=== PATIENT | female | born 1945 | race Caucasian/White ===

== ENCOUNTER 2020-10-01 12:25 | Outpatient (REF) | payer MEDICARE, OTHER, SELFPAY ==
[2020-10-01 14:40] LABS: HCT 40.9 % (36.0-46.0); HGB 13.4 g/dL (11.2-15.7); MCH 30.7 pg (27.0-33.0); MCHC 32.8 % (32.0-36.0); MCV 93.6 fL (80-95); MPV 10.4 fL (8.0-11.0); Platelet Count 300 10^3/uL (130-400); RBC 4.37 10^6/uL (3.93-5.22); RDW 13.5 % (11.7-14.6); RDW-SD 46.8 fL; WBC 7.02 10^3/uL (4.4-10.8)
[2020-10-01 15:03] LABS: Anion Gap 7.2 mmol/L (3-11); BUN 16 mg/dL (7-18); CO2 28.8 mmol/L (21.0-32.0); CREATININE 0.8 mg/dL (0.55-1.02); Calcium 9.1 mg/dL (8.5-10.1); Chloride 103 mmol/L (98-107); Glucose 76 mg/dL (74-106); Potassium 4.3 mmol/L (3.5-5.1); Sodium 139 mmol/L (136-145)
[2020-10-01 15:16] LABS: Bilirubin Negative (Negative); Blood Negative (Negative); Clarity Clear (Clear); Glucose Negative (Negative); Ketones Negative (Negative); Leukocyte Esterase Negative (Negative); Nitrite Negative (Negative); Specific Gravity 1.015 (1.005-1.025); Urobilinogen 0.2 EU/dL (Up TO 0.2); pH 6.5 (5-8)
== END 2020-10-01 12:26 | disposition home or self-care (01) ==
LOC: LBN 12:25
PROVIDERS: Visit Provider Family Medicine
DX: K92.1 Melena (principal); R31.9 Hematuria, unspecified
CPT/HCPCS: 80048; 85027; 81003

== ENCOUNTER 2021-01-02 15:20 | Outpatient (REF) | payer MEDICARE, OTHER, SELFPAY ==
[2021-01-02 15:17] LABS: HCT 37.8 % (36.0-46.0); MCH 30.1 pg (27.0-33.0); MCHC 31.7 % (32.0-36.0); MCV 94.7 fL (80-95); MPV 9.7 fL (8.0-11.0); Platelet Count 499 10^3/uL (130-400); RBC 3.99 10^6/uL (3.93-5.22); RDW 13.9 % (11.7-14.6); RDW-SD 48.3 fL; WBC 8.59 10^3/uL (4.4-10.8)
[2021-01-02 15:51] LABS: Anion Gap 5.6 mmol/L (3-11); BUN 19 mg/dL (7-18); CO2 30.4 mmol/L (21.0-32.0); CREATININE 0.8 mg/dL (0.55-1.02); Calcium 9.6 mg/dL (8.5-10.1); Chloride 105 mmol/L (98-107); Glucose 90 mg/dL (74-106); Potassium 5.4 mmol/L (3.5-5.1); Sodium 141 mmol/L (136-145); TSH (W/Ref FT4) 1.74 uIU/mL (0.36-3.74)
== END 2021-01-02 15:21 | disposition home or self-care (01) ==
LOC: NCHCN 15:20
PROVIDERS: Visit Provider Family Medicine
DX: R00.2 Palpitations (principal)
CPT/HCPCS: 80048; 85027; 84443

== ENCOUNTER 2021-01-22 11:43 | Outpatient (RCR) | payer MEDICARE, OTHER, SELFPAY ==
--- OUTSIDE RECORDS SUMMARY | 2021-01-22 11:46 | XMS_ITS ---
:1945 Author Care Team Providers Name Role Phone DR. ELBA MARIANO Primary Care Provider [phone] DR. ELBA MARIANO Referring Provider [phone] Allergies Code Code System Name Reaction Severity Status Onset Opioids - ? ? Active ? Morphine Analogues 79648 RxNorm Percocet ? ? Active ? Medications Name Status Start Date Stop Date ? ? amoxicillin 500 mg capsule Unknown ? Not a vailable amoxicillin 500 mg-potassium Unknown ? Not available clavulanate 125 mg tablet amoxicillin 875 mg tablet Unknown ? Not av ailable amoxicillin 875 mg-potassium Active ? Not available clavulanate 125 mg tablet aspirin Completed ? 01/24/2019 budesonide 0.5 mg/2 mL suspension for Active ? Not available nebulization Carac 0.5 % topical cream Unknown ? Not av ailable ciprofloxacin 250 mg tablet Active ? Not available ciprofloxacin 500 mg tablet Active ? Not available clonazepam 0.5 mg tablet Active ? Not josefina ilable diclofenac 3 % topical gel Active ? Not a vailable doxepin 10 mg capsule Active ? Not availa ble fluorouracil 5 % topical cream Completed ? 1 03/07/2016 Fluvirin 4765-3831 45 mcg (15 mcg x Unknown ? Not available 3)/0.5 mL intramuscular suspension hydromorphone 2 mg tablet Completed ? 2016 metronidazole 250 mg tablet Completed ? 04/15 metronidazole 500 mg tablet Active ? Not available mirtazapine 15 mg tablet Completed ? 017 omega 3 183.3 mg-dha 75 mg-epa 91.6 mg-fish oil 306 mg capsule A ctive ? Not available Take by oral route. Suprep Bowel Prep Kit 17.5 gram-3.13 Completed ? 01/24/2019 gram-1.6 gram oral solution tobramycin 0.3 %-dexamethasone 0.1 % Active ? Not available eye drops,suspension trazodone 50 mg tablet Completed ? 7 valacyclovir 1 gram tablet Completed ? 01/05 venlafaxine ER 37.5 mg capsule,extended Unknown ? Not available release 24 hr Voltaren 1 % topical gel Unknown ? Not josefina ilable zolpidem 5 mg tablet Unknown ? Not availab le Notes: TUMERIC, VITAMIN D , YESSY MIN B Problems Name Status Onset Date Source ? 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 Plantar Fascial Fibromatosis Active ? Enc ounter Sprain of Foot Active ? Encounter Inflammatory Disorder of Extremity Active ? Encounter Procedures Date Name Performed by ? 02/14/2006 Other Information not avai lable Notes: RIGHT SHLDER 02/15/1996 Knee Surgery Information not avai lable Notes: RIGHT 07/14/2016 XR, Foot, 3 or More View Information not available Results Lab Results None recorded. Past Encounters 12/05/2019 Bunion; Abduction Deformity of Foot; Hyp ermobility Syndrome Bartolome Livingston, DPM: [address] [place] [address], Ph. [phone] Social History Tobacco Smoking Status Never Smoker Vaccine List None recorded. Plan of Care Reminders Provider Appointments None ? ? recorded. Lab None ? ? recorded. Referral None ? ? recorded. Procedures None ? ? recorded. Surgeries None ? ? recorded. Imaging None ? ? recorded. Vitals 03/22/2019 02:00PM Established Patient 15 Height Weight BMI 67 in 126 lbs 16 oz 19.9 kg/m2 01/24/2019 01:30PM Established Patient 15 Height Weight BMI 67 in 126 lbs 16 oz 19.9 kg/m2 05/10/2018 02:30PM Established Patient 30 Height Weight BMI 67 in 126 lbs 16 oz 19.9 kg/m2 01/05/2017 02:00PM Established Patient 30 Height Weight BMI 67 in 130 lbs 20.4 kg/m2 09/15/2016 11:30AM Established Patient 30 Height Weight BMI 67 in 130 lbs 20.4 kg/m2 07/14/2016 02:30PM New Patient 30 Height Weight BMI 67 in 130 lbs 20.4 kg/m2 06/05/2012 02:00PM Established Patient 30 Height Weight BMI 68 in 125 lbs 19 kg/m2 12/17/2010 01:00PM Established Patient 30 Height Weight BMI 68 in 128 lbs 19.5 kg/m2
--- OUTSIDE RECORDS SUMMARY | 2021-01-22 11:46 | XMS_ITS ---
:1945 Author Care Team Providers Name Role Phone Sorin Oleary Primary Care Provider Unavailable Allergies Code Code System Name Reaction Severity Status Onset Opioids - ? ? Active ? Morphine Analogues Medications Name Status Start Date Stop Date ? ? amoxicillin 875 mg-potassium clavulanate Active ? Not available 125 mg tablet Aspir-81 Active ? Not available azithromycin 250 mg tablet Unknown ? Not a vailable clonazepam 0.5 mg tablet Unknown ? Not josefina ilable doxepin 10 mg capsule Active ? Not availa ble erythromycin 5 mg/gram (0.5 %) eye Unknown ? Not available ointment escitalopram 10 mg tablet Unknown ? Not av ailable Fish Oil Active ? Not available mirtazapine 15 mg tablet Unknown ? Not josefina ilable Multi Vitamin Active ? Not available valacyclovir 1 gram tablet Unknown ? Not a vailable vitamin B complex Active ? Not available Vitamin D3 Active ? Not available Voltaren 1 % topical gel Active ? Not josefina ilable Problems Name Status Onset Date Source ? Shoulder Pain Active ? 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 Encounter Disorder of Rotator Cuff Active ? ? Procedures Date Name Performed by ? 02/14/2007 Orthopaedic Surgery Information not betzaida labbrittanie Notes: Rt shldr 02/14/2007 Orthopaedic Surgery Information not angelicaai lable Notes: Rt knee 03/10/2015 MRI, Shoulder [facility] [address] [place], [place] [id number] (Work Place) 03/18/2015 Bone Density Study Information not avai lable 04/24/2015 MRI, Shoulder [facility] [address] [place] [address] (Work Place) Results Lab Results None recorded. Past Encounters None recorded. Social History Tobacco Smoking Status Never Smoker Vaccine List None recorded. Plan of Care Reminders Provider Appointments None ? ? recorded. Lab None ? ? recorded. Referral None ? ? recorded. Procedures None ? ? recorded. Surgeries None ? ? recorded. Imaging None ? ? recorded. Vitals 04/29/2015 09:30AM Established Patient Height Weight BMI 5 ft 7 in 130 lbs 20.4 kg/m2 03/18/2015 09:15AM Established Patient Height Weight BMI 5 ft 8 in 132 lbs 20.1 kg/m2 03/10/2015 10:45AM NEW PATIENT Height Weight BMI 5 ft 8 in 133 lbs 20.2 kg/m2
--- OUTSIDE RECORDS SUMMARY | 2021-01-22 11:46 | XMS_ITS ---
:1945 Author Care Team Providers Name Role Phone DR. MARILUZ VELEZ Primary Care Provider [phone] MARILUZ VELEZ Referring Provider [phone] Allergies Code Code System Name Reaction Severity Status Onset Opioids - ? ? Active ? Morphine Analogues Notes: 08/02/2013: sensitive to narcotics (Active) 08/02/2013; Comment: Recorded 08/02/2013 9:53AM by Andre Dawn, Office Visit; Promoted; Significance:*; Medications Name Status Start Date Stop Date ? ? amoxicillin 875 mg-potassium Completed ? 12/2018 clavulanate 125 mg tablet clonazepam 0.5 mg tablet Completed ? 019 diclofenac 3 % topical gel Active ? Not a vailable doxepin 10 mg capsule Active ? Not availa ble metronidazole 250 mg tablet Completed ? 12/15 Remeron Active ? Not available Suprep Bowel Prep Kit 17.5 gram-3.13 Completed ? 12/25/2018 gram-1.6 gram oral solution Problems Name Status Onset Date Source ? History of Section Active 08/08/2006 Hist ory Osteoarthritis Active 08/02/2013 History Backache Active 08/02/2013 History Procedures None recorded. Results Lab Results None recorded. Past Encounters None recorded. Social History Tobacco Smoking Status Former Smoker Vaccine List None recorded. Plan of Care Reminders Provider Appointments None ? ? recorded. Lab None ? ? recorded. Referral None ? ? recorded. Procedures None ? ? recorded. Surgeries None ? ? recorded. Imaging None ? ? recorded. Vitals 02/06/2019 10:45AM OP/ANTIQUE FINISHER Height Weight BMI 5 ft 7.5 in 130 lbs 20.1 kg/m2 12/25/2018 01:45PM ANTIQUE FINISHER 15 Height Weight BMI 5 ft 7.5 in 128 lbs 19.8 kg/m2
--- NOTE | 2021-01-22 15:30 | HOLTER_ITS ---
APPROVED REPORT Conclusion This is a 48-hour Holter monitor Predominant rhythm was sinus with an average heart rate of 77. Minimum was 59, maximum 111 There were very rare atrial premature beats There were occasional ventricular ectopic beats, rare couplets, no ventricular tachycardia There was no atrial fibrillation, no high-grade AV block, no pauses greater than 3 seconds The patient diary was not returned
== END 2021-02-13 23:59 | disposition home or self-care (01) ==
LOC: RT 11:43
PROVIDERS: Visit Provider Family Medicine
DX: R00.2 Palpitations (principal); I49.3 Ventricular premature depolarization
CPT/HCPCS: 93227; 93225; 93226

== ENCOUNTER 2021-02-12 18:18 | Outpatient (REF) | payer MEDICARE, OTHER, SELFPAY ==
[2021-02-12 19:36] LABS: Anion Gap 4.6 mmol/L (3-11); BUN 17 mg/dL (7-18); CO2 32.4 mmol/L (21.0-32.0); CREATININE 0.7 mg/dL (0.55-1.02); Chloride 103 mmol/L (98-107); Glucose 61 mg/dL (74-106); Potassium 4.1 mmol/L (3.5-5.1); Sodium 140 mmol/L (136-145)
== END 2021-02-12 18:19 | disposition home or self-care (01) ==
LOC: NCHCN 18:18
PROVIDERS: Visit Provider Family Medicine
DX: R00.2 Palpitations (principal)
CPT/HCPCS: 80048

== ENCOUNTER 2021-02-18 13:52 | Emergency (ER) | payer MEDICARE, OTHER, SELFPAY ==
[2021-02-18 13:58] VITALS: BP 104/69; PULSE 75; RESP 14; TEMP 36.7
--- NOTE | 2021-02-18 14:17 | ED.GENADUL_ITS ---
Discharge Plan Disposition Patient Disposition: HOME Condition: Stable Discharge Details Clinical Impression: Finger laceration Primary Care Provider: Alaina,Local ED Provider: Chino Mayorga Home Meds and New Rx's Prescriptions: Continued ibuprofen 600 MG tablet 600 mg PO TID PRN (Reason: Pain) Qty: 20 RF: 0 Discharge Instructions Instructions: Finger Laceration (ED) Additional Instructions: At this time your wound has stopped bleeding and you have declined sutures. Please wear antibiotic dressing and change it daily. Wear splint to avoid bending your finger and tearing open the laceration. Watch for new or worsening symptoms and return to the ER for any concerns Medical Decision Making 76-year-old female presents to the ER for a right index finger laceration. Bleeding is now controlled and she has no additional concerns or complaints. Patient states that given the bleeding is controlled now she does not want sutures. Tetanus status is up-to-date Patient understands that laceration could reopen without proper closure which could delay healing and in turn also increased chance of infection. Patient u nderstands but does not want sutures. The wound was thoroughly cleaned and irrigated. We then placed an antibiotic pressure dressing and finger splint. Patient tolerated well. No additional questions or concerns. Standard discharge and return precautions were were provided This documentation was generated using Nymirum dictation system, please disregard any oddities of phrase or misspellings. Medical Records Medical records reviewed: Yes I reviewed the patient's medical records. HPI General Mode of arrival: ambulatory . Date/Time Provider Initiated Documentation: 02/18/21 14:07 . Limitations to Documentation: no limitations . Information obtained by: patient . HPI Narrative: This is a 76-year-old female, [id number], tetanus status up-to-date, presenting to the ER for evaluation of a right index finger laceration. Patient states that she lacerated her finger on her 's razor roughly 2 hours ago. Reports minimal discomfort. States that she came to the ER because she was having difficulty controlling the bleeding but it is actually stopped bleeding at this time. Denies any other injury, numbness, tingling, weakness. Has not taken any medication prior to arrival Related Data Home Medications Medication Instructions Recorded Confirmed ibuprofen 600 mg PO TID PRN #20 tab 08/15/16 Previous Rx's Medication Instructions Recorded ibuprofen 600 mg PO TID PRN #20 tab 08/15/16 Allergies Allergy/AdvReac Type Severity Reaction Status Date / Time Opioids - Morphine Analogues Allergy Unverified 08/15/16 05:18 Opioids-Meperidine and Allergy Unverified 08/15/16 05:18 Related General Stated Complaint: Laceration DEBBI: 4 Review of Systems Constitutional Constitutional: Denies weakness Musculoskeletal Musculoskeletal: Denies arthralgias, Denies numbness, Denies stiffness and Denies tingling Integumentary/Breasts Skin/Breast: Denies erythema Neurologic Neurologic: Denies numbness, Denies tingling and Denies weakness PFSH All Active Problems Finger laceration (Acute) Social History Smoking/Tobacco Use Status: Never Smoking risk assessment performed?: Yes Alcohol Intake: former Drug use: Never Do you feel safe at home: Yes Do you feel safe in your relationship?: Yes Exam Const General: cooperative, healthy appearing, comfortable and no acute distress Orientation: alert and awake [facility] Head: normal to inspection, normocephalic and atraumatic Eyes General: appearance normal, both eyes and all related structures Conjunctivae: conjunctivae normal Neck Neck: normal visual inspection, trachea midline and supple Resp Effort & Inspection: normal respiratory effort and able to speak in complete sentences Cardio Rate: regular rate Rhythm: regular rhythm Skin General skin exam: no rashes or lesions noted Neuro General: patient alert, patient awake, moves all extremities and no focal motor deficits Speech: speech normal Gait: normal gait Sensory Exam: no sensory deficits noted Extrem General: full ROM and capillary refill normal Hand/finger images: 1. 1 cm well approximated flap laceration. No active bleeding. Only minimal discomfort. Full range of motion, neuro, vascular, tendon intact. Normal capil leonor refill Psych Appearance: grossly normal Mental Status: mental status grossly normal Course Vital Signs Vital signs: Vital Signs Temperature 36.7 C 02/18/21 13:58 Pulse 75 02/18/21 13:58 Respiratory Rate 14 02/18/21 13:58 Blood Pressure 104/69 02/18/21 13:58 Temperature 36.7 C 02/18/21 13:58 Temperature Source Oral 02/18/21 13:58 Pulse 75 02/18/21 13:58 Respiratory Rate 14 02/18/21 13:58 Respiratory Effort 02/18/21 14:08 Blood Pressure 104/69 02/18/21 13:58 Blood Pressure Position Sitting 02/18/21 13:58 Oxygen Delivery Method Room Air 02/18/21 13:58 Oxygen Flow Rate 0 02/18/21 13:58 Pain Level 0 02/18/21 14:12 PAWSS Have you Been Recently Intoxicated or Drunk Within the Last 30 days?: Yes Have you Ever Experienced Previous Episodes of Alcohol Withdrawal?: No Have you ever Experienced Withdrawal Seizures?: No Have you ever Experienced Delirium Tremens(DT)s?: No Have you ever undergone Alcohol Rehabilitation Treatment (i.e, inpt ot outpatient treatment programs)?: No Have you ever Experienced Blackouts?: No Have you ever Combined Alcohol with other Downers within the last 90 days?: No Have you ever Combined Alcohol with any other Substance of Abuse during the last 90 days?: No Positive Blood Alcohol level on Presentation? [PCS.BAL]: No Evidence of Increased Autonomic Activity (i.e. HR>120, tremor, sweating, agitation, nausea)?: No Result: 1
== END 2021-02-18 14:52 | disposition home or self-care (01) ==
PROVIDERS: Emergency Provider Physician Assistant
DX: S61.210A Laceration without foreign body of right index finger without damage to nail, initial encounter (principal); W26.8XXA Contact with other sharp object(s), not elsewhere classified, initial encounter
CPT/HCPCS: 29130; 99283; 99282

== ENCOUNTER 2021-07-22 20:12 | Outpatient (REF) | payer MEDICARE, OTHER, SELFPAY ==
--- OUTSIDE RECORDS SUMMARY | 2021-07-22 20:16 | XMS_ITS | Encounter Summary ---
:1945 Author Organization [facility] Address [address] [facility], [address] [place] [address] Care Team Providers Name Role Phone Kevin Miranda MD Primary Care Provider Encounter Details Date Type Department Care Team Description 11/19/2020 Scan Document - View Paula Funk, in Chart Practice [address] [place], [place] [id number] [place], [place] [phone] Social History Tobacco Use Types Packs/Day Years Used Date Former Smoker Smokeless Tobacco: Never Used Alcohol Use Standard Drinks/Week Comments Yes 5 (1 standard drink = 0.6 oz pure alcoho l) Sex Assigned at Date Recorded Female 04/12/2019 2:19 PM EST documented as of this encounter Plan of Treatment Not on filedocumented as of this encounter Visit Diagnoses Not on filedocumented in this encounter Care Teams Hospital Insurance Representative Relationship Specialty Start Date End Date Kevin Miranda MD PCP - General Family Medicine 11/20/[address] [place] [address] documented as of this encounter
--- OUTSIDE RECORDS SUMMARY | 2021-07-22 20:16 | XMS_ITS | Encounter Summary ---
:1945 Author Organization [facility] Address [address] [facility], [address] [place] [address] Care Team Providers Name Role Phone Kevin Miranda MD Primary Care Provider Encounter Details Date Type Department Care Team Description 08/14/2020 Telephone [facility] Pr actice Hanh Kelly [place] [address] [place] [address] Social History Tobacco Use Types Packs/Day Years Used Date Former Smoker Smokeless Tobacco: Never Used Alcohol Use Standard Drinks/Week Comments Yes 5 (1 standard drink = 0.6 oz pure alcoho l) Sex Assigned at Date Recorded Female 04/12/2019 2:19 PM EST documented as of this encounter Miscellaneous Notes Telephone Encounter - Hanh Kelly MA - 08/14/2020 9:20 AM EDT spk with patient about her recent Mammo It was negative for malignancy (normal). There were some benign calcifications and dense breasts noted, similar to the past. documented in this encounter Plan of Treatment Not on filedocumented as of this encounter Visit Diagnoses Not on filedocumented in this encounter Care Teams Manager Fiber Relationship Specialty Start Date End Date Kevin Miranda MD PCP - General Family Medicine 11/20/19 [address] [place] [address] documented as of this encounter
--- OUTSIDE RECORDS SUMMARY | 2021-07-22 20:16 | XMS_ITS | Encounter Summary ---
:1945 Author Organization [facility] Address [address] [facility], [address] [place] [address] Care Team Providers Name Role Phone Kevin Miranda MD Primary Care Provider Encounter Details Date Type Department Care Team Description 09/10/2020 Scan Document - View [facility] Kevin Miranda, in Chart Practice [address] [place], [place] [address] [place], [place] [phone] Social History Tobacco Use Types Packs/Day Years [...] on filedocumented in this encounter Care Teams Board Winder Relationship Specialty Start Date End Date Kevin Miranda MD PCP - General Family Medicine 11/20/[address] [place] [address] documented as of this encounter
--- OUTSIDE RECORDS SUMMARY | 2021-07-22 20:16 | XMS_ITS | Encounter Summary ---
:1945 Author Organization [facility] Address [address] [facility], [address] [place] [address] Care Team Providers Name Role Phone Kevin Miranda MD Primary Care Provider Encounter Details Date Type Department Care Team Description 12/07/2020 Scan Document - View [facility]aus[facility]ik [facility] Kevin Miranda, in Chart Practice [address] [place], [place] [address] [place], [place] [phone] Social History Tobacco Use Types Packs/Day Years [...] on filedocumented in this encounter Care Teams Crab Fisherman Relationship Specialty Start Date End Date Kevin Miranda MD PCP - General Family Medicine 11/20/[address] [place] [address] documented as of this encounter
--- OUTSIDE RECORDS SUMMARY | 2021-07-22 20:16 | XMS_ITS | Encounter Summary ---
:1945 Author Organization [facility] Address [address] [facility], [address] [place] [address] Care Team Providers Name Role Phone Kevin Miranda MD Primary Care Provider Encounter Details Date Type Department Care Team Description 04/02/2021 Refill [facility] Pr actice Kevin Miranda MD [address] [place] [address] [place] [address] [phone] (Wo rk) Social History Tobacco Use Types Packs/Day Years [...] on filedocumented in this encounter Care Teams Torch Cutter Relationship Specialty Start Date End Date Kevin Miranda MD PCP - General Family Medicine 11/20/[address] [place] [address] documented as of this encounter
--- OUTSIDE RECORDS SUMMARY | 2021-07-22 20:16 | XMS_ITS | Encounter Summary ---
:1945 Author Organization [facility] Address [address] [facility], [address] [place] [address] Care Team Providers Name Role Phone Kevin Miranda MD Primary Care Provider Encounter Details Date Type Department Care Team Description 01/27/2021 Orders Only [facility] actice Provider, MD Harsh [address] [place], [place] [address] [place] [address] [phone] Social History Tobacco Use Types Packs/Day Years Used Date Former Smoker Smokeless Tobacco: Never Used Alcohol Use Standard Drinks/Week Comments Yes 5 (1 standard drink = 0.6 oz pure alcoho l) Sex Assigned at Date Recorded Female 04/12/2019 2:19 PM EST documented as of this encounter Plan of Treatment Not on filedocumented as of this encounter Procedures Procedure Name Priority Date/Time Associated Diagnosis Comme nts MAMMOGRAPHY Routine 07/29/2020 documented in this encounter Results MAMMOGRAPHY (07/29/2020) Anatomical Region Laterality Modality Other Narrative This result has an attachment that is no t available. Historical Provider HEALTH MAINTENANCE documented in this encounter Visit Diagnoses Not on filedocumented in this encounter Care Teams Assistant Auto Center Manager Relationship Specialty Start Date End Date Kevin Miranda MD PCP - General Family Medicine 11/20/[address] [place] [phone] documented as of this encounter
--- OUTSIDE RECORDS SUMMARY | 2021-07-22 20:16 | XMS_ITS | Encounter Summary ---
:1945 Author Organization [facility] Address [address] [facility], [address] [place] [address] Care Team Providers Name Role Phone Kevin Miranda MD Primary Care Provider Encounter Details Date Type Department Care Team Description 04/21/2021 Scan Document - View [facility] Kevin Miranda, in Chart Practice [address] [place], [place] [id number] [place], [place] [phone] Social History Tobacco Use Types Packs/Day Years [...] on filedocumented in this encounter Care Teams Galvanometer Assembler Relationship Specialty Start Date End Date Kevin Miranda MD PCP - General Family Medicine 11/20/[address] [place] [address] documented as of this encounter
--- OUTSIDE RECORDS SUMMARY | 2021-07-22 20:16 | XMS_ITS | Encounter Summary ---
:1945 Author Organization [facility] Address [address], [address] [place] [address] Care Team Providers Name Role Phone Kevin Miranda MD Primary Care Provider Encounter Details Date Type Department Care Team Description 12/04/2020 Consult [facility] Kevin Miarnda MD Pre-operative examination (Primary Dx); Practice [address] [place] [address] PVC (premature ventricular contraction) [facility] [place] [id number] [phone] Social History Tobacco Use Types Packs/Day Years Used Date Former Smoker Smokeless Tobacco: Never Used Alcohol Use Standard Drinks/Week Comments Yes 5 (1 standard drink = 0.6 oz pure alcoho l) Sex Assigned at Date Recorded Female 04/12/2019 2:19 PM EST documented as of this encounter Last Filed Vital Signs Vital Sign Reading Time Taken Comments Blood Pressure 98/74 12/04/2020 3:05 PM EDT Pulse 75 12/04/2020 3:05 PM EDT Temperature 36.4 ??C (97.5 ??F) 12/04/2020 3:05 PM EDT Respiratory Rate - - Oxygen Saturation 98% 12/04/2020 3:05 PM EDT Inhaled Oxygen Concentration - - Weight 57.4 kg (126 lb 9.6 oz) 12/04/2020 3:05 PM EDT Height - - Body Mass Index 19.83 12/05/2019 10:03 AM EDT documented in this encounter Progress Notes Kevin Miranda MD - 12/04/2020 3:00 PM EDT Subjective Patient ID: Molly Rios is a 75 y.o. female. HPI 75 y/o F w/ history of osteoarthritis of right hip presents for preop evaluation prior to a scheduled anterior right hip replacement with Dr. Chávez on 12/16 at [facility] ([place], [place]). She had a pre-op EKG and lab work done with Dr. Chávez 1 month ago. She now has bursitis in her left hip and intermittent back pain from altering her gait to accommodate for her right hip. 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 Looks forward to swimming without hip pain. She has a history of diverticulitis and is concerned about constipation post-op. Planning on taking Miralax leading up to her surgery to help mitigate this, which has been effective previously. She notes feeling of a dropped beat when taking her pulse over the weekend, no palpitations or chestpain. Was having stress with family member at the time and may have been related. The following portions of the patient's history were reviewed and updated as appropriate: allergies,current medications, past medical history, past surgical history, past family history, past social history and problem list. Review of Systems Constitutional: Negative for chills, fatigue and fever. HENT: Negative for congestion, ear pain, rhinorrhea and sore throat. Eyes: Negative for visual disturbance. Respiratory: Negative for cough, chest tightness and shortness of breath. Cardiovascular: Negative for chest pain, palpitations and leg swelling. + feeling of missed beat when taking her pulse Gastrointestinal: Negative for abdominal pain, constipation, diarrhea, nausea and vomiting. Genitourinary: Negative for dysuria, frequency and urgency. Musculoskeletal: Positive for back pain. Negative for neck pain. + chronic right hip pain + new left hip pain due to bursitis Skin: Negative for rash. Neurological: Negative for dizziness, light-headedness and headaches. Psychiatric/Behavioral: Negative for dysphoric mood and sleep disturbance. The patient is not nervous/anxious. Objective Physical Exam Vitals reviewed. Constitutional: General: She is not in acute distress. Appearance: Normal appearance. She is not ill-appearing. HENT: Head: Normocephalic and atraumatic. Eyes: Extraocular Movements: Extraocular movements intact. Pupils: Pupils are equal, round, and reactive to light. Cardiovascular: Rate and Rhythm: Normal rate and regular rhythm. Heart sounds: No murmur heard. No friction rub. No gallop. Pulmonary: Effort: Pulmonary effort is normal. No respiratory distress. Breath sounds: Normal breath sounds. No stridor. No wheezing, rhonchi or rales. Musculoskeletal: General: Normal range of motion. Right lower leg: No edema. Left lower leg: No edema. Skin: General: Skin is warm and dry. Neurological: General: No focal deficit present. Mental Status: She is alert and oriented to person, place, and time. Mental status is at baseline. Psychiatric: Mood and Affect: Mood normal. Behavior: Behavior normal. ECG: normal sinus rhythm, normal axis, intervals, morphology, no ischemic changes, single PVC noted followed, otherwise normal ECG Assessment/Plan Problem List Items Addressed This Visit None Visit Diagnoses Pre-operative examination - Primary Patient is medically cleared for the proposed surgery, right hip arthroplasty with Dr. Chávez on 12/16/20. Her recent labs were reviewed. Relevant Orders EKG PVC (premature ventricular contraction) Reassured patient regarding EKG results. Discussed these are often correlated with stress, alcohol and caffeine intake. Encouraged moderation of these and continued regular exercise. Patient educated about signs/symptoms necessitating return to clinic or ER evaluation including lightheadedness/dizziness, shortness of breath, heart palpitations, or chest pain. Relevant Orders EKG 35 minutes were spent on the day of this visit in preparation, evaluation, management, counseling, care coordination, and/or documentation. Kevin Miranda MD This documentation serves as a record of the services and decisions personally performed by Kevin Miranda MD. It was created by Yadi Damon and was based on the provider's statements to me. documented in this encounter Plan of Treatment Not on filedocumented as of this encounter Procedures Procedure Name Priority Date/Time Associated Diagnosis Comme nts EKG Routine 12/04/2020 Pre-operative ex amination PVC (premature ventricular c ontraction) documented in this encounter Results EKG (12/04/2020) Narrative This result has an attachment that is no t available. Kevin Miranda MD ECG ORDERABLES documented in this encounter Visit Diagnoses Diagnosis Pre-operative examination - Primary Unspecified pre-operative examination PVC (premature ventricular contraction) Other premature beats documented in this encounter Care Teams Contact Center Director Relationship Specialty Start Date End Date Kevin Miranda MD PCP - General Family Medicine 11/20/19 [facility] [place] [address] documented as of this encounter
--- OUTSIDE RECORDS SUMMARY | 2021-07-22 20:16 | XMS_ITS | Encounter Summary ---
:1945 Author Organization [facility] Address [address], [address] [place] [address] Care Team Providers Name Role Phone Kevin Miranda MD Primary Care Provider Reason for Visit Reason Onset Date Comments Med Refill 09/30/2020 Encounter Details Date Type Department Care Team Description 09/30/2020 Refill [facility] Pr actice Kevin Miranda MD [facility] [address] [address] [place] [address] [phone] (Wo rk) Social History Tobacco Use Types [...] on filedocumented in this encounter Care Teams [employer]over Relationship Specialty Start Date End Date Kevin Miranda MD PCP - General Family Medicine 11/20/[address] [place] [id number] documented as of this encounter
--- OUTSIDE RECORDS SUMMARY | 2021-07-22 20:16 | XMS_ITS | Clinical Summary ---
:1945 Author Organization [facility] Address [address], [address] [place] [address] Care Team Providers Name Role Phone Kevin Miranda MD Primary Care Provider Allergies Active Allergy Reactions Severity Noted Date Comments Hydrocodone-Acetaminophen Other (see comments) Medium 008 flushing & hives Opioids - Morphine Analogues Oxycodone Other (see comments) Medium 03/31/2007 flushin g & hives Medications Medication Sig Dispensed Refills Start Date End Date Status calcium carbonate Take 1 tablet by 0 Active (CALCIUM 500) 500 mg mouth daily. calcium (1,250 mg) chewable tablet b complex vitamins Take 1 capsule 0 Active capsule by mouth daily. omega-3 fatty Take 1 g by 0 Acti ve acids-fish oil (FISH mouth daily. OIL) 300-1,000 mg capsule TURMERIC (CURCUMIN daily. 0 A ctive MISC) calcium Take 1 Dose by 0 Activ e citrate/vitamin D3 mouth. Pt takes (CITRACAL REGULAR 1 teaspoon a day ORAL) in water. POLYETHYLENE GLYCOL Take 17 g by 0 Active 3350 ORAL mouth daily. Pt takes 1 dose prn Vitamin D3 Take by mouth 0 Activ e daily. doxepin 6 mg Take 6 mg by 90 tablet 3 06/05/2020 Act sarmad tabletIndications: mouth nightly. Insomnia, unspecified type meloxicam (MOBIC) 15 Take 15 mg by 0 11/16/2020 Active mg tablet mouth daily as needed. For hip pain omeprazole (PriLOSEC) TAKE ONE CAPSULE 0 10/01/2020 Active 20 mg capsule BY MOUTH EVERY DAY FOR A MONTH THEN NEEDED WITH NSAIDS clonazePAM (KlonoPIN) Take 1 tablet 20 tablet 0 04/02/2021 Active 0.5 mg tablet (0.5 mg total) by mouth nightly as needed for anxiety. doxycycline hyclate Take 2 capsules 2 capsule 0 07/09/2021 (VIBRAMYCIN) 100 mg (200 mg total) capsuleIndications: by mouth once Tick bite of right for 1 dose. thigh, initial encounter Active Problems Problem Noted Date Diverticulitis of large intestine with abscess without bleeding 12/05/2019 Hiatal hernia 01/22/2019 Tinnitus of right ear 01/22/2019 Primary osteoarthritis of right hip 11/30/2018 Last Assessment & Plan: Formatting of th is note might be different from the original. Addressed surgical questions to the best of my ability, no preference between approaches, more important that she is comfortable with the surgeon. She may pursue another opinion with Dr. Angle at [facility] for another anterior approach option. Continue diclofenac 75 mg BID PRN pain. Agree with PT prior to surgery as well and provided referral. Acute left ankle pain 11/30/2018 Last Assessment & Plan: Formatting of th is note might be different from the original. Likely 2/2 strain Less likely fracture Encourage to wear supportive shoes, hard sole with good ankle support Continue w/ ice BID Tylenol 650mg q 6 hours Continue with stretching and exercise Disorder of rotator cuff 03/22/2018 Dense breasts 01/16/2018 Diverticulitis 12/26/2017 Last Assessment & Plan: Formatting of th is note might be different from the original. Stable after recent flare. Continue trent lax and fiber regimen. F/u with Dr. Gorman ([facility] gastroenterology) for routine f/u and colonoscopy. Lateral knee pain, left 06/24/2017 Radiculopathy, lumbar region 06/12/2017 Overview: Evaluated and followed by : [facility], Rt. Hip, and Ancelmo. Leg Pain, Rt. Leg Worse, and Rt. Foot Tingling, on occasion Anxiety and depression 03/31/2017 Overview: Perusal of old chart reveals that she wa s started on Venlafaxine 37.5 mg dailyby psychopharmacologist in 2004 for depression, related to son's mental health and substance abuse problems.. In 2008 Our no te note says she had little effect from it, nor from Sertraline, and she was given Escitalopram, which made her more anxious, so she stopped it. It appears she stayed on Venlafaxine for awhile, tap;ered it slowly to stop. By 03/2010 she is carlo ing 0.5 mg Clonazepam daily and was started on Citalopram 5 mg daily (very sensitive to meds), which made her drowsy, didn't help depression (soon was still in cr day) and med was changed to Fluoxetine 10 mg daily. 12/2011 HENRI is is taking Sertraline 12.5-25 mg daily. Remeron 15 mg was started for sleep problems, which compounded her depression and anxiety 4. Doxepin was tired 02/2015 to help her sleep through the night and not ruminate when she woke up middle of the night She has seen Sorin Gage MD and Leandra Parry, pHD for mental health issues. Rosacea 03/31/2017 Overview: Just diagnosed by Dr. Rosenberg, who prescr ibed Metrogel cream. She is upset that hse might have to treat the condition for life. Some thought that Retin-A cream she used in the past might have triggered t his. I tried to reassure her that having rosacea (nor flagrantly noticeable) is not somethng to get upset about, in the big scheme of things. Routine adult health maintenance 03/17/2017 Last Assessment & Plan: Formatting of th is note might be different from the original. Tdap today. Next time here can discuss S hingrix Other emphysema 12/06/2016 Overview: PFT's 11/30 with mild obstruction, no br onchoreversibility, and mild diffusion abnormality. NO cigs since 1984, 20 yr pack hx. Mother and brother from emphysema, both smokers. Last Assessment & Plan: Dx via PFT in 11/30, mild obstruction. S he has rare exertional dyspnea, attributes it more to deconditioning. Never required treatment. She quit smoking 1984. GERD (gastroesophageal reflux disease) 09/20/2016 Last Assessment & Plan: Formatting of th is note might be different from the original. Symptoms rare, managed with Tums PRN IBS (irritable bowel syndrome) 09/20/2016 Insomnia 09/20/2016 Last Assessment & Plan: Formatting of th is note might be different from the original. Well controlled on doxepin 10 mg and jen nazepam 0.125 mg nightly for many years. Agree with a goal of tapering medication as tolerated. Start by decreasing doxepin to 6 mg QHS for 1 month, and if well t olerated, may decrease further to 3 mg n ightly or discontinue. Follow up as needed. Plantar fasciitis 09/20/2016 Diverticulosis 09/20/2016 Overview: Severe Last Assessment & Plan: In the last year, patient had a prolonge d episode of diverticulitis that required 3 rounds of antibiotics. Her recent symptoms of GI discomfort may have been a mild flare that resolved on its own vs a s elf-limited gastroenteritis. We discusse d a high fiber diet and monitoring for symptoms like fever, pain, change in bowel movements, and encouraged her to come in early with any symptoms or concerns. Osteopenia 09/20/2016 Overview: Femoral neck 2016 Last Assessment & Plan: Mild in 2018; plan to repeat 3-5 years. Continue Ca/Vit D. 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 05/10/2016 Osteoarthritis 05/06/2014 Overview: Osteoarthritis Depressive disorder 06/09/2012 Overview: Depression Deviated nasal septum 06/09/2012 Overview: Deviated nasal septum Dry eyes 01/04/2012 Overview: Dry eyes Strabismus 01/04/2012 Overview: Strabismus Chronic sinusitis 01/04/2012 Overview: Chronic sinusitis Varicose veins 08/10/1990 Amblyopia 07/13/1988 Overview: Amblyopia Resolved Problems Problem Noted Date Resolved Date Diverticulitis of intestine with abscess 04/13/2019 11/23/2019 Pericolonic abscess 04/13/2019 11/23/2019 Tendinopathy of left gluteus medius 06/04/201810/2019 Traumatic closed nondisplaced fracture of acromial end of 11/23/2019 clavicle with delayed healing Fracture of left clavicle 09/20/2016 11/23/2019 H/O corneal abrasion 05/03/2013 11/23/2019 Overview: H/O Corneal abrasion; OD Encounters Date Type Specialty Care Team Description 07/09/2021 Telemedicine Family Medicine [place], Tick bite of right MONAE Grullon thigh, initial encounter (Prim arlette Dx) 04/21/2021 Scan Document - View in Family Medicine Christiana Miranda MD from Last 3 Months Immunizations Name Administration Dates Next Due DT 10/25/1984 FLU VACCINE QUADRIVALENT 11/23/2018, 01/14/2017 Pneumococcal Conjugate 13-Valent ([id number]) 06/05/2014 Pneumococcal Polysaccharide 04/03/2013 QUADRIVALENT FLU 0.5 ML MDV 11/23/2019 Shingrix (Zoster Recombinant) 03/15/2020, 01/02/2020 Td 03/07/2006, 08/14/2000 Tdap 03/17/2017 Zoster (Zostavax) 12/16/2011 Family History Medical History Relation Comments Emphysema Brother 1 at 57, smoker Coronary artery disease Brother 2 twin of patient. CABG at 64 Cancer Father neck Emphysema Mother at 64, smoker Drug abuse Son born 1972, lives wit h his parents Colon cancer Neg Hx Relation Status Comments Brother 1 Brother 2 Father Mother Son Alive Social History Tobacco Use Types Packs/Day Years Used Date Former Smoker Smokeless Tobacco: Never Used Alcohol Use Standard Drinks/Week Comments Yes 5 (1 standard drink = 0.6 oz pure alcoho l) Sex Assigned at Date Recorded Female 04/12/2019 2:19 PM EST Last Filed Vital Signs Vital Sign Reading Time Taken Comments Blood Pressure 98/74 12/04/2020 3:05 PM EDT Pulse 75 12/04/2020 3:05 PM EDT Temperature 36.4 ??C (97.5 ??F) 12/04/2020 3:05 PM EDT Respiratory Rate 16 04/14/2019 7:57 AM EST Oxygen Saturation 98% 12/04/2020 3:05 PM EDT Inhaled Oxygen Concentration - - Weight 57.4 kg (126 lb 9.6 oz) 12/04/2020 3:05 PM EDT Height 170.2 cm (5' 7) 12/05/2019 10:03 AM EDT Body Mass Index 19.83 12/05/2019 10:03 AM EDT Plan of Treatment Health Maintenance Due Date Last Done Comments CoVid-19 Vaccine (#1) 02/04/1950 Hepatitis C Screening 1963 Periodic Health Exam 11/22/2020 11/23/2019, 06/08/2018, 03/17/2017, Additional history exists Breast Cancer Screening 07/29/2021 07/29/2020, 07/29/2020, 02/12/2019, Additional history exists Influenza (Seasonal) 09/14/2021 11/23/2019, 11/23/2018, 01/14/2017 Osteoporosis Screening 03/25/2025 03/25/2020, 01/18/2018, 12/03/2015, Additional history exists Tetanus Diphtheria and 03/17/2027 03/17/2017, 03/07/2006, Pertussis Vaccines (TD and 08/14/2000, Additiona l TDaP) (4 - Td or Tdap) history exists Colon Cancer Screening 12/06/2028 12/06/2018, 10/28/2015 Pneumococcal PCV13 0-5 YRS Aged Out 06/05/2014 No lo nger eligible based on patient 's age to complete this topic Shingrix (Zoster Completed 03/15/2020, 01/02/2020 Recombinant) Vaccine HIB Vaccines Aged Out No longer eligib le based on patient 's age to complete this topic HPV Vaccines Aged Out No longer eligib le based on patient 's age to complete this topic IPV Vaccines Aged Out No longer eligib le based on patient 's age to complete this topic Meningococcal Vaccine Aged Out No longer eligible based on patient 's age to complete this topic Insurance Payer Benefit Plan Subscriber ID Effective Phone Address Typ e / Group Dates BLUE CROSS VINI CROSS [id number] 2013-Pres [phone] [facility] MEDEX CLAIMS ent [phone] [place] [address] MEDICARE MEDICARE A&B [id number] 2013-Pre [phone] Medicare sent [address] [place] [address] MEDICARE MEDICARE A&B [id number] 2013-Pre [phone] Medicare sent [address] [place] [address] MEDICARE MEDICARE A&B [id number] 2013-Pres [phone] Medicare ent [address] [place] [address] BLUE TABITHA MARTINI CROSS [id number] 2013-Pres [phone] [facility] BLUE ent [phone] [place] [address] [facility] [id number] 2020-Pres [phone] [address] Medi care [employer] ent [id number] [place] [address] Gee Rios Personal/Famil Self 1945 [address] [place], [place] Gee Rios Personal/Famil Self 1945 [address] [place] [address] Gee Rios Personal/Famil Self 1945 [address] [place] [address] Gabriel,Catherin Personal/Famil Self 1945 [address]) [place] [address] Gabriel,Catherin Personal/Famil Self 1945 [address] [place] [address] Gabriel,Catherin Personal/Famil Self 1945 [address] [place] [address] Gabriel,Catherin Personal/Famil Self 1945 [address]) [place] [address] Gabriel,Catherin Personal/Famil Self 1945 [address] [place] [address] Gabriel,Catherin Personal/Famil Self 1945 [address] [place] [address] Gabriel,Catherin Personal/Famil Self 1945 [address]) [place] [id number] Gabriel,Catherin Personal/Famil Self 1945 [address]) [place] [address] Gabriel,Catherin Personal/Famil Self 1945 [address] [place] [address] Gabriel,Catherin Personal/Famil Self 1945 [address] [place] [address] Gabriel,Catherin Personal/Famil Self 1945 [address] [place] [address] Gabriel,Catherin Personal/Famil Self 1945 [address]) [place] [id number] Gabriel,Catherin Personal/Famil Self 1945 [address]) [place] [address] Gabriel,Catherin Personal/Famil Self 1945 [address]) [place] [address] Gabriel,Catherin Personal/Famil Self 1945 [address]) [place] [address] Gabriel,Catherin Personal/Famil Self 1945 [address]Home) [place] [address] Gabriel,Catherin Personal/Famil Self 1945 [address]) [place] [address] Gabriel,Catherin Personal/Famil Self 1945 [address]) [place] [address] Gabriel,Catherin Personal/Famil Self 1945 [address]) [place] [address] Gabriel,Catherin Personal/Famil Self 1945 [address]) [place] [address] Gabriel,Catherin Personal/Famil Self 1945 [address]) [place] [address] Gabriel,Catherin Personal/Famil Self 1945 [address]) [place] [address] Gabriel,Catherin Personal/Famil Self 1945 [address]) [place] [address] Gabriel,Catherin Personal/Famil Self 1945 [address]) [place] [address] Gabriel,Catherin Personal/Famil Self 1945 [address]Home) [place] [address] Gabriel,Catherin Personal/Famil Self 1945 [address]) [place] [address] Gabriel,Catherin Personal/Famil Self 1945 [address]) [place] [address] Gabriel,Catherin Personal/Famil Self 1945 [address]) [place] [address] Gabriel,Catherin Personal/Famil Self 1945 [address]) [place] [address] Gabriel,Catherin Personal/Famil Self 1945 [address]) [place] [address] Gabriel,Catherin Personal/Famil Self 1945 [address]) [place] [address] Gabriel,Catherin Personal/Famil Self 1945 [address]) [place] [id number] Gabriel,Catherin Personal/Famil Self 1945 [address]) [place] [address] Gabriel,Catherin Personal/Famil Self 1945 [address]) [place] [address] Gabriel,Catherin Personal/Famil Self 1945 [address]) [place] [address] Gabriel,Catherin Personal/Famil Self 1945 [address]) [place] [address] Gabriel,Catherin Personal/Famil Self 1945 [address]) [place] [id number] Gabriel,Catherin Personal/Famil Self 1945 [address]) [place] [address] Gabriel,Catherin Personal/Famil Self 1945 [address]) [place] [address] Gabriel,Catherin Personal/Famil Self 1945 [address]) [place] [address] GabrielCatherin Personal/Famil Self 1945 [address]) [place] [address] GabrielCathberto Personal/Famil Self 1945 [address]) [place] [address] Gee Rios Personal/Famil Self 1945 [address]) [place] [address] Advance Directives Latest Code Status on File Code Status Date Activated Date Inactivated Comments Full Code 04/13/2019 5:03 PM 04/14/2019 5:14 PM Care Teams Salvage Diver Relationship Specialty Start Date End Date Kevin Miranda MD PCP - General Family Medicine 11/20/[address] [place] [id number]
--- OUTSIDE RECORDS SUMMARY | 2021-07-22 20:16 | XMS_ITS | Encounter Summary ---
:1945 Author Organization [facility] Address [address], [address] [place] [address] Care Team Providers Name Role Phone Kevin Miranda MD Primary Care Provider Encounter Details Date Type Department Care Team Description 10/16/2020 Scan Document - View [facility] Kevin Miranda, in Chart Practice [address] [place], [place] [id number] [place], [place] [phone] [id number] Social History Tobacco Use Types Packs/Day Years [...] on filedocumented in this encounter Care Teams Retirement Assistant Relationship Specialty Start Date End Date Kevin Miranda MD PCP - General Family Medicine 11/20/[address] [place] [id number] documented as of this encounter
--- OUTSIDE RECORDS SUMMARY | 2021-07-22 20:17 | XMS_ITS | Encounter Summary ---
:1945 Author Organization [facility] Address [address] [facility], [address] [place] [address] Care Team Providers Name Role Phone Kevin Miranda MD Primary Care Provider Encounter Details Date Type Department Care Team Description 11/23/2019 Travel Social History Tobacco Use Types Packs/Day Years Used Date Former Smoker Smokeless Tobacco: Never Used Alcohol Use Standard Drinks/Week Comments Yes 5 (1 standard drink = 0.6 oz pure alcoho l) Sex Assigned at Date Recorded Female 04/12/2019 2:19 PM EST COVID-19 Exposure Response Date Recorded In the last month, have you been in contact with No / Unsure 11/23/2019 1:24 PM EDT someone who was confirmed or suspected to have Coronavirus / COVID-19? documented as of this encounter Plan of Treatment Not on filedocumented as of this encounter Visit Diagnoses Not on filedocumented in this encounter Care Teams Recruitment Internship Relationship Specialty Start Date End Date Kevin Miranda MD PCP - General Family Medicine 11/20/[address] [place] [id number] documented as of this encounter
--- OUTSIDE RECORDS SUMMARY | 2021-07-22 20:17 | XMS_ITS | Encounter Summary ---
:1945 Author Organization [facility] Address [address] [facility], [address] [place] [address] Care Team Providers Name Role Phone Laurie Elias JUNIOR WEB DEVELOPER Primary Care Provider Encounter Details Date Type Department Care Team Description 02/06/2019 Scan Document - View [facility] Paula Miranda in Chart Practice [address] [place], [place] [id number] [place], [place] [phone] Social History Tobacco Use Types Packs/Day Years [...] on filedocumented in this encounter Care Teams Surgery Technician Relationship Specialty Start Date End Date Laurie Elias, ANN PCP - General Family Medicine 03/02/18 11/19/[address] [place] [address] documented as of this encounter
--- OUTSIDE RECORDS SUMMARY | 2021-07-22 20:17 | XMS_ITS | Encounter Summary ---
:1945 Author Organization [facility] Address [address] [facility], [address] [place] [address] Care Team Providers Name Role Phone Laurie Elias NP Primary Care Provider Reason for Referral Diagnostic Imaging (Routine) - Closed Specialty Diagnoses / Procedures Referred By Contact Refer red To Contact Radiology Diagnoses Diverticulitis Kevin Miranda MD Procedures CT Abdomen Pelvis with Contrast [address] [place] [address] Referral ID Status Reason Start Date Expiration Date Visits Requ ested Visits Authorized [id number] Closed 04/12/2019 04/11/2020 1 1 Reason for Visit Auth/Cert Specialty Diagnoses / Procedures Referred By Contact Refer red To Contact Diagnoses Pericolonic abscess Procedures n/a Referral ID Status Reason Start Date Expiration Date Visits Requ ested Visits Authorized [id number] 1 1 Encounter Details Date Type Department Care Team Description 04/12/2019 Hospital Encounter [facility] Charli Miranda, Diverticulitis CT Scan [address] [place] [address] [phone] Social History Tobacco Use Types Packs/Day Years Used Date Former Smoker Smokeless Tobacco: Never Used Alcohol Use Standard Drinks/Week Comments Yes 5 (1 standard drink = 0.6 oz pure alcoho l) Sex Assigned at Date Recorded Female 04/12/2019 2:19 PM EST documented as of this encounter Medications at Time of Discharge Medication Sig Dispensed Refills Start Date End Date b complex vitamins Take 1 capsule by 0 capsule mouth daily. calcium carbonate Take 1 tablet by 0 (CALCIUM 500) 500 mg mouth daily. calcium (1,250 mg) chewable tablet calcium citrate/vitamin Take 1 Dose by 0 D3 (CITRACAL REGULAR mouth. Pt takes 1 ORAL) teaspoon a day in water. omega-3 fatty acids-fish Take 1 g by mouth 0 oil (FISH OIL) 300-1,000 daily. mg capsule POLYETHYLENE GLYCOL 3350 Take 17 g by mouth 0 ORAL daily. Pt takes 1 dose prn TURMERIC (CURCUMIN MISC) daily. 0 amoxicillin-pot Take 1 tablet by 14 tablet 0 04/09/2019 clavulanate (AUGMENTIN) mouth 2 (two) times 875-125 mg per a day for 7 days. tabletIndications: Acute cystitis with hematuria, Diverticulitis ciprofloxacin (CIPRO) 250 Take 1 tablet (250 14 tablet 0 04/14/2019 mg tabletIndications: mg total) by mouth Diverticulitis 2 (two) times a day for 7 days. clonazePAM (KlonoPIN) 0.5 Take 1 tablet (0.5 20 tablet 0 07/04/2019 mg tablet mg total) by mouth nightly as needed for anxiety. doxepin (SINEquan) 10 mg Take 1 capsule (10 90 capsule 0 06/06/2019 capsule mg total) by mouth nightly. metroNIDAZOLE (FLAGYL) Take 1 tablet (500 21 tablet 0 04/1204/14/2019 500 mg tabletIndications: mg total) by mouth Diverticulitis 3 (three) times a day for 7 days. documented as of this encounter Plan of Treatment Not on filedocumented as of this encounter Procedures Procedure Name Priority Date/Time Associated Diagnosis Comme nts CT ABDOMEN PELVIS W Routine 04/12/2019 4:50 PM Diverticulitis Results for this CONTRAST EST procedure are i n the results section. documented in this encounter Results CT Abdomen Pelvis with Contrast (04/12/2019 4:50 PM EST) Anatomical Region Laterality Modality Abdomen, Pelvis N/A Computed Tomography Specimen (Source) Anatomical Collection Method Collection Time Re ceived Time Location / / Volume Laterality 04/12/2019 3:00 PM EST Impressions 04/12/2019 8:31 PM EST Sigmoid diverticulitis with a tiny adjacent fluid collection consistent with an early abscess. ??No evidence of drainable fluid collection. Findings discussed with Dr. Miranda at 17 :20 on 04/12/2019. Dictated: 04/12/2019 8:31 PM Report ID: [id number] Report signed in external system at 04/12 20:31 Reported By: Reggie Padilla Jr., M.D. ( CUSG) Signed By: Reggie Padilla Jr., M.D. (CU SG) Narrative 04/12/2019 8:31 PM EST RESPONSIBLE TRANSMISSION SYSTEM OPERATOR: Reggie Padilla Jr., M.D. EXAMINATION: CT ABDOMEN PELVIS W CONTRAST CLINICAL INDICATION: Lower abdominal pain TECHNIQUE: Continuous axial images were obtained th rough the abdomen and the pelvis on a multidetector CT scanner with oral and intravenous contrast. 2-D reconstructions were generated and reviewed. Orders: The patient received 100 mL of O mnipaque 350. Dose reduction technique: iterative yoan nstruction. COMPARISON: 03/03/2018 FINDINGS: INFERIOR CHEST There is respiratory motion artifact in the lung bases, and there are multiple subcentimeter pneumatocele is a posteriorly in both lung bases likely to reflect prior infection, which were previously present. ABDOMEN CT Liver: Normal Gallbladder / bile ducts: Normal Pancreas / pancreatic duct: Normal Spleen: Normal Adrenal glands: Bilaterally normal Kidneys / ureters: There is no evidence of suspicious mass, hydronephrosis or calculus on either side. ??There are a few small parapelvic cysts on the left. ??The ureters are bilaterally normal. Gastrointestinal Tract: There is new foc al wall thickening of the midportion of the sigmoid colon with an adjacent small loculated fluid collection immediately adjacent to the wall whose estimated total volume is approximately 2 cc, consisten t with sigmoid diverticulitis and early abscess formation (for example, image 157 of axial series 3). ??There is no evidence of free air. ??There is no evidence of drainable fluid collection. Vascular: There is sparse atheroscleroti c calcification of the aorta without evidence of aneurysm. ??The arteries and veins are otherwise normal. Retroperitoneum / mesentery / peritoneal cavity: There is no evidence of free air or free fluid. ??There is no evidence of mesenteric, retroperitoneal, portal, pelvic or inguinal adenopathy. PELVIS CT Urinary bladder: Normal Reproductive organs: Normal SOFT TISSUES AND BONES There is no evidence of suspicious lytic or blastic lesion in the visible bones. ??There is multilevel mild degenerative change in the spine. ??The soft tissues are normal. Procedure Note Reggie Padilla MD - 04/12/2019Format ting of this note might be different from the original. RESPONSIBLE TRANSMISSION SYSTEM OPERATOR: Reggie Padilla Jr., M.D. EXAMINATION: CT ABDOMEN PELVIS W CONTRAST CLINICAL INDICATION: Lower abdominal pain TECHNIQUE: Continuous axial images were obtained th rough the abdomen and the pelvis on a multidetector CT scanner with oral and intravenous contrast. 2-D reconstructions were generated and reviewed. Orders: The patient received 100 mL of O mnipaque 350. Dose reduction technique: iterative yoan nstruction. COMPARISON: 03/03/2018 FINDINGS: INFERIOR CHEST There is respiratory motion artifact in the lung bases, and there are multiple subcentimeter pneumatocele is a posteriorly in both lung bases likely to reflect prior infection, which were previously present. ABDOMEN CT Liver: Normal Gallbladder / bile ducts: Normal Pancreas / pancreatic duct: Normal Spleen: Normal Adrenal glands: Bilaterally normal Kidneys / ureters: There is no evidence of suspicious mass, hydronephrosis or calculus on either side. There are a few small parapelvic cysts on the left. The ureters are bilaterally normal. Gastrointestinal Tract: There is new foc al wall thickening of the midportion of the sigmoid colon with an adjacent small loculated fluid collection immediately adjacent to the wall whose estimated total volume is approximately 2 cc, consistent with s igmoid diverticulitis and early abscess formation (for example, image 157 of axial series 3). There is no evidence of free air. There is no evidence of drainable fluid collection. Vascular: There is sparse atheroscleroti c calcification of the aorta without evidence of aneurysm. The arteries and veins are otherwise normal. Retroperitoneum / mesentery / peritoneal cavity: There is no evidence of free air or free fluid. There is no evidence of mesenteric, retroperitoneal, portal, pelvic or inguinal adenopathy. PELVIS CT Urinary bladder: Normal Reproductive organs: Normal SOFT TISSUES AND BONES There is no evidence of suspicious lytic or blastic lesion in the visible bones. There is multilevel mild degenerative change in the spine. The soft tissues are normal. IMPRESSION: Sigmoid diverticulitis with a tiny adjac ent fluid collection consistent with an early abscess. No evidence of drainable fluid collection. Findings discussed with Dr. Miranda at 17 :20 on 04/12/2019. Dictated: 04/12/2019 8:31 PM Report ID: [id number] Report signed in external system at 04/12 20:31 Reported By: Reggie Padilla Jr., M.D. ( CUSG) Signed By: Reggie Padilla Jr., M.D. (CU SG) Kevin Miranda MD IMG CT PROCEDURES documented in this encounter Visit Diagnoses Diagnosis Diverticulitis Diverticulitis of colon (without mention of hemorrhage) documented in this encounter Administered Medications Inactive Administered Medications - up to 3 most recent administrations Medication Order MAR Action Action Date Dose Rate Site iohexol (OMNIPAQUE) 350 mg Given 04/12/2019 4:52 PM EST 35,000 m g iodine/mL injection 35,000 mg 35,000 mg (100 mL), intravenous, Once in imaging, contrast, Starting on [place] 04/12/19 at 1651, For 1 dose documented in this encounter Care Teams Manager General Relationship Specialty Start Date End Date Laurie Elias NP PCP - General Family Medicine 03/02/18 11/19/19 [address] [place] [address] documented as of this encounter
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
--- OUTSIDE RECORDS SUMMARY | 2021-07-22 20:17 | XMS_ITS | Encounter Summary ---
:1945 Author Organization [facility] Address [address] [facility], [address] [place] [address] Care Team Providers Name Role Phone Laurie Elias ANN Primary Care Provider Encounter Details Date Type Department Care Team Description 04/13/2019 Telephone [facility] zurita MD [facility] [address] [facility], [address] [facility], [facility] [address] [place], [place] [id number] [place] [address] [phone] (Wo rk) Social History Tobacco Use Types Packs/Day Years Used Date Former Smoker Smokeless Tobacco: Never Used Alcohol Use Standard Drinks/Week Comments Yes 5 (1 standard drink = 0.6 oz pure alcoho l) Sex Assigned at Date Recorded Female 04/12/2019 2:19 PM EST documented as of this encounter Miscellaneous Notes Telephone Encounter - Laura Mak MA - 04/13/2019 8:57 AM EST She called to discuss her CT results with you. I returned the patient's call regarding her CT scan. I see that she has a small fluid collection adjacent to the sigmoid colon. She has been treated with oral antibiotics, but remains symptomatic. I would favor iv antibiotics as an IP. WRB documented in this encounter Plan of Treatment Not on filedocumented as of this encounter Visit Diagnoses Not on filedocumented in this encounter Care Teams Physical Chemistry Professor Relationship Specialty Start Date End Date Laurie Elias NP PCP - General Family Medicine 03/02/18 11/19/19 [address] [place] [address] documented as of this encounter
--- OUTSIDE RECORDS SUMMARY | 2021-07-22 20:17 | XMS_ITS | Encounter Summary ---
:1945 Author Organization [facility] Address [address] [facility], [address] [place] [address] Care Team Providers Name Role Phone Kevin Miranda MD Primary Care Provider Encounter Details Date Type Department Care Team Description 12/14/2019 Scan Document - View [facility] Kevin Miranda, in Chart Practice [address] [place], [place] [address] [place], [place] [phone] Social History Tobacco Use Types Packs/Day Years Used Date Former Smoker Smokeless Tobacco: Never Used Alcohol Use Standard Drinks/Week Comments Yes 5 (1 standard drink = 0.6 oz pure alcoho l) Sex Assigned at Date Recorded Female 04/12/2019 2:19 PM EST COVID-19 Exposure Response Date Recorded In the last month, have you been in contact with No / Unsure 12/05/2019 9:53 AM EDT someone who was confirmed or suspected to have Coronavirus / COVID-19? documented as of this encounter Plan of Treatment Not on filedocumented as of this encounter Visit Diagnoses Not on filedocumented in this encounter Care Teams Manager Product Support Relationship Specialty Start Date End Date Kevin Miranda MD PCP - General Family Medicine 11/20/[address] [place] [phone] documented as of this encounter
--- OUTSIDE RECORDS SUMMARY | 2021-07-22 20:17 | XMS_ITS | Encounter Summary ---
:1945 Author Organization [facility] Address [address] [facility], [address] [place] [address] Care Team Providers Name Role Phone Laurie Elias NP Primary Care Provider Reason for Referral Diagnostic Imaging (Routine) - Closed Specialty Diagnoses / Procedures Referred By Contact Refer red To Contact Radiology Diagnoses Diverticulitis Kevin Miranda MD Procedures CT Abdomen Pelvis with Contrast [address] [place] [address] Referral ID Status Reason Start Date Expiration Date Visits Requ ested Visits Authorized [id number] Closed 04/12/2019 04/11/2020 1 1 Encounter Details Date Type Department Care Team Description 04/12/2019 Office Visit Kevin Trimble, Acute c ystitis with hematuria (Primary Dx); Practice Diverticulitis [address] [place] [address] [place], [place] [phone] Social History Tobacco Use Types Packs/Day Years Used Date Former Smoker Smokeless Tobacco: Never Used Alcohol Use Standard Drinks/Week Comments Yes 5 (1 standard drink = 0.6 oz pure alcoho l) Sex Assigned at Date Recorded Female 04/12/2019 2:19 PM EST documented as of this encounter Last Filed Vital Signs Vital Sign Reading Time Taken Comments Blood Pressure 92/60 04/12/2019 1:32 PM EST Pulse 52 04/12/2019 1:32 PM EST Temperature 36.6 ??C (97.8 ??F) 04/12/2019 1:32 PM EST Respiratory Rate - - Oxygen Saturation 96% 04/12/2019 1:32 PM EST Inhaled Oxygen Concentration - - Weight 58.4 kg (128 lb 12.8 oz) 04/12/2019 1:32 PM EST Height - - Body Mass Index 20.17 12/06/2018 8:52 AM EDT documented in this encounter Progress Notes Kevin Miranda MD - 04/12/2019 1:30 PM EST Subjective Patient ID: Molly Rios is a 74 y.o. female. HPI Patient presents for follow up of recent UTI and possible onset of diverticulitis. She was started on Augmentin 04/09. Since then, she felt better initially, but last night started feeling worse again. Fever seemed to have resolved, but came back, Tmax 101 last night. She complains of decreased appetite, nausea, loose stool, which have started this week. She is tolerating bland foods, but not eating much. She is staying well hydrated. Urine culture showed >100K E.coli, sensitive to Augmentin. Her urinary symptoms have resolved. The following portions of the patient's history were reviewed and updated as appropriate: allergies,current medications, past medical history, past surgical history, past family history, past social history and problem list. Review of Systems Constitutional: Positive for chills and fever. Gastrointestinal: Positive for abdominal pain. Negative for blood in stool, constipation and diarrhea. Genitourinary: Negative for dysuria and flank pain. Objective Physical Exam Vitals signs reviewed. Constitutional: General: She is not in acute distress. Appearance: Normal appearance. She is normal weight. She is not ill-appearing, toxic-appearing or diaphoretic. HENT: Mouth/Throat: Mouth: Mucous membranes are moist. Abdominal: General: Abdomen is flat. Bowel sounds are normal. There is no distension. Palpations: Abdomen is soft. There is no fluid wave, hepatomegaly or splenomegaly. Tenderness: There is abdominal tenderness in the left lower quadrant. There is rebound. There is noright CVA tenderness, left CVA tenderness or guarding. Hernia: No hernia is present. Skin: General: Skin is warm. Capillary Refill: Capillary refill takes less than 2 seconds. Findings: No rash. Neurological: Mental Status: She is alert. Mental status is at baseline. Assessment/Plan Problem List Items Addressed This Visit Infectious/Inflammatory Diverticulitis Relevant Orders CT Abdomen Pelvis with Contrast CBC (Completed) Comprehensive metabolic panel (Completed) Other Visit Diagnoses Acute cystitis with hematuria - Primary Relevant Orders POCT urinalysis dipstick (Completed) Urine culture Suspect diverticulitis, which is not responding adequately to Augment. CT abdomen/pelvis ordered to evaluate for abscess or other acute process. CBC, CMP stat prior to CT. CT abdomen/pelvis confirms diverticulitis with small, early, non-drainable abscess. Plan to change antibiotic to ciprofloxacin 500 mg BID and Flagyl 500 mg TID x7 days. Patient is instructed to seek emergent care for any pain, fever, nausea, vomiting, weakness, or any other worsening. If she is not significantly improved by tomorrow morning (2 doses of cipro and 3 of Flagyl) she agrees to go in to the hospital as well. She will follow up with Dr. Gorman as well. Urine dip notable for LE, blood. Symptoms have resolved on Augmentin, which should be effective per sensitivities. Urine culture ordered for follow up today. Kevin iMranda MD documented in this encounter Plan of Treatment Not on filedocumented as of this encounter Procedures Procedure Name Priority Date/Time Associated Diagnosis Comme nts CBC STAT 04/12/2019 2:31 Diverticulitis Results fo r this PM EST procedure are i n the results section. COMPREHENSIVE STAT 04/12/2019 2:31 Diverticulitis Results f or this METABOLIC PANEL PM EST procedure ar e in the results section. URINE CULTURE Routine 04/12/2019 1:53 Acute cystitis with Resu lts for this PM EST hematuria procedure are i n the results section. POCT URINALYSIS Routine 04/12/2019 1:39 Acute cystitis with Re sults for this DIPSTICK PM EST hematuria procedure are i n the results section. [...] 04/12/2019. Dictated: 04/12/2019 8:31 PM Report ID: [id number] Report signed in external system at 04/12 20:31 Reported By: Reggie Padilla Jr., M.D. ( [facility]) Signed By: Reggie Padilla Jr., M.D. ([facility]) Narrative 04/12/2019 8:31 PM EST RESPONSIBLE MEDICAL RECORDS SUPERVISOR: Reggie Padilla Jr., M.D. EXAMINATION: CT ABDOMEN [...] might be different from the original. RESPONSIBLE MEDICAL RECORDS SUPERVISOR: Reggie Padilla Jr., M.D. EXAMINATION: CT ABDOMEN [...] 04/12/2019. Dictated: 04/12/2019 8:31 PM Report ID: [id number] Report signed in external system at 04/12 20:31 Reported By: Reggie Padilla Jr., M.D. ( [facility]) Signed By: Reggie Padilla Jr., M.D. ([facility]) Kevin Miranda MD IMG CT PROCEDURES (ABNORMAL) Comprehensive metabolic panel (04/12/2019 2:31 PM EST) [facility] Method Time Signature Sodium 136 (L) 137 - 145 04/12/2019 [facility] mmol/L 2:56 PM EST [facility] Potassium 4.4 3.5 - 5.1 04/12/2019 [facility] mmol/L 2:56 PM EST [facility] CHLORIDE 99 98 - 107 04/12/2019 [facility] mmol/L 2:56 PM EST [facility] CARBON DIOXIDE, 29.0 22.0 - 04/12/2019 [facility] TOTAL 30.0 2:56 PM EST HOSPITAL mmol/L LABORATORY ANION GAP 8.0 6 - 14 04/12/2019 [facility] 2:56 PM EST [facility] GLUCOSE 109 (H) 70 - 99 04/12/2019 [facility] mg/dL 2:56 PM EST [facility] CALCIUM 9.5 8.3 - 10.3 04/12/2019 [facility] mg/dL 2:56 PM EST [facility] CREATININE 0.6 0.5 - 1.0 04/12/2019 [facility] mg/dL 2:56 PM EST [facility] ALBUMIN 3.8 3.5 - 5.0 04/12/2019 [facility] g/dL 2:56 PM EST [facility] Bilirubin Total 0.4 0.2 - 1.3 04/12/2019 [facility] mg/dL 2:56 PM EST [facility] BILIRUBIN DIRECT 0.3 0.0 - 0.4 04/12/2019 [facility] mg/dL 2:56 PM EST [facility] ALKALINE 104 38 - 126 04/12/2019 [facility] PHOSPHATASE U/L 2:56 PM EST [facility] AST (SGOT) 39 15 - 46 04/12/2019 [place] U/L 2:56 PM [facility] ALT 45 13 - 69 04/12/2019 [place] U/L 2:56 PM [facility] GFR >60 04/12/2019 [place] 2:56 PM [facility] PROTEIN TOTAL 6.7 6.3 - 8.2 04/12/2019 [place] g/dL 2:56 PM [facility] BUN 12 7 - 17 04/12/2019 [place] mg/dL 2:56 PM [facility] Specimen Anatomical Collection Method / Collection Time Recei nancy Time (Source) Location / Volume Laterality Blood Venous blood / Venipuncture / 04/12/2019 2:31 04/12/19 20 2:31 Unknown Unknown PM [facility] EST Kevin Miranda MD LAB BLOOD ORDERABLES Performing Organization Address City/State/ZIP Code Phon e Number [facility] [address] [address] LABORATORY CBC (04/12/2019 2:31 PM [facility]) P athologist Signature WBC 7.00 4.00 to 04/12/2019 [place] 11.00 x 2:42 PM [facility] 10*3u/L LABORATORY 10*3/uL nRBC 0 0 - 0 /100 04/12/2019 [place] WBCs 2:42 PM [facility] LABORATORY RBC 4.28 3.90 to 04/12/2019 [place] 5.20 x 2:42 PM [facility] 10*6/uL LABORATORY 10*6/uL HGB 13.6 12.0 to 04/12/2019 [place] 16.0 g/dL 2:42 PM [facility] g/dL LABORATORY HCT 40.0 36.0% to 04/12/2019 [place] 46.0% % 2:42 PM [facility] LABORATORY MCV 93.5 80.0 to 04/12/2019 [place] 100.0 fL fL 2:42 PM [facility] LABORATORY MCH 31.8 26.0 - 33.0 04/12/2019 [place] pg 2:42 PM [facility] LABORATORY MCHC 34.0 31.0 to 04/12/2019 [place] 37.0 g/dL 2:42 PM [facility] g/dL LABORATORY PLT 295 150 to 350 04/12/2019 [place] x 10*3u/l 2:42 PM [facility] 10*3u/L LABORATORY RDW-CV 13.0 11.5 - 14.5 04/12/2019 [place] % 2:42 PM [facility] LABORATORY Specimen Anatomical Collection Method / Collection Time Recei nancy Time (Source) Location / Volume Laterality Blood Venous blood / Venipuncture / 04/12/2019 2:31 04/12/19 20 2:31 Unknown Unknown PM EST EST Kevin Miranda MD LAB BLOOD ORDERABLES Performing Organization Address City/State/ZIP Code Phon e Number [facility] [address] [address] LABORATORY (ABNORMAL) Urine culture (04/12/2019 1:53 PM EST) Analysis Performed At [facility] Time Signature Urine Culture (A) [facility] Comment: ??CULTURE, URINE, ROUTINE ?Micro Number: ?[id number] ??Test Status: ? Final ??Specimen Source: ?? URINE ??Specimen Quality: ??Adequate ??Result: ?10,000-50,00 0 CFU/mL of Escherichia coli ?E .coli ?- ?I NT ?? JHON ?? AMOX/CLAVULANATE ? R ? >= 32 ?? AMPICILLIN ? R ? >=32 ?? AMP/SULBACTAM ?R ? >=32 ?? CEFAZOLIN ?R ? >=64 1 ?? CEFEPIME ? S ? <=1 ?? CEFTRIAXONE ?S ? <=1 ?? CIPROFLOXACIN ?S ? <=0.25 ?? ERTAPENEM ?S ? <=0.5 ?? GENTAMICIN ? S ? <=1 ?? IMIPENEM ? S ? <=0.25 ?? LEVOFLOXACIN ? S ? <=0.12 ?? NITROFURANTOIN ? S ? < =16 ?? PIP/TAZOBACTAM ? I ? 6 4 ?? TOBRAMYCIN ? S ? <=1 ?? TRIMETHOPRIM/SULFA ? S ? <=2 0 S=Susceptible ??I=Intermediate ??R=Resis tant ??* = Not Tested NR = Not Reported ??NN = See Therapy C omments THERAPY COMMENTS ?Note 1: ?For uncomplicated UTI caused by E. coli, ?K. pneumoniae or P. mirabilis: Cef azolin is ?susceptible if JHON <32 mcg/mL and predicts ?susceptible to the oral agents cef aclor, cefdinir, ?cefpodoxime, cefprozil, cefuroxime , cephalexin ?and loracarbef. Specimen Anatomical Collection Method Collection Time Receive d Time (Source) Location / / Volume Laterality Urine Urine specimen 04/12/2019 1:53 PM 020 1:54 collection, clean EST PM EST catch / Unknown Narrative [facility] - 04/14/2019 6:33 PM EST FASTING:UNKNOWN FASTING: UNKNOWN Kevin Miranda MD LAB MICROBIOLOGY - GENERAL O RDERABLES Performing Organization Address City/State/ZIP Code Phon e Number [facility] [address] [id number] [place] [address], [address] [facility] [address], [facility] [address] [id number] Diagnost POCT urinalysis dipstick (04/12/2019 1:39 PM EST) [facility] gist Method Time Signature Color, UA Yellow Clarity, UA Slightly Cloudy Glucose, UA Negative Bilirubin, UA Negative Ketones, UA Low Positive Spec Grav, UA 1.015 Blood, UA Positive pH, UA 6.0 Protein, UA Trace Urobilinogen, 0.2 UA Leukocytes, UA 1+ Nitrite, UA Negative Appearance Clear Specimen (Source) Anatomical Collection Method Collection Time Re ceived Time Location / / Volume Laterality Urine 04/12/2019 1:39 PM EST Kevin Miranda MD POINT OF CARE TEST ORDERABLE S documented in this encounter Visit Diagnoses Diagnosis Acute cystitis with hematuria - Primary Diverticulitis Diverticulitis of colon (without mention of hemorrhage) Diverticulitis Diverticulitis of colon (without mention of hemorrhage) documented in this encounter Care Teams Master Control Supervisor Relationship Specialty Start Date End Date Laurie Elias NP PCP - General Family Medicine 03/02/18 11/19/19 [address] [place] [address] documented as of this encounter
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
--- OUTSIDE RECORDS SUMMARY | 2021-07-22 20:17 | XMS_ITS | Encounter Summary ---
:1945 Author Organization [facility] Address [address] [facility], [address] [place] [address] Care Team Providers Name Role Phone Laurie Elias CROTCH BREAKER Primary Care Provider Encounter Details Date Type Department Care Team Description 04/30/2019 Travel Social History Tobacco Use Types Packs/Day Years Used Date Former Smoker Smokeless Tobacco: Never Used Alcohol Use Standard Drinks/Week Comments Yes 5 (1 standard drink = 0.6 oz pure alcoho l) Sex Assigned at Date Recorded Female 04/12/2019 2:19 PM EST COVID-19 Exposure Response Date Recorded In the last month, have you been in contact Unable to assess 04/30/2019 1:56 PM EDT with someone who was confirmed or suspected to have Coronavirus / COVID-19? documented as of this encounter Plan of Treatment Not on filedocumented as of this encounter Visit Diagnoses Not on filedocumented in this encounter Care Teams Buckle Attacher Relationship Specialty Start Date End Date Laurie Elias, ANN PCP - General Family Medicine 03/02/18 11/19/19 [address] [place] [address] documented as of this encounter
--- OUTSIDE RECORDS SUMMARY | 2021-07-22 20:17 | XMS_ITS | Encounter Summary ---
:1945 Author Organization [facility] Address [address] [facility], [address] [place] [address] Care Team Providers Name Role Phone Lauire Elias PHARMACEUTICAL OFFICER Primary Care Provider Encounter Details Date Type Department Care Team Description 03/06/2019 Orders Only [facility] Manpreet Carter DC [address] [place] [address] Social History Tobacco Use Types Packs/Day Years [...] on filedocumented in this encounter Care Teams Product Analyst Relationship Specialty Start Date End Date Laurie Elias NP PCP - General Family Medicine 03/02/18 11/19/19 [address] [place] [address] documented as of this encounter
--- OUTSIDE RECORDS SUMMARY | 2021-07-22 20:17 | XMS_ITS | Encounter Summary ---
:1945 Author Organization [facility] Address [address] [facility], [address] [place] [address] Care Team Providers Name Role Phone Laurie Elias NP Primary Care Provider Encounter Details Date Type Department Care Team Description 10/15/2019 Refill [facility] Kevin Crowe MD [facility] [address] [address] [place] [address] [phone] (Wo rk) Social History Tobacco Use Types Packs/Day Years Used Date Former Smoker Smokeless Tobacco: Never Used Alcohol Use Standard Drinks/Week Comments Yes 5 (1 standard drink = 0.6 oz pure alcoho l) Sex Assigned at Date Recorded Female 04/12/2019 2:19 PM EST documented as of this encounter Miscellaneous Notes Telephone Encounter - Manpreet Bingham MA - 10/15/2019 3:21 PM EDT CPE 06/08/18 documented in this encounter Plan of Treatment Not on filedocumented as of this encounter Visit Diagnoses Not on filedocumented in this encounter Care Teams Inner Diameter Grinder Tool Relationship Specialty Start Date End Date Laurie Elias NP PCP - General Family Medicine 03/02/18 11/19/[address] [place] [id number] documented as of this encounter
--- OUTSIDE RECORDS SUMMARY | 2021-07-22 20:17 | XMS_ITS | Encounter Summary ---
:1945 Author Organization [facility] Address [address] [facility], [address] [place] [address] Care Team Providers Name Role Phone Kevin Miranda MD Primary Care Provider Encounter Details Date Type Department Care Team Description 11/27/2019 Refill [facility] Pr actice Kevin Miranda MD [facility] [address] [address] [place] [address] [phone] (Wo rk) Social History Tobacco Use Types [...] on filedocumented in this encounter Care Teams Development Eng Relationship Specialty Start Date End Date Kevin Miranda MD PCP - General Family Medicine 11/20/[address] [place] [address] documented as of this encounter
--- OUTSIDE RECORDS SUMMARY | 2021-07-22 20:17 | XMS_ITS | Encounter Summary ---
:1945 Author Organization [facility] Address [address] [facility], [address] [place] [address] Care Team Providers Name Role Phone Kevin Miranda MD Primary Care Provider Encounter Details Date Type Department Care Team Description 03/21/2020 Orders Only [facility] actice Provider, MD Harsh [address] [place] [id number] [phone] Social History Tobacco Use Types Packs/Day Years Used Date Former Smoker Smokeless Tobacco: Never Used Alcohol Use Standard Drinks/Week Comments Yes 5 (1 standard drink = 0.6 oz pure alcoho l) Sex Assigned at Date Recorded Female 04/12/2019 2:19 PM EST COVID-19 Exposure Response Date Recorded In the last month, have you been in contact Unable to assess 02/23/2020 11:04 AM EST with someone who was confirmed or suspected to have Coronavirus / COVID-19? documented as of this encounter Plan of Treatment Not on filedocumented as of this encounter Procedures Procedure Name Priority Date/Time Associated Diagnosis Comme nts SCAN DOC - OTHER ORDER Routine 02/18/2020 documented in this encounter Results SCAN DOC - OTHER ORDER (02/18/2020) Narrative This result has an attachment that is no t available. Harsh Provider SCANNED ORDERS documented in this encounter Visit Diagnoses Not on filedocumented in this encounter Care Teams Process Trainer Relationship Specialty Start Date End Date Kevin Miranda MD PCP - General Family Medicine 11/20/19 [address] [facility] [address] documented as of this encounter
--- OUTSIDE RECORDS SUMMARY | 2021-07-22 20:17 | XMS_ITS | Encounter Summary ---
:1945 Author Organization [facility] Address [address] [facility], [address] [place] [address] Care Team Providers Name Role Phone Laurie Elias NP Primary Care Provider Reason for Visit Reason Comments Fever Encounter Details Date Type Department Care Team Description 04/09/2019 Office Visit Kevin Trimble, Viet c ystitis with hematuria (Primary Dx); Practice Diverticulitis [address] [place] [address] [place], [place] [phone] Social History Tobacco Use Types Packs/Day Years Used Date Former Smoker Smokeless Tobacco: Never Used Alcohol Use Standard Drinks/Week Comments Yes 5 (1 standard drink = 0.6 oz pure alcoho l) Sex Assigned at Date Recorded Female 04/12/2019 2:19 PM EST documented as of this encounter Last Filed Vital Signs Vital Sign Reading Time Taken Comments Blood Pressure 110/72 04/09/2019 11:58 AM EST Pulse 60 04/09/2019 11:58 AM EST Temperature 36.8 ??C (98.2 ??F) 04/09/2019 11:58 AM EST Respiratory Rate - - Oxygen Saturation 97% 04/09/2019 11:58 AM EST Inhaled Oxygen Concentration - - Weight 58.2 kg (128 lb 6.4 oz) 04/09/2019 11:58 AM EST Height - - Body Mass Index 20.11 12/06/2018 8:52 AM EDT documented in this encounter Progress Notes Kevin Miranda MD - 04/09/2019 11:45 AM EST Subjective Patient ID: Molly Rios is a 74 y.o. female. HPI Patient with a history of diverticulitis, GERD, presents for multiple symptoms including fever, abdominal tenderness and bloating, and new urinary symptoms. She reports having increased urinary frequency and urgency in the last 3 days. She also reports a burning sensation with urination starting yesterday. She denies nausea, vomiting, hematuria, or flank pain. In the last year, patient had a prolonged episode of diverticulitis that required 3 rounds of antibiotics (Augmentin x2, then metronidazole). 2 days ago, she began to experience abdominal pain in her LLQ and some mild abdominal distension and bloating. Stools were solid, formed; denies diarrhea, loose stools, retention, melena or hematochezia. She started a mostly liquid diet including water, peppermint tea, canned peaches, rice cakes. She tried eating chicken and potato but reports those foods madeher more bloated. She reports the pain and distension are both improved today but still present. She had a fever (high 101.3 F) 2 nights ago. She felt severe chills last night and reports waking upsignificantly sweaty but did not take her temperature. Today she still feels chills, but less severe. The following portions of the patient's history were reviewed and updated as appropriate: allergies,current medications, past medical history, past social history and problem list. Review of Systems Constitutional: Positive for chills, diaphoresis, fatigue and fever. HENT: Negative for congestion, sinus pain, sore throat and trouble swallowing. Respiratory: Negative for cough and shortness of breath. Cardiovascular: Negative for chest pain, palpitations and leg swelling. Gastrointestinal: Positive for abdominal distention and abdominal pain. Negative for constipation, diarrhea, nausea and vomiting. Genitourinary: Positive for decreased urine volume, dysuria, frequency and urgency. Negative for difficulty urinating and flank pain. Musculoskeletal: Negative for back pain. Neurological: Negative for headaches. Psychiatric/Behavioral: Positive for sleep disturbance. Objective Physical Exam Vitals signs and nursing note reviewed. Constitutional: General: She is not in acute distress. Appearance: Normal appearance. She is not diaphoretic. HENT: Head: Normocephalic and atraumatic. Nose: Nose normal. Mouth/Throat: Mouth: Mucous membranes are moist. Cardiovascular: Rate and Rhythm: Normal rate and regular rhythm. Heart sounds: Normal heart sounds. Pulmonary: Effort: Pulmonary effort is normal. No respiratory distress. Breath sounds: Normal breath sounds. No wheezing, rhonchi or rales. Abdominal: General: Bowel sounds are normal. There is no distension. Palpations: Abdomen is soft. There is no mass. Tenderness: There is abdominal tenderness (LLQ>RLQ) in the right lower quadrant and left lower quadrant. There is no right CVA tenderness, left CVA tenderness, guarding or rebound. Hernia: No hernia is present. Musculoskeletal: Normal range of motion. Right lower leg: No edema. Left lower leg: No edema. Skin: General: Skin is warm and dry. Capillary Refill: Capillary refill takes less than 2 seconds. Coloration: Skin is not pale. Findings: No erythema. Neurological: General: No focal deficit present. Mental Status: She is alert. Assessment/Plan Problem List Items Addressed This Visit Infectious/Inflammatory Diverticulitis Relevant Medications amoxicillin-pot clavulanate (AUGMENTIN) 875-125 mg per tablet Other Visit Diagnoses Acute cystitis with hematuria - Primary Relevant Medications amoxicillin-pot clavulanate (AUGMENTIN) 875-125 mg per tablet Other Relevant Orders Urine culture Urine dip positive for nitrites, LE, blood. Plan to send for culture. Urinary symptoms and dipstick UA consistent with UTI, with signs of systemic illness including fever and chills, but with normal vital signs here and no CVA tenderness. She also has symptoms and exam consistent with possible early di verticulitis. She very strongly would like to avoid another CT scan. She understands there are risksof complication from kidney infection or diverticulitis. Plan to cover for both with Augmentin BID x7 days. Encouraged to call tomorrow if fever persists or if she is worse in any other way. Also encour aged continued supportive measures, hydration, rest. Addendum: hours after the visit the patient had reconsidered and is now more open to CT. She has started Augmentin. Plan to check in tomorrow, and if not feeling improvement, will pursue CT at that time. This documentation serves as a record of the services and decisions personally performed by Kevin Miranda MD. It was created by Ramo Garcia and was based on the provider's statements to me. Consent to use a scribe was obtained prior to the start of the encounter by clinical staff. I attestthat I have reviewed this note and that the components of the history of the present illness, the physical exam, and the assessment and plan documented were performed by me or were performed in my presence by the medical secretary receptionist and verified by me. This note is an accurate record of the services performed and decisions made by Kevin Miranda MD. documented in this encounter Plan of Treatment Not on filedocumented as of this encounter Procedures Procedure Name Priority Date/Time Associated Comments Diagnosis URINE CULTURE Routine 04/09/2019 4:48 PM Acute cystitis with R esults for this EST hematuria procedure are i n the results section. POCT URINALYSIS Routine 04/09/2019 4:14 PM Acute cystitis with Results for this DIPSTICK EST hematuria procedure are i n the results section. documented in this encounter Results (ABNORMAL) Urine culture (04/09/2019 4:48 PM EST) Analysis Performed At [facility] Time Signature Urine Culture (A) [facility] Comment: ??CULTURE, URINE, ROUTINE ?Micro Number: ?[id number] ??Test Status: ? Final ??Specimen Source: ?? URINE, CLEAN CATC H ??Specimen Quality: ??Adequate ??Result: ?Greater than 100,000 CFU/mL of Escherichia coli ?E .coli ?- ?I NT ?? JHON ?? AMOX/CLAVULANATE ? S ? 4 ?? AMPICILLIN ? R ? >=32 ?? AMP/SULBACTAM ?I ? 16 ?? CEFAZOLIN ?NR ?<=4 2 ?? CEFEPIME ? S ? <=1 ?? CEFTRIAXONE ?S ? <=1 ?? CIPROFLOXACIN ?S ? <=0.25 ?? ERTAPENEM ?S ? <=0.5 ?? GENTAMICIN ? S ? <=1 ?? IMIPENEM ? S ? <=0.25 ?? LEVOFLOXACIN ? S ? <=0.12 ?? NITROFURANTOIN ? S ? < =16 ?? PIP/TAZOBACTAM ? S ? < =4 ?? TOBRAMYCIN ? S ? <=1 ?? TRIMETHOPRIM/SULFA ? S ? <=2 0 S=Susceptible ??I=Intermediate ??R=Resis tant ??* = Not Tested NR = Not Reported ??NN = See Therapy C omments THERAPY COMMENTS ?Note 1: ?For infections other than uncompli cated UTI ?caused by E. coli, K. pneumoniae o r P. mirabilis: ?Cefazolin is resistant if JHON > or = 8 mcg/mL. ?(Distinguishing susceptible versus intermediate ?for isolates with JHON < or = 4 mcg /mL requires ?additional testing.) ?Note 2: ?For uncomplicated UTI caused by E. coli, ?K. pneumoniae or P. mirabilis: Cef azolin is ?susceptible if JHON <32 mcg/mL and predicts ?susceptible to the oral agents cef aclor, cefdinir, ?cefpodoxime, cefprozil, cefuroxime , cephalexin ?and loracarbef. Specimen Anatomical Collection Method Collection Time Receive d Time (Source) Location / / Volume Laterality Urine Urine specimen 04/09/2019 4:48 PM 020 4:48 collection, clean EST PM EST catch / Unknown Kevin Miranda MD LAB MICROBIOLOGY - GENERAL O RDERABLES Performing Organization Address City/State/ZIP Code Phon e Number [employer] [address] [id number] [place] [address] [address] [place] [address] [employer] [address] [phone] Diagnost POCT Urinalysis dipstick (04/09/2019 4:14 PM EST) [facility] gist Method Time Signature Color, UA Yellow Clarity, UA Clear Glucose, UA Negative Bilirubin, UA Negative Ketones, UA Low Positive Spec Grav, UA 1.020 Blood, UA Positive pH, UA 6.5 Protein, UA 2+ Urobilinogen, 0.2 UA Leukocytes, UA 2+ Nitrite, UA 1+ Specimen (Source) Anatomical Collection Method Collection Time Re ceived Time Location / / Volume Laterality Urine 04/09/2019 4:14 PM EST Kevin Miranda MD POINT OF CARE TEST ORDERABLE S documented in this encounter Visit Diagnoses Diagnosis Acute cystitis with hematuria - Primary Diverticulitis Diverticulitis of colon (without mention of hemorrhage) documented in this encounter Care Teams Petroleum Plant Operator Relationship Specialty Start Date End Date Laurie Elias NP PCP - General Family Medicine 03/02/18 11/19/19 [address] [place] [address] documented as of this encounter
--- OUTSIDE RECORDS SUMMARY | 2021-07-22 20:17 | XMS_ITS | Encounter Summary ---
:1945 Author Organization [facility] Address [address] [facility], [address] [place] [address] Care Team Providers Name Role Phone Kevin Miranda MD Primary Care Provider Encounter Details Date Type Department Care Team Description 01/03/2020 Refill [facility] Pr actice Kevin Miranda MD [facility]0 [place] [address] [place] [address] [place] [address] [phone] (Wo rk) Social History Tobacco Use Types [...] / COVID-19? documented as of this encounter Miscellaneous Notes Telephone Encounter - Manpreet Bingham [place] - 01/03/2020 3:23 PM EST cpe 11/23/19 documented in this encounter Plan of Treatment Not on filedocumented as of this encounter Visit Diagnoses Not on filedocumented in this encounter Care Teams Central Supply Assistant Relationship Specialty Start Date End Date Kevin Miranda MD PCP - General Family Medicine 11/20/19 [address] [facility] [place] [address] documented as of this encounter
--- OUTSIDE RECORDS SUMMARY | 2021-07-22 20:17 | XMS_ITS | Encounter Summary ---
:1945 Author Organization [facility] Address [address] [facility], [address] [place] [address] Care Team Providers Name Role Phone Kevin Miranda MD Primary Care Provider Reason for Referral Diagnostic Imaging (Routine) - Closed Specialty Diagnoses / Procedures Referred By Contact Refer red To Contact Radiology Diagnoses Osteopenia, unspecified location Kevin Miranda MD Procedures DEXA [facility]ensity [facility] [address] [place] [address] Referral ID Status Reason Start Date Expiration Date Visits Requ ested Visits Authorized [id number] Closed 01/07/2020 01/06/2021 1 1 Reason for Visit Diagnostic Imaging (Routine) - Closed Specialty Diagnoses / Procedures Referred By Contact Refer red To Contact Radiology Diagnoses Osteopenia, unspecified location Kevin Miranda MD Procedures DEXA [facility] [address] [place] [address] Referral ID Status Reason Start Date Expiration Date Visits Requ ested Visits Authorized [id number] Closed 01/07/2020 01/06/2021 1 1 Encounter Details Date Type Department Care Team Description 03/25/2020 Hospital Encounter [facility] Vanessa Miranda, [facility] DXA MD Kevin unspecified location [address] [phone] Social History Tobacco Use Types Packs/Day Years [...] dose prn TURMERIC (CURCUMIN MISC) daily. 0 Vitamin D3 Take by mouth daily. 0 clonazePAM (KlonoPIN) Take 1 tablet (0.5 20 tablet 0 201905/14/2020 0.5 mg tablet mg total) by mouth nightly as needed for anxiety. doxepin (SINEquan) 10 mg Take 1 capsule (10 90 capsule 3 06/05/2020 capsule mg total) by mouth nightly. documented as of this encounter Plan of Treatment Not on filedocumented as of this encounter Procedures Procedure Name Priority Date/Time Associated Diagnosis Comme nts DEXA BONE DENSITY Routine 03/25/2020 10:54 AM Osteopenia, Res ults for this CENTRAL EST unspecified location procedu re are in the results section. documented in this encounter Results DEXA Bone Density [facility] (03/25/2020 10:54 AM EST) Anatomical Region Laterality Modality Hip, L-spine N/A Digital Radiography Specimen (Source) Anatomical Collection Method Collection Time Re ceived Time Location / / Volume Laterality 03/25/2020 10:45 AM EST Impressions 03/25/2020 1:12 PM EST Based on the WHO definition above, there is osteopenia. Change compared to prior studies: Lumbar spine: There has been 8.4% decrea se in bone mineral density of the lumbar spine compared to the baseline exam and 5.5% increase in bone mineral density compared to the previous study. Right hip: There has been 32.4% decrease in bone mineral density of the left hip compared to the baseline study and 4.5% decrease in bone mineral density compared to the previous exam. FRAX Score for major osteoporotic fractu re: 8.0% FRAX Score for hip fracture: 1.0% (See separately mailed data sheets). Dictated: 03/25/2020 1:12 PM Report ID: [id number] Report signed in external system at 03/25 13:12 Reported By: Joshua Arora M.D. ([facility]) Signed By: Joshua Arora M.D. ([facility]) Narrative 03/25/2020 1:12 PM EST RESPONSIBLE FIRE SYSTEMS INSPECTOR: Joshua Arora M.D. EXAMINATION: DEXA BONE DENSITY CENTRAL CLINICAL INDICATION: Osteoporosis screening. ??Post menopause . TECHNIQUE: Dual Energy X-Ray Absorptiometry (DEXA t [facility]) was performed with measurements of the lumbar spine and right hip. GENERAL INFORMATION FOR BONE DENSITOMETR Y: BMD Reporting in Postmenopausal Women an d in Males age 50 and Older: The Z-score refers to standard deviation s with reference to the age-matched mean. ??The T-score refers to standard deviations with reference to mean young adult (white females age 20-29) peak bone mass. ??The World Health Organization (WHO) h as defined low bone mass or osteopenia as between 1-2.5 standard deviations below mean young adult peak bone mass (T- score) and osteoporosis as 2.5 or more standard deviations below that mean. BMD Reporting in Females prior to menopa use and in Males Younger then age 50: The Z-score is preferred. A Z-score of - 2.0 or lower is defined as below the expected range for age and a Z-score above -2.0 is within the expected range for age. COMPARISON: 01/18/2018 FINDINGS: L-Spine: T-score 0.0 Z-score 2.3 Right femoral Neck: BMD 0.754 g/cm?? T-score -0.9 Z-score 1.1 Right hip: T-score -1.4 Z-score 0.2 Procedure Note Joshua Arora MD - 03/25/2020Forma tting of this note might be different from the original. RESPONSIBLE FIRE SYSTEMS INSPECTOR: Joshua Arora M.D. EXAMINATION: DEXA BONE DENSITY CENTRAL CLINICAL INDICATION: Osteoporosis screening. Post menopause. TECHNIQUE: Dual Energy X-Ray Absorptiometry (DEXA t echnique) was performed with measurements of the lumbar spine and right hip. GENERAL INFORMATION FOR BONE DENSITOMETR Y: BMD Reporting in Postmenopausal Women an d in Males age 50 and Older: The Z-score refers to standard deviation s with reference to the age-matched mean. The T-score refers to standard deviations with reference to mean young adult (white females age 20-29) peak bone mass. The World Health Organization (WHO) has defined low bone mass or osteopenia as between 1-2.5 standard deviations below mean young adult peak bone mass (T- score) and osteoporosis as 2.5 or more standard deviations below that mean. BMD Reporting in Females prior to menopa use and in Males Younger then age 50: The Z-score is preferred. A Z-score of - 2.0 or lower is defined as below the expected range for age and a Z-score above -2.0 is within the expected range for age. COMPARISON: 01/18/2018 FINDINGS: L-Spine: T-score 0.0 Z-score 2.3 Right femoral Neck: BMD 0.754 g/cm?? T-score -0.9 Z-score 1.1 Right hip: T-score -1.4 Z-score 0.2 IMPRESSION: Based on the WHO definition above, there is osteopenia. Change compared to prior studies: Lumbar spine: There has been 8.4% decrea se in bone mineral density of the lumbar spine compared to the baseline exam and 5.5% increase in bone mineral density compared to the previous study. Right hip: There has been 32.4% decrease in bone mineral density of the left hip compared to the baseline study and 4.5% decrease in bone mineral density compared to the previous exam. FRAX Score for major osteoporotic fractu re: 8.0% FRAX Score for hip fracture: 1.0% (See separately mailed data sheets). Dictated: 03/25/2020 1:12 PM Report ID: [id number] Report signed in external system at 03/25 13:12 Reported By: Joshua Arora M.D. ([facility]) Signed By: Joshua Arora M.D. ([facility]) Kevin Miranda MD IMG DXA PROCEDURES documented in this encounter Visit Diagnoses Diagnosis Osteopenia, unspecified location documented in this encounter Care Teams Senior Project Architect Relationship Specialty Start Date End Date Kevin Miranda MD PCP - General Family Medicine 11/20/[address] [place] [address] documented as of this encounter
--- OUTSIDE RECORDS SUMMARY | 2021-07-22 20:17 | XMS_ITS | Encounter Summary ---
:1945 Author Organization [facility] Address [address] [facility], [address] [place] [address] Care Team Providers Name Role Phone Laurie Elias ROAD SIGN INSTALLER Primary Care Provider Encounter Details Date Type Department Care Team Description 07/04/2019 Refill [facility] Yessy Gee, [address] [place] [address] [address] [phone] [place], [place] [phone] (Wo rk) Social History Tobacco Use Types [...] on filedocumented in this encounter Care Teams Machine Setup Operator Relationship Specialty Start Date End Date Laurie Elias, ANN PCP - General Family Medicine 03/02/18 11/19/19 [address] [place] [address] documented as of this encounter
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
--- OUTSIDE RECORDS SUMMARY | 2021-07-22 20:17 | XMS_ITS | Encounter Summary ---
:1945 Author Organization [facility] Address [address] [facility], [address] [place] [address] Care Team Providers Name Role Phone Kevin Miranda MD Primary Care Provider Encounter Details Date Type Department Care Team Description 07/16/2020 Scan Document - View [facility] Kevin Miranda, in Chart Practice [address] [place], [place] [id number] [place], [place] [phone] [id number] Social History Tobacco Use Types Packs/Day Years [...] on filedocumented in this encounter Care Teams Roll Icer Relationship Specialty Start Date End Date Kevin Miranda MD PCP - General Family Medicine 11/20/[address] [place] [address] documented as of this encounter
--- OUTSIDE RECORDS SUMMARY | 2021-07-22 20:17 | XMS_ITS | Encounter Summary ---
:1945 Author Organization [facility] Address [address] [facility], [id number] [place] [address] Care Team Providers Name Role Phone Kevin Miranda MD Primary Care Provider Reason for Referral Diagnostic Imaging (Routine) - Closed Specialty Diagnoses / Procedures Referred By Contact Refer red To Contact Diagnoses Hip pain, right Antolin Montana MD Procedures X-ray Hip 2-3 Views Right (Pelvis Optional) [address] [place] [address] Referral ID Status Reason Start Date Expiration Date Visits Requ ested Visits Authorized [id number] Closed 02/06/2019 02/06/2020 1 1 Encounter Details Date Type Department Care Team Description 02/06/2019 Ancillary Orders [facility] Antolin Montana, Hip pain, right Ultrasound [address] [facility] [address] [place], [place] [phone] [id number] Social History Tobacco Use Types Packs/Day Years Used Date Former Smoker Smokeless Tobacco: Never Used Alcohol Use Standard Drinks/Week Comments Yes 5 (1 standard drink = 0.6 oz pure alcoho l) Sex Assigned at Date Recorded Female 04/12/2019 2:19 PM EST documented as of this encounter Plan of Treatment Not on filedocumented as of this encounter Results X-ray Hip 2-3 Views Right (Pelvis Optional) (02/06/2019 11:02 AM EST) Anatomical Region Laterality Modality Hip, Pelvis Right Digital Radiography Specimen (Source) Anatomical Collection Method Collection Time Re ceived Time Location / / Volume Laterality 02/06/2019 11:00 AM EST Impressions 02/06/2019 3:47 PM EST Moderate osteoarthritis of the right hip, not significantly changed compared to 08/11/2017. I, the attending physician, attest that I have performed and/or supervised the resident for the dueñas and critical components of this procedure. I have personally reviewed th e images pertinent to this examination and agree with the interpret ation. Dictated: 02/06/2019 3:47 PM Report ID: [id number] Report signed in external system at 01/15 15:47 Reported By: Srinivasan Olson M.D. (resident ) ([id number]) Signed By: Jacoby Cunningham M.D. (HE ) Narrative 02/06/2019 3:47 PM EST RESPONSIBLE VOLUNTEER SERVICES SPECIALIST: Jacoby Cunningham M.D. EXAMINATION: XR HIP 2-3 VW RIGHT (PELVIS OPTIONAL) CLINICAL INDICATION: Right hip pain. TECHNIQUE: AP view of the pelvis with two ??of the right hip. COMPARISON: CT of the abdomen and pelvis from 2018. Multiple right hip radiographs, with the most recent from 07/20/2017, in the oldest from 03/31/2011. FINDINGS: There is no fracture or dislocation. There are moderate degenerative changes of the right femoroacetabular joint, not significantly changed compared to 08/11/2017. There are degenerative changes of the lo wer lumbar spine. The sacrum is obscured by overlying barby l gas. There is stool throughout the colon. The single AP view of the left femoroace tabular joint is normal. Procedure Note Jacoby Cunningham MD - 02/06/2019For matting of this note might be different from the original. RESPONSIBLE VOLUNTEER SERVICES SPECIALIST: Jacoby Cunningham M.D. EXAMINATION: XR HIP 2-3 VW RIGHT (PELVIS OPTIONAL) CLINICAL INDICATION: Right hip pain. TECHNIQUE: AP view of the pelvis with two of the ri ght hip. COMPARISON: CT of the abdomen and pelvis from 2018. Multiple right hip radiographs, with the most recent from 07/20/2017, in the oldest from 03/31/2011. FINDINGS: There is no fracture or dislocation. There are moderate degenerative changes of the right femoroacetabular joint, not significantly changed compared to 08/11/2017. There are degenerative changes of the lo wer lumbar spine. The sacrum is obscured by overlying barby l gas. There is stool throughout the colon. The single AP view of the left femoroace tabular joint is normal. IMPRESSION: Moderate osteoarthritis of the right hip , not significantly changed compared to 08/11/2017. I, the attending physician, attest that I have performed and/or supervised the resident for the dueñas and critical components of this procedure. I have personally reviewed th e images pertinent to this examination and agree with the interpret ation. Dictated: 02/06/2019 3:47 PM Report ID: [id number] Report signed in external system at 01/15 15:47 Reported By: Srinivasan Olson M.D. (resident ) ([id number]) Signed By: Jacoby Cunningham M.D. ([facility] ) Antolin Montana MD IMG XR PROCEDURES documented in this encounter Visit Diagnoses Diagnosis Hip pain, right Pain in joint, pelvic region and thigh Hip pain, right Pain in joint, pelvic region and thigh documented in this encounter Care Teams Sewer And Inspector Relationship Specialty Start Date End Date Kevin Miranda MD PCP - General Family Medicine 11/20/[address] [place] [address] documented as of this encounter
--- OUTSIDE RECORDS SUMMARY | 2021-07-22 20:17 | XMS_ITS | Encounter Summary ---
:1945 Author Organization [facility] Address [address] [facility], [address] [place] [address] Care Team Providers Name Role Phone Laurie Elias NP Primary Care Provider Encounter Details Date Type Department Care Team Description 02/06/2019 Travel Social History Tobacco Use Types Packs/Day [...] on filedocumented in this encounter Care Teams Director Of Clinical Trials Relationship Specialty Start Date End Date Laurie Elias NP PCP - General Family Medicine 03/02/18 11/19/[address] [place] [address] documented as of this encounter
--- OUTSIDE RECORDS SUMMARY | 2021-07-22 20:17 | XMS_ITS | Encounter Summary ---
:1945 Author Organization [facility] Address [address] [facility], [address] [place] [address] Care Team Providers Name Role Phone Kevin Miranda MD Primary Care Provider Reason for Referral Diagnostic Imaging (Routine) - Closed Specialty Diagnoses / Procedures Referred By Contact Refer red To Contact Diagnoses Pain of right hand Jason Rodriguez MD Procedures X-ray Hand 3+ Views Right [address] [place] [address], [address] [place] [address] Referral ID Status Reason Start Date Expiration Date Visits Requ ested Visits Authorized [id number] Closed 02/23/2020 02/22/2021 1 1 Encounter Details Date Type Department Care Team Description 02/23/2020 Telemedicine Family Practice Grou p Jason Rodriguez MD Pain of right hand [address] [facility], [address] [place] [address], ( Primary Dx) [address] [place] [address] [place], [place] [phone] Social History Tobacco Use Types Packs/Day Years [...] / COVID-19? documented as of this encounter Progress Notes Jason Rodriguez MD - 02/23/2020 11:20 AM EST Subjective Molly Rios is a 75 y.o. female who presents for telephone telehealth visit HPI: Patient feel off of exercise ball last night, onto right wrist Hurt a lot, iced immediately Able to move finger and hand Sleep okright Less painful this morning VIDEO: ++bruising and swelling of right hand Good movement of right wrist and all 5 finger Bruising on guzman and dorsal aspect Painful on palpitation below pinking laterally above wrist No skin broken Can The following portions of the patient's history were reviewed and updated as appropriate: allergies,current medications, past medical history, past surgical history, past family history, past social history and problem list. Review of Systems Assessment/Plan Diagnoses and all orders for this visit: Pain of right hand Pain and swelling, but nml ROM of fingers and wrist Recommend imaging,but don't believe indication for ED visit paiten to check Xrays on Tuesday AM Discussed chu wrap or wrist splint until then Cont ICE and NSAIDS - X-ray Hand 3+ Views Right; Future In an effort to limit exposure to COVID-19, the patient's visit was performed as a telephone visit. Patient's verbal consent obtained by provider at the time of the service. The patient understands not all conditions can be adequately evaluated and treated through a virtual visit and may require an in-person medical evaluation. The patient understands that there may be co-pay / cost for the visit. The patient will follow-up in our clinic in . They know to call us sooner if there are any problems. counseling and/or coordination of care consisted of greater than 50% of visit of duration of at least minutes Telemedicine Communication method: Phone The physical location of the patient Adrianna HERNANDEZ The physical location of the provider MARY Hess The names of all persons participating in the telemedicine service and their role in the encounter. (thanh Rodriguez MD [facility] [address], [address] [facility] [id number] documented in this encounter Plan of Treatment Scheduled Orders Name Type Priority Associated Diagnoses Order S chedule X-ray Hand 3+ Views Imaging Routine Pain of right hand Ex pected: 02/23/2020, Right Expires: 2021 documented as of this encounter Visit Diagnoses Diagnosis Pain of right hand - Primary documented in this encounter Care Teams Manager E Commerce Relationship Specialty Start Date End Date Kevin Miranda MD PCP - General Family Medicine 11/20/[address] [place] [id number] documented as of this encounter
--- OUTSIDE RECORDS SUMMARY | 2021-07-22 20:17 | XMS_ITS | Encounter Summary ---
:1945 Author Organization [facility] Address [address] [facility], [address] [place] [address] Care Team Providers Name Role Phone Kevin Miranda MD Primary Care Provider Encounter Details Date Type Department Care Team Description 03/24/2020 Travel Social History Tobacco Use Types Packs/Day [...] on filedocumented in this encounter Care Teams Credit Collector Relationship Specialty Start Date End Date Kevin Miranda MD PCP - General Family Medicine 11/20/19 [facility] [place] [address] documented as of this encounter
--- OUTSIDE RECORDS SUMMARY | 2021-07-22 20:17 | XMS_ITS | Encounter Summary ---
:1945 Author Organization [facility] Address [address] [facility], [address] [place] [address] Care Team Providers Name Role Phone Kevin Miranda MD Primary Care Provider Encounter Details Date Type Department Care Team Description 02/23/2020 Travel Social History Tobacco Use Types Packs/Day [...] on filedocumented in this encounter Care Teams Tie Maker Relationship Specialty Start Date End Date Kevin Miranda MD PCP - General Family Medicine 11/20/19 [facility] [place] [address] documented as of this encounter
--- OUTSIDE RECORDS SUMMARY | 2021-07-22 20:17 | XMS_ITS | Encounter Summary ---
:1945 Author Organization [facility] Address [address] [facility], [address] [place] [address] Care Team Providers Name Role Phone Kevin Miranda MD Primary Care Provider Encounter Details Date Type Department Care Team Description 05/14/2020 Refill [facility] Pr actice Kevin Miranda MD [facility] [address] [address] [place] [address] [phone] (Wo rk) Social History Tobacco Use Types Packs/Day Years Used Date Former Smoker Smokeless Tobacco: Never Used Alcohol Use Standard Drinks/Week Comments Yes 5 (1 standard drink = 0.6 oz pure alcoho l) Sex Assigned at Date Recorded Female 04/12/2019 2:19 PM EST documented as of this encounter Miscellaneous Notes Telephone Encounter - Manpreet Bingham [place] - 05/14/2020 12:29 PM EDT cpe 11/23/19 documented in this encounter Plan of Treatment Not on filedocumented as of this encounter Visit Diagnoses Not on filedocumented in this encounter Care Teams Stitch Welder Relationship Specialty Start Date End Date Kevin Miranda MD PCP - General Family Medicine 11/20/[address] [place] [address] documented as of this encounter
--- OUTSIDE RECORDS SUMMARY | 2021-07-22 20:17 | XMS_ITS | Encounter Summary ---
:1945 Author Organization [facility] Address [address] [facility], [address] [place] [address] Care Team Providers Name Role Phone Laurie Elias TABLEAU LEAD Primary Care Provider Encounter Details Date Type Department Care Team Description 03/25/2019 Scan Document - View [facility] Trini Elias in Chart Practice TABLEAU LEAD [address] [place], [place] [id number] [facility] [phone] [place] [phone] Social History Tobacco Use Types Packs/Day Years [...] on filedocumented in this encounter Care Teams Financial Analyst Intern Relationship Specialty Start Date End Date Laurie Elias NP PCP - General Family Medicine 03/02/18 11/19/[address] [place] [address] documented as of this encounter
--- OUTSIDE RECORDS SUMMARY | 2021-07-22 20:17 | XMS_ITS | Encounter Summary ---
:1945 Author Organization [facility] Address [address] [facility], [address] [place] [address] Care Team Providers Name Role Phone Kevin Miranda MD Primary Care Provider Encounter Details Date Type Department Care Team Description 11/27/2019 Travel Social History Tobacco Use Types Packs/Day [...] filedocumented in this encounter Care Teams Manager Welding Relationship Specialty Start Date End Date Kevin Miranda MD PCP - General Family Medicine 11/20/19 [address] [place] [address] documented as of this encounter
--- OUTSIDE RECORDS SUMMARY | 2021-07-22 20:17 | XMS_ITS | Encounter Summary ---
:1945 Author Organization [facility] Address [address] [facility], [address] [place] [address] Care Team Providers Name Role Phone Laurie Elias BEAM DEPARTMENT SUPERVISOR Primary Care Provider Encounter Details Date Type Department Care Team Description 01/24/2019 Scan Document - View [facility] Trini Elias in Chart Practice BEAM DEPARTMENT SUPERVISOR [address] [place], [place] [id number] [facility] [phone] [place] [phone] Social History Tobacco Use Types Packs/Day Years [...] on filedocumented in this encounter Care Teams Graduate Assistant Relationship Specialty Start Date End Date Laurie Elias NP PCP - General Family Medicine 03/02/18 11/19/[address] [place] [address] documented as of this encounter
--- OUTSIDE RECORDS SUMMARY | 2021-07-22 20:17 | XMS_ITS | Encounter Summary ---
:1945 Author Organization [facility] Address [address] [facility], [address] [place] [address] Care Team Providers Name Role Phone Laurie Elias NP Primary Care Provider Encounter Details Date Type Department Care Team Description 04/12/2019 Travel Social History Tobacco Use Types Packs/Day [...] on filedocumented in this encounter Care Teams Qc Manager Relationship Specialty Start Date End Date Laurie Elias NP PCP - General Family Medicine 03/02/18 11/19/[address] [place] [address] documented as of this encounter
--- OUTSIDE RECORDS SUMMARY | 2021-07-22 20:17 | XMS_ITS | Encounter Summary ---
:1945 Author Organization [facility] Address [address] [facility], [address] [place] [address] Care Team Providers Name Role Phone Kevin Miranda MD Primary Care Provider Encounter Details Date Type Department Care Team Description 03/05/2020 Scan Document - View [facility] Kevin Miranda, in Chart Practice [address] [place], [place] [id number] [place], [place] [phone] Social History Tobacco Use Types Packs/Day Years [...] on filedocumented in this encounter Care Teams Gyn Relationship Specialty Start Date End Date Kevin Miranda MD PCP - General Family Medicine 11/20/[address] [place] [address] documented as of this encounter
--- OUTSIDE RECORDS SUMMARY | 2021-07-22 20:17 | XMS_ITS | Encounter Summary ---
:1945 Author Organization [facility] Address [address] [facility], [address] [place] [address] Care Team Providers Name Role Phone Laurie Elias NP Primary Care Provider Encounter Details Date Type Department Care Team Description 03/08/2019 Orders Only [facility] Pr actice Laurie Elias NP [address] [place] [address] [place] [address] [facility] [phone] [place], [place] [phone] (Wo rk) Social History [...] on filedocumented in this encounter Care Teams Lens Molder Relationship Specialty Start Date End Date Laurie Elias NP PCP - General Family Medicine 03/02/18 11/19/19 [address] [place] [address] documented as of this encounter
--- OUTSIDE RECORDS SUMMARY | 2021-07-22 20:17 | XMS_ITS | Encounter Summary ---
:1945 Author Organization [facility] Address [address] [facility], [address] [place] [address] Care Team Providers Name Role Phone Laurie Elias NP Primary Care Provider Reason for Visit Reason Comments Med Refill Encounter Details Date Type Department Care Team Description 06/06/2019 Refill [facility] Pr Laurie Brown NP [facility]0 [place] [address] [place] [address] [facility] [phone] [place], [place] [phone] (Wo rk) Social History [...] on filedocumented in this encounter Care Teams Health And Physical Education Teacher Relationship Specialty Start Date End Date Laurie Elias NP PCP - General Family Medicine 03/02/18 11/19/[address] [place] [address] documented as of this encounter
--- OUTSIDE RECORDS SUMMARY | 2021-07-22 20:17 | XMS_ITS | Encounter Summary ---
:1945 Author Organization [facility] Address 330 [facility], [address] [place] [address] Care Team Providers Name Role Phone Laurie Elias ANN Primary Care Provider Encounter Details Date Type Department Care Team Description 04/10/2019 Telephone [facility] Kevin Crowe MD [address] [place] [address] [place] [address] [place] [address] [phone] (Wo rk) Social History Tobacco Use Types Packs/Day Years Used Date Former Smoker Smokeless Tobacco: Never Used Alcohol Use Standard Drinks/Week Comments Yes 5 (1 standard drink = 0.6 oz pure alcoho l) Sex Assigned at Date Recorded Female 04/12/2019 2:19 PM EST documented as of this encounter Miscellaneous Notes Telephone Encounter - Kevin Miranda MD - 04/10/2019 5:02 PM EST Patient calling to check in. She is feeling overall much improved, but temperature went up to 100.5 this afternoon. Urinary symptoms have largely resolved. Lower abdominal pain has likewise resolved. She is tolerating small meals, bland foods, and staying well hydrated. Given overall improvement, planto continue with Augmentin course as prescribed. If fever persists, or if symptoms worsen, would consider CT. She will call tomorrow. documented in this encounter Plan of Treatment Not on filedocumented as of this encounter Visit Diagnoses Not on filedocumented in this encounter Care Teams Mold Closer Relationship Specialty Start Date End Date Laurie Elias NP PCP - General Family Medicine 03/02/18 11/19/19 [address] [place] [address] documented as of this encounter
--- OUTSIDE RECORDS SUMMARY | 2021-07-22 20:17 | XMS_ITS | Encounter Summary ---
:1945 Author Organization [facility] Address [address] [facility], [address] [place] [address] Care Team Providers Name Role Phone Laurie Elias NP Primary Care Provider Encounter Details Date Type Department Care Team Description 05/02/2019 Scan Document - View [facility] Kevin Miranda, in Chart Practice [address] [place], [place] [id number] [place], [place] [phone] Social History Tobacco Use Types Packs/Day Years [...] on filedocumented in this encounter Care Teams Hebrew Professor Relationship Specialty Start Date End Date Laurie Elias NP PCP - General Family Medicine 03/02/18 11/19/[address] [place] [address] documented as of this encounter
--- OUTSIDE RECORDS SUMMARY | 2021-07-22 20:17 | XMS_ITS | Encounter Summary ---
:1945 Author Organization [facility] Address [address] [facility], [address] [place] [address] Care Team Providers Name Role Phone Laurie Elias NP Primary Care Provider Encounter Details Date Type Department Care Team Description 12/06/2018 Travel Social History Tobacco Use Types Packs/Day [...] on filedocumented in this encounter Care Teams Formula Mixer Relationship Specialty Start Date End Date Laurie Elias NP PCP - General Family Medicine 03/02/18 11/19/[address] [place] [address] documented as of this encounter
--- OUTSIDE RECORDS SUMMARY | 2021-07-22 20:17 | XMS_ITS | Encounter Summary ---
:1945 Author Organization [facility] Address [address] [facility], [address] [place] [address] Care Team Providers Name Role Phone Kevin Miranda MD Primary Care Provider Reason for Referral Specialty (Routine) - Closed Specialty Diagnoses / Procedures Referred By Contact Refer red To Contact Orthopedic Surgery / Diagnoses Primary osteoarthritis of right hip Kevin Miranda MD Orthopaedic Surgery [address] [place] [address] Referral ID Status Reason Start Date Expiration Date Visits V isits Requested Authorized [id number] Closed Specialty 06/05/2020 06/05/2021 1 1 Services Required ehab (Routine) - Closed Specialty Diagnoses / Procedures Referred By Contact Refer red To Contact Physical Therapy Diagnoses Primary osteoarthritis of right hip Kevin Miranda MD [address] [place] [address] Referral ID Status Reason Start Date Expiration Date Visits V isits Requested Authorized [id number] Closed Specialty 06/05/2020 06/05/2021 1 1 Services Required Encounter Details Date Type Department Care Team Description 06/05/2020 Telemedicine [facility] Kevin Miranda, Primary osteoarthritis of right hip (Primary Dx); Practice MD Insomnia, unspecified type [address] [place], [place] [address] [address] [place] [address] [place], [place] [phone] Social History Tobacco Use Types Packs/Day Years Used Date Former Smoker Smokeless Tobacco: Never Used Alcohol Use Standard Drinks/Week Comments Yes 5 (1 standard drink = 0.6 oz pure alcoho l) Sex Assigned at Date Recorded Female 04/12/2019 2:19 PM EST documented as of this encounter Progress Notes Kevin Miranda MD - 06/05/2020 1:30 PM EDT Subjective Molly Rios is a 75 y.o. female who presents for telehealth visit due to current COVID-19 pandemic. HPI: Patient presents to discuss right hip osteoarthritis and insomnia. Recent x-ray revealed significant arthritic changes compared to 2 years prior. Total hip replacementwas recommended. She first saw Dr. Horn at [facility], who does anterior approach. She had a second opinion with Dr. Varela at [facility], who does the posterior approach. She wonders about the difference in approaches. Dr. Horn prescribed diclofenac 75 mg BID. She takes it PRN when pain flares. She has done some PT for it in the past, and is interested in returning prior to surgery. She takes doxepin 10 mg nightly for sleep. She also takes clonazepam 0.5 mg 1/4 tablet most nights. She has been falling asleep well. She wonders about trying to cut back on doxepin dosage. She has been taking fiber supplement nightly. She has not had a flare of diverticulitis in the past year. The following portions of the patient's history were reviewed and updated as appropriate: allergies,current medications, past medical history, past surgical history, past family history, past social history and problem list Assessment/Plan Problem List Items Addressed This Visit Musculoskeletal Primary osteoarthritis of right hip - Primary Addressed surgical questions to the best of my ability, no preference between approaches, more important that she is comfortable with the surgeon. She may pursue another opinion with Dr. Angel at [facility] for another anterior approach option. Continue diclofenac 75 mg BID PRN pain. Agree with PT priorto surgery as well and provided referral. Relevant Orders Ambulatory referral to Physical Therapy Ambulatory referral to Orthopedic Surgery Other Insomnia Well controlled on doxepin 10 mg and clonazepam 0.125 mg nightly for many years. Agree with a goal of tapering medication as tolerated. Start by decreasing doxepin to 6 mg QHS for 1 month, and if welltolerated, may decrease further to 3 mg nightly or discontinue. Follow up as needed. Relevant Medications doxepin 6 mg tablet Telemedicine Communication method: Phone The physical location of the patient: [place] The physical location of the provider: [facility] office Patient's verbal consent was obtained by Kevin Miranda MD. Verbal consent from the patient for a telemedicine visit was obtained at the time of the service. The patient understands not all conditions can be adequately evaluated and treated through a virtual visit and may require an in-person medical evaluation. The patient understands that there may be co-pay/cost for the visit. The patient was alsoinformed of how to reach a clinician in the event of an emergency or as otherwise needed. 25 minutes were spent on the day of this visit in preparation, evaluation, management, counseling, care coordination, and/or documentation. documented in this encounter Miscellaneous Notes Assessment & Plan Note - Kevin Miranda MD - 06/05/2020 1:53 PM EDTAssociated Problem(s): Insomnia Well controlled on doxepin 10 mg and clonazepam 0.125 mg nightly for many years. Agree with a goal of tapering medication as tolerated. Start by decreasing doxepin to 6 mg QHS for 1 month, and if well tolerated, may decrease further to 3 mg nightly or discontinue. Follow up as needed. Assessment & Plan Note - Kevin Miranda MD - 06/05/2020 1:52 PM EDTAssociated Problem(s): Primary osteoarthritis of right hip Addressed surgical questions to the best of my ability, no preference between approaches, more important that she is comfortable with the surgeon. She may pursue another opinion with Dr. Angel at [facility] for another anterior approach option. Continue diclofenac 75 mg BID PRN pain. Agree with PT prior to surgery as well and provided referral. documented in this encounter Plan of Treatment Scheduled Referrals Name Type Priority Associated Diagnoses Order S [facility] Ambulatory Outpatient Routine Primary osteoarthritis 1 Occ urrences referral to Referral of right hip starting Physical Therapy 06/05/2020 until 12/05/2020 Ambulatory Outpatient Routine Primary osteoarthritis 1 Occ urrences referral to Referral of right hip starting Orthopedic Surgery until 12/05/2020 documented as of this encounter Visit Diagnoses Diagnosis Primary osteoarthritis of right hip - Pr imary Insomnia, unspecified type documented in this encounter Care Teams Coal Handling Supervisor Relationship Specialty Start Date End Date Kevin Miranda MD PCP - General Family Medicine 11/20/[address] [place] [address] documented as of this encounter
--- OUTSIDE RECORDS SUMMARY | 2021-07-22 20:17 | XMS_ITS | Encounter Summary ---
:1945 Author Organization [facility] Address [address] [facility], [address] [place] [address] Care Team Providers Name Role Phone Kevin Miranda MD Primary Care Provider Encounter Details Date Type Department Care Team Description 01/08/2020 Telemedicine [facility] Kevin Miranda, Advance care planning Practice (Primary Dx) [facility] [address] [phone] Social History Tobacco Use Types Packs/Day Years Used Date Former Smoker Smokeless Tobacco: Never Used Alcohol Use Standard Drinks/Week Comments Yes 5 (1 standard drink = 0.6 oz pure alcoho l) Sex Assigned at Date Recorded Female 04/12/2019 2:19 PM EST documented as of this encounter Progress Notes Kevin Miranda MD - 01/08/2020 8:30 AM EST Subjective Molly Rios is a 74 y.o. female who presents for telehealth visit due to current COVID-19 pandemic. HPI: Patient calls to discuss advance care planning. Patient's twin brother recently. He had a fall and intracranial hemorrhage, and the patient had to make the decision not to pursue futile treatment on behalf of her brother. She realized the importance of having advanced directives organized and wanted to discuss. She does have a living will with her desires for potential end of life circumstances documented. HCP - Jourdan Brower Alternate - son Tariq Elliott The following portions of the patient's history were reviewed and updated as appropriate: allergies,current medications, past medical history, past surgical history, past family history, past social history and problem list. Assessment/Plan Problem List Items Addressed This Visit None Visit Diagnoses Advance care planning - Primary Discussed advance care planning generally and her wishes. She is full code, but would want a focus on quality of life in potential end of life scenarios - she will provide her detailed living will and health care proxy documentation for our records. Telemedicine Communication method: Phone The physical location of the patient: M[facility] Rodas The physical location of the provider: [facility] office Patient's verbal consent was obtained by [...] of an emergency or as otherwise needed. Total of 20 minutes visit of which greater than 50% was spent on counseling and care coordination. documented in this encounter Plan of Treatment Not on filedocumented as of this encounter Visit Diagnoses Diagnosis Advance care planning - Primary Other specified counseling documented in this encounter Care Teams Gallery Host Relationship Specialty Start Date End Date Kevin Miranda MD PCP - General Family Medicine 11/20/[address] [place] [address] documented as of this encounter
--- OUTSIDE RECORDS SUMMARY | 2021-07-22 20:17 | XMS_ITS | Encounter Summary ---
:1945 Author Organization [facility] Address [address] [facility], [address] [place] [address] Care Team Providers Name Role Phone Kevin Miranda MD Primary Care Provider Reason for Referral Rehab (Routine) - Closed Specialty Diagnoses / Procedures Referred By Contact Refer red To Contact Physical Therapy Diagnoses Right hip pain Kevin Miranda MD [address] [place] [address] Referral ID Status Reason Start Date Expiration Date Visits V isits Requested Authorized [id number] Closed Specialty 02/18/2020 02/17/2021 1 1 Services Required Encounter Details Date Type Department Care Team Description 02/18/2020 Orders Only Kevin Trimble, Right h ip pain (Primary Practice MD Dx) [address] [place] [address] Social History Tobacco Use Types Packs/Day Years Used Date Former Smoker Smokeless Tobacco: Never Used Alcohol Use Standard Drinks/Week Comments Yes 5 (1 standard drink = 0.6 oz pure alcoho l) Sex Assigned at Date Recorded Female 04/12/2019 2:19 PM EST documented as of this encounter Plan of Treatment Scheduled Referrals Name Type Priority Associated Order Schedule Diagnoses Ambulatory referral Outpatient Referral Routine Right hip pain 1 Occurrences to Physical Therapy starting 02/18/2020 until documented as of this encounter Visit Diagnoses Diagnosis Right hip pain - Primary Pain in joint, pelvic region and thigh documented in this encounter Care Teams Front Office Director Relationship Specialty Start Date End Date Kevin Miranda MD PCP - General Family Medicine 11/20/19 [address] [place] [address] documented as of this encounter
--- OUTSIDE RECORDS SUMMARY | 2021-07-22 20:17 | XMS_ITS | Encounter Summary ---
:1945 Author Organization [facility] Address [address] [facility], [id number] [place] [id number] Care Team Providers Name Role Phone Laurie Elias NP Primary Care Provider Reason for Referral Diagnostic Imaging (Routine) - Closed Specialty Diagnoses / Procedures Referred By Contact Refer red To Contact Diagnoses Hip pain, right Antolin Montana MD Procedures X-ray Hip 2-3 Views Right (Pelvis Optional) [address] [place] [address] Referral ID Status Reason Start Date Expiration Date Visits Requ ested Visits Authorized [id number] Closed 02/06/2019 02/06/2020 1 1 Reason for Visit Diagnostic Imaging (Routine) - Closed Specialty Diagnoses / Procedures Referred By Contact Refer red To Contact Diagnoses Hip pain, right Antolin Montana MD Procedures X-ray Hip 2-3 Views Right (Pelvis Optional) [address] [place] [address] Referral ID Status Reason Start Date Expiration Date Visits Requ ested Visits Authorized [id number] Closed 02/06/2019 02/06/2020 1 1 Encounter Details Date Type Department Care Team Description 02/06/2019 Hospital Encounter [facility] Jian Montana, Hip pain, right X-ray at [facility], [address] [place] [address] [facility], [address] [place] [address] [phone] (Work) [phone] Social History Tobacco Use Types Packs/Day Years [...] (CURCUMIN MISC) daily. 0 clonazePAM (KlonoPIN) Take 0.125 mg by 0 03/07/2019 0.5 mg tablet mouth nightly as needed. documented as of this encounter Plan of Treatment Not on filedocumented as of this encounter Procedures Procedure Name Priority Date/Time Associated Diagnosis Comme nts XR HIP 2-3 VW RIGHT Routine 02/06/2019 11:02 AM Hip pain, righ t Results for this (PELVIS OPTIONAL) EST procedure are in the results section. documented in this encounter Results X-ray Hip 2-3 Views [...] ation. Dictated: 02/06/2019 3:47 PM Report ID: [id number] Report signed in external system at 01/15 15:47 Reported By: Srinivasan Olson M.D. (resident ) ([id number]) Signed By: Jacoby Cunningham M.D. ([facility] ) Narrative 02/06/2019 3:47 PM EST RESPONSIBLE MEDICAL RECEPTIONIST MEDICAL ASSISTANT: Jacoby Cunningham M.D. EXAMINATION: XR HIP 2-3 [...] be different from the original. RESPONSIBLE MEDICAL RECEPTIONIST MEDICAL ASSISTANT: Jacoby Cunningham M.D. EXAMINATION: XR HIP 2-3 [...] ation. Dictated: 02/06/2019 3:47 PM Report ID: [id number] Report signed in external system at 01/15 15:47 Reported By: Srinivasan Olson M.D. (resident ) ([id number]) Signed By: Jacoby Cunningham M.D. ([facility] ) Antolin Montana MD IMG XR PROCEDURES documented in this encounter Visit Diagnoses Diagnosis Hip pain, right Pain in joint, pelvic region and thigh documented in this encounter Care Teams Upward Bound Director Relationship Specialty Start Date End Date Laurie Elias, ANN PCP - General Family Medicine 03/02/18 11/19/19 [address] [place] [address] documented as of this encounter
--- OUTSIDE RECORDS SUMMARY | 2021-07-22 20:17 | XMS_ITS | Encounter Summary ---
:1945 Author Organization [facility] Address [address] [facility], [address] [place] [address] Care Team Providers Name Role Phone Kevin Miranda MD Primary Care Provider Encounter Details Date Type Department Care Team Description 02/28/2019 Orders Only [facility] actice Provider, MD Harsh [address] [place] [id number] [phone] Social History Tobacco Use Types Packs/Day Years [...] Date/Time Associated Diagnosis Comme nts MAMMOGRAPHY Routine 02/12/2019 documented in this encounter Results MAMMOGRAPHY (02/12/2019) Anatomical Region Laterality Modality Other Narrative This result has an attachment that is no t available. Harsh Provider HEALTH MAINTENANCE documented in this encounter Visit Diagnoses Not on filedocumented in this encounter Care Teams Data Storage Specialist Relationship Specialty Start Date End Date Kevin Miranda MD PCP - General Family Medicine 11/20/19 [address] [place] [address] documented as of this encounter
--- OUTSIDE RECORDS SUMMARY | 2021-07-22 20:17 | XMS_ITS | Encounter Summary ---
:1945 Author Organization [facility] Address [address] [facility], [address] [place] [address] Care Team Providers Name Role Phone Kevin Miranda MD Primary Care Provider Encounter Details Date Type Department Care Team Description 06/04/2020 Travel Social History Tobacco Use Types Packs/Day [...] on filedocumented in this encounter Care Teams Teller Manager Relationship Specialty Start Date End Date Kevin Miranda MD PCP - General Family Medicine 11/20/[address] [place] [address] documented as of this encounter
--- OUTSIDE RECORDS SUMMARY | 2021-07-22 20:17 | XMS_ITS | Encounter Summary ---
:1945 Author Organization [facility] Address [address] [facility], [address] [place] [address] Care Team Providers Name Role Phone Kevin Miranda MD Primary Care Provider Encounter Details Date Type Department Care Team Description 03/27/2020 Scan Document - View [facility] Kevin Miranda, in Chart Practice [address] [place], [place] [id number] [place], [place] [phone] Social History Tobacco Use Types Packs/Day Years [...] on filedocumented in this encounter Care Teams Campus Coordinator Relationship Specialty Start Date End Date Kevin Miranda MD PCP - General Family Medicine 11/20/[address] [place] [address] documented as of this encounter
--- OUTSIDE RECORDS SUMMARY | 2021-07-22 20:17 | XMS_ITS | Encounter Summary ---
:1945 Author Organization [facility] Address [address] [facility], [address] [place] [address] Care Team Providers Name Role Phone Kevin Miranda MD Primary Care Provider Encounter Details Date Type Department Care Team Description 12/05/2019 Travel Social History Tobacco Use Types Packs/Day [...] on filedocumented in this encounter Care Teams Stone Grader Relationship Specialty Start Date End Date Kevin Miranda MD PCP - General Family Medicine 11/20/[address] [place] [address] documented as of this encounter
--- OUTSIDE RECORDS SUMMARY | 2021-07-22 20:17 | XMS_ITS | Encounter Summary ---
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 associated with radiculopathy, Lymphadenopathy, Oral candidiasis, Otitis externa, Pain of left thumb, Right lumbar pain, Shoulder tendonitis, Sinusitis, Tinnitus, URI (upper respiratory infection), Varicose vein of leg, and Vestibular neuronitis. Problem List She has GERD (gastroesophageal reflux disease); IBS (irritable bowel syndrome); Insomnia; Plantar fasciitis; Diverticulosis; Osteopenia; Fracture of left clavicle; Other emphysema ([facility]/HCC); Routine adult health maintenance; Anxiety and depression; Rosacea; Radiculopathy, lumbar region; Lateral knee pain, left; Diverticulitis; Dense breasts; H/O corneal abrasion; Disorder of rotator cuff; Depressive disorder; Deviated nasal septum; Dry eyes; Osteoarthritis; Meibomian gland dysfunction (MGD) of upperand lower lids of both eyes; Strabismus; Traumatic closed nondisplaced fracture of acromial end of clavicle with delayed healing; Varicose veins; Chronic sinusitis; Amblyopia; Tendinopathy of left gluteus medius; Primary osteoarthritis of right hip; Acute left ankle pain; Hiatal hernia; and Tinnitus of right ear on their problem list. Past Surgical History She has a past surgical history that includes Vein ligation and stripping (Bilateral); Knee arthroscopy and arthrotomy (Bilateral); Shoulder surgery (Left, 08/2016); and Excision benign skin lesion trunk / arm / leg (Left, 10/01/2016). Family History Her family history includes Cancer in her father; Coronary artery disease in her brother; Drug abusein her son; Emphysema in her brother and mother. Social History She reports that she has quit smoking. She has never used smokeless tobacco. She reports current alcohol use of about 5.0 - 8.0 standard drinks of alcohol per week. She reports that she does not use drugs. CURRENT MEDICATIONS AND ALLERGIES Current Medications No current facility-administered medications for this encounter. Current Outpatient Medications: ??? amoxicillin-pot clavulanate (AUGMENTIN) 875-125 mg per tablet, Take 1 tablet by mouth 2 (two) times a day for 7 days., Disp: 14 tablet, Rfl: 0 ??? b complex vitamins capsule, Take 1 capsule by mouth daily., Disp: , Rfl: ??? calcium carbonate (CALCIUM 500) 500 mg calcium (1,250 mg) chewable tablet, Take 1 tablet by mouth daily., Disp: , Rfl: ??? calcium citrate/vitamin D3 (CITRACAL REGULAR ORAL), Take 1 Dose by mouth. Pt takes 1 teaspoon a day in water., Disp: , Rfl: ??? ciprofloxacin (CIPRO) 250 mg tablet, Take 1 tablet (250 mg total) by mouth 2 (two) times a day for 7 days., Disp: 14 tablet, Rfl: 0 ??? clonazePAM (KlonoPIN) 0.5 mg tablet, Take 1 tablet (0.5 mg total) by mouth nightly as needed foranxiety. (Patient taking differently: Take 0.5 mg by mouth nightly as needed for anxiety. Pt takes 1/4 tablet (.125 mg total) prn ), Disp: 20 tablet, Rfl: 0 ??? doxepin (SINEquan) 10 mg capsule, Take 1 capsule (10 mg total) by mouth nightly. (Patient takingdifferently: Take 10 mg by mouth nightly. Pt uses prn ), Disp: 90 capsule, Rfl: 0 ??? metroNIDAZOLE (FLAGYL) 500 mg tablet, Take 1 tablet (500 mg total) by mouth 3 (three) times a day for 7 days., Disp: 21 tablet, Rfl: 0 ??? omega-3 fatty acids-fish oil (FISH OIL) 300-1,000 mg capsule, Take 1 g by mouth daily., Disp: , Rfl: ??? POLYETHYLENE GLYCOL 3350 ORAL, Take 17 g by mouth daily. Pt takes 1 dose prn, Disp: , Rfl: ??? TURMERIC (CURCUMIN MISC), daily. , Disp: , Rfl: Allergies Hydrocodone-acetaminophen; Oxycodone; and Opioids - morphine analogues PHYSICAL EXAMINATION Triage vital signs: ED Triage Vitals [04/13/19 1354] Temp Heart Rate Resp BP SpO2 100 ??F 87 18 136/86 98 % Temp Source Heart Rate Source Patient Position BP Location FiO2 (%) Tympanic Monitor Sitting Right arm -- Constitutional: No acute distress. No diaphoresis. HEAD: NCAT Eyes: Normal ocular motions. Normal conjunctiva. ENT: Moist membranes. No oral lesions. Cardiovascular: Regular rhythm. No murmurs, rubs, gallops Respiratory: Clear to ascultation bilaterally. Gastrointestinal: Abdomen non-distended. + mild tenderness in LLQ without rebound or guarding. Back: No CVAT Musculoskeletal: Normal range of motion. No deformities. Integumentary: Warm. No rashes. Neurologic: Awake and alert. Sensation and strength intact throughout. DATA Radiology No orders to display Laboratory Labs Reviewed CBC WITH AUTO DIFFERENTIAL - Abnormal Result Value WBC 5.55 nRBC 0 RBC 4.37 HGB 13.9 HCT 39.5 MCV 90.4 MCH 31.8 MCHC 35.2 PLT 283 RDW-CV 12.8 Segmented % 77.6 ABS Neutrophil 4.31 Lymphocytes % 8.5 (*) ABS Lymphocyte 0.47 (*) Monocytes % 12.6 (*) Abs Monocyte 0.70 Eosinophils % 0.0 ABS Eosinophils 0.00 Basophil % 0.9 ABS Basophils 0.05 IMM GRAN 0.4 ABS IMM GRAN 0.02 BASIC METABOLIC PANEL - Abnormal Sodium 134 (*) Potassium 4.3 CHLORIDE 100 CARBON DIOXIDE, TOTAL 24.0 ANION GAP 10.0 GLUCOSE 117 (*) BUN 10 CREATININE 0.5 GFR >60 CALCIUM 9.5 HEPATIC FUNCTION PANEL - Normal PROTEIN TOTAL 6.8 ALBUMIN 3.7 Bilirubin Total 0.4 BILIRUBIN DIRECT 0.2 AST (SGOT) 32 ALT 41 ALKALINE PHOSPHATASE 97 LIPASE - Normal LIPASE 65 BLOOD CULTURE BLOOD CULTURE URINALYSIS RAINBOW DRAW Narrative: The following orders were created for panel order [place] draw. Procedure Abnormality Status --------- ------ Gold Top[[id number]] In process Gold Top[[id number]] In process Light Blue Top[[id number]] In process Lavender Top[[id number]] Red Top[[id number]] In process Please view results for these tests on the individual orders. GOLD TOP GOLD TOP LIGHT BLUE TOP RED TOP ASSESSMENT : 74 y.o. F who presents with diverticulitis. PLAN : Exam, labs. Surgery consulted given sm fluid collection and second episode of diverticulitis. ED COURSE Emergency Department Course ED Course as of Apr 16 1551TueApr 13, 2019 1626 NSR, 81, nl intervals, no STEMI [DW] 1636 residential property manager has evaluated patient. [DW] 1702 Plan to admit to surgery. [] ED Course User Index [] Nelson Lopez MD [DW] Mitra Rocha MD Diagnosis Final diagnoses: [K63.0] Pericolonic abscess - - - - - - - - - - - - - - - - - - - - - - - - - - - - - - - - - - - - - - - - - - - - - - - - - - - - - - - - - - - - - - - - Details of any procedures performed during this visit are documented separately in Procedure notes. Portions of this electronic health record were generated with voice-recognition software. Mitra Rocha MD 04/16/19 1559 documented in this encounter Miscellaneous Notes Plan of Care - Aisha Bland RN - 04/14/2019 1:46 PM EST Goals: Clinical Goals for the Shift: IV fluids, Monitor Problem: Fluid and Electrolyte Imbalance Goal: Absence of imbalanced fluid volume signs and symptoms Outcome: Adequate for Discharge Goal: Electrolytes within specified parameters Outcome: Adequate for Discharge Problem: Infection Goal: Signs and symptoms of infection are decreased or absent Description INTERVENTIONS: 1. Assess and monitor patient for signs and symptoms of infection 2. Monitor and report abnormal lab values 3. Ensure aseptic care of all intravenous lines and invasive tubes/drains and wounds 4. Utilize isolation/special precautions as indicated 5. Consult Infection Prevention nurse as appropriate Outcome: Adequate for Discharge Identify possible barriers to meeting goals/advancing plan of care: na Stability of the patient: Moderately Stable - Low risk of patient condition declining or worsening End of Shift Summary: Patient alert and oriented x3, I. VSS LSCTA Denies SOB and CP. + BS x all 4 quads. Abd soft and nontender. Patient tolerated PO abx well and diet well. No issues noted. Patient medically [facility] DC paperwork gone over with patient. IV DC'd. Belongings returned to patient. Will DC home with when he arrives. Plan of Care - Chu Tomlin RN - 04/14/2019 3:36 AM EST History & Active Problems: Molly Rios has a past medical history of Actinic keratoses, Anxiety, Arthritis, CAD (coronary artery disease), Chondromalacia, Depression, Diverticulosis (10/28/2015), Dyspnea, Ganglion cyst, GERD (gastroesophageal reflux disease) (2004 on UGI), IBS (irritable bowel syndrome), Left knee pain, Low back pain potentially associated with radiculopathy, Lymphadenopathy, Oral candidiasis, Otitis externa, Pain of left thumb, Right lumbar pain, Shoulder tendonitis, Sinusitis, Tinnitus, URI (upper respiratory infection), Varicose vein of leg, and Vestibular neuronitis. And has a past surgical history that includes Vein ligation and stripping (Bilateral); Knee arthroscopy and arthrotomy (Bilateral); Shoulder surgery (Left, 08/2016); and Excision benign skin lesion trunk / arm / leg (Left, 10/01/2016). Active Hospital Problems Diverticulitis of intestine with abscess Pericolonic abscess Molly Rios is a 74 y.o. Female admitted on 04/13/2019 (Hospital Day: 1) who presented with persistent fevers, abd pain and diarrhea. Pt on 04/08 had gone to her PCP with a fever of 101.3m abd tenderness and diarrhea. Her PCP had started on Augmentin and her s/s had resolved. 04/11 she presented with the same symptoms, as well as nausea and anorexia. Today she came to [facility] ER with a temp of 100.5F and abd tenderness. Pt was started on IV Cipro and Flagyl. Pt transferred to , stable on arrival.\Blood pressure 128/77, pulse 81, temperature 36.8 ??C (98.3 ??F), resp. rate 18, height 1.727 m (5'8), weight 127 lb (57.6 kg), SpO2 96 %. Assessment: Pain Score: Pain Score: 0 - No pain Pain Interventions: none Response to Interventions: none Neuro/Mental Status: AOX4. Independent. Neuros grossly intact. Respiratory: LSCTAB. Unlabored, regular breathing. No use of abdominal or accessory muscles. Pt >96% on RA. Cardiac/Tele: Pt refusing tele. S1 and S2 heard. +PP. Cap refill less than 2 seconds. No edema. GI: Abd soft and non distended. RLQ tenderness. Pt denies current diarrhea or constipation. : Pt continent of urine. Pt denies dysuria, urgency or burning. Skin: D/C/I. Selected Test and Lab Results: Tests: Abd CT- Sigmoid diverticulitis with a tiny adjacent fluid collection consistent with an early abscess. No evidence of drainable fluid collection Activity/Mobility: Independent At Risk for Falls?: No Allergies: Hydrocodone-acetaminophen; Oxycodone; and Opioids - morphine analogues Adult Diet Clear Liquids Nutrition: good appeitite. AOX4. Independent in the room. Refusing MD Balwinder saenz aware. Pt oriented to floor, room and call melgoza. Pt refusing heparin. IV abx given per order. Pt c/o 02/23 headache. PRN 400 mg Ibuprofen given with adequate relief. Pt sleeping comfortably in bed, eager to go home tomorrow (?) Pt denies pain, SOBor CP. Bed locked in the lowest position, call melgoza within reach. Will continue to monitor documented in this encounter Plan of Treatment Not on filedocumented as of this encounter Procedures Procedure Name Priority Date/Time Associated Comments Diagnosis CBC WITH AUTO Routine 04/14/2019 6:03 AM Results for this DIFFERENTIAL EST procedure are i n the results section. C-REACTIVE PROTEIN Routine 04/14/2019 6:03 AM Res ults for this EST procedure are i n the results section. BASIC METABOLIC PANEL Routine 04/14/2019 6:03 AM Results for this EST procedure are i n the results section. BLOOD CULTURE STAT 04/13/2019 3:53 PM Results for this EST procedure are i n the results section. GOLD TOP STAT 04/13/2019 3:44 PM EST GOLD TOP STAT 04/13/2019 3:44 PM EST RED TOP STAT 04/13/2019 3:44 PM EST LIGHT BLUE TOP STAT 04/13/2019 3:44 PM EST RAINBOW DRAW STAT 04/13/2019 3:44 PM Results f or this EST procedure are i n the results section. BLOOD CULTURE STAT 04/13/2019 3:44 PM Results for this EST procedure are i n the results section. C-REACTIVE PROTEIN Add-On 04/13/2019 3:44 PM Res ults for this EST procedure are i n the results section. PHOSPHORUS Add-On 04/13/2019 3:44 PM Results f or this EST procedure are i n the results section. MAGNESIUM Add-On 04/13/2019 3:44 PM Results f or this EST procedure are i n the results section. LIPASE STAT 04/13/2019 3:44 PM Results f or this EST procedure are i n the results section. HEPATIC FUNCTION STAT 04/13/2019 3:44 PM Resul ts for this PANEL EST procedure are i n the results section. BASIC METABOLIC PANEL STAT 04/13/2019 3:44 PM Results for this EST procedure are i n the results section. CBC WITH AUTO STAT 04/13/2019 3:43 PM Results for this DIFFERENTIAL EST procedure are i n the results section. EKG STAT 04/13/2019 3:42 PM EST documented in this encounter Results (ABNORMAL) C-reactive protein (04/14/2019 6:03 AM EST) Analysis Performed At Path logist Time Signature C REACTIVE 28.5 (H) <10.0 mg/L 04/14/2019 [place] PROTEIN 9:10 AM [facility] Comment: This test should not be used to assess cardiovascular risk, for which a repeat order using the High Sensitivity CRP is recommended. Specimen Anatomical Collection Method Collection Time Receive d Time (Source) Location / / Volume Laterality Blood Venous blood / 04/14/2019 6:03 AM 020 7:08 Unknown EST AM EST Michele Watkins MD LAB BLOOD ORDERABLES Performing Organization Address City/State/ZIP Code Phon e Number [facility] [address] [place] [address] LABORATORY (ABNORMAL) CBC with Auto Differential (04/14/2019 6:03 AM EST) Patholo gist Method Time Signature WBC 3.43 (L) 4.00 to 04/14/2019 [place] 11.00 x 8:04 AM [facility] 10*3u/L LABORATORY 10*3/uL nRBC 0 0 - 0 04/14/2019 [place] /100 WBCs 8:04 AM [facility] RBC 3.95 3.90 to 04/14/2019 [place] 5.20 x 8:04 AM [facility] 10*6/uL LABORATORY 10*6/uL HGB 12.6 12.0 to 04/14/2019 [place] 16.0 g/dL 8:04 AM [facility] g/dL LABORATORY HCT 36.1 36.0% to 04/14/2019 [place] 46.0% % 8:04 AM [facility] MCV 91.4 80.0 to 04/14/2019 [place] 100.0 fL 8:04 AM [facility] fL LABORATORY MCH 31.9 26.0 - 04/14/2019 [place] 33.0 pg 8:04 AM [facility] MCHC 34.9 31.0 to 04/14/2019 [place] 37.0 g/dL 8:04 AM [facility] g/dL LABORATORY PLT 277 150 to 04/14/2019 [place] 350 x 8:04 AM [facility] 10*3u/l LABORATORY 10*3u/L RDW-CV 12.8 11.5 - 04/14/2019 [place] 14.5 % 8:04 AM [facility] Segmented % 55.6 30.0 - 04/14/2019 [place] 85.0 % 8:04 AM [facility] ABS Neutrophil 1.91 1.20 - 04/14/2019 [place] 9.30 8:04 AM [facility] 10*3/uL LABORATORY Lymphocytes % 26.5 15.0 - 04/14/2019 [place] 50.0 % 8:04 AM [facility] ABS Lymphocyte 0.91 0.60 - 04/14/2019 [place] 5.50 8:04 AM [facility] 10*3u/L LABORATORY Monocytes % 14.0 (H) 2.0 - 04/14/2019 [place] 12.0 % 8:04 AM [facility] Abs Monocyte 0.48 0.08 to 04/14/2019 [place] 1.30 x 8:04 AM [facility] 10*3u/L LABORATORY 10*3u/L Eosinophils % 0.9 0.0 - 5.0 04/14/2019 [place] % 8:04 AM [facility] ABS Eosinophils 0.03 0.00 to 04/14/2019 [place] 0.68 x 8:04 AM [facility] 10*3u/L LABORATORY 10*3u/L Basophil % 1.5 0.0 - 2.0 04/14/2019 [place] % 8:04 AM [facility] ABS Basophils 0.05 0.00 - 04/14/2019 [place] 0.20 8:04 AM [facility] 10*3/uL LABORATORY IMM GRAN 1.5 (H) 0.0 - 1.0 04/14/2019 [place] % 8:04 AM [facility] ABS IMM GRAN 0.05 0.00 - 04/14/2019 [place] 0.10 8:04 AM [facility] 10*3/uL LABORATORY Specimen Anatomical Collection Method Collection Time Receive d Time (Source) Location / / Volume Laterality Blood Venous blood / 04/14/2019 6:03 AM 020 7:12 Unknown EST AM EST Narrative [facility]ORY - 8:04 AM [facility] Immature granulocyte (IG %) % includes p romyelocytes, metamyelocytes, and myelocytes; but does not include bands. Bands are in cluded in the neutrophil count. An IG% greater than 1% represents a left shift and may be associated with (but not limited to) trauma, sepsis, infection, inflammat ion, myeloproliferative disorders and some medications. Michele Watkins MD LAB BLOOD ORDERABLES Performing Organization Address City/State/ZIP Code Phon e Number [facility] [address] [place] [address] LABORATORY (ABNORMAL) Basic metabolic panel (04/14/2019 6:03 AM [facility]) P athologist Signature Sodium 140 137 - 145 04/14/2019 [place] mmol/L 9:06 AM [facility] Potassium 4.0 3.5 - 5.1 04/14/2019 [place] mmol/L 9:06 AM [facility] CHLORIDE 105 98 - 107 04/14/2019 [place] mmol/L 9:06 AM [facility] CARBON DIOXIDE, 26.0 22.0 - 04/14/2019 [place] TOTAL 30.0 9:06 AM [facility] mmol/L LABORATORY ANION GAP 9.0 6 - 14 04/14/2019 [place] 9:06 AM [facility] GLUCOSE 91 70 - 99 04/14/2019 [place] mg/dL 9:06 AM [facility] BUN 6 (L) 7 - 17 04/14/2019 [place] mg/dL 9:06 AM [facility] CREATININE 0.6 0.5 - 1.0 04/14/2019 [place] mg/dL 9:06 AM [facility] GFR >60 04/14/2019 [place] 9:06 AM [facility] Comment: eGFR Reference Range: ? > 60 mL/min/1.73 Sq meter In Americans the eGFR should be multiplied by 1.212. CALCIUM 8.9 8.3 - 10.3 mg/dL 04/14/2019 9:06 AM [facility] Specimen Anatomical Collection Method Collection Time Receive d Time (Source) Location / / Volume Laterality Blood Venous blood / 04/14/2019 6:03 AM 020 7:07 Unknown EST AM EST Michele Watkins MD LAB BLOOD ORDERABLES Performing Organization Address City/[facility]/ZIP Code Phon e Number [place] [address] LABORATORY Blood culture (04/13/2019 3:53 PM EST) Patholo gist Method Time Signature Blood Culture No growth 5 04/18/2019 [place] days 4:02 PM [facility] Specimen Anatomical Collection Method / Collection Time Recei nancy Time (Source) Location / Volume Laterality Blood Venous blood / Venipuncture / 04/13/2019 3:53 04/13/19 20 3:58 Unknown Unknown PM EST PM EST Mitra Rocha MD LAB MICROBIOLOGY - GENERAL O RDERABLES Performing Organization Address City/State/ZIP Code Phon e Number [place] [address] LABORATORY Magnesium (04/13/2019 3:44 PM EST) P athologist Signature Magnesium 2.0 1.6 - 2.3 04/13/2019 [place] Blood mg/dL 7:49 PM [facility] Specimen Anatomical Collection Method / Collection Time Recei nancy Time (Source) Location / Volume Laterality Blood Venous blood / Venipuncture / 04/13/2019 3:44 04/13/19 20 3:58 Unknown Unknown PM EST PM EST Michele Watkins MD LAB BLOOD ORDERABLES Performing Organization Address City/State/ZIP Code Phon e Number [address] [address] LABORATORY Phosphorus (04/13/2019 3:44 PM EST) P athologist Signature PHOSPHATE 4.0 2.5 - 4.5 04/13/2019 [place] mg/dL 7:49 PM EST HOSPITAL LABORATORY Specimen Anatomical Collection Method / Collection Time Recei nancy Time (Source) Location / Volume Laterality Blood Venous blood / Venipuncture / 04/13/2019 3:44 04/13/19 20 3:58 Unknown Unknown PM EST PM EST Michele Watkins MD LAB BLOOD ORDERABLES Performing Organization Address City/State/ZIP Code Phon e Number [address] [address] LABORATORY (ABNORMAL) C-reactive protein (04/13/2019 3:44 PM EST) Analysis Performed At Patho logist Time Signature C REACTIVE 34.1 (H) <10.0 mg/L 04/13/2019 [place] PROTEIN 5:56 PM EST HOSPITAL LABORATORY Comment: This test should not be used to assess cardiovascular risk, for which a repeat order using the High Sensitivity CRP is recommended. Specimen Anatomical Collection Method / Collection Time Recei nancy Time (Source) Location / Volume Laterality Blood Venous blood / Venipuncture / 04/13/2019 3:44 04/13/19 20 3:58 Unknown Unknown PM EST PM EST Mitra Rocha MD LAB BLOOD ORDERABLES Performing Organization Address City/State/ZIP Code Phon e Number [address] [address] LABORATORY Red Top (04/13/2019 3:44 PM EST) Specimen Anatomical Collection Method / Collection Time Recei nancy Time (Source) Location / Volume Laterality Blood Venous blood / Venipuncture / 04/13/2019 3:44 04/13/19 20 3:59 Unknown Unknown PM EST PM EST Mitra Rocha MD LAB BLOOD ORDERABLES Performing Organization Address City/State/ZIP Code Phon e Number [address] [address] LABORATORY Light Blue Top (04/13/2019 3:44 PM EST) Specimen Anatomical Collection Method / Collection Time Recei nancy Time (Source) Location / Volume Laterality Blood Venous blood / Venipuncture / 04/13/2019 3:44 04/13/19 20 3:59 Unknown Unknown PM EST PM EST Mitra Rocha MD LAB BLOOD ORDERABLES Performing Organization Address City/[facility]/ZIP [facility] Phon e Number [address] [address] LABORATORY [place] (04/13/2019 3:44 PM EST) Specimen Anatomical Collection Method / Collection Time Recei nancy Time (Source) Location / Volume Laterality Blood Venous blood / Venipuncture / 04/13/2019 3:44 04/13/19 20 3:58 Unknown Unknown PM EST PM EST Mitra Rocha MD LAB BLOOD ORDERABLES Performing Organization Address [facility] Phon e Number [address] [address] LABORATORY Gold [place] (04/13/2019 3:44 PM EST) Specimen Anatomical Collection Method / Collection Time Recei nancy Time (Source) Location / Volume Laterality Blood Venous blood / Venipuncture / 04/13/2019 3:44 04/13/19 20 3:58 Unknown Unknown PM EST PM EST Mitra Rocha MD LAB BLOOD ORDERABLES Performing Organization Address City/[facility]/ZIP Code Phon e Number [address] [address] LABORATORY Blood culture (04/13/2019 3:44 PM EST) [facility] Method Time Signature Blood Culture No growth 5 04/18/2019 4:02 PM EST HOSPITAL LABORATORY Specimen Anatomical Collection Method / Collection Time Recei nancy Time (Source) Location / Volume Laterality Blood Venous blood / Venipuncture / 04/13/2019 3:44 04/13/19 20 3:58 Unknown Unknown PM EST PM EST Mitra Rocha MD LAB MICROBIOLOGY - GENERAL O RDERABLES Performing Organization Address City/[facility]/ZIP [facility] Phon e Number [address] [address] LABORATORY Lipase (04/13/2019 3:44 PM EST) P athologist Signature LIPASE 65 23 - 300 04/13/2019 [place] U/L 4:14 PM [facility]ORY Specimen Anatomical Collection Method / Collection Time Recei nancy Time (Source) Location / Volume Laterality Blood Venous blood / Venipuncture / 04/13/2019 3:44 04/13/19 20 3:58 Unknown Unknown PM EST PM EST Mitra Rocha MD LAB BLOOD ORDERABLES Performing Organization Address City/[facility]/ZIP Code Phon e Number [place] [address] LABORATORY Hepatic function panel (04/13/2019 3:44 PM EST) athologist Signature PROTEIN TOTAL 6.8 6.3 - 8.2 04/13/2019 [place] g/dL 4:14 PM [facility] ALBUMIN 3.7 3.5 - 5.0 04/13/2019 [facility] [place] g/dL 4:14 PM [facility] Bilirubin Total 0.4 0.2 - 1.3 04/13/2019 [facility] [place] mg/dL 4:14 PM [facility] BILIRUBIN DIRECT 0.2 0.0 - 0.4 04/13/2019 [facility] [place] mg/dL 4:14 PM [facility] LAB[facility]ORY AST (SGOT) 32 15 - 46 04/13/2019 [facility] [place] U/L 4:14 PM [facility] ALT 41 13 - 69 04/13/2019 [place] U/L 4:14 PM [facility] ALKALINE 97 38 - 126 04/13/2019 [place] PHOSPHATASE U/L 4:14 PM [facility] Specimen Anatomical Collection Method / Collection Time Recei nancy Time (Source) Location / Volume Laterality Blood Venous blood / Venipuncture / 04/13/2019 3:44 04/13/19 20 3:58 Unknown Unknown PM EST PM EST Mitra Rocha MD LAB BLOOD ORDERABLES Performing Organization Address City/State/ZIP Code Phon e Number [place] [address] LABORATORY (ABNORMAL) Basic metabolic panel w/GFR (04/13/2019 3:44 PM EST) Analysis Performed At Patho logist Time Signature Sodium 134 (L) 137 - 145 04/13/2019 [place] mmol/L 4:14 PM [facility] LABORATORY Potassium 4.3 3.5 - 5.1 04/13/2019 [place] mmol/L 4:14 PM [facility] CHLORIDE 100 98 - 107 04/13/2019 [place] mmol/L 4:14 PM [facility] CARBON DIOXIDE, 24.0 22.0 - 04/13/2019 [place] TOTAL 30.0 4:14 PM [facility] mmol/L LABORATORY ANION GAP 10.0 6 - 14 04/13/2019 [place] 4:14 PM [facility] GLUCOSE 117 (H) 70 - 99 04/13/2019 [place] mg/dL 4:14 PM [facility] BUN 10 7 - 17 04/13/2019 [place] mg/dL 4:14 PM [facility] CREATININE 0.5 0.5 - 1.0 04/13/2019 [place] mg/dL 4:14 PM [facility] GFR >60 04/13/2019 [place] 4:14 PM [facility] Comment: eGFR Reference Range: ? > 60 mL/min/1.73 Sq meter In Americans the eGFR should be multiplied by 1.212. CALCIUM 9.5 8.3 - 10.3 mg/dL 04/13/2019 4:14 PM [facility] Specimen Anatomical Collection Method / Collection Time Recei nancy Time (Source) Location / Volume Laterality Blood Venous blood / Venipuncture / 04/13/2019 3:44 04/13/19 20 3:58 Unknown Unknown PM [facility] EST Mitra Rocha MD LAB BLOOD ORDERABLES Performing Organization Address City/State/ZIP Code Phon e Number [facility] [address] [place] [address] LABORATORY (ABNORMAL) CBC auto differential (04/13/2019 3:43 PM EST) [facility] gist Method Time Signature WBC 5.55 4.00 to 04/13/2019 [place] 11.00 x 4:10 PM [facility] 10*3u/L LABORATORY 10*3/uL nRBC 0 0 - 0 04/13/2019 [place] /100 WBCs 4:10 PM [facility] LAB[facility]ATORY RBC 4.37 3.90 to 04/13/2019 [place] 5.20 x 4:10 PM [facility] 10*6/uL LABORATORY 10*6/uL HGB 13.9 12.0 to 04/13/2019 [place] 16.0 g/dL 4:10 PM [facility] g/dL LABORATORY HCT 39.5 36.0% to 04/13/2019 [place] 46.0% % 4:10 PM [facility] LABORATORY MCV 90.4 80.0 to 04/13/2019 [place] 100.0 fL 4:10 PM [facility] fL LABORATORY MCH 31.8 26.0 - 04/13/2019 [place] 33.0 pg 4:10 PM [facility] LABORATORY MCHC 35.2 31.0 to 04/13/2019 [place] 37.0 g/dL 4:10 PM [facility] g/dL LABORATORY PLT 283 150 to 04/13/2019 [place] 350 x 4:10 PM [facility] 10*3u/l LABORATORY 10*3u/L RDW-CV 12.8 11.5 - 04/13/2019 [place] 14.5 % 4:10 PM [facility] LABORATORY Segmented % 77.6 30.0 - 04/13/2019 [place] 85.0 % 4:10 PM [facility] LAB[facility] ABS Neutrophil 4.31 1.20 - 04/13/2019 [place] 9.30 4:10 PM [facility] 10*3/uL LABORATORY Lymphocytes % 8.5 (L) 15.0 - 04/13/2019 [place] 50.0 % 4:10 PM [facility] LABORATORY ABS Lymphocyte 0.47 (L) 0.60 - 04/13/2019 [place] 5.50 4:10 PM [facility] 10*3u/L LABORATORY Monocytes % 12.6 (H) 2.0 - 04/13/2019 [place] 12.0 % 4:10 PM [facility] LABORATORY Abs Monocyte 0.70 0.08 to 04/13/2019 [place] 1.30 x 4:10 PM [facility] 10*3u/L LABORATORY 10*3u/L Eosinophils % 0.0 0.0 - 5.0 04/13/2019 [place] % 4:10 PM [facility] LABORATORY ABS Eosinophils 0.00 0.00 to 04/13/2019 [place] 0.68 x 4:10 PM [facility] 10*3u/L LABORATORY 10*3u/L Basophil % 0.9 0.0 - 2.0 04/13/2019 [place] % 4:10 PM [facility] LABORATORY ABS Basophils 0.05 0.00 - 04/13/2019 [place] 0.20 4:10 PM [facility] 10*3/uL LABORATORY IMM GRAN 0.4 0.0 - 1.0 04/13/2019 [place] % 4:10 PM [facility] LAB[facility] ABS IMM GRAN 0.02 0.00 - 04/13/2019 [place] 0.10 4:10 PM [facility] 10*3/uL LABORATORY Specimen Anatomical Collection Method / Collection Time Recei nancy Time (Source) Location / Volume Laterality Blood Venous blood / Venipuncture / 04/13/2019 3:43 04/13/19 20 3:58 Unknown Unknown PM EST PM EST Mitra Rocha MD LAB BLOOD ORDERABLES Performing Organization Address City/State/ZIP Code Phon e Number [facility] [address] [place] [address] LABORATORY EKG (04/13/2019 3:42 PM EST) Specimen (Source) Anatomical Collection Method Collection Time Re ceived Time Location / / Volume Laterality 04/13/2019 3:42 PM EST Mitra Rocha MD ECG ORDERABLES Performing Organization Address City/State/ZIP Code Phon e Number [facility] [address] [facility] [place] [address] documented in this encounter Visit Diagnoses Diagnosis Diverticulitis of intestine with abscess - Primary Pericolonic abscess documented in this encounter Administered Medications Inactive Administered Medications - up to 3 most recent administrations Medication Order MAR Action Action Date Dose Rate Site ciprofloxacin (CIPRO) IVPB 400 New Bag 04/13/2019 8:27 PM EST 400 mg 200 mL/hr mg 400 mg, intravenous, at 200 mL/hr, Administer over 60 Minutes, Every 12 hours, First dose on Tue04/13/19 at 1705, Premix bag, Indication: Abscess ciprofloxacin (CIPRO) tablet 500 mg Given 04/14/2019 8:29 AM EST 500 mg 500 mg, oral, 2 times daily, First dose on Tue04/14/19 at 0900, For 14 days, Administer at least 2 hrs before or 6 hrs after oral calcium, magnesium, zinc, and iron containing products. To be given at least 1 hr before enteral feeding., Indication: Diverticulitis heparin (porcine) injection 5,000 Units 5,000 Units, subcutaneous, 3 times daily , First dose on Tue04/13/19 at 2100, Laura Assessment Score: -1, Does this patient have a conditi on that may require post-discharge VTE prophylaxis ([place]. abd ominopelvic surgery for malignancy or ortho surgery)? If yes is selected, a remind er will be sent to discharging provider to consider adding to discharge meds. No ibuprofen (ADVIL,MOTRIN) tablet 400 mg Given 04/13/2019 6:19 PM EST 400 mg 400 mg, oral, Once, On Tue04/13/19 at 1820, For 1 dose, Administer with food or milk to decrease GI upset Do not crush ibuprofen (ADVIL,MOTRIN) tablet 400 mg Given 04/13/2019 10:53 PM EST 400 mg 400 mg, oral, Every 6 hours PRN, mild pain (1-3), Starting on Tue04/13/19 at 2246, For 3 days, Administer with food or milk to decrease GI upset Do not crush lactated Ringer's infusion New Bag 04/13/2019 9:57 PM EST 75 mL/hr 75 mL/hr 75 mL/hr, intravenous, Continuous, Starting on Tue04/13/19 at 1705 metroNIDAZOLE (FLAGYL) IVPB 500 mg New Bag 04/14/2019 2:09 AM EST 500 mg 200 mL/hr 500 mg, intravenous, at 200 mL/hr, Administer over 30 Minutes, Every 8 hours, First dose on Tue04/13/19 at 1705, premix bag, Indication: Abscess Restarted 04/13/2019 9:59 PM EST 200 mL/hr New Bag 04/13/2019 6:08 PM EST 500 mg 200 mL/hr metroNIDAZOLE (FLAGYL) tablet 500 mg Given 04/14/2019 1:11 PM EST 500 mg 500 mg, oral, 3 times daily, First dose on Tue04/14/19 at 0815, For 14 days, Indication: Diverticulitis Given 04/14/2019 8:29 AM EST 500 mg ondansetron (ZOFRAN) injection 4 mg 4 mg, intravenous, Administer over 2-5 Minutes, Every 6 hours PRN, nausea, vomiting, Starting on Tue04/13/19 at 1702 sodium chloride 0.9 % bolus New Bag 04/13/2019 5:00 PM EST 1,000 m L 1000 mL/hr 1,000 mL 1,000 mL, intravenous, at 1,000 mL/hr, Administer over 1 Hours, Once, On Tue04/13/19 at 1640, For 1 dose documented in this encounter Active and Recently Administered Medications Times are shown in EST. Scheduled Medication Order 04/12/2019 04/13/2019 04/14/2019 ciprofloxacin (CIPRO) IVPB 400 mg (CANCELED) 184 (APR Hold - Provider: Automatic Transfer Provider - Reason: Unreviewed Transfer Orders)2011 (APR Unhold - Provider: Micheal Britt MD)2026 (New Bag - Provider: Chu Tomlin RN) 400 mg, intravenous, at 200 mL/hr, Admin ister over 60 Minutes, Every 12 hours, First dose on Tue04/13/19 at 1705, Premix bag, Indication: Abscess ciprofloxacin (CIPRO) tablet 500 mg 08 (Given - Provider: Aisha Bland RN) 500 mg, oral, 2 times daily, First dose on Tue04/14/19 at 0900, For 14 days, Administer at least 2 hrs before or 6 hrs after oral calcium, magnesium, zinc, and iron containing products. To be given at l east 1 hr before enteral feeding., Indication: Diverticulitis heparin (porcine) injection 5,000 Units 184 (APR Hold - Provider: Automatic Transfer Provider - Reason: Unreviewed Transfer Orders)2011 ([facility] Unhold - Provider: Micheal Britt MD)2100 (Not Given - Provider: Chu Tomlin RN - Reason: Patient/family refused) 0600 (Not Given - Provider: Chu Tomlin RN - Reason: Patient/family refused)1400 (Not Given - Provider: Aisha Bland RN - Reason: Patient/family refused) 5,000 Units, subcutaneous, 3 times daily , First dose on Tue04/13/19 at 2100, Laura Assessment Score: -1, Does this patient have a condition that may require post-discharge VTE prophylaxis ([place]. abdomino pelvic surgery for malignancy or ortho s urgery)? If yes is selected, a reminder will be sent to discharging provider to consider adding to discharge meds. No ibuprofen (ADVIL,MOTRIN) tablet 400 mg (COMPLETED) 1818 (Given - Provider: Remedios Garner RN) 400 mg, oral, Once, Tue04/13/19 at 1820, For 1 dose, Administer with food or milk to decrease GI upset Do not crush metroNIDAZOLE (FLAGYL) IVPB 500 mg (CANCELED) 1808 (New Bag - Provider: Remedios Garner RN)1838 (Stopped - Provider: Chu oTmlin, JANELL)1843 (MAR Hold - Provider: Automatic Transfer Provider - Reason: Unreviewed Transfer Orders)2011 (MAR Unhold - Provider: Micheal Britt MD) 0209 (New Bag - Provider: Letty Mcneal) 500 mg, intravenous, at 200 mL/hr, Admin ister over 30 Minutes, Every 8 hours, First dose on Tue04/13/19 at 1705, premix bag, Indication: Abscess 2158 (Restarted - Provider: Chu Tomlin RN - Comment: IV abx completed) metroNIDAZOLE (FLAGYL) tablet 500 mg 0829 (Given - Provider: Aisha Bland RN)1311 (Given - Provider: Aisha Bland RN) 500 mg, oral, 3 times daily, First dose on Tue04/14/19 at 0815, For 14 days, Indication: Diverticulitis sodium chloride 0.9 % bolus 1,000 mL (COMPLETED) 1700 (New Bag - Provider: Remedios Garner RN)1800 (Stopped - Provider: Chu Tomlin RN) 1,000 mL, intravenous, at 1,000 mL/hr, A dminister over 1 Hours, Once, Tue04/13/19 at 1640, For 1 dose Continuous Medication Order 04/12/2019 04/13/2019 04/14/2019 lactated Ringer's infusion 1705 (Not Giv en - Provider: Remedios Garner RN - Reason: Other - Comment: NS bolus infusing)184 (MAR Hold - Provider: Automatic Transfer Provider - Reason: Unreviewed Transfer Orders)2011 (MAR Unhold - Provider: Micheal Britt MD) 75 mL/hr, intravenous, at 75 mL/hr, Continuous, Starting Tue04/13/19 at 1705 2157 (New Bag - Provider: Chu Tomlin RN) PRN Medication Order 04/12/2019 04/13/2019 04/14/2019 ibuprofen (ADVIL,MOTRIN) tablet 400 mg 2 253 (Given - Provider: Chu Tomlin, RN) 400 mg, oral, Every 6 hours PRN, mild pa in (1-3), Starting Tue04/13/19 at 2246, For 3 days, Administer with food or milk to decrease GI upset Do not crush ondansetron (ZOFRAN) injection 4 mg 1843 (MAR Hold - Provider: Automatic Transfer Provider - Reason: Unreviewed Transfer Orders)2011 (MAR Unhold - Provider: Micheal Britt MD) 4 mg, intravenous, Administer over 2-5 M inutes, Every 6 hours PRN, nausea, vomiting, Starting Tue04/13/19 at 1702 documented in this encounter Care Teams Dye Automation Operator Relationship Specialty Start Date End Date Laurie Elias NP PCP - General Family Medicine 03/02/18 11/19/19 [address] [place] [address] documented as of this encounter
--- OUTSIDE RECORDS SUMMARY | 2021-07-22 20:17 | XMS_ITS | Encounter Summary ---
:1945 Author Organization [facility] Address [address], [address] [place] [address] Care Team Providers Name Role Phone Kevin Miranda MD Primary Care Provider Reason for Referral Diagnostic Imaging (Routine) - Closed Specialty Diagnoses / Procedures Referred By Contact Refer red To Contact Radiology Diagnoses Osteopenia, unspecified location Kevin Miranda MD Procedures DEXA Bone Density [facility] [address] [place] [id number] Referral ID Status Reason Start Date Expiration Date Visits Requ ested Visits Authorized [id number] Closed 01/07/2020 01/06/2021 1 1 Encounter Details Date Type Department Care Team Description 01/07/2020 Orders Only Kevin Trimble Osteope nia, unspecified Practice location (Primary Dx) [facility] [place] [address] [place] [id number] Social History Tobacco Use Types Packs/Day Years Used Date Former Smoker Smokeless Tobacco: Never Used Alcohol Use Standard Drinks/Week Comments Yes 5 (1 standard drink = 0.6 oz pure alcoho l) Sex Assigned at Date Recorded Female 04/12/2019 2:19 PM EST documented as of this encounter Plan of Treatment Not on filedocumented as of this encounter Results DEXA Bone Density [facility] [...] sheets). Dictated: 03/25/2020 1:12 PM Report ID: [id number] Report signed in external system at 03/25 13:12 Reported By: Joshua Arora M.D. ([facility]) Signed By: Joshua Arora M.D. ([facility]) Narrative 03/25/2020 1:12 PM EST RESPONSIBLE MORTGAGE LOAN PROCESSING CLERK: Joshua Arora M.D. EXAMINATION: DEXA BONE DENSITY [facility] CLINICAL INDICATION: Osteoporosis screening. ??Post menopause . TECHNIQUE: Dual Energy X-Ray Absorptiometry (DEXA t [facility]) was performed with measurements of the lumbar [...] might be different from the original. RESPONSIBLE MORTGAGE LOAN PROCESSING CLERK: Joshua Arora M.D. EXAMINATION: DEXA BONE DENSITY CENTRAL CLINICAL INDICATION: Osteoporosis screening. Post menopause. TECHNIQUE: Dual Energy X-Ray Absorptiometry (DEXA t [facility]) was performed with measurements of the lumbar [...] sheets). Dictated: 03/25/2020 1:12 PM Report ID: [id number] Report signed in external system at 03/25 13:12 Reported By: Joshua Arora M.D. ([facility]) Signed By: Joshua Arora M.D. ([facility]) Kevin Miranda MD IMG DXA PROCEDURES documented in this encounter Visit Diagnoses Diagnosis Osteopenia, unspecified location - Prima ry Osteopenia, unspecified location documented in this encounter Care Teams Cotton Baler Relationship Specialty Start Date End Date Kevin Miranda MD PCP - General Family Medicine 11/20/[address] [place] [id number] documented as of this encounter
--- OUTSIDE RECORDS SUMMARY | 2021-07-22 20:17 | XMS_ITS | Encounter Summary ---
:1945 Author Organization [facility] Address [address] [facility], [address] [place] [address] Care Team Providers Name Role Phone Kevin Miranda MD Primary Care Provider Encounter Details Date Type Department Care Team Description 12/06/2018 Procedure [facility] [address] [place] [phone] Social History Tobacco Use Types Packs/Day Years [...] on filedocumented in this encounter Care Teams Merchandising Stock Associate Relationship Specialty Start Date End Date Kevin Miranda MD PCP - General Family Medicine 11/20/[address] [place] [phone] documented as of this encounter
--- OUTSIDE RECORDS SUMMARY | 2021-07-22 20:17 | XMS_ITS | Encounter Summary ---
:1945 Author Organization [facility] Address [address] [facility], [address] [place] [address] Care Team Providers Name Role Phone Laurie Elias ANN Primary Care Provider Encounter Details Date Type Department Care Team Description 04/13/2019 Telephone [facility] Kevin Crowe MD [address] [place] [address] [place] [address] [place] [address] [phone] (Wo rk) Social History Tobacco Use Types Packs/Day Years Used Date Former Smoker Smokeless Tobacco: Never Used Alcohol Use Standard Drinks/Week Comments Yes 5 (1 standard drink = 0.6 oz pure alcoho l) Sex Assigned at Date Recorded Female 04/12/2019 2:19 PM EST documented as of this encounter Miscellaneous Notes Telephone Encounter - Kevin Miranda MD - 04/13/2019 12:47 PM EST Call to patient with diverticulitis, not responding adequately to oral antibiotics. Early abscess was noted on CT last night, and Augmentin was discontinued, started instead on ciprofloxacin and Flagyl. She has had 2 doses of cipro, 3 of Flagyl, and today does not feel any improvement. She still has ab dominal pain, worse after eating or drinking, night sweats, and fever (T100.5 this AM at home). She is referred to [facility] ED for treatment and she agrees. ED called and case reported prior to her arrival. documented in this encounter Plan of Treatment Not on filedocumented as of this encounter Visit Diagnoses Not on filedocumented in this encounter Care Teams Rivet Heater Gas Relationship Specialty Start Date End Date Laurie Elias NP PCP - General Family Medicine 03/02/18 11/19/19 [address] [place] [address] documented as of this encounter
--- OUTSIDE RECORDS SUMMARY | 2021-07-22 20:17 | XMS_ITS | Encounter Summary ---
:1945 Author Organization [facility] Address [address] [facility], [address] [place] [address] Care Team Providers Name Role Phone Laurie Elias NP Primary Care Provider Reason for Referral Specialty (Routine) - Closed Specialty Diagnoses / Procedures Referred By Contact Refer red To Contact Otolaryngology Diagnoses Tinnitus of right ear Kevin Miranda MD [address] [place] [address] Referral ID Status Reason Start Date Expiration Date Visits V isits Requested Authorized [id number] Closed Specialty 01/22/2019 01/22/2020 1 1 Services Required iagnostic Imaging (Routine) - Closed Specialty Diagnoses / Procedures Referred By Contact Refer red To Contact Diagnoses Dense breasts Kevin Miranda MD Procedures Ultrasound Breast Screening Automated Breast Volume Scanner (ABVS) Bilateral *screening ultrasounds only* [address] [place] [address] Referral ID Status Reason Start Date Expiration Date Visits Requ ested Visits Authorized [id number] Closed 01/22/2019 01/22/2020 1 1 iagnostic Imaging (Routine) - Closed Specialty Diagnoses / Procedures Referred By Contact Refer red To Contact Radiology Diagnoses Dense breasts Kevin Miranda MD Procedures MAMMOGRAPHY SCREENING MAMMOGRAM [address] [place] [address] Referral ID Status Reason Start Date Expiration Date Visits Requ ested Visits Authorized [id number] Closed 01/22/2019 01/22/2020 1 1 Reason for Visit Reason Comments Cerumen Impaction Encounter Details Date Type Department Care Team Description 01/22/2019 Office Visit Kevin Trimble Diverti culdavina (Primary Dx); Practice MD Tinnitus of right ear; [address] [place] [address] [place] [address] Hiatal hernia with GERD; [place], [place] [id number] [place] [address] Dense breasts [phone] Social History Tobacco Use Types Packs/Day Years Used Date Former Smoker Smokeless Tobacco: Never Used Alcohol Use Standard Drinks/Week Comments Yes 5 (1 standard drink = 0.6 oz pure alcoho l) Sex Assigned at Date Recorded Female 04/12/2019 2:19 PM EST documented as of this encounter Last Filed Vital Signs Vital Sign [place] Time Taken Comments Blood Pressure 108/68 01/22/2019 9:38 AM EST Pulse 69 01/22/2019 9:38 AM EST Temperature 36.8 ??C (98.2 ??F) 01/22/2019 9:38 AM EST Respiratory Rate - - Oxygen Saturation 97% 01/22/2019 9:38 AM EST Inhaled Oxygen Concentration - - Weight 58.7 kg (129 lb 6.4 oz) 01/22/2019 9:38 AM EST Height - - Body Mass Index 20.27 12/06/2018 8:52 AM EDT documented in this encounter Progress Notes Kevin Miranda MD - 01/22/2019 9:30 AM EST Subjective Patient ID: Molly Rios is a 73 y.o. female. HPI Patient presents for an office visit with complaint of tinnitus, stomach pain, and breast pain. When she came for her physical last year, Laurie Elias NP told her she had excess ear wax and recommended Debrox. Patient tried a few rounds of Debrox but didn't experience too much efficacy. She isnow reporting that she has some lower pitched tinnitus in her right ear. This will last a couple of days, and is most distracting at night when there is less ambient noise around. 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 When she does this, she experiences painon the left side but not the right side. Patient has complaint of tenderness intermittently in breasts. She suspects it is muscular. Due to her family history of breast cancer and dense breast tissue, she would like to get an ultrasound in addition to mammogram next week. Before Esther, patient was experiencing GI discomfort and having what she described as constant bowel movements, instead of her usual daily one in the morning. She had significant bilateral lowerabdominal pain at that time, but since Esther describes her bowel movements as back to normal and pain has resolved. She did not have fever, which was present during past episodes of diverticulitis. She has complaint of more frequent heartburn and notes that she was diagnosed with a hiatal hernia anumber of years ago. She used to experience it once a year and noticing discomfort more frequently now. She takes Pepcid AD to alleviate pain. The following portions of the patient's history were reviewed and updated as appropriate: allergies,current medications, past medical history, past surgical history, past family history, past social history and problem list. Review of Systems HENT: Positive for tinnitus (right ear, low tone). Negative for congestion, sinus pain, sore throat and trouble swallowing. Ear pain: Right ear pain, tinnitus. Gastrointestinal: Negative for abdominal pain, blood in stool, constipation, diarrhea, nausea, rectal pain and vomiting. Objective Physical Exam Vitals signs and nursing note reviewed. HENT: Head: Normocephalic and atraumatic. Right Ear: Tympanic membrane, ear canal and external ear normal. Left Ear: Tympanic membrane, ear canal and external ear normal. Abdominal: General: Abdomen is flat. Bowel sounds are normal. Palpations: Abdomen is soft. There is no mass. Tenderness: There is no tenderness. There is no guarding or rebound. Assessment/Plan Problem List Items Addressed This Visit Nervous Tinnitus of right ear Examination was normal. Referred to ENT for consultation but she declined. Gave referral anyway in case she changes her mind. Relevant Orders Ambulatory referral to ENT Digestive Diverticulosis - Primary In the last year, patient had a prolonged episode of diverticulitis that required 3 rounds of antibiotics. Her recent symptoms of GI discomfort may have been a mild flare that resolved on its own vs aself-limited gastroenteritis. We discussed a high fiber diet and monitoring for symptoms like fever,pain, change in bowel movements, and encouraged her to come in early with any symptoms or concerns. Musculoskeletal Hiatal hernia Recent flare in hiatal hernia and GERD symptoms. Recommended taking Pepcid AC 30 minutes before eating for about a week. Follow up as needed. Other Dense breasts Relevant Orders MAMMOGRAPHY SCREENING MAMMOGRAM Ultrasound Breast Screening Automated Breast Volume Scanner (ABVS) Bilateral *screening ultrasoundsonly* This documentation serves as a record of the services and decisions personally performed by Kevin Miranda MD. It was created by Razia Reina and was based on the provider's statements to me. I attest that I have reviewed this note and that the components of the history of the present illness, the physical exam, and the assessment and plan documented were performed by me or were performed in my presence by the student and/or biomedical specialist and verified by me. This note is an accurate record of the services performed and decisions made by Kevin Miranda MD. documented in this encounter Miscellaneous Notes Assessment & Plan Note - Kevin Miranda MD - 01/22/2019 12:27 PM ESTAssociated Problem(s): Diverticulosis In the last year, patient had a prolonged episode of diverticulitis that required 3 rounds of antibiotics. Her recent symptoms of GI discomfort may have been a mild flare that resolved on its own vs a self-limited gastroenteritis. We discussed a high fiber diet and monitoring for symptoms like fever, pain, change in bowel movements, and encouraged her to come in early with any symptoms or concerns. documented in this encounter Plan of Treatment Scheduled Orders Name Type Priority Associated Diagnoses Order S chedule MAMMOGRAPHY SCREENING Imaging Routine Dense breasts Expec lesly: 01/22/2019, MAMMOGRAM Expires: 2020 Ultrasound Breast Imaging Routine Dense breasts Expected: 01/22/2019, Screening Automated Expires: 07/23/2020 Breast Volume Scanner (ABVS) Bilateral *screening ultrasounds only* Scheduled Referrals Name Type Priority Associated Order Schedule Diagnoses Ambulatory referral Outpatient Referral Routine Tinnitus of ri ght 1 Occurrences to ENT ear starting 2018 until 0 documented as of this encounter Visit Diagnoses Diagnosis Diverticulosis - Primary Diverticulosis of colon (without mention of hemorrhage) Tinnitus of right ear Hiatal hernia with GERD Dense breasts Inconclusive mammogram documented in this encounter Care Teams Dandy Tender Relationship Specialty Start Date End Date Laurie Elisa NP PCP - General Family Medicine 03/02/18 11/19/19 [address] [place] [address] documented as of this encounter
--- OUTSIDE RECORDS SUMMARY | 2021-07-22 20:18 | XMS_ITS | Encounter Summary ---
:1945 Author Organization [facility] Address [address] [facility], [address] [place] [address] Care Team Providers Name Role Phone Laurie Elias NP Primary Care Provider Encounter Details Date Type Department Care Team Description 12/06/2018 Hospital Encounter [place] Po Astudillo am, MD Gastroenterology/Endosco [address] [facility], [address] [facility] [address] [place], [place] [id number] [place] [phone] Social History Tobacco Use Types Packs/Day Years Used Date Former Smoker Smokeless Tobacco: Never Used Alcohol Use Standard Drinks/Week Comments Yes 5 (1 standard drink = 0.6 oz pure alcoho l) Sex Assigned at Date Recorded Female 04/12/2019 2:19 PM EST documented as of this encounter Last Filed Vital Signs Vital Sign [place] Time Taken Comments Blood Pressure 117/56 12/06/2018 10:20 AM EDT Pulse 61 12/06/2018 10:20 AM EDT Temperature 37.1 ??C (98.8 ??F) 12/06/2018 9:23 AM EDT Respiratory Rate 14 12/06/2018 10:20 AM EDT Oxygen Saturation 98% 12/06/2018 10:20 AM EDT Inhaled Oxygen Concentration - - [...] INSTRUCTIONS: Please call Dr. Astudillo office at [phone] if you develop the following symptoms in [...] cecum, confirmed by appendiceal orifice, cecal strap (hopi's foot), and ileocecal valve. The scope was withdrawn and the mucosa was carefully examined. The quality of the preparation was good. The views were good. The patient's toleration of the procedure was good. Scope(s)/SN:[id number] Time Started: 09:32 Cecum Time: 09:42 Time Ended: 09:47 Estimated Blood Loss: None. Findings: There was evidence of severe diverticulosis in the descending colon. Otherwise, the colon appeared to be normal. Complications: There were no immediate complications. Impression: Severe diverticulosis found in the descending colon. No sign of active diverticulitis Recommendations: Colonoscopy recommended in 10 years. Procedure Codes: 89039 - colonoscopy G0500 - moderate sedation ICD-9 [...] cecum, confirmed by appendiceal orifice, cecal strap (hopi's foot), and ileocecal valve. The scope was withdrawn and the mucosa w as carefully examined. The quality of the preparation was good. The views were good. The patient's toleration of the procedure wa s good. Scope(s)/SN:[id number] Time Star lesly: 09:32 Cecum Time: 09:42 Time Ended: 09:47 Estimated Blood Loss: None. Findings: There was evidence of severe d iverticulosis in the descending colon. Otherwise, the colon a ppeared to be normal. Complications: There were no immediate c omplications. Impression: Severe diverticulosis found in the descending colon. No sign of active diverticulitis Recommendations: Colonoscopy recommended in 10 years. Procedure Codes: 83646 - colonoscopy G05 00 - moderate sedation [...] ORDERABLES documented in this encounter Visit Diagnoses Not [...] Pre-op documented in this encounter Care Teams Occup Ther Relationship Specialty Start Date End Date Laurie Elias NP PCP - General Family Medicine 03/02/18 11/19/19 [address] [place] [address] documented as of this encounter
--- OUTSIDE RECORDS SUMMARY | 2021-07-22 20:18 | XMS_ITS | Encounter Summary ---
:1945 Author Organization [facility] Address [address] [facility], [address] [place] [address] Care Team Providers Name Role Phone Laurie Elias NP Primary Care Provider Reason for Visit Reason Comments Annual Exam Encounter Details Date Type Department Care Team Description 06/08/2018 Office Visit Kaushik Elias, Annual phy sical exam (Primary Dx); Practice [facility] Screening for depression; [address] Diverticulitis; [place] [address] [place] Insomnia, unspecified type; [phone] [facility] Acute pain of right shoulder; [place], [place] Osteopenia, u nspecified location; [address] Lumbar facet arthropathy; [phone] Routine health maintenance; (Work) Bandemia; [phone] Hyperlipidemia, unspecified hyperlipidemia type; (Fax) Screening for l ipid disorders; Screening for d iabetes mellitus Social History Tobacco Use Types Packs/Day Years Used Date Former Smoker Smokeless Tobacco: Never Used Alcohol Use Standard Drinks/Week Comments Defer 0 (1 standard drink = 0.6 oz pure alcoho l) Sex Assigned at Date Recorded Female 04/12/2019 2:19 PM EST documented as of this encounter Last Filed Vital Signs Vital Sign Reading Time Taken Comments Blood Pressure 100/68 06/08/2018 3:58 PM EDT Pulse 68 06/08/2018 3:58 PM EDT Temperature 36.4 ??C (97.5 ??F) 06/08/2018 3:58 PM EDT Respiratory Rate - - Oxygen Saturation 97% 06/08/2018 3:58 PM EDT Inhaled Oxygen Concentration - - Weight 57.2 kg (126 lb) 06/08/2018 3:58 PM EDT Height 168.9 cm (5' 6.5) 06/08/2018 3:58 PM EDT Body Mass Index 20.03 06/08/2018 3:58 PM EDT documented in this encounter Progress Notes Laurie Elias, ANN - 06/08/2018 3:30 PM EDT John Rios is a 73 y.o. female and is here for a comprehensive physical exam. 1. Diverticulosis is stable since recent flare this past winter. No residual abdominal pain or low-grade fevers. She is taking miralax and fiber regularly. She plans to schedule a colonoscopy with Dr. Gorman over the next several months. 2. She receives regular dermatology care (q 6 months) at [facility] (Dr. Rosenberg). 3. She sees Dr. Harrison at [facility] for routine eye care 4. Sleep disorder: She has taken mirtazapine (up to 15 mg) in the past which didn't help at all. Currently using doxepin 10 mg capsules nightly, though she thinks it's more of a placebo effect. She is interesting in decreasing the dose and eventually weaning off. 5. Followed by Dr. Jason for lumbar facet arthropathy and currently undergoing PT 6. 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 For the past several weeks, she has been experiencing intermittent right shoulder pain. She denies any acute injury. She has taken a few weeks off of swimming, which has seemed to help. No numbness,weakness, or tingling of the right upper extremity. Patient denies headache, neck pain, double vision or blurry vision, numbness, tingling or focal weakness, back pain, chest pain, difficulty breathing, fever, chills or cough, abdominal pain, nausea or vomiting, urinary or bowel problems, pelvic pain or vaginal discharge, lower extremity pain or swelling, anxiety or depression. Family history: Reviewed with patient, no changes. Health Maintenance: Topics reviewed and she is up-to-date. Mammogram: 01/2018, colonoscopy 03/2015, PCV-13, PPV-23, and Tdap UTD. Shingrix due. Habits: Diet: Healthy omnivore. Caffeine: Tea (2-3 cups/day)- adds sugar/milk. Exercise: Swims (has taken a few weeks off of swimming due to above R shoulder pain), bikes, PT (back). Smoking: former (quit >30 years prior). ETOH: 1-1.5 glasses of wine/night. Review of Systems See HPI The following portions of the patient's history were reviewed and updated as appropriate: allergies,current medications, past medical history, past surgical history, past family history, past social history and problem list. Objective BP 100/68 Pulse 68 Temp 36.4 ??C (97.5 ??F) (Oral) Ht 1.689 m (5' 6.5) Wt 126 lb (57.2 kg) SpO2 97% BMI 20.03 kg/m?? General Appearance: Alert, well appearing female, in no apparent distress. Skin: Warm and dry HEENT: External examination normal, PERRL, TMs normal bilaterally, oral mucous membranes pink and moist, neck supple with no cervical or supraclavicular lymphadenopathy, thyroid without palpable enlargement or nodules Back: Atraumatic with non-tender spine, no CVA tenderness Breast exam: No tenderness, masses, or nipple abnormality, no subaxillary masses or nodules CVS: Heart with RRR, no RMG. Radial and pedal pulses palpated and are normal and equal bilaterally. No LE edema. Lungs: Clear with no crackles, wheezes or rhonchi, normal work of breathing Abdomen: Soft and non-tender with normal bowel sounds. No HSM Musculoskeletal: Extremities atraumatic with normal ROM. Right shoulder with normal ROM. Strength 5/5 BUE. Reflexes 2+ bilaterally. Neurologic: Alert and oriented ??3, moving all extremities equally, normal strength upper extremities bilaterally, normal gait and station, no focal neurologic deficits noted Psychiatric: Normal interaction, good eye contact, normal thought processes, normal affect PHQ-9 Score: 1 Assessment/Plan Healthy female exam. Reviewed and discussed age appropriate screening per AHRQ including BP, BMI and cancer screenings. As per orders below Patient Counseling: -- Nutrition: Stressed importance of moderation, eating a balanced diet -- Exercise: Stressed the importance of regular exercise. -- SPF 30 for skin cancer prevention Problem List Items Addressed This Visit Musculoskeletal Osteopenia Continue weightbearing exercise in addition to swimming. Repeat DEXA next year. Infectious/Inflammatory Diverticulitis Stable after recent flare. Continue miralax and fiber regimen. F/u with Dr. Gorman ([facility] gastroenterology) for routine f/u and colonoscopy. Relevant Orders Basic metabolic panel Other Insomnia She will try to gradually wean doxepin down to 9 mg over the next several weeks with the eventual goal of weaning off of medication entirely. Medication only comes in 3 mg tablets, capsules only with 10 mg dosing. She will consider adding natural calm (with magnesium) and weighted blanket as part of her sleep hygiene regimen Relevant Orders Basic metabolic panel Other Visit Diagnoses Annual physical exam - Primary Mammogram UTD. PCV-13, PPV23, Tdap UTD. Shingrix at pharmacy. Schedule colonoscopy. Repeat DEXA next year. Screening for depression - PHQ-9 negative for depression. CTM yearly and PRN. Acute pain of right shoulder - Improving since reducing aggravating activities - Strength and ROM intact, possibly aspect of rotator cuff tendonitis - Recommend continued avoidance of aggravating activities x 1-2 weeks - If no improvement (or worsening), she will follow-up with her established orthopedist Lumbar facet arthropathy Continue PT and f/u with Dr. Jason (physiatry) Routine health maintenance Relevant Orders Basic metabolic panel Lipid Panel with Reflex to Direct LDL CBC Bandemia Relevant Orders CBC Hyperlipidemia, unspecified hyperlipidemia type Relevant Orders Lipid Panel with Reflex to Direct LDL Screening for lipid disorders Relevant Orders Lipid Panel with Reflex to Direct LDL Screening for diabetes mellitus Follow up in one year for annual physical or prn. Laurie Elias NP documented in this encounter Miscellaneous Notes Assessment & Plan Note - Laurie Elias NP - 06/13/2018 3:02 PM EDTAssociated Problem(s): Osteopenia Continue weightbearing exercise in addition to swimming. Repeat DEXA next year. Assessment & Plan Note - Laurie Elias NP - 06/13/2018 2:58 PM EDTAssociated Problem(s): Insomnia She will try to gradually wean doxepin down to 9 mg over the next several weeks with the eventual goal of weaning off of medication entirely. Medication only comes in 3 mg tablets, capsules only with 10 mg dosing. Assessment & Plan Note - Laurie Elias NP - 06/13/2018 2:58 PM EDTAssociated Problem(s): Diverticulitis Stable after recent flare. Continue miralax and fiber regimen. F/u with Dr. Gorman ([facility] gastroenterology) for routine f/u and colonoscopy. documented in this encounter Plan of Treatment Not on filedocumented as of this encounter Procedures Procedure Name Priority Date/Time Associated Diagnosis Comme nts LIPID PANEL WITH Routine 06/27/2018 10:04 Routine health Resul ts for this REFLEX TO DIRECT AM EDT maintenance procedure are in LDL Hyperlipidemia, the results unspecified section. hyperlipidemia t ype Screening for lipid disorders CBC Routine 06/27/2018 10:04 Routine health Results f or this AM EDT maintenance procedure are in Bandemia the results section. BASIC METABOLIC Routine 06/27/2018 10:04 Routine health Result s for this PANEL AM EDT maintenance procedure are in Diverticulitis the results Insomnia, unspecified sectio n. type documented in this encounter Results CBC (06/27/2018 10:04 AM EDT) [facility] Method Time Signature White Blood 7.0 3.8 - 10.8 [facility] Count Thousand/u [place] [facility] Red Blood Count 4.30 3.80 - [facility] ics 5.10 [place] Million/uL [facility] Hemoglobin 13.3 11.7 - [facility] 15.5 g/dL [place] [facility] Hematocrit 40.2 35.0 - [facility] 45.0 % [place] [facility] MCV 93.5 80.0 - [facility] 100.0 fL [place] [facility] MCH 30.9 27.0 - [facility] 33.0 pg [place] [facility]My Single Pointt MCHC 33.1 32.0 - [facility] 36.0 g/dL [place] [facility] MRDW 12.6 11.0 - [facility] 15.0 % [place] [facility] Platelet count 321 140 - 400 Qu[employer] [facility] Thousand/u [place] L [employer] MPV 10.0 7.5 - 12.5 [facility] [employer] Specimen Anatomical Collection Method Collection Time Receive d Time (Source) Location / / Volume Laterality Blood Venous blood / 06/27/2018 10:04 9 Unknown AM EDT 10:04 AM EDT Narrative [facility] - 06/28/2018 4:45 AM EDT FASTING:YES FASTING: YES Laurie Elias NP LAB BLOOD ORDERABLES Performing Organization Address City/State/ZIP Code Phon e Number A and A [employer] [address] [phone] [place] [address] B [facility] [address] [place] [address] [employer] [address] [phone] [facility] (ABNORMAL) Lipid Panel with Reflex to Direct LDL (06/27/2018 10:04 AM EDT) [facility] Method Time Signature Cholesterol, 206 (H) <200 [facility] Total mg/dL [place] [employer] HDL Cholesterol 91 >50 mg/dL [facility] [employer] ics [place] [facility] TRIGS 53 <150 [facility] mg/dL [place] [employer] LDL Cholesterol 101 (H) mg/dL [facility] [employer] ics (calc) [place] [facility] Comment: Reference range: <100 Desirable range <100 mg/dL for primary p revention; ?? <70 mg/dL for patients with CHD or diabe tic patients with > or = 2 CHD risk factors. LDL-C is now calculated using the Santhosh Porras calculation, which is a validated novel method providing better accuracy than the Friedewald equa tion in the estimation of LDL-C. Santhosh CARTER et al. GEOVANNA. 2013;310(19): 206 1-2068 (http://education.[employer].Breezie/f aq/GLR047) HDL 2.3 <5.0 (calc) [facility] [place] [facility] Non HDL Chol. (LDL+VLDL) 115 <130 mg/dL (calc) [facility] [place] [employer] [facility] Comment: For patients with diabetes plus 1 major ASCVD risk factor, treating to a non-HDL-C goal of <100 mg/dL (LDL-C of <70 mg/dL) is considered a the rapeutic option. Specimen Anatomical Collection Method Collection Time Receive d Time (Source) Location / / Volume Laterality Blood Venous blood / 06/27/2018 10:04 9 Unknown AM EDT 10:04 AM EDT Narrative [facility] - 06/28/2018 4:45 AM EDT FASTING:YES FASTING: YES Laurie Elias NP LAB BLOOD ORDERABLES Performing Organization Address City/State/ZIP Code Phon e Number A and A [employer] [address] [phone] [place] [address], [address] [facility] [address] [place] [address] [employer] [address] [phone] Diagnost Basic metabolic panel (06/27/2018 10:04 AM EDT) athologist Signature Glucose 89 65 - 99 [facility] mg/dL [place] [facility] Comment: ? Fasting reference interv al Bun 23 7 - 25 mg/dL [facility] [place] [employer] [facility] Creatinine, Ser 0.73 0.60 - 0.93 mg/dL [facility] [place] [employer] [facility] Comment: For patients >49 years of age, the refer ence limit for Creatinine is approximately 13% high er for people identified as -[place]. eGFR NON-AFR. 83 > OR = 60 mL/min/1.73m2 Qu [facility] eGFR 96 > OR = 60 mL/min/1.73m2 Que [facility] [employer] [facility] BUN/Creatinine NOT APPLICABLE 6 - 22 (calc) [facility] Ratio [place] [facility] Sodium 142 135 - 146 mmol/L [facility] [place] [facility] [facility] Potassium 4.9 3.5 - 5.3 mmol/L [facility] [place] [facility] [facility] Chloride 105 98 - 110 mmol/L [facility] [place] [facility] CO2 32 20 - 32 mmol/L [facility] cs [place] [facility] Calcium 9.4 8.6 - 10.4 mg/dL [facility] [place] [facility] Specimen Anatomical Collection Method Collection Time Receive d Time (Source) Location / / Volume Laterality Blood Venous blood / 06/27/2018 10:04 9 Unknown AM EDT 10:04 AM EDT Narrative [facility] - 06/28/2018 4:45 AM EDT FASTING:YES FASTING: YES Laurie Elias NP LAB BLOOD ORDERABLES Performing Organization Address City/State/ZIP Code Phon e Number [employer] [address] [phone] [place] [address], [address] [facility] [address] [place] [address], [facility] [address] [phone] Diagnost documented in this encounter Visit Diagnoses Diagnosis Annual physical exam - Primary Routine general medical examination at a health care facility Screening for depression Diverticulitis Diverticulitis of colon (without mention of hemorrhage) Insomnia, unspecified type Acute pain of right shoulder Osteopenia, unspecified location Lumbar facet arthropathy Spondylosis of unspecified site without mention of myelopathy Routine health maintenance Unspecified examination Bandemia Hyperlipidemia, unspecified hyperlipidem ia type Screening for lipid disorders Screening for diabetes mellitus documented in this encounter Care Teams Lamp Stack Developer Relationship Specialty Start Date End Date Laurie Elias NP PCP - General Family Medicine 03/02/18 11/19/19 [address] [place] [address] documented as of this encounter
--- OUTSIDE RECORDS SUMMARY | 2021-07-22 20:18 | XMS_ITS | Encounter Summary ---
:1945 Author Organization [facility] Address [address] [facility], [address] [place] [address] Care Team Providers Name Role Phone Laurie Elias NP Primary Care Provider Encounter Details Date Type Department Care Team Description 03/07/2018 Telephone [facility] Pr Laurie Brown NP [address] [place] [address] [facility] [phone] Practice [place], [place] [address] (Wo rk) Social History Tobacco Use Types Packs/Day Years Used Date Former Smoker Smokeless Tobacco: Never Used Alcohol Use Standard Drinks/Week Comments Defer 0 (1 standard drink = 0.6 oz pure alcoho l) Sex Assigned at Date Recorded Female 04/12/2019 2:19 PM EST documented as of this encounter Miscellaneous Notes Telephone Encounter - Laurie Elias NP - 03/07/2018 4:43 PM EST TC to patient to check-in and review CT abdomen results. She reports - After 3 days on the abx, her pain resolved (no fevers) - Reintroduced solids 03/05/18 and started to experience some discomfort again - It was recommended that she revert back to liquid diet x 24 hours, which she has done since yesterday - She reports feeling better today, afebrile - She is going to try reintroducing some simple solids to her diet today to see how she tolerates this - We reviewed the other results of her CT scan, which showed: - Emphysematous changes within the lung bases (patient reports she is already are, denies SOB. She was a smoker ~30 years prior) - Large hiatal hernia (she reports she was already aware) - +Diverticulitis and ?ileus - Degenerative changes of the lumbar spine All other imaging appears normal. Patient verbalized understanding. We again reviewed strict ED precautions including: - fevers - inability to tolerate fluids - worsening abdominal pain - any new or worsening symptoms that concern her She verbalizes understanding and will plan to follow-up here on Tuesday or with GI if she is able to obtain an appointment documented in this encounter Plan of Treatment Not on filedocumented as of this encounter Visit Diagnoses Not on filedocumented in this encounter Care Teams Siebel Architect Relationship Specialty Start Date End Date Laurie Elias NP PCP - General Family Medicine 03/02/18 11/19/19 [address] [place] [address] documented as of this encounter
--- OUTSIDE RECORDS SUMMARY | 2021-07-22 20:18 | XMS_ITS | Encounter Summary ---
:1945 Author Organization [facility] Address [address] [facility], [address] [place] [address] Care Team Providers Name Role Phone Laurie Elias NP Primary Care Provider Encounter Details Date Type Department Care Team Description 05/15/2018 Travel Social History Tobacco Use Types Packs/Day [...] on filedocumented in this encounter Care Teams Quilting Supervisor Relationship Specialty Start Date End Date Laurie Elias NP PCP - General Family Medicine 03/02/18 11/19/[address] [place] [address] documented as of this encounter
--- OUTSIDE RECORDS SUMMARY | 2021-07-22 20:18 | XMS_ITS | Encounter Summary ---
:1945 Author Organization [facility] Address [address] [facility], [address] [place] [address] Care Team Providers Name Role Phone Laurie Elias NP Primary Care Provider Reason for Visit Reason Onset Date Comments Constipation 10/06/2018 Encounter Details Date Type Department Care Team Description 10/06/2018 Telephone [facility] Pr Kendra Grullon RN Constipation [address] [place] [address] Practice [phone] [address] [place], [place] [address] Social History Tobacco Use Types Packs/Day Years Used Date Former Smoker Smokeless Tobacco: Never Used Alcohol Use Standard Drinks/Week Comments Defer 0 (1 standard drink = 0.6 oz pure alcoho l) Sex Assigned at Date Recorded Female 04/12/2019 2:19 PM EST documented as of this encounter Miscellaneous Notes Telephone Encounter - Kendra Chow RN - 10/06/2018 11:08 AM EDT Having some constipation. Patient is using Miralx but not fiber. Patient will start fiber with Miralax and increase water watch for fever and pain. Patient is in [place] now. Patient will RTC if SXS worse. documented in this encounter Plan of Treatment Not on filedocumented as of this encounter Visit Diagnoses Not on filedocumented in this encounter Care Teams Chief Investment Officer Relationship Specialty Start Date End Date Laurie Elias, ANN PCP - General Family Medicine 03/02/18 11/19/19 [address] [place] [address] documented as of this encounter
--- OUTSIDE RECORDS SUMMARY | 2021-07-22 20:18 | XMS_ITS | Encounter Summary ---
:1945 Author Organization [facility] Address [address] [facility], [address] [place] [address] Care Team Providers Name Role Phone Laurie Elias ANN Primary Care Provider Encounter Details Date Type Department Care Team Description 03/29/2018 Rehab [facility] Physical Se lázaro Jason MD [address] [place], [place] [id number] Chronic low back pain, Therapy Pricila Curry, PT unspecified back pain [address] [facility], with [address] [place] [address] unspecified (Primary Dx) [phone] Social History Tobacco Use Types Packs/Day Years Used Date Former Smoker Smokeless Tobacco: Never Used Alcohol Use Standard Drinks/Week Comments Defer 0 (1 standard drink = 0.6 oz pure alcoho l) Sex Assigned at Date Recorded Female 04/12/2019 2:19 PM EST documented as of this encounter Progress Notes Pricila Curry, PT - 03/29/2018 12:30 PM EST Rehabilitation Services Physical Therapy [address] [facility], [address] [facility] [address] PROGRESS NOTE visit 4 ALBERT Rios is a 73 y.o. female.who has been referred to physical therapy by Dr. Jason with dx of R hip pain(decreased ROM, pelvic pain, groin pain, R SI pain, chronic glut medius tendinopathy). Pt reports she is a very active person at baseline. Noticed R LBP in June after swimming (changedher technique and pain improved). Pt seen by PT at [facility] for R hip pain. Started doing side lying hip abd with 5 lb. Developed more pain (? Overdid her ex). + R sided groin pain. CC is weakness B hips. Referred to PT for consult. Will f/u with MD after completion of PT. Seen by ortho at [facility]-x-rays done, advised to strengthen/stretch R LE. ?? MRI done L-spine 2018: Demonstrated degenerative findings. Disc bulges at L2, L4 and L5. At L2 thereis moderate R sided foraminal narrowing, may contact R L2 nerve root (which could explain ant thigh pain). At L5, R neuroforaminal narrowing. At L4, disc protrusion to the L contact the left L 5 nerve root. Has done dry needling to R hip with Dr. Shaw in the past Dr. Jason suggested PRP to R hip if needed Subjective Pt reports she likes the hip abd exercises Objective Pain at rest:03/26- 03/26 R hip/groin/LB Func: swimming is ok, less spasms R piriformis Treatment: ex Stretching to R hip adductors in supine Foam roller to R piriformis, R hamstring, R Quad/Hip flexors Clam shell R (with green band), Reverse clam shell R x 10 Hip abd R in side lying x 10, circles cw/ccw (1 lb) Hamstring stretch R (IR/ER) Bridge R/L x 10, bridge with april Quadruped arm and leg lift (on green ball) SLS R/L Front plank (elbows bent, leg straight and one leg lift) SLR R (neutral and ER)- 1 lb Monster walks (forward/back/side) with green band ?? Encouraged to continue with swimming/riding bike as sx permit Assessment/Plan + weakness remains B LE, but pt doing very well with ex Plan: to see Cruzito Ventura (re: knee pain- Had MRI done). F/u here next week. ? Can d/c with HEP soon Pricila Curry, PT 03/29/2018 documented in this encounter Plan of Treatment Not on filedocumented as of this encounter Visit Diagnoses Diagnosis Chronic low back pain, unspecified back pain laterality, with sciatica presence unspecified - Primary documented in this encounter Care Teams Gas Leak Tester Relationship Specialty Start Date End Date Laurie Elias NP PCP - General Family Medicine 03/02/18 11/19/19 [address] [place] [address] documented as of this encounter
--- OUTSIDE RECORDS SUMMARY | 2021-07-22 20:18 | XMS_ITS | Encounter Summary ---
:1945 Author Organization [facility] Address [address] [facility], [address] [place] [address] Care Team Providers Name Role Phone Laurie Elias NP Primary Care Provider Encounter Details Date Type Department Care Team Description 06/22/2018 Travel Social History Tobacco Use Types Packs/Day [...] on filedocumented in this encounter Care Teams Job Putter Up And Ticket Preparer Relationship Specialty Start Date End Date Laurie Elias NP PCP - General Family Medicine 03/02/18 11/19/[address] [place] [address] documented as of this encounter
--- OUTSIDE RECORDS SUMMARY | 2021-07-22 20:18 | XMS_ITS | Encounter Summary ---
:1945 Author Organization [facility] Address [address] [facility], [address] [place] [address] Care Team Providers Name Role Phone Laurie Elias NP Primary Care Provider Encounter Details Date Type Department Care Team Description 03/03/2018 Orders Only [facility] Pr actLaurie Carr NP [address] [place], [place] [id number] [facility] [phone] [place], [place] [phone] (Wo rk) Social History [...] on filedocumented in this encounter Care Teams Spool Winder Relationship Specialty Start Date End Date Laurie Elias NP PCP - General Family Medicine 03/02/18 11/19/19 [address] [place] [address] documented as of this encounter
--- OUTSIDE RECORDS SUMMARY | 2021-07-22 20:18 | XMS_ITS | Encounter Summary ---
:1945 Author Organization [facility] Address 330 [facility], [address] [place] [address] Care Team Providers Name Role Phone Laurie Elias ANN Primary Care Provider Encounter Details Date Type Department Care Team Description 03/07/2018 Telephone [facility] Dallas zurita MD [facility] 330 [facility], 300 [facility] t, [facility] [address] [place], [place] [id number] [place] [address] [phone] (Wo rk) Social History Tobacco Use Types Packs/Day Years Used Date Former Smoker Smokeless Tobacco: Never Used Alcohol Use Standard Drinks/Week Comments Defer 0 (1 standard drink = 0.6 oz pure alcoho l) Sex Assigned at Date Recorded Female 04/12/2019 2:19 PM EST documented as of this encounter Miscellaneous Notes Telephone Encounter - Dallas Gorman MD - 03/07/2018 1:17 PM EST I called the patient and discussed her progress with acute diverticulitis. She is on antibiotics andshe has a low grade fever. We discussed the ABD CT scan results with her. Since she had an ileus, she is on liquids for 24 hours and then gradually advancing her diet. This is her second episode. WRB documented in this encounter Plan of Treatment Not on filedocumented as of this encounter Visit Diagnoses Not on filedocumented in this encounter Care Teams Automotive Heavy Mechanic Relationship Specialty Start Date End Date Laurie Elias, ANN PCP - General Family Medicine 03/02/18 11/19/19 [address] [place] [address] documented as of this encounter
--- OUTSIDE RECORDS SUMMARY | 2021-07-22 20:18 | XMS_ITS | Encounter Summary ---
:1945 Author Organization [facility] Address [address] [facility], [address] [place] [address] Care Team Providers Name Role Phone Laurie Elias ANN Primary Care Provider Encounter Details Date Type Department Care Team Description 03/21/2018 Telephone [facility] Rola phillips PA [facility] 330 [facility], 300 [facility], [facility] [address] [place], [place] [id number] [place] [address] [phone] (Wo rk) Social History Tobacco Use Types Packs/Day Years Used Date Former Smoker Smokeless Tobacco: Never Used Alcohol Use Standard Drinks/Week Comments Defer 0 (1 standard drink = 0.6 oz pure alcoho l) Sex Assigned at Date Recorded Female 04/12/2019 2:19 PM EST documented as of this encounter Miscellaneous Notes Telephone Encounter - MONAE Henson - 03/21/2018 5:16 PM EST She has been following with Dr. Gorman for recurrent diverticulitis recently. She most recently failed a course of Augmentin and was subsequently put on a course of flagyl, which she just finished Tuesday. She is largely feeling better, but does still have some mild residual symptoms including low grade temperature, 99's with some sweating O/N as well as occasional twinges of pain where the diverticulitis pain had been. She is otherwise doing well, is hungry and not having worsening pain or symptoms with eating. She is moving her bowels, stools are formed and without blood. She has been able to go back to some exercise, including swimming. Discussed watching these symptoms for the next couple of days to see in which way they go. If symptoms are persistent or worsening then she will need to come in for re-evaluation. This may be best donein urgent care or ER to r/o possible other sources of infection though plan to be in touch to help decide this if sx persist. However, If she is feeling significantly worse in the interim then should come to the ER. Rola Parkinson PA-C Telephone Encounter - Laura Mak MA - 03/21/2018 12:43 PM EST She finished her Flagyl for her diverticulitis flare and her fever has returned. She would like to know what the next step should be. documented in this encounter Plan of Treatment Not on filedocumented as of this encounter Visit Diagnoses Not on filedocumented in this encounter Care Teams Sales Order Specialist Relationship Specialty Start Date End Date Laurie Elias NP PCP - General Family Medicine 03/02/18 11/19/19 [address] [place] [address] documented as of this encounter
--- OUTSIDE RECORDS SUMMARY | 2021-07-22 20:18 | XMS_ITS | Encounter Summary ---
:1945 Author Organization [facility] Address [address] [facility], [address] [place] [address] Care Team Providers Name Role Phone Laurie Elias NP Primary Care Provider Encounter Details Date Type Department Care Team Description 07/05/2018 Travel Social History Tobacco Use Types Packs/Day [...] on filedocumented in this encounter Care Teams Molder Machine Relationship Specialty Start Date End Date Laurie Elias NP PCP - General Family Medicine 03/02/18 11/19/[address] [place] [address] documented as of this encounter
--- OUTSIDE RECORDS SUMMARY | 2021-07-22 20:18 | XMS_ITS | Encounter Summary ---
:1945 Author Organization [facility] Address [address] [facility], [address] [place] [address] Care Team Providers Name Role Phone Laurie Elias ANN Primary Care Provider Encounter Details Date Type Department Care Team Description 05/02/2018 Rehab [facility] Physical Se lázaro Jason MD [address] [place], [place] [phone] Chronic low back pain, Therapy Pricila Curry, PT unspecified back pain [address] [facility], with [address] [place] [address] unspecified (Primary Dx) [phone] Social History Tobacco Use Types Packs/Day Years Used Date Former Smoker Smokeless Tobacco: Never Used Alcohol Use Standard Drinks/Week Comments Defer 0 (1 standard drink = 0.6 oz pure alcoho l) Sex Assigned at Date Recorded Female 04/12/2019 2:19 PM EST documented as of this encounter Progress Notes Pricila Curry, PT - 05/02/2018 12:00 PM EDT [facility] [address] [facility], [address] [facility] [address] PROGRESS NOTE visit 7 ALBERT Rios is a 73 y.o. female.who has been referred to physical therapy by Dr. Jason with dx of R hip pain(decreased ROM, pelvic pain, groin pain, R SI pain, chronic glut medius tendinopathy). Pt reports she is a very active person at baseline. Noticed R LBP in June after swimming (changedher technique and pain improved). Pt seen by PT at [facility] [place]. Started doing side lying hip abd with 5 lb. Developed more pain (? Overdid her ex). + R sided groin pain. CC is weakness B hips. Referred to PT for consult. Will f/u with MD after completion of PT. Seen by ortho at [facility] done, advised to strengthen/stretch R LE. ?? [...] suggested PRP to R hip if needed 04/05/18: new order from Ellie Ventura- R knee OA: Knee ROM and strengthening, stretch and strengthen hams/quads, modalities PRN MRI done 04/13/18: R knee lateral patellar tilt, PF chondromalacia changes, more prominent laterally with full thickness chrondral loss and subchondral cystic change/marrow edema. Distal quad teninopathy/interstitial fissuring with underlying synovial inflammation in the suprapatellar/quad fat pad Small marrow edema associated with anterior medial femoral condyle osteophytes, possibly stress response. No meniscal, cruciate ligament tear is present Mild joint fluid/effusion with mild diffuse synovial inflammation Popliteal cyst Had MRI done R foot (ordered by Dr. Hicks)- dx with bangura's neuroma (advised to look into cortisone injection) Subjective + c/o R sided Low back/groin pain Objective Pain at rest:0/10-4/10 R hip/groin/LB Func: attended Yoga class, + pain remains with walking Treatment: ex Long axis distraction R hip, R pelvic rocking in side lying Stretching to R hip adductors in supine Arnulfo stretch R, clam shell/reverse clam shell R, quad stretch R Hamstring stretch R/L (neutral and with ER/IR) Wall sit (with emphasis on L LE) SLR R/L x 10 (neutral and with ER) Front plank (elbows bent, legs straight)-with leg lift (as tolerated) Reviewed: Foam roller to R piriformis, R hamstring, R Quad/Hip flexors Quadruped arm and leg lift (on green ball) SLS R/L Monster walks (forward/back/side) with green band Bridge with april, bridge on green ball ?? Encouraged to continue with swimming/riding bike as sx permit Assessment/Plan Pt with less pain R hip/groin and LB area after long axis distraction R hip and stretching R hip flexors/adductors and quads Plan: encouraged to continue with stretches. May call ortho Re: R hip (compare old x-rays) F/u next week, treat as indicated Pricila Curry, PT 05/02/2018 documented in this encounter Plan of Treatment Not on filedocumented as of this encounter Visit Diagnoses Diagnosis Chronic low back pain, unspecified back pain laterality, with sciatica presence unspecified - Primary documented in this encounter Care Teams Survey Analyst Relationship Specialty Start Date End Date Laurie Elias NP PCP - General Family Medicine 03/02/18 11/19/19 [address] [place] [address] documented as of this encounter
--- OUTSIDE RECORDS SUMMARY | 2021-07-22 20:18 | XMS_ITS | Encounter Summary ---
:1945 Author Organization [facility] Address 330 [facility], [address] [place] [address] Care Team Providers Name Role Phone Laurie Elias NP Primary Care Provider Encounter Details Date Type Department Care Team Description 03/13/2018 Travel Social History Tobacco Use Types Packs/Day [...] on filedocumented in this encounter Care Teams Bonding Machine Operator Relationship Specialty Start Date End Date Laurie Elias NP PCP - General Family Medicine 03/02/18 11/19/[address] [place] [address] documented as of this encounter
--- OUTSIDE RECORDS SUMMARY | 2021-07-22 20:18 | XMS_ITS | Encounter Summary ---
:1945 Author Organization [facility] Address [address] [facility], [address] [place] [address] Care Team Providers Name Role Phone Laurie Elias ANN Primary Care Provider Encounter Details Date Type Department Care Team Description 04/26/2018 Rehab [facility] Physical Se lázaro Jason MD [address] [place], [place] [phone] Chronic low back pain, Therapy Pircila Curry, PT unspecified back pain [address] [facility], with [address] [place] [address] unspecified (Primary Dx) [phone] Social History Tobacco Use Types Packs/Day Years Used Date Former Smoker Smokeless Tobacco: Never Used Alcohol Use Standard Drinks/Week Comments Defer 0 (1 standard drink = 0.6 oz pure alcoho l) Sex Assigned at Date Recorded Female 04/12/2019 2:19 PM EST documented as of this encounter Progress Notes Pricila Curry, PT - 04/26/2018 2:30 PM EDT [facility] Physical Therapy [address] [facility], [address] [facility] [address] PROGRESS NOTE visit 6 [facility] Molly Rios is a 73 y.o. female.who has been referred to physical therapy by Dr. Jason with dx of R hip pain(decreased ROM, pelvic pain, groin pain, R SI pain, chronic glut medius tendinopathy). Pt reports she is a very active person at baseline. Noticed R LBP in June after swimming (changedher technique and pain improved). Pt seen by PT at [facility] for R hip pain. Started doing side lying hip abd with 5 lb. Developed more pain (? Overdid her ex). + R sided groin pain. CC is weakness B hips. Referred to PT for consult. Will f/u with MD after completion of PT. Seen by ortho at [facility]-x-rays done, advised to strengthen/stretch R LE. ?? [...] (advised to look into cortisone injection) Subjective Pt reports her R hip/groin feel tight, sx improved after swimming/stretching Objective Pain at rest:0/10-4/10 R hip/groin/LB, 0/10-3/10 R knee Func: + difficulty with kneeling due to pain R knee, was able to go swimming since last PT visit. Treatment: ex Long axis distraction R hip, R pelvic rocking in side lying Stretching to R hip adductors in supine Arnulfo stretch R, clam shell/reverse clam shell R, quad stretch R Reviewed: Foam roller to R piriformis, R hamstring, R Quad/Hip flexors Quadruped arm and leg lift (on green ball) SLS R/L Front plank (elbows bent, leg straight and one leg lift) SLR R (neutral and ER)-2 lb Monster walks (forward/back/side) with green band Hip abd R in side lying x 10, circles cw/ccw (2 lb) Hamstring stretch R (IR/ER) Bridge with april, on green ball Wall sit (with emphasis on L LE) ?? Encouraged to continue with swimming/riding bike as sx permit Assessment/Plan Pt with less pain R hip/groin and LB area after long axis distraction R hip and stretching R hip flexors/adductors and quads Plan: encouraged to continue with swimming, and open and closed chain ex. F/u in 1-2 weeks, treat asindicated Pricila Curry, PT 04/26/2018 documented in this encounter Plan of Treatment Not on filedocumented as of this encounter Visit Diagnoses Diagnosis Chronic low back pain, unspecified back pain laterality, with sciatica presence unspecified - Primary documented in this encounter Care Teams Copy And Print Associate Relationship Specialty Start Date End Date Laurie Elias NP PCP - General Family Medicine 03/02/18 11/19/19 [address] [place] [address] documented as of this encounter
--- OUTSIDE RECORDS SUMMARY | 2021-07-22 20:18 | XMS_ITS | Encounter Summary ---
:1945 Author Organization [facility] Address [address] [facility], [address] [place] [address] Care Team Providers Name Role Phone Laurie Elias NP Primary Care Provider Encounter Details Date Type Department Care Team Description 03/08/2018 Travel Social History Tobacco Use Types Packs/Day [...] on filedocumented in this encounter Care Teams Zipper Slide Attacher Relationship Specialty Start Date End Date Laurie Elias NP PCP - General Family Medicine 03/02/18 11/19/[address] [place] [id number] documented as of this encounter
--- OUTSIDE RECORDS SUMMARY | 2021-07-22 20:18 | XMS_ITS | Encounter Summary ---
:1945 Author Organization [facility] Address [address] [facility], [address] [place] [address] Care Team Providers Name Role Phone Laurie Elias NP Primary Care Provider Encounter Details Date Type Department Care Team Description 03/10/2018 Telephone [facility] Pr Laurie Brown NP [address] [place] [address] [place] [address] [facility] [phone] Practice [place], [place] [address] (Wo rk) Social History Tobacco Use Types Packs/Day Years Used Date Former Smoker Smokeless Tobacco: Never Used Alcohol Use Standard Drinks/Week Comments Defer 0 (1 standard drink = 0.6 oz pure alcoho l) Sex Assigned at Date Recorded Female 04/12/2019 2:19 PM EST documented as of this encounter Miscellaneous Notes Telephone Encounter - Laurie Elias NP - 03/10/2018 12:18 PM EST TC to patient to follow-up. She reports that she was feeling improved (abdominal pain resolved) overall, but she was still experiencing low-grade fever at night. As such, she contacted [facility] to be seen. Due to the low-grade fevers, there was concern of an abscess, so she was started on an another antibiotic (flagyl) for 10 days. She was also put on a liquid diet (pureed okay) for 7 days. She is feeling well overall, although she is trying to slowly regain back some of the weight she has lost. She will f/u here or with GI right away with any concerns while on the abx. GI may pursue colonoscopy after. Emergency precautions reviewed, and she verbalized understanding. Telephone Encounter - Laurie Elias NP - 03/10/2018 12:17 PM EST ----- Message from Gina Macias MA sent at 03/10/2018 10:18 AM EST ----- Regarding: Follow up Contact: Pt called to cancel appt today at 11:45AM, said she is not able to make it but you can call her at this time or in the afternoon to follow up. Thank you. Telephone Encounter - Laurie Elias NP - 03/10/2018 12:02 PM EST ----- Message from Gina Macias MA sent at 03/10/2018 10:18 AM EST ----- Regarding: Follow up Contact: Pt called to cancel appt today at 11:45AM, said she is not able to make it but you can call her at this time or in the afternoon to follow up. Thank you. documented in this encounter Plan of Treatment Not on filedocumented as of this encounter Visit Diagnoses Not on filedocumented in this encounter Care Teams Brake Operator Heavy Duty Relationship Specialty Start Date End Date Laurie Elias NP PCP - General Family Medicine 03/02/18 11/19/19 [address] [place] [address] documented as of this encounter
--- OUTSIDE RECORDS SUMMARY | 2021-07-22 20:18 | XMS_ITS | Encounter Summary ---
:1945 Author Organization [facility] Address [address] [facility], [address] [place] [address] Care Team Providers Name Role Phone Laurie Elias ANN Primary Care Provider Encounter Details Date Type Department Care Team Description 03/24/2018 Rehab [facility] Physical Se lázaro Jason MD [address] [place], [place] [phone] Chronic low back pain, Therapy Pricila Curry, PT unspecified back pain [address] [facility], with [address] [place] [address] unspecified (Primary Dx) [phone] Social History Tobacco Use Types Packs/Day Years Used Date Former Smoker Smokeless Tobacco: Never Used Alcohol Use Standard Drinks/Week Comments Defer 0 (1 standard drink = 0.6 oz pure alcoho l) Sex Assigned at Date Recorded Female 04/12/2019 2:19 PM EST documented as of this encounter Progress Notes Pricila Curry, PT - 03/24/2018 12:00 PM EST [facility] Physical Therapy [address] [facility], [address] [facility] [address] PROGRESS NOTE visit 3 ALBERT Rios is a 73 y.o. female.who has been referred to physical therapy by Dr. Jason with dx of R hip pain(decreased ROM, pelvic pain, groin pain, R SI pain, chronic glut medius tendinopathy). Pt reports she is a very active person at baseline. Noticed R LBP in June after swimming (changedher technique and pain improved). Pt seen by PT at [facility] for R hip pain. Started doing side lying hip abd with 5 lb. Developed more pain (? Overdid her ex). + R sided groin pain. CC is weakness B hips. Referred to PT for consult. Will f/u with MD after completion of PT. Seen by ortho at [facility]-x-rays done, advised to strengthen/stretch R LE. ?? [...] Has done dry needling to R hip 2ith Dr. Shaw in the past Dr. Jason suggested PRP to R hip if needed Subjective Pt reports she was able to go for a swim this morning Wonders if the R piriformis stretch may be causing a spasm in the muscle Objective Pain at rest:03/26- 05/24 R hip/groin/LB Func: able to go for a swim this morning Treatment: ex Stretching to R hip adductors in supine Foam roller to R piriformis, R hamstring, R Quad/Hip flexors Clam shell R, Reverse clam shell R x 10 Hip abd R in side lying x 10, circles cw/ccw Hamstring stretch R Bridge R/L x 10, bridge with april Quadruped arm and leg lift (on green ball) SLS R/L Front plank (elbows bent, leg straight and one leg lift) SLR R (neutral and ER) ?? Encouraged to continue with swimming/riding bike as sx permit Assessment/Plan Pt doing well with present HEP. Able to add more ex to HEP Plan: pt to hold on piriformis stretch for a few days and then try it again. F/u here next week. Advance ex as indicated. Pricila Curry, PT 03/24/2018 documented in this encounter Plan of Treatment Not on filedocumented as of this encounter Visit Diagnoses Diagnosis Chronic low back pain, unspecified back pain laterality, with sciatica presence unspecified - Primary documented in this encounter Care Teams Biodiesel Plant Manager Relationship Specialty Start Date End Date Laurie Elias NP PCP - General Family Medicine 03/02/18 11/19/19 [address] [place] [address] documented as of this encounter
--- OUTSIDE RECORDS SUMMARY | 2021-07-22 20:18 | XMS_ITS | Encounter Summary ---
:1945 Author Organization [facility] Address [address] [facility], [address] [place] [address] Care Team Providers Name Role Phone Laurie Elias NP Primary Care Provider Encounter Details Date Type Department Care Team Description 03/23/2018 Travel Social History Tobacco Use Types Packs/Day [...] on filedocumented in this encounter Care Teams Perennial House Manager Relationship Specialty Start Date End Date Laurie Elias NP PCP - General Family Medicine 03/02/18 11/19/[address] [place] [address] documented as of this encounter
--- OUTSIDE RECORDS SUMMARY | 2021-07-22 20:18 | XMS_ITS | Encounter Summary ---
:1945 Author Organization [facility] Address [address] [facility], [address] [place] [address] Care Team Providers Name Role Phone Laurie Elias NP Primary Care Provider Encounter Details Date Type Department Care Team Description 03/09/2018 Travel Social History Tobacco Use Types Packs/Day [...] on filedocumented in this encounter Care Teams Dredging Inspector Relationship Specialty Start Date End Date Laurie Elias NP PCP - General Family Medicine 03/02/18 11/19/[address] [place] [address] documented as of this encounter
--- OUTSIDE RECORDS SUMMARY | 2021-07-22 20:18 | XMS_ITS | Encounter Summary ---
:1945 Author Organization [facility] Address [address] [facility], [address] [place] [address] Care Team Providers Name Role Phone Laurie Elias NP Primary Care Provider Encounter Details Date Type Department Care Team Description 05/08/2018 Travel Social History Tobacco Use Types Packs/Day [...] on filedocumented in this encounter Care Teams Flake Drier Relationship Specialty Start Date End Date Laurie Elias NP PCP - General Family Medicine 03/02/18 11/19/[address] [place] [address] documented as of this encounter
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
--- OUTSIDE RECORDS SUMMARY | 2021-07-22 20:18 | XMS_ITS | Encounter Summary ---
:1945 Author Organization [facility] Address [address] [facility], [address] [place] [address] Care Team Providers Name Role Phone Laurie Elias ANN Primary Care Provider Encounter Details Date Type Department Care Team Description 07/05/2018 Rehab [facility] Physical Se lázaro Jason MD [address] [place], [place] [id number] Chronic low back pain, Therapy Pricila Curry, PT unspecified back pain [address] [facility], with [address] [place] [address] unspecified (Primary Dx) [phone] Social History Tobacco Use Types Packs/Day Years Used Date Former Smoker Smokeless Tobacco: Never Used Alcohol Use Standard Drinks/Week Comments Defer 0 (1 standard drink = 0.6 oz pure alcoho l) Sex Assigned at Date Recorded Female 04/12/2019 2:19 PM EST documented as of this encounter Progress Notes Pricila Curry, PT - 07/05/2018 12:00 PM EDT Rehabilitation Services Physical Therapy [address] [facility], [address] [facility] [address] PROGRESS NOTE visit 12 [facility] Molly Rios is a 73 y.o. female.who has been referred to physical therapy by Dr. Jason with dx of R hip pain(decreased ROM, pelvic pain, groin pain, R SI pain, chronic glut medius tendinopathy). Pt reports she is a very active person at baseline. Noticed R LBP in June after swimming (changedher technique and pain improved). Pt seen by PT [place] [facility] [place] pain. Started doing side lying hip abd with 5 lb. Developed more pain (? Overdid her ex). + R sided groin pain. CC is weakness B hips. Referred to PT for consult. Seen by ortho at [facility] done, advised to strengthen/stretch R LE. ?? [...] neuroma (advised to look into cortisone injection) US done with Dr. Jason in Jan 2018: + tendonopathy gluteal medius muscle R Subjective Feeling better overall, + pain R medial knee after riding her bike and then doing some gardening Thinks she can finish up with her PT appointments today Objective Pain at rest: 0/10-1/10 R hip/groin/LB, 1/10 R knee Func: + difficulty remains with rising from toilet/low chair due to weakness L LE. Going to yoga class (with modifications) Treatment: ex L Hip abduction in side lying (and circles CW/CCW), standing x 10 Clam shell/reverse clam shell L Hamstring stretch R/L (neutral and with ER/IR) Mini squat up against bed SLR R x 5, L x 10 (neutral and with ER) Hydrant in standing Bridge, bridge with march, single leg bridge Deferring front plank due to pain R shoulder Reviewed:SLS R/L, Monster walks (forward/back/side) with green band, foam roller to piriformis Quadruped: hip extension, hydrant R/L ?? Encouraged to continue with swimming/riding bike as sx permit Assessment/Plan Pt doing well with ex, encouraged to continue with pain free ex Plan: anticipate d/c with HEP at this time. Pt given Dr. [place] and Dr. Crockett's names as potential sources of orthopedic second opinion if needed. Pricila Curry, PT 07/05/2018 documented in this encounter Plan of Treatment Not on filedocumented as of this encounter Visit Diagnoses Diagnosis Chronic low back pain, unspecified back pain laterality, with sciatica presence unspecified - Primary documented in this encounter Care Teams Mobile Home Set Up Person Relationship Specialty Start Date End Date Laurie Elias NP PCP - General Family Medicine 03/02/18 11/19/[address] [place] [address] documented as of this encounter
--- OUTSIDE RECORDS SUMMARY | 2021-07-22 20:18 | XMS_ITS | Encounter Summary ---
:1945 Author Organization [facility] Address [address] [facility], [address] [place] [address] Care Team Providers Name Role Phone JadaLaurie velasquez ANN Primary Care Provider Encounter Details Date Type Department Care Team Description 03/30/2018 Office Visit [place] Sher[facility], Diverticulitis of Gastrointestinal MD [place] large intestine [facility] 330 [facility] without perforation or 300 [facility], absce ss without [address] bleeding (Primary Dx) [place], [place] [phone] [place] [address] Social History Tobacco Use Types Packs/Day Years Used Date Former Smoker Smokeless Tobacco: Never Used Alcohol Use Standard Drinks/Week Comments Defer 0 (1 standard drink = 0.6 oz pure alcoho l) Sex Assigned at Date Recorded Female 04/12/2019 2:19 PM EST documented as of this encounter Progress Notes [place] Gorman MD - 03/30/2018 12:30 PM EST Images from the original note were not included. 04/02/18 Dallas Gorman M.D. chain carrier, [facility] Chief, Gastroenterology [facility] [address] [place] [address] FAX [phone] Email: [email or web address] 04/02/18 Re: [id number] Molly Rios Referring physician: Laurie Elias, ANN [address] [facility] [address] Molly Rios is a 73 y.o. female with a history of diverticulitis who comes to my office for a follow up office visit and evaluation of recurrent sweats and chills. This is the patient's second episode of acute diverticulitis and her course has been complicated by the need for 3 courses of antibiotics. On Mar.19 she discontinued her Flagyl and did well until Mar.24 when she has recurrent sweats; CBC revealed WBC 11.6 Flagyl was restarted and fever and sweats resolved. She has remained on strict low residue diet. Currently she is doing well, free of sweats and fever. Past Medical History: Past Medical History: Diagnosis Date ??? Actinic keratoses Dr. Rosenberg, diffuse. 5-FU, cryo ??? Anxiety ??? CAD (coronary [...] 1432 Lab Results Component Value Date WBC 11.6 (H) 03/24/2018 PLT 474 (H) 03/09/2018 No results found for: PT, INR No results found for: ESR No results found for: CRP No results found for: TIBC, UIBC No results found for: AMYLASE No results found for: LIPASE No results found for: SMOOTHMUSCAB, MITOAB No results found for: DELMA Imaging Summary: 1. 03/03/[address]: Thickened sigmoid wall 2. 3. Endoscopy Summary: 1. Last colonoscopy 10/28/15 Extensive diverticulitis 2. 3. Impression: Molly Rios is a 73 y.o. female who has returned for a follow up visit to evaluate: 1. Relapsing diverticulitis 2. Clinical improvement on Flagyl 3. Doubt abscess Recommendations: I recommended: 1. Flagyl 5 more days 2. Low fiber diet 3. No need for another CT scan 4. Colonoscopy in 3 months I spent at least 40 minutes in the evaluation of this patient. Greater than 50% was spent in counseling and coordination of care of the patient. I gave the patient my office card with phone number and contact information. Dallas Gorman M.D. documented in this encounter Plan of Treatment Not on filedocumented as of this encounter Visit Diagnoses Diagnosis Diverticulitis of large intestine withou t perforation or abscess without bleeding - Primary documented in this encounter Care Teams Product Support Rep Relationship Specialty Start Date End Date Laurie Elias, ANN PCP - General Family Medicine 03/02/18 11/19/19 [address] [place] [address] documented as of this encounter
--- OUTSIDE RECORDS SUMMARY | 2021-07-22 20:18 | XMS_ITS | Encounter Summary ---
:1945 Author Organization [facility] Address [address] [facility], [address] [place] [address] Care Team Providers Name Role Phone Laurie Elias NP Primary Care Provider Encounter Details Date Type Department Care Team Description 03/03/2018 Travel Social History Tobacco Use Types Packs/Day [...] on filedocumented in this encounter Care Teams Wastewater Technician Relationship Specialty Start Date End Date Laurie Elias NP PCP - General Family Medicine 03/02/18 11/19/[address] [place] [address] documented as of this encounter
--- OUTSIDE RECORDS SUMMARY | 2021-07-22 20:18 | XMS_ITS | Encounter Summary ---
:1945 Author Organization [facility] Address [address] [facility], [address] [place] [address] Care Team Providers Name Role Phone JadaLaurie velasquez ANN Primary Care Provider Encounter Details Date Type Department Care Team Description 03/04/2018 Telephone [facility] José Antonio ling MD Consultants [address] [facility], [address] [facility] [address], [facility] [address] [place], [place] [id number] [place] [address] [phone] (Wo rk) Social History Tobacco Use Types Packs/Day Years Used Date Former Smoker Smokeless Tobacco: Never Used Alcohol Use Standard Drinks/Week Comments Defer 0 (1 standard drink = 0.6 oz pure alcoho l) Sex Assigned at Date Recorded Female 04/12/2019 2:19 PM EST documented as of this encounter Miscellaneous Notes Telephone Encounter - José Antonio Shipley MD - 03/04/2018 11:13 AM EST Paged by patient for CT scan results. Uncomplicated sigmoid diverticulitis with some upstream dilation suggestive of ileus vs possibly enteritis. She also spoke to Dr. Rodriguez about this last night and is already on Augmentin. Today she feels somewhat better with improving abdominal discomfort, no fever. Able to tolerate liquids but not much appetite for solid foods. I recommended liquid diet only today and then advance slowly as tolerated. We discussed things to watch for including worsening pain, fever, N/V. She will callagain with further questions or concerns. Kerwin Shipley MD, MPH [facility] [phone] documented in this encounter Plan of Treatment Not on filedocumented as of this encounter Visit Diagnoses Not on filedocumented in this encounter Care Teams Productivity Engineer Relationship Specialty Start Date End Date Laurie Elias, ANN PCP - General Family Medicine 03/02/18 11/19/19 [address] [place] [address] documented as of this encounter
--- OUTSIDE RECORDS SUMMARY | 2021-07-22 20:18 | XMS_ITS | Encounter Summary ---
:1945 Author Organization [facility] Address [address] [facility], [address] [place] [address] Care Team Providers Name Role Phone Laurie Elias DIVISION HUMAN RESOURCES MANAGER Primary Care Provider Encounter Details Date Type Department Care Team Description 04/06/2018 Scan Document - View [facility] Trini Elias in Chart Practice DIVISION HUMAN RESOURCES MANAGER [address] [place], [place] [id number] [facility] [phone] [place] [id number] Social History Tobacco Use Types Packs/Day Years [...] on filedocumented in this encounter Care Teams Extrusion Die Template Maker Relationship Specialty Start Date End Date Laurie Elias NP PCP - General Family Medicine 03/02/18 11/19/[address] [place] [address] documented as of this encounter
--- OUTSIDE RECORDS SUMMARY | 2021-07-22 20:18 | XMS_ITS | Encounter Summary ---
:1945 Author Organization [facility] Address [address] [facility], [address] [place] [address] Care Team Providers Name Role Phone Laurie Elias ANN Primary Care Provider Encounter Details Date Type Department Care Team Description 06/06/2018 Rehab [facility] Physical Se lázaro Jason MD [address] [place], [place] [id number] Chronic low back pain, Therapy Pricila Curry, PT unspecified back pain [address] [facility], with [address] [place] [address] unspecified (Primary Dx) [phone] Social History Tobacco Use Types Packs/Day Years Used Date Former Smoker Smokeless Tobacco: Never Used Alcohol Use Standard Drinks/Week Comments Defer 0 (1 standard drink = 0.6 oz pure alcoho l) Sex Assigned at Date Recorded Female 04/12/2019 2:19 PM EST documented as of this encounter Progress Notes Pricila Curry, PT - 06/06/2018 1:30 PM EDT Rehabilitation Services Physical Therapy [address] [facility], [address] [facility] [address] PROGRESS NOTE visit 10 [facility] Molly Rios is a 73 y.o. female.who has been referred to physical therapy by Dr. Jason with dx of R hip pain(decreased ROM, pelvic pain, groin pain, R SI pain, chronic glut medius tendinopathy). Pt reports she is a very active person at baseline. Noticed R LBP in June after swimming (changedher technique and pain improved). Pt seen by PT at [facility] for R hip pain. Started doing side lying hip abd with 5 lb. Developed more pain (? Overdid her ex). + R sided groin pain. CC is weakness B hips. Referred to PT for consult. Will f/u with MD after completion of PT. Seen by ortho at [facility]-x-rays done, advised to strengthen/stretch R LE. ?? [...] + tendonopathy gluteal medius muscle R Subjective + difficulty with R hip extension in quadruped S/p visit to chiro- did 3 shock wave treatments R gluteals- 3 more scheduled Objective Pain at rest: 0/10-2/10 R hip/groin/LB Func: + difficulty remains with rising from toilet due to weakness R hip. Still taking a break from Yoga and swimming for now Treatment: ex Long and short axis distraction R hip Stretching to R hip adductors in supine Hip abduction in side lying (and circles CW/CCW), standing x 10 Arnulfo stretch R, clam shell/reverse clam shell R, quad stretch R Hamstring stretch R/L (neutral and with ER/IR) Wall sit SLR R x 5, L x 10 (neutral and with ER) Front plank (elbows bent, legs straight)- stopped due to pain R shoulder Foam roller to R piriformis Hydrant in quadruped, hip extension in quadruped Reviewed: Foam roller to R hamstring, R Quad/Hip flexors Quadruped arm and leg lift (on green ball) SLS R/L Monster walks (forward/back/side) with green band Bridge with april, bridge on green bal ?? Encouraged to continue with swimming/riding bike as sx permit Assessment/Plan Pt with decreased R hip/groin pain after short axis distraction R hip. Function remains decreased (rising from toilet/half kneeling position). Encouraged to continue with ex as tolerated. Plan: f/u next week, continue with distraction R hip and strengthening ex R WES Curry, PT 06/06/2018 documented in this encounter Plan of Treatment Not on filedocumented as of this encounter Visit Diagnoses Diagnosis Chronic low back pain, unspecified back pain laterality, with sciatica presence unspecified - Primary documented in this encounter Care Teams Mail Weigher Relationship Specialty Start Date End Date Laurie Elias NP PCP - General Family Medicine 03/02/18 11/19/19 [address] [place] [address] documented as of this encounter
--- OUTSIDE RECORDS SUMMARY | 2021-07-22 20:18 | XMS_ITS | Encounter Summary ---
:1945 Author Organization [facility] Address [address] [facility], [address] [place] [address] Care Team Providers Name Role Phone Laurie Elias NP Primary Care Provider Encounter Details Date Type Department Care Team Description 06/06/2018 Travel Social History Tobacco Use Types Packs/Day [...] on filedocumented in this encounter Care Teams Brush Sander Relationship Specialty Start Date End Date Laurie Elias NP PCP - General Family Medicine 03/02/18 11/19/[address] [place] [address] documented as of this encounter
--- OUTSIDE RECORDS SUMMARY | 2021-07-22 20:18 | XMS_ITS | Encounter Summary ---
:1945 Author Organization [facility] Address [address] [facility], [address] [place] [address] Care Team Providers Name Role Phone Laurie Elias NP Primary Care Provider Encounter Details Date Type Department Care Team Description 03/29/2018 Travel Social History Tobacco Use Types Packs/Day [...] on filedocumented in this encounter Care Teams Post Anesthesia Room Nurse Relationship Specialty Start Date End Date Laurie Elias NP PCP - General Family Medicine 03/02/18 11/19/[address] [place] [address] documented as of this encounter
--- OUTSIDE RECORDS SUMMARY | 2021-07-22 20:18 | XMS_ITS | Encounter Summary ---
:1945 Author Organization [facility] Address 330 [facility], [address] [place] [address] Care Team Providers Name Role Phone Laurie Elias ANN Primary Care Provider Encounter Details Date Type Department Care Team Description 03/03/2018 Telephone Family Practice Jason Veloz MD [address] [facility], [facility] te 1A [address] [facility], [place] [address] 1A [phone] [place], [place] [address] (Wo rk) Social History Tobacco Use Types Packs/Day Years Used Date Former Smoker Smokeless Tobacco: Never Used Alcohol Use Standard Drinks/Week Comments Defer 0 (1 standard drink = 0.6 oz pure alcoho l) Sex Assigned at Date Recorded Female 04/12/2019 2:19 PM EST documented as of this encounter Miscellaneous Notes Telephone Encounter - Jason Rodriguez MD - 03/03/2018 9:27 PM EST Called by Radiology Patient with CT scan abd done earlier today, +diverticulitis. Called patient, who is already taking antibiotics (augmentin), but reports ongoing nausea, difficulty taking PO, but able to take fluids Stressed that if symptoms worsen or does not improve, needs to go to ED for potential IV antibiotics. Will forward to PCP documented in this encounter Plan of Treatment Not on filedocumented as of this encounter Visit Diagnoses Not on filedocumented in this encounter Care Teams Museum Librarian Relationship Specialty Start Date End Date Laurie Elias, ANN PCP - General Family Medicine 03/02/18 11/19/19 [address] [place] [address] documented as of this encounter
--- OUTSIDE RECORDS SUMMARY | 2021-07-22 20:18 | XMS_ITS | Encounter Summary ---
:1945 Author Organization [facility] Address 330 [facility], [address] [place] [address] Care Team Providers Name Role Phone Laurie Elias ANN Primary Care Provider Encounter Details Date Type Department Care Team Description 03/17/2018 Telephone [facility] [place] zurita MD Consultants 330 [facility], [address] [facility] t, [facility] [address] [place], [place] [phone] [place] [address] [phone] (Wo rk) Social History Tobacco Use Types Packs/Day Years Used Date Former Smoker Smokeless Tobacco: Never Used Alcohol Use Standard Drinks/Week Comments Defer 0 (1 standard drink = 0.6 oz pure alcoho l) Sex Assigned at Date Recorded Female 04/12/2019 2:19 PM EST documented as of this encounter Miscellaneous Notes Telephone Encounter - Dallas Gorman MD - 03/17/2018 4:17 PM EST I called the patient and she has had two episodes of fever to 100.3 I recommended that she continue her Flagyl through Tuesday. If she continues to have fever, she will call the office. Currently, she has no pain on a solid food diet. I think she will need more Flagyl if her fever recurs. Bill Telephone Encounter - Laura Mak MA - 03/17/2018 12:53 PM EST Her fever has come back at night and she would like to speak with you. documented in this encounter Plan of Treatment Not on filedocumented as of this encounter Visit Diagnoses Not on filedocumented in this encounter Care Teams Feather Duster Winder Relationship Specialty Start Date End Date Laurie Elias NP PCP - General Family Medicine 03/02/18 11/19/19 [address] [place] [address] documented as of this encounter
--- OUTSIDE RECORDS SUMMARY | 2021-07-22 20:18 | XMS_ITS | Encounter Summary ---
:1945 Author Organization [facility] Address [address] [facility], [address] [place] [address] Care Team Providers Name Role Phone Laurie Elias WATER POLLUTION SCIENTIST Primary Care Provider Encounter Details Date Type Department Care Team Description 04/10/2018 Scan Document - View [facility] Trini Elias in Chart Practice WATER POLLUTION SCIENTIST [address] [place], [place] [id number] [facility] [phone] [place] [id number] Social History Tobacco Use Types Packs/Day Years [...] on filedocumented in this encounter Care Teams Orthopaedic General Relationship Specialty Start Date End Date Laurie Elias NP PCP - General Family Medicine 03/02/18 11/19/[address] [place] [address] documented as of this encounter
--- OUTSIDE RECORDS SUMMARY | 2021-07-22 20:18 | XMS_ITS | Encounter Summary ---
:1945 Author Organization [facility] Address 330 [facility], [address] [place] [address] Care Team Providers Name Role Phone Laurie Elias NP Primary Care Provider Encounter Details Date Type Department Care Team Description 03/27/2018 Travel Social History Tobacco Use Types Packs/Day [...] on filedocumented in this encounter Care Teams X Ray Equipment Tester Relationship Specialty Start Date End Date Laurie Elias NP PCP - General Family Medicine 03/02/18 11/19/[address] [place] [address] documented as of this encounter
--- OUTSIDE RECORDS SUMMARY | 2021-07-22 20:18 | XMS_ITS | Encounter Summary ---
:1945 Author Organization [facility] Address 330 [facility], [address] [place] [address] Care Team Providers Name Role Phone Laurie Elias BUSINESS SERVICES DIRECTOR Primary Care Provider Reason for Visit Reason Comments Fever Encounter Details Date Type Department Care Team Description 03/24/2018 Office Visit Laurie Gómez, Fever , unspecified Practice BUSINESS SERVICES DIRECTOR fever cause (Primary [address]) [place] [address] Kaushik Fleming [phone] [place] [address] Social History Tobacco Use Types Packs/Day Years Used Date Former Smoker Smokeless Tobacco: Never Used Alcohol Use Standard Drinks/Week Comments Defer 0 (1 standard drink = 0.6 oz pure alcoho l) Sex Assigned at Date Recorded Female 04/12/2019 2:19 PM EST documented as of this encounter Last Filed Vital Signs Vital Sign Reading Time Taken Comments Blood Pressure 90/60 03/24/2018 3:23 PM EST Pulse 59 03/24/2018 3:23 PM EST Temperature 36.4 ??C (97.5 ??F) 03/24/2018 3:23 PM EST Respiratory Rate - - Oxygen Saturation 98% 03/24/2018 3:23 PM EST Inhaled Oxygen Concentration - - Weight 55.3 kg (122 lb) 03/24/2018 3:23 PM EST Height - - Body Mass Index 19.11 11/01/2017 10:11 AM EDT documented in this encounter Progress Notes Laurie Tolbertieger, BUSINESS SERVICES DIRECTOR - 03/24/2018 3:00 PM EST Images from the original note were not included. Subjective Patient ID: Molly Rios is a 73 y.o. female. HPI CC: Low-grade fever/Night sweats 73 year old female with PMHx severe diverticulosis presents for ongoing low- grade fevers and night sweats. Most recent diverticulitis flare (03/02/18) treated with augmentin and metronidazole. Patient completed metronidazole on 03/19/18, and at that point, fevers had resolved. The next day, her low-grade fevers (Tmax 99.9) returned along with night sweats. Last night, she woke up soaked. She is otherwise feeling well. She has returned to exercising (swimming). She feels a little bit more tired than usual after exercise and doesn't quite feel 100%. She also has some residual dull LLQ pain. She is back to a full solid diet. She denies any dysuria, cough, URI symptoms, or other recent illness. No SOB or chest pain. She is having regular bowel movements, though BMs are more frequent than usual 2-2 starting fiber supplements. She also feels a bit more bloated than usual. No blood or mucus in her stool. No dizziness or weakness. Review of Systems See HPI Objective Physical Exam Constitutional: She is oriented to person, place, and time. She appears well- developed and well-nourished. No distress. Well-appearing, NAD Pleasantly conversant HENT: Head: Normocephalic and atraumatic. Eyes: Pupils are equal, round, and reactive to light. Neck: Normal range of motion. Neck supple. Cardiovascular: Normal rate and regular rhythm. Pulmonary/Chest: Effort normal and breath sounds normal. No stridor. No respiratory distress. She has no wheezes. She has no rales. She exhibits no tenderness. Abdominal: Soft. Normal appearance and bowel sounds are normal. There is tenderness in the left lower quadrant. There is no rigidity, no rebound, no guarding, no CVA tenderness, no tenderness at McBurney's point and negative Weiss's sign. Musculoskeletal: Normal range of motion. Neurological: She is alert and oriented to person, place, and time. Skin: Skin is warm and dry. She is not diaphoretic. Assessment/Plan Diagnoses and all orders for this visit: Fever, unspecified fever cause 73 year old well-appearing female with known severe diverticulitis presenting with unresolved low-grade fevers and night sweats s/p diverticulosis flare. She is otherwise well without any other acute concerns. There is mild TTP in the LLQ, normal BS. LSCTAB, no SOB. No dysuria or suprapubic pain. Casediscussed with Dr. Miranda. Restart flagyl (?unresolved vs complicated diverticulitis), and schedule urgent GI appointment early next week. Repeat CBC to trend WBCs. Urine culture as below to r/o other cause of fever in elderly, although patient asymptomatic for UTI. Strict ED precautions were reviewedincluding worsening fevers, worsening pain, or any new/or worsening symptoms. Patient in agreement with plan and denies further questions. - CBC; Future - Urine culture; Future - metroNIDAZOLE (FLAGYL) 250 mg tablet; Take 1 tablet (250 mg total) by mouth 3 (three) times a day for 10 days. Total visit time = 20 minutes; > 50% spent counseling/coordinating care documented in this encounter Plan of Treatment Scheduled Orders Name Type Priority Associated Diagnoses Order S chedule Urine culture Microbiology Routine Fever, unspecified fever Ex pected: 03/26/2018, cause Expires: 2019 documented as of this encounter Procedures Procedure Name Priority Date/Time Associated Diagnosis Comme nts CBC Routine 03/24/2018 4:14 PM Fever, unspecified Res ults for this EST fever cause procedure are i n the results section. URINE CULTURE Routine 03/24/2018 4:14 PM Results for this EST procedure are i n the results section. documented in this encounter Results Urine culture (03/24/2018 4:14 PM EST) Analysis Performed At [facility] Urine Culture [facility] Comment: ??CULTURE, URINE, ROUTINE ?MICRO NUMBER: ?[id number] ??TEST STATUS: ? FINAL ??SPECIMEN SOURCE: ?? URINE, CLEAN CATC H ??SPECIMEN QUALITY: ??ADEQUATE ??RESULT: ?No Growth Specimen Anatomical Collection Method Collection Time Receive d Time (Source) Location / / Volume Laterality 03/24/2018 4:14 PM 9 4:14 EST PM EST Laurie Elias NP LAB MICROBIOLOGY - GENERAL O RDERABLES Performing Organization Address [facility] Phon e Number [facility] [address] [facility] [address] [place] [address] [facility] [address] [id number] Diagnost (ABNORMAL) CBC (03/24/2018 4:14 PM EST) [facility] Method Time Signature White Blood 11.6 (H) 3.8 - [facility] Count 10.8 [place] [facility] Red Blood 4.19 3.80 - [facility] Count 5.10 [place] [facility] L [facility] Hemoglobin 12.9 11.7 - [facility] 15.5 g/dL [place] [facility] Hematocrit 37.5 35.0 - [facility] 45.0 % [place] [facility] MCV 89.5 80.0 - [facility] 100.0 fL [place] [facility] MCH 30.8 27.0 - [facility] 33.0 pg [place] [facility] MCHC 34.4 32.0 - [facility] 36.0 g/dL [place] [facility] MRDW 12.6 11.0 - [facility] 15.0 % [place] [facility] Platelet count 509 (H) 140 - 400 [facility] [place] [facility] MPV 9.5 7.5 - [facility] 12.5 fL [place] [facility] Specimen Anatomical Collection Method Collection Time Receive d Time (Source) Location / / Volume Laterality Blood Venous blood / 03/24/2018 4:14 PM 019 4:14 Unknown EST PM EST Laurie Elias NP LAB BLOOD ORDERABLES Performing Organization Address [facility] Phon e Number [facility] [address], [address] [facility] [address] [place] [address] [place] [facility] [address] [phone] [facility]ost documented in this encounter Visit Diagnoses Diagnosis Fever, unspecified fever cause - Primary documented in this encounter Care Teams Purification Operator Relationship Specialty Start Date End Date Laurie Elias NP PCP - General Family Medicine 03/02/18 11/19/19 [address] [place] [address] documented as of this encounter
--- OUTSIDE RECORDS SUMMARY | 2021-07-22 20:18 | XMS_ITS | Encounter Summary ---
:1945 Author Organization [facility] Address 330 [facility], [address] [place] [address] Care Team Providers Name Role Phone Laurie Elias MULT AU MATIC OPERATOR Primary Care Provider Encounter Details Date Type Department Care Team Description 04/06/2018 Telephone [facility] [place] zurita MD [facility] [address] [facility], [address] [facility] [address], [facility] [address] [place], [place] [address] [place] [address] [phone] (Wo rk) Social History Tobacco Use Types Packs/Day Years Used Date Former Smoker Smokeless Tobacco: Never Used Alcohol Use Standard Drinks/Week Comments Defer 0 (1 standard drink = 0.6 oz pure alcoho l) Sex Assigned at Date Recorded Female 04/12/2019 2:19 PM EST documented as of this encounter Miscellaneous Notes Telephone Encounter - Laura Mak MA - 04/06/2018 3:10 PM EST She would like to speak with you this evening about her last office visit with you. documented in this encounter Plan of Treatment Not on filedocumented as of this encounter Visit Diagnoses Not on filedocumented in this encounter Care Teams Supervisor Research Shop Relationship Specialty Start Date End Date Laurei Elias NP PCP - General Family Medicine 03/02/18 11/19/19 [address] [place] [address] documented as of this encounter
--- OUTSIDE RECORDS SUMMARY | 2021-07-22 20:18 | XMS_ITS | Encounter Summary ---
:1945 Author Organization [facility] Address [address] [facility], [address] [place] [address] Care Team Providers Name Role Phone Laurie Elias NP Primary Care Provider Encounter Details Date Type Department Care Team Description 10/06/2018 Telephone [facility] [place] zurita MD [facility] 330 [facility], [address] [facility] [address], [facility] [address] [place], [place] [id number] [place] [address] [phone] (Wo rk) Social History Tobacco Use Types Packs/Day Years Used Date Former Smoker Smokeless Tobacco: Never Used Alcohol Use Standard Drinks/Week Comments Defer 0 (1 standard drink = 0.6 oz pure alcoho l) Sex Assigned at Date Recorded Female 04/12/2019 2:19 PM EST documented as of this encounter Miscellaneous Notes Telephone Encounter - Dallas Gorman MD - 10/06/2018 5:23 PM EDT The patient is complaining of bloating and constipation. She is worried about another episode of acute diverticulitis. She has no fever. I recommended 24 hours of liquids and check her temp. WRB documented in this encounter Plan of Treatment Not on filedocumented as of this encounter Visit Diagnoses Not on filedocumented in this encounter Care Teams Pattern Gater Relationship Specialty Start Date End Date Laurie Elias NP PCP - General Family Medicine 03/02/18 11/19/19 [address] [place] [address] documented as of this encounter
--- OUTSIDE RECORDS SUMMARY | 2021-07-22 20:18 | XMS_ITS | Encounter Summary ---
:1945 Author Organization [facility] Address [address] [facility], [address] [place] [address] Care Team Providers Name Role Phone Laurie Elias NP Primary Care Provider Encounter Details Date Type Department Care Team Description 04/28/2018 Travel Social History Tobacco Use Types Packs/Day [...] on filedocumented in this encounter Care Teams Services Tech Relationship Specialty Start Date End Date Laurie Elias NP PCP - General Family Medicine 03/02/18 11/19/[address] [place] [address] documented as of this encounter
--- OUTSIDE RECORDS SUMMARY | 2021-07-22 20:18 | XMS_ITS | Encounter Summary ---
:1945 Author Organization [facility] Address [address] [facility], [address] [place] [address] Care Team Providers Name Role Phone Jada Laurie ANN Primary Care Provider Encounter Details Date Type Department Care Team Description 03/14/2018 Orders Only [facility], [facility] Nawaf Jason MD [address] [facility]. [address] [address] [phone] (Wo rk) Social History Tobacco Use Types [...] Associated Diagnosis Comme nts SCAN DOC - NOTES Routine 03/09/2018 SCAN DOC - NOTES Routine 03/09/2018 documented in this encounter Results SCAN DOC - NOTES (03/09/2018) Narrative This result has an attachment that is no t available. Nawaf Jason MD SCANNED ORDERS SCAN DOC - NOTES (03/09/2018) Narrative This result has an attachment that is no t available. Nawaf Jason MD SCANNED ORDERS documented in this encounter Visit Diagnoses Not on filedocumented in this encounter Care Teams Special Forces Specialist Relationship Specialty Start Date End Date Laurie Elias, ANN PCP - General Family Medicine 03/02/18 11/19/19 [address] [place] [address] documented as of this encounter
--- OUTSIDE RECORDS SUMMARY | 2021-07-22 20:18 | XMS_ITS | Encounter Summary ---
:1945 Author Organization [facility] Address [address] [facility], [address] [place] [address] Care Team Providers Name Role Phone Laurie Elias NP Primary Care Provider Encounter Details Date Type Department Care Team Description 09/06/2018 Telephone [facility] Pr Laurie Brown NP [address] [place] [address] [facility] [phone] Practice [place], [place] [address] (Wo rk) Social History Tobacco Use Types Packs/Day Years Used Date Former Smoker Smokeless Tobacco: Never Used Alcohol Use Standard Drinks/Week Comments Defer 0 (1 standard drink = 0.6 oz pure alcoho l) Sex Assigned at Date Recorded Female 04/12/2019 2:19 PM EST documented as of this encounter Miscellaneous Notes Telephone Encounter - Myriam Dodson MA - 09/06/2018 2:00 PM EDT confirm if she is taking the 9 mg or 10 mg of Doxepin? had discussed trying to lower dose at her physical with RK documented in this encounter Plan of Treatment Not on filedocumented as of this encounter Visit Diagnoses Not on filedocumented in this encounter Care Teams Slotter Operator Helper Relationship Specialty Start Date End Date Jada, Laurie, STUDIO DATA ANALYST PCP - General Family Medicine 03/02/18 11/19/19 [address] [place] [address] documented as of this encounter
--- OUTSIDE RECORDS SUMMARY | 2021-07-22 20:18 | XMS_ITS | Encounter Summary ---
:1945 Author Organization [facility] Address [address] [facility], [address] [place] [address] Care Team Providers Name Role Phone Laurie Elias NP Primary Care Provider Encounter Details Date Type Department Care Team Description 04/27/2018 Refill [facility] Pr actice Laurie Elias NP [address] [place], [place] [id number] [facility] [phone] [place], [place] [address] (Wo rk) Social History [...] on filedocumented in this encounter Care Teams Catering Driver Relationship Specialty Start Date End Date Laurie Elias NP PCP - General Family Medicine 03/02/18 11/19/[address] [place] [address] documented as of this encounter
--- OUTSIDE RECORDS SUMMARY | 2021-07-22 20:18 | XMS_ITS | Encounter Summary ---
:1945 Author Organization [facility] Address [address] [facility], [address] [place] [address] Care Team Providers Name Role Phone Laurie Elias ANN Primary Care Provider Encounter Details Date Type Department Care Team Description 03/09/2018 Rehab [facility] Physical Se lázaro Jason MD [address] [place], [place] [id number] Chronic low back pain, Therapy Pricila Curry, PT unspecified back pain [address] [facility], with [address] [place] [address] unspecified (Primary Dx) [phone] Social History Tobacco Use Types Packs/Day Years Used Date Former Smoker Smokeless Tobacco: Never Used Alcohol Use Standard Drinks/Week Comments Defer 0 (1 standard drink = 0.6 oz pure alcoho l) Sex Assigned at Date Recorded Female 04/12/2019 2:19 PM EST documented as of this encounter Progress Notes Pricila Curry, PT - 03/09/2018 9:30 AM EST Rehabilitation Services Physical Therapy [address] [facility], [address] [facility] [address] EVALUATION Molly Rios is a 73 y.o. female who has been referred to physical therapy by Dr. Jason with dx of R hip pain(decreased ROM, pelvic pain, groin pain, R SI pain, chronic glut medius tendinopathy). Pt reports she is a very active person at baseline. Noticed R LBP in June after swimming (changedher technique and pain improved). Pt seen by PT at [facility] for R hip pain. Started doing side lying hip abd with 5 lb. Developed more pain (? Overdid her ex). + R sided groin pain. CC is weakness B hips. Referred to PT for consult. Will f/u with MD after completion of PT. Seen by ortho at [facility]-x-rays done, advised to strengthen/stretch R LE. MRI done L-spine 2018: Demonstrated degenerative findings. Disc bulges at L2, L4 and L5. At L2 thereis moderate R sided foraminal narrowing, may contact R L2 nerve root (which could explain ant thigh pain). At L5, R neuroforaminal narrowing. At L4, disc protrusion to the L contact the left L 5 nerve root. Referral Date: 03/09/18 Referring Provider: Lisa Sotelo MD, Nawaf Jason MD Past Medical History: Diagnosis Date ??? 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 Chief Complaint: B LE weakness, R hip stiffness Pain at rest:1/10 R hip/groin/LB Pain at worst: 3/10 R hip/groin/LB Aggravating Factors: some Yoga poses cause pain R hip/groin, walking greater than 1 hr, sitting greater than 30 min Easing Factors: ex, heat to LB as needed Baseline Activity Level: very active, likes to swim/exercise, does Yoga Functional Limitations: decreased sitting tolerance, decreased walking tolerance Patient Goals: update [facility] Objective Observation/Posture/Alignment/Gait: Increased T kyphosis,, decreased Lumbar lordosis, R LE is slightly more developed than L LE AROM: R hip ROM is grossly WFL's, R hip abd in supine creates a stretch R groin Trunk ROM is grossly WFL's in standing PROM: R hip ROM is grossly WFLs, less flexibility noted with stretching R Hip add Resisted Tests: B hip flex 4/5, B quads/hams 5/5, R hip ER 3+/5 with pain, B hip IR 4/5, B hip abd 4/5 Accessory Movement Test:n/a Flexibility: decreased R>L piriformis Palpation: no pain to touch R hip/low back area Special Tests: + Hip scour R, Decreased mobility noted with ESAU R, SLS R/L x 8-10 seconds Neurological Tests: sensation intact Treatment: updated [facility] Clam shell R/L Reverse clam shell R/L Hip abd R/L in side lying x 10 Hamstring/pirformis stretch R/L Bridge 2 feet, R/L Quadruped arm and leg lift (on ball as needed) SLS R/L Encouraged to continue with swimming as sx permit Assessment/Plan Pt is a 73 y.o. female, referred to PT by Dr. Jason with dx of R hip/LBP/pelvic/groin pain and chronic glut medius tendinopathy. PT impairments include pain, flexibility/strength, decreasedROM and decreased function. Pt would benefit from PT to address the above issues. f/u. After the completion of PT. Impairment List Decreased Functional Strength Increased Pain/Swelling Impaired Balance/Coordination/Proprioception Decreased Flexibility Assessment and Rehab Potential Rehabilitation Potential: good Treatment Plan Short Term Goals: Increase functional strength by 1/4 grade B hip flex Decrease patient complaint of pain to 2/10 with activity update of [facility] Irrigation Teacher/Discharge Goals: Able to return to functional activities, i.e. baseline ex program without increased pain Independent with pain management techniques Independent with home exercise program The patient will be seen by the PT/SKIN TOGGLER with support from the Ornamental Bronze Worker 2 times/week for 12 weeks. Treatment Intervention: Therapeutic exercises Patient education Manual techniques Pricila Curry, PT 03/09/2018 9:34 AM I certify that Molly Rios requires the stated services. Physician's Signature: Print Name: Date: Time: documented in this encounter Plan of Treatment Not on filedocumented as of this encounter Visit Diagnoses Diagnosis Chronic low back pain, unspecified back pain laterality, with sciatica presence unspecified - Primary documented in this encounter Care Teams Shank Inspector Relationship Specialty Start Date End Date Laurie Elias NP PCP - General Family Medicine 03/02/18 11/19/19 [address] [place] [address] documented as of this encounter
--- OUTSIDE RECORDS SUMMARY | 2021-07-22 20:18 | XMS_ITS | Encounter Summary ---
:1945 Author Organization [facility] Address [address] [facility], [address] [place] [address] Care Team Providers Name Role Phone Laurie Elias NP Primary Care Provider Encounter Details Date Type Department Care Team Description 03/09/2018 Orders Only [place], Diverticulitis of Gastrointestinal MD [place] large intestine with Consultants [address] [facility] without 300 [facility], bleed ing (Primary Dx) [address] [place], [place] [id number] [place] [address] Social History Tobacco Use Types Packs/Day Years Used Date Former Smoker Smokeless Tobacco: Never Used Alcohol Use Standard Drinks/Week Comments Defer 0 (1 standard drink = 0.6 oz pure alcoho l) Sex Assigned at Date Recorded Female 04/12/2019 2:19 PM EST documented as of this encounter Plan of Treatment Not on filedocumented as of this encounter Results (ABNORMAL) CBC (03/09/2018 4:47 PM EST) P athologist Signature WBC 11.27 (H) 4.50 to 03/09/2018 [place] 11.00 x 5:16 PM [facility] 10*3u/L LABORATORY 10*3/uL nRBC 0 0 - 0 /100 03/09/2018 [place] WBCs 5:16 PM [facility]ORY RBC 4.35 3.90 to 03/09/2018 [place] 5.03 x 5:16 PM [facility] 10*6/uL LABORATORY 10*6/uL HGB 13.6 12.0 to 03/09/2018 [place] 16.0 g/dL 5:16 PM [facility] g/dL LABORATORY HCT 40.3 36.0% to 03/09/2018 [place] 46.0% % 5:16 PM [facility] LABORATORY MCV 92.6 80.0 to 03/09/2018 [place] 100.0 fL 5:16 PM [facility] fL LABORATORY MCH 31.3 26.0 - 03/09/2018 [place] 33.0 pg 5:16 PM [facility] LABORATORY MCHC 33.7 31.0 to 03/09/2018 [place] 37.0 g/dL 5:16 PM [facility] g/dL LABORATORY PLT 474 (H) 150 to 300 03/09/2018 [place] x 10*3u/L 5:16 PM [facility] 10*3u/L LABORATORY RDW-CV 13.2 11.5 - 03/09/2018 [place] 14.5 % 5:16 PM [facility] LABORATORY Specimen Anatomical Collection Method / Collection Time Recei nancy Time (Source) Location / Volume Laterality Blood Venous blood / Venipuncture / 03/09/2018 4:47 03/09/19 19 4:47 Unknown Unknown PM [facility] PM EST [place] Gorman MD LAB BLOOD ORDERABLES Performing Organization Address City/State/ZIP Code Phon e Number [facility] [address] [place] [address] LABORATORY documented in this encounter Visit Diagnoses Diagnosis Diverticulitis of large intestine with a bscess without bleeding - Primary documented in this encounter Care Teams Daytime Caregiver Relationship Specialty Start Date End Date Laurie Elias NP PCP - General Family Medicine 03/02/18 11/19/19 [address] [place] [address] documented as of this encounter
--- OUTSIDE RECORDS SUMMARY | 2021-07-22 20:18 | XMS_ITS | Encounter Summary ---
:1945 Author Organization [facility] Address 330 [facility], [address] [place] [address] Care Team Providers Name Role Phone Laurie Elias ANN Primary Care Provider Encounter Details Date Type Department Care Team Description 06/22/2018 Rehab [facility] Physical Se lázaro Jason MD [address] [place], [place] [id number] Chronic low back pain, Therapy Pricila Curry, PT unspecified back pain [address] [facility], with [address] [place] [address] unspecified (Primary Dx) [phone] Social History Tobacco Use Types Packs/Day Years Used Date Former Smoker Smokeless Tobacco: Never Used Alcohol Use Standard Drinks/Week Comments Defer 0 (1 standard drink = 0.6 oz pure alcoho l) Sex Assigned at Date Recorded Female 04/12/2019 2:19 PM EST documented as of this encounter Progress Notes Pricila Curry, PT - 06/22/2018 1:00 PM EDT Rehabilitation Services Physical Therapy [address] [facility], [address] [facility] [address] PROGRESS NOTE visit 11 [facility] Molly Rios is a 73 y.o. female.who has been referred to physical therapy by Dr. Jason with dx of R hip pain(decreased ROM, pelvic pain, groin pain, R SI pain, chronic glut medius tendinopathy). Pt reports she is a very active person at baseline. Noticed R LBP in June after swimming (changedher technique and pain improved). Pt seen by PT at [facility] for R hip pain. Started doing side lying hip abd with 5 lb. Developed more pain (? Overdid her ex). + R sided groin pain. CC is weakness B hips. Referred to PT for consult. Will f/u with MD after completion of PT. Seen by ortho at [facility]-x-rays done, advised to strengthen/stretch R LE. ?? [...] + tendonopathy gluteal medius muscle R Subjective Pt reports she feels like she has more strength in her legs. + questions with ex Objective Pain at rest: 0/10-1/10 R hip/groin/LB Func: + difficulty remains with rising from toilet due to weakness R hip. Back to yoga with modifications Treatment: ex Long axis distraction R hip Stretching to R hip adductors in supine Hip abduction in side lying (and circles CW/CCW), standing x 10 Arnulfo stretch R, clam shell/reverse clam shell R, quad stretch R Hamstring stretch R/L (neutral and with ER/IR) Wall sit SLR R x 5, L x 10 (neutral and with ER) Foam roller to R piriformis Hydrant in standing, quadruped, hip extension in quadruped Bridge with march, single leg bridge *unable to tolerate front plank due to pain R shoulder Reviewed: SLS R/L Monster walks (forward/back/side) with green band ?? Encouraged to continue with swimming/riding bike as sx permit Assessment/Plan Pt appears to have better control with single leg bridge. Able to add hydrant up against wall Pt with decreased R hip/groin pain after short axis distraction R hip. Function remains decreased (rising from toilet/half kneeling position). Encouraged to continue with ex as tolerated. Plan: f/u in 2 weeks, continue with distraction R hip and strengthening ex R WES Curry PT 06/22/2018 documented in this encounter Plan of Treatment Not on filedocumented as of this encounter Visit Diagnoses Diagnosis Chronic low back pain, unspecified back pain laterality, with sciatica presence unspecified - Primary documented in this encounter Care Teams Knot Borer Relationship Specialty Start Date End Date Laurie Elias NP PCP - General Family Medicine 03/02/18 11/19/19 [address] [place] [address] documented as of this encounter
--- OUTSIDE RECORDS SUMMARY | 2021-07-22 20:18 | XMS_ITS | Encounter Summary ---
:1945 Author Organization [facility] Address 330 [facility], [address] [place] [address] Care Team Providers Name Role Phone Kevin Miranda MD Primary Care Provider Encounter Details Date Type Department Care Team Description 04/10/2018 Telephone [facility] Pr Laurie Brown, ANN [address] [place] [address] [facility] [phone] Practice [place], [place] [address] (Wo rk) Social History Tobacco Use Types [...] Telephone Encounter - Laurie Elias NP - 04/10/2018 10:23 AM EST Patient returned call. She reports that her night sweats and fevers seemingly resolved over the weekend. Her energy is also up. She reports she is feeling much better and is hopeful that she is now on the path to recovery. As her symptoms have resolved and her WBCs have improved, she prefers to hold off on any additional CT scans. Encouraged she continue with the low-fiber diet for the remainder of the week, then try slowly reintroducing foods. She will also continue with the miralax PRN for constipation. She will let me know if she starts to develop any worsening of symptoms (CT has already been ordered). She is in agreement with this plan. documented in this encounter Plan of Treatment Not on filedocumented as of this encounter Visit Diagnoses Not on filedocumented in this encounter Care Teams Medical Record Transcriber Relationship Specialty Start Date End Date Kevin Miranda MD PCP - General Family Medicine 11/20/[address] [place] [id number] documented as of this encounter
--- OUTSIDE RECORDS SUMMARY | 2021-07-22 20:18 | XMS_ITS | Encounter Summary ---
:1945 Author Organization [facility] Address 330 [facility], [address] [place] [address] Care Team Providers Name Role Phone Laurie Elias NP Primary Care Provider Encounter Details Date Type Department Care Team Description 08/23/2018 Refill [facility] Pr actice Laurie Elias NP [address] [place], [place] [phone] [facility] [phone] [place], [place] [phone] (Wo rk) Social History [...] on filedocumented in this encounter Care Teams Power Ballast Machine Operator Relationship Specialty Start Date End Date Laurie Elias NP PCP - General Family Medicine 03/02/18 11/19/[address] [place] [address] documented as of this encounter
--- OUTSIDE RECORDS SUMMARY | 2021-07-22 20:18 | XMS_ITS | Encounter Summary ---
:1945 Author Organization [facility] Address [address] [facility], [address] [place] [address] Care Team Providers Name Role Phone Laurie Elias NP Primary Care Provider Reason for Visit Reason Comments Groin Pain Encounter Details Date Type Department Care Team Description 11/30/2018 Office Visit Paula Funk, Primary osteoarthritis of right hip (Primary Dx); Practice MD Acute left ankle pain [address] [place] [address] [place], [place] [phone] Social History Tobacco Use Types Packs/Day Years Used Date Former Smoker Smokeless Tobacco: Never Used Alcohol Use Standard Drinks/Week Comments Defer 0 (1 standard drink = 0.6 oz pure alcoho l) Sex Assigned at Date Recorded Female 04/12/2019 2:19 PM EST documented as of this encounter Last Filed Vital Signs Vital Sign Reading Time Taken Comments Blood Pressure 98/70 11/30/2018 11:48 AM EDT Pulse 80 11/30/2018 11:48 AM EDT Temperature 36.7 ??C (98 ??F) 11/30/2018 11:48 AM EDT Respiratory Rate - - Oxygen Saturation 98% 11/30/2018 11:48 AM EDT Inhaled Oxygen Concentration - - Weight 59.6 kg (131 lb 6.4 oz) 11/30/2018 11:48 AM EDT Height - - Body Mass Index 20.89 06/08/2018 3:58 PM EDT documented in this encounter Progress Notes Paula Miranda MD - 11/30/2018 11:30 AM EDT Subjective Patient ID: Molly Rios is a 73 y.o. female. 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 She alsothought the noticed a bulge in the R groin and was concern for a possible hernia therefore presentedfor further evaluation She has seen an orthopedic hip specialist in the past and plans to follow up soon. She denies any acute tauma, falls She also rolled her L ankle about 1 week ago. She has been able to bear weight since injury. Has been icing for the first 2 days The following portions of the patient's history were reviewed and updated as appropriate: allergies,current medications, past medical history, past surgical history, past family history, past social history and problem list. Review of Systems Constitutional: Negative for fever and unexpected weight change. Gastrointestinal: Negative for abdominal pain and constipation. Musculoskeletal: Positive for arthralgias. Objective Vitals: 11/30/18 1148 BP: 98/70 Pulse: 80 Temp: 36.7 ??C (98 ??F) TempSrc: Oral SpO2: 98% Weight: 131 lb 6.4 oz (59.6 kg) Physical Exam Abdominal: General: Abdomen is flat. Bowel sounds are normal. Palpations: Abdomen is soft. Tenderness: There is no tenderness. Hernia: No hernia is present. Musculoskeletal: Right hip: She exhibits decreased range of motion and tenderness. She exhibits no swelling, no deformity and no laceration. Left foot: Normal range of motion. No deformity. Comments: Pain with internal rotation of the R hip Mild tenderness on external rotation Feet: Left foot: Skin integrity: No ulcer or skin breakdown. Comments: +resolving ecchymosis on L lateral foot Assessment/Plan Problem List Items Addressed This Visit Nervous Acute left ankle pain Likely 2/2 strain Less likely fracture Encourage to wear supportive shoes, hard sole with good ankle support Continue w/ ice BID Tylenol 650mg q 6 hours Continue with stretching and exercise Musculoskeletal Primary osteoarthritis of right hip - Primary Groin pain likely due to known OA of the hips Continue with regular exercise Tylenol prn pain Encourage to f/u w/ ortho Paula Miranda MD documented in this encounter Miscellaneous Notes Assessment & Plan Note - Paula Miranda MD - 12/13/2018 5:09 AM EDTAssociated Problem(s): Primary osteoarthritis of right hip Groin pain likely due to known OA of the hips Continue with regular exercise Tylenol prn pain Encourage to f/u w/ ortho Assessment & Plan Note - Paula Miranda MD - 12/13/2018 5:08 AM EDTAssociated Problem(s): Acute left ankle pain Likely 2/2 strain Less likely fracture Encourage to wear supportive shoes, hard sole with good ankle support Continue w/ ice BID Tylenol 650mg q 6 hours Continue with stretching and exercise documented in this encounter Plan of Treatment Not on filedocumented as of this encounter Visit Diagnoses Diagnosis Primary osteoarthritis of right hip - Pr imary Acute left ankle pain documented in this encounter Care Teams Rn Nicu Relationship Specialty Start Date End Date Laurie Elias NP PCP - General Family Medicine 03/02/18 11/19/19 [address] [place] [address] documented as of this encounter
--- OUTSIDE RECORDS SUMMARY | 2021-07-22 20:18 | XMS_ITS | Encounter Summary ---
:1945 Author Organization [facility] Address [address] [facility], [address] [place] [address] Care Team Providers Name Role Phone Laurie Elias ANN Primary Care Provider Reason for Visit Reason Onset Date Comments PT HAS A QUESTION FOR YOU 05/15/2018 Encounter Details Date Type Department Care Team Description 05/15/2018 Telephone [facility], Nawaf Jason PT HAS A QUESTION FOR [facility] MD YOU [address] [place], [place] [phone] [place] [address] [phone] (Wo rk) Social History Tobacco Use Types Packs/Day Years Used Date Former Smoker Smokeless Tobacco: Never Used Alcohol Use Standard Drinks/Week Comments Defer 0 (1 standard drink = 0.6 oz pure alcoho l) Sex Assigned at Date Recorded Female 04/12/2019 2:19 PM EST documented as of this encounter Miscellaneous Notes Telephone Encounter - Nawaf Jason MD - 05/15/2018 6:24 PM EDT I corrected to side to reflect right side Telephone Encounter - Marissa Mckinney MA - 05/15/2018 3:[address] M. PT CAME IN THIS AFTERNOON AND SINCE SHE IS GOING TO SEE A HIP SPECIALIST ON SHE ASKED FOR COPY OF HER ULTRASOUND REPORT FROM PAST FEB! I DID LOOK UP HER CHART THERE WAS ONLY ONE REPORT FROM [facility]01/25/2018 ( WITH HIP GRIDLE ULTRASOUND OF THE LEFT HIP) BUT THE PT INSISTING THAT THE ULTRASOUND WAS SUPPOSED TO BE DONE ON HER RIGHT SIGHT. PLEASE ADVISE. documented in this encounter Plan of Treatment Not on filedocumented as of this encounter Visit Diagnoses Not on filedocumented in this encounter Care Teams Sales And Business Development Manager Relationship Specialty Start Date End Date Laurie Elias NP PCP - General Family Medicine 03/02/18 11/19/19 [address] [place] [address] documented as of this encounter
--- OUTSIDE RECORDS SUMMARY | 2021-07-22 20:18 | XMS_ITS | Encounter Summary ---
:1945 Author Organization [facility] Address [address] [facility], [address] [place] [address] Care Team Providers Name Role Phone Laurie Elias ANN Primary Care Provider Encounter Details Date Type Department Care Team Description 03/13/2018 Rehab [facility] Physical Se lázaro Jason MD [address] [place], [place] [phone] Chronic low back pain, Therapy Pricila Curry, PT unspecified back pain [address] [facility], with [address] [place] [address] unspecified (Primary Dx) [phone] Social History Tobacco Use Types Packs/Day Years Used Date Former Smoker Smokeless Tobacco: Never Used Alcohol Use Standard Drinks/Week Comments Defer 0 (1 standard drink = 0.6 oz pure alcoho l) Sex Assigned at Date Recorded Female 04/12/2019 2:19 PM EST documented as of this encounter Progress Notes Pricila Curry, PT - 03/13/2018 1:30 PM EST Rehabilitation Services Physical Therapy [address] [facility], [address] [facility] [address] PROGRESS NOTE visit 2 ALBERT Rios is a 73 y.o. female.who [...] contact the left L 5 nerve root. Subjective Pt rode her bike to PT session today Objective Pain at rest:1/10 R hip/groin/LB Pain at worst: 3/10 R hip/groin/LB Func: able to ride bike to PT session today Treatment: ex Stretching to R hip adductors in supine Foam roller to R piriformis, R hamstring, R Quad/Hip flexors Clam shell R/L Reverse clam shell R/L Hip abd R/L in side lying x 10 Hamstring/pirformis stretch R/L Bridge 2 feet, R/L, bridge with march Quadruped arm and leg lift (on green ball) SLS R/L Front plank (elbows bent, leg straight and one leg lift)) ?? Encouraged to continue with swimming as sx permit, ride bike as time permits Assessment/Plan Did well with foam roller. Encouraged to continue with stretching. Added front plank to HEP Plan: f/u next week, progress as indicated. Pricila Curry PT 03/13/2018 documented in this encounter Plan of Treatment Not on filedocumented as of this encounter Visit Diagnoses Diagnosis Chronic low back pain, unspecified back pain laterality, with sciatica presence unspecified - Primary documented in this encounter Care Teams Technical Support Consultant Relationship Specialty Start Date End Date Laurie Elias NP PCP - General Family Medicine 03/02/18 11/19/19 [address] [place] [address] documented as of this encounter
--- OUTSIDE RECORDS SUMMARY | 2021-07-22 20:18 | XMS_ITS | Encounter Summary ---
:1945 Author Organization [facility] Address [address] [facility], [address] [place] [address] Care Team Providers Name Role Phone Laurie Elias NP Primary Care Provider Reason for Referral Diagnostic Imaging (Routine) - Closed Specialty Diagnoses / Procedures Referred By Contact Refer red To Contact Radiology Diagnoses Diverticulitis Laurie Elias NP Procedures CT Abdomen Pelvis with Contrast [address] [place] [address] Referral ID Status Reason Start Date Expiration Date Visits Requ ested Visits Authorized [id number] Closed 04/09/2018 04/09/2019 1 1 Encounter Details Date Type Department Care Team Description 04/07/2018 Office Visit Heather Gómezul itis (Primary Dx); Practice ANN Sullivan Vitamin D deficiency [address] [place] [address] Corinne [phone] [place] [address] Social History Tobacco Use Types Packs/Day Years Used Date Former Smoker Smokeless Tobacco: Never Used Alcohol Use Standard Drinks/Week Comments Defer 0 (1 standard drink = 0.6 oz pure alcoho l) Sex Assigned at Date Recorded Female 04/12/2019 2:19 PM EST documented as of this encounter Last Filed Vital Signs Vital Sign Reading Time Taken Comments Blood Pressure 102/60 04/07/2018 11:41 AM EST Pulse 71 04/07/2018 11:41 AM EST Temperature 36.6 ??C (97.8 ??F) 04/07/2018 11:41 AM EST Respiratory Rate - - Oxygen Saturation 97% 04/07/2018 11:41 AM EST Inhaled Oxygen Concentration - - Weight 55 kg (121 lb 3.2 oz) 04/07/2018 11:41 AM EST Height - - Body Mass Index 18.98 11/01/2017 10:11 AM EDT documented in this encounter Progress Notes Laurie Elias, COOLER SERVICER - 04/07/2018 11:30 AM EST Subjective Patient ID: Molly Rios is a 73 y.o. female. HPI CC: Diverticulitis - Finished entire course of metronidazole as prescribed on 03/24/18 - Took last dose of antibiotics on 04/03/18 - She remained fever/night sweat free for a few days after finishing the abx - Her night sweats have actually improved since her last visit (before, she would wake up with her shirt soaked at night, now just a few wet patches) - She is still experiencing some discomfort in the LLQ - She is very constipated but sticking to a low-fiber diet - She recently started miralax x 1 for constipation (Before she was using tony seeds) - Tmax 99.5 F (last night), though an hour later improved to 98 F without intervention - She is going about her normal routine (swimming a few times per week), although she is still w/lowenergy - Requests CBC today to trend her WBCs Review of Systems See HPI Objective Physical Exam Constitutional: She is oriented to person, place, and time. She appears well- developed and well-nourished. No distress. Well-appearing, NAD Pleasantly conversant HENT: Head: Normocephalic and atraumatic. Eyes: Pupils are equal, round, and reactive to light. Neck: Normal range of motion. Neck supple. Abdominal: There is tenderness (mild) in the left lower quadrant. Musculoskeletal: Normal range of motion. Neurological: She is alert and oriented to person, place, and time. Skin: Skin is warm and dry. She is not diaphoretic. Assessment/Plan Diagnoses and all orders for this visit: Diverticulitis 73 year old well-appearing female with known severe diverticulitis presenting with low-grade fevers and night sweats that returned after finishing subsequent 10 day course of metronidazole s/p diverticulosis flare. She is otherwise well without any other acute concerns. There is mild TTP in the LLQ, normal BS. LSCTAB, no SOB. No dysuria or suprapubic pain. Discussed case with Dr. Gorman at [facility], who recommended repeating CT to determine if there is an abscess. Discussed with patient who prefers tohold off on pursuing CT until we repeat CBC. She is also nervous about excessive radiation, so I will see if radiology may be able to accommodate a lower-dose CT. For constipation, recommend miralax BID with a full glass of water. Strict ED precautions were reviewed including worsening fevers, worsening pain, or any new/or worsening symptoms. Patient in agreement with plan and denies further questions. - [facility] - CBC (with Differential and Platelets); Future - CT Abdomen Pelvis with Contrast; Future Vitamin D deficiency She also requests to check vitamin D levels today - Vitamin D 1,25 dihydroxy; Future documented in this encounter Plan of Treatment Scheduled Orders Name Type Priority Associated Diagnoses Order S chedule [facility] - CBC (with Lab Routine Diverticulitis Expected : 04/09/2018, Differential and Expires: Platelets) CT Abdomen Pelvis with Imaging Routine Diverticulitis Exp ected: 04/09/2018, Contrast Expires: 2019 documented as of this encounter Procedures Procedure Name Priority Date/Time Associated Comments Diagnosis VITAMIN D 1,25 Routine 04/07/2018 1:28 PM Vitamin D Results for this DIHYDROXY EST deficiency procedure are i n the results section. [facility] - CBC (INCLUDES Routine 04/07/2018 1:28 PM Results for this DIFFERENTIAL AND EST procedure a re in PLATELETS) the results section. documented in this encounter Results [facility] - CBC (with Differential and Platelets) (04/07/2018 1:28 PM EST) [facility] Method Time Signature White Blood 10.3 3.8 - [facility] Count 10.8 [place] [facility] Red Blood Count 4.72 3.80 - [facility] ics 5.10 [place] Million/u [facility] L [facility] Hemoglobin 14.5 11.7 - [facility] 15.5 g/dL [place] [facility] Hematocrit 42.9 35.0 - [facility] 45.0 % [place] [facility] MCV 90.9 80.0 - [facility] 100.0 fL [place] [facility] MCH 30.7 27.0 - [facility] 33.0 pg [place] [facility] MCHC 33.8 32.0 - [facility] 36.0 g/dL [place] [facility] MRDW 12.7 11.0 - [facility] 15.0 % [place] [facility] Platelet count 398 140 - 400 [facility] Thousand/ [place] uL [facility] MPV 10.0 7.5 - [facility] 12.5 fL [place] [facility] Absolute 7,189 1,500 - [facility] Neutrophil Count 7,800 [place] cells/uL [facility] Lymphosytes 1,978 850 - [facility] absolute 3,900 [place] cells/uL [facility] Absolute 834 200 - 950 [facility] Monocyte count cells/uL [place] [facility] Absolute 175 15 - 500 [facility] Eosinophil count cells/uL [place] [facility] Lymphocyte 124 0 - 200 [facility] cells/uL [place] [facility] Neutrophils 69.8 % [facility] [place] [facility] Lymphocyte 19.2 % [facility] [place] [facility] Monocytes 8.1 % [facility] [place] [facility] Eosinophil 1.7 % [facility] [place] [facility] Basophil 1.2 % [facility] [place] [facility] Specimen Anatomical Collection Method Collection Time Receive d Time (Source) Location / / Volume Laterality 04/07/2018 1:28 PM 9 1:29 EST PM EST Laurie Elias NP LAB BLOOD ORDERABLES Performing Organization Address City/State/ZIP Code Phon e Number [employer] [address] [id number] [place] [address], [address] [facility] [address] [place] [address], [facility] [address] [phone] Diagnost Vitamin D 1,25 dihydroxy (04/07/2018 1:28 PM EST) athologist Signature Vitamin 62 18 - 72 [facility] 1,25-OH,Total pg/mL Diagnostics/[facility] Vitamin D3, 62 pg/mL [facility] 1,25-OH Diagnostics/[place] [facility] Vitamin <8 pg/mL [facility] D2,1,25-OH Diagnostics/[place] [facility] Comment: Vitamin D3, 1,25(OH) indicates both endo genous production and supplementation. Vitamin D2, 1,25(OH)2 is an indicator of exogenous sources, hidalgo ch as diet or supplementation. ??Interpretation and th erapy are based on measurement of Vitamin D,1,25(OH)2, T otal. This test was developed and its analytic al performance characteristics have been de termined by [facility], [place], [place]. It has not been cleared or approved by [facility]. This assay has been validated pursuant to the CLIA regulations and is used for clinical pur poses. Specimen Anatomical Collection Method Collection Time Receive d Time (Source) Location / / Volume Laterality Blood Venous blood / 04/07/2018 1:28 PM 019 1:29 Unknown EST PM EST Laurie Elias NP LAB BLOOD ORDERABLES Performing Organization Address City/State/ZIP Code Phon e Number [employer] [address] [id number] [place] [address], [address] [address] Diagnostics/[facility] documented in this encounter Visit Diagnoses Diagnosis Diverticulitis - Primary Diverticulitis of colon (without mention of hemorrhage) Vitamin D deficiency documented in this encounter Care Teams Programmer Analyst Consultant Relationship Specialty Start Date End Date Laurie Elias NP PCP - General Family Medicine 03/02/18 11/19/19 [facility] [place] [address] documented as of this encounter
--- OUTSIDE RECORDS SUMMARY | 2021-07-22 20:18 | XMS_ITS | Encounter Summary ---
:1945 Author Organization [facility] Address [address] [facility], [address] [place] [address] Care Team Providers Name Role Phone Laurie Elisa ANN Primary Care Provider Encounter Details Date Type Department Care Team Description 03/15/2018 Telephone [facility] Dallas zurita MD Consultants [address] [facility], [address] [facility], [facility] [address] [place], [place] [id number] [place] [address] [phone] (Wo rk) Social History Tobacco Use Types Packs/Day Years Used Date Former Smoker Smokeless Tobacco: Never Used Alcohol Use Standard Drinks/Week Comments Defer 0 (1 standard drink = 0.6 oz pure alcoho l) Sex Assigned at Date Recorded Female 04/12/2019 2:19 PM EST documented as of this encounter Miscellaneous Notes Telephone Encounter - Dallas Gorman MD - 03/15/2018 4:29 PM EST I called the patient and we discussed her progress with antibiotic therapy for acute diverticulitis.She has become afebrile on Flagyl and a liquid diet. I have recommended that she move to low fiber solids and continue Flagyl. She will call to make an appointment for a colonoscopy in 1-2 months. WRB Telephone Encounter - Laura Mak MA - 03/15/2018 1:34 PM EST She's been on a full liquid diet for a week and wants to speak with you to see what she can start eating. documented in this encounter Plan of Treatment Not on filedocumented as of this encounter Visit Diagnoses Not on filedocumented in this encounter Care Teams Speeder Worker Relationship Specialty Start Date End Date Laurie Elias NP PCP - General Family Medicine 03/02/18 11/19/19 [address] [place] [address] documented as of this encounter
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
--- OUTSIDE RECORDS SUMMARY | 2021-07-22 20:18 | XMS_ITS | Encounter Summary ---
:1945 Author Organization [facility] Address [address] [facility], [address] [place] [address] Care Team Providers Name Role Phone Laurie Elias NP Primary Care Provider Encounter Details Date Type Department Care Team Description 05/29/2018 Travel Social History Tobacco Use Types Packs/Day [...] on filedocumented in this encounter Care Teams Apple Sorter Relationship Specialty Start Date End Date Laurie Elias NP PCP - General Family Medicine 03/02/18 11/19/[address] [place] [address] documented as of this encounter
--- OUTSIDE RECORDS SUMMARY | 2021-07-22 20:18 | XMS_ITS | Encounter Summary ---
:1945 Author Organization [facility] Address [address] [facility], [address] [place] [address] Care Team Providers Name Role Phone Laurie Elias CIRCULAR SHEAR OPERATOR Primary Care Provider Encounter Details Date Type Department Care Team Description 03/31/2018 Telephone [facility] Dallas zurita MD Consultants [address] [facility], [address] [facility] [address], [facility] [address] [place], [place] [phone] [place] [address] [phone] (Wo rk) Social History Tobacco Use Types Packs/Day Years Used Date Former Smoker Smokeless Tobacco: Never Used Alcohol Use Standard Drinks/Week Comments Defer 0 (1 standard drink = 0.6 oz pure alcoho l) Sex Assigned at Date Recorded Female 04/12/2019 2:19 PM EST documented as of this encounter Miscellaneous Notes Telephone Encounter - Laura Mak MA - 03/31/2018 3:17 PM EST She thinks she's having side effects from the Flagyl and she would like to speak with you about them. documented in this encounter Plan of Treatment Not on filedocumented as of this encounter Visit Diagnoses Not on filedocumented in this encounter Care Teams Aerospace Engineer Officer Armament Relationship Specialty Start Date End Date Laurie Elias NP PCP - General Family Medicine 03/02/18 11/19/19 [address] [place] [address] documented as of this encounter
--- OUTSIDE RECORDS SUMMARY | 2021-07-22 20:18 | XMS_ITS | Encounter Summary ---
:1945 Author Organization [facility] Address [address] [facility], [address] [place] [address] Care Team Providers Name Role Phone Laurie Elias NP Primary Care Provider Encounter Details Date Type Department Care Team Description 11/30/2018 Refill [facility] Pr actice Laurie Elias NP [address] [place], [place] [id number] [facility] [phone] [place], [place] [address] (Wo rk) Social History [...] on filedocumented in this encounter Care Teams Muck Operator Relationship Specialty Start Date End Date Laurie Elias NP PCP - General Family Medicine 03/02/18 11/19/[address] [place] [address] documented as of this encounter
--- OUTSIDE RECORDS SUMMARY | 2021-07-22 20:18 | XMS_ITS | Encounter Summary ---
:1945 Author Organization [employer] Address [address] [facility], [address] [place] [address] Care Team Providers Name Role Phone Laurie Elias ANN Primary Care Provider Encounter Details Date Type Department Care Team Description 04/05/2018 Rehab [facility] Physical Se lázaro Jason MD [address], [place] [id number] Chronic low back pain, Therapy Pricila Curry, PT unspecified back pain [address] [facility], [address] [place] [address] unspecified (Primary Dx) [phone] Social History Tobacco Use Types Packs/Day Years Used Date Former Smoker Smokeless Tobacco: Never Used Alcohol Use Standard Drinks/Week Comments Defer 0 (1 standard drink = 0.6 oz pure alcoho l) Sex Assigned at Date Recorded Female 04/12/2019 2:19 PM EST documented as of this encounter Progress Notes Pricila Curry, PT - 04/05/2018 1:30 PM EST Rehabilitation Services Physical Therapy [address] [facility] [facility], [address] [facility] [id number] PROGRESS NOTE visit 5 ALBERT Rios is a 73 y.o. female.who has been referred to physical therapy by Dr. Jason with dx of R hip pain(decreased ROM, pelvic pain, groin pain, R SI pain, chronic glut medius tendinopathy). Pt reports she is a very active person at baseline. Noticed R LBP in June after swimming (changedher technique and pain improved). Pt seen by PT at [facility] for [place] pain. Started doing side lying hip abd with 5 lb. Developed more pain (? Overdid her ex). + R sided groin pain. CC is weakness B hips. Referred to PT for consult. Will f/u with MD after completion of PT. Seen by ortho at [facility], advised to strengthen/stretch R LE. ?? [...] with mild diffuse synovial inflammation Popliteal cyst Subjective S/p visit to Dr. Argueta re: R knee pain- given script for R knee OA Pt with c/o R hip/low back/groin pain after completing Yoga class. Has just finished another round of antibiotics for GI issues Objective Pain at rest:0/10-4/10 R hip/groin/LB, 0/10-5/10 R knee Func: + difficulty with kneeling due to pain R knee, swimming is difficult (has cut back due to being sick) Treatment: ex Stretching to R hip adductors in supine Hip abd R in side lying x 10, circles cw/ccw (2 lb) Hamstring stretch R (IR/ER) Bridge with april, bridge on green ball Wall sit (with emphasis on L LE) Reviewed: Foam roller to R piriformis, R hamstring, R Quad/Hip flexors Clam shell R (with green band), Reverse clam shell R x 10 Quadruped arm and leg lift (on green ball) SLS R/L Front plank (elbows bent, leg straight and one leg lift) SLR R (neutral and ER)-2 lb Monster walks (forward/back/side) with green band ?? Encouraged to continue with swimming/riding bike as sx permit Assessment/Plan Pt with less pain R hip/low back. S/p visit to Dr. Argueta and given new script for R Knee OA. Addedwall sit to HEP Plan; f/u next week, advance LE ex as hip/knee sx allow. Pricila Curry, PT 04/05/2018 documented in this encounter Plan of Treatment Not on filedocumented as of this encounter Visit Diagnoses Diagnosis Chronic low back pain, unspecified back pain laterality, with sciatica presence unspecified - Primary documented in this encounter Care Teams Patient Sitter Relationship Specialty Start Date End Date Laurie Elias NP PCP - General Family Medicine 03/02/18 11/19/19 [address] [place] [address] documented as of this encounter
--- OUTSIDE RECORDS SUMMARY | 2021-07-22 20:19 | XMS_ITS | Encounter Summary ---
:1945 Author Organization [facility] Address [address] [facility], [address] [place] [address] Care Team Providers Name Role Phone Lisa Sotelo MD Primary Care Provider Reason for Referral Diagnostic Imaging (Routine) - Closed Specialty Diagnoses / Procedures Referred By Contact Refer red To Contact Diagnoses Chronic pain of left knee Nawaf Jason MD Procedures X-ray Knee 3 Views Left [address] [place] [address] Referral ID Status Reason Start Date Expiration Date Visits Requ ested Visits Authorized [id number] Closed 06/13/2017 06/13/2018 1 1 iagnostic Imaging (Routine) - Closed Specialty Diagnoses / Procedures Referred By Contact Refer red To Contact Radiology Diagnoses Radiculopathy, lumbar region Nawaf Jason MD Procedures MRI Lumbar Spine without Contrast [address] [place] [address] Referral ID Status Reason Start Date Expiration Date Visits Requ ested Visits Authorized [id number] Closed 06/13/2017 06/13/2018 1 1 Encounter Details Date Type Department Care Team Description 06/13/2017 Consult [facility], Nawaf Jason, Radiculopathy, lumbar region (Primary Dx); IRIS [place] It band syndrome, left; [address] Lateral knee pain, left; [place] [address] [place] [address] Chronic pain of left knee [phone] (Wo rk) Social History Tobacco Use Types [...] - Inhaled Oxygen Concentration - - Weight 59.9 kg (132 lb) 06/13/2017 1:19 PM EDT Height 170.2 cm (5' 7) 06/13/2017 1:19 PM EDT Body Mass Index 20.67 06/13/2017 1:19 PM EDT documented in this encounter Progress Notes Nawaf Jason MD - 06/13/2017 1:00 PM EDT Images from the original note were not included. [facility] [place] [facility]: [address] [facility]: [address] [facility]: [address] [facility] T: [phone] F:[phone] [email or web address] Reason for PM&R Consultation: 1. Radiculopathy, right lumbar 2. LB, Rt. Hip, and Ancelmo. Leg Pain, Rt. Leg Worse, and Rt. Foot Tingling, on occasion Visit diagnosis: Diagnosis Description ICD-9-CM ICD-10-CM 1. Radiculopathy, lumbar region 724.4 M54.16 2. It band syndrome, left 728.89 M76.32 3. Chronic pain of left knee 719.46 M25.562 338.29 G89.29 Assessment and Plan : Molly Rios is a 72 y.o. female presents for initial Physiatric consultation with following assessment and plan Athletic 72-year-old female who loves exercise. She has a lower back pain in the lumbar spine aroundL3-L4 segment on the right side which I think is related to the facet joints. She also has lower lumbar spine/SI joint discomfort with physical activity and exercise. Additionally, slightly proximal tothe knee, on the lateral aspect, somewhat close to the distal tendons of the vastus lateralis versusthe IT band, she has localized pain there. Recommended a compound for the knee pain. Recommended theconsideration for MRI of the lumbar spine before we consider advanced treatments including interventions. She also has some groin pain with Fabere maneuver which correspond to mild osteoarthritis of the hips. Education /counseling: In addition to in person counseling, patient was directed to our webpage for further education on the topic : [employer] cc: Lisa Sotelo MD Dear Lisa Sotelo MD Thank you for referring Molly Rios is a 72 y.o. female to [facility]. Initial physiatry HPI 06/24/2017: Molly Rios, a 72 y.o. female present on 06/24/2017 for a physiatric consultation. Patient presents with primarily axial lower back discomfort which has been going on for about 10 years and has been on and on and off issue for her. There is no sciatic pain. Axial pain right side around L3-L4 segment. Lumbar extension increases pain. She likes to exercise and she is a fit person for age. That includes playing tennis. Has been harder and harder for her to do so. Partially because of the back and partially because of her knee. She has done physical therapy and applied heat for that has not helped. In the [facility] she had an x-ray done in June 2013. Otherwise no workup has been done. No weakness no incontinence of urine or stool. She is here for consultation. Her past medical history is significant for surgery on the right knee, left shoulder, right shoulder and clavicular fracture as a result of trauma Notes Recorded by Nawaf Jason MD on 06/22/2017 at 1:44 PM ??Lumbar MRI demonstrated degenerative findings. ?? 1. At L2-L3, borderline narrowing of the spinal canal secondary to disc bulge, facet and ligamentum flavum hypertrophy. ??Bilateral disc protrusions result in mxie-li-bstlrsrb right and mild left neural foraminal narrowing, but without significant mass effect on the exiting L2 nerve roots. 2. At L5-S1, moderate encroachment of the right neural foramina and contact of the exiting right L5 nerve root. 3. At L4-L5, slight encroachment of the left subarticular zone, likely to contact the left central L5 nerve root. 4. Sigmoid diverticulosis. Notes Recorded by Nawaf Jason MD on 06/20/2017 at 8:15 PM The bones are mildly demineralized. ??The joint spaces are not narrowed. ??Minor spurring is noted involving both compartments, off the tibial spines, and at the patellofemoral joint Physicial Exam: Consitutional: Molly is A/Ox 3. In no medical distress at the time of exam VS: Ht 1.702 m (5' 7) Wt 132 lb (59.9 kg) BMI 20.67 kg/m2 Neurologic: Normal mentation and speech. Skin: No rash or infection in the visible and examined area. Respiratory: Nonlabored breathing Gastrointestinal: Nondistended. Lymphatics: No lymphadenpathy in area examined. Cardiopulmunary: No visible cyanosis or clubbing. Warm extremities Ear and Nose: Able to hear me well Eyes: Able to see me well Spine and MSK Examination: Painful facet joint on the right side of the spine around L3-L4 segment. Extension increases such pain. She has pain along the left IT band. She has some degree of discomfort in the sacroiliac joints. She also has pain around distal tendon vastus lateralis/IT band reproducing localized pain.. Mild Fabere maneuver on the right. Otherwise exam is unremarkable Today's Orders : Orders Placed This Encounter Procedures ??? MRI Lumbar Spine without Contrast Allergies: in chart, no other risk No auth needed CR: [id number] 2.2.18 Conservative tx: PT No hx of ca or back surgery Standing Status: Future Number of Occurrences: 1 Standing Expiration Date: 12/13/2018 Order Specific Question: What is the patient's sedation requirement? Answer: No Sedation ??? X-ray Knee 3 Views Left Standing Status: Future Number of Occurrences: 1 Standing Expiration Date: 06/13/2018 Order Specific Question: Reason for Exam: Answer: painful left knee Data review : Chart Update: Chart updated on 06/24/2017 based on the information provided by Ms. Barnes at the time of the fu visit . This includes changes since last visit in PMH, SH, FH, PSH, medications, allergies. To keep this note in a reasonable length and being environmentally responsible when this note isto be printed, only medications and allergies were added to the current text. For Complete data review , please see patient chart on our EMR. Referring physician records and available PT notes obtained& reviewed Current Problem List: Past Medical History: Diagnosis Date ??? 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 aspirin 81 mg EC tablet, Take 81 mg by mouth daily., Disp: , Rfl: ??? ASTRAGALUS ROOT EXTRACT, BULK, MISC, , Disp: , Rfl: ??? b complex vitamins [...] 1 capsule (10 mg total) by mouth nightly., Disp: 30 capsule, Rfl: 2 ??? omega-3 fatty acids-fish oil (FISH OIL) 300-1,000 mg capsule, Take 1 g by mouth daily., Disp: , Rfl: ??? TURMERIC (CURCUMIN MISC), , Disp: , Rfl: Current Allergies: Hydrocodone-acetaminophen; Oxycodone; and Opioids - morphine analogues Review of Systems: 13 system reviewed on 06/24/2017 with Ms. Barnes. Positive systems are outlined in history of present illness. All other systems are negative at a time of visit. Lab reviewed: Lab Results Component Value Date CREATININE 0.71 03/18/2017 Imaging: Available PACS Films as well as results reviewed with Molly. Lspine : XRAYS Results for orders placed in visit on 07/02/13 X-Ray lumbar spine 2-3 views ap lat Narrative Findings: Disc space narrowing with minor articular surface sclerosis and degenerative spur formation is noted at the L3-4, L4-5, L5-L1 level. There are minor degenerative spurs elsewhere the lumbar spine. Sclerosis is noted involving the facet joints in the lower lumbar spine. There is no evidence of a spondylolisthesis. The heights of the lumbar vertebrae are preserved. Impression: Degenerative change. documented in this encounter Plan of Treatment Not on filedocumented as of this encounter Results MRI Lumbar Spine without Contrast (06/22/2017 10:08 AM EDT) Anatomical Region Laterality Modality L-spine Magnetic Resonance Specimen (Source) Anatomical Collection Method Collection Time Re ceived Time Location / / Volume Laterality 06/22/2017 9:45 AM EDT Impressions 06/22/2017 11:06 AM EDT 1. At L2-L3, borderline narrowing of the spinal canal secondary to disc bulge, facet and ligamentum flavum hypertrophy. ??Bilateral disc protrusions result in uhdl-kj-ggvjlvjc right and mild left neural foraminal narrowing, but without signif icant mass effect on the exiting L2 nerve roots. 2. At L5-S1, moderate encroachment of th e right neural foramina and contact of the exiting right L5 nerve root. 3. At L4-L5, slight encroachment of the left subarticular zone, likely to contact the left central L5 nerve root. 4. Sigmoid diverticulosis. Dictated: 06/22/2017 11:06 AM Report ID: [id number] Report signed in external system at 06/22 11:06 Reported By: Dusty Norwood M.D. (NATALIA) Signed By: Dusty Norwood M.D. (NATALIA) Narrative 06/22/2017 11:06 AM EDT RESPONSIBLE DIRECTOR CORPORATE SECURITY: Dusty Norwood M.D. EXAMINATION: MRI LUMBAR SPINE WO CONTRAST CLINICAL INDICATION: 72-year-old female presenting with low b ack pain at the region of L3-L4. ??Also right hip pain and bilateral leg pain and right foot tingling TECHNIQUE: Sagittal and axial T1 and T2, and sagitt al fat-suppressed T2 sequences were obtained without intravenous contrast. COMPARISON: Comparison is made to plain radiographs dated 07/02/2013. FINDINGS: Vertebral body alignment: There is jacqueline l alignment of the lumbar spine. Vertebral body heights/ ??Bone marrow: V ertebral body height is preserved, demonstrating minor anterior osteophyte spurring. There are scattered Schmorl's nodes most marked at the superior endplate of L3, associated with endplate marrow changes at L2-L3. Lesser degree of endplate marrow changes are noted at L1-L2, L3-L4,, and L4-L5. ??Schmorl's nodes associated with endplate marrow changes are also seen of the imaged lower thoracic spine. Intervertebral discs: There is loss of T 2 signal intensity of the discs, consistent with disc desiccation. ??Moderate loss of disc height is noted at L4- L5 and there is mild loss of disc height at L3-L4 and L5-S1. Conus medullaris: Conus is normal in con figuration, signal characteristics, terminating at approximately the level of L1-L2. Significant by levels: L1-2: There is a mild broad-based disc b ulge accompanied by minor facet/ ligamentum flavum hypertrophy. ??There is no significant narrowing of the spinal canal, or neural foramina. L2-3: There is a broad-based disc bulge and facet/ ligamentum flavum hypertrophy, impressing the posterolateral aspect of the thecal sac, resulting in borderline narrowing of ??the spinal canal, but wit hout yasmeen spinal canal stenosis. ??Bila teral disc protrusions result in uoua-mo-difsgeet right and mild left neural foraminal narrowing, but without contact of both exiting L2 nerve roots. L3-4: There is a mild broad-based disc b ulge with slight flattening of the ventral thecal sac. ??Superimposed is a sellar/ligamentum flavum hypertrophy, but without significant narrowing of the spinal c anal. ??There is mild bilateral neural f oraminal narrowing. L4-5: There is a broad-based disc bulge mildly indenting the ventral thecal sac. ??Superimposed is facet/ ligamentum flavum hypertrophy, impressing the left greater than right posterolateral aspect of t he thecal sac, but without yasmeen narrowi ng of the spinal canal. ??There is slight encroachment of the left subarticular zone, likely to contact the left central L5 nerve root. ??There is mild bilateral neural foraminal encroachment. L5-S1: There is a broad-based disc bulge and endplate osteophyte, and superimposed facet hypertrophy, resulting in moderate encroachment of the right neural foramina and contact of the exiting right L5 nerve root. ??There is elhk-iw-adbliubh encroachment of the left neural foramina, but without contact of the exiting left L5 nerve root. ??There is no significant narrowing of the spinal canal. Other: Fatty replacement of the paraspin ous musculature is noted at L4-L5 and L5-S1. Pelvic viscera are not evaluated. ??Sigm oid diverticulosis is noted. ??There is trace free pelvic fluid. Procedure Note Dusty Norwood MD - 06/22/2017 RESPONSIBLE DIRECTOR CORPORATE SECURITY: Dusty Norwood M.D. EXAMINATION: MRI LUMBAR SPINE WO CONTRAST CLINICAL INDICATION: 72-year-old female presenting with low b ack pain at the region of L3-L4. Also right hip pain and bilateral leg pain and right foot tingling TECHNIQUE: Sagittal and axial T1 and T2, and sagitt al fat-suppressed T2 sequences were obtained without intravenous contrast. COMPARISON: Comparison is made to plain radiographs dated 07/02/2013. FINDINGS: Vertebral body alignment: There is jacqueline l alignment of the lumbar spine. Vertebral body heights/ Bone marrow: Jong tebral body height is preserved, demonstrating minor anterior osteophyte spurring. There are scattered Schmorl's nodes most marked at the superior endplate of L3, associated with endplate marrow changes at L2-L3. Lesser degree of endplate marrow changes are noted at L1-L2, L3-L4,, and L4-L5. Schmorl's nodes associated with endplate marrow changes are also seen of the imaged lower thoracic spine. Intervertebral discs: There is loss of T 2 signal intensity of the discs, consistent with disc desiccation. Moderate loss of disc height is noted at L4-L5 and there is mild loss of disc height at L3-L4 and L5-S1. Conus medullaris: Conus is normal in con figuration, signal characteristics, terminating at approximately the level of L1-L2. Significant by levels: L1-2: There is a mild broad-based disc b ulge accompanied by minor facet/ ligamentum flavum hypertrophy. There is no significant narrowing of the spinal canal, or neural foramina. L2-3: There is a broad-based disc bulge and facet/ ligamentum flavum hypertrophy, impressing the posterolateral aspect of the thecal sac, resulting in borderline narrowing of the spinal canal, but without yasmeen spinal canal stenosis. Bilateral disc pr otrusions result in cdcg-ty-azqmuehj right and mild left neural foraminal narrowing, but without contact of both exiting L2 nerve roots. L3-4: There is a mild broad-based disc b ulge with slight flattening of the ventral thecal sac. Superimposed is a sellar/ligamentum flavum hypertrophy, but without significant narrowing of the spinal canal. There is mild bilateral neural foraminal narro wing. L4-5: There is a broad-based disc bulge mildly indenting the ventral thecal sac. Superimposed is facet/ ligamentum flavum hypertrophy, impressing the left greater than right posterolateral aspect of the thecal sac, but without yasmeen narrowing of the spinal canal. There is slight encroachment of the left subarticular zone, likely to contact the left central L5 nerve root. There is mild bilateral neural foraminal encroachment. L5-S1: There is a broad-based disc bulge and endplate osteophyte, and superimposed facet hypertrophy, resulting in moderate encroachment of the right neural foramina and contact of the exiting right L5 nerve root. There is deft-bc-edoiszqw encroachment o f the left neural foramina, but without contact of the exiting left L5 nerve root. There is no significant narrowing of the spinal canal. Other: Fatty replacement of the paraspin ous musculature is noted at L4-L5 and L5-S1. Pelvic viscera are not evaluated. Sigmoi d diverticulosis is noted. There is trace free pelvic fluid. IMPRESSION: 1. At L2-L3, borderline narrowing of the spinal canal secondary to disc bulge, facet and ligamentum flavum hypertrophy. Bilateral disc protrusions result in hrid-mq-kwuwrckd right and mild left neural foraminal narrowing, but without signifi cant mass effect on the exiting L2 nerve roots. 2. At L5-S1, moderate encroachment of th e right neural foramina and contact of the exiting right L5 nerve root. 3. At L4-L5, slight encroachment of the left subarticular zone, likely to contact the left central L5 nerve root. 4. Sigmoid diverticulosis. Dictated: 06/22/2017 11:06 AM Report ID: [id number] Report signed in external system at 06/22 11:06 Reported By: Dusty Norwood M.D. (NATALIA) Signed By: Dusty Norwood M.D. (NATALIA) Nawaf Jason MD IMG MRI PROCEDURES X-ray Knee 3 Views Left (06/20/2017 4:14 PM EDT) Anatomical Region Laterality Modality Knee Left Digital Radiography Specimen (Source) Anatomical Collection Method Collection Time Re ceived Time Location / / Volume Laterality 06/20/2017 4:30 PM EDT Impressions 06/20/2017 4:16 PM EDT Degenerative change. Dictated: 06/20/2017 4:16 PM Report ID: [id number] Report signed in external system at 06/20 16:16 Reported By: Wale Faustin M.D. (TAMICA P) Signed By: Wale Faustin M.D. (JACQUELINE) Narrative 06/20/2017 4:16 PM EDT RESPONSIBLE DIRECTOR CORPORATE SECURITY: Wale Faustin M.D. EXAMINATION: XR KNEE 3 VW LEFT CLINICAL INDICATION: Chronic left knee pain. ??No injury. TECHNIQUE: Three views of the left knee. COMPARISON: None FINDINGS: The bones are mildly demineralized. ??Th e joint spaces are not narrowed. ??Minor spurring is noted involving both compartments, off the tibial spines, and at the patellofemoral joint. ??There is no evid ence of an effusion. ??No other abnormal ity is seen. Procedure Note Wale Faustin MD - 06/20/2017Formattin g of this note might be different from the original. RESPONSIBLE DIRECTOR CORPORATE SECURITY: Wale Faustin M.D. EXAMINATION: XR KNEE 3 VW LEFT CLINICAL INDICATION: Chronic left knee pain. No injury. TECHNIQUE: Three views of the left knee. COMPARISON: None FINDINGS: The bones are mildly demineralized. The joint spaces are not narrowed. Minor spurring is noted involving both compartments, off the tibial spines, and at the patellofemoral joint. There is no evidence of an effusion. No other abnormality is seen. IMPRESSION: Degenerative change. Dictated: 06/20/2017 4:16 PM Report ID: [id number] Report signed in external system at 06/20 16:16 Reported By: Wale Faustin M.D. (TAMICA P) Signed By: Wale Faustin M.D. (ROGP) Nawaf Jason MD IMG XR PROCEDURES documented in this encounter Visit Diagnoses Diagnosis Radiculopathy, lumbar region - Primary Thoracic or lumbosacral neuritis or radi culitis, unspecified It band syndrome, left Lateral knee pain, left Chronic pain of left knee Chronic pain of left knee Radiculopathy, lumbar region Thoracic or lumbosacral neuritis or radi culitis, unspecified documented in this encounter Care Teams Central Office Worker Relationship Specialty Start Date End Date Lisa Sotelo MD PCP - General Family Medicine 08/19/16 03/01/18 [address] [id number] documented as of this encounter
--- OUTSIDE RECORDS SUMMARY | 2021-07-22 20:19 | XMS_ITS | Encounter Summary ---
:1945 Author Organization [facility] Address [address] [facility], [address] [place] [address] Care Team Providers Name Role Phone Lisa Sotelo MD Primary Care Provider Encounter Details Date Type Department Care Team Description 02/21/2018 Travel Social History Tobacco Use Types Packs/Day [...] on filedocumented in this encounter Care Teams [employer] Relationship Specialty Start Date End Date Lisa Sotelo MD PCP - General Family Medicine 08/19/16 03/01/18 [address] [place] [address] documented as of this encounter
--- OUTSIDE RECORDS SUMMARY | 2021-07-22 20:19 | XMS_ITS | Encounter Summary ---
:1945 Author Organization [facility] Address [address] [facility], [address] [place] [address] Care Team Providers Name Role Phone Lisa Sotelo MD Primary Care Provider Encounter Details Date Type Department Care Team Description 07/08/2017 Scan Document - View [facility] Lisa Sotelo, in Chart Practice [address] [place], [place] [id number] [place], [place] [phone] Social History Tobacco Use Types Packs/Day Years [...] on filedocumented in this encounter Care Teams Child Care Relationship Specialty Start Date End Date Lisa Sotelo MD PCP - General Family Medicine 08/19/16 03/01/[address] [place] [id number] documented as of this encounter
--- OUTSIDE RECORDS SUMMARY | 2021-07-22 20:19 | XMS_ITS | Encounter Summary ---
:1945 Author Organization [facility] Address [address] [facility], [address] [place] [address] Care Team Providers Name Role Phone Lisa Sotelo MD Primary Care Provider Reason for Visit Reason Comments Follow-up on medication Encounter Details Date Type Department Care Team Description 03/10/2017 Office Visit [facility] actLisa Segundo MD Sleep disorder [address] [place] [address] [place] [address] [phone] (Wo rk) Social History Tobacco Use Types Packs/Day Years Used Date Former Smoker Smokeless Tobacco: Never Used Alcohol Use Standard Drinks/Week Comments Defer 0 (1 standard drink = 0.6 oz pure alcoho l) Sex Assigned at Date Recorded Female 04/12/2019 2:19 PM EST documented as of this encounter Last Filed Vital Signs Vital Sign Reading Time Taken Comments Blood Pressure 110/70 03/10/2017 3:22 PM EST Pulse 60 03/10/2017 3:22 PM EST Temperature 37.1 ??C (98.8 ??F) 03/10/2017 3:22 PM EST Respiratory Rate - - Oxygen Saturation 97% 03/10/2017 3:22 PM EST Inhaled Oxygen Concentration - - Weight 61.7 kg (136 lb) 03/10/2017 3:22 PM EST Height 170.8 cm (5' 7.25) 03/10/2017 3:22 PM EST Body Mass Index 21.14 03/10/2017 3:22 PM EST documented in this encounter Progress Notes Lisa Sotelo - 03/10/2017 3:00 PM EST She still is having trouble sleeping through the night--did take Mirtazapine for a week, can't remember how it affected her. When she ran out, took 's Doxepin 10 mg, doesn't think it kept her asleep all night. She asks about trying medical MJ. Also is out of Klonopin, which she takes in tiny doses (1/4 of 0.5 mg pill) if she wakes up and starts getting anxious. Her son is still living with them. I think medical MJ may be a good thing for her to relax enough to sleep longer and encouraged her tolook into it. For now, try Mirtazapine again to know how well it helps. She has appt in a week for her physical documented in this encounter Plan of Treatment Not on filedocumented as of this encounter Visit Diagnoses Diagnosis Sleep disorder Unspecified sleep disturbance documented in this encounter Care Teams Service Tech/Welder Relationship Specialty Start Date End Date Lisa Sotelo MD PCP - General Family Medicine 08/19/16 03/01/[address] [place] [address] documented as of this encounter
--- OUTSIDE RECORDS SUMMARY | 2021-07-22 20:19 | XMS_ITS | Encounter Summary ---
:1945 Author Organization [facility] Address [address] [facility], [address] [place] [address] Care Team Providers Name Role Phone Lisa Soetlo MD Primary Care Provider Encounter Details Date Type Department Care Team Description 01/30/2018 Travel Social History Tobacco Use Types Packs/Day [...] on filedocumented in this encounter Care Teams Protective Signal Operations Supervisor Relationship Specialty Start Date End Date Lisa Sotelo MD PCP - General Family Medicine 08/19/16 03/01/18 [address] [place] [address] documented as of this encounter
--- OUTSIDE RECORDS SUMMARY | 2021-07-22 20:19 | XMS_ITS | Encounter Summary ---
:1945 Author Organization [facility] Address [address] [facility], [address] [place] [address] Care Team Providers Name Role Phone Laurie Elias NP Primary Care Provider Reason for Referral Diagnostic Imaging (Routine) - Closed Specialty Diagnoses / Procedures Referred By Contact Refer red To Contact Radiology Diagnoses Diverticulitis Lower abdominal pain Laurie Elias NP Procedures CT Abdomen Pelvis with Contrast [address] [place] [address] Referral ID Status Reason Start Date Expiration Date Visits Requ ested Visits Authorized [id number] Closed 03/02/2018 03/02/2019 1 1 Encounter Details Date Type Department Care Team Description 03/02/2018 Office Visit Heather G[facility]mezul itis (Primary Dx); Practice ANN Sullivan Lower abdominal pain [address] [place] [address] [place] [phone] [place] [address] Social History Tobacco Use Types Packs/Day Years Used Date Former Smoker Smokeless Tobacco: Never Used Alcohol Use Standard Drinks/Week Comments Defer 0 (1 standard drink = 0.6 oz pure alcoho l) Sex Assigned at Date Recorded Female 04/12/2019 2:19 PM EST documented as of this encounter Last Filed Vital Signs Vital Sign Reading Time Taken Comments Blood Pressure 100/60 03/02/2018 2:43 PM EST Pulse 82 03/02/2018 2:43 PM EST Temperature 37.3 ??C (99.1 ??F) 03/02/2018 2:43 PM EST Respiratory Rate - - Oxygen Saturation 98% 03/02/2018 2:43 PM EST Inhaled Oxygen Concentration - - Weight 57.9 kg (127 lb 9.6 oz) 03/02/2018 2:43 PM EST Height - - Body Mass Index 19.98 11/01/2017 10:11 AM EDT documented in this encounter Progress Notes Laurie Elias, ANN - 03/02/2018 2:30 PM EST Subjective Patient ID: Molly Rios is a 73 y.o. female. HPI Molly Rios is a 73 year old female with PMHx known severe sigmoid diverticulosis ([id number]) who presents for same-day visit. She believes she may be having a flare-up of diverticulitis. She had similar symptoms in 12/2017, and she improved with a course of augmentin and bowel rest. Since that time, she has been generally well. She followed-up with Dr. Gorman at [facility] 01/26/[address] if symptoms reoccur. She started to experience a new bout of symptoms yesterday. She developed a fever (Tmax 100.8 F) after she received the flu show yesterday, so she assumed the fever was related. However, she proceeded to develop abdominal cramping and discomfort, decreased appetite, and constipation. She states this feels exactly like her previous flare-up in 12/2017. She also feels quite constipated and hasn't had abowel movement in about 2 days. She did take tony seeds yesterday and believes she may have dumped too much into the glass. She's not sure if this is related. She typically drinks miralax and tony seeds every morning, although she hasn't had any today. She has taken 2 senna pills to attempt to help with her constipation. She denies any blood in the stools, tarry stools, hematochezia, N/V, diarrhea, or dysuria. Review of Systems See HPI Objective Physical Exam Constitutional: She is oriented to person, place, and time. She appears well- developed and well-nourished. No distress. Well-appearing overall, NAD Pleasantly conversant HENT: Head: Normocephalic and atraumatic. Eyes: Pupils are equal, round, and reactive to light. Neck: Normal range of motion. Neck supple. Cardiovascular: Normal rate and regular rhythm. Pulmonary/Chest: Effort normal and breath sounds normal. Abdominal: Soft. Normal appearance and bowel sounds are normal. There is tenderness in the suprapubic area and left lower quadrant. There is no rigidity, no rebound, no guarding, no CVA tenderness, no tenderness at McBurney's point and negative Weiss's sign. Musculoskeletal: Normal range of motion. Neurological: She is alert and oriented to person, place, and time. Skin: Skin is warm and dry. She is not diaphoretic. Assessment/Plan Diagnoses and all orders for this visit: Diverticulitis For likely diverticulitis flare, RX augmentin TID x 7 days. Take with food, probiotic in between doses. Clear fluids only x 48-[address] abdomen. BMP and CBC with diff today. Reviewed strict ED precautions (no improvement, worsening, fever >102, any new symptoms that concern her). She verbalizes understanding of the plan and denies further questions. F/u CT abdomen results. - Basic metabolic panel; Future - [facility] - CBC (with Differential and Platelets); Future - amoxicillin-pot clavulanate (AUGMENTIN) 875-125 mg per tablet; Take 1 tablet by mouth 3 (three) times a day for 7 days. Take around food. - CT Abdomen Pelvis with Contrast; Future Lower abdominal pain - CT Abdomen Pelvis with Contrast; Future documented in this encounter Plan of Treatment Not on filedocumented as of this encounter Procedures Procedure Name Priority Date/Time Associated Diagnosis Comme nts [facility] - CBC (INCLUDES Routine 03/02/2018 3:10 Diverticulitis R esults for this DIFFERENTIAL AND PM EST procedure a re in PLATELETS) the results section. BASIC METABOLIC PANEL Routine 03/02/2018 3:10 Diverticulitis R esults for this PM EST procedure are i n the results section. documented in this encounter Results CT Abdomen Pelvis with Contrast (03/03/2018 6:18 PM EST) Anatomical Region Laterality Modality Abdomen, Pelvis N/A Computed Tomography Specimen (Source) Anatomical Collection Method Collection Time Re ceived Time Location / / Volume Laterality 03/03/2018 5:30 PM EST Impressions 03/03/2018 10:05 PM EST 1. ??Thickened segment of sigmoid colon consistent with acute uncomplicated diverticulitis. 2. ??Fluid-filled loops of small and lar ge bowel, concerning for possible ileus or superimposed enteritis. ??No evidence of obstruction. Results of the study were communicated to and acknowledged by Dr. Rodriguez At 9:25 pm on 03/03/2018. I, the attending physician, attest that I have performed and/or supervised the resident for the dueñas and critical components of this procedure. I have personally reviewed th e images pertinent to this examination and agree with the interpret ation. Dictated: 03/03/2018 10:05 PM Report ID: [id number] Report signed in external system at 03/03 22:05 Reported By: Andi Hartley M.D. (residehillary t) ([id number]) Signed By: Gt Ledezma M.D. (LAURA D) Narrative 03/03/2018 10:05 PM EST RESPONSIBLE LICENSED PRACTICAL NURSE: Gt Ledezma M.D. EXAMINATION: CT ABDOMEN PELVIS W CONTRAST CLINICAL INDICATION: Abdominal pain, history of diverticulosi s. TECHNIQUE: Continuous axial images were obtained th rough the abdomen and the pelvis on a multidetector CT scanner with oral and intravenous contrast. 2-D reconstructions were generated and reviewed. Orders: The patient received 100 mL of O mnipaque 350. Dose reduction technique: iterative yoan nstruction. COMPARISON: None. FINDINGS: CT INFERIOR CHEST There are centrilobular emphysematous ch anges within the lung bases. ??The lung bases are clear without focal consolidation. There are no pleural effusions. ??The heart is normal in size without pericardial effusion. There is a large hiatal hernia containin g enteric contrast. ABDOMEN CT Liver: The hepatic parenchyma is normal. Gallbladder / bile ducts: Normal. There are no radioopaque gallstones. There is no intrahepatic or extrahepatic biliary duct dilatation. Pancreas / pancreatic duct: Normal. ??Th ere is no pancreatic duct dilatation. Spleen: Normal. Adrenal glands: Normal. Kidneys / ureters: Normal. ??There is no hydronephrosis or hydroureter. Gastrointestinal Tract: The stomach is normal in contour. ??Ther e is a segment of sigmoid colon with mucosal thickening in a background of numerous diverticula. ??There also fluid- filled loops of large bowel containing air-flu id levels and prominent distal small bow el loops. ??There is secondary mixing artifact of stool and fluid within the cecum and large bowel. ??There are no discrete fluid collections to suggest abscess. ??There is no extraluminal air. Vascular: There is normal opacification of the aorta and its branches. Retroperitoneum / mesentery / peritoneal cavity: There is no mesenteric or retroperitoneal lymphadenopathy. ??There is no ascites or pneumoperitoneum. PELVIS CT Urinary bladder: Normal for technique. Reproductive organs: Normal. ??There are no adnexal masses. SOFT TISSUES AND BONES Soft tissues are normal. There are degen erative changes of the lumbar spine. ??There are no destructive lesions within the bones. Procedure Note Gt Ledezma MD - 03/03/2018For matting of this note might be different from the original. RESPONSIBLE LICENSED PRACTICAL NURSE: Gt Ledezma M.D. EXAMINATION: CT ABDOMEN PELVIS W CONTRAST CLINICAL INDICATION: Abdominal pain, history of diverticulosi s. TECHNIQUE: Continuous axial images were obtained th rough the abdomen and the pelvis on a multidetector CT scanner with oral and intravenous contrast. 2-D reconstructions were generated and reviewed. Orders: The patient received 100 mL of O mnipaque 350. Dose reduction technique: iterative yoan nstruction. COMPARISON: None. FINDINGS: CT INFERIOR CHEST There are centrilobular emphysematous ch anges within the lung bases. The lung bases are clear without focal consolidation. There are no pleural effusions. The heart is normal in size without pericardial effusion. There is a large hiatal hernia containin g enteric contrast. ABDOMEN CT Liver: The hepatic parenchyma is normal. Gallbladder / bile ducts: Normal. There are no radioopaque gallstones. There is no intrahepatic or extrahepatic biliary duct dilatation. Pancreas / pancreatic duct: Normal. Ther e is no pancreatic duct dilatation. Spleen: Normal. Adrenal glands: Normal. Kidneys / ureters: Normal. There is no h ydronephrosis or hydroureter. Gastrointestinal Tract: The stomach is normal in contour. There is a segment of sigmoid colon with mucosal thickening in a background of numerous diverticula. There also fluid- filled loops of large bowel containing air-fluid levels and prominent distal small bowel loops. Ther e is secondary mixing artifact of stool and fluid within the cecum and large bowel. There are no discrete fluid collections to suggest abscess. There is no extraluminal air. Vascular: There is normal opacification of the aorta and its branches. Retroperitoneum / mesentery / peritoneal cavity: There is no mesenteric or retroperitoneal lymphadenopathy. There is no ascites or pneumoperitoneum. PELVIS CT Urinary bladder: Normal for technique. Reproductive organs: Normal. There are n o adnexal masses. SOFT TISSUES AND BONES Soft tissues are normal. There are degen erative changes of the lumbar spine. There are no destructive lesions within the bones. IMPRESSION: 1. Thickened segment of sigmoid colon co nsistent with acute uncomplicated diverticulitis. 2. Fluid-filled loops of small and large bowel, concerning for possible ileus or superimposed enteritis. No evidence of obstruction. Results of the study were communicated to and acknowledged by Dr. Rodriguez At 9:25 pm on 03/03/2018. I, the attending physician, attest that I have performed and/or supervised the resident for the dueñas and critical components of this procedure. I have personally reviewed [facility] images pertinent to this examination and agree with the interpret ation. Dictated: 03/03/2018 10:05 PM Report ID: [id number] Report signed in external system at 03/03 22:05 Reported By: Andi Hartley M.D. ([facility] ) ([id number]) Signed By: Gt Ledezma M.D. (LAURA Betancur) Laurie Elias NP IMG CT PROCEDURES (ABNORMAL) [facility] - CBC (with Differential and Platelets) (03/02/2018 3:10 PM EST) [facility] Method Time Signature White Blood 19.4 (H) 3.8 - [facility] Count 10.8 [facility] [place] [facility] Red Blood Count 4.52 3.80 - [facility] 5.10 [facility]ostics Million[facility] [place] [facility] Hemoglobin 14.2 11.7 - [facility] 15.5 g/dL [facility] Hematocrit 41.5 35.0 - [facility] 45.0 % [facility] [place] [facility] MCV 91.8 80.0 - [facility] 100.0 fL [facility] [place] [facility] MCH 31.4 27.0 - [facility] 33.0 pg [facility] [place] [facility] MCHC 34.2 32.0 - [facility] 36.0 g/dL [facility] [place] [facility] [facility] MRDW 13.0 11.0 - [facility] 15.0 % [facility] [place] [facility] Platelet count 276 140 - 400 [facility]/ [facility] [place] [facility] [facility] MPV 10.1 7.5 - [facility] 12.5 fL [facility] [place] [facility] [facility] Absolute 17,324 1,500 - [facility] Neutrophil (H) 7,800 Diagnostics Count cells/uL [place] [employer] [facility] Lymphosytes 873 850 - [facility] absolute 3,900 Diagnostics cells/uL [place] [facility] [facility] Absolute 1,125 (H) 200 - 950 [facility] Monocyte count cells/uL [facility] [place] [facility] [facility] Absolute 19 15 - 500 [facility] Eosinophil cells/uL Diagnostics count [place] [facility] [facility] Lymphocyte 58 0 - 200 [facility] cells/uL [facility] [place] [facility] [facility] Neutrophils 89.3 % [facility] Lymphocyte 4.5 % [facility] [place] [facility] [facility] Monocytes 5.8 % [facility] [place] [employer] [facility] Eosinophil 0.1 % [facility] [place] [employer] [facility] Basophil 0.3 % [facility] [place] [employer] [facility] Specimen Anatomical Collection Method Collection Time Receive d Time (Source) Location / / Volume Laterality Blood Venous blood / 03/02/2018 3:10 PM 019 Unknown EST 10:39 PM EST Laurie Elias NP LAB BLOOD ORDERABLES Performing Organization Address City/State/ZIP Code Phon e Number [facility] [address] [phone] [place] [address] [address] [employer] [address] [place] [address] [employer] [address] [phone] Diagnost (ABNORMAL) Basic metabolic panel (03/02/2018 3:10 PM EST) P athologist Signature Glucose 106 (H) 65 - 99 [facility] mg/dL [place] [employer] Comment: ? Fasting reference interv al For someone without known diabetes, a gl ucose value between 100 and 125 mg/dL is consistent with prediabetes and should be confirmed with a follow-up test. Bun 11 7 - 25 mg/dL [employer] [facility] [place] [employer] Creatinine, Ser 0.67 0.60 - 0.93 mg/dL [facility] [place] [employer] Comment: For patients >49 years of age, the refer ence limit for Creatinine is approximately 13% high er for people identified as -Thai. eGFR NON-AFR. 88 > OR = 60 mL/min/1.73m2 Qu est Diagnostics [facility] eGFR 102 > OR = 60 mL/min/1.73m2 Que st [facility] [employer] BUN/Creatinine NOT APPLICABLE 6 - 22 (calc) [facility] [place] [facility] Sodium 138 135 - 146 mmol/L [facility] [place] [facility] Potassium 4.0 3.5 - 5.3 mmol/L [facility] [place] [facility] Chloride 102 98 - 110 mmol/L [facility] [place] [facility] CO2 28 20 - 32 mmol/L [facility] [place] [facility] Calcium 9.9 8.6 - 10.4 mg/dL [facility] [place] [employer] Specimen Anatomical Collection Method Collection Time Receive d Time (Source) Location / / Volume Laterality Blood Venous blood / 03/02/2018 3:10 PM 019 Unknown EST 10:39 PM EST Laurie Elias NP LAB BLOOD ORDERABLES Performing Organization Address City/State/ZIP Code Phon e Number [facility] [address] [phone] [place] [address] [address] [employer] [address] [place] [address], [facility] [employer] [address] [phone] Diagnost documented in this encounter Visit Diagnoses Diagnosis Diverticulitis - Primary Diverticulitis of colon (without mention of hemorrhage) Lower abdominal pain Abdominal pain, other specified site Diverticulitis Diverticulitis of colon (without mention of hemorrhage) Lower abdominal pain Abdominal pain, other specified site documented in this encounter Care Teams Windows Server Architect Relationship Specialty Start Date End Date Laurie Elias NP PCP - General Family Medicine 03/02/18 11/19/19 [address] [place] [address] documented as of this encounter
--- OUTSIDE RECORDS SUMMARY | 2021-07-22 20:19 | XMS_ITS | Encounter Summary ---
:1945 Author Organization [facility] Address [address] [facility], [address] [place] [address] Care Team Providers Name Role Phone Lisa Sotelo MD Primary Care Provider Encounter Details Date Type Department Care Team Description 10/11/2016 Scan Document - View [facility] Lisa Sotelo, in Chart Practice [address] [place] [address] [place], [place] [phone] Social History Tobacco Use Types Packs/Day Years Used Date Former Smoker Sex Assigned at Date Recorded Female 04/12/2019 2:19 PM EST documented as of this encounter Plan of Treatment Not on filedocumented as of this encounter Visit Diagnoses Not on filedocumented in this encounter Care Teams Time Broker Relationship Specialty Start Date End Date Lisa Sotelo MD PCP - General Family Medicine 08/19/16 03/01/[address] [place] [address] documented as of this encounter
--- OUTSIDE RECORDS SUMMARY | 2021-07-22 20:19 | XMS_ITS | Encounter Summary ---
:1945 Author Organization [facility] Address [address] [facility], [address] [place] [address] Care Team Providers Name Role Phone Lisa Sotelo MD Primary Care Provider Reason for Referral Diagnostic Imaging (Routine) - Closed Specialty Diagnoses / Procedures Referred By Contact Refer red To Contact Diagnoses Chronic pain of left knee Nawaf Jason MD Procedures X-ray Knee 3 Views Left [address] [place] [address] Referral ID Status Reason Start Date Expiration Date Visits Requ ested Visits Authorized [id number] Closed 06/13/2017 06/13/2018 1 1 Reason for Visit Diagnostic Imaging (Routine) - Closed Specialty Diagnoses / Procedures Referred By Contact Refer red To Contact Diagnoses Chronic pain of left knee Nawaf Jason MD Procedures X-ray Knee 3 Views Left [address] [place] [address] Referral ID Status Reason Start Date Expiration Date Visits Requ ested Visits Authorized [id number] Closed 06/13/2017 06/13/2018 1 1 Encounter Details Date Type Department Care Team Description 06/20/2017 Hospital Encounter [place] Nawaf Jason Chroni c pain of left Hospital X-ray at MD [place] knee [address] [place] [phone] Social History Tobacco Use Types Packs/Day Years [...] mg capsule TURMERIC (CURCUMIN MISC) daily. 0 aspirin 81 mg EC tablet Take 81 mg by mouth 0 01/22/2019 daily. ASTRAGALUS ROOT EXTRACT, 0 03/22/2018 BULK, MISC cholecalciferol, vitamin Take 1,000 Units by 0 01/22/2019 D3, (VITAMIN D3) 1,000 mouth daily. unit capsule doxepin (SINEquan) 10 mg Take 1 capsule (10 30 capsule 2 11/01/2017 capsule mg total) by mouth nightly. documented as of this encounter Plan of Treatment Not on filedocumented as of this encounter Procedures Procedure Name Priority Date/Time Associated Diagnosis Comme nts XR KNEE 3 VW LEFT Routine 06/20/2017 4:14 PM Chronic pain of l eft Results for this EDT knee procedure are i n the results section. documented in this encounter Results X-ray Knee 3 Views Left (06/20/2017 4:14 PM EDT) Anatomical Region Laterality Modality Knee Left Digital Radiography Specimen (Source) Anatomical Collection Method Collection Time Re ceived Time Location / / Volume Laterality 06/20/2017 4:30 PM EDT Impressions 06/20/2017 4:16 PM EDT Degenerative change. Dictated: 06/20/2017 4:16 PM Report ID: [id number] Report signed in external system at 06/20 16:16 Reported By: Wale Faustin M.D. (TAMICA P) Signed By: Wale Faustin M.D. (JACQUELINE) Narrative 06/20/2017 4:16 PM EDT RESPONSIBLE VISUAL COORDINATOR: Wale Faustin M.D. EXAMINATION: XR KNEE 3 [...] might be different from the original. RESPONSIBLE VISUAL COORDINATOR: Wale Faustin M.D. EXAMINATION: XR KNEE 3 [...] change. Dictated: 06/20/2017 4:16 PM Report ID: [id number] Report signed in external system at 06/20 16:16 Reported By: Wale Faustin M.D. (TAMICA P) Signed By: Wale Faustin M.D. (TAMICAP) Nawaf Jason MD IMG XR PROCEDURES documented in this encounter Visit Diagnoses Diagnosis Chronic pain of left knee documented in this encounter Care Teams French Pastry Cook Relationship Specialty Start Date End Date Lisa Sotelo MD PCP - General Family Medicine 08/19/16 03/01/18 [address] [place] [address] documented as of this encounter
--- OUTSIDE RECORDS SUMMARY | 2021-07-22 20:19 | XMS_ITS | Encounter Summary ---
:1945 Author Organization [facility] Address [address] [facility], [address] [place] [address] Care Team Providers Name Role Phone Lisa Sotelo MD Primary Care Provider Encounter Details Date Type Department Care Team Description 09/20/[address] [facility] Matthew William, Plantar fasciitis; [address] ANN Krishnamurthy Osteoporosis; [place] [address] [place] [address] Oral candidiasis [phone] [place] [address] (Wo rk) Social History Tobacco Use Types Packs/Day Years Used Date Former Smoker Sex Assigned at Date Recorded Female 04/12/2019 2:19 PM EST documented as of this encounter Plan of Treatment Not on filedocumented as of this encounter Visit Diagnoses Diagnosis Plantar fasciitis Plantar fascial fibromatosis Osteoporosis Unspecified osteoporosis Oral candidiasis Candidiasis of mouth documented in this encounter Care Teams Machine Stuffer Relationship Specialty Start Date End Date Lisa Sotelo MD PCP - General Family Medicine 08/19/16 03/01/18 [address] [place] [address] documented as of this encounter
--- OUTSIDE RECORDS SUMMARY | 2021-07-22 20:19 | XMS_ITS | Encounter Summary ---
:1945 Author Organization [facility] Address [address] [facility], [address] [place] [address] Care Team Providers Name Role Phone Lisa Sotelo MD Primary Care Provider Encounter Details Date Type Department Care Team Description 06/06/2017 Orders Only [facility] Pr actice Lisa Sotelo MD [id number] [place] [address] [phone] (Wo rk) Social History Tobacco Use Types [...] on filedocumented in this encounter Care Teams Visual Education Teacher Relationship Specialty Start Date End Date Lisa Sotelo MD PCP - General Family Medicine 08/19/16 03/01/[address] [place] [id number] documented as of this encounter
--- OUTSIDE RECORDS SUMMARY | 2021-07-22 20:19 | XMS_ITS | Encounter Summary ---
:1945 Author Organization [facility] Address [address] [facility], [address] [place] [address] Care Team Providers Name Role Phone Lisa Sotelo MD Primary Care Provider Reason for Referral Rehab (Routine) - Closed Specialty Diagnoses / Procedures Referred By Contact Refer red To Contact Physical Therapy Diagnoses Lumbar facet arthropathy Nawaf Jason MD [address] [place] [address] Referral ID Status Reason Start Date Expiration Date Visits V isits Requested Authorized [id number] Closed Specialty 06/27/2017 06/27/2018 1 1 Services Required Reason for Visit Specialty (Routine) - Closed Specialty Diagnoses / Referred By Contact Referred To Contact Procedures Physical Medicine and Diagnoses MRI FOLLOW-UP Lisa Sotelo MD Mostoufi, Seyed A, Rehabilitation Procedures FOLLOW UP [facility] Parul [place] [address] [address] [place] [address] Fax: Referral ID Status Reason Start Date Expiration Date Visits Requ ested Visits Authorized [id number] Closed 06/06/2017 06/06/2018 3 3 Encounter Details Date Type Department Care Team Description 06/27/2017 Office Visit [place] Mostoufi, Nawaf A, Radiculop athy, lumbar region (Primary Dx); Physiatry, [facility] Lumbar facet arthropathy ([facility]); [address] [facility] [address] [facility] It band syndrome, left; [place] [address] [place], [place] Lateral knee pain, left [phone] Social History Tobacco Use Types Packs/Day Years [...] - - Weight 59.9 kg (132 lb) 06/27/2017 10:19 AM EDT Height 170.2 cm (5' 7) 06/27/2017 10:19 AM EDT Body Mass Index 20.67 06/27/2017 10:19 AM EDT documented in this encounter Patient Instructions Patient InstructionsSeyed Roxana Jason MD - 06/27/2017 10:15 AM EDT Return visit after PT documented in this encounter Progress Notes Nawaf Jason MD - 06/27/2017 10:15 AM EDT Images from the original note were not included. [facility] [place] [facility]: [address] [facility] Center: [address] [facility]: [address] [facility] T: [phone] F:[phone] [facility] Patient: Molly Rios : 1945 Date of visit: 07/14/17 Reason for PM&R visit : PM&R visit after Imaging Assessment and Plan : Molly Rios is a 72 y.o. female Presents for physiatric follow-up after recent imaging with following assessment and plans: 1. Radiculopathy, lumbar region Start physical therapy program return visit after the PT is completed. Consideration for lumbar DEBBI 2. It band syndrome, left Topical treatment Education and counseling : ([email or web address]) Education: in person education and counseling on Radiculopathy, lumbar region [M54.16] and proposed treatments done at the time of visit. Patient was directed to our web page for further self directed education on this topic and evidence based treatments. More that 50% of today's visit was spent in counseling and coordination of care. CC: Lisa Sotelo MD Interval history: Dear Dr Lisa Sotelo MD, Ms. Molly Rios was seen in follow-up after obtaining advanced imaging ,as part of diagnostic workup for Radiculopathy, lumbar region [M54.16]. Molly returns for follow-up and review of her lumbar MRI. She came in with a complaint of radicular back discomfort. MRI demonstrates a moderate right L2-L3 neuroforaminal impingement, a left L5 nerve root impingement and the right L5 nerve root impingement. There is no yasmeen spinal stenosis but there is foraminal impingement resulting in nerve root impingement. She also has age-appropriate facetarthropathy which could be the source of her back discomfort. The proximal left knee symptom likely related to IT band tendinopathy which could be treated separately. At today's visit we discussed options for treatment and we opted to consider a course of physical therapy. We talked about interventions that can help back and leg discomfort. We will revisit these issues again after the course of physical therapy is completed. Recent Imagin, [facility] Available Films as well as results reviewed with Molly. Results for orders placed in visit on [...] heights of the lumbar vertebrae are preserved. - Ad Operations Intern: PANKAJ Crack Off Person: [email or web address] Results for orders placed during the hospital encounter of 06/22/17 MRI Lumbar Spine without Contrast Narrative There are scattered Schmorl's nodes most marked at the superior endplate of L3, associated with endplate marrow changes at L2-L3. Lesser degree of endplate marrow changes are noted at L1-L2, L3-L4,, and L4-L5. Schmorl's nodes associated with endplate marrow changes are also seen of the imaged lower thoracic spine. Intervertebral discs: There is loss of T2 signal intensity of the discs, consistent with disc desiccation. Moderate loss of disc height is noted at L4-L5 and there is mild loss of disc height at L3-L4 and L5-S1. Conus medullaris: Conus is normal in configuration, signal characteristics, terminating at approximately the level of L1-L2. Significant by levels: L1-2: There is a mild broad-based disc bulge accompanied by minor facet/ ligamentum flavum hypertrophy. There is no significant narrowing of the spinal canal, or neural foramina. L2-3: There is a broad-based disc bulge and facet/ ligamentum flavum hypertrophy, impressing the posterolateral aspect of the thecal sac, resulting in borderline narrowing of the spinal canal, but without yasmeen spinal canal stenosis. Bilateral disc protrusions result in [id number]-gqkrirzx right l2-3 and mild left neural foraminal narrowing, but without contact of both exiting L2 nerve roots. L3-4: There is a mild broad-based disc bulge with slight flattening of the ventral thecal sac. Superimposed is a sellar/ligamentum flavum hypertrophy, but without significant narrowing of the spinal canal. There is mild bilateral neural foraminal narrowing. Molly returns for follow-up and review of her MRI which was just L4-5: There is a broad-based disc bulge [...] foramina and contact of the exiting right [id number] root. There is lxjk-uy-gigfgfjg encroachment of the left neural foramina, but without contact o f the exiting left L5 nerve root. There is no significant narrowing of the spinal canal. Other: Fatty replacement of the paraspinous musculature is noted at L4-L5 and L5-S1. Pelvic viscera are not evaluated. Sigmoid diverticulosis is noted. There is trace free pelvic fluid. Impression 1. At L2-L3, borderline narrowing of the spinal canal secondary to disc bulge, facet andligamentum flavum hypertrophy. Bilateral disc protrusions result in dmml-mh-rdrsowlr right and mild left neural foraminal narrowing, but without significant mass effect on the exiting L2 nerve roots. 2. At L5-S1, moderate encroachment of the right neural foramina and contact of the exiting right L5 nerve root. 3. At L4-L5, slight encroachment of the left subarticular zone, likely to contact the left central L5 nerve root. 4. Sigmoid diverticulosis. Physicial Exam: Vitals: Ht 1.702 m (5' 7) Wt 132 lb (59.9 kg) BMI 20.67 kg/m2 Consitutional: Ms. Barnes is A/Ox 3. no medical distress Neurologic: Normal mentation and speech. Skin: No rash or infection in the examined area. Respiratory: Non labored breathing Cardiopulmunary: No visible cyanosis or clubbing. Warm extremities Ear and Nose: Able to hear me well Eyes: Can see me well Today's Orders : Orders Placed This Encounter Procedures ??? Prescription to Physical Therapy LOWER BACK PAIN .FACET ARTHROPATHY. PATELOFEMORAL SYNDROME OARASPINAL MUSCLE ATROPHY Pt 8 VISITS [facility] PT, [employer] Standing Status: Future Standing Expiration Date: 12/28/2017 Referral Priority: Routine Referral Type: Rehab Referral Reason: Specialty Services Required Requested Specialty: Physical Therapy Number of Visits Requested: 1 Data review : Chart Update: Chart updated on 07/14/2017 based on the information provided by Ms. [...] , please see patient chart on our EMR.Referring physician records and available PT notes obtained & reviewed Current Problem List: Past Medical History: [...] by mouth daily., Disp: , Rfl: ??? CHOLECALCIFEROL, VITAMIN D3, ORAL, Take by mouth., Disp: , Rfl: ??? diclofenac sodium 3 % gel, , Disp: , Rfl: ??? doxepin (SINEquan) 10 mg capsule, Take 1 capsule (10 mg total) by mouth nightly., Disp: 30 capsule, Rfl: 2 ??? omega-3 fatty acids-fish oil (FISH OIL) 300-1,000 mg capsule, Take 1 g by mouth daily., Disp: , Rfl: ??? TURMERIC (CURCUMIN MISC), , Disp: , Rfl: Current Allergies: Hydrocodone-acetaminophen; Oxycodone; and Opioids - morphine analogues Review of Systems: 10 system reviewed on 07/14/2017 with Ms. Barnes. Positive systems are outlined in history of present illness. All other systems are negative at a time of visit. Lab reviewed: Lab Results Component Value Date CREATININE 0.71 03/18/2017 END OF NOTE.This note was dictated using voice recognition software and has been proofread. Please excuse any voice recognition errors that might still exist. documented in this encounter Plan of Treatment Scheduled Referrals Name Type Priority Associated Order Schedule Diagnoses Prescription to Outpatient Routine Lumbar facet 1 Occurrence s Physical Therapy Referral arthropathy starting ([facility]) until 8 documented as of this encounter Visit Diagnoses Diagnosis Radiculopathy, lumbar region - Primary Thoracic or lumbosacral neuritis or radi culitis, unspecified Lumbar facet arthropathy Spondylosis of unspecified site without mention of myelopathy It band syndrome, left Lateral knee pain, left documented in this encounter Care Teams Customer Engagement Representative Relationship Specialty Start Date End Date Lisa Sotelo MD PCP - General Family Medicine 08/19/16 03/01/[address] [place] [address] documented as of this encounter
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
--- OUTSIDE RECORDS SUMMARY | 2021-07-22 20:19 | XMS_ITS | Encounter Summary ---
:1945 Author Organization [facility] Address [address] [facility] [facility], [address] [place] [address] Care Team Providers Name Role Phone Lisa Sotelo MD Primary Care Provider Reason for Referral (Routine) - Closed Specialty Diagnoses / Procedures Referred By Contact Refer red To Contact Diagnoses COPD (chronic obstructive pulmonary disease) ([facility]) Lisa Sotelo MD Procedures Pulmonary function test [address] [place] [address] Referral ID Status Reason Start Date Expiration Date Visits Requ ested Visits Authorized [id number] Closed 08/18/2016 02/14/2017 1 1 Reason for Visit (Routine) - Closed Specialty Diagnoses / Procedures Referred By Contact Refer red To Contact Diagnoses COPD (chronic obstructive pulmonary disease) ([facility]) Lisa Sotelo MD Procedures Pulmonary function test [address] [place] [address] Referral ID Status Reason Start Date Expiration Date Visits Requ ested Visits Authorized [id number] Closed 08/18/2016 02/14/2017 1 1 Encounter Details Date Type Department Care Team Description 11/23/2016 Hospital Encounter [place] JESSE Sotelo (chr onic Pulmonary Function MD Lisa obstructive pulmonary [address] disease) ([facility]) [place] [phone] (Work) Social History Tobacco Use Types Packs/Day Years Used Date Former Smoker Sex Assigned at Date Recorded Female 04/12/2019 2:19 PM EST documented as of this encounter Medications at Time of Discharge Medication Sig Dispensed Refills Start Date End Date b complex vitamins capsule Take 1 capsule by 0 mouth daily. calcium carbonate (CALCIUM Take 1 tablet by 0 500) 500 mg calcium (1,250 mouth daily. mg) chewable tablet omega-3 fatty acids-fish Take 1 g by mouth 0 oil (FISH OIL) 300-1,000 mg daily. capsule aspirin 81 mg EC tablet Take 81 mg by 0 01/22/2019 mouth daily. ASTRAGALUS ROOT EXTRACT, 0 03/22/2018 BULK, MISC cholecalciferol (VITAMIN Take 1,000 Units 0 01/17/2017 D3) 10,000 unit capsule by mouth daily. clonazePAM (KlonoPIN) 0.5 Take 1 tablet (0.5 7 tablet 0 12/06/2016 mg tablet mg total) by mouth daily as needed for anxiety. documented as of this encounter Plan of Treatment Not on filedocumented as of this encounter Procedures Procedure Name Priority Date/Time Associated Comments Diagnosis FULL PFT WITH Routine 11/23/2016 10:42 COPD (chronic Results f or this BRONCHODILATORS AM EDT obstructive procedure ar e in pulmonary disease) the resul ts ([facility]) section. documented in this encounter Results FULL PFT WITH BRONCHODILATORS (11/23/2016 10:42 AM EDT) Specimen (Source) Anatomical Collection Method Collection Time Re ceived Time Location / / Volume Laterality 11/23/2016 9:56 AM EDT [facility] - 12/07/2016 2:27 PM EDT SPIROMETRY: FEV1/FVC is reduced. ??The flow volume loop is coved. ??This indicates obstruction, which is mild. ?? Bronchodilator response is not significant. LUNG VOLUMES: Normal. DIFFUSION CAPACITY: DLCO is mildly reduc ed. SUMMARY: 1. ??Mild obstruction, and mild diffusio n abnormality. ??No significant bronchodilator response. No prior data f or comparison. ?? Please click on the hyperlink below for full test data. Lisa Ashleigh MD PFT ORDERABLES Performing Organization Address City/State/ZIP Code Phon e Number [facility] [address] [place] [address] documented in this encounter Visit Diagnoses Diagnosis COPD (chronic obstructive pulmonary dise ase) ([facility]) Chronic airway obstruction, not elsewher e classified documented in this encounter Care Teams Technology Consultant Relationship Specialty Start Date End Date Lisa Sotelo MD PCP - General Family Medicine 08/19/16 03/01/18 [address] [place] [phone] documented as of this encounter
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
--- OUTSIDE RECORDS SUMMARY | 2021-07-22 20:19 | XMS_ITS | Encounter Summary ---
:1945 Author Organization [facility] Address [address] [facility], [address] [place] [address] Care Team Providers Name Role Phone Lisa Sotelo MD Primary Care Provider Encounter Details Date Type Department Care Team Description 11/10/2017 Scan Document - View [facility] Lisa Sotelo in [facility] Practice [address] [place] [address] [place] [address] Social History Tobacco Use Types Packs/Day Years [...] on filedocumented in this encounter Care Teams Admitting Coordinator Relationship Specialty Start Date End Date Lisa Sotelo MD PCP - General Family Medicine 08/19/16 03/01/[address] [place] [address] documented as of this encounter
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
--- OUTSIDE RECORDS SUMMARY | 2021-07-22 20:19 | XMS_ITS | Encounter Summary ---
:1945 Author Organization [facility] Address [address] [facility], [address] [place] [address] Care Team Providers Name Role Phone Lisa Sotelo MD Primary Care Provider Encounter Details Date Type Department Care Team Description 06/27/2017 Scan Document - View [facility] Lisa Sotelo, in Chart Practice [address] [place], [place] [address] [place], [place] [phone] [address] Social History Tobacco Use Types Packs/Day Years [...] on filedocumented in this encounter Care Teams Estate Manager Relationship Specialty Start Date End Date Lisa Sotelo MD PCP - General Family Medicine 08/19/16 03/01/[address] [place] [address] documented as of this encounter
--- OUTSIDE RECORDS SUMMARY | 2021-07-22 20:19 | XMS_ITS | Encounter Summary ---
:1945 Author Organization [facility] Address [address] [facility], [address] [place] [address] Care Team Providers Name Role Phone Lisa Sotelo MD Primary Care Provider Encounter Details Date Type Department Care Team Description 01/25/2018 Travel Social History Tobacco Use Types Packs/Day [...] on filedocumented in this encounter Care Teams Ve Teacher Relationship Specialty Start Date End Date Lisa Sotelo MD PCP - General Family Medicine 08/19/16 03/01/18 [address] [place] [address] documented as of this encounter
--- OUTSIDE RECORDS SUMMARY | 2021-07-22 20:19 | XMS_ITS | Encounter Summary ---
:1945 Author Organization [facility] Address [address] [facility], [address] [place] [address] Care Team Providers Name Role Phone Lisa Sotelo MD Primary Care Provider Encounter Details Date Type Department Care Team Description [facility] [address] [place] [address], [address] [place] [address] [address] [facility] Ana M Bowen, [place] [address] Social History Tobacco Use Types Packs/Day Years Used Date Former Smoker Sex Assigned at Date Recorded Female 04/12/2019 2:19 PM EST documented as of this encounter Plan of Treatment Not on filedocumented as of this encounter Visit Diagnoses Not on filedocumented in this encounter Care Teams Statistical Typist Relationship Specialty Start Date End Date Lisa Sotelo MD PCP - General Family Medicine 08/19/16 03/01/[address] [place] [address] documented as of this encounter
--- OUTSIDE RECORDS SUMMARY | 2021-07-22 20:19 | XMS_ITS | Encounter Summary ---
:1945 Author Organization [facility] Address [address] [facility], [address] [place] [address] Care Team Providers Name Role Phone Lisa Sotelo MD Primary Care Provider Reason for Referral Diagnostic Imaging (Routine) - Closed Specialty Diagnoses / Procedures Referred By Contact Refer red To Contact Radiology Diagnoses Radiculopathy, lumbar region Nawaf Jason MD Procedures MRI Lumbar Spine without Contrast [address] [place] [address] Referral ID Status Reason Start Date Expiration Date Visits Requ ested Visits Authorized [id number] Closed 06/13/2017 06/13/2018 1 1 Reason for Visit Diagnostic Imaging (Routine) - Closed Specialty Diagnoses / Procedures Referred By Contact Refer red To Contact Radiology Diagnoses Radiculopathy, lumbar region Nawaf Jason MD Procedures MRI Lumbar Spine without Contrast [address] [place] [address] Referral ID Status Reason Start Date Expiration Date Visits Requ ested Visits Authorized [id number] Closed 06/13/2017 06/13/2018 1 1 Encounter Details Date Type Department Care Team Description 06/22/2017 Hospital Encounter [place] Nawaf Jason Radicu lopathy, [facility] ISADORA Schmidt MD lumbar region [address] [place] [address] [place] [phone] Social History Tobacco Use Types Packs/Day Years [...] Name Priority Date/Time Associated Diagnosis Comme nts MRI LUMBAR SPINE WO Routine 06/22/2017 10:08 AM Radiculopathy, Results for this CONTRAST EDT lumbar region procedure are in the results section. documented in this encounter Results MRI Lumbar Spine without [...] flavum hypertrophy. ??Bilateral disc protrusions result in plju-tv-yjykwthk right and mild left neural foraminal narrowing, [...] diverticulosis. Dictated: 06/22/2017 11:06 AM Report ID: [id number] Report signed in external system at 06/22 11:06 Reported By: Dsuty Norwood M.D. (NATALIA) Signed By: Dusty Norwood M.D. (NATALIA) Narrative 06/22/2017 11:06 AM EDT RESPONSIBLE EFFICIENCY ENGINEER: Dusty Norwood M.D. EXAMINATION: MRI LUMBAR SPINE [...] stenosis. ??Bila teral disc protrusions result in dvuc-uc-wxfhgpyz right and mild left neural foraminal narrowing, [...] exiting right L5 nerve root. ??There is curo-he-siuqngxc encroachment of the left neural foramina, but without contact of the exiting left L5 nerve root. ??There is no significant narrowing of the spinal canal. Other: Fatty replacement of the paraspin ous musculature is noted at L4-L5 and L5-S1. Pelvic viscera are not evaluated. ??Sigm oid diverticulosis is noted. ??There is trace free pelvic fluid. Procedure Note Dusty Norwood MD - 06/22/2017 RESPONSIBLE EFFICIENCY ENGINEER: Dusty Norwood M.D. EXAMINATION: MRI LUMBAR SPINE [...] stenosis. Bilateral disc pr otrusions result in becq-ya-osjqbsxw right and mild left neural foraminal narrowing, [...] exiting right L5 nerve root. There is sjru-aa-ehrepqmh encroachment o f the left neural foramina, [...] flavum hypertrophy. Bilateral disc protrusions result in lehl-rd-zldpumnd right and mild left neural foraminal narrowing, [...] diverticulosis. Dictated: 06/22/2017 11:06 AM Report ID: [id number] Report signed in external system at 06/22 11:06 Reported By: Dusty Norwood M.D. (NATALIA) Signed By: Dusty Norwood M.D. (NATALIA) Nawaf Jason MD IMG MRI PROCEDURES documented in this encounter Visit Diagnoses Diagnosis Radiculopathy, lumbar region Thoracic or lumbosacral neuritis or radi culitis, unspecified documented in this encounter Care Teams Oil Deliverer Relationship Specialty Start Date End Date Lisa Sotelo MD PCP - General Family Medicine 08/19/16 03/01/18 [address] [place] [address] documented as of this encounter
--- OUTSIDE RECORDS SUMMARY | 2021-07-22 20:19 | XMS_ITS | Encounter Summary ---
:1945 Author Organization [facility] Address [address] [facility], [address] [place] [address] Care Team Providers Name Role Phone Lisa Sotelo MD Primary Care Provider Encounter Details Date Type Department Care Team Description 02/01/2017 Orders Only [facility] actice Provider, MD Harsh [address] [place] [address] [phone] Social History Tobacco Use Types Packs/Day Years [...] Associated Diagnosis Comme nts SCAN DOC - MAMMOGRAM ORDER/RESULT Routine 02/01/2017 documented in this encounter Results SCAN DOC - MAMMOGRAM ORDER/RESULT (02/01/2017) Anatomical Region Laterality Modality Other Narrative This result has an attachment that is no t available. Harsh Provider SCANNED ORDERS documented in this encounter Visit Diagnoses Not on filedocumented in this encounter Care Teams Supervisor Mail Carriers Relationship Specialty Start Date End Date Lisa Sotelo MD PCP - General Family Medicine 08/19/16 03/01/[address] [place] [address] documented as of this encounter
--- OUTSIDE RECORDS SUMMARY | 2021-07-22 20:19 | XMS_ITS | Encounter Summary ---
:1945 Author Organization [facility] Address [address], [address] [place] [address] Care Team Providers Name Role Phone lEba Mariano MD Primary Care Provider Reason for Visit Reason Comments Test Follow-up Encounter Details Date Type Department Care Team Description 12/06/2016 Office Visit Elba Newton, Chronic obstructive pulmonary disease, unspecified COPD type (CMS/HCC) (Primary Dx); Practice MD Sleep disorder; [address]; [place] [address] [place] Other emphysema ([facility]) [phone] Social History Tobacco Use Types Packs/Day Years Used Date Former Smoker Smokeless Tobacco: Never Used Alcohol Use Standard Drinks/Week Comments Defer 0 (1 standard drink = 0.6 oz pure alcoho l) Sex Assigned at Date Recorded Female 04/12/2019 2:19 PM EST documented as of this encounter Last Filed Vital Signs Vital Sign Reading Time Taken Comments Blood Pressure 106/60 12/06/2016 10:45 AM EDT Pulse 73 12/06/2016 10:45 AM EDT Temperature 36.9 ??C (98.5 ??F) 12/06/2016 10:45 AM EDT Respiratory Rate - - Oxygen Saturation 98% 12/06/2016 10:45 AM EDT Inhaled Oxygen Concentration - - Weight 60.3 kg (133 lb) 12/06/2016 10:45 AM EDT Height - - Body Mass Index 20.52 09/21/2016 2:38 PM EDT documented in this encounter Progress Notes Elba Mariano - 12/06/2016 10:30 AM EDT COPD: Very mild on PFT's (just low FEV1/FVC, barely reversible) and barely low DLCO. She is very anxious about this, as mother and brother, both smokers, from emphysema. She, herself, stopped smoking in 1984 after 20 pack years. She is unaware of any breathing problems--tightness, wheezing, sob--if she isn't anxious. She does not require inhalers at this time, and I reassured her that it is veryunlikely that her COPD will worsen with age. Anxiety and sleep disorder: She has used Clonazepam sparingly for years to deal with anxiety that keeps her from sleeping. Her son, 44, has had substance abuse problems, lives with them, has had relapses after long periods of sobriety--this triggers her anxiety. She used to use mediation and yoga poses to help, not doing so now. Takes 1/4-1/2 of 0.5 mg Clonazepam at night if she hasn't slept in a fewnights; 30 pills lasted her 6 mos. She currently has 6 1/2 pills left. She also takes Mirtazapine 15mg, but not nightly, mainly when she wakes up during the night. She says she had disturbing vivid dreams on Paroxetine, fears activation from Sertraline, cannot remember what happened when she took Venl afaxine. Does not require control;led substance contract signed presently. I suggested she try Mirtazapine nightly for a week to see how good her sleep can be. S/p left shoulder surgery: No notes in Epic. She had a plate and 6 screwsinserted mid August, is back to swimming, with great rom. She now has to think about whether to keep the hardware in or think about having it removed (after at least 6 mos). HCM: Flu shot given. Has CPE coming up. At that time, review home safety issues--throw rugs, grab bar in bathroom Elba Mariano - 12/06/2016 10:30 AM EDT Subjective: Chief Complaint: Molly Rios is an 71 y.o. female here for an annual wellness visit. Patient Care Team: Elba Mariano MD as PCP - General (Family Medicine) [...] tablet Take 1 tablet by mouthdaily. ??? cholecalciferol (VITAMIN D3) 10,000 unit capsule Take 1,000 Units by mouth daily. ??? clonazePAM (KlonoPIN) 0.5 mg tablet Take 1 tablet (0.5 mg total) by mouth daily as needed for anxiety. 7 tablet 0 ??? omega-3 fatty acids-fish oil (FISH OIL) 300-1,000 mg capsule Take 1 g by mouth daily. ??? TURMERIC (CURCUMIN MISC) No current facility-administered medications for this visit. Objective: Vital Signs: BP 106/60 (BP Location: Right arm, Patient Position: Sitting) Pulse 73 Temp 36.9 ??C (98.5 ??F) (Oral) Wt 133 lb (60.3 kg) SpO2 98% BMI 20.52 kg/m2 No exam data present Assessment and Plan: The following health maintenance schedule was reviewed with the patient and provided in printed formin the after visit summary: Health Maintenance Topic Date Due ??? Mammogram 1987 ??? Influenza Vaccine (1) 10/15/2016 ??? DXA Scan 12/02/2020 ??? Colonoscopy 10/27/2025 ??? Zoster Vaccines Completed documented in this encounter Miscellaneous Notes Addendum Note - Elba Mariano - 12/06/2016 12:48 PM EDT Addended by: ELBA MARIANO on: 12/06/2016 12:48 PM Modules accepted: Orders documented in this encounter Plan of Treatment Not on filedocumented as of this encounter Visit Diagnoses Diagnosis Chronic obstructive pulmonary disease, u nspecified COPD type (CMS/HCC) - Primary Sleep disorder Unspecified sleep disturbance Anxiety Anxiety state, unspecified Other emphysema (CMS/HCC) Other emphysema documented in this encounter Care Teams Healthcare Risk Control Consultant Relationship Specialty Start Date End Date Elba Mariano MD PCP - General Family Medicine 08/19/16 03/01/18 [address] [place] [address] documented as of this encounter
--- OUTSIDE RECORDS SUMMARY | 2021-07-22 20:19 | XMS_ITS | Encounter Summary ---
:1945 Author Organization [facility] Address [address] [facility], [address] [place] [address] Care Team Providers Name Role Phone Lisa Sotelo MD Primary Care Provider Encounter Details Date Type Department Care Team Description 01/18/2018 Travel Social History Tobacco Use Types Packs/Day [...] on filedocumented in this encounter Care Teams Model Maker Scale Relationship Specialty Start Date End Date Lisa Sotelo MD PCP - General Family Medicine 08/19/16 03/01/18 [address] [place] [address] documented as of this encounter
--- OUTSIDE RECORDS SUMMARY | 2021-07-22 20:19 | XMS_ITS | Encounter Summary ---
:1945 Author Organization [facility] Address [address], [address] [place] [address] Care Team Providers Name Role Phone Laurie Elias NP Primary Care Provider Reason for Referral Rehab (Routine) - Closed Specialty Diagnoses / Procedures Referred By Contact Refer red To Contact Physical Therapy Diagnoses Groin pain, chronic, left Nawaf Jason MD Duddy, Cathy, PT [address] [place] [address] Referral ID Status Reason Start Date Expiration Date Visits V isits Requested Authorized [id number] Closed Specialty 01/25/2018 01/25/2019 1 1 Services Required Reason for Visit Specialty (Routine) - Closed Specialty Diagnoses / Referred By Contact Referred To Contact Procedures Physical Medicine and Diagnoses Low back pain MRI FOLLOW-UP Lisa Sotelo MD Mostoufi, Seyed A, Rehabilitation Procedures FOLLOW UP [address] [place], [place] [address] [facility] [id number] [place] [phone] Fax: Referral ID Status Reason Start Date Expiration Date Visits Requ ested Visits Authorized [id number] Closed 06/13/2017 06/13/2018 8 8 Encounter Details Date Type Department Care Team Description 01/25/2018 Office Visit [facility] Nawaf Jason, Lumbar fa cet arthropathy (Primary Dx); Physiatry, [facility] Radiculopathy, lumbar region; [address] It band syndrome, left; [place] [address] [place], [place] Groin pain, chronic, left; [phone] Tendinopathy of left gluteus medius Social History [...] - Inhaled Oxygen Concentration - - Weight 58.1 kg (128 lb) 01/25/2018 2:30 PM EST Height - - Body Mass Index 20.05 11/01/2017 10:11 AM EDT documented in this encounter Progress Notes Nawaf Jason MD - 01/25/2018 2:45 PM EST Images from the original note were not included. [facility] T: [phone] F:[phone] [employer] .[email or web address] Patient / Leanna Soloan : 1945 PCP Lisa Sotelo MD Visit Location [facility] [place] : [address] [phone] Provider Nawaf Jason MD REASON FOR PM&R F/U Lumbar facet arthropathy [M47.816] INTERVAL HISTORY Dear Dr Lisa Sotelo MD; Leanna Lake is a 72 y.o. female seen today 02/02/18 in follow-up. Continues to complain about left-sided pain in the lateral hip and gluteal region. This continues to persist. Also has some groin pain. I saw her last and I sent her to physical therapy but she has not participated in PT. Symptom has not really changed. She had lumbar MRI. With discomfort that radiates to the hip girdle laterally, we reviewed the MRI in the last visit as well. She had a right L2-L3 foraminal impingement, left L5 nerve root impingementas well as right L5 nerve root impingement. There is no spinal stenosis. When I saw her last, I thought that she has a combination of back pain related to the facet joints leg pain related to perhaps trochanter and IT band and soft tissue. RADIOLOGY ?? Impression 1. At L2-L3, borderline narrowing of the spinal canal secondary to disc bulge, facet and ligamentum flavum hypertrophy. Bilateral disc protrusions result in upmz-ng-eksfkatl right and mild left neural foraminal narrowing, but without significant mass effect on the exiting L2 nerve roots. 2. At L5-S1, moderate encroachment of the right neural foramina and contact of the exiting right L5 nerve root. 3. At L4-L5, slight encroachment of the left subarticular zone, likely to contact the left central L5 nerve root. 4. Sigmoid diverticulosis. POINT OF SERVICE ULTRASOUND EXAMINATION Separate note dictated VISIT DIAGNOSIS Diagnosis Plan 1. Lumbar facet arthropathy 2. Radiculopathy, lumbar region 3. It band syndrome, left 4. Groin pain, chronic, left Prescription to Physical Therapy 5. Tendinopathy of left gluteus medius Physician Musculoskeletal Ultrasound ASSESSMENT Multifactorial pain. Low back pain likely related to the facet joints. She has pain along the lateral aspect of the hip girdle into the groin. Perhaps some of the symptom may relate to tensor fascia joni trochanteric bursitis IT band and gluteus medius essentially soft tissue related. I think she should start working with physical therapist on this includes working on holiness of her range of motion working and soft tissues including muscles and tendons in the hip girdle. I will see her back in my follow-up in several weeks. If she continues to be symptomatic, a targeted injection is recommended. PLAN Orders Placed This Encounter Procedures ??? Physician Musculoskeletal Ultrasound Standing Status: Future Standing Expiration Date: 02/26/2018 Scheduling Instructions: Point of service US - diagnostic ??? Prescription to Physical Therapy Hip ROM reduction right side. Pelvic pain groina dnSI area. Chronic Glut medius tendinopathy 8 visits Standing Status: Future Standing Expiration Date: 07/26/2018 Referral Priority: Routine Referral Type: Rehab Referral Reason: Specialty Services Required Referred to Provider: Pricila Curry, PT Requested Specialty: Physical Therapy Number of Visits Requested: 1 CURRENT PROBLEM LIST Past Medical History: Diagnosis [...] pain, left ??? Diverticulitis ??? Dense breasts CURRENT MEDICATIONS AND ALLERGIES (Reconciled) Current Outpatient [...] by mouth daily., Disp: , Rfl: ??? omega-3 fatty acids-fish oil (FISH OIL) 300-1,000 mg capsule, Take 1 g by mouth daily., Disp: , Rfl: ??? TURMERIC (CURCUMIN MISC), , Disp: , Rfl: ??? doxepin (SINEquan) 10 mg capsule, Take 1 capsule (10 mg total) by mouth nightly., Disp: 90 capsule, Rfl: 0 Allergies: Hydrocodone-acetaminophen; Oxycodone; and Opioids - morphine analogues REVIEW OF SYSTEMS 13 system reviewed on 02/02/2018 with Ms. Barnes. Positive systems are outlined in history of present illness. All other systems are negative at a time of visit. DATA & CHART UPDATE Chart updated on 02/02/2018 based on the information provided by Ms. Barnes at the time of the fuvisit . This includes changes since last visit [...] and available PT notes obtained & reviewed. RESULT REVIEWED([id number]) Available PACS as well as results reviewed with Leanna. Lab Results Component Value Date CREATININE 0.67 12/26/2017 BUN 9 12/26/2017 No results found for: HAV, HEPAIGM, HEPBIGM, HEPBCAB, HBEAG, HEPCAB No results found for this or any previous visit. No results found for: RF No results found for: RPR No results found for: SEDRATE No results found for: HIV1X2 Results for orders placed in visit on 07/02/13 X-Ray lumbar spine 2-3 views ap lat Narrative [place]NA [place] [id number] [facility] Yessy John [facility] [id number] 1945 68 07/02/2013 Clinical History: RT BUTTOCK AND HIP PAIN EXAM# TYPE/EXAM RESULT [id number] GNE470/LUMBAR SPINE 2-3 VIEWS Attending Radiologist: MD OROZCO PHILIP A. History: Hip pain. Technique: AP and lateral images of the lumbar spine. Comparison: None. Findings: Disc space narrowing with minor articular surface sclerosis and degenerative spur formation is noted at the L3-4, L4-5, L5-L1 level. There are minor degenerative spurs elsewhere the lumbar spine. Sclerosis is noted involving the facet joints in the lower lumbar spine. There is no evidence of a spondylolisthesis. The heights of the lumbar vertebrae are preserved. Impression: Degenerative change. Report ID: [id number] Dictated: 07/02/13 1328 PAGE 1 Signed Report (CONTINUED) [place] [id number] Stewart JohnYessy NUGENT UNK [id number] 1945 68 07/02/2013 Clinical History: RT BUTTOCK AND HIP PAIN EXAM# TYPE/EXAM RESULT [id number] SCZ372/LUMBAR SPINE 2-3 VIEWS <Continued> ---- Electronic Signature on File ---- Signed By: RAMA OROZCO M.D. Reported By: RAMA OROZCO M.D. CC: Hieu Trevizo M.D.; Yessy William N.P. PAGE 2 Signed Report CC: Hieu Trevizo M.D.; Yessy William N.P. PAGE 2 Signed Report Chelsea PHILLIPS Salesperson Flying Squad: PANKAJ Counter Clerk: CRISTIAN Results for orders placed during the hospital encounter of 06/22/17 MRI Lumbar Spine without Contrast Narrative RESPONSIBLE NEWSPAPER INSERTER: Dusty Norwood M.D. EXAMINATION: MRI LUMBAR SPINE WO CONTRAST CLINICAL INDICATION: 72-year-old female presenting with low back pain at the region of L3-L4. Also right hip pain and bilateral leg pain and right foot tingling TECHNIQUE: Sagittal and axial T1 and T2, and sagittal fat-suppressed T2 sequences were obtained without intravenous contrast. COMPARISON: Comparison is made to plain radiographs dated 07/02/2013. FINDINGS: Vertebral body alignment: There is normal alignment of the lumbar spine. Vertebral body heights/ Bone marrow: Vertebral body height is preserved, demonstrating minor anterior [...] canal stenosis. Bilateral disc protrusions result in tvig-yf-sqnzalmg right and mild left neural foraminal narrowing, but without contact of both exiting L2 nerve roots. L3-4: There is a mild broad-based disc bulge with slight flattening of the ventral thecal sac. Superimposed is a sellar/ligamentum flavum hypertrophy, but without significant narrowing of the spinal canal. There is mild bilateral neural foraminal narrowing. L4-5: There is a broad-based disc [...] foramina and contact of the exiting right U2tezhu root. There is fhkx-ja-zksyctgr encroachment of the left neural foramina, but [...] flavum hypertrophy. Bilateral disc protrusions result in ltbo-mp-rduxzpfs right and mild left neural foraminal narrowing, but without significant mass effect on the exiting L2 nerve roots. 2. At L5-S1, moderate encroachment of the right neural foramina and contact of the exiting right L5 nerve root. 3. At L4-L5, slight encroachment of the left subarticular zone, likely to contact the left central L5 nerve root. 4. Sigmoid diverticulosis. No results found for this or any previous visit. No results found for this or any previous visit. No results found for this or any previous visit. No results found for this or any previous visit. No results found for this or any previous visit.. No results found for this or any previous visit. No results found for this or any previous visit. No results found for this or any previous visit. No results found for this or any previous visit.. No results found for this or any previous visit. No results found for this or any previous visit. No results found for this or any previous visit. EDUCATION AND COUNSELING In addition to in person counseling, patient was directed to our webpage for further education on the topic : [employer] to Photos DISCLAIMER Please note that this record has been created with voice recognition software. Wrong word or soundslike substitution may have occurred due to the inherent limitation of the software. If a word or phrases appears to be out of context and the meaning of the phrase or sentence is unclear, please contact our office for clarification. END OF NOTE documented in this encounter Procedure Notes Nawaf Jason MD - 01/25/2018 2:45 PM EST Images from the original note were not included. Procedures Brief office procedure note: Date: 01/26/18 Patient: Leanna Lake Hip girdle ultrasound on the right Report: Limited ultrasound of the Rt hip girdle. Localized pain is along the tensor fascia joni and along the gluteus medius. No localized mass noted. Some increased echogenicity at the gluteus medius likely tendinopathy of the gluteus medius. Trochanter appears normal. On sonopalpitation, she is locally tender on examination also in the palpitation of the left TFL butthe characteristics of the TFL is unremarkable. 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
--- OUTSIDE RECORDS SUMMARY | 2021-07-22 20:19 | XMS_ITS | Encounter Summary ---
:1945 Author Organization [facility] Address [address] [facility], [address] [place] [address] Care Team Providers Name Role Phone Lisa Sotelo MD Primary Care Provider Reason for Visit Reason Comments Sinusitis fever 101 last night Encounter Details Date Type Department Care Team Description 12/26/2017 [facility]elo Diverti culitis (Primary Practice MD Dx) [address] [place] [address] [place] [address] [place], [place] [phone] Social History Tobacco Use Types Packs/Day Years Used Date Former Smoker Smokeless Tobacco: Never Used Alcohol Use Standard Drinks/Week Comments Defer 0 (1 standard drink = 0.6 oz pure alcoho l) Sex Assigned at Date Recorded Female 04/12/2019 2:19 PM EST documented as of this encounter Last Filed Vital Signs Vital Sign Reading Time Taken Comments Blood Pressure 102/60 12/26/2017 3:18 PM EST Pulse 77 12/26/2017 3:18 PM EST Temperature 36.9 ??C (98.4 ??F) 12/26/2017 3:18 PM EST Respiratory Rate - - Oxygen Saturation 98% 12/26/2017 3:18 PM EST Inhaled Oxygen Concentration - - Weight 58.1 kg (128 lb) 12/26/2017 3:18 PM EST Height - - Body Mass Index 20.05 11/01/2017 10:11 AM EDT documented in this encounter Progress Notes Lisa Sotelo - 12/26/2017 3:00 PM EST S-- 72 yo with known severe sigmoid diverticulosis (colonoscopy 2016)has experience d 3 bouts of abdominal pain, 2 with fever, over the past 3 months. This time, sx started 12/22 with increased bloatingafter eating a huge amount of pasta with cilantro pesto made with almonds (which never bothered her alone). The next day she felt worse, stopped up and ran fever just <101. 2 days ago had pain lower abdomen midline. Took Miralax that produced mucusy rectal discharge, partial rectal prolapse that she was able to reduce. Took Dulcolax tabs that night with no results. No dysuria, hematuria, hematochezia, melena, N/V Yesterday continued with pain, less bloating T max 100.7. She took 2 senna at 4 PM and a whole bottle of Mg Citrate at 10 PM. Today had several formed stool, then watery stool. No fever yet today. Dr. Becerril wanted her to take Miralax daily, which she hasn't done. Thinks bout of similar sx in Oct was also after very large quantity of delicious pasta. She incidentally notes that medical MJ is helping her sleep, though she thinks it might be placebo effect... O-- Afebrile, no distress. Thin woman. Abdomen scaphoid, normal bowel sounds. Tender w/o mass llq and suprapubic area. No rebound. A-- Likely diverticulitis. P-- CBC/diff, BMP (in case she needs CT). Start Augmentin 875/125 tid x 7 days. Clear liqs for 48-72hours, then feed. Probiotic once daioy in between antibiotic doses. If not improved or develops n/v,to ED. As she needs new GI doc, this is a good time for her to met one. Can start Mirlax in 2 wks after she is feeling back to normal. Avoid megadoses of pasta... documented in this encounter Plan of Treatment Scheduled Orders Name Type Priority Associated Diagnoses Order S chedule CBC auto differential Lab Routine Diverticulitis Orde red: 12/26/2017 documented as of this encounter Procedures Procedure Name Priority Date/Time Associated Diagnosis Comme nts [facility] - CBC (INCLUDES Routine 12/26/2017 3:56 Res ults for this DIFFERENTIAL AND PM EST procedure a re in PLATELETS) the results section. BASIC METABOLIC PANEL Routine 12/26/2017 3:56 Diverticulitis R esults for this PM EST procedure are i n the results section. documented in this encounter Results (ABNORMAL) [facility] - CBC (with Differential and Platelets) (12/26/2017 3:56 PM EST) [facility] gist Method Time Signature White Blood 13.0 (H) 3.8 - [facility] Count 10.8 [facility] [place] [facility] Red Blood Count 4.18 3.80 - [facility] 5.10 Diagnostics Million/u [place] [facility] Hemoglobin 13.2 11.7 - [facility] 15.5 g/dL [facility] [place] [facility] Hematocrit 37.9 35.0 - [facility] 45.0 % [facility] [place] [facility] MCV 90.7 80.0 - [facility] 100.0 fL [facility] [place] [facility] MCH 31.6 27.0 - [facility] 33.0 pg [facility] [place] [facility] MCHC 34.8 32.0 - [facility] 36.0 g/dL [facility] [place] [facility] MRDW 12.7 11.0 - [facility] 15.0 % [facility] [place] [facility] Platelet count 325 140 - 400 [facility] Th[facility]/ [facility] [place] [facility] MPV 10.5 7.5 - [facility] 12.5 fL [facility] [place] [facility] Absolute 10,127 1,500 - [facility] Neutrophil (H) 7,800 Diagnostics Count cells/uL [place] [facility] Lymphosytes 1,404 850 - [facility] absolute 3,900 Diagnostics cells/uL [place] [facility] Absolute 1,404 (H) 200 - 950 [facility] Monocyte count cells/uL [facility] [place] [facility] Absolute 26 15 - 500 [facility] Eosinophil cells/uL Diagnostics count [place] [facility] Lymphocyte 39 0 - 200 [facility] cells/uL [facility] [place] [facility] Neutrophils 77.9 % [facility] [place] [facility] Lymphocyte 10.8 % [facility] [place] [facility] Monocytes 10.8 % [facility] [place] [facility] Eosinophil 0.2 % [facility] [place] [facility] Basophil 0.3 % [facility] [place] [facility] Specimen Anatomical Collection Method Collection Time Receive d Time (Source) Location / / Volume Laterality 12/26/2017 3:56 PM 8 3:56 EST PM EST Lisa Sotelo MD LAB BLOOD ORDERABLES Performing Organization Address City/State/ZIP Code Phon e Number [employer] [address] [phone] [place] [address] B [facility] [address] [place] [address], [facility] [address] [phone] Diagnost (ABNORMAL) Basic metabolic panel (12/26/2017 3:56 PM EST) athologist Signature Glucose 104 (H) 65 - 99 [employer] mg/dL [place] [facility] Comment: ? Fasting reference interv al For someone without known diabetes, a gl ucose value between 100 and 125 mg/dL is consistent with prediabetes and should be confirmed with a follow-up test. Bun 9 7 - 25 mg/dL [facility] [place] [facility] Creatinine, Ser 0.67 0.60 - 0.93 mg/dL [facility] [place] [facility] Comment: For patients >49 years of age, the refer ence limit for Creatinine is approximately 13% high er for people identified as -Citizen Of [place]. eGFR NON-AFR. 89 > OR = 60 mL/min/1.73m2 Qu est Diagnostics [facility] eGFR 103 > OR = 60 mL/min/1.73m2 Que st [facility] BUN/Creatinine NOT APPLICABLE 6 - 22 (calc) [facility] [place] [facility] Sodium 137 135 - 146 mmol/L [facility] [place] [facility] Potassium 4.0 3.5 - 5.3 mmol/L [facility] [place] [facility] Chloride 98 98 - 110 mmol/L [facility] [place] [facility] CO2 29 20 - 32 mmol/L [facility] [place] [facility] Calcium 9.2 8.6 - 10.4 mg/dL [facility] [place] [facility] Specimen Anatomical Collection Method Collection Time Receive d Time (Source) Location / / Volume Laterality Blood Venous blood / 12/26/2017 3:56 PM 018 3:56 Unknown EST PM EST Lisa Sotelo MD LAB BLOOD ORDERABLES Performing Organization Address City/State/ZIP Code Phon e Number [employer] [address] [address] [place] [address], [address] [employer] [address] [place] [address], [facility] [address] [address] Diagnost documented in this encounter Visit Diagnoses Diagnosis Diverticulitis - Primary Diverticulitis of colon (without mention of hemorrhage) documented in this encounter Care Teams Vallez Filter Operator Relationship Specialty Start Date End Date Lisa Sotelo MD PCP - General Family Medicine 08/19/16 03/01/[address] [place] [address] documented as of this encounter
--- OUTSIDE RECORDS SUMMARY | 2021-07-22 20:19 | XMS_ITS | Encounter Summary ---
:1945 Author Organization [facility] Address [address] [facility], [address] [place] [address] Care Team Providers Name Role Phone Laurie Elias NP Primary Care Provider Reason for Referral Diagnostic Imaging (Routine) - Closed Specialty Diagnoses / Procedures Referred By Contact Refer georges To Contact Radiology Diagnoses Diverticulitis Lower abdominal pain Laurie Elias NP Procedures CT Abdomen Pelvis with Contrast [address] [place] [address] Referral ID Status Reason Start Date Expiration Date Visits Requ ested Visits Authorized [id number] Closed 03/02/2018 03/02/2019 1 1 Reason for Visit Diagnostic Imaging (Routine) - Closed Specialty Diagnoses / Procedures Referred By Contact Refer georges To Contact Radiology Diagnoses Diverticulitis Lower abdominal pain Laurie Elias NP Procedures CT Abdomen Pelvis with Contrast [address] [place] [address] Referral ID Status Reason Start Date Expiration Date Visits Requ ested Visits Authorized [id number] Closed 03/02/2018 03/02/2019 1 1 Encounter Details Date Type Department Care Team Description 03/03/2018 Hospital Encounter [facility] Heather Eliasu litis; Hospital CT Scan ANN Sullivan Lower abdominal pain [address] [facility] [address] [place] [address] Family [facility] [address] [place], [place] [phone] Social History Tobacco Use Types Packs/Day Years [...] mg capsule TURMERIC (CURCUMIN MISC) daily. 0 amoxicillin-pot Take 1 tablet by 21 tablet 0 03/02/2018 clavulanate (AUGMENTIN) mouth 3 (three) 875-125 mg per times a day for 7 tabletIndications: days. Take around Diverticulitis food. doxepin (SINEquan) 10 mg Take 1 capsule (10 90 capsule 0 01/31/2019 capsule mg total) by mouth nightly. ondansetron (ZOFRAN) 8 mg Take 1 tablet (8 mg 20 tablet 0 0 03/03/2018 03/10/2018 tablet total) by mouth every 8 (eight) hours as needed for nausea or vomiting for up to 7 days. aspirin 81 mg EC tablet Take 81 mg by mouth 0 01/22/2019 daily. ASTRAGALUS ROOT EXTRACT, 0 03/22/2018 BULK, MISC cholecalciferol, vitamin Take 1,000 Units by 0 01/22/2019 D3, (VITAMIN D3) 1,000 mouth daily. unit capsule documented as of this encounter Plan of Treatment Not on filedocumented as of this encounter Procedures Procedure Name Priority Date/Time Associated Diagnosis Comme nts CT ABDOMEN PELVIS W Routine 03/03/2018 6:18 PM Diverticu litis Results for this CONTRAST EST Lower abdominal pain procedu re are in the results section. [...] ation. Dictated: 03/03/2018 10:05 PM Report ID: [id number] Report signed in external system at 03/03 22:05 Reported By: Andi Hartley M.D. (residehillary t) ([id number]) Signed By: Gt Ledezma M.D. (LAURA Betancur) Narrative 03/03/2018 10:05 PM EST RESPONSIBLE CIGAR SORTER: Gt Ledezma M.D. EXAMINATION: CT ABDOMEN PELVIS [...] might be different from the original. RESPONSIBLE CIGAR SORTER: Gt Ledezma M.D. EXAMINATION: CT ABDOMEN PELVIS [...] ation. Dictated: 03/03/2018 10:05 PM Report ID: [id number] Report signed in external system at 03/03 22:05 Reported By: Andi Hartley M.D. (pam dorman) ([id number]) Signed By: Gt Ledezma M.D. (LAURA Betancur) Laurie Elias NP IMG CT PROCEDURES documented in this encounter Visit Diagnoses Diagnosis Diverticulitis Diverticulitis of colon (without mention of hemorrhage) Lower abdominal pain Abdominal pain, other specified site documented in this encounter Administered Medications Inactive Administered Medications - up to 3 most recent administrations Medication Order MAR Action Action Date Dose Rate Site iohexol (OMNIPAQUE) 350 mg Given 03/03/2018 6:19 PM EST 35,000 m g iodine/mL injection 35,000 mg 35,000 mg (100 mL), intravenous, Once in imaging, contrast, Starting on Tue03/03/18 at 1818, For 1 dose documented in this encounter Care Teams Retail Sales Associate Relationship Specialty Start Date End Date Laurie Elias, ANN PCP - General Family Medicine 03/02/18 11/19/19 [address] [place] [address] documented as of this encounter
--- OUTSIDE RECORDS SUMMARY | 2021-07-22 20:19 | XMS_ITS | Encounter Summary ---
:1945 Author Organization [facility] Address [address] [facility], [address] [place] [address] Care Team Providers Name Role Phone Kevin Miranda MD Primary Care Provider Reason for Referral Diagnostic Imaging (Routine) - Closed Specialty Diagnoses / Procedures Referred By Contact Refer red To Contact Diagnoses Right hip pain Right groin pain Yasmine Shaw MD Procedures X-ray Hip 2-3 Views Right (Pelvis Optional) [facility] [address] [facility], [place] [address] Referral ID Status Reason Start Date Expiration Date Visits Requ ested Visits Authorized [id number] Closed 07/22/2017 07/22/2018 1 1 Encounter Details Date Type Department Care Team Description 07/22/2017 Ancillary Orders [facility] Roxana Shaw MD Right hip pain; X-ray at [address] [facility] groin pain [address] [facility] [address] [facility] [place], [place] [address] [facility], [address] [address] [phone] [place], [place] [address] (Wo rk) Social History Tobacco Use Types [...] X-ray Hip 2-3 Views Right (Pelvis Optional) (07/22/2017 10:41 AM EDT) Anatomical Region Laterality Modality Hip, Pelvis Right Digital Radiography Specimen (Source) Anatomical Collection Method Collection Time Re ceived Time Location / / Volume Laterality 07/22/2017 10:45 AM EDT Impressions 07/22/2017 10:45 AM EDT Minor degenerative change. Dictated: 07/22/2017 10:45 AM Report ID: [id number] Report signed in external system at 07/22 10:45 Reported By: Wale Faustin M.D. (TAMICA P) Signed By: Wale Faustin M.D. (JACQUELINE) Narrative 07/22/2017 10:45 AM EDT RESPONSIBLE FABRIC AWNING REPAIRER: Wale Faustin M.D. EXAMINATION: XR HIP 2-3 VW RIGHT (PELVIS OPTIONAL) CLINICAL INDICATION: Pain. ??Decreased range of motion. TECHNIQUE: Two views of the right hip. COMPARISON: 07/02/2013 FINDINGS: There is minor narrowing of the hip join t centrally with minor spurring off the acetabular rim and femoral head. ??These findings are not significantly changed compared with previously. ??No other abnormality is seen. Procedure Note Wale Faustin MD - 07/22/2017Formattin g of this note might be different from the original. RESPONSIBLE FABRIC AWNING REPAIRER: Wale Faustin M.D. EXAMINATION: XR HIP 2-3 VW RIGHT (PELVIS OPTIONAL) CLINICAL INDICATION: Pain. Decreased range of motion. TECHNIQUE: Two views of the right hip. COMPARISON: 07/02/2013 FINDINGS: There is minor narrowing of the hip join t centrally with minor spurring off the acetabular rim and femoral head. These findings are not significantly changed compared with previously. No other abnormality is seen. IMPRESSION: Minor degenerative change. Dictated: 07/22/2017 10:45 AM Report ID: [id number] Report signed in external system at 07/22 10:45 Reported By: Wale Faustin M.D. (TAMICA P) Signed By: Wale Faustin M.D. (ROGP) Yasmine Shaw MD IMG XR PROCEDURES documented in this encounter Visit Diagnoses Diagnosis Right hip pain Pain in joint, pelvic region and thigh Right groin pain Abdominal pain, right lower quadrant Right hip pain Pain in joint, pelvic region and thigh Right groin pain Abdominal pain, right lower quadrant documented in this encounter Care Teams Nursery Laborer Relationship Specialty Start Date End Date Kevin Miranda MD PCP - General Family Medicine 11/20/[address] [place], [place] [id number] documented as of this encounter
--- OUTSIDE RECORDS SUMMARY | 2021-07-22 20:19 | XMS_ITS | Encounter Summary ---
:1945 Author Organization [facility] Address [address] [facility], [address] [place] [address] Care Team Providers Name Role Phone Lisa Sotelo MD Primary Care Provider Encounter Details Date Type Department Care Team Description 08/15/2017 Scan Document - View [facility] Lisa Sotelo in [facility] Practice [address] [place] [address] [place] [address] Social History Tobacco Use Types Packs/Day Years [...] on filedocumented in this encounter Care Teams Auto Striper Relationship Specialty Start Date End Date Lisa Sotelo MD PCP - General Family Medicine 08/19/16 03/01/[address] [place] [address] documented as of this encounter
--- OUTSIDE RECORDS SUMMARY | 2021-07-22 20:19 | XMS_ITS | Encounter Summary ---
:1945 Author Organization [facility] Address [address] [facility], [address] [place] [address] Care Team Providers Name Role Phone Kevin Miranda MD Primary Care Provider Reason for Visit Reason Comments Med Refill Encounter Details Date Type Department Care Team Description 03/10/2017 Refill [facility] Lisa Gudino MD [facility] [address] [address] [place] [address] [phone] (Wo rk) Social History Tobacco Use Types [...] on filedocumented in this encounter Care Teams Web Application Tester Relationship Specialty Start Date End Date Kevin Miranda MD PCP - General Family Medicine 11/20/[address] [place] [address] documented as of this encounter
--- OUTSIDE RECORDS SUMMARY | 2021-07-22 20:19 | XMS_ITS | Encounter Summary ---
:1945 Author Organization [facility] Address [address] [facility], [address] [place] [address] Care Team Providers Name Role Phone Lisa Sotelo MD Primary Care Provider Encounter Details Date Type Department Care Team Description 04/14/2017 Office Visit [facility] Lisa Sotelo MD Canceled (Error) Practice [address] [place] [phone] (Wo rk) Social History Tobacco Use Types [...] on filedocumented in this encounter Care Teams Seafood Manager Relationship Specialty Start Date End Date Lisa Sotelo MD PCP - General Family Medicine 08/19/16 03/01/[address] [place] [address] documented as of this encounter
--- OUTSIDE RECORDS SUMMARY | 2021-07-22 20:19 | XMS_ITS | Encounter Summary ---
:1945 Author Organization [facility] Address [address] [facility], [address] [place] [address] Care Team Providers Name Role Phone Lisa Sotelo MD Primary Care Provider Encounter Details Date Type Department Care Team Description 12/26/2017 Travel Social History Tobacco Use Types Packs/Day [...] on filedocumented in this encounter Care Teams Bilingual Counter Sales Retail Relationship Specialty Start Date End Date Lisa Sotelo MD PCP - General Family Medicine 08/19/16 03/01/18 [address] [place] [address] documented as of this encounter
--- OUTSIDE RECORDS SUMMARY | 2021-07-22 20:19 | XMS_ITS | Encounter Summary ---
:1945 Author Organization [facility] Address [address] [facility], [address] [place] [address] Care Team Providers Name Role Phone Lisa Sotelo MD Primary Care Provider Encounter Details Date Type Department Care Team Description 01/26/2018 Office Visit [place] [facility], Diverticulitis of Gastrointestinal MD [facility] [address] [facility] without perforation or [address] [facility], absce ss without [address] bleeding (Primary Dx) [place] [address] [place], [place] [phone] Social History Tobacco Use Types Packs/Day Years Used Date Former Smoker Smokeless Tobacco: Never Used Alcohol Use Standard Drinks/Week Comments Defer 0 (1 standard drink = 0.6 oz pure alcoho l) Sex Assigned at Date Recorded Female 04/12/2019 2:19 PM EST documented as of this encounter Progress Notes [place] Gorman MD - 01/26/2018 11:30 AM EST Images from the original note were not included. 01/28/18 [place] Gorman M.D. center hole reamer, [facility] Chief, Gastroenterology [facility] [address] [place] [address] FAX [phone] Email: [email or web address] 01/28/18 Re: [id number] Molly Rios Referring physician: Lisa Sotelo MD [address] [facility] [address] Molly Rios is a 72 y.o. female with a history of diverticulosis who comes to my office for a follow up office visit and evaluation of constipation. The patient first learned of her diagnosis of diverticulosis at a screening colonoscopy at age 52. In 2015 she was found to have severe diverticulosis on colonoscopy. In October, her mild chronic constipation worsened and she treated it with apricots and prunes. In December 2017 her constipation worsened again and took Senna, Mg Citrate with some relief. She developed a fever and this was treated with Amoxicillin. Eventually the patient begantaking daily Miralax with good relief. Lately, she has been off of Miralax and taking fiber. Past Medical History: Past Medical History: Diagnosis [...] 03/03/2016 1432 K 4.5 03/03/2016 1432 CL 98 12/26/2017 1556 CO2 29 12/26/2017 1556 BUN 9 12/26/2017 1556 BUN 14 03/03/2016 1432 CREATININE 0.67 12/26/2017 1556 Component Value Date/Time CALCIUM 9.2 12/26/2017 1556 ALT 33 03/03/2016 1432 Lab Results Component Value Date WBC 13.0 (H) 12/26/2017 PLT 337 08/28/2016 No results found for: PT, INR No results found for: ESR No results found for: CRP No results found for: TIBC, UIBC No results found for: AMYLASE No results found for: LIPASE No results found for: SMOOTHMUSCAB, MITOAB No results found for: DELMA Imaging Summary: 1. None 2. 3. Endoscopy Summary: 1. Colonoscopy 2016 2. 3. Impression: Molly Rios is a 72 y.o. female who has returned for a follow up visit to evaluate: 1. ? Chronic diverticulosis 2. ? Recurrent diverticulitis 3. Normal labs Recommendations: I recommended: 1. Daily Miralax 2. ABD CT scan if symptoms recur 3. I spent at least 40 minutes in [...] Primary documented in this encounter Care Teams Inspector Packer Relationship Specialty Start Date End Date Lisa Sotelo MD PCP - General Family Medicine 08/19/16 03/01/18 [address] [place] [address] documented as of this encounter
--- OUTSIDE RECORDS SUMMARY | 2021-07-22 20:19 | XMS_ITS | Encounter Summary ---
:1945 Author Organization [facility] Address [address], [address] [place] [address] Care Team Providers Name Role Phone Lisa Sotelo MD Primary Care Provider Reason for Visit Reason Comments Abdominal Pain Encounter Details Date Type Department Care Team Description 08/28/2016 Emergency [place] [facility] [place], Alphonso, Elevated temperature (Primary Dx); Department Constipation, unspecified constipation t ype [address] [place] [address] [place] [id number] Social History Tobacco Use Types Packs/Day Years Used Date Former Smoker Sex Assigned at Date Recorded Female 04/12/2019 2:19 PM EST documented as of this encounter Last Filed Vital Signs Vital Sign Reading Time Taken Comments Blood Pressure 109/69 08/28/2016 1:02 PM EDT Pulse 85 08/28/2016 1:02 PM EDT Temperature 36.9 ??C (98.5 ??F) 08/28/2016 1:02 PM EDT Respiratory Rate 16 08/28/2016 1:02 PM EDT Oxygen Saturation 98% 08/28/2016 1:02 PM EDT Inhaled Oxygen Concentration - - Weight - - Height - - Body Mass Index - - documented in this encounter Discharge Instructions Discharge InstructionsMONAE Love - 08/28/2016 12:48 PM EDT Images from the original note were not included. You were evaluated and treated primarily by the Physician Logistics Project Manager (MONAE). The supervising Attending Physician did see and evaluate you as well. Your presenting symptoms, physical examination, diagnosisand treatment plan were all extensively reviewed with the supervising Attending Physician. If you have any questions for the Attending Physician please feel free to ask before you are discharged. DIAGNOSIS & TREATMENT: You were seen in the Emergency Department for you elevated temperature and resolved abdominal pain. Your physical examination is reassuring. At this time, there are no identifiable causes of your elevated temperature, and is possible that this is a simple postoperative reaction. Your abdominal pain islikely related to constipation. TESTS & IMAGING: Your lab results did show an elevated white blood cell count, but were otherwise reassuring. Your chest x-ray did not show any evidence of cardiopulmonary disease. FURTHER CARE: You should continue using the Maalox as directed as you have been. Additionally, you have been prescribed a Dulcolax suppository. You should use this as prescribed once daily for 3 days to help with your bowel movements. If this does not provider relief, you may attempt an over the counter Fleet's Enema. If the above steps do not resolve your constipation, you must be seen by your regular doctor or backin this emergency department. If you are not experiencing pain from your surgery, do not take the Dilaudid you have been prescribed as this can increase constipation. Constipation Prevention: Drink one 16 oz of water every day before breakfast and continue to drink plenty of fluids throughout the day. Make sure you are getting enough fiber in your diet. WHEN YOU SHOULD BE SEEN NEXT: Please call your doctor and be seen with in the next 3-5 days for re-evaluation if your symptoms arenot improving. You should also call your surgeon as soon as possible and schedule a follow-up appointment as soon as possible for reevaluation. WHEN YOU SHOULD RETURN TO THE ED: Please return to the emergency room if you start vomiting, develop fever above 100.4, cough, shortness of breath, pain in your urine, blood in your urine, pain/redness/drainage from your surgical site,worsening constipation, return of abdominal pain, nausea, vomiting, your symptoms worsen, you get new symptoms or you are unable to schedule follow up care. Constipation Discharge Instructions, Adult About this topic Constipation is a problem that makes it harder to have bowel movements. With this, you may move yourbowels fewer than 3 times a week. Stools may be hard, dry, and large in size. You may have pain whenpassing stools. Most of the time, constipation is just for a short time. What care is needed at home? ?? Ask your doctor what you need to do when you go home. Make sure you ask questions if you do not understand what the doctor says. This way you will know what you need to do. ?? Drink 6 to 8 glasses of water each day. ?? Limit your intake of beer, wine, and mixed drinks (alcohol) and caffeinated drinks, such as coffee, tea, or cola drinks. ?? Set a regular schedule to pass stools. ?? Eat a high fiber diet. ?? Do mild exercise such as a brisk walk. ?? Move your bowels as soon as you feel the urge. ?? Sitting in a warm bath may help you relax and feel like having a bowel movement. What follow-up care is needed? Your doctor may ask you to make visits to the office to check on your progress. Be sure to keep these visits. What drugs may be needed? The doctor may order drugs to: ?? Help you move your bowels ?? Soften stools, like mineral oils ?? Add bulk to the stool, like fiber supplements Will physical activity be limited? Your physical activities will not be limited in most cases. Try to stay physically active. This may help treat hard stools What changes to diet are needed? ?? Eat high fiber foods. These include whole grains, fruits, and vegetables. ?? Limit sugary, fatty, and starchy foods. ?? Drink 6 to 8 glasses of water each day. What problems could happen? ?? Rectal bleeding ?? Hemorrhoids ?? Tears around the skin of the anus ?? Hard stool may pack the large bowels very tightly. If this happens, the normal pushing action of the bowels is not enough to remove the stool. This is called fecal impaction. What can be done to prevent this health problem? ?? Do not ignore the urge to have bowel movements. Move your bowels as soon as you feel the urge to do so. ?? Have a regular time for your bowel movements. The best time may be after breakfast or any other meals. ?? Eat foods that are high in fiber such as whole grain breads and cereal. Eat at least 5 servings of fruits and vegetables each day. ?? Do not take drugs (laxatives) to help you move your bowels too often. Overuse of these drugs may harm your bowels and may make your health problem worse. ?? Eat less sweets, cheese, and processed foods. These foods are high in fat or sugar and may cause hard stools. When do I need to call the doctor? Seek care right away or go to the ER if you have: ?? Lots of rectal bleeding ?? Sagging of the rectum ?? No bowel movement for more than 3 days ?? Very bad belly pain with hard stools and fever of 100.4??F (38??C) or higher, chills Call your doctor if you have: ?? Change in bowel habits (hard stools alternating with??loose stools) ?? Very bad pain in the anus during a bowel movement ?? Hemorrhoids ?? White or chalk colored stools ?? Cracks or a tear in the lining of your anus ?? Hard stools for more than 2 weeks with returning belly pain ?? You are not feeling better in 2 to 3 days or you are feeling worse Teach Back: Helping You Understand The Teach Back Method helps you understand the information we are giving you. The idea is simple. After talking with the staff, tell them in your own words what you were just told. This helps to make sure the staff has covered each thing clearly. It also helps to explain things that may have been a bit confusing. Before going home, make sure you are able to do these: ?? I can tell you about my condition. ?? I can tell you what changes I need to make with my diet or drugs. ?? I can tell you what I will do if I have lots of rectal bleeding or very bad belly pain with hard stools and a fever. Where can I learn more? FamilyDoctor.org http://familydoctor.org/familydoctor/en/diseases-conditions/constipation.html National Digestive Diseases??Information Clearinghouse http://digestive.niddk.nih.gov/ddiseases/pubs/constipation/#who Last Reviewed Date 2013-05-02 Consumer Information Use and Disclaimer This information is not specific medical advice and does not replace information you receive from your health care provider. This is only a brief summary of general information. It does NOT include allinformation about conditions, illnesses, injuries, tests, procedures, treatments, therapies, discharge instructions or life-style choices that may apply to you. You must talk with your health care provider for complete information about your health and treatment options. This information should not beused to decide whether or not to accept your health care provider???s advice, instructions or recommendations. Only your health care provider has the knowledge and training to provide advice that is right for you. Copyright Copyright ?? 2016 [employer]. and its affiliates and/or licensors. All rights reserved. documented in this encounter Medications at Time of Discharge Medication Sig Dispensed Refills Start Date End Date bisacodyl (DULCOLAX) Insert 1 10 suppository 0 08/28/2016 09/07/2016 10 mg suppository suppository (10 mg total) into the rectum daily for 10 days. HYDROmorphone Take 2 mg by mouth 0 09/2016 (DILAUDID) 2 mg every 4 (four) tablet hours as needed for moderate pain (4-6). documented as of this encounter ED Notes Alphonso Morton MD - 08/28/2016 1:04 PM EDT Images from the original note were not included. ATTENDING PHYSICIAN ATTESTATION NOTE I have performed a history and physical examination of the patient and discussed her management withthe ANTON. I have reviewed the ANTON's note, documented findings and plan of care except as noted. Patient presents with concerned about low-grade fever over the past 2 days as well as some abdominalcramping yesterday and constipation. She is 4 days status post ORIF of the left clavicle fracture [facility]. She is Dilaudid for the first 2 days postoperatively the pain overall is been well-controlled she has not required further pain medication. She has not had a bowel movement since before the surgery. Yesterday she noted low-grade fever and some abdominal cramping. Today she has had no further abdominal pain. She did have some loose stool today, she has been having flatus. She has a noted history of extensive diverticulosis by colonoscopy, this is never caused diverticulitis but she was concernedthat this could be diverticulitis so comes to the ED. In the meantime, she has had no urinary symptoms, URI symptoms, has noted no skin changes over the surgical site. She has had no antipyretics today. On my exam she sitting up resting comfortably in no distress, Breath sounds are clear and equal surgical site of the left clavicle is clean dry intact with no surrounding skin changes or fluctuance no drainage;, bowel sounds present, abdomen soft nontender nondistended no guarding or rebound. Differential diagnosis: Postoperative fever, urinary tract infection, pneumonia, wound infection, diverticulitis Low-grade fever few days after surgery. She has been having constipation which is likely a result ofopioids postoperatively. She had some abdominal cramping today, no abdominal pain today. Here she isafebrile nontoxic appearing her abdominal exam is entirely benign. There is no sign of a wound infection. We worked up for typical postoperative infections with a chest x-ray, urinalysis these both were unrevealing. Rectal exam shows no fecal impaction. Her exam does not suggest diverticulitis I do not think a CT scan is indicated at this time. We will have her improve her bowel regimen and continue postoperative management. She demonstrated understanding of reasons to return to the ED. Alphonso Morton MD August 28, 2016, 1:30 PM Alphonso Morton MD 08/28/16 2217 Alphonso Morton MD - 08/28/2016 1:04 PM EDT I have reviewed the patient's clinical presentation, history, and examination. In addition, I have interviewed and examined the patient. I agree with the PA's history and exam except as noted. I supervised the decision making process, including orders and disposition. MD Alphonso Rosa MD 08/28/16 3029 Helen Duenas RN - 08/28/2016 1:03 PM EDT Instructions reviewed with patient. Follow up appointment reviewed with patient. Prescription reviewed with patient. Patient verbalized understanding. IV removed. on the way to pick patient up and drive patient home. Helen Duenas RN 08/28/16 1304 Helen Duenas RN - 08/28/2016 11:31 AM EDT Patient returned from Up to to provide urine sample Helen Duenas RN 08/28/16 1132 Alyson Andres RN - 08/28/2016 10:29 AM EDT Pt reports since Thur developing abd cramping Fever reported 100. Pt reports constipation Last BM 3 days ago ( pt had surgery 4 days for clavicle repair ) Prescribed dilaudid pain control MONAE Love - 08/28/2016 10:19 AM EDT Images from the original note were not included. Date of Emergency Department Visit: 08/28/2016 HISTORY OF PRESENT ILLNESS Triage chief complaint: Abdominal Pain Molly Rios is a 71 y.o.female with past medical history of vein ligation, L clavicular fracture s/p surgical repair 08/24/2016 who presents today with elevated temperature at home yesterday, crampy abdominal pain, and constipation. Patient states that she had a surgical repair of a fractured left clavicle on 08/24/[address] Levy at [facility]. She states that this surgery was without complication. She was discharged home with oral Dilaudid which she took on Tuesday evening as well as Tuesday (3 days ago). She has not taken any Dilaudid since then. She states that yesterday evening, she began to feel feverish and noted that her temperature was 100.0 at home. She states she also developed the gradual onset of constant, crampy, diffuse abdominal pain without alleviating or exacerbating circumstances. There was no associated nausea, vomiting. Patient states that she has been constipated for the past several days, and has not had a formed bowel movement since prior to her surgery. She states the day of the surgery and the following days she did not have any bowel movements, and yesterday and today did experience 2-3 episodes of loose stool. She denies any hematochezia or black/tarry quality to the stool. She states she remains feeling feverish now, but does not have an elevated temperature.Her abdominal pain is entirely resolved. She denies any cough, shortness of breath, pleuritic pain, chest pain, dysuria, urgency, frequency, pain/swelling in the lower extremities, muscle weakness, or numbness/tingling in extremities. REVIEW OF SYSTEMS Constitutional: ( - ) fever; ( - ) chills; ( - ) night sweats Respiratory: ( - ) cough; ( - ) shortness of breath; ( - ) pleuritic pain Cardiovascular: ( - ) chest pain; ( - ) palpitations Gastrointestinal: ( + ) abdominal pain; ( - ) nausea; ( - ) vomiting; ( - ) diarrhea; ( + ) constipation Genitourinary: ( - ) dysuria; ( - ) hematuria; ( - ) urgency; ( - ) frequency; ( - ) flank pain Neurologic: ( - ) focal numbness; ( - ) focal weakness See HPI for additional details. PAST HISTORY Past Medical History She has no past medical history on file. Problem List She does not have a problem list on file. Past Surgical History She has a past surgical history that includes Vein ligation and stripping (Bilateral) and Knee arthroscopy and arthrotomy (Bilateral). Family History Her family history is not on file. Social History She reports that she has quit smoking. She does not have any smokeless tobacco history on file. CURRENT MEDICATIONS AND ALLERGIES Current Medications No current facility-administered medications for this encounter. Current Outpatient Prescriptions: ??? HYDROmorphone (DILAUDID) 2 mg tablet, Take 2 mg by mouth every 4 (four) hours as needed for moderate pain (4-6)., Disp: , Rfl: ??? bisacodyl (DULCOLAX) 10 mg suppository, Insert 1 suppository (10 mg total) into the rectum dailyfor 10 days., Disp: 10 suppository, Rfl: 0 Allergies Hydrocodone-acetaminophen and Oxycodone PHYSICAL EXAMINATION Triage vital signs: Blood pressure 109/69, pulse 85, temperature 98.5 ??F, temperature source Oral, resp. rate 16, SpO2 98 %. Constitutional: Well appearing. No acute distress. Breathing nonlabored. HEENT: Normocephalic. Atraumatic. PERRL. EOMI. Conjunctiva clear. Sclera non- icteric.Oropharynx is non-erythematous. Neck: Supple with normal range of motion. No meningismus. Nontender. No LAD Cardiovascular: RRR without murmurs/rubs/gallops. Normal S1S2. Pulmonary: Normal respiratory rate and effort. CTAB without wheezes/rales/rhonchi/stridor. No accessory muscle use or tripoding. Abdomen: Soft. Nontender. Nondistended. Without rigidity/guarding/masses. No tenderness at McBurney's point. No Weiss's or Rovsing sign. +BS Rectal: Good rectal tone. There is no stool in the vault. Stool is brown and heme negative (control positive). Genitourinary: No CVAT. No suprapubic tenderness. Extremities: L arm in sling. Distally neurovascularly intact. There is no lower extremity swelling or tenderness to palpation. Musculoskeletal: Normal range of motion; no deformities Skin: Warm. Dry. No rashes. Surgical site around L clavicle is clean, dry, and intact. Neurologic: Awake and alert. Good muscle tone. Grossly nonfocal. DATA Radiology X-ray Chest 2 Views Final Result No consolidation, pleural effusion, or pneumothorax. I, the attending physician, attest that I have performed and/or supervised the resident for the dueñas and critical components of this procedure. I have personally reviewed the images pertinent to this examination and agree with the interpretation. Dictated: 08/28/2016 11:59 AM Report ID: [id number] Report signed in external system at 08/28/2016 11:59 Reported By: Jeremiah Trevizo M.D. (resident) - PROVIDER ID: BHANU (BHANU) Signed By: Joshua Arora M.D. - PROVIDER ID: DREA (DREA) Laboratory Labs Reviewed CBC WITH AUTO DIFFERENTIAL - Abnormal Result Value WBC 16.49 (*) RBC 3.90 (*) ABS Neutrophil 13.72 (*) Lymphocytes % 7.0 (*) nRBC 0 HGB 12.3 HCT 36.3 MCV 93.1 MCH 31.5 MCHC 33.9 PLT 337 RDW-CV 14.2 Segmented 83.1 ABS Lymphocyte 1.15 Monocytes % 8.7 Eosinophils % 0.5 Basophil % 0.4 IMM GRAN 0.3 HCG, SERUM, QUALITATIVE - Normal HCG SERUM QUAL Negative LACTIC ACID, PLASMA - Normal LACTATE PLASMA 1.3 URINALYSIS URINE SEDIMENTATION REQUIRED? No Color Light Yellow SG 1.002 pH, Urine 7.0 Albumin Negative Glucose Negative Ketones Negative Blood Negative Nitrite Negative Hyaline Casts Granular Casts WBC CASTS RBC Casts Waxy Casts, Urine Fatty Casts WBC Clumps EPITH CELLS Renal Cells Amorphous Uric Acid Calcium Oxalate Crystals Triple Phosphate Crystals Calcium Carbonate Crystals Calcium Phosphate Crystals Cystine Leucine Tyrosine Mucous Yeast Budding Yeast Hyphae Trichomonas WBC esterase Negative TURBIDITY Clear WBC RBC Unidentified Crystals Bile Negative RAINBOW DRAW Narrative: The following orders were created for panel order [address] draw. Procedure Abnormality Status --------- ------ Gold Top[[id number]] Gold Top[[id number]] Light Blue Top[[id number]] Final result Lavender Top[[id number]] Red Top[[id number]] Please view results for these tests on the individual orders. LIGHT BLUE TOP GOLD TOP GOLD TOP ED COURSE, ASSESSMENT, AND PLAN Emergency Department Course ED Course Value Comment By Time WBC: (!) 16.49 (Reviewed) Alphonso Morton MD 08/28 1145 LACTATE PLASMA: 1.3 (Reviewed) Alphonso Morton MD 08/28 1145 CXR neg Alphonso Morton MD 08/28 1227 Nitrite: Negative (Reviewed) Alphonso Morton MD 08/28 1227 Blood: Negative (Reviewed) Alphonso Morton MD 08/28 1227 Assessment and Plan Molly Rios is a 71 y.o.female with past medical history of vein ligation, L clavicular fracture s/p surgical repair 08/24/2016 who presents today with elevated temperature to 100.0 at home yesterday, constipation several days ago followed by 2-3 loose stools over the past 2 days, and constant,crampy, diffuse abdominal pain last evening which is currently resolved. Physical examination does not reveal any abdominal tenderness. Patient is currently afebrile. Plan is to obtain CBC, BMP, LFTs, lipase, lactate, EKG, and chest x-ray given post-op fever. This patient's abdominal pain has entirely resolved and she is not exhibiting any tenderness to palpation onexamination, do not feel any ultrasound or CT of the abdomen and pelvis is currently indicated in this patient. CBC is significant for white blood cell count of 16.49 with increased absolute neutrophil count. Urinalysis does not reveal any evidence of UTI. Chest x-ray does not show any atelectasis or acute cardiopulmonary etiology. Overall, I feel that patient slightly elevated temperature at home as well as her feverishness and elevated WBC is likely reactive to her recent surgery. We have checked the usual postoperative source of infection and did not find any urinary tract infection or lung consolidation suggestive of infection or atelectasis. She has no lower extremity pain or swelling and no shortness of breath, so I do not suspect that she has a thrombosis. Her surgical site does not appear infection or cellulitic. Patient's abdominal pain is entirely resolved and she remains nontender during her I entire ED course, shedo not believe that any abdominal imaging is warranted. I do suspect, however, that given her history, she is experiencing some constipation which is likely the cause of her abdominal discomfort. She has been using MiraLAX at home, will be prescribed a Dulcolax suppository for additional relief of symptoms. Patient is hemodynamically stable, so I do not believe there is any indication for hospitalization at this time, despite her elevated white blood cell count she does not show any evidence of sepsis or source of infection. I was able to reach the coverage for patient's surgeon at [facility]. I spoke with this individual who states that the patient has actually contacted the surgical service a number of times since her surgery with various concerns, and they are well aware of her postoperative course. They suggested that if patient has any further concerns, she should contact the surgical team, and otherwise may continue with the follow-up as scheduled for of next week. Plan: Discharge patient to home. Continue MiraLAX. Dulcolax suppository once daily. [id number] analgesia for pain, avoid opioid medications to avoid further constipation. Follow-up with surgeon as scheduled. Follow-up with PCP early next week. Detailed return instructions were gone over with the patient and the patient expressed good understanding of the plan. I discussed this case with the ED attending who is in agreement with the plan. Procedures Details of any procedures performed during this visit are documented separately in Procedure Notes. Diagnosis Final diagnoses: [R50.9] Elevated temperature [K59.00] Constipation, unspecified constipation type Disposition Discharge to home. Condition Stable MONAE Love August 28, 2016, 2:50 PM - - - - - - - [...] - - - - - - - All nursing notes and information was reviewed during this visit. Portions of this electronic health record were generated with voice-recognition software. MONAE Love 08/28/16 1450 documented in this encounter Plan of Treatment Not on filedocumented as of this encounter Procedures Procedure Name Priority Date/Time Associated Comments Diagnosis URINALYSIS STAT 08/28/2016 11:35 Results for this AM EDT procedure are i n the results section. XR CHEST 2 VW STAT 08/28/2016 11:34 Results fo r this AM EDT procedure are i n the results section. LIGHT BLUE TOP STAT 08/28/2016 10:48 AM EDT RAINBOW DRAW STAT 08/28/2016 10:48 Results for this AM EDT procedure are i n the results section. CBC WITH AUTO STAT 08/28/2016 10:47 Results fo r this DIFFERENTIAL AM EDT procedure are i n the results section. HCG, SERUM, STAT 08/28/2016 10:47 Results for this QUALITATIVE AM EDT procedure are i n the results section. LACTIC ACID, PLASMA STAT 08/28/2016 10:46 Resu lts for this AM EDT procedure are i n the results section. documented in this encounter Results Urinalysis (08/28/2016 11:35 AM EDT) Analysis Performed At Patho logist Time Signature URINE No 08/28/2016 [facility] SEDIMENTATION 12:27 PM HOSPITAL REQUIRED? EDT LABORATORY Color Light 08/28/2016 [facility] Yellow 12:27 PM HOSPITAL EDT LABORATORY SG 1.002 1.002 - 08/28/2016 [facility] 1.030 12:27 PM [facility] EDT LABORATORY pH, Urine 7.0 5.0 - 8.0 08/28/2016 [facility] 12:27 PM [facility] Albumin Negative 08/28/2016 [facility] 12:27 PM [facility] EDT [facility] Glucose Negative Negative 08/28/2016 [facility] 12:27 PM [facility]T [facility] Ketones Negative Negative 08/28/2016 [facility] 12:27 PM [facility] EDT [facility] Blood Negative Negative 08/28/2016 [facility] 12:27 PM [facility] EDT [facility] Nitrite Negative Negative 08/28/2016 [facility] 12:27 PM [facility] EDT LAB[facility]ORY Hyaline Casts 0 - 5 /LPF LAB 08/28/2016 [facility] URINALYSIS - 12:27 PM [facility] AUTOMATED EDT LABORATORY METHOD Granular Casts 0 - 2 /LPF LAB 08/28/2016 [facility] URINALYSIS - 12:27 PM [facility] AUTOMATED EDT LABORATORY METHOD WBC CASTS None Seen LAB 08/28/2016 [facility] /[facility] URINALYSIS - 12:27 PM [facility] AUTOMATED EDT LABORATORY METHOD RBC Casts None Seen LAB 08/28/2016 [facility] /[facility] URINALYSIS - 12:27 PM [facility] AUTOMATED EDT LABORATORY METHOD Waxy Casts, None Seen LAB 08/28/2016 [facility] Urine /LP[facility] URINALYSIS - 12:27 PM [facility] AUTOMATED EDT LABORATORY METHOD Fatty Casts None Seen LAB 08/28/2016 [facility] /LPF URINALYSIS - 12:27 PM [facility] AUTOMATED EDT LABORATORY METHOD WBC Clumps None Seen LAB 08/28/2016 [facility] /[facility] URINALYSIS - 12:27 PM [facility] AUTOMATED EDT LABORATORY METHOD EPITH CELLS 0 - 5 /HPF LAB 08/28/2016 [facility] URINALYSIS - 12:27 PM [facility] AUTOMATED EDT LABORATORY METHOD Renal Cells None Seen LAB 08/28/2016 [facility] /[facility] URINALYSIS - 12:27 PM [facility] AUTOMATED EDT LABORATORY METHOD Amorphous None Seen LAB 08/28/2016 [facility] /[facility] URINALYSIS - 12:27 PM [facility] AUTOMATED EDT LABORATORY METHOD Uric Acid None Seen LAB 08/28/2016 [facility] /[facility] URINALYSIS - 12:27 PM [facility] AUTOMATED EDT LABORATORY METHOD Calcium Oxalate None Seen LAB 08/28/2016 [facility] Crystals /[facility] URINALYSIS - 12:27 PM [facility] AUTOMATED EDT LABORATORY METHOD Triple Phosphate None Seen LAB 08/28/2016 [facility] Crystals /[facility] URINALYSIS - 12:27 PM [facility] AUTOMATED EDT LABORATORY METHOD Calcium None Seen LAB 08/28/2016 [facility] Carbonate /[facility] URINALYSIS - 12:27 PM [facility] AUTOMATED EDT LABORATORY METHOD Calcium None Seen LAB 08/28/2016 [facility] Phosphate /[facility] URINALYSIS - 12:27 PM [facility] AUTOMATED EDT LABORATORY METHOD Cystine None Seen LAB 08/28/2016 [facility] URINALYSIS - 12:27 PM [facility] AUTOMATED EDT LABORATORY METHOD Leucine None Seen LAB 08/28/2016 [facility] URINALYSIS - 12:27 PM [facility] AUTOMATED EDT LABORATORY METHOD Tyrosine None Seen LAB 08/28/2016 [facility] URINALYSIS - 12:27 PM [facility] AUTOMATED EDT LABORATORY METHOD Mucous None Seen LAB 08/28/2016 [facility] /[facility] URINALYSIS - 12:27 PM [facility] AUTOMATED EDT LABORATORY METHOD Yeast Budding None Seen LAB 08/28/2016 [facility] URINALYSIS - 12:27 PM [facility] AUTOMATED EDT LABORATORY METHOD Yeast Hyphae None Seen LAB 08/28/2016 [facility] URINALYSIS - 12:27 PM [facility] AUTOMATED EDT LABORATORY METHOD Trichomonas None Seen LAB 08/28/2016 [facility] URINALYSIS - 12:27 PM [facility] AUTOMATED EDT LABORATORY METHOD WBC esterase Negative 08/28/2016 [facility] 12:27 PM [facility] EDT LABORATORY TURBIDITY Clear CLEAR 08/28/2016 [facility] 12:27 PM [facility] EDT LABORATORY WBC 0 - 5 /HPF LAB 08/28/2016 [facility] URINALYSIS - 12:27 PM [facility] AUTOMATED EDT LABORATORY METHOD RBC 0 - 5 /HPF LAB 08/28/2016 [facility] URINALYSIS - 12:27 PM [facility] AUTOMATED EDT LABORATORY METHOD Unidentified None Seen LAB 08/28/2016 [facility] URINALYSIS - 12:27 PM [facility] AUTOMATED EDT LABORATORY METHOD Bile Negative 08/28/2016 [facility] 12:27 PM [facility] EDT LABORATORY Specimen Anatomical Collection Method Collection Time Receive d Time (Source) Location / / Volume Laterality Urine Urine specimen Non-blood 08/28/2016 11:35 7 collection, clean Collection / AM EDT 11:39 AM E DT catch / Unknown Unknown Alphonso Morton MD LAB URINE ORDERABLES Performing Organization Address City/State/ZIP Code Phon e Number [facility] [address] [place], [place] [address] LABORATORY X-ray Chest 2 Views (08/28/2016 11:34 AM EDT) Anatomical Region Laterality Modality Chest Radiographic Imaging Specimen (Source) Anatomical Collection Method Collection Time Re ceived Time Location / / Volume Laterality 08/28/2016 11:20 AM EDT Impressions 08/28/2016 11:59 AM EDT No consolidation, pleural effusion, or pneumothorax. I, the attending physician, attest that I have performed and/or supervised the resident for the dueñas and critical components of this procedure. I have personally reviewed th e images pertinent to this examination and agree with the interpret ation. Dictated: 08/28/2016 11:59 AM Report ID: [id number] Report signed in external system at 08/28 11:59 Reported By: Jeremiah Trevizo M.D. (avani poole) - PROVIDER ID: BHANU (BHANU) Signed By: Joshua Arora M.D. - PRO VIDER ID: [email or web address] ([email or web address]) Narrative 08/28/2016 11:59 AM EDT RESPONSIBLE LAB TESTER: Joshua Arora M.D. - PROVIDER ID: G LOREE EXAMINATION: XR CHEST 2 VW CLINICAL INDICATION: Postoperative fever. TECHNIQUE: Two views of the chest. COMPARISON: None. FINDINGS: The patient is status post ORIF of the l eft clavicle. There is no focal consolidation or pulm onary edema. ??There is no pleural effusion or pneumothorax. ??There is mild bilateral increased lung volumes and flattening of the diaphragms most consistent with COPD. There is a likely small axial hiatal her feliberto. ??The cardiac and mediastinal contour is otherwise normal. ??The bones are otherwise within normal limits with mild degenerative changes in the thoracolumbar spine. Procedure Note Joshua Arora MD - 08/28/2016Forma tting of this note might be different from the original. RESPONSIBLE LAB TESTER: Joshua Arora M.D. - PROVIDER ID: G OLDNATAHSA EXAMINATION: XR CHEST 2 VW CLINICAL INDICATION: Postoperative fever. TECHNIQUE: Two views of the chest. COMPARISON: None. FINDINGS: The patient is status post ORIF of the l eft clavicle. There is no focal consolidation or pulm onary edema. There is no pleural effusion or pneumothorax. There is mild bilateral increased lung volumes and flattening of the diaphragms most consistent with COPD. There is a likely small axial hiatal her feliberto. The cardiac and mediastinal contour is otherwise normal. The bones are otherwise within normal limits with mild degenerative changes in the thoracolumbar spine. IMPRESSION: No consolidation, pleural effusion, or p neumothorax. I, the attending physician, attest that I have performed and/or supervised the resident for the dueñas and critical components of this procedure. I have personally reviewed e images pertinent to this examination and agree with the interpret ation. Dictated: 08/28/2016 11:59 AM Report ID: [id number] Report signed in external system at 08/28 11:59 Reported By: Jeremiah Trevizo M.D. (resi dent) - PROVIDER ID: BHANU (BHANU) Signed By: Joshua Arora M.D. - PRO VIDER ID: [email or web address] ([email or web address]) Trent LICONA IMG XR PROCEDURES Light Blue Top (08/28/2016 10:48 AM EDT) Specimen Anatomical Collection Method / Collection Time Recei nancy Time (Source) Location / Volume Laterality Blood Venous blood / Venipuncture / 08/28/2016 10:48 017 Unknown Unknown AM EDT 10:58 AM EDT Alphonso Morton MD LAB BLOOD ORDERABLES Performing Organization Address City/State/ZIP Code Phon e Number [place] [id number] LABORATORY hCG, serum, qualitative (08/28/2016 10:47 AM EDT) Analysis Performed At Patho logist Time Signature HCG SERUM QUAL Negative Negative 08/28/2016 [facility] 11:42 AM EDT [facility] LAB[facility]ORY Specimen Anatomical Collection Method / Collection Time Recei nancy Time (Source) Location / Volume Laterality Blood Venous blood / Venipuncture / 08/28/2016 10:47 017 Unknown Unknown AM EDT 10:57 AM EDT Alphonso Morton MD LAB BLOOD ORDERABLES Performing Organization Address City/[facility]/ZIP [facility] Phon e Number [place] [id number] LABORATORY (ABNORMAL) CBC auto differential (08/28/2016 10:47 AM EDT) [facility] Method Time Signature WBC 16.49 (H) 4.0 - 08/28/2016 [facility] 10.8 11:13 AM EDT HOSPITAL 10*3/uL LABORATORY nRBC 0 0 - 0 08/28/2016 [facility] /100 WBCs 11:13 AM EDT HOSPITAL LABORATORY RBC 3.90 (L) 4.20 - 08/28/2016 [facility] 5.40 11:13 AM EDT HOSPITAL 10*6/uL LABORATORY HGB 12.3 12.0 - 08/28/2016 [facility] 16.0 g/dL 11:13 AM EDT HOSPITAL LABORATORY HCT 36.3 35.0 - 08/28/2016 [facility] 48.0 % 11:13 AM EDT HOSPITAL LABORATORY MCV 93.1 81.0 - 08/28/2016 [facility] 99.0 fL 11:13 AM EDT HOSPITAL LABORATORY MCH 31.5 26.0 - 08/28/2016 [facility] 33.0 pg 11:13 AM EDT HOSPITAL LABORATORY MCHC 33.9 32.0 - 08/28/2016 [facility] 36.0 g/dL 11:13 AM EDT HOSPITAL LABORATORY PLT 337 150 - 350 08/28/2016 [facility] 10*3u/L 11:13 AM EDT [facility] LABORATORY RDW-CV 14.2 11.5 - 08/28/2016 [facility] 14.5 % 11:13 AM EDT HOSPITAL LABORATORY Segmented % 83.1 30.0 - 08/28/2016 [facility] 85.0 % 11:13 AM EDT HOSPITAL LABORATORY ABS Neutrophil 13.72 (H) 1.5 - 6.5 08/28/2016 [facility] 10*3/uL 11:13 AM EDT HOSPITAL LABORATORY Lymphocytes % 7.0 (L) 15.0 - 08/28/2016 [facility] 50.0 % 11:13 AM EDT HOSPITAL LABORATORY ABS Lymphocyte 1.15 1.0 - 3.7 08/28/2016 [facility] 10*3u/L 11:13 AM EDT HOSPITAL LABORATORY Monocytes % 8.7 0.0 - 08/28/2016 [facility] 10.0 % 11:13 AM EDT HOSPITAL LABORATORY Eosinophils % 0.5 % 08/28/2016 [facility] 11:13 AM EDT HOSPITAL LABORATORY Basophil % 0.4 0.0 - 2.0 08/28/2016 [facility] % 11:13 AM EDT HOSPITAL LABORATORY IMM GRAN 0.3 0.0 - 1.0 08/28/2016 [facility] % 11:13 AM EDT HOSPITAL LABORATORY Specimen Anatomical Collection Method / Collection Time Recei nancy Time (Source) Location / Volume Laterality Blood Venous blood / Venipuncture / 08/28/2016 10:47 017 Unknown Unknown AM EDT 10:54 AM EDT Alphonso Morton MD LAB BLOOD ORDERABLES Performing Organization Address City/State/ZIP Code Phon e Number [address] [address] LABORATORY Lactic acid, plasma (08/28/2016 10:46 AM EDT) P athologist Signature LACTATE 1.3 0.7 - 2.1 08/28/2016 [facility] mmol/L 11:37 AM [facility] Specimen Anatomical Collection Method / Collection Time Recei nancy Time (Source) Location / Volume Laterality Blood Venous blood / Venipuncture / 08/28/2016 10:46 017 Unknown Unknown AM EDT 10:54 AM EDT Alphonso Morton MD LAB BLOOD ORDERABLES Performing Organization Address City/State/ZIP Code Phon e Number [address] [address] LABORATORY documented in this encounter Visit Diagnoses Diagnosis Elevated temperature - Primary Fever, unspecified Constipation, unspecified constipation t ype documented in this encounter Care Teams Diver Helper Relationship Specialty Start Date End Date Lisa Sotelo MD PCP - General Family Medicine 08/19/16 03/01/18 [facility] [place] [address] documented as of this encounter
--- OUTSIDE RECORDS SUMMARY | 2021-07-22 20:19 | XMS_ITS | Encounter Summary ---
:1945 Author Organization [facility] Address [address] [facility], [address] [place] [address] Care Team Providers Name Role Phone Lisa Sotelo MD Primary Care Provider Encounter Details Date Type Department Care Team Description 06/17/2017 Scan Document - View [facility] Lisa Sotelo, in Chart Practice [address] [place], [place] [id number] [place], [place] [phone] Social History Tobacco Use Types Packs/Day Years [...] on filedocumented in this encounter Care Teams Yard Crane Operator Relationship Specialty Start Date End Date Lisa Sotelo MD PCP - General Family Medicine 08/19/16 03/01/[address] [place] [address] documented as of this encounter
--- OUTSIDE RECORDS SUMMARY | 2021-07-22 20:19 | XMS_ITS | Encounter Summary ---
:1945 Author Organization [facility] Address [address] [facility], [address] [place] [address] Care Team Providers Name Role Phone Lisa Sotelo MD Primary Care Provider Encounter Details Date Type Department Care Team Description 07/07/2017 Refill [facility] actice Lisa Sotelo MD [address] [place], [place] [id number] [place] [address] [phone] (Wo rk) Social History Tobacco Use Types [...] on filedocumented in this encounter Care Teams Sign Fabricator Relationship Specialty Start Date End Date Lisa Sotelo MD PCP - General Family Medicine 08/19/16 03/01/[address] [place] [address] documented as of this encounter
--- OUTSIDE RECORDS SUMMARY | 2021-07-22 20:19 | XMS_ITS | Encounter Summary ---
:1945 Author Organization [facility] Address [address] [facility], [address] [place] [address] Care Team Providers Name Role Phone Laurie Elias NP Primary Care Provider Encounter Details Date Type Department Care Team Description 02/17/2018 Scan Document - View [facility] Practice ANN Krishnamurthy [address] [place], [place] [address] [place], [place] [phone] Social History Tobacco Use Types Packs/Day Years [...] on filedocumented in this encounter Care Teams Testing Machine Operator Relationship Specialty Start Date End Date Laurie Elias NP PCP - General Family Medicine 03/02/18 11/19/[address] [place] [phone] documented as of this encounter
--- OUTSIDE RECORDS SUMMARY | 2021-07-22 20:19 | XMS_ITS | Encounter Summary ---
:1945 Author Organization [facility] Address [address] [facility], [address] [place] [address] Care Team Providers Name Role Phone Lisa Sotelo MD Primary Care Provider Reason for Referral Diagnostic Imaging (Routine) - Closed Specialty Diagnoses / Procedures Referred By Contact Refer red To Contact Radiology Diagnoses Osteopenia of neck of left femur Lisa Sotelo MD Procedures DEXA Bone Density [facility] [address] [place] [address] Referral ID Status Reason Start Date Expiration Date Visits Requ ested Visits Authorized [id number] Closed 01/16/2018 01/16/2019 1 1 Reason for Visit Diagnostic Imaging (Routine) - Closed Specialty Diagnoses / Procedures Referred By Contact Refer red To Contact Radiology Diagnoses Osteopenia of neck of left femur Lisa Sotelo MD Procedures DEXA Bone Density [facility] [address] [place] [address] Referral ID Status Reason Start Date Expiration Date Visits Requ ested Visits Authorized [id number] Closed 01/16/2018 01/16/2019 1 1 Encounter Details Date Type Department Care Team Description 01/18/2018 Hospital Encounter [facility]essa Sotelo a of neck of Hospital DXA MD Lisa left femur [address] [phone] Social History Tobacco Use Types Packs/Day [...] mouth daily. unit capsule clonazePAM (KlonoPIN) Take 1 tablet (0.5 mg 28 tablet 0 12/201701/25/2018 0.5 mg tablet total) by mouth nightly. diclofenac sodium 3 % PRN 0 06/23/201701/2018 gel documented as of this encounter Plan of Treatment Not on filedocumented as of this encounter Procedures Procedure Name Priority Date/Time Associated Diagnosis Comme nts DEXA BONE DENSITY Routine 01/18/2018 1:37 PM Osteopenia of nec k Results for this CENTRAL EST of left femur procedure are in the results section. documented in this encounter Results DEXA Bone Density [facility] (01/18/2018 1:37 PM EST) Anatomical Region Laterality Modality Hip, L-spine N/A Digital Radiography Specimen (Source) Anatomical Collection Method Collection Time Re ceived Time Location / / Volume Laterality 01/18/2018 1:15 PM EST Impressions 01/18/2018 2:16 PM EST Based on the WHO definition above, there is normal bone mineral density seen within the lumbar spine. ??Mild osteopenia is noted within the right hip which is at increased fracture risk.. ?? (See separa tely mailed data sheets). Dictated: 01/18/2018 2:16 PM Report ID: [id number] Report signed in external system at 06/2017 14:16 Reported By: Ankit Richey M.D. (SCHJ 1) Signed By: Ankit Richey M.D. ([email or web address]) Narrative 01/18/2018 2:16 PM EST RESPONSIBLE FOREST FIRE WARDEN: Ankit Richey M.D. EXAMINATION: DEXA BONE DENSITY CENTRAL CLINICAL INDICATION: Osteopenia. ??Postmenopausal female. TECHNIQUE: Dual Energy X-Ray Absorptiometry (DEXA t echnique) was performed with measurements of the right hip and lumbar spine. GENERAL INFORMATION FOR BONE DENSITOMETR Y: BMD [...] within the expected range for age. COMPARISON: 2015 FINDINGS: L-Spine: T-score -0.5 Z-score 1.7. ??This represents a 0.1% im provement from the prior examination. Right Femoral Neck: BMD 0.725 g/cm?? T-score -1.1 Z-score 0.7 Right Hip: T-score -1.1 Z-score 0.4. ??This represents a 1.1% im provement from the prior examination. Procedure Note Ankit Richey MD - 01/18/2018Forma tting of this note might be different from the original. RESPONSIBLE FOREST FIRE WARDEN: Ankit Richey M.D. EXAMINATION: DEXA BONE DENSITY CENTRAL CLINICAL INDICATION: Osteopenia. Postmenopausal female. TECHNIQUE: Dual Energy X-Ray Absorptiometry (DEXA t echnique) was performed with measurements of the right hip and lumbar spine. GENERAL INFORMATION FOR BONE DENSITOMETR Y: BMD [...] within the expected range for age. COMPARISON: 2015 FINDINGS: L-Spine: T-score -0.5 Z-score 1.7. This represents a 0.1% impr ovement from the prior examination. Right Femoral Neck: BMD 0.725 g/cm?? T-score -1.1 Z-score 0.7 Right Hip: T-score -1.1 Z-score 0.4. This represents a 1.1% impr ovement from the prior examination. IMPRESSION: Based on the WHO definition above, there is normal bone mineral density seen within the lumbar spine. Mild osteopenia is noted within the right hip which is at increased fracture risk.. (See separately mailed data sheets). Dictated: 01/18/2018 2:16 PM Report ID: [id number] Report signed in external system at 06/2017 14:16 Reported By: Ankit Richey M.D. (SCHJ 1) Signed By: Ankit Richey M.D. ([email or web address]) Lisa Sotelo MD IMG DXA PROCEDURES documented in this encounter Visit Diagnoses Diagnosis Osteopenia of neck of left femur documented in this encounter Care Teams Manager Document Control Relationship Specialty Start Date End Date Lisa Sotelo MD PCP - General Family Medicine 08/19/16 03/01/[address] [place] [address] documented as of this encounter
--- OUTSIDE RECORDS SUMMARY | 2021-07-22 20:19 | XMS_ITS | Encounter Summary ---
:1945 Author Organization [facility] Address [address] [facility], [address] [place] [address] Care Team Providers Name Role Phone Lisa Sotelo MD Primary Care Provider Encounter Details Date Type Department Care Team Description 01/16/2018 Travel Social History Tobacco Use Types Packs/Day [...] on filedocumented in this encounter Care Teams Adult Basic Education Teacher Relationship Specialty Start Date End Date Lisa Sotelo MD PCP - General Family Medicine 08/19/16 03/01/18 [address] [place] [address] documented as of this encounter
--- OUTSIDE RECORDS SUMMARY | 2021-07-22 20:19 | XMS_ITS | Encounter Summary ---
:1945 Author Organization [facility] Address [address] [facility], [address] [place] [address] Care Team Providers Name Role Phone Kevin Miranda MD Primary Care Provider Reason for Visit Reason Comments Med Refill Encounter Details Date Type Department Care Team Description 06/06/2017 Refill [facility] Pr Lisa Gudino MD [facility] [address] [address] [place] [address] [phone] (Wo rk) Social History Tobacco Use Types [...] on filedocumented in this encounter Care Teams Oil Field Roustabout Relationship Specialty Start Date End Date Kevin Miranda MD PCP - General Family Medicine 11/20/[address] [place] [phone] documented as of this encounter
--- OUTSIDE RECORDS SUMMARY | 2021-07-22 20:19 | XMS_ITS | Encounter Summary ---
:1945 Author Organization [facility] Address [address] [facility], [address] [place] [address] Care Team Providers Name Role Phone Lisa Sotelo MD Primary Care Provider Reason for Visit Reason Comments Follow-up Encounter Details Date Type Department Care Team Description 03/31/2017 Office Visit Lisa Newtno, Insomni a, unspecified type (Primary Dx); Practice MD Anxiety and depression; [address] Osteopenia, unspecified location; [place] [address] [place] [phone] Social History Tobacco Use Types Packs/Day Years Used Date Former Smoker Smokeless Tobacco: Never Used Alcohol Use Standard Drinks/Week Comments Defer 0 (1 standard drink = 0.6 oz pure alcoho l) Sex Assigned at Date Recorded Female 04/12/2019 2:19 PM EST documented as of this encounter Last Filed Vital Signs Vital Sign Reading Time Taken Comments Blood Pressure 110/60 03/31/2017 11:20 AM EST Pulse 55 03/31/2017 11:20 AM EST Temperature 37.1 ??C (98.7 ??F) 03/31/2017 11:20 AM EST Respiratory Rate - - Oxygen Saturation 98% 03/31/2017 11:20 AM EST Inhaled Oxygen Concentration - - Weight 60.6 kg (133 lb 9.6 oz) 03/31/2017 11:20 AM EST Height 170.8 cm (5' 7.25) 03/31/2017 11:20 AM EST Body Mass Index 20.77 03/31/2017 11:20 AM EST documented in this encounter Progress Notes Lisa Sotelo - 03/31/2017 11:00 AM EST More follow up questions: Anxiety and depression: Realizes she is anxious much of the time, not only if son has relapse of drug use. She had nightmares from Paroxetine in the past. I suggested she try Sertraline (also mentionedEscitalopram) 12.5 mg daily. She will let me know how she does. Insomnia: She is going to try without Doxepin, has started medical MJ application which I will fill out to send back to [facility] in [place]. Osteopenia; Her own records say she always had right hip scanned, whereas 2015 DEXA scanned leftfemur. She wonders if she soul get rescanned. I told her we should wait until 2 yrs (fall 2017). I also gave her list of calcium-rich foods with goal of 1200 mg daily. She wonders if she should be tested for celiac disease, as a friend who had no sx but with osteoporosis was tested and is +. As pt's osteopenia is chronic, and not so severe, aside from not having sx or other lab abnormalities, this isnot necessary at this time Rosacea: Just diagnosed by Dr. Rosenberg, who prescribed Metrogel cream. She is upset that hse might have to treat the condition for life. Some thought that Retin-A cream she used in the past might have triggered this. I tried to reassure her that having rosacea (nor flagrantly noticeable) is not somethng to get upset about, in the big scheme of things. Family h/o unanticipated cardiac disease: See last note. I again suggested she see a machine stripper cutter [facility] to discuss more sophisticated testing. IN perusing old record, Dr. Trevizo had made the same suggestion 11/2015. addendum after patient had left. Perusal of old chart reveals that she was started on Sglpuucwpid95.5 mg dailyby psychopharmacologist in 2004 for depression. In 2008 Our note note says she had little effect from it, nor from Sertraline, and she was given Escitalopram, which made her more anxious, so she stopped it. It appears she stayed on Venlafaxine for awhile, tap;ered it slowly to stop. By 03/2010 she is taking 0.5 mg Clonazepam daily and was started on Citalopram 5 mg daily (very sensitive to meds), which made her drowsy, didn't help depression (soon was still in crisis) and med was changedto Fluoxetine 10 mg daily. 12/2011 HENRI is is taking Sertraline 12.5-25 mg daily. Remeron 15 mg was started for sleep problems, which compounded her depression and anxiety 02/2013. Doxepin was tired 02/2015 to help her sleep through the night and not ruminate when she woke up middle of the night She has seen Sorin Gage MD and Leandra Parry, pHD for mental health issues. documented in this encounter Plan of Treatment Not on filedocumented as of this encounter Visit Diagnoses Diagnosis Insomnia, unspecified type - Primary Anxiety and depression Osteopenia, unspecified location Rosacea documented in this encounter Care Teams Strategic Marketing Specialist Relationship Specialty Start Date End Date Lisa oStelo MD PCP - General Family Medicine 08/19/16 03/01/[address] [place] [phone] documented as of this encounter
--- OUTSIDE RECORDS SUMMARY | 2021-07-22 20:19 | XMS_ITS | Encounter Summary ---
:1945 Author Organization [facility] Address [address] [facility], [address] [place] [address] Care Team Providers Name Role Phone Laurie Elias NP Primary Care Provider Encounter Details Date Type Department Care Team Description 03/02/2018 Orders Only [facility] Pr actice Laurie Elias, VAN DRIVER HELPER [address] [place] [address] [facility] [phone] Practice [place], [place] [address] (Wo rk) Social History [...] Procedure Name Priority Date/Time Associated Comments Diagnosis [facility] - CBC (INCLUDES Routine 03/02/2018 3:15 PM Results for this DIFFERENTIAL AND EST procedure a re in PLATELETS) the results section. BASIC METABOLIC PANEL Routine 03/02/2018 3:15 PM Results for this EST procedure are i n the results section. documented in this encounter Results [facility] - CBC (with Differential and Platelets) (03/02/2018 3:15 PM EST) Analysis Performed At [facility] Time Signature White Blood TNP [place] [facility] Count L [facility] Comment: * Test not performed. ? * * Duplicate test. ? * Specimen Anatomical Collection Method Collection Time Receive d Time (Source) Location / / Volume Laterality 03/02/2018 3:15 PM 9 3:18 EST PM EST Laurie Elias NP LAB BLOOD ORDERABLES Performing Organization Address [facility] Phon e Number [employer] [address] [place] [address] [place] [address] [address] [phone] Diagnost Basic metabolic panel (03/02/2018 3:15 PM EST) P athologist Signature Glucose TNP mg/dL [facility] [place] [facility] Diagnost Comment: * Test not performed. ? * * Duplicate test. ? * Specimen Anatomical Collection Method Collection Time Receive d Time (Source) Location / / Volume Laterality 03/02/2018 3:15 PM 9 3:18 EST PM EST Laurie Elias NP LAB BLOOD ORDERABLES Performing Organization Address [facility] Phon e Number [employer] [address] [place] [address] [place] [address] [address] [phone] Diagnost documented in this encounter Visit Diagnoses Not on filedocumented in this encounter Care Teams Blind Escort Relationship Specialty Start Date End Date Laurie Elias NP PCP - General Family Medicine 03/02/18 11/19/19 [address] [place] [address] documented as of this encounter
--- OUTSIDE RECORDS SUMMARY | 2021-07-22 20:19 | XMS_ITS | Encounter Summary ---
:1945 Author Organization [facility] Address [address] [facility], [address] [place] [address] Care Team Providers Name Role Phone Lisa Sotelo MD Primary Care Provider Reason for Visit Reason Comments Rash on face Encounter Details Date Type Department Care Team Description 01/17/2017 Office Visit [facility] Dermatitis of face Practice ANN Krishnamurthy (Primary Dx) [address] [place] [address] [place], [place] [phone] Social History Tobacco Use Types Packs/Day Years Used Date Former Smoker Smokeless Tobacco: Never Used Alcohol Use Standard Drinks/Week Comments Defer 0 (1 standard drink = 0.6 oz pure alcoho l) Sex Assigned at Date Recorded Female 04/12/2019 2:19 PM EST documented as of this encounter Last Filed Vital Signs Vital Sign Reading Time Taken Comments Blood Pressure 94/60 01/17/2017 12:05 PM EST Pulse 76 01/17/2017 12:05 PM EST Temperature 37.2 ??C (99 ??F) 01/17/2017 12:05 PM EST Respiratory Rate - - Oxygen Saturation 98% 01/17/2017 12:05 PM EST Inhaled Oxygen Concentration - - Weight 59 kg (130 lb) 01/17/2017 12:05 PM EST Height - - Body Mass Index 20.06 09/21/2016 2:38 PM EDT documented in this encounter Progress Notes Yessy William NP - 01/17/2017 11:45 AM EST Subjective HPI: Molly Rios is a 71 y.o. female who presents for a facial rash. It has occurred after dinnerthe past 6 nights in a row. Her face gets red and feels flushed and hot; left cheek is worse than the right. It gradually fades over the course of the evening. No itch, hives, bumps. No rash elsewhere.She has tried eliminating wine with dinner and eating foods that are not hot, without success. Hasn't had any spicy foods. Breakfast and lunch are fine, despite having hot foods at those meals sometimes during these 6 days. No medications, although she re-started Doxepin for sleep. Her stress level ishigh because her son is struggling with mental health issues and he lives with her. Review of Systems See HPI Objective BP 94/60 (BP Location: Left arm, Patient Position: Sitting) Pulse 76 Temp 37.2 ??C (99 ??F) (Oral) Wt 130 lb (59 kg) SpO2 98% BMI 20.06 kg/m2 Physical Exam Face: faint roughness and erythema on both cheeks, more noticeable on the left, as well as the nose.No welts, papules, vesicular eruptions. A photo on her phone from last night shows a similar distribution, but brighter red rash. Assessment/Plan Problem List Items Addressed This Visit None Visit Diagnoses Dermatitis of face - Primary This is most likely rosacea, but she has an appointment with her court registry officer later today and will discuss further with her. No lab work needed at our appointment. Follow up prn. Yessy William NP documented in this encounter Plan of Treatment Not on filedocumented as of this encounter Visit Diagnoses Diagnosis Dermatitis of face - Primary documented in this encounter Care Teams Television Actor Relationship Specialty Start Date End Date Lisa Sotelo MD PCP - General Family Medicine 08/19/16 03/01/18 [address] [place] [address] documented as of this encounter
--- OUTSIDE RECORDS SUMMARY | 2021-07-22 20:19 | XMS_ITS | Encounter Summary ---
:1945 Author Organization [facility] Address [address] [facility], [address] [place] [address] Care Team Providers Name Role Phone Kevin Miranda MD Primary Care Provider Reason for Visit Reason Comments Med Refill Encounter Details Date Type Department Care Team Description 11/27/2017 Refill [facility] Pr Lisa Gudino MD [facility] [address] [address] [place] [address] [phone] (Wo rk) Social History Tobacco Use Types [...] on filedocumented in this encounter Care Teams Timber Sizer Relationship Specialty Start Date End Date Kevin Miranda MD PCP - General Family Medicine 11/20/[address] [place] [address] documented as of this encounter
--- OUTSIDE RECORDS SUMMARY | 2021-07-22 20:19 | XMS_ITS | Encounter Summary ---
:1945 Author Organization [facility] Address [address] [facility], [address] [place] [address] Care Team Providers Name Role Phone Lisa Sotelo MD Primary Care Provider Reason for Referral Diagnostic Imaging (Routine) - Closed Specialty Diagnoses / Procedures Referred By Contact Refer red To Contact Diagnoses Right hip pain Right groin pain Yasmine Shaw MD Procedures X-ray Hip 2-3 Views Right (Pelvis Optional) [facility] [address] [facility] [place] [address] Referral ID Status Reason Start Date Expiration Date Visits Requ ested Visits Authorized [id number] Closed 07/22/2017 07/22/2018 1 1 Reason for Visit Diagnostic Imaging (Routine) - Closed Specialty Diagnoses / Procedures Referred By Contact Refer red To Contact Diagnoses Right hip pain Right groin pain Yasmine Shaw MD Procedures X-ray Hip 2-3 Views Right (Pelvis Optional) [employer] [facility] [facility] [address] [employer] [address] Referral ID Status Reason Start Date Expiration Date Visits Requ ested Visits Authorized [id number] Closed 07/22/2017 07/22/2018 1 1 Encounter Details Date Type Department Care Team Description 07/22/2017 Hospital Encounter Yasmine West, Right hip pain; Hospital X-ray at Right groin pain [address] [facility] [address] [facility] [place] [place] [facility] [phone] [place] [address], [place] [address] Social History Tobacco Use Types Packs/Day Years [...] (VITAMIN D3) 1,000 mouth daily. unit capsule CHOLECALCIFEROL, VITAMIN Take by mouth. 0 11/01/2017 D3, ORAL diclofenac sodium 3 % PRN 0 06/23/201701/2018 gel doxepin (SINEquan) 10 mg Take 1 capsule (10 30 capsule 2 11/01/2017 capsule mg total) by mouth nightly. documented as of this encounter Plan of Treatment Not on filedocumented as of this encounter Procedures Procedure Name Priority Date/Time Associated Diagnosis Comme nts XR HIP 2-3 VW RIGHT Routine 07/22/2017 10:41 AM Right hi p pain Results for this (PELVIS OPTIONAL) EDT Right groin pain proced ure are in the results section. documented in this encounter Results X-ray Hip 2-3 Views Right (Pelvis Optional) (07/22/2017 10:41 AM EDT) Anatomical Region Laterality Modality Hip, Pelvis Right Digital Radiography Specimen (Source) Anatomical Collection Method Collection Time Re ceived Time Location / / Volume Laterality 07/22/2017 10:45 AM EDT Impressions 07/22/2017 10:45 AM EDT Minor degenerative change. Dictated: 07/22/2017 10:45 AM Report ID: [id number] Report signed in external system at 07/22 10:45 Reported By: Wale Faustin M.D. (TAMICA P) Signed By: Wale Faustin M.D. (ROGP) Narrative 07/22/2017 10:45 AM EDT RESPONSIBLE EFFERVESCENT SALTS COMPOUNDER: Wale Faustin M.D. EXAMINATION: XR HIP 2-3 [...] might be different from the original. RESPONSIBLE EFFERVESCENT SALTS COMPOUNDER: Wale Faustin M.D. EXAMINATION: XR HIP 2-3 [...] change. Dictated: 07/22/2017 10:45 AM Report ID: [id number] Report signed in external system at 07/22 10:45 Reported By: Wale Faustin M.D. (TAMICA P) Signed By: Wale Faustin M.D. (ROGP) Yasmine Shaw MD IMG XR PROCEDURES documented in this encounter Visit Diagnoses Diagnosis Right hip pain Pain in joint, pelvic region and thigh Right groin pain Abdominal pain, right lower quadrant documented in this encounter Care Teams Supervisor Customer Complaint Service Relationship Specialty Start Date End Date Lisa Sotelo MD PCP - General Family Medicine 08/19/16 03/01/18 [address] [place] [address] documented as of this encounter
--- OUTSIDE RECORDS SUMMARY | 2021-07-22 20:19 | XMS_ITS | Encounter Summary ---
:1945 Author Organization [facility] Address [address] [facility], [address] [place] [address] Care Team Providers Name Role Phone Kevin Miranda MD Primary Care Provider Encounter Details Date Type Department Care Team Description 02/09/2018 Orders Only [facility] actice Provider, MD Harsh [address] [place] [address] [phone] Social History Tobacco Use Types Packs/Day Years [...] Date/Time Associated Diagnosis Comme nts MAMMOGRAPHY Routine 02/04/2018 documented in this encounter Results MAMMOGRAPHY (02/04/2018) Anatomical Region Laterality Modality Other Narrative This result has an attachment that is no t available. Harsh Provider HEALTH MAINTENANCE documented in this encounter Visit Diagnoses Not on filedocumented in this encounter Care Teams Email Administrator Relationship Specialty Start Date End Date Kevin Miranda MD PCP - General Family Medicine 11/20/19 [address] [place] [address] documented as of this encounter
--- OUTSIDE RECORDS SUMMARY | 2021-07-22 20:19 | XMS_ITS | Encounter Summary ---
:1945 Author Organization [facility] Address [address] [facility], [address] [place] [address] Care Team Providers Name Role Phone Lisa Sotelo MD Primary Care Provider Reason for Visit Reason Onset Date Comments ANDREY Camb. Appt. 06/13/17 06/03/2017 Encounter Details Date Type Department Care Team Description 06/03/2017 Telephone [facility], Nawaf Jason FYI Camb. Appt. IRIS WINSTON 06/13/17 [address] [facility] [address] [place] [address] [phone] (Wo rk) Social History Tobacco Use Types Packs/Day Years Used Date Former Smoker Smokeless Tobacco: Never Used Alcohol Use Standard Drinks/Week Comments Defer 0 (1 standard drink = 0.6 oz pure alcoho l) Sex Assigned at Date Recorded Female 04/12/2019 2:19 PM EST documented as of this encounter Miscellaneous Notes Telephone Encounter - Gabbi Moffett - 06/03/2017 7:00 PM EDT CC: LB, Rt. Hip, and Ancelmo. Leg Pain, Rt. Leg Worse, and Rt. Foot Tingling, on occasion No imaging Obtain Dr. Sotelo notes thru Epic E-Mailed PPW, including MSPQ form to patient Gabbi documented in this encounter Plan of Treatment Not on filedocumented as of this encounter Visit Diagnoses Not on filedocumented in this encounter Care Teams Bisque Ware Dipper Relationship Specialty Start Date End Date Lisa Sotelo MD PCP - General Family Medicine 08/19/16 03/01/18 [address] [place] [address] documented as of this encounter
--- OUTSIDE RECORDS SUMMARY | 2021-07-22 20:19 | XMS_ITS | Encounter Summary ---
:1945 Author Organization [facility] Address [address] [facility], [address] [place] [address] Care Team Providers Name Role Phone Lisa Sotelo MD Primary Care Provider Encounter Details Date Type Department Care Team Description 12/30/2017 Travel Social History Tobacco Use Types Packs/Day [...] on filedocumented in this encounter Care Teams Liquor Commissioner Relationship Specialty Start Date End Date Lisa Sotelo MD PCP - General Family Medicine 08/19/16 03/01/18 [address] [place] [address] documented as of this encounter
--- OUTSIDE RECORDS SUMMARY | 2021-07-22 20:19 | XMS_ITS | Encounter Summary ---
:1945 Author Organization [facility] Address [address] [facility], [address] [place] [address] Care Team Providers Name Role Phone Lisa Sotelo MD Primary Care Provider Encounter Details Date Type Department Care Team Description 08/01/2017 Refill [facility] actice Lisa Sotelo MD [address] [place], [place] [address] [place] [address] [phone] (Wo rk) Social History Tobacco Use Types [...] on filedocumented in this encounter Care Teams Circulating Nurse Relationship Specialty Start Date End Date Lisa Sotelo MD PCP - General Family Medicine 08/19/16 03/01/[address] [place] [address] documented as of this encounter
--- OUTSIDE RECORDS SUMMARY | 2021-07-22 20:19 | XMS_ITS | Encounter Summary ---
:1945 Author Organization [facility] Address [address] [facility], [address] [place] [address] Care Team Providers Name Role Phone Kevin Miranda MD Primary Care Provider Encounter Details Date Type Department Care Team Description 06/13/2017 Procedure [facility] [address] [place] [phone] Social History Tobacco Use Types Packs/Day [...] on filedocumented in this encounter Care Teams Nail Technician Relationship Specialty Start Date End Date Kevin Miranda MD PCP - General Family Medicine 11/20/[address] [place] [address] documented as of this encounter
--- OUTSIDE RECORDS SUMMARY | 2021-07-22 20:19 | XMS_ITS | Encounter Summary ---
:1945 Author Organization [facility] Address [address] [facility], [address] [place] [address] Care Team Providers Name Role Phone Lisa Sotelo MD Primary Care Provider Encounter Details Date Type Department Care Team Description 11/01/2017 [facility] type (Primary Dx); Practice ANN Krishnamurthy Diverticulosis of large intestine withou t hemorrhage [address] [place] [address] [place], [place] [phone] Social History Tobacco Use Types Packs/Day Years Used Date Former Smoker Smokeless Tobacco: Never Used Alcohol Use Standard Drinks/Week Comments Defer 0 (1 standard drink = 0.6 oz pure alcoho l) Sex Assigned at Date Recorded Female 04/12/2019 2:19 PM EST documented as of this encounter Last Filed Vital Signs Vital Sign Reading Time Taken Comments Blood Pressure 100/60 11/01/2017 10:11 AM EDT Pulse 64 11/01/2017 10:11 AM EDT Temperature 36.7 ??C (98.1 ??F) 11/01/2017 10:11 AM EDT Respiratory Rate - - Oxygen Saturation 98% 11/01/2017 10:11 AM EDT Inhaled Oxygen Concentration - - Weight 56.9 kg (125 lb 6.4 oz) 11/01/2017 10:11 AM EDT Height 170.2 cm (5' 7) 11/01/2017 10:11 AM EDT Body Mass Index 19.64 11/01/2017 10:11 AM EDT documented in this encounter Progress Notes Yessy William NP - 11/01/2017 10:00 AM EDT Subjective HPI: Molly Rios is a 72 y.o. female who presents for a worsening of her chronic constipation. Has tended toward this since menopause, and has flares periodically despite a very healthy diet high infiber and plenty of fluid intake. However, this particular flare has been worse than usual. She had a fever on 10/27, but not since. Bloating is extremely uncomfortable, and she doesn't feel particularly well. + Abdominal discomfort, but no severe pain. No rectal bleeding, vomiting. Has had much to eatin the past few days, and feels a little better. Tried Miralax and Senna, with only modest results. Is passing gas. Patient is a non-smoker. Patient has known severe diverticulosis in the sigmoid colon, noted on colonoscopy two years ago. Has never had an episode of diverticulitis. Review of Systems See HPI Objective BP 100/60 Pulse 64 Temp 36.7 ??C (98.1 ??F) Ht 1.702 m (5' 7) Wt 125 lb 6.4 oz (56.9 kg) SpO2 98% BMI 19.64 kg/m2 Physical Exam General: In NAD, alert, oriented, speech fluent and clear Lungs: CTA Cardiac: RRR, no murmur Abdomen: Soft, non-tender, non-distended, normoactive BS all 4 quadrants, no masses/rebound/guarding, no HSM Assessment/Plan Problem List Items Addressed This Visit Digestive Diverticulosis Other Visit Diagnoses Constipation, unspecified constipation type - Primary Since her fever resolved, there is no indication for treating as diverticulitis. She will use Mg Citrate tonight to try to resolve this flare. Strategies discussed to try to prevent future episodes. Follow up if no improvement within a few days. Yessy William NP documented in this encounter Plan of Treatment Not on filedocumented as of this encounter Visit Diagnoses Diagnosis Constipation, unspecified constipation t ype - Primary Diverticulosis of large intestine withou t hemorrhage documented in this encounter Care Teams Incinerator Plant General Supervisor Relationship Specialty Start Date End Date Lisa Sotelo MD PCP - General Family Medicine 08/19/16 03/01/18 [address] [place] [address] documented as of this encounter
--- OUTSIDE RECORDS SUMMARY | 2021-07-22 20:20 | XMS_ITS | Encounter Summary ---
:1945 Author Organization [facility] Address [address] [facility], [address] [place] [address] Care Team Providers Name Role Phone Lisa Sotelo MD Primary Care Provider Encounter Details Date Type Department Care Team Description 12/02/2003 Orders Only [facility] Hieu Trevizo MD [address] [place] [address] Social History Tobacco Use Types Packs/Day Years Used Date Never Assessed Sex Assigned at Date Recorded Female 04/12/2019 2:19 PM EST documented as of this encounter Plan of Treatment Scheduled Orders Name Type Priority Associated Diagnoses Order S chedule DEXA Bone Density [facility] Routine Or dered: 12/02/2003 documented as of this encounter Visit Diagnoses Not on filedocumented in this encounter Care Teams Ice House Supervisor Relationship Specialty Start Date End Date Lisa Sotelo MD PCP - General Family Medicine 08/19/16 03/01/18 [address] [place] [address] documented as of this encounter
--- OUTSIDE RECORDS SUMMARY | 2021-07-22 20:20 | XMS_ITS ---
:1945 Author Care Team Providers Name Role Phone DR. MARILUZ VELEZ Primary Care Provider [phone] MARILUZ VELEZ Referring Provider [phone] Allergies Code Code System Name Reaction Severity Status Onset Opioids - Morphine Analogues ? ? A ctive ? Notes: 08/02/2013: sensitive to narcot ics (Active) 08/02/2013; Comment: Recorded 08/02/2013 9:53AM by Conner Pinon Visit; Promoted; Significance:*; Medications Name Status Start Date Stop Date ? ? amoxicillin 875 mg-potassium clavulanate 125 mg tablet Completed ? 12/25/2018 clonazepam 0.5 mg tablet Completed ? 019 diclofenac 3 % topical gel Active ? Not a vailable doxepin 10 mg capsule Active ? Not availa ble metronidazole 250 mg tablet Completed ? 12/15 Remeron Active ? Not available Suprep Bowel Prep Kit 17.5 gram-3.13 gram-1.6 gram oral Complete d ? 12/25/2018 solution Problems Name Status Onset Date Source ? History of Section Active 08/08/2006 Hist ory Osteoarthritis Active 08/02/2013 History Backache Active 08/02/2013 History Procedures None recorded. Results Lab Results None recorded. Past Encounters None recorded. Social History Tobacco Smoking Status Former Smoker Vaccine List None recorded. Plan of Care Reminders Provider Appointments None recorded. ? ? Lab None recorded. ? ? Referral None recorded. ? ? Procedures None recorded. ? ? Surgeries None recorded. ? ? Imaging None recorded. ? ? Vitals 02/06/2019 10:45AM OP/EXECUTIVE MEETING MANAGER Height Weight BMI 5 ft 7.5 in 130 lbs 20.1 kg/m2 12/25/2018 01:45PM EXECUTIVE MEETING MANAGER 15 Height Weight BMI 5 ft 7.5 in 128 lbs 19.8 kg/m2
--- OUTSIDE RECORDS SUMMARY | 2021-07-22 20:20 | XMS_ITS ---
:1945 Author Care Team Providers Name Role Phone Sorin Oleary Primary Care Provider Unavailable Allergies Code Code System Name Reaction Severity Status Onset Opioids - Morphine Analogues ? ? A ctive ? Medications Name Status Start Date Stop Date ? ? amoxicillin 875 mg-potassium clavulanate 125 mg tablet Active ? Not available Aspir-81 Active ? Not available azithromycin 250 mg tablet Unknown ? Not a vailable clonazepam 0.5 mg tablet Unknown ? Not josefina ilable doxepin 10 mg capsule Active ? Not availa ble erythromycin 5 mg/gram (0.5 %) eye ointment Unknown ? Not available escitalopram 10 mg tablet Unknown ? Not [...] by ? 02/14/2007 Orthopaedic Surgery Information not avai lable Notes: Rt shldr 02/14/2007 Orthopaedic Surgery Information not avai lable Notes: Rt knee 03/10/2015 MRI, Shoulder [facility] [address] [address] (Work Place) 03/18/2015 Bone Density Study Information not avai lable 04/24/2015 MRI, Shoulder [facility] [place] [address] [place] [address] (Work Place) Results Lab Results None recorded. Past Encounters None recorded. Social History Tobacco Smoking Status Never Smoker Vaccine List None recorded. Plan of Care Reminders Provider Appointments None recorded. ? ? Lab None recorded. ? ? Referral None recorded. ? ? Procedures None recorded. ? ? Surgeries None recorded. ? ? Imaging None recorded. ? ? Vitals 04/29/2015 09:30AM Established Patient Height Weight BMI 5 ft 7 in 130 lbs 20.4 kg/m2 03/18/2015 09:15AM Established Patient Height Weight BMI 5 ft 8 in 132 lbs 20.1 kg/m2 03/10/2015 10:45AM NEW PATIENT Height Weight BMI 5 ft 8 in 133 lbs 20.2 kg/m2
--- OUTSIDE RECORDS SUMMARY | 2021-07-22 20:20 | XMS_ITS ---
:1945 Author Care Team Providers Name Role Phone DR. ELBA MARIANO Primary Care Provider [phone] DR. ELBA MARIANO Referring Provider [phone] Allergies Code Code System Name Reaction Severity Status Onset Opioids - Morphine Analogues ? ? A ctive ? 36886 RxNorm Percocet ? ? Active ? Medications Name Status Start Date Stop Date ? ? amoxicillin 500 mg capsule Unknown ? Not a vailable amoxicillin 500 mg-potassium clavulanate 125 mg tablet Unknown ? Not available amoxicillin 875 mg tablet Unknown ? Not av ailable amoxicillin 875 mg-potassium clavulanate 125 mg tablet Active ? Not available aspirin Completed ? 01/24/2019 budesonide 0.5 mg/2 mL suspension for nebulization Active ? Not available Carac 0.5 % topical cream Unknown ? [...] topical cream Completed ? 1 03/07/2016 Fluvirin 4095-2241 45 mcg (15 mcg x 3)/0.5 mL Unknown ? Not available intramuscular suspension hydromorphone 2 mg tablet Completed ? 2016 metronidazole 250 mg tablet Completed ? 04/15 metronidazole 500 mg tablet Active ? Not available mirtazapine 15 mg tablet Completed ? 017 omega 3 183.3 mg-dha 75 mg-epa 91.6 mg-fish oil 306 mg capsule A ctive ? Not available Take by oral route. Suprep Bowel Prep Kit 17.5 gram-3.13 gram-1.6 gram oral Complete d ? 01/24/2019 solution tobramycin 0.3 %-dexamethasone 0.1 % eye Active ? Not available drops,suspension trazodone 50 mg tablet Completed ? 7 valacyclovir 1 gram tablet Completed ? 01/05 venlafaxine ER 37.5 mg capsule,extended release 24 hr Unknown ? Not available Voltaren 1 % topical gel Unknown ? Not josefina ilable zolpidem 5 mg tablet Unknown ? Not availab le Notes: TUMERIC, VITAMIN D , VITAMIN B Problems Name Status Onset Date Source [...] ? Imaging None recorded. ? ? Vitals 03/22/2019 02:00PM Established Patient 15 Height [...]
--- OUTSIDE RECORDS SUMMARY | 2021-07-22 20:20 | XMS_ITS | Encounter Summary ---
:1945 Author Organization [facility] Address [address], [address] [place] [address] Care Team Providers Name Role Phone Laurie Elias NP Primary Care Provider Encounter Details Date Type Department Care Team Description 04/13/1999 Orders Only [facility] Hieu Trevizo MD [address] [facility] [place] [address] Social History Tobacco Use Types Packs/Day Years Used Date Never Assessed Sex Assigned at Date Recorded Female 04/12/2019 2:19 PM EST documented as of this encounter Plan of Treatment Scheduled Orders Name Type Priority Associated Diagnoses Order S chedule DEXA Bone Density Central Imaging Routine Or dered: 04/13/1999 documented as of this encounter Visit Diagnoses Not on filedocumented in this encounter Care Teams Concept Artist Relationship Specialty Start Date End Date Laurie Elias NP PCP - General Family Medicine 03/02/18 11/19/19 [address] [place] [address] documented as of this encounter
[2021-07-22 20:24] LABS: Abs Immature Grans 0.04 10^3/uL (0.0-0.06); Absolute Basophil Count 0.09 10^3/uL (0.0-0.2); Absolute Eosinophil Count 0.32 10^3/uL (0.0-0.7); Absolute Lymphocyte Count 1.54 10^3/uL (1.2-3.4); Absolute Monocyte Count 1.48 10^3/uL (0.1-0.8); Basophils % 0.6; Eosinophils % 2.1; HCT 40.5 % (36.0-46.0); HGB 13.3 g/dL (11.2-15.7); Immature Grans % 0.3; Lymphocytes % 10.2; MCH 31.4 pg (27.0-33.0); MCHC 32.8 % (32.0-36.0); MCV 96 fL (80-95); MPV 10.3 fL (8.0-11.0); Monocytes % 9.8; Platelet Count 317 10^3/uL (130-400); RBC 4.24 10^6/uL (3.93-5.22); RDW 13.1 % (11.7-14.6); RDW-SD 46.5 fL; WBC 15.07 10^3/uL (4.4-10.8)
[2021-07-22 20:39] LABS: ALT 26 U/L (14-59); AST 24 U/L (15-37); Albumin 3.8 g/dL (3.4-5.0); Alkaline Phosphatase 96 U/L (46-116); Anion Gap 7.6 mmol/L (3-11); BUN 10 mg/dL (7-18); Bilirubin, Total 0.7 mg/dL (0.2-1.0); CO2 28.4 mmol/L (21.0-32.0); CREATININE 0.7 mg/dL (0.55-1.02); Calcium 9.3 mg/dL (8.5-10.1); Chloride 102 mmol/L (98-107); Glucose 89 mg/dL (74-106); Potassium 4.2 mmol/L (3.5-5.1); Sodium 138 mmol/L (136-145); Total Protein 6.8 g/dL (6.4-8.2)
== END 2021-07-22 20:13 | disposition home or self-care (01) ==
LOC: LBN 20:12
PROVIDERS: Visit Provider Physician Assistant Medical
DX: Z87.19 Personal history of other diseases of the digestive system (principal)
CPT/HCPCS: 80053; 85025

== ENCOUNTER 2021-07-27 12:31 | Outpatient (REF) | payer MEDICARE, OTHER, SELFPAY ==
[2021-07-27 19:07] LABS: Abs Immature Grans 0.02 10^3/uL (0.0-0.06); Absolute Basophil Count 0.12 10^3/uL (0.0-0.2); Absolute Eosinophil Count 0.68 10^3/uL (0.0-0.7); Absolute Lymphocyte Count 3.02 10^3/uL (1.2-3.4); Absolute Monocyte Count 0.92 10^3/uL (0.1-0.8); Absolute Neutrophil Count 4.79 10^3/uL (1.2-6.7); Basophils % 1.3; Eosinophils % 7.1; HCT 39.9 % (36.0-46.0); HGB 13.2 g/dL (11.2-15.7); Immature Grans % 0.2; Lymphocytes % 31.6; MCH 31.3 pg (27.0-33.0); MCHC 33.1 % (32.0-36.0); MCV 95 fL (80-95); MPV 9.6 fL (8.0-11.0); Monocytes % 9.6; Neutrophils % 50.2; Platelet Count 387 10^3/uL (130-400); RBC 4.22 10^6/uL (3.93-5.22); RDW 12.8 % (11.7-14.6); RDW-SD 44.4 fL; WBC 9.55 10^3/uL (4.4-10.8)
== END 2021-07-27 12:32 | disposition home or self-care (01) ==
LOC: NCHCN 12:31
PROVIDERS: Visit Provider Family Medicine
DX: D72.829 Elevated white blood cell count, unspecified (principal)
CPT/HCPCS: 85025

== ENCOUNTER → 2021-10-05 02:45 | Outpatient (CLI) | payer MEDICARE, OTHER, SELFPAY ==
--- NOTE | 2021-10-05 12:00 | DI.MAMMO_ITS ---
Exam(s) MAMMO SCREENING EXAM: MAMMO SCREENING CLINICAL HISTORY: SCREENING, Z12.39. TECHNIQUE: Bilateral full field digital CC and MLO mammographic images were obtained with 3D tomosyn thesis and utilizing computer aided detection (CAD). COMPARISON: Prior outside mammograms were reviewed, the most recent being 2018. FINDINGS: Fibroglandular tissue pattern again noted moderately dense. Asymmetric tissue posteriorly in the right breast on the CC view is unchanged from 2018. Anteriorly in the left breast there is an asymmetric density in the retroareolar region seen on the C C view. Measures approximately 7 x 6 millimeters, located approximately 1 cm in the nipple. Spot co mpression and view and ultrasound recommended. There are no malignant-appearing microcalcification groups in this region or elsewhere in either [address] There is no significant architectural distortion nor skin thickening-retraction. IMPRESSION: Moderately dense fibroglandular tissue. No obvious radiographic evidence of malignancy in the right breast Asymmetric density-possible nodule in the immediate retroareolar region of the left breast. Spot com pression view and breast ultrasound recommended BI-RADS Category 0 - Assessment Incomplete: Need additional imaging evaluation Breast Density - Category C - Heterogeneously dense Breast density Category C or D implies that the patient has dense breast tissue. Dense breast tissue can make it harder to find cancer on a mammogram. Dense breast tissue is also associated with an incr eased risk of breast cancer. This information about the result of the mammogram report was provided to the patient to raise their awareness. Use this report when you speak with the patient about their risks for breast cancer, which includes their family history. At that time, you may recommend additional screening tests (Ultrasoun d or MRI) as these tests may add significant information. A negative radiographic report should not delay biopsy if a dominant or clinically suspicious mass is present. Up to ten percent of cancers are not identified on mammography. A negative report may reinforce clinical impression. Adenosis and dense breasts may obscure an underlying neoplasm. False positive reports average 6 to 10%. Patient will receive a letter notifying them of these results.
== END ==
PROVIDERS: Visit Provider Family Medicine
DX: Z12.31 Encounter for screening mammogram for malignant neoplasm of breast (principal); R92.8 Other abnormal and inconclusive findings on diagnostic imaging of breast
CPT/HCPCS: 77063; 77067

== ENCOUNTER → 2021-10-22 01:46 | Outpatient (CLI) | payer MEDICARE, OTHER, SELFPAY ==
--- NOTE | 2021-10-22 | DI.MAMMO_ITS ---
Exam(s) MG MAMMO SCREEN CALL BACK UNI US BREAST LT LIMITED EXAM: MG MAMMO SCREEN CALL BACK UNI and U/S breast LT limited CLINICAL HISTORY: F/U MAMMO, LT ASYMMETRIC DENSITY,? NODULE. TECHNIQUE: Craniocaudal and mediolateral oblique Full Field Digital Mammography views of the left br east with Computer Aided Diagnosis followed by Tomosynthesis and left breast ultrasound. COMPARISON: Comparison is made with prior examinations. FINDINGS: Mammography/Tomosynthesis: Masses/Architectural Distortion: No persistent nodule is seen on the additional views. No suspicious masses or areas of architectural distortion are present. Microcalcifictions: No suspicious pleomorphic-type are seen. Skin Thickening/Nipple Retraction: None. Limited left breast US: Echotexture: Normal appearance of the glandular tissue. Shadowing: No suspicious foci. Cyst: None. Solid lesions: None seen. Ductal dilation: None. IMPRESSION: 1. No evidence of malignancy is noted. 2. Unless there is more urgent need, follow-up screening mammography is recommended, as per [place] [employer] guidelines. 3. The findings were discussed with the patient on the date of the examination. BI-RADS Category 1 - Negative Breast Density - Category C - Heterogeneously dense Breast density Category C or D implies that the patient has dense breast tissue. Dense breast tissue can make it harder to find cancer on a mammogram. Dense breast tissue is also associated with an incr eased risk of breast cancer. This information about the result of the mammogram report was provided to the patient to raise their awareness. Use this report when you speak with the patient about their risks for breast cancer, which includes their family history. At that time, you may recommend additional screening tests (Ultrasoun d or MRI) as these tests may add significant information. A negative radiographic report should not delay biopsy if a dominant or clinically suspicious mass is present. Up to ten percent of cancers are not identified on mammography. A negative report may reinforce clinical impression. Adenosis and dense breasts may obscure an underlying neoplasm. False positive reports average 6 to 10%. Patient will receive a letter notifying them of these results.
== END ==
PROVIDERS: PCP Family Medicine; Visit Provider Family Medicine
DX: R92.8 Other abnormal and inconclusive findings on diagnostic imaging of breast (principal); Z12.31 Encounter for screening mammogram for malignant neoplasm of breast
CPT/HCPCS: 76642; 77063; 77067

== ENCOUNTER 2021-11-06 15:44 | Outpatient (REF) | payer MEDICARE, OTHER, SELFPAY ==
--- OUTSIDE RECORDS SUMMARY | 2021-11-06 15:49 | XMS_ITS | Clinical Summary ---
:1945 Author Organization [facility] [place] [address] Care Team Providers Name Role Phone Estee Diaz MD Primary Care Provider Allergies Active Allergy Reactions Severity Noted Date Comments Hydrocodone-Acetaminoph Other (See Comments) Flushing and Hives en Tylenol is okay per pt Opioids - Morphine 07/01/2020 Analogues Opioids-Meperidine And 08/15/2016 Related Oxycodone Other (See Comments) 07/01/2020 Flushin g and Hives Medications Medication Sig Dispensed Refills Start Date End Date Status calcium carbonate Take 2 tablets by 0 Active (CALCIUM 500 ORAL) mouth every morning. cholecalciferol, Take 1 capsule by 0 Active vitamin D3, (VITAMIN D3 mouth every ORAL) morning. doxepin (Sinequan) 10 TAKE 1 CAPSULE BY 0 08/01/2020 Active mg Capsule MOUTH AT BEDTIME polyethylene glycoL Take 17 g by 0 Active (Miralax) 17 gram/dose mouth daily as Powder needed. methylcellulose, with Take 1 packet by 0 Active Sugar, (Citrucel, mouth nightly. sucrose,) Powder fish oil-omega-3 fatty Take by mouth. 0 Active acids 500 mg Capsule mxuggff-uddl-zltgg-oreg Take by mouth. 0 Active -capryl 100 mg-150 mg- 50 mg-150 mg Capsule meloxicam (MOBIC) 15 mg Take 1 tablet by 30 tablet 3 2 Active TabletIndications: mouth daily. Trochanteric bursitis of left hip Active Problems Problem Noted Date S/P right total hip arthroplasty; Dr. 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 07/01/2020 Acute left ankle pain 07/01/2020 Tinnitus of right ear 07/01/2020 Other emphysema 07/01/2020 Deviated nasal septum 07/01/2020 Chronic sinusitis 07/01/2020 Spider veins 07/01/2020 Gastroesophageal reflux 07/01/2020 IBS (irritable bowel syndrome) 07/01/2020 Diverticulosis 07/01/2020 Diverticulitis 07/01/2020 Osteopenia 07/01/2020 Rosacea 07/01/2020 Disorder of rotator cuff 07/01/2020 Hiatal hernia 07/01/2020 Amblyopia 07/01/2020 Strabismus 07/01/2020 Dense breast 07/01/2020 Depressive disorder 07/01/2020 Dry eyes 07/01/2020 Diverticulitis of large intestine with abscess without bleeding 12/05/2019 Nuclear sclerotic cataract of both eyes 05/23/2018 Routine adult health maintenance 03/17/2017 Overview: Last Assessment & Plan: Formatting of this note might be differe nt from the original. Tdap today. Next time here can discuss S hingrix Plantar fasciitis 09/20/2016 Backache 08/02/2013 Osteoarthrosis 08/02/2013 H/O corneal abrasion 05/03/2013 Overview: Formatting of this note might be differe nt from the original. H/O Corneal abrasion; OD Superficial bruising 01/04/2012 Overview: Formatting of this note might be differe nt from the original. Bruising Vertigo 01/04/2012 Overview: Formatting of this note might be differe nt from the original. Vertigo History of section 08/08/2006 Varicose veins 08/10/1990 Injury of head 05/14/1984 Family History Medical History Relation Comments Coronary Artery Disease Brother Emphysema Brother Cancer Father Emphysema Mother Other Son DRUG ABUSE Relation Status Comments Brother Father Mother Son Social History Tobacco Use Types Packs/Day Years Used Date Former Smoker Quit: 1988 Smokeless Tobacco: Never Used Alcohol Use Standard Drinks/Week Comments Yes 4 (1 standard drink = 0.6 oz pure alcoho l) Sex Assigned at Date Recorded Not on file Last Filed Vital Signs Vital Sign Reading Time Taken Comments Blood Pressure 109/64 12/17/2020 7:51 AM EDT Pulse 69 12/16/2020 12:24 PM EDT Temperature 36.9 ??C (98.4 ??F) 12/17/2020 7:51 AM EDT Respiratory Rate 18 12/17/2020 7:51 AM EDT Oxygen Saturation 96% 12/17/2020 7:51 AM EDT Inhaled Oxygen Concentration - - Weight 59 kg (130 lb) 06/10/2021 2:02 PM EDT Height 172.7 cm (5' 8) 06/10/2021 2:02 PM EDT Body Mass Index 19.77 06/10/2021 2:02 PM EDT Plan of Treatment Health Maintenance Due Date Last Done Comments Covid-19 Vaccine (#1) 02/04/1950 Pneumoccocal Vaccine: 65+ (1 - PCV) 1953 Hepatitis C Screening 1965 Tdap adult 1966 Tetanus vaccine 1966 Breast Cancer Share Decision Needed 1987 Colonoscopy 02/04/1992 Breast Cancer screening 1997 Zoster vaccine (1 of 2) 1997 Advance Directive 2002 Bone Density Scan 02/04/2012 Influenza (Flu) vaccine (1 of 1 - Influenza standard 10/15/2021 series) Medical Devices Implanted Type Area Manager Cardiac Cath Device Shelf Model / Identifier Expiration Serial / Date Lot Head Femoral Hip 32mm -3mm Offset 01/27 Tpr Zircnm Oxinium ([id number]) (Autoreq) - [id number] IMPLANTS Right: [employer] - 09/22/2030 [id number] / Implanted: Qty: 1 on 12/16/2020 by Nish Chávez MD at [facility] FERRIS NEPH / [id number] Insurance Payer Benefit Plan / Subscriber ID Effective Phone Address T ype Group Dates [facility] MEDIC[facility] [id number] 2020-Prese [phone] [address] [place] [id number] MEDICARE MEDICARE PART A [id number] 2020-Prese [phone] [place] [phone] Advance Directives Documents on File Type Date Recorded Patient Monomer Recovery Operator Explanati on Personal Monomer Recovery Operator 11/04/2020 12:58 PM jeff choi Latest Code Status on File Code Status Date Activated Date Inactivated Comments Attempt Cardiopulmonary Resuscitation - 12/16/2020 9:24 AM 021 1:14 PM Inpatient Code Status decision made by: Patient Care Teams Wheel Blocker Relationship Specialty Start Date End Date Estee Diaz MD PCP - General Family Medicine 10/28/20 [address] [place] [address]
--- OUTSIDE RECORDS SUMMARY | 2021-11-06 15:49 | XMS_ITS | Encounter Summary ---
:1945 Author Organization [facility] [place] [address] Care Team Providers Name Role Phone Estee Diaz MD Primary Care Provider Encounter Details Date Type Department Care Team Description 06/10/2021 Ancillary Procedure Radiology XRay at Nish Chávez S tatus post total the Multi-Specialty MD replacement of right [facility] [address] [facility] [address] [place] [id number] [phone] Social History Tobacco Use Types Packs/Day Years Used Date Former Smoker Quit: 1988 Smokeless Tobacco: Never Used Alcohol Use Standard Drinks/Week Comments Yes 4 (1 standard drink = 0.6 oz pure alcoho l) Sex Assigned at Date Recorded Not on file documented as of this encounter Plan of Treatment Not on filedocumented as of this encounter Procedures Procedure Name Priority Date/Time Associated Diagnosis Comme nts XR PELVIS AND LAT Routine 06/10/2021 1:55 PM Status post total Results for this HIP RIGHT EDT replacement of right procedu re are in hip the results section. documented in this encounter Results XR Pelvis & Lat Hip Right (Generic) (06/10/2021 1:55 PM EDT) Anatomical Region Laterality Modality Pelvis, Hip Right Digital Radiography Specimen (Source) Anatomical Location Collection Method / Collectio n Time Received Time / Laterality Volume Impressions 06/10/2021 2:10 PM EDT Status post right total hip arthroplasty without radiographic evidence of hardware complication. Thank you for letting us participate in the care of this patient. ??If you are a health care provider and have any questi ons regarding this report, please contact the number below. ??For patients who have questions please contact the health aged or disabled care worker that requested your imaging first. ? Electronically signed by: Ronald Tejeda MD , [facility] ([phone]), at 06/10/2021 2:10 PM Narrative 06/10/2021 2:10 PM EDT EXAMINATION: XR PELVIS AND LAT HIP RIGHT (GENERIC) CLINICAL HISTORY: assess hip healing. s/ p thr and pain TECHNIQUE: 2 views of the right hip COMPARISON: January 16, 2021 FINDINGS: Normal alignment of right total hip arth roplasty. No fracture or lucency. Similar degenerative change at the pubic symphysis and the left hip. Procedure Note Ronald Tejeda MD - 06/10/2021Formatting o f this note might be different from the original. EXAMINATION: XR PELVIS AND LAT HIP RIGHT (GENERIC) CLINICAL HISTORY: assess hip healing. s/ p thr and pain TECHNIQUE: 2 views of the right hip COMPARISON: January 16, 2021 FINDINGS: Normal alignment of right total hip arth roplasty. No fracture or lucency. Similar degenerative change at the pubic symphysis and the left hip. IMPRESSION Status post right total hip arthroplasty without radiographic evidence of hardware complication. Thank you for letting us participate in the care of this patient. If you are a health care provider and have any questi ons regarding this report, please contact the number below. For patients w ho have questions please contact the health aged or disabled care worker that requested your imaging first. Electronically signed by: Ronald Tejeda MD , [facility] ([phone]), at 06/10/2021 2:10 PM Nish Chávez MD IMG DX ORDERABLES documented in this encounter Visit Diagnoses Diagnosis Status post total replacement of right h ip documented in this encounter Care Teams Client Support Analyst Relationship Specialty Start Date End Date Estee Diaz MD PCP - General Family Medicine 10/28/[address] [facility] [address] [place] [address] documented as of this encounter
--- OUTSIDE RECORDS SUMMARY | 2021-11-06 15:49 | XMS_ITS | Encounter Summary ---
:1945 Author Organization [place] [address] Care Team Providers Name Role Phone Estee Diaz MD Primary Care Provider Reason for Visit Reason Onset Date Comments Other 06/15/2021 US guided hip inject ion Encounter Details Date Type Department Care Team Description 06/15/2021 Telephone Orthopaedics at [facility] Hawley O ther (US guided hip [place] [facility] RN injection) [address] [facility] [place] [address] Social History Tobacco Use Types Packs/Day Years Used Date Former Smoker Quit: 1988 Smokeless Tobacco: Never Used Alcohol Use Standard Drinks/Week Comments Yes 4 (1 standard drink = 0.6 oz pure alcoho l) Sex Assigned at Date Recorded Not on file documented as of this encounter Miscellaneous Notes Telephone Encounter - Lakeisha Rdz RN - 06/15/2021 3:04 PM EDT Telephone Call 06/15/2021 3:05 PM Caller: Molly Rios 1945 Telephone Information: [phone] (home) Problem/Question: The patient left a message asking about an ultrasound-guided injection of her hip for her bursitis. Dr. Chávez saw the patient on 06/10/2021 for a postop follow-up of her right CAREY on 12/16/2020. In Dr Chávez's note he mentioned possibility of an ultrasound-guided injection next to the common abductor attachment. Outcome: The patient did not call back. Lakeisha A Rdz, RN documented in this encounter Plan of Treatment Not on filedocumented as of this encounter Visit Diagnoses Not on filedocumented in this encounter Care Teams Operating Room Specialist Relationship Specialty Start Date End Date Estee Diaz MD PCP - General Family Medicine 10/28/[address] [facility] [address] [place] [address] documented as of this encounter
--- OUTSIDE RECORDS SUMMARY | 2021-11-06 15:49 | XMS_ITS | Encounter Summary ---
:1945 Author Organization [facility] [place] [address] Care Team Providers Name Role Phone Estee Diaz MD Primary Care Provider Encounter Details Date Type Department Care Team Description 07/06/2021 Telephone Surgical Specialties at Gee Younger RN [facility] [place] [address] Social History Tobacco Use Types Packs/Day Years Used Date Former Smoker Quit: 1988 Smokeless Tobacco: Never Used Alcohol Use Standard Drinks/Week Comments Yes 4 (1 standard drink = 0.6 oz pure alcoho l) Sex Assigned at Date Recorded Not on file documented as of this encounter Miscellaneous Notes Telephone Encounter - Molly Younger RN - 07/06/2021 9:50 AM EDT 07/06/21 To whom it may concern, Molly Rios is a 76 y.o. female who had a right Total hip replaceemnt on 12/16/[address] Nish Chávez. Patient called to notify that they are having a dental procedure. The AAOS online indication profilefor prophylactic antibiotics was completed and the results indicated that this patient does not needto be prescribed antibiotics for any upcoming dental procedure. [employer] Planned Dental Procedure: Dental procedures that do result in the manipulation of gingival or periapical tissues, or perforation of the oral mucosa Immunocompromised Status: No severely immunocompromised Diabetic Glycemic Control: Nocurrent or active diabetes diagnosis History of periprosthetic or deep prosthetic joint infection that required an operation: No history of periprosthetic or deep prosthetic joint infection that required an operation Timing since joint replacement: Less than 1 year Recommendations: rarely appropriate to prescribe prophylactic antibiotics If you have any questions or concerns please contact the clinic. Regards, Molly Younger RN documented in this encounter Plan of Treatment Not on filedocumented as of this encounter Visit Diagnoses Not on filedocumented in this encounter Care Teams Drawing Machine Operator Relationship Specialty Start Date End Date Estee Diaz MD PCP - General Family Medicine 10/28/20 [address] [place] [address] documented as of this encounter
--- OUTSIDE RECORDS SUMMARY | 2021-11-06 15:50 | XMS_ITS | Encounter Summary ---
:1945 Author Organization [facility] [place] [address] Care Team Providers Name Role Phone Estee Diaz MD Primary Care Provider Encounter Details Date Type Department Care Team Description 11/25/2020 TH Visit Orthopaedics at [facility] osteoarthritis ([facility]) [place] Becky Schmidt RN of right hip [address] [place] [id number] Social History Tobacco Use Types Packs/Day Years Used Date Former Smoker Quit: 1988 Smokeless Tobacco: Never Used Sex Assigned at Date Recorded Not on file documented as of this encounter Progress Notes Robert Genao RN - 11/25/2020 12:00 PM EDT None needed documented in this encounter Plan of Treatment Not on filedocumented as of this encounter Visit Diagnoses Diagnosis Primary osteoarthritis of right hip Primary localized osteoarthrosis, pelvic region and thigh documented in this encounter Care Teams Rotary Shear Operator Relationship Specialty Start Date End Date Estee Diaz MD PCP - General Family Medicine 10/28/20 [address] [place] [address] documented as of this encounter
--- OUTSIDE RECORDS SUMMARY | 2021-11-06 15:50 | XMS_ITS | Encounter Summary ---
:1945 Author Organization [place] [address] Care Team Providers Name Role Phone Estee Diaz MD Primary Care Provider Encounter Details Date Type Department Care Team Description 10/31/2020 Laboratory Laboratory at [place] Primary osteoarthritis of right hip; Appointment Newman Day Pain in right hip; [address] [place] [id number] Social History Tobacco Use Types Packs/Day Years Used Date Former Smoker Quit: 1988 Smokeless Tobacco: Never Used Sex Assigned at Date Recorded Not on file documented as of this encounter Plan of Treatment Not on filedocumented as of this encounter Procedures Procedure Name Priority Date/Time Associated Diagnosis Comme nts TYPE AND SCREEN Routine 10/31/2020 12:00 Results for this VALIDITY PM EDT procedure are i n the results section. ANTIBODY SCREEN GEL Routine 10/31/2020 12:00 Primary osteoarth ritis Results for this (APD/NLH) PM EDT of right hip procedure are in Pain in right hi p the results Pre-op testing section. ABORH TYPE GEL Routine 10/31/2020 12:00 Primary osteoarthritis Results for this (APD/NLH) PM EDT of right hip procedure are in Pain in right hi p the results Pre-op testing section. HC APD ANTIBODY Routine 10/31/2020 12:00 Primary osteoarthriti s SCREEN PM EDT of right hip Pain in right hi p Pre-op testing HEMOGRAM Routine 10/31/2020 12:00 Primary osteoarthritis R esults for this PM EDT of right hip procedure are in Pain in right hi p the results Pre-op testing section. DIFFERENTIAL, Routine 10/31/2020 12:00 Primary osteoarthritis Results for this AUTOMATED PM EDT of right hip procedure are in Pain in right hi p the results Pre-op testing section. HC CBC,PLT & AUTO Routine 10/31/2020 12:00 Primary osteoarthri tis DIFF PM EDT of right hip Pain in right hi p Pre-op testing HC SCREENING Routine 10/31/2020 12:00 Primary osteoarthritis R esults for this CULTURE, SINGLE PM EDT of right hip procedure are in ORGANISM Pain in right hi p the results (STAPH,STREP, OR GC) Pre-op testing secti on. HC VENIPUNCTURE Routine 10/31/2020 12:00 Primary osteoarthriti s Results for this PM EDT of right hip procedure are in Pain in right hi p the results Pre-op testing section. documented in this encounter Results Type and Screen Validity (10/31/2020 12:00 PM EDT) Analysis Performed At [facility] Time Signature T&S only valid APD [facility] at LABORATORY Comment: This Type and Screen result is only valid at the [facility] Specimen Anatomical Collection Method Collection Time Receive d Time (Source) Location / / Volume Laterality Blood 10/31/2020 12:00 10/31/2020 2:10 PM EDT PM EDT Resulting Agency Comment Spec In Lab Nish Chávez MD BLOOD BANK ORDERABLES Performing Organization Address [facility] Phon e Number [facility] LABORATORY [address], [place] [address] Antibody Screen Gel (APD/NLH) (10/31/2020 12:00 PM EDT) Analysis Performed At [facility] Time Signature AB Screen Negative [facility] LABORATORY Specimen Anatomical Collection Method Collection Time Receive d Time (Source) Location / / Volume Laterality Blood 10/31/2020 12:00 10/31/2020 2:10 PM EDT PM EDT Resulting Agency Comment Spec In Lab Nish Chávez MD BLOOD BANK ORDERABLES Performing Organization Address [facility] Phon e Number [facility] LABORATORY [address], [place] [address] ABORh type Gel (APD/NLH) (10/31/2020 12:00 PM EDT) [facility] Method Time Signature Expires at 11/03/2020 7622 on: LABORATORY ABORh Type O Pos LABORATORY Specimen Anatomical Collection Method Collection Time Receive d Time (Source) Location / / Volume Laterality Blood 10/31/2020 12:00 10/31/2020 2:10 PM EDT PM EDT Resulting Agency Comment Spec In Lab Nish Chávez MD BLOOD BANK ORDERABLES Performing Organization Address City/State/ZIP Code Phon e Number LABORATORY [address] [place], [place] [address] (ABNORMAL) Differential, Automated (10/31/2020 12:00 PM EDT) [facility] Method Time Signature Neutrophils % 56.5 % LABORATORY Neutr Abs (ANC) 3.88 1.70 - 6.10 LABORATORY x10(3)/mcL Lymphocytes % 25.1 % LABORATORY Lymphocytes Abs 1.7 0.9 - 3.2 DAY x10(3)/mcL LABORATORY Monocytes % 9.3 % LABORATORY Monocyte Abs 0.6 0.3 - 0.9 DAY x10(3)/mcL LABORATORY Eosinophils % 7.9 % LABORATORY Eosinophils Abs 0.5 (H) 0.0 - 0.4 DAY x10(3)/mcL LABORATORY Basophils % 1.2 % LABORATORY Basophils Abs 0.1 0.0 - 0.1 x10(3)/mcL LABORATORY Immature Gran % 0.00 % LABORATORY Comment: Immature granulocytes(IG's)percentage an d absolute count will include metamyelocytes, myelocytes, and promyelo cytes. Blood smears from CBCs yielding IG's will be scanned manually for concor dance. If this scan disagrees with the automated IG or if promyelocytes are not ed, a manual differential will be performed. Lesa Gran Abs 0.00 0.00 - 0.04 x10(3)/mcL LABORATORY Specimen Anatomical Collection Method Collection Time Receive d Time (Source) Location / / Volume Laterality Blood 10/31/2020 12:00 10/31/2020 2:10 PM EDT PM EDT Resulting Agency Comment Spec In Lab Authorizing Provider Result Rachel Chávez MD HEMATOLOGY ORDERABLES Performing Organization Address City/[facility]/ZIP Code Phon e Number LABORATORY [address] [place], [place] [address] (ABNORMAL) Hemogram (10/31/2020 12:00 PM EDT) P athologist Signature WBC 6.9 4.0 - 9.5 DAY x10(3)/mcL LABORATORY RBC 4.51 4.00 - DAY 5.21 LABORATORY x10(6)/mcL Hemoglobin 14.1 11.7 - DAY 15.5 gm/dL LABORATORY Hematocrit 42.5 35.7 - 45.8 % LABORATORY MCV 94.2 82.6 - DAY 94.4 fL LABORATORY MCH 31.3 27.1 - DAY 32.0 pg LABORATORY MCHC 33.2 31.7 - DAY 35.0 gm/dL LABORATORY Platelets 296 145 - 357 DAY x10(3)/mcL LABORATORY RDWSD 47.2 (H) 37.0 - DAY 46.0 fL LABORATORY RDWCV 13.3 11.5 - DAY 14.1 % LABORATORY MPV 9.9 7.6 - 12.9 fL LABORATORY Specimen Anatomical Collection Method Collection Time Receive d Time (Source) Location / / Volume Laterality Blood 10/31/2020 12:00 10/31/2020 2:10 PM EDT PM EDT Resulting Agency Comment Spec In Lab Authorizing Provider Result Rachel Chávez MD HEMATOLOGY ORDERABLES Performing Organization Address City/State/ZIP Code Phon e Number LABORATORY [address], [place] [address] Staph aureus/MRSA Culture Screen Nasal (10/31/2020 12:00 PM EDT) Component Value Ref Test Analysis Performed At Patholo gist Range Method Time Signature Staphylococcus No Staphylococcus BLANCA Screening Culture aureus isolated [facility] LABORATORY Specimen Anatomical Collection Method Collection Time Receive d Time (Source) Location / / Volume Laterality Nasal 10/31/2020 12:00 10/31/2020 4:41 PM EDT PM EDT Resulting Agency Comment Spec In Lab Nish Chávez MD MICROBIOLOGY - GENERAL ORDER VON Performing Organization Address City/State/[place] [address] (ABNORMAL) Comprehensive metabolic panel (non-fasting) (10/31/2020 12:00 PM EDT) P athologist Signature Glucose Lvl 95 65 - 199 [facility] [facility] DAY mg/dL LABORATORY Comment: Diabetes: >=200 mg/dL plus symp toms BUN 13 8 - 18 mg/dL LA BORATORY Creatinine 0.61 (L) 0.70 - 1.20 mg/dL [facility] Sodium 138 135 - 145 mmol/L [facility] Potassium 4.2 3.5 - 5.0 mmol/L [facility] Comment: Please note: ??Patients with WBC >100,00 0 may have falsely elevated Potassium levels. ??For accurate Potassium quantif ication in these patients send serum separator tube (gold top) for subsequent determinations. ??Contact the Clinical Chemistry Laboratory if there are any qu estions. Chloride 101 98 - 107 mmol/L [facility] CO2 27 22 - 31 mmol/L [facility] Anion Gap 10 5 - 15 mmol/L [facility] Calcium 9.8 8.5 - 10.5 mg/dL DA LABORATORY Total Protein 7.1 6.1 - 8.0 gm/dL [facility] Albumin 4.5 3.2 - 5.2 gm/dL [facility] AST 23 0 - 30 unit/L [facility] ALT 16 0 - 30 unit/L [facility] Alk Phos 88 35 - 105 unit/L [facility] Total Bilirubin 0.5 0.2 - 1.3 mg/dL [facility] LABORAT[facility] Estimated GFR 90 >=60 mL/min/1.73 m?? [facility] Comment: This patient? s estimated glomerular filtration rate (eGFR) is between 90 mL/min/1.73 m2 (patients with less muscl e mass per kg body weight) and 104 mL/min/1.73 m2 (patients with more muscl e mass per kg body weight) as determined by the CKD-EPI equation. Asse ssment of eGFR is not appropriate when creatinine concentrations are rapidly ch anging. For clinical decisions where creatinine clearance will affect therapy , a 24-hour urine creatinine clearance may be advised. Assignment of CKD stage 1 - 5 for patien ts with an eGFR near the transition point between stages may be based on cli nical assessment of muscle mass and symptoms in addition to eGFR. Specimen Anatomical Collection Method Collection Time Receive d Time (Source) Location / / Volume Laterality Blood 10/31/2020 12:00 10/31/2020 2:10 PM EDT PM EDT Resulting Agency Comment Spec In Lab Nish Chávez MD CHEMISTRY ORDERABLES Performing Organization Address City/State/ZIP Code Phon e Number [facility] [address] [place], [place] [address] documented in this encounter Visit Diagnoses Diagnosis Primary osteoarthritis of right hip Primary localized osteoarthrosis, pelvic region and thigh Pain in right hip Pain in joint, pelvic region and thigh Pre-op testing Preoperative examination, unspecified documented in this encounter Care Teams Package Line Operator Relationship Specialty Start Date End Date Estee Diaz MD PCP - General Family Medicine 10/28/20 [address] [place] [address] documented as of this encounter
--- OUTSIDE RECORDS SUMMARY | 2021-11-06 15:50 | XMS_ITS | Encounter Summary ---
:1945 Author Organization [facility] Address [address] [place] [address] Care Team Providers Name Role Phone Estee Diaz MD Primary Care Provider Encounter Details Date Type Department Care Team Description 05/27/2021 Orders Only Orthopaedics at [facility], Stat post total West Day replacement of right [address] hip (Primary Dx) [place] [phone] [phone] [place] [address] Social History Tobacco Use Types Packs/Day Years Used Date Former Smoker Quit: 1988 Smokeless Tobacco: Never Used Alcohol Use Standard Drinks/Week Comments Yes 4 (1 standard drink = 0.6 oz pure alcoho l) Sex Assigned at Date Recorded Not on file documented as of this encounter Plan of Treatment Not on filedocumented as of this encounter Results XR Pelvis & Lat [...] who have questions please contact the health companion caregiver that requested your imaging first. ? Narrative 06/10/2021 2:10 PM EDT EXAMINATION: XR [...] ho have questions please contact the health companion caregiver that requested your imaging first. Nish Chávez MD IMG DX ORDERABLES documented in this encounter Visit Diagnoses Diagnosis Status post total replacement of right h ip - Primary Status post total replacement of right h ip documented in this encounter Care Teams Racebook Writer Relationship Specialty Start Date End Date Estee Diaz MD PCP - General Family Medicine 10/28/20 [address]oni [address] [place] [address] documented as of this encounter
--- OUTSIDE RECORDS SUMMARY | 2021-11-06 15:50 | XMS_ITS | Encounter Summary ---
:1945 Author Organization [facility] [place] [address] Care Team Providers Name Role Phone Estee Diaz MD Primary Care Provider Encounter Details Date Type Department Care Team Description 12/11/2020 Orders Only Primary Care at [facility], En counter for RMA preprocedure screening [place] [phone] COVID-19 Social History Tobacco Use Types Packs/Day Years Used Date Former Smoker Quit: 1988 Smokeless Tobacco: Never Used Alcohol Use Standard Drinks/Week Comments Yes 4 (1 standard drink = 0.6 oz pure alcoho l) Sex Assigned at Date Recorded Not on file documented as of this encounter Plan of Treatment Not on filedocumented as of this encounter Results COVID-19 PCR (12/12/2020 1:00 PM EDT) [facility] Method Time Signature SARS-CoV-2 Not Detected Not Detected [facility] LAB[facility]ORY Comment: This result should be interpreted in com bination with the clinical observations, patient history and epidem iological information in making a final diagnosis. For testing of asymptomatic i ndividuals, assay performance characteristics and clinical utility hav e not been evaluated. Testing for SARS-CoV-2 (Severe acute respiratory syn drome coronavirus 2, formerly known as 2019 novel coronavirus or 2019-nCoV) to aid in the diagnosis of COVID-19 is performed using the [employer] S-CoV-2 Assay as authorized by the FDA Emergency Use Authorization (EUA). This EUA assay is intended for In-vitro Diagnostic (IVD) use with respiratory sp ecimens such as nasopharyngeal swabs collected from individuals during the [place] phase of infection. This assay is performed based on the instructions for use provided by [employer] and additional guidance provided by CDC and FDA. Testing is performed in the [facility] within the Department of Pathology and Laboratory Medicine at [facility], certified under the Clinical Laboratory Improvement Amendments of 1988 (CLIA), 42 U.S.C. 263a, to perform high complexi ty tests. Assay performance has been verified according to clinical laborator y regulatory requirements for use with specimens collected from individuals angela pected of COVID-19. Test results are provided above. A result of Not Detecte d indicates that the viral RNA target is not present above the limit of detect ion, but does not preclude SARS-CoV-2 infection. False negative results may oc cur if a specimen is improperly collected, transported or handled; if am plification inhibitors are present; or if inadequate numbers of viral particles are present in the specimen. When a diagnostic test is negative, the possibi lity of a false negative result should be considered in the context of a patien t's recent exposures and the presence of clinical signs and symptoms consisten t with COVID-19. A result of Detected indicates that RNA from SARS-CoV-2 was d etected and the patient is infected. As required or requested by public health a uthorities, positive specimens may be sent for additional testing. Positive an d negative predictive values for this test are highly dependent on disease pre valence. A result of Invalid indicates that neither the viral RNA tar gets nor the internal control target was detected. An invalid result suggests the presence of inhibitors. Recollection and re-testing is recommend ed in the case of an invalid result. CDC COVID-19 criteria for testing on hum an specimens and clinical management guidance information are available at th e CDC Coronavirus Disease 2019 (COVID-19) webpage under Information fo r Healthcare Professionals (https://www.cdc.gov/coronavirus/2019-nc ov/hcp/index.html) Additional information about this and ot her EUA tests can be found in provider and patient fact sheets at the following FDA website: https://www.fda.gov/medical-devices/lxbdtdcvxkl-radmvga-8600-kcxlq-32-ydofxftte- pgm-vbufblgcoizjhr-psavaes-devices/qwvtp-vkhsgspjeix-qsyt SARS-Cov-2 RNA Source COUNSEL Swab [facility] Specimen (Source) Anatomical Collection Method Collection Time Re ceived Time Location / / Volume Laterality Nasopharyngeal Swab 12/12/2020 1:00 12/12 PM EDT 5:42 PM EDT Comment: Symptoms->Asymptomatic Resulting Agency Comment Spec In Lab Jason Escalante MD MICROBIOLOGY - GENERAL ORDER VON Performing Organization Address City/State/[place] [address] documented in this encounter Visit Diagnoses Diagnosis Encounter for preprocedure screening lab oratory testing for COVID-19 documented in this encounter Care Teams Oncology Nurse Navigator Relationship Specialty Start Date End Date Estee Diaz MD PCP - General Family Medicine 10/28/20 [address]oni [address] [place] [address] documented as of this encounter
--- OUTSIDE RECORDS SUMMARY | 2021-11-06 15:50 | XMS_ITS | Encounter Summary ---
:1945 Author Organization [facility] [place] [address] Care Team Providers Name Role Phone Estee Diaz MD Primary Care Provider Encounter Details Date Type Department Care Team Description 01/16/2021 Office Visit Orthopaedics at [facility] Reveles tatus post total replacement of right hip; MONAE Stafford Trochanteric bursitis of left hip; [address] Acute [place] [address] [phone] [place], [place] [address] Social History Tobacco Use Types Packs/Day Years Used Date Former Smoker Quit: 1988 Smokeless Tobacco: Never Used Alcohol Use Standard Drinks/Week Comments Yes 4 (1 standard drink = 0.6 oz pure alcoho l) Sex Assigned at Date Recorded Not on file documented as of this encounter Progress Notes Mari Sandoval PA - 01/16/2021 11:30 AM EST Date of Surgery: 12/16/20 Procedure: Right total hip arthroplasty via direct anterior approach Molly Rios is a 75 y.o. female presents today for a first postoperative visit after undergoing a total hip arthroplasty with Dr. Chávez. She tells me that she is doing well, but she felt like shewas doing better in the first 2 weeks after surgery. She has developed some right sided knee pain and her therapist did kinesiotaping. She is also having continued left hip pain, this is mostly lateralin nature, worse with walking up stairs. She cannot comfortably lie on the left side. She is currently full weightbearing without an assistive device. Pain: 5/10 Current pain medications: None DVT Prophylaxis: Aspirin 81mg BID Physical Therapy: Outpatient PT [facility] Leg Length Discrepancy: Admits Review of Systems: Constitutional: Denies fever, chills, fatigue Cardiovascular: Denies chest pain Respiratory: Denies shortness of breath Gastrointestinal: Denies nausea, vomiting, diarrhea, constipation or abdominal pain Neurovascular: Denies numbness or tingling Musculoskeletal: Admits right knee and left hip pain Psychiatric: Mood and affect appropriate PHYSICAL EXAM: Well-appearing female in NAD. A&O x 3 and answers all questions appropriately. Easily gets up from a seated position. Normal gait. Right leg is approx 2mm shorter Right hip: No tenderness to palpation over the anterior hip or greater trochanter. Incision is well healed without erythema or drainage. Decreased sensation around the incision Hip ROM: 100 degrees flexion, 20 degrees IR, 40 degrees ER, 30 degrees abduction Strength: 5/5 hip flexion, 5/5 abduction, 5/5 adduction Right knee is tender medial to the patella and medial joint line No effusion. Full painless range of motion. Medial joint pain with Jeny testing. Left hip: No tenderness to palpation over the anterior hip TTP over the greater trochanter Hip ROM: 100 degrees flexion, 20 degrees IR, 40 degrees ER, 30 degrees abduction Lateral hip pain with ER and resisted hip abduction Strength: 5/5 hip flexion, 5/5 abduction, 5/5 adduction, 5/5 clam shell Calves are soft and nontender. Negative Fernie's. X-RAYS: AP pelvis and frog leg lateral views were obtained and demonstrate a stable, well seated total hip arthroplasty in good position with no evidence of loosening, subsidence or periprosthetic fracture. Minimal OA of the left hip. ASSESSMENT: 4 weeks s/p Right total hip arthroplasty via direct anterior approach with Dr. Chávez, Right knee pain, Left hip trochanteric bursitis PLAN: Ana Paula is a 75-year-old female who I am seeing today for a 1 month follow-up after a right total hip arthroplasty. She is doing well in regards to the right hip. She is having some right-sided knee painsince the time of her surgery. I told her that this is common and usually resolves around 6 to 8 weeks after surgery. She should continue to work on quad strengthening to help with her knee pain. If this persists we can order x-rays of the right knee. She is also having left lateral hip pain that has been present since before surgery. X-rays show mild osteoarthritis and she has tenderness over the greater trochanter. She would like Voltaren gel 3% which she has used in the past. [facility]. I have also provided her with hip abductor strengthening exercises as well asquadricep strengthening exercises that she can do at home on her own when she is discharged from physical therapy. We discussed the possibility of a cortisone injection for the trochanteric bursa if her symptoms persist. Continue weightbearing as tolerated No lifting greater than 20lbs for month 2 and 30lbs for month 3 No high impact activity including running, jumping or jogging Slowly and gradually increase activity to tolerance while abiding by lifting and impact restrictions Continue use of ice and compression as needed for swelling Ok to submerge incision under water, start scar massage Ok to apply lotions/ointments Stop DVT prophylaxis at 4 weeks post op, may resume vitamins and supplements Patient is permitted to drive at 4 weeks postoperatively if She is not taking any medications that can cause drowsiness including Dilaudid, Oxycodone, Tramadol, Flexeril, etc We discussed the appropriate precautions surrounding dental prophylaxis. The patient should avoid elective dental procedures for the first 6 months after surgery. After 6 months, antibiotics will not be required for routine dental cleanings. Patient advised to call our office before any more invasive dental work to determine if a prophylactic antibiotic is warranted. documented in this encounter Plan of Treatment Not on filedocumented as of this encounter Visit Diagnoses Diagnosis Status post total replacement of right h ip Trochanteric bursitis of left hip Enthesopathy of hip region Acute pain of right knee documented in this encounter Care Teams Meat Pumper Relationship Specialty Start Date End Date Estee Diaz MD PCP - General Family Medicine 10/28/20 [address]oni [address] [place] [address] documented as of this encounter
--- OUTSIDE RECORDS SUMMARY | 2021-11-06 15:50 | XMS_ITS | Encounter Summary ---
:1945 Author Organization [facility] [place] [address] Care Team Providers Name Role Phone Estee Diaz MD Primary Care Provider Encounter Details Date Type Department Care Team Description 12/15/2020 Orders Only Orthopaedics at [facility] Mari Vela PA [facility] [place] [address] [place] [address] [phone] Social History Tobacco Use Types Packs/Day Years [...] on filedocumented in this encounter Care Teams Broth Mixer Relationship Specialty Start Date End Date Estee Diaz MD PCP - General Family Medicine 10/28/20 Toni [address]Y [address] [place] [address] documented as of this encounter
--- OUTSIDE RECORDS SUMMARY | 2021-11-06 15:50 | XMS_ITS | Encounter Summary ---
:1945 Author Organization [facility] [place] [address] Care Team Providers Name Role Phone Kevin Miranda MD Primary Care Provider Encounter Details Date Type Department Care Team Description 07/01/2020 Abstract Orthopaedics at [facility] Katie, Francesca Marvin, [facility] [address] [place] [address] Social History Tobacco Use Types Packs/Day Years Used Date Former Smoker Smokeless Tobacco: Never Used Sex Assigned at Date Recorded Not on file documented as of this encounter Last Filed Vital Signs Vital Sign Reading Time Taken Comments Blood Pressure - - Pulse - - Temperature - - Respiratory Rate - - Oxygen Saturation - - Inhaled Oxygen Concentration - - Weight 59 kg (130 lb) 07/01/2020 1:48 PM EDT Height 170.2 cm (5' 7) 07/01/2020 1:48 PM EDT Body Mass Index 20.36 07/01/2020 1:48 PM EDT documented in this encounter Plan of Treatment Not on filedocumented as of this encounter Visit Diagnoses Not on filedocumented in this encounter Care Teams Shochet Relationship Specialty Start Date End Date Kevin Miranda MD PCP - General Family Medicine 06/30/20 10/27/20 [address] [place] [id number] documented as of this encounter
--- OUTSIDE RECORDS SUMMARY | 2021-11-06 15:50 | XMS_ITS | Encounter Summary ---
:1945 Author Organization [facility] [place] [address] Care Team Providers Name Role Phone Estee Diaz MD Primary Care Provider Encounter Details Date Type Department Care Team Description 01/19/2021 Notes Only Orthopaedics at Nish Tinoco MD [facility] [place] [address] [place] [address] [phone] (Wo rk) Social History Tobacco Use Types Packs/Day Years Used Date Former Smoker Quit: 1988 Smokeless Tobacco: Never Used Alcohol Use Standard Drinks/Week Comments Yes 4 (1 standard drink = 0.6 oz pure alcoho l) Sex Assigned at Date Recorded Not on file documented as of this encounter Progress Notes Verena Hinojosa RN - 01/19/2021 8:06 AM EST Prior auth received through [employer] for diclofenac sodium 3% gel as prescribed by Abdulaziz Sandoval PA-C. Completed prior auth and awaiting response from insurance company. Denial received from insurance company with recommendations to trial diclofenac 1% gel first. documented in this encounter Plan of Treatment Not on filedocumented as of this encounter Visit Diagnoses Not on filedocumented in this encounter Care Teams Deposition Operator Relationship Specialty Start Date End Date Estee Diaz MD PCP - General Family Medicine 10/28/20 Toni [address]TTY [address] [place] [address] documented as of this encounter
--- OUTSIDE RECORDS SUMMARY | 2021-11-06 15:50 | XMS_ITS | Encounter Summary ---
:1945 Author Organization [facility] Address [address] [place] [address] Care Team Providers Name Role Phone Kevin Miranda MD Primary Care Provider Reason for Visit Reason Comments Right Hip Pain Consultation (Routine) - Closed Specialty Diagnoses / Procedures Referred By Contact Refer red To Contact Orthopaedics Diagnoses Rt Hip OA Nish Chávez MD Tomek, Ivan M, MD [address] [place] [address] [place] [address] Fax: Referral ID Status Reason Start Date Expiration Date Visits V isits Requested Authorized [id number] Closed Evaluate and 06/30/2020 06/30/2021 1 1 Treat Encounter Details Date Type Department Care Team Description 07/16/2020 Office Visit Orthopaedics at Nish Herrera, Prim arlette osteoarthritis Brett Pena MD of right hip (Primary [address] Dx) [place] [address] [phone] [place] [id number] Social History Tobacco Use Types Packs/Day Years [...] - Inhaled Oxygen Concentration - - Weight 60.8 kg (134 lb) 07/16/2020 10:24 AM EDT Height 171.5 cm (5' 7.5) 07/16/2020 10:24 AM EDT Body Mass Index 20.68 07/16/2020 10:24 AM EDT documented in this encounter Progress Notes Nish Chávez MD - 07/16/2020 10:30 AM EDT Chief Complaint: Chief Complaint Patient presents with ??? Right Hip Pain PCP: Kevin Miranda MD This patient presents to clinic for orthopedic consultation at the request of Kevin Miranda MD [address] [place] [address] for evaluation of hip pain HPI: Molly Rios is a 75 y.o. year old female being seen today to discuss pain of the anterior aspect of the right hip. She states the hip issue began 5 years ago The patient reports the hip complaint occurred gradually with no history of injury. He reports climbing stairs, getting up from a chair and prolonged walking aggravate her hip complaint. She also reports decreased walking tolerance , night pain and stiffness in association to her hip complaint. The patient has tried the following treatments: Supportive: Brace/Wrap: no Ice/Heat: yes with slight improvement Rest/Elevation:no Medications: Glucosomine/Chondroitin and Diclofenac with slight improvement . Physical Therapy : yes at [facility] with slight improvement . Joint Injections: no Imaging: right hip X-ray series were performed on 07/16/20 at [facility] The imaging was available and reviewed in clinic with the patient. The findings are documented in the physical exam below. REVIEW OF SYMPTOMS: Constitutional: Denies fever, chills, fatigue Cardiovascular: Denies chest pain Respiratory: Denies shortness of breath Gastrointestinal: Denies nausea, vomiting, diarrhea, constipation or abdominal pain Neurovascular: Denies numbness or tingling Musculoskeletal: Admits slight right hip pain Psychiatric: Mood and affect appropriate STOP-BANG Questionnaire BMI: BMI Readings from Last 1 Encounters: 07/16/20 20.68 kg/m?? Age: 75 y.o. Sex: female STOP 1. Do you snore loudly (louder than talking or loud enough to hear through closed doors?) No 2. Do you often feel tired, fatigued, or sleepy during the daytime? No 3. Has anyone observed you stop breathing during your sleep? No 4. Do you have, or have you ever, been treated for high blood pressure? No BANG 1. Is BMI more than 35? No 2. Age over 50? Yes 3. Is neck circumference greater than 16 inches (40 cm)? No 4. Is gender male? No Total Score: 1 High Risk of ELYSIA: YES 5-8 Intermediate Risk of ELYSIA: YES 3-4 Low Risk of ELYSIA: YES 0-2 PHYSICAL EXAM: Ht 171.5 cm (5' 7.5) Wt 60.8 kg (134 lb) BMI 20.68 kg/m?? Constitutional: alert, in no acute distress, well-developed, well-nourished, well-groomed, body habitus normal Head/Face: Atraumatic, normocephalic General: alert and oriented. She appears in no acute discomfort and is resting comfortably in a chair in the exam room. Lumbar/Pelvis: Full ROM of lumbar spine in all planes, no point tenderness, no SI joint tenderness, Gait/Station: Normal gait, bilateral foot out toeing, Station normal . Right lower extremity : Hip: Inspection/Palpation: no tenderness to palpation, no greater trochanteric tenderness, no effusion, no warmth, no swelling Range of Motion: FF 0- 120 degrees, ER 45 degrees, IR 10 degrees, ABD 35 degrees Strength: strength 5/5 Stability: no joint instability Test/Signs log roll with no pain, active straight leg raise with proximal thigh discomfort,some crepitation with patella translation Thigh: no tenderness, no ecchymosis, no swelling Knee : Full ROM with no tenderness to palpation, no effusion Lower leg: No tenderness to palpation, no swelling, no ecchymosis Left lower extremity : Hip: Inspection/Palpation: no tenderness to palpation, no greater trochanteric tenderness, no effusion, no warmth, no swelling Range of Motion: FF 0- 120 degrees, ER 50 degrees, IR 25 degrees, ABD 45 degrees Strength: strength 5/5 Stability: no joint instability Test/Signs log roll with no pain, active straight leg raise with no weakness, some crepitation with patella translation Thigh: no tenderness, no ecchymosis, no swelling Knee : Full ROM with no tenderness to palpation, no effusion Lower leg: No tenderness to palpation, no swelling, no ecchymosis Muscle tone: tone normal Leg Length Discrepancy: Yes 4mm shorter on right side Skin: no erythema present, no ecchymosis present, no signs of skin lesions or infection Sensation: :sensation to light touch intact in lower extremities, neurovascularly intact Mental status Examination: grossly oriented to person, place and time Mood and Affect: mood normal, affect appropriate Impression/Plan: Molly Rios is seeing me for the first time for right hip pain secondary to osteoarthritis. Her history as outlined above, she gives about a 5-year history of increasing anteriorgroin and anterolateral upper thigh discomfort with activity, worse after standing up for prolonged period of sitting, stair climbing, and prolonged walking. This has not impacted her ability to be active, she worries that she will become deconditioned and comes for advice regarding management. The left hip really does not hurt her, she has no major low back pain or knee problems. Thus far she has been taking mostly [id number] anti-inflammatory medication and has been doing some exercises to strengthen her core and supporting lower extremity muscle groups. I reviewed her outside radiographs from May 2020 and these demonstrate a severely arthritic right hip with grade 3-4 changes, extensive osteophytosis and cysts in the subchondral acetabulum and femoral head. Bone density is good, type B. Left hip shows only relatively minor arthritic changes. We discussed at some length the accepted nonoperative treatment options for hip OA, including activity modification, attainment of ideal body weight, reduction of inflammation either through oral anti-inflammatory agents, topicals, or intra-articular cortisone injection. We also talked about the role of physical therapy to strengthen muscle groups that control lower extremity muscle groups. There arealso emerging technologies including protein rich plasma and stem cell therapy which to date show limited and inconsistent results with intra-articular injection, and are not covered by most insurance payers. Total hip arthroplasty via a direct anterior surgical approach was discussed. With regards to implants, the femoral stem and acetabular component are made of a titanium-aluminum alloy, the new bearing will be using a polyethylene liner, and a ceramic femoral head to avoid the potential fretting problems with cobalt- chrome. The risks of surgery include the risk of infection, blood clot, fracture, dislocation, leg length inequality, wound healing problems, reoperation, and the risk of anesthesia to the cardiovascular systems. The anesthesia is usually a spinal, the hospitalization is same-day or one night in hospital, the pain management strategy is multimodal to limit narcotic use. A spinal anesthetic is used preferentially due to increased safety compared to general anesthesia. We will use DVT prophylaxis which we will discuss again at a later time (to determine the appropriate medication) We talked about the postoperative course, the hospitalization would likely be sameday or one night, patients typically use a walker for 1-2 weeks after surgery and then switch to a cane for 2-3 weeks. We talked about the fact the bony ingrowth into the hip implants takes about 12-14 weeks to occur, and that no aggressive sports or lifting should be done until then. In terms of pain and function scores from standardized surveys, it appears that the recovery for single total hip replacement is likely just about finished by 12 months, but I also pointed out that most patients improve in terms of the range of motion, strength, endurance, and agility for up to 2 years after surgery. In terms of allowable activities after joint replacement, most sports are permissible after 3 months. Running on a hip replacement is allowed by some surgeons, but considered controversial and undesirable by others. Moderate impact activity is likely not problematic and there is no evidence that it will reduce the useful life of the implant which is likely somewhere between 25 and 30 years according to accelerated agingsimulation by the octave board assembler. I did point out to her that I think that in the relatively near future she will need a total hip replacement and she is to maintain her activity level and reduce her symptoms. I explained to her that severe hip OA does not always respond well to nevertheless at this point she would like to continue treating this nonoperatively at least through the summer and into the fall. We therefore prescribed meloxicam 15 mg a day to be taken every day with food. We talked about the GI side effects. The need forgood hydration was also emphasized. She will contact us if her symptoms worsen, or if the meloxicam poses any problems for her after she starts taking it. Trini Wilson am acting as scribe for Nish Chávez MD. All work documented was performed by Nish Chávez MD. Nish Feliz MD personally performed the services described in this documentation, as scribed by Francesca Wilson is both accurate and complete. documented in this encounter Plan of Treatment Not on filedocumented as of this encounter Visit Diagnoses Diagnosis Primary osteoarthritis of right hip - Pr imary Primary localized osteoarthrosis, pelvic region and thigh documented in this encounter Care Teams Geography Instructor Relationship Specialty Start Date End Date Kevin Miranda MD PCP - General Family Medicine 06/30/20 10/27/20 [address] [place] [address] documented as of this encounter
--- OUTSIDE RECORDS SUMMARY | 2021-11-06 15:50 | XMS_ITS | Encounter Summary ---
:1945 Author Organization [facility] [place] [address] Care Team Providers Name Role Phone Estee Diaz MD Primary Care Provider Encounter Details Date Type Department Care Team Description 01/05/2021 Orders Only Orthopaedics at Nish Herrera, Stat us post right hip West MD replacement yvonne Cuevas [address] [place] [address] [phone] [place] [address] Social History Tobacco Use Types Packs/Day Years [...] XR Pelvis & Lat Hip Right (Generic) (01/16/2021 11:14 AM EST) Anatomical Region Laterality Modality Pelvis, Hip Right Digital Radiography Specimen (Source) Anatomical Location Collection Method / Collectio n Time Received Time / Laterality Volume Impressions 01/16/2021 12:17 PM EST Uncomplicated right CAREY. Thank you for letting us participate in the care of this patient. ??If you are a health care provider and have any questi ons regarding this report, please contact the number below. ??For patients who have questions please contact the health career developer that requested your imaging first. ? Electronically signed by: Jyoti Gutiérrez MD, [facility] ([phone]), at 01/16/2021 12:17 PM Narrative 01/16/2021 12:17 PM EST EXAMINATION: XR PELVIS AND LAT HIP RIGHT (GENERIC) CLINICAL HISTORY: assess hip healing. s/ p thr TECHNIQUE: 2 views of the pelvis and right hip COMPARISON: 05/22/2020 FINDINGS: There has been interval placement of a r ight total hip arthroplasty, which is in near anatomic alignment. No periprosthet ic lucency or fracture. Stable appearance of the left hip. Procedure Note Jyoti Gutiérrez MD - 01/16/2021Formatt ing of this note might be different from the original. EXAMINATION: XR PELVIS AND LAT HIP RIGHT (GENERIC) CLINICAL HISTORY: assess hip healing. s/ p thr TECHNIQUE: 2 views of the pelvis and right hip COMPARISON: 05/22/2020 FINDINGS: There has been interval placement of a r ight total hip arthroplasty, which is in near anatomic alignment. No periprosthet ic lucency or fracture. Stable appearance of the left hip. IMPRESSION Uncomplicated right CARYE. Thank you for letting us participate in the care of this patient. If you are a health care provider and have any questi ons regarding this report, please contact the number below. For patients w ho have questions please contact the health career developer that requested your imaging first. Electronically signed by: Jyoti Gutiérrez MD, [facility] ([phone]), at 01/16/2021 12:17 PM Nish Chávez MD IMG DX ORDERABLES documented in this encounter Visit Diagnoses Diagnosis Status post right hip replacement Hip joint replacement by other means Status post right hip replacement Hip joint replacement by other means documented in this encounter Care Teams Cnc Machine Setter Relationship Specialty Start Date End Date Estee Diaz MD PCP - General Family Medicine 10/28/20 [address] [place] [address] documented as of this encounter
--- OUTSIDE RECORDS SUMMARY | 2021-11-06 15:50 | XMS_ITS | Encounter Summary ---
:1945 Author Organization [facility] [place] [address] Care Team Providers Name Role Phone Estee Diaz MD Primary Care Provider Reason for Visit Reason Onset Date Comments Follow-up 12/22/2020 low grade fever Encounter Details Date Type Department Care Team Description 12/22/2020 Telephone Orthopaedics at Verena Burt Foll ow-up (low grade West Becky RN fever) [address] [place] [address] Social History Tobacco Use Types Packs/Day Years Used Date Former Smoker Quit: 1988 Smokeless Tobacco: Never Used Alcohol Use Standard Drinks/Week Comments Yes 4 (1 standard drink = 0.6 oz pure alcoho l) Sex Assigned at Date Recorded Not on file documented as of this encounter Miscellaneous Notes Telephone Encounter - Verena Hinojosa RN - 12/22/2020 8:24 AM EST Telephone Call 12/22/2020 8:24 AM Caller: Molly Rios 1945 Telephone Information: [phone] (home) Problem/Question: Patient contacted clinic relaying that she had a fever of 99.4 last night that then broke this morning closer to her normal temperature level of 97.0 and was curious to know whether or not she should do anything different in her routine from S/P right CAREY-DAA with Dr Chávez on 12/16/20. Patient relayed that she did experience some chills, but denied muscle aches, increased swelling tothe incisional area or lower extremities, itchiness, foul odor, discharge, redness of the incision. Patient indicated that the RT hip mid-sectional crease to the incision is rather sore and tender withdiscoloration associated with bruise-like nature. Patient indicated that in terms of pain, it is about the same as before noticing the fever with a slight stitches pulling sensation for when she moves.Patient indicated that she did take tylenol 500 mg last night and then again this am. Patient did indicate that the red streaks noted on her RT groin have completely subsided. Outcome: Relayed to patient that temperature changes happen after major surgery usually still withinthis timeframe and to continue to monitor things very closely over the next couple of days with no changes necessary to her regimen. Patient will continue to take tylenol as needed, ice, elevate, walk around. Patient instructed to provide photo for the office when PT comes to change the bandage tomorrow of the incision for confirmation of the dissipation of redness of the RT groin. Patient in agreement with plan. Plan/Follow up: Pt instructed to call should symptoms change, worsen, or not resolve in the next couple of days. Verena Hinojosa RN documented in this encounter Plan of Treatment Not on filedocumented as of this encounter Visit Diagnoses Not on filedocumented in this encounter Care Teams Shearing Machine Tender Relationship Specialty Start Date End Date Estee Diaz MD PCP - General Family Medicine 10/28/20 [address] [place] [address] documented as of this encounter
--- OUTSIDE RECORDS SUMMARY | 2021-11-06 15:50 | XMS_ITS | Encounter Summary ---
:1945 Author Organization [facility] [place] [address] Care Team Providers Name Role Phone Estee Diaz MD Primary Care Provider Encounter Details Date Type Department Care Team Description 12/18/2020 Telephone Orthopaedics at [facility] Robert Genao, RN [address] [place] [address] Social History Tobacco Use Types Packs/Day Years Used Date Former Smoker Quit: 1988 Smokeless Tobacco: Never Used Alcohol Use Standard Drinks/Week Comments Yes 4 (1 standard drink = 0.6 oz pure alcoho l) Sex Assigned at Date Recorded Not on file documented as of this encounter Miscellaneous Notes Telephone Encounter - Robert Genao, RN - 12/18/2020 11:16 AM EDT Molly Rios is contacted by the office today to follow up with then and check in to see how they're doing since their recent surgery. Molly Rios is status post right CAREY-DAA which was performed on 12/16/20 by Nish Chávez MD . The patient states: I am doing ok The patient states that she does not have questions regarding her post operative instructions. The patient is advised to call the clinic with any concerns or questions that may arise. The patienthas a follow up appointment scheduled for 01/16/21. The patient denies fever or chills. The patient reports that dressing is clean dry and intact without discharge or redness. Patient reports pain at a on a scale of 0/10. Patient reports that they are icing the surgical site, resting, andelevating appropriate. Patient reports taking , Meloxicam 15 mg daily, acetaminophen 1000 mg every eight hours in conjunction withTramodol 50 mg as every 4 hours as needed for pain. Patient has 5 pillsremaining our of 5 pills dispensed. Patient is partial weight bearing and is using a walker for ambulation. Patient is currently taking aspirin 81 mg for DVT prophylaxis. Patient has had a bowel movement since surgery. Patient denies nausea, but endorses flatulence and bloating. Patient was instructed to continue miralax and colace daily for the duration of the opioids. Patient has been contacted by [facility]. documented in this encounter Plan of Treatment Not on filedocumented as of this encounter Visit Diagnoses Not on filedocumented in this encounter Care Teams Stake Driver Relationship Specialty Start Date End Date Estee Diaz MD PCP - General Family Medicine 10/28/20 [address]oni [address] [place] [address] documented as of this encounter
--- OUTSIDE RECORDS SUMMARY | 2021-11-06 15:50 | XMS_ITS | Encounter Summary ---
:1945 Author Organization [facility] [place] [address] Care Team Providers Name Role Phone Estee Diaz MD Primary Care Provider Encounter Details Date Type Department Care Team Description 10/29/2020 Notes Only Orthopaedics at [facility] Katie, Francesca Marvin, [facility] [address] [place] [address] Social History Tobacco Use Types Packs/Day Years Used Date Former Smoker Quit: 1988 Smokeless Tobacco: Never Used Sex Assigned at Date Recorded Not on file documented as of this encounter Plan of Treatment Not on filedocumented as of this encounter Visit Diagnoses Not on filedocumented in this encounter Care Teams China Decorator Relationship Specialty Start Date End Date Estee Diaz MD PCP - General Family Medicine 10/28/20 [address] [place] [address] documented as of this encounter
--- OUTSIDE RECORDS SUMMARY | 2021-11-06 15:50 | XMS_ITS | Encounter Summary ---
:1945 Author Organization [facility] [place] [place] [address] Care Team Providers Name Role Phone Kevin Miranda MD Primary Care Provider Encounter Details Date Type Department Care Team Description 07/02/2020 Orders Only Orthopaedics at Nish Herrera, Pain in right hip Brett Pena MD (Primary Dx) [address] [place] [address] [phone] [place] [address] Social History Tobacco Use Types Packs/Day Years Used Date Former Smoker Smokeless Tobacco: Never Used Sex Assigned at Date Recorded Not on file documented as of this encounter Plan of Treatment Not on filedocumented as of this encounter Visit Diagnoses Diagnosis Pain in right hip - Primary Pain in joint, pelvic region and thigh documented in this encounter Care Teams Medical Collector Relationship Specialty Start Date End Date eKvin Miranda MD PCP - General Family Medicine 06/30/20 10/27/20 [address] [place] [address] documented as of this encounter
--- OUTSIDE RECORDS SUMMARY | 2021-11-06 15:50 | XMS_ITS | Encounter Summary ---
:1945 Author Organization [facility] [place] [address] Care Team Providers Name Role Phone Estee Diaz MD Primary Care Provider Reason for Visit Auth/Cert Specialty Diagnoses / Procedures Referred By Contact Refer red To Contact Diagnoses Unilateral primary osteoarthritis, right hip right hip DJD Procedures PRO TOTAL HIP ARTHROPLASTY TOTAL HIP ARTHROPLASTY, ANTERIOR APPROACH (WRVU 20.72) MODIFIER FERRIS & NEPHEW - POLAR STEM CEMENTLESS MODIFIER FERRIS & NEPHEW - R3 ACETABULAR CUP Referral ID Status Reason Start Date Expiration Date Visits Requ ested Visits Authorized [id number] 1 1 Encounter Details Date Type Department Care Team Description 12/16/2020 Ancillary Procedure Radiology [place]ray at [facility] [place] [address] Social History Tobacco Use Types Packs/Day [...] Priority Date/Time Associated Diagnosis Comme nts XR FLUORO NO RAD Routine 12/16/2020 10:47 AM Resu lts for this <1HR - OR USE EDT procedure are in the results section. documented in this encounter Results XR Fluoro No Rad <1Hr - OR Use (12/16/2020 10:47 AM EDT) Specimen (Source) Anatomical Location Collection Method / Collectio n Time Received Time / Laterality Volume Narrative Dicom, Auditing User - 12/16/2020 10:48 AM EDT This exam is auto-finalizing. No interpr etation was done. Nish Chávez MD IMG FLUORO ORDERABLES documented in this encounter Visit Diagnoses Not on filedocumented in this encounter Care Teams Process Environmental Technician Relationship Specialty Start Date End Date Esete Diaz MD PCP - General Family Medicine 10/28/20 [address] [place] [address] documented as of this encounter
--- OUTSIDE RECORDS SUMMARY | 2021-11-06 15:50 | XMS_ITS | Encounter Summary ---
:1945 Author Organization [facility] [place] [address] Care Team Providers Name Role Phone Estee Diaz MD Primary Care Provider Reason for Visit Reason Onset Date Comments Follow-up 11/25/2020 Encounter Details Date Type Department Care Team Description 11/25/2020 Telephone Orthopaedics at [facility] [place] [address] Social History Tobacco Use Types Packs/Day Years Used Date Former Smoker Quit: 1988 Smokeless Tobacco: Never Used Sex Assigned at Date Recorded Not on file documented as of this encounter Miscellaneous Notes Telephone Encounter - Robert Genao RN - 11/25/2020 12:09 PM EDT Telephone Call 11/25/2020 12:10 PM Caller: Molly Rios 1945 Telephone Information: [phone] (home) Problem/Question: Patient is scheduled for right total hip arthroplasty on 12/16/[address] Chávez.Patient was called today to review joint school. I called her home phone and her cell phone no answer on either phone. Left message for patient to call back. Outcome: Waiting for patient to call back regarding joint school. Plan/Follow up: Will reviewed joint school information with patient when she calls back. Robert Genao RN documented in this encounter Plan of Treatment Not on filedocumented as of this encounter Visit Diagnoses Not on filedocumented in this encounter Care Teams Professor Of Biostatistics Relationship Specialty Start Date End Date Estee Diaz MD PCP - General Family Medicine 10/28/20 [address] [place] [address] documented as of this encounter
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
--- OUTSIDE RECORDS SUMMARY | 2021-11-06 15:50 | XMS_ITS | Encounter Summary ---
:1945 Author Organization [facility] [place] [address] Care Team Providers Name Role Phone Estee Diaz MD Primary Care Provider Reason for Visit Reason Comments Right Hip Pain consent signing Encounter Details Date Type Department Care Team Description 10/31/2020 Office Visit [facility] at [facility] ary osteoarthritis Brett Pena MD of right hip [address] [place] [phone] [place] [address] Social History Tobacco Use Types Packs/Day Years [...] - - Weight 59 kg (130 lb) 10/31/2020 10:52 AM EDT Height 171.5 cm (5' 7.5) 10/31/2020 10:52 AM EDT Body Mass Index 20.06 10/31/2020 10:52 AM EDT documented in this encounter Progress Notes Nish Chávez MD - 10/31/2020 11:00 AM EDT Review of Systems: Constitutional: Denies fever, chills, fatigue Cardiovascular: Denies chest pain Respiratory: Denies shortness of breath Gastrointestinal: Denies nausea, vomiting, diarrhea, constipation or abdominal pain Neurovascular: Denies numbness or tingling Musculoskeletal: Admits right hip pain Psychiatric: Mood and affect appropriate Opioid Risk Tool Female Male 1. Family history of Substance Abuse Alcohol [] 1 [] 3 Illegal Drugs [] 2 [] 3 Prescription Drugs [] 4 [] 4 2. Personal History of Substance Abuse Alcohol [] 3 [] 3 Illegal Drugs [] 4 [] 4 Prescription Drugs [] 5 [] 5 3. Age (scotty box if 16-45) [] 1 [] 1 4. History of Preadolescent Sexual Abuse [] 3 [] 0 5. Psychological Disease Attention Deficit Disorder, Obsessive Compulsive D/o, Bipolar, Schizophrenia [] 2 [] 2 Depression [] 1 [] 1 TOTAL: Comments about ORT in relation to this patient: Opioid Risk Category: low risk 0-3 PHYSICAL EXAM: Ht 171.5 cm (5' 7.5) Wt 59 kg (130 lb) BMI 20.06 kg/m?? Constitutional: alert, in no acute distress, well-developed, well-nourished, well-groomed, body habitus normal Head/Face: Atraumatic, normocephalic General: alert and oriented. She appears in no acute discomfort and is resting comfortably in a chair in the exam room. Lumbar/Pelvis: Full ROM of lumbar spine in all planes, no point tenderness, no SI joint tenderness Gait/Station: Minimally antalgic gait, Station normal . Right lower extremity : Hip: Inspection/Palpation: no tenderness to palpation, no greater trochanteric tenderness, no effusion, no warmth, no swelling Range of Motion: FF 0- 120 degrees, ER 45 degrees, IR 10 degrees, ABD 25 degrees Strength: strength 5/5 Stability: no joint instability Test/Signs slight crepitation with patella translation, active straight leg raise with no pain Thigh: no tenderness, no ecchymosis, no swelling Knee : Full ROM with no tenderness to palpation Lower leg: No tenderness to palpation, no swelling, no ecchymosis Left lower extremity : Hip: Inspection/Palpation: no tenderness to palpation, no greater trochanteric tenderness, no effusion, no warmth, no swelling Range of Motion: FF 0- 125 degrees, ER 45 degrees, IR 20 degrees, ABD 45 degrees Strength: strength 5/5 Stability: no joint instability Test/Signs slight crepitation with patella translation, active straight leg raise with no pain Thigh: no tenderness, no ecchymosis, no swelling Knee : Full ROM with no tenderness to palpation Lower leg: No tenderness to palpation, no swelling, no ecchymosis Muscle tone: tone normal Leg Length Discrepancy: No Skin: no erythema present, no ecchymosis present, no signs of skin lesions or infection Sensation: :sensation to light touch intact in lower extremities, neurovascularly intact Mental status Examination: grossly oriented to person, place and time Mood and Affect: mood normal, affect appropriate Impression/Plan: Molly Rios has failed with nonoperative management for severely symptomatic right hip osteoarthritis. Currently, the hip is causing ongoing discomfort, limitations in activities, and is now causing impairment to the quality of life. Imaging confirms severe degenerative changes.Risks and benefits of hip replacement have been thoroughly discussed, patient understands the procedure, the implant to be used has been explained, the hospitalization including anesthesia has been reviewed. Clear expectations for recovery have been laid out, as have risks and benefits. It was emphasized that not all patients - perhaps up to 10% - who undergo hip replacement do not experience complete relief of pain and attainment of desired activity level after surgery. However, having failed to achieve sufficient improvement in function and reduction of discomfort, the patient would like to go ahead with total hip arthroplasty. I Francesca Wilson am acting as scribe for Nish Chávez MD. All work documented was performed by Nish Chávez MD. I, Nish Chávez MD personally performed the services described in this documentation, as scribed by Francesca Wilson is both accurate and complete. Cristo Garcia Jr., RN - 10/31/2020 11:00 AM EDT Surgical Consent -Surgery: Right direct anterior, total hip arthroplasty with a [employer] implant. Date: 11/04/20 - Non-operative options were reviewed: activity modification, physical therapy, medication, injection, assistive devices. The patient has failed with these non- operative modalities. - The patient is significantly impacted with their worsening pain, weakness and decreased range of motion. The pain is affecting their quality of life and ability to perform ADL's. The patient would like to proceed with surgical intervention and will be prepared for surgery at [facility] on 11/04/20. - The consent was reviewed with the patient in its entirety and signed during the office visit today. - I reviewed the surgical as well as non-operative measures, and we discussed the risks of infection, blood clot, fracture, dislocation, leg length inequality, ongoing pain, nerve or blood vessel injury, reoperation and the risk of anesthesia. Pre Op Medical Clearance - The patient has been seen by their PCP and has been medically cleared to proceed with the planned procedure. Pre Op Instructions - No food or drink after midnight the night before surgery. - Hibiclens antimicrobial wash was provided to the patient today. Please wash with Hibiclens the night before surgery and the morning of surgery, paying special attention to the surgical site area. Useclean towels with each shower, put on clean clothes after each shower, and put clean sheets on the bed the night before surgery. You may use your own face wash and shampoo. Recommend avoiding use on genital region. - Confirmed that patient obtained Mupirocin from the pharmacy and reviewed instructions to apply small amount to both nostrils morning and night for 5 consecutive days the week prior to surgery. - You may continue to use NSAIDs for pain control up to the day prior to surgery. (Advil, Motrin, Aleve, ibuprofen, naproxen) - If you take multivitamins containing Vitamin K, Vitamin E, Fish Oil or herbal supplements, you should stop these medications 7 days prior to surgery. - If you take any of the following medications, please contact the office for instructions on when to stop them prior to surgery: methotrexate, Arava (leflunomide), Gold, Azulfidine (sulfasalazine), Plaquenil (hydroychloroquine), Imuran (azathioprine), cyclosporine, Cytoxan (cyclophosphamide), Cuprimine (penicillamine), Enbrel (etanercept ), Humira (adalimumab), Remicade (infliximab), Kineret (anakinra), Rituxan (rituximab). 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 Sleep Apnea: - Have you ever been diagnosed with sleep apnea? no - If you have a CPAP (continuous positive airway pressure) machine, please bring it with you on the day of surgery. Pre Admission Testing (PAT) - The PAT office will send you a letter in the mail with a phone number and a time to call in. Your 'actual' arrival time will be confirmed the day before surgery by a phone call from the Pre-op staff.If you have not received your letter within a week of your surgery, you can reach the nurses in the PAT office at . DVT Prevention - Have you ever had a clot in your leg (Deep Vein Thrombosis or DVT) or a clot in your lung (Pulmonary Embolism or PE)? no - Have any of your family members ever had a DVT or PE? no - Have you had a personal history of cancer in the last two years? no - Do you have a clotting or bleeding disorder? no - Do you take any blood thinning medications such as Coumadin (warfarin), Plavix (clopidogrel) or Xarelto (rivaraoxaban)? no - The patient has no risk factors for thromboembolic disease, in other words no previous DVT (a clotin your leg) or PE (a clot in your lung), no cancer history in the last 2 years, no family history of DVT, PE or clotting disorder and consequently we will use aspirin 81 mg by mouth twice a day for 4 weeks after surgery for clot prevention. Post Op Instructions -Pain medication will be prescribed upon discharge from the hospital -Narcotic pain medications can cause constipation. We recommend taking over the counter Colace (docusate) 100mg by mouth twice daily while taking the pain medication. - After surgery, you can also use Tylenol (acetaminophen) for pain. Extra Strength Tylenol 500mg tablets. Take 2 tablets, 3 times a day. DO NOT EXCEED 3000mg in a 24 hour period. Anesthesia and code status - Anesthesia: Spinal and Sedation Code Status: Full code. Rehabilitation and Post Op Instructions - Rehabilitation: The patient plans to go home after surgery with [facility] for Physical Therapy. - Expected Length of Stay in hospital:1-2 days - Support at home after surgery: Family - Best phone number to reach you at after surgery: [phone] - You may shower the day after surgery. No baths, pools , hot tubs or submerging the incision for 1 month post-op or until the wound is completely healed. - Disposition: A post-operative follow-up appointment has already been scheduled. - No driving for 4 weeks after surgery. - Dressing can be removed 5 days after surgery. You will be given another dressing to apply once thefirst is removed. Remove 5 days after applying. There may be a clear mesh strip over the incision. Please leave this in place for 4 weeks after surgery. - Ice is recommended for 20 minutes of every hour. - Bruising, swelling and pain are to be expected during the post-operative recovery period and should resolve over time. Please keep in mind that the initial recovery period is four weeks and total recovery is one year. - Some numbness, burning or stinging can be a normal part of healing after surgery. - Lifting restriction of 10lbs for post-operative month 1, then lifting restriction of 20 lbs for post-op months 2 and 3. Avoid high impact exercises. Avoid twisting motions. Do not pivot on your operative leg. Returning to high impact/endurance activities should be to tolerance after post-op month 3. Additional Instructions - No dental procedures for 1 month PRIOR to surgeryand 6 months AFTER surgery. Please call us for antibiotics prior to any dental work. - Bring your walker with you on the day of surgery. Physical therapy will adjust the height for you and assist with proper use. - Post-op follow-up visits are scheduled at 1 month, 3 months, 1 year, 5 year, 10 years. You will have x-rays at all of these visits with the exception of the 3 month visit. - If you have any questions, please call us at . You can ask to speak with any of our Registered Nurses. - Patient was provided with the Opioid Factsheet, material reviewed and patient verbalized understanding. documented in this encounter Plan of Treatment Not on filedocumented as of this encounter Visit Diagnoses Diagnosis Primary osteoarthritis of right hip Primary localized osteoarthrosis, pelvic region and thigh documented in this encounter Care Teams Line Service Attendant Relationship Specialty Start Date End Date Estee Diaz MD PCP - General Family Medicine 10/28/20 [address] [place] [address] documented as of this encounter
--- OUTSIDE RECORDS SUMMARY | 2021-11-06 15:50 | XMS_ITS | Encounter Summary ---
:1945 Author Organization [facility] [place] [address] Care Team Providers Name Role Phone Kevin Miranda MD Primary Care Provider Reason for Visit Reason Onset Date Comments Follow-up 09/18/2020 Encounter Details Date Type Department Care Team Description 09/18/2020 Telephone Orthopaedics at [facility] Robert Floyd, RN Follow-up [address] [place] [address] Social History Tobacco Use Types Packs/Day Years Used Date Former Smoker Quit: 1988 Smokeless Tobacco: Never Used Sex Assigned at Date Recorded Not on file documented as of this encounter Miscellaneous Notes Telephone Encounter - Robert Genao, RN - 09/18/2020 12:36 PM EDT Telephone Call 09/18/2020 12:37 PM Caller: Molly Rios 1945 Telephone Information: [phone] (home) Problem/Question: Patient was placed on Meloxicam 15 mg on 07/16/[address] Chávez. Patient called todaystating that she has had some stomach irritation and small amount of blood when she wipes after a BM. She was not sure what to do. Outcome: Patient was advised to stop the meloxicam for a few days and see how she feels and see if she is not getting blood when she wipes. If she is patient advised to follow up with PCP if she is notgetting blood on the toilet paper to call this office to see if we can find an alternative medication for her. Plan/Follow up: Patient will call with any questions or concerns Robert Genao RN documented in this encounter Plan of Treatment Not on filedocumented as of this encounter Visit Diagnoses Not on filedocumented in this encounter Care Teams Division Sales Manager Relationship Specialty Start Date End Date Kevin Miranda MD PCP - General Family Medicine 06/30/20 10/27/[address] [place] [id number] documented as of this encounter
--- OUTSIDE RECORDS SUMMARY | 2021-11-06 15:50 | XMS_ITS | Encounter Summary ---
:1945 Author Organization [facility] Address [address] [place] [address] Care Team Providers Name Role Phone Estee Diaz MD Primary Care Provider Reason for Visit Auth/Cert Specialty Diagnoses / Procedures Referred By Contact Refer red To Contact Diagnoses Unilateral primary osteoarthritis, right hip right hip [facility] Procedures PRO TOTAL HIP ARTHROPLASTY TOTAL HIP ARTHROPLASTY, ANTERIOR APPROACH (WRVU 20.72) MODIFIER CLEMENTS & NEPHEW - POLAR STEM CEMENTLESS MODIFIER CLEMENTS & NEPHEW - R3 ACETABULAR CUP Referral ID Status Reason Start Date Expiration Date Visits Requ ested Visits Authorized [id number] 1 1 Encounter Details Date Type Department Care Team Description 12/16/2020 - Hospital Encounter Med Surg Unit at [facility] t[facility] post total 12/17/2020 [facility] replacement of right [address] [place], [place] [address] [address] [place], [place] [phone] [id number] Social History Tobacco Use Types Packs/Day Years [...] - - Weight 57.2 kg (126 lb) 12/16/2020 8:24 AM EDT Height 172.7 cm (5' 8) 12/16/2020 8:24 AM EDT Body Mass Index 19.16 12/16/2020 8:24 AM EDT documented in this encounter Discharge Summaries Mari Sandoval PA - 12/17/2020 9:55 AM EDT [facility] Discharge Summary Admit date: 12/16/2020 Expected D/C date: 12/17/2020 Attending Physician: Nish Chávez MD Discharge Physician: MONAE Lindquist Discharge disposition: Home with services Discharge Diagnoses (Hospital Problems) Active Hospital Problems S/P right total hip arthroplasty; Dr. Chávez 12/16/20 Resolved Hospital Problems No resolved problems to display. Active Non-Hospital Problems Diagnosis ??? Problem ??? Traumatic closed nondisplaced [...] both eyes ??? Routine adult health maintenance ??? Plantar fasciitis ??? Backache ??? Osteoarthrosis ??? H/O corneal abrasion ??? Superficial bruising ??? Vertigo ??? History of section ??? Varicose veins ??? Injury of head Follow-up Recommendations for Providers: Follow-up with PCP as Scheduled Follow-up with Ortho at 4 weeks post-op Pending Studies and Lab Data: NA Hospital course: The patient was admitted electively from the same day surgery area, and underwent total replacement of the right Hip using a spinal and sedation anesthetic. The postoperative course followed the postoperative pathway for lower extremity total joint replacement. A multimodal analgesia protocol was used, with intraoperative injection of bupivacaine and additives into the tissues surrounding the operated joint. The patient received pre operative intravenous antibiotics. A referral to physical therapy was ordered, and the goals for safe discharge were reinforced including safe ambulation with an assistive device, stair climbing, and exercises specific to the muscle groups around the replaced joint. Anoccupational therapy referral was also entered, and goals for safe discharge included functional mobility and training in activities of daily living including toileting, dressing, and self-care. Notable medical or safety events related to the hospitalization include the following:None. Significant Procedures, Labs and Imaging Tests: Operations: Procedure(s): TOTAL HIP ARTHROPLASTY, ANTERIOR APPROACH (WRVU 20.72) MODIFIER CLEMENTS & NEPHEW - POLAR STEM CEMENTLESS MODIFIER CLEMENTS & NEPHEW - R3 ACETABULAR CUP 12/16/2020 Other Major Procedures: None Labs: Last wbc, hgb, hct plt Recent Labs 12/17/20 0659 WBC 15.4* HGB 12.5 HCT 36.6 Studies: NA Discharge Medications/Significant Medication Changes: Your Medications New Medications Dose Details acetaminophen 500 mg Tab Commonly known as: Tylenol Take 2 tablets by mouth every 8 hours as needed for Pain. 1,000 mg Quantity: 30 tablet Refills: 1 aspirin EC 81 mg Tbec Take 1 tablet by mouth 2 times daily for 30 days. 81 mg Quantity: 60 tablet Refills: 0 senna-docusate 8.6-50 mg Tab Commonly known as: Pericolace Take 2 tablets by mouth 2 times daily as needed for Constipation. 2 tablet Quantity: 60 tablet Refills: 0 traMADoL 50 mg Tab Commonly known as: Ultram Take 1 tablet by mouth every 4 hours as needed for Pain (Post Operative). 50 mg Quantity: 5 tablet Refills: 0 Continued medications, unchanged Dose Details CALCIUM 500 ORAL Take 2 tablets by mouth every morning. 2 tablet Refills: 0 Citrucel (sucrose) Powd Take 1 packet by mouth nightly. Generic drug: methylcellulose (with Sugar) 1 packet Refills: 0 clonazePAM 0.5 mg Tab Commonly known as: KlonoPIN Take 0.125 mg by mouth nightly as needed. 0.125 mg Refills: 0 doxepin 10 mg Cap Commonly known as: Sinequan TAKE 1 CAPSULE BY MOUTH AT BEDTIME Refills: 0 fluorouraciL 5 % Crea Commonly known as: EFUDEX Refills: 0 meloxicam 15 mg Tab Commonly known as: MOBIC Take 1 tablet by mouth daily. For 30 days following surgery. 15 mg Quantity: 30 tablet Refills: 0 Miralax 17 gram/dose Powd Take 17 g by mouth daily as needed. Generic drug: polyethylene glycoL 17 g Refills: 0 omeprazole 20 mg Cpdr Commonly known as: PriLOSEC TAKE ONE CAPSULE BY MOUTH EVERY DAY FOR A MONTH THEN NEEDED WITH NSAIDS Refills: 0 VITAMIN D3 ORAL Take 1 capsule by mouth every morning. 1 capsule Refills: 0 STOPPED Medications b complex vitamins Cap fish oil-omega-3 fatty acids 1,000 mg Cap ibuprofen 600 mg Tab Commonly known as: Advil mupirocin 2 % Oint Commonly known as: Bactroban TURMERIC ORAL The patient???s preoperative medications were resumed after surgery, see above. Aspirin 81 mg twice daily was ordered as chemical thromboprophylaxis to prevent deep venous thrombosis. The patient was instructed to continue on this regimen for a total of 4 weeks and to avoid for 4 weeks any vitamins (Eand K), herbal or dietary supplements that may affect blood clotting. The patient was specifically told to contact the clinic in cases of visible bleeding, swelling that was painful to manual compression, or extreme cases of swelling. In addition, the following medications were prescribed by the orthopaedic team and prescriptions (when necessary) were provided: - Dilaudid (hydromorphone) 2 mg 1 tablet every 4 hours as needed for pain, Meloxicam 15 mg once daily, Tylenol 1000 mg every 8 hours and Gabapentin (Neurontin) 600 mg nightly for 2 weeks, then taper down to 300 mg nightly for one week, then off. - Aspirin 81 mg twice daily twice daily A full summary of discharge medications was completed by the discharging provider, and reviewed by the nursing staff with the patient before leaving the hospital. Allergies: Allergies Allergen Reactions ??? Hydrocodone-Acetaminophen Other (See Comments) Flushing and Hives Tylenol is okay per pt ??? Opioids - Morphine Analogues ??? Opioids-Meperidine And Related ??? Oxycodone Other (See Comments) Flushing and Hives ASSESSMENT AND PLAN: At the time of discharge, the patient was medically stable, meeting PT and OT goals, had good pain control, no active nausea, and satisfactory bladder and bowel function. They weredischarged with visiting nursing referral, at their request. The following unique medical or postsurgical issues were identified at the time of discharge, and the following plans of care were reviewed: None. Discharge Condition: At the time of discharge patient's vitals were as noted below. Patient Vitals for the past 8 hrs: BP Temp Temp src Resp SpO2 12/17/20 0751 109/64 36.9 ??C (98.4 ??F) Oral 18 96 % Patient Instructions: ACTIVITY: The patient was counseled about gradually resuming activity after joint replacement. Specific limitations were discussed regarding physical activity (no strenuous activity until 3 months after surgery), lifting (no more than 10 lbs for first month, 20 lbs maximum for months 2 and 3, then no formal limit), and the use of assistive devices. The importance of muscle strengthening around the joint was emphasized. Range of motion exercises were taught to the patient and reviewed before discharge, with instructions to continue doing those exercises at home. The patient was told to contact orthopedic clinic at any time with questions, and was specifically counseled on signs and symptoms of infec tion, blood clot, or the types of cardiopulmonary symptoms that should prompt immediate or urgent attention. In addition, the patient was asked to not submerge their incision in water for the first 4 weeks after the operation, even though contact with water such as in a shower is normal and permissible. First follow-up clinic visit will take place 4 weeks after the date of surgery approximately. New radiographs will be obtained of the operated joint during the course of her post-operative follow-up. Patient was counseled specifically about opioid narcotics, the fact that they should be used in conjunction with nonnarcotic pain medication, the fact that their dosage and frequency should be tapered gradually as symptoms allow. Patient Instructions ACTIVITY: You are allowed full weightbearing on the operative leg. If you have had a knee replacement, please do not bend your knee beyond 90 degrees for the first 4 weeks after surgery. Specific limitations regarding physical activity include no strenuous activity until 3 months after surgery, and limited lifting (no more than 10 lbs for first month, 20 lbs for months 2 and 3, then no formal limit).Assistive devices are strongly suggested for safety: typically a walker for 1-2 weeks and then a cane for 2-3 weeks. The importance of muscle strengthening around the joint was emphasized, and you should continue doing the exercises you were taught while at [facility] by the PT and OT staff, including range o f motion and strengthening exercises. We do not suggest any outpatient physical therapy appointmentsduring the first 2 weeks after surgery. Rather, you should do exercises at home (with or without a visiting PT), and start outpatient PT on the third week after surgery. You should apply the ice packs to the operative site every day for the first month after surgery (30 minutes on, 30 minutes off). You may ice at night as well, but this is optional. Please contact orthopedic clinic at any time with questions, and be sure you can recognize signs and symptoms of infection (fevers, redness, drainage, increased pain), blood clot (tense or firm calf that hurts to squeeze), or the types of cardiopulmonary symptoms that should prompt immediate or urgent attention (chest pain or pressure, or shortness of breath). Standing and walking is allowable for up to 20 minutes every hour, but not more. Doing too much walking or standing in the first months can lead to swelling and this could slow down your recovery. INCISION: You should not submerge your incision underwater for the first 4 weeks after the operation(no tubs or swimming), but contact with water such as in a shower is allowed. The bandage (dressing)over your operated joint should be removed and a new bandage applied 4-5 days after surgery. The second bandage may be removed after 4-5 days and the incision left open to air.. There may be a clear mesh strip over your incision. Please leave this in place for 4 weeks after surgery. After the final bandage is removed, the incision may be left open to the air uncovered. Do not be surprised if you get bruising in the leg that you had surgery on, sometimes it can be quite extensive and other times quite minimal. It will go away after about one month. If you have oswald, these will need to be removed 10-14 days after surgery. PAIN & PAIN MEDICATION: The numbing medicine that was injected around your operated joint will wear off 48-72 hours after surgery, and you may notice an increase in pain and aching at that time. Tominimize an unpleasantly dramatic increase in pain, we ask that you continue the same schedule of pain medication that you were doing while at [facility]. Be sure to understand your pain medication plan before you leave the hospital and remember to berry picker machine operator all prescriptions at the pharmacy. DVT PROPHYLAXIS: Aspirin 81mg by mouth twice daily for 4 weeks FOLLOW-UP: Your first follow-up clinic visit will take place approximately 4 weeks after the date ofsurgery. The time and date of your appointment should be in your pre-operative paperwork, but if youcannot find them then please contact the clinic at . Future Appointments Date Time Provider Department Center 01/16/2021 11:30 AM Mari Sandoval PA [facility] 02/20/2021 1:00 PM Mari Sandoval PA [facility] General Instructions None Future Appointments and Orders Future Appointments and Orders Future Appointments Provider Department Dept Phone 01/16/2021 11:30 AM Mari Sandoval PA Orthopaedics at [facility] Arrive at: [facility] Level 02/20/2021 1:00 PM Mari Sandoval PA Orthopaedics at [facility] Arrive at: [facility] Future Orders Complete By Expires Referral to Home Health - at DISCHARGE [[id number] CPT(R)] As directed Process Instructions: Scheduling Instructions: Comments: DOCUMENTATION FOR VNA SERVICES (INCLUDING THOSE PATIENTS WITH MEDICARE COVERAGE REQUIRING HOME VNA SERVICES AND/OR HOSPICE SERVICES) PATIENT'S LOCATION: Molly Rios [address] [place] [id number] (home) Cell: Telephone Information: Solder Cream Maker's Name: Medhat/Self In discussion with the attending physician, it is certified that this patient is under their care and that they, or a Nurse Practitioner,Clinical Nurse specialist or Physician Pole Peeling Machine Operator Helper who is working directly with them, had a face to face encounter that meets the physician face to face encounter requirements with this patient on 12/17/2020 (MD please enter DC date here) The encounter with the patient was in whole, or in part, for the following medical condition, which is the primary reason for home health care services: CAREY In discussion with the provider, it is certified that, based on their findings, the following services are medically necessary for home health services. To provide the following care/treatments with the clinical findings supporting the need for servicesas follows: HOME CARE ORDERS: PT ORDERS: Continue rehab for endurance, gait stability and strength with mobility and transfers. Home safety evaluation. Home exercise program if appropriate. OT: assess and continue rehab for managing ADL's. HOME HEALTH CARE AGENCY: [facility] PHONE: [phone] FAX: [phone] Start of care: 24-48 hours post dc FOR MEDICARE ONLY: (please delete this section if not Medicare) In discussion with the attending physician, it is certified that the clinical findings support that this patient is homebound because absences from home require considerable and taxing effort due to: Unable to ambulate community surfaces or distances unassisted due to pain, LE weakness or decreased balance and risk for falls Restricted mobility due to LE strength and motion due to recent surgery Unsteady Gait, poor balance , requiring assistive devices and/or assistance of another Please note that any additional orders needs or changes will need to be obtained from this patient'sPCP: MD Toni Suggs [address] / [facility] [id number] All A agencies which cover the area of patient's residence have been reviewed, either verbally or in writing, and patient/family have chosen the home health care agency noted Questions: Agency name and contact information: [facility] Patient location post discharge: home What services are requested: Physical Therapy Occupational Therapy Start date: Responsible MD post discharge contact info: PCP Inpatient Provider Contact Information: For questions regarding this summary or this inpatient hospitalization, please call the [facility] Orthopedic Office at [phone]. MONAE Lindquist 12/17/2020 documented in this encounter Discharge Instructions Patient InstructionsMari Sandoval PA - 12/16/2020 9:26 AM EDT ACTIVITY: You are allowed full weightbearing on the operative leg. If you have had a knee replacement, please do not bend your knee beyond 90 degrees for the first 4 weeks after surgery. Specific limitations regarding physical activity include no strenuous activity until 3 months after surgery, and limited lifting (no more than 10 lbs for first month, 20 lbs for months 2 and 3, then no formal limit).Assistive devices are strongly suggested for safety: typically a walker for 1-2 weeks and then a cane for 2-3 weeks. The importance of muscle strengthening around the joint was emphasized, and you should continue doing the exercises you were taught while at [facility] by the PT and OT staff, including range o f motion and strengthening exercises. We do not suggest any outpatient physical therapy appointmentsduring the first 2 weeks after surgery. Rather, you should do exercises at home (with or without a visiting PT), and start outpatient PT on the third week after surgery. You should apply the ice packs to the operative site every day for the first month after surgery (30 minutes on, 30 minutes off). You may ice at night as well, but this is optional. Please contact orthopedic clinic at any time with questions, and be sure you can recognize signs and symptoms of infection (fevers, redness, drainage, increased pain), blood clot (tense or firm calf that hurts to squeeze), or the types of cardiopulmonary symptoms that should prompt immediate or urgent attention (chest pain or pressure, or shortness of breath). Standing and walking is allowable for up to 20 minutes every hour, but not more. Doing too much walking or standing in the first months can lead to swelling and this could slow down your recovery. INCISION: You should not submerge your incision underwater for the first 4 weeks after the operation(no tubs or swimming), but contact with water such as in a shower is allowed. The bandage (dressing)over your operated joint should be removed and a new bandage applied 4-5 days after surgery. The second bandage may be removed after 4-5 days and the incision left open to air.. There may be a clear mesh strip over your incision. Please leave this in place for 4 weeks after surgery. After the final bandage is removed, the incision may be left open to the air uncovered. Do not be surprised if you get bruising in the leg that you had surgery on, sometimes it can be quite extensive and other times quite minimal. It will go away after about one month. If you have oswald, these will need to be removed 10-14 days after surgery. PAIN & PAIN MEDICATION: The numbing medicine that was injected around your operated joint will wear off 48-72 hours after surgery, and you may notice an increase in pain and aching at that time. Tominimize an unpleasantly dramatic increase in pain, we ask that you continue the same schedule of pain medication that you were doing while at [facility]. Be sure to understand your pain medication plan before you leave the hospital and remember to berry picker machine operator all prescriptions at the pharmacy. DVT PROPHYLAXIS: Aspirin 81mg by mouth twice daily for 4 weeks FOLLOW-UP: Your first follow-up clinic visit will take place approximately 4 weeks after the date ofsurgery. The time and date of your appointment should be in your pre-operative paperwork, but if youcannot find them then please contact the clinic at . Future Appointments Date Time Provider Department Center 01/16/2021 11:30 AM Mari Sandoval PA [facility] 02/20/2021 1:00 PM Mari Sandoval PA [facility] documented in this encounter Medications at Time of Discharge Medication Sig Dispensed Refills Start Date End Date polyethylene glycoL Take 17 g by mouth 0 (Miralax) 17 gram/dose daily as needed. Powder methylcellulose, with Take 1 packet by 0 Sugar, (Citrucel, mouth nightly. sucrose,) Powder doxepin (Sinequan) 10 mg TAKE 1 CAPSULE BY 0 /09/2020 Capsule MOUTH AT BEDTIME calcium carbonate Take 2 tablets by 0 (CALCIUM 500 ORAL) mouth every morning. cholecalciferol, vitamin Take 1 capsule by 0 D3, (VITAMIN D3 ORAL) mouth every morning. aspirin EC 81 mg Tablet, Take 1 tablet by 60 tablet 0 12/1701/16/2021 Delayed Release (E.C.) mouth 2 times daily for 30 days. acetaminophen (Tylenol) Take 2 tablets by 30 tablet 1 12/1706/10/2021 500 mg Tablet mouth every 8 hours as needed for Pain. senna-docusate Take 2 tablets by 60 tablet 0 12/17/2020 (Pericolace) 8.6-50 mg mouth 2 times daily Tablet as needed for Constipation. traMADoL (Ultram) 50 mg Take 1 tablet by 5 tablet 0 202002/20/2021 Tablet mouth every 4 hours as needed for Pain (Post Operative). fluorouraciL (EFUDEX) 5 % 0 12/04/2020 06/10/2021 Cream clonazePAM (KlonoPIN) 0.5 Take 0.125 mg by 0 09/0 04/202002/20/2021 mg Tablet mouth nightly as needed. meloxicam (MOBIC) 15 mg Take 1 tablet by 30 tablet 0 202002/20/2021 TabletIndications: mouth daily. For 30 Primary osteoarthritis of days following right hip surgery. omeprazole (PriLOSEC) 20 TAKE ONE CAPSULE BY 0 06/10/2021 mg Capsule, Delayed MOUTH EVERY DAY FOR Release(E.C.) A MONTH THEN NEEDED WITH NSAIDS documented as of this encounter Progress Notes Jeanette Mckeon RN - 12/17/2020 11:11 AM EDT Molly Gabriel discharged per provider order to home with VNA via . All IV???s removed. Discharge instructions reviewed with patient. All questions or concerns answered at this time. Patient encouraged to call with any further questions or concerns. Copy of After Visit Summary given to patient at time of discharge. All personal belongings returned to patient, including prescription medications. Patient assisted to personal vehicle via staff member. Jeanette Mckeon RN, 12/17/2020 Mari Sandoval PA - 12/17/2020 9:51 AM EDT [facility] ORTHOPAEDIC PROGRESS NOTE Admit Date: 12/16/2020 Hospital Day 0 days ATTENDING: Nish Chávez M.D. Problem List-based Assessment & Plan: No notes have been filed under this hospital service. Service: Orthopaedics Active Non-Hospital Problems Diagnosis ??? Problem ??? Traumatic closed nondisplaced [...] both eyes ??? Routine adult health maintenance ??? Plantar fasciitis ??? Backache ??? Osteoarthrosis ??? H/O corneal abrasion ??? Superficial bruising ??? Vertigo ??? History of section ??? Varicose veins ??? Injury of head History of Present Illness: Molly Rios is a 75 y.o. female. Status post right Hip arthroplasty ROS: Negative Significant 24 hour events: Feeling well, pain is well controlled. Tolerating PO, no N/V. No CP/SOB. Voiding without difficulty.OOB with PT/OT, meeting safety goals. Infusions: ??? lactated ringers infusion 1,000 mL Intravenous Continuous ### Peripheral IV Line - Single Lumen 12/16/20 0845 cephalic vein (lateral side of arm), right 20 gauge (Active) Indication/Daily Review of Necessity medication therapy intermittent 12/17/20 0834 Site Preparation/Maintenance site cleansed: 70% alcohol 12/16/20 1950 Securement catheter stabilization device, secured with 12/17/20833 Patency/Maintenance flushed without difficulty 12/17/20833 Phlebitis 0-->no symptoms 12/17/20 08 Infiltration 0-->no symptoms 12/17/20 08 Site Signs/Symptoms no drainage; no streak formation; no palpable cord; no pain; no warmth; no swelling; no redness 12/16/20 1106 Incision 12/16/20 101 greater trochanter (Active) Incision WDL ex 12/17/20833 Dressing Appearance dry; intact 12/17/20833 Appearance no warmth; no tenderness; no swelling; no redness; no drainage 12/16/20 110 Dressing foam 12/16/201949 MEDICATIONS: Scheduled Meds: ??? doxepin 10 mg Oral Nightly ??? sodium chloride 0.9 % (flush) 3 mL Intravenous 2 times per day ??? senna-docusate 1 tablet Oral BID ??? acetaminophen 500 mg Oral Q4H PRERNA ??? ketorolac 15 mg Intravenous Q6H ??? aspirin EC 81 mg Oral BID ??? gabapentin 300 mg Oral Nightly ??? pantoprazole EC 40 mg Oral Daily ??? lactobacillus with pectin 1 capsule Oral BID Continuous Infusions: ??? lactated Ringers 1,000 mL (12/16/20 1330) Vitals: Patient Vitals for the past 8 hrs: BP Temp Temp src Resp SpO2 12/17/20 0751 109/64 36.9 ??C (98.4 ??F) Oral 18 96 % Intake/Output Summary (Last 24 hours) at 12/17/2020 0952 Last data filed at 12/17/2020 0847 Gross per 24 hour Intake 1840 ml Output 2775 ml Net -935 ml Body mass index is 19.16 kg/m??. EXAM: General: WA. A&O x 3, NAD CV: RRR Resp: No acute distress Right LE: Postop bandage clean, dry and intactCalf and thigh compartments are soft, Homans negative 5/5 DF/PF, distally N/V intact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 Post-operative diagnosis: Same Surgical Procedure Performed: Injection right hip with marcaine 0.25% with epi, 4 mg morphine, ketorolac 30 mg, and Solu-Medrol (40 mg) into skin, subcutaneous and deep tissues, and joint space. Right total hip arthroplasty, anterior Hueter approach with Darien table Right hip intraoperative radiologic examination Findings: Severe OA, mild osteopenia Components Used: Clements and Nephew Polarstem femoral system R3 acetabular system Bearing surface: ceramic on polyethylene Antibiotics: As per orders Irrigation: Plain saline (no additives) Estimated Blood Loss: 75 cc Unexpected Events: None Weight bearing status: Weight bearing as tolerated Wound closure and dressing: Monocryl 4-0 and Prineo dressing. No stitches or oswald to remove. Dressing changes: Surgical dressing to be left in place for 5 days before removal. Follow-up Plan: In 4 weeks post-operatively with televideo appointment if there are no significant concerns. Anticoagulation: As per postop orders Possible barriers to discharge: None Plan for hospital stay: Standard Anticipated Length of Stay: 1 days. Special orders: No dislocation precautions, no abduction pillow. Please use SCDs on both legs This is a patient who has failed nonoperative treatment for severely symptomatic hip osteoarthrosis,including activity modification, pain and anti-inflammatory medications, and physical therapy. Patient continues to have significant activity limiting disability that is reducing quality of life. Priorto this procedure, informed consent was obtained and the patient was fully educated about surgical as well as nonoperative options. Patient understood the benefits of total hip arthroplasty as including a potential reduction of pain and improve joint function. Also understood were potential risks of infection, deep venous thrombosis, pulmonary embolus, stroke, fracture, continued pain or stiffness, bl eeding, nerve or blood vessel injury, implant failure that may require further surgical procedures and possible cardiopulmonary morbidity or . Patient understood and elected to proceed with the following procedure. Technique: Patient was taken to the operating room and a spinal anesthetic was induced. According to AAOS recommendations, prophylactic antibiotics were administered within one hour of incision time, 1 g intravenous tranexamic acid. A timeout was performed. Patient was positioned supine on the Darien table, both feet and ankles were padded and then carefully placed in the traction boots. The perineal post was also padded with webril. The patient was then prepped and draped in the usual sterile manner using alcohol and then DuraPrep. Hip Exposure and capsulotomy: We marked out a vertical incision over the anterior aspect of the hip,proceeding distally about 9 cm. Marcaine 0.25% plain (10 cc) anesthetic was infiltrated into the skin. Incision was then made and the subcutaneous fat was held apart with small self-retaining retractors. The fascia of the TFL was identified, infiltrated with local anesthetic and then cut longitudinally. The anterior extent of this fascia was held into Allis clamps. Using blunt dissection, the tensor fascia muscle was freed from surrounding tissues and, reflected posteriorly with a Mark retractor. This exposed the anterior hip capsule, and the narrow femoral retractor was placed over the superior femoral neck, a rounded Cobra retractor was placed inferiorly beneath the femoral neck. The perforating leashes of vessels (anterior circumflex artery and veins) were identified and carefully coagulated.The capsule was then infiltrated with the anesthetic mixture, and an L-shaped capsulotomy was then ma de with cautery, one limb in line with the superior femoral neck and the other in a perpendicular direction at the base of the neck. Both neck retractors were then placed intracapsular, synovial fluid was suctioned and visible osteophytes were removed. Dislocation and femoral neck cut: The femoral neck was cut twice with a reciprocating saw, once at the anticipated resection site and once more proximally to assist with head removal. A corkscrew on power was then inserted into the femoral head. Four cranks of gross traction were placed on the operated leg, with 60 degrees external rotation, and this allowed distraction of the head from the socket. It also allowed for removal of the femoral head. Acetabular exposure and preparation: Curved retractors were placed anteriorly and posteriorly over the wall of the acetabulum. The femur was translated lateral and posterior to the acetabulum. This allowed excellent acetabular exposure, the labrum was then resected and reaming began at 47 mm. We proceeded incrementally up to 49 mm at which time we had circumferential bleeding bone. An acetabular component was placed and found to have excellent rim fit. No screws were placed. The component was then checked under fluoroscopic control, aiming for a lateral abduction of about 40??, and anteversion of about 20??. A liner was placed and impacted according to automatic folder seamer's instructions. Any impinging osteophytes were removed. Attention then turned to the femur. Femoral exposure: After removal of acetabular retractors, the traction was released and the femur was externally rotated to about 100??. The posterior quadrant of the femur was released including the capsule over the mamillary process, allowing anterior mobilization of the femur. A Sanchez retractor was then placed beneath the greater trochanter. A lateral and superior force was applied with a hand placed over the posterolateral extent of the greater trochanter. This allowed the greater trochanter to disengage from the posterior column of the acetabulum and then to elevate the femur anteriorly. While holding the femur in this position, the positioning arm of the operated leg was dropped to full extension and maximal allowable adduction. No HANA hook was used. The femur was then held elevated, a femoral elevator was placed under the calcar and this was used to displace the femur superiorly and laterally. At the same time, the perioperative assistant leaned against the thigh to optimize femoral adduction. At this point, special attention was turned to the soft tissues laterally to the resected femoral neck. Arongeur was used to remove any remnant of the femoral neck and we then proceeded to use a Bovie to reflect circumferentially the soft tissues around the resected neck. Finally, all remaining tissues inthe piriformis fossa were resected using cautery, giving us a clear view of the entire resected neckfootprint, as well as the piriformis fossa and the medialmost aspect of the greater trochanter. Femoral preparation: The rat-tail rasp and then the first broach was used to enter the femoral metaphysis in line with the posterior femoral cortex, at about 10?? of anteversion. The broach was used toenlarge the femoral opening, then broaching continued, applying a force against the greater trochanter to ascertain that the broach remained has fully lateral as possible with every pass. We proceeded with broaching incrementally until a size 3 was fully seated. A trial neck and standard femoral head were placed, the Sanchez retractor was disengaged and fully relaxed. The operated hip was then brought back into neutral position by bringing the leg out of adduction and extension. After neutral position was reestablished, about 90?? of external rotation were placed on the operated leg followed by 2 cranks of gross traction. The acetabulum was irrigated and cleared of all debris, the hip was then internally rotated to 20- ?? external rotation. This allowed easy reduction of the hip. Full rotational ra nge of motion was tested, confirming that there was no impingement of the femoral neck against the acetabular component either anteriorly or posteriorly. Fluoroscopic imaging was used to confirm properoffset and leg length as well as femoral broach position. At this point, 2 cranks of gross traction were placed on the operated leg, again the hip was externally rotated to about 90?? external rotationallowing easy dislocation. All traction was released, and the proximal femur was elevated and pulledlaterally. The position of adduction and hip extension was reestablished by moving the positioning arm on the operated leg and then externally rotating the femur to about 90??. Again, the femur was late ralized and lifted, the Sanchez retractor was then engaged to support this position. All trial implants were removed and the actual femoral implant was then inserted with gentle taps from a mallet, andthe femoral head was then impacted on the clean trunion. Again, the proximal femur was lowered, the M ueller retractor was removed and the leg was brought back to a neutral position, 2 cranks of traction along with 30?? of external rotation were followed by internal rotation to 20?? and release of traction which allowed reduction of the hip joint. Stability testing was carried out to confirm non-dislocatability, and leg length optimization was confirmed with flouroscopy. Closure: After thorough irrigation, and coagulation of any visible bleeders, the capsule was repaired with interrupted Vicryl 1, the tensor fascia joni muscle was allowed to come back to its anatomic position and irrigated, and a running Quill #1 suture was used to close the fascia. Fat was closed with inverted Vicryl zero, more superficially with Vicryl 2-0 and then Monocryl and Prineo were used to close skin, and a dry sterile 4 x 4 dressing was applied and covered with a sterile dressing. All counts were correct. Patient was transferred back to the hospital bed from the Darien table and boots wereremoved. No abduction pillow was placed. The patient returned to the recovery room in stable condition. The surgical device sales representative, MONAE Jessica, worked under my direction for the duration of the operativesession. The perioperative assistant meticulously prepped the operative site and maintained the best possible exposure of anatomy for the procedure for its duration. Implant Information: Implant Name Type Inv. Item Serial No. Pleating Supervisor Lot No. LRB No. Used Action SHELL ACET HIP 50MM POR 3 HOLE TI R3 ([id number]) (AutoReq) - [id number] IMPLANTS SHELL ACET HIP 50MM POR 3 HOLE TI R3 ([id number]) (AutoReq) CLEMENTS [employer] NEPHEW - CLEMENTS NEPH [id number] Right 1 Implanted LINER ACET HIP [id number] 0D POLY R3 ([id number]) (AutoReq) - [id number] IMPLANTS LINER ACET HIP [id number] 0D POLY R3 ([id number]) (AutoReq) CLEMENTS [employer] NEPHEW - CLEMENTS NEPH [id number] Right 1 Implanted STEM FEMORAL HIP SZ 3 PROX 135D POR CLLR STND OFST TI ([id number]) (AutoReq) - [id number] IMPLANTS STEMFEMORAL HIP SZ 3 PROX 135D POR CLLR STND OFST TI ([id number]) (AutoReq) CLE[employer]PHEW - CLEMENTS [id number] Right 1 Implanted HEAD FEMORAL HIP 32MM -3MM OFFSET 12/14 TPR ZIRCNM OXINIUM ([id number]) (AutoReq) - [id number] IMPLANTSHEAD FEMORAL HIP 32MM -3MM OFFSET 12/14 TPR ZIRCNM OXINIUM ([id number]) (AutoReq) [employer]PHEW - CLEMENTS NEPH [id number] Right 1 Implanted TG 0 RG 0 documented in this encounter Plan of Treatment Not on filedocumented as of this encounter Procedures Procedure Name Priority Date/Time Associated Diagnosis Comme nts SCAN, PERIPHERAL Routine 12/17/2020 6:59 Results for this BLOOD AM EDT procedure are i n the results section. HEMOGRAM Routine 12/17/2020 6:59 Results for this AM EDT procedure are i n the results section. DIFFERENTIAL, Routine 12/17/2020 6:59 Results for this AUTOMATED AM EDT procedure are i n the results section. HC VENIPUNCTURE Routine 12/17/2020 6:59 AM EDT BASIC METABOLIC Routine 12/17/2020 6:59 Results f or this PANEL (NON-FASTING) AM EDT procedur e are in the results section. XR FLUORO NO RAD Routine 12/16/2020 10:47 Results for this <1HR - OR USE AM EDT procedure are in the results section. MODIFIER CLEMENTS & 12/16/2020 9:38 Trochanteric bursitis NEPHEW - R3 AM EDT of left hip ACETABULAR CUP Primary osteoarthritis of right hip Pain in right hip MODIFIER CLEMENTS & 12/16/2020 9:38 Trochanteric bursitis NEPHEW - POLAR STEM AM EDT of left hip CEMENTLESS Primary osteoarthritis of right hip Pain in right hip TOTAL HIP 12/16/2020 9:38 Trochanteric bursitis ARTHROPLASTY, AM EDT of left hip ANTERIOR APPROACH Primary osteoarthritis (WRVU 20.72) of right hip Pain in right hip IMPLANTABLE DEVICES 12/16/2020 12:00 SCAN AM EDT documented in this encounter Results Scan, Peripheral Blood (12/17/2020 6:59 AM EDT) P athologist Signature Plat Estimate Normal LABORATORY RBC Morphology Normal LABORATORY Specimen Anatomical Collection Method Collection Time Receive d Time (Source) Location / / Volume Laterality Blood 12/17/2020 6:59 AM 6:59 EDT AM EDT Resulting Agency Comment Spec In Lab [facility] HEMATOLOGY ORDERABLES Performing Organization Address City/State/ZIP Code Phon e Number LABORATORY [address] [place], [place] [address] (ABNORMAL) Differential, Automated (12/17/2020 6:59 AM EDT) Patholo gist Method Time Signature Neutrophils % 83.0 % LABORATORY Neutr Abs (ANC) 12.76 (H) 1.70 - DAY 6.10 LABORATORY x10(3)/mc L Lymphocytes % 6.6 % LABORATORY Lymphocytes Abs 1.0 0.9 - 3.2 DAY x10(3)/ LABORATORY L Monocytes % 9.9 % LABORATORY Monocyte Abs 1.5 (H) 0.3 - 0.9 DAY x10(3)/ LABORATORY L Eosinophils % 0.1 % LABORATORY Eosinophils Abs 0.0 0.0 - 0.4 DAY x10(3)/ LABORATORY L Basophils % 0.2 % LABORATORY Basophils Abs 0.0 0.0 - 0.1 DAY x10(3)/ LABORATORY L Immature Gran % 0.20 % LABORATORY Comment: Immature granulocytes(IG's)percentage an d absolute count will include metamyelocytes, myelocytes, and promyelo cytes. Blood smears from CBCs yielding IG's will be scanned manually for concor dance. If this scan disagrees with the automated IG or if promyelocytes are not ed, a manual differential will be performed. Lesa Gran Abs 0.03 0.00 - 0.04 x10(3)/mcL LABORATORY Specimen Anatomical Collection Method Collection Time Receive d Time (Source) Location / / Volume Laterality Blood 12/17/2020 6:59 AM 6:59 EDT AM EDT Resulting Agency Comment Spec In Lab [facility] HEMATOLOGY ORDERABLES Performing Organization Address City/State/ZIP Code Phon e Number LABORATORY [address] [place], [place] [address] (ABNORMAL) Hemogram (12/17/2020 6:59 AM EDT) P athologist Signature WBC 15.4 (H) 4.0 - 9.5 DAY x10(3)/mcL LABORATORY RBC 3.96 (L) 4.00 - 5.21 LABORATORY x10(6)/mcL Hemoglobin 12.5 11.7 - 15.5 g/dL LABORATORY Hematocrit 36.6 35.7 - 45.8 % LABORATORY MCV 92.4 82.6 - 94.4 fL LABORATORY MCH 31.6 27.1 - 32.0 pg LABORATORY MCHC 34.2 31.7 - 35.0 g/dL LABORATORY Platelets 263 145 - 357 x10(3)/mcL LABORATORY RDWSD 45.4 37.0 - 46.0 fL LABORATORY RDWCV 13.4 11.5 - 14.1 % LABORATORY MPV 10.1 7.6 - 12.9 fL LABORATORY Specimen Anatomical Collection Method Collection Time Receive d Time (Source) Location / / Volume Laterality Blood 12/17/2020 6:59 AM 6:59 EDT AM EDT Resulting Agency Comment Spec In Lab [facility] HEMATOLOGY ORDERABLES Performing Organization Address City/State/ZIP Code Phon e Number LABORATORY [address] [place], [place] [phone] (ABNORMAL) Basic Metabolic Panel (non-fasting) (12/17/2020 6:59 AM EDT) P athologist Signature Glucose Lvl 136 65 - 199 mg/dL LABORATORY Comment: Diabetes: >=200 mg/dL plus symp toms BUN 10 8 - 18 mg/dL LA BOR[facility]ORY Creatinine 0.48 (L) 0.70 - 1.20 mg/dL LABORATORY Sodium 137 135 - 145 mmol/L LABORATORY Potassium 4.0 3.5 - 5.0 mmol/L LABORATORY Comment: Please note: ??Patients with WBC >100,00 0 may have falsely elevated Potassium levels. ??For accurate Potassium quantif ication in these patients send serum separator tube (gold top) for subsequent determinations. ??Contact the Clinical Chemistry Laboratory if there are any qu estions. Chloride 104 98 - 107 mmol/L LABORATORY CO2 22 22 - 31 mmol/L LABORATORY Anion Gap 11 5 - 15 mmol/L L ABORATORY Calcium 9.2 8.5 - 10.5 mg/dL Y LABORATORY Estimated GFR 97 >=60 mL/min/1.73 m?? LABORATORY Comment: This patient? s estimated glomerular filtration rate (eGFR) is between 97 mL/min/1.73 m2 (patients with less muscl e mass per kg body weight) and 113 mL/min/1.73 m2 (patients with more muscl e [...] (Source) Location / / Volume Laterality Blood 12/17/2020 6:59 AM 6:59 EDT AM EDT Resulting Agency Comment Spec In Lab Nish Chávez MD CHEMISTRY ORDERABLES Performing Organization Address City/State/ZIP Code Phon e Number LABORATORY [address] [place], [place] [address] XR Fluoro No Rad <1Hr - OR Use (12/16/2020 10:47 AM EDT) Specimen (Source) Anatomical Location Collection Method / Collectio n Time Received Time / Laterality Volume Narrative Dicom, Auditing User - 12/16/2020 10:48 AM EDT This exam is auto-finalizing. No interpr etation was done. Nish Chávez MD IMG FLUORO ORDERABLES SCAN DOC: IMPLANTABLE DEVICES (12/16/2020 12:00 AM EDT) Narrative This result has an attachment that is no t available. Unknown MEDIA MGR SCAN EXT ORDR/RSLT documented in this encounter Visit Diagnoses Diagnosis Status post total replacement of right h ip documented in this encounter Admitting Diagnoses Diagnosis S/P total hip arthroplasty Hip joint replacement by other means documented in this encounter Administered Medications Inactive Administered Medications - up to 3 most recent administrations Medication Order MAR Action Action Date Dose Rate Site acetaminophen (Tylenol) tablet 500 Given 12/17/2020 8:31 AM EDT 500 mg mg 500 mg, Oral, EVERY 4 HOURS SCHEDULED, First dose on Tue12/16/20 at 1330, Until Discontinued, Maximum dose of acetaminophen is 4000 mg from all sources in 24 hours. When ordered for pain, acetaminophen should be given even when other ordered pain medications are indicated. , Routine Given 12/17/2020 4:04 AM EDT 500 mg Given 12/16/2020 11:22 PM EDT 500 mg aspirin EC tablet 81 mg Given 12/17/2020 8:31 AM EDT 81 mg 81 mg, Oral, 2 TIMES DAILY, First dose on Tue12/16/20 at 1330, Until Discontinued, Routine Given 12/16/2020 8:43 PM EDT 81 mg Given 12/16/2020 1:58 PM EDT 81 mg gabapentin (Neurontin) capsule 300 mg Given 12/16/2020 8:44 PM EDT 300 mg 300 mg, Oral, NIGHTLY, First dose on Tue12/16/20 at 2100, Until Discontinued, Routine ketorolac (Toradol) (15 mg/mL) injection 15 mg Given 12/17/2020 9:41 AM EDT 15 mg 15 mg, Intravenous, EVERY 6 HOURS, 20 doses, First dose on Tue12/16/20 at 1600, Last dose on Tue12/21/20 at 1000, to begin 6 hours post last dose given in OR or PACU, Routine Given 12/17/2020 4:04 AM EDT 15 mg Given 12/16/2020 11:22 PM EDT 15 mg lactated ringers infusion New Bag 12/16/2020 11:18 AM EDT 1,000 mLs 50 mL/hr 1,000 mL, at 50 mL/hr, Intravenous, CONTINUOUS, Starting on Tue12/16/20 at 0845, Until Tue12/16/20 at 1229, Day of Surgery (Day of Procedure) New Bag 12/16/2020 11:00 AM EDT New Bag 12/16/2020 8:45 AM EDT 1,000 mLs 50 mL/hr lactated ringers infusion New Bag 12/16/2020 1:30 PM EDT 1,000 mLs 100 mL/hr 1,000 mL, at 100 mL/hr, Intravenous, CONTINUOUS, Starting on Tue12/16/20 at 1330, Until Tue12/17/20 at 1314 lactobacillus with pectin capsule 1 Given 12/17/2020 8:31 AM EDT 1 capsule capsule 1 capsule, Oral, 2 TIMES DAILY, First dose on Tue12/16/20 at 1330, Until Discontinued, Routine Given 12/16/2020 8:44 PM EDT 1 capsule Given 12/16/2020 1:57 PM EDT 1 capsule ondansetron (pf) (Zofran) (2 mg/mL) inje ction 4 mg 4 mg, Intravenous, EVERY 8 HOURS PRN, St arting on Tue12/16/20 at 1243, Until Tue12/17/20 at 1314, Nausea, Vomiting, May repeat times on e in 30 minutes if ineffective. If multiple antiemetics are ordered, u se ondansetron first, Routine ondansetron (Zofran) tablet 4 mg 4 mg, Oral, EVERY 8 HOURS PRN, Starting on Tue12/16/20 at 1243, Until Tue12/17/20 at 1314, Nausea, Vomiting, If multipl e antiemetics are ordered, use ondansetron first. PO Preferred. If patient unable to take PO, may give IV if ordered. May repeat times one in 45 minutes if ineffective., Routin e pantoprazole EC (Protonix) tablet 40 mg Given 12/17/2020 8:31 AM EDT 40 mg 40 mg, Oral, DAILY, First dose on Tue12/16/20 at 1330, Until Discontinued, DO NOT CRUSH OR OPEN, Routine Given 12/16/2020 1:58 PM EDT 40 mg senna-docusate (Pericolace) 8.6-50 mg per Given 12/17/2020 8 :31 AM EDT 1 tablet tablet 1 tablet 1 tablet, Oral, 2 TIMES DAILY, First dose on Tue12/16/20 at 1330, Until Discontinued, Routine Given 12/16/2020 8:44 PM EDT 1 tablet sodium chloride 0.9 % (flush) (BD PosiFlush Given 12/17/2020 9:0 0 AM EDT 3 mLs Normal Saline 0.9) flush 3 mL 3 mL, Intravenous, EVERY 12 HOURS SCHEDULED (2 times per day), First dose on Tue12/16/20 at 1330, Until Discontinued, Routine Given 12/16/2020 9:00 PM EDT 3 mLs sodium chloride 0.9 % (flush) (BD PosiFlush Given 12/16/2020 5:0 3 PM EDT 5 mLs Normal Saline 0.9) flush 5-20 mL 5-20 mL, Intravenous, EVERY 1 MIN PRN, Starting on Tue12/16/20 at 1243, Until Tue12/17/20 at 1314, flush, Flush pertains to all indwelling lines. Flush per protocol found in the job aid using the link provided on this medication record., Routine traMADoL (Ultram) tablet 25 mg 25 mg, Oral, EVERY 6 HOURS PRN, Starting on Tue12/16/20 at 1243, Until Tue12/17/20 at 1314, Pain, Give 25 mg for mild to moderate pain (1 -6)/10., Routine traMADoL (Ultram) tablet 50 mg 50 mg, Oral, EVERY 6 HOURS PRN, Starting on Tue12/16/20 at 1243, Until Tue12/17/20 at 1314, Pain, Give 50 mg for severe pain (7-10)/10., Routine documented in this encounter Active and Recently Administered Medications Times are shown in EDT. Scheduled Medication Order 12/15/2020 12/16/2020 12/17/2020 acetaminophen (Tylenol) tablet 500 mg 13 58 (Given - Provider: Rosalia Pritchard RN)1709 (Given - Provider: Rosalia Pritchard RN)2043 (Given - Provider: Татьяна Lundy RN)2322 (Given - Provider: Татьяна Lundy RN) 0404 (Given - Provider: Татьяна burks RN)0831 (Given - Provider: Jeaentte Mckeon RN) 500 mg, Oral, EVERY 4 HOURS SCHEDULED, F irst dose on Tue12/16/20 at 1330, Until Discontinued, Maximum dose of acetaminophen is 4000 mg from all sources in 24 hours. When ordered for pain, acetaminophen should be given even when other ordered pain medications are indicated. , Routine aspirin EC tablet 81 mg 1358 (Given - Pr ovider: Rosalia Pritchard RN)2042 (Given - Provider: Татьяна Lundy RN) 0831 (Given - Provider: Jeanette Mckeon RN) 81 mg, Oral, 2 TIMES DAILY, First dose o n Tue12/16/20 at 1330, Until Discontinued, Routine doxepin (Sinequan) capsule 10 mg 2099 (Due) 10 mg, Oral, NIGHTLY, First dose on Tue12/16/20 at 2100, Until Discontinued, Routine gabapentin (Neurontin) capsule 300 mg 20 44 (Given - Provider: Татьяна Lundy RN) 300 mg, Oral, NIGHTLY, First dose on Tue12/16/20 at 2100, Until Discontinued, Routine ketorolac (Toradol) (15 mg/mL) injection 15 mg 170 (Given - Provider: Rosalia Pritchard RN)2322 (Given - Provider: Татьяна Lundy RN) 0404 (Given - Provider: Татьяна Lundy, JANELL)0941 (Given - Provider: Jeanette Mckeon RN) 15 mg, Intravenous, EVERY 6 HOURS, 20 do ses, First dose on Tue12/16/20 at 1600, Last dose on Tue12/21/20 at 1000, to begin 6 hours post last dose given in OR or PACU, Routine lactobacillus with pectin capsule 1 capsule 1357 (Given - Provider: Rosalia Pritchard RN)2043 (Given - Provider: Татьяна Lundy RN) 0831 (Given - Provider: Jeanette Mckeon RN) 1 capsule, Oral, 2 TIMES DAILY, First do se on Tue12/16/20 at 1330, Until Discontinued, Routine pantoprazole EC (Protonix) tablet 40 mg 135 (Given - Provider: Rosalia Pritchard RN) 0831 (Given - Provider: Jeanette rdz RN) 40 mg, Oral, DAILY, First dose on Tue at 1330, Until Discontinued, DO NOT CRUSH OR OPEN, Routine senna-docusate (Pericolace) 8.6-50 mg per tablet 1 tablet 1330 (Not Given - Provider: Rosalia Pritchard RN - Reason: Patient/family refused)2044 (Given - Provider: Татьяна Lundy, JANELL) 0831 (Given - Provider: Jeanette rdz, JANELL) 1 tablet, Oral, 2 TIMES DAILY, First dos e on Tue12/16/20 at 1330, Until Discontinued, Routine sodium chloride 0.9 % (flush) (BD PosiFlush Normal Saline 0. 9) flush 3 mL 1330 (Not Given - Provider: Rosalia Pritchard RN - Reason: See comment - Comment: IVF infusing)2100 (Given - Provider: Татьяна Lundy RN) 0900 (Given - Provider: Jeanette Mckeon RN) 3 mL, Intravenous, EVERY 12 HOURS SCHEDU LED (2 times per day), First dose on Tue12/16/20 at 1330, Until Discontinued, Routine Continuous Medication Order 12/15/2020 12/16/2020 12/17/2020 lactated ringers infusion (CANCELED) 084 5 (New Bag - Provider: Ro Pablo RN)1059 (Paused - Provider: Manjit Tineo CRNA - Comment: Switch to gravity)1100 (New Bag - Provider: Manjit Tineo CRNA)1118 (New Bag - Provider: Jamie Henderson RN) 1,000 mL, at 50 mL/hr, Intravenous, CONT INUOUS, Starting on Tue12/16/20 at 0845, Until Tue12/16/20 at 1229, Day of Surgery (Day of Procedure) lactated ringers infusion 1330 (New Bag - Provid er: Rosalia Pritchard RN) 1,000 mL, at 100 mL/hr, Intravenous, CON TINUOUS, Starting on Tue12/16/20 at 1330, Until Tue12/17/20 at 1314 PRN Medication Order 12/15/2020 12/16/2020 12/17/2020 bisacodyL (Dulcolax) suppository 10 mg 10 mg, Rectal, ONCE PRN, 1 dose, Startin g on Tue12/16/20 at 1243, Until Tue12/17/20 at 1314, Constipation, Administer if no bowel movement within 72 hours and Miralax given with no results If multiple P RN bowel medications ordered, start with Miralax, then bisacodyl. Multiple medications may be given concomitantly for constipation., Routine BUpivacaine-EPINEPHrine (Marcaine-epiNEP Hrine) 0.25 %-1:200,000 injection (CANCELED) 1015 (Given - Provider: Nish Chávez MD ) ONCE PRN, Starting on Tue12/16/20 at 101 5, Until Tue12/16/20 at 1228, Intra- Operative (Intra-Procedure), Routine clonazePAM (KlonoPIN) tablet 0.25 mg 0.25 mg, Oral, NIGHTLY PRN, Starting on Tue12/16/20 at 1244, Until Tue12/17/20 at 1314, Anxiety, DO NOT SPLIT, CRUSH OR OPEN, Routine cloNIDine (pf) (Duraclon) (100 mcg/mL) Epidural injection (C ANCELED) 1016 (Given - Provider: Nish Chávez MD) ONCE PRN, Starting on Tue12/16/20 at 101 6, Until Tue12/16/20 at 1228, Intra- Operative (Intra-Procedure), Routine cyclobenzaprine (Flexeril) tablet 10 mg 10 mg, Oral, 2 TIMES DAILY PRN, Starting on Tue12/16/20 at 1243, Until Tue12/17/20 at 1314, Muscle spasms, Routine diphenhydrAMINE (Benadryl) capsule 25 mg 25 mg, Oral, EVERY 8 HOURS PRN, Starting on Tue12/16/20 at 1243, Until Tue12/17/20 at 1314, Itching, Routine ketorolac (Toradol) (30 mg/mL) injection (CANCELED) 1017 (Given - Provider: Nish Chávez MD - Comment: infiltration) ONCE PRN, Starting on Tue12/16/20 at 101 7, Until Tue12/16/20 at 1228, Intra- Operative (Intra-Procedure), Routine LORazepam (Ativan) (2 mg/mL) injection 0.5 mg 0.5 mg, Intravenous, EVERY 6 HOURS PRN, Starting on Tue12/16/20 at 1243, Until Tue12/17/20 at 1314, Anxiety, If medication ordered subcutaneously, do not administer more than 2 mL as a single injection., Routine magnesium hydroxide (Milk of Magnesia) (240 mg/mL) oral liquid 1 0 mL 10 mL, Oral, ONCE PRN, 1 dose, Starting on Tue12/16/20 at 1243, Until Tue12/17/20 at 1314, Constipation, Administer if needed per patient's routine or if no bowel movement within 72 hours If multiple [facility] N bowel medications ordered, start with Miralax, then bisacodyl then Milk of Magnesia, Routine methylPREDNISolone acetate (DEPO-Medrol) (40 mg/mL) injectio n (CANCELED) 1017 (Given - Provider: Nish Chávez MD - Comment: infiltration) ONCE PRN, Starting on Tue12/16/20 at 101 7, Until Tue12/16/20 at 1228, Intra- Operative (Intra-Procedure), Routine morphine 4 mg/mL multi-dose carpuject (CANCELED) 1017 (Given - Provider: Nish Chávez MD - Comment: infiltration) ONCE PRN, Starting on Tue12/16/20 at 101 7, Until Tue12/16/20 at 1228, Intra- Operative (Intra-Procedure), Routine ondansetron (pf) (Zofran) (2 mg/mL) injection 4 mg(Linked Group 1) 4 mg, Intravenous, EVERY 8 HOURS PRN, St arting on Tue12/16/20 at 1243, Until Tue12/17/20 at 1314, Nausea, Vomiting, May repeat times one in 30 minutes if ineffective. If multiple antiemetics are ordered, use ondansetron first, Routine ondansetron (Zofran) tablet 4 mg(Linked Group 1) 4 mg, Oral, EVERY 8 HOURS PRN, Starting on Tue12/16/20 at 1243, Until Tue12/17/20 at 1314, Nausea, Vomiting, If multiple antiemetics are ordered, use ondansetron first. PO Preferred. If patient benita ble to take PO, may give IV if ordered. May repeat times one in 45 minutes if ineffective., Routine polyethylene glycoL (Miralax) packet 17 g 17 g, Oral, DAILY PRN, Starting on Tue02/16/20 at 1243, Until Tue12/17/20 at 1314, Constipation, Start Post OP day 1 if no BM, Routine sodium chloride 0.9 % (flush) (BD PosiFlush Normal Saline 0. 9) flush 5-20 mL 1703 (Given - Provider: Rosalia Pritchard RN) 5-20 mL, Intravenous, EVERY 1 MIN PRN, S tarting on Tue12/16/20 at 1243, Until Tue12/17/20 at 1314, flush, Flush pertains to all indwelling lines. Flush per protocol found in the job aid using the link provided on this medication record., Routine traMADoL (Ultram) tablet 25 mg(Linked Group 2) 25 mg, Oral, EVERY 6 HOURS PRN, Starting on Tue12/16/20 at 1243, Until Tue12/17/20 at 1314, Pain, Give 25 mg for mild to moderate pain (1-6)/10., Routine traMADoL (Ultram) tablet 50 mg(Linked Group 2) 50 mg, Oral, EVERY 6 HOURS PRN, Starting on Tue12/16/20 at 1243, Until Tue12/17/20 at 1314, Pain, Give 50 mg for severe pain (7-10)/10., Routine Linked Groups Order Group 1: ondansetron (Zofran) tablet 4 mgJump to med 4 mg, Oral, EVERY 8 HOURS PRN, Starting on Tue12/16/20 at 1243, Until Tue12/17/20 at 1314, Nausea, Vomiting
If multiple antiemetics are ordered, use ondansetron first. PO Preferr ed. If patient unable to take PO, may gi ve IV if ordered. May repeat times one in 45 minutes if ineffective.
Routine Or ondansetron (pf) (Zofran) (2 mg/mL) injection 4 mgJump to med 4 mg, Intravenous, EVERY 8 HOURS PRN, St arting on Tue12/16/20 at 1243, Until Tue12/17/20 at 1314, Nausea, Vomiting
May repeat times one in 30 minutes if ineffective. If multiple antiemetics are ordered, use ondansetron first
Routine Group 2: traMADoL (Ultram) tablet 25 mgJump to med 25 mg, Oral, EVERY 6 HOURS PRN, Starting on Tue12/16/20 at 1243, Until Tue12/17/20 at 1314, Pain
Give 25 mg for mild to moderate pain (1-6)/10.
Routine Or traMADoL (Ultram) tablet 50 mgJump to med 50 mg, Oral, EVERY 6 HOURS PRN, Starting on Tue12/16/20 at 1243, Until Tue12/17/20 at 1314, Pain
Give 50 mg for severe pain (7-10)/10.
Routine documented in this encounter Care Teams Robot Programmer Relationship Specialty Start Date End Date Estee Diaz MD PCP - General Family Medicine 10/28/20 [address] [facility] [facility] [place] [address] documented as of this encounter
--- OUTSIDE RECORDS SUMMARY | 2021-11-06 15:50 | XMS_ITS | Encounter Summary ---
:1945 Author Organization [facility] [place] [address] Care Team Providers Name Role Phone Estee Diaz MD Primary Care Provider Encounter Details Date Type Department Care Team Description 03/17/2021 TH Visit Orthopaedics at [facility] tat post total (TeleHealth) MONAE Stafford replacement of right [address] [facility] [place], [place] [address] [id number] [place] [id number] Social History Tobacco Use Types Packs/Day Years Used Date Former Smoker Quit: 1988 Smokeless Tobacco: Never Used Alcohol Use Standard Drinks/Week Comments Yes 4 (1 standard drink = 0.6 oz pure alcoho l) Sex Assigned at Date Recorded Not on file documented as of this encounter Progress Notes Mari Sandoval PA - 03/17/2021 3:00 PM EST Telehealth Visit: Patient consented to telehealth visit in lieu of office visit, due to public health emergency. Patient was informed ahead of time that this telehealth visit will be conducted similar to an office visit and may be billed similarly to an in-clinic office visit. Call: [phone] Date of Surgery: 12/16/20 Procedure: Right total hip arthroplasty via direct anterior approach Molly Rios is a 76 y.o. female presents today via telehealth for a postoperative visit after undergoing a total hip arthroplasty with Dr. Chávez. She tells me that her right hip is doing well, she is really not having pain in the right hip aside from some groin pain with IR. She has returned to swimming without difficulty. She has continued her home exercises and continues to work on strengthening. I saw her about a month ago for left lateral hip pain, she underwent a trochanteric cortisone injection at that time with relief of her symptoms but she has started to have some return of her pain in the last week or so. Review of Systems: Constitutional: Denies fever, chills, fatigue Cardiovascular: Denies chest pain Respiratory: Denies shortness of breath Gastrointestinal: Denies nausea, vomiting, diarrhea, constipation or abdominal pain Neurovascular: Denies numbness or tingling Musculoskeletal: Admits minimal bilateral hip pain Psychiatric: Mood and affect appropriate PHYSICAL EXAM: Due to COVID-19 a physical exam was not performed today. X-RAYS: AP pelvis and frog leg lateral views were obtained at her last visit and demonstrate a stable, well seated total hip arthroplasty in good position with no evidence of loosening, subsidence or periprosthetic fracture. Minimal OA of the left hip. ASSESSMENT: 3 months s/p right total hip arthroplasty, left hip trochanteric bursitis PLAN: Pricila is a 75-year-old female who I am speaking with today via telehealth for a 3 month follow-up after a right total hip arthroplasty and one month follow up after a left trochanteric bursal injection. We reviewed that she has no further lifting restrictions as her bone has now grown into the implant. I encouraged her to slowly and gradually increase her activity to tolerance. I reminded her that recovery after arthroplasty can take up to a year and that her recovery will not be linear. We also discussed that high impact activities and cutting and pivoting type activities may be more comfortable for her closer to 6 months after surgery. As far as her left hip is concerned, I encouraged her to continue with her strengthening and stretching exercises. If she cannot tolerate side-lying positions with modification then she can do standinghip abductor strengthening. She inquires about a repeat cortisone injection, I told her that she should really wait about 3 or 4 months after the first 1 before trying this again. She will let us know how she is doing 2 months from now and if she is still having left lateral hip pain then we can repeat a trochanteric bursal injection at that time. In regards to dental work, the current recommendations are to avoid any elective dental work within 6 months after a joint replacement. Patients should take antibiotics by mouth 30 minutes before any dental procedure that is done within 6 months of a joint replacement. You may contact the office and we will send in a prescription for these antibiotics. For dental procedures done more than 6 months after hip or knee replacement, the recommendations are as follows: In patients with a normal immune system, no antibiotic pretreatment is required ahead of dental cleanings and restorations (fillings). Incase of more extensive dental work such as an extraction (tooth pulled), root canal, periodontal (gum) work or dental implants, then please contact us and we will send an antibiotic prescription which is to be taken 30 to 60 minutes before the procedure. documented in this encounter Plan of Treatment Not on filedocumented as of this encounter Visit Diagnoses Diagnosis Status post total replacement of right h ip documented in this encounter Care Teams Education Associate Relationship Specialty Start Date End Date Estee Diaz MD PCP - General Family Medicine 10/28/20 [address] [place] [address] documented as of this encounter
--- OUTSIDE RECORDS SUMMARY | 2021-11-06 15:50 | XMS_ITS | Encounter Summary ---
:1945 Author Organization [facility] [place] [address] Care Team Providers Name Role Phone Estee Diaz MD Primary Care Provider Encounter Details Date Type Department Care Team Description 12/09/2020 Telephone Pre-Admission Mary hussein at [facility] [place] [address] Social History Tobacco Use Types Packs/Day Years Used Date Former Smoker Quit: 1988 Smokeless Tobacco: Never Used Alcohol Use Standard Drinks/Week Comments Yes 4 (1 standard drink = 0.6 oz pure alcoho l) Sex Assigned at Date Recorded Not on file documented as of this encounter Progress Notes Nasra Walls RN - 12/09/2020 10:52 AM EDTSummary: covid COVID-19 SCREENING: In the past 14 days, have you had any of the following symptoms: [] Fever (subjective or documented fever) [] Chills [] Cough [] Shortness of breath or difficulty breathing [] Fatigue [] Muscle or body aches [] Headache [] New loss of taste or smell [] Sore throat [] Nausea or vomiting [] Diarrhea [x]NONE OF THE ABOVE Have you scheduled your pre-op COVID Screening Test? [x]Yes []No []N/A Vaccinated, awaiting booster after surgery documented in this encounter Plan of Treatment Not on filedocumented as of this encounter Visit Diagnoses Not on filedocumented in this encounter Care Teams Internet Application Developer Relationship Specialty Start Date End Date Estee Diaz MD PCP - General Family Medicine 10/28/20 [address] [facility] [address] [place] [address] documented as of this encounter
--- OUTSIDE RECORDS SUMMARY | 2021-11-06 15:50 | XMS_ITS | Encounter Summary ---
:1945 Author Organization [facility] [place] [address] Care Team Providers Name Role Phone Unavailable Primary Care Provider Unavailable Encounter Details Date Type Department Care Team Description 05/22/2020 Ancillary Procedure Radiology at [facility] Nish Chávez MD [address] [place] [address] [phone] [place], [place] [address] Social History Tobacco Use Types Packs/Day Years Used Date Never Assessed Sex Assigned at Date Recorded Not on file documented as of this encounter Plan of Treatment Not on filedocumented as of this encounter Procedures Procedure Name Priority Date/Time Associated Diagnosis Comme nts FILM LIBRARY Routine 05/22/2020 12:00 AM Results for this STORAGE ONLY DX EDT procedure ar e in PELVIS the results section. documented in this encounter Results Film Library- Storage Only DX Pelvis (05/22/2020 12:00 AM EDT) Specimen (Source) Anatomical Location Collection Method / Collectio n Time Received Time / Laterality Volume Narrative IVONNE - 07/16/2020 10:25 AM EDT This exam is auto-finalizing. It's purpo se is for storage only. Nish Chávez MD IMG FILM LIBRARY ORDERABLES Performing Organization Address City/State/ZIP Code Phon e Number IVONNE [place], [place] documented in this encounter Visit Diagnoses Not on filedocumented in this encounter
--- OUTSIDE RECORDS SUMMARY | 2021-11-06 15:50 | XMS_ITS | Encounter Summary ---
:1945 Author Organization [facility] [place] [address] Care Team Providers Name Role Phone Estee Diaz MD Primary Care Provider Encounter Details Date Type Department Care Team Description 10/31/2020 Notes Only Orthopaedics at [facility] Nish Chávez MD [facility] [place] [address] [place] [address] [phone] (Wo rk) Social History Tobacco Use Types Packs/Day Years Used Date Former Smoker Quit: 1988 Smokeless Tobacco: Never Used Sex Assigned at Date Recorded Not on file documented as of this encounter Progress Notes Verena Hinojosa RN - 10/31/2020 10:53 AM EDT Surgical Consent -Surgery: Right direct [...] and will be prepared for surgery at [facility] on 11/04[facility]20. - The consent was reviewed [...] Kineret (anakinra), Rituxan (rituximab). - Items to cigar packer and picker and have at home for use after [...] number to reach you at after surgery: [phone] - You may shower the day after [...] on filedocumented in this encounter Care Teams Louver Door Assembler Relationship Specialty Start Date End Date Estee Diaz MD PCP - General Family Medicine 10/28/20 [address] [place] [address] documented as of this encounter
--- OUTSIDE RECORDS SUMMARY | 2021-11-06 15:50 | XMS_ITS | Encounter Summary ---
:1945 Author Organization [facility] Address [facility] [place] [address] Care Team Providers Name Role Phone Estee Diaz MD Primary Care Provider Reason for Referral Physical Therapy (Routine) - Closed Specialty Diagnoses / Procedures Referred By Contact Refer red To Contact Physical Therapy Diagnoses Other urinary incontinence Nish Chávez MD [facility] [address] [address] [place] [address] Fax: Referral ID Status Reason Start Date Expiration Date Visits V isits Requested Authorized [id number] Closed Evaluate and 06/10/2021 12/07/2021 12 12 Treat Reason for Visit Reason Comments Follow-up RT THR 12/16/2020 Encounter Details Date Type Department Care Team Description 06/10/2021 Office Visit Orthopaedics at [facility] urinary incontinence (Primary Dx); Brett Pena MD Trochanteric bursitis of left hip; [address] Presence of right [place] [address] [phone] [place] [address] Social History Tobacco Use Types Packs/Day Years [...] Mass Index 19.77 06/10/2021 2:02 PM EDT documented in this encounter Progress Notes Nish Chávez MD - 06/10/2021 2:00 PM EDT Date of Surgery: 12/16/20 Procedure: Right total hip arthroplasty via direct anterior approach Molly Rios is a 76 y.o. female presents today for a postoperative visit after undergoing a total hip arthroplasty with Dr. Chávez. At the last visit she reported that her right hip was doing well, she was really not having pain in the right hip aside from some groin pain with IR. She returned toswimming without difficulty. She continued her home exercises and continued to work on strengthening. I saw her about a month ago for left lateral hip pain, she underwent a trochanteric cortisone injection at that time with relief of her symptoms but she started to have some return of her pain in the last week or so. Today she reports groin pain in the right hip ongoing for over a month now. Has improved slightly since making the appointment. Does have some pain when laying on her side . Review of Systems: Constitutional: Denies fever, chills, fatigue Cardiovascular: Denies chest pain Respiratory: Denies shortness of breath Gastrointestinal: Denies nausea, vomiting, diarrhea, constipation or abdominal pain Neurovascular: Denies numbness or tingling Musculoskeletal: Admits minimal bilateral hip pain Psychiatric: Mood and affect appropriate PHYSICAL EXAM: Ht 172.7 cm (5' 8) Wt 59 kg (130 lb) BMI 19.77 kg/m?? Constitutional: alert, in no acute distress, well-developed, well-nourished, well-groomed, body habitus normal Head/Face: Atraumatic, normocephalic General: alert and oriented. She appears in no acute discomfort and is resting comfortably in a chair in the exam room. Skin: no erythema present, no ecchymosis present, no signs of skin lesions or infection Sensation: :sensation to light touch intact in lower extremities, neurovascularly intact Mental status Examination: grossly oriented to person, place and time Mood and Affect: mood normal, affect appropriate Impression/Plan: Molly Rios is approximately the 6 months after a right hip replacement, by all accounts everything is going well. She originally made this appointment because she was having some deep proximal abductor pain on the right side, however she went to a agriculture instructor who showed her some stretches and this pain is gradually subsiding. She is also expressed some anxiety about thefact that her range of motion to the hip was not returning as quickly as she thought it might, however I did remind her that regaining range of motion from a stiff arthritic hip can sometimes take up to 2 years, and after examining her today it seems that her range of motion is actually coming along quite well. Finally, she is concerned about some lateral discomfort in the left hip, most of this is posterolateral in location, it bothers her for instance when she lays on the left side in bed, or whenshe tries to do side-lying abductor exercises for her right hip. Reminded her that she is quite slim, does not have an extra amount of subcutaneous tissue that would pad the trochanters, and therefore her laying on a mattress pad or some other question material might be better. Her radiographs show excellent implant position on the right side, equal leg lengths and offsets, and no evidence of any problems with her hip replacement. The left hip shows preserved joint space, andperhaps grade 2 arthritic changes. 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 We talked about a number of modalities to improve her abductor tendinosis, she already had 1 injection which gave her about 3 weeks of relief but then the symptoms returned. We decided after some discussion to proceed with meloxicam 15 mg a day to be taken for 1 month, we talked about the use of topical Voltaren, we talked about the foam roller, hot water bottle, and also talked about the possibilityof an ultrasound-guided injection next to the common abductor attachment. For the time being, we will try with the meloxicam, I reminded her of the possible side effects, she will continue to do gentlestretching and strengthening exercises, and we will see her back at the 1 year anniversary. I Frnacesca Wilson am acting as scribe for Nish Chávez MD. All work documented was performed by Nish Chávez MD. I, Nish Chávez MD personally performed the services described in this documentation, as scribed by Francesca Wilson is both accurate and complete. documented in this encounter Plan of Treatment Scheduled Referrals Name Type Priority Associated Diagnoses Order S chedule Referral to Outpatient Referral Routine Other urinary Ordered : Physical Therapy incontinence 06/10/2021 documented as of this encounter Visit Diagnoses Diagnosis Other urinary incontinence - Primary Trochanteric bursitis of left hip Enthesopathy of hip region Presence of right artificial hip joint Hip joint replacement by other means documented in this encounter Care Teams Peanut Roaster Relationship Specialty Start Date End Date Estee Diaz MD PCP - General Family Medicine 10/28/20 [address] [place] [address] documented as of this encounter
--- OUTSIDE RECORDS SUMMARY | 2021-11-06 15:50 | XMS_ITS | Encounter Summary ---
:1945 Author Organization [facility] Address [address] [place] [address] Care Team Providers Name Role Phone Estee [...] Expiration Date Visits Requ ested Visits Authorized [id number] 1 1 Encounter Details Date Type Department Care Team Description 12/16/2020 Surgery Operating Room Nish Herrera MD TOTAL HIP ARTHROPLASTY, [address] ANTERIOR APPROACH ([facility] [place] [address] [place] [address] [phone] Social History Tobacco Use Types Packs/Day Years Used Date Former Smoker Quit: 1988 Smokeless Tobacco: Never Used Alcohol Use Standard Drinks/Week Comments Yes 4 (1 standard drink = 0.6 oz pure alcoho l) Sex Assigned at Date Recorded Not on file documented as of this encounter Last Filed Vital Signs Vital Sign Reading Time Taken Comments Blood Pressure 92/51 12/16/2020 11:38 AM EDT Pulse 64 12/16/2020 11:38 AM EDT Temperature 36.2 ??C (97.2 ??F) 12/16/2020 11:06 AM EDT Respiratory Rate 12 12/16/2020 11:38 AM EDT Oxygen Saturation 100% 12/16/2020 11:38 AM EDT Inhaled Oxygen Concentration - - Weight 57.2 kg (126 lb) 12/16/2020 8:24 AM EDT Height 172.7 cm (5' 8) 12/16/2020 8:24 AM EDT Body Mass Index 19.16 12/16/2020 8:24 AM EDT documented in this encounter Discharge Summaries Mari Sandoval PA - 12/17/2020 9:55 AM EDT [facility] Discharge Summary Admit date: 12/16/2020 Expected D/C [...] medication that you were doing while at [facility]. Be sure to understand your pain medication plan before you leave the hospital and remember to picket labor union all prescriptions at the pharmacy. DVT PROPHYLAXIS: [...] 11:30 AM Mari Sandoval PA Orthopaedics at [facility] Arrive at: [facility] Level 02/20/2021 1:00 PM Mari Sandoval PA Orthopaedics at [facility] Arrive at: [facility] Level Future Orders Complete By Expires Referral to Home Health - at DISCHARGE [[id number] CPT(R)] As directed Process Instructions: Scheduling Instructions: Comments: DOCUMENTATION FOR VNA SERVICES (INCLUDING THOSE PATIENTS WITH MEDICARE COVERAGE REQUIRING HOME VNA SERVICES AND/OR HOSPICE SERVICES) PATIENT'S LOCATION: Molly Rios [address] [place] [phone] (home) Cell: Telephone Information: Airport Maintenance Chief's Name: Medhat/Self In discussion with the attending physician, it is certified that this patient is under their care and that they, or a Nurse Practitioner,Clinical Nurse specialist or Physician Skip Miner Blasting who is working directly with them, had [...] for managing ADL's. HOME HEALTH CARE AGENCY: [facility] PHONE: [phone] FAX: [phone] Start of care: 24-48 hours post dc [...] patient'sPCP: MD Toni Suggs DR [address] / [facility] [id number] All A agencies which cover the area of patient's residence have been reviewed, either verbally or in writing, and patient/family have chosen the home health care agency noted Questions: Agency name and contact information: [facility] Patient location post discharge: home What services are requested: Physical Therapy Occupational Therapy Start date: Responsible MD post discharge contact info: PCP Inpatient Provider Contact Information: For questions regarding this summary or this inpatient hospitalization, please call the [facility] Orthopedic Office at [phone]. MONAE Lindquist 12/17/2020 documented in this encounter [...] you leave the hospital and remember to picket labor union all prescriptions at the pharmacy. DVT PROPHYLAXIS: [...] RN - 12/17/2020 11:11 AM EDT Molly Rios discharged per provider order to home with [...] PA - 12/17/2020 9:51 AM EDT [facility] ORTHOPAEDIC PROGRESS NOTE Admit Date: 12/16/2020 Hospital [...] as ordered. Discharge planning. Probable discharge tomorrow. Debbie Mejia RN - 12/16/2020 2:09 PM EDT I reviewed a list of Home Health Agencies/DME vendors with patient which serve the preferred geographic area. Education was provided about the right to choose where referrals are placed. Patient requests referral to [facility] PHONE: [phone] FAX: [phone] Expected date of discharge: 12/17/20 PT/OT CAREY Referral routed to the Signal System Testing Maintainer for matching with agency/vendor and to provide [...] Evaluation Leval of Eval Complexity: Low - 30184 Diagnosis: S/P right total hip arthroplasty; Dr. [...] H25.13 ??? Plantar fasciitis M72.2 ??? Problem ARI3412 ??? Routine adult health maintenance Z00.00 ??? [...] IADLs: Dressing Dressing: Lower Body, Upper Body Restaurant General Manager Top: Modified Independent Underwear: Supervision, Verbal Cues, [...] Clinical Decision Making Complexity Score: Low - 19424 Rola Kaufman OT 12/16/2020 Occupational Therapy Rehabilitation [...] turn level surfaces using a FWW at [facility] Comments: Sit / Stand: Supervision, Assist of 1 Assistive Equipment: FWW Surfaces Used: bed Stairs: Assist of 1, Contact Guard Assistive Equipment: FWW Number of Stairs: 4 x 6 inch at [facility] using BUE handrails ( presented for education [...] exercise review Ortho Exercises Row Name 12/16/20 1657 Supine Heel Slide -- Gluteal Set x5 Quad Set x5 Hip Abduction / Adduction -- Ankle [place] x5 Seated Hip Flexion -- Knee Flexion [...] good functional mobility using a FWW at [facility] and is safe to discharge home with [...] Diversional Activities: smartphone television Pain Management Interventions: [id number]-vbkyf dosing utilized cold applied Problem: Postoperative Nausea [...] care provider on file: Estee Diaz MD [phone] Advance Directive on file and Code Status: <no information>, Attempt Cardiopulmonary Resuscitation - Inpatient If AD's have not been completed Medhat would be surrogate decision maker per [place] surrogate decision making law. (Only good for 180 days) Any patient receiving care at [facility] must abide by [place] law. The hierarchy for surrogate decision making [...] (i) The agent with financial power of family law attorney or a conservator appointed in accordance with RSA 464-A. (j) The guardian of the patient???s estate. Patient???s Functional Status:Pt states she is independent with all adls. She drives Living Situation:lives with in a 2 story home but living area all on first floor. 2 cats 3 DIOGENES Has fww [address] [facility] [address] Supports:family BH/Substance use: per pt Denies any [...] home via personal vehicle when medically ready. four h agent/Specimen Processor will continue to follow patient???s progress and remain available if situation changes for coordination of care, psychosocial support and/or discharge planning. Office of Care Management CM: Debbie Mejia RN Op Note - Nish Chávez MD - 12/16/2020 10:11 AM EDT [facility] Operative Note [facility] [address] [place] [address] Patient Name: Molly Rios : [id number] MR#: [id number] Case Date: 12/16/2020 Surgery Start Time: 1010 Surgery Stop Time: 1056 Date: 12/16/2020 Surgeon: Nish Chávez MD Skip Miner Blasting: MONAE Jessica Asp Net Developer: Manjit Tineo CRNA Anesthesia: Right Pre-operative diagnosis: Right hip osteoarthritis, severe Body mass index is 19.16 kg/m??. Post-operative diagnosis: Same Surgical Procedure Performed: Injection right hip with marcaine 0.25% with epi, 4 mg morphine, ketorolac 30 mg, and Solu-Medrol (40 mg) into skin, subcutaneous and deep tissues, and joint space. Right total hip arthroplasty, anterior Hueter approach with [employer] table Right hip intraoperative radiologic examination Findings: [...] performed. Patient was positioned supine on the [employer] table, both feet and ankles were padded [...] liner was placed and impacted according to supervisor jewelry department's instructions. Any impinging osteophytes were removed. Attention [...] and laterally. At the same time, the tourist information assistant leaned against the thigh to optimize [...] back to the hospital bed from the [employer] table and boots wereremoved. No abduction pillow was placed. The patient returned to the recovery room in stable condition. The certified surgical first assistant, MONAE Jessica, worked under my direction for the duration of the operativesession. The tourist information assistant meticulously prepped the operative site and maintained the best possible exposure of anatomy for the procedure for its duration. Implant Information: Implant Name Type Inv. Item Serial No. Brooch And Bracelet Maker Lot No. LRB No. Used Action SHELL ACET HIP 50MM POR 3 HOLE TI R3 ([id number]) (AutoReq) - [id number] IMPLANTS SHELL ACET HIP 50MM POR 3 HOLE TI R3 ([id number]) (AutoReq) [employer] - CLEMENTS NEPH [id number] Right 1 Implanted LINER ACET HIP [id number] 0D POLY R3 ([id number]) (AutoReq) - [id number] IMPLANTS LINER ACET HIP [id number] 0D POLY R3 ([id number]) (AutoReq) [employer] - [employer]MENTS NEPH [id number] Right 1 Implanted STEM FEMORAL HIP SZ 3 PROX 135D POR CLLR STND OFST TI ([id number]) (AutoReq) - [id number] IMPLANTS STEMFEMORAL HIP SZ 3 PROX 135D POR CLLR STND OFST TI ([id number]) (AutoReq) [employer] - CLEMENTS [id number] Right 1 Implanted HEAD FEMORAL HIP 32MM -3MM OFFSET 12/14 TPR ZIRCNM OXINIUM ([id number]) (AutoReq) - [id number] IMPLANTSHEAD FEMORAL HIP 32MM -3MM OFFSET 12/14 TPR ZIRCNM OXINIUM ([id number]) (AutoReq) [employer] - CLEMENTS NEPH [id number] Right 1 Implanted TG 0 RG 0 [...] City/State/ZIP Code Phon e Number LABORATORY [address] [place], [place] [address] (ABNORMAL) Differential, Automated (12/17/2020 6:59 AM EDT) Patholo gist Method Time Signature Neutrophils % 83.0 % LABORATORY Neutr Abs (ANC) 12.76 (H) 1.70 - DAY 6.10 LABORATORY x10(3)/ L Lymphocytes % 6.6 % LABORATORY Lymphocytes [...] Code Phon e Number LABORATORY [address] [place], [place] [address] (ABNORMAL) Hemogram (12/17/2020 6:59 AM EDT) P athologist Signature WBC 15.4 (H) 4.0 - 9.5 DAY x10(3)/mcL LABORATORY RBC 3.96 (L) 4.00 - DAY 5.21 LABORATORY x10(6)/mcL Hemoglobin 12.5 11.7 - [...] City/State/ZIP Code Phon e Number LABORATORY [address] [place], [place] [address] (ABNORMAL) Basic Metabolic Panel [...] City/State/ZIP Code Phon e Number LABORATORY [address] [place], [place] [address] XR Fluoro No Rad [...] of left hip Enthesopathy of hip region Primary osteoarthritis of right hip Primary localized osteoarthrosis, pelvic region and thigh Pain in right hip Pain in joint, pelvic region and thigh documented in this encounter Admitting Diagnoses Diagnosis [...] Given 12/16/2020 1:58 PM EDT 81 mg BUpivacaine-EPINEPHrine Given 12/16/2020 10:15 AM 60 mLs 19- Surgical Site (Marcaine-epiNEPHrine) 0.25 EDT %-1:200,000 injection ONCE PRN, Starting on Tue12/16/20 at 1015, Until Tue12/16/20 at 1228, Intra-Operative (Intra-Procedure), Routine cloNIDine (pf) (Duraclon) (100 Given 12/16/2020 10:16 AM 10 mcg 19- Surgical Site mcg/mL) Epidural injection EDT ONCE PRN, Starting on Tue12/16/20 at 1016, Until Tue12/16/20 at 1228, Intra-Operative (Intra-Procedure), Routine gabapentin (Neurontin) capsule 300 mg Given 12/16/2020 [...] Given 12/16/2020 11:22 PM EDT 15 mg ketorolac (Toradol) (30 mg/mL) Given 12/16/2020 10:17 AM 30 mg 19- Surgical Site injection EDT ONCE PRN, Starting on Tue12/16/20 at 1017, Until Tue12/16/20 at 1228, Intra-Operative (Intra-Procedure), Routine lactated ringers infusion New Bag 12/16/2020 [...] Given 12/16/2020 1:57 PM EDT 1 capsule methylPREDNISolone acetate Given 12/16/2020 10:17 AM 40 mg 19- Surgical Site (DEPO-Medrol) (40 mg/mL) EDT injection ONCE PRN, Starting on Tue12/16/20 at 1017, Until Tue12/16/20 at 1228, Intra-Operative (Intra-Procedure), Routine morphine 4 mg/mL multi-dose Given 12/16/2020 10:17 AM EDT 4 mg 19- Surgical Site carpuject ONCE PRN, Starting on Tue12/16/20 at 1017, Until Tue12/16/20 at 1228, Intra-Operative (Intra-Procedure), Routine ondansetron (pf) (Zofran) (2 mg/mL) inje ction [...] Pritchard RN)1709 (Given - Provider: Rosalia Pritchard RN)204 (Given - Provider: Татьяна Lundy RN)2322 (Given - Provider: Татьяна Lundy RN) 0404 (Given - Provider: Татьяна burks RN)0831 (Given - Provider: Jeanette Mckeon, JANELL) 500 mg, Oral, EVERY 4 HOURS SCHEDULED, F irst dose on Tue12/16/20 at 1330, Until Discontinued, Maximum dose of acetaminophen is 4000 mg from all sources in 24 hours. When ordered for pain, acetaminophen should be given even when other ordered pain medications are indicated. , Routine aspirin EC tablet 81 mg 1358 (Given - Pr ovider: Rosalia Pritchard RN)2043 (Given - Provider: Татьяна Lnudy RN) 0831 (Given - Provider: Jeanette Mckeon RN) 81 mg, Oral, 2 TIMES DAILY, First dose o n Tue12/16/20 at 1330, Until Discontinued, Routine doxepin (Sinequan) capsule 10 mg 2099 (Due) 10 mg, Oral, NIGHTLY, First dose on Tue12/16/20 at 2100, Until Discontinued, Routine gabapentin (Neurontin) capsule 300 mg 20 44 (Given - Provider: Татьяна Lundy, JANELL) 300 mg, Oral, NIGHTLY, First dose on Tue12/16/20 at 2100, Until Discontinued, Routine ketorolac (Toradol) (15 mg/mL) injection 15 mg 1702 (Given - Provider: Rosalia Pritchard RN)2322 (Given - Provider: Татьяна Lundy RN) 0404 (Given - Provider: Татьяна Lundy RN)0941 (Given - Provider: Jeanette Mckeon RN) 15 [...] Routine pantoprazole EC (Protonix) tablet 40 mg 1358 (Given - Provider: Rosalia Pritchard RN) 0831 (Given - Provider: Jeanette rdz, JANELL) 40 mg, Oral, DAILY, First dose on Tue at 1330, Until Discontinued, DO NOT CRUSH OR OPEN, Routine senna-docusate (Pericolace) 8.6-50 mg per tablet 1 tablet 1330 (Not Given - Provider: Rosalia Pritchard RN - Reason: Patient/family refused)2043 (Given - Provider: Татьяна Lundy RN) 0831 (Given - Provider: Jeanette rdz RN) 1 tablet, Oral, 2 TIMES DAILY, First dos e on Tue12/16/20 at 1330, Until Discontinued, Routine sodium chloride 0.9 % (flush) (BD PosiFlush Normal Saline 0. 9) flush 3 mL 1330 (Not Given - Provider: Rosalia Pritchard RN - Reason: See comment - Comment: IVF infusing)2100 (Given - Provider: Татьяна Lundy, RN) 0900 (Given - Provider: Jeanette Mckeon [...] bowel movement within 72 hours If multiple [place] N bowel medications ordered, start with Miralax, [...] 5-20 mL 1703 (Given - Provider: Rosalia Pritchard, RN) 5-20 mL, Intravenous, EVERY 1 MIN [...]
Routine documented in this encounter Care Teams Sales Vice President Relationship Specialty Start Date End Date Estee Diaz MD PCP - General Family Medicine 10/28/20 [address] [place] [address] documented as of this encounter
--- OUTSIDE RECORDS SUMMARY | 2021-11-06 15:50 | XMS_ITS | Encounter Summary ---
:1945 Author Organization [facility] [place] [address] Care Team Providers Name Role Phone Estee Diaz MD Primary Care Provider Reason for Visit Reason Onset Date Comments Questions 12/29/2020 Encounter Details Date Type Department Care Team Description 12/29/2020 Telephone Orthopaedics at [facility] Robert Floyd, RN Questions [address] [place] [address] Social History Tobacco Use Types Packs/Day Years Used Date Former Smoker Quit: 1988 Smokeless Tobacco: Never Used Alcohol Use Standard Drinks/Week Comments Yes 4 (1 standard drink = 0.6 oz pure alcoho l) Sex Assigned at Date Recorded Not on file documented as of this encounter Miscellaneous Notes Telephone Encounter - Robert Genao, RN - 12/29/2020 11:07 AM EST Telephone Call 12/29/2020 11:07 AM Caller: Molly Rios 1945 Telephone Information: [phone] (home) Problem/Question: Patient is S/P right CAREY with Dr Chávez on 12/16/20.Patient called today regarding questions about the meloxicam. Patient stated she was taking meloxicam prior to surgery. She stated over the weekend she was noticing that she was starting to have more missed heart beats. She did state that she had had them randomly in the past but now is having them more consisently. She stated she did some reading on the meloxicam and this is one of the side effects. Outcome: Patient ws instructed to stop the meloxicam and get an appointment with her PCP. I spoke with Yasir LICONA he agreed with stopping the meloxicam and getting an appointment with her PCP toreview her symptoms. Patient ws instructed to start Ibuprofen, 600 mg every 8 hours. patient verbalized understanding. Plan/Follow up: Patient will call her PCP for an appointment. Patient will call with any other questions or concerns. Robert Genao RN documented in this encounter Plan of Treatment Not on filedocumented as of this encounter Visit Diagnoses Not on filedocumented in this encounter Care Teams Library Paraprofessional Relationship Specialty Start Date End Date Estee Diaz MD PCP - General Family Medicine 10/28/20 [address] [place] [address] documented as of this encounter
--- OUTSIDE RECORDS SUMMARY | 2021-11-06 15:50 | XMS_ITS | Encounter Summary ---
:1945 Author Organization [facility] Address [address] [place] [address] Care Team Providers Name Role Phone Kevin Miranda MD Primary Care Provider Reason for Visit Reason Comments Right Hip Pain Encounter Details Date Type Department Care Team Description 09/10/2020 Office Visit Orthopaedics at [facility] hanteric bursitis Brett Pena MD of left hip ([address]) [place] [address] [phone] [place] [address] Social History Tobacco Use Types Packs/Day Years [...] - - Weight 59 kg (130 lb) 09/10/2020 11:38 AM EDT Height 171.5 cm (5' 7.5) 09/10/2020 11:38 AM EDT Body Mass Index 20.06 09/10/2020 11:38 AM EDT documented in this encounter Progress Notes Nish Chávez MD - 09/10/2020 2:30 PM EDT Chief Complaint Patient presents with ??? Right Hip Pain PCP: Kevin Miranda MD Workers Comp: No HPI: Molly Rios is a 75 y.o. female who presents to the Orthopaedic clinic for follow up for righthip pain. She was last seen in clinic for this complaint on 07/16/2020 with Nish Chávez MD. The pertinent information regarding the patient's hip complaint is documented in the patient's electronic medical record. The patient reports her hip complaint has worsened. She reports wants to discuss replacement surgery. Also would like info on bursitis of left hip Imaging obtained today Yes Review of Systems: Constitutional: Denies fever, chills, fatigue Cardiovascular: Denies chest pain Respiratory: Denies shortness of breath Gastrointestinal: Denies nausea, vomiting, diarrhea, constipation or abdominal pain Neurovascular: Denies numbness or tingling Musculoskeletal: Admits right hip pain Psychiatric: Mood and affect appropriate PHYSICAL EXAM: Ht 171.5 cm (5' 7.5) [...] point tenderness, no SI joint tenderness Gait/Station: normal gait, Station normal . Right lower extremity : Hip: Inspection/Palpation: no tenderness to palpation, no greater trochanteric tenderness, no effusion, no warmth, no swelling Range of Motion: FF 0- 110 degrees, ER 40 degrees, IR 10 degrees, ABD 30 degrees Strength: strength 5/5 Stability: no joint instability Test/Signs Thigh: no tenderness, no ecchymosis, no swelling Knee : Full ROM with no tenderness to palpation, no effusion Lower leg: No tenderness to palpation, no swelling, no ecchymosis Left lower extremity : Hip: Inspection/Palpation: no greater trochanteric tenderness, pain posterior attachment of gluteus no effusion, no warmth, no swelling Range of Motion: FF 0- 125 degrees, ER 40 degrees, IR 25 degrees, ABD 35 degrees Strength: strength 5/5 Stability: no joint instability Test/Signs no pain with hyperextension Thigh: no tenderness, no ecchymosis, no swelling Knee : Full ROM with no tenderness to palpation, no effusion Lower leg: No tenderness to palpation, no swelling, no ecchymosis Muscle tone: tone normal Leg Length Discrepancy: No significant leg length discrepancy Skin: no erythema present, no ecchymosis present, no signs of skin lesions or infection Sensation: :sensation to light touch intact in lower extremities, neurovascularly intact Mental status Examination: grossly oriented to person, place and time Mood and Affect: mood normal, affect appropriate Impression/Plan: Molly Rios is a patient known to me for severe right hip OA, she has grade 3-4 changes, excellent bone density and has some increasing discomfort activity level. We have talked about both surgical and nonoperative options. I think her pain is likely multifocal, some of it originating from the arthritic joint but some of it also from an insertional tendinopathy of the abductor musculature of the right greater trochanter. Today on examination she is tender in this location and also has discomfort with active abduction against gravity. Range of motion of the right hip today passively seems to be somewhat less tender. I reviewed her radiographs, the severity of the right hip arthritis is likely such that these for the pain originating from the joint itself likely to be limited. Therefore we have decided to focus on enteric pain, we talked about Voltaren gel which we have ultimately prescribed. We also talked about protein rich plasma and other modalities to try to lessen the inflammatory changes in the common abductor tendon. She will try to increase her activity level improve muscle strengthening. At some point,if her symptoms worsen she knows that she can contact us and we will schedule her for a throat plasty I Francesca Wilson am acting as scribe for Nish Chávez MD. All work documented was performed by Nish Chávez MD. INish MD personally performed the services described in this documentation, as scribed by Francesca Wilson is both accurate and complete. documented in this encounter Plan of Treatment Not on filedocumented as of this encounter Visit Diagnoses Diagnosis Trochanteric bursitis of left hip - Prim arlette Enthesopathy of hip region documented in this encounter Care Teams Hardware Designer Relationship Specialty Start Date End Date Kevin Mirnada MD PCP - General Family Medicine 06/30/20 10/27/[address] [place] [id number] documented as of this encounter
--- OUTSIDE RECORDS SUMMARY | 2021-11-06 15:50 | XMS_ITS | Encounter Summary ---
:1945 Author Organization [facility] [place] [address] Care Team Providers Name Role Phone Kevin Miranda MD Primary Care Provider Reason for Referral Consultation (Routine) - Closed Specialty Diagnoses / Procedures Referred By Contact Refer red To Contact Family Medicine Diagnoses Primary osteoarthritis of right hip Pain in right hip Pre-op exam Nish Chávez MD Kraus, Dana C, MD [address] [facility] [address] [place] [address] Fax: Referral ID Status Reason Start Date Expiration Date Visits V isits Requested Authorized [id number] Closed Consult, 10/16/2020 04/14/2021 1 1 Test & Treat Encounter Details Date Type Department Care Team Description 10/16/2020 Orders Only Orthopaedics at Nish Herrera, Chantale arlette osteoarthritis of right hip; Brett Pena MD Pain in right hip; [address] Pre-op exam; [place] [address] Pre-op testing [phone] [place] [address] Social History Tobacco Use Types Packs/Day Years Used Date Former Smoker Quit: 1988 Smokeless Tobacco: Never Used Sex Assigned at Date Recorded Not on file documented as of this encounter Progress Notes Robert Genao RN - 10/16/2020 3:24 PM EDT The patient is scheduled to have a Total Joint Replacement surgery. After meeting with the patient, it has been determined based on the DVT prophylaxis questionnaire that the patient is going to be prescribed Aspirin after surgery due to not having any risk factors for DVT. A Prescription for The patient does not require a prescription because they will be using 81 mg aspirin after surgery. has notbeen sent to the patients pharmacy. Robert Genao RN - 10/16/2020 3:24 PM EDT STOP-BANG Questionnaire BMI: BMI Readings from Last 1 Encounters: 09/10/20 20.06 kg/m?? Age: 75 y.o. Sex: female STOP [...] 3-4 Low Risk of ELYSIA: YES 0-2 documented in this encounter Plan of Treatment Scheduled Referrals Name Type Priority Associated Diagnoses Order S chedule Referral to Outpatient Referral Routine Primary osteoarthriti s Ordered: General Internal of right hip 10/16/2020 Medicine Pain in right hi p Pre-op exam documented as of this encounter Results EKG 12 Lead (10/31/2020 12:19 PM EDT) Component Value Ref Range Test Analysis Performed Pathologis t Method Time At Signature Ventricular rate 68 BPM MUSE SYSTEM Atrial Rate 61 BPM MUSE SYSTEM P-R Interval 182 ms MUSE SYSTEM QRS Duration 80 ms MUSE SYSTEM Q-T Interval 406 ms MUSE SYSTEM QTC Calculated 431 ms MUSE SYSTEM (Bezet) Calculated P Noble 75 degrees MUSE SYSTEM Calculated R Noble 36 degrees MUSE SYSTEM Calculated T Noble 60 degrees MUSE SYSTEM INTERPRETATION Sinus rhythm with sinus arrh ythmia Occasional Premature ventricular complexes MUSE SYSTEM Otherwise normal ECG No previous ECGs available Confirmed by MD BIBIANA, BELKYS ([id number]) on 10/31/2020 2:19:58 PM Specimen Anatomical Collection Method Collection Time Receive d Time (Source) Location / / Volume Laterality 10/31/2020 12:19 10/31/2020 2:19 PM EDT PM EDT Nish Chávez MD ECG ORDERABLES Performing Organization Address City/State/ZIP Code Phon e Number MUSE SYSTEM (ABNORMAL) Comprehensive metabolic panel (non-fasting) (10/31/2020 12:00 PM EDT) P athologist Signature Glucose Lvl 95 65 - 199 mg/dL LABORATORY Comment: Diabetes: >=200 mg/dL plus symp toms BUN 13 8 - 18 mg/dL LA [facility] Creatinine 0.61 (L) 0.70 - 1.20 mg/dL LABORATORY Sodium 138 135 - 145 mmol/L LABORATORY Potassium 4.2 3.5 - 5.0 mmol/L LABORATORY Comment: Please note: ??Patients with WBC >100,00 0 may have falsely elevated Potassium levels. ??For accurate Potassium quantif ication in these patients send serum separator tube (gold top) for subsequent determinations. ??Contact the Clinical Chemistry Laboratory if there are any qu estions. Chloride 101 98 - 107 mmol/L LABORATORY CO2 27 22 - 31 mmol/L LABORATORY Anion Gap 10 5 - 15 mmol/L L ABORATORY Calcium 9.8 8.5 - 10.5 mg/dL LABORATORY Total Protein 7.1 6.1 - 8.0 gm/dL LABORATORY Albumin 4.5 3.2 - 5.2 gm/dL LABORATORY AST 23 0 - 30 unit/L L ABORATORY ALT 16 0 - 30 unit/L HELEN L [facility]ATORY Alk Phos 88 35 - 105 unit/L LABORATORY Total Bilirubin 0.5 0.2 - 1.3 mg/dL LABORATORY Estimated GFR 90 >=60 mL/min/1.73 m?? [...] City/State/ZIP Code Phon e Number LABORATORY 10 [place], [place] [address] Staph aureus/MRSA Culture Screen Nasal (10/31/2020 12:00 PM EDT) Component Value Ref Test Analysis Performed At [facility] Range Method Time Signature Staphylococcus No Staphylococcus BLANCA Screening Culture aureus isolated [facility] Specimen Anatomical Collection Method Collection Time Receive d Time (Source) Location / / Volume Laterality Nasal 10/31/2020 12:00 10/31/2020 4:41 PM EDT PM EDT Resulting Agency Comment Spec In Lab Nish Chávez MD MICROBIOLOGY - GENERAL ORDER VON Performing Organization Address City/State/[place] [address] documented in this encounter Visit Diagnoses Diagnosis Primary osteoarthritis of right hip Primary localized osteoarthrosis, pelvic region and thigh Pain in right hip Pain in joint, pelvic region and thigh Pre-op exam Preoperative examination, unspecified Pre-op testing Preoperative examination, unspecified documented in this encounter Care Teams Business Objects Analyst Relationship Specialty Start Date End Date Kevin Miranda MD PCP - General Family Medicine 06/30/20 10/27/[address] [place] [address] documented as of this encounter
--- OUTSIDE RECORDS SUMMARY | 2021-11-06 15:50 | XMS_ITS | Encounter Summary ---
:1945 Author Organization [facility] [place] [address] Care Team Providers Name Role Phone Estee Diaz MD Primary Care Provider Reason for Referral Physical Therapy (Routine) - Closed Specialty Diagnoses / Procedures Referred By Contact Refer red To Contact Diagnoses Primary osteoarthritis of right hip Pain in right hip Status post right hip replacement Nish Chávez MD Physical Therapy, [facility] [address] [place] [address] [place] [address] ,[facility] 2 [place] [address] Phone: Fax: Referral ID Status Reason Start Date Expiration Date Visits V isits Requested Authorized [id number] Closed Evaluate and 12/23/2020 06/21/2021 12 12 Treat Encounter Details Date Type Department Care Team Description 12/23/2020 Orders Only Orthopaedics at Nish Herrera, Stat post right hip replacement (Primary Dx); Brett Pena MD Primary osteoarthritis of right hip; [address] Pain [place] [address] [phone] [place] [address] Social History Tobacco Use Types Packs/Day Years [...] Outpatient Referral Routine Primary osteoarthriti s Ordered: Physical Therapy of right hip 12/23/2020 Pain in right hi p Status post right hip replacement documented as of this encounter Visit Diagnoses Diagnosis Status post right hip replacement - Prim arlette Hip joint replacement by other means Primary osteoarthritis of right hip Primary localized osteoarthrosis, pelvic region and thigh Pain in right hip Pain in joint, pelvic region and thigh documented in this encounter Care Teams Loan Documentation Specialist Relationship Specialty Start Date End Date Estee Diaz MD PCP - General Family Medicine 10/28/20 [address] [place] [address] documented as of this encounter
--- OUTSIDE RECORDS SUMMARY | 2021-11-06 15:50 | XMS_ITS | Encounter Summary ---
:1945 Author Organization [facility] [place] [address] Care Team Providers Name Role Phone Estee Diaz MD Primary Care Provider Encounter Details Date Type Department Care Team Description 01/05/2021 Orders Only Cardiology at [facility] Serjio Moon, Premature ventricular [facility] [place] [address] CARDIOLOGY DEPT [phone] [place], [place] [address] Social History Tobacco Use Types Packs/Day Years Used Date Former Smoker Quit: 1988 Smokeless Tobacco: Never Used Alcohol Use Standard Drinks/Week Comments Yes 4 (1 standard drink = 0.6 oz pure alcoho l) Sex Assigned at Date Recorded Not on file documented as of this encounter Progress Notes Azra Morlilo RN - 01/05/2021 4:46 PM EST ekg as per protocol documented in this encounter Plan of Treatment Scheduled Orders Name Type Priority Associated Diagnoses Order S chedule EKG 12 Lead ECG Routine Premature ventricular As Nee ded for 6 Occurrences contractions starting 2020 until 01/05/2022 documented as of this encounter Visit Diagnoses Diagnosis Premature ventricular contractions Other premature beats documented in this encounter Care Teams Corporate Specialist Relationship Specialty Start Date End Date Estee Diaz MD PCP - General Family Medicine 10/28/20 [address] [place] [address] documented as of this encounter
--- OUTSIDE RECORDS SUMMARY | 2021-11-06 15:50 | XMS_ITS | Encounter Summary ---
:1945 Author Organization [facility] [place] [address] Care Team Providers Name Role Phone Estee Diaz MD Primary Care Provider Encounter Details Date Type Department Care Team Description 01/16/2021 Ancillary Procedure Radiology XRay at Nish Chávze S tatus post right the Multi-Specialty MD hip replacement Clinic at [facility] [address] [facility] [address] [facility] [place] [address] [phone] Social History Tobacco Use Types Packs/Day Years [...] Comme nts XR PELVIS AND LAT Routine 01/16/2021 11:14 AM Status post cierah t Results for this HIP RIGHT EST hip replacement procedure ar e in the results section. documented in this [...] who have questions please contact the health healthcare recruiter that requested your imaging first. ? Electronically signed by: Jyoti Gutiérrez MD, [facility] ([phone]), at 01/16/2021 12:17 PM Narrative 01/16/2021 12:17 [...] of the left hip. IMPRESSION Uncomplicated right CAREY. Thank you for letting us participate in the care of this patient. If you are a health care provider and have any questi ons regarding this report, please contact the number below. For patients w ho have questions please contact the health healthcare recruiter that requested your imaging first. Electronically signed by: Jyoti Gutiérrez MD, [facility] ([phone]), at 01/16/2021 12:17 PM Nish Chávez MD IMG DX ORDERABLES documented in this encounter Visit Diagnoses Diagnosis Status post right hip replacement Hip joint replacement by other means documented in this encounter Care Teams Lsw Relationship Specialty Start Date End Date Estee Diaz MD PCP - General Family Medicine 10/28/20 [address] [place] [address] documented as of this encounter
--- OUTSIDE RECORDS SUMMARY | 2021-11-06 15:50 | XMS_ITS | Encounter Summary ---
:1945 Author Organization [facility] [place] [address] Care Team Providers Name Role Phone Estee Diaz MD Primary Care Provider Reason for Visit Reason Comments Public Health Screening Encounter Details Date Type Department Care Team Description 12/12/2020 Clinical Support Primary Care at Helen [facility] [employer] for [place] preprocedure screening [place] [address] COVID-19 Social History Tobacco Use Types Packs/Day Years Used Date Former Smoker Quit: 1988 Smokeless Tobacco: Never Used Alcohol Use Standard Drinks/Week Comments Yes 4 (1 standard drink = 0.6 oz pure alcoho l) Sex Assigned at Date Recorded Not on file documented as of this encounter Progress Notes Laila Card RMA - 12/12/2020 1:30 PM EDT [facility] Patient here for COVID-19 testing. Confirmed patient identity. Explained procedure to patient. Procedure completed and labels placed on specimen There are no diagnoses linked to this encounter. documented in this encounter Plan of Treatment Not on filedocumented as of this encounter Procedures Procedure Name Priority Date/Time Associated Diagnosis Comme nts COVID-19 PCR Routine 12/12/2020 1:00 PM Encounter for Results for this EDT preprocedure screening proce ngoc are in laboratory testing for the r esults COVID-19 section. documented in this encounter Results COVID-19 PCR (12/12/2020 1:00 PM EDT) [facility] Method Time Signature SARS-CoV-2 Not Detected Not Detected [facility] Comment: This result should be interpreted [...] diagnosis of COVID-19 is performed using the Picturae S-CoV-2 Assay as authorized by the FDA Emergency Use Authorization (EUA). This EUA assay is intended for In-vitro Diagnostic (IVD) use with respiratory sp ecimens such as nasopharyngeal swabs collected from individuals during the ac mary phase of infection. This assay is performed based on the instructions for use provided by [employer]. and additional guidance provided by CDC and FDA. Testing is performed in the Clinical Genomics and Advanced Technolog y Laboratory within the Department of Pathology and Laboratory Medicine at [facility], certified under the Clinical Laboratory Improvement Amendments [...] clinical management guidance information are available at e [facility] Coronavirus Disease 2019 (COVID-19) webpage under Information fo r Healthcare Professionals (https://www.cdc.gov/coronavirus/2019-nc ov/hcp/index.html) Additional information about this and ot her EUA tests can be found in provider and patient fact sheets at the following FDA website: https://www.fda.gov/medical-devices/qvivwarahqg-nxplthf-4288-yzcyi-95-rjakvlzth- mcw-zuupeqinnemdff-omumerr-devices/yckgq-uuokkpuudwv-duir SARS-Cov-2 RNA Source SPOUT LINER HELPER Swab [facility] Specimen (Source) Anatomical Collection Method Collection Time Re ceived Time Location / / Volume Laterality Nasopharyngeal Swab 12/12/2020 1:00 12/12 PM EDT 5:42 PM EDT Comment: Symptoms->Asymptomatic Resulting Agency Comment Spec In Lab Jason Escalante MD MICROBIOLOGY - GENERAL ORDER VON Performing Organization Address City/State/[place] [address] documented in this encounter Visit Diagnoses Diagnosis Encounter for preprocedure screening lab oratory testing for COVID-19 documented in this encounter Care Teams Home Stereo Equipment Installer Relationship Specialty Start Date End Date Estee Diaz MD PCP - General Family Medicine 10/28/20 [address] [place] [address] documented as of this encounter
--- OUTSIDE RECORDS SUMMARY | 2021-11-06 15:50 | XMS_ITS | Encounter Summary ---
:1945 Author Organization [facility] [place] [address] Care Team Providers Name Role Phone Estee Diaz MD Primary Care Provider Reason for Visit Reason Onset Date Comments Questions 12/19/2020 Encounter Details Date Type Department Care Team Description 12/19/2020 Telephone Orthopaedics at [facility] Robert Floyd RN Questions [address] [facility] [place] [address] Social History Tobacco Use Types Packs/Day Years Used Date Former Smoker Quit: 1988 Smokeless Tobacco: Never Used Alcohol Use Standard Drinks/Week Comments Yes 4 (1 standard drink = 0.6 oz pure alcoho l) Sex Assigned at Date Recorded Not on file documented as of this encounter Miscellaneous Notes Telephone Encounter - Verena Hinojosa RN - 12/19/2020 11:34 AM EDT Telephone Call 12/19/2020 11:34 AM Caller: Molly Rios 1945 Telephone Information: [phone] (home) Problem/Question: Patient returns call to clinic with PT Ramiro present to provide an update of the visualization of the now that she has sent the photo in for office review of her RT groin area where she noted earlier some redness surrounding the mepilex bandage on the medial aspect of the inner thigh. Ramiro relayed that there is mild swelling to the groin area, no red streak present, no exudate, no foul odor, no excessive warmth to the touch, no fever/chills. Outcome: Relayed to patient that we would keep an eye out on this for over the weekend. Should symptoms worsen patient instructed to contact the land leasing information clerk physician at the clinic. Patient expressed understanding of instructions and will contact clinic with further questions or concerns. Verena Hinojosa RN Telephone Encounter - Robert Genao RN - 12/19/2020 9:39 AM EDT Telephone Call 12/19/2020 9:39 AM Caller: Mollytalha Soloan 1945 Telephone Information: [phone] (home) Problem/Question: Pricila is S/P right CAREY-DAA with Dr Chávez on 12/16/20. Patient called today stating she has a red streak from the medial thigh going lateral. Outcome: Patient denies any warmth at the site. Patient denies fever. Pricila will take a picture and send it through [facility]. Plan/Follow up: Patient will send picture. Will call when picture received. Patient will call with any other questions or concerns. Robert Genao RN documented in this encounter Plan of Treatment Not on filedocumented as of this encounter Visit Diagnoses Not on filedocumented in this encounter Care Teams Trigonometry Tutor Relationship Specialty Start Date End Date Estee Diaz MD PCP - General Family Medicine 10/28/20 [address] [place] [address] documented as of this encounter
--- OUTSIDE RECORDS SUMMARY | 2021-11-06 15:53 | XMS_ITS | Encounter Summary ---
:1945 Author Organization [facility] Address [address] [facility], [address] [place] [address] Care Team Providers Name Role Phone Kevin Miranda MD Primary Care Provider Encounter Details Date Type Department Care Team Description 04/21/2021 Scan Document - View [facility] Kevin Miranda, in Chart Practice [address] [place], [place] [id number] [place], [place] [phone] [address] Social History Tobacco Use Types Packs/Day Years Used Date Former Smoker Smokeless Tobacco: Never Used Alcohol Use Standard Drinks/Week Comments Yes 5 (1 standard drink = 0.6 oz pure alcoho l) Sex Assigned at Date Recorded Female 04/12/2019 2:19 PM EST documented as of this encounter Plan of Treatment Upcoming Encounters Date Type Specialty Care Team Description 11/30/2021 Office Visit Family Medicine Kevin Miranda MD [address] [place] [address] (Wo rk) documented as of this encounter Visit Diagnoses Not on filedocumented in this encounter Care Teams Shock Absorption Floor Layer Relationship Specialty Start Date End Date Kevin Miranda MD PCP - General Family Medicine 11/20/[address] [place] [address] documented as of this encounter
--- OUTSIDE RECORDS SUMMARY | 2021-11-06 15:53 | XMS_ITS | Clinical Summary ---
:1945 Author Organization [facility] Address [address] [facility], [address] [place] [address] Care Team Providers Name Role Phone Kevin [...] tablet b complex vitamins Take 1 capsule by 0 Active capsule mouth daily. omega-3 fatty Take 1 g by mouth 0 Active acids-fish oil (FISH daily. OIL) 300-1,000 mg capsule TURMERIC (CURCUMIN daily. 0 A ctive MISC) calcium Take 1 Dose by 0 Activ e citrate/vitamin D3 mouth. Pt takes 1 (CITRACAL REGULAR teaspoon a day in ORAL) water. POLYETHYLENE GLYCOL Take 17 g by mouth 0 Active 3350 ORAL daily. Pt takes 1 dose prn Vitamin D3 Take by mouth 0 Activ e daily. doxepin 6 mg Take 6 mg by mouth 90 tablet 3 06/05/2020 Active tabletIndications: nightly. Insomnia, unspecified type meloxicam (MOBIC) 15 Take 15 mg by 0 11/16/2020 Active mg tablet mouth daily as needed. For hip pain omeprazole (PriLOSEC) TAKE ONE CAPSULE 0 10/01/2020 Active 20 mg capsule BY MOUTH EVERY DAY FOR A MONTH THEN NEEDED WITH NSAIDS clonazePAM (KlonoPIN) Take 1 tablet (0.5 20 tablet 0 2 Active 0.5 mg tablet mg total) by mouth nightly as needed for anxiety. Active Problems Problem Noted Date Diverticulitis of [...] pursue another opinion with Dr. Angel at [facility] for another anterior approach option. Continue diclofenac 75 mg BID PRN pain. Agree with PT prior to surgery as well and provided referral. Acute left ankle pain 11/30/2018 Last Assessment & Plan: Formatting of is note might be different from the original. 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 Stable after recent flare. Continue trent lax and fiber regimen. F/u with Dr. Gorman ([facility] gastroenterology) for routine f/u and colonoscopy. Lateral knee pain, left 06/24/2017 Radiculopathy, lumbar region 06/12/2017 Overview: Evaluated and followed by : [facility], [facility], and [facility]. [...] 03/17/2017 Last Assessment & Plan: Formatting of is note might be different from the [...] 09/20/2016 Last Assessment & Plan: Formatting of is note might be different from the [...] Encounters Date Type Specialty Care Team Description 08/14/2021 Refill Family Medicine Yessy William NP from Last 3 Months Immunizations Name Administration Dates Next Due DT 10/25/1984 FLU VACCINE QUADRIVALENT 11/23/2018, 01/14/2017 Pneumococcal Conjugate 13-Valent 06/05/2014 Pneumococcal Polysaccharide 23-Valent 04/03/2013 QUADRIVALENT FLU 0.5 ML MDV 11/23/2019 Shingrix (Zoster Recombinant) 03/15/2020, 01/02/2020 Td 03/07/2006, 08/14/2000 Tdap 03/17/2017 Zoster (Zostavax) 12/16/2011 Family History Medical History Relation Comments Emphysema Brother 1 at 57, smoker Coronary artery disease Brother 2 twin of patient. CABG at 64 Cancer Father neck Emphysema Mother at 64, smoker Drug abuse Son born 1973, lives wit h his parents Colon cancer [...] 12/05/2019 10:03 AM EDT Plan of Treatment Upcoming Encounters Date Type Specialty Care Team Description 11/30/2021 Office Visit Family Medicine Kevin Miranda MD [address] [place], [place] [phone] (Wo rk) Health Maintenance Due Date Last Done Comments CoVid-19 Vaccine (#1) 1945 Hepatitis C Screening 1963 Periodic Health Exam [...] Phone Address Typ e / Group Dates VINI LU [id number] 2013-Pres [phone] [employer] CLAIM[employer] ent [phone] [place] [address] MEDICARE MEDICARE A&B [id number] 2013-Pre [phone] Medicare sent [address] [place] [address] MEDICARE MEDICARE A&B [id number] 2013-Pre [phone] Medicare sent [address] [place] [address] MEDICARE MEDICARE A&B [id number] 2013-Pres [phone] Medicare ent [address] [place] [address] VINI LU [id number] 2013-Pres [phone] BLUE SHIELD HMO BLUE ent [phone] [place] [address] [facility] [id number] 2020-Pres [phone] [address] Medi care [employer] ent [id number] [place] [address] Gabriel,Catherin Personal/Famil Self 1945 [address]Home) [place] [address] Gabriel,Catherin Personal/Famil Self 1945 [address]Home) [place] [address] Gabriel,Catherin Personal/Famil Self 1945 [address]Home) [place] [address] Gabriel,Catherin Personal/Famil Self 1945 [address]Home) [place] [address] Gabriel,Catherin Personal/Famil Self 1945 [address]Home) [place] [address] Gabriel,Catherin Personal/Famil Self 1945 [address]Home) [place] [address] Gabriel,Catherin Personal/Famil Self 1945 [address]Home) [place] [address] Garbiel,Catherin Personal/Famil Self 1945 [address]Home) [place] [address] Gabriel,Catherin Personal/Famil Self 1945 [address]Home) [place] [id number] Gabriel,Catherin Personal/Famil Self 1945 [address]) [place] [id number] Gabriel,Catherin Personal/Famil Self 1945 [address]Home) [place] [id number] Gabriel,Catherin Personal/Famil Self 1945 [address]Home) [place] [address] Gabriel,Catherin Personal/Famil Self 1945 [address]Home) [place] [address] Gabriel,Catherin Personal/Famil Self 1945 [address] (Home) [place] [address] Gabriel,Catherin Personal/Famil Self 1945 [address] (Home) [place] [address] Gabriel,Catherin Personal/Famil Self 1945 [address] (Home) [place] [address] Gabriel,Catherin Personal/Famil Self 1945 [address] (Home) [place] [address] Gabriel,Catherin Personal/Famil Self 1945 [address] (Home) [place] [address] Gabriel,Catherin Personal/Famil Self 1945 [address] (Home) [place] [address] Gabriel,Catherin Personal/Famil Self 1945 [address] (Home) [place] [address] Gabriel,Catherin Personal/Famil Self 1945 [address] (Home) [place] [address] Gabriel,Catherin Personal/Famil Self 1945 [address] (Home) [place] [address] Gabriel,Catherin Personal/Famil Self 1945 [address] (Home) [place] [address] Gabriel,Catherin Personal/Famil Self 1945 [address] (Home) [place] [address] Gabriel,Catherin Personal/Famil Self 1945 [address] (Home) [place] [address] Gabriel,Catherin Personal/Famil Self 1945 [address] (Home) [place] [address] Gabriel,Catherin Personal/Famil Self 1945 [address] (Home) [place] [address] Gabriel,Catherin Personal/Famil Self 1945 [address] (Home) [place] [address] Gabriel,Catherin Personal/Famil Self 1945 [address] (Home) [place] [address] Gabriel,Catherin Personal/Famil Self 1945 [address] (Home) [place] [address] Gabriel,Catherin Personal/Famil Self 1945 [address] (Home) [place] [address] Gabriel,Catherin Personal/Famil Self 1945 [address] (Home) [place] [address] Gabriel,Catherin Personal/Famil Self 1945 [address] (Home) [place] [address] Gabriel,Catherin Personal/Famil Self 1945 [address]) [place] [id number] Gabriel,Catherin Personal/Famil Self 1945 [address]) [place] [id number] Gabriel,Catherin Personal/Famil Self 1945 [address]Home) [place] [id number] Gabriel,Catherin Personal/Famil Self 1945 [address]Home) [place] [id number] Gee Rios Personal/Famil Self 1945 [address]Home) [place] [address] Gee Rios Personal/Famil Self 1945 [address]Home) [place] [address] Gee Rios Personal/Famil Self 1945 [address]Home) [place] [address] Gee Rios Personal/Famil Self 1945 [address] (Home) [place] [address] Gee Rios Personal/Famil Self 1945 [address]) [place] [id number] Advance Directives Latest Code Status on File Code Status Date Activated Date Inactivated Comments Full Code 04/13/2019 5:03 PM 04/14/2019 5:14 PM Care Teams Hi Lo Driver Relationship Specialty Start Date End Date Kevin Miranda MD PCP - General Family Medicine 11/20/[address] [place] [address]
--- OUTSIDE RECORDS SUMMARY | 2021-11-06 15:53 | XMS_ITS | Encounter Summary ---
:1945 Author Organization [facility] Address [address] [facility], [address] [place] [address] Care Team Providers Name Role Phone Kevin Miranda MD Primary Care Provider Encounter Details Date Type Department Care Team Description 12/02/2020 Travel Social History Tobacco Use Types Packs/Day [...] Office Visit Family Medicine Kevin Miranda MD [address] [place] [address] (Wo rk) documented as of this encounter Visit Diagnoses Not on filedocumented in this encounter Care Teams Masonry Supervisor Relationship Specialty Start Date End Date Kevin Miranda MD PCP - General Family Medicine 11/20/[address] [place] [address] documented as of this encounter
--- OUTSIDE RECORDS SUMMARY | 2021-11-06 15:53 | XMS_ITS | Encounter Summary ---
:1945 Author Organization [facility] Address [address] [facility], [address] [place] [address] Care Team Providers Name Role Phone Kevin Miranda MD Primary Care Provider Encounter Details Date Type Department Care Team Description 02/26/2020 Orders Only [facility] actice Provider, MD Harsh [address] [place] [address] [phone] Social History Tobacco Use Types Packs/Day Years [...] Office Visit Family Medicine Kevin Miranda MD [address] [place] [address] (Wo rk) documented as of this encounter Procedures Procedure Name Priority Date/Time Associated Diagnosis Comme nts SCAN DOC - OTHER ORDER Routine 02/25/2020 SCAN DOC - OTHER ORDER Routine 02/20/2020 documented in this encounter Results SCAN DOC - OTHER ORDER (02/25/2020) Narrative This result has an attachment that is no t available. Historical Provider SCANNED ORDERS SCAN DOC - OTHER ORDER (02/20/2020) Narrative This result has an attachment that is no t available. Historical Provider SCANNED ORDERS documented in this encounter Visit Diagnoses Not on filedocumented in this encounter Care Teams Automotive Repair Technician Relationship Specialty Start Date End Date Kevin Miranda MD PCP - General Family Medicine 11/20/[address] [place] [address] documented as of this encounter
--- OUTSIDE RECORDS SUMMARY | 2021-11-06 15:53 | XMS_ITS | Encounter Summary ---
:1945 Author Organization [facility] Address [address] [facility], [address] [place] [address] Care Team Providers Name Role Phone Kevin Miranda MD Primary Care Provider Reason for Referral Rehab (Routine) - Closed Specialty Diagnoses / Procedures Referred By Contact Refer red To Contact Physical Therapy Diagnoses Right hip pain Kevin Miranda MD [address] [place] [address] Referral ID Status Reason Start Date Expiration Date Visits V isits Requested Authorized [id number] Closed Specialty 02/18/2020 02/17/2021 1 1 Services Required Encounter Details Date Type Department Care Team Description 02/18/2020 Orders Only Kevin Trimble, h ip pain (Primary Practice MD Dx) [address] [place] [address] Social History Tobacco Use Types Packs/Day Years [...] Visit Family Medicine Kevin Miranda MD [address] [place], [place] [address] (Wo rk) Scheduled Referrals Name Type Priority Associated Order Schedule Diagnoses Ambulatory referral Outpatient Referral Routine Right hip pain 1 Occurrences to Physical Therapy starting 02/18/2020 until documented as of this encounter Visit Diagnoses Diagnosis Right hip pain - Primary Pain in joint, pelvic region and thigh documented in this encounter Care Teams White Kid Buffer Relationship Specialty Start Date End Date Kevin Miranda MD PCP - General Family Medicine 11/20/19 [address] [place] [address] documented as of this encounter
--- OUTSIDE RECORDS SUMMARY | 2021-11-06 15:53 | XMS_ITS | Encounter Summary ---
:1945 Author Organization [facility] Address [address] [facility], [address] [place] [address] Care Team Providers Name Role Phone Kevin Miranda MD Primary Care Provider Encounter Details Date Type Department Care Team Description 05/24/2020 Scan Document - View [facility] Kevin Miranda, in Chart Practice [address] [place], [place] [address] [place], [place] [phone] Social History Tobacco Use Types Packs/Day Years [...] Office Visit Family Medicine Kevin Miranda MD [address] [place] [address] (Wo rk) documented as of this encounter Visit Diagnoses Not on filedocumented in this encounter Care Teams Recycling Tech Relationship Specialty Start Date End Date Kevin Miranda MD PCP - General Family Medicine 11/20/[address] [place] [address] documented as of this encounter
--- OUTSIDE RECORDS SUMMARY | 2021-11-06 15:53 | XMS_ITS | Encounter Summary ---
:1945 Author Organization [facility] Address [address] [facility], [address] [place] [address] Care Team Providers Name Role Phone Kevin Miranda MD Primary Care Provider Encounter Details Date Type Department Care Team Description 04/02/2021 Refill [facility] Pr actice Kevin Miranda MD [address] [place] [address] [place] [address] [phone] (Wo rk) Social History Tobacco Use Types [...] Office Visit Family Medicine Kevin Miranda MD [address] [place] [address] (Wo rk) documented as of this encounter Visit Diagnoses Not on filedocumented in this encounter Care Teams Electronic Engineering Technician Relationship Specialty Start Date End Date Kevin Miranda MD PCP - General Family Medicine 11/20/[address] [place] [address] documented as of this encounter
--- OUTSIDE RECORDS SUMMARY | 2021-11-06 15:53 | XMS_ITS | Encounter Summary ---
:1945 Author Organization [facility] Address [address] [facility], [address] [place] [address] Care Team Providers Name Role Phone Kevin Miranda MD Primary Care Provider Encounter Details Date Type Department Care Team Description 10/16/2020 Scan Document - View [facility] Kevin Miranda, in Chart Practice [address] [place], [place] [address] [place], [place] [phone] Social History Tobacco Use Types Packs/Day Years [...] Office Visit Family Medicine Kevin Miranda MD [address] [place] [address] (Wo rk) documented as of this encounter Visit Diagnoses Not on filedocumented in this encounter Care Teams Fingernail Sculpturer Relationship Specialty Start Date End Date Kevin Miranda MD PCP - General Family Medicine 11/20/[address] [place] [address] documented as of this encounter
--- OUTSIDE RECORDS SUMMARY | 2021-11-06 15:53 | XMS_ITS | Encounter Summary ---
:1945 Author Organization [facility] Address [address] [facility], [address] [place] [address] Care Team Providers Name Role Phone Kevin Miranda MD Primary Care Provider Encounter Details Date Type Department Care Team Description 07/16/2020 Scan Document - View [facility] Kevin Miranda, in Chart Practice [address] [place], [place] [address] [place], [place] [phone] Social History Tobacco Use Types Packs/Day Years [...] Office Visit Family Medicine Kevin Miranda MD [address] [place] [address] (Wo rk) documented as of this encounter Visit Diagnoses Not on filedocumented in this encounter Care Teams Visual Merchandising Assistant Relationship Specialty Start Date End Date Kevin Miranda MD PCP - General Family Medicine 11/20/[address] [place] [address] documented as of this encounter
--- OUTSIDE RECORDS SUMMARY | 2021-11-06 15:53 | XMS_ITS | Encounter Summary ---
:1945 Author Organization [facility] Address [address] [facility], [address] [place] [address] Care Team Providers Name Role Phone Kevin Miranda MD Primary Care Provider Encounter Details Date Type Department Care Team Description 08/14/2020 Telephone [facility] Pr actice Hanh Kelly [place] [address] [place] [address] Social History Tobacco Use Types Packs/Day [...] documented in this encounter Plan of Treatment Upcoming Encounters Date Type Specialty Care Team Description 11/30/2021 Office Visit [place] [address] [place] [address] (Wo rk) documented as of this encounter Visit Diagnoses Not on filedocumented in this encounter Care Teams Black Leather Buffer Relationship Specialty Start Date End Date Kevin Miranda MD PCP - General Family Medicine 11/20/19 [address] [place] [address] documented as of this encounter
--- OUTSIDE RECORDS SUMMARY | 2021-11-06 15:53 | XMS_ITS | Encounter Summary ---
:1945 Author Organization [facility] Address [address] [facility], [address] [place] [address] Care Team Providers Name Role Phone Keivn Miranda MD Primary Care Provider Encounter Details Date Type Department Care Team Description 01/08/2020 Telemedicine [facility] Kevin Miranda, Advance care planning Practice (Primary Dx) [facility] [address] [phone] Social History Tobacco Use Types Packs/Day Years [...] Rodas The physical location of the provider: [facility] office Patient's verbal consent was [...] Office Visit Family Medicine Kevin Miranda MD [address] [place] [address] (Wo rk) documented as of this encounter Visit Diagnoses Diagnosis Advance care planning - Primary Other specified counseling documented in this encounter Care Teams Tobacco Stemmer Machine Relationship Specialty Start Date End Date Kevin Miranda MD PCP - General Family Medicine 11/20/[address] [place] [address] documented as of this encounter
--- OUTSIDE RECORDS SUMMARY | 2021-11-06 15:53 | XMS_ITS | Encounter Summary ---
:1945 Author Organization [facility] Address [address] [facility], [address] [place] [address] Care Team Providers Name Role Phone Kevin Miranda MD Primary Care Provider Encounter Details Date Type Department Care Team Description 03/21/2020 Orders Only [facility] actice Provider, MD Harsh [address] [place] [address] [phone] Social History Tobacco Use Types Packs/Day Years [...] Office Visit Family Medicine Kevin Miranda MD [address] [place] [address] (Wo rk) documented as of this encounter Procedures Procedure Name Priority Date/Time Associated Diagnosis Comme nts SCAN DOC - OTHER ORDER Routine 02/18/2020 documented in this encounter Results SCAN DOC - OTHER ORDER (02/18/2020) Narrative This result has an attachment that is no t available. Historical Provider MD SCANNED ORDERS documented in this encounter Visit Diagnoses Not on filedocumented in this encounter Care Teams Beautician Apprentice Relationship Specialty Start Date End Date Kevin Miranda MD PCP - General Family Medicine 11/20/19 [address] [place] [address] documented as of this encounter
--- OUTSIDE RECORDS SUMMARY | 2021-11-06 15:53 | XMS_ITS | Encounter Summary ---
:1945 Author Organization [facility] Address [address] [facility], [address] [place] [address] Care Team Providers Name Role Phone Kevin Miranda MD Primary Care Provider Reason for Referral Diagnostic Imaging (Routine) - Closed Specialty Diagnoses / Procedures Referred By Contact Refer red To Contact Diagnoses Pain of right hand Jason Rodriguez MD Procedures X-ray Hand 3+ Views Right [address] [place] [address], [address] [place] [address] Referral ID Status Reason Start Date Expiration Date Visits Requ ested Visits Authorized [id number] Closed 02/23/2020 02/22/2021 1 1 Encounter Details Date Type Department Care Team Description 02/23/2020 Telemedicine Family Practice Grou p Jason Rodriguez MD Pain of right hand [address] [place] [facility], [address] [place] [address], ( Primary Dx) [address] [place] [address] [place], [place] [phone] Social History Tobacco Use Types Packs/Day Years [...] Rodriguez MD [facility] [address], [address] [facility] [id number] documented in this encounter Plan of Treatment Upcoming Encounters Date Type Specialty Care Team Description 11/30/2021 Office Visit Family Medicine Kevin Miranda MD [facility] [place], [place] [address] (Wo rk) Scheduled Orders Name Type Priority Associated Diagnoses Order S chedule X-ray Hand 3+ Views Imaging Routine Pain of right hand Ex pected: 02/23/2020, Right Expires: 2021 documented as of this encounter Visit Diagnoses Diagnosis Pain of right hand - Primary documented in this encounter Care Teams Radiology Equipment Servicer Relationship Specialty Start Date End Date Kevin Miranda MD PCP - General Family Medicine 11/20/[address] [place] [address] documented as of this encounter
--- OUTSIDE RECORDS SUMMARY | 2021-11-06 15:53 | XMS_ITS | Encounter Summary ---
:1945 Author Organization [facility] Address [address] [facility], [address] [place] [address] Care Team Providers Name Role Phone Kevin [...] Office Visit Family Medicine Kevin Miranda MD [address] [place] [address] (Wo rk) documented as of this encounter Visit Diagnoses Not on filedocumented in this encounter Care Teams Consultant Luxury And Auto. Vice President [employer] (Ex ) Relationship Specialty Start Date End Date Kevin Miranda MD PCP - General Family Medicine 11/20/[address] [place] [address] documented as of this encounter
--- OUTSIDE RECORDS SUMMARY | 2021-11-06 15:53 | XMS_ITS | Encounter Summary ---
:1945 Author Organization [facility] Address [address] [facility], [address] [place] [address] Care Team Providers Name Role Phone Kevin Miranda MD Primary Care Provider Encounter Details Date Type Department Care Team Description 02/05/2020 Refill [facility] Pr actice Kevin Miranda MD [address] [place] [address] [place] [address] [phone] (Wo rk) Social History Tobacco Use Types Packs/Day Years Used Date Former Smoker Smokeless Tobacco: Never Used Alcohol Use Standard Drinks/Week Comments Yes 5 (1 standard drink = 0.6 oz pure alcoho l) Sex Assigned at Date Recorded Female 04/12/2019 2:19 PM EST documented as of this encounter Miscellaneous Notes Telephone Encounter - Manpreet Bingham [place] - 02/05/2020 9:01 AM EST cpe 11/23/19 documented in this encounter Plan of Treatment Upcoming Encounters Date Type Specialty Care Team Description 11/30/2021 Office Visit Family Medicine Kevin Miranda MD [address] [place] [phone] (Wo rk) documented as of this encounter Visit Diagnoses Not on filedocumented in this encounter Care Teams Inspector Packer Relationship Specialty Start Date End Date Kevin Miranda MD PCP - General Family Medicine 11/20/19 [address] [place] [address] documented as of this encounter
--- OUTSIDE RECORDS SUMMARY | 2021-11-06 15:53 | XMS_ITS | Encounter Summary ---
:1945 Author Organization [facility] Address [address] [facility], [address] [place] [address] Care Team Providers Name Role Phone Kevin Miranda MD Primary Care Provider Encounter Details Date Type Department Care Team Description 04/02/2021 Refill [facility] Pr actice Kevin Miranda MD [address] [place] [address] [place] [address] [phone] (Wo rk) Social History Tobacco Use Types [...] Office Visit Family Medicine Kevin Miranda MD [address] [place] [address] (Wo rk) documented as of this encounter Visit Diagnoses Not on filedocumented in this encounter Care Teams Resilient Tile Installer Relationship Specialty Start Date End Date Kevin Miranda MD PCP - General Family Medicine 11/20/[address] [place] [address] documented as of this encounter
--- OUTSIDE RECORDS SUMMARY | 2021-11-06 15:53 | XMS_ITS | Encounter Summary ---
:1945 Author Organization [facility] Address 330 [facility], [address] [place] [address] Care Team Providers Name Role Phone Kevin Miranda MD Primary Care Provider Reason for Referral Specialty (Routine) - Closed Specialty Diagnoses / Procedures Referred By Contact Refer red To Contact Orthopedic Surgery / Diagnoses Primary osteoarthritis of right hip Kevin Miranda MD Orthopaedic Surgery [address] [place] [address] Referral ID Status Reason Start Date Expiration Date Visits V isits Requested Authorized [id number] Closed Specialty 06/05/2020 06/05/2021 1 1 Services Required ehab (Routine) - Closed Specialty Diagnoses / Procedures Referred By Contact Refer red To Contact Physical Therapy Diagnoses Primary osteoarthritis of right hip Kevin Miranda MD [address] [place] [address] Referral ID Status Reason Start Date Expiration Date Visits V isits Requested Authorized [id number] Closed Specialty 06/05/2020 06/05/2021 1 1 Services Required Encounter Details Date Type Department Care Team Description 06/05/2020 Telemedicine [facility] Kevin Miranda, Primary osteoarthritis of right hip (Primary Dx); Practice MD Insomnia, unspecified type [address] [place], [place] [address]way [address] [place] [address] [place], [place] [phone] Social History Tobacco Use Types Packs/Day Years [...] recommended. She first saw Dr. Horn at [facility], who does anterior approach. She had a second opinion with Dr. Varela at [facility], who does the posterior approach. She wonders [...] pursue another opinion with Dr. Angel at [facility] for another anterior approach option. Continue [...] Rodas The physical location of the provider: [facility] office Patient's verbal consent was obtained [...] pursue another opinion with Dr. Angel at [facility] for another anterior approach option. Continue diclofenac 75 mg BID PRN pain. Agree with PT prior to surgery as well and provided referral. documented in this encounter Plan of Treatment Upcoming Encounters Date Type Specialty Care Team Description 11/30/2021 Office Visit Family Medicine Kevin Miranda MD [address] [place], [place] [address] (Wo rk) Scheduled Referrals Name Type Priority Associated Diagnoses Order S chedule Ambulatory Outpatient Routine Primary osteoarthritis 1 Occ [...] type documented in this encounter Care Teams Rope Coiling Machine Operator Relationship Specialty Start Date End Date Kevin Miranda MD PCP - General Family Medicine 11/20/19 [address] [place] [address] documented as of this encounter
--- OUTSIDE RECORDS SUMMARY | 2021-11-06 15:53 | XMS_ITS | Encounter Summary ---
:1945 Author Organization [facility] Address 330 [facility], [address] [place] [address] Care Team Providers Name Role Phone Kevin Miranda MD Primary Care Provider Encounter Details Date Type Department Care Team Description 11/19/2020 Scan Document - View Paula Funk in Chart Practice [address] [place], [place] [address] [place], [place] [phone] Social History Tobacco Use Types Packs/Day Years [...] Office Visit Family Medicine Kevin Miranda MD [address] [place] [address] (Wo rk) documented as of this encounter Visit Diagnoses Not on filedocumented in this encounter Care Teams Security Guard Supervisor Relationship Specialty Start Date End Date Kevin Miranda MD PCP - General Family Medicine 11/20/[address] [place] [address] documented as of this encounter
--- OUTSIDE RECORDS SUMMARY | 2021-11-06 15:53 | XMS_ITS | Encounter Summary ---
:1945 Author Organization [facility] Address 330 [facility], [address] [place] [address] Care Team Providers Name Role Phone Kevin [...] Office Visit Family Medicine Kevin Miranda MD [address] [place] [address] (Wo rk) documented as of this encounter Visit Diagnoses Not on filedocumented in this encounter Care Teams Parts Designer Relationship Specialty Start Date End Date Kevin Miranda MD PCP - General Family Medicine 11/20/[address] [place] [address] documented as of this encounter
--- OUTSIDE RECORDS SUMMARY | 2021-11-06 15:53 | XMS_ITS | Encounter Summary ---
:1945 Author Organization [facility] Address 330 [facility], [address] [place] [address] Care Team Providers Name Role Phone Kevin Miranda MD Primary Care Provider Reason for Referral Diagnostic Imaging (Routine) - Closed Specialty Diagnoses / Procedures Referred By Contact Refer red To Contact Radiology Diagnoses Osteopenia, unspecified location Kevin Miranda MD Procedures DEXA [facility] [address] [place] [address] Referral ID Status Reason Start Date Expiration Date Visits Requ ested Visits Authorized [id number] Closed 01/07/2020 01/06/2021 1 1 Encounter Details Date Type Department Care Team Description 01/07/2020 Orders Only Kevin Trimble Osteope nia, unspecified Practice location (Primary Dx) [facility] [place] [address] [place] [address] Social History Tobacco Use Types Packs/Day Years [...] Visit Family Medicine Kevin Miranda MD [address] [place], [place] [address] (Wo rk) documented as of this encounter Results DEXA Bone [...] sheets). Dictated: 03/25/2020 1:12 PM Report ID: [id number] Report signed in external system at 03/25 13:12 Reported By: Joshua Arora M.D. ([facility]) Signed By: Joshua Arora M.D. ([facility]) Narrative 03/25/2020 1:12 PM EST RESPONSIBLE MIDDLE SCHOOL DIRECTOR: Joshua Arora M.D. EXAMINATION: DEXA BONE DENSITY CENTRAL CLINICAL INDICATION: Osteoporosis screening. ??Post menopause . TECHNIQUE: Dual Energy X-Ray Absorptiometry (DEXA t [facility]) was performed with measurements of the [...] might be different from the original. RESPONSIBLE MIDDLE SCHOOL DIRECTOR: Joshua Arora M.D. EXAMINATION: DEXA BONE DENSITY CENTRAL CLINICAL INDICATION: Osteoporosis screening. Post menopause. TECHNIQUE: Dual Energy X-Ray Absorptiometry (DEXA t [facility]) was performed with measurements of the [...] sheets). Dictated: 03/25/2020 1:12 PM Report ID: [id number] Report signed in external system at 03/25 13:12 Reported By: Joshua Arora M.D. ([facility]) Signed By: Joshua Arora M.D. ([facility]) Kevin Miranda MD IMG DXA PROCEDURES documented in this encounter Visit Diagnoses Diagnosis Osteopenia, unspecified location - Prima ry Osteopenia, unspecified location documented in this encounter Care Teams Head Of Partner Development Relationship Specialty Start Date End Date Kevin Miranda MD PCP - General Family Medicine 11/20/19 [address] [place] [address] documented as of this encounter
--- OUTSIDE RECORDS SUMMARY | 2021-11-06 15:53 | XMS_ITS | Encounter Summary ---
:1945 Author Organization [facility] Address 330 [facility], [address] [place] [address] Care Team Providers Name Role Phone Kevin Miranda MD Primary Care Provider Encounter Details Date Type Department Care Team Description 08/06/2020 Orders Only [facility] actice Provider, MD Harsh [address] [place] [address] [phone] Social History Tobacco Use Types Packs/Day Years [...] Office Visit Family Medicine Kevin Miranda MD [address] [place] [address] (Wo rk) documented as of this encounter Procedures Procedure Name Priority Date/Time Associated Diagnosis Comme nts MAMMOGRAPHY Routine 07/29/2020 documented in this encounter Results MAMMOGRAPHY (07/29/2020) Anatomical Region Laterality Modality Other Narrative This result has an attachment that is no t available. Historical Provider HEALTH MAINTENANCE documented in this encounter Visit Diagnoses Not on filedocumented in this encounter Care Teams Rn Community Relationship Specialty Start Date End Date Kevin Miranda MD PCP - General Family Medicine 11/20/19 1020 [place] [address] documented as of this encounter
--- OUTSIDE RECORDS SUMMARY | 2021-11-06 15:53 | XMS_ITS | Encounter Summary ---
:1945 Author Organization [facility] Address 330 [facility], [address] [place] [address] Care Team Providers Name Role Phone Kevin [...] Office Visit Family Medicine Kevin Miranda MD [address] [place] [address] (Wo rk) documented as of this encounter Visit Diagnoses Not on filedocumented in this encounter Care Teams Community Leader Relationship Specialty Start Date End Date Kevin Miranda MD PCP - General Family Medicine 11/20/[address] [place] [address] documented as of this encounter
--- OUTSIDE RECORDS SUMMARY | 2021-11-06 15:53 | XMS_ITS | Encounter Summary ---
:1945 Author Organization [facility] Address 330 [facility], [address] [place] [address] Care Team Providers Name Role Phone Kevin Miranda MD Primary Care Provider Encounter Details Date Type Department Care Team Description 10/14/2020 Refill [facility] Pr Yessy Gee, [facility] [place] [address] [place] [address] [place], [place] [address] (Wo rk) Social History [...] Office Visit Family Medicine Kevin Miranda MD [address] [place] [address] (Wo rk) documented as of this encounter Visit Diagnoses Not on filedocumented in this encounter Care Teams Desktop Support Manager Relationship Specialty Start Date End Date Kevin Miranda MD PCP - General Family Medicine 11/20/19 1020 [place] [address] documented as of this encounter
--- OUTSIDE RECORDS SUMMARY | 2021-11-06 15:53 | XMS_ITS | Encounter Summary ---
:1945 Author Organization [facility] Address 330 [facility], [address] [place] [address] Care Team Providers Name Role Phone Kevin Miranda MD Primary Care Provider Reason for Referral Diagnostic Imaging (Routine) - Closed Specialty Diagnoses / Procedures Referred By Contact Refer red To Contact Radiology Diagnoses Osteopenia, unspecified location Kevin Miranda MD Procedures DEXA [facility] [address] [place] [address] Referral ID Status Reason Start Date Expiration Date Visits Requ ested Visits Authorized [id number] Closed 01/07/2020 01/06/2021 1 1 Reason for Visit Diagnostic Imaging (Routine) - Closed Specialty Diagnoses / Procedures Referred By Contact Refer red To Contact Radiology Diagnoses Osteopenia, unspecified location Kevin Miranda MD Procedures DEXA [facility] [address] [place], [place] [address] Referral ID Status Reason Start Date Expiration Date Visits Requ ested Visits Authorized [id number] Closed 01/07/2020 01/06/2021 1 1 Encounter Details Date Type Department Care Team Description 03/25/2020 Hospital [facility] Kevin Miranda MD [address] [place] [address] [place], [place] [phone] [phone] Social History Tobacco Use Types Packs/Day Years [...] Office Visit Family Medicine Kevin Miranda MD [facility] [place], [place] 0 (Wo rk) documented as of this encounter [...] sheets). Dictated: 03/25/2020 1:12 PM Report ID: [id number] Report signed in external system at 03/25 13:12 Reported By: Joshua Arora M.D. ([facility]) Signed By: Joshua Arora M.D. ([facility]) Narrative 03/25/2020 1:12 PM EST RESPONSIBLE EXECUTIVE SERVICES ADMINISTRATOR: Joshua Arora M.D. EXAMINATION: DEXA BONE DENSITY CENTRAL CLINICAL INDICATION: Osteoporosis screening. ??Post menopause . TECHNIQUE: Dual Energy X-Ray Absorptiometry (DEXA t [facility]) was performed with measurements of the lumbar [...] might be different from the original. RESPONSIBLE EXECUTIVE SERVICES ADMINISTRATOR: Joshua Arora M.D. EXAMINATION: DEXA BONE DENSITY CENTRAL CLINICAL INDICATION: Osteoporosis screening. Post menopause. TECHNIQUE: Dual Energy X-Ray Absorptiometry (DEXA t [facility]) was performed with measurements of the lumbar [...] sheets). Dictated: 03/25/2020 1:12 PM Report ID: [id number] Report signed in external system at 03/25 13:12 Reported By: Joshua Arora M.D. ([facility]) Signed By: Joshua Arora M.D. ([facility]) Kevin Miranda MD IMG DXA PROCEDURES documented in this encounter Visit Diagnoses Diagnosis Osteopenia, unspecified location documented in this encounter Care Teams Reset Merchandiser Relationship Specialty Start Date End Date Kevin Miranda MD PCP - General Family Medicine 11/20/19 [address] [place] [address] documented as of this encounter
--- OUTSIDE RECORDS SUMMARY | 2021-11-06 15:53 | XMS_ITS | Encounter Summary ---
:1945 Author Organization [facility] Address 330 [facility], [address] [place] [address] Care Team Providers Name Role Phone Kevin Miranda MD Primary Care Provider Encounter Details Date Type Department Care Team Description 07/09/2021 Telemedicine [facility] Practice MONAE thigh, initial [address] [place] [address] Parul encounter (Primary Dx) [place] [address] [place], [place] [phone] Social History Tobacco Use Types Packs/Day Years Used Date Former Smoker Smokeless Tobacco: Never Used Alcohol Use Standard Drinks/Week Comments Yes 5 (1 standard drink = 0.6 oz pure alcoho l) Sex Assigned at Date Recorded Female 04/12/2019 2:19 PM EST documented as of this encounter Progress Notes MONAE Valdez - 07/09/2021 9:45 AM EDT Subjective Molly Rios is a 76 y.o. female who presents for telehealth visit due to COVID-19 pandemic. HPI: Patient presents for possible tick bite to the right inner thigh. Last night she noticed a dark spotin the middle of the red poarch on her right thigh, this looked similar to previous tick bites that she and her have had. She never saw an actual tick but recalls feeling something (like a scratch) in the same area 3 days ago when she was walking around [facility]. She did not think anything of it at the time but now thinks this was the tick bite. Denies any fevers, chills, fatigue, myalgias, rashes, ear pain, sore throat, loss of taste or sense of smell, cough, nausea, vomiting, diarrhea, SOB. The following portions of the patient's history were reviewed and updated as appropriate: allergies,current medications, past medical history, past surgical history, past family history, past social history and problem list. Review of Systems See HPI Objective: Patient is awake, alert, oriented, with normal speech fluidity and behavior. Patient is speaking in complete sentences without evidence of shortness of breath. Assessment/Plan Problem List Items Addressed This Visit None Visit Diagnoses Tick bite of right thigh, initial encounter - Primary Relevant Medications doxycycline hyclate (VIBRAMYCIN) 100 mg capsule Reviewed indication for antibiotic prophylaxis for Lyme disease including attached tick is identified as a deer tick, tick was in place for >36 hours, prophylaxis was started within 72 hours of tickremoval, Doxycycline is not contraindicated. Given high likelihood of tick bite, prophylactic antibiotic sent to patient's pharmacy. Reviewed signs/symtoms of Lyme disease and recommended reevaluation should these occur. Return precautions discussed. All questions answered. Telemedicine Communication method: Video (Chimeros.Catglobe) The physical location of the patient: [place] ([place], [place]) The physical location of the provider: [facility] office Patient's verbal consent was obtained by myself. Verbal consent from the patient for a telemedicine visit was obtained at the time of the service. The patient understands not all conditions can be adequately evaluated and treated through a virtual visit and may require an in-person medical evaluation.The patient understands that there may be co-pay/cost for the visit. The patient was also informed of how to reach a clinician in the event of an emergency or as otherwise needed. MONAE Valdez documented in this encounter Plan of Treatment Upcoming Encounters Date Type Specialty Care Team Description 11/30/2021 Office Visit Family Medicine Kevin Miranda MD [address] [place] [address] (Wo rk) documented as of this encounter Visit Diagnoses Diagnosis Tick bite of right thigh, initial encoun ter - Primary documented in this encounter Care Teams Drill Press Operator Helper Relationship Specialty Start Date End Date Kevin Miranda MD PCP - General Family Medicine 11/20/19 [address] [place] [address] documented as of this encounter
--- OUTSIDE RECORDS SUMMARY | 2021-11-06 15:53 | XMS_ITS | Encounter Summary ---
:1945 Author Organization [facility] Address 330 [facility], [address] [place] [address] Care Team Providers Name Role Phone Kevin Miranda MD Primary Care Provider Encounter Details Date Type Department Care Team Description 12/14/2019 Scan Document - View Kevin Trimble, in Chart Practice [address] [place] [address] [place], [place] [phone] Social History Tobacco Use Types Packs/Day Years [...] Office Visit Family Medicine Kevin Miranda MD [address] [place] [address] (Wo rk) documented as of this encounter Visit Diagnoses Not on filedocumented in this encounter Care Teams Fish Processor Relationship Specialty Start Date End Date Kevin Miranda MD PCP - General Family Medicine 11/20/19 1020 [place] [address] documented as of this encounter
--- OUTSIDE RECORDS SUMMARY | 2021-11-06 15:53 | XMS_ITS | Encounter Summary ---
:1945 Author Organization [facility] Address 330 [facility], [address] [place] [address] Care Team Providers Name Role Phone Kevin Miranda MD Primary Care Provider Encounter Details Date Type Department Care Team Description 12/04/2020 [facility] Miranda MD Pre-operative examination (Primary Dx); Practice [address] [place] [address] PVC (premature ventricular contraction) [facility] [place] [address] [phone] Social History Tobacco Use Types Packs/Day Years [...] replacement with Dr. Chávez on 12/[address] [facility] ([place], [place]). She had a pre-op EKG and lab work done with Dr. Chávez 1 month ago. She now has bursitis in her left hip and intermittent back pain from altering her gait to accommodate for her right hip. 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 Looks forward to swimming without hip [...] Office Visit Family Medicine Kevin Miranda MD [address] [place] [address] (Wo rk) documented as of [...] beats documented in this encounter Care Teams Adapted Physical Education Teacher Relationship Specialty Start Date End Date Kevin Miranda MD PCP - General Family Medicine 11/20/19 1020 [place] [address] documented as of this encounter
--- OUTSIDE RECORDS SUMMARY | 2021-11-06 15:53 | XMS_ITS | Encounter Summary ---
:1945 Author Organization [facility] Address 330 [facility], [address] [place] [address] Care Team Providers Name Role Phone Kevin Miranda MD Primary Care Provider Encounter Details Date Type Department Care Team Description 03/05/2020 Scan Document - View [facility] Kevin Miranda, in Chart Practice [address] [place] [address] [place], [place] [phone] Social History Tobacco Use Types Packs/Day Years [...] Office Visit Family Medicine Kevin Miranda MD [address] [place] [address] (Wo rk) documented as of this encounter Visit Diagnoses Not on filedocumented in this encounter Care Teams Roll Cutting Operator Relationship Specialty Start Date End Date Kevin Miranda MD PCP - General Family Medicine 11/20/19 1020 [place] [address] documented as of this encounter
--- OUTSIDE RECORDS SUMMARY | 2021-11-06 15:53 | XMS_ITS | Encounter Summary ---
:1945 Author Organization [facility] Address 330 [facility], [address] [place] [address] Care Team Providers Name Role Phone Kevin Miranda MD Primary Care Provider Encounter Details Date Type Department Care Team Description 12/07/2020 Scan Document - View [facility] Kevin Miranda, in Chart Practice [address] [place], [place] [address] [place], [place] [phone] Social History Tobacco Use Types Packs/Day Years [...] Visit Family Medicine Kevin Miranda MD [address] [place] [address] (Wo rk) documented as of this encounter Visit Diagnoses Not on filedocumented in this encounter Care Teams Viscosity Worker Relationship Specialty Start Date End Date Kevin Miranda MD PCP - General Family Medicine 11/20/[address] [place] [address] documented as of this encounter
--- OUTSIDE RECORDS SUMMARY | 2021-11-06 15:53 | XMS_ITS | Encounter Summary ---
:1945 Author Organization [facility] Address 330 [facility], [address] [place] [address] Care Team Providers Name Role Phone Kevin Miranda MD Primary Care Provider Encounter Details Date Type Department Care Team Description 03/27/2020 Scan Document - View [facility] Kevin Miranda, in Chart Practice [address] [place], [place] [address] [place], [place] [phone] Social History Tobacco Use Types Packs/Day Years [...] Office Visit Family Medicine Kevin Miranda MD [address] [place] [address] (Wo rk) documented as of this encounter Visit Diagnoses Not on filedocumented in this encounter Care Teams Bench Mechanic Relationship Specialty Start Date End Date Kevin Miranda MD PCP - General Family Medicine 11/20/[address] [place] [address] documented as of this encounter
--- OUTSIDE RECORDS SUMMARY | 2021-11-06 15:53 | XMS_ITS | Encounter Summary ---
:1945 Author Organization [facility] Address [address] [facility], [address] [place] [address] Care Team Providers Name Role Phone Kevin Miranda MD Primary Care Provider Reason for Visit Reason Comments Diverticulitis Encounter Details Date Type Department Care Team Description 12/05/2019 Office Visit [facility] [place] [facility], Diverticuli tis of large [facility] Michele Wills MD intestine with abscess [address] [facility], [address] [place] [address] [phone] Social History Tobacco Use Types Packs/Day Years [...] Sign Reading Time Taken Comments Blood Pressure 114/72 12/05/2019 10:03 AM EDT Pulse 65 12/05/2019 10:03 AM EDT Temperature 35.9 ??C (96.7 ??F) 12/05/2019 10:03 AM EDT Respiratory Rate - - Oxygen Saturation - - Inhaled Oxygen Concentration - - Weight 58.1 kg (128 lb) 12/05/2019 10:03 AM EDT Height 170.2 cm (5' 7) 12/05/2019 10:03 AM EDT Body Mass Index 20.05 12/05/2019 10:03 AM EDT documented in this encounter Progress Notes Michele Watkins MD - 12/05/2019 10:00 AM EDT Subjective Patient ID: Molly Rios is a 74 y.o. female. HPI She is known to me for a brief admission for complicated diverticulitis in March 2019. She had a small 2 cm abscess. She had no free air or other free fluid. She recovered well from this bout. Her follow-up has been delayed by the pandemic. She has been well since and has not had any signs or symptoms of diverticulitis. She had one other bout which may have been 2 or just an incompletely treated bout in the winter 2018. She had a colonoscopy last year which shows diverticulosis. Her first bout was uncomplicated. She is concerned about her tendency towards constipation and wonders about testing and/or supplements or medications or dietary modifications to prevent diverticulitis. The following portions of the patient's history were reviewed and updated as appropriate: allergies,current medications, past medical history, past surgical history, past family history, past social history and problem list. Review of Systems Constitutional: Negative for chills, fatigue and fever. Respiratory: Negative for cough and shortness of breath. Cardiovascular: Negative for chest pain. Gastrointestinal: Negative for abdominal pain, anal bleeding, blood in stool, nausea and vomiting. Genitourinary: Negative for dysuria. Neurological: Negative for dizziness and light-headedness. Hematological: Negative for adenopathy. Does not bruise/bleed easily. Objective Physical Exam Vitals signs reviewed. Constitutional: General: She is not in acute distress. Appearance: She is well-developed. Eyes: General: No scleral icterus. Pulmonary: Effort: Pulmonary effort is normal. No respiratory distress. Neurological: Mental Status: She is alert and oriented to person, place, and time. Assessment/Plan Diagnoses and all orders for this visit: Diverticulitis of large intestine with abscess without bleeding She has a history of diverticulitis with one bout being complicated (small 2 cm abscess not requiring drainage, responsive to antibiotics). We discussed elective sigmoid resection versus expectant management. The merits of each approach were discussed. There is no medication or supplementation or dietary modification which is proven to be reliably preventative. A high-fiber diet may have some beneficial role and there is little downside to this. Control of constipation may help as well but again this is not definitive. We discussed potential options for control of constipation. An elective operation was described in detail along with the risks, benefits, alternatives, and postoperative course. Herquestions were all answered to her satisfaction. She will consider her options and may follow-up on an as-needed basis. More than half of visit spent counseling the patient. (25 minutes) documented in this encounter Plan of Treatment Upcoming Encounters Date Type Specialty Care Team Description 11/30/2021 Office Visit Family Medicine Kevin Miranda MD [address] [place] [phone] (Wo rk) documented as of this encounter Visit Diagnoses Diagnosis Diverticulitis of large intestine with a bscess without bleeding documented in this encounter Care Teams Pastor Relationship Specialty Start Date End Date Kevin Miranda MD PCP - General Family Medicine 11/20/[address] [place] [address] documented as of this encounter
--- OUTSIDE RECORDS SUMMARY | 2021-11-06 15:53 | XMS_ITS | Encounter Summary ---
:1945 Author Organization [facility] Address [address] [facility], [address] [place] [address] Care Team Providers Name Role Phone Kevin Miranda MD Primary Care Provider Encounter Details Date Type Department Care Team Description 09/10/2020 Scan Document - View [facility] Kevin Miranda, in Chart Practice [address] [place], [place] [id number] [place], [place] [phone] Social History Tobacco Use Types Packs/Day Years [...] Office Visit Family Medicine Kevin Miranda MD [address] [place] [phone] (Wo rk) documented as of this encounter Visit Diagnoses Not on filedocumented in this encounter Care Teams Clinical Trials Nurse Relationship Specialty Start Date End Date Kevin Miranda MD PCP - General Family Medicine 11/20/[address] [place] [address] documented as of this encounter
--- OUTSIDE RECORDS SUMMARY | 2021-11-06 15:53 | XMS_ITS | Encounter Summary ---
:1945 Author Organization [facility] Address [address] [facility], [address] [place] [address] Care Team Providers Name Role Phone Kevin Miranda MD Primary Care Provider Encounter Details Date Type Department Care Team Description 05/14/[facility] [address] [place] [address] [place] [address] [phone] (Wo rk) Social History Tobacco Use Types [...] Visit Family Medicine Kevin Miranda MD [address] [place] [phone] (Wo rk) documented as of this encounter Visit Diagnoses Not on filedocumented in this encounter Care Teams Post Hole Digger Relationship Specialty Start Date End Date Kevin Miranda MD PCP - General Family Medicine 11/20/19 [address] [place] [address] documented as of this encounter
--- OUTSIDE RECORDS SUMMARY | 2021-11-06 15:54 | XMS_ITS | Encounter Summary ---
:1945 Author Organization [facility] Address [address] [facility], [address] [place] [address] Care Team Providers Name Role Phone Laurie Elias NP Primary Care Provider Unavailable Encounter Details Date Type Department Care Team Description 04/10/2019 Telephone [facility] Kevin Crowe MD [facility] [place] [address] [place], [place] [id number] [place] [address] [phone] (Wo rk) Social History Tobacco Use Types [...] Visit Family Medicine Kevin Miranda MD [address] [place], [place] [phone] (Wo rk) documented as of this encounter Visit Diagnoses Not on filedocumented in this encounter Care Teams Otter Trawler Boatswain Relationship Specialty Start Date End Date Laurie Elias NP PCP - General Family Medicine 03/02/1811/19/19 documented as of this encounter
--- OUTSIDE RECORDS SUMMARY | 2021-11-06 15:54 | XMS_ITS | Encounter Summary ---
:1945 Author Organization [facility] Address [address] [facility], [address] [place] [address] Care Team Providers Name Role Phone Laurie Elias PAINT TRIMMER PIPE BOWLS Primary Care Provider Unavailable Encounter Details Date Type Department Care Team Description 01/24/2019 Scan Document - View Trini Gómez in Chart Practice PAINT TRIMMER [employer]OW[employer] [facility] [place] [address] Social History Tobacco Use Types Packs/Day Years [...] Office Visit Family Medicine Kevin Miranda MD [address] [place] [phone] (Wo rk) documented as of this encounter Visit Diagnoses Not on filedocumented in this encounter Care Teams Nuclear Medicine Technician Relationship Specialty Start Date End Date Laurie Elias NP PCP - General Family Medicine 03/02/1811/19/19 documented as of this encounter
--- OUTSIDE RECORDS SUMMARY | 2021-11-06 15:54 | XMS_ITS | Encounter Summary ---
:1945 Author Organization [facility] Address [address] [facility], [id number] [place] [address] Care Team Providers Name Role Phone Laurie Elias NP Primary Care Provider Unavailable Reason for Referral Diagnostic Imaging (Routine) - Closed Specialty Diagnoses / Procedures Referred By Contact Refer red To Contact Diagnoses Hip pain, right Antolin Motnana MD Procedures X-ray Hip 2-3 Views Right (Pelvis Optional) [address] [place] [address] Referral ID Status Reason Start Date Expiration Date Visits Requ ested Visits Authorized [id number] Closed 02/06/2019 02/06/2020 1 1 Reason for Visit Diagnostic Imaging (Routine) - Closed Specialty Diagnoses / Procedures Referred By Contact Refer red To Contact Diagnoses Hip pain, right Antolin Montana MD Procedures X-ray Hip 2-3 Views Right (Pelvis Optional) [address] [place] [address] Referral ID Status Reason Start Date Expiration Date Visits Requ ested Visits Authorized [id number] Closed 02/06/2019 02/06/2020 1 1 Encounter Details Date Type Department Care Team Description 02/06/2019 Hospital Encounter [facility] Jian Montana, X-ray at Medical Office [facility], [address] [place] [address] [facility], [address] [address] [phone] Social History Tobacco Use Types Packs/Day Years [...] Office Visit Family Medicine Kevin Miranda MD [facility] [place], [place] [address] (Wo rk) documented as [...] ation. Dictated: 02/06/2019 3:47 PM Report ID: [id number] Report signed in external system at 01/15 15:47 Reported By: Srinivasan Olson M.D. (resident ) ([id number]) Signed By: Jacoby Cunningham M.D. (FA ) Narrative 02/06/2019 3:47 PM EST RESPONSIBLE HOUSE BUILDER: Jacoby Cunningham M.D. EXAMINATION: XR HIP 2-3 [...] might be different from the original. RESPONSIBLE HOUSE BUILDER: Jacoby Cunningham M.D. EXAMINATION: XR HIP 2-3 [...] ation. Dictated: 02/06/2019 3:47 PM Report ID: [id number] Report signed in external system at 01/15 15:47 Reported By: Srinivasan Olson M.D. (resident ) ([id number]) Signed By: Jacoby Cunningham M.D. ([facility] ) Antolin Montana MD IMG XR PROCEDURES documented in this encounter Visit Diagnoses Diagnosis Hip pain, right Pain in joint, pelvic region and thigh documented in this encounter Care Teams Mirror Painter Relationship Specialty Start Date End Date Laurie Elias NP PCP - General Family Medicine 03/02/1811/19/19 documented as of this encounter
--- OUTSIDE RECORDS SUMMARY | 2021-11-06 15:54 | XMS_ITS | Encounter Summary ---
:1945 Author Organization [facility] Address [address], [address] [place] [address] Care Team Providers Name Role Phone Laurie Elias NP Primary Care Provider Unavailable Reason for Visit Reason Comments colon abscess Auth/Cert Specialty Diagnoses / Procedures Referred By Contact Refer red To Contact Diagnoses Pericolonic abscess Procedures n/a Referral ID Status Reason Start Date Expiration Date Visits Requ ested Visits Authorized [id number] 1 1 Encounter Details Date Type Department Care Team Description 04/13/2019 - Hospital Encounter [facility] Castro MD [address] [place] [id number] 04/14/2019 8 Nursing Unit Michele Watkins MD [address] [place] [phone] [place] [phone] Social History Tobacco Use Types Packs/Day Years [...] hillary Gilman. 5-FU, cryo ??? Anxiety ??? Arthritis ??? [...] and well perfused, no edema Discharge medications: Gabriel Molly Schmidt Home Medication Instructions TRACIE:[id number] Printed on:04/14/19 3757 Medication Information b complex vitamins capsule Take [...] Center 06/11/2019 1:45 PM MD [facility] Yoan Owen MD 04/14/19 1:01 PM Associated attestation - Michele Watkins MD - 04/15/2019 8:38 AM EST I saw and evaluated the patient, participating in the dueñas portions of the service. I reviewed the resident???s note. I agree with the resident???s findings and plan. documented in this encounter Discharge Instructions Discharge Instr - AVS First Uli Owen MD - 04/14/2019 1:01 PM EST Molly Rios You were admitted to [facility] for acute diverticulitis with an abscess [...] * FOLLOW-UP: Please call our office at [phone] with any questions. You do not need [...] best as you continue in your recovery. [facility] General Surgery team. documented in this encounter [...] - Admit to General Surgery ([place]) - Zenobia, IVF - IV Cipro/Flagyl - Trend CRP [...] Lopez MD - 04/13/2019 1:19 PM EST Watch Repairer's ED Note Date: 04/13/19 Patient Name: Molly [...] Ringer's infusion, 75 mL/hr, intravenous, Continuous, Micheal Brtit MD ??? metroNIDAZOLE (FLAGYL) IVPB 500 mg, [...] 81, nl intervals, no STEMI [DW] 1636 sales consultant residential manager has evaluated patient. [DW] 1702 Plan [...] Osteopenia; Fracture of left clavicle; Other emphysema (CMS/HCC); Routine adult health maintenance; Anxiety and depression; [...] following orders were created for panel order [place] draw. Procedure Abnormality Status --------- ------ Gold Top[[id number]] In process Gold Top[[id number]] In process Light Blue Top[[id number]] In process Lavender Top[[id number]] Red Top[[id number]] In process Please view results for these [...] 81, nl intervals, no STEMI [DW] 1636 sales consultant residential manager has evaluated patient. [DW] 1702 Plan [...] with voice-recognition software. Mitra Rocha MD 04/16/19 1553 documented in this encounter Miscellaneous Notes Plan [...] medically cleared to Dc home without services ([facility] order placed for DC). DC paperwork gone [...] nausea and anorexia. Today she came to [facility] ER with a temp of 100.5F and [...] appeitite. AOX4. Independent in the room. Refusing tele, MD Britt aware. Pt oriented to floor, room and [...] Visit Family Medicine Kevin Miranda MD [address] [place] [address] [phone] (Wo rk) documented as of [...] PM EST RAINBOW DRAW STAT 04/13/2019 3:44 Results for this PM EST procedure are i [...] (04/14/2019 6:03 AM EST) Analysis Performed At [facility] logist Time Signature C REACTIVE 28.5 (H) <10.0 mg/L 04/14/2019 [place] PROTEIN 9:10 AM [facility] LABORATORY Comment: This test should not be [...] Organization Address City/State/ZIP Code Phon e Number [facility] [address] [address] LABORATORY (ABNORMAL) CBC with Auto Differential (04/14/2019 6:03 AM EST) [facility] gist Method Time Signature WBC 3.43 (L) 4.00 to 04/14/2019 [place] 11.00 x 8:04 AM [facility] 10*3u/L LABORATORY 10*3/uL nRBC 0 0 - 0 04/14/2019 [place] /100 WBCs 8:04 AM [facility] RBC 3.95 3.90 to 04/14/2019 [place] 5.20 x 8:04 AM [facility] 10*6/uL LABORATORY 10*6/uL HGB 12.6 12.0 to 04/14/2019 [place] 16.0 g/dL 8:04 AM [facility] g/dL LABORATORY HCT 36.1 36.0% to 04/14/2019 [place] 46.0% % 8:04 AM [facility] MCV 91.4 80.0 to 04/14/2019 [place] 100.0 fL 8:04 AM [facility] fL LABORATORY MCH 31.9 26.0 - 04/14/2019 [place] 33.0 pg 8:04 AM [facility] MCHC 34.9 31.0 to 04/14/2019 [place] 37.0 g/dL 8:04 AM [facility] g/dL LABORATORY PLT 277 150 to 04/14/2019 [place] 350 x 8:04 AM [facility] 10*3u/l LABORATORY 10*3u/L RDW-CV 12.8 11.5 - 04/14/2019 [place] 14.5 % 8:04 AM [facility] Segmented % 55.6 30.0 - 04/14/2019 [place] 85.0 % 8:04 AM [facility] ABS Neutrophil 1.91 1.20 - 04/14/2019 [place] 9.30 8:04 AM [facility] 10*3/uL LABORATORY Lymphocytes % 26.5 15.0 - 04/14/2019 [place] 50.0 % 8:04 AM [facility] ABS Lymphocyte 0.91 0.60 - 04/14/2019 [place] 5.50 8:04 AM [facility] 10*3u/L LABORATORY Monocytes % 14.0 (H) 2.0 - 04/14/2019 [place] 12.0 % 8:04 AM [facility] Abs Monocyte 0.48 0.08 to 04/14/2019 [place] 1.30 x 8:04 AM [facility] 10*3u/L LABORATORY 10*3u/L Eosinophils % 0.9 0.0 - 5.0 04/14/2019 [place] % 8:04 AM [facility] ABS Eosinophils 0.03 0.00 to 04/14/2019 [place] 0.68 x 8:04 AM [facility] 10*3u/L LABORATORY 10*3u/L Basophil % 1.5 0.0 - 2.0 04/14/2019 [place] % 8:04 AM [facility] ABS Basophils 0.05 0.00 - 04/14/2019 [place] 0.20 8:04 AM [facility] 10*3/uL LABORATORY IMM GRAN 1.5 (H) 0.0 - 1.0 04/14/2019 [place] % 8:04 AM [facility] ABS IMM GRAN 0.05 0.00 - 04/14/2019 [place] 0.10 8:04 AM [facility] 10*3/uL LABORATORY Specimen Anatomical Collection Method Collection Time Receive d Time (Source) Location / / Volume Laterality Blood Venous blood / 04/14/2019 6:03 AM 020 7:12 Unknown EST AM EST Narrative [facility] LABORATORY - 8:04 AM EST Immature granulocyte (IG %) % includes p [...] Organization Address City/State/ZIP Code Phon e Number [facility] [address] [address] LABORATORY (ABNORMAL) Basic metabolic panel (04/14/2019 6:03 AM [facility]) P athologist Signature Sodium 140 137 - 145 04/14/2019 [place] mmol/L 9:06 AM [facility] Potassium 4.0 3.5 - 5.1 04/14/2019 [place] mmol/L 9:06 AM [facility] CHLORIDE 105 98 - 107 04/14/2019 [place] mmol/L 9:06 AM [facility] CARBON DIOXIDE, 26.0 22.0 - 04/14/2019 [place] TOTAL 30.0 9:06 AM [facility] mmol/L LABORATORY ANION GAP 9.0 6 - 14 04/14/2019 [place] 9:06 AM [facility] GLUCOSE 91 70 - 99 04/14/2019 [place] mg/dL 9:06 AM [facility] BUN 6 (L) 7 - 17 04/14/2019 [place] mg/dL 9:06 AM [facility] CREATININE 0.6 0.5 - 1.0 04/14/2019 [place] mg/dL 9:06 AM [facility] GFR >60 04/14/2019 [place] 9:06 AM [facility] Comment: eGFR Reference Range: ? > 60 mL/min/1.73 Sq meter In Americans the eGFR should be multiplied by 1.212. CALCIUM 8.9 8.3 - 10.3 mg/dL 04/14/2019 9:06 AM [facility] LABORATORY Specimen Anatomical Collection Method Collection Time Receive d Time (Source) Location / / Volume Laterality Blood Venous blood / 04/14/2019 6:03 AM 020 7:07 Unknown EST AM EST Michele Watkins MD LAB BLOOD ORDERABLES Performing Organization Address City/State/ZIP Code Phon e Number [place] [address] LABORATORY Blood culture (04/13/2019 3:53 PM EST) Patholo gist Method Time Signature Blood Culture No growth 5 04/18/2019 [place] 4:02 PM [facility] Specimen Anatomical Collection Method / Collection Time Recei nancy Time (Source) Location / Volume Laterality Blood Venous blood / Venipuncture / 04/13/2019 3:53 04/13/19 20 3:58 Unknown Unknown PM EST PM EST Mitra Rocha MD LAB MICROBIOLOGY - GENERAL O RDERABLES Performing Organization Address City/State/ZIP Code Phon e Number [address] [address] LABORATORY Magnesium (04/13/2019 3:44 PM EST) P athologist Signature Magnesium 2.0 1.6 - 2.3 04/13/2019 [place] Blood mg/dL 7:49 PM [facility] Specimen Anatomical Collection Method / Collection Time Recei nancy Time (Source) Location / Volume Laterality Blood Venous blood / Venipuncture / 04/13/2019 3:44 04/13/19 20 3:58 Unknown Unknown PM EST PM EST Michele Watkins MD LAB BLOOD ORDERABLES Performing Organization Address City/State/ZIP Code Phon e Number [address] [address] LABORATORY Phosphorus (04/13/2019 3:44 PM EST) P athologist Signature PHOSPHATE 4.0 2.5 - 4.5 04/13/2019 [place] mg/dL 7:49 PM EST HOSPITAL LABORATORY Specimen Anatomical Collection Method / Collection Time Recei nancy Time (Source) Location / Volume Laterality Blood Venous blood / Venipuncture / 04/13/2019 3:44 04/13/19 20 3:58 Unknown Unknown PM EST PM EST Michele Watkins MD LAB BLOOD ORDERABLES Performing Organization Address [facility]/ZIP Code Phon e Number [address] [address] LABORATORY (ABNORMAL) C-reactive protein (04/13/2019 3:44 PM EST) Analysis Performed At Patho logist Time Signature C REACTIVE 34.1 (H) <10.0 mg/L 04/13/2019 [place] PROTEIN 5:56 PM EST HOSPITAL LABORATORY Comment: [...] Organization Address City/State/ZIP Code Phon e Number [address] [address] LABORATORY Red Top (04/13/2019 3:44 PM EST) Specimen Anatomical Collection Method / Collection Time Recei nancy Time (Source) Location / Volume Laterality Blood Venous blood / Venipuncture / 04/13/2019 3:44 04/13/19 20 3:59 Unknown Unknown PM EST PM EST Mitra Rocha MD LAB BLOOD ORDERABLES Performing Organization Address City/State/ZIP Code Phon e Number [address] [address] LABORATORY Light Blue Top (04/13/2019 3:44 PM EST) Specimen Anatomical Collection Method / Collection Time Recei nancy Time (Source) Location / Volume Laterality Blood Venous blood / Venipuncture / 04/13/2019 3:44 04/13/19 20 3:59 Unknown Unknown PM EST PM EST Mitra Rocha MD LAB BLOOD ORDERABLES Performing Organization Address City/[facility]/ZIP Code Phon e Number [address] [address] LABORATORY Gold Top (04/13/2019 3:44 PM EST) Specimen Anatomical Collection Method / Collection Time Recei nancy Time (Source) Location / Volume Laterality Blood Venous blood / Venipuncture / 04/13/2019 3:44 04/13/19 20 3:58 Unknown Unknown PM EST PM EST Mitra Rocha MD LAB BLOOD ORDERABLES Performing Organization Address City/[facility]/ZIP Code Phon e Number [address] [address] LABORATORY Gold Top (04/13/2019 3:44 PM EST) Specimen Anatomical Collection Method / Collection Time Recei nancy Time (Source) Location / Volume Laterality Blood Venous blood / Venipuncture / 04/13/2019 3:44 04/13/19 20 3:58 Unknown Unknown PM EST PM EST Mitra Rocha MD LAB BLOOD ORDERABLES Performing Organization Address City/State/ZIP Code Phon e Number [address] [address] LABORATORY Blood culture (04/13/2019 3:44 PM EST) [facility] gist Method Time Signature Blood Culture No [...] Organization Address City/State/ZIP Code Phon e Number [address] [address] LABORATORY Lipase (04/13/2019 3:44 PM EST) athologist Signature LIPASE 65 23 - 300 04/13/2019 [place] U/L 4:14 PM [facility] LABORATORY Specimen Anatomical Collection Method / Collection Time Recei nancy Time (Source) Location / Volume Laterality Blood Venous blood / Venipuncture / 04/13/2019 3:44 04/13/19 20 3:58 Unknown Unknown PM EST PM EST Mitra Rocha MD LAB BLOOD ORDERABLES Performing Organization Address City/State/ZIP Code Phon e Number [place] [address] LABORATORY Hepatic function panel (04/13/2019 3:44 PM EST) athologist Signature PROTEIN TOTAL 6.8 6.3 - 8.2 04/13/2019 [facility] g/dL 4:14 PM [facility] LABOR[facility]ORY ALBUMIN 3.7 3.5 - 5.0 04/13/2019 [facility] g/dL 4:14 PM [facility] Bilirubin Total 0.4 0.2 - 1.3 04/13/2019 [facility] mg/dL 4:14 PM [facility] LAB[facility]ORY BILIRUBIN DIRECT 0.2 0.0 - 0.4 04/13/2019 [facility] mg/dL 4:14 PM [facility] LAB[facility] AST (SGOT) 32 15 - 46 04/13/2019 [facility] U/L 4:14 PM [facility] LAB[facility] ALT 41 13 - 69 04/13/2019 [facility] U/L 4:14 PM [facility] LAB[facility]ORY ALKALINE 97 38 - 126 04/13/2019 [facility] PHOSPHATASE U/L 4:14 PM [facility] Specimen Anatomical Collection Method / Collection Time Recei nancy Time (Source) Location / Volume Laterality Blood Venous blood / Venipuncture / 04/13/2019 3:44 04/13/19 20 3:58 Unknown Unknown PM EST PM EST Mitra Rocha MD LAB BLOOD ORDERABLES Performing Organization Address City/State/ZIP Code Phon e Number [address] [address] LABORATORY (ABNORMAL) Basic metabolic panel w/GFR (04/13/2019 3:44 PM EST) Analysis Performed At Patho logist Time Signature Sodium 134 (L) 137 - 145 04/13/2019 [place] mmol/L 4:14 PM [facility] LAB[facility]ATORY Potassium 4.3 3.5 - 5.1 04/13/2019 [place] mmol/L 4:14 PM [facility] LABORATORY CHLORIDE 100 98 - 107 04/13/2019 [place] mmol/L 4:14 PM [facility] LABORATORY CARBON DIOXIDE, 24.0 22.0 - 04/13/2019 [place] TOTAL 30.0 4:14 PM [facility] mmol/L LABORATORY ANION GAP 10.0 6 - 14 04/13/2019 [place] 4:14 PM [facility] GLUCOSE 117 (H) 70 - 99 04/13/2019 [place] mg/dL 4:14 PM [facility] BUN 10 7 - 17 04/13/2019 [place] mg/dL 4:14 PM [facility] CREATININE 0.5 0.5 - 1.0 04/13/2019 [place] mg/dL 4:14 PM [facility] GFR >60 04/13/2019 [place] 4:14 PM [facility] Comment: eGFR Reference Range: ? > 60 mL/min/1.73 Sq meter In Americans the eGFR should be multiplied by 1.212. CALCIUM 9.5 8.3 - 10.3 mg/dL 04/13/2019 4:14 PM [facility] Specimen Anatomical Collection Method / Collection Time Recei nancy Time (Source) Location / Volume Laterality Blood Venous blood / Venipuncture / 04/13/2019 3:44 04/13/19 20 3:58 Unknown Unknown PM EST PM EST Mitra Rocha MD LAB BLOOD ORDERABLES Performing Organization Address City/State/ZIP Code Phon e Number [facility] [address] [place], [place] [address] LABORATORY (ABNORMAL) CBC auto differential (04/13/2019 3:43 PM EST) Patholo gist Method Time Signature WBC 5.55 4.00 to 04/13/2019 [place] 11.00 x 4:10 PM [facility] 10*3u/L LABORATORY 10*3/uL nRBC 0 0 - 0 04/13/2019 [place] /100 WBCs 4:10 PM [facility] RBC 4.37 3.90 to 04/13/2019 [place] 5.20 x 4:10 PM [facility] 10*6/uL LABORATORY 10*6/uL HGB 13.9 12.0 to 04/13/2019 [place] 16.0 g/dL 4:10 PM [facility] g/dL LABORATORY HCT 39.5 36.0% to 04/13/2019 [place] 46.0% % 4:10 PM [facility] LABORATORY MCV 90.4 80.0 to 04/13/2019 [place] 100.0 fL 4:10 PM [facility] fL LABORATORY MCH 31.8 26.0 - 04/13/2019 [place] 33.0 pg 4:10 PM [facility] MCHC 35.2 31.0 to 04/13/2019 [place] 37.0 g/dL 4:10 PM [facility] g/dL LABORATORY PLT 283 150 to 04/13/2019 [place] 350 x 4:10 PM [facility] 10*3u/l LABORATORY 10*3u/L RDW-CV 12.8 11.5 - 04/13/2019 [place] 14.5 % 4:10 PM [facility] LABORATORY Segmented % 77.6 30.0 - 04/13/2019 [place] 85.0 % 4:10 PM [facility] ABS Neutrophil 4.31 1.20 - 04/13/2019 [place] 9.30 4:10 PM [facility] 10*3/uL LABORATORY Lymphocytes % 8.5 (L) 15.0 - 04/13/2019 [place] 50.0 % 4:10 PM [facility] ABS Lymphocyte 0.47 (L) 0.60 - 04/13/2019 [place] 5.50 4:10 PM [facility] 10*3u/L LABORATORY Monocytes % 12.6 (H) 2.0 - 04/13/2019 [place] 12.0 % 4:10 PM [facility] Abs Monocyte 0.70 0.08 to 04/13/2019 [place] 1.30 x 4:10 PM [facility] 10*3u/L LABORATORY 10*3u/L Eosinophils % 0.0 0.0 - 5.0 04/13/2019 [place] % 4:10 PM [facility] ABS Eosinophils 0.00 0.00 to 04/13/2019 [place] 0.68 x 4:10 PM [facility] 10*3u/L LABORATORY 10*3u/L Basophil % 0.9 0.0 - 2.0 04/13/2019 [place] % 4:10 PM [facility] ABS Basophils 0.05 0.00 - 04/13/2019 [place] 0.20 4:10 PM [facility] 10*3/uL LABORATORY IMM GRAN 0.4 0.0 - 1.0 04/13/2019 [place] % 4:10 PM [facility] ABS IMM GRAN 0.02 0.00 - 04/13/2019 [place] 0.10 4:10 PM [facility] 10*3/uL LABORATORY Specimen Anatomical Collection Method / Collection Time Recei nancy Time (Source) Location / Volume Laterality Blood Venous blood / Venipuncture / 04/13/2019 3:43 04/13/19 20 3:58 Unknown Unknown PM EST PM EST Mitra Rocha MD LAB BLOOD ORDERABLES Performing Organization Address City/State/ZIP Code Phon e Number [facility] [address] [address] LABORATORY EKG (04/13/2019 3:42 PM EST) Specimen (Source) Anatomical Collection Method Collection Time Re ceived Time Location / / Volume Laterality 04/13/2019 3:42 PM EST Mitra Rocha MD ECG ORDERABLES Performing Organization Address City/State/ZIP Code Phon e Number [facility] [address] [address] documented in this encounter Visit Diagnoses Diagnosis [...] Minutes, Every 12 hours, First dose on 04/13/19 at 1705, Premix bag, Indication: Abscess ciprofloxacin (CIPRO) tablet 500 mg Given 04/14/2019 8:29 AM EST 500 mg 500 mg, oral, 2 times daily, First dose on 04/14/19 at 0900, For 14 days, Administer at [...] 04/14/2019 ciprofloxacin (CIPRO) IVPB 400 mg (CANCELED) 1842 (APR Hold - Provider: Automatic Transfer Provider - Reason: Unreviewed Transfer Orders)2011 ([facility] Unhold - Provider: Micheal Britt MD)2026 (New Bag - Provider: Chu Tomlin RN) 400 mg, intravenous, at 200 mL/hr, Admin ister over 60 Minutes, Every 12 hours, First dose on Tue04/13/19 at 1705, Premix bag, Indication: Abscess ciprofloxacin (CIPRO) tablet 500 mg 828 (Given - Provider: Aisha Bland RN) 500 mg, oral, 2 times daily, First dose on Tue04/14/19 at 0900, For 14 days, Administer at least 2 hrs before or 6 hrs after oral calcium, magnesium, zinc, and iron containing products. To be given at l east 1 hr before enteral feeding., Indication: Diverticulitis heparin (porcine) injection 5,000 Units 184 (MAR Hold - Provider: Automatic Transfer Provider - Reason: Unreviewed Transfer Orders)2011 ([facility] Unhold - Provider: Micheal Britt [...] crush metroNIDAZOLE (FLAGYL) IVPB 500 mg (CANCELED) 180 (New Bag - Provider: Remedios Garner RN)183 (Stopped - Provider: Chu Tomlin RN)184 (MAR Hold - Provider: Automatic Transfer Provider - Reason: Unreviewed Transfer Orders)2011 ([facility] Unhold - Provider: Micheal Britt MD) 020 (New Bag - Provider: Letty Mcneal) 500 [...] 1705 2157 (New Bag - Provider: Chu Tomlin, RN) PRN Medication Order 04/12/2019 04/13/2019 04/14/2019 ibuprofen (ADVIL,MOTRIN) tablet 400 mg 2 253 (Given - Provider: Chu Tomlin, RN) 400 mg, oral, Every 6 hours PRN, mild pa in (1-3), Starting Tue04/13/19 at 2246, For 3 days, Administer with food or milk to decrease GI upset Do not crush ondansetron (ZOFRAN) injection 4 mg 1843 (APR Hold - Provider: Automatic Transfer Provider - Reason: Unreviewed Transfer Orders)2011 ([facility] Unhold - Provider: Micheal Britt MD) 4 mg, intravenous, Administer over 2-5 M inutes, Every 6 hours PRN, nausea, vomiting, Starting Tue04/13/19 at 1702 documented in this encounter Care Teams Color Sprayer Relationship Specialty Start Date End Date Laurie Elias NP PCP - General Family Medicine 03/02/1811/19/19 documented as of this encounter
--- OUTSIDE RECORDS SUMMARY | 2021-11-06 15:54 | XMS_ITS | Encounter Summary ---
:1945 Author Organization [facility] Address [address], [address] [place] [address] Care Team Providers Name Role Phone Laurie Elias NP Primary Care Provider Unavailable Reason for Visit Reason Comments Med Refill Encounter Details Date Type Department Care Team Description 06/06/2019 Refill [facility] actice Laurie Elias NP [facility] [place] [address] Social History Tobacco Use Types Packs/Day Years [...] Office Visit Family Medicine Kevin Miranda MD [facility] [place], [place] [address] (Wo rk) documented as of this encounter Visit Diagnoses Not on filedocumented in this encounter Care Teams Auction Assistant Relationship Specialty Start Date End Date Laurie Elias NP PCP - General Family Medicine 03/02/1811/19/19 documented as of this encounter
--- OUTSIDE RECORDS SUMMARY | 2021-11-06 15:54 | XMS_ITS | Encounter Summary ---
:1945 Author Organization [facility] Address 330 [facility], [address] [place] [address] Care Team Providers Name Role Phone Laurie Elias NP Primary Care Provider Unavailable Encounter Details Date Type Department Care Team Description 12/06/2018 Surgery [place] Astudillo MD COLONOSCOPY [08622 Gastroenterology/Endosc 330 [place] (CPT??)] [facility] [address] 330 [facility] eet [place], [place] [address] [place] [address] (Wo rk) [address] [phone] Surgery Details Date/Time Status Location OR Service Patient Class Case Case Trauma Class Type Case? 12/06/18 Posted [facility] GI GI [address] [place] [address] 9:30 AM Outpatient Surgery Panel 1 Procedure LRB Anes Op Region Wound Class Commen ts COLONOSCOPY N/A MAC Anus Class II Clean-Contamina lesly Surgeon Surgeon Role Service Panel Dallas Astudillo [...] INSTRUCTIONS: Please call Dr. Astudillo office at [phone] if you develop the following symptoms in [...] cecum, confirmed by appendiceal orifice, cecal strap (solomon's foot), and ileocecal valve. The scope was withdrawn and the mucosa was carefully examined. The quality of the preparation was good. The views were good. The patient's toleration of the procedure was good. Scope(s)/SN:[id number] Time Started: 09:32 Cecum Time: 09:42 Time Ended: 09:47 Estimated Blood Loss: None. Findings: There was evidence of severe diverticulosis in the descending colon. Otherwise, the colon appeared to be normal. Complications: There were no immediate complications. Impression: Severe diverticulosis found in the descending colon. No sign of active diverticulitis Recommendations: Colonoscopy recommended in 10 years. Procedure Codes: 57897 - colonoscopy G0500 - moderate sedation ICD-9 [...] Office Visit Family Medicine Kevin Miranda MD [address] [place] [address] (Wo rk) documented as of [...] cecum, confirmed by appendiceal orifice, cecal strap (solomon's foot), and ileocecal valve. The scope was withdrawn and the mucosa w as carefully examined. The quality of the preparation was good. The views were good. The patient's toleration of the procedure wa s good. Scope(s)/SN:[id number] Time Star lesly: 09:32 Cecum Time: 09:42 Time Ended: 09:47 Estimated Blood Loss: None. Findings: There was evidence of severe d iverticulosis in the descending colon. Otherwise, the colon a ppeared to be normal. Complications: There were no immediate c omplications. Impression: Severe diverticulosis found in the descending colon. No sign of active diverticulitis Recommendations: Colonoscopy recommended in 10 years. Procedure Codes: 71971 - colonoscopy G05 00 - moderate sedation ICD-9 Codes: 562.10 Diverticulosis of co katherine (without mention of hemorrhage) ICD-10 Codes: Z12.11 Encounter for scree megan for malignant neoplasm of colon Moderate Sedation [...] Pre-op documented in this encounter Care Teams Tray Drier Operator Relationship Specialty Start Date End Date Laurie Elias NP PCP - General Family Medicine 03/02/1811/19/19 documented as of this encounter
--- OUTSIDE RECORDS SUMMARY | 2021-11-06 15:54 | XMS_ITS | Encounter Summary ---
:1945 Author Organization [facility] Address 330 [facility], [address] [place] [address] Care Team Providers Name Role Phone Laurie Elias TITLE ONE KINDERGARTEN TEACHER Primary Care Provider Unavailable Encounter Details Date Type Department Care Team Description 03/08/2019 Orders Only [facility] actLaurie Carr NP [facility] [place] [address] Social History Tobacco Use Types Packs/Day Years [...] Visit Family Medicine Kevin Miranda MD [address] [place], [place] [address] (Wo rk) documented as of this encounter Visit Diagnoses Not on filedocumented in this encounter Care Teams Features Editor Relationship Specialty Start Date End Date Laurie Elias NP PCP - General Family Medicine 03/02/1811/19/19 documented as of this encounter
--- OUTSIDE RECORDS SUMMARY | 2021-11-06 15:54 | XMS_ITS | Encounter Summary ---
:1945 Author Organization [facility] Address 330 [facility], [address] [place] [address] Care Team Providers Name Role Phone Kevin Miranda MD Primary Care Provider Encounter Details Date Type Department Care Team Description 11/23/2019 Office Visit Kaushik Miranda, Encounter for Medicare annual wellness exam (Primary Dx); Practice MD Kevin Other emphysema ([facility]); [address] Gastroesophageal reflux disease without esophagitis; [place] [address] [place] Insomnia, unspecified type; [phone] [address] Osteopenia, unspecified location; [phone] Primary osteoar thritis of right hip; (Work) Spasm of muscle of lower back; [phone] Need for influe nza vaccination; (Fax) Screening [...] file Gets together: Not on file Attends lutheran service: Not on file Active member of [...] with and son. Works 1 day/wk at [employer], likes it. Meditates, swims, involved in [employer], reads. Current Outpatient Medications Medication Sig [...] recommended due to inadequate prep at sigmoid ([id number]) Skin cancer prevention and symptoms discussed, encouraged [...] 11/25/2019 12:12 PM EDTAssociated Problem(s): Other emphysema (CMS/[facility]ER[facility]) Dx via PFT in 11/30, mild obstruction. [...] Visit Family Medicine Kevin Miranda MD [address] [place], [place] [address] (Wo rk) documented as [...] (11/23/2019 2:18 PM EDT) Analysis Performed At [facility] logis Time Signature Vitamin D 25 34 30 - 100 [facility] Hydroxy,Total ng/mL [facility] Comment: Vitamin D Status ? 25-OH Vitam in D: Deficiency: ?<20 ng/mL Insufficiency: ? 20 - 29 ng/mL Optimal: ? > or = 30 ng/mL For 25-OH Vitamin D testing on patients on D2-supplementation and patients for whom quantitation of D2 and D3 fractions is required, the QuestAssure[facility](TM) 25-OH VIT D, (D2,D3), LC/MS/MS is recomm ended: order code 53881 (patients >2yrs). See Note 1 Note 1 For additional information, please refer to http://education.Venuetastic.[place]/fa q/CQG652 (This link is being provided for informa tional/ educational purposes only.) Specimen Anatomical Collection Method Collection Time Receive d Time (Source) Location / / Volume Laterality Blood Venous blood / 11/23/2019 2:18 PM 020 2:19 Unknown EDT PM EDT Kevin Miranda MD LAB BLOOD ORDERABLES Performing Organization Address City/State/ZIP Code Phon e Number [facility] [address] [phone] [place] [address], [address] [facility] [address] [place] [address], [facility] [address] [address] Diagnost Basic Metabolic Panel - [facility] (11/23/2019 2:18 PM EDT) P athologist Signature Glucose 84 65 - 99 [facility] mg/dL [facility] Comment: ? Fasting reference interv al Bun 18 7 - 25 mg/dL [facility] Creatinine, Ser 0.77 0.60 - 0.93 mg/dL [facility] Comment: For patients >49 years of age, the refer ence limit for Creatinine is approximately 13% high er for people identified as -Stateless. eGFR NON-AFR. 77 > OR = 60 mL/min/1.73m2 Qu est Diagnostics [facility] eGFR 89 > OR = 60 mL/min/1.73m2 Que st Diagn[facility] BUN/Creatinine NOT APPLICABLE 6 - 22 (calc) [facility] Ratio [facility] Sodium 138 135 - 146 mmol/L [facility] Potassium 3.9 3.5 - 5.3 mmol/L [facility] Chloride 101 98 - 110 mmol/L [facility] CO2 27 20 - 32 mmol/L [facility] Calcium 9.3 8.6 - 10.4 mg/dL [facility] Specimen Anatomical Collection Method Collection Time Receive d Time (Source) Location / / Volume Laterality Blood Venous blood / 11/23/2019 2:18 PM 020 2:19 Unknown EDT PM EDT Kevin Miranda MD LAB BLOOD ORDERABLES Performing Organization Address City/State/ZIP Code Phon e Number [facility] [address] [phone] [place] [address] B [facility] [address] [place] [address], [facility] [address] [address] Diagnost (ABNORMAL) Lipid Panel, Standard - [facility] (11/23/2019 2:18 PM EDT) Patholo gist Method Time Signature Cholesterol, 228 (H) <200 [facility] Total mg/dL [facility] HDL Cholesterol 114 > OR = 50 [facility] mg/dL [facility] TRIGS 76 <150 [facility] mg/dL [facility] LDL Cholesterol 97 mg/dL [facility] (calc) [facility] Comment: Reference range: <100 Desirable range <100 [...] SS et al. GEOVANNA. 2013;310(19): 206 1-2068 (http://education.iPharro Media/f aq/HMX940) HDL 2.0 <5.0 (calc) [facility] Non HDL Chol. (LDL+VLDL) 114 <130 mg/dL (calc) [facility] Comment: For patients with diabetes plus 1 [...] Organization Address City/State/ZIP Code Phon e Number [facility] [address] [phone] [facility] [address] [place] [address] [facility] [address] [address] Diagnost documented in this encounter Visit Diagnoses Diagnosis Encounter for Medicare annual wellness e xam - Primary Other emphysema (CMS/[facility]) Other emphysema Gastroesophageal reflux disease without esophagitis Esophageal reflux Insomnia, unspecified type Osteopenia, unspecified location Primary osteoarthritis of right hip Spasm of muscle of lower back Need for influenza vaccination Need for prophylactic vaccination and in oculation against influenza Screening for depression documented in this encounter Care Teams Cardiologist Relationship Specialty Start Date End Date Kevin Miranda MD PCP - General Family Medicine 11/20/[address] [place], [place] [phone] documented as of this encounter
--- OUTSIDE RECORDS SUMMARY | 2021-11-06 15:54 | XMS_ITS | Encounter Summary ---
:1945 Author Organization [facility] Address 330 [facility], [address] [place] [address] Care Team Providers Name Role Phone Kevin [...] Office Visit Family Medicine Kevin Miranda MD [address] [place] [address] (Wo rk) documented as of this encounter Visit Diagnoses Not on filedocumented in this encounter Care Teams Mannequin Refinisher Relationship Specialty Start Date End Date Kevin Miranda MD PCP - General Family Medicine 11/20/[address] [place] [address] documented as of this encounter
--- OUTSIDE RECORDS SUMMARY | 2021-11-06 15:54 | XMS_ITS | Encounter Summary ---
:1945 Author Organization [facility] Address 330 [facility], [address] [place] [address] Care Team Providers Name Role Phone Laurie Elias CAR DEALER Primary Care Provider Unavailable Encounter Details Date Type Department Care Team Description 11/30/2018 Refill [facility] actLaurie Carr NP [facility]0 [place] [address] Social History Tobacco Use Types Packs/Day Years [...] Office Visit Family Medicine Kevin Miranda MD [facility] [place], [place] [address] (Wo rk) documented as of this encounter Visit Diagnoses Not on filedocumented in this encounter Care Teams Social Work Manager Relationship Specialty Start Date End Date Laurie Elias NP PCP - General Family Medicine 03/02/1811/19/19 documented as of this encounter
--- OUTSIDE RECORDS SUMMARY | 2021-11-06 15:54 | XMS_ITS | Encounter Summary ---
:1945 Author Organization [facility] Address 330 [facility], [address] [place] [address] Care Team Providers Name Role Phone Kevin Miranda MD Primary Care Provider Reason for Referral Diagnostic Imaging (Routine) - Closed Specialty Diagnoses / Procedures Referred By Contact Refer red To Contact Diagnoses Hip pain, right Antolin Montana MD Procedures X-ray Hip 2-3 Views Right (Pelvis Optional) [address] [place] [address] Referral ID Status Reason Start Date Expiration Date Visits Requ ested Visits Authorized [id number] Closed 02/06/2019 02/06/2020 1 1 Encounter Details Date Type Department Care Team Description 02/06/2019 Ancillary Orders [facility] Antolin Montana, Hip pain, right Ultrasound [address] [facility] [address] [place], [place] [phone] Social History Tobacco Use Types Packs/Day Years [...] Visit Family Medicine Kevin Miranda MD [address] [place], [place] [address] (Wo rk) documented as of this encounter Results X-ray Hip [...] ation. Dictated: 02/06/2019 3:47 PM Report ID: [id number] Report signed in external system at 01/15 15:47 Reported By: Srinivasan Olson M.D. (resident ) ([id number]) Signed By: Jacoby Cunningham M.D. (HE ) Narrative 02/06/2019 3:47 PM EST RESPONSIBLE ONLINE MERCHANDISING SPECIALIST: Jacoby Cunningham M.D. EXAMINATION: XR HIP [...] might be different from the original. RESPONSIBLE ONLINE MERCHANDISING SPECIALIST: Jacoby Cunningham M.D. EXAMINATION: XR HIP [...] ation. Dictated: 02/06/2019 3:47 PM Report ID: [id number] Report signed in external system at 01/15 15:47 Reported By: Srinivasan Olson M.D. (resident ) ([id number]) Signed By: Jacoby Cunningham M.D. ([facility] ) Antolin Montana MD IMG XR PROCEDURES documented in this encounter Visit Diagnoses Diagnosis Hip pain, right Pain in joint, pelvic region and thigh Hip pain, right Pain in joint, pelvic region and thigh documented in this encounter Care Teams Supervisor Looping Relationship Specialty Start Date End Date Kevin Miranda MD PCP - General Family Medicine 11/20/[address] [place] [address] documented as of this encounter
--- OUTSIDE RECORDS SUMMARY | 2021-11-06 15:54 | XMS_ITS | Encounter Summary ---
:1945 Author Organization [facility] Address 330 [facility], [address] [place] [address] Care Team Providers Name Role Phone Laurie Elias NP Primary Care Provider Unavailable Reason for Referral Diagnostic Imaging (Routine) - Closed Specialty Diagnoses / Procedures Referred By Contact Refer red To Contact Radiology Diagnoses Diverticulitis Kevin Miranda MD Procedures CT Abdomen Pelvis with Contrast [address] [place] [address] Referral ID Status Reason Start Date Expiration Date Visits Requ ested Visits Authorized [id number] Closed 04/12/2019 04/11/2020 1 1 Encounter Details Date Type Department Care Team Description 04/12/2019 Office Visit Kevin Trimble, Acute c ystitis with hematuria (Primary Dx); Practice Diverticulitis [facility]0 [place] [address] [place] [address] [place], [place] [phone] Social History Tobacco Use Types Packs/Day Years [...] culture ordered for follow up today. Kevin Miranda MD documented in this encounter Plan of Treatment Upcoming Encounters Date Type Specialty Care Team Description 11/30/2021 Office Visit Family Medicine Kevin Miranda MD [address] [place] [address] (Wo rk) documented as of [...] 04/12/2019. Dictated: 04/12/2019 8:31 PM Report ID: [id number] Report signed in external system at 04/12 20:31 Reported By: Reggie Padilla Jr., M.D. ( [facility]) Signed By: Reggie Padilla Jr., M.D. ([facility]) Narrative 04/12/2019 8:31 PM EST RESPONSIBLE SUPPORT ARCHITECT: Reggie Padilla Jr., M.D. EXAMINATION: CT ABDOMEN [...] might be different from the original. RESPONSIBLE SUPPORT ARCHITECT: Reggie Padilla Jr., M.D. EXAMINATION: CT ABDOMEN [...] 04/12/2019. Dictated: 04/12/2019 8:31 PM Report ID: [id number] Report signed in external system at 04/12 20:31 Reported By: Reggie Padilla Jr., M.D. ( [facility]) Signed By: Reggie Padilla Jr., M.D. ([facility] Kevin Miranda MD IMG CT PROCEDURES (ABNORMAL) Comprehensive metabolic panel (04/12/2019 2:31 PM EST) [facility] Method Time Signature Sodium 136 (L) 137 - 145 04/12/2019 [place] mmol/L 2:56 PM [facility] Potassium 4.4 3.5 - 5.1 04/12/2019 [place] mmol/L 2:56 PM [facility] CHLORIDE 99 98 - 107 04/12/2019 [place] mmol/L 2:56 PM [facility] CARBON DIOXIDE, 29.0 22.0 - 04/12/2019 [place] TOTAL 30.0 2:56 PM [facility] mmol/L LABORATORY ANION GAP 8.0 6 - 14 04/12/2019 [place] 2:56 PM [facility] GLUCOSE 109 (H) 70 - 99 04/12/2019 [facility] mg/dL 2:56 PM [facility] CALCIUM 9.5 8.3 - 10.3 04/12/2019 [facility] mg/dL 2:56 PM [facility] CREATININE 0.6 0.5 - 1.0 04/12/2019 [place] mg/dL 2:56 PM [facility] ALBUMIN 3.8 3.5 - 5.0 04/12/2019 [facility] g/dL 2:56 PM [facility] Bilirubin Total 0.4 0.2 - 1.3 04/12/2019 [place] mg/dL 2:56 PM [facility] BILIRUBIN DIRECT 0.3 0.0 - 0.4 04/12/2019 [place] mg/dL 2:56 PM [facility] ALKALINE 104 38 - 126 04/12/2019 [place] PHOSPHATASE U/L 2:56 PM [facility] AST (SGOT) 39 15 - 46 04/12/2019 [place] U/L 2:56 PM [facility] ALT 45 13 - 69 04/12/2019 [place] U/L 2:56 PM [facility] GFR >60 04/12/2019 [place] 2:56 PM [facility] PROTEIN TOTAL 6.7 6.3 - 8.2 04/12/2019 [place] g/dL 2:56 PM [facility] BUN 12 7 - 17 04/12/2019 [place] mg/dL 2:56 PM [facility] Specimen Anatomical Collection Method / Collection Time Recei nancy Time (Source) Location / Volume Laterality Blood Venous blood / Venipuncture / 04/12/2019 2:31 04/12/19 20 2:31 Unknown Unknown PM [facility] EST Kevni Miranda MD LAB BLOOD ORDERABLES Performing Organization Address City/State/ZIP Code Phon e Number [facility] [address] [place] [address] LABORATORY CBC (04/12/2019 2:31 PM EST) P athologist Signature WBC 7.00 4.00 to 04/12/2019 [place] 11.00 x 2:42 PM [facility] 10*3u/L LABORATORY 10*3/uL nRBC 0 0 - 0 /100 04/12/2019 [place] WBCs 2:42 PM [facility] RBC 4.28 3.90 to 04/12/2019 [place] 5.20 x 2:42 PM [facility] 10*6/uL LABORATORY 10*6/uL HGB 13.6 12.0 to 04/12/2019 [place] 16.0 g/dL 2:42 PM [facility] g/dL LABORATORY HCT 40.0 36.0% to 04/12/2019 [place] 46.0% % 2:42 PM [facility] MCV 93.5 80.0 to 04/12/2019 [place] 100.0 fL fL 2:42 PM [facility] MCH 31.8 26.0 - 33.0 04/12/2019 [place] pg 2:42 PM [facility] MCHC 34.0 31.0 to 04/12/2019 [place] 37.0 g/dL 2:42 PM [facility] g/dL LABORATORY PLT 295 150 to 350 04/12/2019 [place] x 10*3u/l 2:42 PM [facility] 10*3u/L LABORATORY RDW-CV 13.0 11.5 - 14.5 04/12/2019 [place] % 2:42 PM [facility] Specimen Anatomical Collection Method / Collection Time Recei nancy Time (Source) Location / Volume Laterality Blood Venous blood / Venipuncture / 04/12/2019 2:31 04/12/19 20 2:31 Unknown Unknown PM EST PM EST Kevin Miranda MD LAB BLOOD ORDERABLES Performing Organization Address City/State/ZIP Code Phon e Number [facility] [address] [address] LABORATORY (ABNORMAL) Urine culture (04/12/2019 1:53 PM EST) Analysis Performed At [facility] Time Signature Urine Culture (A) [facility] Comment: ??CULTURE, URINE, ROUTINE ?Micro Number: ?[id number] ??Test Status: ? Final ??Specimen Source: ?? [...] Organization Address City/State/ZIP Code Phon e Number [place] [address] [address] [place] [address], [address] [facility] [address] [place] [address], [facility] [address] [address] Diagnost POCT urinalysis dipstick (04/12/2019 1:39 PM EST) [facility] gist Method Time Signature Color, UA [...] hemorrhage) documented in this encounter Care Teams Vessel Scrapper Relationship Specialty Start Date End Date Laurie Elias NP PCP - General Family Medicine 03/02/1811/19/19 documented as of this encounter
--- OUTSIDE RECORDS SUMMARY | 2021-11-06 15:54 | XMS_ITS | Encounter Summary ---
:1945 Author Organization [facility] Address 330 [facility], [address] [place] [address] Care Team Providers Name Role Phone Laurie Elias BSA/AML COMPLIANCE OFFICER Primary Care Provider Unavailable Encounter Details Date Type Department Care Team Description 10/15/2019 Refill [facility] actice Kevin Miranda MD [address] [place] [address] [place] [address] [phone] (Wo rk) Social History Tobacco Use Types [...] Visit Family Medicine Kevin Miranda MD [address] [place] [address] (Wo rk) documented as of this encounter Visit Diagnoses Not on filedocumented in this encounter Care Teams Forensic Specialist Relationship Specialty Start Date End Date Laurie Elias, ANN PCP - General Family Medicine 03/02/1811/19/19 documented as of this encounter
--- OUTSIDE RECORDS SUMMARY | 2021-11-06 15:54 | XMS_ITS | Encounter Summary ---
:1945 Author Organization [facility] Address [address] [facility], [address] [place] [address] Care Team Providers Name Role Phone Laurie Elias NP Primary Care Provider Unavailable Encounter Details Date Type Department Care Team Description 12/06/2018 Hospital Encounter [place] Po Astudillo am, MD Gastroenterology/Endosco [address] [facility], [address] [facility] eet [place], [place] [address] [place] [address] [phone] Social History Tobacco Use Types Packs/Day [...] INSTRUCTIONS: Please call Dr. Astudillo office at [phone] if you develop the following symptoms in [...] cecum, confirmed by appendiceal orifice, cecal strap (lone pine's foot), and ileocecal valve. The scope was withdrawn and the mucosa was carefully examined. The quality of the preparation was good. The views were good. The patient's toleration of the procedure was good. Scope(s)/SN:[id number] Time Started: 09:32 Cecum Time: 09:42 Time Ended: 09:47 Estimated Blood Loss: None. Findings: There was evidence of severe diverticulosis in the descending colon. Otherwise, the colon appeared to be normal. Complications: There were no immediate complications. Impression: Severe diverticulosis found in the descending colon. No sign of active diverticulitis Recommendations: Colonoscopy recommended in 10 years. Procedure Codes: 81933 - colonoscopy G0500 - moderate sedation ICD-9 [...] Office Visit Family Medicine Kevin Miranda MD [address] [place] [address] (Wo rk) documented as of [...] cecum, confirmed by appendiceal orifice, cecal strap (lone pine's foot), and ileocecal valve. The scope was withdrawn and the mucosa w as carefully examined. The quality of the preparation was good. The views were good. The patient's toleration of the procedure wa s good. Scope(s)/SN:[id number] Time Star lesly: 09:32 Cecum Time: 09:42 Time Ended: :47 Estimated Blood Loss: None. Findings: There was evidence of severe d iverticulosis in the descending colon. Otherwise, the colon a ppeared to be normal. Complications: There were no immediate c omplications. Impression: Severe diverticulosis found in the descending colon. No sign of active diverticulitis Recommendations: Colonoscopy recommended in 10 years. Procedure Codes: 79164 - colonoscopy G05 00 - moderate sedation [...] Pre-op documented in this encounter Care Teams Police Records Clerk Relationship Specialty Start Date End Date Laurie Elias NP PCP - General Family Medicine 03/02/1811/19/19 documented as of this encounter
--- OUTSIDE RECORDS SUMMARY | 2021-11-06 15:54 | XMS_ITS | Encounter Summary ---
:1945 Author Organization [facility] Address 330 [facility], [address] [place] [address] Care Team Providers Name Role Phone Laurie Elias NP Primary Care Provider Unavailable Encounter Details Date Type Department Care Team Description 12/06/2018 Anesthesia Event Josephine Johny Jaramillo MD Gastroenterology/Endoscop [address] [facility] [address] [place] [address] [phone] Anesthesia Record Procedure Summary Procedure Name [...] Date: 12/06/18; 12/06/18923 by Cynth ia 12/06/18 1023 by Placement Time: 923; JANELL Delaney RN Catheter Size: 20 G; Orientation: Right; Location: Antecubital; Site Prep: Chlorhexidine; Inserted by: efraín; Insertion Attempts: 1; Patient Tolerance: Tolerated well; [...] Office Visit Family Medicine Kevin Miranda MD [facility] [place], [place] [address] (Wo rk) documented as [...] Pre-op documented in this encounter Care Teams Bookmobile Driver Relationship Specialty Start Date End Date Laurie Elias NP PCP - General Family Medicine 03/02/1811/19/19 documented as of this encounter
--- OUTSIDE RECORDS SUMMARY | 2021-11-06 15:54 | XMS_ITS | Encounter Summary ---
:1945 Author Organization [facility] Address 330 [facility], [address] [place] [address] Care Team Providers Name Role Phone Laurie Elias NP Primary Care Provider Unavailable Reason for Referral Specialty (Routine) - Closed Specialty Diagnoses / Procedures Referred By Contact Refer red To Contact Otolaryngology Diagnoses Tinnitus of right ear Kevin Miranda MD [address] [place] [address] Referral ID Status Reason Start Date Expiration Date Visits V isits Requested Authorized [id number] Closed Specialty 01/22/2019 01/22/2020 1 1 Services Required iagnostic Imaging (Routine) - Closed Specialty Diagnoses / Procedures Referred By Contact Refer red To Contact Diagnoses Dense breasts Kevin Miranda MD Procedures Ultrasound Breast Screening Automated Breast Volume Scanner (ABVS) Bilateral *screening ultrasounds only* [address] [place] [address] Referral ID Status Reason Start Date Expiration Date Visits Requ ested Visits Authorized [id number] Closed 01/22/2019 01/22/2020 1 1 iagnostic Imaging (Routine) - Closed Specialty Diagnoses / Procedures Referred By Contact Refer red To Contact Radiology Diagnoses Dense breasts Kevin Miranda MD Procedures MAMMOGRAPHY SCREENING MAMMOGRAM [address] [place] [address] Referral ID Status Reason Start Date Expiration Date Visits Requ ested Visits Authorized [id number] Closed 01/22/2019 01/22/2020 1 1 Reason for Visit Reason Comments Cerumen Impaction Encounter Details Date Type Department Care Team Description 01/22/2019 Office Visit Kevin Trimble Diverti culdavina (Primary Dx); Practice MD Tinnitus of right ear; [address] [place] [address] [place] Hiatal hernia with GERD; [place] [address] [place] Dense breasts [phone] Social History Tobacco Use Types Packs/Day Years [...] documented in this encounter Progress Notes Kevin Mrianda MD - 01/22/2019 9:30 AM EST Subjective [...] in my presence by the student and/or medical chief technician and verified by me. This note is [...] Office Visit Family Medicine Kevin Miranda MD [facility] [place], [place] [address] (Wo rk) Scheduled Orders [...] mammogram documented in this encounter Care Teams Information Systems Security Manager Relationship Specialty Start Date End Date Laurie Elias NP PCP - General Family Medicine 03/02/1811/19/19 documented as of this encounter
--- OUTSIDE RECORDS SUMMARY | 2021-11-06 15:54 | XMS_ITS | Encounter Summary ---
:1945 Author Organization [facility] Address [address] [facility], [address] [place] [address] Care Team Providers Name Role Phone Kevin [...] Office Visit Family Medicine Kevin Miranda MD [address] [place] [address] (Wo rk) documented as of this encounter Visit Diagnoses Not on filedocumented in this encounter Care Teams Billet Recorder Relationship Specialty Start Date End Date Kevin Miranda MD PCP - General Family Medicine 11/20/[address] [place] [address] documented as of this encounter
--- OUTSIDE RECORDS SUMMARY | 2021-11-06 15:54 | XMS_ITS | Encounter Summary ---
:1945 Author Organization [facility] Address 330 [facility], [address] [place] [address] Care Team Providers Name Role Phone Laurie Elias NP Primary Care Provider Unavailable Encounter Details Date Type Department Care Team Description 07/04/2019 Refill [facility] Pr Yessy Gee, [address] ELECTRONIC MUSICAL [place] [address] [place] [address] [place], [place] [address] (Wo rk) Social History Tobacco [...] Visit Family Medicine Kevin Miranda MD [address] [place], [place] [address] (Wo rk) documented as of this encounter Visit Diagnoses Not on filedocumented in this encounter Care Teams Rack Worker Relationship Specialty Start Date End Date Laurie Elias NP PCP - General Family Medicine 03/02/1811/19/19 documented as of this encounter
--- OUTSIDE RECORDS SUMMARY | 2021-11-06 15:54 | XMS_ITS | Encounter Summary ---
:1945 Author Organization [facility] Address 330 [facility], [address] [place] [address] Care Team Providers Name Role Phone Kevin Miranda MD Primary Care Provider Encounter Details Date Type Department Care Team Description 02/28/2019 Orders Only [facility] actice Provider, MD Harsh [address] [place] [address] [phone] Social History Tobacco Use Types Packs/Day Years [...] Visit Family Medicine Kevin Miranda MD [address] [place] [address] (Wo rk) documented as of this encounter Procedures Procedure Name Priority Date/Time Associated Diagnosis Comme nts MAMMOGRAPHY Routine 02/12/2019 documented in this encounter Results MAMMOGRAPHY (02/12/2019) Anatomical Region Laterality Modality Other Narrative This result has an attachment that is no t available. Historical Provider MD HEALTH MAINTENANCE documented in this encounter Visit Diagnoses Not on filedocumented in this encounter Care Teams Lead Php Developer Relationship Specialty Start Date End Date Kevin Miranda MD PCP - General Family Medicine 11/20/19 [address] [place] [address] documented as of this encounter
--- OUTSIDE RECORDS SUMMARY | 2021-11-06 15:54 | XMS_ITS | Encounter Summary ---
:1945 Author Organization [facility] Address 330 [facility], [address] [place] [address] Care Team Providers Name Role Phone Kevin Miranda MD Primary Care Provider Encounter Details Date Type Department Care Team Description 11/27/2019 Refill [facility] Pr actice Kevin Miranda MD [address] [place] [address] [place] [address] [phone] (Wo rk) Social History Tobacco Use Types [...] Office Visit Family Medicine Kevin Miranda MD [address] [place] [address] (Wo rk) documented as of this encounter Visit Diagnoses Not on filedocumented in this encounter Care Teams Service Superintendent Relationship Specialty Start Date End Date Kevin Miranda MD PCP - General Family Medicine 11/20/19 10[address] [place] [address] documented as of this encounter
--- OUTSIDE RECORDS SUMMARY | 2021-11-06 15:54 | XMS_ITS | Encounter Summary ---
:1945 Author Organization [facility] Address [address] [facility], [address] [place] [address] Care Team Providers Name Role Phone Laurie Elias NP Primary Care Provider Unavailable Reason for Referral Diagnostic Imaging (Routine) - Closed Specialty Diagnoses / Procedures Referred By Contact Refer red To Contact Radiology Diagnoses Diverticulitis Kevin Miranda MD Procedures CT Abdomen Pelvis with Contrast [address] [place] [address] Referral ID Status Reason Start Date Expiration Date Visits Requ ested Visits Authorized [id number] Closed 04/12/2019 04/11/2020 1 1 Reason for Visit Auth/Cert Specialty Diagnoses / Procedures Referred By Contact Refer red To Contact Diagnoses Pericolonic abscess Procedures n/a Referral ID Status Reason Start Date Expiration Date Visits Requ ested Visits Authorized [id number] 1 1 Encounter Details Date Type Department Care Team Description 04/12/2019 Hospital Encounter [facility] CT Kevin Ken MD Scan [address] [place] [address] [place] [address] [phone] Social History Tobacco Use Types Packs/Day Years [...] Visit Family Medicine Kevin Miranda MD [address] [place], [place] [address] (Wo rk) documented as [...] 04/12/2019. Dictated: 04/12/2019 8:31 PM Report ID: [id number] Report signed in external system at 04/12 20:31 Reported By: Reggie Padilla Jr., M.D. ( CUSG) Signed By: Reggie aPdilla Jr., M.D. (CU SG) Narrative 04/12/2019 8:31 PM EST RESPONSIBLE TRACK LAYER HEAD: Reggie Padilla Jr., M.D. EXAMINATION: CT ABDOMEN [...] might be different from the original. RESPONSIBLE TRACK LAYER HEAD: Reggie Padilla Jr., M.D. EXAMINATION: CT ABDOMEN [...] 04/12/2019. Dictated: 04/12/2019 8:31 PM Report ID: [id number] Report signed in external system at 04/12 20:31 Reported By: Reggie Padilla Jr., M.D. ( CUSG) Signed By: Reggie Padilla Jr., M.D. (CU SG) Kevin Miranda MD G CT PROCEDURES documented in this encounter Visit [...] dose documented in this encounter Care Teams Director Of Brand Marketing Relationship Specialty Start Date End Date Laurie Elias NP PCP - General Family Medicine 03/02/1811/19/19 documented as of this encounter
--- OUTSIDE RECORDS SUMMARY | 2021-11-06 15:54 | XMS_ITS | Encounter Summary ---
:1945 Author Organization [facility] Address 330 [facility], [address] [place] [address] Care Team Providers Name Role Phone Kevin Miranda MD Primary Care Provider Reason for Visit Auth/Cert Specialty Diagnoses / Procedures Referred By Contact Refer red To Contact Diagnoses Pericolonic abscess Procedures n/a Referral ID Status Reason Start Date Expiration Date Visits Requ ested Visits Authorized [id number] 1 1 Encounter Details Date Type Department Care Team Description 04/12/2019 Billing Encounter [facility] Main Lab Kevin Miranda MD 330 [facility] eet [address] [place] [address] [place], [place] [phone] (Wo raine) Social History Tobacco Use Types Packs/Day Years [...] Office Visit Family Medicine Kevin Miranda MD [address] [place] [address] (Wo raine) documented as of this encounter Visit Diagnoses Not on filedocumented in this encounter Care Teams Portable Trackman Relationship Specialty Start Date End Date Kevin Miranda MD PCP - General Family Medicine 11/20/19 [address] [facility] [place] [address] documented as of this encounter
--- OUTSIDE RECORDS SUMMARY | 2021-11-06 15:54 | XMS_ITS | Encounter Summary ---
:1945 Author Organization [facility] Address 330 [facility], [address] [place] [address] Care Team Providers Name Role Phone Laurie Elias PROBE OPERATOR Primary Care Provider Unavailable Encounter Details Date Type Department Care Team Description 12/22/2018 Scan Document - View Trini Gómez in Chart Practice PROBE OPERATOR [facility] [place] [address] Social History Tobacco Use Types Packs/Day Years [...] Office Visit Family Medicine Kevin Miranda MD [address] [place] [address] (Wo rk) documented as of this encounter Visit Diagnoses Not on filedocumented in this encounter Care Teams Door To Door Salesperson Relationship Specialty Start Date End Date Laurie Elias NP PCP - General Family Medicine 03/02/1811/19/19 documented as of this encounter
--- OUTSIDE RECORDS SUMMARY | 2021-11-06 15:54 | XMS_ITS | Encounter Summary ---
:1945 Author Organization [facility] Address 330 [facility], [address] [place] [address] Care Team Providers Name Role Phone Laurie Elias NP Primary Care Provider Unavailable Encounter Details Date Type Department Care Team Description 09/27/2019 Refill [facility] Pr Yessy Gee, [address] [place] [address] [place] [address] [place], [place] [address] (Wo rk) Social History Tobacco [...] Visit Family Medicine Kevin Miranda MD [address] [place], [place] [address] (Wo rk) documented as of this encounter Visit Diagnoses Not on filedocumented in this encounter Care Teams Mobile Therapist Relationship Specialty Start Date End Date Laurie Elias NP PCP - General Family Medicine 03/02/1811/19/19 documented as of this encounter
--- OUTSIDE RECORDS SUMMARY | 2021-11-06 15:54 | XMS_ITS | Encounter Summary ---
:1945 Author Organization [facility] Address 330 [facility], [address] [place] [address] Care Team Providers Name Role Phone Laurie Elias NICK SETTER Primary Care Provider Unavailable Encounter Details Date Type Department Care Team Description 05/02/2019 Scan Document - View Kevin Trimble, in Chart Practice [address] [place] [address] [place], [place] [phone] Social History Tobacco Use Types Packs/Day Years [...] Visit Family Medicine Kevin Miranda MD [address] [place] [address] (Wo rk) documented as of this encounter Visit Diagnoses Not on filedocumented in this encounter Care Teams Credit Card Control Clerk Relationship Specialty Start Date End Date Laurie Elias, ANN PCP - General Family Medicine 03/02/1811/19/19 documented as of this encounter
--- OUTSIDE RECORDS SUMMARY | 2021-11-06 15:54 | XMS_ITS | Encounter Summary ---
:1945 Author Organization [facility] Address 330 [facility], [address] [place] [address] Care Team Providers Name Role Phone Laurie Elias GUEST RELATIONS REPRESENTATIVE Primary Care Provider Unavailable Encounter Details Date Type Department Care Team Description 03/25/2019 Scan Document - View Trini Gómez in Chart Practice GUEST RELATIONS REPRESENTATIVE [facility] [place] [address] Social History Tobacco Use Types Packs/Day Years [...] Visit Family Medicine Kevin Miranda MD [address] [place] [address] (Wo rk) documented as of this encounter Visit Diagnoses Not on filedocumented in this encounter Care Teams Newspaper Subscription Solicitor Relationship Specialty Start Date End Date Laurie Elias NP PCP - General Family Medicine 03/02/1811/19/19 documented as of this encounter
--- OUTSIDE RECORDS SUMMARY | 2021-11-06 15:54 | XMS_ITS | Encounter Summary ---
:1945 Author Organization [facility] Address [address] [facility], [address] [place] [address] Care Team Providers Name Role Phone Laurie Elias MARINE RESOURCE ECONOMIST Primary Care Provider Unavailable Encounter Details Date [...] Office Visit Family Medicine Kevin Miranda MD [address] [place] [address] (Wo rk) documented as of this encounter Visit Diagnoses Not on filedocumented in this encounter Care Teams Broadcast Engineer Relationship Specialty Start Date End Date Laurie Elias NP PCP - General Family Medicine 03/02/1811/19/19 documented as of this encounter
--- OUTSIDE RECORDS SUMMARY | 2021-11-06 15:54 | XMS_ITS | Encounter Summary ---
:1945 Author Organization [facility] Address 330 [facility], [address] [place] [address] Care Team Providers Name Role Phone Laurie Elias SALES ACCOUNT EXECUTIVE Primary Care Provider Unavailable Encounter Details Date [...] Visit Family Medicine Kevin Miranda MD [address] [place] [address] (Wo rk) documented as of this encounter Visit Diagnoses Not on filedocumented in this encounter Care Teams Skates Operator Relationship Specialty Start Date End Date Laurie Elias NP PCP - General Family Medicine 03/02/1811/19/19 documented as of this encounter
--- OUTSIDE RECORDS SUMMARY | 2021-11-06 15:54 | XMS_ITS | Encounter Summary ---
:1945 Author Organization [facility] Address 330 [facility], [address] [place] [address] Care Team Providers Name Role Phone Laurie Elias HOME RESTORATION SERVICE CLEANER Primary Care Provider Unavailable Encounter Details Date [...] Office Visit Family Medicine Kevin Miranda MD [address] [place] [address] (Wo rk) documented as of this encounter Visit Diagnoses Not on filedocumented in this encounter Care Teams Follow Up Clerk Relationship Specialty Start Date End Date Laurie Elias NP PCP - General Family Medicine 03/02/1811/19/19 documented as of this encounter
--- OUTSIDE RECORDS SUMMARY | 2021-11-06 15:54 | XMS_ITS | Encounter Summary ---
:1945 Author Organization [facility] Address 330 [facility], [address] [place] [address] Care Team Providers Name Role Phone Laurie Elias CONTRACTS INTERN Primary Care Provider Unavailable Encounter Details Date Type Department Care Team Description 03/06/2019 Orders Only [facility] actManpreet Ferrer [place] [address] [place] [address] Social History Tobacco Use Types Packs/Day Years [...] Visit Family Medicine Kevin Miranda MD [address] [place], [place] [address] (Wo rk) documented as of this encounter Visit Diagnoses Not on filedocumented in this encounter Care Teams Splitter Hand Relationship Specialty Start Date End Date Laurie Elias NP PCP - General Family Medicine 03/02/1811/19/19 documented as of this encounter
--- OUTSIDE RECORDS SUMMARY | 2021-11-06 15:54 | XMS_ITS | Encounter Summary ---
:1945 Author Organization [facility] Address 330 [facility], [address] [place] [address] Care Team Providers Name Role Phone Laurie Elias NP Primary Care Provider Unavailable Reason for Visit Reason Comments Fever Encounter Details Date Type Department Care Team Description 04/09/2019 Office Visit Kevin Trimble, Viet c ystitis with hematuria (Primary Dx); Practice Diverticulitis [facility] [address] [place] [address] [place], [place] [phone] Social History Tobacco Use Types Packs/Day Years [...] performed in my presence by the medical management trainer and verified by me. This note is an accurate record of the services performed and decisions made by Kevin Miranda MD. documented in this encounter Plan of Treatment Upcoming Encounters Date Type Specialty Care Team Description 11/30/2021 Office Visit Family Medicine Kevin Miranda MD [address] [place], [place] [address] (Wo rk) documented as [...] (04/09/2019 4:48 PM EST) Analysis Performed At [facility] Time Signature Urine Culture (A) [facility] Comment: ??CULTURE, URINE, ROUTINE ?Micro Number: ?[id number] ??Test Status: ? Final ??Specimen Source: ?? [...] Organization Address City/State/ZIP Code Phon e Number [place] [employer] [address] [phone] [place] [address] [employer] [address] [place], [place] [address] [address] [id number] Diagnost POCT Urinalysis dipstick (04/09/2019 4:14 PM EST) [facility] gist Method Time Signature Color, UA [...] hemorrhage) documented in this encounter Care Teams Assistant Basketball Coach Relationship Specialty Start Date End Date Laurie Elias NP PCP - General Family Medicine 03/02/1811/19/19 documented as of this encounter
--- OUTSIDE RECORDS SUMMARY | 2021-11-06 15:54 | XMS_ITS | Encounter Summary ---
:1945 Author Organization [facility] Address 330 [facility], [address] [place] [address] Care Team Providers Name Role Phone Laurie Elias ABSENCE MANAGEMENT CONSULTANT Primary Care Provider Unavailable Encounter Details Date Type Department Care Team Description 04/13/2019 Travel Social History Tobacco Use Types Packs/Day [...] Office Visit Family Medicine Kevin Miranda MD [address] [place] [address] (Wo rk) documented as of this encounter Visit Diagnoses Not on filedocumented in this encounter Care Teams Imaging Engineer Relationship Specialty Start Date End Date Laurie Elias NP PCP - General Family Medicine 03/02/1811/19/19 documented as of this encounter
--- OUTSIDE RECORDS SUMMARY | 2021-11-06 15:54 | XMS_ITS | Encounter Summary ---
:1945 Author Organization [facility] Address 330 [facility], [address] [place] [address] Care Team Providers Name Role Phone Jada Laurie ANN Primary Care Provider Unavailable Encounter Details Date Type Department Care Team Description 04/13/2019 Telephone [facility] Kevin Crowe MD [facility] [address] [place], [place] [address] [place] [address] [phone] (Wo rk) Social History Tobacco Use Types [...] AM at home). She is referred to [facility] ED for treatment and she agrees. ED called and case reported prior to her arrival. documented in this encounter Plan of Treatment Upcoming Encounters Date Type Specialty Care Team Description 11/30/2021 Office Visit Family Medicine Kevin Miranda MD [address] [facility] [place] [address] (Wo rk) documented as of this encounter Visit Diagnoses Not on filedocumented in this encounter Care Teams Configuration Specialist Relationship Specialty Start Date End Date Laurie Elias NP PCP - General Family Medicine 03/02/1811/19/19 documented as of this encounter
--- OUTSIDE RECORDS SUMMARY | 2021-11-06 15:54 | XMS_ITS | Encounter Summary ---
:1945 Author Organization [facility] Address 330 [facility], [address] [place] [address] Care Team Providers Name Role Phone Kevin Miranda MD Primary Care Provider Encounter Details Date Type Department Care Team Description 12/06/2018 Procedure [facility] [place]End oscopy [address] [place] [address] [phone] Social History Tobacco Use Types [...] Office Visit Family Medicine Kevin Miranda MD [address] [place] [address] (Wo rk) documented as of this encounter Visit Diagnoses Not on filedocumented in this encounter Care Teams Hydraulic Engineer Relationship Specialty Start Date End Date Kevin Miranda MD PCP - General Family Medicine 11/20/[address] [place] [address] documented as of this encounter
--- OUTSIDE RECORDS SUMMARY | 2021-11-06 15:54 | XMS_ITS | Encounter Summary ---
:1945 Author Organization [facility] Address 330 [facility], [address] [place] [address] Care Team Providers Name Role Phone Laurie Elias WALL TAPER Primary Care Provider Unavailable Encounter Details Date [...] Office Visit Family Medicine Kevin Miranda MD [address] [place] [address] (Wo rk) documented as of this encounter Visit Diagnoses Not on filedocumented in this encounter Care Teams Coordinating Producer Relationship Specialty Start Date End Date Laurie Elias NP PCP - General Family Medicine 03/02/1811/19/19 documented as of this encounter
--- OUTSIDE RECORDS SUMMARY | 2021-11-06 15:54 | XMS_ITS | Encounter Summary ---
:1945 Author Organization [facility] Address 330 [facility], [address] [place] [address] Care Team Providers Name Role Phone Laurie Elias SENIOR ELECTRICAL DESIGN ENGINEER Primary Care Provider Unavailable Encounter Details Date Type Department Care Team Description 02/06/2019 Scan Document - View [facility] Paula Miranda, in Chart Practice [address] [place] [address] [place], [place] [phone] Social History Tobacco Use Types Packs/Day Years [...] Visit Family Medicine Kevin Miranda MD [address] [place] [address] (Wo rk) documented as of this encounter Visit Diagnoses Not on filedocumented in this encounter Care Teams Tool Sharpener Relationship Specialty Start Date End Date Laurie Elias NP PCP - General Family Medicine 03/02/1811/19/19 documented as of this encounter
--- OUTSIDE RECORDS SUMMARY | 2021-11-06 15:55 | XMS_ITS | Encounter Summary ---
:1945 Author Organization [facility] Address 330 [facility], [id number] [place] [address] Care Team Providers Name Role Phone Laurie Elias NP Primary Care Provider Unavailable Encounter Details Date Type Department Care Team Description 03/24/2018 Telephone [facility] Rola phillips PA Consultants 330 [facility], [address] [facility] [address], [address] [place], [place] [address] [place] [address] [phone] (Wo rk) Social History Tobacco Use Types Packs/Day Years Used Date Former Smoker Smokeless Tobacco: Never Used Alcohol Use Standard Drinks/Week Comments Defer 0 (1 standard drink = 0.6 oz pure alcoho l) Sex Assigned at Date Recorded Female 04/12/2019 2:19 PM EST documented as of this encounter Miscellaneous Notes Telephone Encounter - MONAE Henson - 03/24/2018 3:58 PM EST Abdominal pain resolved, bowels not totally back to regular but improving. She is still having persistent low grade temps o/n with sweats. No other obvious sx. Perhaps residual from diverticulitis, butseems longer lasting than would be expected. Recommended calling PCP to discuss workup of other possible infectious processes since not obviously GI related at this point. She will call PCP today. Rola Parkinson PA-C documented in this encounter Plan of Treatment Upcoming Encounters Date Type Specialty Care Team Description 11/30/2021 Office Visit Family Medicine Kevin Miranda MD [address] [place], [place] [address] (Wo rk) documented as of this encounter Visit Diagnoses Not on filedocumented in this encounter Care Teams Director Retirement Relationship Specialty Start Date End Date Laurie Elias NP PCP - General Family Medicine 03/02/1811/19/19 documented as of this encounter
--- OUTSIDE RECORDS SUMMARY | 2021-11-06 15:55 | XMS_ITS | Encounter Summary ---
:1945 Author Organization [facility] Address 330 [facility], [address] [place] [address] Care Team Providers Name Role Phone Laurie Elias TAFE LECTURER Primary Care Provider Unavailable Encounter Details Date Type Department Care Team Description 04/05/2018 Travel Social History Tobacco Use Types Packs/Day [...] Office Visit Family Medicine Kevin Miranda MD [address] [place] [address] (Wo rk) documented as of this encounter Visit Diagnoses Not on filedocumented in this encounter Care Teams Medical Aides Teacher Relationship Specialty Start Date End Date Laurie Elias NP PCP - General Family Medicine 03/02/1811/19/19 documented as of this encounter
--- OUTSIDE RECORDS SUMMARY | 2021-11-06 15:55 | XMS_ITS | Encounter Summary ---
:1945 Author Organization [facility] Address 330 [facility], [address] [place] [address] Care Team Providers Name Role Phone JadaHeatherLaurie RETURNED GOODS SORTER Primary Care Provider Unavailable Encounter Details Date Type Department Care Team Description 04/05/2018 Rehab [facility] Physical Se lázaro Jason MD [address] [place] [address] Chronic low back pain, Therapy Pricila Curry, PT unspecified back pain [address] [facility], [facility], with [address] [place] [address] unspecified (Primary Dx) [phone] Social History Tobacco Use Types Packs/Day Years Used Date Former Smoker Smokeless Tobacco: Never Used Alcohol Use Standard Drinks/Week Comments Defer 0 (1 standard drink = 0.6 oz pure alcoho l) Sex Assigned at Date Recorded Female 04/12/2019 2:19 PM EST documented as of this encounter Progress Notes Pricila Curry, PT - 04/05/2018 1:30 PM EST Rehabilitation Services Physical Therapy [address] [facility], [address] [facility] [address] PROGRESS NOTE visit 5 [place] [...] pain improved). Pt seen by PT at [facility] for R hip pain. Started doing side lying hip abd with 5 lb. Developed more pain (? Overdid her ex). + R sided groin pain. CC is weakness B hips. Referred to PT for consult. Will f/u with MD after completion of PT. Seen by ortho at [facility]-x-rays done, advised to strengthen/stretch R [...] lb) Hamstring stretch R (IR/ER) Bridge with march, bridge on green ball Wall sit (with [...] Office Visit Family Medicine Kevin Miranda MD [facility] [place], [place] [address] (Wo rk) documented as of this encounter Visit Diagnoses Diagnosis Chronic low back pain, unspecified back pain laterality, with sciatica presence unspecified - Primary documented in this encounter Care Teams Ballet Teacher Relationship Specialty Start Date End Date Laurie Elias NP PCP - General Family Medicine 03/02/1811/19/19 documented as of this encounter
--- OUTSIDE RECORDS SUMMARY | 2021-11-06 15:55 | XMS_ITS | Encounter Summary ---
:1945 Author Organization [facility] Address 330 [facility], [address] [place] [address] Care Team Providers Name Role Phone Laurie Elias NP Primary Care Provider Unavailable Encounter Details Date Type Department Care Team Description 03/09/2018 Office Visit [place] [facility], Diverticulitis large Gastrointestinal MD [place] intestine w/o Consultants 330 [facility] perforation or abscess 300 [facility], w/o arturo zamudio (Primary [address] Dx) [place], [place] [id number] [place] [address] Social History Tobacco Use Types Packs/Day Years [...] were not included. 03/12/18 [place] Gorman M.D. churn operator margarine, [facility] Chief, Gastroenterology [facility] [address] [place] [address] FAX [phone] Email: [email or web address] 03/12/18 Re: [id number] Molly Rios Referring physician: Laurie Elias, ANN [address] [facility] [address] Molly Rios is a 73 y.o. female [...] Office Visit Family Medicine Kevin Miranda MD [facility] [place], [place] [address] (Wo rk) documented as of this encounter Visit Diagnoses Diagnosis Diverticulitis large intestine w/o perfo ration or abscess w/o bleeding - Primary documented in this encounter Care Teams Continuous Pillowcase Cutter Relationship Specialty Start Date End Date Laurie Elias NP PCP - General Family Medicine 03/02/1811/19/19 documented as of this encounter
--- OUTSIDE RECORDS SUMMARY | 2021-11-06 15:55 | XMS_ITS | Encounter Summary ---
:1945 Author Organization [facility] Address 330 [facility], [address] [place] [address] Care Team Providers Name Role Phone Laurie Elias INSTRUCTIONAL INTERVENTIONIST Primary Care Provider Unavailable Encounter Details Date [...] Visit Family Medicine Kevin Miranda MD [address] [place] [address] (Wo rk) documented as of this encounter Visit Diagnoses Not on filedocumented in this encounter Care Teams Caustic Loader Relationship Specialty Start Date End Date Laurie Elias NP PCP - General Family Medicine 03/02/1811/19/19 documented as of this encounter
--- OUTSIDE RECORDS SUMMARY | 2021-11-06 15:55 | XMS_ITS | Encounter Summary ---
:1945 Author Organization [facility] Address 330 [facility], [address] [place] [address] Care Team Providers Name Role Phone Laurie Elias EMAIL DEPLOYMENT SPECIALIST Primary Care Provider Unavailable Encounter Details Date [...] Visit Family Medicine Kevin Miranda MD [address] [place] [address] (Wo rk) documented as of this encounter Visit Diagnoses Not on filedocumented in this encounter Care Teams Fire Operations Forester Relationship Specialty Start Date End Date Laurie Elias NP PCP - General Family Medicine 03/02/1811/19/19 documented as of this encounter
--- OUTSIDE RECORDS SUMMARY | 2021-11-06 15:55 | XMS_ITS | Encounter Summary ---
:1945 Author Organization [facility] Address 330 [facility], [address] [place] [address] Care Team Providers Name Role Phone Kevin Miranda MD Primary Care Provider Encounter Details Date Type Department Care Team Description 04/10/2018 Telephone [facility] Laurie Brown, ANN [address] [place] [address] Social History Tobacco Use Types Packs/Day Years [...] Office Visit Family Medicine Kevin Miranda MD [address] [place] [address] (Wo rk) documented as of this encounter Visit Diagnoses Not on filedocumented in this encounter Care Teams Assistant Project Engineer Relationship Specialty Start Date End Date Kevin Miranda MD PCP - General Family Medicine 11/20/[address] [place] [address] documented as of this encounter
--- OUTSIDE RECORDS SUMMARY | 2021-11-06 15:55 | XMS_ITS | Encounter Summary ---
:1945 Author Organization [facility] Address 330 [facility], [address] [place] [address] Care Team Providers Name Role Phone Laurie Elias PREPRESS OPERATOR Primary Care Provider Unavailable Encounter Details Date Type Department Care Team Description 04/06/2018 Scan Document - View Trini Gómez in Chart Practice PREPRESS OPERATOR [facility] [place] [address] Social History Tobacco Use Types Packs/Day Years [...] Office Visit Family Medicine Kevin Miranda MD [address] [place] [address] (Wo rk) documented as of this encounter Visit Diagnoses Not on filedocumented in this encounter Care Teams Roll Cutting Operator Relationship Specialty Start Date End Date Laurie Elias NP PCP - General Family Medicine 03/02/1811/19/19 documented as of this encounter
--- OUTSIDE RECORDS SUMMARY | 2021-11-06 15:55 | XMS_ITS | Encounter Summary ---
:1945 Author Organization [facility] Address 330 [facility], [address] [place] [address] Care Team Providers Name Role Phone Kevin Miranda MD Primary Care Provider Reason for Visit Reason Comments Med Refill Encounter Details Date Type Department Care Team Description 09/05/2018 Refill [facility] Laurie Brown, SR TECHNICAL SALES CONSULTANT [facility] [place] [address] Social History Tobacco Use Types Packs/Day Years [...] Visit Family Medicine Kevin Miranda MD [address] [place] [address] (Wo rk) documented as of this encounter Visit Diagnoses Not on filedocumented in this encounter Care Teams Golf Club Repairer Relationship Specialty Start Date End Date Kevin Miranda MD PCP - General Family Medicine 11/20/[address] [place] [address] documented as of this encounter
--- OUTSIDE RECORDS SUMMARY | 2021-11-06 15:55 | XMS_ITS | Encounter Summary ---
:1945 Author Organization [facility] Address 330 [facility], [address] [place] [address] Care Team Providers Name Role Phone Laurie Elias NP Primary Care Provider Unavailable Reason for Referral Diagnostic Imaging (Routine) - Closed Specialty Diagnoses / Procedures Referred By Contact Refer red To Contact Radiology Diagnoses Diverticulitis Laurie Elias NP Procedures CT Abdomen Pelvis with Contrast [address] [place] [address] Referral ID Status Reason Start Date Expiration Date Visits Requ ested Visits Authorized [id number] Closed 04/09/2018 04/09/2019 1 1 Encounter Details Date Type Department Care Team Description 04/07/2018 Office Visit Kaushik Elias, Diverticul itis (Primary Dx); Practice ANN Sullivan Vitamin D deficiency [address] [place] [phone] Social History Tobacco Use Types Packs/Day Years [...] documented in this encounter Progress Notes Laurie Elias NP - 04/07/2018 11:30 AM EST Subjective Patient [...] pain. Discussed case with Dr. Gorman at [facility], who recommended repeating CT to determine [...] Visit Family Medicine Kevin Miranda MD [address] [place], [place] [address] (Wo rk) Scheduled Orders [...] Differential and Platelets) (04/07/2018 1:28 PM EST) [facility] Method Time Signature White Blood 10.3 3.8 - [facility] Count 10.8 [facility]/ [facility] Red Blood Count 4.72 3.80 - [facility] ics 5.10 [place] [facility] Hemoglobin 14.5 11.7 - [facility] 15.5 g/dL [facility] Hematocrit 42.9 35.0 - [facility] 45.0 % [facility] MCV 90.9 80.0 - [facility] 100.0 fL [facility] MCH 30.7 27.0 - [facility] 33.0 pg [facility] MCHC 33.8 32.0 - [facility] 36.0 g/dL [facility] MRDW 12.7 11.0 - [facility] 15.0 % [facility] Platelet count 398 140 - 400 [facility] cs [place]/ [place] [facility] MPV 10.0 7.5 - [facility] 12.5 fL [place] [facility] Absolute 7,189 1,500 - [facility] Neutrophil Count 7,800 [place] cells/[facility]L [facility] Lymphosytes 1,978 850 - [facility] absolute 3,900 [place] cells/[facility]L [facility] Absolute 834 200 - 950 [facility] Monocyte count cells/uL [place] [facility] Absolute 175 15 - 500 [facility] Eosinophil count cells/uL [facility] Lymphocyte 124 0 - 200 [facility] cells/uL [place] [facility] Neutrophils 69.8 % [facility] Lymphocyte 19.2 % [facility] Monocytes 8.1 % [facility] Eosinophil 1.7 % [facility] Basophil 1.2 % [facility] Specimen Anatomical Collection Method Collection Time Receive d Time (Source) Location / / Volume Laterality 04/07/2018 1:28 PM 9 1:29 EST PM EST Laurie Elias NP LAB BLOOD ORDERABLES Performing Organization Address City/State/ZIP Code Phon e Number [employer] [address] [address] [place] [address], [address] [facility] [address] [place] [address] [address] [id number] Diagnost Vitamin D 1,25 dihydroxy (04/07/2018 1:28 PM EST) P athologist Signature Vitamin 62 18 - 72 [facility] 1,25-OH,Total pg/mL Diagnostics/[facility] Vitamin D3, 62 pg/mL [facility] 1,25-OH [facility]ostics/[facility] Vitamin <8 pg/mL [facility] D2,1,25-OH [facility] Comment: Vitamin D3, 1,25(OH) indicates both endo genous production and supplementation. Vitamin D2, 1,25(OH)2 is an indicator of exogenous sources, hidalgo ch as diet or supplementation. ??Interpretation and th erapy are based on measurement of Vitamin D,1,25(OH)2, T otal. This test was developed and its analytic al performance characteristics have been de termined by [facility], [place], [place]. It has not been cleared or approved by [facility]. This assay has been validated pursuant to the CLIA regulations and is used for clinical pur poses. Specimen Anatomical Collection Method Collection Time Receive d Time (Source) Location / / Volume Laterality Blood Venous blood / 04/07/2018 1:28 PM 019 1:29 Unknown EST PM EST Laurie Elias NP LAB BLOOD ORDERABLES Performing Organization Address City/State/ZIP Code Phon e Number [employer] [facility], [address] [phone] [place] [address], [address] [employer] [address] [place] [address] Diagnostics/[facility] documented in this encounter Visit Diagnoses Diagnosis Diverticulitis - Primary Diverticulitis of colon (without mention of hemorrhage) Vitamin D deficiency documented in this encounter Care Teams Manager Enterprise Content Management Relationship Specialty Start Date End Date Laurie Elias NP PCP - General Family Medicine 03/02/1811/19/19 documented as of this encounter
--- OUTSIDE RECORDS SUMMARY | 2021-11-06 15:55 | XMS_ITS | Encounter Summary ---
:1945 Author Organization [facility] Address 330 [facility], [address] [place] [address] Care Team Providers Name Role Phone JadaLaurie velasquez SUPERVISOR NEWSPAPER DELIVERIES Primary Care Provider Unavailable Encounter Details Date Type Department Care Team Description 03/09/2018 Rehab [facility] Physical Se lázaro Jason MD [address] [place] [address] Chronic low back pain, Therapy Pricila Curry, PT unspecified back pain [address] [facility], [facility], with [address] [place] [address] unspecified (Primary Dx) [phone] Social History Tobacco Use Types Packs/Day Years Used Date Former Smoker Smokeless Tobacco: Never Used Alcohol Use Standard Drinks/Week Comments Defer 0 (1 standard drink = 0.6 oz pure alcoho l) Sex Assigned at Date Recorded Female 04/12/2019 2:19 PM EST documented as of this encounter Progress Notes Pricila Curry, PT - 03/09/2018 9:30 AM EST Rehabilitation Services Physical Therapy [address] [facility], [address] [facility] [address] EVALUATION Molly Rios is a [...] pain improved). Pt seen by PT at [facility] for R hip pain. Started doing side lying hip abd with 5 lb. Developed more pain (? Overdid her ex). + R sided groin pain. CC is weakness B hips. Referred to PT for consult. Will f/u with MD after completion of PT. Seen by ortho at [facility]-x-rays done, advised to strengthen/stretch R LE. 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 baseline ex program without increased pain Independent with pain management techniques Independent with home exercise program The patient will be seen by the PT/LINEMAN APPRENTICE with support from the Waste Collector 2 times/week for 12 weeks. Treatment Intervention: Therapeutic exercises Patient education Manual techniques Pricila Curry, PT 03/09/2018 9:34 AM I certify that Molly Schmidt Gabriel requires the stated services. Physician's Signature: Print Name: Date: Time: documented in this encounter Plan of Treatment Upcoming Encounters Date Type Specialty Care Team Description 11/30/2021 Office Visit Family Medicine Kevin Miranda MD [address] [facility] [place] [address] (Wo rk) documented as of this encounter Visit Diagnoses Diagnosis Chronic low back pain, unspecified back pain laterality, with sciatica presence unspecified - Primary documented in this encounter Care Teams Acid Bleacher Relationship Specialty Start Date End Date Laurie Elias NP PCP - General Family Medicine 03/02/1811/19/19 documented as of this encounter
--- OUTSIDE RECORDS SUMMARY | 2021-11-06 15:55 | XMS_ITS | Encounter Summary ---
:1945 Author Organization [facility] Address 330 [facility], [address] [place] [address] Care Team Providers Name Role Phone Laurie Elias NP Primary Care Provider Unavailable Encounter Details Date Type Department Care Team Description 03/04/2018 Telephone [facility] José Antonio ling MD Consultants 330 [facility], [address] [facility] [address], [facility] [address] [address] [phone] (Wo rk) Social History Tobacco Use Types [...] questions or concerns. Kerwin Shipley MD, MPH [facility] [phone] documented in this encounter Plan of Treatment Upcoming Encounters Date Type Specialty Care Team Description 11/30/2021 Office Visit Family Medicine Kevin Miranda MD [address] [place], [place] [address] (Wo rk) documented as of this encounter Visit Diagnoses Not on filedocumented in this encounter Care Teams Soaking Pit Operator Relationship Specialty Start Date End Date Laurie Elias NP PCP - General Family Medicine 03/02/1811/19/19 documented as of this encounter
--- OUTSIDE RECORDS SUMMARY | 2021-11-06 15:55 | XMS_ITS | Encounter Summary ---
:1945 Author Organization [facility] Address 330 [facility], [address] [place] [address] Care Team Providers Name Role Phone Laurie Elias NP Primary Care Provider Unavailable Encounter Details Date Type Department Care Team Description 03/09/2018 Orders Only [place] Sherif, Diverticulitis of Gastrointestinal MD [place] large intestine with Consultants 330 [facility] without 300 [facility], bleed ing (Primary Dx) [address] [place], [place] [address] [place] [address] Social History Tobacco Use Types Packs/Day Years [...] Office Visit Family Medicine Kevin Miranda MD [address] [place] [address] (Wo rk) documented as of this encounter Results (ABNORMAL) CBC (03/09/2018 4:47 PM EST) P athologist Signature WBC 11.27 (H) 4.50 to 03/09/2018 [place] 11.00 x 5:16 PM EST HOSPITAL 10*3u/L LABORATORY 10*3/uL nRBC 0 0 - 0 /100 03/09/2018 [place] WBCs 5:16 PM [facility] LABORATORY RBC 4.35 3.90 to 03/09/2018 [place] 5.03 x 5:16 PM [facility] 10*6/uL LABORATORY 10*6/uL HGB 13.6 12.0 to 03/09/2018 [place] 16.0 g/dL 5:16 PM [facility] g/dL LABORATORY HCT 40.3 36.0% to 03/09/2018 [place] 46.0% % 5:16 PM [facility]ORY MCV 92.6 80.0 to 03/09/2018 [place] 100.0 fL 5:16 PM [facility] fL LABORATORY MCH 31.3 26.0 - 03/09/2018 [place] 33.0 pg 5:16 [facility] LABORATORY MCHC 33.7 31.0 to 03/09/2018 [place] 37.0 g/dL 5:16 PM [facility] g/dL LABORATORY PLT 474 (H) 150 to 300 03/09/2018 [place] x 10*3u/L 5:16 [facility] 10*3u/L LABORATORY RDW-CV 13.2 11.5 - 03/09/2018 [place] 14.5 % 5:16 [facility] LABORATORY Specimen Anatomical Collection Method / Collection Time Recei nancy Time (Source) Location / Volume Laterality Blood Venous blood / Venipuncture / 03/09/2018 4:47 03/09/19 19 4:47 Unknown Unknown PM [facility] EST [place] Gorman MD LAB BLOOD ORDERABLES Performing Organization Address City/State/ZIP Code Phon e Number [facility] [address] [place] [address] LABORATORY documented in this encounter Visit Diagnoses Diagnosis Diverticulitis of large intestine with a bscess without bleeding - Primary documented in this encounter Care Teams Mine Laborer Relationship Specialty Start Date End Date Laurie Elias NP PCP - General Family Medicine 03/02/1811/19/19 documented as of this encounter
--- OUTSIDE RECORDS SUMMARY | 2021-11-06 15:55 | XMS_ITS | Encounter Summary ---
:1945 Author Organization [facility] Address [address] [facility], [address] [place] [address] Care Team Providers Name Role Phone JadaHeatherLaurie EXPRESSIVE MUSIC THERAPIST Primary Care Provider Unavailable Encounter Details Date Type Department Care Team Description 06/06/2018 Rehab [facility] Physical Se lázaro Jason MD [address] [place] [address] Chronic low back pain, Therapy Pricila Curry, PT unspecified back pain [address] [facility], [facility], with [address] [place] [address] unspecified (Primary Dx) [phone] Social History Tobacco Use Types Packs/Day Years Used Date Former Smoker Smokeless Tobacco: Never Used Alcohol Use Standard Drinks/Week Comments Defer 0 (1 standard drink = 0.6 oz pure alcoho l) Sex Assigned at Date Recorded Female 04/12/2019 2:19 PM EST documented as of this encounter Progress Notes Pricila Curry, PT - 06/06/2018 1:30 PM EDT Rehabilitation Services Physical Therapy [address] [facility], [address] [facility] [address] PROGRESS NOTE visit 10 [facility] Molly Rios is a 73 y.o. [...] Visit Family Medicine Kevin Miranda MD [address] [place] [address] (Wo rk) documented as of this encounter Visit Diagnoses Diagnosis Chronic low back pain, unspecified back pain laterality, with sciatica presence unspecified - Primary documented in this encounter Care Teams Classification Counselor Relationship Specialty Start Date End Date Laurie Elias NP PCP - General Family Medicine 03/02/1811/19/19 documented as of this encounter
--- OUTSIDE RECORDS SUMMARY | 2021-11-06 15:55 | XMS_ITS | Encounter Summary ---
:1945 Author Organization [facility] Address 330 [facility], [address] [place] [address] Care Team Providers Name Role Phone Laurie Elias DIRECTOR TRUST Primary Care Provider Unavailable Encounter Details Date Type Department Care Team Description 03/10/2018 Travel Social History Tobacco Use Types Packs/Day [...] Office Visit Family Medicine Kevin Miranda MD [address] [place] [address] (Wo rk) documented as of this encounter Visit Diagnoses Not on filedocumented in this encounter Care Teams Intensive Care Medicine Specialist Relationship Specialty Start Date End Date Laurie Elias NP PCP - General Family Medicine 03/02/1811/19/19 documented as of this encounter
--- OUTSIDE RECORDS SUMMARY | 2021-11-06 15:55 | XMS_ITS | Encounter Summary ---
:1945 Author Organization [facility] Address 330 [facility], [address] [place] [address] Care Team Providers Name Role Phone Laurie Elias NP Primary Care Provider Unavailable Encounter Details Date Type Department Care Team Description 03/07/2018 Telephone [facility] Laurie Brown NP [address] [place], [place] [id number] Social History Tobacco Use Types Packs/Day Years [...] Office Visit Family Medicine Kevin Miranda MD [facility]0 [place], [place] [address] (Wo rk) documented as of this encounter Visit Diagnoses Not on filedocumented in this encounter Care Teams Bead Builder Relationship Specialty Start Date End Date Laurie Elias NP PCP - General Family Medicine 03/02/1811/19/19 documented as of this encounter
--- OUTSIDE RECORDS SUMMARY | 2021-11-06 15:55 | XMS_ITS | Encounter Summary ---
:1945 Author Organization [facility] Address 330 [facility], [address] [place] [address] Care Team Providers Name Role Phone Laurie Elias EMPLOYEE BENEFITS ATTORNEY Primary Care Provider Unavailable Encounter Details Date [...] Office Visit Family Medicine Kevin Miranda MD [address] [place] [address] (Wo rk) documented as of this encounter Visit Diagnoses Not on filedocumented in this encounter Care Teams Cone Tender Relationship Specialty Start Date End Date Laurie Elias NP PCP - General Family Medicine 03/02/1811/19/19 documented as of this encounter
--- OUTSIDE RECORDS SUMMARY | 2021-11-06 15:55 | XMS_ITS | Encounter Summary ---
:1945 Author Organization [facility] Address 330 [facility], [address] [place] [address] Care Team Providers Name Role Phone Laurie Elias SOFTWARE INSTALLER Primary Care Provider Unavailable Encounter Details Date [...] Office Visit Family Medicine Kevin Miranda MD [address] [place] [address] (Wo rk) documented as of this encounter Visit Diagnoses Not on filedocumented in this encounter Care Teams Truckman Relationship Specialty Start Date End Date Laurie Elias NP PCP - General Family Medicine 03/02/1811/19/19 documented as of this encounter
--- OUTSIDE RECORDS SUMMARY | 2021-11-06 15:55 | XMS_ITS | Encounter Summary ---
:1945 Author Organization [facility] Address [address] [facility], [address] [place] [address] Care Team Providers Name Role Phone Laruie Elias NP Primary Care Provider Unavailable Encounter Details Date Type Department Care Team Description 03/30/2018 Office Visit [place] [facility], Diverticulitis of Gastrointestinal MD [place] [facility] 330 [facility] without perforation or 300 [facility], absce ss without [address] bleeding (Primary Dx) [place] [address] [place], [place] [phone] Social History Tobacco Use Types Packs/Day Years [...] were not included. 04/02/18 [place] Gorman M.D. manager payment, [facility] Chief, Gastroenterology [facility] [address] [place] [address] FAX [phone] Email: [email or web address] 04/02/18 Re: [id number] Molly Rios Referring physician: Laurie Elias NP [address] [facility] [address] Molly Rios is a 73 y.o. female [...] Visit Family Medicine Kevin Miranda MD [address] [place], [place] [address] (Wo rk) documented as of this encounter Visit Diagnoses Diagnosis Diverticulitis of large intestine withou t perforation or abscess without bleeding - Primary documented in this encounter Care Teams Acting Teacher Relationship Specialty Start Date End Date Laurie Elias NP PCP - General Family Medicine 03/02/1811/19/19 documented as of this encounter
--- OUTSIDE RECORDS SUMMARY | 2021-11-06 15:55 | XMS_ITS | Encounter Summary ---
:1945 Author Organization [facility] Address 330 [facility], [address] [place] [address] Care Team Providers Name Role Phone Laurie Elias ENDOSCOPE TECHNICIAN Primary Care Provider Unavailable Reason for Visit Reason Comments Annual Exam Encounter Details Date Type Department Care Team Description 06/08/2018 Office Visit Kaushik Elias, Annual phy sical exam (Primary Dx); Practice ANN Sullivan Screening for depression; [address] [place] Diverticulitis; [place] [address] Insomnia, unspecified type; [phone] Acute pain of r ight shoulder; Osteopenia, uns pecified location; Lumbar facet ar thropathy; Routine health maintenance; Bandemia; Hyperlipidemia, unspecified hyperlipidemia type; Screening for l ipid disorders; Screening for [...] (q 6 months) at [facility] (Dr. Rosenberg). 3. She sees Dr. Harrison at [facility] for routine eye care 4. Sleep disorder: [...] PT 6. 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 For [...] and fiber regimen. F/u with Dr. Gorman ([facility] gastroenterology) for routine f/u and colonoscopy. Relevant [...] and fiber regimen. F/u with Dr. Gorman ([facility] gastroenterology) for routine f/u and colonoscopy. documented in this encounter Plan of Treatment Upcoming Encounters Date Type Specialty Care Team Description 11/30/2021 Office Visit Family Medicine Kevin Miranda MD [address] [place] [address] (Wo rk) documented as of [...] encounter Results CBC (06/27/2018 10:04 AM EDT) [facility] Method Time Signature White Blood 7.0 3.8 - 10.8 [facility] Count Thousand/u [place] [facility] Red Blood Count 4.30 3.80 - [facility] ics 5.10 [place] Million/uL [facility] Hemoglobin 13.3 11.7 - [facility] 15.5 g/dL [place] [facility] Hematocrit 40.2 35.0 - [facility] 45.0 % [place] [facility] MCV 93.5 80.0 - [facility] 100.0 fL [place] [facility] MCH 30.9 27.0 - [facility] 33.0 pg [place] [facility] MCHC 33.1 32.0 - [facility] 36.0 g/dL [place] [facility] MRDW 12.6 11.0 - [facility] 15.0 % [place] [facility] Platelet count 321 140 - 400 [facility] Thousand/u [facility] MPV 10.0 7.5 - 12.5 [facility] fL [place] [facility] Specimen Anatomical Collection Method Collection Time Receive d Time (Source) Location / / Volume Laterality Blood Venous blood / 06/27/2018 10:04 9 Unknown AM EDT 10:04 AM EDT Narrative [facility] - 06/28/2018 4:45 AM EDT FASTING:YES FASTING: YES Laurie Elias NP LAB BLOOD ORDERABLES Performing Organization Address City/State/ZIP Code Phon e Number [facility] [address] [phone] [place] [address] [place] [address] [employer] [address] [phone] Diagnost (ABNORMAL) Lipid Panel with Reflex to Direct LDL (06/27/2018 10:04 AM EDT) [facility] Method Time Signature Cholesterol, 206 (H) <200 [facility] Total mg/dL [place] [facility] HDL Cholesterol 91 >50 mg/dL [facility] [place] [facility] TRIGS 53 <150 [facility] mg/dL [place] [facility] LDL Cholesterol 101 (H) mg/dL ROL[facility] ics (calc) [place] [facility] Comment: Reference range: <100 Desirable range <100 [...] CARTER et al. GEOVANNA. 2013;310(19): 206 1-2068 (http://education.ConnectedHealth.OpenQ/f aq/ZLC723) HDL 2.3 <5.0 (calc) [facility] [place] [employer] Non HDL Chol. (LDL+VLDL) 115 <130 mg/dL (calc) Warp 9 [place] [facility] Comment: For patients with diabetes plus [...] Organization Address City/State/ZIP Code Phon e Number [facility] [address] [phone] [place] [address] [address] [place] [address] [employer] [address] [address] Diagnost Basic metabolic panel (06/27/2018 10:04 AM EDT) athologist Signature Glucose 89 65 - 99 Warp 9 mg/dL [place] [facility] Comment: ? Fasting reference interv al Bun 23 7 - 25 mg/dL Warp 9 [place] [facility] Creatinine, Ser 0.73 0.60 - 0.93 mg/dL Warp 9 [place] [facility] Comment: For patients >49 years of age, the refer ence limit for Creatinine is approximately 13% high er for people identified as -Macanese. eGFR NON-AFR. 83 > OR = 60 mL/min/1.73m2 Qu est Diagnostics [facility] [employer] Diagnost eGFR 96 > OR = 60 mL/min/1.73m2 Que [facility] Diagn[facility] [employer] [facility] BUN/Creatinine NOT APPLICABLE 6 - 22 (calc) [facility] Ratio [place] [facility] Sodium 142 135 - 146 mmol/L [facility] [place] [employer] Potassium 4.9 3.5 - 5.3 mmol/L [facility] [place] [employer] Chloride 105 98 - 110 mmol/L [facility] ics [place] [facility] CO2 32 20 - 32 mmol/L [facility] Calcium 9.4 8.6 - 10.4 mg/dL [facility] [place] [facility] Specimen Anatomical Collection Method Collection Time Receive d Time (Source) Location / / Volume Laterality Blood Venous blood / 06/27/2018 10:04 9 Unknown AM EDT 10:04 AM EDT Narrative [facility] - 06/28/2018 4:45 AM EDT FASTING:YES FASTING: YES Laurie Elias NP LAB BLOOD ORDERABLES Performing Organization Address City/State/ZIP Code Phon e Number [employer] [address] [phone] [place] [address], [address] [place] [address], [facility] [address] [phone] Diagnost documented in this encounter Visit Diagnoses [...] mellitus documented in this encounter Care Teams Rock Climbing Instructor Relationship Specialty Start Date End Date Laurie Elias NP PCP - General Family Medicine 03/02/1811/19/19 documented as of this encounter
--- OUTSIDE RECORDS SUMMARY | 2021-11-06 15:55 | XMS_ITS | Encounter Summary ---
:1945 Author Organization [facility] Address 330 [facility], [address] [place] [address] Care Team Providers Name Role Phone Laurie Elias NP Primary Care Provider Unavailable Encounter Details Date Type Department Care Team Description 03/06/2018 Telephone [facility] José Antonio ling MD Consultants 330 [facility], [address] [facility] [address], [facility] [address] [address] [phone] (Wo rk) Social History Tobacco Use Types Packs/Day Years Used Date Former Smoker Smokeless Tobacco: Never Used Alcohol Use Standard Drinks/Week Comments Defer 0 (1 standard drink = 0.6 oz pure alcoho l) Sex Assigned at Date Recorded Female 04/12/2019 2:19 PM EST documented as of this encounter Miscellaneous Notes Telephone Encounter - José Antonio Shipley MD - 03/06/2018 3:19 PM EST Paged by patient to report slight increase in her abdominal discomfort after re- introducing some solid food to her diet last night. She has sigmoid diverticulitis with evidence of possible upstream ileus on recent CT. She is otherwise feeling better on oral antibiotics with no fevers, overall more comf ortable. I recommended that she go back to liquid-only diet for the next 24 hours, let more time pass. If feeling well after that she will then re-attempt small solids. All her questions were answered. documented in this encounter Plan of Treatment Upcoming Encounters Date Type Specialty Care Team Description 11/30/2021 Office Visit Family Medicine Kevin Miranda MD [facility]0 [place], [place] [address] (Wo rk) documented as of this encounter Visit Diagnoses Not on filedocumented in this encounter Care Teams Cleaning Associate Relationship Specialty Start Date End Date Laurie Elias NP PCP - General Family Medicine 03/02/1811/19/19 documented as of this encounter
--- OUTSIDE RECORDS SUMMARY | 2021-11-06 15:55 | XMS_ITS | Encounter Summary ---
:1945 Author Organization [facility] Address 330 [facility], [address] [place] [address] Care Team Providers Name Role Phone Laurie Elias WIND TURBINE CONTROLS ENGINEER Primary Care Provider Unavailable Encounter Details Date Type Department Care Team Description 04/26/2018 Travel Social History Tobacco Use Types Packs/Day [...] Office Visit Family Medicine Kevin Miranda MD [address] [place] [address] (Wo rk) documented as of this encounter Visit Diagnoses Not on filedocumented in this encounter Care Teams Hollow Handle Bench Worker Relationship Specialty Start Date End Date Laurie Elias NP PCP - General Family Medicine 03/02/1811/19/19 documented as of this encounter
--- OUTSIDE RECORDS SUMMARY | 2021-11-06 15:55 | XMS_ITS | Encounter Summary ---
:1945 Author Organization [facility] Address 330 [facility], [address] [place] [address] Care Team Providers Name Role Phone Laurie Elias CANDLE MOLDER MACHINE Primary Care Provider Unavailable Encounter Details Date Type Department Care Team Description 03/22/2018 Orders Only [facility] Jose Daniel Jones, [address], [facility] [address] [place] [address] [address] [facility]. [address] [place], [place] [address] Social History Tobacco Use Types Packs/Day Years [...] Office Visit Family Medicine Kevin Miranda MD [facility]0 [place], [place] [address] (Wo rk) documented as of this encounter Visit Diagnoses Not on filedocumented in this encounter Care Teams Senior Compensation Consultant Relationship Specialty Start Date End Date Laurie Elias NP PCP - General Family Medicine 03/02/1811/19/19 documented as of this encounter
--- OUTSIDE RECORDS SUMMARY | 2021-11-06 15:55 | XMS_ITS | Encounter Summary ---
:1945 Author Organization [facility] Address 330 [facility], [address] [place] [address] Care Team Providers Name Role Phone Laurie Elias NP Primary Care Provider Unavailable Encounter Details Date Type Department Care Team Description 09/06/2018 Telephone [employer] Laurie Brown NP [address] [place] [address] Social History Tobacco Use Types Packs/Day Years [...] Visit Family Medicine Kevin Miranda MD [address] [place], [place] [address] (Wo rk) documented as of this encounter Visit Diagnoses Not on filedocumented in this encounter Care Teams Graduate Student Relationship Specialty Start Date End Date Laurie Elias NP PCP - General Family Medicine 03/02/1811/19/19 documented as of this encounter
--- OUTSIDE RECORDS SUMMARY | 2021-11-06 15:55 | XMS_ITS | Encounter Summary ---
:1945 Author Organization [facility] Address 330 [facility], [address] [place] [address] Care Team Providers Name Role Phone Laurie Elias MANAGER FAST FOOD Primary Care Provider Unavailable Encounter Details Date Type Department Care Team Description 03/08/2018 Scan Document - View Trini Gómez in Chart Practice MANAGER FAST FOOD [facility]0 [place] [address] Social History Tobacco Use Types Packs/Day Years [...] Visit Family Medicine Kevin Miranda MD [address] [place] [address] (Wo rk) documented as of this encounter Visit Diagnoses Not on filedocumented in this encounter Care Teams Ledger Clerk Relationship Specialty Start Date End Date Laurie Elias NP PCP - General Family Medicine 03/02/1811/19/19 documented as of this encounter
--- OUTSIDE RECORDS SUMMARY | 2021-11-06 15:55 | XMS_ITS | Encounter Summary ---
:1945 Author Organization [facility] Address 330 [facility], [address] [place] [address] Care Team Providers Name Role Phone JadaHeatherLaurie RADIATION THERAPY TECHNICIAN Primary Care Provider Unavailable Encounter Details Date Type Department Care Team Description 05/30/2018 Rehab [facility] Physical Se lázaro Jason MD [address] [place] [address] Chronic low back pain, Therapy Pricila Curry, PT unspecified back pain [address] [facility], [facility], with [address] [place] [address] unspecified (Primary Dx) [phone] Social History Tobacco Use Types Packs/Day Years Used Date Former Smoker Smokeless Tobacco: Never Used Alcohol Use Standard Drinks/Week Comments Defer 0 (1 standard drink = 0.6 oz pure alcoho l) Sex Assigned at Date Recorded Female 04/12/2019 2:19 PM EST documented as of this encounter Progress Notes Pricila Curry, PT - 05/30/2018 2:30 PM EDT Rehabilitation Services Physical Therapy [address] [facility], [address] [facility] [address] PROGRESS NOTE visit 9 [facility] Molly Rios is a 73 y.o. female.who has been referred to physical therapy by Dr. Jason with dx of R hip pain(decreased ROM, pelvic pain, groin pain, R SI pain, chronic glut medius tendinopathy). Pt reports she is a very active person at baseline. Noticed R LBP in June after swimming (changedher technique and pain improved). Pt seen by PT at [facility] for R hip pain. Started doing side lying hip abd with 5 lb. Developed more pain (? Overdid her ex). + R sided groin pain. CC is weakness B hips. Referred to PT for consult. Will f/u with MD after completion of PT. Seen by ortho at [facility]-x-rays done, advised to strengthen/stretch R LE. ?? [...] + tendonopathy gluteal medius muscle R Subjective S/p visit to Dr. Jason (advised to stretch piriformis)MD f/u in 6 weeks S/p visit to ortho [facility] (Dr. Coleman)- R groin pain is from DJD R hip Will see chiro today for shock wave therapy on R gluteal medius Objective Pain at rest: 0/10-3/10 R hip/groin/LB Func: + difficulty with rising from toilet due to weakness R hip. Taking a break from Yoga and swimming for now Treatment: ex Long axis distraction R hip Stretching to R hip adductors in supine Hip adductor in side lying and standing x 10 Arnulfo stretch R, clam shell/reverse clam shell R, quad stretch R Hamstring stretch R/L (neutral and with ER/IR) Wall sit SLR R/L x 10 (neutral and with ER) Front plank (elbows bent, legs straight)-with leg lift (as tolerated) Foam roller to R piriformis Hydrant in quadruped, hip extension in quadruped Reviewed: Foam roller to R hamstring, R Quad/Hip flexors Quadruped arm and leg lift (on green ball) SLS R/L Monster walks (forward/back/side) with green band Bridge with april, bridge on green bal ?? Encouraged to continue with swimming/riding bike as sx permit Assessment/Plan Pt did well with ex. Function remains decreased (rising from toilet/half kneeling position). Encouraged to continue with ex as tolerated. Plan: f/u next week, await results of chiro visit today (shock therapy to R hip). Pricila Curry, PT 05/30/2018 documented in this encounter Plan of Treatment Upcoming Encounters Date Type Specialty Care Team Description 11/30/2021 Office Visit Family Medicine Kevin Miranda MD [facility] [place], [place] [address] (Wo rk) documented as of this encounter Visit Diagnoses Diagnosis Chronic low back pain, unspecified back pain laterality, with sciatica presence unspecified - Primary documented in this encounter Care Teams Vein Access Technician Relationship Specialty Start Date End Date Laurie Elias NP PCP - General Family Medicine 03/02/1811/19/19 documented as of this encounter
--- OUTSIDE RECORDS SUMMARY | 2021-11-06 15:55 | XMS_ITS | Encounter Summary ---
:1945 Author Organization [facility] Address 330 [facility], [address] [place] [address] Care Team Providers Name Role Phone JadaLaurie velasquez ANN Primary Care Provider Unavailable Encounter Details Date Type Department Care Team Description 03/07/2018 Telephone [facility] zurita MD Consultants [address] [facility], [address] [facility] [address], [facility] [address] [place], [place] [address] [place] [address] [phone] (Wo rk) Social History Tobacco Use Types [...] Visit Family Medicine Kevin Miranda MD [address] [facility] [place] [address] (Wo rk) documented as of this encounter Visit Diagnoses Not on filedocumented in this encounter Care Teams Electrical Helper Relationship Specialty Start Date End Date Laurie Elias NP PCP - General Family Medicine 03/02/1811/19/19 documented as of this encounter
--- OUTSIDE RECORDS SUMMARY | 2021-11-06 15:55 | XMS_ITS | Encounter Summary ---
:1945 Author Organization [facility] Address 330 [facility], [address] [place] [address] Care Team Providers Name Role Phone Laurie Elias NP Primary Care Provider Unavailable Reason for Visit Reason Comments Groin Pain Encounter Details Date Type Department Care Team Description 11/30/2018 Office Visit Paula Funk, Primary osteoarthritis of right hip (Primary Dx); Practice MD Acute left ankle pain [address] [place] [address] [place], [place] [phone] Social History Tobacco Use Types Packs/Day Years [...] Visit Family Medicine Kevin Miranda MD [address] [place], [place] [address] (Wo rk) documented as of this encounter Visit Diagnoses Diagnosis Primary osteoarthritis of right hip - Pr imary Acute left ankle pain documented in this encounter Care Teams Evaporator Operator Relationship Specialty Start Date End Date Laurie Elias NP PCP - General Family Medicine 03/02/1811/19/19 documented as of this encounter
--- OUTSIDE RECORDS SUMMARY | 2021-11-06 15:55 | XMS_ITS | Encounter Summary ---
:1945 Author Organization [facility] Address 330 [facility], [address] [place] [address] Care Team Providers Name Role Phone Laurie Elias PATTERNMAKER PLASTICS Primary Care Provider Unavailable Encounter Details Date [...] Office Visit Family Medicine Kevin Miranda MD [address] [place] [phone] (Wo rk) documented as of this encounter Visit Diagnoses Not on filedocumented in this encounter Care Teams Auditor Relationship Specialty Start Date End Date Laurie Elais NP PCP - General Family Medicine 03/02/1811/19/19 documented as of this encounter
--- OUTSIDE RECORDS SUMMARY | 2021-11-06 15:55 | XMS_ITS | Encounter Summary ---
:1945 Author Organization [facility] Address 330 [facility], [address] [place] [address] Care Team Providers Name Role Phone Laurie Elias LOCAL HAZMAT DRIVER Primary Care Provider Unavailable Encounter Details Date Type Department Care Team Description 04/06/2018 Telephone [facility] Dallas zurita MD Consultants 330 [facility], 300 [facility] t, [facility] [address] [place], [place] [address] [place] [address] [phone] (Wo rk) Social History Tobacco Use Types [...] Office Visit Family Medicine Kevin Miranda MD [address] [place] [address] (Wo rk) documented as of this encounter Visit Diagnoses Not on filedocumented in this encounter Care Teams Director Of Archives Relationship Specialty Start Date End Date Laurie Elias, ANN PCP - General Family Medicine 03/02/1811/19/19 documented as of this encounter
--- OUTSIDE RECORDS SUMMARY | 2021-11-06 15:55 | XMS_ITS | Encounter Summary ---
:1945 Author Organization [facility] Address 330 [facility], [address] [place] [address] Care Team Providers Name Role Phone JadaHeatherLaurie ELEVATOR STARTER Primary Care Provider Unavailable Encounter Details Date Type Department Care Team Description 03/29/2018 Rehab [facility] Physical Se lázaro Jason MD [address] [place] [address] Chronic low back pain, Therapy Pricila Curry, PT unspecified back pain [address] [facility], [facility], with [address] [place] [address] unspecified (Primary Dx) [phone] Social History Tobacco Use Types Packs/Day Years [...] Physical Therapy [address] [facility], [address] [facility] [address] PROGRESS NOTE visit 4 ALBERT Rios [...] pain improved). Pt seen by PT [place] [facility] [place] pain. Started doing side lying hip abd with 5 lb. Developed more pain (? Overdid her ex). + R sided groin pain. CC is weakness B hips. Referred to PT for consult. Will f/u with MD after completion of PT. Seen by ortho at [facility] [place], advised to strengthen/stretch R LE. ?? [...] hip abd exercises Objective Pain at rest:03/26- 2 R hip/groin/LB Func: swimming is ok, less [...] Visit Family Medicine Kevin Miranda MD [address] [place], [place] [phone] (Wo rk) documented as of this encounter Visit Diagnoses Diagnosis Chronic low back pain, unspecified back pain laterality, with sciatica presence unspecified - Primary documented in this encounter Care Teams Gravel Screener Relationship Specialty Start Date End Date Laurie Elias NP PCP - General Family Medicine 03/02/1811/19/19 documented as of this encounter
--- OUTSIDE RECORDS SUMMARY | 2021-11-06 15:55 | XMS_ITS | Encounter Summary ---
:1945 Author Organization [facility] Address 330 [facility], [address] [place] [address] Care Team Providers Name Role Phone Laurie Elias PRINT OPERATOR Primary Care Provider Unavailable Encounter Details Date Type Department Care Team Description 04/27/2018 Refill [facility] actLaurie Carr NP [facility]0 [place] [address] Social History Tobacco Use Types Packs/Day Years [...] Visit Family Medicine Kevin Miranda MD [address] [place], [place] [address] (Wo rk) documented as of this encounter Visit Diagnoses Not on filedocumented in this encounter Care Teams Lease Purchase Driver Relationship Specialty Start Date End Date Laurie Elias NP PCP - General Family Medicine 03/02/1811/19/19 documented as of this encounter
--- OUTSIDE RECORDS SUMMARY | 2021-11-06 15:55 | XMS_ITS | Encounter Summary ---
:1945 Author Organization [facility] Address 330 [facility], [address] [place] [address] Care Team Providers Name Role Phone JadaHeatherLaurie INDUSTRIAL ARTS TEACHER Primary Care Provider Unavailable Encounter Details Date Type Department Care Team Description 05/02/2018 Rehab [facility] Physical Se lázaro Jason MD [address] [place] [address] Chronic low back pain, Therapy Pricila Curry, PT unspecified back pain 7[address] [facility], [facility], with [address] [place] [address] unspecified (Primary Dx) [phone] Social History Tobacco Use Types Packs/Day Years Used Date Former Smoker Smokeless Tobacco: Never Used Alcohol Use Standard Drinks/Week Comments Defer 0 (1 standard drink = 0.6 oz pure alcoho l) Sex Assigned at Date Recorded Female 04/12/2019 2:19 PM EST documented as of this encounter Progress Notes Pricila Curry, PT - 05/02/2018 12:00 PM EDT Rehabilitation Services Physical Therapy 7[address] [facility], [address] [facility] [address] PROGRESS NOTE visit 7 [facility] Molly Rios is a 73 y.o. [...] Pt seen by PT at [facility] for R hip pain. Started doing side lying hip abd with 5 lb. Developed more pain (? Overdid her ex). + R sided groin pain. CC is weakness B hips. Referred to PT for consult. Will f/u with MD after completion of PT. Seen by ortho at [facility] done, advised to [...] needed 04/05/18: new order from Ellie Ventura- Letty knee OA: Knee ROM and strengthening, stretch [...] F/u next week, treat as indicated Pricila Curry PT 05/02/2018 documented in this encounter Plan of Treatment Upcoming Encounters Date Type Specialty Care Team Description 11/30/2021 Office Visit Family Medicine Kevin Miranda MD [address] [place], [place] [address] (Wo rk) documented as of this encounter Visit Diagnoses Diagnosis Chronic low back pain, unspecified back pain laterality, with sciatica presence unspecified - Primary documented in this encounter Care Teams Air Quality Chemist Relationship Specialty Start Date End Date Laurie Elias NP PCP - General Family Medicine 03/02/1811/19/19 documented as of this encounter
--- OUTSIDE RECORDS SUMMARY | 2021-11-06 15:55 | XMS_ITS | Encounter Summary ---
:1945 Author Organization [facility] Address 330 [facility], [address] [place] [address] Care Team Providers Name Role Phone Laurie Elias NP Primary Care Provider Unavailable Reason for Visit Reason Comments Fever Encounter Details Date Type Department Care Team Description 03/24/2018 Office Visit Mary Gómez, uns pecified Practice ANN Sullivan fever cause (Primary [address] [place]) [place] [address] Social History Tobacco Use Types Packs/Day Years [...] encounter Progress Notes Laurie Elias NP - 03/24/2018 3:00 PM EST Images from [...] Visit Family Medicine Kevin Miranda MD [address] [place], [place] [address] (Wo rk) Scheduled Orders [...] (03/24/2018 4:14 PM EST) Analysis Performed At [facility] Urine Culture [facility] Comment: ??CULTURE, URINE, ROUTINE ?MICRO NUMBER: ?[id number] ??TEST STATUS: ? FINAL ??SPECIMEN SOURCE: ?? URINE, CLEAN CATC H ??SPECIMEN QUALITY: ??ADEQUATE ??RESULT: ?No Growth Specimen Anatomical Collection Method Collection Time Receive d Time (Source) Location / / Volume Laterality 03/24/2018 4:14 PM 9 4:14 EST PM EST Laurie Elias NP LAB MICROBIOLOGY - GENERAL O RDERABLES Performing Organization Address [facility] Phon e Number [employer] [address] B i[employer]umen [address] [place] [address] [facility] solutionQuest [address] [phone] Diagnost (ABNORMAL) CBC (03/24/2018 4:14 PM EST) [facility] Method Time Signature White Blood 11.6 (H) 3.8 - [facility] Count 10.8 [place] [facility] uL [facility]ost Red Blood 4.19 3.80 - [facility] Count 5.10 [place] [facility] L [facility] Hemoglobin 12.9 11.7 - [facility] 15.5 g/dL [place] [facility] Hematocrit 37.5 35.0 - [facility] 45.0 % [place] [facility] MCV 89.5 80.0 - [facility] 100.0 fL [place] [facility] MCH 30.8 27.0 - [facility] 33.0 pg [place] [facility] MCHC 34.4 32.0 - [facility] 36.0 g/dL [place] [facility] MRDW 12.6 11.0 - [facility] 15.0 % [place] [facility] Platelet count 509 (H) 140 - 400 [facility]/ [place] uL [facility] MPV 9.5 7.5 - [facility] 12.5 fL [place] [facility] Specimen Anatomical Collection Method Collection Time Receive d Time (Source) Location / / Volume Laterality Blood Venous blood / 03/24/2018 4:14 PM 019 4:14 Unknown EST PM EST Laurie Elias NP LAB BLOOD ORDERABLES Performing Organization Address [facility] Phon e Number [employer] [address] [phone] [place] [address], [address] [facility] [address] [facility], [facility], [facility] [address] [phone] Diagnost documented in this encounter Visit Diagnoses Diagnosis Fever, unspecified fever cause - Primary documented in this encounter Care Teams Skiver Heel Tap Relationship Specialty Start Date End Date Laurie Elias NP PCP - General Family Medicine 03/02/1811/19/19 documented as of this encounter
--- OUTSIDE RECORDS SUMMARY | 2021-11-06 15:55 | XMS_ITS | Encounter Summary ---
:1945 Author Organization [facility] Address 330 [facility], [address] [place] [address] Care Team Providers Name Role Phone Laurie Elias CARDIOLOGY FELLOW Primary Care Provider Unavailable Encounter Details Date Type Department Care Team Description 10/06/2018 Telephone [facility] Dallas zurita MD Consultants 330 [facility], [address] [facility] [address], [facility] [address] [place], [place] [address] [place] [address] [phone] (Wo rk) Social History Tobacco Use Types [...] Office Visit Family Medicine Kevin Miranda MD [address] [place] [address] (Wo rk) documented as of this encounter Visit Diagnoses Not on filedocumented in this encounter Care Teams Fan Blade Aligner Relationship Specialty Start Date End Date Laurie Elias NP PCP - General Family Medicine 03/02/1811/19/19 documented as of this encounter
--- OUTSIDE RECORDS SUMMARY | 2021-11-06 15:55 | XMS_ITS | Encounter Summary ---
:1945 Author Organization [facility] Address 330 [facility], [address] [place] [address] Care Team Providers Name Role Phone Laurie Elias ANN Primary Care Provider Unavailable Encounter Details Date Type Department Care Team Description 03/17/2018 Telephone [place] [facility] Dallas zurita MD Consultants 330 [facility], 300 [facility] t, [facility] [address] [place], [place] [address] [place] [address] [phone] (Wo rk) Social History Tobacco Use Types [...] Visit Family Medicine Kevin Miranda MD 10[address] [facility] [place] [address] (Wo rk) documented as of this encounter Visit Diagnoses Not on filedocumented in this encounter Care Teams Shaving Machine Operator Relationship Specialty Start Date End Date Laurie Elias NP PCP - General Family Medicine 03/02/1811/19/19 documented as of this encounter
--- OUTSIDE RECORDS SUMMARY | 2021-11-06 15:55 | XMS_ITS | Encounter Summary ---
:1945 Author Organization [facility] Address 330 [facility], [address] [place] [address] Care Team Providers Name Role Phone Laurie Elias LARDER COOK Primary Care Provider Unavailable Encounter Details Date Type Department Care Team Description 04/10/2018 Scan Document - View Trini Gómez in Chart Practice LARDER COOK [facility] [place] [address] Social History Tobacco Use Types Packs/Day Years [...] Visit Family Medicine Kevin Miranda MD [address] [place] [address] (Wo rk) documented as of this encounter Visit Diagnoses Not on filedocumented in this encounter Care Teams Retail Banker Relationship Specialty Start Date End Date Laurie Elias NP PCP - General Family Medicine 03/02/1811/19/19 documented as of this encounter
--- OUTSIDE RECORDS SUMMARY | 2021-11-06 15:55 | XMS_ITS | Encounter Summary ---
:1945 Author Organization [facility] Address 330 [facility], [address] [place] [address] Care Team Providers Name Role Phone Laurie Elias HYDROMETEOROLOGY TEACHER Primary Care Provider Unavailable Encounter Details Date Type Department Care Team Description 05/01/2018 Travel Social History Tobacco Use Types Packs/Day [...] Office Visit Family Medicine Kevin Miranda MD [address] [place] [address] (Wo rk) documented as of this encounter Visit Diagnoses Not on filedocumented in this encounter Care Teams Engineering Test Specialist Relationship Specialty Start Date End Date Laurie Elias NP PCP - General Family Medicine 03/02/1811/19/19 documented as of this encounter
--- OUTSIDE RECORDS SUMMARY | 2021-11-06 15:55 | XMS_ITS | Encounter Summary ---
:1945 Author Organization [facility] Address 330 [facility], [address] [place] [address] Care Team Providers Name Role Phone Laurie Elias ANN Primary Care Provider Unavailable Encounter Details Date Type Department Care Team Description 03/14/2018 Orders Only [facility] , [facility] Nawaf Jason MD [address] [place] [address]. [address] [place] [address] [phone] (Wo rk) Social History Tobacco Use Types [...] Visit Family Medicine Kevin Miranda MD [address] [place] [address] (Wo rk) documented as of [...] attachment that is no t available. Nawaf Roxana Jason MD SCANNED ORDERS documented in this encounter Visit Diagnoses Not on filedocumented in this encounter Care Teams Transfusion Nurse Relationship Specialty Start Date End Date Laurie Elias NP PCP - General Family Medicine 03/02/1811/19/19 documented as of this encounter
--- OUTSIDE RECORDS SUMMARY | 2021-11-06 15:55 | XMS_ITS | Encounter Summary ---
:1945 Author Organization [facility] Address 330 [facility], [address] [place] [address] Care Team Providers Name Role Phone Laurie Elias NP Primary Care Provider Unavailable Encounter Details Date Type Department Care Team Description 11/23/2018 Office Visit [place] [facility], Diverticulosis Gastrointestinal MD [place] (Primary Dx) Consultants [address] [place], [place] [address] [place] [address] Social History Tobacco Use Types Packs/Day Years Used Date Former Smoker Smokeless Tobacco: Never Used Alcohol Use Standard Drinks/Week Comments Defer 0 (1 standard drink = 0.6 oz pure alcoho l) Sex Assigned at Date Recorded Female 04/12/2019 2:19 PM EST documented as of this encounter Progress Notes Dallas Gorman MD - 11/23/2018 10:30 AM EDT Images from the original note were not included. 11/25/18 Dallas Gorman M.D. mine car repairer, [facility], Gastroenterology [facility] [address] [place] [address] FAX [phone] Email: [email or web address] 11/25/18 Re: [id number] Molly Rios Referring physician: Laurie Elias NP [address] [facility] [address] Molly Rios is a 73 y.o. female [...] Last colonoscopy 10/28/15 demonstrated severe diverticulosis. Past Medical History: Past Medical History: Diagnosis [...] 03/03/2016 1432 K 4.5 03/03/2016 1432 CL 105 06/27/2018 1004 CO2 32 06/27/2018 1004 BUN 23 06/27/2018 1004 BUN 14 03/03/2016 1432 CREATININE 0.73 06/27/2018 1004 Component Value Date/Time CALCIUM 9.4 06/27/2018 1004 ALT 33 03/03/2016 1432 Lab Results Component Value Date WBC 7.0 06/27/2018 PLT 474 (H) 03/09/2018 No results found for: PT, INR No results found for: ESR No results found for: CRP No results found for: TIBC, UIBC No results found for: AMYLASE No results found for: LIPASE No results found for: SMOOTHMUSCAB, MITOAB No results found for: DELMA Imaging Summary: 1. ABD CT scan 03/02/18 Acute diverticulitis 2. 3. Endoscopy Summary: 1. Colonoscopy 10/28/15 : Severe diverticulosis 2. 3. Impression: Molly Rios is a 73 y.o. female who has returned for a follow up visit to evaluate: 1. Recurrent diverticulitis 2. Constipation secondary to diverticulosis 3. Recommendations: I recommended: 1. Colonoscopy 2. 3. I spent at least 40 minutes [...] Office Visit Family Medicine Kevin Miranda MD [address] [place] [address] (Wo rk) documented as of this encounter Visit Diagnoses Diagnosis Diverticulosis - Primary Diverticulosis of colon (without mention of hemorrhage) documented in this encounter Care Teams Risk Compliance Manager Relationship Specialty Start Date End Date Laurie Elias NP PCP - General Family Medicine 03/02/1811/19/19 documented as of this encounter
--- OUTSIDE RECORDS SUMMARY | 2021-11-06 15:55 | XMS_ITS | Encounter Summary ---
:1945 Author Organization [facility] Address 330 [facility], [address] [place] [address] Care Team Providers Name Role Phone Laurie Elias COMPOSITION PROFESSOR Primary Care Provider Unavailable Encounter Details Date [...] Office Visit Family Medicine Kevin Miranda MD [address] [place] [address] (Wo rk) documented as of this encounter Visit Diagnoses Not on filedocumented in this encounter Care Teams Top And Trim Worker Relationship Specialty Start Date End Date Laurie Elias NP PCP - General Family Medicine 03/02/1811/19/19 documented as of this encounter
--- OUTSIDE RECORDS SUMMARY | 2021-11-06 15:55 | XMS_ITS | Encounter Summary ---
:1945 Author Organization [facility] Address 330 [facility], [address] [place] [address] Care Team Providers Name Role Phone Laurie Elias OCCUPATIONAL HEALTH PHYSIOTHERAPIST Primary Care Provider Unavailable Encounter Details Date [...] Visit Family Medicine Kevin Miranda MD [address] [place] [address] (Wo rk) documented as of this encounter Visit Diagnoses Not on filedocumented in this encounter Care Teams Electrolytic De Scaler Relationship Specialty Start Date End Date Laurie Elias NP PCP - General Family Medicine 03/02/1811/19/19 documented as of this encounter
--- OUTSIDE RECORDS SUMMARY | 2021-11-06 15:55 | XMS_ITS | Encounter Summary ---
:1945 Author Organization [facility] Address 330 [facility], [address] [place] [address] Care Team Providers Name Role Phone JadaHeather zhaoecca SUSTAINABLE DESIGN CONSULTANT Primary Care Provider Unavailable Encounter Details Date Type Department Care Team Description 07/05/2018 Rehab [facility] Physical Se lázaro Jason MD [address] [place] [address] Chronic low back pain, Therapy Pricila Curry, PT unspecified back pain 725 [facility], with [address] [place] [address] unspecified (Primary Dx) [phone] Social History Tobacco Use Types Packs/Day Years Used Date Former Smoker Smokeless Tobacco: Never Used Alcohol Use Standard Drinks/Week Comments Defer 0 (1 standard drink = 0.6 oz pure alcoho l) Sex Assigned at Date Recorded Female 04/12/2019 2:19 PM EST documented as of this encounter Progress Notes Pricila Curry, PT - 07/05/2018 12:00 PM EDT Rehabilitation Services Physical Therapy 7[address] [facility], [address] [facility] [address] PROGRESS NOTE visit 12 [facility] Molly Rios is a 73 y.o. female.who has been referred to physical therapy by Dr. Jason with dx of R hip pain(decreased ROM, pelvic pain, groin pain, R SI pain, chronic glut medius tendinopathy). Pt reports she is a very active person at baseline. Noticed R LBP in June after swimming (changedher technique and pain improved). Pt [place] [facility] [place]. Started doing side lying hip abd with 5 lb. Developed more pain (? Overdid her ex). + R sided groin pain. CC is weakness B hips. Referred to PT for consult. Se[place] by ortho [place] [facility], advised to strengthen/stretch [...] Visit Family Medicine Kevin Miranda MD [address] [place], [place] [address] (Wo rk) documented as of this encounter Visit Diagnoses Diagnosis Chronic low back pain, unspecified back pain laterality, with sciatica presence unspecified - Primary documented in this encounter Care Teams Stand Grinder Relationship Specialty Start Date End Date Laurie Elias NP PCP - General Family Medicine 03/02/1811/19/19 documented as of this encounter
--- OUTSIDE RECORDS SUMMARY | 2021-11-06 15:55 | XMS_ITS | Encounter Summary ---
:1945 Author Organization [facility] Address [address] [facility], [address] [place] [address] Care Team Providers Name Role Phone Laurie Elias NP Primary Care Provider Unavailable Reason for Visit Specialty (Routine) - Closed Specialty Diagnoses / Referred By Contact Referred To Contact Procedures Physical Medicine and Diagnoses Low back pain MRI FOLLOW-UP Lisa Sotelo MD Mostoufi, Seyed A, Rehabilitation Procedures FOLLOW UP [address] [place], [place] [address] [address] [place] [address] Fax: Referral ID Status Reason Start Date Expiration Date Visits Requ ested Visits Authorized [id number] Closed 06/13/2017 06/13/2018 8 8 Encounter Details Date Type Department Care Team Description 05/29/2018 Office Visit [place], Lumbar fa cet arthropathy (Primary Dx); [facility] It band syndrome, left; [address] Lateral knee pain, left; [place] [address] [place], [place] Groin pain, chronic, left; [phone] [id number] Tendinopathy of left gluteus medius Social History [...] from the original note were not included. [facility] [employer] Dear Laurie Elias NP, I had a pleasure of reevaluating Ms. Molly Rios today at [facility], Spine and Regenerative Medicine. Thank you for your referral and please call me if you have any questions regarding this encounter. Cezra Jason MD REASON FOR PM&R CONSULT Follow-up INTERVAL HISTORY : Molly Rios (1945) presenting today 06/04/18 for a follow-up. Since I saw her, she was[facility] Wyatt and diagnosed by [...] presentationnot require intervention. EDUCATION AND COUNSELING : [employer] In addition to in person counseling, patient was directed to our webpage for further education on the topic. DATA & CHART UPDATE Chart updated on 06/04/2018 based on the information provided by Ms. [...] SYSTEMS 13 system reviewed on 06/04/2018 with Ms. Barnes. Positive systems are outlined in history of present illness. All other systems are negative at a time of visit. RESULT REVIEWED([id number]) Available PACS as well as results reviewed [...] Visit Family Medicine Kevin Miranda MD [address] [place] [address] (Wo rk) documented as of this encounter Visit Diagnoses Diagnosis Lumbar facet arthropathy - Primary Spondylosis of unspecified site without mention of myelopathy It band syndrome, left Lateral knee pain, left Groin pain, chronic, left Tendinopathy of left gluteus medius documented in this encounter Care Teams Special Education Preschool Teacher Relationship Specialty Start Date End Date Laurie Elias NP PCP - General Family Medicine 03/02/1811/19/19 documented as of this encounter
--- OUTSIDE RECORDS SUMMARY | 2021-11-06 15:55 | XMS_ITS | Encounter Summary ---
:1945 Author Organization [facility] Address [address] [facility], [address] [place] [address] Care Team Providers Name Role Phone Laurie Elias BOAT BUILDER Primary Care Provider Unavailable Encounter Details Date Type Department Care Team Description 07/03/2018 Travel Social History Tobacco Use Types Packs/Day [...] Office Visit Family Medicine Kevin Miranda MD [address] [place] [address] (Wo rk) documented as of this encounter Visit Diagnoses Not on filedocumented in this encounter Care Teams Curriculum Supervisor Relationship Specialty Start Date End Date Laurie Elias NP PCP - General Family Medicine 03/02/1811/19/19 documented as of this encounter
--- OUTSIDE RECORDS SUMMARY | 2021-11-06 15:55 | XMS_ITS | Encounter Summary ---
:1945 Author Organization [facility] Address [address] [facility], [address] [place] [address] Care Team Providers Name Role Phone JadaHeatherLaurie WEIGHT COUNT OPERATOR Primary Care Provider Unavailable Encounter Details Date Type Department Care Team Description 06/22/2018 Rehab [facility] Physical Se lázaro Jason MD [address] [place] [address] Chronic low back pain, Therapy Pricila Curry, PT unspecified back pain [address] [facility], with [address] [place] [address] unspecified (Primary Dx) [phone] Social History Tobacco Use Types Packs/Day Years Used Date Former Smoker Smokeless Tobacco: Never Used Alcohol Use Standard Drinks/Week Comments Defer 0 (1 standard drink = 0.6 oz pure alcoho l) Sex Assigned at Date Recorded Female 04/12/2019 2:19 PM EST documented as of this encounter Progress Notes Pricila Curry, PT - 06/22/2018 1:00 PM EDT Rehabilitation Services Physical Therapy [address] [facility], [address] [facility] [address] PROGRESS NOTE visit 11 [facility] Molly Rios is a 73 y.o. female.who has been referred to physical therapy by Dr. Jason with dx of R hip pain(decreased ROM, pelvic pain, groin pain, R SI pain, chronic glut medius tendinopathy). Pt reports she is a very active person at baseline. Noticed R LBP in June after swimming (changedher technique and pain improved). Pt seen by PT [place] [facility] [place]. Started doing side lying hip abd with 5 lb. Developed more pain (? Overdid her ex). + R sided groin pain. CC is weakness B hips. Referred to PT for consult. Will f/u with MD after completion of PT. Seen by [place]o [place] [facility], advised to strengthen/stretch R LE. ?? [...] and strengthening ex R WES Curry, PT 06/22/2018 documented in this encounter Plan of Treatment Upcoming Encounters Date Type Specialty Care Team Description 11/30/2021 Office Visit Family Medicine Kevin Miranda MD [address] [place], [place] [address] (Wo rk) documented as of this encounter Visit Diagnoses Diagnosis Chronic low back pain, unspecified back pain laterality, with sciatica presence unspecified - Primary documented in this encounter Care Teams Advanced Practice Psychiatric Nurse Relationship Specialty Start Date End Date Laurie Elias NP PCP - General Family Medicine 03/02/1811/19/19 documented as of this encounter
--- OUTSIDE RECORDS SUMMARY | 2021-11-06 15:55 | XMS_ITS | Encounter Summary ---
:1945 Author Organization [facility] Address [address] [facility], [address] [place] [address] Care Team Providers Name Role Phone Laurie Elias MIDDLE SCHOOL MUSIC TEACHER Primary Care Provider Unavailable Encounter Details [...] Visit Family Medicine Kevin Miranda MD [address] [place] [address] (Wo rk) documented as of this encounter Visit Diagnoses Not on filedocumented in this encounter Care Teams Taxicab Coordinator Relationship Specialty Start Date End Date Laurie Elias NP PCP - General Family Medicine 03/02/1811/19/19 documented as of this encounter
--- OUTSIDE RECORDS SUMMARY | 2021-11-06 15:55 | XMS_ITS | Encounter Summary ---
:1945 Author Organization [facility] Address [address] [facility], [address] [place] [address] Care Team Providers Name Role Phone Laurie Elias NP Primary Care Provider Unavailable Encounter Details Date Type Department Care Team Description 03/28/2018 Telephone [facility] Laurie Brown NP [address] [place], [place] [id number] Social History Tobacco Use Types Packs/Day Years Used Date Former Smoker Smokeless Tobacco: Never Used Alcohol Use Standard Drinks/Week Comments Defer 0 (1 standard drink = 0.6 oz pure alcoho l) Sex Assigned at Date Recorded Female 04/12/2019 2:19 PM EST documented as of this encounter Miscellaneous Notes Telephone Encounter - Laurie Elias NP - 03/28/2018 3:07 PM EST Patient returned call. She reports she is still having similar symptoms (night sweats and low-grade fevers, only at night) since re-starting the antibiotics. She is otherwise feeling well. We discussedpursuing a repeat CT scan to check for resolving diverticulitis. She would prefer that I first consult with Dr. Gorman to see if this is something he would want ordered before her visit on 03/30. [facility] and informed that Dr. Gorman will return tomorrow, so will reach out to office tomorrow. Telephone Encounter - Laurie Elias NP - 03/28/2018 12:44 PM EST Telephone call to patient to follow-up symptoms. Left VMM requesting return call. If not improving with abx, discuss repeat CT scan with patient (tomorrow). documented in this encounter Plan of Treatment Upcoming Encounters Date Type Specialty Care Team Description 11/30/2021 Office Visit Family Medicine Kevin Miranda MD [facility] [place], [place] [address] (Wo rk) documented as of this encounter Visit Diagnoses Not on filedocumented in this encounter Care Teams Sticker On Relationship Specialty Start Date End Date Laurie Elias NP PCP - General Family Medicine 03/02/1811/19/19 documented as of this encounter
--- OUTSIDE RECORDS SUMMARY | 2021-11-06 15:55 | XMS_ITS | Encounter Summary ---
:1945 Author Organization [facility] Address [address] [facility], [address] [place] [address] Care Team Providers Name Role Phone Jada Laurie ANN Primary Care Provider Unavailable Reason for Visit Reason Onset Date Comments PT HAS A QUESTION FOR YOU 05/15/2018 Encounter Details Date Type Department Care Team Description 05/15/2018 Telephone [facility], Nawaf Jason, PT HAS A QUESTION FOR LLC MD YOU [address] [address] [phone] (Wo rk) Social History Tobacco Use Types [...] - 05/15/2018 3:[address] Mccoy PT CAME IN THIS AFTERNOON AND SINCE [...] Visit Family Medicine Kevin Miranda MD [address] [place] MARY [place] [address] (Wo rk) documented as of this encounter Visit Diagnoses Not on filedocumented in this encounter Care Teams Triple Drum Operator Relationship Specialty Start Date End Date Laurie Elias NP PCP - General Family Medicine 03/02/1811/19/19 documented as of this encounter
--- OUTSIDE RECORDS SUMMARY | 2021-11-06 15:55 | XMS_ITS | Encounter Summary ---
:1945 Author Organization [facility] Address [address] [facility], [address] [place] [address] Care Team Providers Name Role Phone Laurie Elias NP Primary Care Provider Unavailable Encounter Details Date Type Department Care Team Description 03/21/2018 Telephone [facility] [address] [facility], [address] [facility] [address] [place], [place] [address] [place] [address] [phone] (Wo rk) Social History Tobacco Use Types [...] Visit Family Medicine Kevin Miranda MD [address] [place], [place] [address] (Wo rk) documented as of this encounter Visit Diagnoses Not on filedocumented in this encounter Care Teams Survey Coordinator Relationship Specialty Start Date End Date Laurie Elias NP PCP - General Family Medicine 03/02/1811/19/19 documented as of this encounter
--- OUTSIDE RECORDS SUMMARY | 2021-11-06 15:55 | XMS_ITS | Encounter Summary ---
:1945 Author Organization [facility] Address [address] [facility], [address] [place] [address] Care Team Providers Name Role Phone JadaHeatherLaurie HOT IRON WORKER Primary Care Provider Unavailable Encounter Details Date Type Department Care Team Description 03/24/2018 Rehab [facility] Physical Se lázaro Jason MD [address] [place] [address] Chronic low back pain, Therapy Pricila Curry, PT unspecified back pain [address] [facility], [address] [place] [address] unspecified (Primary Dx) [phone] Social History Tobacco Use Types Packs/Day Years Used Date Former Smoker Smokeless Tobacco: Never Used Alcohol Use Standard Drinks/Week Comments Defer 0 (1 standard drink = 0.6 oz pure alcoho l) Sex Assigned at Date Recorded Female 04/12/2019 2:19 PM EST documented as of this encounter Progress Notes Pricila Curry, PT - 03/24/2018 12:00 PM EST Rehabilitation Services Physical Therapy [address] [facility], [address] [facility] [address] PROGRESS NOTE visit 3 ALBERT Rios [...] Pt seen by PT at [facility] for R hip pain. Started doing side lying hip abd with 5 lb. Developed more pain (? Overdid her ex). + R sided groin pain. CC is weakness B hips. Referred to PT for consult. Will f/u with MD after completion of PT. Seen by ortho at [facility]-x-rays done, advised to strengthen/stretch R LE. ?? [...] R Bridge R/L x 10, bridge with march Quadruped arm and leg [...] Visit Family Medicine Kevin Miranda MD [address] [place], [place] [address] (Wo rk) documented as of this encounter Visit Diagnoses Diagnosis Chronic low back pain, unspecified back pain laterality, with sciatica presence unspecified - Primary documented in this encounter Care Teams Post Commander Relationship Specialty Start Date End Date Laurie Elias NP PCP - General Family Medicine 03/02/1811/19/19 documented as of this encounter
--- OUTSIDE RECORDS SUMMARY | 2021-11-06 15:55 | XMS_ITS | Encounter Summary ---
:1945 Author Organization [facility] Address [address] [facility], [address] [place] [address] Care Team Providers Name Role Phone Laurie Elias NP Primary Care Provider Unavailable Encounter Details Date Type Department Care Team Description 03/15/2018 Telephone [facility] Dallas zurita MD [facility] [address] [facility], [address] [facility] [address], [facility] [address] [place], [place] [address] [place] [address] [phone] (Wo rk) Social History Tobacco Use Types [...] Team Description 11/30/2021 Office Visit Family Medicine Kvein Miranda MD [address] [facility] [place] [address] (Wo rk) documented as of this encounter Visit Diagnoses Not on filedocumented in this encounter Care Teams Gas Meter Installer Relationship Specialty Start Date End Date Laurie Elias NP PCP - General Family Medicine 03/02/1811/19/19 documented as of this encounter
--- OUTSIDE RECORDS SUMMARY | 2021-11-06 15:55 | XMS_ITS | Encounter Summary ---
:1945 Author Organization [facility] Address [address] [facility], [address] [place] [address] Care Team Providers Name Role Phone JadaHeatherLaurie CONCRETE PILE DRIVER OPERATOR Primary Care Provider Unavailable Encounter Details Date Type Department Care Team Description 03/13/2018 Rehab [facility] Physical Se lázaro Jason MD [address] [place] [address] Chronic low back pain, Therapy Pricila Curry, PT unspecified back pain [address] [facility], with [address] [place] [address] unspecified (Primary Dx) [phone] Social History Tobacco Use Types Packs/Day Years Used Date Former Smoker Smokeless Tobacco: Never Used Alcohol Use Standard Drinks/Week Comments Defer 0 (1 standard drink = 0.6 oz pure alcoho l) Sex Assigned at Date Recorded Female 04/12/2019 2:19 PM EST documented as of this encounter Progress Notes Pricila Curry, PT - 03/13/2018 1:30 PM EST Rehabilitation Services Physical Therapy [address] [facility], [address] [facility] [address] PROGRESS NOTE visit 2 ALBERT Rios [...] improved). Pt seen by PT [place] [facility] [place]. Started doing side lying hip abd with 5 lb. Developed more pain (? Overdid her ex). + R sided groin pain. CC is weakness B hips. Referred to PT for consult. Will f/u with MD after completion of PT. Seen by ortho at [facility], advised to strengthen/stretch R LE. ?? [...] f/u next week, progress as indicated. Pricila Curry, PT 03/13/2018 documented in this encounter Plan of Treatment Upcoming Encounters Date Type Specialty Care Team Description 11/30/2021 Office Visit Family Medicine Kevin Miranda MD [address] [place] [address] (Wo rk) documented as of this encounter Visit Diagnoses Diagnosis Chronic low back pain, unspecified back pain laterality, with sciatica presence unspecified - Primary documented in this encounter Care Teams Delivery Person Relationship Specialty Start Date End Date Laurie Elias NP PCP - General Family Medicine 03/02/1811/19/19 documented as of this encounter
--- OUTSIDE RECORDS SUMMARY | 2021-11-06 15:55 | XMS_ITS | Encounter Summary ---
:1945 Author Organization [facility] Address [address] [facility], [address] [place] [address] Care Team Providers Name Role Phone JadaHeatherLaurie WEB SOLUTIONS ARCHITECT Primary Care Provider Unavailable Encounter Details Date Type Department Care Team Description 04/26/2018 Rehab [facility] Physical Se lázaro Jason MD [address] [place] [address] Chronic low back pain, Therapy Pricila Curry, PT unspecified back pain [address] [facility], with [address] [place] [address] unspecified (Primary Dx) [phone] Social History Tobacco Use Types Packs/Day Years Used Date Former Smoker Smokeless Tobacco: Never Used Alcohol Use Standard Drinks/Week Comments Defer 0 (1 standard drink = 0.6 oz pure alcoho l) Sex Assigned at Date Recorded Female 04/12/2019 2:19 PM EST documented as of this encounter Progress Notes Pricila Curry, PT - 04/26/2018 2:30 PM EDT Rehabilitation Services Physical Therapy [address] [facility], [address] [facility] [address] PROGRESS NOTE visit 6 [facility] Molly Rios is a 73 y.o. female.who has been referred to physical therapy by Dr. Jason with dx of R hip pain(decreased ROM, pelvic pain, groin pain, R SI pain, chronic glut medius tendinopathy). Pt reports she is a very active person at baseline. Noticed R LBP in June after swimming (changedher technique and pain improved). Pt [place] [facility] [place]. Started doing side lying hip abd with 5 lb. Developed more pain (? Overdid her ex). + R sided groin pain. CC is weakness B hips. Referred to PT for consult. Will f/u with MD after completion of PT. Se[place] by ortho [place] [facility], [...] Visit Family Medicine Kevin Miranda MD [address] [place], [place] [address] (Wo rk) documented as of this encounter Visit Diagnoses Diagnosis Chronic low back pain, unspecified back pain laterality, with sciatica presence unspecified - Primary documented in this encounter Care Teams Mailing Specialist Relationship Specialty Start Date End Date Laurie Elias NP PCP - General Family Medicine 03/02/1811/19/19 documented as of this encounter
--- OUTSIDE RECORDS SUMMARY | 2021-11-06 15:56 | XMS_ITS | Encounter Summary ---
:1945 Author Organization [facility] Address [address] [facility], [address] [place] [address] Care Team Providers Name Role Phone Laurie Elias STAFFING ASSOCIATE Primary Care Provider Unavailable Encounter Details Date Type Department Care Team Description 03/02/2018 Orders Only [facility] Laurie Brown NP [address] [place] [address] Social History Tobacco Use Types [...] Visit Family Medicine Kevin Miranda MD [address] [place], [place] [address] (Wo rk) documented as [...] (03/02/2018 3:15 PM EST) Analysis Performed At [facility] Time Signature White Blood TNP [place]/u [facility] Count L [facility] Comment: * Test not performed. ? * * Duplicate test. ? * Specimen Anatomical Collection Method Collection Time Receive d Time (Source) Location / / Volume Laterality 03/02/2018 3:15 PM 9 3:18 EST PM EST Laurie Elias NP LAB BLOOD ORDERABLES Performing Organization Address [facility] Phon e Number [email or web address] [address] [employer] [address] [place] [address] [employer] [address] [address] Diagnost Basic metabolic panel (03/02/2018 3:15 PM EST) P athologist Signature Glucose TNP mg/dL [facility] Comment: * Test not performed. ? * * Duplicate test. ? * Specimen Anatomical Collection Method Collection Time Receive d Time (Source) Location / / Volume Laterality 03/02/2018 3:15 PM 9 3:18 EST PM EST Laurie Elias NP LAB BLOOD ORDERABLES Performing Organization Address [facility] Phon e Number [email or web address] [address], [address] [employer] [address] [place] [address] [employer] [address] [id number] Diagnost documented in this encounter Visit Diagnoses Not on filedocumented in this encounter Care Teams Composite Boat Builder Relationship Specialty Start Date End Date Laurie Elias NP PCP - General Family Medicine 03/02/1811/19/19 documented as of this encounter
--- OUTSIDE RECORDS SUMMARY | 2021-11-06 15:56 | XMS_ITS | Encounter Summary ---
:1945 Author Organization [facility] Address [address] [facility], [address] [place] [address] Care Team Providers Name Role Phone Lisa Sotelo MD Primary Care Provider Encounter Details Date Type Department Care Team Description 06/06/2017 Orders Only [facility] Pr actice Lisa Sotelo MD [facility] [address] [address] [place] [address] [phone] (Wo rk) Social History Tobacco Use Types [...] Visit Family Medicine Kevin Miranda MD [address] [place] [address] (Wo rk) documented as of this encounter Visit Diagnoses Not on filedocumented in this encounter Care Teams Wildlife Control Operator Relationship Specialty Start Date End Date Lisa Sotelo MD PCP - General Family Medicine 08/19/16 03/01/[address] [place] [address] documented as of this encounter
--- OUTSIDE RECORDS SUMMARY | 2021-11-06 15:56 | XMS_ITS | Encounter Summary ---
:1945 Author Organization [facility] Address [address] [facility], [address] [place] [address] Care Team Providers Name Role Phone Lisa Sotelo MD Primary Care Provider Reason for Referral Rehab (Routine) - Closed Specialty Diagnoses / Procedures Referred By Contact Refer red To Contact Physical Therapy Diagnoses Lumbar facet arthropathy Nawaf Jason MD [address] [place] [address] Referral ID Status Reason Start Date Expiration Date Visits V isits Requested Authorized [id number] Closed Specialty 06/27/2017 06/27/2018 1 1 Services Required Reason for Visit Specialty (Routine) - Closed Specialty Diagnoses / Referred By Contact Referred To Contact Procedures Physical Medicine and Diagnoses MRI FOLLOW-UP Lisa Sotelo MD Mostoufi, Seyed A, Rehabilitation Procedures FOLLOW UP [facility]0 Parul WINSTON [place] [address] [address] [place] [address] Fax: Referral ID Status Reason Start Date Expiration Date Visits Requ ested Visits Authorized [id number] Closed 06/06/2017 06/06/2018 3 3 Encounter Details Date Type Department Care Team Description 06/27/2017 Office Visit [place] Mostoufi, Nawaf A, Radiculop athy, lumbar region (Primary Dx); Physiatry, [facility] Lumbar facet arthropathy ([facility]); [address] [facility] 799 [facility] It band syndrome, left; [place] [address] [place], [place] Lateral knee pain, left [phone] Social History Tobacco Use Types Packs/Day Years [...] PT documented in this encounter Progress Notes Naawf Jason MD - 06/27/2017 10:15 AM EDT Images from the original note were not included. [facility] [place] [facility]: 799 [facility] Spine Center: 92 [facility]ine Center: 800 [facility] T: [phone] F:[phone] [email or web address] Patient: Molly Rios : 1945 Date of [...] left Topical treatment Education and counseling : ([employer]) Education: in person education and counseling on [...] of physical therapy is completed. Recent Imagin, [facility] and [facility] Available Films as well as results [...] of the lumbar vertebrae are preserved. - Hr Payroll Coordinator: PANKAJ Insurance Follow Up Representative: [email or web address] Results for orders placed during the [...] canal stenosis. Bilateral disc protrusions result in mohk-bu-xekjtiad right l2-3 and mild left neural foraminal [...] foramina and contact of the exiting right D2yevfu root. There is gkae-pe-fmosnywj encroachment of the left neural foramina, but [...] flavum hypertrophy. Bilateral disc protrusions result in arvc-uw-kblzhshb right and mild left neural foraminal narrowing, [...] SYNDROME OARASPINAL MUSCLE ATROPHY Pt 8 [place]ITS [facility] [place] [employer] Standing Status: Future Standing [...] Visit Family Medicine Kevin Miranda MD 10[address] [place], [place] 0 (Wo rk) Scheduled Referrals Name Type Priority Associated Order Schedule Diagnoses Prescription to Outpatient Routine Lumbar facet 1 Occurrence s Physical Therapy Referral arthropathy starting ([facility]) until 8 documented as of this encounter Visit Diagnoses Diagnosis Radiculopathy, lumbar region - Primary Thoracic or lumbosacral neuritis or radi culitis, unspecified Lumbar facet arthropathy Spondylosis of unspecified site without mention of myelopathy It band syndrome, left Lateral knee pain, left documented in this encounter Care Teams Manager Hardware Relationship Specialty Start Date End Date Lisa Sotelo MD PCP - General Family Medicine 08/19/16 03/01/[address] [place] [address] documented as of this encounter
--- OUTSIDE RECORDS SUMMARY | 2021-11-06 15:56 | XMS_ITS | Encounter Summary ---
:1945 Author Organization [facility] Address [address] [facility], [address] [place] [address] Care Team Providers Name Role Phone Lisa Sotelo MD Primary Care Provider Encounter Details Date Type Department Care Team Description 08/01/2017 Refill [facility] Pr actice Lisa Sotelo MD [facility] [address] [address] [place] [address] [phone] (Wo rk) Social History Tobacco Use Types [...] Visit Family Medicine Kevin Miranda MD [address] [place] [address] (Wo rk) documented as of this encounter Visit Diagnoses Not on filedocumented in this encounter Care Teams Collar Stay Fuser Tender Relationship Specialty Start Date End Date Lisa Sotelo MD PCP - General Family Medicine 08/19/16 03/01/[address] [place] [address] documented as of this encounter
--- OUTSIDE RECORDS SUMMARY | 2021-11-06 15:56 | XMS_ITS | Encounter Summary ---
:1945 Author Organization [facility] Address 330 [facility], [address] [place] [address] Care Team Providers Name Role Phone Lisa Sotelo MD Primary Care Provider Encounter Details Date Type Department Care Team Description 06/06/2017 Documentation [facility] Lisa Gudino MD [address] [place] [address] [place] [address] [phone] (Wo rk) Social History Tobacco Use Types Packs/Day Years Used Date Former Smoker Smokeless Tobacco: Never Used Alcohol Use Standard Drinks/Week Comments Defer 0 (1 standard drink = 0.6 oz pure alcoho l) Sex Assigned at Date Recorded Female 04/12/2019 2:19 PM EST documented as of this encounter Progress Notes Lisa Sotelo - 06/06/2017 12:51 PM EDT Requesting refill of Klonopin for hs use. It appears she went through 40 doses of 0.25 mg each in past 60 days. OK. Doxepin hasn't been refilled--would need PA. documented in this encounter Plan of Treatment Upcoming Encounters Date Type Specialty Care Team Description 11/30/2021 Office Visit Family Medicine Kevin Miranda MD [address] [place] [address] (Wo rk) documented as of this encounter Visit Diagnoses Not on filedocumented in this encounter Care Teams Barrel Turner Relationship Specialty Start Date End Date Lisa Sotelo MD PCP - General Family Medicine 08/19/16 03/01/18 1020 [place] [address] documented as of this encounter
--- OUTSIDE RECORDS SUMMARY | 2021-11-06 15:56 | XMS_ITS | Encounter Summary ---
:1945 Author Organization [facility] Address 330 [facility], [address] [place] [address] Care Team Providers Name Role Phone Kevin Miranda MD Primary Care Provider Reason for Visit Reason Comments Med Refill Encounter Details Date Type Department Care Team Description 06/06/2017 Refill [facility] Pr Lisa Gudino MD [address] [place] [address] [place] [address] [phone] (Wo rk) Social History Tobacco Use Types [...] Visit Family Medicine Kevin Miranda MD [address] [place] [address] (Wo rk) documented as of this encounter Visit Diagnoses Not on filedocumented in this encounter Care Teams Halftone Operator Relationship Specialty Start Date End Date Kevin Miranda MD PCP - General Family Medicine 11/20/[address] [place] [address] documented as of this encounter
--- OUTSIDE RECORDS SUMMARY | 2021-11-06 15:56 | XMS_ITS | Encounter Summary ---
:1945 Author Organization [facility] Address 330 [facility], [address] [place] [address] Care Team Providers Name Role Phone Lisa Sotelo MD Primary Care Provider Reason for Visit Reason Comments Rash on face Encounter Details Date Type Department Care Team Description 01/17/2017 Office Visit [facility] Dermatitis of face Practice ANN Krishnamurthy (Primary Dx) [address] [place] 1020 [place] [address] [place], [place] [phone] Social History Tobacco Use Types Packs/Day Years [...] but she has an appointment with her technical support 1 software engineer later today and will discuss further with her. No lab work needed at our appointment. Follow up prn. Yessy William NP documented in this encounter Plan of Treatment Upcoming Encounters Date Type Specialty Care Team Description 11/30/2021 Office Visit Family Medicine Kevin Miranda MD [address] [place] [address] (Wo rk) documented as of this encounter Visit Diagnoses Diagnosis Dermatitis of face - Primary documented in this encounter Care Teams Cooper Apprentice Relationship Specialty Start Date End Date Lisa Sotelo MD PCP - General Family Medicine 08/19/16 03/01/18 1020 [facility] [place] [address] documented as of this encounter
--- OUTSIDE RECORDS SUMMARY | 2021-11-06 15:56 | XMS_ITS | Encounter Summary ---
:1945 Author Organization [facility] Address 330 [facility], [address] [place] [address] Care Team Providers Name Role Phone Lisa [...] Office Visit Family Medicine Kevin Miranda MD [facility]0 [place], [place] [address] (Wo rk) documented as of this encounter Visit Diagnoses Not on filedocumented in this encounter Care Teams Assistant Track Coach Relationship Specialty Start Date End Date Lisa Sotelo MD PCP - General Family Medicine 08/19/16 03/01/[address] [place] [address] documented as of this encounter
--- OUTSIDE RECORDS SUMMARY | 2021-11-06 15:56 | XMS_ITS | Encounter Summary ---
:1945 Author Organization [facility] Address 330 [facility], [address] [place] [address] Care Team Providers Name Role Phone Lisa Sotelo MD Primary Care Provider Reason for Visit Reason Comments Follow-up on medication Encounter Details Date Type Department Care Team Description 03/10/2017 Office Visit [facility] actLisa Segundo MD Sleep disorder [address] [place] [address] [place] [address] [phone] (Wo rk) Social History Tobacco Use Types [...] Visit Family Medicine Kevin Miranda MD [address] [place], [place] [address] (Wo rk) documented as of this encounter Visit Diagnoses Diagnosis Sleep disorder Unspecified sleep disturbance documented in this encounter Care Teams Well Logging Captain Mud Analysis Relationship Specialty Start Date End Date Lisa Sotelo MD PCP - General Family Medicine 08/19/16 03/01/18 1020 [place] [address] documented as of this encounter
--- OUTSIDE RECORDS SUMMARY | 2021-11-06 15:56 | XMS_ITS | Encounter Summary ---
:1945 Author Organization [facility] Address 330 [facility], [address] [place] [address] Care Team Providers Name Role Phone Lisa Sotelo MD Primary Care Provider Encounter Details Date Type Department Care Team Description 02/01/2017 Orders Only [facility] actice Provider, MD Harsh [address] [place] [address] [phone] Social History Tobacco Use Types Packs/Day Years [...] Visit Family Medicine Kevin Miranda MD [address] [place] [address] (Wo rk) documented as of [...] in this encounter Care Teams Director Of Business Services Relationship Specialty Start Date End Date Lisa Sotelo MD PCP - General Family Medicine 08/19/16 03/01/18 1020 [place] [address] documented as of this encounter
--- OUTSIDE RECORDS SUMMARY | 2021-11-06 15:56 | XMS_ITS | Encounter Summary ---
:1945 Author Organization [facility] Address 330 [facility], [address] [place] [address] Care Team Providers Name Role Phone Lisa Sotelo MD Primary Care Provider Reason for Referral Diagnostic Imaging (Routine) - Closed Specialty Diagnoses / Procedures Referred By Contact Refer red To Contact Diagnoses Chronic pain of left knee Nawaf Jason MD Procedures X-ray Knee 3 Views Left [address] [place] [address] Referral ID Status Reason Start Date Expiration Date Visits Requ ested Visits Authorized [id number] Closed 06/13/2017 06/13/2018 1 1 iagnostic Imaging (Routine) - Closed Specialty Diagnoses / Procedures Referred By Contact Refer red To Contact Radiology Diagnoses Radiculopathy, lumbar region Nawaf Jason MD Procedures MRI Lumbar Spine without Contrast [address] [place] [address] Referral ID Status Reason Start Date Expiration Date Visits Requ ested Visits Authorized [id number] Closed 06/13/2017 06/13/2018 1 1 Encounter Details Date Type Department Care Team Description 06/13/2017 Consult [facility], Nawaf Jason, Radiculopathy, lumbar region (Primary Dx); IRIS WINSTON It band syndrome, left; [address] Lateral knee pain, left; [place] [address] [place] [address] Chronic pain of left knee [phone] (Wo rk) Social History Tobacco Use Types [...] from the original note were not included. [facility] [place] [facility]: 799 [facility] Center: 92 [facility] Spine Center: 800 [facility] T: [phone] F:[phone] [employer] Reason for PM&R Consultation: 1. Radiculopathy, right [...] for further education on the topic : [employer] cc: Lisa Sotelo MD Dear Lsia Sotelo MD Thank you for referring Molly Rios is a 72 y.o. female to [facility]. [...] for that has not helped. In the [facility] she had an x-ray done in June [...] flavum hypertrophy. ??Bilateral disc protrusions result in anhc-cw-gysmagdp right and mild left neural foraminal narrowing, [...] Visit Family Medicine Kevin Miranda MD [address] [place], [place] [address] (Wo rk) documented as of this encounter Results MRI Lumbar [...] flavum hypertrophy. ??Bilateral disc protrusions result in pgrx-jn-lyschwgh right and mild left neural foraminal narrowing, [...] diverticulosis. Dictated: 06/22/2017 11:06 AM Report ID: [id number] Report signed in external system at 06/22 11:06 Reported By: Dusty Norwood M.D. (NATALIA) Signed By: Dusty Norwood M.D. (NATALIA) Narrative 06/22/2017 11:06 AM EDT RESPONSIBLE GEOPHYSICAL DATA TECHNICIAN: Dusty Norwood M.D. EXAMINATION: MRI LUMBAR SPINE [...] stenosis. ??Bila teral disc protrusions result in etot-wa-wwufayrs right and mild left neural foraminal narrowing, [...] exiting right L5 nerve root. ??There is xeji-me-eggbhqht encroachment of the left neural foramina, but without contact of the exiting left L5 nerve root. ??There is no significant narrowing of the spinal canal. Other: Fatty replacement of the paraspin ous musculature is noted at L4-L5 and L5-S1. Pelvic viscera are not evaluated. ??Sigm oid diverticulosis is noted. ??There is trace free pelvic fluid. Procedure Note Dusty Norwood MD - 06/22/2017 RESPONSIBLE GEOPHYSICAL DATA TECHNICIAN: Dusty Norwood M.D. EXAMINATION: MRI LUMBAR SPINE [...] stenosis. Bilateral disc pr otrusions result in kloa-wv-oqmpecys right and mild left neural foraminal narrowing, [...] exiting right L5 nerve root. There is rcfg-yx-olnqfzwt encroachment o f the left neural foramina, [...] flavum hypertrophy. Bilateral disc protrusions result in gdpi-kq-yxqfqrav right and mild left neural foraminal narrowing, [...] diverticulosis. Dictated: 06/22/2017 11:06 AM Report ID: [id number] Report signed in external system at 06/22 11:06 Reported By: Dusty Norwood M.D. (NATALIA) Signed By: Dusty Norwood M.D. (NATALIA) Nawaf Jason MD [facility] PROCEDURES X-ray Knee 3 Views Left (06/20/2017 4:14 PM EDT) Anatomical Region Laterality Modality Knee Left Digital Radiography Specimen (Source) Anatomical Collection Method Collection Time Re ceived Time Location / / Volume Laterality 06/20/2017 4:30 PM EDT Impressions 06/20/2017 4:16 PM EDT Degenerative change. Dictated: 06/20/2017 4:16 PM Report ID: [id number] Report signed in external system at 06/20 16:16 Reported By: Wale Faustin M.D. (TAMICA P) Signed By: Wale Faustin M.D. (ROGP) Narrative 06/20/2017 4:16 PM EDT RESPONSIBLE GEOPHYSICAL DATA TECHNICIAN: Wale Faustin M.D. EXAMINATION: XR KNEE 3 [...] might be different from the original. RESPONSIBLE GEOPHYSICAL DATA TECHNICIAN: Wale Faustin M.D. EXAMINATION: XR KNEE 3 [...] change. Dictated: 06/20/2017 4:16 PM Report ID: [id number] Report signed in external system at 06/20 [...] unspecified documented in this encounter Care Teams Still Operator Whiskey Relationship Specialty Start Date End Date Lisa Sotelo MD PCP - General Family Medicine 08/19/16 03/01/18 [address] [place] [address] documented as of this encounter
--- OUTSIDE RECORDS SUMMARY | 2021-11-06 15:56 | XMS_ITS | Encounter Summary ---
:1945 Author Organization [facility] Address 330 [facility], [address] [place] [address] Care Team Providers Name Role Phone Laurie Elias NP Primary Care Provider Unavailable Reason for Referral Diagnostic Imaging (Routine) - Closed Specialty Diagnoses / Procedures Referred By Contact Refer red To Contact Radiology Diagnoses Diverticulitis Lower abdominal pain Laurie Elias NP Procedures CT Abdomen Pelvis with Contrast [address] [place] [address] Referral ID Status Reason Start Date Expiration Date Visits Requ ested Visits Authorized [id number] Closed 03/02/2018 03/02/2019 1 1 Reason for Visit Diagnostic Imaging (Routine) - Closed Specialty Diagnoses / Procedures Referred By Contact Refer red To Contact Radiology Diagnoses Diverticulitis Lower abdominal pain Laurie Elias NP Procedures CT Abdomen Pelvis with Contrast [address] [place] [address] Referral ID Status Reason Start Date Expiration Date Visits Requ ested Visits Authorized [id number] Closed 03/02/2018 03/02/2019 1 1 Encounter Details Date Type Department Care Team Description 03/03/2018 Hospital Encounter [facility] CT Letty Elias Scan BIOLOGIST [address] [facility] [address] Social History Tobacco Use Types Packs/Day [...] Office Visit Family Medicine Kevin Miranda MD [address] [place] [address] (Wo rk) documented as of [...] ation. Dictated: 03/03/2018 10:05 PM Report ID: [id number] Report signed in external system at 03/03 22:05 Reported By: Andi Hartley M.D. (residehillary dorman) ([id number]) Signed By: Gt Ledezma M.D. (LAURA Betancur) Narrative 03/03/2018 10:05 PM EST RESPONSIBLE FOUNDER CHAIRMAN AND CHIEF CREATIVE OFFICER: Gt Ledezma M.D. EXAMINATION: CT ABDOMEN PELVIS [...] might be different from the original. RESPONSIBLE FOUNDER CHAIRMAN AND CHIEF CREATIVE OFFICER: Gt Ledezma M.D. EXAMINATION: CT ABDOMEN PELVIS [...] ation. Dictated: 03/03/2018 10:05 PM Report ID: [id number] Report signed in external system at 03/03 22:05 Reported By: Andi Hartley M.D. (pam dorman) ([id number]) Signed By: Gt Ledezma M.D. (LAURA Betancur) [...] dose documented in this encounter Care Teams Torpedo Specialist Relationship Specialty Start Date End Date Laurie Elias NP PCP - General Family Medicine 03/02/1811/19/19 documented as of this encounter
--- OUTSIDE RECORDS SUMMARY | 2021-11-06 15:56 | XMS_ITS | Encounter Summary ---
:1945 Author Organization [facility] Address 330 [facility], [address] [place] [address] Care Team Providers Name Role Phone Kevin Miranda MD Primary Care Provider Reason for Visit Reason Comments Med Refill Encounter Details Date Type Department Care Team Description 11/27/2017 Refill [facility] Pr Lisa Gudino MD [address] [place] [address] [place] [address] [phone] (Wo rk) Social History Tobacco Use Types [...] Office Visit Family Medicine Kevin Miranda MD [address] [place] [address] (Wo rk) documented as of this encounter Visit Diagnoses Not on filedocumented in this encounter Care Teams Clerical Proofreader Relationship Specialty Start Date End Date Kevin Miranda MD PCP - General Family Medicine 11/20/[address] [place] [address] documented as of this encounter
--- OUTSIDE RECORDS SUMMARY | 2021-11-06 15:56 | XMS_ITS | Encounter Summary ---
:1945 Author Organization [facility] Address 330 [facility], [address] [place] [address] Care Team Providers Name Role Phone Laurie Elias SEWING MACHINIST Primary Care Provider Unavailable Encounter Details Date Type Department Care Team Description 03/03/2018 Orders Only [facility] actLaurie Carr NP [facility] [place] [address] Social History Tobacco Use Types Packs/Day Years [...] Visit Family Medicine Kevin Miranda MD [address] [place], [place] [address] (Wo rk) documented as of this encounter Visit Diagnoses Not on filedocumented in this encounter Care Teams Firer Portable Boiler Relationship Specialty Start Date End Date Laurie Elias NP PCP - General Family Medicine 03/02/1811/19/19 documented as of this encounter
--- OUTSIDE RECORDS SUMMARY | 2021-11-06 15:56 | XMS_ITS | Encounter Summary ---
:1945 Author Organization [facility] Address 330 [facility], [address] [place] [address] Care Team Providers Name Role Phone Lisa Sotelo MD Primary Care Provider Reason for Referral (Routine) - Closed Specialty Diagnoses / Procedures Referred By Contact Refer red To Contact Diagnoses COPD (chronic obstructive pulmonary disease) ([facility]) Lisa Sotelo MD Procedures Pulmonary function test 10[address] [place] [address] Referral ID Status Reason Start Date Expiration Date Visits Requ ested Visits Authorized [id number] Closed 08/18/2016 02/14/2017 1 1 Reason for Visit (Routine) - Closed Specialty Diagnoses / Procedures Referred By Contact Refer red To Contact Diagnoses COPD (chronic obstructive pulmonary disease) ([facility]) Lisa Sotelo MD Procedures Pulmonary function test [address] [place] [address] Referral ID Status Reason Start Date Expiration Date Visits Requ ested Visits Authorized [id number] Closed 08/18/2016 02/14/2017 1 1 Encounter Details Date Type Department Care Team Description 11/23/2016 Hospital Encounter [facility] Lisa Monroe MD Function [address] [place] [phone] Social History Tobacco Use Types Packs/Day Years [...] Visit Family Medicine Kevin Miranda MD [address] [place], [place] [address] (Wo rk) documented as of this encounter Procedures Procedure Name Priority Date/Time Associated Comments Diagnosis FULL PFT WITH Routine 11/23/2016 10:42 COPD (chronic Results f or this BRONCHODILATORS AM EDT obstructive procedure ar e in pulmonary disease) the resul ts ([facility]) section. documented in this encounter Results FULL PFT WITH BRONCHODILATORS (11/23/2016 10:42 AM EDT) Specimen (Source) Anatomical Collection Method Collection Time Re ceived Time Location / / Volume Laterality 11/23/2016 9:56 AM EDT [facility] - 12/07/2016 2:27 PM EDT [...] hyperlink below for full test data. Lisa Sotelo MD PFT ORDERABLES Performing Organization Address City/State/ZIP Code Phon e Number [facility] [address] [place] [address] documented in this encounter Visit Diagnoses Diagnosis COPD (chronic obstructive pulmonary dise ase) ([facility]) Chronic airway obstruction, not elsewher e classified documented in this encounter Care Teams Asbestos Shingle Inspector Relationship Specialty Start Date End Date Lisa Sotelo MD PCP - General Family Medicine 08/19/16 03/01/18 1020 [place] [address] documented as of this encounter
--- OUTSIDE RECORDS SUMMARY | 2021-11-06 15:56 | XMS_ITS | Encounter Summary ---
:1945 Author Organization [facility] Address 330 [facility], [address] [place] [address] Care Team Providers Name Role Phone Lisa [...] Kevin Miranda MD [facility] [place], [place] [address] (Wo rk) documented as of this encounter Visit Diagnoses Not on filedocumented in this encounter Care Teams Extrusion Former Relationship Specialty Start Date End Date Lisa Sotelo MD PCP - General Family Medicine 08/19/16 03/01/[address] [place] [address] documented as of this encounter
--- OUTSIDE RECORDS SUMMARY | 2021-11-06 15:56 | XMS_ITS | Encounter Summary ---
:1945 Author Organization [facility] Address [address] [facility], [address] [place] [address] Care Team Providers Name Role Phone Lisa [...] Miranda MD [facility]0 [place], [place] [address] (Wo rk) documented as of this encounter Visit Diagnoses Not on filedocumented in this encounter Care Teams Child Care Team Lead Relationship Specialty Start Date End Date Lisa Sotelo MD PCP - General Family Medicine 08/19/16 03/01/[address] [place] [address] documented as of this encounter
--- OUTSIDE RECORDS SUMMARY | 2021-11-06 15:56 | XMS_ITS | Encounter Summary ---
:1945 Author Organization [facility] Address 330 [facility], [address] [place] [address] Care Team Providers Name Role Phone Laurie Elias NP Primary Care Provider Unavailable Encounter Details Date Type Department Care Team Description 02/17/2018 Scan Document - View [facility] Practice ANN Krishnamurthy [id number] [place], [place] [phone] Social History Tobacco Use Types Packs/Day Years [...] Office Visit Family Medicine Kevin Miranda MD [facility] [place], [place] [address] (Wo rk) documented as of this encounter Visit Diagnoses Not on filedocumented in this encounter Care Teams Barn And Property Manager Relationship Specialty Start Date End Date Laurie Elias NP PCP - General Family Medicine 03/02/1811/19/19 documented as of this encounter
--- OUTSIDE RECORDS SUMMARY | 2021-11-06 15:56 | XMS_ITS | Encounter Summary ---
:1945 Author Organization [facility] Address 330 [facility], [address] [place] [address] Care Team Providers Name Role Phone Lisa [...] Office Visit Family Medicine Kevin Miranda MD [facility] [place], [place] [address] (Wo rk) documented as of this encounter Visit Diagnoses Not on filedocumented in this encounter Care Teams Communications Station Manager Relationship Specialty Start Date End Date Lisa Sotelo MD PCP - General Family Medicine 08/19/16 03/01/[address] [place] [address] documented as of this encounter
--- OUTSIDE RECORDS SUMMARY | 2021-11-06 15:56 | XMS_ITS | Encounter Summary ---
:1945 Author Organization [facility] Address 330 [facility], [address] [place] [address] Care Team Providers Name Role Phone Lisa Sotelo MD Primary Care Provider Encounter Details Date Type Department Care Team Description 10/11/2016 Scan Document - View [facility] Lisa Sotelo, in Chart Practice [address] [place] [address] [place], [place] [phone] Social History Tobacco Use Types Packs/Day Years Used Date Former Smoker Sex Assigned at Date Recorded Female 04/12/2019 2:19 PM EST documented as of this encounter Plan of Treatment Upcoming Encounters Date Type Specialty Care Team Description 11/30/2021 Office Visit Family Medicine Kevin Miranda MD [address] [place] [address] (Wo rk) documented as of this encounter Visit Diagnoses Not on filedocumented in this encounter Care Teams Netsuite Consultant Relationship Specialty Start Date End Date Lisa Sotelo MD PCP - General Family Medicine 08/19/16 03/01/[address] [place] [address] documented as of this encounter
--- OUTSIDE RECORDS SUMMARY | 2021-11-06 15:56 | XMS_ITS | Encounter Summary ---
:1945 Author Organization [facility] Address 330 [facility], [address] [place] [address] Care Team Providers Name Role Phone Lisa Sotelo MD Primary Care Provider Reason for Visit Reason Onset Date Comments ANDREY Camb. Appt. 06/13/17 06/03/2017 Encounter Details Date Type Department Care Team Description 06/03/2017 Telephone Round O Physiatry, Nawaf Jason FYI Camb. Appt. IRIS WINSTON 06/13/17 [facility] [facility] [address] [place] [address] [phone] (Wo rk) Social History Tobacco Use Types [...] Office Visit Family Medicine Kevin Miranda MD [facility]0 [place], [place] [address] (Wo rk) documented as of this encounter Visit Diagnoses Not on filedocumented in this encounter Care Teams Donor Services Team Leader Relationship Specialty Start Date End Date Lisa Sotelo MD PCP - General Family Medicine 08/19/16 03/01/[address] [place] [address] documented as of this encounter
--- OUTSIDE RECORDS SUMMARY | 2021-11-06 15:56 | XMS_ITS | Encounter Summary ---
:1945 Author Organization [facility] Address 330 [facility], [address] [place] [address] Care Team Providers Name Role Phone Laurie Elias NP Primary Care Provider Unavailable Reason for Referral Rehab (Routine) - Closed Specialty Diagnoses / Procedures Referred By Contact Refer red To Contact Physical Therapy Diagnoses Groin pain, chronic, left Nawaf Jason MD Duddy, Cathy, PT [address] [place] [address] Referral ID Status Reason Start Date Expiration Date Visits V isits Requested Authorized [id number] Closed Specialty 01/25/2018 01/25/2019 1 1 Services Required Reason for Visit Specialty (Routine) - Closed Specialty Diagnoses / Referred By Contact Referred To Contact Procedures Physical Medicine and Diagnoses Low back pain MRI FOLLOW-UP Lisa Sotelo MD Mostoufi, Seyed A, Rehabilitation Procedures FOLLOW UP [address] [place] [address] [place] [address] [place] [address] Fax: Referral ID Status Reason Start Date Expiration Date Visits Requ ested Visits Authorized [id number] Closed 06/13/2017 06/13/2018 8 8 Encounter Details Date Type Department Care Team Description 01/25/2018 Office Visit Nawaf Faulkner, Lumbar fa cet arthropathy (Primary Dx); Physiatry, [facility] Radiculopathy, lumbar region; [address] It band syndrome, left; [place] [address] [place], [place] Groin pain, chronic, left; [phone] Tendinopathy of left gluteus medius Social History [...] from the original note were not included. 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 Bilateral disc protrusions result in sola-mv-xedrqoyn right and mild left neural foraminal narrowing, [...] physical therapist on this includes working on scientology of her range of motion working and [...] Specialty Services Required Referred to Provider: Pricila Curry PT Requested Specialty: Physical Therapy Number of [...] available PT notes obtained & reviewed. RESULT REVIEWED([id number]) Available PACS as well as results reviewed [...] 2-3 views ap lat Narrative [place] Ministerio [id number] [facility] Silvia.Yessy Leyva Kallie UNK [id number] 1945 68 07/02/2013 Clinical History: RT BUTTOCK AND HIP PAIN EXAM# TYPE/EXAM RESULT [id number] ICQ050/LUMBAR SPINE 2-3 VIEWS Attending Radiologist: MD OROZCO [...] are preserved. Impression: Degenerative change. Report ID: [id number] Dictated: 07/02/13 1328 PAGE 1 Signed Report (CONTINUED) [place] [id number] Stewart JohnYessy UNK UNK [id number] 1945 68 07/02/2013 Clinical History: RT BUTTOCK AND HIP PAIN EXAM# TYPE/EXAM RESULT [id number] LMS944/LUMBAR SPINE 2-3 VIEWS <Continued> ---- Electronic Signature on File ---- Signed By: RAMA OROZCO M.D. Reported By: RAMA OROZCO M.D. CC: Hieu Trevizo M.D.; Yessy William N.P. PAGE 2 Signed Report CC: Hieu Trevizo M.D.; Yessy William N.P. PAGE 2 Signed Report Radiologist JACQUELINE Cell Tower Climber: PANKAJ Loading And Unloading Supervisor: CRISTIAN Results for orders placed during the hospital encounter of 06/22/17 MRI Lumbar Spine without Contrast Narrative RESPONSIBLE HEAD NURSE: Dusty Norwood M.D. EXAMINATION: MRI LUMBAR SPINE [...] canal stenosis. Bilateral disc protrusions result in epuk-vs-olnxahnp right and mild left neural foraminal narrowing, [...] foramina and contact of the exiting right J0hfpuh root. There is sohx-xk-avidmztu encroachment of the left neural foramina, but [...] flavum hypertrophy. Bilateral disc protrusions result in nrvi-gd-lruhjkve right and mild left neural foraminal narrowing, [...] for further education on the topic : [employer] DISCLAIMER Please note that this record has [...] Family Medicine Kevin Miranda MD [facility] [place], [place] [address] (Wo rk) Scheduled Orders Name Type Priority Associated Diagnoses Order S fayedubritatnie Physician Musculoskeletal Procedures Routine Tendinopathy of left [...] medius documented in this encounter Care Teams Ship Fastener Relationship Specialty Start Date End Date Laurie Elias NP PCP - General Family Medicine 03/02/1811/19/19 documented as of this encounter
--- OUTSIDE RECORDS SUMMARY | 2021-11-06 15:56 | XMS_ITS | Encounter Summary ---
:1945 Author Organization [facility] Address 330 [facility], [address] [place] [address] Care Team Providers Name Role Phone Lisa Sotelo MD Primary Care Provider Encounter Details Date Type Department Care Team Description 11/10/2017 Scan Document - View [facility] Lisa Sotelo in [facility] Practice [address] [place] [address] [place] [address] Social History Tobacco Use Types Packs/Day Years [...] Visit Family Medicine Kevin Miranda MD [address] [place] [address] (Wo rk) documented as of this encounter Visit Diagnoses Not on filedocumented in this encounter Care Teams Brake Tester Relationship Specialty Start Date End Date Lisa Sotelo MD PCP - General Family Medicine 08/19/16 03/01/[address] [place] [address] documented as of this encounter
--- OUTSIDE RECORDS SUMMARY | 2021-11-06 15:56 | XMS_ITS | Encounter Summary ---
:1945 Author Organization [facility] Address 330 [facility], [address] [place] [address] Care Team Providers Name Role Phone Lisa [...] Family Medicine Kevin Miranda MD [facility] [place], [place] [address] (Wo rk) documented as of this encounter Visit Diagnoses Not on filedocumented in this encounter Care Teams Welt Stitcher Relationship Specialty Start Date End Date Lisa Sotelo MD PCP - General Family Medicine 08/19/16 03/01/[address] [place] [address] documented as of this encounter
--- OUTSIDE RECORDS SUMMARY | 2021-11-06 15:56 | XMS_ITS | Encounter Summary ---
:1945 Author Organization [facility] Address 330 [facility], [address] [place] [address] Care Team Providers Name Role Phone Lisa Sotelo MD Primary Care Provider Encounter Details Date Type Department Care Team Description 01/26/2018 Office Visit [place] Sherif, Diverticulitis of Gastrointestinal MD [facility] [address] [facility] without perforation or [address] [facility], absce ss without [address] bleeding (Primary Dx) [place] [address] [place], [place] [phone] Social History Tobacco Use Types Packs/Day Years [...] were not included. 01/28/18 [place] Gorman M.D. lithographer helper, [facility] Chief, Gastroenterology [facility] [address] [place] [address] FAX [phone] Email: [email or web address] 01/28/18 Re: [id number] Molly Rios Referring physician: Lisa Sotelo MD [address] [facility] [address] Molly Rios is a 72 y.o. female [...] Office Visit Family Medicine Kevin Miranda MD [address] [place] [address], [place] [address] (Wo rk) documented as of this encounter Visit Diagnoses Diagnosis Diverticulitis of large intestine withou t perforation or abscess without bleeding - Primary documented in this encounter Care Teams Circuit Breaker Assembler Relationship Specialty Start Date End Date Lisa Sotelo MD PCP - General Family Medicine 08/19/16 03/01/18 1020 [place] [address] documented as of this encounter
--- OUTSIDE RECORDS SUMMARY | 2021-11-06 15:56 | XMS_ITS | Encounter Summary ---
:1945 Author Organization [facility] Address 330 [facility], [address] [place] [address] Care Team Providers Name Role Phone Lisa Sotelo MD Primary Care Provider Encounter Details Date Type Department Care Team Description [facility]ie Brown, ANN [address] [place] [address] Social History Tobacco Use Types Packs/Day Years [...] Office Visit Family Medicine Kevin Miranda MD [address] [place] [address] (Wo rk) documented as of this encounter Visit Diagnoses Not on filedocumented in this encounter Care Teams Carroting Machine Operator Relationship Specialty Start Date End Date Lisa Sotelo MD PCP - General Family Medicine 08/19/16 03/01/[address] [place] [address] documented as of this encounter
--- OUTSIDE RECORDS SUMMARY | 2021-11-06 15:56 | XMS_ITS | Encounter Summary ---
:1945 Author Organization [facility] Address [address] [facility], [address] [place] [address] Care Team Providers Name Role Phone Lisa Sotelo MD Primary Care Provider Encounter Details Date Type Department Care Team Description 07/08/2017 Scan Document - View [facility] Lisa Sotelo, in Chart Practice [address] [place], [place] [address] [place], [place] [phone] Social History Tobacco Use Types Packs/Day Years [...] Visit Family Medicine Kevin Miranda MD [address] [place] [address] (Wo rk) documented as of this encounter Visit Diagnoses Not on filedocumented in this encounter Care Teams External Auditor Relationship Specialty Start Date End Date Lisa Sotelo MD PCP - General Family Medicine 08/19/16 03/01/[address] [place] [address] documented as of this encounter
--- OUTSIDE RECORDS SUMMARY | 2021-11-06 15:56 | XMS_ITS | Encounter Summary ---
:1945 Author Organization [facility] Address 330 [facility], [address] [place] [address] Care Team Providers Name Role Phone Lisa Sotelo MD Primary Care Provider Reason for Referral Diagnostic Imaging (Routine) - Closed Specialty Diagnoses / Procedures Referred By Contact Refer red To Contact Radiology Diagnoses Osteopenia of neck of left femur Lisa Sotelo MD Procedures DEXA Bone Density [facility] [place] [address] Referral ID Status Reason Start Date Expiration Date Visits Requ ested Visits Authorized [id number] Closed 01/16/2018 01/16/2019 1 1 Reason for Visit Diagnostic Imaging (Routine) - Closed Specialty Diagnoses / Procedures Referred By Contact Refer red To Contact Radiology Diagnoses Osteopenia of neck of left femur Lisa Sotelo MD Procedures DEXA Bone Density [facility] [address] [place] [address] Referral ID Status Reason Start Date Expiration Date Visits Requ ested Visits Authorized [id number] Closed 01/16/2018 01/16/2019 1 1 Encounter Details Date Type Department Care Team Description 01/18/2018 [facility] Lisa Sotelo MD [id number] [place], [place] [phone] Social History Tobacco Use Types Packs/Day Years [...] Visit Family Medicine Kevin Miranda MD [address] [place], [place] [address] (Wo rk) documented as [...] is at increased fracture risk.. ?? (See shadi fleming mailed data sheets). Dictated: 01/18/2018 2:16 PM Report ID: [id number] Report signed in external system at 06/2017 14:16 Reported By: Ankit Richey M.D. (SCHJ 1) Signed By: Ankit Richey M.D. (SCHJ1) Narrative 01/18/2018 2:16 PM EST RESPONSIBLE RESIDENTIAL DESIGNER: Ankit Richey M.D. EXAMINATION: DEXA BONE DENSITY CENTRAL CLINICAL INDICATION: Osteopenia. ??Postmenopausal female. TECHNIQUE: Dual Energy X-Ray Absorptiometry (DEXA t Nexus DxniSharewire) was performed with measurements of the right [...] might be different from the original. RESPONSIBLE RESIDENTIAL DESIGNER: Ankit Richey M.D. EXAMINATION: DEXA BONE DENSITY CENTRAL CLINICAL INDICATION: Osteopenia. Postmenopausal female. TECHNIQUE: Dual Energy X-Ray Absorptiometry ([facility] t [facility]) was performed with measurements of the right [...] within the expected range for age. COMPARISON: 2016 FINDINGS: L-Spine: T-score -0.5 Z-score 1.7. This [...] sheets). Dictated: 01/18/2018 2:16 PM Report ID: [id number] Report signed in external system at 06/2017 14:16 Reported By: Ankit Richey M.D. (SCHJ 1) Signed By: Ankit Richey M.D. (SCHJ1) Lisa Sotelo MD IMG DXA PROCEDURES documented in this encounter Visit Diagnoses Diagnosis Osteopenia of neck of left femur documented in this encounter Care Teams Car Repairer Relationship Specialty Start Date End Date Lisa Sotelo MD PCP - General Family Medicine 08/19/16 03/01/18 1020 [place] [address] documented as of this encounter
--- OUTSIDE RECORDS SUMMARY | 2021-11-06 15:56 | XMS_ITS | Encounter Summary ---
:1945 Author Organization [facility] Address [address] [facility], [address] [place] [address] Care Team Providers Name Role Phone Laurie Elias PRESCRIPTION CLERK LENSES Primary Care Provider Unavailable Encounter Details Date [...] Office Visit Family Medicine Kevin Miranda MD [address] [place] [address] (Wo rk) documented as of this encounter Visit Diagnoses Not on filedocumented in this encounter Care Teams Crane Chaser Relationship Specialty Start Date End Date Laurie Elias NP PCP - General Family Medicine 03/02/1811/19/19 documented as of this encounter
--- OUTSIDE RECORDS SUMMARY | 2021-11-06 15:56 | XMS_ITS | Encounter Summary ---
:1945 Author Organization [facility] Address [address] [facility], [address] Care Team Providers Name Role Phone Laurie Elias NP Primary Care Provider Unavailable Reason for Referral Diagnostic Imaging (Routine) - Closed Specialty Diagnoses / Procedures Referred By Contact Refer red To Contact Radiology Diagnoses Diverticulitis Lower abdominal pain Laurie Elias NP Procedures CT Abdomen Pelvis with Contrast [address] [place] [address] Referral ID Status Reason Start Date Expiration Date Visits Requ ested Visits Authorized [id number] Closed 03/02/2018 03/02/2019 1 1 Encounter Details Date Type Department Care Team Description 03/02/2018 Office Visit Kaushik Elias, Diverticul itis (Primary Dx); Practice ANN Sullivan Lower abdominal pain [address] [place] [address] Social History Tobacco Use Types Packs/Day Years [...] encounter Progress Notes Laurie Elias NP - 03/02/2018 2:30 PM EST Subjective Patient ID: Molly Rios is a 73 y.o. female. HPI Molly Rios is a 73 year old female with PMHx known severe sigmoid diverticulosis ([id number]) who presents for same-day visit. She believes she may be having a flare-up of diverticulitis. She had similar symptoms in 12/2017, and she improved with a course of augmentin and bowel rest. Since that time, she has been generally well. She followed-up with Dr. Gorman at [facility] 01/26/[address] if [...] Visit Family Medicine Kevin Miranda MD [address] [place], [place] [address] (Wo rk) documented as [...] ation. Dictated: 03/03/2018 10:05 PM Report ID: [id number] Report signed in external system at 03/03 22:05 Reported By: Andi Hartley M.D. (residen t) ([id number]) Signed By: Gt Ledezma M.D. (LAURA D) Narrative 03/03/2018 10:05 PM EST RESPONSIBLE DEMENTIA PROGRAM DIRECTOR: Gt Ledezma M.D. EXAMINATION: CT ABDOMEN PELVIS [...] might be different from the original. RESPONSIBLE DEMENTIA PROGRAM DIRECTOR: Gt Ledezma M.D. EXAMINATION: CT ABDOMEN PELVIS [...] ation. Dictated: 03/03/2018 10:05 PM Report ID: [id number] Report signed in external system at 03/03 22:05 Reported By: Andi Hartley M.D. (pam dorman) ([id number]) Signed By: Gt Ledezma M.D. (LAURA Betancur) Laurie Elias NP IMG CT PROCEDURES (ABNORMAL) [facility] - CBC (with Differential and Platelets) (03/02/2018 3:10 PM EST) [facility] Method Time Signature White Blood 19.4 (H) 3.8 - [facility] Count 10.8 Diagnostics [facility] [place] [facility] Red Blood Count 4.52 3.80 - [facility] 5.10 Diagnostics Million/u [place] [facility] Hemoglobin 14.2 11.7 - [facility] 15.5 g/dL [facility] [place] [facility] Hematocrit 41.5 35.0 - [facility] 45.0 % [facility] [place] [facility] MCV 91.8 80.0 - [facility] 100.0 fL [facility] [place] [facility] MCH 31.4 27.0 - [facility] 33.0 pg [facility] [place] [facility] MCHC 34.2 32.0 - [facility] 36.0 g/dL [facility] [place] [facility] MRDW 13.0 11.0 - [facility] 15.0 % [facility] [place] [facility] Platelet count 276 140 - 400 [facility] Thousand/ Diagnostics uL [place] [facility] MPV 10.1 7.5 - [facility] 12.5 fL [facility] [place] [facility] Absolute 17,324 1,500 - [facility] Neutrophil (H) 7,800 Diagnostics Count cells/uL [place] [facility] Diagnost Lymphosytes 873 850 - [facility] absolute 3,900 Diagnostics cells/uL [place] [facility] Absolute 1,125 (H) 200 - 950 [facility] Monocyte count cells/uL [facility] [place] [facility] Absolute 19 15 - 500 [facility] Eosinophil cells/uL Diagnostics count [place] [facility] Lymphocyte 58 0 - 200 [facility] cells/uL [facility] [place] [facility] Neutrophils 89.3 % [facility] [place] [facility] Lymphocyte 4.5 % [facility] [place] [facility] Monocytes 5.8 % [facility] [place] [facility] Eosinophil 0.1 % [facility] [place] [facility] Basophil 0.3 % [facility] [place] [facility] Specimen Anatomical Collection Method Collection Time Receive d Time (Source) Location / / Volume Laterality Blood Venous blood / 03/02/2018 3:10 PM 019 Unknown EST 10:39 PM EST Laurie Elias NP LAB BLOOD ORDERABLES Performing Organization Address City/State/ZIP Code Phon e Number [employer] [address] [phone] [place] [address] [address] [employer] [address] [place] [address] [address] [address] [phone] Diagnost (ABNORMAL) Basic metabolic panel (03/02/2018 3:10 PM EST) athologist Signature Glucose 106 (H) 65 - 99 [facility] mg/dL [place] [facility]ITE[facility] Comment: ? Fasting reference interv al For someone without known diabetes, a gl ucose value between 100 and 125 mg/dL is consistent with prediabetes and should be confirmed with a follow-up test. Bun 11 7 - 25 mg/dL [facility] [place] [facility] Creatinine, Ser 0.67 0.60 - 0.93 mg/dL [employer] [place] [facility] Comment: For patients >49 years of age, the refer ence limit for Creatinine is approximately 13% high er for people identified as -Palauan. eGFR NON-AFR. 88 > OR = 60 mL/min/1.73m2 Qu est Diagnostics [facility] Diagn[facility] eGFR 102 > OR = 60 mL/min/1.73m2 Que st Diagnostics [facility] [employer] [facility] BUN/Creatinine NOT APPLICABLE 6 - 22 (calc) [facility] Ratio [place] [facility] Sodium 138 135 - 146 mmol/L [facility] [place] [facility] Potassium 4.0 3.5 - 5.3 mmol/L [facility] [place] [facility] Chloride 102 98 - 110 mmol/L [facility] [place] [facility] CO2 28 20 - 32 mmol/L [facility] Diagnosti cs [place] [facility] Calcium 9.9 8.6 - 10.4 mg/dL [facility] [place] [facility] Specimen Anatomical Collection Method Collection Time Receive d Time (Source) Location / / Volume Laterality Blood Venous blood / 03/02/2018 3:10 PM 019 Unknown EST 10:39 PM EST Laurie Elias NP LAB BLOOD ORDERABLES Performing Organization Address City/State/ZIP Code Phon e Number [facility] [employer] [address] [phone] [place] [address] B [employer] [address] [place] [address] [address] [phone] Diagnost documented in this encounter Visit Diagnoses Diagnosis Diverticulitis - Primary Diverticulitis of colon (without mention of hemorrhage) Lower abdominal pain Abdominal pain, other specified site Diverticulitis Diverticulitis of colon (without mention of hemorrhage) Lower abdominal pain Abdominal pain, other specified site documented in this encounter Care Teams Public Health Nutritionist Relationship Specialty Start Date End Date Laurie Elias NP PCP - General Family Medicine 03/02/1811/19/19 documented as of this encounter
--- OUTSIDE RECORDS SUMMARY | 2021-11-06 15:56 | XMS_ITS | Encounter Summary ---
:1945 Author Organization [facility] Address [address] [facility], [address] [place] [address] Care Team Providers Name Role Phone Lisa [...] Office Visit Family Medicine Kevin Miranda MD [facility] [place], [place] [address] (Wo rk) documented as of this encounter Visit Diagnoses Not on filedocumented in this encounter Care Teams Managing Consultant Relationship Specialty Start Date End Date Lisa Sotelo MD PCP - General Family Medicine 08/19/16 03/01/[address] [place] [address] documented as of this encounter
--- OUTSIDE RECORDS SUMMARY | 2021-11-06 15:56 | XMS_ITS | Encounter Summary ---
:1945 Author Organization [facility] Address 330 [facility], [address] [place] [address] Care Team Providers Name Role Phone Elba Mariano MD Primary Care Provider Reason for Visit Reason Comments Test Follow-up Encounter Details Date Type Department Care Team Description 12/06/2016 Office Visit Elba Newton, Chronic obstructive pulmonary disease, unspecified COPD type (CMS/HCC) (Primary Dx); Practice MD Sleep disorder; [address] Anxiety; [place] [address] [place] Other emphysema ([facility]) [phone] Social History Tobacco Use Types Packs/Day Years [...] Visit Family Medicine Kevin Miranda MD [address] [place], [place] [address] (Wo rk) documented as of this encounter Visit Diagnoses Diagnosis Chronic obstructive pulmonary disease, u nspecified COPD type ([facility]) - Primary Sleep disorder Unspecified sleep disturbance Anxiety Anxiety state, unspecified Other emphysema ([facility]) Other emphysema documented in this encounter Care Teams Paving Supervisor Relationship Specialty Start Date End Date Elba Mariano MD PCP - General Family Medicine 08/19/16 03/01/18 [address] [place] [address] documented as of this encounter
--- OUTSIDE RECORDS SUMMARY | 2021-11-06 15:56 | XMS_ITS | Encounter Summary ---
:1945 Author Organization [facility] Address [address] [facility], [address] [place] [address] Care Team Providers Name Role Phone Lisa Sotelo MD Primary Care Provider Encounter Details Date Type Department Care Team Description 01/31/2018 Refill [facility] Yessy Gee, [address] [place] [address] [place] [address] [place], [place] [address] (Wo rk) Social History [...] Visit Family Medicine Kevin Miranda MD [address] [place] [address] (Wo rk) documented as of this encounter Visit Diagnoses Not on filedocumented in this encounter Care Teams Humanities Coordinator Relationship Specialty Start Date End Date Lisa Sotelo MD PCP - General Family Medicine 08/19/16 03/01/18 [address] [place] [address] documented as of this encounter
--- OUTSIDE RECORDS SUMMARY | 2021-11-06 15:56 | XMS_ITS | Encounter Summary ---
:1945 Author Organization [facility] Address [address] [facility], [address] [place] [address] Care Team Providers Name Role Phone Lisa Sotelo MD Primary Care Provider Reason for Referral Diagnostic Imaging (Routine) - Closed Specialty Diagnoses / Procedures Referred By Contact Refer red To Contact Diagnoses Chronic pain of left knee Nawaf Jason MD Procedures X-ray Knee 3 Views Left [address] [place] [address] Referral ID Status Reason Start Date Expiration Date Visits Requ ested Visits Authorized [id number] Closed 06/13/2017 06/13/2018 1 1 Reason for Visit Diagnostic Imaging (Routine) - Closed Specialty Diagnoses / Procedures Referred By Contact Refer red To Contact Diagnoses Chronic pain of left knee Nawaf Jason MD Procedures X-ray Knee 3 Views Left [address] [place] [address] Referral ID Status Reason Start Date Expiration Date Visits Requ ested Visits Authorized [id number] Closed 06/13/2017 06/13/2018 1 1 Encounter Details Date Type Department Care Team Description 06/20/2017 Hospital Encounter [facility] Tolu Jason ed A, X-ray at [address] [facility] [address] [phone] (Wo rk) [address] [phone] Social History Tobacco Use Types Packs/Day Years [...] Visit Family Medicine Kevin Miranda MD [address] [place], [place] [address] (Wo rk) documented as [...] change. Dictated: 06/20/2017 4:16 PM Report ID: [id number] Report signed in external system at 06/20 16:16 Reported By: Wale Faustin M.D. (TAMICA P) Signed By: Wale Faustin M.D. (JACQUELINE) Narrative 06/20/2017 4:16 PM EDT RESPONSIBLE CREDIT RISK ANALYST: Wale Faustin M.D. EXAMINATION: XR KNEE 3 [...] might be different from the original. RESPONSIBLE CREDIT RISK ANALYST: Wale Faustin M.D. EXAMINATION: XR KNEE 3 [...] change. Dictated: 06/20/2017 4:16 PM Report ID: [id number] Report signed in external system at 06/20 16:16 Reported By: Wale Faustin M.D. (TAMICA P) Signed By: Wale Faustin M.D. (JACQUELINE) Nawaf Jason MD IMG XR PROCEDURES documented in this encounter Visit Diagnoses Diagnosis Chronic pain of left knee documented in this encounter Care Teams Flap Maker Relationship Specialty Start Date End Date Lisa Sotelo MD PCP - General Family Medicine 08/19/16 03/01/18 [address] [place] [address] documented as of this encounter
--- OUTSIDE RECORDS SUMMARY | 2021-11-06 15:56 | XMS_ITS | Encounter Summary ---
:1945 Author Organization [facility] Address [address] [facility], [address] [place] [address] Care Team Providers Name Role Phone Lisa Sotelo MD Primary Care Provider Encounter Details Date Type Department Care Team Description 08/15/2017 Scan Document - View [facility] Lisa Sotelo in [facility] [address] [place] [address] [place] [address] Social History Tobacco Use Types Packs/Day Years [...] Office Visit Family Medicine Kevin Miranda MD [address] [place] [address] (Wo rk) documented as of this encounter Visit Diagnoses Not on filedocumented in this encounter Care Teams Tailings Man Relationship Specialty Start Date End Date Lisa Sotelo MD PCP - General Family Medicine 08/19/16 03/01/[address] [place] [address] documented as of this encounter
--- OUTSIDE RECORDS SUMMARY | 2021-11-06 15:56 | XMS_ITS | Encounter Summary ---
:1945 Author Organization [facility] Address 330 [facility], [address] [place] [address] Care Team Providers Name Role Phone Lisa Sotelo MD Primary Care Provider Encounter Details Date Type Department Care Team Description 06/27/2017 Scan Document - View [facility] Lisa Sotelo, in Chart Practice [address] [place], [place] [address] [place], [place] [phone] [address] Social History Tobacco Use Types Packs/Day Years [...] Visit Family Medicine Kevin Miranda MD [address] [place] [address] (Wo rk) documented as of this encounter Visit Diagnoses Not on filedocumented in this encounter Care Teams Supply Person Relationship Specialty Start Date End Date Lisa Sotelo MD PCP - General Family Medicine 08/19/16 03/01/[address] [place] [address] documented as of this encounter
--- OUTSIDE RECORDS SUMMARY | 2021-11-06 15:56 | XMS_ITS | Encounter Summary ---
:1945 Author Organization [facility] Address [address] [facility], [address] [place] [address] Care Team Providers Name Role Phone Kevin Miranda MD Primary Care Provider Reason for Visit Reason Comments Med Refill Encounter Details Date Type Department Care Team Description 03/10/2017 Refill [facility] Lisa Gudino MD [address] [place] [address] [place] [address] [phone] (Wo rk) Social History Tobacco Use Types [...] Office Visit Family Medicine Kevin Miranda MD [address] [place] [address] (Wo rk) documented as of this encounter Visit Diagnoses Not on filedocumented in this encounter Care Teams Patient Insurance Clerk Relationship Specialty Start Date End Date Kevin Miranda MD PCP - General Family Medicine 11/20/[address] [place] [address] documented as of this encounter
--- OUTSIDE RECORDS SUMMARY | 2021-11-06 15:56 | XMS_ITS | Encounter Summary ---
:1945 Author Organization [facility] Address [address] [facility], [address] [place] [address] Care Team Providers Name Role Phone Laurie Elias NP Primary Care Provider Unavailable Reason for Visit Reason Onset Date Comments Abdominal Pain 03/02/2018 Encounter Details Date Type Department Care Team Description 03/02/2018 Telephone [facility], [facility] [address] [facility] [place], [place] [address] [place] [address] , [address] [place], [place] [address] (Wo rk) Social History Tobacco Use Types Packs/Day Years Used Date Former Smoker Smokeless Tobacco: Never Used Alcohol Use Standard Drinks/Week Comments Defer 0 (1 standard drink = 0.6 oz pure alcoho l) Sex Assigned at Date Recorded Female 04/12/2019 2:19 PM EST documented as of this encounter Miscellaneous Notes Telephone Encounter - Babatunde Morrison [place] - 03/02/2018 11:31 AM EST Pt has diverticulosis, she's experiencing abd pain/discomfort, wants advice. 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 Gorman) she has fever feels much worse compared to this morning. documented in this encounter Plan of Treatment Upcoming Encounters Date Type Specialty Care Team Description 11/30/2021 Office Visit Family Medicine Kevin Miranda MD [address] [facility] [place] [address] (Wo rk) documented as of this encounter Visit Diagnoses Not on filedocumented in this encounter Care Teams Banking Attorney Relationship Specialty Start Date End Date Laurie Elias NP PCP - General Family Medicine 03/02/1811/19/19 documented as of this encounter
--- OUTSIDE RECORDS SUMMARY | 2021-11-06 15:56 | XMS_ITS | Encounter Summary ---
:1945 Author Organization [facility] Address [address] [facility], [address] [place] [address] Care Team Providers Name Role Phone Lisa Sotelo MD Primary Care Provider Reason for Visit Reason Comments Sinusitis fever 101 last night Encounter Details Date Type Department Care Team Description 12/26/2017 [facility] Sotelo Diverti culitis (Primary Practice MD Dx) [address] [place] [address] [place] [address] [place], [place] [phone] Social History Tobacco Use Types Packs/Day Years [...] Visit Family Medicine Kevin Miranda MD [address] [place], [place] [address] (Wo rk) Scheduled Orders [...] Differential and Platelets) (12/26/2017 3:56 PM EST) [facility] gist Method Time Signature White Blood 13.0 (H) 3.8 - [facility] Count 10.8 Diagnostics [facility] [place] [facility] Red Blood Count 4.18 3.80 - [facility] 5.10 Diagnostics Million/u [place] [facility] Hemoglobin 13.2 11.7 - [facility] 15.5 g/dL [facility] [place] [facility] Hematocrit 37.9 35.0 - [facility] 45.0 % [facility] [place] [facility] MCV 90.7 80.0 - [facility] 100.0 fL [facility] [place] [facility] MCH 31.6 27.0 - [facility] 33.0 pg [facility] [place] [facility] MCHC 34.8 32.0 - [facility] 36.0 g/dL [facility] [place] [facility] MRDW 12.7 11.0 - [facility] 15.0 % [facility] [place] [facility] Platelet count 325 140 - 400 [facility] Thousand/ [facility] [place] [facility] MPV 10.5 7.5 - [facility] 12.5 fL [facility] [place] [facility] Absolute 10,127 1,500 - [facility] Neutrophil (H) 7,800 Diagnostics Count cells/uL [place] [facility] Lymphosytes 1,404 850 - [facility] absolute 3,900 Diagnostics cells/uL [place] [facility] Absolute 1,404 (H) 200 - 950 [facility] Monocyte count cells/uL [facility] [place] [facility] Absolute 26 15 - 500 [facility] Eosinophil cells/uL Diagnostics count [place] [facility] Lymphocyte 39 0 - 200 [facility] cells/uL [facility] [place] [facility] Neutrophils 77.9 % [facility] [place] [facility] Lymphocyte 10.8 % [facility] [place] [facility] Monocytes 10.8 % [facility] [place] [facility] Eosinophil 0.2 % [facility] [place] [facility] Basophil 0.3 % [facility] [place] [facility] Specimen Anatomical Collection Method Collection Time Receive d Time (Source) Location / / Volume Laterality 12/26/2017 3:56 PM 8 3:56 EST PM EST Lisa Sotelo MD LAB BLOOD ORDERABLES Performing Organization Address City/State/ZIP Code Phon e Number [employer] [address] [phone] [place] [address] B [email or web address] [address] [place] [address] [place] [address] [phone] Diagnost (ABNORMAL) Basic metabolic panel (12/26/2017 3:56 PM EST) athologist Signature Glucose 104 (H) 65 - 99 [facility] mg/dL [place] [facility] Comment: ? Fasting reference interv al For someone without known diabetes, a gl ucose value between 100 and 125 mg/dL is consistent with prediabetes and should be confirmed with a follow-up test. Bun 9 7 - 25 mg/dL [email or web address] [place] [facility] Creatinine, Ser 0.67 0.60 - 0.93 mg/dL [facility] [place] [facility] Comment: For patients >49 years of age, the refer ence limit for Creatinine is approximately 13% high er for people identified as -Malagasy. eGFR NON-AFR. 89 > OR = 60 mL/min/1.73m2 Qu est Diagnostics [facility] eGFR 103 > OR = 60 mL/min/1.73m2 Que st Diagnostics [facility] BUN/Creatinine NOT APPLICABLE 6 - 22 (calc) [facility] [place] [facility] Sodium 137 135 - 146 mmol/L [facility] [place] [facility] Potassium 4.0 3.5 - 5.3 mmol/L [facility] [place] [facility] Chloride 98 98 - 110 mmol/L [facility] [place] [facility] CO2 29 20 - 32 mmol/L [facility] Calcium 9.2 8.6 - 10.4 mg/dL [facility] [place] [facility] Specimen Anatomical Collection Method Collection Time Receive d Time (Source) Location / / Volume Laterality Blood Venous blood / 12/26/2017 3:56 PM 018 3:56 Unknown EST PM EST Lisa Sotelo MD LAB BLOOD ORDERABLES Performing Organization Address City/State/ZIP Code Phon e Number [employer] [address] [address] [place] [address], [address] [email or web address] [address] [place] [address] [employer] [address] [phone] Diagnost documented in this encounter Visit Diagnoses Diagnosis Diverticulitis - Primary Diverticulitis of colon (without mention of hemorrhage) documented in this encounter Care Teams Chin Strap Cutter Relationship Specialty Start Date End Date Lisa Sotelo MD PCP - General Family Medicine 08/19/16 03/01/[address] [place] [address] documented as of this encounter
--- OUTSIDE RECORDS SUMMARY | 2021-11-06 15:56 | XMS_ITS | Encounter Summary ---
:1945 Author Organization [facility] Address [address] [facility], [address] [place] [address] Care Team Providers Name Role Phone Lisa Sotelo MD Primary Care Provider Encounter Details Date Type Department Care Team Description 04/14/2017 Office Visit [facility] Lisa Sotelo MD Canceled (Error) Practice [address] [place] [address] [phone] (Wo rk) Social History Tobacco Use Types [...] Visit Family Medicine Kevin Miranda MD [address] [place] [address] (Wo rk) documented as of this encounter Visit Diagnoses Not on filedocumented in this encounter Care Teams Private Equity Analyst Relationship Specialty Start Date End Date Lisa Sotelo MD PCP - General Family Medicine 08/19/16 03/01/[address] [place] [address] documented as of this encounter
--- OUTSIDE RECORDS SUMMARY | 2021-11-06 15:56 | XMS_ITS | Encounter Summary ---
:1945 Author Organization [facility] Address 330 [facility], [address] [place] [address] Care Team Providers Name Role Phone Lisa Sotelo MD Primary Care Provider Encounter Details Date Type Department Care Team Description 01/20/2018 Travel Social History Tobacco Use Types Packs/Day [...] Office Visit Family Medicine Kevin Miranda MD [facility] [place], [place] [address] (Wo rk) documented as of this encounter Visit Diagnoses Not on filedocumented in this encounter Care Teams Machine Set Up Technician Relationship Specialty Start Date End Date Lisa Sotelo MD PCP - General Family Medicine 08/19/16 03/01/[address] [place] [address] documented as of this encounter
--- OUTSIDE RECORDS SUMMARY | 2021-11-06 15:56 | XMS_ITS | Encounter Summary ---
:1945 Author Organization [facility] Address [address] [facility], [address] [place] [address] Care Team Providers Name Role Phone Lisa [...] Office Visit Family Medicine Kevin Miranda MD [facility] [place], [place] [address] (Wo rk) documented as of this encounter Visit Diagnoses Not on filedocumented in this encounter Care Teams Spa Host Relationship Specialty Start Date End Date Lisa Sotelo MD PCP - General Family Medicine 08/19/16 03/01/[address] [place] [address] documented as of this encounter
--- OUTSIDE RECORDS SUMMARY | 2021-11-06 15:56 | XMS_ITS | Encounter Summary ---
:1945 Author Organization [facility] Address [address] [facility], [address] [place] [address] Care Team Providers Name Role Phone Lisa Sotelo MD Primary Care Provider Encounter Details Date Type Department Care Team Description 06/17/2017 Scan Document - View [facility] Lisa Sotelo, in Chart Practice [address] [place], [place] [address] [place], [place] [phone] Social History Tobacco Use Types Packs/Day Years [...] Office Visit Family Medicine Kevin Miranda MD [address] [place] [address] (Wo rk) documented as of this encounter Visit Diagnoses Not on filedocumented in this encounter Care Teams Warrant Clerk Relationship Specialty Start Date End Date Lisa Sotelo MD PCP - General Family Medicine 08/19/16 03/01/[address] [place] [address] documented as of this encounter
--- OUTSIDE RECORDS SUMMARY | 2021-11-06 15:56 | XMS_ITS | Encounter Summary ---
:1945 Author Organization [facility] Address [address] [facility], [address] [place] [address] Care Team Providers Name Role Phone Kevin Miranda MD Primary Care Provider Encounter Details Date Type Department Care Team Description 06/13/2017 Procedure [facility] [address] [place] [address] [phone] Social History Tobacco Use Types [...] Visit Family Medicine Kevin Miranda MD [address] [place] [address] (Wo rk) documented as of this encounter Visit Diagnoses Not on filedocumented in this encounter Care Teams Icing Machine Operator Relationship Specialty Start Date End Date Kevin Miranda MD PCP - General Family Medicine 11/20/[address] [place] [address] documented as of this encounter
--- OUTSIDE RECORDS SUMMARY | 2021-11-06 15:56 | XMS_ITS | Encounter Summary ---
:1945 Author Organization [facility] Address 330 [facility], [address] [place] [address] Care Team Providers Name Role Phone Lisa Sotelo MD Primary Care Provider Reason for Referral Diagnostic Imaging (Routine) - Closed Specialty Diagnoses / Procedures Referred By Contact Refer red To Contact Diagnoses Right hip pain Right groin pain Yasmine Shaw MD Procedures X-ray Hip 2-3 Views Right (Pelvis Optional) [employer] [facility] [address] [address] Referral ID Status Reason Start Date Expiration Date Visits Requ ested Visits Authorized [id number] Closed 07/22/2017 07/22/2018 1 1 Reason for Visit Diagnostic Imaging (Routine) - Closed Specialty Diagnoses / Procedures Referred By Contact Refer red To Contact Diagnoses Right hip pain Right groin pain Yasmine Shaw MD Procedures X-ray Hip 2-3 Views Right (Pelvis Optional) [facility] [employer] [facility] [employer] [employer] [place] [address] Referral ID Status Reason Start Date Expiration Date Visits Requ ested Visits Authorized [id number] Closed 07/22/2017 07/22/2018 1 1 Encounter Details Date Type Department Care Team Description 07/22/2017 Hospital Encounter [facility] Yasmine Shaw MD X-ray at [address] [place] [address] [facility] [address] [place], [place] [address], [address] [address] [phone] [place], [place] [address] (Li ni) Social History Tobacco Use Types Packs/Day Years [...] Visit Family Medicine Kevin Miranda MD [address] [place] [address] (Li ni) documented as of this encounter Procedures Procedure [...] change. Dictated: 07/22/2017 10:45 AM Report ID: [id number] Report signed in external system at 07/22 10:45 Reported By: Wale Faustin M.D. (TAMICA P) Signed By: Wale Faustin M.D. (TAMICAP) Narrative 07/22/2017 10:45 AM EDT RESPONSIBLE MARKETING PRODUCER: Wale Faustin M.D. EXAMINATION: XR HIP 2-3 [...] might be different from the original. RESPONSIBLE MARKETING PRODUCER: Wale Faustin M.D. EXAMINATION: XR HIP 2-3 [...] change. Dictated: 07/22/2017 10:45 AM Report ID: [id number] Report signed in external system at 07/22 10:45 Reported By: Wale Faustin M.D. (TAMICA P) Signed By: Wale Faustin M.D. (JACQUELINE) Yasmine Shaw MD IMG XR PROCEDURES documented in this encounter Visit Diagnoses Diagnosis Right hip pain Pain in joint, pelvic region and thigh Right groin pain Abdominal pain, right lower quadrant documented in this encounter Care Teams Stenographic Court Reporter Relationship Specialty Start Date End Date Lisa Sotelo MD PCP - General Family Medicine 08/19/16 03/01/18 [address] [place] [address] documented as of this encounter
--- OUTSIDE RECORDS SUMMARY | 2021-11-06 15:56 | XMS_ITS | Encounter Summary ---
:1945 Author Organization [facility] Address 330 [facility], [address] [place] [address] Care Team Providers Name Role Phone Lisa Sotelo MD Primary Care Provider Reason for Visit Reason Comments Annual Exam Encounter Details Date Type Department Care Team Description 03/17/2017 Office Visit Kaushik Sotelo, Screening for iron deficiency anemia (Primary Dx); Practice MD Lisa Routine adult health maintenance; [facility] [place] [address] [facility]; [place] [address] [place], [place] Screening for diabetes [facility]; [phone] Osteopenia, unspecified location; [phone] Other emphysema ([facility]); (Work) Insomnia, unspecified type; [phone] Gastroesophagea l reflux disease without esophagitis (Fax) [...] stress echo, but no results are in [facility]. She has had excellent lipids, with total [...] she has used it (Dr. Kelli Hansen [facility]). Doesn't cough a lot other [...] going on. Continue corestrengthening. She can see schedule hanger to discuss more sophisticated testing, should she [...] Visit Family Medicine Kevin Miranda MD [address] [facility] [place] [address] (Wo rk) documented as of [...] 13% high er for people identified as -[place]. eGFR NON-AFR. SWAZI 86 > OR = 60 mL/min/1.73m2 [facility] eGFR 100 > OR = 60 mL/min/1.73m2 [facility] Specimen Anatomical Collection Method Collection Time Receive d Time (Source) Location / / Volume Laterality Blood Venous blood / 03/18/2017 10:05 8 Unknown AM EST 10:05 AM EST Narrative [facility] - 03/18/2017 10:35 PM EST FASTING:YES FASTING: YES Resulting Agency Comment Performing Organization Information: ?Site ID: [id number] ?Name: [facility] ?Address: [address] [place] [address], [place] [address] ?Director: Carlin Gutierrez Lisa Sotelo MD LAB BLOOD ORDERABLES Performing Organization Address City/State/ZIP Code Phon e Number [facility] [address] [address] [place] [address] [address] Glucose, random (03/18/2017 10:05 AM [...] Performing Organization Information: ?Site ID: [id number] ?Name: [facility] [employer] [facility] ?Address: [address] [place] [phone] ?Director: Carlin Gutierrez Lisa Sotelo MD LAB BLOOD ORDERABLES Performing Organization Address [facility] Phon e Number [facility] [address] [address] [place] [address], [address] CBC (03/18/2017 10:05 AM EST) [...] Performing Organization Information: ?Site ID: [id number] ?Name: [facility] [employer] [facility] ?Address: [address] [place] [phone] ?Director: Carlin Gutierrez Lisa Sotelo MD LAB BLOOD ORDERABLES Performing Organization Address [facility] Phon e Number [employer] [address] [address] [place] [address], [address] documented in this encounter Visit Diagnoses Diagnosis Screening for iron deficiency anemia - P rimary Routine adult health maintenance Bandemia Screening for diabetes mellitus Osteopenia, unspecified location Other emphysema (CMS/HCC) Other emphysema Insomnia, unspecified type Gastroesophageal reflux disease without esophagitis Esophageal reflux documented in this encounter Care Teams Statistical Developer Relationship Specialty Start Date End Date Lisa Sotelo MD PCP - General Family Medicine 08/19/16 03/01/[address] [place] [address] documented as of this encounter
--- OUTSIDE RECORDS SUMMARY | 2021-11-06 15:56 | XMS_ITS | Encounter Summary ---
:1945 Author Organization [facility] Address [address] [facility], [address] [place] [address] Care Team Providers Name Role Phone Lisa Sotelo MD Primary Care Provider Reason for Visit Reason Comments Follow-up Encounter Details Date Type Department Care Team Description 03/31/2017 Office Visit Lisa Newton, Insomni a, unspecified type (Primary Dx); Practice MD Anxiety and depression; [address] Osteopenia, unspecified location; [place] [address] [facility] [phone] Social History Tobacco Use Types Packs/Day Years [...] to send back to [facility] in [place]. Osteopenia; Her own records say she always [...] note. I again suggested she see a safety leader [facility] to discuss more sophisticated testing. IN perusing old record, Dr. Trevizo had made the same suggestion 11/2015. addendum after patient had left. Perusal of old chart reveals that she was started on Qrhtwfyxhec45.5 mg dailyby psychopharmacologist in 2004 for depression. [...] Visit Family Medicine Kevin Miranda MD [address] [place], [place] [address] (Wo rk) documented as of this encounter Visit Diagnoses Diagnosis Insomnia, unspecified type - Primary Anxiety and depression Osteopenia, unspecified location Rosacea documented in this encounter Care Teams Global Director Air And Climate Change Relationship Specialty Start Date End Date Lisa Sotelo MD PCP - General Family Medicine 08/19/16 03/01/[address] [place] [address] documented as of this encounter
--- OUTSIDE RECORDS SUMMARY | 2021-11-06 15:56 | XMS_ITS | Encounter Summary ---
:1945 Author Organization [facility] Address 330 [facility], [address] [place] [address] Care Team Providers Name Role Phone Lisa Sotelo MD Primary Care Provider Encounter Details Date Type Department Care Team Description 11/19/2016 Refill [facility] Princess Doran NP [address] [address] [place] [address] [phone] Social History Tobacco Use Types Packs/Day Years Used Date Former Smoker Sex Assigned at Date Recorded Female 04/12/2019 2:19 PM EST documented as of this encounter Miscellaneous Notes Telephone Encounter - Princess Wynne NP - 11/19/2016 4:41 PM EDT Refill request for Clonazepam 0.5mg qd. Last prescription filled on 07/09/2016. I sent #7 tabs. We will call patient with regards to new office controlled substances policy and I will send a message to Lisa Sotelo MD, who is patient's PCP. documented in this encounter Plan of Treatment Upcoming Encounters Date Type Specialty Care Team Description 11/30/2021 Office Visit Family Medicine Kevin Miranda MD [address] [place], [place] [address] (Wo rk) documented as of this encounter Visit Diagnoses Not on filedocumented in this encounter Care Teams Field Health Officer Relationship Specialty Start Date End Date Lisa Sotelo MD PCP - General Family Medicine 08/19/16 03/01/18 [address] [place] [address] documented as of this encounter
--- OUTSIDE RECORDS SUMMARY | 2021-11-06 15:56 | XMS_ITS | Encounter Summary ---
:1945 Author Organization [facility] Address 330 [facility], [address] [place] [address] Care Team Providers Name Role Phone Lisa Sotelo MD Primary Care Provider Reason for Referral Diagnostic Imaging (Routine) - Closed Specialty Diagnoses / Procedures Referred By Contact Refer red To Contact Radiology Diagnoses Radiculopathy, lumbar region Nawaf Jason MD Procedures MRI Lumbar Spine without Contrast [address] [place] [address] Referral ID Status Reason Start Date Expiration Date Visits Requ ested Visits Authorized [id number] Closed 06/13/2017 06/13/2018 1 1 Reason for Visit Diagnostic Imaging (Routine) - Closed Specialty Diagnoses / Procedures Referred By Contact Refer red To Contact Radiology Diagnoses Radiculopathy, lumbar region Nawaf Jason MD Procedures MRI Lumbar Spine without Contrast [address] [place] [address] Referral ID Status Reason Start Date Expiration Date Visits Requ ested Visits Authorized [id number] Closed 06/13/2017 06/13/2018 1 1 Encounter Details Date Type Department Care Team Description 06/22/2017 Hospital Encounter [facility] Tolu Jason ed, MRI MD [address] [place] [phone] Social History Tobacco Use Types Packs/Day [...] Kevin Miranda MD [facility] [place], [place] [address] (Wo rk) documented as [...] flavum hypertrophy. ??Bilateral disc protrusions result in wlnw-go-vwylvkel right and mild left neural foraminal narrowing, [...] diverticulosis. Dictated: 06/22/2017 11:06 AM Report ID: [id number] Report signed in external system at 06/22 11:06 Reported By: Dusty Norwood M.D. (NATALIA) Signed By: Dusty Norwood M.D. (NATALIA) Narrative 06/22/2017 11:06 AM EDT RESPONSIBLE ELECTRICAL LINE SPLICER: Dusty Norwood M.D. EXAMINATION: MRI LUMBAR SPINE [...] stenosis. ??Bila teral disc protrusions result in kyml-vr-kfltqrhy right and mild left neural foraminal narrowing, [...] exiting right L5 nerve root. ??There is foee-qu-hstrrmwh encroachment of the left neural foramina, but without contact of the exiting left L5 nerve root. ??There is no significant narrowing of the spinal canal. Other: Fatty replacement of the paraspin ous musculature is noted at L4-L5 and L5-S1. Pelvic viscera are not evaluated. ??Sigm oid diverticulosis is noted. ??There is trace free pelvic fluid. Procedure Note Dusty Norwood MD - 06/22/2017 RESPONSIBLE ELECTRICAL LINE SPLICER: Dusty Norwood M.D. EXAMINATION: MRI LUMBAR SPINE [...] stenosis. Bilateral disc pr otrusions result in iiye-zp-bdtirgrj right and mild left neural foraminal narrowing, [...] exiting right L5 nerve root. There is msfu-mc-klutatjn encroachment o f the left neural foramina, [...] flavum hypertrophy. Bilateral disc protrusions result in uwbl-jg-vfwxfyxx right and mild left neural foraminal narrowing, [...] diverticulosis. Dictated: 06/22/2017 11:06 AM Report ID: [id number] Report signed in external system at 06/22 11:06 Reported By: Dusty Norwood M.D. (ANANTOS) Signed By: Dusty Norwood M.D. (NATALIA) Nawaf Jason MD [facility] PROCEDURES documented in this encounter Visit Diagnoses Diagnosis Radiculopathy, lumbar region Thoracic or lumbosacral neuritis or radi culitis, unspecified documented in this encounter Care Teams Roller Coaster Operator Relationship Specialty Start Date End Date Lisa Sotelo MD PCP - General Family Medicine 08/19/16 03/01/[address] [place] [address] documented as of this encounter
--- OUTSIDE RECORDS SUMMARY | 2021-11-06 15:56 | XMS_ITS | Encounter Summary ---
:1945 Author Organization [facility] Address 330 [facility], [address] [place] [address] Care Team Providers Name Role Phone JadaHeather velasquezecca ANN Primary Care Provider Unavailable Encounter Details Date Type Department Care Team Description 03/03/2018 Telephone [facility] Dallas zurita MD [facility] [address] [facility], [address] [facility] [address], [facility] [address] [place], [place] [address] [address] [phone] (Wo rk) Social History Tobacco Use Types Packs/Day Years Used Date Former Smoker Smokeless Tobacco: Never Used Alcohol Use Standard Drinks/Week Comments Defer 0 (1 standard drink = 0.6 oz pure alcoho l) Sex Assigned at Date Recorded Female 04/12/2019 2:19 PM EST documented as of this encounter Miscellaneous Notes Telephone Encounter - Dallas Gorman MD - 03/03/2018 4:51 PM EST I called the patient and she is undergoing a CT scan tonight for a presumptive diagnosis of acute diverticulitis. She is having significant nausea and she would like to minimize the amount Augmentin she is getting. I will call tomorrow and tell her what the CT demonstrated. WRB Telephone Encounter - Laura Mak MA - 03/03/2018 2:32 PM EST She would like to speak with you at your convenience today. documented in this encounter Plan of Treatment Upcoming Encounters Date Type Specialty Care Team Description 11/30/2021 Office Visit Family Medicine Kevin Miranda MD [address] [facility] [place] [address] (Wo rk) documented as of this encounter Visit Diagnoses Not on filedocumented in this encounter Care Teams Sliver Former Relationship Specialty Start Date End Date Laurie Elias NP PCP - General Family Medicine 03/02/1811/19/19 documented as of this encounter
--- OUTSIDE RECORDS SUMMARY | 2021-11-06 15:56 | XMS_ITS | Encounter Summary ---
:1945 Author Organization [facility] Address [address] [facility], [address] [place] [address] Care Team Providers Name Role Phone Kevin Miranda MD Primary Care Provider Reason for Referral Diagnostic Imaging (Routine) - Closed Specialty Diagnoses / Procedures Referred By Contact Refer red To Contact Diagnoses Right hip pain Right groin pain Yasmine Shaw MD Procedures X-ray Hip 2-3 Views Right (Pelvis Optional) [facility] [address] [facility], [place] [address] Referral ID Status Reason Start Date Expiration Date Visits Requ ested Visits Authorized [id number] Closed 07/22/2017 07/22/2018 1 1 Encounter Details Date Type Department Care Team Description 07/22/2017 Ancillary Orders [facility] Roxana Shaw MD Right hip pain; X-ray at 5 [facility] groin pain [facility] [address] [facility] [place], [place] [address] [facility], [address] [address] [phone] [place], [place] [address] (Wo rk) Social History [...] Office Visit Family Medicine Kevin Miranda MD [facility] [place], [place] [address] (Wo rk) documented as [...] change. Dictated: 07/22/2017 10:45 AM Report ID: [id number] Report signed in external system at 07/22 10:45 Reported By: Wale Faustin M.D. (TAMICA P) Signed By: Wale Faustin M.D. (ROGP) Narrative 07/22/2017 10:45 AM EDT RESPONSIBLE SECURITY SERVICES SPECIALIST: Wale Faustin M.D. EXAMINATION: XR HIP 2-3 [...] might be different from the original. RESPONSIBLE SECURITY SERVICES SPECIALIST: Wale Faustin M.D. EXAMINATION: XR HIP 2-3 [...] change. Dictated: 07/22/2017 10:45 AM Report ID: [id number] Report signed in external system at 07/22 [...] quadrant documented in this encounter Care Teams Rental Car Deliverer Relationship Specialty Start Date End Date Kevin Miranda MD PCP - General Family Medicine 11/20/19 [facility] [place] [address] documented as of this encounter
--- OUTSIDE RECORDS SUMMARY | 2021-11-06 15:57 | XMS_ITS | Encounter Summary ---
:1945 Author Organization [facility] Address 330 [facility], [address] [place] [address] Care Team Providers Name Role Phone Kevin Miranda MD Primary Care Provider Reason for Referral (Routine) - Closed Specialty Diagnoses / Procedures Referred By Contact Refer red To Contact Diagnoses COPD (chronic obstructive pulmonary disease) ([facility]) Lisa Sotelo MD Procedures Pulmonary function test [address] [place] [address] Referral ID Status Reason Start Date Expiration Date Visits Requ ested Visits Authorized [id number] Closed 08/18/2016 02/14/2017 1 1 Encounter Details Date Type Department Care Team Description 08/18/2016 Ancillary Orders [place] Lisa Sotelo, COPD ([facility] Non-Invasive MD obstructive pulmonary Cardiology [address] [place] [address]) ([facility]) [address] [phone] [address] (Work) [phone] Social History Tobacco Use Types Packs/Day Years Used Date Former Smoker Sex Assigned at Date Recorded Female 04/12/2019 2:19 PM EST documented as of this encounter Plan of Treatment Upcoming Encounters Date Type Specialty Care Team Description 11/30/2021 Office Visit Family Medicine Kevin Miranda MD [address] [place] [address] (Wo rk) documented as of this encounter Results FULL PFT WITH BRONCHODILATORS (11/23/2016 10:42 AM EDT) Specimen (Source) Anatomical Collection Method Collection Time Re ceived Time Location / / Volume Laterality 11/23/2016 9:56 AM EDT [facility] - 12/07/2016 2:27 PM EDT [...] Organization Address City/State/ZIP Code Phon e Number [facility] [address] [place] [address] documented in this encounter Visit Diagnoses Diagnosis COPD (chronic obstructive pulmonary dise ase) (CMS/HCC) Chronic airway obstruction, not elsewher e classified COPD (chronic obstructive pulmonary dise ase) (CMS/HCC) Chronic airway obstruction, not elsewher e classified documented in this encounter Care Teams Vest Tailor Relationship Specialty Start Date End Date Kevin Miranda MD PCP - General Family Medicine 11/20/19 [address] [place] [address] documented as of this encounter
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
--- OUTSIDE RECORDS SUMMARY | 2021-11-06 15:57 | XMS_ITS | Encounter Summary ---
:1945 Author Organization [facility] Address [address] [facility], [address] [place] [address] Care Team Providers Name Role Phone Laurie Elias M[employer]ICAN FOOD MAKER HAND Primary Care Provider Unavailable Encounter Details Date Type Department Care Team Description 04/13/1999 Orders Only [facility] Hieu Trevizo MD [address] [facility] [place] [address] Social History Tobacco Use Types Packs/Day Years Used Date Never Assessed Sex Assigned at Date Recorded Female 04/12/2019 2:19 PM EST documented as of this encounter Plan of Treatment Upcoming Encounters Date Type Specialty Care Team Description 11/30/2021 Office Visit Family Medicine Kevin Miranda MD [address] [place], [place] [address] (Wo rk) Scheduled Orders Name Type Priority Associated Diagnoses Order S chedule DEXA Bone Density Central Imaging Routine Or dered: 04/13/1999 documented as of this encounter Visit Diagnoses Not on filedocumented in this encounter Care Teams Director Automotive Relationship Specialty Start Date End Date Laurie Elias NP PCP - General Family Medicine 03/02/1811/19/19 documented as of this encounter
--- OUTSIDE RECORDS SUMMARY | 2021-11-06 15:57 | XMS_ITS ---
:1945 Author Care Team Providers Name Role Phone DR. MARILUZ VELEZ Primary Care Provider [phone] MARILUZ VELEZ Referring Provider [phone] Allergies Code Code System Name Reaction Severity [...] None recorded. ? ? Vitals 02/06/2019 10:45AM OP/ASSOCIATE PROFESSOR OF SURGERY Height Weight BMI 5 ft 7.5 in 130 lbs 20.1 kg/m2 12/25/2018 01:45PM ASSOCIATE PROFESSOR OF SURGERY 15 Height Weight BMI 5 ft 7.5 in 128 lbs 19.8 kg/m2
--- OUTSIDE RECORDS SUMMARY | 2021-11-06 15:57 | XMS_ITS ---
:1945 Author Care Team Providers Name Role Phone DR. ELBA MARIANO Primary Care Provider [phone] DR. ELBA MARIANO Referring Provider [phone] Allergies Code Code System Name Reaction Severity Status Onset Opioids - Morphine Analogues ? ? A ctive ? 71986 RxNorm Percocet ? ? Active ? Medications [...] topical cream Completed ? 1 03/07/2016 Fluvirin [id number] 45 mcg (15 mcg x 3)/0.5 mL [...]
--- OUTSIDE RECORDS SUMMARY | 2021-11-06 15:57 | XMS_ITS | Encounter Summary ---
:1945 Author Organization [facility] Address [address] [facility], [address] [place] [address] Care Team Providers Name Role Phone Lisa Sotelo MD Primary Care Provider Encounter Details Date Type Department Care Team Description 12/02/2003 Orders Only [facility] Hieu Trevizo MD [address] [place] [address] Social History Tobacco Use Types Packs/Day Years Used Date Never Assessed Sex Assigned at Date Recorded Female 04/12/2019 2:19 PM EST documented as of this encounter Plan of Treatment Upcoming Encounters Date Type Specialty Care Team Description 11/30/2021 Office Visit Family Medicine Kevin Miranda MD [address] [place] [address] (Wo rk) Scheduled Orders Name Type Priority Associated Diagnoses Order S chedule DEXA Bone Density Central Imaging Routine Or dered: 12/02/2003 documented as of this encounter Visit Diagnoses Not on filedocumented in this encounter Care Teams Reptile Keeper Relationship Specialty Start Date End Date Lisa Sotelo MD PCP - General Family Medicine 08/19/16 03/01/[address] [place] [address] documented as of this encounter
--- OUTSIDE RECORDS SUMMARY | 2021-11-06 15:57 | XMS_ITS | Encounter Summary ---
:1945 Author Organization [facility] Address [address] [facility], [address] [place] [address] Care Team Providers Name Role Phone Lisa Sotelo MD Primary Care Provider Encounter Details Date Type Department Care Team Description 09/20/2016 Abstract [facility] trista William, Plantar fasciitis; [address] [place] [address] ANN Krishnamurthy Osteoporosis; [place] [address] [place] [address] Oral candidiasis [phone] [place] [address] (Wo rk) Social History Tobacco Use Types Packs/Day Years Used Date Former Smoker Sex Assigned at Date Recorded Female 04/12/2019 2:19 PM EST documented as of this encounter Plan of Treatment Upcoming Encounters Date Type Specialty Care Team Description 11/30/2021 Office Visit Family Medicine Kevin Miranda MD [address] [place], [place] [address] (Wo rk) documented as of this encounter Visit Diagnoses Diagnosis Plantar fasciitis Plantar fascial fibromatosis Osteoporosis Unspecified osteoporosis Oral candidiasis Candidiasis of mouth documented in this encounter Care Teams Patent Agent Relationship Specialty Start Date End Date Lisa Sotelo MD PCP - General Family Medicine 08/19/16 03/01/18 [address] [place] [address] documented as of this encounter
--- OUTSIDE RECORDS SUMMARY | 2021-11-06 15:57 | XMS_ITS | Encounter Summary ---
:1945 Author Organization [facility] Address [address] [facility], [address] [place] [address] Care Team Providers Name Role Phone Lisa Sotelo MD Primary Care Provider Reason for Visit Reason Comments Abdominal Pain Encounter Details Date Type Department Care Team Description 08/28/2016 Emergency [place] [facility] Alphonso Badillo MD Department [address] [place] [address] [address] [place], [place] [address] [place] [address] [phone] Social History Tobacco Use Types Packs/Day Years [...] evaluated and treated primarily by the Physician Internet Sales Consultant (PA). The supervising Attending Physician did see and [...] right for you. Copyright Copyright ?? 2016 [employer]. and its affiliates and/or licensors. All rights [...] post ORIF of the left clavicle fracture [facility]. She is Dilaudid for the first 2 [...] 2016, 1:30 PM Alphonso Morton MD 08/28/16 7865 Alphonso Morton MD - 08/28/2016 1:04 PM EDT I have reviewed the patient's clinical presentation, history, and examination. In addition, I have interviewed and examined the patient. I agree with the PA's history and exam except as noted. I supervised the decision making process, including orders and disposition. MD Alphonso Rosa MD 08/28/16 5411 Helen Duenas RN - 08/28/2016 1:03 PM EDT Instructions reviewed with patient. Follow up appointment reviewed with patient. Prescription reviewed with patient. Patient verbalized understanding. IV removed. on the way to pick patient up and drive patient home. Helen Duenas RN 08/28/16 1304 Helen Duenas RN - 08/28/2016 11:31 AM EDT Patient returned from XR Up to to provide urine sample Helen [...] clavicle on 08/24/[address] Levy at [facility]. She states that this surgery was without [...] interpretation. Dictated: 08/28/2016 11:59 AM Report ID: [id number] Report signed in external system at 08/28/2016 [...] following orders were created for panel order [place] draw. Procedure Abnormality Status --------- ------ Gold Top[[id number]] Gold Top[[id number]] Light Blue Top[[id number]] Final result Lavender Top[[id number]] Red Top[[id number]] Please view results for these tests on [...] reach the coverage for patient's surgeon at [facility]. I spoke with this individual who states [...] home. Continue MiraLAX. Dulcolax suppository once daily. [id number] analgesia for pain, avoid opioid medications to [...] Kevin Miranda MD [facility] [place], [place] [address] (Wo rk) documented as [...] (08/28/2016 11:35 AM EDT) Analysis Performed At [facility] Time Signature URINE No 08/28/2016 [facility] SEDIMENTATION 12:27 PM HOSPITAL REQUIRED? EDT LABORATORY Color Light 08/28/2016 [facility] Yellow 12:27 PM HOSPITAL EDT LABORATORY SG 1.002 1.002 - 08/28/2016 [facility] 1.030 12:27 PM HOSPITAL EDT LABORATORY pH, Urine 7.0 5.0 - 8.0 08/28/2016 [facility] 12:27 PM HOSPITAL EDT LABORATORY Albumin Negative 08/28/2016 [facility] 12:27 PM HOSPITAL EDT LABORATORY Glucose Negative Negative 08/28/2016 [facility] 12:27 PM HOSPITAL EDT LABORATORY Ketones Negative Negative 08/28/2016 [facility] 12:27 PM HOSPITAL EDT LABORATORY Blood Negative Negative 08/28/2016 [facility] 12:27 PM HOSPITAL EDT LABORATORY Nitrite Negative Negative 08/28/2016 [facility] 12:27 PM HOSPITAL EDT LABORATORY Hyaline Casts 0 - 5 /LPF LAB 08/28/2016 [facility] URINALYSIS - 12:27 PM HOSPITAL AUTOMATED EDT LABORATORY METHOD Granular Casts 0 - 2 /[facility] LAB 08/28/2016 [facility] URINALYSIS - 12:27 PM HOSPITAL AUTOMATED EDT LABORATORY METHOD WBC CASTS None Seen LAB 08/28/2016 [facility] /[facility] URINALYSIS - 12:27 PM HOSPITAL AUTOMATED EDT LABORATORY METHOD RBC Casts None Seen LAB 08/28/2016 [facility] /[facility] URINALYSIS - 12:27 PM HOSPITAL AUTOMATED EDT LABORATORY METHOD Waxy Casts, None Seen LAB 08/28/2016 [facility] Urine /[facility] URINALYSIS - 12:27 PM HOSPITAL AUTOMATED EDT LABORATORY METHOD Fatty Casts None Seen LAB 08/28/2016 [facility] /[facility] URINALYSIS - 12:27 PM HOSPITAL AUTOMATED EDT LABORATORY METHOD WBC Clumps None Seen LAB 08/28/2016 [facility] /[facility] URINALYSIS - 12:27 PM HOSPITAL AUTOMATED EDT LABORATORY METHOD EPITH CELLS 0 - 5 /HPF LAB 08/28/2016 [facility] URINALYSIS - 12:27 PM HOSPITAL AUTOMATED EDT LABORATORY METHOD Renal Cells None Seen LAB 08/28/2016 [facility] /[facility] URINALYSIS - 12:27 PM HOSPITAL AUTOMATED EDT LABORATORY METHOD Amorphous None Seen LAB 08/28/2016 [facility] /[facility] URINALYSIS - 12:27 PM HOSPITAL AUTOMATED EDT LABORATORY METHOD Uric Acid None Seen LAB 08/28/2016 [facility] /[facility] URINALYSIS - 12:27 PM HOSPITAL AUTOMATED EDT LABORATORY METHOD Calcium Oxalate None Seen LAB 08/28/2016 [facility] Crystals /[facility] URINALYSIS - 12:27 PM HOSPITAL AUTOMATED EDT LABORATORY METHOD Triple Phosphate None Seen LAB 08/28/2016 [facility] Crystals /[facility] URINALYSIS - 12:27 PM HOSPITAL AUTOMATED EDT LABORATORY METHOD Calcium None Seen LAB 08/28/2016 [facility] Carbonate /[facility] URINALYSIS - 12:27 PM HOSPITAL Crystals AUTOMATED EDT LABORATORY METHOD Calcium None Seen LAB 08/28/2016 [facility] Phosphate /[facility] URINALYSIS - 12:27 PM HOSPITAL Crystals AUTOMATED EDT LABORATORY METHOD Cystine None Seen LAB 08/28/2016 [facility] /[facility] URINALYSIS - 12:27 PM HOSPITAL AUTOMATED EDT LABORATORY METHOD Leucine None Seen LAB 08/28/2016 [place] /[facility] URINALYSIS - 12:27 PM HOSPITAL AUTOMATED EDT LABORATORY METHOD Tyrosine None Seen LAB 08/28/2016 [place] /[facility] URINALYSIS - 12:27 PM HOSPITAL AUTOMATED EDT LABORATORY METHOD Mucous None Seen LAB 08/28/2016 [place] /[facility] URINALYSIS - 12:27 PM HOSPITAL AUTOMATED EDT LABORATORY METHOD Yeast Budding None Seen LAB 08/28/2016 [place] /[facility] URINALYSIS - 12:27 PM HOSPITAL AUTOMATED EDT LABORATORY METHOD Yeast Hyphae None Seen LAB 08/28/2016 [place] /[facility] URINALYSIS - 12:27 PM HOSPITAL AUTOMATED EDT LABORATORY METHOD Trichomonas None Seen LAB 08/28/2016 [place] /[facility] URINALYSIS - 12:27 PM HOSPITAL AUTOMATED EDT LABORATORY METHOD WBC esterase Negative 08/28/2016 [facility] 12:27 PM HOSPITAL EDT LABORATORY TURBIDITY Clear CLEAR 08/28/2016 [facility] 12:27 PM HOSPITAL EDT LABORATORY WBC 0 - 5 /HPF LAB 08/28/2016 [place] URINALYSIS - 12:27 PM HOSPITAL AUTOMATED EDT LABORATORY METHOD RBC 0 - 5 /HPF LAB 08/28/2016 [place] URINALYSIS - 12:27 PM HOSPITAL AUTOMATED EDT LABORATORY METHOD Unidentified None Seen LAB 08/28/2016 [place] Crystals URINALYSIS - 12:27 PM HOSPITAL AUTOMATED EDT LABORATORY METHOD Bile Negative 08/28/2016 [facility] 12:27 PM HOSPITAL EDT LABORATORY Specimen Anatomical Collection Method Collection Time Receive d Time (Source) Location / / Volume Laterality Urine Urine specimen Non-blood 08/28/2016 11:35 7 collection, clean Collection / AM EDT 11:39 AM E DT catch / Unknown Unknown Alphonso Morton MD LAB URINE ORDERABLES Performing Organization Address City/State/ZIP Code Phon e Number [facility] [address] [place] [address] LABORATORY X-ray Chest 2 Views (08/28/2016 11:34 [...] ation. Dictated: 08/28/2016 11:59 AM Report ID: [id number] Report signed in external system at 08/28 11:59 Reported By: Jeremiah Trevizo M.D. (resi dent) - PROVIDER ID: BHANU (BHANU) Signed By: Joshua Arora M.D. - PRO VIDER ID: [email or web address] ([email or web address]) Narrative 08/28/2016 11:59 AM EDT RESPONSIBLE SUPPLY PLANNER: Joshua Arora M.D. - PROVIDER ID: G [...] might be different from the original. RESPONSIBLE SUPPLY PLANNER: Joshua Arora M.D. - PROVIDER ID: G OLDRIC EXAMINATION: XR CHEST 2 VW CLINICAL INDICATION: [...] ation. Dictated: 08/28/2016 11:59 AM Report ID: [id number] Report signed in external system at 08/28 [...] Organization Address City/State/ZIP Code Phon e Number [address] [address] LABORATORY hCG, serum, qualitative (08/28/2016 10:47 AM EDT) Analysis Performed At Patho logist Time Signature HCG SERUM QUAL Negative Negative 08/28/2016 [place] 11:42 AM EDT [facility] LABORATORY Specimen Anatomical Collection Method / Collection Time Recei nancy Time (Source) Location / Volume Laterality Blood Venous blood / Venipuncture / 08/28/2016 10:47 017 Unknown Unknown AM EDT 10:57 AM EDT Alphonso Morton MD LAB BLOOD ORDERABLES Performing Organization Address City/State/ZIP Code Phon e Number [facility] [address] [place] [address] LABORATORY (ABNORMAL) CBC auto differential (08/28/2016 10:47 AM EDT) [facility] Method Time Signature WBC 16.49 (H) 4.0 - 08/28/2016 [place] 10.8 11:13 AM [facility] 10*3/uL LABORATORY nRBC 0 0 - 0 08/28/2016 [place] /100 WBCs 11:13 AM [facility] LABORATORY RBC 3.90 (L) 4.20 - 08/28/2016 [place] 5.40 11:13 AM [facility] 10*6/uL LABORATORY HGB 12.3 12.0 - 08/28/2016 [facility] 16.0 g/dL 11:13 AM [facility] LABORATORY HCT 36.3 35.0 - 08/28/2016 [place] 48.0 % 11:13 AM [facility] LABORATORY MCV 93.1 81.0 - 08/28/2016 [facility] 99.0 fL 11:13 AM [facility] LABORATORY MCH 31.5 26.0 - 08/28/2016 [place] 33.0 pg 11:13 AM [facility] LABORATORY MCHC 33.9 32.0 - 08/28/2016 [facility] 36.0 g/dL 11:13 AM [facility] LABORATORY PLT 337 150 - 350 08/28/2016 [facility] 10*3u/L 11:13 AM [facility] LABORATORY RDW-CV 14.2 11.5 - 08/28/2016 [place] 14.5 % 11:13 AM [facility] LABORATORY Segmented % 83.1 30.0 - 08/28/2016 [facility] 85.0 % 11:13 AM [facility] LABORATORY ABS Neutrophil 13.72 (H) 1.5 - 6.5 08/28/2016 [facility] 10*3/uL 11:13 AM [facility] LABORATORY Lymphocytes % 7.0 (L) 15.0 - 08/28/2016 [facility] 50.0 % 11:13 AM [facility] LABORATORY ABS Lymphocyte 1.15 1.0 - 3.7 08/28/2016 [facility] 10*3u/L 11:13 AM EDT HOSPITAL LABORATORY Monocytes % 8.7 0.0 - 08/28/2016 [facility] 10.0 % 11:13 AM EDT HOSPITAL LABORATORY Eosinophils % 0.5 % 08/28/2016 [facility] 11:13 AM EDT HOSPITAL LABORATORY Basophil % 0.4 0.0 - 2.0 08/28/2016 [facility] % 11:13 AM EDT HOSPITAL LABORATORY IMM GRAN 0.3 0.0 - 1.0 08/28/2016 [facility] % 11:13 AM EDT HOSPITAL LABORATORY Specimen Anatomical Collection Method / Collection Time Recei nancy Time (Source) Location / Volume Laterality Blood Venous blood / Venipuncture / 08/28/2016 10:47 017 Unknown Unknown AM EDT 10:54 AM EDT Alphonso Morton MD LAB BLOOD ORDERABLES Performing Organization Address City/[facility]/ZIP [facility] Phon e Number [place] [address] LABORATORY Lactic acid, plasma (08/28/2016 10:46 AM EDT) P athologist Signature LACTATE 1.3 0.7 - 2.1 08/28/2016 [facility] mmol/L 11:37 AM EDT HOSPITAL LABORATORY Specimen Anatomical Collection Method / Collection Time Recei nancy Time (Source) Location / Volume Laterality Blood Venous blood / Venipuncture / 08/28/2016 10:46 017 Unknown Unknown AM EDT 10:54 AM EDT Alphonso Morton MD LAB BLOOD ORDERABLES Performing Organization Address City/[facility] Phon e Number [address] [address] LABORATORY documented in this encounter Visit Diagnoses Diagnosis Elevated temperature - Primary Fever, unspecified Constipation, unspecified constipation t ype documented in this encounter Care Teams Barrel Cap Setter Relationship Specialty Start Date End Date Lisa Sotelo MD PCP - General Family Medicine 08/19/16 03/01/18 [address] [place] [address] documented as of this encounter
--- OUTSIDE RECORDS SUMMARY | 2021-11-06 15:57 | XMS_ITS | Encounter Summary ---
:1945 Author Organization [facility] Address [address] [facility], [address] [place] [address] Care Team Providers Name Role Phone Lisa Sotelo MD Primary Care Provider Encounter Details Date Type Department Care Team Description [facility]2016 [facility] [address] [place] [address], [address] [place] [address] [address] [facility] Ana M Bowen, [place] [address] Social History Tobacco Use Types Packs/Day Years Used Date Former Smoker Sex Assigned at Date Recorded Female 04/12/2019 2:19 PM EST documented as of this encounter Plan of Treatment Upcoming Encounters Date Type Specialty Care Team Description 11/30/2021 Office Visit Family Medicine Kevin Miranda MD [address] [place] [address] (Wo rk) documented as of this encounter Visit Diagnoses Not on filedocumented in this encounter Care Teams Kiln Operator Helper Relationship Specialty Start Date End Date Lisa Sotelo MD PCP - General Family Medicine 08/19/16 03/01/[address] [place] [address] documented as of this encounter
--- OUTSIDE RECORDS SUMMARY | 2021-11-06 15:57 | XMS_ITS ---
[...] Rt knee 03/10/2015 MRI, Shoulder [facility] [address] [address] (Work Place) 03/18/2015 Bone Density Study Information not avai lable 04/24/2015 MRI, Shoulder [facility] [place] [address] [place] [address] (Work Place) Results Lab Results [...]
[2021-11-06 16:42] LABS: Abs Immature Grans 0.01 10^3/uL (0.0-0.06); Absolute Basophil Count 0.11 10^3/uL (0.0-0.2); Absolute Eosinophil Count 0.38 10^3/uL (0.0-0.7); Absolute Lymphocyte Count 1.77 10^3/uL (1.2-3.4); Absolute Monocyte Count 0.93 10^3/uL (0.1-0.8); Absolute Neutrophil Count 3.92 10^3/uL (1.2-6.7); Basophils % 1.5; Eosinophils % 5.3; HCT 41.7 % (36.0-46.0); Immature Grans % 0.1; Lymphocytes % 24.9; MCH 30.9 pg (27.0-33.0); MCHC 33.6 % (32.0-36.0); MCV 92 fL (80-95); MPV 10.3 fL (8.0-11.0); Monocytes % 13.1; Neutrophils % 55.1; Platelet Count 339 10^3/uL (130-400); RBC 4.53 10^6/uL (3.93-5.22); RDW 13.5 % (11.7-14.6); RDW-SD 46.2 fL; WBC 7.12 10^3/uL (4.4-10.8)
== END 2021-11-06 15:45 | disposition home or self-care (01) ==
LOC: NCHCN 15:44
PROVIDERS: PCP Family Medicine; Visit Provider Family Medicine
DX: R10.32 Left lower quadrant pain (principal); R07.89 Other chest pain
CPT/HCPCS: 85025

== ENCOUNTER 2021-11-18 12:21 | Outpatient (REF) | payer MEDICARE, OTHER, SELFPAY ==
--- OUTSIDE RECORDS SUMMARY | 2021-11-18 12:23 | XMS_ITS | Encounter Summary ---
:1945 Author Organization [facility] [place] [address] Care Team Providers Name Role Phone Estee Diaz MD Primary Care Provider Encounter Details Date Type Department Care Team Description 03/17/2021 TH Visit [facility]opaed[facility] at [facility] tat post total (TeleHealth) MONAE Stafford replacement of right [address] [facility] [place] [place] [address] [address] [place] [id number] Social History Tobacco Use Types Packs/Day Years [...] similarly to an in-clinic office visit. Call: [phone] Date of Surgery: 12/16/20 Procedure: Right total [...] Encounters Date Type Specialty Care Team Description 12/21/2021 Office Visit Sports Medicine Juno Massey MD [address] [facility] [place] [address] (Wo rk) documented as of this encounter Visit Diagnoses Diagnosis Status post total replacement of right h ip documented in this encounter Care Teams Veneer Drier Tailer Relationship Specialty Start Date End Date Estee Diaz MD PCP - General Family Medicine 10/28/20 T[address] [place] [address] documented as of this encounter
--- OUTSIDE RECORDS SUMMARY | 2021-11-18 12:23 | XMS_ITS | Encounter Summary ---
:1945 Author Organization [facility] Address [address] [place] [address] Care Team Providers Name Role Phone Estee Diaz MD Primary Care Provider Reason for Referral Physical Therapy (Routine) - Closed Specialty Diagnoses / Procedures Referred By Contact Refer red To Contact Physical Therapy Diagnoses Other urinary incontinence Nish Chávez MD [facility] [address] [address] [place] [address] Fax: Referral ID Status Reason Start Date Expiration Date Visits V isits Requested Authorized [id number] Closed Evaluate and 06/10/2021 12/07/2021 12 12 Treat Reason for Visit Reason Comments Follow-up RT THR 12/16/2020 Encounter Details Date Type Department Care Team Description 06/10/2021 Office Visit Orthopaedics at Nish Herrera Othe r urinary incontinence (Primary Dx); Brett Pena MD Trochanteric bursitis of left hip; [address] Presence [place] [address] [phone] [place] [address] Social History Tobacco Use Types Packs/Day Years [...] right side, however she went to a residential construction instructor who showed her some stretches and [...] back at the 1 year anniversary. I Francesca Wilson am acting as scribe [...] MD [address] PRIMARY CARE [place], [place] [address] (Wo rk) Scheduled Referrals Name Type Priority [...] means documented in this encounter Care Teams Boat Designer Relationship Specialty Start Date End Date Estee Diaz MD PCP - General Family Medicine 10/28/20 [address]oni [address] [place] [address] documented as of this encounter
--- OUTSIDE RECORDS SUMMARY | 2021-11-18 12:23 | XMS_ITS | Encounter Summary ---
:1945 Author Organization [facility] [place] [address] Care Team Providers Name Role Phone Estee Diaz MD Primary Care Provider Encounter Details Date Type Department Care Team Description 06/10/2021 Ancillary Procedure Radiology XRay at Nish Chávez S tatus post total the Multi-Specialty MD replacement of right Clinic at [facility] [address] hip [address] [place] [address] [phone] Social History Tobacco Use Types Packs/Day Years [...] Sports Medicine Juno Massey MD [address] PRIMARY CARE [place], [place] [address] (Wo rk) documented as of this encounter [...] have questions please contact the health healthcare administrator that requested your imaging first. ? Electronically signed by: Ronald Tejeda MD , [facility] ([phone]), at 06/10/2021 2:10 PM Narrative 06/10/2021 2:10 [...] have questions please contact the health healthcare administrator that requested your imaging first. Nish Chávez MD IMG DX ORDERABLES documented in this encounter Visit Diagnoses Diagnosis Status post total replacement of right h ip documented in this encounter Care Teams Regional Facilities Manager Relationship Specialty Start Date End Date Estee Diaz MD PCP - General Family Medicine 10/28/20 [address] [facility] [address] [place] [address] documented as of this encounter
--- OUTSIDE RECORDS SUMMARY | 2021-11-18 12:23 | XMS_ITS | Clinical Summary ---
:1945 Author Organization [facility] [place] [address] Care Team Providers Name Role Phone Estee [...] mouth. 0 Active acids 500 mg Capsule [id number]-oreg Take by mouth. 0 Active -capryl 100 [...] 06/10/2021 2:02 PM EDT Plan of Treatment Upcoming Encounters Date Type Specialty Care Team Description 12/21/2021 Office Visit Sports Medicine Juno Massey MD [address] PRIMARY CARE [place], [place] [address] (Wo rk) Health Maintenance Due Date Last [...] 10/15/2021 series) Medical Devices Implanted Type Area Spooling Supervisor Device Shelf Model / Identifier Expiration Serial / Date Lot Head Femoral Hip 32mm -3mm Offset 01/27 Tpr Zircnm Oxinium ([id number]) (Autoreq) - [id number] IMPLANTS Right: [employer]W - 09/22/2030 [id number] / Implanted: Qty: 1 on 12/16/2020 by Nish Chávez MD at [facility] FERRIS NEPH / [id number] Insurance Payer Benefit Plan / Subscriber ID Effective Phone Address T ype Group Dates [facility] MEDICARE [id number] 2020-Prese [phone] [address] P[address]GRIM SUPPLEMENT [address] [place] [id number] MEDICARE MEDICARE PART A [id number] 2020-Prese [phone] [place] [id number] Advance Directives Documents on File Type Date Recorded Patient Child Development Specialist Explanati on Personal Child Development Specialist 11/04/2020 12:58 PM jeff choi Latest Code Status on File Code Status Date Activated Date Inactivated Comments Attempt Cardiopulmonary Resuscitation - 12/16/2020 9:24 AM 021 1:14 PM Inpatient Code Status decision made by: Patient Care Teams Chauffeur Relationship Specialty Start Date End Date Estee Diaz MD PCP - General Family Medicine 10/28/20 [address]oni [address] [place] [address]
--- OUTSIDE RECORDS SUMMARY | 2021-11-18 12:23 | XMS_ITS | Encounter Summary ---
:1945 Author Organization [place] [address] Care Team Providers Name Role Phone Estee Diaz MD Primary Care Provider Encounter Details Date Type Department Care Team Description 07/06/2021 Telephone Surgical Specialties at Gee Younger RN [facility] [place] [address] Social History Tobacco Use Types Packs/Day [...] prescribed antibiotics for any upcoming dental procedure. [place] [employer] Planned Dental Procedure: [...] Sports Medicine Juno Massey MD [address] PRIMARY CARE [place], [place] [address] (Wo rk) documented as of this encounter Visit Diagnoses Not on filedocumented in this encounter Care Teams Boat Rental Clerk Relationship Specialty Start Date End Date Estee Diaz MD PCP - General Family Medicine 10/28/20 [address] [place] [address] documented as of this encounter
--- OUTSIDE RECORDS SUMMARY | 2021-11-18 12:23 | XMS_ITS | Encounter Summary ---
:1945 Author Organization [facility] Address [address] [place] [address] Care Team Providers Name Role Phone Estee Diaz MD Primary Care Provider Encounter Details Date Type Department Care Team Description 05/27/2021 Orders Only Orthopaedics at Nish Herrera, Stat post total Newman Day replacement of right [address] hip (Primary Dx) [place] [address] [phone] [place] [address] Social History Tobacco Use Types Packs/Day Years [...] Massey MD [address] PRIMARY CARE [place], [place] [address] (Wo rk) documented as of this encounter Results XR Pelvis [...] who have questions please contact the health administrator health care facility that requested your imaging first. ? Narrative [...] ho have questions please contact the health administrator health care facility that requested your imaging first. Nish Chávez MD IMG DX ORDERABLES documented in this encounter Visit Diagnoses Diagnosis Status post total replacement of right h ip - Primary Status post total replacement of right h ip documented in this encounter Care Teams Paralegals Relationship Specialty Start Date End Date Estee Diaz MD PCP - General Family Medicine 10/28/20 [address]oni [address] [place] [address] documented as of this encounter
--- OUTSIDE RECORDS SUMMARY | 2021-11-18 12:23 | XMS_ITS | Encounter Summary ---
:1945 Author Organization [facility] [place] [address] Care Team Providers Name Role Phone Estee Diaz MD Primary Care Provider Reason for Visit Reason Onset Date Comments Other 06/15/2021 US guided hip inject ion Encounter Details Date Type Department Care Team Description 06/15/2021 Telephone Orthopaedics at Lakeisha Hawley O ther (US guided hip West Day RN injection) [facility] [place] [address] Social History Tobacco Use Types Packs/Day [...] PM Caller: Molly Rios 1945 Telephone Information: [phone] (home) Problem/Question: The patient left a message [...] MD [address] PRIMARY CARE [place], [place] [address] (Wo rk) documented as of this encounter Visit Diagnoses Not on filedocumented in this encounter Care Teams Cyber Instructor Relationship Specialty Start Date End Date Estee Diaz MD PCP - General Family Medicine 10/28/20 [address] [place] [address] documented as of this encounter
--- OUTSIDE RECORDS SUMMARY | 2021-11-18 12:24 | XMS_ITS | Encounter Summary ---
:1945 Author Organization [facility] [place] [address] Care Team Providers Name Role Phone Estee [...] Expiration Date Visits Requ ested Visits Authorized [id number] 1 1 Encounter Details Date Type Department Care Team Description 12/16/2020 Ancillary Procedure Radiology Xray at [facility] [place] [address] Social History Tobacco Use Types Packs/Day [...] Visit Sports Medicine Juno Massey MD [address] [facility] [address] Y PRIMARY CARE [place], [place] [address] (Wo rk) documented as of [...] on filedocumented in this encounter Care Teams Sheet Music Salesperson Relationship Specialty Start Date End Date Estee Diaz MD PCP - General Family Medicine 10/28/20 [address] [place] [address] documented as of this encounter
--- OUTSIDE RECORDS SUMMARY | 2021-11-18 12:24 | XMS_ITS | Encounter Summary ---
:1945 Author Organization [facility] Address [address] [facility] [address] [place] [address] Care Team Providers Name Role Phone Estee [...] Expiration Date Visits Requ ested Visits Authorized [id number] 1 1 Encounter Details Date Type Department Care Team Description 12/16/2020 Surgery Operating Room Nish Herrera MD TOTAL HIP ARTHROPLASTY, West Day [address] Day ANTERIOR APPROACH ([facility] [address]) [place] [address] [place] [address] [phone] Social History Tobacco Use Types Packs/Day Years [...] - 12/17/2020 9:55 AM EDT [address] [facility] Discharge Summary Admit date: [...] medication that you were doing while at [facility]. Be sure to understand your pain medication plan before you leave the hospital and remember to grape picker all prescriptions at the pharmacy. DVT PROPHYLAXIS: [...] 11:30 AM Mari Sandoval PA Orthopaedics at [facility] Arrive at: [facility] Level 02/20/2021 1:00 PM Mari Sandoval PA Orthopaedics at [facility] Arrive at: [facility] Level Future Orders Complete By Expires Referral to Home Health - at DISCHARGE [DPX6066 CPT(R)] As directed Process Instructions: Scheduling Instructions: Comments: DOCUMENTATION FOR VNA SERVICES (INCLUDING THOSE PATIENTS WITH MEDICARE COVERAGE REQUIRING HOME VNA SERVICES AND/OR HOSPICE SERVICES) PATIENT'S LOCATION: Molly Rios [address] [place] [address] (home) Cell: Telephone Information: Roentgenologist's Name: Medhat/Self In discussion with the attending physician, it is certified that this patient is under their care and that they, or a Nurse Practitioner,Clinical Nurse specialist or Physician Copying Machine Repairer who is working directly with them, had [...] for managing ADL's. HOME HEALTH CARE AGENCY: [facility] PHONE: [phone] FAX: [phone] Start of care: 24-48 hours post dc [...] patient'sPCP: MD Toni Suggs DR [address] / [facility] [address] All A agencies which cover the area of patient's residence have been reviewed, either verbally or in writing, and patient/family have chosen the home health care agency noted Questions: Agency name and contact information: [facility] Patient location post discharge: home What services are requested: Physical Therapy Occupational Therapy Start date: Responsible MD post discharge contact info: PCP Inpatient Provider Contact Information: For questions regarding this summary or this inpatient hospitalization, please call the [facility] Orthopedic Office at [phone]. MONAE Lindquist 12/17/2020 documented in this encounter [...] you leave the hospital and remember to grape picker all prescriptions at the pharmacy. DVT PROPHYLAXIS: [...] Sig Dispensed Refills Start Date End Date methylcellulose, with Take 1 packet by 0 Sugar, (Citrucel, mouth nightly. sucrose,) Powder doxepin (Sinequan) 10 mg TAKE 1 CAPSULE BY 0 06/1 09/2020 Capsule MOUTH AT BEDTIME calcium carbonate Take 2 tablets by 0 (CALCIUM 500 ORAL) mouth every morning. cholecalciferol, vitamin Take 1 capsule by 0 D3, (VITAMIN D3 ORAL) mouth every morning. polyethylene glycoL Take 17 g by mouth 0 (Miralax) 17 gram/dose daily as needed. Powder omeprazole (PriLOSEC) 20 TAKE ONE CAPSULE BY 0 06/10/2021 mg Capsule, Delayed MOUTH EVERY DAY FOR Release(E.C.) A MONTH THEN NEEDED WITH NSAIDS aspirin EC 81 mg Tablet, Take 1 [...] osteoarthritis of days following right hip surgery. documented as of this encounter Progress Notes [...] - 12/17/2020 9:[address] [facility] ORTHOPAEDIC PROGRESS NOTE Admit Date: 12/16/2020 [...] referrals are placed. Patient requests referral to [facility] [employer] [place]. PHONE: [phone] FAX: [phone] Expected date of discharge: 12/17/20 PT/OT CAREY Referral routed to the Customer Service Driver for matching with agency/vendor and to [...] Evaluation Leval of Eval Complexity: Low - 43360 Diagnosis: S/P right total hip arthroplasty; Dr. [...] H25.13 ??? Plantar fasciitis M72.2 ??? Problem [id number] ??? Routine adult health maintenance Z00.00 ??? [...] IADLs: Dressing Dressing: Lower Body, Upper Body Nca Certified Concierge Top: Modified Independent Underwear: Supervision, Verbal Cues, [...] Clinical Decision Making Complexity Score: Low - 55416 Rola Kaufman OT 12/16/2020 Occupational Therapy Rehabilitation [...] turn level surfaces using a FWW at [facility] Comments: Sit / Stand: Supervision, Assist of 1 Assistive Equipment: FWW Surfaces Used: bed Stairs: Assist of 1, Contact Guard Assistive Equipment: FWW Number of Stairs: 4 x 6 inch at [facility] using BUE handrails ( presented for education [...] x5 Hip Abduction / Adduction -- Ankle [place] x5 Seated Hip Flexion -- Knee Flexion [...] good functional mobility using a FWW at [facility] and is safe to discharge home with [...] Diversional Activities: smartphone television Pain Management Interventions: hcgbdz-qlt-etpxv dosing utilized cold applied Problem: Postoperative Nausea [...] care provider on file: Estee Diaz MD [phone] Advance Directive on file and Code Status: <no information>, Attempt Cardiopulmonary Resuscitation - Inpatient If AD's have not been completed Medhat would be surrogate decision maker per [place] surrogate decision making law. (Only good for 180 days) Any patient receiving care at [facility] must abide by [place] law. The hierarchy for surrogate decision making [...] (i) The agent with financial power of civil litigation attorney or a conservator appointed in accordance with RSA 464-A. (j) The guardian of the patient???s estate. Patient???s Functional Status:Pt states she is independent with all adls. She drives Living Situation:lives with in a 2 story home but living area all on first floor. 2 cats 3 DIOGENES Has fww [address] [facility] [address] Supports:family BH/Substance use: per pt Denies any [...] home via personal vehicle when medically ready. partnership marketing manager/Psychology Associate will continue to follow patient???s progress and remain available if situation changes for coordination of care, psychosocial support and/or discharge planning. Office of Care Management CM: Debbie Mejia RN Op Note - Nish Chávez MD - 12/16/2020 10:11 AM EDT [facility] Operative Note [facility] [address] [place] [address] Patient Name: Molly Rios : [id number] MR#: [id number] Case Date: 12/16/2020 Surgery Start Time: 1010 Surgery Stop Time: 1056 Date: 12/16/2020 Surgeon: Nish Chávez MD Copying Machine Repairer: MONAE Jessica Fundraising Manager: Manjit Tineo CRNA Anesthesia: Right Pre-operative diagnosis: Right hip osteoarthritis, severe Body mass index is 19.16 kg/m??. Post-operative diagnosis: Same Surgical Procedure Performed: Injection right hip with marcaine 0.25% with epi, 4 mg morphine, ketorolac 30 mg, and Solu-Medrol (40 mg) into skin, subcutaneous and deep tissues, and joint space. Right total hip arthroplasty, anterior Hueter approach with [place] table Right hip intraoperative radiologic examination Findings: [...] performed. Patient was positioned supine on the [place] table, both feet and ankles were padded [...] liner was placed and impacted according to bpm analyst's instructions. Any impinging osteophytes were removed. Attention [...] and laterally. At the same time, the family and divorce legal assistant leaned against the thigh to optimize [...] back to the hospital bed from the [place] table and boots wereremoved. No abduction pillow was placed. The patient returned to the recovery room in stable condition. The medical or surgical instrument maker, MONAE Jessica, worked under my direction for the duration of the operativesession. The family and divorce legal assistant meticulously prepped the operative site and maintained the best possible exposure of anatomy for the procedure for its duration. Implant Information: Implant Name Type Inv. Item Serial No. Senior Windows Engineer Lot No. LRB No. Used Action SHELL ACET HIP 50MM POR 3 HOLE TI R3 ([id number]) (AutoReq) - [id number] IMPLANTS SHELL ACET HIP 50MM POR 3 HOLE TI R3 ([id number]) (AutoReq) [employer] - CLEMENTS NEPH [id number] Right 1 Implanted LINER ACET HIP [id number] 0D POLY R3 ([id number]) (AutoReq) - [id number] IMPLANTS LINER ACET HIP [id number] 0D POLY R3 ([id number]) (AutoReq) [employer] - CLEMENTS NEPH [id number] Right 1 Implanted STEM FEMORAL HIP SZ 3 PROX 135D POR CLLR STND OFST TI ([id number]) (AutoReq) - [id number] IMPLANTS STEMFEMORAL HIP SZ 3 PROX 135D POR CLLR STND OFST TI ([id number]) (AutoReq) [employer] - CLEMENTS [id number] Right 1 Implanted HEAD FEMORAL HIP 32MM -3MM OFFSET 12/14 TPR ZIRCNM OXINIUM ([id number]) (AutoReq) - [id number] IMPLANTSHEAD FEMORAL HIP 32MM -3MM OFFSET 12/14 TPR ZIRCNM OXINIUM ([id number]) (AutoReq) [employer] - CLEMENTS NEPH [id number] Right 1 Implanted TG 0 RG 0 documented in this encounter Plan of Treatment Upcoming Encounters Date Type Specialty Care Team Description 12/21/2021 Office Visit Sports Medicine Juno Massey MD [address] PRIMARY CARE [place], [place] [address] (Wo rk) documented as of [...] City/State/ZIP Code Phon e Number LABORATORY [address] [place], [place] [address] (ABNORMAL) Differential, Automated (12/17/2020 6:59 AM EDT) [facility] Method Time Signature Neutrophils % 83.0 % LABORATORY Neutr Abs (ANC) 12.76 (H) 1.70 - DAY 6.10 LABORATORY x10(3)/mc L Lymphocytes % 6.6 % LABORATORY Lymphocytes Abs 1.0 0.9 - 3.2 DAY x10(3)/mc LABORATORY L Monocytes % 9.9 % LABORATORY [...] yielding IG's will be scanned manually for juan danyvonne. If this scan disagrees with the automated [...] City/State/ZIP Code Phon e Number LABORATORY [address] [place], [place] [address] (ABNORMAL) Hemogram (12/17/2020 6:59 AM EDT) P athologist Signature WBC 15.4 (H) 4.0 - 9.5 x10(3)/mcL LABORATORY RBC 3.96 (L) 4.00 - [...] City/State/ZIP Code Phon e Number LABORATORY [address] [place], [place] [address] (ABNORMAL) Basic Metabolic Panel (non-fasting) (12/17/2020 6:59 AM EDT) P athologist Signature Glucose Lvl 136 65 - 199 mg/dL LABORATORY Comment: Diabetes: >=200 mg/dL plus symp toms BUN 10 8 - 18 mg/dL LA BORATORY Creatinine 0.48 (L) 0.70 - 1.20 mg/dL LABORATORY Sodium 137 135 - 145 mmol/L Y LABORATORY Potassium 4.0 3.5 - 5.0 mmol/L Y LABORATORY Comment: Please note: ??Patients with [...] ABORATORY Calcium 9.2 8.5 - 10.5 mg/dL LABORATORY Estimated GFR 97 >=60 mL/min/1.73 m?? [...] City/State/ZIP Code Phon e Number LABORATORY [address] [place], [place] [address] XR Fluoro No Rad [...] Татьяна burks RN)0831 (Given - Provider: Jeanette Mckeon RN) 500 mg, Oral, EVERY 4 [...] Provider: Rosalia Pritchard RN)2322 (Given - Provider: аТтьяна Lundy RN) 0404 (Given - Provider: Татьяна [...] Patient/family refused)2044 (Given - Provider: Татьяна Lundy, RN) 0831 (Given - Provider: Jeanette rdz [...] Lundy, RN) 0900 (Given - Provider: Jeanette Mckeon, JANELL) 3 mL, Intravenous, EVERY 12 HOURS SCHEDU [...] bowel movement within 72 hours If multiple ND N bowel medications ordered, start with Miralax, [...]
Routine documented in this encounter Care Teams Pbx Operator Relationship Specialty Start Date End Date Estee Diaz MD PCP - General Family Medicine 10/28/[address] [place] [address] documented as of this encounter
--- OUTSIDE RECORDS SUMMARY | 2021-11-18 12:24 | XMS_ITS | Encounter Summary ---
:1945 Author Organization [facility] [place] [address] Care Team Providers Name Role Phone Estee Diaz MD Primary Care Provider Encounter Details Date Type Department Care Team Description 01/05/2021 Orders Only Orthopaedics at Nish Herrera, Stat us post right hip Newman MD replacement [address] 10 [facility] [place] [address] [phone] [place] [address] Social History Tobacco Use Types Packs/Day Years [...] [address] PRIMARY CARE [place], [place] [address] (Wo rk) documented as of [...] who have questions please contact the health child day care teacher that requested your imaging first. ? Narrative 01/16/2021 12:17 PM EST EXAMINATION: XR [...] ho have questions please contact the health child day care teacher that requested your imaging first. Nish Chávez MD IMG DX ORDERABLES documented in this encounter Visit Diagnoses Diagnosis Status post right hip replacement Hip joint replacement by other means Status post right hip replacement Hip joint replacement by other means documented in this encounter Care Teams Extractor Plant Operator Relationship Specialty Start Date End Date Estee Diaz MD PCP - General Family Medicine 10/28/20 [address] [facility] 1 [place] [address] documented as of this encounter
--- OUTSIDE RECORDS SUMMARY | 2021-11-18 12:24 | XMS_ITS | Encounter Summary ---
:1945 Author Organization [facility] [place] [address] Care Team Providers Name Role Phone Estee Diaz MD Primary Care Provider Encounter Details Date Type Department Care Team Description 01/16/2021 Ancillary Procedure Radiology XRay at Nish Chávez S tat post right the Multi-Specialty MD hip replacement Clinic at [facility] [address] [place] [address] Social History Tobacco Use Types Packs/Day Years [...] [address] PRIMARY CARE [place], [place] [address] (Wo rk) documented as of this encounter Procedures Procedure Name Priority Date/Time Associated Diagnosis Comme nts XR PELVIS AND LAT Routine 01/16/2021 11:14 AM Status post righ t Results for this HIP RIGHT EST [...] who have questions please contact the health urgent care technician that requested your imaging first. ? Electronically signed by: Jyoti Gutiérrez MD, [facility] ([phone]), at 01/16/2021 12:17 PM Narrative 01/16/2021 12:17 [...] ho have questions please contact the health urgent care technician that requested your imaging first. Electronically signed by: Jyoti Guti[facility]rez MD, [facility] ([phone]), at 01/16/2021 12:17 PM Nish Chávez MD IMG DX ORDERABLES documented in this encounter Visit Diagnoses Diagnosis Status post right hip replacement Hip joint replacement by other means documented in this encounter Care Teams Freezing Machine Operator Relationship Specialty Start Date End Date Estee Diaz MD PCP - General Family Medicine 10/28/[address] [facility] 1 [place] [address] documented as of this encounter
--- OUTSIDE RECORDS SUMMARY | 2021-11-18 12:24 | XMS_ITS | Encounter Summary ---
:1945 Author Organization [facility] [place] [address] Care Team Providers Name Role Phone Unavailable Primary Care Provider Unavailable Encounter Details Date Type Department Care Team Description 05/22/2020 Ancillary Procedure Radiology at [facility] Nish Chávez MD Helen [place] [address] [phone] [place], [place] [address] Social History Tobacco Use Types Packs/Day Years Used Date Never Assessed Sex Assigned at Date Recorded Not on file documented as of this encounter Plan of Treatment Upcoming Encounters Date Type Specialty Care Team Description 12/21/2021 Office Visit Sports Medicine Juno Massey MD [address] PRIMARY CARE [place], [place] [address] (Wo rk) documented as of [...] Time Received Time / Laterality Volume Narrative RAD - 07/16/2020 10:25 AM EDT This exam is auto-finalizing. It's purpo se is for storage only. Nish Chávez MD IMG FILM LIBRARY ORDERABLES Performing Organization Address City/State/ZIP Code Phon e Number RAD DH RAD [place], [place] documented in this encounter Visit Diagnoses Not on filedocumented in this encounter
--- OUTSIDE RECORDS SUMMARY | 2021-11-18 12:24 | XMS_ITS | Encounter Summary ---
:1945 Author Organization [facility] [place] [place] [address] Care Team Providers Name Role Phone Estee Diaz MD Primary Care Provider Reason for Visit Reason Comments Public Health Screening Encounter Details Date Type Department Care Team Description 12/12/2020 Clinical Support Primary Care at Helen [facility] [employer] for preprocedure screening 10 [place] [address] COVID-19 Social History Tobacco Use Types [...] [address] PRIMARY CARE [place], [place] [address] (Wo rk) documented as of this encounter Procedures Procedure Name Priority Date/Time Associated Diagnosis Comme nts COVID-19 PCR Routine 12/12/2020 1:00 PM Encounter for Results for this EDT preprocedure screening proce ngoc are in laboratory testing for the r esults COVID-19 section. documented in this encounter Results COVID-19 PCR (12/12/2020 1:00 PM EDT) [facility] Method Time Signature SARS-CoV-2 Not Detected Not Detected [facility] Comment: This result should be interpreted [...] diagnosis of COVID-19 is performed using the [employer] D[employer] [place] S-CoV-2 Assay as authorized by the FDA Emergency Use Authorization (EUA). This EUA assay is intended for In-vitro Diagnostic (IVD) use with respiratory sp ecimens such as nasopharyngeal swabs collected from individuals during the ac [place] phase of infection. This assay is performed based on the instructions for use provided by [employer] and additional guidance provided by CDC and FDA. Testing is performed in the Clinical Genomics and Advanced Technolog y Laboratory within the Department of Pathology and Laboratory Medicine at [facility], certified under the Clinical Laboratory Improvement [...] required or requested by public health [facility], positive specimens may be sent for additional [...] clinical management guidance information are available at [facility] Coronavirus Disease 2019 (COVID-19) webpage under Information fo r Healthcare Professionals (https://www.cdc.gov/coronavirus/2019-nc ov/hcp/index.html) Additional information about this and ot her EUA tests can be found in provider and patient fact sheets at the following FDA website: https://www.fda.gov/medical-devices/sdvewvnlujq-cfiznuw-2753-wmhwz-33-mvfujqfgu- apw-oycwoivhrlnjtd-qqxofcg-devices/rbqqq-jcbhshlyosk-wpdv SARS-Cov-2 RNA Source INHALATION THERAPY TEACHER Swab [facility] Specimen (Source) Anatomical Collection Method Collection Time Re ceived Time Location / / Volume Laterality Nasopharyngeal Swab 12/12/2020 1:00 12/12 PM EDT 5:42 PM EDT Comment: Symptoms->Asymptomatic Resulting Agency Comment Spec In Lab Jason Escalante MD MICROBIOLOGY - GENERAL ORDER VON Performing Organization Address City/State/[place] [address] documented in this encounter Visit Diagnoses Diagnosis Encounter for preprocedure screening lab oratory testing for COVID-19 documented in this encounter Care Teams Flue Tile Press Operator Relationship Specialty Start Date End Date Estee Diaz MD PCP - General Family Medicine 10/28/20 [address] [place] [address] documented as of this encounter
--- OUTSIDE RECORDS SUMMARY | 2021-11-18 12:24 | XMS_ITS | Encounter Summary ---
:1945 Author Organization [facility] [place] [address] Care Team Providers Name Role Phone Estee Diaz MD Primary Care Provider Encounter Details Date Type Department Care Team Description 01/16/2021 Office Visit Orthopaedics at Mari Reveles tatus post total replacement of right hip; MONAE Stafford Trochanteric bursitis of left hip; [address] [place] [address] [phone] [place], [place] [address] Social History Tobacco Use Types [...] the past. [facility]. I have also provided [...] MD 10 [address] Y PRIMARY CARE [place], [place] [address] (Wo rk) documented as of this encounter Visit Diagnoses Diagnosis Status post total replacement of right h ip Trochanteric bursitis of left hip Enthesopathy of hip region Acute pain of right knee documented in this encounter Care Teams Radiotelegraphist Relationship Specialty Start Date End Date Estee Diaz MD PCP - General Family Medicine 10/28/[address] [place] [address] documented as of this encounter
--- OUTSIDE RECORDS SUMMARY | 2021-11-18 12:24 | XMS_ITS | Encounter Summary ---
:1945 Author Organization [facility] [place] [address] Care Team Providers Name Role Phone Kevin Miranda MD Primary Care Provider Reason for Referral Consultation (Routine) - Closed Specialty Diagnoses / Procedures Referred By Contact Refer red To Contact Family Medicine Diagnoses Primary osteoarthritis of right hip Pain in right hip Pre-op exam Nish Chávez MD Kraus, Dana C, MD [address] [facility] [place] [address] [place] [address] Fax: Referral ID Status Reason Start Date Expiration Date Visits V isits Requested Authorized [id number] Closed Consult, 10/16/2020 04/14/2021 1 1 Test & Treat Encounter Details Date Type Department Care Team Description 10/16/2020 Orders Only Orthopaedics at Nish Herrera, Chantale arlette osteoarthritis of right hip; Brett Pena MD Pain in right hip; 10 [address] 10 Helen Newman Pre-op exam; [place] [address] Pre-op testing [phone] [place] [address] Social History Tobacco Use Types Packs/Day Years [...] MD [address] PRIMARY CARE [place], [place] [address] (Wo rk) Scheduled Referrals Name [...] 431 ms MUSE SYSTEM (Bezet) Calculated P [place] 75 degrees MUSE SYSTEM Calculated R [place] 36 degrees MUSE SYSTEM Calculated T [place] 60 degrees MUSE SYSTEM INTERPRETATION Sinus rhythm [...] Signature Glucose Lvl 95 65 - 199 DAY mg/dL LABORATORY Comment: Diabetes: >=200 mg/dL plus symp toms BUN 13 8 - 18 mg/dL HELEN [facility]MAN DAY LA [facility] Creatinine 0.61 (L) 0.70 - 1.20 mg/dL HELEN NEWMAN DAY [facility] Sodium 138 135 - 145 mmol/L [...] ABORATORY Calcium 9.8 8.5 - 10.5 mg/dL Y LABORATORY Total Protein 7.1 6.1 - 8.0 gm/dL HELEN NEWMAN [facility] Albumin 4.5 3.2 - 5.2 gm/dL LABORATORY AST 23 0 - 30 unit/L L ABORATORY ALT 16 0 - 30 unit/L L ABORATORY Alk Phos 88 35 - 105 unit/L LABORATORY Total Bilirubin 0.5 0.2 - 1.3 mg/dL LABORATORY Estimated GFR 90 >=60 mL/min/1.73 m?? LABORATORY Comment: This patient? [...] Code Phon e Number LABORATORY [address] [place], [place] [address] Staph aureus/MRSA Culture Screen Nasal (10/31/2020 12:00 PM EDT) Component Value Ref Test Analysis Performed At [facility] Range Method Time Signature Staphylococcus No Staphylococcus BLANCA Screening Culture aureus isolated [facility] Specimen Anatomical Collection Method Collection Time Receive d Time (Source) Location / / Volume Laterality Nasal 10/31/2020 12:00 10/31/2020 4:41 PM EDT PM EDT Resulting Agency Comment Spec In Lab Nish Chávez MD MICROBIOLOGY - GENERAL ORDER VON Performing Organization Address City/State/[place] [address] documented in this encounter Visit Diagnoses Diagnosis Primary osteoarthritis of right hip Primary localized osteoarthrosis, pelvic region and thigh Pain in right hip Pain in joint, pelvic region and thigh Pre-op exam Preoperative examination, unspecified Pre-op testing Preoperative examination, unspecified documented in this encounter Care Teams Depilatory Painter Relationship Specialty Start Date End Date Kevin Miranda MD PCP - General Family Medicine 06/30/20 10/27/[address] [place] [address] documented as of this encounter
--- OUTSIDE RECORDS SUMMARY | 2021-11-18 12:24 | XMS_ITS | Encounter Summary ---
:1945 Author Organization [facility] Address [address] [place] [address] Care Team Providers Name Role Phone Kevin Miranda MD Primary Care Provider Reason for Visit Reason Comments Right Hip Pain Consultation (Routine) - Closed Specialty Diagnoses / Procedures Referred By Contact Refer red To Contact Orthopaedics Diagnoses Rt Hip OA Nish Chávez MD Tomek, Ivan M, MD 10 [address] [place] [address] [place] [address] Fax: Referral ID Status Reason Start Date Expiration Date Visits V isits Requested Authorized [id number] Closed Evaluate and 06/30/2020 06/30/2021 1 1 Treat Encounter Details Date Type Department Care Team Description 07/16/2020 Office Visit Orthopaedics at Nish Herrera, Prim arlette osteoarthritis Brett Pena MD of right hip (Primary [address] Helen West [place]) [place] [address] [phone] [place] [id number] Social History Tobacco Use Types Packs/Day Years [...] at the request of Kevin Miranda MD [address] [place] [address] for evaluation of hip pain HPI: Molly [...] improvement . Physical Therapy : yes at [facility] with slight improvement . Joint Injections: no Imaging: right hip X-ray series were performed on 07/16/20 at [facility] The imaging was available and reviewed in [...] Thus far she has been taking mostly iaeo-ivn-owsdinr anti-inflammatory medication and has been doing some [...] years according to accelerated agingsimulation by the aoc director combat operations officer. I did point out to her that [...] MD [address] Y PRIMARY CARE [place], [place] [address] (Wo rk) documented as of this encounter Visit Diagnoses Diagnosis Primary osteoarthritis of right hip - Pr imary Primary localized osteoarthrosis, pelvic region and thigh documented in this encounter Care Teams Home Appliance Installer Relationship Specialty Start Date End Date Kevin Miranda MD PCP - General Family Medicine 06/30/20 10/27/20 [address] [place] [address] documented as of this encounter
--- OUTSIDE RECORDS SUMMARY | 2021-11-18 12:24 | XMS_ITS | Encounter Summary ---
:1945 Author Organization [facility] [place] [address] Care Team Providers Name Role Phone Estee Diaz MD Primary Care Provider Reason for Visit Reason Onset Date Comments Questions 12/29/2020 Encounter Details Date Type Department Care Team Description 12/29/2020 Telephone Orthopaedics at [facility] Robert Floyd, RN Questions 10 [place] [address] Social History Tobacco Use Types Packs/Day [...] AM Caller: Molly Rios 1945 Telephone Information: [phone] (home) Problem/Question: Patient is S/P right CAREY [...] MD [address] PRIMARY CARE [place], [place] [address] (Wo rk) documented as of this encounter Visit Diagnoses Not on filedocumented in this encounter Care Teams Table Games Dealer Relationship Specialty Start Date End Date Estee Diaz MD PCP - General Family Medicine 10/28/20 [address] [place] [address] documented as of this encounter
--- OUTSIDE RECORDS SUMMARY | 2021-11-18 12:24 | XMS_ITS | Encounter Summary ---
:1945 Author Organization [facility] [place] [address] Care Team Providers Name Role Phone Estee Diaz MD Primary Care Provider Encounter Details Date Type Department Care Team Description 12/15/2020 Orders Only Orthopaedics at Helen West Mari Vela PA [facility] [address] [place] [address] [phone] Social History Tobacco Use Types Packs/Day Years [...] MD 10 [address] Y PRIMARY CARE [place], [place] [address] (Wo rk) documented as of this encounter Visit Diagnoses Not on filedocumented in this encounter Care Teams Sign Maintenance Relationship Specialty Start Date End Date Estee Diaz MD PCP - General Family Medicine 10/28/20 [address] [place] [address] documented as of this encounter
--- OUTSIDE RECORDS SUMMARY | 2021-11-18 12:24 | XMS_ITS | Encounter Summary ---
:1945 Author Organization [facility] [place] [address] Care Team Providers Name Role Phone Estee Diaz MD Primary Care Provider Encounter Details Date Type Department Care Team Description 11/25/2020 TH Visit Orthopaedics at Robert [place] osteoarthritis (TeleHealth) Trent Schmidt RN of right hip 10 [place] [address] Social History Tobacco Use Types Packs/Day Years [...] Sports Medicine Juno Massey MD 10 [address] Y PRIMARY CARE [place], [place] [address] (Wo rk) documented as of this encounter Visit Diagnoses Diagnosis Primary osteoarthritis of right hip Primary localized osteoarthrosis, pelvic region and thigh documented in this encounter Care Teams Locksmith Apprentice Relationship Specialty Start Date End Date Estee Diaz MD PCP - General Family Medicine 10/28/[address] [place], [place] [address] [place] [address] documented as of this encounter
--- OUTSIDE RECORDS SUMMARY | 2021-11-18 12:24 | XMS_ITS | Encounter Summary ---
:1945 Author Organization [facility] [place] [address] Care Team Providers Name Role Phone Kevin Miranda MD Primary Care Provider Encounter Details Date Type Department Care Team Description 07/02/2020 Orders Only Orthopaedics at Nish Herrera, Pain in right hip Brett Pena MD (Primary Dx) [address] [place] [address] [phone] [place] [address] Social History Tobacco Use Types Packs/Day Years Used Date Former Smoker Smokeless Tobacco: Never Used Sex Assigned at Date Recorded Not on file documented as of this encounter Plan of Treatment Upcoming Encounters Date Type Specialty Care Team Description 12/21/2021 Office Visit Sports Medicine Juno Massey MD 10 [address] Y PRIMARY CARE [place], [place] [address] (Wo rk) documented as of this encounter Visit Diagnoses Diagnosis Pain in right hip - Primary Pain in joint, pelvic region and thigh documented in this encounter Care Teams Field Engineer Relationship Specialty Start Date End Date Kevin Miranda MD PCP - General Family Medicine 06/30/20 10/27/20 [facility] [place] [address] documented as of this encounter
--- OUTSIDE RECORDS SUMMARY | 2021-11-18 12:24 | XMS_ITS | Encounter Summary ---
:1945 Author Organization [facility] [place] [address] Care Team Providers Name Role Phone Estee Diaz MD Primary Care Provider Reason for Referral Physical Therapy (Routine) - Closed Specialty Diagnoses / Procedures Referred By Contact Refer red To Contact Diagnoses Primary osteoarthritis of right hip Pain in right hip Status post right hip replacement Nish Chávez MD Physical Therapy, [facility] 10 Helen bañuel[place] [address] [place] [address] ,[facility] 2 [place] [address] Phone: Fax: Referral ID Status Reason Start Date Expiration Date Visits V isits Requested Authorized [id number] Closed Evaluate and 12/23/2020 06/21/2021 12 12 Treat Encounter Details Date Type Department Care Team Description 12/23/2020 Orders Only Orthopaedics at Nish Herrera, Stat post right hip replacement (Primary Dx); Brett Pena MD Primary osteoarthritis of right hip; 10 [address] Pain [place] [address] [phone] [place] [address] Social History Tobacco Use Types Packs/Day Years [...] MD [address] PRIMARY CARE [place], [place] [address] (Wo rk) Scheduled Referrals Name [...] thigh documented in this encounter Care Teams Sanitary Landfill Operator Relationship Specialty Start Date End Date Estee Diaz MD PCP - General Family Medicine 10/28/20 [address] [place] [address] documented as of this encounter
--- OUTSIDE RECORDS SUMMARY | 2021-11-18 12:24 | XMS_ITS | Encounter Summary ---
:1945 Author Organization [facility] [place] [address] Care Team Providers Name Role Phone Estee Diaz MD Primary Care Provider Encounter Details Date Type Department Care Team Description 12/11/2020 Orders Only Primary Care at Laila Schmidt, En counter for RMA preprocedure screening 10 [place] [address] COVID-19 Social History Tobacco Use Types [...] Visit Sports Medicine Juno Massey MD [address] [facility] [address] [facility] [place], [place] [address] (Wo rk) documented as of this encounter Results COVID-19 PCR (12/12/2020 1:00 PM EDT) [facility] Method Time Signature SARS-CoV-[address] [facility] Comment: This result should be [...] diagnosis of COVID-19 is performed using the [employer] Vincent ARNOLD S-CoV-2 Assay as authorized by the FDA Emergency Use Authorization (EUA). This EUA assay is intended for In-vitro Diagnostic (IVD) use with respiratory sp ecimens such as nasopharyngeal swabs collected from individuals during the ac mary phase of infection. This assay is performed based on the instructions for use provided by [employer] and additional guidance provided by CDC and FDA. Testing is performed in the Clinical Genomics and Advanced Technolog y Laboratory within the Department of Pathology and Laboratory Medicine at [facility], certified under the Clinical Laboratory [...] management guidance information are available at e CDC Coronavirus Disease 2019 (COVID-19) webpage under Information fo r Healthcare Professionals (https://www.cdc.gov/coronavirus/2019-nc ov/hcp/index.html) Additional information about this and ot her EUA tests can be found in provider and patient fact sheets at the following FDA website: https://www.fda.gov/medical-devices/komcibuntck-ucwprqv-5356-rvqdm-98-uofhvwqnl- syo-pehscntvmlyjll-fqvriyv-devices/gmfbj-kicdewgszxo-ijyj SARS-Cov-2 RNA Source NURSING EDUCATOR Swab [facility] Specimen (Source) Anatomical Collection Method Collection Time Re ceived Time Location / / Volume Laterality Nasopharyngeal Swab 12/12/2020 1:00 12/12 PM EDT 5:42 PM EDT Comment: Symptoms->Asymptomatic Resulting Agency Comment Spec In Lab Jason Escalante MD MICROBIOLOGY - GENERAL ORDER VON Performing Organization Address City/State/ZIP [place] [address] documented in this encounter Visit Diagnoses Diagnosis Encounter for preprocedure screening lab oratory testing for COVID-19 documented in this encounter Care Teams Blower Insulator Relationship Specialty Start Date End Date Estee Diaz MD PCP - General Family Medicine 10/28/20 [address] [place] [address] documented as of this encounter
--- OUTSIDE RECORDS SUMMARY | 2021-11-18 12:24 | XMS_ITS | Encounter Summary ---
:1945 Author Organization [facility] [place] [address] Care Team Providers Name Role Phone Estee Diaz MD Primary Care Provider Reason for Visit Reason Onset Date Comments Questions 12/19/2020 Encounter Details Date Type Department Care Team Description 12/19/2020 Telephone Orthopaedics at [facility] Robert Floyd RN Questions [address] [facility] [place] [address] Social History Tobacco Use Types Packs/Day [...] EDT Telephone Call 12/19/2020 11:34 AM Caller: oMlly Rios 1945 Telephone Information: [phone] (home) Problem/Question: Patient returns call to clinic [...] symptoms worsen patient instructed to contact the conference specialist physician at the clinic. Patient expressed understanding of instructions and will contact clinic with further questions or concerns. Verena Hinojosa RN Telephone Encounter - Robert Genao RN - 12/19/2020 9:39 AM EDT Telephone Call 12/19/2020 9:39 AM Caller: Molly Soloan 1945 Telephone Information: [phone] (home) Problem/Question: Pricila is S/P right CAREY-DAA with Dr Chávez on 12/16/20. Patient called today stating she has a red streak from the medial thigh going lateral. Outcome: Patient denies any warmth at the site. Patient denies fever. Pricila will take a picture and send it through [facility]. Plan/Follow up: Patient will send picture. Will call when picture received. Patient will call with any other questions or concerns. Robert Genao RN documented in this encounter Plan of Treatment Upcoming Encounters Date Type Specialty Care Team Description 12/21/2021 Office Visit Sports Medicine Juno Massey MD [address] PRIMARY CARE [place], [place] [address] (Wo rk) documented as of this encounter Visit Diagnoses Not on filedocumented in this encounter Care Teams Hand Alterations Seamstress Relationship Specialty Start Date End Date Estee Diaz MD PCP - General Family Medicine 10/28/20 [address] [place] [address] documented as of this encounter
--- OUTSIDE RECORDS SUMMARY | 2021-11-18 12:24 | XMS_ITS | Encounter Summary ---
:1945 Author Organization [facility] [place] [address] Care Team Providers Name Role Phone Estee Diaz MD Primary Care Provider Encounter Details Date Type Department Care Team Description 10/31/2020 Laboratory Laboratory at [place] Primary osteoarthritis of right hip; Appointment Newman Day Pain in right hip; [address] [place] [id number] Social History Tobacco Use Types Packs/Day Years Used Date Former Smoker Quit: 1988 Smokeless Tobacco: Never Used Sex Assigned at Date Recorded Not on file documented as of this encounter Plan of Treatment Upcoming Encounters Date Type Specialty Care Team Description 12/21/2021 Office Visit Sports Medicine Juno Massey MD [address] [facility]ARE [place], [place] [address] (Wo rk) documented as of [...] (10/31/2020 12:00 PM EDT) Analysis Performed At [facility] Signature T&S only valid [facility] at LABORATORY Comment: This Type and Screen result is only valid at the [facility] Specimen Anatomical Collection Method Collection Time Receive d Time (Source) Location / / Volume Laterality Blood 10/31/2020 12:00 10/31/2020 2:10 PM EDT PM EDT Resulting Agency Comment Spec In Lab Nish Chávez MD BLOOD BANK ORDERABLES Performing Organization Address City/State/ZIP Code Phon e Number [facility] LABORATORY [address] [place], [place] [address] Antibody Screen Gel (APD/NLH) (10/31/2020 12:00 PM EDT) Analysis Performed At [facility] Signature AB Screen Negative [facility] Inter LABORATORY Specimen Anatomical Collection Method Collection Time Receive d Time (Source) Location / / Volume Laterality Blood 10/31/2020 12:00 10/31/2020 2:10 PM EDT PM EDT Resulting Agency Comment Spec In Lab Nish Chávez MD BLOOD BANK ORDERABLES Performing Organization Address City/State/ZIP Code Phon e Number LABORATORY [address] [place], [place] [address] ABORh type Gel (APD/NLH) (10/31/2020 12:00 PM EDT) [facility] Method Time Signature Expires at 11/03/2020 7639 on: LABORATORY ABORh Type O Pos LABORATORY Specimen Anatomical Collection Method Collection Time Receive d Time (Source) Location / / Volume Laterality Blood 10/31/2020 12:00 10/31/2020 2:10 PM EDT PM EDT Resulting Agency Comment Spec In Lab Nish Chávez MD BLOOD BANK ORDERABLES Performing Organization Address City/[facility] Code Phon e Number LABORATORY [address] [place], [place] [address] (ABNORMAL) Differential, Automated (10/31/2020 12:00 PM EDT) [facility] Method Time Signature Neutrophils % 56.5 % LABORATORY Neutr Abs (ANC) 3.88 1.70 - DAY 6.10 LABORATORY x10(3)/mcL Lymphocytes % 25.1 % LABORATORY Lymphocytes Abs 1.7 0.9 - 3.2 DAY x10(3)/mcL LABORATORY Monocytes % 9.3 % LABORATORY Monocyte Abs 0.6 0.3 - 0.9 DAY x10(3)/mcL LABORATORY Eosinophils % 7.9 % LABORATORY Eosinophils Abs 0.5 (H) 0.0 - 0.4 [facility] x10(3)/mcL LABORATORY Basophils % 1.2 % LABORATORY Basophils Abs 0.1 0.0 - 0.1 [facility] DAY x10(3)/mcL LABORATORY Immature Gran % 0.00 % [facility] LABORATORY Comment: Immature granulocytes(IG's)percentage an d absolute [...] Comment Spec In Lab Nish Chávez MD HEMATOLOGY ORDERABLES Performing Organization Address City/[facility] Phon e Number LABORATORY [address] [place], [place] [address] (ABNORMAL) Hemogram (10/31/2020 12:00 PM EDT) P athologist Signature WBC 6.9 4.0 - 9.5 DAY x10(3)/mcL LABORATORY RBC 4.51 4.00 - DAY 5.21 LABORATORY x10(6)/mcL Hemoglobin 14.1 11.7 - DAY 15.5 gm/dL LABORATORY Hematocrit 42.5 35.7 - DAY 45.8 % LABORATORY MCV 94.2 82.6 - 94.4 fL LABORATORY MCH 31.3 27.1 - DAY 32.0 pg LABORATORY MCHC 33.2 31.7 - DAY 35.0 gm/dL LABORATORY Platelets 296 145 - 357 x10(3)/mcL LABORATORY RDWSD 47.2 (H) 37.0 - 46.0 fL LABORATORY RDWCV 13.3 11.5 - DAY 14.1 % LABORATORY MPV 9.9 7.6 - 12.9 fL LABORATORY Specimen Anatomical Collection Method Collection Time Receive d Time (Source) Location / / Volume Laterality Blood 10/31/2020 12:00 10/31/2020 2:10 PM EDT PM EDT Resulting Agency Comment Spec In Lab Nish Chávez MD HEMATOLOGY ORDERABLES Performing Organization Address City/[facility] Phon e Number LABORATORY [address] [place], [place] [address] Staph aureus/MRSA Culture Screen Nasal (10/31/2020 12:00 PM EDT) Component Value Ref Test Analysis Performed At Patholo gist Range Method Time Signature Staphylococcus No Staphylococcus BLANCA Screening Culture aureus isolated [facility] LABORATORY Specimen Anatomical Collection Method Collection Time Receive d Time (Source) Location / / Volume Laterality Nasal 10/31/2020 12:00 10/31/2020 4:41 PM EDT PM EDT Resulting Agency Comment Spec In Lab Nish Chávez MD MICROBIOLOGY - GENERAL ORDER VON Performing Organization Address City/State/ZIP [place] [address] (ABNORMAL) Comprehensive metabolic panel (non-fasting) (10/31/2020 12:00 PM EDT) P athologist Signature Glucose Lvl 95 65 - 199 [address] DAY mg/dL LABORATORY Comment: Diabetes: >=200 mg/dL plus symp toms BUN 13 8 - 18 mg/dL LA BORATORY Creatinine 0.61 (L) 0.70 - 1.20 mg/dL [facility] LABORATORY Sodium 138 135 - 145 mmol/L [facility] Y LABORATORY Potassium 4.2 3.5 - [...] 27 22 - 31 mmol/L [facility] LABORATORY Anion Gap 10 5 - 15 mmol/L [facility] L ABORATORY Calcium 9.8 8.5 - 10.5 mg/dL [facility] LABORATORY Total Protein 7.1 6.1 - 8.0 gm/dL HELEN LABORATORY Albumin 4.5 3.2 - 5.2 gm/dL [facility] LABORATORY AST 23 0 - 30 unit/L [facility] L ABORAT[facility] ALT 16 0 - 30 unit/L HELEN L ABORATORY Alk Phos 88 35 - 105 unit/L [facility]OR[facility] Total Bilirubin 0.5 0.2 - 1.3 mg/dL HELEN CK DAY LABORATORY Estimated GFR 90 >=60 mL/min/1.73 m?? [...] City/State/ZIP Code Phon e Number LABORATORY [address] [place], [place] [address] documented in this encounter Visit Diagnoses Diagnosis Primary osteoarthritis of right hip Primary localized osteoarthrosis, pelvic region and thigh Pain in right hip Pain in joint, pelvic region and thigh Pre-op testing Preoperative examination, unspecified documented in this encounter Care Teams Puncher Relationship Specialty Start Date End Date Estee Diaz MD PCP - General Family Medicine 10/28/20 [address] [place] [address] documented as of this encounter
--- OUTSIDE RECORDS SUMMARY | 2021-11-18 12:24 | XMS_ITS | Encounter Summary ---
:1945 Author Organization [facility] [place] [address] Care Team Providers Name Role Phone Estee Diaz MD Primary Care Provider Reason for Visit Reason Onset Date Comments Follow-up 12/22/2020 low grade fever Encounter Details Date Type Department Care Team Description 12/22/2020 Telephone Orthopaedics at [facility] ow-up (low grade [place] Becky RN fever) [address] [place] [address] Social History Tobacco Use Types Packs/Day [...] AM Caller: Molly Rios 1945 Telephone Information: [phone] (home) Problem/Question: Patient contacted clinic relaying that [...] MD [address] PRIMARY CARE [place], [place] [address] (Wo rk) documented as of this encounter Visit Diagnoses Not on filedocumented in this encounter Care Teams Wool Hanker Relationship Specialty Start Date End Date Estee Diaz MD PCP - General Family Medicine 10/28/20 [address] [place] [address] documented as of this encounter
--- OUTSIDE RECORDS SUMMARY | 2021-11-18 12:24 | XMS_ITS | Encounter Summary ---
:1945 Author Organization [facility] [place] [address] Care Team Providers Name Role Phone Kevin Miranda MD Primary Care Provider Encounter Details Date Type Department Care Team Description 07/01/2020 Abstract Orthopaedics at [facility] Francesca Godoy LNA [facility] [address] Social History Tobacco Use Types Packs/Day [...] Visit Sports Medicine Juno Massey MD 10 [facility] [address] PRIMARY CARE [place], [place] [address] (Wo rk) documented as of this encounter Visit Diagnoses Not on filedocumented in this encounter Care Teams Mutual Fund Analyst Relationship Specialty Start Date End Date Kevin Miranda MD PCP - General Family Medicine 06/30/20 10/27/[address] [place] [address] documented as of this encounter
--- OUTSIDE RECORDS SUMMARY | 2021-11-18 12:24 | XMS_ITS | Encounter Summary ---
:1945 Author Organization [facility] [place] [address] Care Team Providers Name Role Phone Estee Diaz MD Primary Care Provider Encounter Details Date Type Department Care Team Description 10/29/2020 Notes Only Orthopaedics at [facility] Francesca Wilson LNA 10 [facility] [place] [address] Social History Tobacco Use Types Packs/Day Years Used Date Former Smoker Quit: 1988 Smokeless Tobacco: Never Used Sex Assigned at Date Recorded Not on file documented as of this encounter Plan of Treatment Upcoming Encounters Date Type Specialty Care Team Description 12/21/2021 Office Visit Sports Medicine Juno Massey MD 10 [employer] [address] [facility]IMARY [facility]ARE [place], [place] [address] (Wo rk) documented as of this encounter Visit Diagnoses Not on filedocumented in this encounter Care Teams Cook Specialty Relationship Specialty Start Date End Date Estee Diaz MD PCP - General Family Medicine 10/28/20 [address] [place] [address] documented as of this encounter
--- OUTSIDE RECORDS SUMMARY | 2021-11-18 12:24 | XMS_ITS | Encounter Summary ---
:1945 Author Organization [facility] [place] [address] Care Team Providers Name Role Phone Estee [...] Expiration Date Visits Requ ested Visits Authorized [id number] 1 1 Encounter Details Date Type Department Care Team Description 12/16/2020 Anesthesia Event Operating Room William Leger D, Day STERNMAN [address] [place] [address] ANESTHESIOLOGY [phone] [place], [place] [address] (Wo rk) Anesthesia Record Procedure Summary Procedure Name Responsible Anesthesia Start Anesthesia Stop Time Anesthesiologist Time TOTAL HIP Manjit Tineo STERNMAN 12/16/20 0938 12/16/20 1 100 ARTHROPLASTY, ANTERIOR [...] Schmidt RN Bagl ey, HARMAN Hernandez right; bcng-car-hmueli catheter system; Anatomical Landmarks; 20 gauge; FY; [...] Pain Level 0 12/16/20 1224 Patient Location: PACU/[facility] Level of Consciousness: Awake and Alert Pain [...] MD [address] PRIMARY CARE [place] [address] (Wo rk) documented as of this encounter [...] attempt s. ~~~~~~~~~~~~~~~~~~~~~~~~~~~~~~~~~~~~~~~~ ~~~~~~~~~~~~~~~~~~~~ Manjit Tineo CRNA JD [employer] CONSULTANT [facility] documented in this encounter Visit Diagnoses [...] Routine documented in this encounter Care Teams Insurance Professional Relationship Specialty Start Date End Date Estee Diaz MD PCP - General Family Medicine 10/28/20 [address] [place] [address] documented as of this encounter
--- OUTSIDE RECORDS SUMMARY | 2021-11-18 12:24 | XMS_ITS | Encounter Summary ---
:1945 Author Organization [facility] [place] [address] Care Team Providers Name Role Phone Estee Diaz MD Primary Care Provider Reason for Visit Reason Comments Follow-up Right CAREY Encounter Details Date Type Department Care Team Description 02/20/2021 Office Visit Orthopaedics at [facility] rochanteric bursitis MONAE Stafford of left hip 10 [facility] 10 [facility] [place] [address] [address] [phone] [place], [place] [address] Social History Tobacco Use Types [...] - Inhaled Oxygen Concentration - - Weight 57.2 kg (126 lb) 02/20/2021 1:08 PM EST Height 172.7 cm (5' 8) 02/20/2021 1:08 PM EST Body Mass Index 19.16 02/20/2021 1:08 PM EST documented in this encounter Progress Notes Mari Sandoval PA - 02/20/2021 1:00 PM EST Date of Surgery: 12/16/20 Procedure: Right total hip arthroplasty via direct anterior approach Molly Rios is a 76 y.o. female presents today for a second postoperative visit after undergoing a total hip arthroplasty with Dr. Chávez.She tells me that her right hip is recovering well. She continues to have lateral left hip pain. We discussed a trochanteric injection if her symptoms were notimproving. We tried to get her some Voltaren gel but this was not approved. She has been working on hip abductor strengthening. She tells me that she does have some ITB pain and has been stretching. Leg Length Discrepancy: Admits Review of Systems: Constitutional: Denies fever, chills, fatigue Cardiovascular: Denies chest pain Respiratory: Denies shortness of breath Gastrointestinal: Denies nausea, vomiting, diarrhea, constipation or abdominal pain Neurovascular: Denies numbness or tingling Musculoskeletal: Admits left hip pain, ITB pain Psychiatric: Mood and affect appropriate PHYSICAL EXAM: Well-appearing female in NAD. A&O x 3 and answers all questions appropriately. Easily gets up from a seated position. Normal gait. Left hip: No tenderness to palpation over [...] Minimal OA of the left hip. ASSESSMENT: 2 months s/p right total hip arthroplasty, left hip trochanteric bursitis PLAN: Ana Paula is a 75-year-old female who I am seeing today for a 2 month follow-up after a right total hip arthroplasty. Her right hip is doing well, she continues to have left lateral hip pain. She would like to try a trochnateric injection today with the expected outcome of decreased pain and inflammation.We discussed continuing hip abductor strengthening and she was provided with some ITB stretches. I will plan to see her back for her right hip follow up next month as scheduled. PROCEDURE NOTE: Left Greater Trochanteric Hip Injection A time out was performed per APD protocol. The patient confirmed that the injection was to be done on the left hip. The hip injection will be placed in the area of the greater trochanteric bursa. The patient was confirmed to have no allergies to betadine, local anesthetics, or corticosteroids. If diabetic, the patient was reminded that blood glucose can be transiently elevated by the corticosteroid injection. The patient was counseled about the potential risks of the procedure, including infection, bleeding, incomplete relief of symptoms, cartilage damage, and the theoretical risk of tendon rupturewith repeated injections. Left Hip: For the hip procedure, the patient was placed in a sidelying position. The area was cleaned with alchohol and betadine then sprayed with ethyl-chloride analgesic. The injection site was identified and injected with 40mg of Kenalog with 4mL of 0.5% Marcaine using a spinal needle under steriletechnique. The injection site was cleaned wiith a sterile 2x2 and a band-aid was applied. The patient tolerated the procedure well. There were no complications. Injection Procedure Instructions It is recommended that you refrain from any high level activities using the injected joint for 48 hours. There is a possibility of increased discomfort within 48 hours of the injection known as a steroid flare. If this happens, please decrease your activity level, ice and rest. The steroid may cause fluctuation in your blood sugars causing theme to elevate. If you are a diabetic pleases monitor your blood sugar levels closely over the next few days. Please call the office if you have any signs of an infection: redness, increased warmth, drainage, or fever over 100 degrees. documented in this encounter Plan of Treatment Upcoming Encounters Date Type Specialty Care Team Description 12/21/2021 Office Visit Sports Medicine Juno Massey MD [address] [facility]ARE [place], [place] [address] (Wo rk) documented as of this encounter Visit Diagnoses Diagnosis Trochanteric bursitis of left hip Enthesopathy of hip region documented in this encounter Administered Medications Inactive Administered Medications - up to 3 most recent administrations Medication Order MAR Action Action Date Dose Rate Site BUpivacaine (pf) (Marcaine) (5 Given 02/20/2021 1:42 PM EST 20 m g mg/mL) 0.5% injection 20 mg 20 mg (4 mL), Intrapleural, ONCE, 1 dose, On Tue02/20/21 at 1400, Routine triamcinolone acetonide (Kenalog-40) (40 Given 02/20/2021 1:43 P M EST 40 mg mg/mL) injection 40 mg 40 mg, Intramuscular, ONCE, 1 dose, On Tue02/20/21 at 1400, Routine documented in this encounter Care Teams Shipping Lead Person Relationship Specialty Start Date End Date Estee Diaz MD PCP - General Family Medicine 10/28/20 [address] [place] [address] documented as of this encounter
--- OUTSIDE RECORDS SUMMARY | 2021-11-18 12:24 | XMS_ITS | Encounter Summary ---
:1945 Author Organization [facility] [place] [address] Care Team Providers Name Role Phone Estee Diaz MD Primary Care Provider Reason for Visit Reason Onset Date Comments Follow-up 11/25/2020 Encounter Details Date Type Department Care Team Description 11/25/2020 Telephone Orthopaedics at [facility] Robert Mosqueda, RN Follow-up [address] [place] [address] Social History Tobacco Use Types Packs/Day Years Used Date Former Smoker Quit: 1988 Smokeless Tobacco: Never Used Sex Assigned at Date Recorded Not on file documented as of this encounter Miscellaneous Notes Telephone Encounter - Robert Genao RN - 11/25/2020 12:38 PM EDT Patient attended joint school today prior to Right CAREY-DAA scheduled for 12/16/[address] Chávez. All questions answered during presentation. Patient advised to call clinic with further questions orconcerns. documented in this encounter Plan of Treatment Upcoming Encounters Date Type Specialty Care Team Description 12/21/2021 Office Visit Sports Medicine Juno Massey MD [address] PRIMARY CARE [place], [place] [address] (Wo rk) documented as of this encounter Visit Diagnoses Not on filedocumented in this encounter Care Teams Manager Multimedia Relationship Specialty Start Date End Date Estee Diaz MD PCP - General Family Medicine 10/28/20 [address] [place] [address] documented as of this encounter
--- OUTSIDE RECORDS SUMMARY | 2021-11-18 12:24 | XMS_ITS | Encounter Summary ---
:1945 Author Organization [place] [address] Care Team Providers Name Role Phone Estee Diaz MD Primary Care Provider Reason for Visit Reason Comments Right Hip Pain consent signing Encounter Details Date Type Department Care Team Description 10/31/2020 Office Visit Orthopaedics at [facility] Prim ary osteoarthritis Brett Pena MD of right hip [address] [place] [address] [address] [phone] [place] [address] Social History Tobacco Use Types Packs/Day Years [...] and [facility]. - The consent was reviewed [...] (anakinra), Rituxan (rituximab). - Items to picking table worker and have at home for use after [...] number to reach you at after surgery: [phone] - You may shower the day after [...] MD [address] PRIMARY CARE [place], [place] [address] (Wo rk) documented as of this encounter Visit Diagnoses Diagnosis Primary osteoarthritis of right hip Primary localized osteoarthrosis, pelvic region and thigh documented in this encounter Care Teams Planishing Press Operator Relationship Specialty Start Date End Date Estee Diaz MD PCP - General Family Medicine 10/28/20 [address] [place] [address] documented as of this encounter
--- OUTSIDE RECORDS SUMMARY | 2021-11-18 12:24 | XMS_ITS | Encounter Summary ---
:1945 Author Organization [place] [address] Care Team Providers Name Role Phone Estee Diaz MD Primary Care Provider Encounter Details Date Type Department Care Team Description 12/29/2020 Telephone Orthopaedics at [facility] Robert Barnes RN [address] [place] [address] Social History Tobacco Use Types Packs/Day [...] Sports Medicine Juno Massey MD [address] PRIMARY CARE [place], [place] [address] (Wo rk) documented as of this encounter Visit Diagnoses Not on filedocumented in this encounter Care Teams Concrete Mixing Truck Driver Relationship Specialty Start Date End Date Estee Diaz MD PCP - General Family Medicine 10/28/20 [address] [place] [address] documented as of this encounter
--- OUTSIDE RECORDS SUMMARY | 2021-11-18 12:24 | XMS_ITS | Encounter Summary ---
:1945 Author Organization [facility] [place] [address] Care Team Providers Name Role Phone Estee Diaz MD Primary Care Provider Encounter Details Date Type Department Care Team Description 12/18/2020 Telephone Orthopaedics at [facility] Robert Genao, RN 10 [place] [address] Social History Tobacco Use Types Packs/Day [...] MD [address] PRIMARY CARE [place], [place] [address] (Wo rk) documented as of this encounter Visit Diagnoses Not on filedocumented in this encounter Care Teams Butcher Supervisor Relationship Specialty Start Date End Date Estee Diaz MD PCP - General Family Medicine 10/28/20 [address] [place] [address] documented as of this encounter
--- OUTSIDE RECORDS SUMMARY | 2021-11-18 12:24 | XMS_ITS | Encounter Summary ---
:1945 Author Organization [facility] Address [facility] [place] [address] Care Team Providers Name Role Phone Kevin Miranda MD Primary Care Provider Reason for Visit Reason Comments Right Hip Pain Encounter Details Date Type Department Care Team Description 09/10/2020 Office Visit Orthopaedics at [facility] hanteric bursitis Brett Pena MD of left hip (Primary [address] [place]) [place] [address] [address] [phone] [place] [address] Social History Tobacco Use Types Packs/Day Years [...] will schedule her for a throat plasty Trini Wilson am acting as scribe for [...] MD [address] PRIMARY CARE [place], [place] [address] (Wo rk) documented as of this encounter Visit Diagnoses Diagnosis Trochanteric bursitis of left hip - Prim arlette Enthesopathy of hip region documented in this encounter Care Teams Head Of Music Relationship Specialty Start Date End Date Kevin Miranda MD PCP - General Family Medicine 06/30/20 10/27/20 [address] [place] [address] documented as of this encounter
--- OUTSIDE RECORDS SUMMARY | 2021-11-18 12:24 | XMS_ITS | Encounter Summary ---
:1945 Author Organization [facility] Address [facility] [address] [place] [address] Care Team Providers Name Role Phone Estee [...] Expiration Date Visits Requ ested Visits Authorized [id number] 1 1 Encounter Details Date Type Department Care Team Description 12/16/2020 - Hospital Encounter Med Surg Unit at [facility] tus post total 12/17/2020 APD replacement of right [address] [place] [address] [address] [place], [place] [phone] [id number] Social History Tobacco Use Types Packs/Day Years [...] - 12/17/2020 9:55 AM EDT [facility] Discharge Summary Admit date: 12/16/2020 [...] medication that you were doing while at [facility]. Be sure to understand your pain medication plan before you leave the hospital and remember to pharmacy picking tech all prescriptions at the pharmacy. DVT PROPHYLAXIS: [...] 11:30 AM Mari Sandoval PA Orthopaedics at [facility] Arrive at: [facility] Level 02/20/2021 1:00 PM Mari Sandoval PA Orthopaedics at [facility] Arrive at: [facility] Level Future Orders Complete By Expires Referral to Home Health - at DISCHARGE [[id number] CPT(R)] As directed Process Instructions: Scheduling Instructions: Comments: DOCUMENTATION FOR VNA SERVICES (INCLUDING THOSE PATIENTS WITH MEDICARE COVERAGE REQUIRING HOME VNA SERVICES AND/OR HOSPICE SERVICES) PATIENT'S LOCATION: Molly Rios [address] [place] [id number] (home) Cell: Telephone Information: [place] Pilot's Name: Medhat/Self In discussion with the attending physician, it is certified that this patient is under their care and that they, or a Nurse Practitioner,Clinical Nurse specialist or Physician Crm Dynamics Developer who is working directly with them, had [...] for managing ADL's. HOME HEALTH CARE AGENCY: [facility] PHONE: [phone] FAX: [phone] Start of care: 24-48 hours post dc [...] patient'sPCP: MD Toni Suggs [address] / [facility] [address] All A agencies which cover the area of patient's residence have been reviewed, either verbally or in writing, and patient/family have chosen the home health care agency noted Questions: Agency name and contact information: [facility] Patient location post discharge: home What services are requested: Physical Therapy Occupational Therapy Start date: Responsible MD post discharge contact info: PCP Inpatient Provider Contact Information: For questions regarding this summary or this inpatient hospitalization, please call the [facility] at [phone]. MONAE Lindquist 12/17/2020 documented in this encounter [...] you leave the hospital and remember to pharmacy picking tech all prescriptions at the pharmacy. DVT PROPHYLAXIS: [...] 10 mg TAKE 1 CAPSULE BY 0 07/15 Capsule MOUTH AT BEDTIME calcium carbonate Take [...] PA - 12/17/2020 9:51 AM EDT [facility] ORTHOPAEDIC PROGRESS NOTE Admit Date: 12/16/2020 Hospital [...] referrals are placed. Patient requests referral to [facility]. PHONE: [phone] FAX: [phone] Expected date of discharge: 12/17/20 PT/OT CAREY Referral routed to the Environmental Health And Safety Manager for matching with agency/vendor and to provide [...] Evaluation Leval of Eval Complexity: Low - 51707 Diagnosis: S/P right total hip arthroplasty; Dr. [...] H25.13 ??? Plantar fasciitis M72.2 ??? Problem [id number] ??? Routine adult health maintenance Z00.00 ??? [...] IADLs: Dressing Dressing: Lower Body, Upper Body Marketing Manager Health Communications Top: Modified Independent Underwear: Supervision, Verbal Cues, [...] Clinical Decision Making Complexity Score: Low - 83548 Rola Kaufman OT 12/16/2020 Occupational Therapy Rehabilitation [...] turn level surfaces using a FWW at [facility] Comments: Sit / Stand: Supervision, Assist of 1 Assistive Equipment: FWW Surfaces Used: bed Stairs: Assist of 1, Contact Guard Assistive Equipment: FWW Number of Stairs: 4 x 6 inch at [facility] using BUE handrails ( presented for education [...] x5 Hip Abduction / Adduction -- Ankle Lapoint x5 Seated Hip Flexion -- Knee Flexion [...] good functional mobility using a FWW at [facility] and is safe to discharge home with [...] Diversional Activities: smartphone television Pain Management Interventions: [id number]-[id number]-ghlbp dosing utilized cold applied Problem: Postoperative Nausea [...] care provider on file: Estee Diaz MD [phone] Advance Directive on file and Code Status: <no information>, Attempt Cardiopulmonary Resuscitation - Inpatient If AD's have not been completed Medhat would be surrogate decision maker per [place] surrogate decision making law. (Only good for 180 days) Any patient receiving care at [facility] must abide by [place] law. The hierarchy for surrogate decision making [...] (i) The agent with financial power of employment attorney or a conservator appointed in accordance with RSA 464-A. (j) The guardian of the patient???s estate. Patient???s Functional Status:Pt states she is independent with all adls. She drives Living Situation:lives with in a 2 story home but living area all on first floor. 2 cats 3 DIOGENES Has [address] [facility] [address] Supports:family BH/Substance use: per pt Denies any [...] home via personal vehicle when medically ready. nuclear medical tech/Title Insurance Agent will continue to follow patient???s progress and remain available if situation changes for coordination of care, psychosocial support and/or discharge planning. Office of Care Management CM: Debbie Mejia RN Op Note - Nish Chávez MD - 12/16/2020 10:11 AM EDT [facility] Operative Note [facility] [address] [place] [address] Patient Name: Molly Rios : [id number] MR#: [id number] Case Date: 12/16/2020 Surgery Start Time: 1010 Surgery Stop Time: 1056 Date: 12/16/2020 Surgeon: Nish Chávez MD Crm Dynamics Developer: MONAE Jessica Yarn Wrapper: Manjit Tineo CRNA Anesthesia: Right Pre-operative diagnosis: Right hip osteoarthritis, severe Body mass index is 19.16 kg/m??. Post-operative diagnosis: Same Surgical Procedure Performed: Injection right hip with marcaine 0.25% with epi, 4 mg morphine, ketorolac 30 mg, and Solu-Medrol (40 mg) into skin, subcutaneous and deep tissues, and joint space. Right total hip arthroplasty, anterior Hueter approach with Jarrell table Right hip intraoperative radiologic examination Findings: [...] performed. Patient was positioned supine on the Jarrell table, both feet and ankles were padded [...] liner was placed and impacted according to manager desktop's instructions. Any impinging osteophytes were removed. Attention [...] and laterally. At the same time, the field administrative assistant leaned against the thigh to optimize [...] back to the hospital bed from the Jarrell table and boots wereremoved. No abduction pillow was placed. The patient returned to the recovery room in stable condition. The surgical scrub tech, MONAE Jessica, worked under my direction for the duration of the operativesession. The field administrative assistant meticulously prepped the operative site and maintained the best possible exposure of anatomy for the procedure for its duration. Implant Information: Implant Name Type Inv. Item Serial No. Data Entry Supervisor Lot No. LRB No. Used Action SHELL ACET HIP 50MM POR 3 HOLE TI R3 ([id number]) (AutoReq) - [id number] IMPLANTS SHELL ACET HIP 50MM POR 3 HOLE TI R3 ([id number]) (AutoReq) [employer] - CLEMENTS NEPH [id number] Right 1 Implanted LINER ACET HIP [id number] 0D POLY R3 ([id number]) (AutoReq) - [id number] IMPLANTS LINER ACET HIP [id number] 0D POLY R3 ([id number]) (AutoReq) [employer] NE[employer] [id number] Right 1 Implanted STEM FEMORAL HIP SZ 3 PROX 135D POR CLLR STND OFST TI ([id number]) (AutoReq) - [id number] IMPLANTS STEMFEMORAL HIP SZ 3 PROX 135D POR CLLR STND OFST TI ([id number]) (AutoReq) [employer] - CLEMENTS [id number] Right 1 Implanted HEAD FEMORAL HIP 32MM -3MM OFFSET 12/14 TPR ZIRCNM OXINIUM ([id number]) (AutoReq) - [id number] IMPLANTSHEAD FEMORAL HIP 32MM -3MM OFFSET 12/14 TPR ZIRCNM OXINIUM ([id number]) (AutoReq) [employer] - [employer] NEPH [id number] Right 1 Implanted TG 0 RG 0 documented in this encounter Plan of Treatment Upcoming Encounters Date Type Specialty Care Team Description 12/21/2021 Office Visit Sports Medicine Juno Massey MD [address] [facility] [place], [place] [address] (Wo rk) documented as of [...] City/State/ZIP Code Phon e Number LABORATORY [address] [place], [place] [address] (ABNORMAL) Differential, Automated (12/17/2020 6:59 AM EDT) [facility] Method Time Signature Neutrophils % 83.0 % LABORATORY Neutr Abs (ANC) 12.76 (H) 1.70 - DAY 6.10 LABORATORY x10(3)/mc L Lymphocytes % 6.6 % LABORATORY Lymphocytes Abs 1.0 0.9 - 3.2 [facility] DAY x10(3)/ LABORATORY L Monocytes % 9.9 [...] yielding IG's will be scanned manually for concnannette danyvonne. If this scan disagrees with the [...] Code Phon e Number LABORATORY [address] [place], [place] [address] (ABNORMAL) Hemogram (12/17/2020 6:59 AM [...] City/State/ZIP Code Phon e Number LABORATORY [address] [place], [place] [address] (ABNORMAL) Basic Metabolic Panel (non-fasting) [...] Address City/State/ZIP Code Phon e Number [facility] [address] [place], [place] [address] XR Fluoro No Rad [...] Pritchard RN)1709 (Given - Provider: Rosalia Pritchard RN)6143 (Given - Provider: Татьяна Lundy RN)7408 (Given - Provider: Татьяна Lundy RN) 040 (Given - Provider: Татьяна burks RN)0831 (Given [...] Routine gabapentin (Neurontin) capsule 300 mg 20 (Given - Provider: Татьяна Lundy RN) 300 mg, Oral, NIGHTLY, First dose on Tue12/16/20 at 2100, Until Discontinued, Routine ketorolac (Toradol) (15 mg/mL) injection 15 mg 170 (Given - Provider: Rosalia Pritchard RN)232 (Given - Provider: Татьяна Lundy RN) 0404 [...] bowel movement within 72 hours If multiple AR N bowel medications ordered, start with Miralax, [...]
Routine documented in this encounter Care Teams Technology Recruiter Relationship Specialty Start Date End Date Estee Diaz MD PCP - General Family Medicine 10/28/20 [address] [place] [address] documented as of this encounter
--- OUTSIDE RECORDS SUMMARY | 2021-11-18 12:24 | XMS_ITS | Encounter Summary ---
:1945 Author Organization [facility] [place] [address] Care Team Providers Name Role Phone Estee Diaz MD Primary Care Provider Encounter Details Date Type Department Care Team Description 12/09/2020 Telephone Pre-Admission Mary hussein at [facility] [place] [address] Social History Tobacco Use Types Packs/Day [...] MD [address] [facility] [place], [place] [address] (Wo rk) documented as of this encounter Visit Diagnoses Not on filedocumented in this encounter Care Teams Fiber Design Engineer Relationship Specialty Start Date End Date Estee Diaz MD PCP - General Family Medicine 10/28/20 [address] [facility] [address] [place] [address] documented as of this encounter
--- OUTSIDE RECORDS SUMMARY | 2021-11-18 12:24 | XMS_ITS | Encounter Summary ---
:1945 Author Organization [facility] [place] [address] Care Team Providers Name Role Phone Kevin Miranda MD Primary Care Provider Reason for Visit Reason Onset Date Comments Follow-up 09/18/2020 Encounter Details Date Type Department Care Team Description 09/18/2020 Telephone Orthopaedics at [facility] Robert Floyd, RN Follow-up [address] [place] [address] Social History Tobacco Use Types Packs/Day Years Used Date Former Smoker Quit: 1988 Smokeless Tobacco: Never Used Sex Assigned at Date Recorded Not on file documented as of this encounter Miscellaneous Notes Telephone Encounter - Robert Genao, RN - 09/18/2020 12:36 PM EDT Telephone Call 09/18/2020 12:37 PM Caller: Molly Rios 1945 Telephone Information: [phone] (home) Problem/Question: Patient was placed on Meloxicam [...] MD [address] [facility] [place], [place] [address] (Wo rk) documented as of this encounter Visit Diagnoses Not on filedocumented in this encounter Care Teams Cooker Loader Relationship Specialty Start Date End Date Kevin Miranda MD PCP - General Family Medicine 06/30/20 10/27/20 [address] [place] [address] documented as of this encounter
--- OUTSIDE RECORDS SUMMARY | 2021-11-18 12:24 | XMS_ITS | Encounter Summary ---
:1945 Author Organization [facility] [place] [address] Care Team Providers Name Role Phone Estee Diaz MD Primary Care Provider Encounter Details Date Type Department Care Team Description 10/31/2020 Notes Only Orthopaedics at [facility] Nish Chávez MD [facility] [place] [address] [place] [address] [phone] (Wo rk) Social History Tobacco Use Types [...] and [facility]. - The consent was reviewed [...] Kineret (anakinra), Rituxan (rituximab). - Items to diamond picker and have at home for use [...] number to reach you at after surgery: [phone] - You may shower the day after [...] MD [address] [facility] [place], [place] [address] (Wo rk) documented as of this encounter Visit Diagnoses Not on filedocumented in this encounter Care Teams Bulb Assembler Relationship Specialty Start Date End Date Estee Diaz MD PCP - General Family Medicine 10/28/20 [address] [place] [address] documented as of this encounter
--- OUTSIDE RECORDS SUMMARY | 2021-11-18 12:24 | XMS_ITS | Encounter Summary ---
:1945 Author Organization [facility] Address [address] [place] [address] Care Team Providers Name Role Phone Kevin Miranda MD Primary Care Provider Reason for Visit Reason Comments Follow-up discuss hip surgery Encounter Details Date Type Department Care Team Description 10/16/2020 Office Visit Orthopaedics at Pb Viveros chanteric bursitis of left hip; MONAE Summers Primary osteoarthritis of right hip; [address] [facility] Pain in right hip; [place], [place] [address] Gluteal tendinitis of left buttock; [id number] [place] [address] It band syndrome, left [phone] Social History Tobacco Use Types Packs/Day Years Used Date Former Smoker Quit: 1988 Smokeless Tobacco: Never Used Sex Assigned at Date Recorded Not on file documented as of this encounter Patient Instructions Patient InstructionsPb Preciado PA - 10/16/2020 2:30 PM EDT ASSESSMENT/PLAN: Molly Rios is a 75 y.o. 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 Questions solicited and answered. Patient voiced understanding to info/instructions given. We reviewed the patient's x-rays together and questions were solicited and answered. The patient presents today frustrated by right hip pain. The pain is interfering with their ability to perform their normal ADL's and be as active as they desire, and is interfering with their sleep. The Pathophysiology and treatment options were discussed with the patient to include, NSAIDS, physical therapy, cortisone injections, further diagnostic imaging, and surgical intervention. I discussed that their treatment plan will be determined by how they feel and how they are able to do what they want to do. We reviewed at some length the accepted nonoperative treatment options for hip OA, including activity modification, attainment of ideal body weight, reduction of inflammation either through oral anti-inflammatory agents, topicals, or intra-articular cortisone injection. We also talked about the role of physical therapy to strengthen muscle groups that control lower extremity muscle groups. There are also emerging technologies including protein rich plasma and [...] years according to accelerated agingsimulation by the agriculture engineer. Considering the apparent impact on her lifestyle and having explored non- operative treatment options, I indicated that in my opinion total hip arthroplasty would be a reasonable option to attempt to restore a more normal, pain-free level of function. I discussed how the procedure is performed and all of their questions were answered. I discussed the risks of the procedure and the potential complications. Molly Rios expressed a desire to pursue total hip arthroplasty. Please refer to the [employer] website at [email or web address], the patient information section. Click on the hip and it will direct you to information regarding your injury. Discussed with patient indications for prompt return or to call the clinic if they have any questions, otherwise they will follow-up for pre-operative consent with Dr. Cáhvez and with their PCP as scheduled. documented in this encounter Progress Notes Pb Preciado PA - 10/16/2020 2:30 PM EDT PATIENT NAME: Molly Rios AGE: 75 y.o. MR#: [id number] DATE OF VISIT: 10/16/2020 Referring Provider: Kevin Miranda CHIEF COMPLAINT: Right hip pain HISTORY OF PRESENT ILLNESS Molly Rios is a 75 y.o. year old female who presents to the clinictoday for follow-up of right hip pain. The patient was last seen by Dr. Chávez on 09/02/2020. At the time she was treated for severe right hip OA with grade 3-4 changes. At the time of her last visit we reviewed methods to try to reduce inflammation over the right hip. Since her last visit she reports right hip has been bothering her. She stopped Meloxicam, due to GI upset. The patient feels very frustrated with her ongoing right hip pain. This is causing her low back to also hurt. This is also affecting her left hip. She has been diagnosed with a left hip bursitis and has continued aching over the left hip. The patient reports she is very active, she enjoys swimming on a daily basis. She swims about a milea day. This is helpful in keeping her strong, but she finds that her right hip pain is limiting her back. The bursitis on the left side is described as a deep ache. She finds that she has difficulty stepping up with the left leg as it is experiences weakness and tightness laterally. She denies any falls or recent injuries to the area. No associated back pain, no radiating numbness or tingling of the legs. Outside reports reviewed: none. Patient's medications, allergies, past medical, surgical, social and family histories were reviewed and updated as appropriate. ROS: negative for fever, chills, chest pain, shortness of breath, nausea or vomiting. PHYSICAL EXAM: General: alert and oriented. She appears in no acute discomfort and is resting comfortably in a chair in the exam room. Lumbar Spine: FROM without any pain or reproduction of pain, nontender over the midline. I have made the following determinations: Hip Exam: Right Prior surgery on this joint: No Leg length: Longer leg: left Limb Length discrepancy: 0.5cm Motion: Flexion contracture: 0 Total degrees of Flexion:100 Total degrees of Abduction:40 Total degrees of Ext Rotation: 40 Total degrees of Internal Rotation: 0 Gait Abnormality: Normal Radiographic evidence of joint damage: [0= normal; 1=minimal ; 2= some osteophytes , some narrowing ; 3= moderate osteophytes, significant narrowing, mild deformity; 4= large osteophytes, marked narrowing, obvious deformity]: 3= moderate osteophytes, significant narrowing, mild deformity Skin Integrity: Normal Pulses Palpable: Right PT: Yes Right DP:Yes Motor/Sensory: Right Distal Motor: Normal Distal Sensory: Normal Hip Abductors: 5 Trendelenburg test: negative I have made the following determinations: Hip Exam: Left Patient is tender to palpation over the trochanteric bursa, the insertion of the gluteal tendons andthe IT band. Prior surgery on this joint: No Leg length: Longer leg: left Limb Length discrepancy: 0.5cm Motion: Flexion contracture: 0 Total degrees of Flexion:110 Total degrees of Abduction:40 Total degrees of Ext Rotation: 40 Total degrees of Internal Rotation: 15 Gait Abnormality: Normal Radiographic evidence of joint damage: [0= normal; 1=minimal ; 2= some osteophytes , some narrowing ; 3= moderate osteophytes, significant narrowing, mild deformity; 4= large osteophytes, marked narrowing, obvious deformity]: 2= some osteophytes , some narrowing Skin Integrity: Normal Pulses Palpable: Right PT: Yes Right DP:Yes Motor/Sensory: Right Distal Motor: Normal Distal Sensory: Normal Hip Abductors: 5 Trendelenburg test: negative RADIOLOGICAL STUDIES: I reviewed images of the right hip taken on 07/02/2020, which included, AP pelvis, Frog leg lateral, which showed advanced arthritic changes, grade 3-4, extensive osteophytosis and cysts in the subchondral acetabulum and femoral head. ASSESSMENT/PLAN: Molly Rios is a 75 y.o. 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 The patient is growing increasing frustrated with continued pain over the right hip causing her to with associated low back pain as well as left hip pain. The patient feels that she has exhausted conservative management and desires to proceed with a left hip replacement. The patient's Left hip pain is consistent with trochanteric bursitis, gluteal tendinitis and IT band tightness. Questions solicited and answered. Patient voiced understanding to info/instructions given. We reviewed the patient's x-rays together and questions were solicited and answered. The patient presents today frustrated by right>left hip pain. The pain is interfering with their ability to perform their normal ADL's and be as active as they desire, and is interfering with their sleep. The Pathophysiology and treatment options were discussed with the patient to include, NSAIDS, physical therapy, cortisone injections, further diagnostic imaging, and surgical intervention. I discussed that their treatment plan will be determined by how they feel and how they are able to do what they want to do. The patient was previously prescribed meloxicam but was unable to tolerate it due to GI side effects. The patient has also had prior cortisone injections in other areas of the body and did not feel that they provided her with significant relief of her symptoms. In regards to her left hip pain and trochanteric bursitis, gluteal tendinitis at night been syndrome, we reviewed strengthening exercises as well as some stretching exercises of her IT band to help reduce pain and inflammation over the area. We discussed possible cortisone injection into the trochanteric bursal area and she declined, see above. Considering the apparent impact on her lifestyle and having explored non- operative treatment options, I indicated that in my opinion total hip arthroplasty would be a reasonable option to attempt to restore a more normal, pain-free level of function. I discussed how the procedure is performed and all of their questions were answered. I discussed the risks of the procedure and the potential complications. Molly Rios expressed a desire to pursue total hip arthroplasty. Please refer to the [employer] website at [email or web address], the patient information section. Click on the hip and it will direct you to information regarding your injury. Discussed with patient indications for prompt return or to call the clinic if they have any questions, otherwise they will follow-up for pre-operative consent with Dr. Chávez and with their PCP as scheduled. Aida Preciado PA-C SURGICAL CASE INFO: Procedure: right Total hip arthroplasty direct anterior approach CPT Codes: 58700 -Total hip arhtroplasty Equipment/Implants: Equipment Required: CLEMENTS [employer] NEPHEW - POLAR STEM CEMENTLESS and CLEMENTS [employer] NEPHEW - R3 ACETABULAR CUP Patient Position: Supine REGGIE table Anesthesia Request: spinal Rep needed: Yes, Clements and Nephew C-Arm: Large 12 C-Arm Scheduling Instructions: Please call patient to schedule surgery documented in this encounter Plan of Treatment Upcoming Encounters Date Type Specialty Care Team Description 12/21/2021 Office Visit Sports Medicine Juno Massey MD [address] [facility] [place], [place] [address] (Wo rk) Scheduled Orders Name Type Priority Associated Diagnoses Order S chedule SURGICAL CASE Procedures Routine Trochanteric bursitis of Or dered: 10/16/2020 REQUEST: TOTAL HIP left hip ARTHROPLASTY, Primary osteoarthritis of ANTERIOR APPROACH right hip (WRVU 20.72) Pain in right hip documented as of this encounter Visit Diagnoses Diagnosis Trochanteric bursitis of left hip Enthesopathy of hip region Primary osteoarthritis of right hip Primary localized osteoarthrosis, pelvic region and thigh Pain in right hip Pain in joint, pelvic region and thigh Gluteal tendinitis of left buttock Enthesopathy of hip region It band syndrome, left documented in this encounter Care Teams Collections Representative Relationship Specialty Start Date End Date Kevin Miranda MD PCP - General Family Medicine 06/30/20 10/27/20 [address] [place] [address] documented as of this encounter
--- OUTSIDE RECORDS SUMMARY | 2021-11-18 12:24 | XMS_ITS | Encounter Summary ---
:1945 [address] [facility] [place] [address] Care Team Providers Name Role Phone Estee Diaz MD Primary Care Provider Encounter Details Date Type Department Care Team Description 01/19/2021 Notes Only Orthopaedics at Nish Tinoco MD [facility] [place] [address] [place] [address] [phone] (Wo rk) Social History Tobacco Use Types Packs/Day Years Used Date Former Smoker Quit: 1988 Smokeless Tobacco: Never Used Alcohol Use Standard Drinks/Week Comments Yes 4 (1 standard drink = 0.6 oz pure alcoho l) Sex Assigned at Date Recorded Not on file documented as of this encounter Progress Notes Verena Hinojosa RN - 01/19/2021 8:06 AM EST Prior auth received through [employer] for diclofenac sodium 3% gel as prescribed by Abdulaziz Sandoval PA-C. Completed prior auth and awaiting response from insurance company. Denial received from insurance company with recommendations to trial diclofenac 1% gel first. documented in this encounter Plan of Treatment Upcoming Encounters Date Type Specialty Care Team Description 12/21/2021 Office Visit Sports Medicine Juno Massey MD [address] [facility] [place], [place] [address] (Wo rk) documented as of this encounter Visit Diagnoses Not on filedocumented in this encounter Care Teams Budget Analyst Relationship Specialty Start Date End Date Estee Diaz MD PCP - General Family Medicine 10/28/[address] [place] [address] documented as of this encounter
--- OUTSIDE RECORDS SUMMARY | 2021-11-18 12:24 | XMS_ITS | Encounter Summary ---
:1945 Author Organization [facility] [place] [address] Care Team Providers Name Role Phone Estee Diaz MD Primary Care Provider Encounter Details Date Type Department Care Team Description 01/05/2021 Orders Only Cardiology at [facility] Serjio Moon, Premature ventricular [facility] [place] [address] CARDIOLOGY DEPT [phone] [place], [place] [address] Social History Tobacco Use Types Packs/Day Years Used Date Former Smoker Quit: 1988 Smokeless Tobacco: Never Used Alcohol Use Standard Drinks/Week Comments Yes 4 (1 standard drink = 0.6 oz pure alcoho l) Sex Assigned at Date Recorded Not on file documented as of this encounter Progress Notes Azra Morillo RN - 01/05/2021 4:46 PM EST ekg as per protocol documented in this encounter Plan of Treatment Upcoming Encounters Date Type Specialty Care Team Description 12/21/2021 Office Visit Sports Medicine Juno Massey MD [address] [facility] [place], [place] [address] (Wo rk) Scheduled Orders Name Type Priority Associated Diagnoses Order S chedule EKG 12 Lead ECG Routine Premature ventricular As Nee ded for 6 Occurrences contractions starting 2020 until 01/05/2022 documented as of this encounter Visit Diagnoses Diagnosis Premature ventricular contractions Other premature beats documented in this encounter Care Teams Cab Worker Relationship Specialty Start Date End Date Estee Diaz MD PCP - General Family Medicine 10/28/20 [address] [place] [address] documented as of this encounter
--- OUTSIDE RECORDS SUMMARY | 2021-11-18 12:26 | XMS_ITS | Encounter Summary ---
:1945 Author Organization [facility] Address [address] [facility], [address] [place] [address] Care Team Providers Name Role Phone Kevin Miranda MD Primary Care Provider Encounter Details Date Type Department Care Team Description 07/09/2021 Telemedicine KaushikYadi Gary [facility] MONAE thigh, initial [address] encounter (Primary Dx) [place] [address] [place], [place] [phone] Social History Tobacco Use Types Packs/Day Years [...] dark spotin the middle of the red venetie ira on her right thigh, this looked similar to previous tick bites that she and her have had. She never saw an actual tick but recalls feeling something (like a scratch) in the same area 3 days ago when she was walking around [place] [facility]. She did not think anything of [...] All questions answered. Telemedicine Communication method: Video ([employer]) The physical location of the patient: [place] ([place], [place]) The physical location of the provider: [place] [...] Office Visit Family Medicine Kevin Miranda MD [address] [place] [address] (Wo rk) documented as of this encounter Visit Diagnoses Diagnosis Tick bite of right thigh, initial encoun ter - Primary documented in this encounter Care Teams Language And Literature Division Chair Relationship Specialty Start Date End Date Kevin Miranda MD PCP - General Family Medicine 11/20/19 [address] [place] [address] documented as of this encounter
--- OUTSIDE RECORDS SUMMARY | 2021-11-18 12:26 | XMS_ITS | Encounter Summary ---
:1945 Author Organization [facility] Address [address] [facility], [address] [place] [address] Care Team Providers Name Role Phone Kevin Miranda MD Primary Care Provider Encounter Details Date Type Department Care Team Description 04/02/2021 Refill [facility] Pr actice Kevin Miranda MD [address] [place] [address] [place] [address] [phone] (Wo rk) Social History Tobacco Use Types [...] Office Visit Family Medicine Kevin Miranda MD [address] [place] [address] (Wo rk) documented as of this encounter Visit Diagnoses Not on filedocumented in this encounter Care Teams Drug Abuse Treatment Specialist Relationship Specialty Start Date End Date Kevin Miranda MD PCP - General Family Medicine 11/20/[address] [place] [address] documented as of this encounter
--- OUTSIDE RECORDS SUMMARY | 2021-11-18 12:26 | XMS_ITS | Encounter Summary ---
:1945 Author Organization [facility] Address [address] [facility], [address] [place] [address] Care Team Providers Name Role Phone Kevin Miranda MD Primary Care Provider Encounter Details Date Type Department Care Team Description 04/21/2021 Scan Document - View Kaushik [facility] Kevin Miranda, in Chart Practice [address] [place], [place] [id number] [place], [place] [phone] Social History Tobacco Use Types Packs/Day Years [...] Visit Family Medicine Kevin Miranda MD [address] [place] [address] (Wo rk) documented as of this encounter Visit Diagnoses Not on filedocumented in this encounter Care Teams Education Reviewer Relationship Specialty Start Date End Date Kevin Miranda MD PCP - General Family Medicine 11/20/[address] [place] [address] documented as of this encounter
--- OUTSIDE RECORDS SUMMARY | 2021-11-18 12:26 | XMS_ITS | Clinical Summary ---
:1945 Author Organization [facility] Address [address] [facility], [address] [place] [address] Care Team Providers Name Role Phone Kevin [...] pursue another opinion with Dr. Angel at [facility] for another anterior approach option. Continue diclofenac [...] and fiber regimen. F/u with Dr. Gorman ([facility] gastroenterology) for routine f/u and colonoscopy. Lateral knee pain, left 06/24/2017 Radiculopathy, lumbar region 06/12/2017 Overview: Evaluated and followed by : [facility], Rt. Hip, and [facility]. [...] 05/03/2013 11/23/2019 Overview: H/O Corneal abrasion; OD Immunizations Name Administration Dates Next Due DT [...] Office Visit Family Medicine Kevin Miranda MD [facility] [place], [place] [address] (Wo rk) Health Maintenance [...] Typ e / Group Dates BLUE CROSS BLUE CROSS [id number] 2013-Pres [phone] BLUE SHIELD MEDEX CLAIMS ent [phone] [place] [address] MEDICARE MEDICARE A&B [id number] 2013-Pre [phone] Medicare sent [address] [place] [address] MEDICARE MEDICARE A&B [id number] 2013-Pre [phone] Medicare sent [address] [place] [address] MEDICARE MEDICARE A&B [id number] 2013-Pres [phone] Medicare ent [address] [place] [address] BLUE CROSS BLUE CROSS [id number] 2013-Pres [phone] BLUE SHIELD HMO BLUE ent [phone] [place] [address] [facility] [id number] 2020-Pres [phone] [address] Medi care [employer]ICARE ent [phone] [place] [address] Gabriel,Catherin Personal/Famil Self 1945 [address]Home) [place] [address] Gabriel,Catherin Personal/Famil Self 1945 [address] ([address]) [place] [address] Gabriel,Catherin Personal/Famil Self 1945 [address]) [place] [address] Gabriel,Catherin Personal/Famil Self 1945 [address]Home) [place] [address] Gabriel,Catherin Personal/Famil Self 1945 [address]Home) [place] [address] Gabriel,Catherin Personal/Famil Self 1945 [address] (Home) [place] [address] Gabriel,Catherin Personal/Famil Self 1945 [address]Home) [place] [address] Gabriel,Catherin Personal/Famil Self 1945 [address] (Home) [place] [address] Garbiel,Catherin Personal/Famil Self 1945 [address] (Home) [place] [address] Gabriel,Catherin Personal/Famil Self 1945 [address]Home) [place] [address] Gabriel,Catherin Personal/Famil Self 1945 [address] (Home) [place] [address] Gabriel,Catherin Personal/Famil Self 1945 [address] (Home) [place] [address] Gabriel,Catherin Personal/Famil Self 1945 [address] (Home) [place] [address] Gabriel,Catherin Personal/Famil Self 1945 [address] (Home) [place] [address] Gabriel,Catherin Personal/Famil Self 1945 [address] (Home) [place] [address] Gabriel,Catherin Personal/Famil Self 1945 [address] (Home) [place] [address] Gabriel,Catherin Personal/Famil Self 1945 [address] (Home) [place] [address] Gabriel,Catherin Personal/Famil Self 1945 [address] (Home) [place] [address] Gabriel,Catherin Personal/Famil Self 1945 [address] (Home) [place] [address] Gabriel,Catherin Personal/Famil Self 1945 [address]Home) [place] [id number] Gabriel,Catherin Personal/Famil Self 1945 [address] (Home) [place] [address] Gabriel,Catherin Personal/Famil Self 1945 [address] (Home) [place] [address] Gabriel,Catherin Personal/Famil Self 1945 [address] (Home) [place] [address] Gabriel,Catherin Personal/Famil Self 1945 [address] (Home) [place] [address] Gabriel,Catherin Personal/Famil Self 1945 [address]) [place] [id number] Gabriel,Catherin Personal/Famil Self 1945 [address] (Home) [place] [address] Gabriel,Catherin Personal/Famil Self 1945 [address] (Home) [place] [address] Gabriel,Catherin Personal/Famil Self 1945 [address] (Home) [place] [address] Gabriel,Catherin Personal/Famil Self 1945 [address] (Home) [place] [address] Gabriel,Catherin Personal/Famil Self 1945 [address] (Home) [place] [address] Gabriel,Catherin Personal/Famil Self 1945 [address] (Home) [place] [address] Gabriel,Catherin Personal/Famil Self 1945 [address] (Home) [place] [address] Gabriel,Catherin Personal/Famil Self 1945 [address] (Home) [place] [address] Gabriel,Catherin Personal/Famil Self 1945 [address] (Home) [place] [address] Gabriel,Catherin Personal/Famil Self 1945 [address] (Home) [place] [address] Gabriel,Catherin Personal/Famil Self 1945 [address] (Home) [place] [address] Gabriel,Catherin Personal/Famil Self 1945 [address] (Home) [place] [address] Gabriel,Catherin Personal/Famil Self 1945 [address] (Home) [place] [address] Gee Rios Personal/Famil Self 1945 [address] (Home) [place] [address] Gee Rios Personal/Famil Self 1945 [address] (Home) [place] [address] Gee Rios Personal/Famil Self 1945 [address] (Home) [place] [address] Gee Rios Personal/Famil Self 1945 [address] (Home) [place] [address] Advance Directives Latest Code Status on File Code Status Date Activated Date Inactivated Comments Full Code 04/13/2019 5:03 PM 04/14/2019 5:14 PM Care Teams Bull Rider Relationship Specialty Start Date End Date Kevin Miranda MD PCP - General Family Medicine 11/20/[address] [place] [address]
--- OUTSIDE RECORDS SUMMARY | 2021-11-18 12:26 | XMS_ITS | Encounter Summary ---
:1945 Author Organization [facility] Address 330 [facility], [address] [place] [address] Care Team Providers Name Role Phone Kevin Miranda MD Primary Care Provider Encounter Details Date Type Department Care Team Description 08/14/2021 Refill [facility] Pr Yessy Gee, [facility] [place] [address] [place] [address] [place], [place] [address] (Wo rk) Social History [...] Visit Family Medicine Kevin Miranda MD [address] [place] [address] (Wo rk) documented as of this encounter Visit Diagnoses Not on filedocumented in this encounter Care Teams Typewriter Repairer Relationship Specialty Start Date End Date Kevin Miranda MD PCP - General Family Medicine 11/20/19 1020 [place] [address] documented as of this encounter
--- OUTSIDE RECORDS SUMMARY | 2021-11-18 12:26 | XMS_ITS | Encounter Summary ---
:1945 Author Organization [facility] Address 330 [facility], [address] [place] [address] Care Team Providers Name Role Phone Kevin Miranda MD Primary Care Provider Encounter Details Date Type Department Care Team Description 04/02/2021 Refill [facility] Pr actice Kevin Miranda MD [address] [place] [address] [place] [address] [phone] (Wo rk) Social History Tobacco Use Types [...] Visit Family Medicine Kevin Miranda MD [address] [place] [phone] (Wo rk) documented as of this encounter Visit Diagnoses Not on filedocumented in this encounter Care Teams Strategy Manager Relationship Specialty Start Date End Date Kevin Miranda MD PCP - General Family Medicine 11/20/[address] [place] [address] documented as of this encounter
--- OUTSIDE RECORDS SUMMARY | 2021-11-18 12:27 | XMS_ITS | Encounter Summary ---
:1945 Author Organization [facility] Address 330 [facility], [address] [place] [address] Care Team Providers Name Role Phone Laurie Elias CUSTOMER SERVICES SUPERVISOR Primary Care Provider Unavailable Encounter Details Date Type Department Care Team Description 10/15/2019 Refill [facility] actice Kevin Miranda MD [address] [place] [address] [place] [address] [phone] (Wo rk) Social History Tobacco Use Types [...] Visit Family Medicine Kevin Miranda MD [address] [place] [address] (Wo rk) documented as of this encounter Visit Diagnoses Not on filedocumented in this encounter Care Teams Rag Willow Operator Relationship Specialty Start Date End Date Laurie Elias, ANN PCP - General Family Medicine 03/02/1811/19/19 documented as of this encounter
--- OUTSIDE RECORDS SUMMARY | 2021-11-18 12:27 | XMS_ITS | Encounter Summary ---
:1945 Author Organization [facility] Address 330 [facility], [address] [place] [address] Care Team Providers Name Role Phone Kevin Miranda MD Primary Care Provider Encounter Details Date Type Department Care Team Description 03/27/2020 Scan Document - View [facility] Kevin Miranda, in Chart Practice [address] [place], [place] [address] [place], [place] [phone] Social History Tobacco Use Types Packs/Day Years [...] Office Visit Family Medicine Kevin Miranda MD [address] [place] [address] (Wo rk) documented as of this encounter Visit Diagnoses Not on filedocumented in this encounter Care Teams Pocket Assembler Relationship Specialty Start Date End Date Kevin Miranda MD PCP - General Family Medicine 11/20/[address] [place] [address] documented as of this encounter
--- OUTSIDE RECORDS SUMMARY | 2021-11-18 12:27 | XMS_ITS | Encounter Summary ---
:1945 Author Organization [facility] Address 330 [facility], [address] [place] [address] Care Team Providers Name Role Phone Kevin Miranda MD Primary Care Provider Encounter Details Date Type Department Care Team Description 01/27/2021 Orders Only [facility] actice Provider, MD Harsh [address] [place] [address] [phone] Social History Tobacco Use Types Packs/Day Years [...] Visit Family Medicine Kevin Miranda MD [address] [place] [address] (Wo rk) documented as of this encounter Procedures Procedure Name Priority Date/Time Associated Diagnosis Comme nts MAMMOGRAPHY Routine 07/29/2020 documented in this encounter Results MAMMOGRAPHY (07/29/2020) Anatomical Region Laterality Modality Other Narrative This result has an attachment that is no t available. Historical Provider HEALTH MAINTENANCE documented in this encounter Visit Diagnoses Not on filedocumented in this encounter Care Teams Lokie Engineer Relationship Specialty Start Date End Date Kevin Miranda MD PCP - General Family Medicine 11/20/19 1020 [place] [address] documented as of this encounter
--- OUTSIDE RECORDS SUMMARY | 2021-11-18 12:27 | XMS_ITS | Encounter Summary ---
:1945 Author Organization [facility] Address 330 [facility], [address] [place] [address] Care Team Providers Name Role Phone Kevin Miranda MD Primary Care Provider Encounter Details Date Type Department Care Team Description 10/14/2020 Refill [facility] Pr Yessy Gee, [facility] [place] [address] [place] [address] [place], [place] [address] (Wo rk) Social History [...] Visit Family Medicine Kevin Miranda MD [address] [place] [phone] (Wo rk) documented as of this encounter Visit Diagnoses Not on filedocumented in this encounter Care Teams School Photographer Relationship Specialty Start Date End Date Kevin Miranda MD PCP - General Family Medicine 11/20/19 1020 [place] [address] documented as of this encounter
--- OUTSIDE RECORDS SUMMARY | 2021-11-18 12:27 | XMS_ITS | Encounter Summary ---
:1945 Author Organization [facility] Address 330 [facility], [address] [place] [address] Care Team Providers Name Role Phone Kevin [...] Office Visit Family Medicine Kevin Miranda MD [address] [place] [address] (Wo rk) documented as of this encounter Visit Diagnoses Not on filedocumented in this encounter Care Teams Manufacturing Tech Relationship Specialty Start Date End Date Kevin Miranda MD PCP - General Family Medicine 11/20/[address] [place] [address] documented as of this encounter
--- OUTSIDE RECORDS SUMMARY | 2021-11-18 12:27 | XMS_ITS | Encounter Summary ---
:1945 Author Organization [facility] Address 330 [facility], [address] [place] [address] Care Team Providers Name Role Phone Kevin Miranda MD Primary Care Provider Encounter Details Date Type Department Care Team Description 01/03/2020 Refill [facility] Pr actice Kevin Miranda MD [address] [place] [address] [place] [address] [phone] (Wo rk) Social History Tobacco Use Types [...] Office Visit Family Medicine Kevin Miranda MD [address] [place] [address], [place] [address] (Wo rk) documented as of this encounter Visit Diagnoses Not on filedocumented in this encounter Care Teams Song Lyricist Relationship Specialty Start Date End Date Kevin Miranda MD PCP - General Family Medicine 11/20/19 1020 [place] [address] documented as of this encounter
--- OUTSIDE RECORDS SUMMARY | 2021-11-18 12:27 | XMS_ITS | Encounter Summary ---
:1945 Author Organization [facility] Address 330 [facility], [address] [place] [address] Care Team Providers Name Role Phone Laurie Elias ANTIQUE AUTO MUSEUM MAINTENANCE WORKER Primary Care Provider Unavailable Encounter Details Date Type Department Care Team Description 05/02/2019 Scan Document - View Kevin Trimble, in Chart Practice [address] [place] [address] [place], [place] [phone] Social History Tobacco Use Types Packs/Day Years [...] Visit Family Medicine Kevin Miranda MD [address] [place] [address] (Wo rk) documented as of this encounter Visit Diagnoses Not on filedocumented in this encounter Care Teams Boat Tender Relationship Specialty Start Date End Date Laurie Elias, ANN PCP - General Family Medicine 03/02/1811/19/19 documented as of this encounter
--- OUTSIDE RECORDS SUMMARY | 2021-11-18 12:27 | XMS_ITS | Encounter Summary ---
:1945 Author Organization [facility] Address 330 [facility], [address] [place] [address] Care Team Providers Name Role Phone Kevin Miranda MD Primary Care Provider Encounter Details Date Type Department Care Team Description 10/16/2020 Scan Document - View [facility] Kevin Miranda, in Chart Practice [address] [place], [place] [address] [place], [place] [phone] Social History Tobacco Use Types Packs/Day Years [...] Office Visit Family Medicine Kevin Miranda MD [address] [place] [address] (Wo rk) documented as of this encounter Visit Diagnoses Not on filedocumented in this encounter Care Teams Hand Sander Relationship Specialty Start Date End Date Kevin Miranda MD PCP - General Family Medicine 11/20/[address] [place] [address] documented as of this encounter
--- OUTSIDE RECORDS SUMMARY | 2021-11-18 12:27 | XMS_ITS | Encounter Summary ---
:1945 Author Organization [facility] Address 330 [facility], [address] [place] [address] Care Team Providers Name Role Phone Laurie Elias NP Primary Care Provider Unavailable Encounter Details Date Type Department Care Team Description 07/04/2019 Refill [facility] Pr Yessy Gee, [address] [place] [employer] [address] [place] [address] [place], [place] 0 (Wo rk) Social History Tobacco [...] Visit Family Medicine Kevin Miranda MD 1020 [place], [place] 0 (Wo rk) documented as of this encounter Visit Diagnoses Not on filedocumented in this encounter Care Teams Salesman/Owner Relationship Specialty Start Date End Date Laurie Elias NP PCP - General Family Medicine 03/02/1811/19/19 documented as of this encounter
--- OUTSIDE RECORDS SUMMARY | 2021-11-18 12:27 | XMS_ITS | Encounter Summary ---
:1945 Author Organization [facility] Address 330 [facility], [address] [place] [address] Care Team Providers Name Role Phone Kevin Miranda MD Primary Care Provider Encounter Details Date Type Department Care Team Description 03/21/2020 Orders Only [facility] actice Provider, MD Harsh [address] [place] [address] Social History Tobacco Use Types Packs/Day Years [...] Office Visit Family Medicine Kevin Miranda MD [address] [place] [address] (Wo rk) documented as of [...] on filedocumented in this encounter Care Teams Content Engineer Relationship Specialty Start Date End Date Kevin Miranda MD PCP - General Family Medicine 11/20/19 1020 [place] [address] documented as of this encounter
--- OUTSIDE RECORDS SUMMARY | 2021-11-18 12:27 | XMS_ITS | Encounter Summary ---
:1945 Author Organization [facility] Address 330 [facility], [address] [place] [address] Care Team Providers Name Role Phone Kevin [...] Visit Family Medicine Kevin Miranda MD [address] [place] [address] (Wo rk) documented as of this encounter Visit Diagnoses Not on filedocumented in this encounter Care Teams Automobile Locator Relationship Specialty Start Date End Date Kevin Miranda MD PCP - General Family Medicine 11/20/[address] [place] [address] documented as of this encounter
--- OUTSIDE RECORDS SUMMARY | 2021-11-18 12:27 | XMS_ITS | Encounter Summary ---
:1945 Author Organization [facility] Address 330 [facility], [address] [place] [address] Care Team Providers Name Role Phone Kevin [...] Office Visit Family Medicine Kevin Miranda MD [address] [place] [address] (Wo rk) documented as of this encounter Visit Diagnoses Not on filedocumented in this encounter Care Teams Director Sports Relationship Specialty Start Date End Date Kevin Miranda MD PCP - General Family Medicine 11/20/[address] [place] [address] documented as of this encounter
--- OUTSIDE RECORDS SUMMARY | 2021-11-18 12:27 | XMS_ITS | Encounter Summary ---
:1945 Author Organization [facility] Address 330 [facility], [address] [place] [address] Care Team Providers Name Role Phone Kevin Miranda MD Primary Care Provider Reason for Referral Diagnostic Imaging (Routine) - Closed Specialty Diagnoses / Procedures Referred By Contact Refer red To Contact Radiology Diagnoses Osteopenia, unspecified location Kevin Miranda MD Procedures DEXA [facility] [address] [place] [address] Referral ID Status Reason Start Date Expiration Date Visits Requ ested Visits Authorized [id number] Closed 01/07/2020 01/06/2021 1 1 Encounter Details Date Type Department Care Team Description 01/07/2020 Orders Only Kevin Trimble Osteope nia, unspecified Practice location (Primary Dx) [facility] [place] [address] [place] [address] Social History Tobacco Use Types Packs/Day Years [...] Visit Family Medicine Kevin Miranda MD [address] [place], [place] [address] (Wo rk) documented as [...] sheets). Dictated: 03/25/2020 1:12 PM Report ID: [id number] Report signed in external system at 03/25 13:12 Reported By: Joshua Arora M.D. ([facility]) Signed By: Joshua Arora M.D. ([facility]) Narrative 03/25/2020 1:12 PM EST RESPONSIBLE FELLING MACHINE OPERATOR: Joshua Arora M.D. EXAMINATION: DEXA BONE DENSITY CENTRAL CLINICAL INDICATION: Osteoporosis screening. ??Post menopause . TECHNIQUE: Dual Energy X-Ray Absorptiometry (DEXA t [facility]) was performed with measurements of the [...] might be different from the original. RESPONSIBLE FELLING MACHINE OPERATOR: Joshua Arora M.D. EXAMINATION: DEXA BONE DENSITY CENTRAL CLINICAL INDICATION: Osteoporosis screening. Post menopause. TECHNIQUE: Dual Energy X-Ray Absorptiometry (DEXA t [facility]) was performed with measurements of the [...] sheets). Dictated: 03/25/2020 1:12 PM Report ID: [id number] Report signed in external system at 03/25 13:12 Reported By: Joshua Arora M.D. ([facility]) Signed By: Joshua Arora M.D. ([facility]) Kevin Miranda MD IMG DXA PROCEDURES documented in this encounter Visit Diagnoses Diagnosis Osteopenia, unspecified location - Prima ry Osteopenia, unspecified location documented in this encounter Care Teams Acting Section Chief Relationship Specialty Start Date End Date Kevin Miranda MD PCP - General Family Medicine 11/20/19 [address] [place] [address] documented as of this encounter
--- OUTSIDE RECORDS SUMMARY | 2021-11-18 12:27 | XMS_ITS | Encounter Summary ---
:1945 Author Organization [facility] Address 330 [facility], [address] [place] [address] Care Team Providers Name Role Phone Laurie Elias COMPLAINT INVESTIGATIONS OFFICER Primary Care Provider Unavailable Encounter Details [...] Visit Family Medicine Kevin Miranda MD [address] [place] [address] (Wo rk) documented as of this encounter Visit Diagnoses Not on filedocumented in this encounter Care Teams Spinner Hand Relationship Specialty Start Date End Date Laurie Elias NP PCP - General Family Medicine 03/02/1811/19/19 documented as of this encounter
--- OUTSIDE RECORDS SUMMARY | 2021-11-18 12:27 | XMS_ITS | Encounter Summary ---
:1945 Author Organization [facility] Address 330 [facility], [address] [place] [address] Care Team Providers Name Role Phone Laurie Elias NP Primary Care Provider Unavailable Reason for Visit Reason Onset Date Comments My chart message: night sweats 05/09/2019 Encounter Details Date Type Department Care Team Description 05/09/2019 Telephone [facility] Paula Miranda, Nathalia remington t message: night Practice MD sweats [address] [place], [place] [phone] Social History Tobacco Use Types Packs/Day Years [...] this encounter Miscellaneous Notes Telephone Encounter - Paula Miranda MD - 05/09/2019 12:51 PM EDT Pt called and sent message via my chart due to concern about intermittent night sweats. She was recently diagnosed with diverticulitis w/ small pericolonic abcess s/p cipro and flagyl. She completed treatment on 04/24. Since then, she has been experiencing once weekly night sweats, which she describes as facial flushing, warmth and a little bit of wetness on her face and chest, never changing clothes.Nightsweats occur at the same time at night (2-3 am). She denies recent travel. She denies weight loss, change in appetite, increase fatigue. She denies all sxs (n/v/d/constipation/abdominal pain/cough/dysuria). Reports she has been active, biking etc... She is planning on going to [place] and is worried about possible recurrence of diverticulitis or if she should be concerned about these symptoms. Pt offered reassurance regarding recurrence of diverticulitis as she is generally asymptomatic and her night sweats are quite intermittent. Recommended monitoring at this time. If night sweats increase in frequency and/or associated fever, chills, weight loss, fatigue and decrease in appetite to f/u promptly. documented in this encounter Plan of Treatment Upcoming Encounters Date Type Specialty Care Team Description 11/30/2021 Office Visit Family Medicine Kevin Miranda MD [facility] [place], [place] [address] (Wo rk) documented as of this encounter Visit Diagnoses Not on filedocumented in this encounter Care Teams Dry Heat Room Attendant Relationship Specialty Start Date End Date Laurie Elias NP PCP - General Family Medicine 03/02/1811/19/19 documented as of this encounter
--- OUTSIDE RECORDS SUMMARY | 2021-11-18 12:27 | XMS_ITS | Encounter Summary ---
:1945 Author Organization [facility] Address 330 [facility], [address] [place] [address] Care Team Providers Name Role Phone Kevin Miranda MD Primary Care Provider Encounter Details Date Type Department Care Team Description 08/06/2020 Orders Only [facility] actice Provider, MD Harsh [address] [place] [address] [phone] Social History Tobacco Use Types Packs/Day Years [...] Visit Family Medicine Kevin Miranda MD [address] [place] [phone] (Wo rk) documented as of this encounter Procedures Procedure Name Priority Date/Time Associated Diagnosis Comme nts MAMMOGRAPHY Routine 07/29/2020 documented in this encounter Results MAMMOGRAPHY (07/29/2020) Anatomical Region Laterality Modality Other Narrative This result has an attachment that is no t available. Historical Provider HEALTH MAINTENANCE documented in this encounter Visit Diagnoses Not on filedocumented in this encounter Care Teams Backhaul Driver Relationship Specialty Start Date End Date Kevin Miranda MD PCP - General Family Medicine 11/20/19 1020 [place] [address] documented as of this encounter
--- OUTSIDE RECORDS SUMMARY | 2021-11-18 12:27 | XMS_ITS | Encounter Summary ---
:1945 Author Organization [facility] Address 330 [facility], [address] [place] [address] Care Team Providers Name Role Phone Kevin Miranda MD Primary Care Provider Reason for Referral Diagnostic Imaging (Routine) - Closed Specialty Diagnoses / Procedures Referred By Contact Refer red To Contact Radiology Diagnoses Osteopenia, unspecified location Kevin Miranda MD Procedures DEXA [facility] [address] [place] [address] Referral ID Status Reason Start Date Expiration Date Visits Requ ested Visits Authorized [id number] Closed 01/07/2020 01/06/2021 1 1 Reason for Visit Diagnostic Imaging (Routine) - Closed Specialty Diagnoses / Procedures Referred By Contact Refer red To Contact Radiology Diagnoses Osteopenia, unspecified location Kevin Miranda MD Procedures DEXA [facility] [address] [place], [place] [address] Referral ID Status Reason Start Date Expiration Date Visits Requ ested Visits Authorized [id number] Closed 01/07/2020 01/06/2021 1 1 Encounter Details Date Type Department Care Team Description 03/25/2020 [facility] Kevin Miranda MD [address] [place] [id number] [place], [place] [phone] [phone] Social History Tobacco Use Types Packs/Day Years [...] Office Visit Family Medicine Kevin Miranda MD [facility] [place], [place] 0 (Wo rk) documented as of [...] sheets). Dictated: 03/25/2020 1:12 PM Report ID: [id number] Report signed in external system at 03/25 13:12 Reported By: Joshua Arora M.D. ([facility]) Signed By: Joshua Arora M.D. ([facility]) Narrative 03/25/2020 1:12 PM EST RESPONSIBLE SECURITIES COUNSELOR: Joshua Arora M.D. EXAMINATION: DEXA BONE DENSITY CENTRAL CLINICAL INDICATION: Osteoporosis screening. ??Post menopause . TECHNIQUE: Dual Energy X-Ray Absorptiometry (DEXA t [facility]) was performed with measurements of the [...] might be different from the original. RESPONSIBLE SECURITIES COUNSELOR: Joshua Arora M.D. EXAMINATION: DEXA BONE DENSITY CENTRAL CLINICAL INDICATION: Osteoporosis screening. Post menopause. TECHNIQUE: Dual Energy X-Ray Absorptiometry [facility] was performed with measurements of the lumbar [...] sheets). Dictated: 03/25/2020 1:12 PM Report ID: [id number] Report signed in external system at 03/25 13:12 Reported By: Joshua Arora M.D. ([facility]) Signed By: Joshua Arora M.D. ([facility]) Kevin Miranda MD IMG DXA PROCEDURES documented in this encounter Visit Diagnoses Diagnosis Osteopenia, unspecified location documented in this encounter Care Teams Wing Scorer Relationship Specialty Start Date End Date Kevin Miranda MD PCP - General Family Medicine 11/20/19 1020 [place] [address] documented as of this encounter
--- OUTSIDE RECORDS SUMMARY | 2021-11-18 12:27 | XMS_ITS | Encounter Summary ---
:1945 Author Organization [facility] Address 330 [facility], [address] [place] [address] Care Team Providers Name Role Phone Kevin Miranda MD Primary Care Provider Encounter Details Date Type Department Care Team Description 05/24/2020 Scan Document - View [facility]ik [facility] Kevin Miranda, in Chart Practice [address] [place], [place] [address] [place], [place] [phone] Social History Tobacco Use Types Packs/Day Years [...] Visit Family Medicine Kevin Miranda MD [address] [place] [phone] (Wo rk) documented as of this encounter Visit Diagnoses Not on filedocumented in this encounter Care Teams Electrical Logger Relationship Specialty Start Date End Date Kevin Miranda MD PCP - General Family Medicine 11/20/[address] [place] [address] documented as of this encounter
--- OUTSIDE RECORDS SUMMARY | 2021-11-18 12:27 | XMS_ITS | Encounter Summary ---
:1945 Author Organization [facility] Address [address] [facility], [address] [place] [address] Care Team Providers Name Role Phone Kevin Miranda MD Primary Care Provider Encounter Details Date Type Department Care Team Description 11/23/2019 Office Visit Kaushik Miranda, Encounter for Medicare annual wellness exam (Primary Dx); Practice MD Kevin Other emphysema ([facility]); [address] Gastroesophageal reflux disease without esophagitis; [place] [address] [place] Insomnia, unspecified type; [phone] Osteopenia, unspecified location; [phone] Primary osteoar thritis of right hip; (Work) Spasm of muscle of lower back; [phone] Need for influe nza vaccination; (Fax) Screening [...] file Gets together: Not on file Attends shinto service: Not on file Active member of [...] with and son. Works 1 day/wk at [employer], likes it. Meditates, swims, involved in [employer] group, reads. Current Outpatient Medications Medication Sig [...] recommended due to inadequate prep at sigmoid ([id number]) Skin cancer prevention and symptoms discussed, encouraged [...] 12:12 PM EDTAssociated Problem(s): Other emphysema (CMS/[facility]ER[facility]) Dx via PFT in 11/30, [...] Visit Family Medicine Kevin Miranda MD [address] [place], [place] [address] (Wo rk) documented as [...] (11/23/2019 2:18 PM EDT) Analysis Performed At [facility] logis Time Signature Vitamin D 25 34 30 - 100 [facility] Hydroxy,Total ng/mL [facility] Comment: Vitamin D Status ? 25-OH Vitam in D: Deficiency: ?<20 ng/mL Insufficiency: ? 20 - 29 ng/mL Optimal: ? > or = 30 ng/mL For 25-OH Vitamin D testing on patients on D2-supplementation and patients for whom quantitation of D2 and D3 fractions is required, the QuestAssure[facility](TM) 25-OH VIT D, (D2,D3), LC/MS/MS is recomm ended: order code 72372 (patients >2yrs). See Note 1 Note 1 For additional information, please refer to http://education.IQ Elite.Apothesource/fa q/AWR199 (This link is being provided for informa tional/ educational purposes only.) Specimen Anatomical Collection Method Collection Time Receive d Time (Source) Location / / Volume Laterality Blood Venous blood / 11/23/2019 2:18 PM 020 2:19 Unknown EDT PM EDT Kevin Miranda MD LAB BLOOD ORDERABLES Performing Organization Address City/State/ZIP Code Phon e Number J. Hilburn [address] [phone] [place] [address], [address] [facility] [address] [place] [address], [facility] [address] [phone] Diagnost Basic Metabolic Panel - [facility] (11/23/2019 2:18 PM EDT) P athologist Signature Glucose 84 65 - 99 [facility] mg/dL [facility] Comment: ? Fasting reference interv al Bun 18 7 - 25 mg/dL [facility] Creatinine, Ser 0.77 0.60 - 0.93 mg/dL [facility] Comment: For patients >49 years of age, the refer ence limit for Creatinine is approximately 13% high er for people identified as -Swiss. eGFR NON-AFR. 77 > OR = 60 mL/min/1.73m2 Qu est Diagnostics [facility] eGFR 89 > OR = 60 mL/min/1.73m2 Que st Diagnostics [facility] BUN/Creatinine NOT APPLICABLE 6 - 22 (calc) [facility] Ratio [facility] Sodium 138 135 - 146 mmol/L [facility] Potassium 3.9 3.5 - 5.3 mmol/L [facility] Chloride 101 98 - 110 mmol/L [facility] CO2 27 20 - 32 mmol/L [facility] Calcium 9.3 8.6 - 10.4 mg/dL [facility] Specimen Anatomical Collection Method Collection Time Receive d Time (Source) Location / / Volume Laterality Blood Venous blood / 11/23/2019 2:18 PM 020 2:19 Unknown EDT PM EDT Kevin Miranda MD LAB BLOOD ORDERABLES Performing Organization Address City/State/ZIP Code Phon e Number [email or web address] [address] [phone] [place] [address] B [facility] [address] [place] [address], [facility] [employer] [address] [phone] Diagnost (ABNORMAL) Lipid Panel, Standard - [facility] (11/23/2019 2:18 PM EDT) Patholo gist Method Time Signature Cholesterol, 228 (H) <200 [facility] Total mg/dL [facility] HDL Cholesterol 114 > OR = 50 [facility] ics mg/dL [facility] TRIGS 76 <150 [facility] mg/dL [facility] LDL Cholesterol 97 mg/dL [facility] ics (calc) [facility] Comment: Reference range: <100 Desirable range <100 [...] SS et al. GEOVANNA. 2013;310(19): 206 1-2068 (http://education.MedNet Solutions/f aq/TWE081) HDL 2.0 <5.0 (calc) [facility] Non HDL Chol. (LDL+VLDL) 114 <130 mg/dL (calc) [facility] Comment: For patients with diabetes plus 1 [...] Organization Address City/State/ZIP Code Phon e Number J. Hilburn [address] [phone] [facility] [address] [place] [address] [email or web address] [address] [phone] Diagnost documented in this encounter Visit Diagnoses Diagnosis Encounter for Medicare annual wellness e xam - Primary Other emphysema (CMS/[facility]) Other emphysema Gastroesophageal reflux disease without esophagitis Esophageal reflux Insomnia, unspecified type Osteopenia, unspecified location Primary osteoarthritis of right hip Spasm of muscle of lower back Need for influenza vaccination Need for prophylactic vaccination and in oculation against influenza Screening for depression documented in this encounter Care Teams Grease Man Relationship Specialty Start Date End Date Kevin iMranda MD PCP - General Family Medicine 11/20/[address] [place], [place] [id number] documented as of this encounter
--- OUTSIDE RECORDS SUMMARY | 2021-11-18 12:27 | XMS_ITS | Encounter Summary ---
:1945 Author Organization [facility] Address 330 [facility], [address] [place] [address] Care Team Providers Name Role Phone Kevin [...] Visit Family Medicine Kevin Miranda MD [address] [place] [address] (Wo rk) documented as of this encounter Visit Diagnoses Not on filedocumented in this encounter Care Teams Program Proposals Coordinator Relationship Specialty Start Date End Date Kevin Miranda MD PCP - General Family Medicine 11/20/[address] [place] [address] documented as of this encounter
--- OUTSIDE RECORDS SUMMARY | 2021-11-18 12:27 | XMS_ITS | Encounter Summary ---
:1945 Author Organization [facility] Address 330 [facility], [address] [place] [address] Care Team Providers Name Role Phone Kevin Miranda MD Primary Care Provider Encounter Details Date Type Department Care Team Description 12/14/2019 Scan Document - View Kevin Trimble, in Chart Practice [address] [place] [address] [place], [place] [phone] Social History Tobacco Use Types Packs/Day Years [...] Visit Family Medicine Kevin Miranda MD [address] [place] [address] (Wo rk) documented as of this encounter Visit Diagnoses Not on filedocumented in this encounter Care Teams Auto Parts Clerk Relationship Specialty Start Date End Date Kevin Miranda MD PCP - General Family Medicine 11/20/19 [address] [place] [address] documented as of this encounter
--- OUTSIDE RECORDS SUMMARY | 2021-11-18 12:27 | XMS_ITS | Encounter Summary ---
:1945 Author Organization [facility] Address [address] [facility], [address] [place] [address] Care Team Providers Name Role Phone Kevin [...] Office Visit Family Medicine Kevin Miranda MD [address] [place] [address] (Wo rk) documented as of this encounter Visit Diagnoses Not on filedocumented in this encounter Care Teams Special Education Math Teacher Relationship Specialty Start Date End Date Kevin Miranda MD PCP - General Family Medicine 11/20/[address] [place] [address] documented as of this encounter
--- OUTSIDE RECORDS SUMMARY | 2021-11-18 12:27 | XMS_ITS | Encounter Summary ---
:1945 Author Organization [facility] Address 330 [facility], [address] [place] [address] Care Team Providers Name Role Phone Kevin Miranda MD Primary Care Provider Encounter Details Date Type Department Care Team Description 09/10/2020 Scan Document - View Kaushik [facility] Kevin Miranda, in Chart Practice [address] [place], [place] [address] [place], [place] [phone] Social History Tobacco Use Types Packs/Day Years [...] Office Visit Family Medicine Kevin Miranda MD [address] [place] [address] (Wo rk) documented as of this encounter Visit Diagnoses Not on filedocumented in this encounter Care Teams Body Shop Estimator Relationship Specialty Start Date End Date Kevin Miranda MD PCP - General Family Medicine 11/20/[address] [place] [address] documented as of this encounter
--- OUTSIDE RECORDS SUMMARY | 2021-11-18 12:27 | XMS_ITS | Encounter Summary ---
:1945 Author Organization [facility] Address [address] [facility], [address] [place] [address] Care Team Providers Name Role Phone Kevin Miranda MD Primary Care Provider Reason for Visit Reason Comments Diverticulitis Encounter Details Date Type Department Care Team Description 12/05/2019 Office Visit [facility] [place] [facility], Diverticuli tis of large [facility] Michele Wills MD intestine with abscess [address] [facility], [address] without [address] [place] [address] [phone] Social History Tobacco Use Types Packs/Day Years [...] Office Visit Family Medicine Kevin Miranda MD [address] [place] [address] (Wo rk) documented as of this encounter Visit Diagnoses Diagnosis Diverticulitis of large intestine with a bscess without bleeding documented in this encounter Care Teams Dryer Feeder Relationship Specialty Start Date End Date Kevin Miranda MD PCP - General Family Medicine 11/20/[address] [place] [address] documented as of this encounter
--- OUTSIDE RECORDS SUMMARY | 2021-11-18 12:27 | XMS_ITS | Encounter Summary ---
:1945 Author Organization [facility] Address 330 [facility], [address] [place] [address] Care Team Providers Name Role Phone Kevin Miranda MD Primary Care Provider Encounter Details Date Type Department Care Team Description 12/04/2020 [facility] Miranda MD Pre-operative examination (Primary Dx); Practice [address] [place] [address] PVC (premature ventricular contraction) [facility] [place] [address] [phone] Social History Tobacco Use Types Packs/Day Years [...] with Dr. Chávez on 12/16 at [facility] ([place], [place]). She had a pre-op EKG and lab work done with Dr. Chávez 1 month ago. She now has bursitis in her left hip and intermittent back pain from altering her gait to accommodate for her right hip. 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 Looks forward to swimming without hip pain. [...] Visit Family Medicine Kevin Miranda MD [address] [place] [address] (Wo rk) documented as of [...] beats documented in this encounter Care Teams Miniature Set Designer Relationship Specialty Start Date End Date Kevin Miranda MD PCP - General Family Medicine 11/20/19 [address] [place] [address] documented as of this encounter
--- OUTSIDE RECORDS SUMMARY | 2021-11-18 12:27 | XMS_ITS | Encounter Summary ---
:1945 Author Organization [facility] Address 330 [facility], [address] [place] [address] Care Team Providers Name Role Phone Kevin Miranda MD Primary Care Provider Encounter Details Date Type Department Care Team Description 02/26/2020 Orders Only [facility] actice Provider, MD Harsh [address] [place] [address] [phone] Social History Tobacco Use Types Packs/Day Years [...] Visit Family Medicine Kevin Miranda MD [address] [place] [address] (Wo rk) documented as of [...] on filedocumented in this encounter Care Teams Income Tax Administrator Relationship Specialty Start Date End Date Kevin Miranda MD PCP - General Family Medicine 11/20/[address] [place] [address] documented as of this encounter
--- OUTSIDE RECORDS SUMMARY | 2021-11-18 12:27 | XMS_ITS | Encounter Summary ---
:1945 Author Organization [facility] Address [address] [facility], [address] [place] [address] Care Team Providers Name Role Phone Kevin Miranda MD Primary Care Provider Reason for Referral Diagnostic Imaging (Routine) - Closed Specialty Diagnoses / Procedures Referred By Contact Refer red To Contact Diagnoses Pain of right hand Jason Rodriguez MD Procedures X-ray Hand 3+ Views Right [address] [place] [address], [address] [place] [address] Referral ID Status Reason Start Date Expiration Date Visits Requ ested Visits Authorized [id number] Closed 02/23/2020 02/22/2021 1 1 Encounter Details Date Type Department Care Team Description 02/23/2020 Telemedicine Family [facility] Jason Rodriguez MD Pain of right hand 11 [facility], [address] [place] [address], ( Primary Dx) [address] [place] [address] [place], [place] [phone] Social History Tobacco Use Types Packs/Day Years [...] Rodriguez MD [facility] [address], [address] [facility] [phone] documented in this encounter Plan of Treatment Upcoming Encounters Date Type Specialty Care Team Description 11/30/2021 Office Visit Family Medicine Kevin Miranda MD [facility] [place], [place] [address] (Wo rk) Scheduled Orders Name Type Priority Associated Diagnoses Order S chedule X-ray Hand 3+ Views Imaging Routine Pain of right hand Ex pected: 02/23/2020, Right Expires: 2021 documented as of this encounter Visit Diagnoses Diagnosis Pain of right hand - Primary documented in this encounter Care Teams Paper Folder Relationship Specialty Start Date End Date Kevin Miranda MD PCP - General Family Medicine 11/20/[address] [place] [place] [address] documented as of this encounter
--- OUTSIDE RECORDS SUMMARY | 2021-11-18 12:27 | XMS_ITS | Encounter Summary ---
:1945 Author Organization [facility] Address 330 [facility], [address] [place] [address] Care Team Providers Name Role Phone Kevin Miranda MD Primary Care Provider Reason for Referral Specialty (Routine) - Closed Specialty Diagnoses / Procedures Referred By Contact Refer red To Contact Orthopedic Surgery / Diagnoses Primary osteoarthritis of right hip Kevin Miranda MD Orthopaedic Surgery [address] [place] [address] Referral ID Status Reason Start Date Expiration Date Visits V isits Requested Authorized [id number] Closed Specialty 06/05/2020 06/05/2021 1 1 Services Required ehab (Routine) - Closed Specialty Diagnoses / Procedures Referred By Contact Refer red To Contact Physical Therapy Diagnoses Primary osteoarthritis of right hip Kevin Miranda MD [address] [place] [address] Referral ID Status Reason Start Date Expiration Date Visits V isits Requested Authorized [id number] Closed Specialty 06/05/2020 06/05/2021 1 1 Services Required Encounter Details Date Type Department Care Team Description 06/05/2020 Telemedicine [facility] Kevin Miranda, Primary osteoarthritis of right hip (Primary Dx); Practice MD Insomnia, unspecified type [address] [place], [place] [address]way [address] [place] [address] [place], [place] [phone] Social History Tobacco Use Types Packs/Day Years [...] recommended. She first saw Dr. Horn at [facility], who does anterior approach. She had a second opinion with [facility]. Varela at [facility], who does the posterior approach. She wonders [...] pursue another opinion with Dr. Angel at [facility] for another anterior approach option. Continue diclofenac [...] Rodas The physical location of the provider: [facility] office Patient's verbal consent was obtained by [...] pursue another opinion with Dr. Angel at [facility] for another anterior approach option. Continue diclofenac 75 mg BID PRN pain. Agree with PT prior to surgery as well and provided referral. documented in this encounter Plan of Treatment Upcoming Encounters Date Type Specialty Care Team Description 11/30/2021 Office Visit Family Medicine Kevin Miranda MD [address] [place], [place] [address] (Wo rk) Scheduled Referrals [...] type documented in this encounter Care Teams Financial Writer Relationship Specialty Start Date End Date Kevin Miranda MD PCP - General Family Medicine 11/20/19 [address] [place] [address] documented as of this encounter
--- OUTSIDE RECORDS SUMMARY | 2021-11-18 12:27 | XMS_ITS | Encounter Summary ---
:1945 Author Organization [facility] Address 330 [facility], [address] [place] [address] Care Team Providers Name Role Phone Kevin Miranda MD Primary Care Provider Encounter Details Date Type Department Care Team Description 07/16/2020 Scan Document - View Kaushik [facility] Kevin Miranda, in Chart Practice [address] [place], [place] [address] [place], [place] [phone] Social History Tobacco Use Types Packs/Day Years [...] Visit Family Medicine Kevin Miranda MD [address] [place] [address] (Wo rk) documented as of this encounter Visit Diagnoses Not on filedocumented in this encounter Care Teams Public Area Supervisor Relationship Specialty Start Date End Date Kevin Miranda MD PCP - General Family Medicine 11/20/[address] [place] [address] documented as of this encounter
--- OUTSIDE RECORDS SUMMARY | 2021-11-18 12:27 | XMS_ITS | Encounter Summary ---
:1945 Author Organization [facility] Address [address] [facility], [address] [place] [address] Care Team Providers Name Role Phone Kevin Miranda MD Primary Care Provider Encounter Details Date Type Department Care Team Description 01/08/2020 Telemedicine [facility] Kevin Miranda, Advance care planning Practice (Primary Dx) [facility] [address] [phone] Social History Tobacco Use Types Packs/Day Years [...] Rodas The physical location of the provider: [facility] office Patient's verbal consent was obtained by [...] Visit Family Medicine Kevin Miranda MD [address] [place] [address] (Wo rk) documented as of this encounter Visit Diagnoses Diagnosis Advance care planning - Primary Other specified counseling documented in this encounter Care Teams Administrative Professional Relationship Specialty Start Date End Date Kevin Miranda MD PCP - General Family Medicine 11/20/[address] [place] [address] documented as of this encounter
--- OUTSIDE RECORDS SUMMARY | 2021-11-18 12:27 | XMS_ITS | Encounter Summary ---
:1945 Author Organization [facility] Address [address] [facility], [address] [place] [address] Care Team Providers Name Role Phone Kevin [...] Visit Family Medicine Kevin Miranda MD [address] [place] [address] (Wo rk) documented as of this encounter Visit Diagnoses Not on filedocumented in this encounter Care Teams Rn Team Leader Relationship Specialty Start Date End Date Kevin Miranda MD PCP - General Family Medicine 11/20/[address] [place] [address] documented as of this encounter
--- OUTSIDE RECORDS SUMMARY | 2021-11-18 12:27 | XMS_ITS | Encounter Summary ---
:1945 Author Organization [facility] Address 330 [facility], [address] [place] [address] Care Team Providers Name Role Phone Laurie Elias NP Primary Care Provider Unavailable Reason for Visit Reason Comments Med Refill Encounter Details Date Type Department Care Team Description 06/06/2019 Refill [facility] actice Laurie Elias NP [facility] [place] [address] Social History Tobacco Use Types Packs/Day Years [...] Office Visit Family Medicine Kevin Miranda MD [facility] [place], [place] [address] (Wo rk) documented as of this encounter Visit Diagnoses Not on filedocumented in this encounter Care Teams Solutions Sales Executive Relationship Specialty Start Date End Date Laurie Elias NP PCP - General Family Medicine 03/02/1811/19/19 documented as of this encounter
--- OUTSIDE RECORDS SUMMARY | 2021-11-18 12:27 | XMS_ITS | Encounter Summary ---
:1945 Author Organization [facility] Address 330 [facility], [address] [place] [address] Care Team Providers Name Role Phone Kevin Miranda MD Primary Care Provider Encounter Details Date Type Department Care Team Description 11/27/2019 Refill [facility] Pr actice Kevin Miranda MD [address] [place] [address] [place] [address] [phone] (Wo rk) Social History Tobacco Use Types [...] Visit Family Medicine Kevin Miranda MD [address] [place] [address] (Wo rk) documented as of this encounter Visit Diagnoses Not on filedocumented in this encounter Care Teams Rn Stars Relationship Specialty Start Date End Date Kevin Miranda MD PCP - General Family Medicine 11/20/19 1020 [place] [address] documented as of this encounter
--- OUTSIDE RECORDS SUMMARY | 2021-11-18 12:27 | XMS_ITS | Encounter Summary ---
:1945 Author Organization [facility] Address 330 [facility], [address] [place] [address] Care Team Providers Name Role Phone Kevin Miranda MD Primary Care Provider Reason for Referral Rehab (Routine) - Closed Specialty Diagnoses / Procedures Referred By Contact Refer red To Contact Physical Therapy Diagnoses Right hip pain Kevin Miranda MD [address] [place] [address] Referral ID Status Reason Start Date Expiration Date Visits V isits Requested Authorized [id number] Closed Specialty 02/18/2020 02/17/2021 1 1 Services Required Encounter Details Date Type Department Care Team Description 02/18/2020 Orders Only Kevin Trimble, h ip pain (Primary Practice MD Dx) [address] [place] [address] Social History Tobacco Use Types Packs/Day Years [...] Visit Family Medicine Kevin Miranda MD [address] [place], [place] [address] (Wo rk) Scheduled Referrals Name Type Priority Associated Order Schedule Diagnoses Ambulatory referral Outpatient Referral Routine Right hip pain 1 Occurrences to Physical Therapy starting 02/18/2020 until documented as of this encounter Visit Diagnoses Diagnosis Right hip pain - Primary Pain in joint, pelvic region and thigh documented in this encounter Care Teams Plant Clerk Relationship Specialty Start Date End Date Kevin Miranda MD PCP - General Family Medicine 11/20/19 [address] [place] [address] documented as of this encounter
--- OUTSIDE RECORDS SUMMARY | 2021-11-18 12:27 | XMS_ITS | Encounter Summary ---
:1945 Author Organization [facility] Address [address] [facility], [address] [place] [address] Care Team Providers Name Role Phone Kevin Miranda MD Primary Care Provider Encounter Details Date Type Department Care Team Description 12/07/2020 Scan Document - View [facility]hik [facility] Kevin Miranda, in Chart Practice [address] [place], [place] [address] [place], [place] [phone] Social History Tobacco Use Types Packs/Day Years [...] Visit Family Medicine Kevin Miranda MD [address] [place] [address] (Wo rk) documented as of this encounter Visit Diagnoses Not on filedocumented in this encounter Care Teams Commercial Baking Teacher Relationship Specialty Start Date End Date Kevin Miranda MD PCP - General Family Medicine 11/20/[address] [place] [address] documented as of this encounter
--- OUTSIDE RECORDS SUMMARY | 2021-11-18 12:27 | XMS_ITS | Encounter Summary ---
:1945 Author Organization [facility] Address [address] [facility], [address] [place] [address] Care Team Providers Name Role Phone Kevin Miranda MD Primary Care Provider Reason for Visit Reason Onset Date Comments Med Refill 09/30/2020 Encounter Details Date Type Department Care Team Description 09/30/2020 Refill [facility] Pr actice Kevin Miranda MD [facility] [address] [address] [place] [address] [phone] (Wo rk) Social History Tobacco Use Types [...] Visit Family Medicine Kevin Miranda MD [address] [place] [address] (Wo rk) documented as of this encounter Visit Diagnoses Not on filedocumented in this encounter Care Teams Industrial Electrician Journeyman Relationship Specialty Start Date End Date Kevin Miranda MD PCP - General Family Medicine 11/20/[address] [place] [address] documented as of this encounter
--- OUTSIDE RECORDS SUMMARY | 2021-11-18 12:27 | XMS_ITS | Encounter Summary ---
:1945 Author Organization [facility] Address 330 [facility], [address] [place] [address] Care Team Providers Name Role Phone Kevin Miranda MD Primary Care Provider Encounter Details Date Type Department Care Team Description 03/05/2020 Scan Document - View Kaushik [facility] Kevin Miranda, in Chart Practice [address] [place] [address] [place], [place] [phone] Social History Tobacco Use Types Packs/Day Years [...] Visit Family Medicine Kevin Miranda MD [address] [place] [address] (Wo rk) documented as of this encounter Visit Diagnoses Not on filedocumented in this encounter Care Teams Table Worker Packager Relationship Specialty Start Date End Date Kevin Miranda MD PCP - General Family Medicine 11/20/19 [address] [place] [address] documented as of this encounter
--- OUTSIDE RECORDS SUMMARY | 2021-11-18 12:27 | XMS_ITS | Encounter Summary ---
:1945 Author Organization [facility] Address 330 [facility], [address] [place] [address] Care Team Providers Name Role Phone Kevin Miranda MD Primary Care Provider Encounter Details Date Type Department Care Team Description 02/05/2020 Refill [facility] Pr actice Kevin Miranda MD [address] [place] [address] [place] [address] [phone] (Wo rk) Social History Tobacco Use Types [...] Visit Family Medicine Kevin Miranda MD [address] [place] [address] (Wo rk) documented as of this encounter Visit Diagnoses Not on filedocumented in this encounter Care Teams Management Professionals Relationship Specialty Start Date End Date Kevin Miranda MD PCP - General Family Medicine 11/20/19 1020 [place] [address] documented as of this encounter
--- OUTSIDE RECORDS SUMMARY | 2021-11-18 12:28 | XMS_ITS | Encounter Summary ---
:1945 Author Organization [facility] Address 330 [facility], [address] [place] [address] Care Team Providers Name Role Phone JadaHeatherLaurie LIBRARY PARAPROFESSIONAL Primary Care Provider Unavailable Encounter Details Date Type Department Care Team Description 05/30/2018 Rehab [facility] Physical Se lázaro Jason MD [address] [place] [address] Chronic low back pain, Therapy Pricila Curry, PT unspecified back pain [address] [facility], [facility], with [address] [place] [address] unspecified (Primary Dx) [phone] Social History Tobacco Use Types Packs/Day Years Used Date Former Smoker Smokeless Tobacco: Never Used Alcohol Use Standard Drinks/Week Comments Defer 0 (1 standard drink = 0.6 oz pure alcoho l) Sex Assigned at Date Recorded Female 04/12/2019 2:19 PM EST documented as of this encounter Progress Notes Pricila Curry, PT - 05/30/2018 2:30 PM EDT [facility] Physical Therapy [address] [facility], [address] [facility] [address] PROGRESS NOTE visit 9 [facility] Molly Rios is a 73 y.o. female.who has been referred to physical therapy by Dr. Jason with dx of R hip pain(decreased ROM, pelvic pain, groin pain, R SI pain, chronic glut medius tendinopathy). Pt reports she is a very active person at baseline. Noticed R LBP in June after swimming (changedher technique and pain improved). Pt seen by PT at [facility] for R hip pain. Started doing side lying hip abd with 5 lb. Developed more pain (? Overdid her ex). + R sided groin pain. CC is weakness B hips. Referred to PT for consult. Will f/u with MD after completion of PT. Seen by ortho at [facility]-x-rays done, advised to strengthen/stretch R LE. ?? [...] in 6 weeks S/p visit to ortho [facility] (Dr. Coleman)- R groin pain is from [...] Office Visit Family Medicine Kevin Miranda MD [facility]0 [place], [place] [address] (Wo rk) documented as of this encounter Visit Diagnoses Diagnosis Chronic low back pain, unspecified back pain laterality, with sciatica presence unspecified - Primary documented in this encounter Care Teams Bean Dumper Relationship Specialty Start Date End Date Laurie Elias NP PCP - General Family Medicine 03/02/1811/19/19 documented as of this encounter
--- OUTSIDE RECORDS SUMMARY | 2021-11-18 12:28 | XMS_ITS | Encounter Summary ---
:1945 Author Organization [facility] Address 330 [facility], [address] [place] [address] Care Team Providers Name Role Phone Laurie Elias TABLEAU LEAD Primary Care Provider Unavailable Encounter Details Date [...] Office Visit Family Medicine Kevin Miranda MD [address] [place] [address] (Wo rk) documented as of this encounter Visit Diagnoses Not on filedocumented in this encounter Care Teams Physical Therapy Aides Teacher Relationship Specialty Start Date End Date Laurie Elias NP PCP - General Family Medicine 03/02/1811/19/19 documented as of this encounter
--- OUTSIDE RECORDS SUMMARY | 2021-11-18 12:28 | XMS_ITS | Encounter Summary ---
:1945 Author Organization [facility] Address 330 [facility], [address] [place] [address] Care Team Providers Name Role Phone Laurie Elias NP Primary Care Provider Unavailable Encounter Details Date Type Department Care Team Description 03/07/2019 Refill [facility] actLaurie Carr NP [facility]0 [place] [address] Social History Tobacco Use Types Packs/Day Years [...] Visit Family Medicine Kevin Miranda MD [address] [place], [place] [address] (Wo rk) documented as of this encounter Visit Diagnoses Not on filedocumented in this encounter Care Teams Scientific Research Manager Relationship Specialty Start Date End Date Laurie Elias NP PCP - General Family Medicine 03/02/1811/19/19 documented as of this encounter
--- OUTSIDE RECORDS SUMMARY | 2021-11-18 12:28 | XMS_ITS | Encounter Summary ---
:1945 Author Organization [facility] Address 330 [facility], [address] [place] [address] Care Team Providers Name Role Phone Laurie Elias AREA CLEANER Primary Care Provider Unavailable Encounter Details Date Type Department Care Team Description 10/06/2018 Telephone [facility] zurtia [facility] 330 [facility], [address] [facility] [address], [facility] [address] [place], [place] [address] [place] [address] [phone] (Wo rk) Social History Tobacco Use Types [...] Visit Family Medicine Kevin Miranda MD [address] [place] [address] (Wo rk) documented as of this encounter Visit Diagnoses Not on filedocumented in this encounter Care Teams Production Hand Relationship Specialty Start Date End Date Laurie Elias NP PCP - General Family Medicine 03/02/1811/19/19 documented as of this encounter
--- OUTSIDE RECORDS SUMMARY | 2021-11-18 12:28 | XMS_ITS | Encounter Summary ---
:1945 Author Organization [facility] Address 330 [facility], [address] [place] [address] Care Team Providers Name Role Phone Laurie Elias NP Primary Care Provider Unavailable Encounter Details Date Type Department Care Team Description 09/06/2018 Telephone [facility] Laurie Brown NP [address] [place] [address] Social History Tobacco Use Types Packs/Day Years [...] Visit Family Medicine Kevin Miranda MD [address] [place], [place] [address] (Wo rk) documented as of this encounter Visit Diagnoses Not on filedocumented in this encounter Care Teams Program Research Specialist Relationship Specialty Start Date End Date Laurie Elias NP PCP - General Family Medicine 03/02/1811/19/19 documented as of this encounter
--- OUTSIDE RECORDS SUMMARY | 2021-11-18 12:28 | XMS_ITS | Encounter Summary ---
:1945 Author Organization [facility] Address 330 [facility], [address] [place] [address] Care Team Providers Name Role Phone Kevin Miranda MD Primary Care Provider Reason for Visit Reason Comments Med Refill Encounter Details Date Type Department Care Team Description 09/05/2018 Refill [facility] Laurie Brown, SWIMMER [facility]0 [place] [address] Social History Tobacco Use Types Packs/Day Years [...] Visit Family Medicine Kevin Miranda MD [address] [place] [address] (Wo rk) documented as of this encounter Visit Diagnoses Not on filedocumented in this encounter Care Teams Mercury Purifier Relationship Specialty Start Date End Date Kevin Miranda MD PCP - General Family Medicine 11/20/[address] [place] [address] documented as of this encounter
--- OUTSIDE RECORDS SUMMARY | 2021-11-18 12:28 | XMS_ITS | Encounter Summary ---
:1945 Author Organization [facility] Address 330 [facility], [address] [place] [address] Care Team Providers Name Role Phone Laurie Elias NP Primary Care Provider Unavailable Reason for Visit Reason Comments Fever Encounter Details Date Type Department Care Team Description 04/09/2019 Office Visit Kevin Trimble, Viet c ystitis with hematuria (Primary Dx); Practice Diverticulitis [facility]0 [place] [address] [place] [address] [place], [place] [phone] Social History Tobacco Use Types Packs/Day Years [...] performed in my presence by the medical office coordinator and verified by me. This note is an accurate record of the services performed and decisions made by Kevin Miranda MD. documented in this encounter Plan of Treatment Upcoming Encounters Date Type Specialty Care Team Description 11/30/2021 Office Visit Family Medicine Kevin Miranda MD [address] [place], [place] [address] (Wo rk) documented as [...] (04/09/2019 4:48 PM EST) Analysis Performed At [facility] Time Signature Urine Culture (A) [facility] Comment: ??CULTURE, URINE, ROUTINE ?Micro Number: ?[id number] ??Test Status: ? Final ??Specimen Source: ?? [...] Organization Address City/State/ZIP Code Phon e Number [employer] [address] [phone] [place] [address] [address] [place], [place] [address] [address] [address] Diagnost POCT Urinalysis dipstick (04/09/2019 4:14 PM EST) [facility] gist Method Time Signature Color, UA [...] hemorrhage) documented in this encounter Care Teams Refrigeration Brazer/Solderer Relationship Specialty Start Date End Date Laurie Elias NP PCP - General Family Medicine 03/02/1811/19/19 documented as of this encounter
--- OUTSIDE RECORDS SUMMARY | 2021-11-18 12:28 | XMS_ITS | Encounter Summary ---
:1945 Author Organization [facility] Address [address] [facility], [address] [place] [address] Care Team Providers Name Role Phone Laurie Elias SOFTWARE ENGINEERING PROJECT MANAGER Primary Care Provider Unavailable Encounter Details Date [...] Office Visit Family Medicine Kevin Miranda MD [address] [place] [address] (Wo rk) documented as of this encounter Visit Diagnoses Not on filedocumented in this encounter Care Teams Regional Airline Pilot Relationship Specialty Start Date End Date Laurie Elias NP PCP - General Family Medicine 03/02/1811/19/19 documented as of this encounter
--- OUTSIDE RECORDS SUMMARY | 2021-11-18 12:28 | XMS_ITS | Encounter Summary ---
:1945 Author Organization [facility] Address 330 [facility], [address] [place] [address] Care Team Providers Name Role Phone Laurie Elias ADJUNCT PHLEBOTOMY INSTRUCTOR Primary Care Provider Unavailable Reason for Visit Reason Comments Annual Exam Encounter Details Date Type Department Care Team Description 06/08/2018 Office Visit Kaushik Elias, Annual phy sical exam (Primary Dx); Practice ANN Sullivan Screening for depression; [address] [place] Diverticulitis; [place] [address] Insomnia, unspecified type; [phone] Acute pain of r ight shoulder; Osteopenia, [...] (q 6 months) at [facility] (Dr. Rosenberg). 3. She sees Dr. Harrison at [facility] for routine eye care 4. Sleep disorder: [...] PT 6. 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 For [...] fiber regimen. F/u with Dr. Gorman ([facility]) for routine f/u and colonoscopy. Relevant [...] fiber regimen. F/u with Dr. Gorman ([facility] gastroenterology) for routine f/u and colonoscopy. documented in this encounter Plan of Treatment Upcoming Encounters Date Type Specialty Care Team Description 11/30/2021 Office Visit Family Medicine Kevin Miranda MD [address] [place] [address] (Wo rk) documented as of [...] encounter Results CBC (06/27/2018 10:04 AM EDT) [facility] Method Time Signature White Blood 7.0 3.8 - 10.8 [facility] Count Thousand/u [place] [facility] Red Blood Count 4.30 3.80 - [facility] ics 5.10 [place] Million/uL [facility] Hemoglobin 13.3 11.7 - [facility] 15.5 g/dL [place] [facility] Hematocrit 40.2 35.0 - [facility] 45.0 % [place] [facility] MCV 93.5 80.0 - [facility] 100.0 fL [place] [facility] MCH 30.9 27.0 - [facility] 33.0 pg [place] [employer] [facility] MCHC 33.1 32.0 - [facility] 36.0 g/dL [place] [facility] [facility] MRDW 12.6 11.0 - [facility] 15.0 % [place] [facility] [facility] Platelet count 321 140 - 400 [employer] [facility] Thousand/u [facility] MPV 10.0 7.5 - 12.5 [facility] fL [place] [facility] Specimen Anatomical Collection Method Collection Time Receive d Time (Source) Location / / Volume Laterality Blood Venous blood / 06/27/2018 10:04 9 Unknown AM EDT 10:04 AM EDT Narrative [facility] - 06/28/2018 4:45 AM EDT FASTING:YES FASTING: YES Laurie Elias NP LAB BLOOD ORDERABLES Performing Organization Address City/State/ZIP Code Phon e Number [employer] [address] [phone] [email or web address] [address] [place] [address] [facility] [address] [address] Diagnost (ABNORMAL) Lipid Panel with Reflex to Direct LDL (06/27/2018 10:04 AM EDT) [facility] Method Time Signature Cholesterol, 206 (H) <200 [facility] Total mg/dL [place] [employer] [facility] HDL Cholesterol 91 >50 mg/dL [facility] [place] [facility] TRIGS 53 <150 [facility] mg/dL [place] [facility] LDL Cholesterol 101 (H) mg/dL [employer] ics (calc) [place] [facility] Comment: Reference range: <100 Desirable range <100 [...] CARTER et al. GEOVANNA. 2013;310(19): 206 1-2068 (http://education.Prevently.Reality Sports Online/f aq/VCF871) HDL 2.3 <5.0 (calc) [facility] [place] [facility] Non HDL Chol. (LDL+VLDL) 115 <130 mg/dL (calc) [email or web address] [place] [facility] Comment: For patients with diabetes plus [...] Organization Address City/State/ZIP Code Phon e Number [employer] [address] [phone] [place] [address] B [email or web address] [address] [place] [address] [facility] [address] [address] Diagnost Basic metabolic panel (06/27/2018 10:04 AM EDT) athologist Signature Glucose 89 65 - 99 [email or web address] mg/dL [place] [facility] Comment: ? Fasting reference interv al Bun 23 7 - 25 mg/dL [email or web address] [place] [facility] Creatinine, Ser 0.73 0.60 - 0.93 mg/dL [email or web address] [place] [facility] Comment: For patients >49 years of age, the refer ence limit for Creatinine is approximately 13% high er for people identified as -Lithuanian. eGFR NON-AFR. 83 > OR = 60 mL/min/1.73m2 Qu est [facility] eGFR 96 > OR = 60 mL/min/1.73m2 Que [facility] BUN/Creatinine NOT APPLICABLE 6 - 22 (calc) [facility] Ratio [place] [employer] Sodium 142 135 - 146 mmol/L [facility] [place] [facility] Potassium 4.9 3.5 - 5.3 mmol/L [facility] [place] [facility] Chloride 105 98 - 110 mmol/L [facility] [place] [employer] CO2 32 20 - 32 mmol/L [facility] Calcium 9.4 8.6 - 10.4 mg/dL [facility] [place] [facility] Specimen Anatomical Collection Method Collection Time Receive d Time (Source) Location / / Volume Laterality Blood Venous blood / 06/27/2018 10:04 9 Unknown AM EDT 10:04 AM EDT Narrative [facility] - 06/28/2018 4:45 AM EDT FASTING:YES FASTING: YES Laurie Elias NP LAB BLOOD ORDERABLES Performing Organization Address City/State/ZIP Code Phon e Number [employer] [address] [phone] [place] [address], [address] [email or web address] [address] [place] [address], [facility] [address] [address] Diagnost documented in this encounter Visit Diagnoses [...] mellitus documented in this encounter Care Teams Heat Treat Operator Relationship Specialty Start Date End Date Laurie Elias NP PCP - General Family Medicine 03/02/1811/19/19 documented as of this encounter
--- OUTSIDE RECORDS SUMMARY | 2021-11-18 12:28 | XMS_ITS | Encounter Summary ---
:1945 Author Organization [facility] Address 330 [facility], [address] [place] [address] Care Team Providers Name Role Phone Laurie Elias WARP TYING MACHINE KNOTTER Primary Care Provider Unavailable Encounter Details Date Type Department Care Team Description 04/27/2018 Refill [facility] actLaurie Carr NP [facility]0 [place] [address] Social History Tobacco Use Types Packs/Day Years [...] Visit Family Medicine Kevin Miranda MD [address] [place], [place] [address] (Wo rk) documented as of this encounter Visit Diagnoses Not on filedocumented in this encounter Care Teams Mixing Operator Relationship Specialty Start Date End Date Laurie Elias NP PCP - General Family Medicine 03/02/1811/19/19 documented as of this encounter
--- OUTSIDE RECORDS SUMMARY | 2021-11-18 12:28 | XMS_ITS | Encounter Summary ---
:1945 Author Organization [facility] Address 330 [facility], [address] [place] [address] Care Team Providers Name Role Phone Laurie Elias PARTY PLAN SALES DIRECTOR Primary Care Provider Unavailable Encounter Details Date Type Department Care Team Description 11/30/2018 Refill [facility] actLaurie Carr NP [facility] [place] [address] Social History Tobacco Use Types Packs/Day Years [...] Visit Family Medicine Kevin Miranda MD [facility]0 [place], [place] [address] (Wo rk) documented as of this encounter Visit Diagnoses Not on filedocumented in this encounter Care Teams Leaf Stripper Relationship Specialty Start Date End Date Laurie Elias NP PCP - General Family Medicine 03/02/1811/19/19 documented as of this encounter
--- OUTSIDE RECORDS SUMMARY | 2021-11-18 12:28 | XMS_ITS | Encounter Summary ---
:1945 Author Organization [facility] Address 330 [facility], [address] [place] [address] Care Team Providers Name Role Phone Kevin Miranda MD Primary Care Provider Reason for Visit Auth/Cert Specialty Diagnoses / Procedures Referred By Contact Refer red To Contact Diagnoses Pericolonic abscess Procedures n/a Referral ID Status Reason Start Date Expiration Date Visits Requ ested Visits Authorized [id number] 1 1 Encounter Details Date Type Department Care Team Description 04/12/2019 Billing Encounter [facility] Main Lab Kevin Miranda MD 330 [facility] eet [address] [place] [address] [place], [place] [phone] (Wo raine) Social History Tobacco Use Types [...] Visit Family Medicine Kevin Miranda MD [address] [place] [address] (Wo raine) documented as of this encounter Visit Diagnoses Not on filedocumented in this encounter Care Teams Air Traffic Controller Relationship Specialty Start Date End Date Kevin Miranda MD PCP - General Family Medicine 11/20/19 10[address] [place] [address] documented as of this encounter
--- OUTSIDE RECORDS SUMMARY | 2021-11-18 12:28 | XMS_ITS | Encounter Summary ---
:1945 Author Organization [facility] Address 330 [facility], [address] [place] [address] Care Team Providers Name Role Phone JadaHeather zhaoecca ANN Primary Care Provider Unavailable Reason for Visit Reason Onset Date Comments Constipation 10/06/2018 Encounter Details Date Type Department Care Team Description 10/06/2018 Telephone [facility] Pr Kendra Grullon RN Constipation [address] [place] [address] Practice [phone] 10[address] [place], [place] [address] Social History Tobacco Use [...] for fever and pain. Patient is in [place] now. Patient will RTC if SXS worse. documented in this encounter Plan of Treatment Upcoming Encounters Date Type Specialty Care Team Description 11/30/2021 Office Visit Family Medicine Kevin Miranda MD [address] [place], [place] [address] (Wo rk) documented as of this encounter Visit Diagnoses Not on filedocumented in this encounter Care Teams It Architect Relationship Specialty Start Date End Date Laurie Elias NP PCP - General Family Medicine 03/02/1811/19/19 documented as of this encounter
--- OUTSIDE RECORDS SUMMARY | 2021-11-18 12:28 | XMS_ITS | Encounter Summary ---
:1945 Author Organization [facility] Address 330 [facility], [address] [place] [address] Care Team Providers Name Role Phone Laurie Elias COMMISSARY WORKER Primary Care Provider Unavailable Encounter Details [...] Office Visit Family Medicine Kevin Miranda MD [address] [place] [address] (Wo rk) documented as of this encounter Visit Diagnoses Not on filedocumented in this encounter Care Teams Bi Application Developer Relationship Specialty Start Date End Date Laurie Elias NP PCP - General Family Medicine 03/02/1811/19/19 documented as of this encounter
--- OUTSIDE RECORDS SUMMARY | 2021-11-18 12:28 | XMS_ITS | Encounter Summary ---
:1945 Author Organization [facility] Address 330 [facility], [address] [place] [address] Care Team Providers Name Role Phone Laurie Elias CRM MARKETING ANALYST Primary Care Provider Unavailable Encounter Details Date [...] Visit Family Medicine Kevin Miranda MD [address] [place] [address] (Wo rk) documented as of this encounter Visit Diagnoses Not on filedocumented in this encounter Care Teams Baling Machine Tender Relationship Specialty Start Date End Date Laurie Elias NP PCP - General Family Medicine 03/02/1811/19/19 documented as of this encounter
--- OUTSIDE RECORDS SUMMARY | 2021-11-18 12:28 | XMS_ITS | Encounter Summary ---
:1945 Author Organization [facility] Address [address] [facility], [address] [place] [address] Care Team Providers Name Role Phone Laurie Elias INDUSTRIAL SERVICE TECHNICIAN Primary Care Provider Unavailable Encounter Details Date Type Department Care Team Description 03/25/2019 Scan Document - View Trini Gómez in Chart Practice INDUSTRIAL SERVICE TECHNICIAN [facility] [place] [address] Social History Tobacco Use Types Packs/Day Years [...] Visit Family Medicine Kevin Miranda MD [address] [place] [phone] (Wo rk) documented as of this encounter Visit Diagnoses Not on filedocumented in this encounter Care Teams Pest Control Worker Helper Relationship Specialty Start Date End Date Laurie Elias NP PCP - General Family Medicine 03/02/1811/19/19 documented as of this encounter
--- OUTSIDE RECORDS SUMMARY | 2021-11-18 12:28 | XMS_ITS | Encounter Summary ---
:1945 Author Organization [facility] Address [address] [facility], [address] [place] [address] Care Team Providers Name Role Phone Laurie Elias RAKE OPERATOR Primary Care Provider Unavailable Encounter Details [...] Visit Family Medicine Kevin Miranda MD [address] [place] [phone] (Wo rk) documented as of this encounter Visit Diagnoses Not on filedocumented in this encounter Care Teams Toll Ticket Clerk Relationship Specialty Start Date End Date Laurie Elias NP PCP - General Family Medicine 03/02/1811/19/19 documented as of this encounter
--- OUTSIDE RECORDS SUMMARY | 2021-11-18 12:28 | XMS_ITS | Encounter Summary ---
:1945 Author Organization [facility] Address [address] [facility], [address] [place] [address] Care Team Providers Name Role Phone Laurie Elias CLINICAL PSYCHOLOGIST PRIVATE PRACTICE Primary Care Provider Unavailable Encounter Details Date [...] Visit Family Medicine Kevin Miranda MD [address] [place] [phone] (Wo rk) documented as of this encounter Visit Diagnoses Not on filedocumented in this encounter Care Teams C Consultant Relationship Specialty Start Date End Date Laurie Elias NP PCP - General Family Medicine 03/02/1811/19/19 documented as of this encounter
--- OUTSIDE RECORDS SUMMARY | 2021-11-18 12:28 | XMS_ITS | Encounter Summary ---
:1945 Author Organization [facility] Address 330 [facility], [address] [place] [address] Care Team Providers Name Role Phone Laurie Elias NP Primary Care Provider Unavailable Encounter Details Date Type Department Care Team Description 12/06/2018 Hospital Encounter [place] Astudillo am, MD Gastroenterology/Endosco [address] [facility], [address] [facility] eet [place], [place] [address] [place] [address] [phone] Social History Tobacco Use Types Packs/Day [...] INSTRUCTIONS: Please call Dr. Astudillo office at [phone] if you develop the following symptoms in [...] cecum, confirmed by appendiceal orifice, cecal strap (new koliganek's foot), and ileocecal valve. The scope was withdrawn and the mucosa was carefully examined. The quality of the preparation was good. The views were good. The patient's toleration of the procedure was good. Scope(s)/SN:[id number] Time Started: 09:32 Cecum Time: 09:42 Time Ended: 09:47 Estimated Blood Loss: None. Findings: There was evidence of severe diverticulosis in the descending colon. Otherwise, the colon appeared to be normal. Complications: There were no immediate complications. Impression: Severe diverticulosis found in the descending colon. No sign of active diverticulitis Recommendations: Colonoscopy recommended in 10 years. Procedure Codes: 82129 - colonoscopy G0500 - moderate sedation ICD-9 [...] Office Visit Family Medicine Kevin Miranda MD [address] [place] [phone] (Wo rk) documented as of [...] cecum, confirmed by appendiceal orifice, cecal strap (new koliganek's foot), and ileocecal valve. The scope was withdrawn and the mucosa w as carefully examined. The quality of the preparation was good. The views were good. The patient's toleration of the procedure wa s good. Scope(s)/SN:[id number] Time Star lesly: 09:32 Cecum Time: 09:42 Time Ended: :47 Estimated Blood Loss: None. Findings: There was evidence of severe d iverticulosis in the descending colon. Otherwise, the colon a ppeared to be normal. Complications: There were no immediate c omplications. Impression: Severe diverticulosis found in the descending colon. No sign of active diverticulitis Recommendations: Colonoscopy recommended in 10 years. Procedure Codes: 53114 - colonoscopy G05 00 - moderate sedation [...] Pre-op documented in this encounter Care Teams Mechanic General Operational Test Relationship Specialty Start Date End Date Laurie Elias NP PCP - General Family Medicine 03/02/1811/19/19 documented as of this encounter
--- OUTSIDE RECORDS SUMMARY | 2021-11-18 12:28 | XMS_ITS | Encounter Summary ---
:1945 Author Organization [facility] Address [address] [facility], [address] [place] [address] Care Team Providers Name Role Phone Laurie Elias SUPERVISOR LINE DEPARTMENT Primary Care Provider Unavailable Encounter Details Date Type Department Care Team Description 01/24/2019 Scan Document - View Trini Gómez in Chart Practice SUPERVISOR LINE DEPARTMENT [facility] [place] [address] Social History Tobacco Use Types Packs/Day Years [...] Office Visit Family Medicine Kevin Miranda MD [address] [place] [address] (Wo rk) documented as of this encounter Visit Diagnoses Not on filedocumented in this encounter Care Teams Slide Fastener Repairer Relationship Specialty Start Date End Date Laurie Elias NP PCP - General Family Medicine 03/02/1811/19/19 documented as of this encounter
--- OUTSIDE RECORDS SUMMARY | 2021-11-18 12:28 | XMS_ITS | Encounter Summary ---
:1945 Author Organization [facility] Address [address] [facility], [address] [place] [address] Care Team Providers Name Role Phone Laurie Elias NP Primary Care Provider Unavailable Encounter Details Date Type Department Care Team Description 12/06/2018 Surgery [facility] [place] Astudillo MD COLONOSCOPY [[id number] Gastroenterology/Endosc [address] [facility] (CPT[facility] [address] [facility] eet [place], [place] [address] [place] [address] (Wo rk) [address] [phone] Surgery Details Date/Time Status Location OR Service Patient Class Case Case Trauma Class Type Case? 12/06/18 Posted [facility] GI GI [address] [place] [address] 9:30 AM Outpatient Surgery Panel 1 Procedure [...] INSTRUCTIONS: Please call Dr. Astudillo office at [phone] if you develop the following symptoms in [...] cecum, confirmed by appendiceal orifice, cecal strap (paimiut's foot), and ileocecal valve. The scope was withdrawn and the mucosa was carefully examined. The quality of the preparation was good. The views were good. The patient's toleration of the procedure was good. Scope(s)/SN:[id number] Time Started: 09:32 Cecum Time: 09:42 Time Ended: 09:47 Estimated Blood Loss: None. Findings: There was evidence of severe diverticulosis in the descending colon. Otherwise, the colon appeared to be normal. Complications: There were no immediate complications. Impression: Severe diverticulosis found in the descending colon. No sign of active diverticulitis Recommendations: Colonoscopy recommended in 10 years. Procedure Codes: 94261 - colonoscopy G0500 - moderate sedation ICD-9 [...] Visit Family Medicine Kevin Miranda MD [address] [place] [address] (Wo rk) documented as of [...] cecum, confirmed by appendiceal orifice, cecal strap (paimiut's foot), and ileocecal valve. The scope was withdrawn and the mucosa w as carefully examined. The quality of the preparation was good. The views were good. The patient's toleration of the procedure wa s good. Scope(s)/SN:[id number] Time Star lesly: 09:32 Cecum Time: 09:42 Time Ended: 09:47 Estimated Blood Loss: None. Findings: There was evidence of severe d iverticulosis in the descending colon. Otherwise, the colon a ppeared to be normal. Complications: There were no immediate c omplications. Impression: Severe diverticulosis found in the descending colon. No sign of active diverticulitis Recommendations: Colonoscopy recommended in 10 years. Procedure Codes: 52279 - colonoscopy G05 00 - moderate sedation [...] Pre-op documented in this encounter Care Teams Spring Maker Relationship Specialty Start Date End Date Laurie Elias NP PCP - General Family Medicine 03/02/1811/19/19 documented as of this encounter
--- OUTSIDE RECORDS SUMMARY | 2021-11-18 12:28 | XMS_ITS | Encounter Summary ---
:1945 Author Organization [facility] Address 330 [facility], [address] [place] [address] Care Team Providers Name Role Phone Laurie Elias TEXTILE ENGINEER Primary Care Provider Unavailable Encounter Details [...] Office Visit Family Medicine Kevin Miranda MD [address] [place] [phone] (Wo rk) documented as of this encounter Visit Diagnoses Not on filedocumented in this encounter Care Teams Software Team Leader Relationship Specialty Start Date End Date Laurie Elias NP PCP - General Family Medicine 03/02/1811/19/19 documented as of this encounter
--- OUTSIDE RECORDS SUMMARY | 2021-11-18 12:28 | XMS_ITS | Encounter Summary ---
:1945 Author Organization [facility] Address [address] [facility], [address] [place] [address] Care Team Providers Name Role Phone Laurie Elias TRANSACTION ADVISORY SERVICES MANAGER Primary Care Provider Unavailable Encounter Details [...] Visit Family Medicine Kevin Miranda MD [address] [place] [phone] (Wo rk) documented as of this encounter Visit Diagnoses Not on filedocumented in this encounter Care Teams Trackwalker Relationship Specialty Start Date End Date Laurie Elias NP PCP - General Family Medicine 03/02/1811/19/19 documented as of this encounter
--- OUTSIDE RECORDS SUMMARY | 2021-11-18 12:28 | XMS_ITS | Encounter Summary ---
:1945 Author Organization [facility] Address [address] [facility], [address] [place] [address] Care Team Providers Name Role Phone Kevin Miranda MD Primary Care Provider Encounter Details Date Type Department Care Team Description 02/28/2019 Orders Only [facility] actice Provider, MD [place]arsh [address] [place] [address] [phone] Social History Tobacco Use Types Packs/Day Years [...] Visit Family Medicine Kevin Miranda MD [address] [place] [address] (Wo rk) documented as of this encounter Procedures Procedure Name Priority Date/Time Associated Diagnosis Comme nts MAMMOGRAPHY Routine 02/12/2019 documented in this encounter Results MAMMOGRAPHY (02/12/2019) Anatomical Region Laterality Modality Other Narrative This result has an attachment that is no t available. Historical Provider MD HEALTH MAINTENANCE documented in this encounter Visit Diagnoses Not on filedocumented in this encounter Care Teams Room Designer Relationship Specialty Start Date End Date Kevin Miranda MD PCP - General Family Medicine 11/20/19 [address] [place] [address] documented as of this encounter
--- OUTSIDE RECORDS SUMMARY | 2021-11-18 12:28 | XMS_ITS | Encounter Summary ---
:1945 Author Organization [facility] Address [address] [facility], [address] [place] [address] Care Team Providers Name Role Phone JadaHeatherLaurie INTELLIGENCE OFFICER BASIC Primary Care Provider Unavailable Encounter Details Date Type Department Care Team Description 05/15/2018 Rehab [facility] Physical Se lázaro Jason MD [address] [place] [address] Chronic low back pain, Therapy Pricila Curry, PT unspecified back pain [address] [facility], [facility], with [address] [place] [address] unspecified (Primary Dx) [phone] Social History Tobacco Use Types Packs/Day Years Used Date Former Smoker Smokeless Tobacco: Never Used Alcohol Use Standard Drinks/Week Comments Defer 0 (1 standard drink = 0.6 oz pure alcoho l) Sex Assigned at Date Recorded Female 04/12/2019 2:19 PM EST documented as of this encounter Progress Notes Pricila Curry, PT - 05/15/2018 2:00 PM EDT Rehabilitation Services Physical Therapy [address] [facility], [address] [facility] [id number] PROGRESS NOTE visit 8 [facility] Molly Rios is a 73 y.o. female.who has been referred to physical therapy by Dr. Jason with dx of R hip pain(decreased ROM, pelvic pain, groin pain, R SI pain, chronic glut medius tendinopathy). Pt reports she is a very active person at baseline. Noticed R LBP in June after swimming (changedher technique and pain improved). Pt seen by PT at [facility] for R hip pain. Started doing side lying hip abd with 5 lb. Developed more pain (? Overdid her ex). + R sided groin pain. CC is weakness B hips. Referred to PT for consult. Will f/u with MD after completion of PT. Seen by ortho at [facility]-x-rays done, advised to strengthen/stretch R LE. ?? [...] (advised to look into cortisone injection) Subjective Has made appointment with Rafa ([facility]) 05/25/[address] Jason 05/30/18 S/p DPM for R foot pain- told she probably has a neuroma- not candidate for cortisone injection Objective Pain at rest:0/10-3/10 R hip/groin/LB Func: having good bad and days when she attends Yoga class Treatment: ex Long axis distraction R hip, R pelvic rocking in side lying Stretching to R hip adductors in supine Hip adductor in side lying and standing (with band) Arnulfo stretch R, clam shell/reverse clam shell [...] did well with ex. Function remains decreased (with yoga, getting on and off bike). Encouraged to continue with ex as tolerated. Plan: f/u next week, await results of MD visits. Treat as indicated. Pricila Curry, PT 05/15/2018 documented in this encounter Plan of Treatment Upcoming Encounters Date Type Specialty Care Team Description 11/30/2021 Office Visit Family Medicine Kevin Miranda MD [address] [place], [place] [address] (Wo rk) documented as of this encounter Visit Diagnoses Diagnosis Chronic low back pain, unspecified back pain laterality, with sciatica presence unspecified - Primary documented in this encounter Care Teams Fruit Canner Relationship Specialty Start Date End Date Laurie Elias NP PCP - General Family Medicine 03/02/1811/19/19 documented as of this encounter
--- OUTSIDE RECORDS SUMMARY | 2021-11-18 12:28 | XMS_ITS | Encounter Summary ---
:1945 Author Organization [facility] Address [address] [facility], [address] [place] [address] Care Team Providers Name Role Phone Laurie Elias SANITATION MANAGER Primary Care Provider Unavailable Encounter Details Date Type Department Care Team Description 04/10/2018 Scan Document - View Trini Gómez in Chart Practice SANITATION MANAGER [facility] [place] [address] Social History Tobacco Use Types Packs/Day Years [...] Office Visit Family Medicine Kevin Miranda MD [address] [place] [phone] (Wo rk) documented as of this encounter Visit Diagnoses Not on filedocumented in this encounter Care Teams Neighborhood Conservation Officer Relationship Specialty Start Date End Date Laurie Elias NP PCP - General Family Medicine 03/02/1811/19/19 documented as of this encounter
--- OUTSIDE RECORDS SUMMARY | 2021-11-18 12:28 | XMS_ITS | Encounter Summary ---
:1945 Author Organization [facility] Address [address] [facility], [address] [place] [address] Care Team Providers Name Role Phone Laurie Elias NP Primary Care Provider Unavailable Reason for Visit Reason Comments colon abscess Auth/Cert Specialty Diagnoses / Procedures Referred By Contact Refer red To Contact Diagnoses Pericolonic abscess Procedures n/a Referral ID Status Reason Start Date Expiration Date Visits Requ ested Visits Authorized [id number] 1 1 Encounter Details Date Type Department Care Team Description 04/13/2019 - Hospital Encounter [facility] Castro MD [address] [place] [phone] 04/14/2019 8 Nursing Unit Michele Watkins MD [address] [place] [address] [place] [phone] Social History Tobacco Use Types Packs/Day Years [...] medications: Gabriel Molly Schmidt Home Medication Instructions TRACIE:[id number] Printed on:04/14/19 3534 Medication Information b complex vitamins capsule Take [...] Center 06/11/2019 1:45 PM MD JANET Molina [facility] Yoan Owen MD 04/14/19 1:01 PM [...] EST Molly Rios You were admitted to [facility] for acute diverticulitis with an abscess which [...] * FOLLOW-UP: Please call our office at [phone] with any questions. You do not need [...] best as you continue in your recovery. [facility] General Surgery team. documented in this encounter [...] Lopez MD - 04/13/2019 1:19 PM EST Consumer Services Consultant's ED Note Date: 04/13/19 Patient Name: Molly Rios Age: 74 y.o. Sex: female Triage Chief Complaint: colon abscess HPI Molyl Rios is a 74 y.o. female with [...] nl intervals, no STEMI [DW] 1636 residential team leader has evaluated patient. [DW] 1702 Plan to [...] following orders were created for panel order [place] draw. Procedure Abnormality Status --------- ------ Gold Top[[id number]] In process Gold Top[[id number]] In process Light Blue Top[[id number]] In process Lavender Top[[id number]] Red Top[[id number]] In process Please view results for these [...] nl intervals, no STEMI [DW] 1636 residential team leader has evaluated patient. [DW] 1702 Plan to [...] medically cleared [place] [facility] [place] [place] DC paperwork gone [...] nausea and anorexia. Today she came to [facility] ER with a temp of 100.5F and [...] Visit Family Medicine Kevin Miranda MD [address] [place] [phone] (Wo rk) documented as of [...] (04/14/2019 6:03 AM EST) Analysis Performed At [facility] logist Time Signature C REACTIVE 28.5 (H) <10.0 mg/L 04/14/2019 [place] PROTEIN 9:10 AM [facility] Comment: This test should not [...] Organization Address City/State/ZIP Code Phon e Number [facility] [address] [place] [address] LABORATORY (ABNORMAL) CBC with Auto Differential (04/14/2019 6:03 AM EST) [facility] gist Method Time Signature WBC 3.43 (L) 4.00 to 04/14/2019 [place] 11.00 x 8:04 AM [facility] 10*3u/L LABORATORY 10*3/uL nRBC 0 0 - 0 04/14/2019 [place] /100 WBCs 8:04 AM [facility] RBC 3.95 3.90 to 04/14/2019 [place] 5.20 x 8:04 AM [facility] 10*6/uL LABORATORY 10*6/uL HGB 12.6 12.0 to 04/14/2019 [place] 16.0 g/dL 8:04 AM [facility] g/dL LABORATORY HCT 36.1 36.0% to 04/14/2019 [place] 46.0% % 8:04 AM [facility] MCV 91.4 80.0 to 04/14/2019 [place] 100.0 fL 8:04 AM [facility] fL LABORATORY MCH 31.9 26.0 - 04/14/2019 [place] 33.0 pg 8:04 AM [facility] MCHC 34.9 31.0 to 04/14/2019 [place] 37.0 g/dL 8:04 AM [facility] g/dL LABORATORY PLT 277 150 to 04/14/2019 [place] 350 x 8:04 AM [facility] 10*3u/l LABORATORY 10*3u/L RDW-CV 12.8 11.5 - 04/14/2019 [place] 14.5 % 8:04 AM [facility] Segmented % 55.6 30.0 - 04/14/2019 [place] 85.0 % 8:04 AM [facility] ABS Neutrophil 1.91 1.20 - 04/14/2019 [place] 9.30 8:04 AM [facility] 10*3/uL LABORATORY Lymphocytes % 26.5 15.0 - 04/14/2019 [place] 50.0 % 8:04 AM [facility] ABS Lymphocyte 0.91 0.60 - 04/14/2019 [place] 5.50 8:04 AM [facility] 10*3u/L LABORATORY Monocytes % 14.0 (H) 2.0 - 04/14/2019 [place] 12.0 % 8:04 AM [facility] Abs Monocyte 0.48 0.08 to 04/14/2019 [place] 1.30 x 8:04 AM [facility] 10*3u/L LABORATORY 10*3u/L Eosinophils % 0.9 0.0 - 5.0 04/14/2019 [place] % 8:04 AM [facility] ABS Eosinophils 0.03 0.00 to 04/14/2019 [place] 0.68 x 8:04 AM [facility] 10*3u/L LABORATORY 10*3u/L Basophil % 1.5 0.0 - 2.0 04/14/2019 [place] % 8:04 AM [facility] ABS Basophils 0.05 0.00 - 04/14/2019 [place] 0.20 8:04 AM [facility] 10*3/uL LABORATORY IMM GRAN 1.5 (H) 0.0 - 1.0 04/14/2019 [place] % 8:04 AM [facility] ABS IMM GRAN 0.05 0.00 - 04/14/2019 [place] 0.10 8:04 AM [facility] 10*3/uL LABORATORY Specimen Anatomical Collection Method Collection Time Receive d Time (Source) Location / / Volume Laterality Blood Venous blood / 04/14/2019 6:03 AM 020 7:12 Unknown EST AM EST Narrative [facility] LABORATORY - 8:04 AM EST Immature granulocyte [...] Organization Address City/State/ZIP Code Phon e Number [facility] [address] [address] LABORATORY (ABNORMAL) Basic metabolic panel (04/14/2019 6:03 AM [facility]) P athologist Signature Sodium 140 137 - 145 04/14/2019 [place] mmol/L 9:06 AM [facility] Potassium 4.0 3.5 - 5.1 04/14/2019 [place] mmol/L 9:06 AM [facility] CHLORIDE 105 98 - 107 04/14/2019 [place] mmol/L 9:06 AM [facility] CARBON DIOXIDE, 26.0 22.0 - 04/14/2019 [place] TOTAL 30.0 9:06 AM [facility] mmol/L LABORATORY ANION GAP 9.0 6 - 14 04/14/2019 [place] 9:06 AM [facility] GLUCOSE 91 70 - 99 04/14/2019 [place] mg/dL 9:06 AM [facility] BUN 6 (L) 7 - 17 04/14/2019 [place] mg/dL 9:06 AM [facility] CREATININE 0.6 0.5 - 1.0 04/14/2019 [place] mg/dL 9:06 AM [facility] GFR >60 04/14/2019 [place] 9:06 AM [facility] Comment: eGFR Reference Range: ? > 60 mL/min/1.73 Sq meter In Americans the eGFR should be multiplied by 1.212. CALCIUM 8.9 8.3 - 10.3 mg/dL 04/14/2019 9:06 AM [facility] Specimen Anatomical Collection Method Collection Time Receive d Time (Source) Location / / Volume Laterality Blood Venous blood / 04/14/2019 6:03 AM 020 7:07 Unknown EST AM EST Michele Watkins MD LAB BLOOD ORDERABLES Performing Organization Address City/State/ZIP Code Phon e Number [place] [address] LABORATORY Blood culture (04/13/2019 3:53 PM EST) Patholo gist Method Time Signature Blood Culture No growth 5 04/18/2019 [place] 4:02 PM [facility] Specimen Anatomical Collection Method / Collection Time Recei nancy Time (Source) Location / Volume Laterality Blood Venous blood / Venipuncture / 04/13/2019 3:53 04/13/19 20 3:58 Unknown Unknown PM EST PM EST Mitra Rocha MD LAB MICROBIOLOGY - GENERAL O RDERABLES Performing Organization Address City/State/ZIP Code Phon e Number [address] [address] LABORATORY Magnesium (04/13/2019 3:44 PM EST) P athologist Signature Magnesium 2.0 1.6 - 2.3 04/13/2019 [place] Blood mg/dL 7:49 PM [facility] Specimen Anatomical Collection Method / Collection Time Recei nancy Time (Source) Location / Volume Laterality Blood Venous blood / Venipuncture / 04/13/2019 3:44 04/13/19 20 3:58 Unknown Unknown PM EST PM EST Michele Watkins MD LAB BLOOD ORDERABLES Performing Organization Address City/State/ZIP Code Phon e Number [address] [address] LABORATORY Phosphorus (04/13/2019 3:44 PM EST) P athologist Signature PHOSPHATE 4.0 2.5 - 4.5 04/13/2019 [place] mg/dL 7:49 PM EST HOSPITAL LABORATORY Specimen Anatomical Collection Method / Collection Time Recei nancy Time (Source) Location / Volume Laterality Blood Venous blood / Venipuncture / 04/13/2019 3:44 04/13/19 20 3:58 Unknown Unknown PM EST PM EST Michele Watkins MD LAB BLOOD ORDERABLES Performing Organization Address [facility]/ZIP Code Phon e Number [address] [address] LABORATORY (ABNORMAL) C-reactive protein (04/13/2019 3:44 PM EST) Analysis Performed At Patho logist Time Signature C REACTIVE 34.1 (H) <10.0 mg/L 04/13/2019 [place] PROTEIN 5:56 PM EST HOSPITAL LABORATORY Comment: [...] Organization Address City/State/ZIP Code Phon e Number [address] [address] LABORATORY Red Top (04/13/2019 3:44 PM EST) Specimen Anatomical Collection Method / Collection Time Recei nancy Time (Source) Location / Volume Laterality Blood Venous blood / Venipuncture / 04/13/2019 3:44 04/13/19 20 3:59 Unknown Unknown PM EST PM EST Mitra Rocha MD LAB BLOOD ORDERABLES Performing Organization Address City/State/ZIP Code Phon e Number [address] [address] LABORATORY Light Blue Top (04/13/2019 3:44 PM EST) Specimen Anatomical Collection Method / Collection Time Recei nancy Time (Source) Location / Volume Laterality Blood Venous blood / Venipuncture / 04/13/2019 3:44 04/13/19 20 3:59 Unknown Unknown PM EST PM EST Mitra Rocha MD LAB BLOOD ORDERABLES Performing Organization Address City/[facility]/ZIP Code Phon e Number [address] [address] LABORATORY Gold Top (04/13/2019 3:44 PM EST) Specimen Anatomical Collection Method / Collection Time Recei nancy Time (Source) Location / Volume Laterality Blood Venous blood / Venipuncture / 04/13/2019 3:44 04/13/19 20 3:58 Unknown Unknown PM EST PM EST Mitra Rocha MD LAB BLOOD ORDERABLES Performing Organization Address City/[facility]/ZIP Code Phon e Number [address] [address] LABORATORY Gold Top (04/13/2019 3:44 PM EST) Specimen Anatomical Collection Method / Collection Time Recei nancy Time (Source) Location / Volume Laterality Blood Venous blood / Venipuncture / 04/13/2019 3:44 04/13/19 20 3:58 Unknown Unknown PM EST PM EST Mitra Rocha MD LAB BLOOD ORDERABLES Performing Organization Address City/State/ZIP Code Phon e Number [address] [address] LABORATORY Blood culture (04/13/2019 3:44 PM EST) [facility] gist Method Time Signature Blood Culture No [...] Organization Address City/State/ZIP Code Phon e Number [address] [address] LABORATORY Lipase (04/13/2019 3:44 PM EST) athologist Signature LIPASE 65 23 - 300 04/13/2019 [place] U/L 4:14 PM [facility]AT[facility] Specimen Anatomical Collection Method / Collection Time Recei nancy Time (Source) Location / Volume Laterality Blood Venous blood / Venipuncture / 04/13/2019 3:44 04/13/19 20 3:58 Unknown Unknown PM EST PM EST Mitra Rocha MD LAB BLOOD ORDERABLES Performing Organization Address City/State/ZIP Code Phon e Number [place] [address] LABORATORY Hepatic function panel (04/13/2019 3:44 PM EST) athologist Signature PROTEIN TOTAL 6.8 6.3 - 8.2 04/13/2019 [facility] g/dL 4:14 PM [facility]ORY ALBUMIN 3.7 3.5 - 5.0 04/13/2019 [facility] g/dL 4:14 PM [facility] Bilirubin Total 0.4 0.2 - 1.3 04/13/2019 [facility] mg/dL 4:14 PM [facility] BILIRUBIN DIRECT 0.2 0.0 - 0.4 04/13/2019 [facility] mg/dL 4:14 PM [facility] AST (SGOT) 32 15 - 46 04/13/2019 [facility] U/L 4:14 PM [facility] ALT 41 13 - 69 04/13/2019 [facility] U/L 4:14 PM [facility] ALKALINE 97 38 - 126 04/13/2019 [facility] PHOSPHATASE U/L 4:14 PM [facility] Specimen Anatomical Collection Method / Collection Time Recei nancy Time (Source) Location / Volume Laterality Blood Venous blood / Venipuncture / 04/13/2019 3:44 04/13/19 20 3:58 Unknown Unknown PM EST PM EST Mitra Rocha MD LAB BLOOD ORDERABLES Performing Organization Address City/State/ZIP Code Phon e Number [address] [address] LABORATORY (ABNORMAL) Basic metabolic panel w/GFR (04/13/2019 3:44 PM EST) Analysis Performed At Patho logist Time Signature Sodium 134 (L) 137 - 145 04/13/2019 [place] mmol/L 4:14 PM [facility] Potassium 4.3 3.5 - 5.1 04/13/2019 [place] mmol/L 4:14 PM [facility] LAB[facility] CHLORIDE 100 98 - 107 04/13/2019 [place] mmol/L 4:14 PM [facility] LAB[facility] CARBON DIOXIDE, 24.0 22.0 - 04/13/2019 [place] TOTAL 30.0 4:14 PM [facility] mmol/L LABORATORY ANION GAP 10.0 6 - 14 04/13/2019 [place] 4:14 PM [facility] GLUCOSE 117 (H) 70 - 99 04/13/2019 [place] mg/dL 4:14 PM [facility] BUN 10 7 - 17 04/13/2019 [place] mg/dL 4:14 PM [facility] CREATININE 0.5 0.5 - 1.0 04/13/2019 [place] mg/dL 4:14 PM [facility] GFR >60 04/13/2019 [place] 4:14 PM [facility] Comment: eGFR Reference Range: ? > 60 mL/min/1.73 Sq meter In Americans the eGFR should be multiplied by 1.212. CALCIUM 9.5 8.3 - 10.3 mg/dL 04/13/2019 4:14 PM [facility] Specimen Anatomical Collection Method / Collection Time Recei nancy Time (Source) Location / Volume Laterality Blood Venous blood / Venipuncture / 04/13/2019 3:44 04/13/19 20 3:58 Unknown Unknown PM EST PM EST Mitra Rocha MD LAB BLOOD ORDERABLES Performing Organization Address City/State/ZIP Code Phon e Number [facility] [address] [place], [place] [address] LABORATORY (ABNORMAL) CBC auto differential (04/13/2019 3:43 PM EST) Patholo gist Method Time Signature WBC 5.55 4.00 to 04/13/2019 [place] 11.00 x 4:10 PM [facility] 10*3u/L LABORATORY 10*3/uL nRBC 0 0 - 0 04/13/2019 [place] /100 WBCs 4:10 PM [facility] RBC 4.37 3.90 to 04/13/2019 [place] 5.20 x 4:10 PM [facility] 10*6/uL LABORATORY 10*6/uL HGB 13.9 12.0 to 04/13/2019 [place] 16.0 g/dL 4:10 PM [facility] g/dL LABORATORY HCT 39.5 36.0% to 04/13/2019 [place] 46.0% % 4:10 PM [facility] MCV 90.4 80.0 to 04/13/2019 [place] 100.0 fL 4:10 PM [facility] fL LABORATORY MCH 31.8 26.0 - 04/13/2019 [place] 33.0 pg 4:10 PM [facility] MCHC 35.2 31.0 to 04/13/2019 [place] 37.0 g/dL 4:10 PM [facility] g/dL LABORATORY PLT 283 150 to 04/13/2019 [place] 350 x 4:10 PM [facility] 10*3u/l LABORATORY 10*3u/L RDW-CV 12.8 11.5 - 04/13/2019 [place] 14.5 % 4:10 PM [facility] Segmented % 77.6 30.0 - 04/13/2019 [place] 85.0 % 4:10 PM [facility] ABS Neutrophil 4.31 1.20 - 04/13/2019 [place] 9.30 4:10 PM [facility] 10*3/uL LABORATORY Lymphocytes % 8.5 (L) 15.0 - 04/13/2019 [place] 50.0 % 4:10 PM [facility] ABS Lymphocyte 0.47 (L) 0.60 - 04/13/2019 [place] 5.50 4:10 PM [facility] 10*3u/L LABORATORY Monocytes % 12.6 (H) 2.0 - 04/13/2019 [place] 12.0 % 4:10 PM [facility] Abs Monocyte 0.70 0.08 to 04/13/2019 [place] 1.30 x 4:10 PM [facility] 10*3u/L LABORATORY 10*3u/L Eosinophils % 0.0 0.0 - 5.0 04/13/2019 [place] % 4:10 PM [facility] ABS Eosinophils 0.00 0.00 to 04/13/2019 [place] 0.68 x 4:10 PM [facility] 10*3u/L LABORATORY 10*3u/L Basophil % 0.9 0.0 - 2.0 04/13/2019 [place] % 4:10 PM [facility] ABS Basophils 0.05 0.00 - 04/13/2019 [place] 0.20 4:10 PM [facility] 10*3/uL LABORATORY IMM GRAN 0.4 0.0 - 1.0 04/13/2019 [place] % 4:10 PM [facility] ABS IMM GRAN 0.02 0.00 - 04/13/2019 [place] 0.10 4:10 PM [facility] 10*3/uL LABORATORY Specimen Anatomical Collection Method / Collection Time Recei nancy Time (Source) Location / Volume Laterality Blood Venous blood / Venipuncture / 04/13/2019 3:43 04/13/19 20 3:58 Unknown Unknown PM EST PM EST Mitra Rocha MD LAB BLOOD ORDERABLES Performing Organization Address City/State/ZIP Code Phon e Number [facility] [address] [place] [address] LABORATORY EKG (04/13/2019 3:42 PM EST) Specimen (Source) Anatomical Collection Method Collection Time Re ceived Time Location / / Volume Laterality 04/13/2019 3:42 PM EST Mitra Rocha MD ECG ORDERABLES Performing Organization Address City/State/ZIP Code Phon e Number [facility] [address] [facility] [place] [address] documented in this encounter Visit Diagnoses Diagnosis [...] Provider - Reason: Unreviewed Transfer Orders)2011 ([facility] Unhold - Provider: Micheal Britt [...] Provider - Reason: Unreviewed Transfer Orders)2011 ([facility] Unhold - Provider: Micheal Britt [...] 1702 documented in this encounter Care Teams Exhibit Builder Relationship Specialty Start Date End Date Laurie Elias NP PCP - General Family Medicine 03/02/1811/19/19 documented as of this encounter
--- OUTSIDE RECORDS SUMMARY | 2021-11-18 12:28 | XMS_ITS | Encounter Summary ---
:1945 Author Organization [facility] Address [address] [facility], [address] [place] [address] Care Team Providers Name Role Phone Laurie Elias SERVOMECHANISM DESIGNER Primary Care Provider Unavailable Encounter Details Date Type Department Care Team Description 02/06/2019 Scan Document - View KeelingPaula Al, in Chart Practice [address] [place] [address] [id number] Social History Tobacco Use Types Packs/Day Years [...] Visit Family Medicine Kevin Miranda MD [address] [place] [address] (Wo rk) documented as of this encounter Visit Diagnoses Not on filedocumented in this encounter Care Teams Funeral Workers Relationship Specialty Start Date End Date Laurie Elias NP PCP - General Family Medicine 03/02/1811/19/19 documented as of this encounter
--- OUTSIDE RECORDS SUMMARY | 2021-11-18 12:28 | XMS_ITS | Encounter Summary ---
:1945 Author Organization [facility] Address [address] [facility], [address] [place] [address] Care Team Providers Name Role Phone Laurie Elias LEAF SORTER Primary Care Provider Unavailable Encounter Details [...] Visit Family Medicine Kevin Miranda MD [address] [place] [address] (Wo rk) documented as of this encounter Visit Diagnoses Not on filedocumented in this encounter Care Teams Research And Development Researcher Relationship Specialty Start Date End Date Laurie Elias NP PCP - General Family Medicine 03/02/1811/19/19 documented as of this encounter
--- OUTSIDE RECORDS SUMMARY | 2021-11-18 12:28 | XMS_ITS | Encounter Summary ---
:1945 Author Organization [facility] Address [address] [facility], [address] [place] [address] Care Team Providers Name Role Phone JadaHeatherLaurie BATON TEACHER Primary Care Provider Unavailable Encounter Details Date Type Department Care Team Description 04/26/2018 Rehab [facility] Physical Se lázaro Jason MD [address] [place] [address] Chronic low back pain, Therapy Pricila Curry, PT unspecified back pain [address] [facility], [address] [place] [address] unspecified (Primary Dx) [phone] Social History Tobacco Use Types Packs/Day Years Used Date Former Smoker Smokeless Tobacco: Never Used Alcohol Use Standard Drinks/Week Comments Defer 0 (1 standard drink = 0.6 oz pure alcoho l) Sex Assigned at Date Recorded Female 04/12/2019 2:19 PM EST documented as of this encounter Progress Notes Pricila Curry, PT - 04/26/2018 2:30 PM EDT Rehabilitation Services Physical Therapy [address] [facility], [address] [facility] [id number] PROGRESS NOTE visit 6 [facility] Molly Rios is a [...] improved). Pt seen by [place] [facility] [place]. Started doing side lying hip abd with 5 lb. Developed more pain (? Overdid her ex). + R sided groin pain. CC is weakness B hips. Referred to PT for consult. Will f/u with MD after completion of PT. Seen by ortho [place] [facility], advised to strengthen/stretch R LE. ?? [...] Visit Family Medicine Kevin Miranda MD [address] [place], [place] [address] (Wo rk) documented as of this encounter Visit Diagnoses Diagnosis Chronic low back pain, unspecified back pain laterality, with sciatica presence unspecified - Primary documented in this encounter Care Teams Ceramics Technician Relationship Specialty Start Date End Date Laurie Elias NP PCP - General Family Medicine 03/02/1811/19/19 documented as of this encounter
--- OUTSIDE RECORDS SUMMARY | 2021-11-18 12:28 | XMS_ITS | Encounter Summary ---
:1945 Author Organization [facility] Address [address] [facility], [address] [place] [address] Care Team Providers Name Role Phone Laurie Elias NP Primary Care Provider Unavailable Reason for Referral Specialty (Routine) - Closed Specialty Diagnoses / Procedures Referred By Contact Refer red To Contact Otolaryngology Diagnoses Tinnitus of right ear Kevin Miranda MD [address] [place] [address] Referral ID Status Reason Start Date Expiration Date Visits V isits Requested Authorized [id number] Closed Specialty 01/22/2019 01/22/2020 1 1 Services Required iagnostic Imaging (Routine) - Closed Specialty Diagnoses / Procedures Referred By Contact Refer red To Contact Diagnoses Dense breasts Kevin Miranda MD Procedures Ultrasound Breast Screening Automated Breast Volume Scanner (ABVS) Bilateral *screening ultrasounds only* [address] [place] [address] Referral ID Status Reason Start Date Expiration Date Visits Requ ested Visits Authorized [id number] Closed 01/22/2019 01/22/2020 1 1 iagnostic Imaging (Routine) - Closed Specialty Diagnoses / Procedures Referred By Contact Refer red To Contact Radiology Diagnoses Dense breasts Kevin Miranda MD Procedures MAMMOGRAPHY SCREENING MAMMOGRAM [address] [place] [address] Referral ID Status Reason Start Date Expiration Date Visits Requ ested Visits Authorized [id number] Closed 01/22/2019 01/22/2020 1 1 Reason for Visit Reason Comments Cerumen Impaction Encounter Details Date Type Department Care Team Description 01/22/2019 Office Visit Kevin Trimble Diverti culdavina (Primary Dx); Practice MD Tinnitus of right ear; [address] Hiatal hernia with GERD; [place] [address] [place], [place] Dense breasts [phone] Social History Tobacco Use Types Packs/Day Years [...] my presence by the student and/or medical claims manager and verified by me. This note is [...] Office Visit Family Medicine Kevin Miranda MD [facility] [place], [place] [address] (Wo rk) Scheduled Orders [...] mammogram documented in this encounter Care Teams Petroleum Transport Driver Relationship Specialty Start Date End Date Laurie Elias NP PCP - General Family Medicine 03/02/1811/19/19 documented as of this encounter
--- OUTSIDE RECORDS SUMMARY | 2021-11-18 12:28 | XMS_ITS | Encounter Summary ---
:1945 Author Organization [facility] Address 330 [facility], [address] [place] [address] Care Team Providers Name Role Phone Jada Laurie ANN Primary Care Provider Unavailable Encounter Details Date Type Department Care Team Description 04/13/2019 Telephone [facility] zurita MD Consultants 330 [facility], 300 [facility] t, [facility] [address] [address] [phone] (Wo rk) Social History Tobacco Use Types [...] Visit Family Medicine Kevin Miranda MD 1020 [facility] [place] [address] (Wo rk) documented as of this encounter Visit Diagnoses Not on filedocumented in this encounter Care Teams Editing Clerk Relationship Specialty Start Date End Date Laurie Elias NP PCP - General Family Medicine 03/02/1811/19/19 documented as of this encounter
--- OUTSIDE RECORDS SUMMARY | 2021-11-18 12:28 | XMS_ITS | Encounter Summary ---
:1945 Author Organization [facility] Address 330 [facility], [address] [place] [address] Care Team Providers Name Role Phone Kevin Miranda MD Primary Care Provider Encounter Details Date Type Department Care Team Description 12/06/2018 Procedure [facility] [address] [place] [address] [phone] Social History Tobacco Use Types [...] Visit Family Medicine Kevin Miranda MD [address] [place] [address] (Wo rk) documented as of this encounter Visit Diagnoses Not on filedocumented in this encounter Care Teams Professor Of Art Relationship Specialty Start Date End Date Kevin Miranda MD PCP - General Family Medicine 11/20/[address] [place] [address] documented as of this encounter
--- OUTSIDE RECORDS SUMMARY | 2021-11-18 12:28 | XMS_ITS | Encounter Summary ---
:1945 Author Organization [facility] Address 330 [facility], [address] [place] [address] Care Team Providers Name Role Phone Laurie Elias CUSTOMER EXPERIENCE SPECIALIST Primary Care Provider Unavailable Encounter Details [...] Visit Family Medicine Kevin Miranda MD [address] [place] [address] (Wo rk) documented as of this encounter Visit Diagnoses Not on filedocumented in this encounter Care Teams Consultant Nurse Relationship Specialty Start Date End Date Laurie Elias NP PCP - General Family Medicine 03/02/1811/19/19 documented as of this encounter
--- OUTSIDE RECORDS SUMMARY | 2021-11-18 12:28 | XMS_ITS | Encounter Summary ---
:1945 Author Organization [facility] Address 330 [facility], [address] [place] [address] Care Team Providers Name Role Phone JadaHeatherLaurie AUTOMOTIVE DESIGN LAYOUT DRAFTER Primary Care Provider Unavailable Encounter Details Date Type Department Care Team Description 05/02/2018 Rehab [facility] Physical Se lázaro Jason MD 799 [place] [address] Chronic low back pain, Therapy Pricila Curry, PT unspecified back pain 725 [facility], [facility], with [address] [place] [address] unspecified (Primary Dx) [phone] Social History Tobacco Use Types Packs/Day Years Used Date Former Smoker Smokeless Tobacco: Never Used Alcohol Use Standard Drinks/Week Comments Defer 0 (1 standard drink = 0.6 oz pure alcoho l) Sex Assigned at Date Recorded Female 04/12/2019 2:19 PM EST documented as of this encounter Progress Notes Pricila Curry, PT - 05/02/2018 12:00 PM EDT Rehabilitation Services Physical Therapy 725 [facility], [address] [facility] [address] PROGRESS NOTE visit 7 [facility] Molly Rios is a 73 y.o. female.who has been referred to physical therapy by Dr. Jason with dx of R hip pain(decreased ROM, pelvic pain, groin pain, R SI pain, chronic glut medius tendinopathy). Pt reports she is a very active person at baseline. Noticed R LBP in June after swimming (changedher technique and pain improved). Pt seen by PT at [facility] for R hip pain. Started doing side lying hip abd with 5 lb. Developed more pain (? Overdid her ex). + R sided groin pain. CC is weakness B hips. Referred to PT for consult. Will f/u with MD after completion of PT. Seen by ortho at [facility]-x-rays done, advised to strengthen/stretch R LE. ?? [...] Visit Family Medicine Kevin Miranda MD 1020 [place], [place] [address] (Wo rk) documented as of this encounter Visit Diagnoses Diagnosis Chronic low back pain, unspecified back pain laterality, with sciatica presence unspecified - Primary documented in this encounter Care Teams Analyst Relationship Specialty Start Date End Date Laurie Elias NP PCP - General Family Medicine 03/02/1811/19/19 documented as of this encounter
--- OUTSIDE RECORDS SUMMARY | 2021-11-18 12:28 | XMS_ITS | Encounter Summary ---
:1945 Author Organization [facility] Address 330 [facility], [address] [place] [address] Care Team Providers Name Role Phone Laurie Elias CLINICAL ACADEMIC ALLERGIST Primary Care Provider Unavailable Encounter Details Date Type Department Care Team Description 03/08/2019 Orders Only [facility] actLaurie Carr NP [facility]0 [place] [address] Social History Tobacco Use Types Packs/Day Years [...] Family Medicine Kevin Miranda MD [address] [place], [place] [address] (Wo rk) documented as of this encounter Visit Diagnoses Not on filedocumented in this encounter Care Teams Process Supervisor Relationship Specialty Start Date End Date Laurie Elias NP PCP - General Family Medicine 03/02/1811/19/19 documented as of this encounter
--- OUTSIDE RECORDS SUMMARY | 2021-11-18 12:28 | XMS_ITS | Encounter Summary ---
:1945 Author Organization [facility] Address 330 [facility], [address] [place] [address] Care Team Providers Name Role Phone Laurie Elias NP Primary Care Provider Unavailable Reason for Visit Specialty (Routine) - Closed Specialty Diagnoses / Referred By Contact Referred To Contact Procedures Physical Medicine and Diagnoses Low back pain MRI FOLLOW-UP Lisa Sotelo MD Mostoufi, Seyed A, Rehabilitation Procedures FOLLOW UP [address] [place], [place] [address] [address] [place] [address] Fax: Referral ID Status Reason Start Date Expiration Date Visits Requ ested Visits Authorized [id number] Closed 06/13/2017 06/13/2018 8 8 Encounter Details Date Type Department Care Team Description 05/29/2018 Office Visit [facility], Lumbar fa cet arthropathy (Primary Dx); [facility] It band syndrome, left; [address] Lateral knee pain, left; [place] [address] [place], [place] Groin pain, chronic, left; [phone] [address] Tendinopathy of left gluteus medius Social History [...] from the original note were not included. [facility].geolad Dear Laurie Elias NP, I had a pleasure of reevaluating Ms. Molly Rios today at [facility], Spine and Regenerative Medicine. Thank you for your referral and please call me if you have any questions regarding this encounter. Cezar Jason MD REASON FOR PM&R CONSULT Follow-up INTERVAL HISTORY : Molly Rios (1945) presenting today 06/04/18 for a follow-up. Since I saw her[facility] and diagnosed by him [...] presentationnot require intervention. EDUCATION AND COUNSELING : to be In addition to in person counseling, patient [...] negative at a time of visit. RESULT REVIEWED([id number]) Available PACS as well as results reviewed [...] Visit Family Medicine Kevin Miranda MD [address] [place] [address] (Wo rk) documented as of this encounter Visit Diagnoses Diagnosis Lumbar facet arthropathy - Primary Spondylosis of unspecified site without mention of myelopathy It band syndrome, left Lateral knee pain, left Groin pain, chronic, left Tendinopathy of left gluteus medius documented in this encounter Care Teams Welfare Worker Relationship Specialty Start Date End Date Laurie Elias NP PCP - General Family Medicine 03/02/1811/19/19 documented as of this encounter
--- OUTSIDE RECORDS SUMMARY | 2021-11-18 12:28 | XMS_ITS | Encounter Summary ---
:1945 Author Organization [facility] Address 330 [facility], [address] [place] [address] Care Team Providers Name Role Phone Laurie Elias NP Primary Care Provider Unavailable Reason for Visit Reason Comments Groin Pain Encounter Details Date Type Department Care Team Description 11/30/2018 Office Visit Paula Funk, Primary osteoarthritis of right hip (Primary Dx); Practice MD Acute left ankle pain 1020 [place] [address] Social History Tobacco Use Types Packs/Day Years [...] Kevin Miranda MD [facility] [place], [place] [address] (Wo rk) documented as of this encounter Visit Diagnoses Diagnosis Primary osteoarthritis of right hip - Pr imary Acute left ankle pain documented in this encounter Care Teams Hr Payroll Coordinator Relationship Specialty Start Date End Date Laurie Elias NP PCP - General Family Medicine 03/02/1811/19/19 documented as of this encounter
--- OUTSIDE RECORDS SUMMARY | 2021-11-18 12:28 | XMS_ITS | Encounter Summary ---
:1945 Author Organization [facility] Address 330 [facility], [address] [place] [address] Care Team Providers Name Role Phone Laurie Elias CORRIDOR REDEVELOPMENT MANAGER Primary Care Provider Unavailable Encounter Details [...] Office Visit Family Medicine Kevin Miranda MD [address] [place] [address] (Wo rk) documented as of this encounter Visit Diagnoses Not on filedocumented in this encounter Care Teams Financial Services Intern Relationship Specialty Start Date End Date Laurie Elias NP PCP - General Family Medicine 03/02/1811/19/19 documented as of this encounter
--- OUTSIDE RECORDS SUMMARY | 2021-11-18 12:28 | XMS_ITS | Encounter Summary ---
:1945 Author Organization [facility] Address 330 [facility], [address] [place] [address] Care Team Providers Name Role Phone JadaHeather zhaoecca WHEEL SETTER Primary Care Provider Unavailable Encounter Details Date Type Department Care Team Description 07/05/2018 Rehab [facility] Physical Se lázaro Jason MD 799 [place] [address] Chronic low back pain, Therapy Pricila Curry, PT unspecified back pain 725 [facility], [facility], with [address] [place] [address] unspecified (Primary Dx) [phone] Social History Tobacco Use Types Packs/Day Years [...] Therapy 725 [facility], [address] [facility] [address] PROGRESS NOTE visit 12 [facility] Molly Rios is a 73 y.o. [...] PT for consult. Se[facility] [...] Visit Family Medicine Kevin Miranda MD 1020 [place], [place] [address] (Wo rk) documented as of this encounter Visit Diagnoses Diagnosis Chronic low back pain, unspecified back pain laterality, with sciatica presence unspecified - Primary documented in this encounter Care Teams Supervisor [employer] Relationship Specialty Start Date End Date Laurie Elias NP PCP - General Family Medicine 03/02/1811/19/19 documented as of this encounter
--- OUTSIDE RECORDS SUMMARY | 2021-11-18 12:28 | XMS_ITS | Encounter Summary ---
:1945 Author Organization [facility] Address 330 [facility], [address] [place] [address] Care Team Providers Name Role Phone Laurie Elias NP Primary Care Provider Unavailable Encounter Details Date Type Department Care Team Description 11/23/2018 Office Visit [facility]ong Sherif, Diverticulosis Gastrointestinal MD [place] (Primary Dx) Consultants [address] [place], [place] [address] [place] [address] Social History Tobacco Use Types Packs/Day Years [...] were not included. 11/25/18 Dallas Gorman M.D. commercial airplane pilot, [facility] Chief, Gastroenterology [facility] [address] [place] [address] FAX [phone] Email: [email or web address] 11/25/18 Re: [id number] Molly Rios Referring physician: Laurie Elias NP 2920 [facility] [address] Molly Rios is a 73 y.o. female [...] Visit Family Medicine Kevin Miranda MD [address] [place] [address] (Wo rk) documented as of this encounter Visit Diagnoses Diagnosis Diverticulosis - Primary Diverticulosis of colon (without mention of hemorrhage) documented in this encounter Care Teams Food Trades Assistants Relationship Specialty Start Date End Date Laurie Elias NP PCP - General Family Medicine 03/02/1811/19/19 documented as of this encounter
--- OUTSIDE RECORDS SUMMARY | 2021-11-18 12:28 | XMS_ITS | Encounter Summary ---
:1945 Author Organization [facility] Address 330 [facility], [address] [place] [address] Care Team Providers Name Role Phone Laurie Elias NP Primary Care Provider Unavailable Reason for Referral Diagnostic Imaging (Routine) - Closed Specialty Diagnoses / Procedures Referred By Contact Refer red To Contact Radiology Diagnoses Diverticulitis Kevin Miranda MD Procedures CT Abdomen Pelvis with Contrast 1020 [place] [address] Referral ID Status Reason Start Date Expiration Date Visits Requ ested Visits Authorized [id number] Closed 04/12/2019 04/11/2020 1 1 Reason for Visit Auth/Cert Specialty Diagnoses / Procedures Referred By Contact Refer red To Contact Diagnoses Pericolonic abscess Procedures n/a Referral ID Status Reason Start Date Expiration Date Visits Requ ested Visits Authorized [id number] 1 1 Encounter Details Date Type Department Care Team Description 04/12/2019 Hospital Encounter [facility] CT Kevin Ken MD Scan [address] [place] [address] [place] [address] [phone] Social History Tobacco Use Types Packs/Day Years [...] Visit Family Medicine Kevin Miranda MD 10[address] [place], [place] [address] (Wo rk) documented as [...] 04/12/2019. Dictated: 04/12/2019 8:31 PM Report ID: [id number] Report signed in external system at 04/12 20:31 Reported By: Reggie Padilla Jr., M.D. ( [facility]) Signed By: Reggie Padilla Jr., M.D. ([facility]) Narrative 04/12/2019 8:31 PM EST RESPONSIBLE SPARKER AND PATCHER: Reggie Padilla Jr., M.D. EXAMINATION: CT ABDOMEN [...] might be different from the original. RESPONSIBLE SPARKER AND PATCHER: Reggie Padilla Jr., M.D. EXAMINATION: CT ABDOMEN [...] 04/12/2019. Dictated: 04/12/2019 8:31 PM Report ID: [id number] Report signed in external system at 04/12 [...] dose documented in this encounter Care Teams Quality Assurance Engineer Relationship Specialty Start Date End Date Laurie Elias NP PCP - General Family Medicine 03/02/1811/19/19 documented as of this encounter
--- OUTSIDE RECORDS SUMMARY | 2021-11-18 12:28 | XMS_ITS | Encounter Summary ---
:1945 Author Organization [facility] Address 330 [facility], [address] [place] [address] Care Team Providers Name Role Phone Laurie Elias NP Primary Care Provider Unavailable Reason for Referral Diagnostic Imaging (Routine) - Closed Specialty Diagnoses / Procedures Referred By Contact Refer red To Contact Radiology Diagnoses Diverticulitis Kevin Miranda MD Procedures CT Abdomen Pelvis with Contrast 1020 [place] [address] Referral ID Status Reason Start Date Expiration Date Visits Requ ested Visits Authorized [id number] Closed 04/12/2019 04/11/2020 1 1 Encounter Details Date Type Department Care Team Description 04/12/2019 Office Visit Kevin Trimble, Acute c ystitis with hematuria (Primary Dx); Practice Diverticulitis [facility] [place] [address] [place] [address] [place], [place] [phone] Social History Tobacco Use Types Packs/Day Years [...] Office Visit Family Medicine Kevin Miranda MD [address] [place] [address] (Wo rk) documented as of [...] 04/12/2019. Dictated: 04/12/2019 8:31 PM Report ID: [id number] Report signed in external system at 04/12 20:31 Reported By: Reggie Padilla Jr., M.D. ( [facility]) Signed By: Reggie Padilla Jr., M.D. ([facility]) Narrative 04/12/2019 8:31 PM EST RESPONSIBLE CLINICAL RESEARCH TECHNICIAN: Reggie Padilla Jr., M.D. EXAMINATION: CT ABDOMEN [...] might be different from the original. RESPONSIBLE CLINICAL RESEARCH TECHNICIAN: Reggie Padilla Jr., M.D. EXAMINATION: CT ABDOMEN [...] 04/12/2019. Dictated: 04/12/2019 8:31 PM Report ID: [id number] Report signed in external system at 04/12 20:31 Reported By: Reggie Paidlla Jr., M.D. ( [facility]) Signed By: Reggie Padilla Jr., M.D. ([facility]) Kevin Miranda MD IMG CT PROCEDURES (ABNORMAL) Comprehensive metabolic panel (04/12/2019 2:31 PM EST) [facility] Method Time Signature Sodium 136 (L) 137 - 145 04/12/2019 [facility] mmol/L 2:56 PM [facility] Potassium 4.4 3.5 - 5.1 04/12/2019 [facility] mmol/L 2:56 PM [facility] CHLORIDE 99 98 - 107 04/12/2019 [facility] mmol/L 2:56 PM [facility] CARBON DIOXIDE, 29.0 22.0 - 04/12/2019 [facility] TOTAL 30.0 2:56 PM [facility] mmol/L LABORATORY ANION GAP 8.0 6 - 14 04/12/2019 [facility] 2:56 PM [facility] GLUCOSE 109 (H) 70 - 99 04/12/2019 [facility] mg/dL 2:56 PM [facility] CALCIUM 9.5 8.3 - 10.3 04/12/2019 [facility] mg/dL 2:56 PM [facility] CREATININE 0.6 0.5 - 1.0 04/12/2019 [facility] mg/dL 2:56 PM [facility] ALBUMIN 3.8 3.5 - 5.0 04/12/2019 [facility] g/dL 2:56 PM [facility] Bilirubin Total 0.4 0.2 - 1.3 04/12/2019 [facility] mg/dL 2:56 PM [facility] BILIRUBIN DIRECT 0.3 0.0 - 0.4 04/12/2019 [facility] mg/dL 2:56 PM [facility] ALKALINE 104 38 - 126 04/12/2019 [facility] PHOSPHATASE U/L 2:56 PM [facility] AST (SGOT) 39 15 - 46 04/12/2019 [facility] U/L 2:56 PM [facility] ALT 45 13 - 69 04/12/2019 [facility] U/L 2:56 PM [facility] GFR >60 04/12/2019 [facility] 2:56 PM [facility] PROTEIN TOTAL 6.7 6.3 - 8.2 04/12/2019 [facility] g/dL 2:56 PM [facility] BUN 12 7 - 17 04/12/2019 [facility] mg/dL 2:56 PM [facility] Specimen Anatomical Collection Method / Collection Time Recei nancy Time (Source) Location / Volume Laterality Blood Venous blood / Venipuncture / 04/12/2019 2:31 04/12/19 20 2:31 Unknown Unknown PM [facility] EST Kevin Miranda MD LAB BLOOD ORDERABLES Performing Organization Address City/State/ZIP Code Phon e Number [facility] [address] [place] [address] LABORATORY CBC (04/12/2019 2:31 PM EST) P athologist Signature WBC 7.00 4.00 to 04/12/2019 [facility] 11.00 x 2:42 PM [facility] 10*3u/L LABORATORY 10*3/uL nRBC 0 0 - 0 /100 04/12/2019 [facility] WBCs 2:42 PM [facility] LABORATORY RBC 4.28 3.90 to 04/12/2019 [facility] 5.20 x 2:42 PM [facility] 10*6/uL LABORATORY 10*6/uL HGB 13.6 12.0 to 04/12/2019 [facility] 16.0 g/dL 2:42 PM [facility] g/dL LABORATORY HCT 40.0 36.0% to 04/12/2019 [facility] 46.0% % 2:42 PM [facility] LABORATORY MCV 93.5 80.0 to 04/12/2019 [facility] 100.0 fL fL 2:42 PM [facility] LABORATORY MCH 31.8 26.0 - 33.0 04/12/2019 [facility] pg 2:42 PM [facility] LABORATORY MCHC 34.0 31.0 to 04/12/2019 [facility] 37.0 g/dL 2:42 PM [facility] g/dL LABORATORY PLT 295 150 to 350 04/12/2019 [facility] x 10*3u/l 2:42 PM [facility] 10*3u/L LABORATORY RDW-CV 13.0 11.5 - 14.5 04/12/2019 [facility] % 2:42 PM [facility] Specimen Anatomical Collection Method / Collection Time Recei nancy Time (Source) Location / Volume Laterality Blood Venous blood / Venipuncture / 04/12/2019 2:31 04/12/19 20 2:31 Unknown Unknown PM EST PM EST Kevin Miranda MD LAB BLOOD ORDERABLES Performing Organization Address City/State/ZIP Code Phon e Number [facility] [address] [address] LABORATORY (ABNORMAL) Urine culture (04/12/2019 1:53 PM EST) Analysis Performed At [facility] Time Signature Urine Culture (A) [facility] Comment: ??CULTURE, URINE, ROUTINE ?Micro Number: ?[id number] ??Test Status: ? Final ??Specimen Source: ?? [...] Organization Address City/State/ZIP Code Phon e Number [facility] [address] [address] [place] [address], [address] [facility] [address] [place] [address], [facility] [address] [phone] Diagnost POCT urinalysis dipstick (04/12/2019 1:39 PM EST) [facility] gist Method Time Signature Color, UA [...] hemorrhage) documented in this encounter Care Teams Paint Prepper Relationship Specialty Start Date End Date Laurie Elias NP PCP - General Family Medicine 03/02/1811/19/19 documented as of this encounter
--- OUTSIDE RECORDS SUMMARY | 2021-11-18 12:28 | XMS_ITS | Encounter Summary ---
:1945 Author Organization [facility] Address 330 [facility], [address] [place] [address] Care Team Providers Name Role Phone JadaHeatherLaurie DIGITAL MEDIA COORDINATOR Primary Care Provider Unavailable Encounter Details Date Type Department Care Team Description 06/22/2018 Rehab [facility] Physical Se lázaro Jason MD [address] [place] [address] Chronic low back pain, Therapy Pricila Curry, PT unspecified back pain 725 [facility], [facility], with [address] [place] [address] unspecified (Primary Dx) [phone] Social History Tobacco Use Types Packs/Day Years Used Date Former Smoker Smokeless Tobacco: Never Used Alcohol Use Standard Drinks/Week Comments Defer 0 (1 standard drink = 0.6 oz pure alcoho l) Sex Assigned at Date Recorded Female 04/12/2019 2:19 PM EST documented as of this encounter Progress Notes Pricila Curry, PT - 06/22/2018 1:00 PM EDT Rehabilitation Services Physical Therapy 7[address] [facility], [address] [facility] [address] PROGRESS NOTE visit 11 [facility] Molly Rios is a [...] pain improved). Pt seen by PT at [facility] for R hip pain. Started doing side lying hip abd with 5 lb. Developed more pain (? Overdid her ex). + R sided groin pain. CC is weakness B hips. Referred to PT for consult. Will f/u with MD after completion of PT. Seen by ortho at [facility]-x-rays done, advised to strengthen/stretch R LE. ?? [...] Visit Family Medicine Kevin Miranda MD [address] [place], [place] [address] (Wo rk) documented as of this encounter Visit Diagnoses Diagnosis Chronic low back pain, unspecified back pain laterality, with sciatica presence unspecified - Primary documented in this encounter Care Teams Senior Safety Support Manager Relationship Specialty Start Date End Date Laurie Elias NP PCP - General Family Medicine 03/02/1811/19/19 documented as of this encounter
--- OUTSIDE RECORDS SUMMARY | 2021-11-18 12:28 | XMS_ITS | Encounter Summary ---
:1945 Author Organization [facility] Address [address] [facility], [address] [place] [address] Care Team Providers Name Role Phone Laurie Elias NP Primary Care Provider Unavailable Encounter Details Date Type Department Care Team Description 04/10/2019 Telephone [facility] Kevin Crowe MD [facility]0 [place] [address] [place], [place] [address] [place] [address] [phone] (Wo rk) Social History Tobacco Use Types [...] Visit Family Medicine Kevin Miranda MD [address] [place], [place] [address] (Wo rk) documented as of this encounter Visit Diagnoses Not on filedocumented in this encounter Care Teams Ampoule Washing Machine Operator Relationship Specialty Start Date End Date Laurie Elias NP PCP - General Family Medicine 03/02/1811/19/19 documented as of this encounter
--- OUTSIDE RECORDS SUMMARY | 2021-11-18 12:28 | XMS_ITS | Encounter Summary ---
:1945 Author Organization [facility] Address [address] [facility], [address] [place] [address] Care Team Providers Name Role Phone Laurie Elias NP Primary Care Provider Unavailable Encounter Details Date Type Department Care Team Description 12/06/2018 Anesthesia Event Godwin Johny Jaramillo MD Gastroenterology/Endoscop [address] [place] [address] [place] [address] [phone] Anesthesia Record Procedure Summary Procedure Name [...] Office Visit Family Medicine Kevin Miranda MD [facility] [place], [place] [address] (Wo rk) documented as [...] Pre-op documented in this encounter Care Teams International Account Representative Relationship Specialty Start Date End Date Laurie Elias NP PCP - General Family Medicine 03/02/1811/19/19 documented as of this encounter
--- OUTSIDE RECORDS SUMMARY | 2021-11-18 12:28 | XMS_ITS | Encounter Summary ---
:1945 Author Organization [facility] Address [address] [facility], [address] [place] [address] Care Team Providers Name Role Phone JadaHeatherLaurie ASPHALT TILE FLOOR LAYER Primary Care Provider Unavailable Encounter Details Date Type Department Care Team Description 06/06/2018 Rehab [facility] Physical Se lázaro Jason MD [address] [place] [address] Chronic low back pain, Therapy Pricila Curry, PT unspecified back pain [address] [facility], with [address] [place] [address] unspecified (Primary Dx) [phone] Social History Tobacco Use Types Packs/Day Years Used Date Former Smoker Smokeless Tobacco: Never Used Alcohol Use Standard Drinks/Week Comments Defer 0 (1 standard drink = 0.6 oz pure alcoho l) Sex Assigned at Date Recorded Female 04/12/2019 2:19 PM EST documented as of this encounter Progress Notes Pricila Curry, PT - 06/06/2018 1:30 PM EDT Rehabilitation Services Physical Therapy [address] [facility], [address] [facility] [address] PROGRESS NOTE visit 10 [facility] Molly Rios is a 73 [...] Visit Family Medicine Kevin Miranda MD [address] [place] [address] (Wo rk) documented as of this encounter Visit Diagnoses Diagnosis Chronic low back pain, unspecified back pain laterality, with sciatica presence unspecified - Primary documented in this encounter Care Teams Parts Specialist Relationship Specialty Start Date End Date Laurie Elias NP PCP - General Family Medicine 03/02/1811/19/19 documented as of this encounter
--- OUTSIDE RECORDS SUMMARY | 2021-11-18 12:28 | XMS_ITS | Encounter Summary ---
:1945 Author Organization [facility] Address [address] [facility], [address] [place] [address] Care Team Providers Name Role Phone Laurie Elias CLOCK AND WATCH HANDS PAINTER Primary Care Provider Unavailable Encounter Details Date [...] Visit Family Medicine Kevin Miranda MD [address] [place] [address] (Wo rk) documented as of this encounter Visit Diagnoses Not on filedocumented in this encounter Care Teams Ground Crewman Mission Support Relationship Specialty Start Date End Date Laurie Elias NP PCP - General Family Medicine 03/02/1811/19/19 documented as of this encounter
--- OUTSIDE RECORDS SUMMARY | 2021-11-18 12:29 | XMS_ITS | Encounter Summary ---
:1945 Author Organization [facility] Address [address] [facility], [address] [place] [address] Care Team Providers Name Role Phone Lisa Sotelo MD Primary Care Provider Reason for Referral Diagnostic Imaging (Routine) - Closed Specialty Diagnoses / Procedures Referred By Contact Refer red To Contact Radiology Diagnoses Osteopenia of neck of left femur Lisa Sotelo MD Procedures DEXA Bone Density [facility] [address] [place] [address] Referral ID Status Reason Start Date Expiration Date Visits Requ ested Visits Authorized [id number] Closed 01/16/2018 01/16/2019 1 1 Reason for Visit Reason Comments Office Visit Encounter Details Date Type Department Care Team Description 01/16/2018 Office Visit [facility] Lisa Sotelo Osteope feliberto of neck of left femur (Primary Dx); Practice MD Dense breasts; [facility]0 [place] [address] [place] [address] [place], [place] [phone] Social History Tobacco Use Types Packs/Day Years Used Date Former Smoker Smokeless Tobacco: Never Used Alcohol Use Standard Drinks/Week Comments Defer 0 (1 standard drink = 0.6 oz pure alcoho l) Sex Assigned at Date Recorded Female 04/12/2019 2:19 PM EST documented as of this encounter Last Filed Vital Signs Vital Sign Reading Time Taken Comments Blood Pressure 110/80 01/16/2018 2:05 PM EST Pulse 89 01/16/2018 2:05 PM EST Temperature 36.5 ??C (97.7 ??F) 01/16/2018 2:05 PM EST Respiratory Rate - - Oxygen Saturation 96% 01/16/2018 2:05 PM EST Inhaled Oxygen Concentration - - Weight 57.3 kg (126 lb 6.4 oz) 01/16/2018 2:05 PM EST Height - - Body Mass Index 19.8 11/01/2017 10:11 AM EDT documented in this encounter Progress Notes Lisa Sotelo - 01/16/2018 2:00 PM EST Osteopenia; She lost ground in her femoral neck (left side checked in 2015, had right side checked before) with T-1.6. She is still only swimming for exercise and we talked about weight bearing exercise, including wearing a 1-2 lb ankle weight once she is great at regular walking. She does climb stairs. 1200 mg calcium + 800-1000 iu vit D daily recommended. She isn't interested in meds, anyway, so would probably wait 2 yrs and recheck in late 2019. Order for updated DEXA placed. Dense breasts: On mammogram readings. I reassured her that an annual breast exam plus mammogram with3_d tomoxynthesis was adequate for otherwise low risk woman, and she has appt for her mammogram at [facility]. Left ear pain: She dries her hair and blows warm air into her ears after swimming and left ear bothers her. 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 On exam, no tragal tug pain. No lesions, redness of external ear or canal. TM partially covered by dry wax deep in canal. Reassured and I suggested avoiding blowing air into her ear. She would like to find a new female PCP, first choice via [facility]--I couldn't help her there, did recommend female providers at [facility]. documented in this encounter Plan of Treatment Upcoming Encounters Date Type Specialty Care Team Description 11/30/2021 Office Visit Family Medicine Kevin Miranda MD [address] [place], [place] [address] (Wo rk) documented as [...] sheets). Dictated: 01/18/2018 2:16 PM Report ID: [id number] Report signed in external system at 06/2017 14:16 Reported By: Ankit Richey M.D. (SCHJ 1) Signed By: Ankit Richey M.D. ([email or web address]) Narrative 01/18/2018 2:16 PM EST RESPONSIBLE DIAGNOSTIC MEDICAL SONOGRAPHER: Ankit Richey M.D. EXAMINATION: DEXA BONE DENSITY [...] 2016 FINDINGS: L-Spine: T-score -0.5 Z-score 1.7. ??This represents a 0.1% im provement from the prior examination. Right Femoral Neck: BMD 0.725 g/cm?? T-score -1.1 Z-score 0.7 Right Hip: T-score -1.1 Z-score 0.4. ??This represents a 1.1% im provement from the prior examination. Procedure Note Ankit Richey MD - 01/18/2018Forma tting of this note might be different from the original. RESPONSIBLE DIAGNOSTIC MEDICAL SONOGRAPHER: Ankit Richey M.D. EXAMINATION: DEXA BONE DENSITY CENTRAL CLINICAL INDICATION: Osteopenia. Postmenopausal female. TECHNIQUE: Dual Energy X-Ray Absorptiometry (DEXA t [employer]) was performed with measurements of the right [...] sheets). Dictated: 01/18/2018 2:16 PM Report ID: [id number] Report signed in external system at 06/2017 14:16 Reported By: Ankit Richey M.D. (SCHJ 1) Signed By: Ankit Richey M.D. ([email or web address]) Lisa Sotelo MD IMG DXA PROCEDURES documented in this encounter Visit Diagnoses Diagnosis Osteopenia of neck of left femur - Prima ry Dense breasts Inconclusive mammogram Left ear pain Unspecified otalgia Osteopenia of neck of left femur documented in this encounter Care Teams Water Rights Specialist Relationship Specialty Start Date End Date Lisa Sotelo MD PCP - General Family Medicine 08/19/16 03/01/[address] [place] [address] documented as of this encounter
--- OUTSIDE RECORDS SUMMARY | 2021-11-18 12:29 | XMS_ITS | Encounter Summary ---
:1945 Author Organization [facility] Address 330 [facility], [address] [place] [address] Care Team Providers Name Role Phone JadaLaurie velasquez ANN Primary Care Provider Unavailable Encounter Details Date Type Department Care Team Description 03/07/2018 Telephone [facility] zurita MD Consultants 330 [facility], [address] [facility] [address], [facility] [address] [place], [place] [address] [place] [address] [phone] (Wo rk) Social History Tobacco Use Types [...] Visit Family Medicine Kevin Miranda MD [address] [facility] [place] [address] (Wo rk) documented as of this encounter Visit Diagnoses Not on filedocumented in this encounter Care Teams Powertrain Engineer Relationship Specialty Start Date End Date Laurie Elias NP PCP - General Family Medicine 03/02/1811/19/19 documented as of this encounter
--- OUTSIDE RECORDS SUMMARY | 2021-11-18 12:29 | XMS_ITS | Encounter Summary ---
:1945 Author Organization [facility] Address [address] [facility], [address] [place] [address] Care Team Providers Name Role Phone Lisa [...] Medicine Kevin Miranda MD [facility]0 [place], [place] [address] (Wo rk) documented as of this encounter Visit Diagnoses Not on filedocumented in this encounter Care Teams Director Of Resource Development Relationship Specialty Start Date End Date Lisa Sotelo MD PCP - General Family Medicine 08/19/16 03/01/[address] [place] [address] documented as of this encounter
--- OUTSIDE RECORDS SUMMARY | 2021-11-18 12:29 | XMS_ITS | Encounter Summary ---
:1945 Author Organization [facility] Address [address] [facility], [address] [place] [address] Care Team Providers Name Role Phone JadaHeatherLaurie WELDING MACHINE OPERATOR GAS METAL ARC Primary Care Provider Unavailable Encounter Details Date Type Department Care Team Description 03/24/2018 Rehab [facility] Physical Se lázaro Jason MD [address] [place] [address] Chronic low back pain, Therapy Pricila Curry, PT unspecified back pain [address] [facility], [facility], with [address] [place] [address] unspecified (Primary Dx) [phone] Social History Tobacco Use Types Packs/Day Years [...] [address] [facility], [address] [place] [address] PROGRESS NOTE visit 3 ALBERT Rios [...] pain improved). Pt seen by PT at [facility] for R hip pain. Started doing side lying hip abd with 5 lb. Developed more pain (? Overdid her ex). + R sided groin pain. CC is weakness B hips. Referred to PT for consult. Will f/u with MD after completion of PT. Seen by ortho at [facility]-x-rays done, advised to strengthen/stretch R LE. ?? [...] Visit Family Medicine Kevin Miranda MD [address] [place], [place] [address] (Wo rk) documented as of this encounter Visit Diagnoses Diagnosis Chronic low back pain, unspecified back pain laterality, with sciatica presence unspecified - Primary documented in this encounter Care Teams Astro Technician Relationship Specialty Start Date End Date Laurie Elias NP PCP - General Family Medicine 03/02/1811/19/19 documented as of this encounter
--- OUTSIDE RECORDS SUMMARY | 2021-11-18 12:29 | XMS_ITS | Encounter Summary ---
:1945 Author Organization [facility] Address [address] [facility], [address] [place] [address] Care Team Providers Name Role Phone Laurie Elias CLAIM REPRESENTATIVE Primary Care Provider Unavailable Encounter Details [...] Visit Family Medicine Kevin Miranda MD [address] [place] [address] (Wo rk) documented as of this encounter Visit Diagnoses Not on filedocumented in this encounter Care Teams Power Saw Operator Relationship Specialty Start Date End Date Laurie Elias NP PCP - General Family Medicine 03/02/1811/19/19 documented as of this encounter
--- OUTSIDE RECORDS SUMMARY | 2021-11-18 12:29 | XMS_ITS | Encounter Summary ---
:1945 Author Organization [facility] Address 330 [facility], [address] [place] [address] Care Team Providers Name Role Phone Lisa Sotelo MD Primary Care Provider Encounter Details Date Type Department Care Team Description 01/31/2018 Refill [facility] Yessy Gee, [address] [place] [address] [place] [address] [place], [place] [address] (Wo rk) Social History [...] Visit Family Medicine Kevin Miranda MD [address] [place] [address] (Wo rk) documented as of this encounter Visit Diagnoses Not on filedocumented in this encounter Care Teams It Sales Representative Relationship Specialty Start Date End Date Lisa Sotelo MD PCP - General Family Medicine 08/19/16 03/01/18 [address] [place] [address] documented as of this encounter
--- OUTSIDE RECORDS SUMMARY | 2021-11-18 12:29 | XMS_ITS | Encounter Summary ---
:1945 Author Organization [facility] Address 330 [facility], [address] [place] [address] Care Team Providers Name Role Phone Lisa [...] Office Visit Family Medicine Kevin Miranda MD [facility] [place], [place] [address] (Wo rk) documented as of this encounter Visit Diagnoses Not on filedocumented in this encounter Care Teams Sourcing Internship Relationship Specialty Start Date End Date Lisa Sotelo MD PCP - General Family Medicine 08/19/16 03/01/[address] [place] [address] documented as of this encounter
--- OUTSIDE RECORDS SUMMARY | 2021-11-18 12:29 | XMS_ITS | Encounter Summary ---
:1945 Author Organization [facility] Address [address] [facility], [address] [place] [address] Care Team Providers Name Role Phone JadaHeatherLaurie AQUATIC INSTRUCTOR Primary Care Provider Unavailable Encounter Details Date Type Department Care Team Description 03/13/2018 Rehab [facility] Physical Se lázaro Jason MD [address] [place] [address] Chronic low back pain, Therapy Pricila Curry, PT unspecified back pain [address] [facility], [facility], with [address] [place] [address] unspecified (Primary Dx) [phone] Social History Tobacco Use Types Packs/Day Years Used Date Former Smoker Smokeless Tobacco: Never Used Alcohol Use Standard Drinks/Week Comments Defer 0 (1 standard drink = 0.6 oz pure alcoho l) Sex Assigned at Date Recorded Female 04/12/2019 2:19 PM EST documented as of this encounter Progress Notes Pricila Curry, PT - 03/13/2018 1:30 PM EST Rehabilitation Services Physical Therapy [address] [facility], [address] [facility] [address] PROGRESS NOTE visit 2 ALBERT Rios [...] pain improved). Pt seen by PT at [facility] for R hip pain. Started doing side lying hip abd with 5 lb. Developed more pain (? Overdid her ex). + R sided groin pain. CC is weakness B hips. Referred to PT for consult. Will f/u with MD after completion of PT. Seen by ortho at [facility]-x-rays done, advised to strengthen/stretch R LE. ?? [...] Office Visit Family Medicine Kevin Miranda MD [address] [place] [address] (Wo rk) documented as of this encounter Visit Diagnoses Diagnosis Chronic low back pain, unspecified back pain laterality, with sciatica presence unspecified - Primary documented in this encounter Care Teams Crystallizer Operator Relationship Specialty Start Date End Date Laurie Elias NP PCP - General Family Medicine 03/02/1811/19/19 documented as of this encounter
--- OUTSIDE RECORDS SUMMARY | 2021-11-18 12:29 | XMS_ITS | Encounter Summary ---
:1945 Author Organization [facility] Address [address] [facility], [address] [place] [address] Care Team Providers Name Role Phone Kevin Miranda MD Primary Care Provider Encounter Details Date Type Department Care Team Description 04/10/2018 Telephone [facility] Laurie Brown, ANN [address] [place] [address] Social History Tobacco Use Types Packs/Day Years [...] Visit Family Medicine Kevin Miranda MD [address] [place] [address] (Wo rk) documented as of this encounter Visit Diagnoses Not on filedocumented in this encounter Care Teams Hairspring Inspector Relationship Specialty Start Date End Date Kevin Miranda MD PCP - General Family Medicine 11/20/[address] [place] [address] documented as of this encounter
--- OUTSIDE RECORDS SUMMARY | 2021-11-18 12:29 | XMS_ITS | Encounter Summary ---
:1945 Author Organization [facility] Address 330 [facility], [address] [place] [address] Care Team Providers Name Role Phone Laurie Elias NP Primary Care Provider Unavailable Encounter Details Date Type Department Care Team Description 03/28/2018 Telephone [facility] Laurie Brown NP [address] [place], [place] [phone] Social History Tobacco Use Types Packs/Day Years [...] before her visit on 03/30. Calledover to [facility] and informed that Dr. Gorman will return [...] Office Visit Family Medicine Kevin Miranda MD [facility]0 [place], [place] [address] (Wo rk) documented as of this encounter Visit Diagnoses Not on filedocumented in this encounter Care Teams Security Guard Supervisor Relationship Specialty Start Date End Date Laurie Elias NP PCP - General Family Medicine 03/02/1811/19/19 documented as of this encounter
--- OUTSIDE RECORDS SUMMARY | 2021-11-18 12:29 | XMS_ITS | Encounter Summary ---
:1945 Author Organization [facility] Address [address] [facility], [address] [place] [address] Care Team Providers Name Role Phone Laurie Elias PATIENT REGISTRATION REPRESENTATIVE Primary Care Provider Unavailable Encounter Details [...] Office Visit Family Medicine Kevin Miranda MD [address] [place] [address] (Wo rk) documented as of this encounter Visit Diagnoses Not on filedocumented in this encounter Care Teams Pierogi Maker Relationship Specialty Start Date End Date Laurie Elias NP PCP - General Family Medicine 03/02/1811/19/19 documented as of this encounter
--- OUTSIDE RECORDS SUMMARY | 2021-11-18 12:29 | XMS_ITS | Encounter Summary ---
:1945 Author Organization [facility] Address [address] [facility], [address] [place] [address] Care Team Providers Name Role Phone Laurie Elias NP Primary Care Provider Unavailable Reason for Referral Diagnostic Imaging (Routine) - Closed Specialty Diagnoses / Procedures Referred By Contact Refer red To Contact Radiology Diagnoses Diverticulitis Laurie Elias NP Procedures CT Abdomen Pelvis with Contrast [address] [place] [address] Referral ID Status Reason Start Date Expiration Date Visits Requ ested Visits Authorized [id number] Closed 04/09/2018 04/09/2019 1 1 Encounter Details Date Type Department Care Team Description 04/07/2018 Office Visit Kaushik Elias, Diverticul itis (Primary Dx); Practice ANN Sullivan Vitamin D deficiency [address] [id number] Social History Tobacco Use Types Packs/Day Years [...] pain. Discussed case with Dr. Gorman at [facility], who recommended repeating CT to determine [...] Visit Family Medicine Kevin Miranda MD [address] [place], [place] [address] (Wo rk) Scheduled Orders [...] Differential and Platelets) (04/07/2018 1:28 PM EST) [facility] Method Time Signature White Blood 10.3 3.8 - [facility] Count 10.8 [facility] [place] uL Diagnost Red Blood Count 4.72 3.80 - [facility] ics 5.10 [place] [facility] L [facility] Hemoglobin 14.5 11.7 - [facility] 15.5 g/dL [place] [facility] Hematocrit 42.9 35.0 - [facility] 45.0 % [place] [facility] MCV 90.9 80.0 - [facility] 100.0 fL [place] [facility] MCH 30.7 27.0 - [facility] 33.0 pg [place] [facility] MCHC 33.8 32.0 - [facility] 36.0 g/dL [place] [facility] MRDW 12.7 11.0 - [facility] 15.0 % [place] [facility] Platelet count 398 140 - 400 [facility] cs [facility] [place] [facility] MPV 10.0 7.5 - [facility] 12.5 fL [place] [facility] Absolute 7,189 1,500 - [facility] Neutrophil Count 7,800 [place] cells/uL [facility] Lymphosytes 1,978 850 - [facility] absolute 3,900 [place] cells/uL [facility] Absolute 834 200 - 950 [facility] Monocyte count cells/uL [place] [facility] Absolute 175 15 - 500 [facility] Eosinophil count cells/uL [place] [facility] Lymphocyte 124 0 - 200 [facility] cells/uL [place] [facility] Neutrophils 69.8 % [facility] Lymphocyte 19.2 % [facility] Monocytes 8.1 % [facility] [place] [facility] Eosinophil 1.7 % [facility] [place] [facility] Basophil 1.2 % [facility] [place] [facility] Specimen Anatomical Collection Method Collection Time Receive d Time (Source) Location / / Volume Laterality 04/07/2018 1:28 PM 9 1:29 EST PM EST Laurie Elias NP LAB BLOOD ORDERABLES Performing Organization Address City/State/ZIP Code Phon e Number [facility] [address] [address] [place] [address], [address] [facility] [address] [place] [address] [place] [address] [address] Diagnost Vitamin D 1,25 dihydroxy (04/07/2018 1:28 PM EST) P athologist Signature Vitamin 62 18 - 72 [facility] 1,25-OH,Total pg/mL Diagnostics/[facility] Vitamin D3, 62 pg/mL [facility] 1,25-OH Diagnostics/[facility] Vitamin <8 pg/mL [facility] D2,1,25-OH Diagnostics/[facility] Comment: Vitamin D3, 1,25(OH) indicates both endo genous production and supplementation. Vitamin D2, 1,25(OH)2 is an indicator of exogenous sources, hidalgo ch as diet or supplementation. ??Interpretation and th erapy are based on measurement of Vitamin D,1,25(OH)2, T otal. This test was developed and its analytic al performance characteristics have been de termined by [employer], [place], [place]. It has not been cleared or approved by [facility]. This assay has been validated pursuant to the CLIA regulations and is used for clinical pur poses. Specimen Anatomical Collection Method Collection Time Receive d Time (Source) Location / / Volume Laterality Blood Venous blood / 04/07/2018 1:28 PM 019 1:29 Unknown EST PM EST Laurie Elias NP LAB BLOOD ORDERABLES Performing Organization Address City/State/ZIP Code Phon e Number [facility], [address] [phone] [place] [address], [address] [facility] [address] [place] [address] Diagnostics/[facility] documented in this encounter Visit Diagnoses Diagnosis Diverticulitis - Primary Diverticulitis of colon (without mention of hemorrhage) Vitamin D deficiency documented in this encounter Care Teams Breakfast Cook Relationship Specialty Start Date End Date Laurie Elias NP PCP - General Family Medicine 03/02/1811/19/19 documented as of this encounter
--- OUTSIDE RECORDS SUMMARY | 2021-11-18 12:29 | XMS_ITS | Encounter Summary ---
:1945 Author Organization [facility] Address [address] [facility], [address] [place] [address] Care Team Providers Name Role Phone Laurie Elias NP Primary Care Provider Unavailable Encounter Details Date Type Department Care Team Description 03/15/2018 Telephone [facility] Dallas zurita MD [facility] [address] [facility], [address] [facility] [address], [facility] [address] [place], [place] [id number] [place] [address] [phone] (Wo rk) Social History Tobacco Use Types [...] Visit Family Medicine Kevin Miranda MD [address] [facility] [place] [address] (Wo rk) documented as of this encounter Visit Diagnoses Not on filedocumented in this encounter Care Teams Paid Search Marketing Analyst Relationship Specialty Start Date End Date Laurie Elias NP PCP - General Family Medicine 03/02/1811/19/19 documented as of this encounter
--- OUTSIDE RECORDS SUMMARY | 2021-11-18 12:29 | XMS_ITS | Encounter Summary ---
:1945 Author Organization [facility] Address [address] [facility], [address] [place] [address] Care Team Providers Name Role Phone Laurie Elias NP Primary Care Provider Unavailable Encounter Details Date Type Department Care Team Description 03/04/2018 Telephone [facility] José Antonio ling MD [facility] [address] [facility], [address] [facility] [address], [facility] [address] [address] [phone] (Wo rk) Social History Tobacco Use Types [...] questions or concerns. Kerwin Shipley MD, MPH [facility] [phone] documented in this encounter Plan of Treatment Upcoming Encounters Date Type Specialty Care Team Description 11/30/2021 Office Visit Family Medicine Kevin Miranda MD [address] [place], [place] [address] (Wo rk) documented as of this encounter Visit Diagnoses Not on filedocumented in this encounter Care Teams Blaster Helper Relationship Specialty Start Date End Date Laurie Elias NP PCP - General Family Medicine 03/02/1811/19/19 documented as of this encounter
--- OUTSIDE RECORDS SUMMARY | 2021-11-18 12:29 | XMS_ITS | Encounter Summary ---
:1945 Author Organization [facility] Address [address] [facility], [address] [place] [address] Care Team Providers Name Role Phone JadaHeather velasquezecca ANN Primary Care Provider Unavailable Encounter Details Date Type Department Care Team Description 03/03/2018 Telephone [facility] Dallas zurita MD [facility] [address] [facility], [address] [facility] [address], [facility] [address] [place], [place] [address] [place] [address] [phone] (Wo rk) Social History Tobacco Use Types [...] Family Medicine Kevin Miranda MD [address] [facility] [place] [address] (Wo rk) documented as of this encounter Visit Diagnoses Not on filedocumented in this encounter Care Teams Construction And Maintenance Inspector Relationship Specialty Start Date End Date Laurie Elias NP PCP - General Family Medicine 03/02/1811/19/19 documented as of this encounter
--- OUTSIDE RECORDS SUMMARY | 2021-11-18 12:29 | XMS_ITS | Encounter Summary ---
:1945 Author Organization [facility] Address [address] [facility], [address] [place] [address] Care Team Providers Name Role Phone Laurie Elias NP Primary Care Provider Unavailable Reason for Referral Diagnostic Imaging (Routine) - Closed Specialty Diagnoses / Procedures Referred By Contact Refer red To Contact Radiology Diagnoses Diverticulitis Lower abdominal pain Laurie Elias NP Procedures CT Abdomen Pelvis with Contrast [address] [place] [address] Referral ID Status Reason Start Date Expiration Date Visits Requ ested Visits Authorized [id number] Closed 03/02/2018 03/02/2019 1 1 Encounter Details Date Type Department Care Team Description 03/02/2018 Office Visit Kaushik Elias, Diverticul itis (Primary Dx); Practice ANN Sullivan Lower abdominal pain [address] [place] [address] Social History Tobacco Use Types Packs/Day Years [...] female with PMHx known severe sigmoid diverticulosis ([id number]) who presents for same-day visit. She believes she may be having a flare-up of diverticulitis. She had similar symptoms in 12/2017, and she improved with a course of augmentin and bowel rest. Since that time, she has been generally well. She followed-up with Dr. Gorman at [facility] 01/26/[address] if [...] Visit Family Medicine Kevin Miranda MD [address] [place], [place] [address] (Wo rk) documented as [...] ation. Dictated: 03/03/2018 10:05 PM Report ID: [id number] Report signed in external system at 03/03 22:05 Reported By: Andi Hartley M.D. (residen t) ([id number]) Signed By: Gt Ledezma M.D. (LAURA D) Narrative 03/03/2018 10:05 PM EST RESPONSIBLE PLANT TECHNICIAN/CONTROL ROOM OPERATOR: Gt Ledezma M.D. EXAMINATION: CT ABDOMEN PELVIS [...] might be different from the original. RESPONSIBLE PLANT TECHNICIAN/CONTROL ROOM OPERATOR: Gt Ledezma M.D. EXAMINATION: CT ABDOMEN PELVIS [...] ation. Dictated: 03/03/2018 10:05 PM Report ID: [id number] Report signed in external system at 03/03 22:05 Reported By: Andi Hartley M.D. (pam dorman) ([id number]) Signed By: Gt Ledezma M.D. (LAURA Betancur) Laurie Elias NP IMG CT PROCEDURES (ABNORMAL) [facility] - CBC (with Differential and Platelets) (03/02/2018 3:10 PM EST) [facility] Method Time Signature White Blood 19.4 (H) 3.8 - [facility] Count 10.8 [facility] [place] [facility] Red Blood Count 4.52 3.80 - [facility] 5.10 [facility] Million/u [place] L [facility] Hemoglobin 14.2 11.7 - [facility] 15.5 g/dL [facility] [place] [facility] Hematocrit 41.5 35.0 - [facility] 45.0 % [facility] [place] [facility] MCV 91.8 80.0 - [facility] 100.0 fL [facility] [place] [facility] MCH 31.4 27.0 - [facility] 33.0 pg [facility] [place] [facility] MCHC 34.2 32.0 - [facility] 36.0 g/dL [facility] [place] [facility] MRDW 13.0 11.0 - [facility] 15.0 % [facility] [place] [facility] Platelet count 276 140 - 400 [facility] Thousand/ Diagnostics uL [place] [facility] MPV 10.1 7.5 - [facility] 12.5 fL [facility] [place] [facility] Absolute 17,324 1,500 - [facility] Neutrophil (H) 7,800 Diagnostics Count cells/uL [place] [facility] Lymphosytes 873 850 - [facility] absolute 3,900 Diagnostics cells/uL [place] [facility] Absolute 1,125 (H) 200 - 950 [facility] Monocyte count cells/uL [facility]ostics [place] [facility] Absolute 19 15 - 500 [facility] Eosinophil cells/uL Diagnostics count [place] [facility] Lymphocyte 58 0 - 200 [facility] cells/uL Diagnostics [place] [facility] Neutrophils 89.3 % [facility] [place] [facility] Lymphocyte 4.5 % [facility] [place] [facility] Monocytes 5.8 % [facility] [place] [facility] Eosinophil 0.1 % [facility] [place] [facility] Basophil 0.3 % [facility] [place] [facility] Specimen Anatomical Collection Method Collection Time Receive d Time (Source) Location / / Volume Laterality Blood Venous blood / 03/02/2018 3:10 PM 019 Unknown EST 10:39 PM EST Laurie Elias NP LAB BLOOD ORDERABLES Performing Organization Address City/State/ZIP Code Phon e Number [facility] [address] [address] [place] [address] [address] [facility] [address] [place] [address] [employer] [address] [phone] Diagnost (ABNORMAL) Basic metabolic panel (03/02/2018 3:10 PM EST) athologist Signature Glucose 106 (H) 65 - 99 [facility] mg/dL [place] link birdt Comment: ? Fasting reference interv al For someone without known diabetes, a gl ucose value between 100 and 125 mg/dL is consistent with prediabetes and should be confirmed with a follow-up test. Bun 11 7 - 25 mg/dL [facility] [place] [facility] Creatinine, Ser 0.67 0.60 - 0.93 mg/dL [facility] [place] [facility] Comment: For patients >49 years of age, the refer ence limit for Creatinine is approximately 13% high er for people identified as -Mongolian. eGFR NON-AFR. 88 > OR = 60 mL/min/1.73m2 Qu est Diagnostics [facility] eGFR 102 > OR = 60 mL/min/1.73m2 Que st Diagnostics [facility] BUN/Creatinine NOT APPLICABLE 6 - 22 (calc) [facility] Ratio [place] [facility] Sodium 138 135 - 146 mmol/L [facility] [place] [facility] Potassium 4.0 3.5 - 5.3 mmol/L [facility] [place] [facility] Chloride 102 98 - 110 mmol/L [facility] [place] [facility] CO2 28 20 - 32 mmol/L [facility] cs [place] [facility] Calcium 9.9 8.6 - 10.4 mg/dL [facility] [place] [facility] Specimen Anatomical Collection Method Collection Time Receive d Time (Source) Location / / Volume Laterality Blood Venous blood / 03/02/2018 3:10 PM 019 Unknown EST 10:39 PM EST Laurie Elias NP LAB BLOOD ORDERABLES Performing Organization Address City/State/ZIP Code Phon e Number [facility] [address] [address] [place] [address] B [facility] [address] [place] [address] [employer] [address] [phone] Diagnost documented in this encounter Visit Diagnoses Diagnosis Diverticulitis - Primary Diverticulitis of colon (without mention of hemorrhage) Lower abdominal pain Abdominal pain, other specified site Diverticulitis Diverticulitis of colon (without mention of hemorrhage) Lower abdominal pain Abdominal pain, other specified site documented in this encounter Care Teams Steel Pourer Relationship Specialty Start Date End Date Laurie Elias NP PCP - General Family Medicine 03/02/1811/19/19 documented as of this encounter
--- OUTSIDE RECORDS SUMMARY | 2021-11-18 12:29 | XMS_ITS | Encounter Summary ---
:1945 Author Organization [facility] Address [address] [facility], [address] [place] [address] Care Team Providers Name Role Phone Laurie Elias RETORT CONDENSER ATTENDANT Primary Care Provider Unavailable Encounter Details Date [...] Visit Family Medicine Kevin Miranda MD [address] [place] [address] (Wo rk) documented as of this encounter Visit Diagnoses Not on filedocumented in this encounter Care Teams Clinical Lab Scientist Relationship Specialty Start Date End Date Laurie Elias NP PCP - General Family Medicine 03/02/1811/19/19 documented as of this encounter
--- OUTSIDE RECORDS SUMMARY | 2021-11-18 12:29 | XMS_ITS | Encounter Summary ---
:1945 Author Organization [facility] Address [address] [facility], [address] [place] [address] Care Team Providers Name Role Phone Laurie Elias NP Primary Care Provider Unavailable Encounter Details Date Type Department Care Team Description 03/07/2018 Telephone [facility] Laurie Brown NP [address] [place], [place] [id number] Social History Tobacco Use Types Packs/Day Years [...] Family Medicine Kevin Miranda MD [facility] [place], [place] [address] (Wo rk) documented as of this encounter Visit Diagnoses Not on filedocumented in this encounter Care Teams Land Management Supervisor Relationship Specialty Start Date End Date Laurie Elias NP PCP - General Family Medicine 03/02/1811/19/19 documented as of this encounter
--- OUTSIDE RECORDS SUMMARY | 2021-11-18 12:29 | XMS_ITS | Encounter Summary ---
:1945 Author Organization [facility] Address [address] [facility], [address] [place] [address] Care Team Providers Name Role Phone Laurie Elias NP Primary Care Provider Unavailable Reason for Referral Rehab (Routine) - Closed Specialty Diagnoses / Procedures Referred By Contact Refer red To Contact Physical Therapy Diagnoses Groin pain, chronic, left Nawaf Jason MD Duddy, Cathy, PT [address] [place] [address] Referral ID Status Reason Start Date Expiration Date Visits V isits Requested Authorized [id number] Closed Specialty 01/25/2018 01/25/2019 1 1 Services Required Reason for Visit Specialty (Routine) - Closed Specialty Diagnoses / Referred By Contact Referred To Contact Procedures Physical Medicine and Diagnoses Low back pain MRI FOLLOW-UP Lisa Sotelo MD Mostoufi, Seyed A, Rehabilitation Procedures FOLLOW UP [address] [place] [address] [facility] [place] [address] [place] [address] Fax: Referral ID Status Reason Start Date Expiration Date Visits Requ ested Visits Authorized [id number] Closed 06/13/2017 06/13/2018 8 8 Encounter Details Date Type Department Care Team Description 01/25/2018 Office Visit Nawaf Faulkner, Lumbar fa cet arthropathy (Primary Dx); Physiatry, [facility] Radiculopathy, lumbar region; [address] It band syndrome, left; [place] [address] [place], [place] Groin pain, chronic, left; [phone] Tendinopathy of left gluteus medius Social History [...] from the original note were not included. [facility] T: [phone] F:[phone] [employer] .[place] Patient / [place] : 1945 PCP Lisa Sotelo MD Visit Location [facility] [place] : [address] [phone] Provider Nawaf Jason MD REASON FOR PM&R [...] flavum hypertrophy. Bilateral disc protrusions result in afmw-zy-neeubvql right and mild left neural foraminal narrowing, [...] physical therapist on this includes working on anglican of her range of motion working and [...] available PT notes obtained & reviewed. RESULT REVIEWED([id number]) Available PACS as well as results reviewed [...] views ap lat Narrative [place] Ministerio [id number] [facility] Silvia.Yessy Leyva Kallie UNK [id number] 1945 68 07/02/2013 Clinical History: RT BUTTOCK AND HIP PAIN EXAM# TYPE/EXAM RESULT [id number] NOB542/LUMBAR SPINE 2-3 VIEWS Attending Radiologist: MD OROZCO [...] are preserved. Impression: Degenerative change. Report ID: [id number] Dictated: 07/02/13 1328 PAGE 1 Signed Report (CONTINUED) [place] [id number] Stewart JohnYessy UNK UNK [id number] 1945 68 07/02/2013 Clinical History: RT BUTTOCK AND HIP PAIN EXAM# TYPE/EXAM RESULT [id number] SGC237/LUMBAR SPINE 2-3 VIEWS <Continued> ---- Electronic Signature on File ---- Signed By: RAMA OROZCO M.D. Reported By: RAMA OROZCO M.D. CC: Hieu Trevizo M.D.; Yessy William N.P. PAGE 2 Signed Report CC: Hieu Trevizo M.D.; Yessy William N.P. PAGE 2 Signed Report Radiologist JACQUELINE Furniture Manager: PANKAJ Historiography Professor: CRISTIAN Results for orders placed during the hospital encounter of 06/22/17 MRI Lumbar Spine without Contrast Narrative RESPONSIBLE VP SCIENTIFIC AFFAIRS: Dusty Norwood M.D. EXAMINATION: MRI LUMBAR SPINE [...] canal stenosis. Bilateral disc protrusions result in abhx-tl-wqmamjjt right and mild left neural foraminal narrowing, [...] foramina and contact of the exiting right E3ckreq root. There is jxsn-wh-dlqknaxp encroachment of the left neural foramina, but [...] flavum hypertrophy. Bilateral disc protrusions result in aaxr-rx-mlccfveo right and mild left neural foraminal narrowing, [...] for further education on the topic : Lab21 DISCLAIMER Please note that this record has [...] Visit Family Medicine Kevin Miranda MD [facility] [place], [place] [address] (Wo rk) Scheduled Orders Name Type Priority Associated Diagnoses Order S fayedubrittanie Physician Musculoskeletal Procedures Routine Tendinopathy of left [...] medius documented in this encounter Care Teams Diver Helper Relationship Specialty Start Date End Date Laurie Elias NP PCP - General Family Medicine 03/02/1811/19/19 documented as of this encounter
--- OUTSIDE RECORDS SUMMARY | 2021-11-18 12:29 | XMS_ITS | Encounter Summary ---
:1945 Author Organization [facility] Address [address] [facility], [address] [place] [address] Care Team Providers Name Role Phone Lisa [...] Office Visit Family Medicine Kevin Miranda MD [facility] [place], [place] [address] (Wo rk) documented as of this encounter Visit Diagnoses Not on filedocumented in this encounter Care Teams Criminal Investigator Customs Relationship Specialty Start Date End Date Lisa Sotelo MD PCP - General Family Medicine 08/19/16 03/01/[address] [place] [address] documented as of this encounter
--- OUTSIDE RECORDS SUMMARY | 2021-11-18 12:29 | XMS_ITS | Encounter Summary ---
:1945 Author Organization [facility] Address [address] [facility], [address] [place] [address] Care Team Providers Name Role Phone Laurie Elias NP Primary Care Provider Unavailable Reason for Referral Diagnostic Imaging (Routine) - Closed Specialty Diagnoses / Procedures Referred By Contact Refer red To Contact Radiology Diagnoses Diverticulitis Lower abdominal pain Laurie Elias NP Procedures CT Abdomen Pelvis with Contrast [address] [place] [address] Referral ID Status Reason Start Date Expiration Date Visits Requ ested Visits Authorized [id number] Closed 03/02/2018 03/02/2019 1 1 Reason for Visit Diagnostic Imaging (Routine) - Closed Specialty Diagnoses / Procedures Referred By Contact Refer red To Contact Radiology Diagnoses Diverticulitis Lower abdominal pain Laurie Elias NP Procedures CT Abdomen Pelvis with Contrast [address] [place] [address] Referral ID Status Reason Start Date Expiration Date Visits Requ ested Visits Authorized [id number] Closed 03/02/2018 03/02/2019 1 1 Encounter Details Date Type Department Care Team Description 03/03/2018 Hospital Encounter [facility] CT Letty Elias Scan COMPUTER SYSTEMS INTEGRATOR [address] [place] [address] Social History Tobacco Use Types Packs/Day [...] Visit Family Medicine Kevin Miranda MD [address] [place] [address] (Wo rk) documented as of [...] ation. Dictated: 03/03/2018 10:05 PM Report ID: [id number] Report signed in external system at 03/03 22:05 Reported By: Andi Hartley M.D. (residehillary dorman) ([id number]) Signed By: Gt Ledezma M.D. (LAURA Betancur) Narrative 03/03/2018 10:05 PM EST RESPONSIBLE PAEDIATRICIAN: Gt Ledezma M.D. EXAMINATION: CT ABDOMEN PELVIS [...] might be different from the original. RESPONSIBLE PAEDIATRICIAN: Gt Ledezma M.D. EXAMINATION: CT ABDOMEN PELVIS [...] ation. Dictated: 03/03/2018 10:05 PM Report ID: [id number] Report signed in external system at 03/03 22:05 Reported By: Andi Hartley M.D. (pam dorman) ([id number]) Signed By: Gt Ledezma M.D. (LAURA Betancur) [...] dose documented in this encounter Care Teams Disc Inspector Relationship Specialty Start Date End Date Laurie Elias NP PCP - General Family Medicine 03/02/1811/19/19 documented as of this encounter
--- OUTSIDE RECORDS SUMMARY | 2021-11-18 12:29 | XMS_ITS | Encounter Summary ---
:1945 Author Organization [facility] Address [address] [facility], [address] [place] [address] Care Team Providers Name Role Phone JadaHeatherLaurie HOUSEKEEPING STAFF Primary Care Provider Unavailable Encounter Details Date Type Department Care Team Description 04/05/2018 Rehab [facility] Physical Se lázaro Jason MD [address] [place] [address] Chronic low back pain, Therapy Pricila Curry, PT unspecified back pain [address] [facility], [facility], with [address] [place] [address] unspecified (Primary Dx) [phone] Social History Tobacco Use Types Packs/Day Years Used Date Former Smoker Smokeless Tobacco: Never Used Alcohol Use Standard Drinks/Week Comments Defer 0 (1 standard drink = 0.6 oz pure alcoho l) Sex Assigned at Date Recorded Female 04/12/2019 2:19 PM EST documented as of this encounter Progress Notes Pricila Curry, PT - 04/05/2018 1:30 PM EST Rehabilitation Services Physical Therapy [address] [facility], [address] [facility] [address] PROGRESS NOTE visit 5 ALBERT [...] Family Medicine Kevin Miranda MD [facility] [place], [place] [address] (Wo rk) documented as of this encounter Visit Diagnoses Diagnosis Chronic low back pain, unspecified back pain laterality, with sciatica presence unspecified - Primary documented in this encounter Care Teams Shop Hand Relationship Specialty Start Date End Date Laurie Elias NP PCP - General Family Medicine 03/02/1811/19/19 documented as of this encounter
--- OUTSIDE RECORDS SUMMARY | 2021-11-18 12:29 | XMS_ITS | Encounter Summary ---
:1945 Author Organization [facility] Address [address] [facility], [address] [place] [address] Care Team Providers Name Role Phone Laurie Elias PAVING CONTRACTOR Primary Care Provider Unavailable Encounter Details Date Type Department Care Team Description 03/02/2018 Orders Only [facility] Laurie Brown NP [address] [place] [address] Social History Tobacco Use Types [...] (03/02/2018 3:15 PM EST) Analysis Performed At [facility] Time Signature White Blood TNP [place] Comment: * Test not performed. ? * * Duplicate test. ? * Specimen Anatomical Collection Method Collection Time Receive d Time (Source) Location / / Volume Laterality 03/02/2018 3:15 PM 9 3:18 EST PM EST Laurie Elias NP LAB BLOOD ORDERABLES Performing Organization Address [facility] Phon e Number [employer] [address] [facility] [address] [place] [address] [employer] [address] [id number] [facility] Basic metabolic panel (03/02/2018 3:15 PM EST) P athologist Signature Glucose TNP mg/dL [facility] [place] [employer] [facility] Comment: * Test not performed. ? * * Duplicate test. ? * Specimen Anatomical Collection Method Collection Time Receive d Time (Source) Location / / Volume Laterality 03/02/2018 3:15 PM 9 3:18 EST PM EST Laurie Elias NP LAB BLOOD ORDERABLES Performing Organization Address [facility] Phon e Number [employer] [address], [address] [facility] [address] [place] [address] [employer] [address] [address] [facility] documented in this encounter Visit Diagnoses Not on filedocumented in this encounter Care Teams Molecular Modeler Relationship Specialty Start Date End Date Laurie Elias NP PCP - General Family Medicine 03/02/1811/19/19 documented as of this encounter
--- OUTSIDE RECORDS SUMMARY | 2021-11-18 12:29 | XMS_ITS | Encounter Summary ---
:1945 Author Organization [facility] Address [address] [facility], [address] [place] [address] Care Team Providers Name Role Phone Laurie Elias DISTRICT DIRECTOR Primary Care Provider Unavailable Encounter Details [...] Visit Family Medicine Kevin Miranda MD [address] [place] [address] (Wo rk) documented as of this encounter Visit Diagnoses Not on filedocumented in this encounter Care Teams Scow Captain Relationship Specialty Start Date End Date Laurie Elias NP PCP - General Family Medicine 03/02/1811/19/19 documented as of this encounter
--- OUTSIDE RECORDS SUMMARY | 2021-11-18 12:29 | XMS_ITS | Encounter Summary ---
:1945 Author Organization [facility] Address [address] [facility], [address] [place] [address] Care Team Providers Name Role Phone Kevin Miranda MD Primary Care Provider Encounter Details Date Type Department Care Team Description 02/09/2018 Orders Only [facility] actice Provider, MD Harsh [address] [place] [address] [phone] Social History Tobacco Use Types Packs/Day Years [...] Visit Family Medicine Kevin Miranda MD [address] [place] [address] (Wo rk) documented as of this encounter Procedures Procedure Name Priority Date/Time Associated Diagnosis Comme nts MAMMOGRAPHY Routine 02/04/2018 documented in this encounter Results MAMMOGRAPHY (02/04/2018) Anatomical Region Laterality Modality Other Narrative This result has an attachment that is no t available. Historical Provider MD HEALTH MAINTENANCE documented in this encounter Visit Diagnoses Not on filedocumented in this encounter Care Teams Vegetable Scullion Relationship Specialty Start Date End Date Kevni Miranda MD PCP - General Family Medicine 11/20/19 [address] [place] [address] documented as of this encounter
--- OUTSIDE RECORDS SUMMARY | 2021-11-18 12:29 | XMS_ITS | Encounter Summary ---
:1945 Author Organization [facility] Address [address] [facility], [address] [place] [address] Care Team Providers Name Role Phone Lisa [...] Kevin Miranda MD [facility] [place], [place] [address] (Wo rk) documented as of this encounter Visit Diagnoses Not on filedocumented in this encounter Care Teams Getter Operator Relationship Specialty Start Date End Date Lisa Sotelo MD PCP - General Family Medicine 08/19/16 03/01/[address] [place] [address] documented as of this encounter
--- OUTSIDE RECORDS SUMMARY | 2021-11-18 12:29 | XMS_ITS | Encounter Summary ---
:1945 Author Organization [facility] Address [address] [facility], [address] [place] [address] Care Team Providers Name Role Phone Laurie Elias CLERK STENOGRAPHER Primary Care Provider Unavailable Encounter Details Date [...] Visit Family Medicine Kevin Miranda MD [address] [place] [address] (Wo rk) documented as of this encounter Visit Diagnoses Not on filedocumented in this encounter Care Teams Manager Hematology Relationship Specialty Start Date End Date Laurie Elias NP PCP - General Family Medicine 03/02/1811/19/19 documented as of this encounter
--- OUTSIDE RECORDS SUMMARY | 2021-11-18 12:29 | XMS_ITS | Encounter Summary ---
:1945 Author Organization [facility] Address [address] [facility], [address] [place] [address] Care Team Providers Name Role Phone Laurie Elias HOTEL ASSISTANT MANAGER Primary Care Provider Unavailable Encounter Details Date Type Department Care Team Description 03/22/2018 Orders Only [facility] Jose Daniel Jones, [address], [facility] [address] [place] [address] [address] [facility]. [address] [place], [place] [address] Social History Tobacco Use [...] Office Visit Family Medicine Kevin Miranda MD [facility] [place], [place] [address] (Wo rk) documented as of this encounter Visit Diagnoses Not on filedocumented in this encounter Care Teams Preparation Plant Supervisor Relationship Specialty Start Date End Date Laurie Elias NP PCP - General Family Medicine 03/02/1811/19/19 documented as of this encounter
--- OUTSIDE RECORDS SUMMARY | 2021-11-18 12:29 | XMS_ITS | Encounter Summary ---
:1945 Author Organization [facility] Address 330 [facility], [address] [place] [address] Care Team Providers Name Role Phone Laurie Elias NP Primary Care Provider Unavailable Reason for Visit Reason Onset Date Comments Abdominal Pain 03/02/2018 Encounter Details Date Type Department Care Team Description 03/02/2018 Telephone [facility] [place], Abdominal [facility] [address] [facility] [place] t, [facility] [address] [place] [address] , [address] [place], [place] [address] (Wo rk) Social History [...] Visit Family Medicine Kevin Miranda MD [address] [facility] [place] [address] (Wo rk) documented as of this encounter Visit Diagnoses Not on filedocumented in this encounter Care Teams Warranty Coordinator Relationship Specialty Start Date End Date Laurie Elias NP PCP - General Family Medicine 03/02/1811/19/19 documented as of this encounter
--- OUTSIDE RECORDS SUMMARY | 2021-11-18 12:29 | XMS_ITS | Encounter Summary ---
:1945 Author Organization [facility] Address [address] [facility], [address] [place] [address] Care Team Providers Name Role Phone JadaLaurie velasquez CLINICAL TRIAL DATA MANAGER Primary Care Provider Unavailable Encounter Details Date Type Department Care Team Description 03/09/2018 Rehab [facility] Physical Se lázaro Jason MD [address] [place] [address] Chronic low back pain, Therapy Pricila Curry, PT unspecified back pain [address] [facility], [facility], with [address] [place] [address] unspecified (Primary Dx) [phone] Social History Tobacco Use Types Packs/Day Years Used Date Former Smoker Smokeless Tobacco: Never Used Alcohol Use Standard Drinks/Week Comments Defer 0 (1 standard drink = 0.6 oz pure alcoho l) Sex Assigned at Date Recorded Female 04/12/2019 2:19 PM EST documented as of this encounter Progress Notes Pricila Curry, PT - 03/09/2018 9:30 AM EST Rehabilitation Services Physical Therapy [address] [facility], [address] [facility] [address] EVALUATION Molly Rios is [...] CITY-x-rays done, advised to strengthen/stretch R LE. 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 baseline ex program without increased pain Independent with pain management techniques Independent with home exercise program The patient will be seen by the PT/TENNIS PLAYER with support from the Picking Crew Supervisor 2 times/week for 12 weeks. Treatment Intervention: Therapeutic exercises Patient education Manual techniques Pricila Curry, PT 03/09/2018 9:34 AM I certify that Molly Schmidt Gabriel requires the stated services. Physician's Signature: Print Name: Date: Time: documented in this encounter Plan of Treatment Upcoming Encounters Date Type Specialty Care Team Description 11/30/2021 Office Visit Family Medicine Kevin Miranda MD [address] [facility] [place] [address] (Wo rk) documented as of this encounter Visit Diagnoses Diagnosis Chronic low back pain, unspecified back pain laterality, with sciatica presence unspecified - Primary documented in this encounter Care Teams Pump And Blower Operator Relationship Specialty Start Date End Date Laurie Elias NP PCP - General Family Medicine 03/02/1811/19/19 documented as of this encounter
--- OUTSIDE RECORDS SUMMARY | 2021-11-18 12:29 | XMS_ITS | Encounter Summary ---
:1945 Author Organization [facility] Address [address] [facility], [address] [place] [address] Care Team Providers Name Role Phone Laurie Elias NP Primary Care Provider Unavailable Encounter Details Date Type Department Care Team Description 03/06/2018 Telephone [facility] José Antonio ling MD Consultants 330 [facility], [address] [facility] [address] t, [facility] [address] [address] [phone] (Wo rk) Social History Tobacco Use Types [...] Family Medicine Kevin Miranda MD [facility] [place], [place] [address] (Wo rk) documented as of this encounter Visit Diagnoses Not on filedocumented in this encounter Care Teams Sales Facilitator Relationship Specialty Start Date End Date Laurie Elias NP PCP - General Family Medicine 03/02/1811/19/19 documented as of this encounter
--- OUTSIDE RECORDS SUMMARY | 2021-11-18 12:29 | XMS_ITS | Encounter Summary ---
:1945 Author Organization [facility] Address [address] [facility], [address] [place] [address] Care Team Providers Name Role Phone Laurie Elias ELECTROMYOGRAPHIC TECHNICIAN Primary Care Provider Unavailable Encounter Details [...] Visit Family Medicine Kevin Miranda MD [address] [place] [address] (Wo rk) documented as of this encounter Visit Diagnoses Not on filedocumented in this encounter Care Teams Community Health Program Coordinator Relationship Specialty Start Date End Date Laurie Elias NP PCP - General Family Medicine 03/02/1811/19/19 documented as of this encounter
--- OUTSIDE RECORDS SUMMARY | 2021-11-18 12:29 | XMS_ITS | Encounter Summary ---
:1945 Author Organization [facility] Address [address] [facility], [address] [place] [address] Care Team Providers Name Role Phone Laurie Elias NP Primary Care Provider Unavailable Encounter Details Date Type Department Care Team Description 03/29/2018 Telephone [facility] Laurie Brown NP [address] [place] [address] Social History Tobacco Use Types Packs/Day Years Used Date Former Smoker Smokeless Tobacco: Never Used Alcohol Use Standard Drinks/Week Comments Defer 0 (1 standard drink = 0.6 oz pure alcoho l) Sex Assigned at Date Recorded Female 04/12/2019 2:19 PM EST documented as of this encounter Miscellaneous Notes Telephone Encounter - Laurie Elias NP - 03/29/2018 12:44 PM EST TC to [facility]. Advised Dr. Gorman will return tomorrow. Regarding her symptoms, patient reports she did not experience any night sweats last night, so she is hopeful that she is improving. She preferredthat I consult with Dr. Gorman first before ordering a second CT scan, so will hold off on ordering this until her office visit tomorrow. She knows to seek emergent care with any worsening. documented in this encounter Plan of Treatment Upcoming Encounters Date Type Specialty Care Team Description 11/30/2021 Office Visit Family Medicine Kevin Miranda MD [address] [place], [place] [address] (Wo rk) documented as of this encounter Visit Diagnoses Not on filedocumented in this encounter Care Teams Title Manager Relationship Specialty Start Date End Date Laurie Elias NP PCP - General Family Medicine 03/02/1811/19/19 documented as of this encounter
--- OUTSIDE RECORDS SUMMARY | 2021-11-18 12:29 | XMS_ITS | Encounter Summary ---
:1945 Author Organization [facility] Address [address] [facility], [address] [place] [address] Care Team Providers Name Role Phone Laurie Elias SMOKE CONTROL SUPERVISOR Primary Care Provider Unavailable Encounter Details Date Type Department Care Team Description 03/15/2018 Travel Social History Tobacco Use Types Packs/Day [...] Visit Family Medicine Kevin Miranda MD [address] [place] [address] (Wo rk) documented as of this encounter Visit Diagnoses Not on filedocumented in this encounter Care Teams Lead Software Engineer Relationship Specialty Start Date End Date Laurie Elias NP PCP - General Family Medicine 03/02/1811/19/19 documented as of this encounter
--- OUTSIDE RECORDS SUMMARY | 2021-11-18 12:29 | XMS_ITS | Encounter Summary ---
:1945 Author Organization [facility] Address [address] [facility], [address] [place] [address] Care Team Providers Name Role Phone Laurie Elias VOICE NETWORK ENGINEER Primary Care Provider Unavailable Encounter Details [...] Visit Family Medicine Kevin Miranda MD [address] [place] [address] (Wo rk) documented as of this encounter Visit Diagnoses Not on filedocumented in this encounter Care Teams Mask Designer Relationship Specialty Start Date End Date Laurie Elias NP PCP - General Family Medicine 03/02/1811/19/19 documented as of this encounter
--- OUTSIDE RECORDS SUMMARY | 2021-11-18 12:29 | XMS_ITS | Encounter Summary ---
:1945 Author Organization [facility] Address 330 [facility], [address] [place] [address] Care Team Providers Name Role Phone Laurie Elias SALES TRAINEE Primary Care Provider Unavailable Encounter Details Date Type Department Care Team Description 04/06/2018 Telephone [facility] [place] zurita MD Consultants 330 [facility], [address] [facility] t, [facility] [address] [place], [place] [address] [place] [address] [phone] (Wo rk) Social History Tobacco Use Types [...] Visit Family Medicine Kevin Miranda MD [address] [place] [address] (Wo rk) documented as of this encounter Visit Diagnoses Not on filedocumented in this encounter Care Teams Felt Tipping Machine Tender Relationship Specialty Start Date End Date Laurie Elias, ANN PCP - General Family Medicine 03/02/1811/19/19 documented as of this encounter
--- OUTSIDE RECORDS SUMMARY | 2021-11-18 12:29 | XMS_ITS | Encounter Summary ---
:1945 Author Organization [facility] Address [address] [facility], [address] [place] [address] Care Team Providers Name Role Phone Laurie Elias ORACLE FUSION MIDDLEWARE ARCHITECT Primary Care Provider Unavailable Encounter Details [...] Visit Family Medicine Kevin Miranda MD [address] [place] [address] (Wo rk) documented as of this encounter Visit Diagnoses Not on filedocumented in this encounter Care Teams Printed Circuit Board Preassembler Relationship Specialty Start Date End Date Laurie Elias NP PCP - General Family Medicine 03/02/1811/19/19 documented as of this encounter
--- OUTSIDE RECORDS SUMMARY | 2021-11-18 12:29 | XMS_ITS | Encounter Summary ---
:1945 Author Organization [facility] Address [address] [facility], [address] [place] [address] Care Team Providers Name Role Phone Lisa Sotelo MD Primary Care Provider Reason for Referral Diagnostic Imaging (Routine) - Closed Specialty Diagnoses / Procedures Referred By Contact Refer red To Contact Radiology Diagnoses Osteopenia of neck of left femur Lisa Sotelo MD Procedures DEXA Bone Density [facility] [place] [address] Referral ID Status Reason Start Date Expiration Date Visits Requ ested Visits Authorized [id number] Closed 01/16/2018 01/16/2019 1 1 Reason for Visit Diagnostic Imaging (Routine) - Closed Specialty Diagnoses / Procedures Referred By Contact Refer red To Contact Radiology Diagnoses Osteopenia of neck of left femur Lisa Sotelo MD Procedures DEXA Bone Density [facility] [address] [place] [address] Referral ID Status Reason Start Date Expiration Date Visits Requ ested Visits Authorized [id number] Closed 01/16/2018 01/16/2019 1 1 Encounter Details Date Type Department Care Team Description 01/18/2018 [facility] Lisa Sotelo MD [address] [place] [id number] [place], [place] [phone] [id number] Social History Tobacco Use Types Packs/Day Years [...] Visit Family Medicine Kevin Miranda MD [address] [place], [place] [address] (Wo rk) documented as [...] sheets). Dictated: 01/18/2018 2:16 PM Report ID: [id number] Report signed in external system at 06/2017 14:16 Reported By: Ankit Richey M.D. (SCHJ 1) Signed By: Ankit Richey M.D. (SCHJ1) Narrative 01/18/2018 2:16 PM EST RESPONSIBLE REJECTED ITEMS CLERK: Ankit Richey M.D. EXAMINATION: DEXA BONE DENSITY CENTRAL CLINICAL INDICATION: Osteopenia. ??Postmenopausal female. TECHNIQUE: Dual Energy X-Ray Absorptiometry (DEXA t [employer]) was performed with measurements of the right [...] might be different from the original. RESPONSIBLE REJECTED ITEMS CLERK: Ankit Richey M.D. EXAMINATION: DEXA BONE DENSITY CENTRAL CLINICAL INDICATION: Osteopenia. Postmenopausal female. TECHNIQUE: Dual Energy X-Ray Absorptiometry ([facility] t [facility]) was performed with measurements of the right [...] sheets). Dictated: 01/18/2018 2:16 PM Report ID: [id number] Report signed in external system at 06/2017 14:16 Reported By: Ankit Richey M.D. (SCHJ 1) Signed By: Ankit Richey M.D. (SCHJ1) Lisa Sotelo MD IMG DXA PROCEDURES documented in this encounter Visit Diagnoses Diagnosis Osteopenia of neck of left femur documented in this encounter Care Teams Axle And Frame Mechanic Relationship Specialty Start Date End Date Lisa Sotelo MD PCP - General Family Medicine 08/19/16 03/01/18 [address] [place] [address] documented as of this encounter
--- OUTSIDE RECORDS SUMMARY | 2021-11-18 12:29 | XMS_ITS | Encounter Summary ---
:1945 Author Organization [facility] Address 330 [facility], [address] [place] [address] Care Team Providers Name Role Phone Laurie Elias ANN Primary Care Provider Unavailable Encounter Details Date Type Department Care Team Description 03/17/2018 Telephone [facility] [place] zurita MD Consultants 330 [facility], 300 [facility] t, [facility] [address] [place], [place] [address] [place] [address] [phone] (Wo rk) Social History Tobacco Use Types [...] Visit Family Medicine Kevin Miranda MD 1020 [facility] [place] [address] (Wo rk) documented as of this encounter Visit Diagnoses Not on filedocumented in this encounter Care Teams Truck Loader Overhead Crane Relationship Specialty Start Date End Date Laurie Elias NP PCP - General Family Medicine 03/02/1811/19/19 documented as of this encounter
--- OUTSIDE RECORDS SUMMARY | 2021-11-18 12:29 | XMS_ITS | Encounter Summary ---
:1945 Author Organization [facility] Address [address] [facility], [address] [place] [address] Care Team Providers Name Role Phone Laurie Elias NP Primary Care Provider Unavailable Encounter Details Date Type Department Care Team Description 03/30/2018 Office Visit [place] [facility], Diverticulitis of Gastrointestinal MD [place] large intestine [facility] 330 [facility] without perforation or 300 [facility], absce ss without Alber [address] bleeding (Primary Dx) [place] [address] [place], [place] [phone] Social History Tobacco Use Types Packs/Day Years [...] were not included. 04/02/18 Dallas Gorman M.D. safety scientist, [facility] Chief, Gastroenterology [facility] [address] [place] [address] FAX [phone] Email: [email or web address] 04/02/18 Re: [id number] Molly Rios Referring physician: Laurie Elias NP 10[address] [facility] [address] Molly Rios is a 73 y.o. female [...] Visit Family Medicine Kevin Miranda MD [address] [place], [place] [address] (Wo rk) documented as of this encounter Visit Diagnoses Diagnosis Diverticulitis of large intestine withou t perforation or abscess without bleeding - Primary documented in this encounter Care Teams Elementary Reading Specialist Relationship Specialty Start Date End Date Laurie Elias NP PCP - General Family Medicine 03/02/1811/19/19 documented as of this encounter
--- OUTSIDE RECORDS SUMMARY | 2021-11-18 12:29 | XMS_ITS | Encounter Summary ---
:1945 Author Organization [facility] Address 330 [facility], [address] [place] [address] Care Team Providers Name Role Phone Laurie Elias NP Primary Care Provider Unavailable Encounter Details Date Type Department Care Team Description 03/09/2018 Office Visit [place] Sherif, Diverticulitis large Gastrointestinal MD [place] intestine w/o Consultants 330 [facility] perforation or abscess 300 [facility], w/o arturo zamudio (Primary [address] Dx) [place], [place] [id number] [place] [address] Social History Tobacco Use Types Packs/Day Years [...] were not included. 03/12/18 [place] Gorman M.D. surfboard designer, [facility] Chief, Gastroenterology [facility] [address] [place] [address] FAX [phone] Email: [email or web address] 03/12/18 Re: [id number] Molly Rios Referring physician: Laurie Elias, ANN [address] [facility] [address] Molly Rios is a 73 y.o. female [...] Family Medicine Kevin Miranda MD [facility] [place], [place] [address] (Wo rk) documented as of this encounter Visit Diagnoses Diagnosis Diverticulitis large intestine w/o perfo ration or abscess w/o bleeding - Primary documented in this encounter Care Teams Drum Straightener Relationship Specialty Start Date End Date Laurie Elias NP PCP - General Family Medicine 03/02/1811/19/19 documented as of this encounter
--- OUTSIDE RECORDS SUMMARY | 2021-11-18 12:29 | XMS_ITS | Encounter Summary ---
:1945 Author Organization [facility] Address 330 [facility], [address] [place] [address] Care Team Providers Name Role Phone Laurie Elias PLASTER TENDER Primary Care Provider Unavailable Encounter Details Date Type Department Care Team Description 04/06/2018 Scan Document - View Trini Gómez in Chart Practice PLASTER TENDER [facility] [place] [address] Social History Tobacco Use Types Packs/Day Years [...] Visit Family Medicine Kevin Miranda MD [address] [place] [address] (Wo rk) documented as of this encounter Visit Diagnoses Not on filedocumented in this encounter Care Teams Wet Pour Supervisor Relationship Specialty Start Date End Date Laurie Elias NP PCP - General Family Medicine 03/02/1811/19/19 documented as of this encounter
--- OUTSIDE RECORDS SUMMARY | 2021-11-18 12:29 | XMS_ITS | Encounter Summary ---
:1945 Author Organization [facility] Address 330 [facility], [address] [place] [address] Care Team Providers Name Role Phone Laurie Elias NP Primary Care Provider Unavailable Encounter Details Date Type Department Care Team Description 03/09/2018 Orders Only Onida Sherif, Diverticulitis of Gastrointestinal MD [place] large intestine with Consultants 330 [facility] without 300 [facility], bleed ing (Primary Dx) [address] [place], [place] [phone] [place] [address] Social History Tobacco Use Types Packs/Day Years [...] Office Visit Family Medicine Kevin Miranda MD [address] [place] [address] (Wo rk) documented as of this encounter Results (ABNORMAL) CBC (03/09/2018 4:47 PM EST) P athologist Signature WBC 11.27 (H) 4.50 to 03/09/2018 [facility] 11.00 x 5:16 PM EST HOSPITAL 10*3u/L LABORATORY 10*3/uL nRBC 0 0 - 0 /100 03/09/2018 [facility] WBCs 5:16 PM [facility] LABORATORY RBC 4.35 3.90 to 03/09/2018 [facility] 5.03 x 5:16 PM [facility] 10*6/uL LABORATORY 10*6/uL HGB 13.6 12.0 to 03/09/2018 [facility] 16.0 g/dL 5:16 PM [facility] g/dL LABORATORY HCT 40.3 36.0% to 03/09/2018 [facility] 46.0% % 5:16 PM [facility] LABORATORY MCV 92.6 80.0 to 03/09/2018 [facility] 100.0 fL 5:16 PM [facility] fL LABORATORY MCH 31.3 26.0 - 03/09/2018 [facility] 33.0 pg 5:16 [facility] LABORATORY MCHC 33.7 31.0 to 03/09/2018 [facility] 37.0 g/dL 5:16 PM [facility] g/dL LABORATORY PLT 474 (H) 150 to 300 03/09/2018 [facility] x 10*3u/L 5:16 [facility] 10*3u/L LABORATORY RDW-CV 13.2 11.5 - 03/09/2018 [facility] 14.5 % 5:16 [facility] LABORATORY Specimen Anatomical Collection Method / Collection Time Recei nancy Time (Source) Location / Volume Laterality Blood Venous blood / Venipuncture / 03/09/2018 4:47 03/09/19 19 4:47 Unknown Unknown PM [facility] EST [place] Gorman MD LAB BLOOD ORDERABLES Performing Organization Address City/State/ZIP Code Phon e Number [facility] [address] [place] [address] LABORATORY documented in this encounter Visit Diagnoses Diagnosis Diverticulitis of large intestine with a bscess without bleeding - Primary documented in this encounter Care Teams Licensed Practical Nurse Instructor Relationship Specialty Start Date End Date Laurie Elias NP PCP - General Family Medicine 03/02/1811/19/19 documented as of this encounter
--- OUTSIDE RECORDS SUMMARY | 2021-11-18 12:29 | XMS_ITS | Encounter Summary ---
:1945 Author Organization [facility] Address 330 [facility], [address] [place] [address] Care Team Providers Name Role Phone JadaLaurie PIPELAYER Primary Care Provider Unavailable Encounter Details Date Type Department Care Team Description 03/03/2018 Telephone Family Practice Jason Veloz MD [address] [place] [address], [facility] te [address] [place] [address], [place] [address] 1A [phone] [place], [place] [address] (Wo rk) Social History [...] Visit Family Medicine Kevin Miranda MD [address] [facility] [place] [address] (Wo rk) documented as of this encounter Visit Diagnoses Not on filedocumented in this encounter Care Teams Fishing Captain Relationship Specialty Start Date End Date Laurie Elias NP PCP - General Family Medicine 03/02/1811/19/19 documented as of this encounter
--- OUTSIDE RECORDS SUMMARY | 2021-11-18 12:29 | XMS_ITS | Encounter Summary ---
:1945 Author Organization [facility] Address 330 [facility], [address] [place] [address] Care Team Providers Name Role Phone Lisa [...] Office Visit Family Medicine Kevin Miranda MD [facility] [place], [place] [address] (Wo rk) documented as of this encounter Visit Diagnoses Not on filedocumented in this encounter Care Teams Care Advocate Relationship Specialty Start Date End Date Lisa Sotelo MD PCP - General Family Medicine 08/19/16 03/01/[address] [place] [address] documented as of this encounter
--- OUTSIDE RECORDS SUMMARY | 2021-11-18 12:29 | XMS_ITS | Encounter Summary ---
:1945 Author Organization [facility] Address 330 [facility], [address] [place] [address] Care Team Providers Name Role Phone Laurie Elias NP Primary Care Provider Unavailable Reason for Visit Reason Comments Fever Encounter Details Date Type Department Care Team Description 03/24/2018 Office Visit Mary Gómez, uns pecified Practice ANN Sullivan fever cause (Primary [address] Dx) [place] [address] Social History Tobacco Use Types Packs/Day Years [...] Visit Family Medicine Kevin Miranda MD [address] [place], [place] [address] (Wo rk) Scheduled Orders [...] (03/24/2018 4:14 PM EST) Analysis Performed At [facility] Urine Culture [facility] Comment: ??CULTURE, URINE, ROUTINE ?MICRO NUMBER: ?[id number] ??TEST STATUS: ? FINAL ??SPECIMEN SOURCE: ?? URINE, CLEAN CATC H ??SPECIMEN QUALITY: ??ADEQUATE ??RESULT: ?No Growth Specimen Anatomical Collection Method Collection Time Receive d Time (Source) Location / / Volume Laterality 03/24/2018 4:14 PM 9 4:14 EST PM EST Laurie Elias NP LAB MICROBIOLOGY - GENERAL O RDERABLES Performing Organization Address [facility] Phon e Number [employer] [address] [facility] [address] [place] [address] [facility] [address] [phone] Diagnost (ABNORMAL) CBC (03/24/2018 4:14 PM EST) [facility] Method Time Signature White Blood 11.6 (H) 3.8 - [facility] Count 10.8 [place] [facility] uL [facility] Red Blood 4.19 3.80 - [facility] Count 5.10 [place] [facility] L [facility] Hemoglobin 12.9 11.7 - [facility] 15.5 g/dL [place] [facility] Hematocrit 37.5 35.0 - [facility] 45.0 % [place] [facility] MCV 89.5 80.0 - [facility] 100.0 fL [place] [facility] MCH 30.8 27.0 - [facility] 33.0 pg [place] [facility] MCHC 34.4 32.0 - [facility] 36.0 g/dL [place] [facility] MRDW 12.6 11.0 - [facility] 15.0 % [place] [facility] Platelet count 509 (H) 140 - 400 [facility]/ [place] [facility]L [facility] MPV 9.5 7.5 - [facility] 12.5 fL [place] [facility] Specimen Anatomical Collection Method Collection Time Receive d Time (Source) Location / / Volume Laterality Blood Venous blood / 03/24/2018 4:14 PM 019 4:14 Unknown EST PM EST Laurie Elias NP LAB BLOOD ORDERABLES Performing Organization Address [facility] Phon e Number [employer] [address] [phone] [place] [address], [address] [facility] [address] [facility], [facility], [facility] [address] [phone] Diagnost documented in this encounter Visit Diagnoses Diagnosis Fever, unspecified fever cause - Primary documented in this encounter Care Teams Pharmacy Customer Care Specialist Relationship Specialty Start Date End Date Laurie Elias NP PCP - General Family Medicine 03/02/1811/19/19 documented as of this encounter
--- OUTSIDE RECORDS SUMMARY | 2021-11-18 12:29 | XMS_ITS | Encounter Summary ---
:1945 Author Organization [facility] Address 330 [facility], [address] [place] [address] Care Team Providers Name Role Phone Laurie Elias ROUTE JUMPER Primary Care Provider Unavailable Encounter Details Date [...] Visit Family Medicine Kevin Miranda MD [address] [place] [address] (Wo rk) documented as of this encounter Visit Diagnoses Not on filedocumented in this encounter Care Teams Blast Furnace Tender Relationship Specialty Start Date End Date Laurie Elias NP PCP - General Family Medicine 03/02/1811/19/19 documented as of this encounter
--- OUTSIDE RECORDS SUMMARY | 2021-11-18 12:29 | XMS_ITS | Encounter Summary ---
:1945 Author Organization [facility] Address 330 [facility], [address] [place] [address] Care Team Providers Name Role Phone Laurie Elias NP Primary Care Provider Unavailable Encounter Details Date Type Department Care Team Description 03/10/2018 Telephone [facility] Laurie Brown NP [address] [place], [place] [phone] Social History Tobacco Use Types Packs/Day Years [...] fever at night. As such, she contacted [facility] to be seen. Due to the low-grade [...] Visit Family Medicine Kevin Miranda MD [address] [place] [address] (Wo rk) documented as of this encounter Visit Diagnoses Not on filedocumented in this encounter Care Teams Machine Maintenance Servicer Relationship Specialty Start Date End Date Laurie Elias NP PCP - General Family Medicine 03/02/1811/19/19 documented as of this encounter
--- OUTSIDE RECORDS SUMMARY | 2021-11-18 12:29 | XMS_ITS | Encounter Summary ---
:1945 Author Organization [facility] Address 330 [facility], [address] [place] [address] Care Team Providers Name Role Phone Laurie Elias NP Primary Care Provider Unavailable Encounter Details Date Type Department Care Team Description 03/21/2018 Telephone [place] [facility] Rola phillips [facility] 330 [facility], [address] [facility] [address], [address] [place], [place] [address] [place] [address] [phone] (Wo rk) Social History Tobacco Use Types [...] Visit Family Medicine Kevin Miranda MD [address] [place], [place] [address] (Wo rk) documented as of this encounter Visit Diagnoses Not on filedocumented in this encounter Care Teams Assistant Chief Nursing Officer Relationship Specialty Start Date End Date Laurie Elias NP PCP - General Family Medicine 03/02/1811/19/19 documented as of this encounter
--- OUTSIDE RECORDS SUMMARY | 2021-11-18 12:29 | XMS_ITS | Encounter Summary ---
:1945 Author Organization [facility] Address 330 [facility], [address] [place] [address] Care Team Providers Name Role Phone JadaHeatherLaurie ACCREDITATION SPECIALIST Primary Care Provider Unavailable Encounter Details Date Type Department Care Team Description 03/29/2018 Rehab [facility] Physical Se lázaro Jason MD [address] [place] [address] Chronic low back pain, Therapy Pricila Curry, PT unspecified back pain [address] [facility], [facility], with [address] [place] [address] unspecified (Primary Dx) [phone] Social History Tobacco Use Types Packs/Day Years Used Date Former Smoker Smokeless Tobacco: Never Used Alcohol Use Standard Drinks/Week Comments Defer 0 (1 standard drink = 0.6 oz pure alcoho l) Sex Assigned at Date Recorded Female 04/12/2019 2:19 PM EST documented as of this encounter Progress Notes Pricila Curry, PT - 03/29/2018 12:30 PM EST Rehabilitation [facility] Physical Therapy [address] [facility], [address] [facility] [address] PROGRESS NOTE visit 4 ALBERT Rios [...] Visit Family Medicine Kevin Miranda MD [address] [place], [place] [address] (Wo rk) documented as of this encounter Visit Diagnoses Diagnosis Chronic low back pain, unspecified back pain laterality, with sciatica presence unspecified - Primary documented in this encounter Care Teams [place] Laborer Relationship Specialty Start Date End Date Laurie Elias NP PCP - General Family Medicine 03/02/1811/19/19 documented as of this encounter
--- OUTSIDE RECORDS SUMMARY | 2021-11-18 12:29 | XMS_ITS | Encounter Summary ---
:1945 Author Organization [facility] Address 330 [facility], [address] [place] [address] Care Team Providers Name Role Phone Laurie Elias NP Primary Care Provider Unavailable Encounter Details Date Type Department Care Team Description 03/24/2018 Telephone [place] [facility] Rola phillips [facility] 330 [facility], [address] [facility] [address], [address] [place], [place] [address] [place] [address] [phone] (Wo rk) Social History Tobacco Use Types [...] Visit Family Medicine Kevin Miranda MD [address] [place], [place] [address] (Wo rk) documented as of this encounter Visit Diagnoses Not on filedocumented in this encounter Care Teams Desolderer Relationship Specialty Start Date End Date Laurie Elias NP PCP - General Family Medicine 03/02/1811/19/19 documented as of this encounter
--- OUTSIDE RECORDS SUMMARY | 2021-11-18 12:30 | XMS_ITS | Encounter Summary ---
:1945 Author Organization [facility] Address 330 [facility] [place], [address] [place] [address] Care Team Providers Name Role Phone Lisa Sotelo MD Primary Care Provider Reason for Referral Diagnostic Imaging (Routine) - Closed Specialty Diagnoses / Procedures Referred By Contact Refer red To Contact Diagnoses Chronic pain of left knee Nawaf Jason MD Procedures X-ray Knee 3 Views Left [address] [place] [address] Referral ID Status Reason Start Date Expiration Date Visits Requ ested Visits Authorized [id number] Closed 06/13/2017 06/13/2018 1 1 Reason for Visit Diagnostic Imaging (Routine) - Closed Specialty Diagnoses / Procedures Referred By Contact Refer red To Contact Diagnoses Chronic pain of left knee Nawaf Jason MD Procedures X-ray Knee 3 Views Left [address] [place] [address] Referral ID Status Reason Start Date Expiration Date Visits Requ ested Visits Authorized [id number] Closed 06/13/2017 06/13/2018 1 1 Encounter Details Date Type Department Care Team Description 06/20/2017 Hospital Encounter [facility] Tolu Jason ed A, X-ray at [address] [address] [phone] (Wo rk) [address] [phone] Social History Tobacco Use Types Packs/Day Years [...] Visit Family Medicine Kevin Miranda MD [address] [place], [place] [address] (Wo rk) documented as [...] change. Dictated: 06/20/2017 4:16 PM Report ID: [id number] Report signed in external system at 06/20 16:16 Reported By: Wale Faustin M.D. (TAMICA P) Signed By: Wale Faustin M.D. (JACQUELINE) Narrative 06/20/2017 4:16 PM EDT RESPONSIBLE DESTINATION IMAGINATION COORDINATOR: Wale Faustin M.D. EXAMINATION: XR KNEE [...] might be different from the original. RESPONSIBLE DESTINATION IMAGINATION COORDINATOR: Wale Faustin M.D. EXAMINATION: XR KNEE [...] change. Dictated: 06/20/2017 4:16 PM Report ID: [id number] Report signed in external system at 06/20 16:16 Reported By: Wale Faustin M.D. (TAMICA P) Signed By: Wale Faustin M.D. (JACQUELINE) Nawaf Jason MD IMG XR PROCEDURES documented in this encounter Visit Diagnoses Diagnosis Chronic pain of left knee documented in this encounter Care Teams Cast Iron Drain Pipe Layer Relationship Specialty Start Date End Date Lisa Sotelo MD PCP - General Family Medicine 08/19/16 03/01/18 [address] [place] [address] documented as of this encounter
--- OUTSIDE RECORDS SUMMARY | 2021-11-18 12:30 | XMS_ITS | Encounter Summary ---
:1945 Author Organization [facility] Address 330 [facility], [address] [place] [address] Care Team Providers Name Role Phone Lisa Sotelo MD Primary Care Provider Encounter Details Date Type Department Care Team Description 06/27/2017 Scan Document - View [facility] Lisa Sotelo, in Chart Practice [address] [place], [place] [address] [place], [place] [phone] Social History Tobacco Use Types Packs/Day Years [...] Visit Family Medicine Kevin Miranda MD [address] [place] [address] (Wo rk) documented as of this encounter Visit Diagnoses Not on filedocumented in this encounter Care Teams B2B Sales Executive Relationship Specialty Start Date End Date Lisa Sotelo MD PCP - General Family Medicine 08/19/16 03/01/[address] [place] [address] documented as of this encounter
--- OUTSIDE RECORDS SUMMARY | 2021-11-18 12:30 | XMS_ITS | Encounter Summary ---
:1945 Author Organization [facility] Address 330 [facility], [address] [place] [address] Care Team Providers Name Role Phone Lisa Sotelo MD Primary Care Provider Encounter Details Date Type Department Care Team Description 09/21/2016 Office Visit Kaushik [place], Left hip p ain (Primary Practice ANN Krishnamurthy Dx) [address] [place] [address] [place], [place] [phone] Social History Tobacco Use Types Packs/Day Years [...] Dr. Cristo Levy [place] [facility] [place], which went well, and she [...] Visit Family Medicine Kevin Miranda MD [address] [place] [address] (Wo rk) documented as of this encounter Visit Diagnoses Diagnosis Left hip pain - Primary Pain in joint, pelvic region and thigh documented in this encounter Care Teams Client Technical Professional Relationship Specialty Start Date End Date Lisa Sotelo MD PCP - General Family Medicine 08/19/16 03/01/18 10[address] [place] [address] documented as of this encounter
--- OUTSIDE RECORDS SUMMARY | 2021-11-18 12:30 | XMS_ITS | Encounter Summary ---
:1945 Author Organization [facility] Address 330 [facility], [address] [place] [address] Care Team Providers Name Role Phone Lisa Sotelo MD Primary Care Provider Encounter Details Date Type Department Care Team Description 11/01/2017 [facility], [facility] const[facility] type (Primary Dx); Practice ANN Krishnamurthy Diverticulosis of large intestine withou t hemorrhage [address] [place] [address] [place], [place] [phone] Social History Tobacco Use Types Packs/Day Years [...] Visit Family Medicine Kevin Miranda MD [address] [place], [place] [address] (Wo rk) documented as of this encounter Visit Diagnoses Diagnosis Constipation, unspecified constipation t ype - Primary Diverticulosis of large intestine withou t hemorrhage documented in this encounter Care Teams Bottle Packing Machine Cleaner Relationship Specialty Start Date End Date Lisa Sotelo MD PCP - General Family Medicine 08/19/16 03/01/18 [address] [place] [address] documented as of this encounter
--- OUTSIDE RECORDS SUMMARY | 2021-11-18 12:30 | XMS_ITS | Encounter Summary ---
:1945 Author Organization [employer] Address [address] [facility], [address] [place] [address] Care Team Providers Name Role Phone Lisa Sotelo MD Primary Care Provider Reason for Visit Reason Comments Sinusitis fever 101 last night Encounter Details Date Type Department Care Team Description 12/26/2017 Office Visit [facility] Lisa Sotelo Diverti culitis (Primary Practice MD Dx) [address] [place] [address] [place], [place] [phone] Social History Tobacco Use Types Packs/Day Years [...] Visit Family Medicine Kevin Miranda MD [address] [place], [place] [address] (Wo rk) Scheduled Orders [...] Differential and Platelets) (12/26/2017 3:56 PM EST) [facility] gist Method Time Signature White Blood 13.0 (H) 3.8 - [facility] Count 10.8 Diagnostics Thousand/ [place] [facility] Red Blood Count 4.18 3.80 - [facility] 5.10 Diagnostics Million/u [place] [facility] Hemoglobin 13.2 11.7 - [facility] 15.5 g/dL [facility] [place] [facility] Hematocrit 37.9 35.0 - [facility] 45.0 % [facility] [place] [facility] MCV 90.7 80.0 - [facility] 100.0 fL [facility] [place] [facility] MCH 31.6 27.0 - [facility] 33.0 pg [facility] [place] [facility] MCHC 34.8 32.0 - [facility] 36.0 g/dL [facility] [place] [facility] MRDW 12.7 11.0 - [facility] 15.0 % [facility] [place] [facility] Platelet count 325 140 - 400 [facility] Thousand/ [facility] u[facility] [place] [facility] MPV 10.5 7.5 - [facility] 12.5 fL [facility] [place] [facility] Absolute 10,127 1,500 - [facility] Neutrophil (H) 7,800 Diagnostics Count cells/uL [place] [facility] Lymphosytes 1,404 850 - [facility] absolute 3,900 Diagnostics cells/uL [place] [facility] Absolute 1,404 (H) 200 - 950 [facility] Monocyte count cells/uL [facility] [place] [facility] Absolute 26 15 - 500 [facility] Eosinophil cells/uL Diagnostics count [place] [facility] Lymphocyte 39 0 - 200 [facility] cells/uL [facility] [place] [facility] Neutrophils 77.9 % [facility] [place] [facility] Lymphocyte 10.8 % [facility] [place] [facility] Monocytes 10.8 % [facility] [place] [facility] Eosinophil 0.2 % [facility] [place] [facility] Basophil 0.3 % [facility] [place] [facility] Specimen Anatomical Collection Method Collection Time Receive d Time (Source) Location / / Volume Laterality 12/26/2017 3:56 PM 8 3:56 EST PM EST Lisa Sotelo MD LAB BLOOD ORDERABLES Performing Organization Address City/State/ZIP Code Phon e Number [facility] [address] [phone] [place] [address] B [facility] [address] [place] [address] [employer] [address] [phone] Diagnost (ABNORMAL) Basic metabolic panel (12/26/2017 3:56 PM EST) athologist Signature Glucose 104 (H) 65 - 99 [email or web address] Diagn[facility] mg/dL [place] [employer] Diagnost Comment: ? Fasting reference interv al For someone without known diabetes, a gl ucose value between 100 and 125 mg/dL is consistent with prediabetes and should be confirmed with a follow-up test. Bun 9 7 - 25 mg/dL [facility] [place] [employer] Diagnost Creatinine, Ser 0.67 0.60 - 0.93 mg/dL [facility] [place] [email or web address] Diagnost Comment: For patients >49 years of age, the refer ence limit for Creatinine is approximately 13% high er for people identified as -Montserratian. eGFR NON-AFR. 89 > OR = 60 mL/min/1.73m2 Qu est Diagnostics [facility] Diagn[facility] eGFR 103 > OR = 60 mL/min/1.73m2 Que st Diagnostics [facility] BUN/Creatinine NOT APPLICABLE 6 - 22 (calc) [facility] [place] [facility] Sodium 137 135 - 146 mmol/L [facility] [place] [facility] Potassium 4.0 3.5 - 5.3 mmol/L [facility] [place] [facility] Chloride 98 98 - 110 mmol/L [facility] [place] [facility] CO2 29 20 - 32 mmol/L [facility] Calcium 9.2 8.6 - 10.4 mg/dL [facility] [place] [facility] Specimen Anatomical Collection Method Collection Time Receive d Time (Source) Location / / Volume Laterality Blood Venous blood / 12/26/2017 3:56 PM 018 3:56 Unknown EST PM EST Lisa Sotelo MD LAB BLOOD ORDERABLES Performing Organization Address City/State/ZIP Code Phon e Number [facility] [address] [phone] [place] [address], [address] [employer] [address] [place] [address] [email or web address] [address] [id number] Diagnost documented in this encounter Visit Diagnoses Diagnosis Diverticulitis - Primary Diverticulitis of colon (without mention of hemorrhage) documented in this encounter Care Teams Signal Operator Relationship Specialty Start Date End Date Lisa Sotelo MD PCP - General Family Medicine 08/19/16 03/01/[address] [place] [address] documented as of this encounter
--- OUTSIDE RECORDS SUMMARY | 2021-11-18 12:30 | XMS_ITS | Encounter Summary ---
:1945 Author Organization [facility] Address [address] [facility], [address] [place] [address] Care Team Providers Name Role Phone Elba Mariano MD Primary Care Provider Reason for Visit Reason Comments Test Follow-up Encounter Details Date Type Department Care Team Description 12/06/2016 Office Visit Elba Newton, Chronic obstructive pulmonary disease, unspecified COPD type (CMS/HCC) (Primary Dx); Practice MD Sleep disorder; [address]xiety; [place] [address] [place] Other emphysema ([facility]) [phone] Social History Tobacco Use Types Packs/Day Years [...] Visit Family Medicine Kevin Miranda MD [address] [place], [place] [address] (Wo rk) documented as of this encounter Visit Diagnoses Diagnosis Chronic obstructive pulmonary disease, u nspecified COPD type ([facility]) - Primary Sleep disorder Unspecified sleep disturbance Anxiety Anxiety state, unspecified Other emphysema ([facility]) Other emphysema documented in this encounter Care Teams Car Salesman Relationship Specialty Start Date End Date Elba Mariano MD PCP - General Family Medicine 08/19/16 03/01/18 [address] [place] [address] documented as of this encounter
--- OUTSIDE RECORDS SUMMARY | 2021-11-18 12:30 | XMS_ITS | Encounter Summary ---
:1945 Author Organization [facility] Address [address] [facility], [address] [place] [address] Care Team Providers Name Role Phone Lisa Sotelo MD Primary Care Provider Reason for Referral Diagnostic Imaging (Routine) - Closed Specialty Diagnoses / Procedures Referred By Contact Refer red To Contact Diagnoses Right hip pain Right groin pain Yasmine Shaw MD Procedures X-ray Hip 2-3 Views Right (Pelvis Optional) [employer] [address] [address] Referral ID Status Reason Start Date Expiration Date Visits Requ ested Visits Authorized [id number] Closed 07/22/2017 07/22/2018 1 1 Reason for Visit Diagnostic Imaging (Routine) - Closed Specialty Diagnoses / Procedures Referred By Contact Refer red To Contact Diagnoses Right hip pain Right groin pain Yasmine Shaw MD Procedures X-ray Hip 2-3 Views Right (Pelvis Optional) [facility] [employer] [facility] [address] [email or web address] [address] [place] [address] Referral ID Status Reason Start Date Expiration Date Visits Requ ested Visits Authorized [id number] Closed 07/22/2017 07/22/2018 1 1 Encounter Details Date Type Department Care Team Description 07/22/2017 Hospital Encounter [facility] Yasmine Shaw MD X-ray at [address] [place] [address] and F[facility] [address] [place], [place] [address], [address] [address] [phone] [place], [place] [address] (Li ni) Social History [...] Visit Family Medicine Kevin Miranda MD [address] [place] [address] (Li ni) documented as of [...] change. Dictated: 07/22/2017 10:45 AM Report ID: [id number] Report signed in external system at 07/22 10:45 Reported By: Wale Faustin M.D. (TAMICA P) Signed By: Wale Faustin M.D. (TAMICAP) Narrative 07/22/2017 10:45 AM EDT RESPONSIBLE APPEALS COORDINATOR: Wale Faustin M.D. EXAMINATION: XR HIP 2-3 [...] might be different from the original. RESPONSIBLE APPEALS COORDINATOR: Wale Faustin M.D. EXAMINATION: XR HIP 2-3 [...] change. Dictated: 07/22/2017 10:45 AM Report ID: [id number] Report signed in external system at 07/22 10:45 Reported By: Wale Faustin M.D. (TAMICA P) Signed By: Wale Faustin M.D. (JACQUELINE) Yasmine Shaw MD IMG XR PROCEDURES documented in this encounter Visit Diagnoses Diagnosis Right hip pain Pain in joint, pelvic region and thigh Right groin pain Abdominal pain, right lower quadrant documented in this encounter Care Teams Manager Msw Relationship Specialty Start Date End Date Lisa Sotelo MD PCP - General Family Medicine 08/19/16 03/01/18 [address] [place] [address] documented as of this encounter
--- OUTSIDE RECORDS SUMMARY | 2021-11-18 12:30 | XMS_ITS | Encounter Summary ---
:1945 Author Organization [facility] Address [address] [facility], [address] [place] [address] Care Team Providers Name Role Phone Lisa [...] Office Visit Family Medicine Kevin Miranda MD [facility] [place], [place] [address] (Wo rk) documented as of this encounter Visit Diagnoses Not on filedocumented in this encounter Care Teams Hose Finisher Relationship Specialty Start Date End Date Lisa Sotelo MD PCP - General Family Medicine 08/19/16 03/01/[address] [place] [address] documented as of this encounter
--- OUTSIDE RECORDS SUMMARY | 2021-11-18 12:30 | XMS_ITS | Encounter Summary ---
:1945 Author Organization [facility] Address [address] [facility], [address] [place] [address] Care Team Providers Name Role Phone Lisa Sotelo MD Primary Care Provider Reason for Referral (Routine) - Closed Specialty Diagnoses / Procedures Referred By Contact Refer red To Contact Diagnoses COPD (chronic obstructive pulmonary disease) ([facility]) Lisa Sotelo MD Procedures Pulmonary function test [address] [place] [address] Referral ID Status Reason Start Date Expiration Date Visits Requ ested Visits Authorized [id number] Closed 08/18/2016 02/14/2017 1 1 Reason for Visit (Routine) - Closed Specialty Diagnoses / Procedures Referred By Contact Refer red To Contact Diagnoses COPD (chronic obstructive pulmonary disease) ([facility]) Lisa Sotelo MD Procedures Pulmonary function test [address] [place] [address] Referral ID Status Reason Start Date Expiration Date Visits Requ ested Visits Authorized [id number] Closed 08/18/2016 02/14/2017 1 1 Encounter Details Date Type Department Care Team Description 11/23/2016 Hospital Encounter [facility] Lisa Monroe MD Function [address] [place] [phone] Social History Tobacco Use Types Packs/Day [...] Visit Family Medicine Kevin Miranda MD [address] [place], [place] [address] (Wo rk) documented as of this encounter Procedures Procedure Name Priority Date/Time Associated Comments Diagnosis FULL PFT WITH Routine 11/23/2016 10:42 COPD (chronic Results f or this BRONCHODILATORS AM EDT obstructive procedure ar e in pulmonary disease) the resul ts ([facility]) section. documented in this encounter Results FULL PFT WITH BRONCHODILATORS (11/23/2016 10:42 AM EDT) Specimen (Source) Anatomical Collection Method Collection Time Re ceived Time Location / / Volume Laterality 11/23/2016 9:56 AM EDT [facility] - 12/07/2016 2:27 PM EDT [...] Organization Address City/State/ZIP Code Phon e Number [facility] [address] [place] [address] documented in this encounter Visit Diagnoses Diagnosis COPD (chronic obstructive pulmonary dise ase) ([facility]) Chronic airway obstruction, not elsewher e classified documented in this encounter Care Teams Pulpit Operator Relationship Specialty Start Date End Date Lisa Sotelo MD PCP - General Family Medicine 08/19/16 03/01/18 [address] [facility] [place] [address] documented as of this encounter
--- OUTSIDE RECORDS SUMMARY | 2021-11-18 12:30 | XMS_ITS | Encounter Summary ---
:1945 Author Organization [facility] Address [address] [facility], [address] [place] [address] Care Team Providers Name Role Phone Lisa Sotelo MD Primary Care Provider Reason for Visit Reason Comments Abdominal Pain Encounter Details Date Type Department Care Team Description 08/28/2016 Emergency [place] [facility] Alphonso Badillo MD Department [address] [place] [address] e[address] [place], [place] [id number] [place] [address] [phone] Social History Tobacco Use Types Packs/Day Years [...] evaluated and treated primarily by the Physician Regulatory Attorney (PA). The supervising Attending Physician did see [...] right for you. Copyright Copyright ?? 2016 Andre Phillipe. and its affiliates and/or licensors. All rights [...] post ORIF of the left clavicle fracture [facility]. She is Dilaudid for the first 2 [...] 2016, 1:30 PM Alphonso Morton MD 08/28/16 7657 Alphonso Morton MD - 08/28/2016 1:04 PM EDT I have reviewed the patient's clinical presentation, history, and examination. In addition, I have interviewed and examined the patient. I agree with the PA's history and exam except as noted. I supervised the decision making process, including orders and disposition. MD Alphonso Rosa MD 08/28/16 8343 Helen Duenas RN - 08/28/2016 1:03 PM [...] clavicle on 08/24/[address] Levy at [facility]. She states that this surgery was without [...] interpretation. Dictated: 08/28/2016 11:59 AM Report ID: [id number] Report signed in external system at 08/28/2016 [...] following orders were created for panel order [place] draw. Procedure Abnormality Status --------- ------ Gold Top[[id number]] Gold Top[[id number]] Light Blue Top[[id number]] Final result Lavender Top[[id number]] Red Top[[id number]] Please view results for these tests on [...] reach the coverage for patient's surgeon at [facility] [place]. I spoke with this individual who states [...] home. Continue MiraLAX. Dulcolax suppository once daily. [id number] analgesia for pain, avoid opioid medications to [...] Medicine Kevin Miranda MD [facility] [place], [place] [address] (Wo rk) documented as [...] (08/28/2016 11:35 AM EDT) Analysis Performed At [facility] Time Signature URINE No 08/28/2016 [facility] SEDIMENTATION 12:27 PM HOSPITAL REQUIRED? EDT LABORATORY Color Light 08/28/2016 [facility] Yellow 12:27 PM HOSPITAL EDT LABORATORY SG 1.002 1.002 - 08/28/2016 [facility] 1.030 12:27 PM HOSPITAL EDT LABORATORY pH, Urine 7.0 5.0 - 8.0 08/28/2016 [facility] 12:27 PM HOSPITAL EDT LABORATORY Albumin Negative 08/28/2016 [facility] 12:27 PM HOSPITAL EDT LABORATORY Glucose Negative Negative 08/28/2016 [facility] 12:27 PM HOSPITAL EDT LABORATORY Ketones Negative Negative 08/28/2016 [facility] 12:27 PM HOSPITAL EDT LABORATORY Blood Negative Negative 08/28/2016 [facility] 12:27 PM HOSPITAL EDT LABORATORY Nitrite Negative Negative 08/28/2016 [facility] 12:27 PM HOSPITAL EDT LABORATORY Hyaline Casts 0 - 5 /LPF LAB 08/28/2016 [facility] URINALYSIS - 12:27 PM HOSPITAL AUTOMATED EDT LABORATORY METHOD Granular Casts 0 - 2 /LPF LAB 08/28/2016 [facility] URINALYSIS - 12:27 PM HOSPITAL AUTOMATED EDT LABORATORY METHOD WBC CASTS None Seen LAB 08/28/2016 [facility] /[facility] URINALYSIS - 12:27 PM HOSPITAL AUTOMATED EDT LABORATORY METHOD RBC Casts None Seen LAB 08/28/2016 [facility] /[facility] URINALYSIS - 12:27 PM HOSPITAL AUTOMATED EDT LABORATORY METHOD Waxy Casts, None Seen LAB 08/28/2016 [facility] Urine /[facility] URINALYSIS - 12:27 PM HOSPITAL AUTOMATED EDT LABORATORY METHOD Fatty Casts None Seen LAB 08/28/2016 [facility] /[facility] URINALYSIS - 12:27 PM HOSPITAL AUTOMATED EDT LABORATORY METHOD WBC Clumps None Seen LAB 08/28/2016 [facility] /[facility] URINALYSIS - 12:27 PM HOSPITAL AUTOMATED EDT LABORATORY METHOD EPITH CELLS 0 - 5 /HPF LAB 08/28/2016 [facility] URINALYSIS - 12:27 PM HOSPITAL AUTOMATED EDT LABORATORY METHOD Renal Cells None Seen LAB 08/28/2016 [facility] /[facility] URINALYSIS - 12:27 PM HOSPITAL AUTOMATED EDT LABORATORY METHOD Amorphous None Seen LAB 08/28/2016 [facility] /[facility] URINALYSIS - 12:27 PM HOSPITAL AUTOMATED EDT LABORATORY METHOD Uric Acid None Seen LAB 08/28/2016 [facility] URINALYSIS - 12:27 PM HOSPITAL AUTOMATED EDT LABORATORY METHOD Calcium Oxalate None Seen LAB 08/28/2016 [facility] Crystals /[facility] URINALYSIS - 12:27 PM HOSPITAL AUTOMATED EDT LABORATORY METHOD Triple Phosphate None Seen LAB 08/28/2016 [facility] Crystals /HPF URINALYSIS - 12:27 PM HOSPITAL AUTOMATED EDT LABORATORY METHOD Calcium None Seen LAB 08/28/2016 [facility] Carbonate /[facility] URINALYSIS - 12:27 PM HOSPITAL Crystals AUTOMATED EDT LABORATORY METHOD Calcium None Seen LAB 08/28/2016 [facility] Phosphate /[facility] URINALYSIS - 12:27 PM HOSPITAL Crystals AUTOMATED EDT LABORATORY METHOD Cystine None Seen LAB 08/28/2016 [facility] URINALYSIS - 12:27 PM HOSPITAL AUTOMATED EDT LABORATORY METHOD Leucine None Seen LAB 08/28/2016 [facility] /[facility] URINALYSIS - 12:27 PM HOSPITAL AUTOMATED EDT LABORATORY METHOD Tyrosine None Seen LAB 08/28/2016 [facility] /[facility] URINALYSIS - 12:27 PM HOSPITAL AUTOMATED EDT LABORATORY METHOD Mucous None Seen LAB 08/28/2016 [facility] /[facility] URINALYSIS - 12:27 PM HOSPITAL AUTOMATED EDT LABORATORY METHOD Yeast Budding None Seen LAB 08/28/2016 [facility] /[facility] URINALYSIS - 12:27 PM HOSPITAL AUTOMATED EDT LABORATORY METHOD Yeast Hyphae None Seen LAB 08/28/2016 [facility] /[facility] URINALYSIS - 12:27 PM HOSPITAL AUTOMATED EDT LABORATORY METHOD Trichomonas None Seen LAB 08/28/2016 [facility] /[facility] URINALYSIS - 12:27 PM HOSPITAL AUTOMATED EDT LABORATORY METHOD WBC esterase Negative 08/28/2016 [facility] 12:27 PM HOSPITAL EDT LABORATORY TURBIDITY Clear CLEAR 08/28/2016 [facility] 12:27 PM HOSPITAL EDT LABORATORY WBC 0 - 5 /HPF LAB 08/28/2016 [facility] URINALYSIS - 12:27 PM [facility]OSPITAL AUTOMATED EDT LABORATORY METHOD RBC 0 - 5 /HPF LAB 08/28/2016 [facility] URINALYSIS - 12:27 PM HOSPITAL AUTOMATED EDT LABORATORY METHOD Unidentified None Seen LAB 08/28/2016 [facility] Crystals URINALYSIS - 12:27 PM HOSPITAL AUTOMATED EDT LABORATORY METHOD Bile Negative 08/28/2016 [facility] 12:27 PM HOSPITAL EDT LABORATORY Specimen Anatomical Collection Method Collection Time Receive d Time (Source) Location / / Volume Laterality Urine Urine specimen Non-blood 08/28/2016 11:35 7 collection, clean Collection / AM EDT 11:39 AM E DT catch / Unknown Unknown Alphonso Morton MD LAB URINE ORDERABLES Performing Organization Address City/State/ZIP Code Phon e Number [facility] [address] [place] [address] LABORATORY X-ray Chest 2 Views [...] ation. Dictated: 08/28/2016 11:59 AM Report ID: [id number] Report signed in external system at 08/28 11:59 Reported By: Jeremiah Trevizo M.D. (resi dent) - PROVIDER ID: BHANU (BHANU) Signed By: Joshua Arora M.D. - PRO VIDER ID: [email or web address] ([email or web address]) Narrative 08/28/2016 11:59 AM EDT RESPONSIBLE CARDING UTILITY TENDER: Joshua Arora M.D. - PROVIDER ID: G [...] might be different from the original. RESPONSIBLE CARDING UTILITY TENDER: Joshua Arora M.D. - PROVIDER ID: G [...] ation. Dictated: 08/28/2016 11:59 AM Report ID: [id number] Report signed in external system at 08/28 [...] Organization Address City/State/ZIP Code Phon e Number [address] [address] LABORATORY hCG, serum, qualitative (08/28/2016 10:47 AM EDT) Analysis Performed At Patho logist Time Signature HCG SERUM QUAL Negative Negative 08/28/2016 [facility] 11:42 AM EDT [facility] LABORATORY Specimen Anatomical Collection Method / Collection Time Recei nancy Time (Source) Location / Volume Laterality Blood Venous blood / Venipuncture / 08/28/2016 10:47 017 Unknown Unknown AM EDT 10:57 AM EDT Alphonso Morton MD LAB BLOOD ORDERABLES Performing Organization Address City/State/ZIP Code Phon e Number [facility] [address] [place] [address] LABORATORY (ABNORMAL) CBC auto differential (08/28/2016 10:47 AM EDT) [facility] Method Time Signature WBC 16.49 (H) 4.0 - 08/28/2016 [facility] 10.8 11:13 AM [facility] 10*3/uL LABORATORY nRBC 0 0 - 0 08/28/2016 [facility] /100 WBCs 11:13 AM [facility] LABORATORY RBC 3.90 (L) 4.20 - 08/28/2016 [facility] 5.40 11:13 AM [facility] 10*6/uL LABORATORY HGB 12.3 12.0 - 08/28/2016 [facility] 16.0 g/dL 11:13 AM [facility] LABORATORY HCT 36.3 35.0 - 08/28/2016 [facility] 48.0 % 11:13 AM [facility] LABORATORY MCV 93.1 81.0 - 08/28/2016 [facility] 99.0 fL 11:13 AM [facility] LABORATORY MCH 31.5 26.0 - 08/28/2016 [facility] 33.0 pg 11:13 AM [facility] LABORATORY MCHC 33.9 32.0 - 08/28/2016 [facility] 36.0 g/dL 11:13 AM [facility] LABORATORY PLT 337 150 - 350 08/28/2016 [facility] 10*3u/L 11:13 AM [facility] LABORATORY RDW-CV 14.2 11.5 - 08/28/2016 [facility] 14.5 % 11:13 AM [facility] LABORATORY Segmented % 83.1 30.0 - 08/28/2016 [facility] 85.0 % 11:13 AM [facility] LABORATORY ABS Neutrophil 13.72 (H) 1.5 - 6.5 08/28/2016 [facility] 10*3/uL 11:13 AM [facility] LABORATORY Lymphocytes % 7.0 (L) 15.0 - 08/28/2016 [facility] 50.0 % 11:13 AM [facility] LABORATORY ABS Lymphocyte 1.15 1.0 - 3.7 08/28/2016 [facility] 10*3u/L 11:13 AM EDT HOSPITAL LABORATORY Monocytes % 8.7 0.0 - 08/28/2016 [facility] 10.0 % 11:13 AM EDT HOSPITAL LABORATORY Eosinophils % 0.5 % 08/28/2016 [facility] 11:13 AM EDT HOSPITAL LABORATORY Basophil % 0.4 0.0 - 2.0 08/28/2016 [facility] % 11:13 AM EDT HOSPITAL LABORATORY IMM GRAN 0.3 0.0 - 1.0 08/28/2016 [facility] % 11:13 AM EDT HOSPITAL LABORATORY Specimen Anatomical Collection Method / Collection Time Recei nancy Time (Source) Location / Volume Laterality Blood Venous blood / Venipuncture / 08/28/2016 10:47 017 Unknown Unknown AM EDT 10:54 AM EDT Alphonso Morton MD LAB BLOOD ORDERABLES Performing Organization Address City/[facility]/ZIP [facility] Phon e Number [place] [address] LABORATORY Lactic acid, plasma (08/28/2016 10:46 AM EDT) P athologist Signature LACTATE 1.3 0.7 - 2.1 08/28/2016 [facility] mmol/L 11:37 AM EDT HOSPITAL LABORATORY Specimen Anatomical Collection Method / Collection Time Recei nancy Time (Source) Location / Volume Laterality Blood Venous blood / Venipuncture / 08/28/2016 10:46 017 Unknown Unknown AM EDT 10:54 AM EDT Alphonso Morton MD LAB BLOOD ORDERABLES Performing Organization Address City/[facility] Phon e Number [address] [address] LABORATORY documented in this encounter Visit Diagnoses Diagnosis Elevated temperature - Primary Fever, unspecified Constipation, unspecified constipation t ype documented in this encounter Care Teams Radio Installer Relationship Specialty Start Date End Date Lisa Sotelo MD PCP - General Family Medicine 08/19/16 03/01/18 [address] [place] [address] documented as of this encounter
--- OUTSIDE RECORDS SUMMARY | 2021-11-18 12:30 | XMS_ITS | Encounter Summary ---
:1945 Author Organization [facility] Address 330 [facility], [address] [place] [address] Care Team Providers Name Role Phone Lisa Sotelo MD Primary Care Provider Encounter Details Date Type Department Care Team Description 09/20/2016 Abstract [facility] trista William, Plantar fasciitis; [address] [place] [address] ANN Krishnamurthy Osteoporosis; [place] [address] [place] [address] Oral candidiasis [phone] [place] [address] (Wo rk) Social History Tobacco Use Types Packs/Day Years Used Date Former Smoker Sex Assigned at Date Recorded Female 04/12/2019 2:19 PM EST documented as of this encounter Plan of Treatment Upcoming Encounters Date Type Specialty Care Team Description 11/30/2021 Office Visit Family Medicine Kevin Miranda MD [address] [place], [place] [address] (Wo rk) documented as of this encounter Visit Diagnoses Diagnosis Plantar fasciitis Plantar fascial fibromatosis Osteoporosis Unspecified osteoporosis Oral candidiasis Candidiasis of mouth documented in this encounter Care Teams Catheterization Laboratory Technician Relationship Specialty Start Date End Date Lisa Sotelo MD PCP - General Family Medicine 08/19/16 03/01/18 [address] [place] [address] documented as of this encounter
--- OUTSIDE RECORDS SUMMARY | 2021-11-18 12:30 | XMS_ITS | Encounter Summary ---
:1945 Author Organization [facility] Address 330 [facility], [address] [place] [address] Care Team Providers Name Role Phone Lisa Sotelo MD Primary Care Provider Encounter Details Date Type Department Care Team Description 06/06/2017 Documentation [facility] Lisa Gudino MD [address] [place] [address] [place] [address] [phone] (Wo rk) Social History Tobacco Use Types [...] Visit Family Medicine Kevin Miranda MD [address] [place] [address] (Wo rk) documented as of this encounter Visit Diagnoses Not on filedocumented in this encounter Care Teams Securities Clerk Relationship Specialty Start Date End Date Lisa Sotelo MD PCP - General Family Medicine 08/19/16 03/01/18 10[address] [place] [address] documented as of this encounter
--- OUTSIDE RECORDS SUMMARY | 2021-11-18 12:30 | XMS_ITS | Encounter Summary ---
:1945 Author Organization [facility] Address 330 [facility], [address] [place] [address] Care Team Providers Name Role Phone Lisa Sotelo MD Primary Care Provider Encounter Details Date Type Department Care Team Description 11/10/2017 Scan Document [facility]otelo in [facility] [address] [place] [address] [place] [address] Social History Tobacco Use Types Packs/Day Years [...] Visit Family Medicine Kevin Miranda MD [address] [place] [address] (Wo rk) documented as of this encounter Visit Diagnoses Not on filedocumented in this encounter Care Teams Online Editor Relationship Specialty Start Date End Date Lisa Sotelo MD PCP - General Family Medicine 08/19/16 03/01/[address] [place] [address] documented as of this encounter
--- OUTSIDE RECORDS SUMMARY | 2021-11-18 12:30 | XMS_ITS | Encounter Summary ---
:1945 Author Organization [facility] Address 330 [facility], [address] [place] [address] Care Team Providers Name Role Phone Kevin Miranda MD Primary Care Provider Reason for Referral (Routine) - Closed Specialty Diagnoses / Procedures Referred By Contact Refer red To Contact Diagnoses COPD (chronic obstructive pulmonary disease) ([facility]) Lisa Sotelo MD Procedures Pulmonary function test [address] [place] [address] Referral ID Status Reason Start Date Expiration Date Visits Requ ested Visits Authorized [id number] Closed 08/18/2016 02/14/2017 1 1 Encounter Details Date Type Department Care Team Description 08/18/2016 Ancillary Orders [place] Lisa Sotelo, COPD ([facility] Non-Invasive MD obstructive pulmonary Cardiology [address] [place] [address]) ([facility]) [address] [phone] [address] (Work) [phone] Social History Tobacco Use Types Packs/Day Years Used Date Former Smoker Sex Assigned at Date Recorded Female 04/12/2019 2:19 PM EST documented as of this encounter Plan of Treatment Upcoming Encounters Date Type Specialty Care Team Description 11/30/2021 Office Visit Family Medicine Kevin Miranda MD [address] [place] [address] (Wo rk) documented as of this encounter Results FULL PFT WITH BRONCHODILATORS (11/23/2016 10:42 AM EDT) Specimen (Source) Anatomical Collection Method Collection Time Re ceived Time Location / / Volume Laterality 11/23/2016 9:56 AM EDT [facility] - 12/07/2016 2:27 PM EDT [...] Address City/State/ZIP Code Phon e Number [facility] [address] [place] [address] documented in this encounter Visit Diagnoses Diagnosis COPD (chronic obstructive pulmonary dise ase) (CMS/HCC) Chronic airway obstruction, not elsewher e classified COPD (chronic obstructive pulmonary dise ase) (CMS/HCC) Chronic airway obstruction, not elsewher e classified documented in this encounter Care Teams Form Builder Helper Relationship Specialty Start Date End Date Kevin Miranda MD PCP - General Family Medicine 11/20/19 [address] [place] [address] documented as of this encounter
--- OUTSIDE RECORDS SUMMARY | 2021-11-18 12:30 | XMS_ITS | Encounter Summary ---
:1945 Author Organization [facility] Address 330 [facility], [address] [place] [address] Care Team Providers Name Role Phone Lisa Sotelo MD Primary Care Provider Encounter Details Date Type Department Care Team Description 08/01/2017 Refill [facility] Pr actice Lisa Sotelo MD [facility] [address] [address] [place] [address] [phone] (Wo rk) Social History Tobacco Use Types [...] Visit Family Medicine Kevin Miranda MD [address] [place] [address] (Wo rk) documented as of this encounter Visit Diagnoses Not on filedocumented in this encounter Care Teams Flour Mixer Relationship Specialty Start Date End Date Lisa Sotelo MD PCP - General Family Medicine 08/19/16 03/01/[address] [place] [address] documented as of this encounter
--- OUTSIDE RECORDS SUMMARY | 2021-11-18 12:30 | XMS_ITS | Encounter Summary ---
:1945 Author Organization [facility] Address 330 [facility], [address] [place] [address] Care Team Providers Name Role Phone Lisa Sotelo MD Primary Care Provider Encounter Details Date Type Department Care Team Description 06/06/2017 Orders Only [facility] Pr actice Lisa Sotelo MD [facility] [address] [address] [place] [address] [phone] (Wo rk) Social History Tobacco Use Types [...] Visit Family Medicine Kevin Miranda MD [address] [place] [address] (Wo rk) documented as of this encounter Visit Diagnoses Not on filedocumented in this encounter Care Teams Perfusionist Relationship Specialty Start Date End Date Lisa Sotelo MD PCP - General Family Medicine 08/19/16 03/01/[address] [place] [address] documented as of this encounter
--- OUTSIDE RECORDS SUMMARY | 2021-11-18 12:30 | XMS_ITS | Encounter Summary ---
:1945 Author Organization [facility] Address 330 [facility], [address] [place] [address] Care Team Providers Name Role Phone Lisa Sotelo MD Primary Care Provider Reason for Visit Reason Comments Rash on face Encounter Details Date Type Department Care Team Description 01/17/2017 Office Visit [facility] ANN Krishnamurthy (Primary Dx) [address] [place] [address] [place], [place] [phone] Social History Tobacco Use Types Packs/Day Years [...] but she has an appointment with her psychometrist later today and will discuss further with her. No lab work needed at our appointment. Follow up prn. Yessy William NP documented in this encounter Plan of Treatment Upcoming Encounters Date Type Specialty Care Team Description 11/30/2021 Office Visit Family Medicine Kevin Miranda MD [address] [place] [address] (Wo rk) documented as of this encounter Visit Diagnoses Diagnosis Dermatitis of face - Primary documented in this encounter Care Teams Usability Strategist Relationship Specialty Start Date End Date Lisa Sotelo MD PCP - General Family Medicine 08/19/16 03/01/18 1020 [place] [address] documented as of this encounter
--- OUTSIDE RECORDS SUMMARY | 2021-11-18 12:30 | XMS_ITS | Encounter Summary ---
:1945 Author Organization [facility] Address 330 [facility], [address] [place] [address] Care Team Providers Name Role Phone Lisa Sotelo MD Primary Care Provider Reason for Visit Reason Comments Follow-up on medication Encounter Details Date Type Department Care Team Description 03/10/2017 Office Visit [facility] actLisa Segundo MD Sleep disorder [address] [place] [address] [place] [address] [phone] (Wo rk) Social History Tobacco Use Types [...] Visit Family Medicine Kevin Miranda MD [address] [place], [place] [address] (Wo rk) documented as of this encounter Visit Diagnoses Diagnosis Sleep disorder Unspecified sleep disturbance documented in this encounter Care Teams Lining Stamper Relationship Specialty Start Date End Date Lisa Sotelo MD PCP - General Family Medicine 08/19/16 03/01/18 [address] [place] [address] documented as of this encounter
--- OUTSIDE RECORDS SUMMARY | 2021-11-18 12:30 | XMS_ITS | Encounter Summary ---
:1945 Author Organization [facility] Address [address] [facility], [address] [place] [address] Care Team Providers Name Role Phone Lisa Sotelo MD Primary Care Provider Encounter Details Date Type Department Care Team Description 05/23/2017 Scan Document - View [facility] Lisa Sotelo, in Chart Practice [address] [place], [place] [address] [place], [place] [phone] Social History Tobacco Use Types Packs/Day Years [...] Visit Family Medicine Kevin Miranda MD [address] [place] [address] (Wo rk) documented as of this encounter Visit Diagnoses Not on filedocumented in this encounter Care Teams Surveillance Manager Relationship Specialty Start Date End Date Lisa Sotelo MD PCP - General Family Medicine 08/19/16 03/01/[address] [place] [address] documented as of this encounter
--- OUTSIDE RECORDS SUMMARY | 2021-11-18 12:30 | XMS_ITS | Encounter Summary ---
:1945 Author Organization [facility] Address 330 [facility], [address] [place] [address] Care Team Providers Name Role Phone Kevin Miranda MD Primary Care Provider Encounter Details Date Type Department Care Team Description 06/13/2017 Procedure [facility] [address] [place] [phone] Social History Tobacco Use Types [...] Visit Family Medicine Kevin Miranda MD [address] [place] [address] (Wo rk) documented as of this encounter Visit Diagnoses Not on filedocumented in this encounter Care Teams Multi Craft Maintenance Technician Relationship Specialty Start Date End Date Kevin Miranda MD PCP - General Family Medicine 11/20/[address] [place] [address] documented as of this encounter
--- OUTSIDE RECORDS SUMMARY | 2021-11-18 12:30 | XMS_ITS | Encounter Summary ---
:1945 Author Organization [facility] Address 330 [facility], [address] [place] [address] Care Team Providers Name Role Phone Lisa Sotelo MD Primary Care Provider Encounter Details Date Type Department Care Team Description 08/15/2017 Scan Document - View [facility] Lisa Sotelo in [place] [facility] [address] [place] [address] [place] [address] Social History Tobacco Use Types Packs/Day Years [...] Visit Family Medicine Kevin Miranda MD [address] [place] [address] (Wo rk) documented as of this encounter Visit Diagnoses Not on filedocumented in this encounter Care Teams Cone Tender Relationship Specialty Start Date End Date Lisa Sotelo MD PCP - General Family Medicine 08/19/16 03/01/[address] [place] [address] documented as of this encounter
--- OUTSIDE RECORDS SUMMARY | 2021-11-18 12:30 | XMS_ITS | Encounter Summary ---
:1945 Author Organization [facility] Address 330 [facility], [address] [place] [address] Care Team Providers Name Role Phone Lisa Sotelo MD Primary Care Provider Reason for Visit Reason Onset Date Comments ANDREY Camb. Appt. 06/13/17 06/03/2017 Encounter Details Date Type Department Care Team Description 06/03/2017 Telephone [facility], Nawaf Jason FYI Camb. Appt. IRIS WINSTON 06/13/17 [facility] [address] [place] [address] [phone] (Wo rk) Social History Tobacco Use Types [...] Visit Family Medicine Kevin Miranda MD [facility] [place], [place] [address] (Wo rk) documented as of this encounter Visit Diagnoses Not on filedocumented in this encounter Care Teams Electric Motor Controls Assembler Relationship Specialty Start Date End Date Lisa Sotelo MD PCP - General Family Medicine 08/19/16 03/01/[address] [place] [address] documented as of this encounter
--- OUTSIDE RECORDS SUMMARY | 2021-11-18 12:30 | XMS_ITS | Encounter Summary ---
:1945 Author Organization [facility] Address 330 [facility], [address] [place] [address] Care Team Providers Name Role Phone Kevin Miranda MD Primary Care Provider Reason for Visit Reason Comments Med Refill Encounter Details Date Type Department Care Team Description 11/27/2017 Refill [facility] Pr Lisa Gudino MD [address] [place] [address] [place] [address] [phone] (Wo rk) Social History Tobacco Use Types [...] Visit Family Medicine Kevin Miranda MD [address] [place] [address] (Wo rk) documented as of this encounter Visit Diagnoses Not on filedocumented in this encounter Care Teams Eyelet Maker Relationship Specialty Start Date End Date Kevin Miranda MD PCP - General Family Medicine 11/20/[address] [place] [address] documented as of this encounter
--- OUTSIDE RECORDS SUMMARY | 2021-11-18 12:30 | XMS_ITS | Encounter Summary ---
:1945 Author Organization [facility] Address 330 [facility], [address] [place] [address] Care Team Providers Name Role Phone Kevin Miranda MD Primary Care Provider Reason for Referral Diagnostic Imaging (Routine) - Closed Specialty Diagnoses / Procedures Referred By Contact Refer red To Contact Diagnoses Right hip pain Right groin pain Yasmine Shaw MD Procedures X-ray Hip 2-3 Views Right (Pelvis Optional) [facility] [address] [facility], [place] [address] Referral ID Status Reason Start Date Expiration Date Visits Requ ested Visits Authorized [id number] Closed 07/22/2017 07/22/2018 1 1 Encounter Details Date Type Department Care Team Description 07/22/2017 Ancillary Orders [facility] Roxana Shaw MD Right hip pain; X-ray at [address] [facility] [address] [facility] [place], [place] [address] [facility], [address] [address] [phone] [place], [place] [address] (Wo rk) Social History [...] Miranda MD [facility] [place], [place] [address] (Wo rk) documented as [...] change. Dictated: 07/22/2017 10:45 AM Report ID: [id number] Report signed in external system at 07/22 10:45 Reported By: Wale Faustin M.D. (TAMICA P) Signed By: Wale Faustin M.D. (ROGP) Narrative 07/22/2017 10:45 AM EDT RESPONSIBLE GLOVE PARTS CUTTER: Wale Faustin M.D. EXAMINATION: XR HIP 2-3 [...] might be different from the original. RESPONSIBLE GLOVE PARTS CUTTER: Wale Faustin M.D. EXAMINATION: XR HIP 2-3 [...] change. Dictated: 07/22/2017 10:45 AM Report ID: [id number] Report signed in external system at 07/22 [...] quadrant documented in this encounter Care Teams Javascript Web Developer Relationship Specialty Start Date End Date Kevin Miranda MD PCP - General Family Medicine 11/20/19 [facility] [place] [address] documented as of this encounter
--- OUTSIDE RECORDS SUMMARY | 2021-11-18 12:30 | XMS_ITS | Encounter Summary ---
:1945 Author Organization [facility] Address 330 [facility], [address] [place] [address] Care Team Providers Name Role Phone Lisa Sotelo MD Primary Care Provider Reason for Referral Diagnostic Imaging (Routine) - Closed Specialty Diagnoses / Procedures Referred By Contact Refer red To Contact Diagnoses Chronic pain of left knee Nawaf Jason MD Procedures X-ray Knee 3 Views Left [address] [place] [address] Referral ID Status Reason Start Date Expiration Date Visits Requ ested Visits Authorized [id number] Closed 06/13/2017 06/13/2018 1 1 iagnostic Imaging (Routine) - Closed Specialty Diagnoses / Procedures Referred By Contact Refer red To Contact Radiology Diagnoses Radiculopathy, lumbar region Nawaf Jason MD Procedures MRI Lumbar Spine without Contrast [address] [place] [address] Referral ID Status Reason Start Date Expiration Date Visits Requ ested Visits Authorized [id number] Closed 06/13/2017 06/13/2018 1 1 Encounter Details Date Type Department Care Team Description 06/13/2017 Consult [facility], Nawaf Jason, Radiculopathy, lumbar region (Primary Dx); IRIS WINSTON It band syndrome, left; [address] Lateral knee pain, left; [place] [address] [place] [address] Chronic pain of left knee [phone] (Wo rk) Social History Tobacco Use Types [...] from the original note were not included. [facility] [place] [facility]: [address] [facility]: 92 [facility]: [address] [facility] T: [phone] F:[phone] R-Squared.GoSquared Reason for PM&R Consultation: 1. Radiculopathy, right [...] for further education on the topic : iFLYER cc: Lisa Sotelo MD Dear Lisa Sotelo MD Thank you for referring Molly Rios is a 72 y.o. female to [facility]. [...] for that has not helped. In the [facility] she had an x-ray done in [...] flavum hypertrophy. ??Bilateral disc protrusions result in ojzz-cv-dsqhgazi right and mild left neural foraminal narrowing, [...] Visit Family Medicine Kevin Miranda MD [address] [place], [place] [address] (Wo rk) documented as [...] flavum hypertrophy. ??Bilateral disc protrusions result in hbtd-up-svgdtgpk right and mild left neural foraminal narrowing, [...] diverticulosis. Dictated: 06/22/2017 11:06 AM Report ID: [id number] Report signed in external system at 06/22 11:06 Reported By: Dusty Norwood M.D. (NATALIA) Signed By: Dusty Norwood M.D. (NATALIA) Narrative 06/22/2017 11:06 AM EDT RESPONSIBLE THEATER COMPANY PRODUCER: Dusty Norwood M.D. EXAMINATION: MRI LUMBAR SPINE [...] of ??the spinal canal, but wit hout yasemen spinal canal stenosis. ??Bila teral disc protrusions result in ekpr-te-fokjyzqx right and mild left neural foraminal narrowing, [...] exiting right L5 nerve root. ??There is fyyr-ua-puqdlfyl encroachment of the left neural foramina, but without contact of the exiting left L5 nerve root. ??There is no significant narrowing of the spinal canal. Other: Fatty replacement of the paraspin ous musculature is noted at L4-L5 and L5-S1. Pelvic viscera are not evaluated. ??Sigm oid diverticulosis is noted. ??There is trace free pelvic fluid. Procedure Note Dusty Norwood MD - 06/22/2017 RESPONSIBLE THEATER COMPANY PRODUCER: Dusty Norwood M.D. EXAMINATION: MRI LUMBAR SPINE [...] stenosis. Bilateral disc pr otrusions result in ejaf-ab-exbxovju right and mild left neural foraminal narrowing, [...] exiting right L5 nerve root. There is kqvy-me-ypwkijdu encroachment o f the left neural foramina, [...] flavum hypertrophy. Bilateral disc protrusions result in ojxv-jw-wiyflqqf right and mild left neural foraminal narrowing, [...] diverticulosis. Dictated: 06/22/2017 11:06 AM Report ID: [id number] Report signed in external system at 06/22 [...] change. Dictated: 06/20/2017 4:16 PM Report ID: [id number] Report signed in external system at 06/20 16:16 Reported By: Wale Faustin M.D. (TAMICA P) Signed By: Wale Faustin M.D. (ROGP) Narrative 06/20/2017 4:16 PM EDT RESPONSIBLE [employer]ATER COMPANY PRODUCER: Wale Faustin M.D. EXAMINATION: XR KNEE 3 [...] might be different from the original. RESPONSIBLE THEATER COMPANY PRODUCER: Wale Faustin M.D. EXAMINATION: XR KNEE 3 [...] change. Dictated: 06/20/2017 4:16 PM Report ID: [id number] Report signed in external system at 06/20 [...] unspecified documented in this encounter Care Teams Human Resource Consultant Relationship Specialty Start Date End Date Lisa Sotelo MD PCP - General Family Medicine 08/19/16 03/01/18 [address] [place] [address] documented as of this encounter
--- OUTSIDE RECORDS SUMMARY | 2021-11-18 12:30 | XMS_ITS | Encounter Summary ---
:1945 Author Organization [facility] Address 330 [facility], [address] [place] [address] Care Team Providers Name Role Phone Lisa Sotelo MD Primary Care Provider Encounter Details Date Type Department Care Team Description 07/07/2017 Refill [facility] actice Lisa Sotelo MD [facility] [address] [address] [place] [address] [phone] (Wo rk) Social History Tobacco Use Types [...] Visit Family Medicine Kevin Miranda MD [address] [place] [phone] (Wo rk) documented as of this encounter Visit Diagnoses Not on filedocumented in this encounter Care Teams Flour Blender Helper Relationship Specialty Start Date End Date Lisa Sotelo MD PCP - General Family Medicine 08/19/16 03/01/[address] [place] [address] documented as of this encounter
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
--- OUTSIDE RECORDS SUMMARY | 2021-11-18 12:30 | XMS_ITS ---
:1945 Author Care Team Providers Name Role Phone DR. MARILUZ VELEZ Primary Care Provider [phone] MARILUZ VELEZ Referring Provider [phone] Allergies Code Code System Name Reaction Severity [...] None recorded. ? ? Vitals 02/06/2019 10:45AM OP/TECHNOLOGY SPECIALIST Height Weight BMI 5 ft 7.5 in 130 lbs 20.1 kg/m2 12/25/2018 01:45PM TECHNOLOGY SPECIALIST 15 Height Weight BMI 5 ft 7.5 in 128 lbs 19.8 kg/m2
--- OUTSIDE RECORDS SUMMARY | 2021-11-18 12:30 | XMS_ITS | Encounter Summary ---
:1945 Author Organization [facility] Address [address] [facility], [address] [place] [address] Care Team Providers Name Role Phone Lisa Sotelo MD Primary Care Provider Encounter Details Date Type Department Care Team Description [facility], ANN [address] [place] [address] Social History Tobacco Use Types Packs/Day Years [...] Visit Family Medicine Kevin Miranda MD [address] [place] [address] (Wo rk) documented as of this encounter Visit Diagnoses Not on filedocumented in this encounter Care Teams Hydraulic Controls Technician Relationship Specialty Start Date End Date Lisa Sotelo MD PCP - General Family Medicine 08/19/16 03/01/[address] [place] [address] documented as of this encounter
--- OUTSIDE RECORDS SUMMARY | 2021-11-18 12:30 | XMS_ITS | Encounter Summary ---
:1945 Author Organization [facility] Address [address] [facility], [address] [place] [address] Care Team Providers Name Role Phone Lisa Sotelo MD Primary Care Provider Encounter Details Date Type Department Care Team Description 04/14/2017 Office Visit [facility] Lisa Sotelo MD Canceled (Error) Practice [address] [place] [address] [phone] (Wo rk) Social History Tobacco Use Types [...] Visit Family Medicine Kevin Miranda MD [address] [place] [address] (Wo rk) documented as of this encounter Visit Diagnoses Not on filedocumented in this encounter Care Teams Workforce Specialist Relationship Specialty Start Date End Date Lisa Sotelo MD PCP - General Family Medicine 08/19/16 03/01/[address] [place] [address] documented as of this encounter
--- OUTSIDE RECORDS SUMMARY | 2021-11-18 12:30 | XMS_ITS | Encounter Summary ---
:1945 Author Organization [facility] Address [address] [facility], [address] [place] [address] Care Team Providers Name Role Phone Lisa Sotelo MD Primary Care Provider Encounter Details Date Type Department Care Team Description 12/02/2003 Orders Only [facility] Hieu Trevizo MD [address] [place] [address] Social History Tobacco Use Types Packs/Day Years Used Date Never Assessed Sex Assigned at Date Recorded Female 04/12/2019 2:19 PM EST documented as of this encounter Plan of Treatment Upcoming Encounters Date Type Specialty Care Team Description 11/30/2021 Office Visit Family Medicine Kevin Miranda MD [address] [place] [address] (Wo rk) Scheduled Orders Name Type Priority Associated Diagnoses Order S chedule DEXA Bone Density Central Imaging Routine Or dered: 12/02/2003 documented as of this encounter Visit Diagnoses Not on filedocumented in this encounter Care Teams Tin Can Feeder Relationship Specialty Start Date End Date Lisa Sotelo MD PCP - General Family Medicine 08/19/16 03/01/[address] [place] [address] documented as of this encounter
--- OUTSIDE RECORDS SUMMARY | 2021-11-18 12:30 | XMS_ITS | Encounter Summary ---
:1945 Author Organization [facility] Address [address] [facility], [address] [place] [address] Care Team Providers Name Role Phone Lisa Sotelo MD Primary Care Provider Reason for Visit Reason Comments Annual Exam Encounter Details Date Type Department Care Team Description 03/17/2017 Office Visit Kaushik Sotelo, Screening for iron deficiency anemia (Primary Dx); Practice MD Lisa Routine adult health maintenance; [facility] [place] [address] [facility]; [place] [address] [place], [place] Screening for diabetes [facility] tu; [phone] Osteopenia, unspecified location; [phone] Other emphysema ([facility]); (Work) Insomnia, unspecified type; [phone] Gastroesophagea l reflux disease without esophagitis (Fax) [...] stress echo, but no results are in [facility]. She has had excellent lipids, with [...] has used it (Dr. Kelli Hansen [facility]). Doesn't cough a lot other than after [...] going on. Continue corestrengthening. She can see discharge door operator to discuss more sophisticated testing, should [...] Visit Family Medicine Kevin Miranda MD [address] [facility] [place] [address] (Wo rk) documented as of [...] 13% high er for people identified as -Chadian. eGFR NON-AFR. ISRAELI 86 > OR = 60 mL/min/1.73m2 [facility] eGFR 100 > OR = 60 mL/min/1.73m2 [facility] Specimen Anatomical Collection Method Collection Time Receive d Time (Source) Location / / Volume Laterality Blood Venous blood / 03/18/2017 10:05 8 Unknown AM EST 10:05 AM EST Narrative [facility] - 03/18/2017 10:35 PM EST FASTING:YES FASTING: YES Resulting Agency Comment Performing Organization Information: ?Site ID: [id number] ?Name: [employer] ?Address: [address] [place] [address], [place] [address] ?Director: Carlin Gutierrez Lisa Sotelo MD LAB BLOOD ORDERABLES Performing Organization Address City/State/ZIP Code Phon e Number [employer] [address] [address] [place] [address] [address] Glucose, random (03/18/2017 10:05 AM [...] Performing Organization Information: ?Site ID: [id number] ?Name: [employer] [employer] ?Address: [address] [place] [phone] ?Director: Carlin Gutierrez Lisa Sotelo MD LAB BLOOD ORDERABLES Performing Organization Address [facility] Phon e Number [employer] [address] [address] [place] [address], [address] CBC (03/18/2017 10:05 AM EST) [...] Performing Organization Information: ?Site ID: [id number] ?Name: [employer] ?Address: [address] [place] [phone] ?Director: Carlin Gutierrez Lisa Sotelo MD LAB BLOOD ORDERABLES Performing Organization Address [facility] Phon e Number [employer] [address] [address] [place] [address], [address] documented in this encounter Visit Diagnoses Diagnosis Screening for iron deficiency anemia - P rimary Routine adult health maintenance Bandemia Screening for diabetes mellitus Osteopenia, unspecified location Other emphysema (CMS/HCC) Other emphysema Insomnia, unspecified type Gastroesophageal reflux disease without esophagitis Esophageal reflux documented in this encounter Care Teams Air Reduction Equipment Operator Relationship Specialty Start Date End Date Lisa Sotelo MD PCP - General Family Medicine 08/19/16 03/01/[address] [place] [address] documented as of this encounter
--- OUTSIDE RECORDS SUMMARY | 2021-11-18 12:30 | XMS_ITS | Encounter Summary ---
:1945 Author Organization [facility] Address [address] [facility], [address] [place] [address] Care Team Providers Name Role Phone Lisa Sotelo MD Primary Care Provider Reason for Visit Reason Comments Follow-up Encounter Details Date Type Department Care Team Description 03/31/2017 Office Visit Lisa Newton, Insomni a, unspecified type (Primary Dx); Practice MD Anxiety and depression; [address] Osteopenia, unspecified location; [place] [address] [place] [phone] Social History Tobacco Use Types Packs/Day Years [...] to send back to [facility] in [place]. Osteopenia; Her own records say she always [...] note. I again suggested she see a mold puller Count includes the [facility] to discuss more sophisticated testing. IN perusing old record, Dr. Trevizo had made the same suggestion 11/2015. addendum after patient had left. Perusal of old chart reveals that she was started on Vxpunorahge13.5 mg dailyby psychopharmacologist in 2004 for depression. [...] Visit Family Medicine Kevin Miranda MD [address] [place], [place] [address] (Wo rk) documented as of this encounter Visit Diagnoses Diagnosis Insomnia, unspecified type - Primary Anxiety and depression Osteopenia, unspecified location Rosacea documented in this encounter Care Teams Target Trimmer Relationship Specialty Start Date End Date Lisa Sotelo MD PCP - General Family Medicine 08/19/16 03/01/[address] [place] [address] documented as of this encounter
--- OUTSIDE RECORDS SUMMARY | 2021-11-18 12:30 | XMS_ITS | Encounter Summary ---
:1945 Author Organization [facility] Address [address] [facility], [address] [place] [address] Care Team Providers Name Role Phone Lisa Sotelo MD Primary Care Provider Encounter Details Date Type Department Care Team Description 02/01/2017 Orders Only [facility] actice Provider, MD Harsh [address] [place] [address] [phone] Social History Tobacco Use Types Packs/Day Years [...] Visit Family Medicine Kevin Miranda MD [address] [place] [address] (Wo rk) documented as of [...] filedocumented in this encounter Care Teams Oil Tester Relationship Specialty Start Date End Date Lisa Sotelo MD PCP - General Family Medicine 08/19/16 03/01/18 1020 [place] [address] documented as of this encounter
--- OUTSIDE RECORDS SUMMARY | 2021-11-18 12:30 | XMS_ITS | Encounter Summary ---
:1945 Author Organization [facility] Address [address] [facility], [address] [place] [address] Care Team Providers Name Role Phone Lisa Sotelo MD Primary Care Provider Encounter Details Date Type Department Care Team Description 10/11/2016 Scan Document - View [facility] Lisa Sotelo, in Chart Practice [address] [place] [address] [place], [place] [phone] Social History Tobacco Use Types Packs/Day Years Used Date Former Smoker Sex Assigned at Date Recorded Female 04/12/2019 2:19 PM EST documented as of this encounter Plan of Treatment Upcoming Encounters Date Type Specialty Care Team Description 11/30/2021 Office Visit Family Medicine Kevin Miranda MD [address] [place] [address] (Wo rk) documented as of this encounter Visit Diagnoses Not on filedocumented in this encounter Care Teams Barrel Raiser Relationship Specialty Start Date End Date Lisa Sotelo MD PCP - General Family Medicine 08/19/16 03/01/[address] [place] [address] documented as of this encounter
--- OUTSIDE RECORDS SUMMARY | 2021-11-18 12:30 | XMS_ITS | Encounter Summary ---
:1945 Author Organization [facility] Address [address] [facility], [address] [place] [address] Care Team Providers Name Role Phone Lisa Sotelo MD Primary Care Provider Encounter Details Date Type Department Care Team Description 06/17/2017 Scan Document - View [facility] Lisa Sotelo, in Chart Practice [address] [place], [place] [address] [place], [place] [phone] Social History Tobacco Use Types Packs/Day Years [...] Visit Family Medicine Kevin Miranda MD [address] [place] [address] (Wo rk) documented as of this encounter Visit Diagnoses Not on filedocumented in this encounter Care Teams Putty Tinter Maker Relationship Specialty Start Date End Date Lisa Sotelo MD PCP - General Family Medicine 08/19/16 03/01/[address] [place] [address] documented as of this encounter
--- OUTSIDE RECORDS SUMMARY | 2021-11-18 12:30 | XMS_ITS | Encounter Summary ---
:1945 Author Organization [facility] Address [address] [facility], [address] [place] [address] Care Team Providers Name Role Phone Lisa Sotelo MD Primary Care Provider Reason for Referral Diagnostic Imaging (Routine) - Closed Specialty Diagnoses / Procedures Referred By Contact Refer red To Contact Radiology Diagnoses Radiculopathy, lumbar region Nawaf Jason MD Procedures MRI Lumbar Spine without Contrast [address] [place] [address] Referral ID Status Reason Start Date Expiration Date Visits Requ ested Visits Authorized [id number] Closed 06/13/2017 06/13/2018 1 1 Reason for Visit Diagnostic Imaging (Routine) - Closed Specialty Diagnoses / Procedures Referred By Contact Refer red To Contact Radiology Diagnoses Radiculopathy, lumbar region Nawaf Jason MD Procedures MRI Lumbar Spine without Contrast [address] [place] [address] Referral ID Status Reason Start Date Expiration Date Visits Requ ested Visits Authorized [id number] Closed 06/13/2017 06/13/2018 1 1 Encounter Details Date Type Department Care Team Description 06/22/2017 Hospital Encounter [facility] Tolu Jason ed, MRI MD [address] [place] [phone] Social History Tobacco Use Types Packs/Day [...] Office Visit Family Medicine Kevin Miranda MD [facility] [place], [place] [address] (Wo rk) documented as [...] flavum hypertrophy. ??Bilateral disc protrusions result in llzh-ar-xsajrrzl right and mild left neural foraminal narrowing, [...] diverticulosis. Dictated: 06/22/2017 11:06 AM Report ID: [id number] Report signed in external system at 06/22 11:06 Reported By: Dusty Norwood M.D. (NATALIA) Signed By: Dusty Norwood M.D. (NATALIA) Narrative 06/22/2017 11:06 AM EDT RESPONSIBLE CUSTOMER STRATEGY MANAGER: Dusty Norwood M.D. EXAMINATION: MRI LUMBAR SPINE [...] stenosis. ??Bila teral disc protrusions result in eiji-sb-jtmzfaec right and mild left neural foraminal narrowing, [...] exiting right L5 nerve root. ??There is xnjr-ud-uvulnnyy encroachment of the left neural foramina, but without contact of the exiting left L5 nerve root. ??There is no significant narrowing of the spinal canal. Other: Fatty replacement of the paraspin ous musculature is noted at L4-L5 and L5-S1. Pelvic viscera are not evaluated. ??Sigm oid diverticulosis is noted. ??There is trace free pelvic fluid. Procedure Note Dusty Norwood MD - 06/22/2017 RESPONSIBLE CUSTOMER STRATEGY MANAGER: Dusty Norwood M.D. EXAMINATION: MRI LUMBAR SPINE [...] stenosis. Bilateral disc pr otrusions result in jnsh-km-btjnsmfo right and mild left neural foraminal narrowing, [...] exiting right L5 nerve root. There is mknm-cz-uwwhcsma encroachment o f the left neural foramina, [...] flavum hypertrophy. Bilateral disc protrusions result in tnqs-yp-aryofnhm right and mild left neural foraminal narrowing, [...] diverticulosis. Dictated: 06/22/2017 11:06 AM Report ID: [id number] Report signed in external system at 06/22 11:06 Reported By: Dusty Norwood M.D. (ANANTOS) Signed By: Dutsy Norwood M.D. (NATALIA) Nawaf Jason MD [facility] MRI PROCEDURES documented in this encounter Visit Diagnoses Diagnosis Radiculopathy, lumbar region Thoracic or lumbosacral neuritis or radi culitis, unspecified documented in this encounter Care Teams Filter Bed Placer Relationship Specialty Start Date End Date Lisa Sotelo MD PCP - General Family Medicine 08/19/16 03/01/[address] [place] [address] documented as of this encounter
--- OUTSIDE RECORDS SUMMARY | 2021-11-18 12:30 | XMS_ITS | Encounter Summary ---
:1945 Author Organization [facility] Address [address] [facility], [address] [place] [address] Care Team Providers Name Role Phone Kevin Miranda MD Primary Care Provider Reason for Visit Reason Comments Med Refill Encounter Details Date Type Department Care Team Description 03/10/2017 Refill [facility] Lisa Gudino MD [address] [place] [address] [place] [address] [phone] (Wo rk) Social History Tobacco Use Types [...] Visit Family Medicine Kevin Miranda MD [address] [place] [address] (Wo rk) documented as of this encounter Visit Diagnoses Not on filedocumented in this encounter Care Teams Wave Guide Assembler Relationship Specialty Start Date End Date Kevin Miranda MD PCP - General Family Medicine 11/20/[address] [place] [address] documented as of this encounter
--- OUTSIDE RECORDS SUMMARY | 2021-11-18 12:30 | XMS_ITS | Encounter Summary ---
:1945 Author Organization [facility] Address [address] [facility], [address] [place] [address] Care Team Providers Name Role Phone Lisa Sotelo MD Primary Care Provider Reason for Referral Rehab (Routine) - Closed Specialty Diagnoses / Procedures Referred By Contact Refer red To Contact Physical Therapy Diagnoses Lumbar facet arthropathy Nwaaf Jason MD [address] [place] [address] Referral ID Status Reason Start Date Expiration Date Visits V isits Requested Authorized [id number] Closed Specialty 06/27/2017 06/27/2018 1 1 Services Required Reason for Visit Specialty (Routine) - Closed Specialty Diagnoses / Referred By Contact Referred To Contact Procedures Physical Medicine and Diagnoses MRI FOLLOW-UP Lisa Sotelo MD Mostoufi, Seyed A, Rehabilitation Procedures FOLLOW UP [facility] [place] [address] [address] [place] [address] Fax: Referral ID Status Reason Start Date Expiration Date Visits Requ ested Visits Authorized [id number] Closed 06/06/2017 06/06/2018 3 3 Encounter Details Date Type Department Care Team Description 06/27/2017 Office Visit [place] Mostoufi, Nawaf A, Radiculop athy, lumbar region (Primary Dx); Physiatry, [facility] Lumbar facet arthropathy ([facility]/HCC); [address] [facility] [address] [facility] It band syndrome, left; [place] [address] [place], [place] Lateral knee pain, left [phone] Social History Tobacco Use Types Packs/Day Years [...] from the original note were not included. 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 Recent Imagin, [facility] and [facility] Available Films as well as results [...] of the lumbar vertebrae are preserved. - Surveillance Systems Analyst: PANKAJ Assistant Professor Of Philosophy: [email or web address] Results for orders placed during the [...] canal stenosis. Bilateral disc protrusions result in eqll-co-scnmxvdt right l2-3 and mild left neural foraminal [...] foramina and contact of the exiting right K5torfa root. There is oooe-jr-bzaoqgbs encroachment of the left neural foramina, but [...] flavum hypertrophy. Bilateral disc protrusions result in oeij-kb-svignsjy right and mild left neural foraminal narrowing, [...] SYNDROME OARASPINAL MUSCLE ATROPHY Pt 8 VISITS [facility] PT, SAT[employer]ANT Standing Status: Future Standing [...] Visit Family Medicine Kevin Miranda MD [address] [place], [place] [address] (Wo rk) Scheduled Referrals Name Type Priority Associated Order Schedule Diagnoses Prescription to Outpatient Routine Lumbar facet 1 Occurrence s Physical Therapy Referral arthropathy starting ([facility]) until 8 documented as of this encounter Visit Diagnoses Diagnosis Radiculopathy, lumbar region - Primary Thoracic or lumbosacral neuritis or radi culitis, unspecified Lumbar facet arthropathy Spondylosis of unspecified site without mention of myelopathy It band syndrome, left Lateral knee pain, left documented in this encounter Care Teams Rotary Surface Grinder Relationship Specialty Start Date End Date Lisa Sotelo MD PCP - General Family Medicine 08/19/16 03/01/[address] [place] [address] documented as of this encounter
--- OUTSIDE RECORDS SUMMARY | 2021-11-18 12:30 | XMS_ITS ---
[...] Rt knee 03/10/2015 MRI, Shoulder [facility] [address] [address] (Work Place) 03/18/2015 Bone Density Study Information not avai lable 04/24/2015 MRI, Shoulder [facility] [address] [place] [address] (Work Place) Results Lab Results [...]
--- OUTSIDE RECORDS SUMMARY | 2021-11-18 12:30 | XMS_ITS | Encounter Summary ---
:1945 Author Organization [facility] Address [address] [facility], [address] [place] [address] Care Team Providers Name Role Phone Lisa Sotelo MD Primary Care Provider Encounter Details Date Type Department Care Team Description 11/19/2016 Refill [facility] Pr Princess Doran NP [address] [address] [place] [address] [phone] Social History Tobacco Use Types Packs/Day Years [...] Visit Family Medicine Kevin Miranda MD [address] [place], [place] [address] (Wo rk) documented as of this encounter Visit Diagnoses Not on filedocumented in this encounter Care Teams Facility Maintenance Supervisor Relationship Specialty Start Date End Date Lisa Sotelo MD PCP - General Family Medicine 08/19/16 03/01/18 [address] [place] [address] documented as of this encounter
--- OUTSIDE RECORDS SUMMARY | 2021-11-18 12:30 | XMS_ITS ---
:1945 Author Care Team Providers Name Role Phone DR. ELBA MARIANO Primary Care Provider [phone] DR. ELBA MARIANO Referring Provider [phone] Allergies Code Code System Name Reaction Severity Status Onset Opioids - Morphine Analogues ? ? A ctive ? 81950 RxNorm Percocet ? ? Active ? Medications [...] topical cream Completed ? 1 03/07/2016 Fluvirin 0613-5726 45 mcg (15 mcg x 3)/0.5 mL [...]
--- OUTSIDE RECORDS SUMMARY | 2021-11-18 12:30 | XMS_ITS | Encounter Summary ---
:1945 Author Organization [facility] Address [address] [facility], [address] [place] [address] Care Team Providers Name Role Phone Laurie Elias CONSUMER MARKETING MANAGER Primary Care Provider Unavailable Encounter Details Date Type Department Care Team Description 04/13/1999 Orders Only [facility] Hieu Trevizo MD [address] [facility] [place] [address] Social History Tobacco Use Types Packs/Day Years Used Date Never Assessed Sex Assigned at Date Recorded Female 04/12/2019 2:19 PM EST documented as of this encounter Plan of Treatment Upcoming Encounters Date Type Specialty Care Team Description 11/30/2021 Office Visit Family Medicine Kevin Miranda MD [address] [place], [place] [address] (Wo rk) Scheduled Orders Name Type Priority Associated Diagnoses Order S chedule DEXA Bone Density Central Imaging Routine Or dered: 04/13/1999 documented as of this encounter Visit Diagnoses Not on filedocumented in this encounter Care Teams Mechanical Car Checker Relationship Specialty Start Date End Date Laurie Elias NP PCP - General Family Medicine 03/02/1811/19/19 documented as of this encounter
--- OUTSIDE RECORDS SUMMARY | 2021-11-18 12:30 | XMS_ITS | Encounter Summary ---
:1945 Author Organization [facility] Address [address] [facility], [address] [place] [address] Care Team Providers Name Role Phone Lisa Sotelo MD Primary Care Provider Encounter Details Date Type Department Care Team Description [facility]/28[facility]2016 [facility] [address] [place] [address], [address] [place] [address] [address] [facility] Ana M Bowen, [place] [address] Social History Tobacco Use Types Packs/Day Years Used Date Former Smoker Sex Assigned at Date Recorded Female 04/12/2019 2:19 PM EST documented as of this encounter Plan of Treatment Upcoming Encounters Date Type Specialty Care Team Description 11/30/2021 Office Visit Family Medicine Kevin Miranda MD [address] [place] [address] (Wo rk) documented as of this encounter Visit Diagnoses Not on filedocumented in this encounter Care Teams Railroad Inspector Relationship Specialty Start Date End Date Lisa Sotelo MD PCP - General Family Medicine 08/19/16 03/01/[address] [place] [address] documented as of this encounter
[2021-11-18 14:55] LABS: Bilirubin Negative (Negative); Blood Small (Negative); Clarity Sl Cloudy (Clear); Glucose Negative (Negative); Ketones Negative (Negative); Leukocyte Esterase Large (Negative); Nitrite Negative (Negative); Urobilinogen 0.2 EU/dL (Up TO 0.2)
[2021-11-18 15:04] LABS: Bacteria Rare HPF (Negative); C & S Indicated? Yes; Casts Negative LPF (Negative); Crystals Negative HPF (Negative); Epithelial Cells Rare HPF (Negative); Mucus Negative (Negative); WBC >50 HPF (0-5)
== END 2021-11-18 12:22 | disposition home or self-care (01) ==
LOC: NCHCN 12:21
PROVIDERS: PCP Family Medicine; Visit Provider Family Medicine
DX: R10.32 Left lower quadrant pain (principal)
CPT/HCPCS: 87077; 81003; 81015; 87086; 87186

== ENCOUNTER 2021-12-01 19:02 | Outpatient (REF) | payer MEDICARE, OTHER, SELFPAY ==
[2021-12-01 15:10] LABS: Bilirubin Negative (Negative); Blood Moderate (Negative); Clarity Cloudy (Clear); Glucose Negative (Negative); Ketones Negative (Negative); Leukocyte Esterase Moderate (Negative); Nitrite Negative (Negative); Urobilinogen 0.2 EU/dL (Up TO 0.2); pH 6.5 (5-8)
[2021-12-01 15:18] LABS: WBC >50 HPF (0-5)
[2021-12-01 15:19] LABS: Bacteria Many HPF (Negative); C & S Indicated? Yes; Casts Negative LPF (Negative); Crystals Negative HPF (Negative); Epithelial Cells Negative HPF (Negative); Mucus Negative (Negative)
== END 2021-12-01 19:03 | disposition home or self-care (01) ==
LOC: NCHCN 19:02
PROVIDERS: PCP Family Medicine; Visit Provider Family Medicine
DX: N39.0 Urinary tract infection, site not specified (principal)
CPT/HCPCS: 81003; 81015; 87086

== ENCOUNTER → 2021-12-03 02:40 | Outpatient (CLI) | payer MEDICARE, OTHER, SELFPAY ==
[2021-12-03] MEDS: Barium Sulfate 2% W/V-Berry Smoothie 450 ML BTL 900 ML PO (12:21)
[2021-12-03 12:39] LABS: CREATININE 0.9 mg/dL (0.55-1.02); Estimated GFR 67.08 (mL/min/1.73m2)
--- NOTE | 2021-12-03 14:00 | DI.CT_ITS ---
Exam(s) CT ABDOMEN PELVIS W EXAM: CT ABDOMEN PELVIS W INDICATION: LLQ ABD PAIN, R10.23; H/O DIVERTICULITIS, Z87.19. COMPARISON: No exams were available for comparison TECHNIQUE: FINDINGS: CT examination of the abdomen and pelvis was performed with intravenous infusion of 80 cc of Omnipaqu e 350. Images obtained through the lung bases are unremarkable. There is a large hiatal hernia containing the gastric fundus period The liver is unremarkable in appearance. Gallbladder and bile ducts are CT normal. Pancreas appears normal. Spleen is unremarkable in appearance. Adrenals appear normal. The kidneys are unremarkable with no evidence of hydronephrosis, nephrolithiasis, or renal mass.. Ur inary bladder unremarkable. Abdominal aorta is of normal diameter and no major vascular abnormality is seen. No abdominal wall hernia. No abdominal or pelvic adenopathy. Uterus is atrophic or absent. Appendix is normal. No evidence of diverticulitis or bowel obstruction. IMPRESSION: No evidence of acute intra-abdominal process. RADIATION DOSE DELIVERED: 588.79mGy.cm Total DLP 588.79mGy.cm Total DLP !Error CTDIvol RADIATION OPTIMIZATION: All CT scans at this facility use at least one of these dose optimization te chniques: automated exposure control; mA and/or kV adjustment per patient size (includes targeted exa ms where dose is matched to clinical indication); or iterative reconstruction.
[2021-12-03] MEDS: Omnipaque 350 MG/ML 500 ML BTL-Imaging package IJ (14:19)
== END ==
PROVIDERS: PCP Family Medicine; Visit Provider Family Medicine
DX: R10.32 Left lower quadrant pain (principal)
CPT/HCPCS: 74177; 82565

== ENCOUNTER 2021-12-05 15:21 | Emergency (ER) | payer MEDICARE, OTHER, SELFPAY ==
--- OUTSIDE RECORDS SUMMARY | 2021-12-05 15:28 | XMS_ITS | Encounter Summary ---
:1945 Author Organization [facility] [place] [address] Care Team Providers Name Role Phone Estee Diaz MD Primary Care Provider Encounter Details Date Type Department Care Team Description 03/17/2021 TH Visit Orthopaedics at Mari [facility]es tat post total (TeleHealth) MONAE Stafford replacement of right [address] [facility] [place] [address] [address] [place] [id number] Social History Tobacco Use Types Packs/Day Years [...] similarly to an in-clinic office visit. Call: [phone] Date of Surgery: 12/16/20 Procedure: Right total [...] Encounters Date Type Specialty Care Team Description 12/16/2021 Office Visit Orthopaedics Nish Chávez M D [address] [place] [phone] (Wo raine) 12/21/2021 Office Visit Sports Medicine Juno Massey MD [address] [place], [place] [address] (Wo raine) documented as of this encounter Visit Diagnoses Diagnosis Status post total replacement of right h ip documented in this encounter Care Teams Safety Supervisor Relationship Specialty Start Date End Date Estee Diaz MD PCP - General Family Medicine 10/28/20 [address] [place] [address] documented as of this encounter
--- OUTSIDE RECORDS SUMMARY | 2021-12-05 15:28 | XMS_ITS | Encounter Summary ---
:1945 Author Organization [facility] [place] [address] Care Team Providers Name Role Phone Estee Diaz MD Primary Care Provider Reason for Visit Reason Onset Date Comments Follow-up 12/22/2020 low grade fever Encounter Details Date Type Department Care Team Description 12/22/2020 Telephone Orthopaedics at Verena Burt Foll ow-up (low grade [place] Becky RN fever) [address] [place] [address] Social History Tobacco Use Types Packs/Day [...] AM Caller: Molly Rios 1945 Telephone Information: [phone] (home) Problem/Question: Patient contacted clinic relaying that [...] Nish Chávez M D [address] [place], [place] [address] (Wo rk) 12/21/2021 Office Visit Sports Medicine Juno Massey MD [address] [place], [place] [address] (Wo rk) documented as of this encounter Visit Diagnoses Not on filedocumented in this encounter Care Teams Binder Layer Relationship Specialty Start Date End Date Estee Diaz MD PCP - General Family Medicine 10/28/20 [address] [place] [address] documented as of this encounter
--- OUTSIDE RECORDS SUMMARY | 2021-12-05 15:28 | XMS_ITS | Encounter Summary ---
:1945 Author Organization [facility] [place] [address] Care Team Providers Name Role Phone Estee Diaz MD Primary Care Provider Reason for Visit Reason Onset Date Comments Questions 12/29/2020 Encounter Details Date Type Department Care Team Description 12/29/2020 Telephone Orthopaedics at [facility] Robert Floyd, RN Questions [address] [place] [address] Social History Tobacco Use Types Packs/Day [...] AM Caller: Molly Rios 1945 Telephone Information: [phone] (home) Problem/Question: Patient is S/P right CAREY [...] with her PCP. I spoke with Yasir Marcelino PA he agreed with stopping the meloxicam and [...] Nish Chávez M D [address] [place], [place] [address] (Wo rk) 12/21/2021 Office Visit Sports Medicine Juno Massey MD [address] [place] [place], [place] [address] (Wo rk) documented as of this encounter Visit Diagnoses Not on filedocumented in this encounter Care Teams Domestic Helper Relationship Specialty Start Date End Date Estee Diaz MD PCP - General Family Medicine 10/28/20 [address] [place] [address] documented as of this encounter
--- OUTSIDE RECORDS SUMMARY | 2021-12-05 15:28 | XMS_ITS | Encounter Summary ---
:1945 Author Organization [facility] [place] [address] Care Team Providers Name Role Phone Estee Diaz MD Primary Care Provider Encounter Details Date Type Department Care Team Description 01/05/2021 Orders Only Orthopaedics at Nish Herrera, Stat us post right hip West MD replacement [address] [place] [address] [phone] [place] [address] Social History Tobacco Use Types Packs/Day Years [...] Nish Chávez M D [address] [place], [place] [address] (Wo rk) 12/21/2021 Office Visit Sports Medicine Juno Massey MD [address] [facility] [place], [place] [address] (Wo rk) documented as of [...] who have questions please contact the health day care assistant that requested your imaging first. ? Electronically signed by: Jyoti Gutiérrez MD, [facility] ([phone]), at 01/16/2021 12:17 PM Narrative 01/16/2021 12:17 [...] ho have questions please contact the health day care assistant that requested your imaging first. Nish Chávez MD IMG DX ORDERABLES documented in this encounter Visit Diagnoses Diagnosis Status post right hip replacement Hip joint replacement by other means Status post right hip replacement Hip joint replacement by other means documented in this encounter Care Teams Media Monitor Relationship Specialty Start Date End Date Estee Diaz MD PCP - General Family Medicine 10/28/20 [address] [facility] [address] [place] [address] documented as of this encounter
--- OUTSIDE RECORDS SUMMARY | 2021-12-05 15:28 | XMS_ITS | Encounter Summary ---
:1945 Author Organization [facility] [place] [address] Care Team Providers Name Role Phone Estee Diaz MD Primary Care Provider Encounter Details Date Type Department Care Team Description 01/16/2021 Ancillary Procedure Radiology XRay at Nish Chávez S tatus post right the Multi-Specialty MD hip replacement [facility] at [facility] [address] [place] [address] Social History Tobacco Use Types Packs/Day Years [...] Orthopaedics Nish Chávez M D [address] [place], [place] [address] (Wo rk) 12/21/2021 Office Visit Sports Medicine Juno Massey MD [address] [facility] [place], [place] [address] (Wo rk) documented as of [...] have questions please contact the health healthcare financial analyst that requested your imaging first. ? Electronically signed by: Jyoti Gutiérrez MD, [facility] ([phone]), at 01/16/2021 12:17 PM Narrative 01/16/2021 12:17 [...] have questions please contact the health healthcare financial analyst that requested your imaging first. Electronically signed by: Jyoti Gutiérrez MD, [facility] ([phone]), at 01/16/2021 12:17 PM Nish Chávez MD IMG DX ORDERABLES documented in this encounter Visit Diagnoses Diagnosis Status post right hip replacement Hip joint replacement by other means documented in this encounter Care Teams Drill Foreman Relationship Specialty Start Date End Date Estee Diaz MD PCP - General Family Medicine 10/28/20 [address] [place] [address] documented as of this encounter
--- OUTSIDE RECORDS SUMMARY | 2021-12-05 15:28 | XMS_ITS | Clinical Summary ---
:1945 Author Organization [facility] [place] [address] Care Team Providers Name Role Phone Estee [...] mouth. 0 Active acids 500 mg Capsule [id number]-oreg Take by mouth. 0 Active -capryl 100 [...] Varicose veins 08/10/1990 Injury of head 05/14/1984 Encounters Date Type Specialty Care Team Description 12/01/2021 Orders Only Orthopaedics Nish Chávez MD Status pos t total replacement of right hip from Last 3 Months Family History Medical History Relation Comments Coronary [...] Nish Chávez M D [address] [place] [address] (Wo rk) 12/21/2021 Office Visit Sports Medicine Jnuo Massey MD [address] [facility] [place] [address] (Wo raine) Health Maintenance Due Date Last Done Comments Covid-19 Vaccine (#1) 1945 Pneumoccocal Vaccine: 65+ (1 - PCV) 1953 Hepatitis C Screening 1965 Tdap adult 1966 Tetanus vaccine 1966 Breast Cancer Share Decision Needed 1987 Colonoscopy 02/04/1992 Breast Cancer screening 1997 Zoster vaccine (1 of 2) 1997 Advance Directive 2002 Bone Density Scan 02/04/2012 Influenza (Flu) vaccine (1 of 1 - Influenza standard 10/15/2021 series) Medical Devices Implanted Type Area Egg Trayer Device Shelf Model / Identifier Expiration Serial / Date Lot Head Femoral Hip 32mm -3mm Offset 01/27 Tpr Zircnm Oxinium ([id number]) (Autoreq) - [id number] IMPLANTS Right: [employer] - 09/22/2030 [id number] / Implanted: Qty: 1 on 12/16/2020 by Nish Chávez MD at [facility] Hosp ital Hip FERR[employer] NEPH / [id number] Insurance Payer Benefit Plan / Subscriber ID Effective Phone Address T ype Group Dates [facility] MEDIC[facility] [id number] 2020-Prese [phone] [address] [place] [id number] MEDICARE MEDICARE PART A [id number] 2020-Prese [phone] [place] [id number] Advance Directives Documents on File Type Date Recorded Patient Welt Cutter Explanati on Personal Welt Cutter 11/04/2020 12:58 PM jeff choi Latest Code Status on File Code Status Date Activated Date Inactivated Comments Attempt Cardiopulmonary Resuscitation - 12/16/2020 9:24 AM 021 1:14 PM Inpatient Code Status decision made by: Patient Care Teams Boring Inspector Relationship Specialty Start Date End Date Estee Diaz MD PCP - General Family Medicine 10/28/20 [address] [place] [address]
--- OUTSIDE RECORDS SUMMARY | 2021-12-05 15:28 | XMS_ITS | Encounter Summary ---
:1945 Author Organization [facility] Address [facility] [address] [place] [address] Care Team Providers Name Role Phone Estee [...] Expiration Date Visits Requ ested Visits Authorized [id number] 1 1 Encounter Details Date Type Department Care Team Description 12/16/2020 - Hospital Encounter Med Surg Unit at Nish Chávez Sta tus post total 12/17/2020 APD replacement of right [address] [place], [place] [address] [address] [place], [place] [phone] [address] Social History Tobacco Use Types Packs/Day Years [...] - 12/17/2020 9:55 AM EDT [facility] Discharge Summary Admit date: 12/16/2020 Expected [...] you were doing while at [facility]. Be sure to understand your pain medication plan before you leave the hospital and remember to tow picker all prescriptions at the pharmacy. DVT [...] 11:30 AM Mari Sandoval PA Orthopaedics at [facility] Arrive at: [facility] Level 02/20/2021 1:00 PM Mari Sandoval PA Orthopaedics at [facility] Arrive at: [facility] Level Future Orders Complete By Expires Referral to Home Health - at DISCHARGE [[id number] CPT(R)] As directed Process Instructions: Scheduling Instructions: Comments: DOCUMENTATION FOR VNA SERVICES (INCLUDING THOSE PATIENTS WITH MEDICARE COVERAGE REQUIRING HOME VNA SERVICES AND/OR HOSPICE SERVICES) PATIENT'S LOCATION: Molly Rios [address] [place] [id number] (home) Cell: Telephone Information: Process Mechanic's Name: Medhat/Self In discussion with the attending physician, it is certified that this patient is under their care and that they, or a Nurse Practitioner,Clinical Nurse specialist or Physician Sharepoint Consultant who is working directly with them, had [...] for managing ADL's. HOME HEALTH CARE AGENCY: [facility] PHONE: [phone] FAX: [phone] Start of care: 24-48 hours post dc [...] patient'sPCP: MD Toni Suggs DR [address] / [facility] [id number] All A agencies which cover the area of patient's residence have been reviewed, either verbally or in writing, and patient/family have chosen the home health care agency noted Questions: Agency name and contact information: [facility] Care Patient location post discharge: home What services are requested: Physical Therapy Occupational Therapy Start date: Responsible MD post discharge contact info: PCP Inpatient Provider Contact Information: For questions regarding this summary or this inpatient hospitalization, please call the [facility] Orthopedic Office at [phone]. MONAE Lindquist 12/17/2020 documented in this encounter [...] you leave the hospital and remember to tow picker all prescriptions at the pharmacy. DVT [...] PA - 12/17/2020 9:51 AM EDT [facility] ORTHOPAEDIC PROGRESS NOTE Admit Date: 12/16/2020 [...] referrals are placed. Patient requests referral to [facility] [employer]. PHONE: [phone] FAX: [phone] Expected date of discharge: 12/17/20 PT/OT CAREY Referral routed to the Lead Project Engineer for matching with agency/vendor and to provide [...] Evaluation Leval of Eval Complexity: Low - 14927 Diagnosis: S/P right total hip arthroplasty; Dr. [...] H25.13 ??? Plantar fasciitis M72.2 ??? Problem [id number] ??? Routine adult health maintenance Z00.00 ??? [...] IADLs: Dressing Dressing: Lower Body, Upper Body Place Change Roof Bolter Top: Modified Independent Underwear: Supervision, Verbal Cues, [...] Clinical Decision Making Complexity Score: Low - 24574 Rola Kaufman OT 12/16/2020 Occupational Therapy Rehabilitation [...] turn level surfaces using a FWW at [facility] Comments: Sit / Stand: Supervision, Assist of 1 Assistive Equipment: FWW Surfaces Used: bed Stairs: Assist of 1, Contact Guard Assistive Equipment: FWW Number of Stairs: 4 x 6 inch at [facility] using BUE handrails ( presented for education [...] exercise review Ortho Exercises Row Name 12/16/20 1656 Supine Heel Slide -- Gluteal Set x5 Quad Set x5 Hip Abduction / Adduction -- Ankle [place] x5 Seated Hip Flexion -- Knee Flexion [...] good functional mobility using a FWW at [facility] and is safe to discharge home with [...] Diversional Activities: smartphone television Pain Management Interventions: [id number] dosing utilized cold applied Problem: Postoperative Nausea [...] care provider on file: Estee Diaz MD [phone] Advance Directive on file and Code Status: <no information>, Attempt Cardiopulmonary Resuscitation - Inpatient If AD's have not been completed Medhat would be surrogate decision maker per [place] surrogate decision making law. (Only good for 180 days) Any patient receiving care at [facility] must abide by [place] law. The hierarchy for surrogate decision making [...] (i) The agent with financial power of calibration laboratory technician or a conservator appointed in accordance with RSA 464-A. (j) The guardian of the patient???s estate. Patient???s Functional Status:Pt states she is independent with all adls. She drives Living Situation:lives with in a 2 story home but living area all on first floor. 2 cats 3 DIOGENES Has f[address] [facility] [address] Supports:family BH/Substance use: per pt Denies any [...] home via personal vehicle when medically ready. metal tile setter/Slumber Room Attendant will continue to follow patient???s progress and remain available if situation changes for coordination of care, psychosocial support and/or discharge planning. Office of Care Management CM: Debbie Mejia RN Op Note - Nish Chávez MD - 12/16/2020 10:11 AM EDT [facility] Operative Note [facility] [address] [place] [address] Patient Name: Molly Rios : [id number] MR#: [id number] Case Date: 12/16/2020 Surgery Start Time: 1010 Surgery Stop Time: 1056 Date: 12/16/2020 Surgeon: Nish Chávez MD Sharepoint Consultant: MONAE Jessica Design Printing Machine Setter: Manjit Tineo CRNA Anesthesia: Right Pre-operative diagnosis: Right hip osteoarthritis, severe Body mass index is 19.16 kg/m??. Post-operative diagnosis: Same Surgical Procedure Performed: Injection right hip with marcaine 0.25% with epi, 4 mg morphine, ketorolac 30 mg, and Solu-Medrol (40 mg) into skin, subcutaneous and deep tissues, and joint space. Right total hip arthroplasty, anterior Hueter approach with [place] table Right hip intraoperative radiologic examination Findings: [...] performed. Patient was positioned supine on the [place] table, both feet and ankles were padded [...] liner was placed and impacted according to ultrasonic seaming machine operator's instructions. Any impinging osteophytes were removed. Attention [...] and laterally. At the same time, the oncology physician assistant leaned against the thigh to optimize [...] back to the hospital bed from the [place] table and boots wereremoved. No abduction pillow was placed. The patient returned to the recovery room in stable condition. The environmental assistant, MONAE Jessica, worked under my direction for the duration of the operativesession. The oncology physician assistant meticulously prepped the operative site and maintained the best possible exposure of anatomy for the procedure for its duration. Implant Information: Implant Name Type Inv. Item Serial No. Orthopaedic General Lot No. LRB No. Used Action SHELL ACET HIP 50MM POR 3 HOLE TI R3 ([id number]) (AutoReq) - [id number] IMPLANTS SHELL ACET HIP 50MM POR 3 HOLE TI R3 ([id number]) (AutoReq) [employer] NEPHEW - CLEMENTS NEPH [id number] Right 1 Implanted LINER ACET HIP [id number] 0D POLY R3 ([id number]) (AutoReq) - [id number] IMPLANTS LINER ACET HIP [id number] 0D POLY R3 ([id number]) (AutoReq) [employer] - CLEMENTS NEPH [id number] Right 1 Implanted STEM FEMORAL HIP SZ 3 PROX 135D POR CLLR STND OFST TI ([id number]) (AutoReq) - [id number] IMPLANTS STEMFEMORAL HIP SZ 3 PROX 135D POR CLLR STND OFST TI ([id number]) (AutoReq) [employer] - CLEMENTS [id number] Right 1 Implanted HEAD FEMORAL HIP 32MM -3MM OFFSET 12/14 TPR ZIRCNM OXINIUM ([id number]) (AutoReq) - [id number] IMPLANTSHEAD FEMORAL HIP 32MM -3MM OFFSET 12/14 TPR ZIRCNM OXINIUM ([id number]) (AutoReq) [employer] - CLEMENTS NEPH [id number] Right 1 Implanted TG 0 RG 0 documented in this encounter Plan of Treatment Upcoming Encounters Date Type Specialty Care Team Description 12/16/2021 Office Visit Orthopaedics Nish Chávez M D [address] [place], [place] [address] (Wo rk) 12/21/2021 Office Visit Sports Medicine Juno Massey MD [address] PRIMARY CARE [place], [place] [address] (Wo rk) documented as of [...] procedure are in the results section. MODIFIER BARRINGTON & 12/16/2020 9:38 Trochanteric bursitis NEPHEW - R3 AM EDT of left hip ACETABULAR CUP Primary osteoarthritis of right hip Pain in right hip MODIFIER BARRINGTON & 12/16/2020 9:38 Trochanteric bursitis NEPHEW - [...] City/State/ZIP Code Phon e Number LABORATORY [address] [place], [place] [address] (ABNORMAL) Differential, Automated (12/17/2020 6:59 AM EDT) Patholo gist Method Time Signature Neutrophils % 83.0 % LABORATORY Neutr Abs (ANC) 12.76 (H) 1.70 - 6.10 LABORATORY x10(3)/mc L Lymphocytes % 6.6 % LABORATORY Lymphocytes Abs 1.0 0.9 - 3.2 DAY x10(3)/ LABORATORY L Monocytes % 9.9 % LABORATORY Monocyte Abs 1.5 (H) 0.3 - 0.9 DAY x10(3)/mc LABORATORY L Eosinophils % 0.1 % LABORATORY Eosinophils Abs 0.0 0.0 - 0.4 DAY x10(3)/ LABORATORY L Basophils % 0.2 % LABORATORY Basophils Abs 0.0 0.0 - 0.1 x10(3)/ LABORATORY L Immature Gran % 0.20 % LABORATORY Comment: Immature granulocytes(IG's)percentage an d absolute count will include metamyelocytes, myelocytes, and promyelo cytes. Blood smears from CBCs yielding IG's will be scanned manually for juan kang. If this scan disagrees with the automated IG or if promyelocytes are not ed, a manual differential will be performed. Lesa Gran Abs 0.03 0.00 - 0.04 x10(3)/mcL LABORATORY Specimen Anatomical Collection Method Collection Time Receive d Time (Source) Location / / Volume Laterality Blood 12/17/2020 6:59 AM 1 6:59 EDT AM EDT Resulting Agency Comment Spec In Lab Mari [facility] HEMATOLOGY ORDERABLES Performing Organization Address City/State/ZIP Code Phon e Number LABORATORY [address] [place], [place] [address] (ABNORMAL) Hemogram (12/17/2020 6:59 AM EDT) P athologist Signature WBC 15.4 (H) 4.0 - 9.5 DAY x10(3)/mcL LABORATORY RBC 3.96 (L) 4.00 - DAY 5.21 LABORATORY x10(6)/mcL Hemoglobin 12.5 11.7 - DAY 15.5 g/dL LABORATORY Hematocrit 36.6 35.7 - 45.8 % LABORATORY MCV 92.4 82.6 - DAY 94.4 fL LABORATORY MCH 31.6 27.1 - DAY 32.0 pg LABORATORY MCHC 34.2 31.7 - DAY 35.0 g/dL LABORATORY Platelets 263 145 - 357 x10(3)/mcL LABORATORY RDWSD 45.4 37.0 - DAY 46.0 fL LABORATORY RDWCV 13.4 11.5 - 14.1 % LABORATORY MPV 10.1 7.6 - 12.9 fL LABORATORY Specimen Anatomical Collection Method Collection Time Receive d Time (Source) Location / / Volume Laterality Blood 12/17/2020 6:59 AM 1 6:59 EDT AM EDT Resulting Agency Comment Spec In Lab Mari [facility] HEMATOLOGY ORDERABLES Performing Organization Address City/State/ZIP Code Phon e Number LABORATORY [address] [place], [place] [address] (ABNORMAL) Basic Metabolic Panel (non-fasting) (12/17/2020 6:59 AM EDT) P athologist Signature Glucose Lvl 136 65 - 199 mg/dL LABORATORY Comment: Diabetes: >=200 mg/dL plus symp toms BUN 10 8 - 18 mg/dL LA [facility] Creatinine 0.48 (L) 0.70 - 1.20 mg/dL LABORATORY Sodium 137 135 - 145 mmol/L [facility] Potassium 4.0 3.5 - 5.0 mmol/L [facility] Comment: Please note: ??Patients with WBC [...] ABORATORY Calcium 9.2 8.5 - 10.5 mg/dL [facility] Estimated GFR 97 >=60 mL/min/1.73 m?? [facility] Comment: This patient? s estimated glomerular [...] Organization Address City/State/ZIP Code Phon e Number [facility] [address] [place], [place] [address] XR Fluoro No Rad [...] 13 58 (Given - Provider: Rosalia Pritchard RN)170 (Given - Provider: Rosalia Pritchard RN)2042 (Given - Provider: Татьяна Lundy RN)2321 (Given - Provider: Татьяна Lundy RN) 040 [...] ketorolac (Toradol) (15 mg/mL) injection 15 mg 1701 (Given - Provider: Rosalia Pritchard RN)2321 (Given - Provider: Татьяна Lundy RN) 040 (Given - Provider: Татьяна Lundy RN)0941 (Given [...] Lundy RN) 0831 (Given - Provider: Jeanette Mckeon, RN) 1 capsule, Oral, 2 TIMES DAILY, First do se on Tue12/16/20 at 1330, Until Discontinued, Routine pantoprazole EC (Protonix) tablet 40 mg 1358 (Given - Provider: Rosalia Pritchard, JANELL) 0831 (Given - Provider: Jeanette rdz, JANELL) 40 mg, Oral, DAILY, First dose on Tue at 1330, Until Discontinued, DO NOT CRUSH OR OPEN, Routine senna-docusate (Pericolace) 8.6-50 mg per tablet 1 tablet 1330 (Not Given - Provider: Rosalia Pritchard RN - Reason: Patient/family refused)2043 (Given - Provider: Татьяна Lundy RN) 0831 (Given - Provider: Jeanette rdz, [...] Lundy RN) 0900 (Given - Provider: Jeanette Mckeon, JANELL) 3 mL, Intravenous, EVERY 12 HOURS SCHEDU LED (2 times per day), First dose on Tue12/16/20 at 1330, Until Discontinued, Routine Continuous Medication Order 12/15/2020 12/16/2020 12/17/2020 lactated ringers infusion (CANCELED) 084 5 (New Bag - Provider: Ro Pablo, JANELL)1059 (Paused - Provider: Manjit Tineo CRNA - Comment: Switch to gravity)1100 (New Bag - Provider: Manjit Tineo CRNA)1118 (New Bag - Provider: Jamie Henderson, JANELL) 1,000 mL, at 50 mL/hr, Intravenous, CONT [...] bowel movement within 72 hours If multiple SD N bowel medications ordered, start with Miralax, [...]
Routine documented in this encounter Care Teams Car Manager Relationship Specialty Start Date End Date Estee Diaz MD PCP - General Family Medicine 10/28/20 [address] [place] [address] documented as of this encounter
--- OUTSIDE RECORDS SUMMARY | 2021-12-05 15:28 | XMS_ITS | Encounter Summary ---
:1945 Author Organization [facility] Address [facility] [place] [address] Care Team Providers Name Role Phone Estee Diaz MD Primary Care Provider Reason for Referral Physical Therapy (Routine) - Closed Specialty Diagnoses / Procedures Referred By Contact Refer red To Contact Physical Therapy Diagnoses Other urinary incontinence Nish Chávez MD [facility] [address] [address] [place] [address] Fax: Referral ID Status Reason Start Date Expiration Date Visits V isits Requested Authorized [id number] Closed Evaluate and 06/10/2021 12/07/2021 12 12 Treat Reason for Visit Reason Comments Follow-up RT THR 12/16/2020 Encounter Details Date Type Department Care Team Description 06/10/2021 Office Visit Orthopaedics at Nish Herrera Othe r urinary incontinence (Primary Dx); Brett Pena MD Trochanteric bursitis of left hip; [address] Presence of [place] [address] [phone] [place] [address] Social History Tobacco Use Types Packs/Day Years [...] right side, however she went to a horticulture instructor who showed her some stretches and [...] Orthopaedics Nish Chávez M D [address] [place], [place] [address] (Wo rk) 12/21/2021 Office Visit Sports Medicine Juno Massey MD [address] [facility]IMARY CARE [place], [place] [address] (Wo rk) Scheduled Referrals Name [...] means documented in this encounter Care Teams It Security Consultant Relationship Specialty Start Date End Date Estee Diaz MD PCP - General Family Medicine 10/28/20 [address] [place] [address] documented as of this encounter
--- OUTSIDE RECORDS SUMMARY | 2021-12-05 15:28 | XMS_ITS | Encounter Summary ---
:1945 Author Organization [facility] [place] [address] Care Team Providers Name Role Phone Estee Diaz MD Primary Care Provider Reason for Visit Reason Onset Date Comments Other 06/15/2021 US guided hip inject ion Encounter Details Date Type Department Care Team Description 06/15/2021 Telephone Orthopaedics at Lake[facility] Haw[facility] O [facility] (US guided hip [place] Day RN injection) [facility] [place] [address] Social History Tobacco Use Types Packs/Day [...] PM Caller: Molly Rios 1945 Telephone Information: [phone] (home) Problem/Question: The patient left a message [...] Nish Chávez M D [address] [place], [place] [address] (Wo rk) 12/21/2021 Office Visit Sports Medicine Juno Massey MD [address] [facility]ARE [place], [place] [address] (Wo rk) documented as of this encounter Visit Diagnoses Not on filedocumented in this encounter Care Teams Flume Worker Relationship Specialty Start Date End Date Estee Diaz MD PCP - General Family Medicine 10/28/20 [address] [place] [address] documented as of this encounter
--- OUTSIDE RECORDS SUMMARY | 2021-12-05 15:28 | XMS_ITS | Encounter Summary ---
:1945 Author Organization [place] [address] Care Team Providers Name Role Phone Estee Diaz MD Primary Care Provider Encounter Details Date Type Department Care Team Description 12/29/2020 [facility] [address] [facility] [place] [address] Social History Tobacco Use Types Packs/Day [...] Nish Chávez M D [address] [place], [place] [address] (Wo rk) 12/21/2021 Office Visit Sports Medicine Juno Massey MD [address] PRIMARY CARE [place], [place] [address] (Wo rk) documented as of this encounter Visit Diagnoses Not on filedocumented in this encounter Care Teams Framing Consultant Relationship Specialty Start Date End Date Estee Diaz MD PCP - General Family Medicine 10/28/20 [address] [place] [address] documented as of this encounter
--- OUTSIDE RECORDS SUMMARY | 2021-12-05 15:28 | XMS_ITS | Encounter Summary ---
:1945 Author Organization [facility] [address] Care Team Providers Name Role Phone Estee Diaz MD Primary Care Provider Encounter Details Date Type Department Care Team Description 01/19/2021 Notes Only Orthopaedics at Nish Tinoco MD [address] [place] [address] [place] [address] [phone] (Wo rk) Social History Tobacco Use Types Packs/Day Years Used Date Former Smoker Quit: 1988 Smokeless Tobacco: Never Used Alcohol Use Standard Drinks/Week Comments Yes 4 (1 standard drink = 0.6 oz pure alcoho l) Sex Assigned at Date Recorded Not on file documented as of this encounter Progress Notes Verena Hinojosa RN - 01/19/2021 8:06 AM EST Prior auth received through [employer] for diclofenac sodium 3% gel as prescribed by Abdulaziz Sandoval PA-C. Completed prior auth and awaiting response from insurance company. Denial received from insurance company with recommendations to trial diclofenac 1% gel first. documented in this encounter Plan of Treatment Upcoming Encounters Date Type Specialty Care Team Description 12/16/2021 Office Visit Orthopaedics Nish Chávez M D [address] [place], [place] [address] (Wo rk) 12/21/2021 Office Visit Sports Medicine Juno Massey MD [address] PRIMARY CARE [place], [place] [address] (Wo rk) documented as of this encounter Visit Diagnoses Not on filedocumented in this encounter Care Teams Schedule Clerk Relationship Specialty Start Date End Date Estee Diaz MD PCP - General Family Medicine 10/28/20 [address] [place] [address] documented as of this encounter
--- OUTSIDE RECORDS SUMMARY | 2021-12-05 15:28 | XMS_ITS | Encounter Summary ---
:1945 Author Organization [facility] [place] [address] Care Team Providers Name Role Phone Estee Diaz MD Primary Care Provider Reason for Referral Physical Therapy (Routine) - Closed Specialty Diagnoses / Procedures Referred By Contact Refer red To Contact Diagnoses Primary osteoarthritis of right hip Pain in right hip Status post right hip replacement Nish Chávez MD Physical Therapy, [facility] [address] [address] [place] [address] ,[facility] [address] [place] [address] Phone: Fax: Referral ID Status Reason Start Date Expiration Date Visits V isits Requested Authorized [id number] Closed Evaluate and 12/23/2020 06/21/2021 12 12 Treat Encounter Details Date Type Department Care Team Description 12/23/2020 Orders Only Orthopaedics at Nish Herrera, Stat post right hip replacement (Primary Dx); Brett Pena MD Primary osteoarthritis of right hip; [address] [place] [address] [phone] [place] [address] Social History Tobacco Use Types Packs/Day Years [...] Orthopaedics Nish Chávez M D [address] [place], [place] [address] (Wo rk) 12/21/2021 Office Visit Sports Medicine Juno Massey MD [address] PRIMARY CARE [place], [place] [address] (Wo rk) Scheduled Referrals Name [...] thigh documented in this encounter Care Teams Protective Signal Repairer Helper Relationship Specialty Start Date End Date Estee Diaz MD PCP - General Family Medicine 10/28/20 [address] [place] [address] documented as of this encounter
--- OUTSIDE RECORDS SUMMARY | 2021-12-05 15:28 | XMS_ITS | Encounter Summary ---
:1945 Author Organization [facility] [place] [address] Care Team Providers Name Role Phone Estee Diaz MD Primary Care Provider Encounter Details Date Type Department Care Team Description 01/16/2021 Office Visit Orthopaedics at Mari Reveles tatus post total replacement of right hip; MONAE Stafford Trochanteric bursitis of left hip; [address] Acute [place] [address] [address] [phone] [place], [place] [address] Social History Tobacco Use Types [...] past. [facility]. I have also provided [...] Nish Chávez M D [address] [place] [address] (Li ni) 12/21/2021 Office Visit Sports Medicine Juno Massey MD [address] [facility] [place] [address] (Wo rk) documented as of this encounter Visit Diagnoses Diagnosis Status post total replacement of right h ip Trochanteric bursitis of left hip Enthesopathy of hip region Acute pain of right knee documented in this encounter Care Teams Chief Crew Scheduler Relationship Specialty Start Date End Date Estee Diaz MD PCP - General Family Medicine 10/28/20 [address] [place] [address] documented as of this encounter
--- OUTSIDE RECORDS SUMMARY | 2021-12-05 15:28 | XMS_ITS | Encounter Summary ---
:1945 Author Organization [facility] [place] [place] [address] Care Team Providers Name Role Phone Estee Diaz MD Primary Care Provider Encounter Details Date Type Department Care Team Description 01/05/2021 Orders Only Cardiology at [facility] Serjio Moon, Premature ventricular [facility] [place] [address] CARDIOLOGY DEPT [phone] [place], [place] [address] Social History Tobacco Use Types [...] Nish Chávez M D [address] [place], [place] [address] (Wo rk) 12/21/2021 Office Visit Sports Medicine Juno Massey MD [address] PRIMARY CARE [place], [place] [address] (Wo rk) Scheduled Orders Name Type Priority Associated Diagnoses Order S chedule EKG 12 Lead ECG Routine Premature ventricular As Nee ded for 6 Occurrences contractions starting 2020 until 01/05/2022 documented as of this encounter Visit Diagnoses Diagnosis Premature ventricular contractions Other premature beats documented in this encounter Care Teams Complaint Adjuster Relationship Specialty Start Date End Date Estee Diaz MD PCP - General Family Medicine 10/28/20 [address] [place] [address] documented as of this encounter
--- OUTSIDE RECORDS SUMMARY | 2021-12-05 15:28 | XMS_ITS | Encounter Summary ---
:1945 Author Organization [place] [address] Care Team Providers Name Role Phone Estee Diaz MD Primary Care Provider Encounter Details Date Type Department Care Team Description 12/18/2020 Telephone Orthopaedics at [facility] Robert Genao, RN 10 [place] [address] Social History Tobacco Use Types Packs/Day [...] Nish Chávez M D [address] [place], [place] [address] (Wo rk) 12/21/2021 Office Visit Sports Medicine Juno Massey MD [address] [facility] [place], [place] [address] (Wo rk) documented as of this encounter Visit Diagnoses Not on filedocumented in this encounter Care Teams Mine Surveyor Relationship Specialty Start Date End Date Estee Diaz MD PCP - General Family Medicine 10/28/20 [address]oni SHETTY [address] [place] [address] documented as of this encounter
--- OUTSIDE RECORDS SUMMARY | 2021-12-05 15:28 | XMS_ITS | Encounter Summary ---
:1945 Author Organization [facility] [place] [address] Care Team Providers Name Role Phone Estee Diaz MD Primary Care Provider Reason for Visit Reason Onset Date Comments Questions 12/19/2020 Encounter Details Date Type Department Care Team Description 12/19/2020 Telephone Orthopaedics at [facility] Robert Floyd RN Questions 10 [facility] [place] [address] Social History Tobacco Use Types Packs/Day [...] AM Caller: Molly Rios 1945 Telephone Information: [phone] (home) Problem/Question: Patient returns call to clinic [...] symptoms worsen patient instructed to contact the hotel operations manager physician at the clinic. Patient expressed understanding of instructions and will contact clinic with further questions or concerns. Verena Hinojosa RN Telephone Encounter - Robert Genao RN - 12/19/2020 9:39 AM EDT Telephone Call 12/19/2020 9:39 AM Caller: Molly Soloan 1945 Telephone Information: [phone] (home) Problem/Question: Pricila is S/P right CAREY-DAA with Dr Chávez on 12/16/20. Patient called today stating she has a red streak from the medial thigh going lateral. Outcome: Patient denies any warmth at the site. Patient denies fever. Pricila will take a picture and send it through [facility]. Plan/Follow up: Patient will send picture. Will call when picture received. Patient will call with any other questions or concerns. Robert Genao RN documented in this encounter Plan of Treatment Upcoming Encounters Date Type Specialty Care Team Description 12/16/2021 Office Visit Orthopaedics Nish Chávez M D [address] [place] [id number] (Wo raine) 12/21/2021 Office Visit Sports Medicine Juno Massey MD [address] [facility]ARE [place], [place] [address] (Wo rk) documented as of this encounter Visit Diagnoses Not on filedocumented in this encounter Care Teams Staff Technologist Relationship Specialty Start Date End Date Estee Diaz MD PCP - General Family Medicine 10/28/20 Toni SHETTY 1 [place] [address] documented as of this encounter
--- OUTSIDE RECORDS SUMMARY | 2021-12-05 15:28 | XMS_ITS | Encounter Summary ---
:1945 Author Organization [facility] [place] [address] Care Team Providers Name Role Phone Estee Diaz MD Primary Care Provider Encounter Details Date Type Department Care Team Description 06/10/2021 Ancillary Procedure Radiology XRay at Nish Chávez S tatus post total the Multi-Specialty MD replacement of right Clinic at [facility] [address] hip [address] [place] [address] Social History Tobacco Use Types Packs/Day Years [...] Nish Chávez M D [address] [place], [place] [address] (Wo rk) 12/21/2021 Office Visit Sports Medicine Juno Massey MD [address] [facility] [place], [place] [address] (Wo rk) documented as of [...] have questions please contact the health career education teacher that requested your imaging first. ? Electronically signed by: Ronald Tejeda MD , [facility] ([phone]), at 06/10/2021 2:10 PM Narrative 06/10/2021 2:10 [...] have questions please contact the health career education teacher that requested your imaging first. Electronically signed by: Ronald Tejeda MD , [facility] ([phone]), at 06/10/2021 2:10 PM Nish Chávez MD IMG DX ORDERABLES documented in this encounter Visit Diagnoses Diagnosis Status post total replacement of right h ip documented in this encounter Care Teams Wrister Relationship Specialty Start Date End Date Estee Diaz MD PCP - General Family Medicine 10/28/20 [address] [place] [address] documented as of this encounter
--- OUTSIDE RECORDS SUMMARY | 2021-12-05 15:28 | XMS_ITS | Encounter Summary ---
:1945 Author Organization [facility] [place] [address] Care Team Providers Name Role Phone Estee Diaz MD Primary Care Provider Encounter Details Date Type Department Care Team Description 07/06/2021 Telephone Surgical Specialties at Gee Younger RN [facility] [place] [address] Social History Tobacco Use Types Packs/Day [...] prescribed antibiotics for any upcoming dental procedure. [employer] Planned Dental Procedure: [...] Nish Chávez M D [address] [place], [place] [address] (Wo rk) 12/21/2021 Office Visit Sports Medicine Juno Massey MD [address] [place], [place] [address] (Wo rk) documented as of this encounter Visit Diagnoses Not on filedocumented in this encounter Care Teams Envelope Folding Machine Operator Relationship Specialty Start Date End Date Estee Diaz MD PCP - General Family Medicine 10/28/20 [address]oni [address]Y [address] [place] [address] documented as of this encounter
--- OUTSIDE RECORDS SUMMARY | 2021-12-05 15:28 | XMS_ITS | Encounter Summary ---
:1945 Author Organization [facility] [place] [address] Care Team Providers Name Role Phone Estee [...] Expiration Date Visits Requ ested Visits Authorized [id number] 1 1 Encounter Details Date Type Department Care Team Description 12/16/2020 Ancillary Procedure Radiology Xray at [facility] [place] [address] Social History Tobacco Use Types Packs/Day [...] Orthopaedics Nish Chávez M D [address] [place], [place] [address] (Li ni) 12/21/2021 Office Visit Sports Medicine Juno Massey MD [address] [facility] CARE [place], [place] [address] (Li ni) documented as of this encounter [...] on filedocumented in this encounter Care Teams Referral Agent Relationship Specialty Start Date End Date Estee Diaz MD PCP - General Family Medicine 10/28/20 [address] [place] [address] documented as of this encounter
--- OUTSIDE RECORDS SUMMARY | 2021-12-05 15:29 | XMS_ITS | Encounter Summary ---
:1945 Author Organization [facility] Address [address] [address] Care Team Providers Name Role Phone Kevin Miranda MD Primary Care Provider Reason for Visit Reason Comments Right Hip Pain Consultation (Routine) - Closed Specialty Diagnoses / Procedures Referred By Contact Refer red To Contact Orthopaedics Diagnoses Rt Hip OA Nish Chávez MD Tomek, Ivan M, MD [address] [place] [address] [place] [address] Fax: Referral ID Status Reason Start Date Expiration Date Visits V isits Requested Authorized [id number] Closed Evaluate and 06/30/2020 06/30/2021 1 1 Treat Encounter Details Date Type Department Care Team Description 07/16/2020 Office Visit Orthopaedics at Nish Herrera, Prim arlette osteoarthritis Brett Pena MD of right hip (Primary [address] [place]x) [place] [address] [phone] [place] [phone] Social History Tobacco Use Types Packs/Day Years [...] at the request of Kevin Miranda MD [address] [place] [address] for evaluation of hip pain HPI: Molly [...] improvement . Physical Therapy : yes at [facility] with slight improvement . Joint Injections: no Imaging: right hip X-ray series were performed on 07/16/20 at [facility] The imaging was available and reviewed in [...] Thus far she has been taking mostly tays-txr-txnfjae anti-inflammatory medication and has been doing some [...] years according to accelerated agingsimulation by the orthotics assistant. I did point out to her that [...] Nish Chávez M D [address] [place], [place] [address] (Wo rk) 12/21/2021 Office Visit Sports Medicine Juno Massey MD [address] [facility] [place], [place] [address] (Wo rk) documented as of this encounter Visit Diagnoses Diagnosis Primary osteoarthritis of right hip - Pr imary Primary localized osteoarthrosis, pelvic region and thigh documented in this encounter Care Teams Lab Manager Relationship Specialty Start Date End Date Kevin Miranda MD PCP - General Family Medicine 06/30/20 10/27/20 1020 [place] [address] documented as of this encounter
--- OUTSIDE RECORDS SUMMARY | 2021-12-05 15:29 | XMS_ITS | Encounter Summary ---
:1945 Author Organization [facility] [place] [address] Care Team Providers Name Role Phone Kevin Miranda MD Primary Care Provider Encounter Details Date Type Department Care Team Description 07/02/2020 Orders Only Orthopaedics at Nish Herrera, Pain in right hip Brett Pena MD (Primary Dx) [address] [place] [address] [address] [phone] [place] [address] Social History Tobacco Use Types Packs/Day Years Used Date Former Smoker Smokeless Tobacco: Never Used Sex Assigned at Date Recorded Not on file documented as of this encounter Plan of Treatment Upcoming Encounters Date Type Specialty Care Team Description 12/16/2021 Office Visit Orthopaedics Nish Chávez M D [address] [place], [place] [address] (Wo rk) 12/21/2021 Office Visit Sports Medicine Juno Massey MD [address] [facility]ARE [place], [place] [address] (Wo rk) documented as of this encounter Visit Diagnoses Diagnosis Pain in right hip - Primary Pain in joint, pelvic region and thigh documented in this encounter Care Teams Hull Molder Relationship Specialty Start Date End Date Kevin Miranda MD PCP - General Family Medicine 06/30/20 10/27/[address] [place] [address] [place] [address] documented as of this encounter
--- OUTSIDE RECORDS SUMMARY | 2021-12-05 15:29 | XMS_ITS | Encounter Summary ---
:1945 Author Organization [facility] [place] [address] Care Team Providers Name Role Phone Estee Diaz MD Primary Care Provider Encounter Details Date Type Department Care Team Description 12/11/2020 Orders Only Primary Care at [facility]aila Schmidt, En counter for RMA preprocedure screening 10 [place] [address] COVID-19 Social History Tobacco Use Types [...] Nish Chávez M D [address] [place], [place] [address] (Wo rk) 12/21/2021 Office Visit Sports Medicine Juno Massey MD [address] [facility] [place], [place] [address] (Wo rk) documented as of this encounter Results COVID-19 PCR (12/12/2020 1:00 PM EDT) [facility] Method Time Signature SARS-CoV-2 Not Detected Not Detected BLANCA RNA [facility] Comment: This result should [...] diagnosis of COVID-19 is performed using the [employer] S-CoV-2 Assay as authorized by the FDA Emergency Use Authorization (EUA). This EUA assay is intended for In-vitro Diagnostic (IVD) use with respiratory sp ecimens such as nasopharyngeal swabs collected from individuals during the ac mary phase of infection. This assay is performed based on the instructions for use provided by [employer], [employer]. and additional guidance provided by CDC and FDA. Testing is performed in the Clinical Genomics and Advanced Technolog y Laboratory within the Department of Pathology and Laboratory Medicine at [facility], certified under the Clinical Laboratory Improvement Amendments [...] clinical management guidance information are available at [facility] CDC Coronavirus Disease 2019 (COVID-19) webpage under Information fo r Healthcare Professionals (https://www.cdc.gov/coronavirus/2019-nc ov/hcp/index.html) Additional information about this and ot her EUA tests can be found in provider and patient fact sheets at the following FDA website: https://www.fda.gov/medical-devices/vrbtyqkvnnp-ydfyxsa-0016-gwrhi-42-wnpczkeyd- mxh-nfmpjikfbspidg-vychwxp-devices/djahn-fnjqpexybsp-cbbd SARS-Cov-2 RNA Source PLANT PROTECTION GUARD Swab [facility] Specimen (Source) Anatomical Collection Method Collection Time Re ceived Time Location / / Volume Laterality Nasopharyngeal Swab 12/12/2020 1:00 12/12 PM EDT 5:42 PM EDT Comment: Symptoms->Asymptomatic Resulting Agency Comment Spec In Lab Jason Escalante MD MICROBIOLOGY - GENERAL ORDER VON Performing Organization Address City/State/[place] [address] documented in this encounter Visit Diagnoses Diagnosis Encounter for preprocedure screening lab oratory testing for COVID-19 documented in this encounter Care Teams Longwall Headgate Operator Relationship Specialty Start Date End Date Estee Diaz MD PCP - General Family Medicine 10/28/20 [address]oni [address]Y [address] [place] [address] documented as of this encounter
--- OUTSIDE RECORDS SUMMARY | 2021-12-05 15:29 | XMS_ITS | Encounter Summary ---
:1945 Author Organization [facility] [place] [address] Care Team Providers Name Role Phone Estee Diaz MD Primary Care Provider Encounter Details Date Type Department Care Team Description 12/15/2020 Orders Only Orthopaedics at Helen Newman Mari Vela PA Helen [facility] [place] [address] [place] [address] [phone] Social History Tobacco Use Types Packs/Day Years [...] Nish Chávez M D [address] [place], [place] [address] (Wo rk) 12/21/2021 Office Visit Sports Medicine Juno Massey MD [address] PR[facility]ARE [place], [place] [address] (Wo rk) documented as of this encounter Visit Diagnoses Not on filedocumented in this encounter Care Teams Customer Response Representative Relationship Specialty Start Date End Date Estee Diaz MD PCP - General Family Medicine 10/28/20 [address]oni [address]TTY [address] [place] [address] documented as of this encounter
--- OUTSIDE RECORDS SUMMARY | 2021-12-05 15:29 | XMS_ITS | Encounter Summary ---
:1945 Author Organization [facility] [place] [address] Care Team Providers Name Role Phone Estee Diaz MD Primary Care Provider Reason for Visit Reason Comments Right Hip Pain consent signing Encounter Details Date Type Department Care Team Description 10/31/2020 Office Visit Orthopaedics at Nish Herrera Prim ary osteoarthritis Brett Pena MD of right hip [address] [place] [address] [phone] [place] [address] Social History Tobacco Use Types Packs/Day Years [...] [facility] - The consent was reviewed [...] Kineret (anakinra), Rituxan (rituximab). - Items to sweet pickled fruit maker and have at home for use after [...] number to reach you at after surgery: [phone] - You may shower the day after [...] Orthopaedics Nish Chávez M D [address] [place], [place] [address] (Wo rk) 12/21/2021 Office Visit Sports Medicine Juno Massey MD [address] [facility] CARE [place], [place] [address] (Wo rk) documented as of this encounter Visit Diagnoses Diagnosis Primary osteoarthritis of right hip Primary localized osteoarthrosis, pelvic region and thigh documented in this encounter Care Teams Hand Bindery Assembly Worker Relationship Specialty Start Date End Date Estee Diaz MD PCP - General Family Medicine 10/28/20 [address] [facility] [place] [address] documented as of this encounter
--- OUTSIDE RECORDS SUMMARY | 2021-12-05 15:29 | XMS_ITS | Encounter Summary ---
:1945 Author Organization [facility] [address] Care Team Providers Name Role Phone Kevin Miranda MD Primary Care Provider Encounter Details Date Type Department Care Team Description 07/01/2020 Abstract Orthopaedics at [facility] Francesca Godoy LNA 10 [facility] [place] [address] Social History Tobacco Use Types Packs/Day [...] Nish Chávez M D [address] [place], [place] [address] (Li ni) 12/21/2021 Office Visit Sports Medicine Juno Massey MD [address] PRIMARY [facility]ARE [place], [place] [address] (Wo raine) documented as of this encounter Visit Diagnoses Not on filedocumented in this encounter Care Teams Check Writing Machine Operator Relationship Specialty Start Date End Date Kevin Miranda MD PCP - General Family Medicine 06/30/20 10/27/20 1020 [place] [address] documented as of this encounter
--- OUTSIDE RECORDS SUMMARY | 2021-12-05 15:29 | XMS_ITS | Encounter Summary ---
:1945 Author Organization [facility] [place] [address] Care Team Providers Name Role Phone Estee Diaz MD Primary Care Provider Encounter Details Date Type Department Care Team Description 10/31/2020 Notes Only Orthopaedics at [facility] Nish Chávez MD [place] [address] [place] [address] [phone] (Wo rk) Social History Tobacco Use Types [...] [facility]. - The consent was [...] Kineret (anakinra), Rituxan (rituximab). - Items to fruit or nut picker and have at home for use [...] number to reach you at after surgery: [phone] - You may shower the day after [...] Nish Chávez M D [address] [place], [place] [address] (Li ni) 12/21/2021 Office Visit Sports Medicine Juno Massey MD [address] [facility]IMARY [facility]ARE [place], [place] [address] (Li ni) documented as of this encounter Visit Diagnoses Not on filedocumented in this encounter Care Teams Automotive Glazier Relationship Specialty Start Date End Date Estee Diaz MD PCP - General Family Medicine 10/28/[address] [facility] 1 [place] [address] documented as of this encounter
--- OUTSIDE RECORDS SUMMARY | 2021-12-05 15:29 | XMS_ITS | Encounter Summary ---
:1945 Author Organization [facility] Address [address] [place] [address] Care Team Providers Name Role Phone Kevin Miranda MD Primary Care Provider Reason for Visit Reason Comments Follow-up discuss hip surgery Encounter Details Date Type Department Care Team Description 10/16/2020 Office Visit Orthopaedics at Pb Viveros chanteric bursitis of left hip; MONAE Summers Primary osteoarthritis of right hip; [address] 10 [facility] Pain in right hip; [place], [place] DRIVE Gluteal tendinitis of left buttock; [phone] [place] [address] It band syndrome, left [phone] Social History Tobacco Use Types Packs/Day Years [...] years according to accelerated agingsimulation by the loan operations manager. Considering the apparent impact on her lifestyle [...] total hip arthroplasty. Please refer to the [employer] website at [email or web address], the patient information section. Click on the hip and it will direct you to information regarding your injury. Discussed with patient indications for prompt return or to call the clinic if they have any questions, otherwise they will follow-up for pre-operative consent with Dr. Chávez and with their PCP as scheduled. documented in this encounter Progress Notes Pb Preciado PA - 10/16/2020 2:30 PM EDT PATIENT NAME: Molly Rios AGE: 75 y.o. MR#: [id number] DATE OF VISIT: 10/16/2020 Referring Provider: Kevin [...] total hip arthroplasty. Please refer to the [employer] website at [email or web address], [...] hip arthroplasty direct anterior approach CPT Codes: 94914 -Total hip arhtroplasty Equipment/Implants: Equipment Required: CLEMENTS [...] Nish Chávez M D [address] [place], [place] [address] (Li ni) 12/21/2021 Office Visit Sports Medicine Juno Massey MD [address] [facility] CARE [place], [place] [address] (Li ni) Scheduled Orders Name Type Priority Associated Diagnoses [...] left documented in this encounter Care Teams Rn School Relationship Specialty Start Date End Date Kevin Miranda MD PCP - General Family Medicine 06/30/20 10/27/[address] [place] [address] documented as of this encounter
--- OUTSIDE RECORDS SUMMARY | 2021-12-05 15:29 | XMS_ITS | Encounter Summary ---
:1945 Author Organization [facility] [place] [address] Care Team Providers Name Role Phone Kevin Miranda MD Primary Care Provider Reason for Visit Reason Onset Date Comments Follow-up 09/18/2020 Encounter Details Date Type Department Care Team Description 09/18/2020 Telephone Orthopaedics at [facility] Robert Floyd, RN Follow-up 10 [place] [address] Social History Tobacco Use Types Packs/Day Years Used Date Former Smoker Quit: 1988 Smokeless Tobacco: Never Used Sex Assigned at Date Recorded Not on file documented as of this encounter Miscellaneous Notes Telephone Encounter - Robert Genao, RN - 09/18/2020 12:36 PM EDT Telephone Call 09/18/2020 12:37 PM Caller: Molly Rios 1945 Telephone Information: [phone] (home) Problem/Question: Patient was placed on Meloxicam [...] Nish Chávez M D [address] [place], [place] [address] (Wo rk) 12/21/2021 Office Visit Sports Medicine Juno Massey MD [address] [facility]ARE [place], [place] [address] (Wo rk) documented as of this encounter Visit Diagnoses Not on filedocumented in this encounter Care Teams Hairspring Truer Relationship Specialty Start Date End Date Kevin Miranda MD PCP - General Family Medicine 06/30/20 10/27/20 1020 [place] [address] documented as of this encounter
--- OUTSIDE RECORDS SUMMARY | 2021-12-05 15:29 | XMS_ITS | Encounter Summary ---
:1945 Author Organization [facility] [place] [address] Care Team Providers Name Role Phone Estee Diaz MD Primary Care Provider Reason for Visit Reason Onset Date Comments Follow-up 11/25/2020 Encounter Details Date Type Department Care Team Description 11/25/2020 [facility] Follow-[facility] [address] [place] [address] Social History Tobacco Use Types Packs/Day [...] Nish Chávez M D [address] [place], [place] [address] (Wo rk) 12/21/2021 Office Visit Sports Medicine Juno Massey MD [address] PRIMARY CARE [place], [place] [address] (Wo rk) documented as of this encounter Visit Diagnoses Not on filedocumented in this encounter Care Teams State Attorney Relationship Specialty Start Date End Date Estee Diaz MD PCP - General Family Medicine 10/28/20 [address]oni [address] [place] [address] documented as of this encounter
--- OUTSIDE RECORDS SUMMARY | 2021-12-05 15:29 | XMS_ITS | Encounter Summary ---
:1945 Author Organization [facility] Address [address] [place] [address] Care Team Providers Name Role Phone Kevin Miranda MD Primary Care Provider Reason for Visit Reason Comments Right Hip Pain Encounter Details Date Type Department Care Team Description 09/10/2020 Office Visit Orthopaedics at Nish Her[facility] hanteric bursitis Brett Pena MD of left hip (Primary [address] [place]x) [place] [address] [address] [phone] [place] [address] Social History Tobacco Use Types Packs/Day Years [...] Nish Chávez M D [address] [place], [place] [address] (Wo rk) 12/21/2021 Office Visit Sports Medicine Juno Massey MD [address] PRIMARY CARE [place], [place] [address] (Wo rk) documented as of this encounter Visit Diagnoses Diagnosis Trochanteric bursitis of left hip - Prim arlette Enthesopathy of hip region documented in this encounter Care Teams Delivery Person Relationship Specialty Start Date End Date Kevin Miranda MD PCP - General Family Medicine 06/30/20 10/27/20 1020 [place] [address] documented as of this encounter
--- OUTSIDE RECORDS SUMMARY | 2021-12-05 15:29 | XMS_ITS | Encounter Summary ---
:1945 Author Organization [place] [address] Care Team Providers Name Role Phone Unavailable Primary Care Provider Unavailable Encounter Details Date Type Department Care Team Description 05/22/2020 Ancillary Procedure Radiology at [facility] Nish Chávez MD [address] [place] [address] [phone] [place], [place] [address] Social History Tobacco Use Types Packs/Day Years Used Date Never Assessed Sex Assigned at Date Recorded Not on file documented as of this encounter Plan of Treatment Upcoming Encounters Date Type Specialty Care Team Description 12/16/2021 Office Visit Orthopaedics Nish Chávez M D [address] [place], [place] [address] (Wo rk) 12/21/2021 Office Visit Sports Medicine Juno Massey MD [address] [facility] [place] [address] (Wo rk) documented as of [...] Time Received Time / Laterality Volume Narrative DH RAD - 07/16/2020 10:25 AM EDT This exam is auto-finalizing. It's purpo se is for storage only. Nish Chávez MD IMG FILM LIBRARY ORDERABLES Performing Organization Address City/State/ZIP Code Phon e Number IVONNE CORONADO [place], [place] documented in this encounter Visit Diagnoses Not on filedocumented in this encounter
--- OUTSIDE RECORDS SUMMARY | 2021-12-05 15:29 | XMS_ITS | Encounter Summary ---
:1945 Author Organization [facility] [place] [address] Care Team Providers Name Role Phone Estee Diaz MD Primary Care Provider Encounter Details Date Type Department Care Team Description 10/29/2020 Notes Only Orthopaedics at [facility] Francesca Wilson LNA [address] [place] [address] Social History Tobacco Use Types Packs/Day Years Used Date Former Smoker Quit: 1988 Smokeless Tobacco: Never Used Sex Assigned at Date Recorded Not on file documented as of this encounter Plan of Treatment Upcoming Encounters Date Type Specialty Care Team Description 12/16/2021 Office Visit Orthopaedics Nish Chávez M D [address] [place], [place] [address] (Wo rk) 12/21/2021 Office Visit Sports Medicine Juno Massey MD [address] [facility] [place], [place] [address] (Wo rk) documented as of this encounter Visit Diagnoses Not on filedocumented in this encounter Care Teams Percussion Tuner Relationship Specialty Start Date End Date Estee Diaz MD PCP - General Family Medicine 10/28/20 Toni SHETTY [address] [place] [address] documented as of this encounter
--- OUTSIDE RECORDS SUMMARY | 2021-12-05 15:29 | XMS_ITS | Encounter Summary ---
:1945 Author Organization [facility] Address [facility] [address] [place] [address] Care Team Providers Name Role Phone Estee [...] Expiration Date Visits Requ ested Visits Authorized [id number] 1 1 Encounter Details Date Type Department Care Team Description 12/16/2020 Surgery Operating Room Nish Herrera MD TOTAL HIP ARTHROPLASTY, West [address] ANTERIOR APPROACH (WRVU [address] [place] [address] [place] [address] [phone] Social History Tobacco Use Types Packs/Day Years [...] - 12/17/2020 9:55 AM EDT [address] [facility] Discharge Summary Admit date: 12/16/2020 Expected [...] medication that you were doing while at [facility]. Be sure to understand your pain medication plan before you leave the hospital and remember to metal pickling equipment operator all prescriptions at the pharmacy. DVT [...] 11:30 AM Mari Sandoval PA Orthopaedics at [facility] Arrive at: [facility] Level 02/20/2021 1:00 PM Mari Sandoval PA Orthopaedics at [facility] Arrive at: [facility] Level Future Orders Complete By Expires Referral to Home Health - at DISCHARGE [[id number] CPT(R)] As directed Process Instructions: Scheduling Instructions: Comments: DOCUMENTATION FOR VNA SERVICES (INCLUDING THOSE PATIENTS WITH MEDICARE COVERAGE REQUIRING HOME VNA SERVICES AND/OR HOSPICE SERVICES) PATIENT'S LOCATION: Molly Rios [address] [place] [address] (home) Cell: Telephone Information: Employee Benefits Coordinator's Name: Med[employer]/Self In discussion with the attending physician, it is certified that this patient is under their care and that they, or a Nurse Practitioner,Clinical Nurse specialist or Physician [employer] who is working directly with them, had [...] for managing ADL's. HOME HEALTH CARE AGENCY: [facility] PHONE: [phone] FAX: [phone] Start of care: 24-48 hours post dc [...] patient'sPCP: MD Toni Suggs DR [address] / [facility] [address] All A agencies which cover the area of patient's residence have been reviewed, either verbally or in writing, and patient/family have chosen the home health care agency noted Questions: Agency name and contact information: [facility] Patient location post discharge: home What services are requested: Physical Therapy Occupational Therapy Start date: Responsible MD post discharge contact info: PCP Inpatient Provider Contact Information: For questions regarding this summary or this inpatient hospitalization, please call the [facility] Orthopedic Office at [phone]. MONAE Lindquist 12/17/2020 documented in this encounter [...] you leave the hospital and remember to metal pickling equipment operator all prescriptions at the pharmacy. DVT [...] - 12/17/2020 9:51 AM EDT [facility] ORTHOPAEDIC PROGRESS NOTE Admit Date: 12/16/2020 [...] referrals are placed. Patient requests referral to [facility]. PHONE: [phone] FAX: [phone] Expected date of discharge: 12/17/20 PT/OT CAREY Referral routed to the Balancing Machine Set Up Worker for matching with agency/vendor and to provide [...] Evaluation Leval of Eval Complexity: Low - 80726 Diagnosis: S/P right total hip arthroplasty; Dr. [...] H25.13 ??? Plantar fasciitis M72.2 ??? Problem [id number] ??? Routine adult health maintenance Z00.00 ??? [...] IADLs: Dressing Dressing: Lower Body, Upper Body Breaker Off Top: Modified Independent Underwear: Supervision, Verbal Cues, [...] Clinical Decision Making Complexity Score: Low - 24413 Rola Kaufman OT 12/16/2020 Occupational Therapy Rehabilitation [...] turn level surfaces using a FWW at [facility] Comments: Sit / Stand: Supervision, Assist of 1 Assistive Equipment: FWW Surfaces Used: bed Stairs: Assist of 1, Contact Guard Assistive Equipment: FWW Number of Stairs: 4 x 6 inch at [facility] using BUE handrails ( presented [...] x5 Hip Abduction / Adduction -- Ankle Palm x5 Seated Hip Flexion -- Knee Flexion [...] good functional mobility using a FWW at [facility] and is safe to discharge [...] Diversional Activities: smartphone television Pain Management Interventions: [id number]-[id number]-[id number] dosing utilized cold applied Problem: Postoperative Nausea [...] care provider on file: Estee Diaz MD [phone] Advance Directive on file and Code Status: <no information>, Attempt Cardiopulmonary Resuscitation - Inpatient If AD's have not been completed [employer] would be surrogate decision maker per [place] surrogate decision making law. (Only good for 180 days) Any patient receiving care at [facility] must abide by [place] law. The hierarchy for surrogate decision making [...] (i) The agent with financial power of banking attorney or a conservator appointed in accordance with RSA 464-A. (j) The guardian of the patient???s estate. Patient???s Functional Status:Pt states she is independent with all adls. She drives Living Situation:lives with in a 2 story home but living area all on first floor. 2 cats 3 DIOGENES Has fww [address] [facility] [address] Supports:family BH/Substance use: per pt Denies any [...] home via personal vehicle when medically ready. willow analyst/Retail Performance Coach will continue to follow patient???s progress and remain available if situation changes for coordination of care, psychosocial support and/or discharge planning. Office of Care Management CM: Debbie Mejia RN Op Note - Nish Chávez MD - 12/16/2020 10:11 AM EDT [facility] Operative Note [facility] [address] [place] [address] Patient Name: Molly Rios : [id number] MR#: [id number] Case Date: 12/16/2020 Surgery Start Time: 1010 Surgery Stop Time: 1056 Date: 12/16/2020 Surgeon: Nish Chávez MD [employer]: MONAE Jessica Lease Administrator: Manjit Tineo CRNA Anesthesia: Right Pre-operative diagnosis: Right hip osteoarthritis, severe Body mass index is 19.16 kg/m??. Post-operative diagnosis: Same Surgical Procedure Performed: Injection right hip with marcaine 0.25% with epi, 4 mg morphine, ketorolac 30 mg, and Solu-Medrol (40 mg) into skin, subcutaneous and deep tissues, and joint space. Right total hip arthroplasty, anterior Hueter approach with Milmay table Right hip intraoperative radiologic examination Findings: [...] performed. Patient was positioned supine on the Milmay table, both feet and ankles were padded [...] liner was placed and impacted according to front desk person's instructions. Any impinging osteophytes were removed. Attention [...] and laterally. At the same time, the academic affairs assistant leaned against the thigh to optimize [...] back to the hospital bed from the Milmay table and boots wereremoved. No abduction pillow was placed. The patient returned to the recovery room in stable condition. The surgical clinical reviewer, MONAE Jessica, worked under my direction for the duration of the operativesession. The academic affairs assistant meticulously prepped the operative site and maintained the best possible exposure of anatomy for the procedure for its duration. Implant Information: Implant Name Type Inv. Item Serial No. Departmental Buyer Lot No. LRB No. Used Action SHELL ACET HIP 50MM POR 3 HOLE TI R3 ([id number]) (AutoReq) - [id number] IMPLANTS SHELL ACET HIP 50MM POR 3 HOLE TI R3 ([id number]) (AutoReq) [employer] - CLEMENTS NEPH [id number] Right 1 Implanted LINER ACET HIP [id number] 0D POLY R3 ([id number]) (AutoReq) - [id number] IMPLANTS LINER ACET HIP [id number] 0D POLY R3 ([id number]) (AutoReq) [employer] NEPH [id number] Right 1 Implanted STEM FEMORAL HIP SZ 3 PROX 135D POR CLLR STND OFST TI ([id number]) (AutoReq) - [id number] IMPLANTS STEMFEMORAL HIP SZ 3 PROX 135D POR CLLR STND OFST TI ([id number]) (AutoReq) [employer] - CLEMENTS [id number] Right 1 Implanted HEAD FEMORAL HIP 32MM -3MM OFFSET 12/14 TPR ZIRCNM OXINIUM ([id number]) (AutoReq) - [id number] IMPLANTSHEAD FEMORAL HIP 32MM -3MM OFFSET 12/14 TPR ZIRCNM OXINIUM ([id number]) (AutoReq) [employer] NEPH [id number] Right 1 Implanted TG 0 RG 0 documented in this encounter Plan of Treatment Upcoming Encounters Date Type Specialty Care Team Description 12/16/2021 Office Visit Orthopaedics Nish Chávez M D [address] [place], [place] [address] (Wo rk) 12/21/2021 Office Visit Sports Medicine Juno Massey MD [address] [facility] [place], [place] [address] (Wo rk) documented as of [...] Code Phon e Number LABORATORY [address] [place], [place] [address] (ABNORMAL) Differential, Automated (12/17/2020 [...] Mari LICONA HEMATOLOGY ORDERABLES Performing Organization Address City/[facility]/ZIP Code Phon e Number LABORATORY [address] [place], [place] [address] (ABNORMAL) Hemogram (12/17/2020 6:59 AM [...] Phon e Number LABORATORY [address] [place], [place] [address] (ABNORMAL) Basic Metabolic Panel (non-fasting) (12/17/2020 6:59 AM EDT) P athologist Signature Glucose Lvl 136 65 - 199 mg/dL LABORATORY Comment: Diabetes: >=200 mg/dL plus symp toms BUN 10 8 - 18 mg/dL LA BORATORY Creatinine 0.48 (L) 0.70 - 1.20 mg/dL [facility] Sodium 137 135 - 145 mmol/L [...] Anion Gap 11 5 - 15 mmol/L HEL[facility] L [facility]ORATORY Calcium 9.2 8.5 - 10.5 mg/dL [facility] Estimated GFR 97 >=60 mL/min/1.73 m?? [facility] Comment: This patient? s estimated glomerular [...] Address City/State/ZIP Code Phon e Number [facility] [address] [place], [place] [address] XR Fluoro No Rad [...] Discontinued, Routine doxepin (Sinequan) capsule 10 mg 2100 (Due) 10 mg, Oral, NIGHTLY, First dose [...] Reason: Patient/family refused)2044 (Given - Provider: Татьяна Lundy RN) 0831 (Given - Provider: Jeanette drz, JANELL) 1 tablet, Oral, 2 TIMES DAILY, [...] bowel movement within 72 hours If multiple [place] N bowel medications ordered, start with Miralax, [...]
Routine documented in this encounter Care Teams Operations Research Manager Relationship Specialty Start Date End Date Estee Diaz MD PCP - General Family Medicine 10/28/20 Toni SHETTY [address] [place] [address] documented as of this encounter
--- OUTSIDE RECORDS SUMMARY | 2021-12-05 15:29 | XMS_ITS | Encounter Summary ---
:1945 Author Organization [facility] [place] [address] Care Team Providers Name Role Phone Estee Diaz MD Primary Care Provider Encounter Details Date Type Department Care Team Description 10/31/2020 Laboratory Laboratory at [place] Primary osteoarthritis of right hip; Appointment [place] Pain in right hip; 10 [place] [phone] Social History Tobacco Use Types Packs/Day Years Used Date Former Smoker Quit: 1988 Smokeless Tobacco: Never Used Sex Assigned at Date Recorded Not on file documented as of this encounter Plan of Treatment Upcoming Encounters Date Type Specialty Care Team Description 12/16/2021 Office Visit Orthopaedics Nish Chávez M D [address] [place], [place] [address] (Wo rk) 12/21/2021 Office Visit Sports Medicine Juno Massey MD [address] [facility] [place], [place] [address] (Wo rk) documented as of [...] (10/31/2020 12:00 PM EDT) Analysis Performed At [facility] Signature T&S only valid [facility] at LABORATORY Comment: This Type and Screen result is only valid at the [facility] Specimen Anatomical Collection Method Collection Time Receive d Time (Source) Location / / Volume Laterality Blood 10/31/2020 12:00 10/31/2020 2:10 PM EDT PM EDT Resulting Agency Comment Spec In Lab Nish Chávez MD BLOOD BANK ORDERABLES Performing Organization Address City/State/ZIP Code Phon e Number [facility] LABORATORY 10 [place], [place] [address] Antibody Screen Gel (APD/NLH) (10/31/2020 12:00 PM EDT) Analysis Performed At Patho logist Time Signature AB Screen Negative Interp LABORATORY Specimen Anatomical Collection Method Collection Time Receive d Time (Source) Location / / Volume Laterality Blood 10/31/2020 12:00 10/31/2020 2:10 PM EDT PM EDT Resulting Agency Comment Spec In Lab Nish Chávez MD BLOOD BANK ORDERABLES Performing Organization Address City/[facility]/ZIP [facility] Phon e Number LABORATORY [address] [place], [place] [address] ABORh type Gel (APD/NLH) (10/31/2020 12:00 PM EDT) [facility] Method Time Signature Expires at 11/03/2020 2359 on: LABORATORY ABORh Type O Pos LABORATORY Specimen Anatomical Collection Method Collection Time Receive d Time (Source) Location / / Volume Laterality Blood 10/31/2020 12:00 10/31/2020 2:10 PM EDT PM EDT Resulting Agency Comment Spec In Lab Nish Chávez MD BLOOD BANK ORDERABLES Performing Organization Address City/[facility] [address] [facility] Code Phon e Number LABORATORY [address] [place], [place] [address] (ABNORMAL) Differential, Automated (10/31/2020 12:00 PM EDT) [facility] Method Time Signature Neutrophils % 56.5 % LABORATORY Neutr Abs (ANC) 3.88 1.70 - 6.10 LABORATORY x10(3)/mcL Lymphocytes % 25.1 % LABORATORY Lymphocytes Abs 1.7 0.9 - 3.2 DAY x10(3)/mcL LABORATORY Monocytes % 9.3 % LABORATORY Monocyte Abs 0.6 0.3 - 0.9 HELEN DAY x10(3)/mcL LABORATORY Eosinophils % 7.9 % [...] City/State/ZIP Code Phon e Number LABORATORY 10 [place], [place] [address] (ABNORMAL) Hemogram (10/31/2020 12:00 PM EDT) P athologist Signature WBC 6.9 4.0 - 9.5 x10(3)/mcL LABORATORY RBC 4.51 4.00 - 5.21 LABORATORY x10(6)/mcL Hemoglobin 14.1 11.7 - 15.5 gm/dL LABORATORY Hematocrit 42.5 35.7 - 45.8 % LABORATORY MCV 94.2 82.6 - 94.4 fL LABORATORY MCH 31.3 27.1 - 32.0 pg LABORATORY MCHC 33.2 31.7 - 35.0 gm/dL LABORATORY Platelets 296 145 - 357 x10(3)/mcL LABORATORY RDWSD 47.2 (H) 37.0 - 46.0 fL LABORATORY RDWCV 13.3 11.5 - 14.1 % LABORATORY MPV 9.9 7.6 - 12.9 fL LABORATORY Specimen Anatomical Collection Method Collection Time Receive d Time (Source) Location / / Volume Laterality Blood 10/31/2020 12:00 10/31/2020 2:10 PM EDT PM EDT Resulting Agency Comment Spec In Lab Authorizing Provider Result Rachel Chávez MD HEMATOLOGY ORDERABLES Performing Organization Address City/State/ZIP Code Phon e Number [facility] [address] [place], [place] [address] Staph aureus/MRSA Culture Screen Nasal (10/31/2020 12:00 PM EDT) Component Value Ref Test Analysis Performed At Patholo gist Range Method Time Signature Staphylococcus No Staphylococcus BLANCA Screening Culture aureus isolated [facility] LABOR[facility] Specimen Anatomical Collection Method Collection Time Receive d Time (Source) Location / / Volume Laterality Nasal 10/31/2020 12:00 10/31/2020 4:41 PM EDT PM EDT Resulting Agency Comment Spec In Lab Authorizing Provider Result Rachel Chávez MD MICROBIOLOGY - GENERAL ORDER VON Performing Organization Address City/[facility] [address]/[place] [address] (ABNORMAL) Comprehensive metabolic panel [...] City/State/ZIP Code Phon e Number LABORATORY [address] [place], [place] [address] documented in this encounter Visit Diagnoses Diagnosis Primary osteoarthritis of right hip Primary localized osteoarthrosis, pelvic region and thigh Pain in right hip Pain in joint, pelvic region and thigh Pre-op testing Preoperative examination, unspecified documented in this encounter Care Teams Floor Coverer Relationship Specialty Start Date End Date Estee Diaz MD PCP - General Family Medicine 10/28/20 Toni SHETTY [address] [place] [address] documented as of this encounter
--- OUTSIDE RECORDS SUMMARY | 2021-12-05 15:29 | XMS_ITS | Encounter Summary ---
:1945 Author Organization [facility] [place] [address] Care Team Providers Name Role Phone Kevin Miranda MD Primary Care Provider Reason for Referral Consultation (Routine) - Closed Specialty Diagnoses / Procedures Referred By Contact Refer red To Contact Family Medicine Diagnoses Primary osteoarthritis of right hip Pain in right hip Pre-op exam Nish Chávez MD Kraus, Dana C, MD [address] [facility] 1 [place] [address] Fax: Referral ID Status Reason Start Date Expiration Date Visits V isits Requested Authorized [id number] Closed Consult, 10/16/2020 04/14/2021 1 1 Test & Treat Encounter Details Date Type Department Care Team Description 10/16/2020 Orders Only Orthopaedics at Nish Herrera, Chantale arlette osteoarthritis of right hip; Brett Pena MD Pain in right hip; [address] Pre-op exam; [place] [address] Pre-op testing [phone] [place] [address] Social History Tobacco Use Types Packs/Day Years [...] Orthopaedics Nish Chávez M D [address] [place] [address] (Wo rk) 12/21/2021 Office Visit Sports Medicine Juno Massey MD [address] [facility]ARE [place], [place] [address] (Wo rk) Scheduled Referrals Name Type [...] 431 ms MUSE SYSTEM (Bezet) Calculated P Piru 75 degrees MUSE SYSTEM Calculated R Piru 36 degrees MUSE SYSTEM Calculated T Piru 60 degrees MUSE SYSTEM INTERPRETATION Sinus rhythm [...] Sodium 138 135 - 145 mmol/L [facility] Cristina LABORATORY Potassium 4.2 3.5 - 5.0 mmol/L [facility] [place] [facility] Comment: Please note: ??Patients with WBC [...] 7.1 6.1 - 8.0 gm/dL [facility] [place] [facility] Albumin 4.5 3.2 - 5.2 gm/dL [facility] [place] [facility] AST 23 0 - 30 unit/L [facility] L [facility] ALT 16 0 - 30 unit/L [facility] [place] DAY L ABORATORY Alk Phos 88 35 - 105 unit/L [facility] [place] [facility] Total Bilirubin 0.5 0.2 - 1.3 mg/dL HEL[facility] PE CK LABORATORY Estimated GFR 90 >=60 [...] Code Phon e Number LABORATORY [address] [place], [place] [address] Staph aureus/MRSA Culture Screen Nasal (10/31/2020 12:00 PM EDT) Component Value Ref Test Analysis Performed At [facility] gist Range Method Time Signature Staphylococcus No Staphylococcus BLANCA Screening Culture aureus isolated [facility] Specimen Anatomical Collection Method Collection Time Receive d Time (Source) Location / / Volume Laterality Nasal 10/31/2020 12:00 10/31/2020 4:41 PM EDT PM EDT Resulting Agency Comment Spec In Lab Nish Chávez MD MICROBIOLOGY - GENERAL ORDER VON Performing Organization Address City/State/ZIP [place] [address] documented in this encounter Visit Diagnoses Diagnosis Primary osteoarthritis of right hip Primary localized osteoarthrosis, pelvic region and thigh Pain in right hip Pain in joint, pelvic region and thigh Pre-op exam Preoperative examination, unspecified Pre-op testing Preoperative examination, unspecified documented in this encounter Care Teams Siphon Operator Relationship Specialty Start Date End Date Kevin Miranda MD PCP - General Family Medicine 06/30/20 10/27/[address] [place] [address] documented as of this encounter
--- OUTSIDE RECORDS SUMMARY | 2021-12-05 15:29 | XMS_ITS | Encounter Summary ---
:1945 Author Organization [facility] [place] [address] Care Team Providers Name Role Phone Estee [...] Expiration Date Visits Requ ested Visits Authorized [id number] 1 1 Encounter Details Date Type Department Care Team Description 12/16/2020 Anesthesia Event Operating Room William Leger D, Day PER ASSESSMENT NURSE [address] [place] [address] ANESTHESIOLOGY [phone] [place], [place] [address] (Wo rk) Anesthesia Record Procedure Summary Procedure Name Responsible Anesthesia Start Anesthesia Stop Time Anesthesiologist Time TOTAL HIP Manjit Tineo PER ASSESSMENT NURSE 12/16/20 0938 12/16/20 1 100 ARTHROPLASTY, ANTERIOR [...] Schmidt RN Bagl ey, HARMAN Hernandez right; [id number] catheter system; Anatomical Landmarks; 20 gauge; FY; [...] Pain Level 0 12/16/20 1224 Patient Location: [facility] Level of Consciousness: Awake and Alert Pain [...] Orthopaedics Nish Chávez M D [address] [place], [place] [address] (Wo rk) 12/21/2021 Office Visit Sports Medicine Juno Massye MD [address] [facility] [place], [place] [address] (Wo rk) documented as of [...] previous midline attempt s. ~~~~~~~~~~~~~~~~~~~~~~~~~~~~~~~~~~~~~~~~ ~~~~~~~~~~~~~~~~~~~~ Manjit Tnieo CRNA RESIDENTIAL COLLECTIONS [facility] documented in this encounter Visit Diagnoses [...] Routine documented in this encounter Care Teams Retail Zone Specialist Relationship Specialty Start Date End Date Estee Diaz MD PCP - General Family Medicine 10/28/20 Toni SHETTY [address] [place] [address] documented as of this encounter
--- OUTSIDE RECORDS SUMMARY | 2021-12-05 15:29 | XMS_ITS | Encounter Summary ---
:1945 Author Organization [facility] [place] [address] Care Team Providers Name Role Phone Estee Diaz MD Primary Care Provider Encounter Details Date Type Department Care Team Description 12/09/2020 Telephone Pre-Admission Mary hussein at [facility] [place] [address] Social History Tobacco Use Types Packs/Day [...] Nish Chávez M D [address] [place], [place] [address] (Wo rk) 12/21/2021 Office Visit Sports Medicine Juno Massey MD [address] [facility] [place], [place] [address] (Wo rk) documented as of this encounter Visit Diagnoses Not on filedocumented in this encounter Care Teams Automotive Dismantler Relationship Specialty Start Date End Date Estee Diaz MD PCP - General Family Medicine 10/28/20 [address] [place] [address] documented as of this encounter
--- OUTSIDE RECORDS SUMMARY | 2021-12-05 15:29 | XMS_ITS | Encounter Summary ---
:1945 Author Organization [facility] [address] Care Team Providers Name Role Phone Estee Diaz MD Primary Care Provider Encounter Details Date Type Department Care Team Description 11/25/2020 TH Visit Orthopaedics at [facility] osteoarthritis (TeleHealth) Trent Schmidt RN of right hip [address] [place] [address] Social History Tobacco Use Types Packs/Day Years [...] Nish Chávez M D [address] [place], [place] [address] (Wo rk) 12/21/2021 Office Visit Sports Medicine Juno Massey MD [address] [facility] [place], [place] [address] (Wo rk) documented as of this encounter Visit Diagnoses Diagnosis Primary osteoarthritis of right hip Primary localized osteoarthrosis, pelvic region and thigh documented in this encounter Care Teams Scrum Project Manager Relationship Specialty Start Date End Date Estee Diaz MD PCP - General Family Medicine 10/28/20 [address] [facility] 1 [place] [address] documented as of this encounter
--- OUTSIDE RECORDS SUMMARY | 2021-12-05 15:31 | XMS_ITS | Encounter Summary ---
:1945 Author Organization [facility] Address [address] [facility], [address] [place] [address] Care Team Providers Name Role Phone Kevin Miranda MD Primary Care Provider Reason for Visit Reason Onset Date Comments Med Refill 09/30/2020 Encounter Details Date Type Department Care Team Description 09/30/2020 Refill [facility] Pr actice Kevin Miranda MD [address] [place] [address] [place] [address] [phone] (Wo rk) Social History Tobacco Use Types Packs/Day Years Used Date Former Smoker Smokeless Tobacco: Never Used Alcohol Use Standard Drinks/Week Comments Yes 5 (1 standard drink = 0.6 oz pure alcoho l) Sex Assigned at Date Recorded Female 04/12/2019 2:19 PM EST documented as of this encounter Plan of Treatment Upcoming Encounters Date Type Specialty Care Team Description 04/19/2022 Office Visit Family Medicine Kevin Miranda MD [address] [place] [address] (Wo rk) documented as of this encounter Visit Diagnoses Not on filedocumented in this encounter Care Teams Geriatrician Relationship Specialty Start Date End Date Kevin Miranda MD PCP - General Family Medicine 11/20/[address] [place] [address] documented as of this encounter
--- OUTSIDE RECORDS SUMMARY | 2021-12-05 15:31 | XMS_ITS | Encounter Summary ---
:1945 Author Organization [facility] Address [address] [facility], [address] [place] [address] Care Team Providers Name Role Phone Kevin Miranda MD Primary Care Provider Encounter Details Date Type Department Care Team Description 04/02/2021 Refill [facility] Pr actice Kevin Miranda MD [address] [place] [address] [place] [address] [phone] (Wo rk) Social History Tobacco Use Types [...] Visit Family Medicine Kevin Miranda MD [address] [place] [phone] (Wo rk) documented as of this encounter Visit Diagnoses Not on filedocumented in this encounter Care Teams Workers Compensation Claims Specialist Relationship Specialty Start Date End Date Kevin Miranda MD PCP - General Family Medicine 11/20/[address] [place] [address] documented as of this encounter
--- OUTSIDE RECORDS SUMMARY | 2021-12-05 15:31 | XMS_ITS | Encounter Summary ---
:1945 Author Organization [facility] Address [address] [facility], [address] [place] [address] Care Team Providers Name Role Phone Kevin Miranda MD Primary Care Provider Encounter Details Date Type Department Care Team Description 03/21/2020 Orders Only [facility] actice Provider, MD Harsh [address] [place] [phone] Social History Tobacco Use Types Packs/Day Years [...] Visit Family Medicine Kevin Miranda MD [address] [place] [address] (Wo rk) documented as of [...] on filedocumented in this encounter Care Teams Alternative Medicine Practitioner Relationship Specialty Start Date End Date Keivn Miranda MD PCP - General Family Medicine 11/20/19 [address] [place] [address] documented as of this encounter
--- OUTSIDE RECORDS SUMMARY | 2021-12-05 15:31 | XMS_ITS | Encounter Summary ---
:1945 Author Organization [facility] Address [address] [facility], [address] [place] [address] Care Team Providers Name Role Phone Kevin [...] Visit Family Medicine Kevin Miranda MD [address] [place] [address] (Wo rk) documented as of this encounter Visit Diagnoses Not on filedocumented in this encounter Care Teams Matrix Bath Operator Relationship Specialty Start Date End Date Kevin Miranda MD PCP - General Family Medicine 11/20/[address] [place] [address] documented as of this encounter
--- OUTSIDE RECORDS SUMMARY | 2021-12-05 15:31 | XMS_ITS | Encounter Summary ---
:1945 Author Organization [facility] Address [address] [facility], [address] [place] [address] Care Team Providers Name Role Phone Kevin Miranda MD Primary Care Provider Encounter Details Date Type Department Care Team Description 01/27/2021 Orders Only [facility] actice Provider, MD Harsh [address] [place] [address] [phone] Social History Tobacco Use Types Packs/Day Years [...] Visit Family Medicine Kevin Miranda MD [address] [place] [address] (Wo rk) documented as of this encounter Procedures Procedure Name Priority Date/Time Associated Diagnosis Comme nts MAMMOGRAPHY Routine 07/29/2020 documented in this encounter Results MAMMOGRAPHY (07/29/2020) Anatomical Region Laterality Modality Other Narrative This result has an attachment that is no t available. Historical Provider HEALTH MAINTENANCE documented in this encounter Visit Diagnoses Not on filedocumented in this encounter Care Teams Stock Order Lister Relationship Specialty Start Date End Date Kevin Miranda MD PCP - General Family Medicine 11/20/19 10[address] [facility] [place] [address] documented as of this encounter
--- OUTSIDE RECORDS SUMMARY | 2021-12-05 15:31 | XMS_ITS | Encounter Summary ---
:1945 Author Organization [facility] Address [address] [facility], [address] [place] [address] Care Team Providers Name Role Phone Kevin Miranda MD Primary Care Provider Encounter Details Date Type Department Care Team Description 01/08/2020 Telemedicine [facility] Kevin Miranda, Advance care planning Practice (Primary Dx) [facility] [address] [phone] Social History Tobacco Use Types Packs/Day Years [...] The physical location of the provider: [facility] office Patient's verbal consent was obtained [...] Visit Family Medicine Kevin Miranda MD [address] [place] [phone] (Wo rk) documented as of this encounter Visit Diagnoses Diagnosis Advance care planning - Primary Other specified counseling documented in this encounter Care Teams Tie Mill Operator Relationship Specialty Start Date End Date Kevin Miranda MD PCP - General Family Medicine 11/20/[address] [place] [address] documented as of this encounter
--- OUTSIDE RECORDS SUMMARY | 2021-12-05 15:31 | XMS_ITS | Encounter Summary ---
:1945 Author Organization [facility] Address [address] [facility], [address] [place] [address] Care Team Providers Name Role Phone Kevin Miranda MD Primary Care Provider Encounter Details Date Type Department Care Team Description 07/16/2020 Scan Document - View [facility] Kevin Miranda, in Chart Practice [address] [place], [place] [address] [place], [place] [phone] Social History Tobacco Use Types Packs/Day Years [...] Office Visit Family Medicine Kevin Miranda MD [address] [place] [address] (Wo rk) documented as of this encounter Visit Diagnoses Not on filedocumented in this encounter Care Teams Traveling Electrician Relationship Specialty Start Date End Date Kevin Miranda MD PCP - General Family Medicine 11/20/[address] [place] [address] documented as of this encounter
--- OUTSIDE RECORDS SUMMARY | 2021-12-05 15:31 | XMS_ITS | Encounter Summary ---
:1945 Author Organization [facility] Address [address] [facility], [address] [place] [address] Care Team Providers Name Role Phone Kevin Miranda MD Primary Care Provider Reason for Referral Rehab (Routine) - Closed Specialty Diagnoses / Procedures Referred By Contact Refer red To Contact Physical Therapy Diagnoses Right hip pain Kevin Miranda MD [address] [place] [address] Referral ID Status Reason Start Date Expiration Date Visits V isits Requested Authorized [id number] Closed Specialty 02/18/2020 02/17/2021 1 1 Services Required Encounter Details Date Type Department Care Team Description 02/18/2020 Orders Only Kevin Trimble, h ip pain (Primary Practice MD Dx) [address] [place] [address] Social History Tobacco Use Types Packs/Day Years [...] Visit Family Medicine Kevin Miranda MD [address] [place], [place] [phone] (Wo rk) Scheduled Referrals Name Type Priority Associated Order Schedule Diagnoses Ambulatory referral Outpatient Referral Routine Right hip pain 1 Occurrences to Physical Therapy starting 02/18/2020 until documented as of this encounter Visit Diagnoses Diagnosis Right hip pain - Primary Pain in joint, pelvic region and thigh documented in this encounter Care Teams Facsimile Machine Operator Relationship Specialty Start Date End Date Kevin Miranda MD PCP - General Family Medicine 11/20/19 10[address] [place] [address] documented as of this encounter
--- OUTSIDE RECORDS SUMMARY | 2021-12-05 15:31 | XMS_ITS | Encounter Summary ---
:1945 Author Organization [facility] Address [address] [facility], [address] [place] [address] Care Team Providers Name Role Phone Kevin Miranda MD Primary Care Provider Encounter Details Date Type Department Care Team Description 12/14/2019 Scan Document - View Kevin Trimble, in Chart Practice [address] [place] [address] [place], [place] [phone] Social History Tobacco Use Types Packs/Day Years [...] Visit Family Medicine Kevin Miranda MD [address] [place] [address] (Wo rk) documented as of this encounter Visit Diagnoses Not on filedocumented in this encounter Care Teams Electromedical Equipment Technician Relationship Specialty Start Date End Date Kevin Miranda MD PCP - General Family Medicine 11/20/19 1020 [place] [address] documented as of this encounter
--- OUTSIDE RECORDS SUMMARY | 2021-12-05 15:31 | XMS_ITS | Encounter Summary ---
:1945 Author Organization [facility] Address [address] [facility], [address] [place] [address] Care Team Providers Name Role Phone Kevin [...] Visit Family Medicine Kevin Miranda MD [address] [place] [address] (Wo rk) documented as of this encounter Visit Diagnoses Not on filedocumented in this encounter Care Teams Machine Operator Assistant Relationship Specialty Start Date End Date Kevin Miranda MD PCP - General Family Medicine 11/20/[address] [place] [address] documented as of this encounter
--- OUTSIDE RECORDS SUMMARY | 2021-12-05 15:31 | XMS_ITS | Encounter Summary ---
:1945 Author Organization [facility] Address [address] [facility], [address] [place] [address] Care Team Providers Name Role Phone Kevin Miranda MD Primary Care Provider Reason for Referral Specialty (Routine) - Closed Specialty Diagnoses / Procedures Referred By Contact Refer red To Contact Orthopedic Surgery / Diagnoses Primary osteoarthritis of right hip Kevin Miranda MD Orthopaedic Surgery [address] [place] [address] Referral ID Status Reason Start Date Expiration Date Visits V isits Requested Authorized [id number] Closed Specialty 06/05/2020 06/05/2021 1 1 Services Required ehab (Routine) - Closed Specialty Diagnoses / Procedures Referred By Contact Refer red To Contact Physical Therapy Diagnoses Primary osteoarthritis of right hip Kevin Miranda MD [address] [place] [address] Referral ID Status Reason Start Date Expiration Date Visits V isits Requested Authorized [id number] Closed Specialty 06/05/2020 06/05/2021 1 1 Services Required Encounter Details Date Type Department Care Team Description 06/05/2020 Telemedicine [facility] Kevin Miranda, Primary osteoarthritis of right hip (Primary Dx); Practice MD Insomnia, unspecified type [address] [place], [place] [address] [address] [place] [address] [place], [place] [phone] Social History Tobacco Use Types Packs/Day Years [...] first saw Dr. Horn at [facility], who does anterior approach. She had a second opinion with Dr. Varela at [facility], who does the posterior approach. She wonders [...] pursue another opinion with Dr. Angel at [facility] for another anterior approach option. Continue [...] Rodas The physical location of the provider: [facility] office Patient's verbal consent was [...] pursue another opinion with Dr. Angel at [facility] for another anterior approach option. Continue diclofenac 75 mg BID PRN pain. Agree with PT prior to surgery as well and provided referral. documented in this encounter Plan of Treatment Upcoming Encounters Date Type Specialty Care Team Description 04/19/2022 Office Visit Family Medicine Kevin Miranda MD [address] [place], [place] [address] (Wo rk) Scheduled Referrals [...] type documented in this encounter Care Teams Oracle Hrms Developer Relationship Specialty Start Date End Date Kevin Miranda MD PCP - General Family Medicine 11/20/19 [address] [place] [address] documented as of this encounter
--- OUTSIDE RECORDS SUMMARY | 2021-12-05 15:31 | XMS_ITS | Encounter Summary ---
:1945 Author Organization [facility] Address [address] [facility], [address] [place] [address] Care Team Providers Name Role Phone Kevin Miranda MD Primary Care Provider Encounter Details Date Type Department Care Team Description 10/14/2020 Refill [facility] Pr Yessy Gee, [facility] [place] [address] [place] [address] [place], [place] [address] (Wo rk) Social History [...] Visit Family Medicine Kevin Miranda MD [address] [place] [address] (Wo rk) documented as of this encounter Visit Diagnoses Not on filedocumented in this encounter Care Teams Neck Band Operator Relationship Specialty Start Date End Date Kevin Miranda MD PCP - General Family Medicine 11/20/19 10[address] [place] [address] documented as of this encounter
--- OUTSIDE RECORDS SUMMARY | 2021-12-05 15:31 | XMS_ITS | Encounter Summary ---
:1945 Author Organization [facility] Address [address] [facility], [address] [place] [address] Care Team Providers Name Role Phone Kevin [...] Visit Family Medicine Kevin Miranda MD [address] [place] [address] (Wo rk) documented as of this encounter Visit Diagnoses Not on filedocumented in this encounter Care Teams Dumpcart Driver Relationship Specialty Start Date End Date Kevin Miranda MD PCP - General Family Medicine 11/20/[address] [place] [address] documented as of this encounter
--- OUTSIDE RECORDS SUMMARY | 2021-12-05 15:31 | XMS_ITS | Encounter Summary ---
:1945 Author Organization [facility] Address [address] [facility], [address] [place] [address] Care Team Providers Name Role Phone Kevin Miranda MD Primary Care Provider Encounter Details Date Type Department Care Team Description 05/24/2020 Scan Document - View [facility] Kevin Miranda, in Chart Practice [address] [place], [place] [address] [place], [place] [phone] Social History Tobacco Use Types Packs/Day Years [...] Visit Family Medicine Kevin Miranda MD [address] [place] [address] (Wo rk) documented as of this encounter Visit Diagnoses Not on filedocumented in this encounter Care Teams Frame Coverer Relationship Specialty Start Date End Date Kevin Miranda MD PCP - General Family Medicine 11/20/[address] [place] [address] documented as of this encounter
--- OUTSIDE RECORDS SUMMARY | 2021-12-05 15:31 | XMS_ITS | Encounter Summary ---
:1945 Author Organization [facility] Address [address] [facility], [address] [place] [address] Care Team Providers Name Role Phone Kevin Miranda MD Primary Care Provider Encounter Details Date Type Department Care Team Description 08/14/2021 Refill [facility] Pr Yessy Gee, [facility] [place] [address] [place] [address] [place], [place] [address] (Wo rk) Social History [...] Visit Family Medicine Kevin Miranda MD [address] [place] [address] (Wo rk) documented as of this encounter Visit Diagnoses Not on filedocumented in this encounter Care Teams Environmental Specialist Relationship Specialty Start Date End Date Kevin Miranda MD PCP - General Family Medicine 11/20/19 1020 [place] [address] documented as of this encounter
--- OUTSIDE RECORDS SUMMARY | 2021-12-05 15:31 | XMS_ITS | Encounter Summary ---
:1945 Author Organization [facility] Address [address] [facility], [address] [place] [address] Care Team Providers Name Role Phone Kevin Miranda MD Primary Care Provider Encounter Details Date Type Department Care Team Description 04/21/2021 Scan Document - View [facility] Kevin Miranda, in Chart Practice [address] [place], [place] [address] [place], [place] [phone] Social History Tobacco Use Types Packs/Day Years [...] Visit Family Medicine Kevin Miranda MD [address] [place] [address] (Wo rk) documented as of this encounter Visit Diagnoses Not on filedocumented in this encounter Care Teams Vegetable I Farmworker Relationship Specialty Start Date End Date Kevin Miranda MD PCP - General Family Medicine 11/20/[address] [place] [address] documented as of this encounter
--- OUTSIDE RECORDS SUMMARY | 2021-12-05 15:31 | XMS_ITS | Encounter Summary ---
:1945 Author Organization [facility] Address [address] [facility], [address] [place] [address] Care Team Providers Name Role Phone Kevin Miranda MD Primary Care Provider Encounter Details Date Type Department Care Team Description 08/06/2020 Orders Only [facility] actice Provider, MD Harsh [address] [place] [address] [phone] Social History Tobacco Use Types Packs/Day Years [...] Visit Family Medicine Kevin Miranda MD [address] [place] [address] (Wo rk) documented as of this encounter Procedures Procedure Name Priority Date/Time Associated Diagnosis Comme nts MAMMOGRAPHY Routine 07/29/2020 documented in this encounter Results MAMMOGRAPHY (07/29/2020) Anatomical Region Laterality Modality Other Narrative This result has an attachment that is no t available. Historical Provider HEALTH MAINTENANCE documented in this encounter Visit Diagnoses Not on filedocumented in this encounter Care Teams Wood Room Hand Relationship Specialty Start Date End Date Kevin Miranda MD PCP - General Family Medicine 11/20/19 1020 [place] [address] documented as of this encounter
--- OUTSIDE RECORDS SUMMARY | 2021-12-05 15:31 | XMS_ITS | Encounter Summary ---
:1945 Author Organization [facility] Address [address] [facility], [address] [place] [address] Care Team Providers Name Role Phone Kevin Miranda MD Primary Care Provider Encounter Details Date Type Department Care Team Description 02/26/2020 Orders Only [facility] actice Provider, MD Harsh [address] [place] [phone] Social History Tobacco Use Types Packs/Day Years [...] Visit Family Medicine Kevin Miranda MD [address] [place] [address] (Wo rk) documented as of [...] on filedocumented in this encounter Care Teams Emergency Response Officer Relationship Specialty Start Date End Date Kevin Miranda MD PCP - General Family Medicine 11/20/[address] [place] [address] documented as of this encounter
--- OUTSIDE RECORDS SUMMARY | 2021-12-05 15:31 | XMS_ITS | Clinical Summary ---
:1945 Author Organization [facility] Address [address] [facility], [address] [place] [address] Care Team Providers Name Role Phone Kevin [...] Angel at [facility] for another anterior approach option. Continue diclofenac [...] and fiber regimen. F/u with Dr. Gorman ([facility] gastroenterology) for routine f/u and colonoscopy. Lateral knee pain, left 06/24/2017 Radiculopathy, lumbar region 06/12/2017 Overview: Evaluated and followed by : [facility], Rt. Hip, and [facility]. [...] Medicine Kevin Miranda MD [facility] [place], [place] [address] (Wo rk) Health Maintenance [...] / Group Dates BLUE CROSS BLUE CROSS [id number] 2013-Pres [phone] BLUE SHIELD MEDEX CLAIMS ent [phone] [place] [address] MEDICARE MEDICARE A&B [id number] 2013-Pre [phone] Medicare sent [address] [place] [address] MEDICARE MEDICARE A&B [id number] 2013-Pre [phone] Medicare sent [address] [place] [address] MEDICARE MEDICARE A&B [id number] 2013-Pres [phone] Medicare ent [address] [place] [address] BLUE CROSS BLUE CROSS [id number] 2013-Pres [phone] BLUE SHIELD HMO BLUE ent [phone] [place] [address] [facility] [id number] 2020-Pres [phone] [address] Medi care [employer]ICARE ent [phone] [place] [address] Gabriel,Catherin Personal/Famil Self 1945 [address] (Home) [place] [address] Gabriel,Catherin Personal/Famil Self 1945 [address] (Home) [place] [address] Gabriel,Catherin Personal/Famil Self 1945 [address] (Home) [place] [address] Gabriel,Catherin Personal/Famil Self 1945 [address] (Home) [place] [address] Gabriel,Catherin Personal/Famil Self 1945 [address] (Home) [place] [address] Gabreil,Catherin Personal/Famil Self 1945 [address] (Home) [place] [address] Gabriel,Catherin Personal/Famil Self 1945 [address] (Home) [place] [address] Gabriel,Catherin Personal/Famil Self 1945 [address] (Home) [place] [address] Gabriel,Catherin Personal/Famil Self 1945 [address] (Home) [place] [address] Gabriel,Catherin Personal/Famil Self 1945 [address] (Home) [place] [address] Gabriel,Catherin Personal/Famil Self 1945 [address] (Home) [place] [address] Gabriel,Catherin Personal/Famil Self 1945 [address] (Home) [place] [address] Gabriel,Catherin Personal/Famil Self 1945 [address] (Home) [place] [address] Gabriel,Catherin Personal/Famil Self 1945 [address] (Home) [place] [address] Gabriel,Catherin Personal/Famil Self 1945 [address] (Home) [place] [address] Gabriel,Catherin Personal/Famil Self 1945 [address] (Home) [place] [address] Gabriel,Catherin Personal/Famil Self 1945 [address] (Home) [place] [address] Gabriel,Catherin Personal/Famil Self 1945 [address] (Home) [place] [address] Gabriel,Catherin Personal/Famil Self 1945 [address] (Home) [place] [address] Gabriel,Catherin Personal/Famil Self 1945 [address] (Home) [place] [id number] Gabriel,Catherin Personal/Famil Self 1945 [address] (Home) [place] [address] Gabriel,Catherin Personal/Famil Self 1945 [address] (Home) [place] [address] Gabriel,Catherin Personal/Famil Self 1945 [address] (Home) [place] [address] Gabriel,Catherin Personal/Famil Self 1945 [address] (Home) [place] [address] Gabriel,Catherin Personal/Famil Self 1945 [address] (Home) [place] [id number] Gabriel,Catherin Personal/Famil Self 1945 [address] (Home) [place] [address] Gabriel,Catherin Personal/Famil Self 1945 [address] (Home) [place] [address] Gabriel,Catherin Personal/Famil Self 1945 [address] (Home) [place] [address] Gabriel,Catherin Personal/Famil Self 1945 [address] (Home) [place] [address] Gabriel,Catherin Personal/Famil Self 1945 [address] (Home) [place] [address] Gabriel,Catherin Personal/Famil Self 1945 [address] (Home) [place] [address] Gabriel,Catherin Personal/Famil Self 1945 [address] (Home) [place] [address] Gabriel,Catherin Personal/Famil Self 1945 [address] (Home) [place] [address] Gabriel,Catherin Personal/Famil Self 1945 [address] (Home) [place] [address] Gabriel,Catherin Personal/Famil Self 1945 [address] (Home) [place] [address] Gabriel,Catherin Personal/Famil Self 1945 [address] (Home) [place] [address] Gabriel,Catherin Personal/Famil Self 1945 [address] (Home) [place] [address] Gabriel,Catherin Personal/Famil Self 1945 [address] (Home) [place] [address] Gee Rios Personal/Famil Self 1945 [address] (Home) [place] [address] Gee Rios Personal/Famil Self 1945 [address] (Home) [place] [address] Gee Rios Personal/Famil Self 1945 [address] (Home) [place] [address] Gee Rios Personal/Famil Self 1945 [address] (Home) [place] [address] Advance Directives Latest Code Status on File Code Status Date Activated Date Inactivated Comments Full Code 04/13/2019 5:03 PM 04/14/2019 5:14 PM Care Teams Laborer Relationship Specialty Start Date End Date Kevin Miranda MD PCP - General Family Medicine 11/20/[address] [place] [address]
--- OUTSIDE RECORDS SUMMARY | 2021-12-05 15:31 | XMS_ITS | Encounter Summary ---
:1945 Author Organization [facility] Address [address] [facility], [address] [place] [address] Care Team Providers Name Role Phone Kevin Miranda MD Primary Care Provider Encounter Details Date Type Department Care Team Description 10/16/2020 Scan Document - View Kaushik [facility] Kevin Miranda, in Chart Practice [address] [place], [place] [address] [place], [place] [phone] Social History Tobacco Use Types Packs/Day Years [...] Visit Family Medicine Kevin Miranda MD [address] [place] [address] (Wo rk) documented as of this encounter Visit Diagnoses Not on filedocumented in this encounter Care Teams Test Tech Relationship Specialty Start Date End Date Kevin Miranda MD PCP - General Family Medicine 11/20/[address] [place] [address] documented as of this encounter
--- OUTSIDE RECORDS SUMMARY | 2021-12-05 15:31 | XMS_ITS | Encounter Summary ---
:1945 Author Organization [facility] Address [address] [facility], [address] [place] [address] Care Team Providers Name Role Phone Kevin Miranda MD Primary Care Provider Encounter Details Date Type Department Care Team Description 01/03/2020 Refill Kaushik [facility] Pr actice Kevin Miranda MD [address] [place] [address] [place] [address] [phone] (Wo rk) Social History Tobacco Use Types [...] Visit Family Medicine Kevin Miranda MD [address] [place] [address], [place] [address] (Wo rk) documented as of this encounter Visit Diagnoses Not on filedocumented in this encounter Care Teams Photoengraver Apprentice Relationship Specialty Start Date End Date Kevin Miranda MD PCP - General Family Medicine 11/20/19 1020 [place] [address] documented as of this encounter
--- OUTSIDE RECORDS SUMMARY | 2021-12-05 15:31 | XMS_ITS | Encounter Summary ---
:1945 Author Organization [facility] Address [address] [facility], [address] [place] [address] Care Team Providers Name Role Phone Kevin Miranda MD Primary Care Provider Encounter Details Date Type Department Care Team Description 02/05/2020 [facility] Kevin Miranda MD [address] [place] [address] [place] [address] [phone] (Wo rk) Social History Tobacco Use Types [...] Visit Family Medicine Kevin Miranda MD [address] [place] [address] (Wo rk) documented as of this encounter Visit Diagnoses Not on filedocumented in this encounter Care Teams Rotary Soil Stabilizer Relationship Specialty Start Date End Date Kevin Miranda MD PCP - General Family Medicine 11/20/[address] [place] [address] documented as of this encounter
--- OUTSIDE RECORDS SUMMARY | 2021-12-05 15:31 | XMS_ITS | Encounter Summary ---
:1945 Author Organization [facility] Address [address] [facility], [address] [place] [address] Care Team Providers Name Role Phone Kevin Miranda MD Primary Care Provider Encounter Details Date Type Department Care Team Description 05/14/2020 [facility] Miranda MD [address] [place] [address] [place] [address] [phone] (Wo rk) Social History Tobacco Use Types [...] Visit Family Medicine Kevin Miranda MD [address] [place] [address] (Wo rk) documented as of this encounter Visit Diagnoses Not on filedocumented in this encounter Care Teams Glass Crusher Relationship Specialty Start Date End Date Kevin Miranda MD PCP - General Family Medicine 11/20/19 1020 [place] [address] documented as of this encounter
--- OUTSIDE RECORDS SUMMARY | 2021-12-05 15:31 | XMS_ITS | Encounter Summary ---
:1945 Author Organization [facility] Address [address] [facility], [address] [place] [address] Care Team Providers Name Role Phone Kevin Miranda MD Primary Care Provider Encounter Details Date Type Department Care Team Description 03/05/2020 Scan Document - View Kaushik [employer] [employer] Kevin Miranda, in Chart Practice [address] [place] [address] [place], [place] [phone] Social History Tobacco Use Types Packs/Day Years [...] Visit Family Medicine Kevin Miranda MD [address] [place] [address] (Wo rk) documented as of this encounter Visit Diagnoses Not on filedocumented in this encounter Care Teams Rice Milling Supervisor Relationship Specialty Start Date End Date Kevin Miranda MD PCP - General Family Medicine 11/20/19 1020 [place] [address] documented as of this encounter
--- OUTSIDE RECORDS SUMMARY | 2021-12-05 15:31 | XMS_ITS | Encounter Summary ---
:1945 Author Organization [facility] Address [address] [facility], [address] [place] [address] Care Team Providers Name Role Phone Kevin [...] Visit Family Medicine Kevin Miranda MD [address] [place] [address] (Wo rk) documented as of this encounter Visit Diagnoses Not on filedocumented in this encounter Care Teams International Logistics Manager Relationship Specialty Start Date End Date Kevin Miranda MD PCP - General Family Medicine 11/20/[address] [place] [address] documented as of this encounter
--- OUTSIDE RECORDS SUMMARY | 2021-12-05 15:31 | XMS_ITS | Encounter Summary ---
:1945 Author Organization [facility] Address [address] [facility], [address] [place] [address] Care Team Providers Name Role Phone Kevin Miranda MD Primary Care Provider Reason for Visit Reason Comments Diverticulitis Encounter Details Date Type Department Care Team Description 12/05/2019 Office Visit [facility], Diverticuli tis of large [facility] Michele Wills MD intestine with abscess [address] [facility], [address] without [address] [place] [address] [phone] Social History Tobacco Use Types Packs/Day Years [...] Visit Family Medicine Kevin Miranda MD [address] [place] [address] (Wo rk) documented as of this encounter Visit Diagnoses Diagnosis Diverticulitis of large intestine with a bscess without bleeding documented in this encounter Care Teams Senior Manufacturing Technician Relationship Specialty Start Date End Date Kevin Miranda MD PCP - General Family Medicine 11/20/[address] [place] [address] documented as of this encounter
--- OUTSIDE RECORDS SUMMARY | 2021-12-05 15:31 | XMS_ITS | Encounter Summary ---
:1945 Author Organization [facility] Address [address] [facility], [address] [place] [address] Care Team Providers Name Role Phone Kevin [...] Visit Family Medicine Kevin Miranda MD [address] [place] [address] (Wo rk) documented as of this encounter Visit Diagnoses Not on filedocumented in this encounter Care Teams Private Branch Exchange Service Adviser Relationship Specialty Start Date End Date Kevin Miranda MD PCP - General Family Medicine 11/20/[address] [place] [address] documented as of this encounter
--- OUTSIDE RECORDS SUMMARY | 2021-12-05 15:31 | XMS_ITS | Encounter Summary ---
:1945 Author Organization [facility] Address [address] [facility], [address] [place] [address] Care Team Providers Name Role Phone Kevin Miranda MD Primary Care Provider Encounter Details Date Type Department Care Team Description 09/10/2020 Scan Document - View Kaushik [facility] Kevin Miranda, in Chart Practice [address] [place], [place] [address] [place], [place] [phone] Social History Tobacco Use Types Packs/Day Years Used Date Former Smoker Smokeless Tobacco: Never Used Alcohol Use Standard Drinks/Week Comments Yes 5 (1 standard drink = 0.6 oz pure alcoho l) Sex Assigned at Date Recorded Female 04/12/2019 2:19 PM EST documented as of this encounter Plan of Treatment Upcoming Encounters Date Type Specialty Care Team Description 04/19/2022 Office Visit Family Medicine Kvein Miranda MD [address] [place] [address] (Wo rk) documented as of this encounter Visit Diagnoses Not on filedocumented in this encounter Care Teams Slubber Frame Changer Relationship Specialty Start Date End Date Kevin Miranda MD PCP - General Family Medicine 11/20/[address] [place] [address] documented as of this encounter
--- OUTSIDE RECORDS SUMMARY | 2021-12-05 15:31 | XMS_ITS | Encounter Summary ---
:1945 Author Organization [facility] Address [address] [facility], [address] [place] [address] Care Team Providers Name Role Phone Kevin [...] Visit Family Medicine Kevin Miranda MD [address] [place] [address] (Wo rk) documented as of this encounter Visit Diagnoses Not on filedocumented in this encounter Care Teams Sheetmetal Patternmaker Relationship Specialty Start Date End Date Kevin Miranda MD PCP - General Family Medicine 11/20/[address] [place] [address] documented as of this encounter
--- OUTSIDE RECORDS SUMMARY | 2021-12-05 15:31 | XMS_ITS | Encounter Summary ---
:1945 Author Organization [facility] Address [address] [facility], [address] [place] [address] Care Team Providers Name Role Phone Kevin Miranda MD Primary Care Provider Encounter Details Date Type Department Care Team Description 03/27/2020 Scan Document - View Kaushik [facility] Kevin Miranda, in Chart Practice [address] [place], [place] [address] [place], [place] [phone] Social History Tobacco Use Types Packs/Day Years [...] Office Visit Family Medicine Kevin Miranda MD [address] [place] [address] (Wo rk) documented as of this encounter Visit Diagnoses Not on filedocumented in this encounter Care Teams Psychologist Developmental Relationship Specialty Start Date End Date Kevin Miranda MD PCP - General Family Medicine 11/20/[address] [place] [address] documented as of this encounter
--- OUTSIDE RECORDS SUMMARY | 2021-12-05 15:31 | XMS_ITS | Encounter Summary ---
:1945 Author Organization [facility] Address [address] [facility], [address] [place] [address] Care Team Providers Name Role Phone Kevin Miranda MD Primary Care Provider Encounter Details Date Type Department Care Team Description 12/07/2020 Scan Document - View Kaushik [facility] Kevin Miranda, in Chart Practice [address] [place] [address] [place], [place] [address] [place], [place] [phone] Social History Tobacco Use Types Packs/Day Years [...] Visit Family Medicine Kevin Miranda MD [address] [place] [address] (Wo rk) documented as of this encounter Visit Diagnoses Not on filedocumented in this encounter Care Teams Medical Appointment Clerk Relationship Specialty Start Date End Date Kevin Miranda MD PCP - General Family Medicine 11/20/[address] [place] [address] documented as of this encounter
--- OUTSIDE RECORDS SUMMARY | 2021-12-05 15:31 | XMS_ITS | Encounter Summary ---
:1945 Author Organization [facility] Address [address] [facility], [address] [place] [address] Care Team Providers Name Role Phone Kevin Miranda MD Primary Care Provider Encounter Details Date Type Department Care Team Description 07/09/2021 Telemedicine KaushikYadi [facility] Practice MONAE thigh, initial [address] Parul encounter (Primary Dx) [place] [address] [place], [place] [phone] Social History Tobacco Use Types Packs/Day Years [...] dark spotin the middle of the red squaxin on her right thigh, this looked similar to previous tick bites that she and her have had. She never saw an actual tick but recalls feeling something (like a scratch) in the same area 3 days ago when she was walking around [place]. She did not think anything of it [...] All questions answered. Telemedicine Communication method: Video ([email or web address]) The physical location of the patient: [place] ([place], [place]) The physical location of the provider: [place] [...] Visit Family Medicine Kevin Miranda MD [address] [place] [address] (Wo rk) documented as of this encounter Visit Diagnoses Diagnosis Tick bite of right thigh, initial encoun ter - Primary documented in this encounter Care Teams Agile Scrum Coach Relationship Specialty Start Date End Date Kevin Miranda MD PCP - General Family Medicine 11/20/19 1020 [place] [address] documented as of this encounter
--- OUTSIDE RECORDS SUMMARY | 2021-12-05 15:31 | XMS_ITS | Encounter Summary ---
:1945 Author Organization [facility] Address [address] [facility], [address] [place] [address] Care Team Providers Name Role Phone Kevin Miranda MD Primary Care Provider Reason for Referral Diagnostic Imaging (Routine) - Closed Specialty Diagnoses / Procedures Referred By Contact Refer red To Contact Radiology Diagnoses Osteopenia, unspecified location Kevin Miranda MD Procedures DEXA [facility] D[facility] [address] [place] [address] Referral ID Status Reason Start Date Expiration Date Visits Requ ested Visits Authorized [id number] Closed 01/07/2020 01/06/2021 1 1 Encounter Details Date Type Department Care Team Description 01/07/2020 Orders Only Kevin Trimble Osteope nia, unspecified Practice location (Primary Dx) [facility] [place] [address] [place] [address] Social History Tobacco Use Types Packs/Day Years [...] Visit Family Medicine Kevin Miranda MD [address] [place], [place] [address] (Wo rk) documented as [...] sheets). Dictated: 03/25/2020 1:12 PM Report ID: [id number] Report signed in external system at 03/25 13:12 Reported By: Joshua Arora M.D. ([facility]) Signed By: Joshua Arora M.D. ([facility]) Narrative 03/25/2020 1:12 PM EST RESPONSIBLE SAFETY INTERN: Joshua Arora M.D. EXAMINATION: DEXA BONE DENSITY CENTRAL CLINICAL INDICATION: Osteoporosis screening. ??Post menopause . TECHNIQUE: Dual Energy X-Ray Absorptiometry (DEXA t [facility]) was performed with measurements of the [...] might be different from the original. RESPONSIBLE SAFETY INTERN: Joshua Arora M.D. EXAMINATION: DEXA BONE DENSITY CENTRAL CLINICAL INDICATION: Osteoporosis screening. Post menopause. TECHNIQUE: Dual Energy X-Ray Absorptiometry (DEXA t [facility]) was performed with measurements of the [...] sheets). Dictated: 03/25/2020 1:12 PM Report ID: [id number] Report signed in external system at 03/25 13:12 Reported By: Joshua Arora M.D. ([facility]) Signed By: Joshua Arora M.D. ([facility]) Kevin Miranda MD IMG DXA PROCEDURES documented in this encounter Visit Diagnoses Diagnosis Osteopenia, unspecified location - Prima ry Osteopenia, unspecified location documented in this encounter Care Teams Manager Relocation Relationship Specialty Start Date End Date Kevin Miranda MD PCP - General Family Medicine 11/20/19 1020 [place] [address] documented as of this encounter
--- OUTSIDE RECORDS SUMMARY | 2021-12-05 15:31 | XMS_ITS | Encounter Summary ---
:1945 Author Organization [facility] Address [address] [facility], [address] [place] [address] Care Team Providers Name Role Phone Kevin [...] Visit Family Medicine Kevin Miranda MD [address] [place] [address] (Wo rk) documented as of this encounter Visit Diagnoses Not on filedocumented in this encounter Care Teams Saw Maker Relationship Specialty Start Date End Date Kevin Miranda MD PCP - General Family Medicine 11/20/[address] [place] [address] documented as of this encounter
--- OUTSIDE RECORDS SUMMARY | 2021-12-05 15:32 | XMS_ITS | Encounter Summary ---
:1945 Author Organization [facility] Address [address] [facility], [address] [place] [address] Care Team Providers Name Role Phone Laurie Elias NP Primary Care Provider Unavailable Reason for Visit Reason Onset Date Comments My chart message: night sweats 05/09/2019 Encounter Details Date Type Department Care Team Description 05/09/2019 Telephone [facility] Paula Miranda, Nathalia remington t message: night Practice MD sweats [address] [place], [place] [id number] Social History Tobacco Use Types Packs/Day Years [...] etc... She is planning on going to [place] and is worried about possible recurrence of [...] Visit Family Medicine Kevin Miranda MD [address] [place] [address] (Wo rk) documented as of this encounter Visit Diagnoses Not on filedocumented in this encounter Care Teams Forensic Science Examiner Relationship Specialty Start Date End Date Laurie Elias NP PCP - General Family Medicine 03/02/1811/19/19 documented as of this encounter
--- OUTSIDE RECORDS SUMMARY | 2021-12-05 15:32 | XMS_ITS | Encounter Summary ---
:1945 Author Organization [facility] Address 330 [facility], [address] [place] [address] Care Team Providers Name Role Phone Jada Laurie ANN Primary Care Provider Unavailable Encounter Details Date Type Department Care Team Description 04/13/2019 Telephone [facility] zurita MD Consultants [address] [facility], [address] [facility] t, [facility] [address] [address] [phone] (Wo rk) Social History Tobacco Use Types [...] Kevin Miranda MD [address] [facility] [place] [address] (Wo rk) documented as of this encounter Visit Diagnoses Not on filedocumented in this encounter Care Teams Cell Plasterer Relationship Specialty Start Date End Date Laurie Elias NP PCP - General Family Medicine 03/02/1811/19/19 documented as of this encounter
--- OUTSIDE RECORDS SUMMARY | 2021-12-05 15:32 | XMS_ITS | Encounter Summary ---
:1945 Author Organization [facility] Address [address] [facility], [address] [place] [address] Care Team Providers Name Role Phone Kevin Miranda MD Primary Care Provider Reason for Referral Diagnostic Imaging (Routine) - Closed Specialty Diagnoses / Procedures Referred By Contact Refer red To Contact Diagnoses Hip pain, right Antolin Montana MD Procedures X-ray Hip 2-3 Views Right (Pelvis Optional) [address] [place] [address] Referral ID Status Reason Start Date Expiration Date Visits Requ ested Visits Authorized [id number] Closed 02/06/2019 02/06/2020 1 1 Encounter Details Date Type Department Care Team Description 02/06/2019 Ancillary Orders [facility] Antolin Montana, Hip pain, right Ultrasound [address] [facility] [address] [place], [place] [phone] [id number] [phone] Social History Tobacco Use Types Packs/Day Years [...] Visit Family Medicine Kevin Miranda MD [address] [place], [place] [address] (Wo rk) documented as [...] ation. Dictated: 02/06/2019 3:47 PM Report ID: [id number] Report signed in external system at 01/15 15:47 Reported By: Srinivasan Olson M.D. (resident ) ([id number]) Signed By: Jacoby Cunningham M.D. (HE ) Narrative 02/06/2019 3:47 PM EST RESPONSIBLE ACCOUNTS RECEIVABLE CLERK: Jacoby Cunningham M.D. EXAMINATION: XR HIP 2-3 [...] might be different from the original. RESPONSIBLE ACCOUNTS RECEIVABLE CLERK: Jacoby Cunningham M.D. EXAMINATION: XR HIP 2-3 [...] ation. Dictated: 02/06/2019 3:47 PM Report ID: [id number] Report signed in external system at 01/15 15:47 Reported By: Srinivasan Olson M.D. (resident ) ([id number]) Signed By: Jacoby Cunningham M.D. ([facility] ) Antolin Montana MD IMG XR PROCEDURES documented in this encounter Visit Diagnoses Diagnosis Hip pain, right Pain in joint, pelvic region and thigh Hip pain, right Pain in joint, pelvic region and thigh documented in this encounter Care Teams Emergency Department Aide Relationship Specialty Start Date End Date Kevin Miranda MD PCP - General Family Medicine 11/20/[address] [place] [address] documented as of this encounter
--- OUTSIDE RECORDS SUMMARY | 2021-12-05 15:32 | XMS_ITS | Encounter Summary ---
:1945 Author Organization [facility] Address [address] [facility], [address] [place] [address] Care Team Providers Name Role Phone Laurie Elias DINING CAR WAITER/WAITRESS Primary Care Provider Unavailable Encounter Details Date [...] Visit Family Medicine Kevin Miranda MD [address] [place] [address] (Wo rk) documented as of this encounter Visit Diagnoses Not on filedocumented in this encounter Care Teams Svp Marketing Relationship Specialty Start Date End Date Laurie Elias NP PCP - General Family Medicine 03/02/1811/19/19 documented as of this encounter
--- OUTSIDE RECORDS SUMMARY | 2021-12-05 15:32 | XMS_ITS | Encounter Summary ---
:1945 Author Organization [facility] Address 330 [facility], [address] [place] [address] Care Team Providers Name Role Phone Kevin Miranda MD Primary Care Provider Reason for Visit Auth/Cert Specialty Diagnoses / Procedures Referred By Contact Refer red To Contact Diagnoses Pericolonic abscess Procedures n/a Referral ID Status Reason Start Date Expiration Date Visits Requ ested Visits Authorized [id number] 1 1 Encounter Details Date Type Department Care Team Description 04/12/2019 Billing Encounter [facility] Main Lab Kevin Miranda MD 330 [facility] e[address] [place] [address] [place], [place] [phone] (Wo raine) Social History Tobacco Use Types [...] Visit Family Medicine Kevin Miranda MD [address] [place] [address] (Wo raine) documented as of this encounter Visit Diagnoses Not on filedocumented in this encounter Care Teams Control System Computer Scientist Relationship Specialty Start Date End Date Kevin Miranda MD PCP - General Family Medicine 11/20/19 [address] [place] [address] documented as of this encounter
--- OUTSIDE RECORDS SUMMARY | 2021-12-05 15:32 | XMS_ITS | Encounter Summary ---
:1945 Author Organization [facility] Address [address] [facility], [address] [place] [address] Care Team Providers Name Role Phone Laurie Elias NP Primary Care Provider Unavailable Encounter Details Date Type Department Care Team Description 03/07/2019 Refill [facility] actLaurie Carr NP [facility] [place] [address] Social History Tobacco Use Types Packs/Day Years [...] Visit Family Medicine Kevin Miranda MD [address] [place], [place] [address] (Wo rk) documented as of this encounter Visit Diagnoses Not on filedocumented in this encounter Care Teams Keyboard Action Assembler Relationship Specialty Start Date End Date Laurie Elias NP PCP - General Family Medicine 03/02/1811/19/19 documented as of this encounter
--- OUTSIDE RECORDS SUMMARY | 2021-12-05 15:32 | XMS_ITS | Encounter Summary ---
:1945 Author Organization [facility] Address [address] [facility], [address] [place] [address] Care Team Providers Name Role Phone Laurie Elias NP Primary Care Provider Unavailable Reason for Referral Diagnostic Imaging (Routine) - Closed Specialty Diagnoses / Procedures Referred By Contact Refer red To Contact Radiology Diagnoses Diverticulitis Kevin Miranda MD Procedures CT Abdomen Pelvis with Contrast [address] [place] [address] Referral ID Status Reason Start Date Expiration Date Visits Requ ested Visits Authorized [id number] Closed 04/12/2019 04/11/2020 1 1 Encounter Details Date Type Department Care Team Description 04/12/2019 Office Visit Kevin Trimble, Acute c ystitis with hematuria (Primary Dx); Practice Diverticulitis [facility] [place] [address] [place] [address] [place], [place] [phone] Social History Tobacco Use Types Packs/Day Years [...] Visit Family Medicine Kevin Miranda MD [address] [place] [address] (Wo rk) documented as of [...] 04/12/2019. Dictated: 04/12/2019 8:31 PM Report ID: [id number] Report signed in external system at 04/12 20:31 Reported By: Reggie Padilla Jr., M.D. ( CUSG) Signed By: Reggie Padilla Jr., M.D. (CU SG) Narrative 04/12/2019 8:31 PM EST RESPONSIBLE INSTANT PRINT OPERATOR: Reggie Padilla Jr., M.D. EXAMINATION: CT [...] might be different from the original. RESPONSIBLE INSTANT PRINT OPERATOR: Reggie Padilla Jr., M.D. EXAMINATION: CT [...] 04/12/2019. Dictated: 04/12/2019 8:31 PM Report ID: [id number] Report signed in external system at 04/12 20:31 Reported By: Reggie Padilla Jr., M.D. ( CUSG) Signed By: Reggie Padilla Jr., M.D. ([facility]) Kevin Miranda MD IMG CT PROCEDURES (ABNORMAL) Comprehensive metabolic panel (04/12/2019 2:31 PM EST) [facility] Method Time Signature Sodium 136 (L) 137 - 145 04/12/2019 [place] mmol/L 2:56 PM [facility] Potassium 4.4 3.5 - 5.1 04/12/2019 [place] mmol/L 2:56 PM [facility] CHLORIDE 99 98 - 107 04/12/2019 [place] mmol/L 2:56 PM [facility] CARBON DIOXIDE, 29.0 22.0 - 04/12/2019 [place] TOTAL 30.0 2:56 PM [facility] mmol/L LABORATORY ANION GAP 8.0 6 - 14 04/12/2019 [place] 2:56 PM [facility] GLUCOSE 109 (H) 70 - 99 04/12/2019 [facility] mg/dL 2:56 PM [facility] CALCIUM 9.5 8.3 - 10.3 04/12/2019 [facility] mg/dL 2:56 PM [facility] CREATININE 0.6 0.5 - 1.0 04/12/2019 [place] mg/dL 2:56 PM [facility] ALBUMIN 3.8 3.5 - 5.0 04/12/2019 [facility] g/dL 2:56 PM [facility] Bilirubin Total 0.4 0.2 - 1.3 04/12/2019 [place] mg/dL 2:56 PM [facility] BILIRUBIN DIRECT 0.3 0.0 - 0.4 04/12/2019 [place] mg/dL 2:56 PM [facility] ALKALINE 104 38 - 126 04/12/2019 [place] PHOSPHATASE U/L 2:56 PM [facility] AST (SGOT) 39 15 - 46 04/12/2019 [place] U/L 2:56 PM [facility] ALT 45 13 - 69 04/12/2019 [place] U/L 2:56 PM [facility] GFR >60 04/12/2019 [place] 2:56 PM [facility] PROTEIN TOTAL 6.7 6.3 - 8.2 04/12/2019 [place] g/dL 2:56 PM [facility] BUN 12 7 - 17 04/12/2019 [place] mg/dL 2:56 PM [facility] Specimen Anatomical Collection Method / Collection Time Recei nancy Time (Source) Location / Volume Laterality Blood Venous blood / Venipuncture / 04/12/2019 2:31 04/12/19 20 2:31 Unknown Unknown PM [facility] EST Kevin Miranda MD LAB BLOOD ORDERABLES Performing Organization Address City/State/ZIP Code Phon e Number [facility] [address] [address] LABORATORY CBC (04/12/2019 2:31 PM EST) P athologist Signature WBC 7.00 4.00 to 04/12/2019 [place] 11.00 x 2:42 PM [facility] 10*3u/L LABORATORY 10*3/uL nRBC 0 0 - 0 /100 04/12/2019 [place] WBCs 2:42 PM [facility]ATORY RBC 4.28 3.90 to 04/12/2019 [place] 5.20 x 2:42 PM [facility] 10*6/uL LABORATORY 10*6/uL HGB 13.6 12.0 to 04/12/2019 [place] 16.0 g/dL 2:42 PM [facility] g/dL LABORATORY HCT 40.0 36.0% to 04/12/2019 [place] 46.0% % 2:42 PM [facility]ORY MCV 93.5 80.0 to 04/12/2019 [place] 100.0 fL fL 2:42 PM [facility] MCH 31.8 26.0 - 33.0 04/12/2019 [place] pg 2:42 PM [facility] MCHC 34.0 31.0 to 04/12/2019 [place] 37.0 g/dL 2:42 PM [facility] g/dL LABORATORY PLT 295 150 to 350 04/12/2019 [place] x 10*3u/l 2:42 PM [facility] 10*3u/L LABORATORY RDW-CV 13.0 11.5 - 14.5 04/12/2019 [place] % 2:42 PM [facility] Specimen Anatomical Collection Method / Collection Time Recei nancy Time (Source) Location / Volume Laterality Blood Venous blood / Venipuncture / 04/12/2019 2:31 04/12/19 20 2:31 Unknown Unknown PM EST PM EST Kevin Miranda MD LAB BLOOD ORDERABLES Performing Organization Address City/State/ZIP Code Phon e Number [facility] [address] [address] LABORATORY (ABNORMAL) Urine culture (04/12/2019 1:53 PM EST) Analysis Performed At [employer] Time Signature Urine Culture (A) [facility] Comment: ??CULTURE, URINE, ROUTINE ?Micro Number: ?[id number] ??Test Status: ? Final ??Specimen Source: ?? [...] Organization Address City/State/ZIP Code Phon e Number [facility] [address] [phone] [place] [address], [address] [facility] [address] [place] [address], [facility] [address] [id number] Diagnost POCT urinalysis dipstick (04/12/2019 1:39 PM EST) [facility] gist Method Time Signature Color, UA Yellow [...] hemorrhage) documented in this encounter Care Teams Commercial Production Editor Relationship Specialty Start Date End Date Laurie Elias NP PCP - General Family Medicine 03/02/1811/19/19 documented as of this encounter
--- OUTSIDE RECORDS SUMMARY | 2021-12-05 15:32 | XMS_ITS | Encounter Summary ---
:1945 Author Organization [facility] Address 330 [facility], [address] [place] [address] Care Team Providers Name Role Phone Laurie Elias NP Primary Care Provider Unavailable Reason for Referral Specialty (Routine) - Closed Specialty Diagnoses / Procedures Referred By Contact Refer red To Contact Otolaryngology Diagnoses Tinnitus of right ear Kevin Miranda MD [address] [place] [address] Referral ID Status Reason Start Date Expiration Date Visits V isits Requested Authorized [id number] Closed Specialty 01/22/2019 01/22/2020 1 1 Services Required iagnostic Imaging (Routine) - Closed Specialty Diagnoses / Procedures Referred By Contact Refer red To Contact Diagnoses Dense breasts Kevin Miranda MD Procedures Ultrasound Breast Screening Automated Breast Volume Scanner (ABVS) Bilateral *screening ultrasounds only* [address] [place] [address] Referral ID Status Reason Start Date Expiration Date Visits Requ ested Visits Authorized [id number] Closed 01/22/2019 01/22/2020 1 1 iagnostic Imaging (Routine) - Closed Specialty Diagnoses / Procedures Referred By Contact Refer red To Contact Radiology Diagnoses Dense breasts Kevin Miranda MD Procedures MAMMOGRAPHY SCREENING MAMMOGRAM [address] [place] [address] Referral ID Status Reason Start Date Expiration Date Visits Requ ested Visits Authorized [id number] Closed 01/22/2019 01/22/2020 1 1 Reason for Visit Reason Comments Cerumen Impaction Encounter Details Date Type Department Care Team Description 01/22/2019 Office Visit Kevin Trimble Diverti culdavina (Primary Dx); Practice MD Tinnitus of right ear; [address] Hiatal hernia with GERD; [place] [address] [place], [place] Dense breasts [phone] Social History Tobacco Use Types Packs/Day Years [...] my presence by the student and/or medical specialist and verified by me. This note [...] Office Visit Family Medicine Kevin Miranda MD [facility]0 [place], [place] [address] (Wo rk) Scheduled Orders [...] mammogram documented in this encounter Care Teams Electric Tripper Machine Operator Relationship Specialty Start Date End Date Laurie Elias NP PCP - General Family Medicine 03/02/1811/19/19 documented as of this encounter
--- OUTSIDE RECORDS SUMMARY | 2021-12-05 15:32 | XMS_ITS | Encounter Summary ---
:1945 Author Organization [facility] Address [address] [facility], [address] [place] [address] Care Team Providers Name Role Phone Laurie Elias MOBILITY SPECIALIST Primary Care Provider Unavailable Encounter Details Date Type Department Care Team Description 03/06/2019 Orders Only [facility] actManpreet Ferrer [place] [address] [place] [address] Social History Tobacco Use Types Packs/Day Years [...] Visit Family Medicine Kevin Miranda MD [address] [place], [place] [address] (Wo rk) documented as of this encounter Visit Diagnoses Not on filedocumented in this encounter Care Teams General Internal Medicine Doctor Relationship Specialty Start Date End Date Laurie Elias NP PCP - General Family Medicine 03/02/1811/19/19 documented as of this encounter
--- OUTSIDE RECORDS SUMMARY | 2021-12-05 15:32 | XMS_ITS | Encounter Summary ---
:1945 Author Organization [facility] Address [address] [facility], [address] [place] [address] Care Team Providers Name Role Phone Laurie Elias RESTAURANT HOURLY MANAGER Primary Care Provider Unavailable Encounter Details Date Type Department Care Team Description 02/06/2019 Scan Document - View VillanuevaPaula Al, in Chart Practice [address] [place] [address] [phone] Social History Tobacco Use Types Packs/Day Years [...] Visit Family Medicine Kevin Miranda MD [address] [place] [address] (Wo rk) documented as of this encounter Visit Diagnoses Not on filedocumented in this encounter Care Teams Regional Operations Director Relationship Specialty Start Date End Date Laurie Elias NP PCP - General Family Medicine 03/02/1811/19/19 documented as of this encounter
--- OUTSIDE RECORDS SUMMARY | 2021-12-05 15:32 | XMS_ITS | Encounter Summary ---
:1945 Author Organization [facility] Address [address] [facility], [address] [place] [address] Care Team Providers Name Role Phone Laurie Elias ELECTRIC LOCOMOTIVE CRANE OPERATOR Primary Care Provider Unavailable Encounter Details Date Type Department Care Team Description 01/24/2019 Scan Document - View Trini Gómez in Chart Practice ELECTRIC LOCOMOTIVE CRANE OPERATOR [facility] [place] [address] Social History Tobacco Use Types Packs/Day Years [...] Visit Family Medicine Kevin Miranda MD [address] [place] [address] (Wo rk) documented as of this encounter Visit Diagnoses Not on filedocumented in this encounter Care Teams Welder Production Line Arc Relationship Specialty Start Date End Date Laurie Elias NP PCP - General Family Medicine 03/02/1811/19/19 documented as of this encounter
--- OUTSIDE RECORDS SUMMARY | 2021-12-05 15:32 | XMS_ITS | Encounter Summary ---
:1945 Author Organization [facility] Address [address] [facility], [address] [place] [address] Care Team Providers Name Role Phone Laurie Elias NP Primary Care Provider Unavailable Reason for Referral Diagnostic Imaging (Routine) - Closed Specialty Diagnoses / Procedures Referred By Contact Refer red To Contact Radiology Diagnoses Diverticulitis Kevin Miranda MD Procedures CT Abdomen Pelvis with Contrast [address] [place] [address] Referral ID Status Reason Start Date Expiration Date Visits Requ ested Visits Authorized [id number] Closed 04/12/2019 04/11/2020 1 1 Reason for Visit Auth/Cert Specialty Diagnoses / Procedures Referred By Contact Refer red To Contact Diagnoses Pericolonic abscess Procedures n/a Referral ID Status Reason Start Date Expiration Date Visits Requ ested Visits Authorized [id number] 1 1 Encounter Details Date Type Department Care Team Description 04/12/2019 Hospital Encounter [facility] CT Kevin Ken MD Scan [address] [place] [address] [place] [address] [phone] Social History Tobacco Use Types Packs/Day Years [...] Visit Family Medicine Kevin Miranda MD [address] [place], [place] [address] (Wo rk) documented as [...] 04/12/2019. Dictated: 04/12/2019 8:31 PM Report ID: [id number] Report signed in external system at 04/12 20:31 Reported By: Reggie Padilla Jr., M.D. ( CUSG) Signed By: Reggie Padilla Jr., M.D. ([facility] SG) Narrative 04/12/2019 8:31 PM EST RESPONSIBLE RUBBER COMPOUNDER MIXER: Reggie Padilla Jr., M.D. EXAMINATION: CT ABDOMEN [...] might be different from the original. RESPONSIBLE RUBBER COMPOUNDER MIXER: Reggie Padilla Jr., M.D. EXAMINATION: CT ABDOMEN [...] 04/12/2019. Dictated: 04/12/2019 8:31 PM Report ID: [id number] Report signed in external system at 04/12 [...] dose documented in this encounter Care Teams Washateria Attendant Relationship Specialty Start Date End Date Laurie Elias NP PCP - General Family Medicine 03/02/1811/19/19 documented as of this encounter
--- OUTSIDE RECORDS SUMMARY | 2021-12-05 15:32 | XMS_ITS | Encounter Summary ---
:1945 Author Organization [facility] Address [address] [facility], [address] [place] [address] Care Team Providers Name Role Phone Jada Laurie ANN Primary Care Provider Unavailable Encounter Details Date Type Department Care Team Description 04/13/2019 Telephone [facility] Kevin Crowe MD [facility]0 [place] [address] [place], [place] [address] [place] [address] [phone] (Wo rk) Social History Tobacco Use Types [...] AM at home). She is referred to [facility] ED for treatment and she agrees. ED called and case reported prior to her arrival. documented in this encounter Plan of Treatment Upcoming Encounters Date Type Specialty Care Team Description 04/19/2022 Office Visit Family Medicine Kevin Miranda MD 10[address] [facility] [place] [address] (Wo rk) documented as of this encounter Visit Diagnoses Not on filedocumented in this encounter Care Teams Sales Order Specialist Relationship Specialty Start Date End Date Laurie Elias NP PCP - General Family Medicine 03/02/1811/19/19 documented as of this encounter
--- OUTSIDE RECORDS SUMMARY | 2021-12-05 15:32 | XMS_ITS | Encounter Summary ---
:1945 Author Organization [facility] Address [address] [facility], [address] [place] [address] Care Team Providers Name Role Phone Laurie Elias VAULT CUSTODIAN Primary Care Provider Unavailable Encounter Details Date Type Department Care Team Description 03/08/2019 Orders Only [facility] actLaurie Carr NP [facility] [place] [address] Social History Tobacco Use Types Packs/Day Years [...] Visit Family Medicine Kevin Miranda MD [address] [place], [place] [address] (Wo rk) documented as of this encounter Visit Diagnoses Not on filedocumented in this encounter Care Teams Legal Assistant Relationship Specialty Start Date End Date Laurie Elias NP PCP - General Family Medicine 03/02/1811/19/19 documented as of this encounter
--- OUTSIDE RECORDS SUMMARY | 2021-12-05 15:32 | XMS_ITS | Encounter Summary ---
:1945 Author Organization [facility] Address [address] [facility], [address] [place] [address] Care Team Providers Name Role Phone Laurie Elias NP Primary Care Provider Unavailable Reason for Visit Reason Comments Fever Encounter Details Date Type Department Care Team Description 04/09/2019 Office Visit Kevin Trimble, Viet c ystitis with hematuria (Primary Dx); Practice Diverticulitis [facility] [place] [address] [place] [address] [place], [place] [phone] Social History Tobacco Use Types Packs/Day Years [...] were performed in my presence by the clinical medical transcriptionist and verified by me. This note is an accurate record of the services performed and decisions made by Kevin Miranda MD. documented in this encounter Plan of Treatment Upcoming Encounters Date Type Specialty Care Team Description 04/19/2022 Office Visit Family Medicine Kevin Miranda MD [address] [place], [place] [address] (Wo rk) documented as [...] (04/09/2019 4:48 PM EST) Analysis Performed At [facility] Time Signature Urine Culture (A) [facility] Comment: ??CULTURE, URINE, ROUTINE ?Micro Number: ?[id number] ??Test Status: ? Final ??Specimen Source: ?? [...] Organization Address City/State/ZIP Code Phon e Number [employer] [address] [id number] [place] [address] [employer] [address] [place], [place] [address] [address] [id number] Diagnost POCT Urinalysis dipstick (04/09/2019 4:14 PM EST) [facility] gist Method Time Signature Color, UA Yellow [...] hemorrhage) documented in this encounter Care Teams Wire Bound Box Machine Helper Relationship Specialty Start Date End Date Laurie Elias NP PCP - General Family Medicine 03/02/1811/19/19 documented as of this encounter
--- OUTSIDE RECORDS SUMMARY | 2021-12-05 15:32 | XMS_ITS | Encounter Summary ---
:1945 Author Organization [facility] Address [address] [facility], [address] [place] [address] Care Team Providers Name Role Phone Kevin Miranda MD Primary Care Provider Encounter Details Date Type Department Care Team Description 11/23/2019 Office Visit Kaushik Miranda, Encounter for Medicare annual wellness exam (Primary Dx); Practice MD Kevin Other emphysema ([facility]); [address] Gastroesophageal reflux disease without esophagitis; [place] [address] [place] Insomnia, unspecified type; [phone] Osteopenia, unspecified location; [phone] Primary osteoar thritis of right hip; (Work) Spasm of muscle of lower back; [phone] Need for influe nza vaccination; (Fax) Screening [...] file Gets together: Not on file Attends yazidi service: Not on file Active member of [...] with and son. Works 1 day/wk at [employer], likes it. Meditates, swims, involved in [employer], reads. Current Outpatient Medications Medication Sig [...] recommended due to inadequate prep at sigmoid ([id number]) Skin cancer prevention and symptoms discussed, encouraged [...] 11/25/2019 12:12 PM EDTAssociated Problem(s): Other emphysema ([facility]) Dx via PFT in 11/30, mild obstruction. [...] Visit Family Medicine Kevin Miranda MD [address] [place], [place] [address] (Wo rk) documented as [...] (11/23/2019 2:18 PM EDT) Analysis Performed At [facility] logis Time Signature Vitamin D 25 34 30 - 100 [place] [facility] Hydroxy,Total ng/mL [facility] Comment: Vitamin D Status ? 25-OH Vitam in D: Deficiency: ?<20 ng/mL Insufficiency: ? 20 - 29 ng/mL Optimal: ? > or = 30 ng/mL For 25-OH Vitamin D testing on patients on D2-supplementation and patients for whom quantitation of D2 and D3 fractions is required, the QuestAssureD(TM) 25-OH VIT D, (D2,D3), LC/MS/MS is recomm ended: order code 57003 (patients >2yrs). See Note 1 Note 1 For additional information, please refer to http://education.Social 2 Step.Extenda-Dent/fa q/KPH335 (This link is being provided for informa tional/ educational purposes only.) Specimen Anatomical Collection Method Collection Time Receive d Time (Source) Location / / Volume Laterality Blood Venous blood / 11/23/2019 2:18 PM 020 2:19 Unknown EDT PM EDT Kevin Miranda MD LAB BLOOD ORDERABLES Performing Organization Address City/State/ZIP Code Phon e Number [place] [id number] [address] [phone] [place] [address], [address] [place] [facility] [address] [place] [address], [facility] [employer] [address] [address] Diagn[facility] Basic Metabolic Panel - [facility] Only [...] 13% high er for people identified as -Italian. eGFR NON-AFR. 77 > OR = 60 mL/min/1.73m2 Qu est Diagnostics [facility] eGFR 89 > OR = 60 mL/min/1.73m2 Que st Diagnostics [facility] BUN/Creatinine NOT APPLICABLE 6 [...] Address City/State/ZIP Code Phon e Number [facility] [address] [phone] [place] [address] B [facility] [address] [place] [address], [facility] [employer] [address] [address] Diagnost (ABNORMAL) Lipid Panel, Standard - [facility] (11/23/2019 2:18 PM EDT) Patholo gist Method Time Signature Cholesterol, 228 (H) <200 [facility] Total mg/dL [facility] HDL Cholesterol 114 > OR = 50 [facility] ics mg/dL [facility] TRIGS 76 <150 [facility] mg/dL [facility] LDL Cholesterol 97 mg/dL [employer] (calc) [place] Comment: Reference range: <100 Desirable range <100 [...] SS et al. GEOVANNA. 2013;310(19): 206 1-2068 (http://education.GCW/f aq/TLO632) HDL 2.0 <5.0 (calc) [place] [facility] [place] Non HDL Chol. (LDL+VLDL) 114 <130 mg/dL (calc) [place] [facility] [place] [facility] Comment: For patients with diabetes plus 1 [...] Organization Address City/State/ZIP Code Phon e Number [place] [address] [phone] [facility] [address] [place] [address] [employer] [facility] [employer] [facility] [address] [address] Diagnost documented in this encounter Visit Diagnoses Diagnosis Encounter for Medicare annual wellness e xam - Primary Other emphysema ([facility]) Other emphysema Gastroesophageal reflux disease without esophagitis Esophageal reflux Insomnia, unspecified type Osteopenia, unspecified location Primary osteoarthritis of right hip Spasm of muscle of lower back Need for influenza vaccination Need for prophylactic vaccination and in oculation against influenza Screening for depression documented in this encounter Care Teams Image Processing Engineer Relationship Specialty Start Date End Date Kevin Miranda MD PCP - General Family Medicine 11/20/[address] [place], [place] [id number] documented as of this encounter
--- OUTSIDE RECORDS SUMMARY | 2021-12-05 15:32 | XMS_ITS | Encounter Summary ---
:1945 Author Organization [facility] Address [address] [facility], [address] [place] [address] Care Team Providers Name Role Phone Laurie Elias NP Primary Care Provider Unavailable Encounter Details Date Type Department Care Team Description 07/04/2019 Refill [facility] Pr Yessy Gee, [address] [place] [address] [place] [address] [place], [place] [address] (Wo rk) Social History Tobacco [...] Visit Family Medicine Kevin Miranda MD [address] [place], [place] [address] (Wo rk) documented as of this encounter Visit Diagnoses Not on filedocumented in this encounter Care Teams Dust Mop Maker Relationship Specialty Start Date End Date Laurie Elias NP PCP - General Family Medicine 03/02/1811/19/19 documented as of this encounter
--- OUTSIDE RECORDS SUMMARY | 2021-12-05 15:32 | XMS_ITS | Encounter Summary ---
:1945 Author Organization [facility] Address [address] [facility], [address] [place] [address] Care Team Providers Name Role Phone Laurie Elias SENIOR ENLISTED ADVISOR Primary Care Provider Unavailable Encounter Details Date [...] Visit Family Medicine Kevin Miranda MD [address] [place] [address] (Wo rk) documented as of this encounter Visit Diagnoses Not on filedocumented in this encounter Care Teams Director Religious Education Relationship Specialty Start Date End Date aLurie Elias NP PCP - General Family Medicine 03/02/1811/19/19 documented as of this encounter
--- OUTSIDE RECORDS SUMMARY | 2021-12-05 15:32 | XMS_ITS | Encounter Summary ---
:1945 Author Organization [facility] Address [address] [facility], [address] [place] [address] Care Team Providers Name Role Phone Laurie Elias AREA OPERATIONS DIRECTOR Primary Care Provider Unavailable Encounter Details [...] Visit Family Medicine Kevin Miranda MD [address] [place] [address] (Wo rk) documented as of this encounter Visit Diagnoses Not on filedocumented in this encounter Care Teams Manager Recovery Relationship Specialty Start Date End Date Laurie Elias NP PCP - General Family Medicine 03/02/1811/19/19 documented as of this encounter
--- OUTSIDE RECORDS SUMMARY | 2021-12-05 15:32 | XMS_ITS | Encounter Summary ---
:1945 Author Organization [facility] Address [address] [facility], [address] [place] [address] Care Team Providers Name Role Phone Laurie Elias DATA POWER CONSULTANT Primary Care Provider Unavailable Encounter Details [...] Visit Family Medicine Kevin Miranda MD [address] [place] [address] (Wo rk) documented as of this encounter Visit Diagnoses Not on filedocumented in this encounter Care Teams Mica Plate Layer Relationship Specialty Start Date End Date Laurie Elias NP PCP - General Family Medicine 03/02/1811/19/19 documented as of this encounter
--- OUTSIDE RECORDS SUMMARY | 2021-12-05 15:32 | XMS_ITS | Encounter Summary ---
:1945 Author Organization [facility] Address [address] [facility], [address] [place] [address] Care Team Providers Name Role Phone Laurie Elias SET UP MECHANIC HEADING MACHINES Primary Care Provider Unavailable Encounter Details Date Type Department Care Team Description 12/22/2018 Scan Document - View Trini Gómez in Chart Practice SET UP MECHANIC HEADING MACHINES [facility] [place] [address] Social History Tobacco Use Types Packs/Day Years [...] Visit Family Medicine Kevin Miranda MD [address] [place] [address] (Wo rk) documented as of this encounter Visit Diagnoses Not on filedocumented in this encounter Care Teams Beater And Pulper Feeder Relationship Specialty Start Date End Date Laurie Elias NP PCP - General Family Medicine 03/02/1811/19/19 documented as of this encounter
--- OUTSIDE RECORDS SUMMARY | 2021-12-05 15:32 | XMS_ITS | Encounter Summary ---
:1945 Author Organization [facility] Address [address] [facility], [address] [place] [address] Care Team Providers Name Role Phone Laurie Elias NP Primary Care Provider Unavailable Encounter Details Date Type Department Care Team Description 04/10/2019 Telephone [facility] Kevin Crowe MD [facility] [address] [place], [place] [address] [place] [address] [phone] (Wo rk) Social History Tobacco Use Types [...] Visit Family Medicine Kevin Miranda MD [address] [place], [place] [address] (Wo rk) documented as of this encounter Visit Diagnoses Not on filedocumented in this encounter Care Teams Sugarcane Research Technician Relationship Specialty Start Date End Date Laurie Elias NP PCP - General Family Medicine 03/02/1811/19/19 documented as of this encounter
--- OUTSIDE RECORDS SUMMARY | 2021-12-05 15:32 | XMS_ITS | Encounter Summary ---
:1945 Author Organization [facility] Address [address] [facility], [address] [place] [address] Care Team Providers Name Role Phone Laurie Elias NP Primary Care Provider Unavailable Encounter Details Date Type Department Care Team Description 09/27/2019 Refill [facility] Pr Yessy Gee, [address] [place] [employer]IPPING AND [place] [address] [place] [address] [place], [place] [address] (Wo rk) Social History Tobacco [...] Visit Family Medicine Kevin Miranda MD [address] [place], [place] [address] (Wo rk) documented as of this encounter Visit Diagnoses Not on filedocumented in this encounter Care Teams Bi Developer Relationship Specialty Start Date End Date Laurie Elias NP PCP - General Family Medicine 03/02/1811/19/19 documented as of this encounter
--- OUTSIDE RECORDS SUMMARY | 2021-12-05 15:32 | XMS_ITS | Encounter Summary ---
:1945 Author Organization [facility] Address [address] [facility], [address] [place] [address] Care Team Providers Name Role Phone Laurie Elias DEBUG TECHNICIAN Primary Care Provider Unavailable Encounter Details Date Type Department Care Team Description 05/02/2019 Scan Document - View Kevin Trimble, in Chart Practice [address] [place] [address] [place], [place] [phone] [address] Social History Tobacco Use Types Packs/Day Years [...] Visit Family Medicine Kevin Miranda MD [address] [place] [address] (Wo rk) documented as of this encounter Visit Diagnoses Not on filedocumented in this encounter Care Teams Chemical Technician Relationship Specialty Start Date End Date Laurie Elias, ANN PCP - General Family Medicine 03/02/1811/19/19 documented as of this encounter
--- OUTSIDE RECORDS SUMMARY | 2021-12-05 15:32 | XMS_ITS | Encounter Summary ---
:1945 Author Organization [facility] Address [address] [facility], [address] [place] [address] Care Team Providers Name Role Phone Laurie Elias NP Primary Care Provider Unavailable Reason for Visit Reason Comments colon abscess Auth/Cert Specialty Diagnoses / Procedures Referred By Contact Refer red To Contact Diagnoses Pericolonic abscess Procedures n/a Referral ID Status Reason Start Date Expiration Date Visits Requ ested Visits Authorized [id number] 1 1 Encounter Details Date Type Department Care Team Description 04/13/2019 - Hospital Encounter [facility] Castro MD [address] [place] [id number] 04/14/2019 8 Nursing Unit Michele Watkins MD [address] [place] [phone] [place] [phone] Social History Tobacco Use Types Packs/Day Years [...] medications: Gabriel Molly Schmidt Home Medication Instructions TRACIE:[id number] Printed on:04/14/19 6496 Medication Information b complex vitamins capsule Take [...] 06/11/2019 1:45 PM MD JANET Molina [facility] Yoan Owen MD 04/14/19 1:01 PM Associated [...] EST Molly Rios You were admitted to [facility] for acute diverticulitis with an abscess [...] * FOLLOW-UP: Please call our office at [phone] with any questions. You do not need [...] best as you continue in your recovery. [facility] General Surgery team. documented in this [...] Lopez MD - 04/13/2019 1:19 PM EST Real Estate Rep's ED Note Date: 04/13/19 Patient Name: Molly [...] 81, nl intervals, no STEMI [DW] 1636 vice president for instruction has evaluated patient. [DW] 1702 Plan to [...] following orders were created for panel order [place] draw. Procedure Abnormality Status --------- ------ Gold Top[[id number]] In process Gold Top[[id number]] In process Light Blue Top[[id number]] In process Lavender Top[[id number]] Red Top[[id number]] In process Please view results for these [...] 81, nl intervals, no STEMI [DW] 1636 vice president for instruction has evaluated patient. [DW] 1702 Plan to [...] medically cleared to Dc home without services ([facility] [place] order placed for DC). DC paperwork gone [...] nausea and anorexia. Today she came to [facility] ER with a temp of 100.5F [...] Visit Family Medicine Kevin Miranda MD [address] [place] [phone] (Wo rk) documented as of [...] (04/14/2019 6:03 AM EST) Analysis Performed At [facility] logist Time Signature C REACTIVE 28.5 (H) <10.0 mg/L 04/14/2019 [place] PROTEIN 9:10 AM [facility] Organization Address City/State/ZIP Code Phon e Number [facility] [address] [address] LABORATORY (ABNORMAL) CBC with Auto Differential (04/14/2019 6:03 AM EST) [facility] gist Method Time Signature WBC 3.43 (L) 4.00 to 04/14/2019 [place] 11.00 x 8:04 AM [facility] 10*3u/L LABORATORY 10*3/uL nRBC 0 0 - 0 04/14/2019 [place] /100 WBCs 8:04 [facility] LABORATORY RBC 3.95 3.90 to 04/14/2019 [place] 5.20 x 8:04 AM [facility] 10*6/uL LABORATORY 10*6/uL HGB 12.6 12.0 to 04/14/2019 [place] 16.0 g/dL 8:04 AM [facility] g/dL LABORATORY HCT 36.1 36.0% to 04/14/2019 [place] 46.0% % 8:04 AM [facility] LABORATORY MCV 91.4 80.0 to 04/14/2019 [place] 100.0 fL 8:04 [facility] fL LABORATORY MCH 31.9 26.0 - 04/14/2019 [place] 33.0 pg 8:04 [facility] LABORATORY MCHC 34.9 31.0 to 04/14/2019 [place] 37.0 g/dL 8:04 [facility] g/dL LABORATORY PLT 277 150 to 04/14/2019 [place] 350 x 8:04 AM [facility] 10*3u/l LABORATORY 10*3u/L RDW-CV 12.8 11.5 - 04/14/2019 [place] 14.5 % 8:04 AM [facility] LABORATORY Segmented % 55.6 30.0 - 04/14/2019 [place] 85.0 % 8:04 [facility] LABORATORY ABS Neutrophil 1.91 1.20 - 04/14/2019 [place] 9.30 8:04 [facility] 10*3/uL LABORATORY Lymphocytes % 26.5 15.0 - 04/14/2019 [place] 50.0 % 8:04 [facility] LABORATORY ABS Lymphocyte 0.91 0.60 - 04/14/2019 [place] 5.50 8:04 [facility] 10*3u/L LABORATORY Monocytes % 14.0 (H) 2.0 - 04/14/2019 [place] 12.0 % 8:04 [facility] LABORATORY Abs Monocyte 0.48 0.08 to 04/14/2019 [place] 1.30 x 8:04 [facility] 10*3u/L LABORATORY 10*3u/L Eosinophils % 0.9 0.0 - 5.0 04/14/2019 [place] % 8:04 [facility] LABORATORY ABS Eosinophils 0.03 0.00 to 04/14/2019 [place] 0.68 x 8:04 AM [facility] 10*3u/L LABORATORY 10*3u/L Basophil % 1.5 0.0 - 2.0 04/14/2019 [place] % 8:04 AM [facility] LABORATORY ABS Basophils 0.05 0.00 - 04/14/2019 [place] 0.20 8:04 AM [facility] 10*3/uL LABORATORY IMM GRAN 1.5 (H) 0.0 - 1.0 04/14/2019 [place] % 8:04 AM [facility] LABORATORY ABS IMM GRAN 0.05 0.00 - 04/14/2019 [place] 0.10 8:04 AM [facility] 10*3/uL LABORATORY Specimen Anatomical Collection Method Collection Time Receive d Time (Source) Location / / Volume Laterality Blood Venous blood / 04/14/2019 6:03 AM 020 7:12 Unknown EST AM EST Narrative [facility] LABORATORY - 8:04 AM EST Immature [...] Organization Address City/State/ZIP Code Phon e Number [facility] [address] [address] LABORATORY (ABNORMAL) Basic metabolic panel (04/14/2019 6:03 AM [facility] P athologist Signature Sodium 140 137 - 145 04/14/2019 [place] mmol/L 9:06 AM [facility] LABORATORY Potassium 4.0 3.5 - 5.1 04/14/2019 [place] mmol/L 9:06 AM [facility] LABORATORY CHLORIDE 105 98 - 107 04/14/2019 [place] mmol/L 9:06 AM [facility] LABORATORY CARBON DIOXIDE, 26.0 22.0 - 04/14/2019 [place] TOTAL 30.0 9:06 [facility] mmol/L LABORATORY ANION GAP 9.0 6 - 14 04/14/2019 [place] 9:06 AM [facility] LABORATORY GLUCOSE 91 70 - 99 04/14/2019 [place] mg/dL 9:06 AM [facility] LABORATORY BUN 6 (L) 7 - 17 04/14/2019 [place] mg/dL 9:06 AM [facility] LABORATORY CREATININE 0.6 0.5 - 1.0 04/14/2019 [place] mg/dL 9:06 AM [facility] LABORATORY GFR >60 04/14/2019 [place] 9:06 AM [facility] LABORATORY Comment: eGFR Reference Range: ? > 60 mL/min/1.73 Sq meter In Americans the eGFR should be multiplied by 1.212. CALCIUM 8.9 8.3 - 10.3 mg/dL 04/14/2019 9:06 AM [facility] LABORATORY Specimen Anatomical Collection Method Collection Time Receive d Time (Source) Location / / Volume Laterality Blood Venous blood / 04/14/2019 6:03 AM 020 7:07 Unknown EST AM EST Michele Watkins MD LAB BLOOD ORDERABLES Performing Organization Address City/State/ZIP Code Phon e Number [address] [address] LABORATORY Blood culture (04/13/2019 3:53 PM EST) Patholo gist Method Time Signature Blood Culture No growth 5 04/18/2019 [place] days 4:02 PM [facility] LABORATORY Specimen Anatomical Collection Method / Collection Time Recei nancy Time (Source) Location / Volume Laterality Blood Venous blood / Venipuncture / 04/13/2019 3:53 04/13/19 20 3:58 Unknown Unknown PM EST PM EST Mitra Rocha MD LAB MICROBIOLOGY - GENERAL O RDERABLES Performing Organization Address City/State/ZIP Code Phon e Number [address] [address] LABORATORY Magnesium (04/13/2019 3:44 PM EST) P athologist Signature Magnesium 2.0 1.6 - 2.3 04/13/2019 [place] Blood mg/dL 7:49 PM [facility] LABORATORY Specimen Anatomical Collection Method / Collection Time Recei nancy Time (Source) Location / Volume Laterality Blood Venous blood / Venipuncture / 04/13/2019 3:44 04/13/19 20 3:58 Unknown Unknown PM EST PM EST Michele Watkins MD LAB BLOOD ORDERABLES Performing Organization Address City/[facility]/ZIP Code Phon e Number [address] [address] LABORATORY Phosphorus (04/13/2019 3:44 PM EST) P athologist Signature PHOSPHATE 4.0 2.5 - 4.5 04/13/2019 [place] mg/dL 7:49 PM EST HOSPITAL LABORATORY Specimen Anatomical Collection Method / Collection Time Recei nancy Time (Source) Location / Volume Laterality Blood Venous blood / Venipuncture / 04/13/2019 3:44 04/13/19 20 3:58 Unknown Unknown PM EST PM EST Michele Watkins MD LAB BLOOD ORDERABLES Performing Organization Address [facility]/ZIP Code Phon e Number [address] [address] LABORATORY (ABNORMAL) C-reactive protein (04/13/2019 3:44 PM EST) Analysis Performed At Patho logist Time Signature C REACTIVE 34.1 (H) <10.0 mg/L 04/13/2019 [place] PROTEIN 5:56 PM EST HOSPITAL LABORATORY Comment: [...] Organization Address City/State/ZIP Code Phon e Number [address] [address] LABORATORY Red Top (04/13/2019 3:44 PM EST) Specimen Anatomical Collection Method / Collection Time Recei nancy Time (Source) Location / Volume Laterality Blood Venous blood / Venipuncture / 04/13/2019 3:44 04/13/19 20 3:59 Unknown Unknown PM EST PM EST Mitra Rocha MD LAB BLOOD ORDERABLES Performing Organization Address City/State/ZIP Code Phon e Number [address] [address] LABORATORY Light Blue Top (04/13/2019 3:44 PM EST) Specimen Anatomical Collection Method / Collection Time Recei nancy Time (Source) Location / Volume Laterality Blood Venous blood / Venipuncture / 04/13/2019 3:44 04/13/19 20 3:59 Unknown Unknown PM EST PM EST Mitra Rocha MD LAB BLOOD ORDERABLES Performing Organization Address City/[facility]/ZIP Code Phon e Number [address] [address] LABORATORY Gold Top (04/13/2019 3:44 PM EST) Specimen Anatomical Collection Method / Collection Time Recei nancy Time (Source) Location / Volume Laterality Blood Venous blood / Venipuncture / 04/13/2019 3:44 04/13/19 20 3:58 Unknown Unknown PM EST PM EST Mitra Rocha MD LAB BLOOD ORDERABLES Performing Organization Address City/[facility]/ZIP Code Phon e Number [address] [address] LABORATORY Gold Top (04/13/2019 3:44 PM EST) Specimen Anatomical Collection Method / Collection Time Recei nancy Time (Source) Location / Volume Laterality Blood Venous blood / Venipuncture / 04/13/2019 3:44 04/13/19 20 3:58 Unknown Unknown PM EST PM EST Mitra Rocha MD LAB BLOOD ORDERABLES Performing Organization Address City/[facility]/ZIP Code Phon e Number [address] [address] LABORATORY Blood culture (04/13/2019 3:44 PM EST) [facility] gist Method Time Signature Blood Culture [...] Organization Address City/State/ZIP Code Phon e Number [address] [address] LABORATORY Lipase (04/13/2019 3:44 PM EST) athologist Signature LIPASE 65 23 - 300 04/13/2019 [place] U/L 4:14 PM [facility] LABORATORY Specimen Anatomical Collection Method / Collection Time Recei nancy Time (Source) Location / Volume Laterality Blood Venous blood / Venipuncture / 04/13/2019 3:44 04/13/19 20 3:58 Unknown Unknown PM EST PM EST Mitra Rocha MD LAB BLOOD ORDERABLES Performing Organization Address City/State/ZIP Code Phon e Number [place] [address] LABORATORY Hepatic function panel (04/13/2019 3:44 PM EST) athologist [facility] PROTEIN TOTAL 6.8 6.3 - 8.2 04/13/2019 [place] g/dL 4:14 PM [facility] LABORATORY ALBUMIN 3.7 3.5 - 5.0 04/13/2019 [facility] [place] g/dL 4:14 PM [facility] LABORATORY Bilirubin Total 0.4 0.2 - 1.3 04/13/2019 [facility] mg/dL 4:14 PM [facility] LABORATORY BILIRUBIN DIRECT 0.2 0.0 - 0.4 04/13/2019 [facility] mg/dL 4:14 PM [facility] LABORATORY AST (SGOT) 32 15 - 46 04/13/2019 [facility] [place] U/L 4:14 PM [facility] LABORATORY ALT 41 13 - 69 04/13/2019 [place] U/L 4:14 PM [facility] LABORATORY ALKALINE 97 38 - 126 04/13/2019 [facility] PHOSPHATASE U/L 4:14 PM [facility] LABORATORY Specimen Anatomical Collection Method / Collection Time Recei nancy Time (Source) Location / Volume Laterality Blood Venous blood / Venipuncture / 04/13/2019 3:44 04/13/19 20 3:58 Unknown Unknown PM EST PM EST Mitra Rocha MD LAB BLOOD ORDERABLES Performing Organization Address City/State/ZIP Code Phon e Number [address] [address] LABORATORY (ABNORMAL) Basic metabolic panel w/GFR (04/13/2019 3:44 PM EST) Analysis Performed At Patho logist Time Signature Sodium 134 (L) 137 - 145 04/13/2019 [place] mmol/L 4:14 PM [facility] LABORATORY Potassium 4.3 3.5 - 5.1 04/13/2019 [place] mmol/L 4:14 PM [facility] LABORATORY CHLORIDE 100 98 - 107 04/13/2019 [place] mmol/L 4:14 PM [facility] LABORATORY CARBON DIOXIDE, 24.0 22.0 - 04/13/2019 [place] TOTAL 30.0 4:14 PM [facility] mmol/L LABORATORY ANION GAP 10.0 6 - 14 04/13/2019 [place] 4:14 PM [facility] LABORATORY GLUCOSE 117 (H) 70 - 99 04/13/2019 [place] mg/dL 4:14 PM [facility] LABORATORY BUN 10 7 - 17 04/13/2019 [place] mg/dL 4:14 PM [facility] LABORATORY CREATININE 0.5 0.5 - 1.0 04/13/2019 [place] mg/dL 4:14 PM [facility] LABORATORY GFR >60 04/13/2019 [place] 4:14 PM [facility] LABORATORY Comment: eGFR Reference Range: ? > 60 mL/min/1.73 Sq meter In Americans the eGFR should be multiplied by 1.212. CALCIUM 9.5 8.3 - 10.3 mg/dL 04/13/2019 4:14 PM [facility] LABORATORY Specimen Anatomical Collection Method / Collection Time Recei nancy Time (Source) Location / Volume Laterality Blood Venous blood / Venipuncture / 04/13/2019 3:44 04/13/19 20 3:58 Unknown Unknown PM EST PM EST Mitra Rocha MD LAB BLOOD ORDERABLES Performing Organization Address City/State/ZIP Code Phon e Number [facility] [address] [place] [address] LABORATORY (ABNORMAL) CBC auto differential (04/13/2019 3:43 PM EST) Patholo gist Method Time Signature WBC 5.55 4.00 to 04/13/2019 [place] 11.00 x 4:10 PM [facility] 10*3u/L LABORATORY 10*3/uL nRBC 0 0 - 0 04/13/2019 [place] /100 WBCs 4:10 PM [facility] LABORATORY RBC 4.37 3.90 to 04/13/2019 [place] 5.20 x 4:10 PM [facility] 10*6/uL LABORATORY 10*6/uL HGB 13.9 12.0 to 04/13/2019 [place] 16.0 g/dL 4:10 PM [facility] g/dL LABORATORY HCT 39.5 36.0% to 04/13/2019 [place] 46.0% % 4:10 PM [facility] LABORATORY MCV 90.4 80.0 to 04/13/2019 [place] 100.0 fL 4:10 PM [facility] fL LABORATORY MCH 31.8 26.0 - 04/13/2019 [place] 33.0 pg 4:10 PM [facility] LABORATORY MCHC 35.2 31.0 to 04/13/2019 [place] 37.0 g/dL 4:10 PM [facility] g/dL LABORATORY PLT 283 150 to 04/13/2019 [place] 350 x 4:10 PM [facility] 10*3u/l LABORATORY 10*3u/L RDW-CV 12.8 11.5 - 04/13/2019 [place] 14.5 % 4:10 PM [facility] LABORATORY Segmented % 77.6 30.0 - 04/13/2019 [place] 85.0 % 4:10 PM [facility] LABORATORY ABS Neutrophil 4.31 1.20 - 04/13/2019 [place] 9.30 4:10 PM [facility] 10*3/uL LABORATORY Lymphocytes % 8.5 (L) 15.0 - 04/13/2019 [place] 50.0 % 4:10 PM [facility] LABORATORY ABS Lymphocyte 0.47 (L) 0.60 - 04/13/2019 [place] 5.50 4:10 PM [facility] 10*3u/L LABORATORY Monocytes % 12.6 (H) 2.0 - 04/13/2019 [place] 12.0 % 4:10 PM [facility] LABORATORY Abs Monocyte 0.70 0.08 to 04/13/2019 [place] 1.30 x 4:10 PM [facility] 10*3u/L LABORATORY 10*3u/L Eosinophils % 0.0 0.0 - 5.0 04/13/2019 [place] % 4:10 PM [facility] LABORATORY ABS Eosinophils 0.00 0.00 to 04/13/2019 [place] 0.68 x 4:10 PM [facility] 10*3u/L LABORATORY 10*3u/L Basophil % 0.9 0.0 - 2.0 04/13/2019 [place] % 4:10 PM [facility] LABORATORY ABS Basophils 0.05 0.00 - 04/13/2019 [place] 0.20 4:10 PM [facility] 10*3/uL LABORATORY IMM GRAN 0.4 0.0 - 1.0 04/13/2019 [place] % 4:10 PM [facility] LABORATORY ABS IMM GRAN 0.02 0.00 - 04/13/2019 [place] 0.10 4:10 PM [facility] 10*3/uL LABORATORY Specimen Anatomical Collection Method / Collection Time Recei nancy Time (Source) Location / Volume Laterality Blood Venous blood / Venipuncture / 04/13/2019 3:43 04/13/19 20 3:58 Unknown Unknown PM EST PM EST Mitra Rocha MD LAB BLOOD ORDERABLES Performing Organization Address City/State/ZIP Code Phon e Number [facility] [address] [address] LABORATORY EKG (04/13/2019 3:42 PM EST) Specimen (Source) Anatomical Collection Method Collection Time Re ceived Time Location / / Volume Laterality 04/13/2019 3:42 PM EST Mitra Rocha MD ECG ORDERABLES Performing Organization Address City/State/ZIP Code Phon e Number [facility] [address] [place] [address] documented in this encounter Visit Diagnoses Diagnosis [...] oral, 3 times daily, First dose on 04/14/19 at 0815, For 14 days, Indication: Diverticulitis [...] tablet 500 mg 828 (Given - Provider: Aisah Bland RN) 500 mg, oral, 2 times [...] Transfer Provider - Reason: Unreviewed Transfer Orders)2011 ([facility] Unhold - Provider: Micheal Britt MD)2100 (Not [...] crush metroNIDAZOLE (FLAGYL) IVPB 500 mg (CANCELED) 1807 (New Bag - Provider: Remedios Garner RN)183 [...] 1702 documented in this encounter Care Teams Florist Relationship Specialty Start Date End Date Laurie Elias NP PCP - General Family Medicine 03/02/1811/19/19 documented as of this encounter
--- OUTSIDE RECORDS SUMMARY | 2021-12-05 15:33 | XMS_ITS | Encounter Summary ---
:1945 Author Organization [facility] Address [address] [facility], [address] [place] [address] Care Team Providers Name Role Phone Laurie Elias NP Primary Care Provider Unavailable Encounter Details Date Type Department Care Team Description 03/24/2018 Telephone [facility] [address] [facility], [address] [facility] [address] [place], [place] [id number] [place] [address] [phone] (Wo rk) Social History Tobacco Use Types [...] Family Medicine Kevin Miranda MD [address] [place], [place] [address] (Wo rk) documented as of this encounter Visit Diagnoses Not on filedocumented in this encounter Care Teams Dispatch Manager Relationship Specialty Start Date End Date Laurie Elias NP PCP - General Family Medicine 03/02/1811/19/19 documented as of this encounter
--- OUTSIDE RECORDS SUMMARY | 2021-12-05 15:33 | XMS_ITS | Encounter Summary ---
:1945 Author Organization [facility] Address [address] [facility], [address] [place] [address] Care Team Providers Name Role Phone Jada Laurie ANN Primary Care Provider Unavailable Reason for Visit Reason Onset Date Comments PT HAS A QUESTION FOR YOU 05/15/2018 Encounter Details Date Type Department Care Team Description 05/15/2018 Telephone [facility], N[place]af Jason, PT HAS A QUESTION FOR [facility] MD YOU [address] [address] [phone] (Wo rk) Social History Tobacco Use Types [...] Visit Family Medicine Kevin Miranda MD [address] [place] [address] (Wo rk) documented as of this encounter Visit Diagnoses Not on filedocumented in this encounter Care Teams Gas Cutting Machine Operator Relationship Specialty Start Date End Date Laurie Elias NP PCP - General Family Medicine 03/02/1811/19/19 documented as of this encounter
--- OUTSIDE RECORDS SUMMARY | 2021-12-05 15:33 | XMS_ITS | Encounter Summary ---
:1945 Author Organization [facility] Address [address] [facility], [address] [place] [address] Care Team Providers Name Role Phone Laurie Elias NP Primary Care Provider Unavailable Encounter Details Date Type Department Care Team Description 12/06/2018 Surgery [facility] [place] Astudillo MD COLONOSCOPY [[id number] Gastroenterology/Endosc [address] (CPT??)] [facility] [address] [facility] [place], [place] [address] [place] [address] (Wo rk) [id number] [phone] Surgery Details Date/Time Status Location OR Service Patient Class Case Case Trauma Class Type Case? 12/06/18 Posted [facility] GI [address] [place] [address] 9:30 AM Outpatient Surgery Panel 1 Procedure [...] INSTRUCTIONS: Please call Dr. Astudillo office at [phone] if you develop the following symptoms in [...] cecum, confirmed by appendiceal orifice, cecal strap (nikolski's foot), and ileocecal valve. The scope was withdrawn and the mucosa was carefully examined. The quality of the preparation was good. The views were good. The patient's toleration of the procedure was good. Scope(s)/SN:[id number] Time Started: 09:32 Cecum Time: 09:42 Time Ended: 09:47 Estimated Blood Loss: None. Findings: There was evidence of severe diverticulosis in the descending colon. Otherwise, the colon appeared to be normal. Complications: There were no immediate complications. Impression: Severe diverticulosis found in the descending colon. No sign of active diverticulitis Recommendations: Colonoscopy recommended in 10 years. Procedure Codes: 42018 - colonoscopy G0500 - moderate sedation ICD-9 [...] Visit Family Medicine Kevin Miranda MD [address] [place] [phone] (Wo rk) documented as of [...] cecum, confirmed by appendiceal orifice, cecal strap (nikolski's foot), and ileocecal valve. The scope was withdrawn and the mucosa w as carefully examined. The quality of the preparation was good. The views were good. The patient's toleration of the procedure wa s good. Scope(s)/SN:[id number] Time Star lesly: 09:32 Cecum Time: 09:42 Time Ended: 09:47 Estimated Blood Loss: None. Findings: There was evidence of severe d iverticulosis in the descending colon. Otherwise, the colon a ppeared to be normal. Complications: There were no immediate c omplications. Impression: Severe diverticulosis found in the descending colon. No sign of active diverticulitis Recommendations: Colonoscopy recommended in 10 years. Procedure Codes: 17905 - colonoscopy G05 00 - moderate sedation [...] Pre-op documented in this encounter Care Teams Fishing Boat Mate Relationship Specialty Start Date End Date Laurie Elias NP PCP - General Family Medicine 03/02/1811/19/19 documented as of this encounter
--- OUTSIDE RECORDS SUMMARY | 2021-12-05 15:33 | XMS_ITS | Encounter Summary ---
:1945 Author Organization [facility] Address [address] [facility], [address] [place] [address] Care Team Providers Name Role Phone JadaHeatherLaurie MEMBERSHIP SALES REPRESENTATIVE Primary Care Provider Unavailable Encounter Details Date Type Department Care Team Description 04/26/2018 Rehab [facility] Physical Se lázaro Jason MD [address] [place] [address] Chronic low back pain, Therapy Pricila Curry, PT unspecified back pain [address] [facility], [facility], with [address] [place] [address] unspecified (Primary Dx) [phone] Social History Tobacco Use Types Packs/Day Years Used Date Former Smoker Smokeless Tobacco: Never Used Alcohol Use Standard Drinks/Week Comments Defer 0 (1 standard drink = 0.6 oz pure alcoho l) Sex Assigned at Date Recorded Female 04/12/2019 2:19 PM EST documented as of this encounter Progress Notes Pricila Curry, PT - 04/26/2018 2:30 PM EDT Rehabilitation Services Physical Therapy [address] [facility], [address] [facility] [address] PROGRESS NOTE visit 6 [facility] Molly Rios is a 73 y.o. female.who has been referred to physical therapy by Dr. Jason with dx of R hip pain(decreased ROM, pelvic pain, groin pain, R SI pain, chronic glut medius tendinopathy). Pt reports she is a very active person at baseline. Noticed R LBP in June after swimming (changedher technique and pain improved). Pt seen by PT at [facility] for R hip pain. Started doing side lying hip abd with 5 lb. Developed more pain (? Overdid her ex). + R sided groin pain. CC is weakness B hips. Referred to PT for consult. Will f/u with MD after completion of PT. Seen by ortho at [facility]rays done, advised to strengthen/stretch [...] Visit Family Medicine Kevin Miranda MD [address] [place], [place] [address] (Wo rk) documented as of this encounter Visit Diagnoses Diagnosis Chronic low back pain, unspecified back pain laterality, with sciatica presence unspecified - Primary documented in this encounter Care Teams Chisel Mortiser Operator Relationship Specialty Start Date End Date Laurie Elias NP PCP - General Family Medicine 03/02/1811/19/19 documented as of this encounter
--- OUTSIDE RECORDS SUMMARY | 2021-12-05 15:33 | XMS_ITS | Encounter Summary ---
:1945 Author Organization [facility] Address [address] [facility], [address] [place] [address] Care Team Providers Name Role Phone Laurie Elias IT ARCHITECTURE CONSULTANT Primary Care Provider Unavailable Encounter Details Date Type Department Care Team Description 03/31/2018 Telephone [facility] [place] zurita MD Consultants 330 [facility], 300 [facility] t, [facility] [address] [place], [place] [address] [place] [address] [phone] (Wo rk) Social History Tobacco Use Types [...] Office Visit Family Medicine Kevin Miranda MD [address] [place] [address] (Wo rk) documented as of this encounter Visit Diagnoses Not on filedocumented in this encounter Care Teams Internal Audit Senior Manager Relationship Specialty Start Date End Date Laurie Elias NP PCP - General Family Medicine 03/02/1811/19/19 documented as of this encounter
--- OUTSIDE RECORDS SUMMARY | 2021-12-05 15:33 | XMS_ITS | Encounter Summary ---
:1945 Author Organization Address 330 [facility], [address] [place] [address] Care Team Providers Name Role Phone Laurie Elias NP Primary Care Provider Unavailable Encounter Details Date Type Department Care Team Description 03/09/2018 Orders Only Roosevelt Sherif, Diverticulitis of Gastrointestinal MD [place] large intestine with Consultants 330 [facility] without 300 [facility], bleed ing (Primary Dx) [address] [place], [place] [address] [place] [address] Social History Tobacco Use Types Packs/Day Years [...] Visit Family Medicine Kevin Miranda MD [address] [place] [address] (Wo rk) documented as of this encounter Results (ABNORMAL) CBC (03/09/2018 4:47 PM EST) P athologist Signature WBC 11.27 (H) 4.50 to 03/09/2018 [facility] 11.00 x 5:16 PM EST HOSPITAL 10*3u/L LABORATORY 10*3/uL nRBC 0 0 - 0 /100 03/09/2018 [facility] WBCs 5:16 PM [facility] LABORATORY RBC 4.35 3.90 to 03/09/2018 [facility] 5.03 x 5:16 PM [facility] 10*6/uL LABORATORY 10*6/uL HGB 13.6 12.0 to 03/09/2018 [facility] 16.0 g/dL 5:16 PM [facility] g/dL LABORATORY HCT 40.3 36.0% to 03/09/2018 [facility] 46.0% % 5:16 PM [facility] LABOR[facility]ORY MCV 92.6 80.0 to 03/09/2018 [facility] 100.0 fL 5:16 PM [facility] fL LABORATORY MCH 31.3 26.0 - 03/09/2018 [facility] 33.0 pg 5:16 [facility] LABORATORY MCHC 33.7 31.0 to 03/09/2018 [facility] 37.0 g/dL 5:16 PM [facility] g/dL LABORATORY PLT 474 (H) 150 to 300 03/09/2018 [facility] x 10*3u/L 5:16 [facility] 10*3u/L LABORATORY RDW-CV 13.2 11.5 - 03/09/2018 [facility] 14.5 % 5:16 [facility] LABOR[facility] Specimen Anatomical Collection Method / Collection Time Recei nancy Time (Source) Location / Volume Laterality Blood Venous blood / Venipuncture / 03/09/2018 4:47 03/09/19 19 4:47 Unknown Unknown PM [facility] EST [place] Gorman MD LAB BLOOD ORDERABLES Performing Organization Address City/State/ZIP Code Phon e Number [facility] [address] [place] [address] LABORATORY documented in this encounter Visit Diagnoses Diagnosis Diverticulitis of large intestine with a bscess without bleeding - Primary documented in this encounter Care Teams Ambulatory Analyst Relationship Specialty Start Date End Date Laurie Elias NP PCP - General Family Medicine 03/02/1811/19/19 documented as of this encounter
--- OUTSIDE RECORDS SUMMARY | 2021-12-05 15:33 | XMS_ITS | Encounter Summary ---
:1945 Author Organization [facility] Address [address] [facility], [address] [place] [address] Care Team Providers Name Role Phone Kevin Miranda MD Primary Care Provider Encounter Details Date Type Department Care Team Description 12/06/2018 Procedure [facility]/End oscopy [address] [place] [address] [phone] Social History Tobacco Use Types [...] Visit Family Medicine Kevin Miranda MD [address] [place] [address] (Wo rk) documented as of this encounter Visit Diagnoses Not on filedocumented in this encounter Care Teams Veneer Stock Grader Relationship Specialty Start Date End Date Kevin Miranda MD PCP - General Family Medicine 11/20/[address] [place] [address] documented as of this encounter
--- OUTSIDE RECORDS SUMMARY | 2021-12-05 15:33 | XMS_ITS | Encounter Summary ---
:1945 Author Organization [facility] Address [address] [facility], [address] [place] [address] Care Team Providers Name Role Phone Laurie Elias LADLE FILLER Primary Care Provider Unavailable Encounter Details Date [...] Visit Family Medicine Kevin Miranda MD [address] [place] [address] (Wo rk) documented as of this encounter Visit Diagnoses Not on filedocumented in this encounter Care Teams Belly Dancer Relationship Specialty Start Date End Date Laurie Elias NP PCP - General Family Medicine 03/02/1811/19/19 documented as of this encounter
--- OUTSIDE RECORDS SUMMARY | 2021-12-05 15:33 | XMS_ITS | Encounter Summary ---
:1945 Author Organization [facility] Address [address] [facility], [address] [place] [address] Care Team Providers Name Role Phone Laurie Elias NP Primary Care Provider Unavailable Encounter Details Date Type Department Care Team Description 03/28/2018 Telephone [facility] Laurie Brown NP [address] [place], [place] [phone] Social History Tobacco Use Types Packs/Day Years [...] before her visit on 03/30. Called[facility] to [facility] and informed that Dr. Gorman will [...] Kevin Miranda MD [facility]0 [place], [place] [address] (Wo rk) documented as of this encounter Visit Diagnoses Not on filedocumented in this encounter Care Teams Technical Asst Relationship Specialty Start Date End Date Laurie Elias NP PCP - General Family Medicine 03/02/1811/19/19 documented as of this encounter
--- OUTSIDE RECORDS SUMMARY | 2021-12-05 15:33 | XMS_ITS | Encounter Summary ---
:1945 Author Organization [facility] Address [address] [facility], [address] [place] [address] Care Team Providers Name Role Phone Laurie Elias CHIEF HUMAN RESOURCES OFFICER Primary Care Provider Unavailable Encounter Details [...] Visit Family Medicine Kevin Miranda MD [address] [place] [address] (Wo rk) documented as of this encounter Visit Diagnoses Not on filedocumented in this encounter Care Teams Matchbook Maker Relationship Specialty Start Date End Date Laurie Elias NP PCP - General Family Medicine 03/02/1811/19/19 documented as of this encounter
--- OUTSIDE RECORDS SUMMARY | 2021-12-05 15:33 | XMS_ITS | Encounter Summary ---
:1945 Author Organization [facility] Address 330 [facility], [address] [place] [address] Care Team Providers Name Role Phone Laurie Elias NP Primary Care Provider Unavailable Encounter Details Date Type Department Care Team Description 03/30/2018 Office Visit Quincy Sherif, Diverticulitis of Gastrointestinal MD [place] large intestine Consultants 330 [facility] without perforation or 300 [facility], absce ss without [address] bleeding (Primary Dx) [place] [address] [place], [place] [phone] Social History Tobacco Use Types Packs/Day Years [...] were not included. 04/02/18 [place] Gorman M.D. music researcher, [facility] Chief, Gastroenterology [facility] [address] [place] [address] FAX [phone] Email: [email or web address] 04/02/18 Re: [id number] Molly Rios Referring physician: Laurie Elias NP [address] [facility] [address] Molly Rios is a 73 y.o. female [...] Visit Family Medicine Kevin Miranda MD [address] [place], [place] [address] (Wo rk) documented as of this encounter Visit Diagnoses Diagnosis Diverticulitis of large intestine withou t perforation or abscess without bleeding - Primary documented in this encounter Care Teams Fingerprint Technician Relationship Specialty Start Date End Date Laurie Elias NP PCP - General Family Medicine 03/02/1811/19/19 documented as of this encounter
--- OUTSIDE RECORDS SUMMARY | 2021-12-05 15:33 | XMS_ITS | Encounter Summary ---
:1945 Author Organization [facility] Address [address] [facility], [address] [place] [address] Care Team Providers Name Role Phone Laurie Elias INTERMEDIATE ACCOUNTANT Primary Care Provider Unavailable Encounter Details Date Type Department Care Team Description 04/06/2018 Telephone [facility] [place] zurita MD Consultants 330 [facility], 300 [facility] t, [facility] [address] [place], [place] [phone] [place] [address] [phone] (Wo rk) Social History Tobacco Use Types [...] Visit Family Medicine Kevin Miranda MD [address] [place] [address] (Wo rk) documented as of this encounter Visit Diagnoses Not on filedocumented in this encounter Care Teams Back Hoe Machine Operator Relationship Specialty Start Date End Date Laurie Elias, ANN PCP - General Family Medicine 03/02/1811/19/19 documented as of this encounter
--- OUTSIDE RECORDS SUMMARY | 2021-12-05 15:33 | XMS_ITS | Encounter Summary ---
:1945 Author Organization [facility] Address [address] [facility], [address] [place] [address] Care Team Providers Name Role Phone Kevin Miranda MD Primary Care Provider Reason for Visit Reason Comments Med Refill Encounter Details Date Type Department Care Team Description 09/05/2018 Refill [facility] Pr Laurie Brown, FIRE EQUIPMENT OPERATOR [address] [place] [address] Social History Tobacco Use Types Packs/Day Years [...] Visit Family Medicine Kevin Miranda MD [address] [place] [address] (Wo rk) documented as of this encounter Visit Diagnoses Not on filedocumented in this encounter Care Teams Guest Services Associate Relationship Specialty Start Date End Date Kevin Miranda MD PCP - General Family Medicine 11/20/[address] [place] [address] documented as of this encounter
--- OUTSIDE RECORDS SUMMARY | 2021-12-05 15:33 | XMS_ITS | Encounter Summary ---
:1945 Author Organization [facility] Address 330 [facility], [address] [place] [address] Care Team Providers Name Role Phone Laurie Elias MARKETING PROGRAM MANAGER Primary Care Provider Unavailable Encounter Details Date Type Department Care Team Description 04/06/2018 Scan Document - View Trini Gómez in Chart Practice MARKETING PROGRAM MANAGER [facility] [place] [address] Social History Tobacco Use Types Packs/Day Years [...] Visit Family Medicine Kevin Miranda MD [address] [place] [address] (Wo rk) documented as of this encounter Visit Diagnoses Not on filedocumented in this encounter Care Teams Gasoline Locomotive Crane Operator Relationship Specialty Start Date End Date Laurie Elias NP PCP - General Family Medicine 03/02/1811/19/19 documented as of this encounter
--- OUTSIDE RECORDS SUMMARY | 2021-12-05 15:33 | XMS_ITS | Encounter Summary ---
:1945 Author Organization [facility] Address [address] [facility], [address] [place] [address] Care Team Providers Name Role Phone JadaHeatherLaurie RENOVATION PLANT SUPERVISOR Primary Care Provider Unavailable Encounter Details Date Type Department Care Team Description 04/05/2018 Rehab [facility] Physical Se lázaro Jason MD [address] [place] [address] Chronic low back pain, Therapy Pricila Curry, PT unspecified back pain 725 [place] [facility], [facility], with [address] [place] [address] unspecified (Primary Dx) [phone] Social History Tobacco Use Types Packs/Day Years Used Date Former Smoker Smokeless Tobacco: Never Used Alcohol Use Standard Drinks/Week Comments Defer 0 (1 standard drink = 0.6 oz pure alcoho l) Sex Assigned at Date Recorded Female 04/12/2019 2:19 PM EST documented as of this encounter Progress Notes Pricila Curry, PT - 04/05/2018 1:30 PM EST Rehabilitation Services Physical Therapy 7[address] [place] [facility], [address] [facility] [address] PROGRESS NOTE visit 5 ALBERT Rios [...] pain improved). Pt seen by PT at [facility] for R hip pain. Started doing side lying hip abd with 5 lb. Developed more pain (? Overdid her ex). + R sided groin pain. CC is weakness B hips. Referred to PT for consult. Will f/u with MD after completion of PT. Seen by ortho at [facility]-x-rays done, advised to strengthen/stretch R LE. ?? [...] Kevin Miranda MD [facility] [place], [place] [address] (Wo rk) documented as of this encounter Visit Diagnoses Diagnosis Chronic low back pain, unspecified back pain laterality, with sciatica presence unspecified - Primary documented in this encounter Care Teams Woodwind Reeds Cutter Relationship Specialty Start Date End Date Laurie Elias NP PCP - General Family Medicine 03/02/1811/19/19 documented as of this encounter
--- OUTSIDE RECORDS SUMMARY | 2021-12-05 15:33 | XMS_ITS | Encounter Summary ---
:1945 Author Organization [facility] Address 330 [facility], [address] [place] [address] Care Team Providers Name Role Phone JadaHeatherLaurie SCHOOL DIRECTOR Primary Care Provider Unavailable Encounter Details Date Type Department Care Team Description 03/24/2018 Rehab [facility] Physical Se lázaro Jason MD [address] [place] [address] Chronic low back pain, Therapy Pricila Curry, PT unspecified back pain 725 [facility], [facility], with [address] [place] [address] unspecified (Primary Dx) [phone] Social History Tobacco Use Types Packs/Day Years Used Date Former Smoker Smokeless Tobacco: Never Used Alcohol Use Standard Drinks/Week Comments Defer 0 (1 standard drink = 0.6 oz pure alcoho l) Sex Assigned at Date Recorded Female 04/12/2019 2:19 PM EST documented as of this encounter Progress Notes Pricila Curry, PT - 03/24/2018 12:00 PM EST Rehabilitation Services Physical Therapy 725 [facility], [address] [facility] [address] PROGRESS NOTE visit 3 ALBERT [...] pain improved). Pt seen by PT at [facility] for R hip pain. Started doing side lying hip abd with 5 lb. Developed more pain (? Overdid her ex). + R sided groin pain. CC is weakness B hips. Referred to PT for consult. Will f/u with MD after completion of PT. Seen by ortho at [facility]-x-rays done, advised to strengthen/stretch R LE. ?? [...] Visit Family Medicine Kevin Miranda MD [address] [place], [place] [address] (Wo rk) documented as of this encounter Visit Diagnoses Diagnosis Chronic low back pain, unspecified back pain laterality, with sciatica presence unspecified - Primary documented in this encounter Care Teams Road Mixer Operator Relationship Specialty Start Date End Date Laurie Elias NP PCP - General Family Medicine 03/02/1811/19/19 documented as of this encounter
--- OUTSIDE RECORDS SUMMARY | 2021-12-05 15:33 | XMS_ITS | Encounter Summary ---
:1945 Author Organization [facility] Address 330 [facility], [address] [place] [address] Care Team Providers Name Role Phone Laurie Elias TECHNOLOGIES DIVISION CHAIR Primary Care Provider Unavailable Encounter Details Date Type Department Care Team Description 04/07/2018 Telephone [facility] [place] zurita MD Consultants 330 [facility], 300 [facility] t, [facility] [address] [place], [place] [address] [place] [address] [phone] (Wo rk) Social History Tobacco Use Types Packs/Day Years Used Date Former Smoker Smokeless Tobacco: Never Used Alcohol Use Standard Drinks/Week Comments Defer 0 (1 standard drink = 0.6 oz pure alcoho l) Sex Assigned at Date Recorded Female 04/12/2019 2:19 PM EST documented as of this encounter Miscellaneous Notes Telephone Encounter - Laura Mak MA - 04/07/2018 9:11 AM EST She finished her medication for diverticulitis and is still having night sweats. She would like to speak with you. documented in this encounter Plan of Treatment Upcoming Encounters Date Type Specialty Care Team Description 04/19/2022 Office Visit Family Medicine Kevin Miranda MD [address] [place] [address] (Wo rk) documented as of this encounter Visit Diagnoses Not on filedocumented in this encounter Care Teams Chronograph Operator Relationship Specialty Start Date End Date Laurie Elias NP PCP - General Family Medicine 03/02/1811/19/19 documented as of this encounter
--- OUTSIDE RECORDS SUMMARY | 2021-12-05 15:33 | XMS_ITS | Encounter Summary ---
:1945 Author Organization [facility] Address 330 [facility], [address] [place] [address] Care Team Providers Name Role Phone Laurie Elias NP Primary Care Provider Unavailable Encounter Details Date Type Department Care Team Description 03/09/2018 Office Visit [place] Sherif, Diverticulitis large Gastrointestinal MD [place] intestine w/o Consultants 330 [facility] perforation or abscess 300 [facility], w/o arturo zamudio (Primary [address] Dx) [place], [place] [phone] [place] [address] Social History Tobacco Use Types Packs/Day Years [...] were not included. 03/12/18 [place] Gorman M.D. music minister, [facility] Chief, Gastroenterology [facility] [address] [place] [address] FAX [phone] Email: [email or web address] 03/12/18 Re: [id number] Molly Rios Referring physician: Laurie Elias, ANN 1020 [facility] [address] Molly Rios is a 73 y.o. female [...] Medicine Kevin Miranda MD [facility] [place], [place] [address] (Wo rk) documented as of this encounter Visit Diagnoses Diagnosis Diverticulitis large intestine w/o perfo ration or abscess w/o bleeding - Primary documented in this encounter Care Teams Licensed Occupational Therapist Relationship Specialty Start Date End Date Laurie Elias NP PCP - General Family Medicine 03/02/1811/19/19 documented as of this encounter
--- OUTSIDE RECORDS SUMMARY | 2021-12-05 15:33 | XMS_ITS | Encounter Summary ---
:1945 Author Organization [facility] Address [address] [facility], [address] [place] [address] Care Team Providers Name Role Phone Laurie Elias NP Primary Care Provider Unavailable Reason for Visit Reason Comments Groin Pain Encounter Details Date Type Department Care Team Description 11/30/2018 Office Visit Paula Funk, Primary osteoarthritis of right hip (Primary Dx); Practice MD Acute left ankle pain [address] [place] [address] Social History Tobacco Use Types Packs/Day Years [...] Office Visit Family Medicine Kevin Miranda MD [facility] [place], [place] [address] (Wo rk) documented as of this encounter Visit Diagnoses Diagnosis Primary osteoarthritis of right hip - Pr imary Acute left ankle pain documented in this encounter Care Teams Provider Network Manager Relationship Specialty Start Date End Date Laurie Elias NP PCP - General Family Medicine 03/02/1811/19/19 documented as of this encounter
--- OUTSIDE RECORDS SUMMARY | 2021-12-05 15:33 | XMS_ITS | Encounter Summary ---
:1945 Author Organization [facility] Address [address] [facility], [address] [place] [address] Care Team Providers Name Role Phone JadaHeatherLaurie MULTIMEDIA PROGRAMMER Primary Care Provider Unavailable Encounter Details Date Type Department Care Team Description 05/02/2018 Rehab [facility] Physical Se lázaro Jason MD [address] [place] [address] Chronic low back pain, Therapy Pricila Curry, PT unspecified back pain 725 [facility], [facility], with [address] [place] [address] unspecified (Primary Dx) [phone] Social History Tobacco Use Types Packs/Day Years Used Date Former Smoker Smokeless Tobacco: Never Used Alcohol Use Standard Drinks/Week Comments Defer 0 (1 standard drink = 0.6 oz pure alcoho l) Sex Assigned at Date Recorded Female 04/12/2019 2:19 PM EST documented as of this encounter Progress Notes Pricila Curry, PT - 05/02/2018 12:00 PM EDT Rehabilitation Services Physical Therapy 7[address] [facility], [address] [facility] [address] PROGRESS NOTE visit 7 [facility] Molly Rios is a 73 y.o. [...] Visit Family Medicine Kevin Miranda MD [address] [place], [place] [address] (Wo rk) documented as of this encounter Visit Diagnoses Diagnosis Chronic low back pain, unspecified back pain laterality, with sciatica presence unspecified - Primary documented in this encounter Care Teams Strip Cutting Machine Operator Relationship Specialty Start Date End Date Laurie Elias NP PCP - General Family Medicine 03/02/1811/19/19 documented as of this encounter
--- OUTSIDE RECORDS SUMMARY | 2021-12-05 15:33 | XMS_ITS | Encounter Summary ---
:1945 Author Organization [facility] Address [address] [facility], [address] [place] [address] Care Team Providers Name Role Phone Laurie Elias NP Primary Care Provider Unavailable Encounter Details Date Type Department Care Team Description 03/29/2018 Telephone [facility] Laurie Brown NP [address] [place] [address] Social History Tobacco Use Types Packs/Day Years Used Date Former Smoker Smokeless Tobacco: Never Used Alcohol Use Standard Drinks/Week Comments Defer 0 (1 standard drink = 0.6 oz pure alcoho l) Sex Assigned at Date Recorded Female 04/12/2019 2:19 PM EST documented as of this encounter Miscellaneous Notes Telephone Encounter - Laurie Elias NP - 03/29/2018 12:44 PM EST TC to [facility]. Advised Dr. Gorman will return tomorrow. [...] Description 04/19/2022 Office Visit Family Medicine Kevin Miradna MD [address] [place], [place] [address] (Wo rk) documented as of this encounter Visit Diagnoses Not on filedocumented in this encounter Care Teams Open Source Developer Relationship Specialty Start Date End Date Laurie Elias NP PCP - General Family Medicine 03/02/1811/19/19 documented as of this encounter
--- OUTSIDE RECORDS SUMMARY | 2021-12-05 15:33 | XMS_ITS | Encounter Summary ---
:1945 Author Organization [facility] Address 330 [facility], [address] [place] [address] Care Team Providers Name Role Phone Laurie Elias SEED YEAST OPERATOR Primary Care Provider Unavailable Encounter Details Date Type Department Care Team Description 04/10/2018 Scan Document - View Trini Gómez in Chart Practice SEED YEAST OPERATOR [facility] [place] [address] Social History Tobacco Use Types Packs/Day Years [...] Visit Family Medicine Kevin Miranda MD [address] [place] [address] (Wo rk) documented as of this encounter Visit Diagnoses Not on filedocumented in this encounter Care Teams Video Game Creator Relationship Specialty Start Date End Date Laurie Elias NP PCP - General Family Medicine 03/02/1811/19/19 documented as of this encounter
--- OUTSIDE RECORDS SUMMARY | 2021-12-05 15:33 | XMS_ITS | Encounter Summary ---
:1945 Author Organization [facility] Address 330 [facility], [address] [place] [address] Care Team Providers Name Role Phone Laurie Elias SUPERVISOR TRUST ACCOUNTS Primary Care Provider Unavailable Encounter Details Date [...] Visit Family Medicine Kevin Miranda MD [address] [place] [address] (Wo rk) documented as of this encounter Visit Diagnoses Not on filedocumented in this encounter Care Teams Manager Of Construction Relationship Specialty Start Date End Date Laurie Elias NP PCP - General Family Medicine 03/02/1811/19/19 documented as of this encounter
--- OUTSIDE RECORDS SUMMARY | 2021-12-05 15:33 | XMS_ITS | Encounter Summary ---
:1945 Author Organization [facility] Address 330 [facility], [address] [place] [address] Care Team Providers Name Role Phone Laurie Elias CARTON PACKAGING MACHINE OPERATOR Primary Care Provider Unavailable Encounter Details [...] Visit Family Medicine Kevin Miranda MD [address] [place] [address] (Wo rk) documented as of this encounter Visit Diagnoses Not on filedocumented in this encounter Care Teams Preliminary School Psychologist Relationship Specialty Start Date End Date Laurie Elias NP PCP - General Family Medicine 03/02/1811/19/19 documented as of this encounter
--- OUTSIDE RECORDS SUMMARY | 2021-12-05 15:33 | XMS_ITS | Encounter Summary ---
:1945 Author Organization [facility] Address 330 [facility], [address] [place] [address] Care Team Providers Name Role Phone Laurie Elias NP Primary Care Provider Unavailable Encounter Details Date Type Department Care Team Description 12/06/2018 Anesthesia Event [place] Johny Jaramillo MD Gastroenterology/Endoscop [address] [place] [address] [place] [address] [phone] Anesthesia Record Procedure Summary Procedure Name [...] Last Liquid: 12/06/2018 Time of Last Liquid: 06 Date of Last Solid: 12/04/2018 Time of [...] Kevin Miranda MD [facility] [place], [place] [address] (Wo rk) documented as [...] Pre-op documented in this encounter Care Teams Solar Development Engineer Relationship Specialty Start Date End Date Laurie Elias NP PCP - General Family Medicine 03/02/1811/19/19 documented as of this encounter
--- OUTSIDE RECORDS SUMMARY | 2021-12-05 15:33 | XMS_ITS | Encounter Summary ---
:1945 Author Organization [facility] Address 330 [facility], [address] [place] [address] Care Team Providers Name Role Phone Laurie Elias ANN Primary Care Provider Unavailable Encounter Details Date Type Department Care Team Description 03/17/2018 Telephone [facility] zurita MD Consultants 330 [facility], [address] [facility] t, [facility] [address] [place], [place] [address] [place] [address] [phone] (Wo rk) Social History Tobacco Use Types [...] Visit Family Medicine Kevin Miranda MD [address] [facility] [place] [id number] (Wo rk) documented as of this encounter Visit Diagnoses Not on filedocumented in this encounter Care Teams Bundle Cutter Relationship Specialty Start Date End Date Laurie Elias NP PCP - General Family Medicine 03/02/1811/19/19 documented as of this encounter
--- OUTSIDE RECORDS SUMMARY | 2021-12-05 15:33 | XMS_ITS | Encounter Summary ---
:1945 Author Organization [facility] Address 330 [facility], [address] [place] [address] Care Team Providers Name Role Phone Laurie Elias NP Primary Care Provider Unavailable Encounter Details Date Type Department Care Team Description 03/15/2018 Telephone [facility] Dallas zurita MD Consultants 330 [facility], [address] [facility] [address], [facility] [address] [place], [place] [address] [place] [address] [phone] (Wo rk) Social History Tobacco Use Types [...] Visit Family Medicine Kevin Miranda MD [address] [facility] [place] [address] (Wo rk) documented as of this encounter Visit Diagnoses Not on filedocumented in this encounter Care Teams Landscape Architect And Planner Relationship Specialty Start Date End Date Laurie Elias NP PCP - General Family Medicine 03/02/1811/19/19 documented as of this encounter
--- OUTSIDE RECORDS SUMMARY | 2021-12-05 15:33 | XMS_ITS | Encounter Summary ---
:1945 Author Organization [facility] Address 330 [facility], [address] [place] [address] Care Team Providers Name Role Phone Laurie Elias MANUFACTURING CONTROLS ENGINEER Primary Care Provider Unavailable Encounter Details Date Type Department Care Team Description 03/22/2018 Orders Only MAP [facility] Daniel Jones, [address], [facility] [address] [place] [address] [address] [facility]. [address] [place], [place] [address] Social History Tobacco Use [...] Office Visit Family Medicine Kevin Miranda MD [facility] [place], [place] [address] (Wo rk) documented as of this encounter Visit Diagnoses Not on filedocumented in this encounter Care Teams Leather Craftsman Relationship Specialty Start Date End Date Laurie Elias NP PCP - General Family Medicine 03/02/1811/19/19 documented as of this encounter
--- OUTSIDE RECORDS SUMMARY | 2021-12-05 15:33 | XMS_ITS | Encounter Summary ---
:1945 Author Organization [facility] Address 330 [facility], [address] [place] [address] Care Team Providers Name Role Phone Laurie Elias NP Primary Care Provider Unavailable Encounter Details Date Type Department Care Team Description 11/23/2018 Office Visit [place] [facility], Diverticulosis Gastrointestinal MD [place] (Primary Dx) Consultants [address] [place], [place] [address] [place] [address] Social History Tobacco Use Types Packs/Day Years [...] were not included. 11/25/18 [place] Gorman M.D. spray drier operator, [facility] Chief, Gastroenterology [facility] [address] [place] [address] FAX [phone] Email: [email or web address] 11/25/18 Re: [id number] Molly Rios Referring physician: Laurie Elias NP [address] [facility] [address] Molly Rios is a 73 y.o. female [...] Visit Family Medicine Kevin Miranda MD [address] [place] [address] (Wo rk) documented as of this encounter Visit Diagnoses Diagnosis Diverticulosis - Primary Diverticulosis of colon (without mention of hemorrhage) documented in this encounter Care Teams Gunstock Spray Unit Feeder Relationship Specialty Start Date End Date Laurie Elias NP PCP - General Family Medicine 03/02/1811/19/19 documented as of this encounter
--- OUTSIDE RECORDS SUMMARY | 2021-12-05 15:33 | XMS_ITS | Encounter Summary ---
:1945 Author Organization [facility] Address 330 [facility], [address] [place] [address] Care Team Providers Name Role Phone Laurie Elias PLAIN GOODS HEMMER Primary Care Provider Unavailable Encounter Details Date [...] Visit Family Medicine Kevin Miranda MD [address] [place] [address] (Wo rk) documented as of this encounter Visit Diagnoses Not on filedocumented in this encounter Care Teams Supervisor Cigar Processing Relationship Specialty Start Date End Date Laurie Elias NP PCP - General Family Medicine 03/02/1811/19/19 documented as of this encounter
--- OUTSIDE RECORDS SUMMARY | 2021-12-05 15:33 | XMS_ITS | Encounter Summary ---
:1945 Author Organization [facility] Address 330 [facility], [address] [place] [address] Care Team Providers Name Role Phone JadaHeatherLaurie MUSIC TEACHER Primary Care Provider Unavailable Encounter Details Date Type Department Care Team Description 06/06/2018 Rehab [facility] Physical Se lázaro Jason MD [address] [place] [address] Chronic low back pain, Therapy Pricila Curry, PT unspecified back pain [address] [facility], [facility], with [address] [place] [address] unspecified (Primary Dx) [phone] Social History Tobacco Use Types Packs/Day Years Used Date Former Smoker Smokeless Tobacco: Never Used Alcohol Use Standard Drinks/Week Comments Defer 0 (1 standard drink = 0.6 oz pure alcoho l) Sex Assigned at Date Recorded Female 04/12/2019 2:19 PM EST documented as of this encounter Progress Notes Pricila Curry, PT - 06/06/2018 1:30 PM EDT [facility] Physical Therapy [address] [facility], [address] [facility] [address] PROGRESS NOTE visit 10 [place] [...] pain improved). Pt seen by PT at [facility] for R hip pain. Started doing side lying hip abd with 5 lb. Developed more pain (? Overdid her ex). + R sided groin pain. CC is weakness B hips. Referred to PT for consult. Will f/u with MD after completion of PT. Seen by ortho at [facility]x[place] done, advised to strengthen/stretch R LE. ?? [...] Visit Family Medicine Kevin Miranda MD [address] [place] [address] (Wo rk) documented as of this encounter Visit Diagnoses Diagnosis Chronic low back pain, unspecified back pain laterality, with sciatica presence unspecified - Primary documented in this encounter Care Teams Lotus Notes Developer Relationship Specialty Start Date End Date Laurie Elias NP PCP - General Family Medicine 03/02/1811/19/19 documented as of this encounter
--- OUTSIDE RECORDS SUMMARY | 2021-12-05 15:33 | XMS_ITS | Encounter Summary ---
:1945 Author Organization [facility] Address 330 [facility], [address] [place] [address] Care Team Providers Name Role Phone JadaHeatherLaurie EXECUTIVE TEAM LEADER Primary Care Provider Unavailable Encounter Details Date Type Department Care Team Description 03/29/2018 Rehab [facility] Physical Se lázaro Jason MD [address] [place] [address] Chronic low back pain, Therapy Pricila Curry, PT unspecified back pain 7[address] [facility], [facility], with [address] [place] [address] unspecified (Primary Dx) [phone] Social History Tobacco Use Types Packs/Day Years Used Date Former Smoker Smokeless Tobacco: Never Used Alcohol Use Standard Drinks/Week Comments Defer 0 (1 standard drink = 0.6 oz pure alcoho l) Sex Assigned at Date Recorded Female 04/12/2019 2:19 PM EST documented as of this encounter Progress Notes Pricila Curry, PT - 03/29/2018 12:30 PM EST [facility] Services Physical Therapy 7[address] [facility], [address] [facility] [address] PROGRESS NOTE visit 4 ALBERT [...] Visit Family Medicine Kevin Miranda MD [address] [place], [place] [address] (Wo rk) documented as of this encounter Visit Diagnoses Diagnosis Chronic low back pain, unspecified back pain laterality, with sciatica presence unspecified - Primary documented in this encounter Care Teams Painting Trades Worker Relationship Specialty Start Date End Date Laurie Elias NP PCP - General Family Medicine 03/02/1811/19/19 documented as of this encounter
--- OUTSIDE RECORDS SUMMARY | 2021-12-05 15:33 | XMS_ITS | Encounter Summary ---
:1945 Author Organization [facility] Address 330 [facility], [address] [place] [address] Care Team Providers Name Role Phone Laurie Elias CLOTH FRAMER Primary Care Provider Unavailable Encounter Details Date Type Department Care Team Description [facility] NP [facility] [place] [address] Social History Tobacco Use Types Packs/Day Years [...] Visit Family Medicine Kevin Miranda MD [address] [place], [place] [address] (Wo rk) documented as of this encounter Visit Diagnoses Not on filedocumented in this encounter Care Teams Infertility Nurse Relationship Specialty Start Date End Date Laurie Elias NP PCP - General Family Medicine 03/02/1811/19/19 documented as of this encounter
--- OUTSIDE RECORDS SUMMARY | 2021-12-05 15:33 | XMS_ITS | Encounter Summary ---
:1945 Author Organization [facility] Address 330 [facility], [address] [place] [address] Care Team Providers Name Role Phone Laurie Elias NP Primary Care Provider Unavailable Encounter Details Date Type Department Care Team Description 09/06/2018 Telephone [employer] Laurie Brown NP [address] [place] [address] Social History Tobacco Use Types Packs/Day Years [...] Visit Family Medicine Kevin Miranda MD [address] [place], [place] [address] (Wo rk) documented as of this encounter Visit Diagnoses Not on filedocumented in this encounter Care Teams Battery Container Tester Relationship Specialty Start Date End Date Laurie Elias NP PCP - General Family Medicine 03/02/1811/19/19 documented as of this encounter
--- OUTSIDE RECORDS SUMMARY | 2021-12-05 15:33 | XMS_ITS | Encounter Summary ---
:1945 Author Organization [facility] Address 330 [facility], [address] [place] [address] Care Team Providers Name Role Phone Laurie Elias DIESEL LUBE TECH Primary Care Provider Unavailable Encounter Details Date [...] Office Visit Family Medicine Kevin Miranda MD [address] [place] [address] (Wo rk) documented as of this encounter Visit Diagnoses Not on filedocumented in this encounter Care Teams Aluminum Pourer Relationship Specialty Start Date End Date Laurie Elias NP PCP - General Family Medicine 03/02/1811/19/19 documented as of this encounter
--- OUTSIDE RECORDS SUMMARY | 2021-12-05 15:33 | XMS_ITS | Encounter Summary ---
:1945 Author Organization [facility] Address 330 [facility], [address] [place] [address] Care Team Providers Name Role Phone JadaHeatherLaurie BAKERY TECHNICIAN Primary Care Provider Unavailable Encounter Details Date Type Department Care Team Description 05/30/2018 Rehab [facility] Physical Se lázaro Jason MD [address] [place] [address] Chronic low back pain, Therapy Pricila Curry, PT unspecified back pain 7[address] [facility], [facility], with [address] [place] [address] unspecified (Primary Dx) [phone] Social History Tobacco Use Types Packs/Day Years Used Date Former Smoker Smokeless Tobacco: Never Used Alcohol Use Standard Drinks/Week Comments Defer 0 (1 standard drink = 0.6 oz pure alcoho l) Sex Assigned at Date Recorded Female 04/12/2019 2:19 PM EST documented as of this encounter Progress Notes Pricila Curry, PT - 05/30/2018 2:30 PM EDT Rehabilitation Services Physical Therapy [address] [facility], [address] [facility] [address] PROGRESS NOTE visit 9 [facility] Molly Rios is a 73 [...] Miranda MD [facility]0 [place], [place] [address] (Wo rk) documented as of this encounter Visit Diagnoses Diagnosis Chronic low back pain, unspecified back pain laterality, with sciatica presence unspecified - Primary documented in this encounter Care Teams Groundskeeper Relationship Specialty Start Date End Date Laurie Elias NP PCP - General Family Medicine 03/02/1811/19/19 documented as of this encounter
--- OUTSIDE RECORDS SUMMARY | 2021-12-05 15:33 | XMS_ITS | Encounter Summary ---
:1945 Author Organization [facility] Address 330 [facility], [address] [place] [address] Care Team Providers Name Role Phone Kevin Miranda MD Primary Care Provider Encounter Details Date Type Department Care Team Description 04/10/2018 Telephone [facility] Laurie Brown, ANN [address] [place] [address] Social History Tobacco Use Types Packs/Day Years [...] Visit Family Medicine Kevin Miranda MD [address] [place] [address] (Wo rk) documented as of this encounter Visit Diagnoses Not on filedocumented in this encounter Care Teams Degreasing Wheel Operator Relationship Specialty Start Date End Date Kevin Miranda MD PCP - General Family Medicine 11/20/[address] [place] [address] documented as of this encounter
--- OUTSIDE RECORDS SUMMARY | 2021-12-05 15:33 | XMS_ITS | Encounter Summary ---
:1945 Author Organization [facility] Address 330 [facility], [address] [place] [address] Care Team Providers Name Role Phone Laurie Elias BRAKE SHOE REBUILDER Primary Care Provider Unavailable Reason for Visit Reason Comments Annual Exam Encounter Details Date Type Department Care Team Description 06/08/2018 Office Visit Kaushik Elias, Annual phy sical exam (Primary Dx); Practice ANN Sullivan Screening for depression; [address] Diverticulitis; [place] [address] Insomnia, unspecified type; [phone] Acute pain of r ight shoulder; Osteopenia, [...] (q 6 months) at [facility] (Dr. Rosenberg). 3. She sees Dr. Harrison at [facility] [place] for routine eye care 4. Sleep disorder: [...] PT 6. 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 For the past [...] and fiber regimen. F/u with Dr. Gorman ([facility] gastroenterology) for routine f/u and colonoscopy. [...] and fiber regimen. F/u with Dr. Gorman ([facility] gastroenterology) for routine f/u and colonoscopy. documented in this encounter Plan of Treatment Upcoming Encounters Date Type Specialty Care Team Description 04/19/2022 Office Visit Family Medicine Kevin Miranda MD [address] [place] [address] (Wo rk) documented as of [...] encounter Results CBC (06/27/2018 10:04 AM EDT) [facility] Method Time Signature White Blood 7.0 3.8 - 10.8 [facility] Count Thousand/u [place] [facility] Red Blood Count 4.30 3.80 - [facility] ics 5.10 [place] Million/uL [facility] Hemoglobin 13.3 11.7 - [facility] 15.5 g/dL [place] [facility] Hematocrit 40.2 35.0 - [facility] 45.0 % [place] [facility] MCV 93.5 80.0 - [facility] 100.0 fL [place] [facility] MCH 30.9 27.0 - [facility] 33.0 pg [place] [employer]UPt MCHC 33.1 32.0 - [facility] 36.0 g/dL [place] [employer] MRDW 12.6 11.0 - [facility] 15.0 % [place] [employer] Platelet count 321 140 - 400 [facility] Thousand/u [facility] [employer] MPV 10.0 7.5 - 12.5 [facility] fL [place] [employer] Specimen Anatomical Collection Method Collection Time Receive d Time (Source) Location / / Volume Laterality Blood Venous blood / 06/27/2018 10:04 9 Unknown AM EDT 10:04 AM EDT Narrative [facility] - 06/28/2018 4:45 AM EDT FASTING:YES FASTING: YES Laurie Elias NP LAB BLOOD ORDERABLES Performing Organization Address City/State/ZIP Code Phon e Number [employer] [address] [phone] [employer] [address] [place] [address] [address] [phone] Diagnost (ABNORMAL) Lipid Panel with Reflex to Direct LDL (06/27/2018 10:04 AM EDT) [facility] Method Time Signature Cholesterol, 206 (H) <200 [facility] Total mg/dL [place] [employer] HDL Cholesterol 91 >50 mg/dL [employer] [employer] [place] [employer] TRIGS 53 <150 [facility] mg/dL [place] [employer] LDL Cholesterol 101 (H) mg/dL [employer] (calc) [place] [employer] Comment: Reference range: <100 Desirable range <100 [...] CARTER et al. GEOVANNA. 2013;310(19): 206 1-2068 (http://education.-[employer]tec/f [email or web address]/QHO083) HDL 2.3 <5.0 (calc) [facility] [place] [employer] [facility] Non HDL Chol. (LDL+VLDL) 115 <130 mg/dL (calc) [employer] [place] [employer] [facility] Comment: For patients with diabetes plus [...] Organization Address City/State/ZIP Code Phon e Number [employer] [address] [phone] [place] [address] B [employer] [address] [place] [address] [employer] [address] [phone] Diagnost Basic metabolic panel (06/27/2018 10:04 AM EDT) athologist Signature Glucose 89 65 - 99 [employer] mg/dL [place] [employer] Comment: ? Fasting reference interv al Bun 23 7 - 25 mg/dL [employer] [place] [employer] Creatinine, Ser 0.73 0.60 - 0.93 mg/dL [employer] [place] [facility] Comment: For patients >49 years of age, the refer ence limit for Creatinine is approximately 13% high er for people identified as -Sudanese. eGFR NON-AFR. 83 > OR = 60 mL/min/1.73m2 Qu est [facility] [employer] [facility] eGFR 96 > OR = 60 mL/min/1.73m2 Que [facility] [employer] [facility] BUN/Creatinine NOT APPLICABLE 6 - 22 (calc) [facility] Ratio [place] [employer] Sodium 142 135 - 146 mmol/L [facility] [place] [employer] [facility] Potassium 4.9 3.5 - 5.3 mmol/L [facility] [place] [employer] [facility] Chloride 105 98 - 110 mmol/L [facility] [place] [employer] CO2 32 20 - 32 mmol/L [facility] Calcium 9.4 8.6 - 10.4 [...] Organization Address City/State/ZIP Code Phon e Number [employer] [address] [phone] [place] [address], [address] [employer] [address] [place] [address], [facility] [address] [phone] Diagnost documented in this encounter Visit Diagnoses [...] mellitus documented in this encounter Care Teams Plasterer Foreman Relationship Specialty Start Date End Date Laurie Elias NP PCP - General Family Medicine 03/02/1811/19/19 documented as of this encounter
--- OUTSIDE RECORDS SUMMARY | 2021-12-05 15:33 | XMS_ITS | Encounter Summary ---
:1945 Author Organization [facility] Address [address] [facility], [address] [place] [address] Care Team Providers Name Role Phone JadaHeatherLaurie ASSOCIATE JUSTICE Primary Care Provider Unavailable Encounter Details Date Type Department Care Team Description 03/13/2018 Rehab [facility] Physical Se lázaro Jason MD [address] [place] [address] Chronic low back pain, Therapy Pricila Curry, PT unspecified back pain [address] [facility], [facility], [address] [place] [address] unspecified (Primary Dx) [phone] Social History Tobacco Use Types Packs/Day Years Used Date Former Smoker Smokeless Tobacco: Never Used Alcohol Use Standard Drinks/Week Comments Defer 0 (1 standard drink = 0.6 oz pure alcoho l) Sex Assigned at Date Recorded Female 04/12/2019 2:19 PM EST documented as of this encounter Progress Notes Pricila Curry, PT - 03/13/2018 1:30 PM EST Rehabilitation Services Physical Therapy [address] [facility], [address] [facility] [address] PROGRESS NOTE visit 2 ALBERT [...] completion of PT. Seen by ortho at [facility] [...] Visit Family Medicine Kevin Miranda MD [address] [place] [address] (Wo rk) documented as of this encounter Visit Diagnoses Diagnosis Chronic low back pain, unspecified back pain laterality, with sciatica presence unspecified - Primary documented in this encounter Care Teams Office 365 Consultant Relationship Specialty Start Date End Date Laurie Elias NP PCP - General Family Medicine 03/02/1811/19/19 documented as of this encounter
--- OUTSIDE RECORDS SUMMARY | 2021-12-05 15:33 | XMS_ITS | Encounter Summary ---
:1945 Author Organization [facility] Address [address] [facility], [address] [place] [address] Care Team Providers Name Role Phone Laurie Elias SUPERVISOR SOAKERS Primary Care Provider Unavailable Encounter Details Date [...] Visit Family Medicine Kevin Miranda MD [address] [place] [address] (Wo rk) documented as of this encounter Visit Diagnoses Not on filedocumented in this encounter Care Teams Power Lineworker Relationship Specialty Start Date End Date Laurie Elias NP PCP - General Family Medicine 03/02/1811/19/19 documented as of this encounter
--- OUTSIDE RECORDS SUMMARY | 2021-12-05 15:33 | XMS_ITS | Encounter Summary ---
:1945 Author Organization [facility] Address [address] [facility], [address] [place] [address] Care Team Providers Name Role Phone Laurie Elias AUTOMATION CONTROLS EXPERT Primary Care Provider Unavailable Encounter Details Date [...] Office Visit Family Medicine Kevin Miranda MD [address] [place] [address] (Wo rk) documented as of this encounter Visit Diagnoses Not on filedocumented in this encounter Care Teams Grinding Machine Operator Automatic Relationship Specialty Start Date End Date Laurie Elias NP PCP - General Family Medicine 03/02/1811/19/19 documented as of this encounter
--- OUTSIDE RECORDS SUMMARY | 2021-12-05 15:33 | XMS_ITS | Encounter Summary ---
:1945 Author Organization [facility] Address [address] [facility], [address] [place] [address] Care Team Providers Name Role Phone Laurie Elias MINER PLACER Primary Care Provider Unavailable Encounter Details Date Type Department Care Team Description 03/08/2018 Scan Document - View Trini Gómez in Chart Practice MINER PLACER [facility] [place] [address] Social History Tobacco Use Types Packs/Day Years [...] Visit Family Medicine Kevin Miranda MD [address] [place] [address] (Wo rk) documented as of this encounter Visit Diagnoses Not on filedocumented in this encounter Care Teams Skin Piler Relationship Specialty Start Date End Date Laurie Elias NP PCP - General Family Medicine 03/02/1811/19/19 documented as of this encounter
--- OUTSIDE RECORDS SUMMARY | 2021-12-05 15:33 | XMS_ITS | Encounter Summary ---
:1945 Author Organization [facility] Address 330 [facility], [address] [place] [address] Care Team Providers Name Role Phone Laurie Elias DIRECTOR EXTERNAL COMMUNICATIONS Primary Care Provider Unavailable Encounter Details Date [...] Visit Family Medicine Kevin Miranda MD [address] [place] [address] (Wo rk) documented as of this encounter Visit Diagnoses Not on filedocumented in this encounter Care Teams Endoscopy Technician Relationship Specialty Start Date End Date Laurie Elias NP PCP - General Family Medicine 03/02/1811/19/19 documented as of this encounter
--- OUTSIDE RECORDS SUMMARY | 2021-12-05 15:33 | XMS_ITS | Encounter Summary ---
:1945 Author Organization [facility] Address [address] [facility], [address] [place] [address] Care Team Providers Name Role Phone JadaLaurie velasquez COPY AND PRINT ASSOCIATE Primary Care Provider Unavailable Encounter Details Date Type Department Care Team Description 03/09/2018 Rehab [facility] Physical Se lázaro Jason MD [address] [place] [address] Chronic low back pain, Therapy Pricila Curry, PT unspecified back pain [address] [facility], [facility], with [address] [place] [address] unspecified (Primary Dx) [phone] Social History Tobacco Use Types Packs/Day Years Used Date Former Smoker Smokeless Tobacco: Never Used Alcohol Use Standard Drinks/Week Comments Defer 0 (1 standard drink = 0.6 oz pure alcoho l) Sex Assigned at Date Recorded Female 04/12/2019 2:19 PM EST documented as of this encounter Progress Notes Pricila Curry, PT - 03/09/2018 9:30 AM EST Rehabilitation Services Physical Therapy [address] [facility], [address] [facility] [address] EVALUATION Molly Rios is a 73 [...] pain improved). Pt seen by PT at [facility] [place] R hip pain. Started doing side lying hip abd with 5 lb. Developed more pain (? Overdid her ex). + R sided groin pain. CC is weakness B hips. Referred to PT for consult. Will f/u with MD after completion of PT. Seen by ortho at [facility], advised to strengthen/stretch R LE. 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 baseline ex program without increased pain Independent with pain management techniques Independent with home exercise program The patient will be seen by the PT/DIRECTOR OF ENTERPRISE ARCHITECTURE with support from the Cash Room Clerk 2 times/week for 12 weeks. Treatment Intervention: Therapeutic exercises Patient education Manual techniques Pricila Curry, PT 03/09/2018 9:34 AM I certify that Molly Schmidt Gabriel requires the stated services. Physician's Signature: Print Name: Date: Time: documented in this encounter Plan of Treatment Upcoming Encounters Date Type Specialty Care Team Description 04/19/2022 Office Visit Family Medicine Kevin Miranda MD [address] [facility] [place] [address] (Wo rk) documented as of this encounter Visit Diagnoses Diagnosis Chronic low back pain, unspecified back pain laterality, with sciatica presence unspecified - Primary documented in this encounter Care Teams Forest Technology Professor Relationship Specialty Start Date End Date Laurie Elias NP PCP - General Family Medicine 03/02/1811/19/19 documented as of this encounter
--- OUTSIDE RECORDS SUMMARY | 2021-12-05 15:33 | XMS_ITS | Encounter Summary ---
:1945 Author Organization [facility] Address [address] [facility], [address] [place] [address] Care Team Providers Name Role Phone Laurie Elias RADIOSONDE SPECIALIST Primary Care Provider Unavailable Encounter Details Date Type Department Care Team Description 10/06/2018 Telephone [facility] zurita MD Consultants 330 [facility], [address] [facility] [address], [facility] [address] [place], [place] [address] [place] [address] [phone] (Wo rk) Social History Tobacco Use Types [...] Office Visit Family Medicine Kevin Miranda MD [address] [place] [address] (Wo rk) documented as of this encounter Visit Diagnoses Not on filedocumented in this encounter Care Teams Director Industrial Relations Relationship Specialty Start Date End Date Laurie Elias NP PCP - General Family Medicine 03/02/1811/19/19 documented as of this encounter
--- OUTSIDE RECORDS SUMMARY | 2021-12-05 15:33 | XMS_ITS | Encounter Summary ---
:1945 Author Organization [facility] Address 330 [facility], [address] [place] [address] Care Team Providers Name Role Phone Laurie Elias NP Primary Care Provider Unavailable Encounter Details Date Type Department Care Team Description 12/06/2018 Hospital Encounter [place] Astudillo am, MD Gastroenterology/Endosco 330 [facility], [address] [facility] e[place], [place] [address] [place] [address] [phone] Social History Tobacco Use Types Packs/Day [...] INSTRUCTIONS: Please call Dr. Astudillo office at [phone] if you develop the following symptoms in [...] Exam documented in this encounter Procedure Notes Dallsa Astudillo MD - 12/06/2018 9:47 AM EDTAssociated [...] cecum, confirmed by appendiceal orifice, cecal strap (coyote valley's foot), and ileocecal valve. The scope was withdrawn and the mucosa was carefully examined. The quality of the preparation was good. The views were good. The patient's toleration of the procedure was good. Scope(s)/SN:[id number] Time Started: 09:32 Cecum Time: 09:42 Time Ended: 09:47 Estimated Blood Loss: None. Findings: There was evidence of severe diverticulosis in the descending colon. Otherwise, the colon appeared to be normal. Complications: There were no immediate complications. Impression: Severe diverticulosis found in the descending colon. No sign of active diverticulitis Recommendations: Colonoscopy recommended in 10 years. Procedure Codes: 34052 - colonoscopy G0500 - moderate sedation ICD-9 [...] Visit Family Medicine Kevin Miranda MD [address] [place] [address] (Wo rk) documented as of [...] cecum, confirmed by appendiceal orifice, cecal strap (coyote valley's foot), and ileocecal valve. The scope was withdrawn and the mucosa w as carefully examined. The quality of the preparation was good. The views were good. The patient's toleration of the procedure wa s good. Scope(s)/SN:[id number] Time Star lesly: 09:32 Cecum Time: 09:42 Time Ended: :47 Estimated Blood Loss: None. Findings: There was evidence of severe d iverticulosis in the descending colon. Otherwise, the colon a ppeared to be normal. Complications: There were no immediate c omplications. Impression: Severe diverticulosis found in the descending colon. No sign of active diverticulitis Recommendations: Colonoscopy recommended in 10 years. Procedure Codes: 51399 - colonoscopy G05 00 - moderate sedation [...] Pre-op documented in this encounter Care Teams Distribution Center Associate Relationship Specialty Start Date End Date Laurie Elias NP PCP - General Family Medicine 03/02/1811/19/19 documented as of this encounter
--- OUTSIDE RECORDS SUMMARY | 2021-12-05 15:33 | XMS_ITS | Encounter Summary ---
:1945 Author Organization [facility] Address [address] [facility], [address] [place] [address] Care Team Providers Name Role Phone Laurie Elias SENIOR ENVIRONMENTAL ENGINEER Primary Care Provider Unavailable Encounter Details [...] Visit Family Medicine Kevin Miranda MD [address] [place] [address] (Wo rk) documented as of this encounter Visit Diagnoses Not on filedocumented in this encounter Care Teams Garbage Truck Dispatcher Relationship Specialty Start Date End Date Laurie Elias NP PCP - General Family Medicine 03/02/1811/19/19 documented as of this encounter
--- OUTSIDE RECORDS SUMMARY | 2021-12-05 15:33 | XMS_ITS | Encounter Summary ---
:1945 Author Organization [facility] Address [address] [facility], [address] [place] [address] Care Team Providers Name Role Phone Laurie Elias SLEEP TECHNOLOGIST Primary Care Provider Unavailable Encounter Details Date [...] Visit Family Medicine Kevin Miranda MD [address] [place] [address] (Wo rk) documented as of this encounter Visit Diagnoses Not on filedocumented in this encounter Care Teams Legal Adviser Relationship Specialty Start Date End Date Laurie Elias NP PCP - General Family Medicine 03/02/1811/19/19 documented as of this encounter
--- OUTSIDE RECORDS SUMMARY | 2021-12-05 15:33 | XMS_ITS | Encounter Summary ---
:1945 Author Organization [facility] Address 330 [facility], [address] [place] [address] Care Team Providers Name Role Phone Laurie Elias NP Primary Care Provider Unavailable Encounter Details Date Type Department Care Team Description 03/10/2018 Telephone [facility] Laurie Brown NP [address] [place], [place] [phone] Social History Tobacco Use Types Packs/Day Years [...] fever at night. As such, she contacted [facility] to be seen. Due to the [...] Office Visit Family Medicine Kevin Miranda MD [address] [place] [address] (Wo rk) documented as of this encounter Visit Diagnoses Not on filedocumented in this encounter Care Teams High School Chemistry Teacher Relationship Specialty Start Date End Date Laurie Elias NP PCP - General Family Medicine 03/02/1811/19/19 documented as of this encounter
--- OUTSIDE RECORDS SUMMARY | 2021-12-05 15:33 | XMS_ITS | Encounter Summary ---
:1945 Author Organization [facility] Address [address] [facility], [address] [place] [address] Care Team Providers Name Role Phone JadaHeatherLaurie EDUCATIONAL ASSISTANT TEACHER Primary Care Provider Unavailable Encounter Details Date Type Department Care Team Description 06/22/2018 Rehab [facility] Physical Se lázaro Jason MD [address] [place] [address] Chronic low back pain, Therapy Pricila Curry, PT unspecified back pain [address] [facility], [facility], with [address] [place] [address] unspecified (Primary Dx) [phone] Social History Tobacco Use Types Packs/Day Years Used Date Former Smoker Smokeless Tobacco: Never Used Alcohol Use Standard Drinks/Week Comments Defer 0 (1 standard drink = 0.6 oz pure alcoho l) Sex Assigned at Date Recorded Female 04/12/2019 2:19 PM EST documented as of this encounter Progress Notes Pricila Curry, PT - 06/22/2018 1:00 PM EDT Rehabilitation Services Physical Therapy [address] [facility], [address] [facility] [address] PROGRESS NOTE visit [address] [facility] Molly Rios is a 73 y.o. female.who has been referred to physical therapy by Dr. Jason with dx of R hip pain(decreased ROM, pelvic pain, groin pain, R SI pain, chronic glut medius tendinopathy). Pt reports she is a very active person at baseline. Noticed R LBP in June after swimming (changedher technique and pain improved). Pt seen by PT at [facility] for R hip pain. Started doing side lying hip abd with 5 lb. Developed more pain (? Overdid her ex). + R sided groin pain. CC is weakness B hips. Referred to PT for consult. Will f/u with MD after completion of PT. Seen by ortho at [facility] done, advised to strengthen/stretch R LE. ?? [...] Visit Family Medicine Kevin Miranda MD [address] [place], [place] [address] (Wo rk) documented as of this encounter Visit Diagnoses Diagnosis Chronic low back pain, unspecified back pain laterality, with sciatica presence unspecified - Primary documented in this encounter Care Teams Medical Support Specialist Relationship Specialty Start Date End Date Laurie Elias NP PCP - General Family Medicine 03/02/1811/19/19 documented as of this encounter
--- OUTSIDE RECORDS SUMMARY | 2021-12-05 15:33 | XMS_ITS | Encounter Summary ---
:1945 Author Organization [facility] Address [address] [facility], [address] [place] [address] Care Team Providers Name Role Phone Laurie Elias TABLE GAMES MANAGER Primary Care Provider Unavailable Encounter Details [...] Visit Family Medicine Kevin Miranda MD [address] [place] [address] (Wo rk) documented as of this encounter Visit Diagnoses Not on filedocumented in this encounter Care Teams Yarn Wrapper Relationship Specialty Start Date End Date Laruie Elias NP PCP - General Family Medicine 03/02/1811/19/19 documented as of this encounter
--- OUTSIDE RECORDS SUMMARY | 2021-12-05 15:33 | XMS_ITS | Encounter Summary ---
:1945 Author Organization [facility] Address 330 [facility], [address] [place] [address] Care Team Providers Name Role Phone Laurie Elias NP Primary Care Provider Unavailable Reason for Visit Specialty (Routine) - Closed Specialty Diagnoses / Referred By Contact Referred To Contact Procedures Physical Medicine and Diagnoses Low back pain MRI FOLLOW-UP Lias Sotelo MD Mostoufi, Seyed A, Rehabilitation Procedures FOLLOW UP [address] [place], [place] [address] [address] [place] [address] Fax: Referral ID Status Reason Start Date Expiration Date Visits Requ ested Visits Authorized [id number] Closed 06/13/2017 06/13/2018 8 8 Encounter Details Date Type Department Care Team Description 05/29/2018 Office Visit [facility], Lumbar fa cet arthropathy (Primary Dx); [facility] It band syndrome, left; [address] Lateral knee pain, left; [place] [address] [place], [place] Groin pain, chronic, left; [phone] Tendinopathy of left gluteus medius Social History [...] from the original note were not included. [facility] [employer] Dear Laurie Elias NP, I had a pleasure of reevaluating Ms. Molly Rios today at [facility], [facility]ener[facility]. Thank you for your referral and please call me if you have any questions regarding this encounter. Cezar Jason MD REASON FOR PM&R CONSULT Follow-up INTERVAL HISTORY : Molly Rios (1945) presenting today 06/04/18 for a follow-up. Since I saw her[facility] and diagnosed by [...] presentationnot require intervention. EDUCATION AND COUNSELING : [employer] In addition to in person counseling, patient [...] negative at a time of visit. RESULT REVIEWED([id number]) Available PACS as well as results reviewed [...] Visit Family Medicine Kevin Miranda MD [address] [place] [address] (Wo rk) documented as of this encounter Visit Diagnoses Diagnosis Lumbar facet arthropathy - Primary Spondylosis of unspecified site without mention of myelopathy It band syndrome, left Lateral knee pain, left Groin pain, chronic, left Tendinopathy of left gluteus medius documented in this encounter Care Teams Billposting Supervisor Relationship Specialty Start Date End Date Laurie lEias NP PCP - General Family Medicine 03/02/1811/19/19 documented as of this encounter
--- OUTSIDE RECORDS SUMMARY | 2021-12-05 15:33 | XMS_ITS | Encounter Summary ---
:1945 Author Organization [facility] Address 330 [facility], [address] [place] [address] Care Team Providers Name Role Phone Laurie Elias SINGER SONGWRITER Primary Care Provider Unavailable Encounter Details Date [...] Visit Family Medicine Kevin Miranda MD [address] [place] [address] (Wo rk) documented as of this encounter Visit Diagnoses Not on filedocumented in this encounter Care Teams Sales Service Coordinator Relationship Specialty Start Date End Date Laurie Elias NP PCP - General Family Medicine 03/02/1811/19/19 documented as of this encounter
--- OUTSIDE RECORDS SUMMARY | 2021-12-05 15:33 | XMS_ITS | Encounter Summary ---
:1945 Author Organization [facility] Address [address] [facility], [address] [place] [address] Care Team Providers Name Role Phone JadaHeather zha[facility]cca [facility] Primary Care Provider Unavailable Encounter Details Date Type Department Care Team Description 07/05/2018 Rehab [facility] Physical Se lázaro Jason MD [address] [place] [address] Chronic low back pain, Therapy Pricila Curry, PT unspecified back pain [address] [facility], [facility], with [address] [place] [address] unspecified (Primary Dx) [phone] Social History Tobacco Use Types Packs/Day Years Used Date Former Smoker Smokeless Tobacco: Never Used Alcohol Use Standard Drinks/Week Comments Defer 0 (1 standard drink = 0.6 oz pure alcoho l) Sex Assigned at Date Recorded Female 04/12/2019 2:19 PM EST documented as of this encounter Progress Notes Pricila Curry, PT - 07/05/2018 12:00 PM EDT Rehabilitation Services Physical Therapy [address] [facility], [address] [facility] [address] PROGRESS NOTE visit 12 [facility] Molly Rios is a 73 y.o. female.who has been referred to physical therapy by Dr. Jason with dx of R hip pain(decreased ROM, pelvic pain, groin pain, R SI pain, chronic glut medius tendinopathy). Pt reports she is a very active person at baseline. Noticed R LBP in June after swimming (changedher technique and pain improved). [place] [facility] [place]. Started doing side lying hip abd with 5 lb. Developed more pain (? Overdid her ex). + R sided groin pain. CC is weakness B hips. Referred to PT for consult. Seen by ortho [place] [facility], advised to strengthen/stretch R LE. ?? [...] Primary documented in this encounter Care Teams Chute Puller Relationship Specialty Start Date End Date Laurie Elias NP PCP - General Family Medicine 03/02/1811/19/19 documented as of this encounter
--- OUTSIDE RECORDS SUMMARY | 2021-12-05 15:34 | XMS_ITS | Encounter Summary ---
:1945 Author Organization [facility] Address 330 [facility], [address] [place] [address] Care Team Providers Name Role Phone Lisa Sotelo MD Primary Care Provider Reason for Visit Reason Comments Annual Exam Encounter Details Date Type Department Care Team Description 03/17/2017 Office Visit Kaushik Sotelo, Screening for iron deficiency anemia (Primary Dx); Practice MD Lisa Routine adult health maintenance; [facility] [place] [address] [facility]; [place] [address] [place] Screening for diabetes [facility] tu; [phone] Osteopenia, unspecified location; [phone] Other emphysema ([facility]); (Work) Insomnia, unspecified type; [phone] Gastroesophagea l reflux disease without esophagitis (Fax) [...] stress echo, but no results are in [facility]. She has had excellent lipids, [...] she has used it [place] Kelli Hansen [facility] Doesn't cough a lot other [...] going on. Continue corestrengthening. She can see stock trader to discuss more sophisticated testing, should she [...] Visit Family Medicine Kevin Miranda MD [address] [facility] [place] [address] (Wo rk) documented as of [...] for people identified as -Montserratian. eGFR NON-AFR. LATVIAN 86 > OR = 60 mL/min/1.73m2 [facility] eGFR 100 > OR = 60 mL/min/1.73m2 [facility] Specimen Anatomical Collection Method Collection Time Receive d Time (Source) Location / / Volume Laterality Blood Venous blood / 03/18/2017 10:05 8 Unknown AM EST 10:05 AM EST Narrative [facility] - 03/18/2017 10:35 PM EST FASTING:YES FASTING: YES Resulting Agency Comment Performing Organization Information: ?Site ID: [id number] ?Name: [facility] ?Address: [address] [place] [address], [place] [address] ?Director: Carlin Gutierrez Lisa Sotelo MD LAB BLOOD ORDERABLES Performing Organization Address City/State/ZIP Code Phon e Number Ushi [address] [address] [place] [address] [address] Glucose, random (03/18/2017 10:05 AM [...] Performing Organization Information: ?Site ID: [id number] ?Name: [facility] ?Address: [address] [place] [phone] ?Director: Carlin Gutierrez Lisa Sotelo MD LAB BLOOD ORDERABLES Performing Organization Address [facility] Phon e Number Ushi [address] [address] [place] [address], [address] CBC (03/18/2017 10:05 AM EST) [...] Performing Organization Information: ?Site ID: [id number] ?Name: [facility] ?Address: [address] [place] [phone] ?Director: Carlin Gutierrez Lisa Sotelo MD LAB BLOOD ORDERABLES Performing Organization Address [facility] Phon e Number [facility] [address] [address] [place] [address], [address] documented in this encounter Visit Diagnoses Diagnosis Screening for iron deficiency anemia - P rimary Routine adult health maintenance Bandemia Screening for diabetes mellitus Osteopenia, unspecified location Other emphysema (CMS/HCC) Other emphysema Insomnia, unspecified type Gastroesophageal reflux disease without esophagitis Esophageal reflux documented in this encounter Care Teams Para Educator Relationship Specialty Start Date End Date Lisa Sotelo MD PCP - General Family Medicine 08/19/16 03/01/[address] [place] [address] documented as of this encounter
--- OUTSIDE RECORDS SUMMARY | 2021-12-05 15:34 | XMS_ITS | Encounter Summary ---
:1945 Author Organization [facility] Address 330 [facility], [address] [place] [address] Care Team Providers Name Role Phone Lisa Sotelo MD Primary Care Provider Reason for Referral Diagnostic Imaging (Routine) - Closed Specialty Diagnoses / Procedures Referred By Contact Refer red To Contact Diagnoses Chronic pain of left knee Nawaf Jason MD Procedures X-ray Knee 3 Views Left [address] [place] [address] Referral ID Status Reason Start Date Expiration Date Visits Requ ested Visits Authorized [id number] Closed 06/13/2017 06/13/2018 1 1 Reason for Visit Diagnostic Imaging (Routine) - Closed Specialty Diagnoses / Procedures Referred By Contact Refer red To Contact Diagnoses Chronic pain of left knee Nawaf Jason MD Procedures X-ray Knee 3 Views Left [address] [place] [address] Referral ID Status Reason Start Date Expiration Date Visits Requ ested Visits Authorized [id number] Closed 06/13/2017 06/13/2018 1 1 Encounter Details Date Type Department Care Team Description 06/20/2017 Hospital Encounter [facility] Tolu Jason ed A, X-ray at [address] [facility] [address] [phone] (Wo rk) [address] [phone] Social History Tobacco Use Types Packs/Day Years [...] Visit Family Medicine Kevin Miranda MD [address] [place], [place] [address] (Wo rk) documented as [...] change. Dictated: 06/20/2017 4:16 PM Report ID: [id number] Report signed in external system at 06/20 16:16 Reported By: Wale Faustin M.D. (TAMICA P) Signed By: Wale Faustin M.D. (JACQUELINE) Narrative 06/20/2017 4:16 PM EDT RESPONSIBLE COMMUNICATIONS MARKETING INTERN: Wale Faustin M.D. EXAMINATION: XR KNEE 3 [...] might be different from the original. RESPONSIBLE COMMUNICATIONS MARKETING INTERN: Wale Faustin M.D. EXAMINATION: XR KNEE 3 [...] change. Dictated: 06/20/2017 4:16 PM Report ID: [id number] Report signed in external system at 06/20 16:16 Reported By: Wale Faustin M.D. (TAMICA P) Signed By: Wale Faustin M.D. (JACQUELINE) Nawaf Jason MD IMG XR PROCEDURES documented in this encounter Visit Diagnoses Diagnosis Chronic pain of left knee documented in this encounter Care Teams Skein Yard Drier Relationship Specialty Start Date End Date Lisa Sotelo MD PCP - General Family Medicine 08/19/16 03/01/18 [address] [place] [address] documented as of this encounter
--- OUTSIDE RECORDS SUMMARY | 2021-12-05 15:34 | XMS_ITS | Encounter Summary ---
:1945 Author Organization [facility] Address 330 [facility], [address] [place] [address] Care Team Providers Name Role Phone Lisa [...] Office Visit Family Medicine Kevin Miranda MD [facility]0 [place], [place] [address] (Wo rk) documented as of this encounter Visit Diagnoses Not on filedocumented in this encounter Care Teams Administrative Office Manager Relationship Specialty Start Date End Date Lisa Sotelo MD PCP - General Family Medicine 08/19/16 03/01/[address] [place] [address] documented as of this encounter
--- OUTSIDE RECORDS SUMMARY | 2021-12-05 15:34 | XMS_ITS | Encounter Summary ---
:1945 Author Organization [facility] Address 330 [facility], [address] [place] [address] Care Team Providers Name Role Phone Lisa Sotelo MD Primary Care Provider Encounter Details Date Type Department Care Team Description 08/15/2017 Scan Document - View [facility] iLsa Sotelo in [facility] [address] [place] [address] [place] [address] Social History Tobacco Use Types Packs/Day Years [...] Visit Family Medicine Kevin Miranda MD [address] [place] [address] (Wo rk) documented as of this encounter Visit Diagnoses Not on filedocumented in this encounter Care Teams Field Representative/Health Education Relationship Specialty Start Date End Date Lisa Sotelo MD PCP - General Family Medicine 08/19/16 03/01/[address] [place] [address] documented as of this encounter
--- OUTSIDE RECORDS SUMMARY | 2021-12-05 15:34 | XMS_ITS | Encounter Summary ---
:1945 Author Organization [facility] Address 330 [facility], [address] [place] [address] Care Team Providers Name Role Phone Laurie Elias BULK TANK CAR UNLOADER Primary Care Provider Unavailable Encounter Details Date Type Department Care Team Description 03/03/2018 Telephone Family Practice Jason Veloz MD [address] [place] [address], [facility] te 1A [address] [facility], [place] [address] 1A [phone] [place], [place] [address] (Wo rk) Social History [...] Visit Family Medicine Kevin Miranda MD 1020 [facility] [place] [address] (Wo rk) documented as of this encounter Visit Diagnoses Not on filedocumented in this encounter Care Teams Varnishing Machine Operator Relationship Specialty Start Date End Date Laurie Elias NP PCP - General Family Medicine 03/02/1811/19/19 documented as of this encounter
--- OUTSIDE RECORDS SUMMARY | 2021-12-05 15:34 | XMS_ITS | Encounter Summary ---
:1945 Author Organization [facility] Address 330 [facility], [address] [place] [address] Care Team Providers Name Role Phone Lisa Sotelo MD Primary Care Provider Encounter Details Date Type Department Care Team Description 04/14/2017 Office Visit [facility] Lisa Sotelo MD Canceled (Error) Practice [address] [place] [address] [phone] (Wo rk) Social History Tobacco Use Types [...] Visit Family Medicine Kevin Miranda MD [address] [place] [address] (Wo rk) documented as of this encounter Visit Diagnoses Not on filedocumented in this encounter Care Teams Financial Reserve Clerk Relationship Specialty Start Date End Date Lisa Sotelo MD PCP - General Family Medicine 08/19/16 03/01/[address] [place] [address] documented as of this encounter
--- OUTSIDE RECORDS SUMMARY | 2021-12-05 15:34 | XMS_ITS | Encounter Summary ---
:1945 Author Organization [facility] Address 330 [facility], [address] [place] [address] Care Team Providers Name Role Phone Lisa Sotelo MD Primary Care Provider Encounter Details Date Type Department Care Team Description 07/08/2017 Scan Document - View [facility] Lisa Sotelo, in Chart Practice [address] [place], [place] [address] [place], [place] [phone] Social History Tobacco Use Types Packs/Day Years [...] Visit Family Medicine Kevin Miranda MD [address] [place] [address] (Wo rk) documented as of this encounter Visit Diagnoses Not on filedocumented in this encounter Care Teams Tilt Tray Driver Relationship Specialty Start Date End Date Lisa Sotelo MD PCP - General Family Medicine 08/19/16 03/01/[address] [place] [address] documented as of this encounter
--- OUTSIDE RECORDS SUMMARY | 2021-12-05 15:34 | XMS_ITS | Encounter Summary ---
:1945 Author Organization [facility] Address 330 [facility], [address] [place] [address] Care Team Providers Name Role Phone Kevin Miranda MD Primary Care Provider Reason for Visit Reason Comments Med Refill Encounter Details Date Type Department Care Team Description 06/06/2017 Refill [employer] [facility] Lisa Gudino MD [address] [place] [address] [place] [address] [phone] (Wo rk) Social History Tobacco Use Types [...] Visit Family Medicine Kevin Miranda MD [address] [place] [address] (Wo rk) documented as of this encounter Visit Diagnoses Not on filedocumented in this encounter Care Teams Stick Welder Relationship Specialty Start Date End Date Kevin Miranda MD PCP - General Family Medicine 11/20/[address] [place] [address] documented as of this encounter
--- OUTSIDE RECORDS SUMMARY | 2021-12-05 15:34 | XMS_ITS | Encounter Summary ---
:1945 Author Organization [facility] Address 330 [facility], [address] [place] [address] Care Team Providers Name Role Phone Lisa Sotelo MD Primary Care Provider Reason for Visit Reason Comments Follow-up Encounter Details Date Type Department Care Team Description 03/31/2017 Office Visit Lisa Newton, Insomni a, unspecified type (Primary Dx); Practice MD Anxiety and depression; [address] Osteopenia, unspecified location; [place] [address] [place] [phone] Social History Tobacco Use Types Packs/Day Years [...] to send back to [facility] in [place]. Osteopenia; Her own records say she always [...] note. I again suggested she see a house painter helper Critical access hospital to discuss more sophisticated testing. IN perusing old record, Dr. Trevizo had made the same suggestion 11/2015. addendum after patient had left. Perusal of old chart reveals that she was started on Dzdoufjloco96.5 mg dailyby psychopharmacologist in 2004 for depression. [...] Visit Family Medicine Kevin Miranda MD 10[address] [place], [place] [address] (Wo rk) documented as of this encounter Visit Diagnoses Diagnosis Insomnia, unspecified type - Primary Anxiety and depression Osteopenia, unspecified location Rosacea documented in this encounter Care Teams Magazine Supervisor Relationship Specialty Start Date End Date Lisa Sotelo MD PCP - General Family Medicine 08/19/16 03/01/[address] [place] [address] documented as of this encounter
--- OUTSIDE RECORDS SUMMARY | 2021-12-05 15:34 | XMS_ITS | Encounter Summary ---
:1945 Author Organization [facility] Address 330 [facility], [address] [place] [address] Care Team Providers Name Role Phone Lisa [...] Kevin Miranda MD [facility] [place], [place] [address] (Wo rk) documented as of this encounter Visit Diagnoses Not on filedocumented in this encounter Care Teams Gas Regulator Repairer Relationship Specialty Start Date End Date Lisa Sotelo MD PCP - General Family Medicine 08/19/16 03/01/[address] [place] [address] documented as of this encounter
--- OUTSIDE RECORDS SUMMARY | 2021-12-05 15:34 | XMS_ITS | Encounter Summary ---
:1945 Author Organization [facility] Address 330 [facility], [address] [place] [address] Care Team Providers Name Role Phone Laurie Elias NP Primary Care Provider Unavailable Reason for Referral Rehab (Routine) - Closed Specialty Diagnoses / Procedures Referred By Contact Refer red To Contact Physical Therapy Diagnoses Groin pain, chronic, left Nawaf Jason MD Duddy, Cathy, PT [address] [place] [address] Referral ID Status Reason Start Date Expiration Date Visits V isits Requested Authorized [id number] Closed Specialty 01/25/2018 01/25/2019 1 1 Services Required Reason for Visit Specialty (Routine) - Closed Specialty Diagnoses / Referred By Contact Referred To Contact Procedures Physical Medicine and Diagnoses Low back pain MRI FOLLOW-UP Lisa Sotelo MD Mostoufi, Seyed A, Rehabilitation Procedures FOLLOW UP [address] [place] [address] [facility] [place] [address] [place] [address] Fax: Referral ID Status Reason Start Date Expiration Date Visits Requ ested Visits Authorized [id number] Closed 06/13/2017 06/13/2018 8 8 Encounter Details Date Type Department Care Team Description 01/25/2018 Office Visit Nwaaf Faulkner, Lumbar fa cet arthropathy (Primary Dx); Physiatry, [facility] Radiculopathy, lumbar region; [address] It band syndrome, left; [place] [address] [place], [place] Groin pain, chronic, left; [phone] Tendinopathy of left gluteus medius Social History [...] from the original note were not included. [facility] Spine, Sports and Regenerative Medicine T: [phone] F:[phone] [email or web address] .[employer] Patient / [place] : 1945 PCP Lisa Sotelo MD Visit Location [facility]- [place] : [address] [phone] Provider Nawaf Jason MD REASON FOR PM&R [...] flavum hypertrophy. Bilateral disc protrusions result in koxx-is-cvoyeuov right and mild left neural foraminal narrowing, [...] physical therapist on this includes working on church of her range of motion working and [...] available PT notes obtained & reviewed. RESULT REVIEWED([id number]) Available PACS as well as results reviewed [...] views ap lat Narrative [place] Ministerio [id number] [facility] Silvia.Yessy Leyva Kallie UNK [id number] 1945 68 07/02/2013 Clinical History: RT BUTTOCK AND HIP PAIN EXAM# TYPE/EXAM RESULT [id number]/LUMBAR SPINE 2-3 VIEWS Attending Radiologist: MD OROZCO [...] are preserved. Impression: Degenerative change. Report ID: [id number] Dictated: 07/02/13 1328 PAGE 1 Signed Report (CONTINUED) [place] [id number] Stewart JohnYessy UNK UNK [id number] 1945 68 07/02/2013 Clinical History: RT BUTTOCK AND HIP PAIN EXAM# TYPE/EXAM RESULT [id number] NRG879/LUMBAR SPINE 2-3 VIEWS <Continued> ---- Electronic Signature on File ---- Signed By: RAMA OROZCO M.D. Reported By: RAMA OROZCO M.D. CC: Hieu Trevizo M.D.; Yessy William N.P. PAGE 2 Signed Report CC: Hieu Trevizo M.D.; Yessy William N.P. PAGE 2 Signed Report Radiologist JACQUELINE Custody Assistant: PANKAJ [employer] Rep: CRISTIAN Results for orders placed during the hospital encounter of 06/22/17 MRI Lumbar Spine without Contrast Narrative RESPONSIBLE RIP MACHINE OPERATOR: Dusty Norwood M.D. EXAMINATION: MRI LUMBAR SPINE [...] canal stenosis. Bilateral disc protrusions result in rpjl-ad-yrsytukb right and mild left neural foraminal narrowing, [...] foramina and contact of the exiting right Q9pjbvm root. There is gdzu-cq-mafxidis encroachment of the left neural foramina, but [...] flavum hypertrophy. Bilateral disc protrusions result in ktop-kt-nulsdivc right and mild left neural foraminal narrowing, [...] for further education on the topic : [employer] DISCLAIMER Please note that this record has [...] Visit Family Medicine Kevin Miranda MD [facility] [place], [place] [address] (Wo rk) Scheduled Orders [...] medius documented in this encounter Care Teams Circular Clerk Relationship Specialty Start Date End Date Laurie Elias NP PCP - General Family Medicine 03/02/1811/19/19 documented as of this encounter
--- OUTSIDE RECORDS SUMMARY | 2021-12-05 15:34 | XMS_ITS | Encounter Summary ---
:1945 Author Organization [facility] Address 330 [facility], [address] [place] [address] Care Team Providers Name Role Phone Lisa Sotelo MD Primary Care Provider Encounter Details Date Type Department Care Team Description 06/27/2017 Scan Document - View [facility] Lisa Sotelo, in Chart Practice [address] [place], [place] [address] [place], [place] [phone] Social History Tobacco Use Types Packs/Day Years [...] Visit Family Medicine Kevin Miranda MD [address] [place] [address] (Wo rk) documented as of this encounter Visit Diagnoses Not on filedocumented in this encounter Care Teams Laser Machine Operator Relationship Specialty Start Date End Date Lisa Sotelo MD PCP - General Family Medicine 08/19/16 03/01/[address] [place] [address] documented as of this encounter
--- OUTSIDE RECORDS SUMMARY | 2021-12-05 15:34 | XMS_ITS | Encounter Summary ---
:1945 Author Organization [facility] Address 330 [facility], [address] [place] [address] Care Team Providers Name Role Phone Laurie Elias GARBAGE COLLECTOR DRIVER Primary Care Provider Unavailable Encounter Details Date Type Department Care Team Description 03/02/2018 Orders Only [facility] Laurie Brown NP [address] [place] [address] Social History Tobacco Use Types [...] Visit Family Medicine Kevin Miranda MD [address] [place], [place] [address] (Wo rk) documented as [...] (03/02/2018 3:15 PM EST) Analysis Performed At [facility] Time Signature White Blood TNP [place] Count L [facility] Comment: * Test not performed. ? * * Duplicate test. ? * Specimen Anatomical Collection Method Collection Time Receive d Time (Source) Location / / Volume Laterality 03/02/2018 3:15 PM 9 3:18 EST PM EST Laurie Elias NP LAB BLOOD ORDERABLES Performing Organization Address [facility] Phon e Number [facility] [address] [email or web address] [address] [place] [address] [employer] [address] [id number] [facility] Basic metabolic panel (03/02/2018 3:15 PM EST) P athologist Signature Glucose TNP mg/dL [email or web address] [place] [facility] [employer] Comment: * Test not performed. ? * * Duplicate test. ? * Specimen Anatomical Collection Method Collection Time Receive d Time (Source) Location / / Volume Laterality 03/02/2018 3:15 PM 9 3:18 EST PM EST Laurie Elias NP LAB BLOOD ORDERABLES Performing Organization Address [facility] Phon e Number [facility] [address], [address] [email or web address] [address] [place] [address] [employer] [address] [phone] [facility] documented in this encounter Visit Diagnoses Not on filedocumented in this encounter Care Teams Traveling Representative Relationship Specialty Start Date End Date Laurie Elias NP PCP - General Family Medicine 03/02/1811/19/19 documented as of this encounter
--- OUTSIDE RECORDS SUMMARY | 2021-12-05 15:34 | XMS_ITS | Encounter Summary ---
:1945 Author Organization [facility] Address 330 [facility], [address] [place] [address] Care Team Providers Name Role Phone Lisa Sotelo MD Primary Care Provider Reason for Visit Reason Comments Follow-up on medication Encounter Details Date Type Department Care Team Description 03/10/2017 Office Visit [facility] actLisa Segundo MD Sleep disorder [address] [place] [address] [place] [address] [place] [address] [phone] (Wo rk) Social History Tobacco Use Types [...] Visit Family Medicine Kevin Miranda MD [address] [place], [place] [address] (Wo rk) documented as of this encounter Visit Diagnoses Diagnosis Sleep disorder Unspecified sleep disturbance documented in this encounter Care Teams Tax Staff Accountant Relationship Specialty Start Date End Date Lisa Sotelo MD PCP - General Family Medicine 08/19/16 03/01/[address] [place] [address] documented as of this encounter
--- OUTSIDE RECORDS SUMMARY | 2021-12-05 15:34 | XMS_ITS | Encounter Summary ---
:1945 Author Organization [facility] Address 330 [facility], [address] [place] [address] Care Team Providers Name Role Phone Laurie Elias NP Primary Care Provider Unavailable Reason for Visit Reason Onset Date Comments Abdominal Pain 03/02/2018 Encounter Details Date Type Department Care Team Description 03/02/2018 Telephone [facility], [facility] [address] [facility] [place] t, [facility] [address] [address] [place] [address] , [address] [place], [place] [address] (Wo rk) Social History [...] Visit Family Medicine Kevin Miranda MD 1020 [facility] [place] [address] (Wo rk) documented as of this encounter Visit Diagnoses Not on filedocumented in this encounter Care Teams Environmental Emergencies Assistant Relationship Specialty Start Date End Date Laurie Elias NP PCP - General Family Medicine 03/02/1811/19/19 documented as of this encounter
--- OUTSIDE RECORDS SUMMARY | 2021-12-05 15:34 | XMS_ITS | Encounter Summary ---
:1945 Author Organization [facility] Address [address] [facility], [address] [place] [address] Care Team Providers Name Role Phone Lisa Sotelo MD Primary Care Provider Reason for Referral (Routine) - Closed Specialty Diagnoses / Procedures Referred By Contact Refer red To Contact Diagnoses COPD (chronic obstructive pulmonary disease) ([facility]) Lisa Sotelo MD Procedures Pulmonary function test [address] [place] [address] Referral ID Status Reason Start Date Expiration Date Visits Requ ested Visits Authorized [id number] Closed 08/18/2016 02/14/2017 1 1 Reason for Visit (Routine) - Closed Specialty Diagnoses / Procedures Referred By Contact Refer red To Contact Diagnoses COPD (chronic obstructive pulmonary disease) ([facility]) Lisa Sotelo MD Procedures Pulmonary function test [address] [place] [address] Referral ID Status Reason Start Date Expiration Date Visits Requ ested Visits Authorized [id number] Closed 08/18/2016 02/14/2017 1 1 Encounter Details Date Type Department Care Team Description 11/23/2016 Hospital Encounter [place] [facility] Lisa Monroe MD Function [address] [place] [phone] Social History Tobacco Use Types Packs/Day [...] Visit Family Medicine Kevin Miranda MD [address] [place], [place] [address] (Wo rk) documented as of this encounter Procedures Procedure Name Priority Date/Time Associated Comments Diagnosis FULL PFT WITH Routine 11/23/2016 10:42 COPD (chronic Results f or this BRONCHODILATORS AM EDT obstructive procedure ar e in pulmonary disease) the resul ts ([facility]) section. documented in this encounter Results FULL PFT WITH BRONCHODILATORS (11/23/2016 10:42 AM EDT) Specimen (Source) Anatomical Collection Method Collection Time Re ceived Time Location / / Volume Laterality 11/23/2016 9:56 AM EDT [facility] - 12/07/2016 2:27 PM EDT [...] Organization Address City/State/ZIP Code Phon e Number [facility] [address] [place] [address] documented in this encounter Visit Diagnoses Diagnosis COPD (chronic obstructive pulmonary dise ase) ([facility]) Chronic airway obstruction, not elsewher e classified documented in this encounter Care Teams Loop Drier Operator Relationship Specialty Start Date End Date Lisa Sotelo MD PCP - General Family Medicine 08/19/16 03/01/18 [address] [facility] [place] [address] documented as of this encounter
--- OUTSIDE RECORDS SUMMARY | 2021-12-05 15:34 | XMS_ITS | Encounter Summary ---
:1945 Author Organization [facility] Address [address] [facility], [address] [place] [address] Care Team Providers Name Role Phone Laurie Elias NP Primary Care Provider Unavailable Encounter Details Date Type Department Care Team Description 03/06/2018 Telephone [facility] Miguel José Antonio ling MD Consultants 330 [facility], [address] [facility] [address], [facility] [address] [address] [phone] (Wo rk) Social History Tobacco Use Types [...] Visit Family Medicine Kevin Miranda MD [address] [place], [place] [address] (Wo rk) documented as of this encounter Visit Diagnoses Not on filedocumented in this encounter Care Teams Roto Mixer Operator Relationship Specialty Start Date End Date Laurie Elias NP PCP - General Family Medicine 03/02/1811/19/19 documented as of this encounter
--- OUTSIDE RECORDS SUMMARY | 2021-12-05 15:34 | XMS_ITS | Encounter Summary ---
:1945 Author Organization [facility] Address 330 [facility], [address] [place] [address] Care Team Providers Name Role Phone Kevin Miranda MD Primary Care Provider Reason for Visit Reason Comments Med Refill Encounter Details Date Type Department Care Team Description 03/10/2017 Refill [employer] [facility] Lisa Gudino MD [address] [place] [address] [place] [address] [phone] (Wo rk) Social History Tobacco Use Types [...] Visit Family Medicine Kevin Miranda MD [address] [place] [address] (Wo rk) documented as of this encounter Visit Diagnoses Not on filedocumented in this encounter Care Teams Sales Data Analyst Relationship Specialty Start Date End Date Kevin Miranda MD PCP - General Family Medicine 11/20/[address] [place] [address] documented as of this encounter
--- OUTSIDE RECORDS SUMMARY | 2021-12-05 15:34 | XMS_ITS | Encounter Summary ---
:1945 Author Organization [facility] Address 330 [facility], [address] [place] [address] Care Team Providers Name Role Phone Lisa Sotelo MD Primary Care Provider Encounter Details Date Type Department Care Team Description 01/26/2018 Office Visit [place], Diverticulitis of Gastrointestinal MD [place] large intestine Consultants 330 [facility] without perforation or [address] [facility], absce ss without [address] bleeding (Primary Dx) [place] [address] [place], [place] [phone] [address] Social History Tobacco Use Types Packs/Day Years [...] were not included. 01/28/18 [place] Gorman M.D. specialty sales representative, [facility] Chief, Gastroenterology [facility] [address] [place] [address] FAX [phone] Email: [email or web address] 01/28/18 Re: [id number] Molly Rios Referring physician: Lisa Sotelo MD [address] [facility] [address] Molly Rios is a 72 y.o. female [...] Visit Family Medicine Kevin Miranda MD [address] [place] [address], [place] [address] (Wo rk) documented as of this encounter Visit Diagnoses Diagnosis Diverticulitis of large intestine withou t perforation or abscess without bleeding - Primary documented in this encounter Care Teams Documentation Engineer Relationship Specialty Start Date End Date Lisa Sotelo MD PCP - General Family Medicine 08/19/16 03/01/18 [address] [place] [address] documented as of this encounter
--- OUTSIDE RECORDS SUMMARY | 2021-12-05 15:34 | XMS_ITS | Encounter Summary ---
:1945 Author Organization [facility] Address 330 [facility], [address] [place] [address] Care Team Providers Name Role Phone Kevin Miranda MD Primary Care Provider Encounter Details Date Type Department Care Team Description 06/13/2017 Procedure [facility] MRI [address] [place] [address] [phone] Social History Tobacco Use Types [...] Visit Family Medicine Kevin Miranda MD [address] [place] [address] (Wo rk) documented as of this encounter Visit Diagnoses Not on filedocumented in this encounter Care Teams Transport Corps Officer Relationship Specialty Start Date End Date Kevin Miranda MD PCP - General Family Medicine 11/20/[address] [place] [address] documented as of this encounter
--- OUTSIDE RECORDS SUMMARY | 2021-12-05 15:34 | XMS_ITS | Encounter Summary ---
:1945 Author Organization [facility] Address 330 [facility], [address] [place] [address] Care Team Providers Name Role Phone Laurie Elias NP Primary Care Provider Unavailable Encounter Details Date Type Department Care Team Description 02/17/2018 Scan Document - View [facility] Practice ANN Krishnamurthy [address] [place], [place] [phone] Social History Tobacco Use Types Packs/Day Years [...] Office Visit Family Medicine Kevin Miranda MD [facility] [place], [place] [address] (Wo rk) documented as of this encounter Visit Diagnoses Not on filedocumented in this encounter Care Teams Grievance Coordinator Relationship Specialty Start Date End Date Laurie Elias NP PCP - General Family Medicine 03/02/1811/19/19 documented as of this encounter
--- OUTSIDE RECORDS SUMMARY | 2021-12-05 15:34 | XMS_ITS | Encounter Summary ---
:1945 Author Organization [facility] Address 330 [facility], [address] [place] [address] Care Team Providers Name Role Phone Lisa [...] Family Medicine Kevin Miranda MD [facility] [place], [place] [address] (Wo rk) documented as of this encounter Visit Diagnoses Not on filedocumented in this encounter Care Teams Machine Stuffer Automatic Relationship Specialty Start Date End Date Lisa Sotelo MD PCP - General Family Medicine 08/19/16 03/01/[address] [place] [address] documented as of this encounter
--- OUTSIDE RECORDS SUMMARY | 2021-12-05 15:34 | XMS_ITS | Encounter Summary ---
:1945 Author Organization [facility] Address [address] [facility], [address] [place] [address] Care Team Providers Name Role Phone Lisa Sotelo MD Primary Care Provider Encounter Details Date Type Department Care Team Description 06/06/2017 Documentation [facility] Lisa Gudino MD [address] [place] [address] [place] [address] [phone] (Wo rk) Social History Tobacco Use Types [...] Visit Family Medicine Kevin Miranda MD [address] [place] [address] (Wo rk) documented as of this encounter Visit Diagnoses Not on filedocumented in this encounter Care Teams Education Rn Relationship Specialty Start Date End Date Lisa Sotelo MD PCP - General Family Medicine 08/19/16 03/01/18 [address] [place] [address] documented as of this encounter
--- OUTSIDE RECORDS SUMMARY | 2021-12-05 15:34 | XMS_ITS | Encounter Summary ---
:1945 Author Organization [facility] Address 330 [facility], [address] [place] [address] Care Team Providers Name Role Phone Lisa [...] Miranda MD [facility] [place], [place] [address] (Wo rk) documented as of this encounter Visit Diagnoses Not on filedocumented in this encounter Care Teams Cover Maker Relationship Specialty Start Date End Date Lisa Sotelo MD PCP - General Family Medicine 08/19/16 03/01/[address] [place] [address] documented as of this encounter
--- OUTSIDE RECORDS SUMMARY | 2021-12-05 15:34 | XMS_ITS | Encounter Summary ---
:1945 Author Organization [facility] Address 330 [facility], [address] [place] [address] Care Team Providers Name Role Phone Lisa Sotelo MD Primary Care Provider Encounter Details Date Type Department Care Team Description 05/23/2017 Scan Document - View [facility] Lisa Sotelo, in Chart Practice [address] [place], [place] [address] [place], [place] [phone] Social History Tobacco Use Types Packs/Day Years [...] Visit Family Medicine Kevin Miranda MD [address] [place] [address] (Wo rk) documented as of this encounter Visit Diagnoses Not on filedocumented in this encounter Care Teams Credit Card Control Clerk Relationship Specialty Start Date End Date Lisa Sotelo MD PCP - General Family Medicine 08/19/16 03/01/[address] [place] [address] documented as of this encounter
--- OUTSIDE RECORDS SUMMARY | 2021-12-05 15:34 | XMS_ITS | Encounter Summary ---
:1945 Author Organization [facility] Address [address] [facility], [address] [place] [address] Care Team Providers Name Role Phone Lisa Sotelo MD Primary Care Provider Encounter Details Date Type Department Care Team Description 08/01/2017 Refill [facility] Pr actice Lisa Sotelo MD [facility] [address] [address] [place] [address] [phone] (Wo rk) Social History Tobacco Use Types [...] Visit Family Medicine Kevin Miranda MD [address] [place] [address] (Wo rk) documented as of this encounter Visit Diagnoses Not on filedocumented in this encounter Care Teams Software Quality Engineer Relationship Specialty Start Date End Date Lisa Sotelo MD PCP - General Family Medicine 08/19/16 03/01/[address] [place] [address] documented as of this encounter
--- OUTSIDE RECORDS SUMMARY | 2021-12-05 15:34 | XMS_ITS | Encounter Summary ---
:1945 Author Organization [facility] Address 330 [facility], [address] [place] [address] Care Team Providers Name Role Phone Lisa [...] Kevin Miranda MD [facility] [place], [place] [address] (Wo rk) documented as of this encounter Visit Diagnoses Not on filedocumented in this encounter Care Teams Negotiator Relationship Specialty Start Date End Date Lisa Sotelo MD PCP - General Family Medicine 08/19/16 03/01/[address] [place] [address] documented as of this encounter
--- OUTSIDE RECORDS SUMMARY | 2021-12-05 15:34 | XMS_ITS | Encounter Summary ---
:1945 Author Organization [facility] Address 330 [facility], [address] [place] [address] Care Team Providers Name Role Phone Laurie Elias NP Primary Care Provider Unavailable Reason for Referral Diagnostic Imaging (Routine) - Closed Specialty Diagnoses / Procedures Referred By Contact Refer red To Contact Radiology Diagnoses Diverticulitis Lower abdominal pain Laurie Elias NP Procedures CT Abdomen Pelvis with Contrast [address] [place] [address] Referral ID Status Reason Start Date Expiration Date Visits Requ ested Visits Authorized [id number] Closed 03/02/2018 03/02/2019 1 1 Encounter Details Date Type Department Care Team Description 03/02/2018 Office Visit Kaushik Elias, Diverticul itis (Primary Dx); Practice ANN Sullivan Lower abdominal pain [address] [place] [address] Social History Tobacco Use Types Packs/Day Years [...] female with PMHx known severe sigmoid diverticulosis ([id number]) who presents for same-day visit. She believes she may be having a flare-up of diverticulitis. She had similar symptoms in 12/2017, and she improved with a course of augmentin and bowel rest. Since that time, she has been generally well. She followed-up with Dr. Gorman at [facility] 01/26/[address] if [...] Visit Family Medicine Kevin Miranda MD [address] [place], [place] [address] (Wo rk) documented as [...] ation. Dictated: 03/03/2018 10:05 PM Report ID: [id number] Report signed in external system at 03/03 22:05 Reported By: Andi Hartley M.D. (residen t) ([id number]) Signed By: Gt Ledezma M.D. (LAURA D) Narrative 03/03/2018 10:05 PM EST RESPONSIBLE ELECTRICAL SERVICE TECHNICIAN: Gt Ledezma M.D. EXAMINATION: CT ABDOMEN PELVIS [...] might be different from the original. RESPONSIBLE ELECTRICAL SERVICE TECHNICIAN: Gt Ledezma M.D. EXAMINATION: CT ABDOMEN PELVIS [...] ation. Dictated: 03/03/2018 10:05 PM Report ID: [id number] Report signed in external system at 03/03 22:05 Reported By: Andi Hartley M.D. (pam dorman) ([id number]) Signed By: Gt Ledezma M.D. (LAURA Betancur) Laurie Elias NP IMG CT PROCEDURES (ABNORMAL) [facility] - CBC (with Differential and Platelets) (03/02/2018 3:10 PM EST) [facility] Method Time Signature White Blood 19.4 (H) 3.8 - [facility] Count 10.8 Diagnostics Thousand/ [place] [facility] Red Blood Count 4.52 3.80 - [facility] 5.10 Diagnostics Million/u [place] [facility] Hemoglobin 14.2 11.7 - [facility] 15.5 g/dL [facility] [place] [facility] Hematocrit 41.5 35.0 - [facility] 45.0 % [facility] [place] [facility] MCV 91.8 80.0 - [facility] 100.0 fL [facility] [place] [facility] MCH 31.4 27.0 - [facility] 33.0 pg [facility] [place] [facility] MCHC 34.2 32.0 - [facility] 36.0 g/dL [facility] [place] [facility] MRDW 13.0 11.0 - [facility] 15.0 % [facility] [place] [facility] Platelet count 276 140 - 400 [facility] Thousand/ Diagnostics uL [place] [facility] MPV 10.1 7.5 - [facility] 12.5 fL [facility] [place] [facility] Absolute 17,324 1,500 - [facility] Neutrophil (H) 7,800 Diagnostics Count cells/uL [place] [facility] Lymphosytes 873 850 - [facility] absolute 3,900 Diagnostics cells/uL [place] [facility] Absolute 1,125 (H) 200 - 950 [facility] Monocyte count cells/uL [facility] [place] [facility] Absolute 19 15 - 500 [facility] Eosinophil cells/uL Diagnostics count [place] [facility] Lymphocyte 58 0 - 200 [facility] cells/uL [facility] [place] Neutrophils 89.3 % [facility] Lymphocyte 4.5 % [facility] [place] [facility] Monocytes 5.8 % [facility] [place] [facility] Eosinophil 0.1 % [facility] [place] [facility] Basophil 0.3 % [facility] [place] [facility] Specimen Anatomical Collection Method Collection Time Receive d Time (Source) Location / / Volume Laterality Blood Venous blood / 03/02/2018 3:10 PM 019 Unknown EST 10:39 PM EST Laurie Elias NP LAB BLOOD ORDERABLES Performing Organization Address City/State/ZIP Code Phon e Number [email or web address] [address] [address] [place] [address] [address] [facility] [address] [place] [address] [employer] [phone] Diagnost (ABNORMAL) Basic metabolic panel (03/02/2018 3:10 PM EST) athologist Signature Glucose 106 (H) 65 - 99 [facility] mg/dL [place] [facility] [employer] Comment: ? Fasting reference interv al For someone without known diabetes, a gl ucose value between 100 and 125 mg/dL is consistent with prediabetes and should be confirmed with a follow-up test. Bun 11 7 - 25 mg/dL [facility] [place] [facility] Creatinine, Ser 0.67 0.60 - 0.93 mg/dL [facility] [place] [facility] Comment: For patients >49 years of age, the refer ence limit for Creatinine is approximately 13% high er for people identified as -Honduran. eGFR NON-AFR. 88 > OR = 60 mL/min/1.73m2 Qu est Diagnostics [facility] eGFR 102 > OR = 60 mL/min/1.73m2 Que st Diagnostics [facility] [employer] [facility] BUN/Creatinine NOT APPLICABLE 6 - 22 (calc) [facility] Ratio [place] [facility] Sodium 138 135 - 146 mmol/L [facility] [place] Potassium 4.0 3.5 - 5.3 mmol/L [facility] [place] Chloride 102 98 - 110 mmol/L [facility] [place] CO2 28 20 - 32 mmol/L [facility] [place] Calcium 9.9 8.6 - 10.4 mg/dL [facility] [place] Specimen Anatomical Collection Method Collection Time Receive d Time (Source) Location / / Volume Laterality Blood Venous blood / 03/02/2018 3:10 PM 019 Unknown EST 10:39 PM EST Laurie Elias NP LAB BLOOD ORDERABLES Performing Organization Address City/State/ZIP Code Phon e Number [facility] [address] [address] [place] [address] [address] [facility] [address] [place] [address] [employer] [phone] Diagnost documented in this encounter Visit Diagnoses Diagnosis Diverticulitis - Primary Diverticulitis of colon (without mention of hemorrhage) Lower abdominal pain Abdominal pain, other specified site Diverticulitis Diverticulitis of colon (without mention of hemorrhage) Lower abdominal pain Abdominal pain, other specified site documented in this encounter Care Teams Irrigation Foreman Relationship Specialty Start Date End Date Laurie Elias NP PCP - General Family Medicine 03/02/1811/19/19 documented as of this encounter
--- OUTSIDE RECORDS SUMMARY | 2021-12-05 15:34 | XMS_ITS | Encounter Summary ---
:1945 Author Organization [facility] Address 330 [facility], [address] [place] [address] Care Team Providers Name Role Phone Lisa Sotelo MD Primary Care Provider Reason for Referral Rehab (Routine) - Closed Specialty Diagnoses / Procedures Referred By Contact Refer red To Contact Physical Therapy Diagnoses Lumbar facet arthropathy Nawaf Jason MD [address] [place] [address] Referral ID Status Reason Start Date Expiration Date Visits V isits Requested Authorized [id number] Closed Specialty 06/27/2017 06/27/2018 1 1 Services Required Reason for Visit Specialty (Routine) - Closed Specialty Diagnoses / Referred By Contact Referred To Contact Procedures Physical Medicine and Diagnoses MRI FOLLOW-UP Lisa Sotelo MD Mostoufi, Seyed A, Rehabilitation Procedures FOLLOW UP [facility] Parul [place] [address] [address] [place] [address] Fax: Referral ID Status Reason Start Date Expiration Date Visits Requ ested Visits Authorized [id number] Closed 06/06/2017 06/06/2018 3 3 Encounter Details Date Type Department Care Team Description 06/27/2017 Office Visit [place] Mostoufi, Nawaf A, Radiculop athy, lumbar region (Primary Dx); Physiatry, [facility] Lumbar facet arthropathy ([facility]); [facility] [address] [facility] It band syndrome, left; [place] [address] [place], [place] Lateral knee pain, left [phone] Social History Tobacco Use Types Packs/Day Years [...] from the original note were not included. [facility] [place] [facility]: [address] [facility] Spine Center: 92 [facility] Center: 800 [facility] T: [phone] F:[phone] [email or web address] Patient: Molly Rios : 1945 Date of [...] left Topical treatment Education and counseling : ([employer]) Education: in person education and counseling [...] of physical therapy is completed. Recent Imagin, [facility] Available Films as well as results [...] of the lumbar vertebrae are preserved. - Pourer Bull Ladle: PANKAJ Machine Joiner Cementer: [email or web address] Results for orders placed during the [...] canal stenosis. Bilateral disc protrusions result in [id number] right l2-3 and mild left neural foraminal [...] foramina and contact of the exiting right F6qtarj root. There is whgn-[id number] encroachment of the left neural foramina, but [...] flavum hypertrophy. Bilateral disc protrusions result in yopw-st-eejzeqmz right and mild left neural foraminal narrowing, [...] SYNDROME OARASPINAL MUSCLE ATROPHY Pt 8 VISITS [facility] PT, [employer] Standing Status: Future Standing [...] Visit Family Medicine Kevin Miranda MD [address] [place], [place] [address] (Wo rk) Scheduled Referrals Name Type Priority Associated Order Schedule Diagnoses Prescription to Outpatient Routine Lumbar facet 1 Occurrence s Physical Therapy Referral arthropathy starting ([facility]) until 8 documented as of this encounter Visit Diagnoses Diagnosis Radiculopathy, lumbar region - Primary Thoracic or lumbosacral neuritis or radi culitis, unspecified Lumbar facet arthropathy Spondylosis of unspecified site without mention of myelopathy It band syndrome, left Lateral knee pain, left documented in this encounter Care Teams Director Of Trauma Relationship Specialty Start Date End Date Lisa Sotelo MD PCP - General Family Medicine 08/19/16 03/01/[address] [place] [address] documented as of this encounter
--- OUTSIDE RECORDS SUMMARY | 2021-12-05 15:34 | XMS_ITS | Encounter Summary ---
:1945 Author Organization [facility] Address [address] [facility], [address] [place] [address] Care Team Providers Name Role Phone Laurie Elias NP Primary Care Provider Unavailable Reason for Referral Diagnostic Imaging (Routine) - Closed Specialty Diagnoses / Procedures Referred By Contact Refer red To Contact Radiology Diagnoses Diverticulitis Lower abdominal pain Laurie Elias NP Procedures CT Abdomen Pelvis with Contrast [address] [place] [address] Referral ID Status Reason Start Date Expiration Date Visits Requ ested Visits Authorized [id number] Closed 03/02/2018 03/02/2019 1 1 Reason for Visit Diagnostic Imaging (Routine) - Closed Specialty Diagnoses / Procedures Referred By Contact Refer red To Contact Radiology Diagnoses Diverticulitis Lower abdominal pain Laurie Elias NP Procedures CT Abdomen Pelvis with Contrast [address] [place] [address] Referral ID Status Reason Start Date Expiration Date Visits Requ ested Visits Authorized [id number] Closed 03/02/2018 03/02/2019 1 1 Encounter Details Date Type Department Care Team Description 03/03/2018 Hospital Encounter [facility] CT Letty Elias Scan STOCK HOUSE WORKER [address] [facility] [place] [address] Social History Tobacco Use Types Packs/Day [...] Office Visit Family Medicine Kevin Miranda MD [facility] [place], [place] [address] (Wo rk) documented as [...] ation. Dictated: 03/03/2018 10:05 PM Report ID: [id number] Report signed in external system at 03/03 22:05 Reported By: Andi Hartley M.D. (residehillary dorman) ([id number]) Signed By: Gt Ledezma M.D. (LAURA Betancur) Narrative 03/03/2018 10:05 PM EST RESPONSIBLE LINING BASTER: Gt Ledezma M.D. EXAMINATION: CT ABDOMEN PELVIS [...] might be different from the original. RESPONSIBLE LINING BASTER: Gt Ledezma M.D. EXAMINATION: CT ABDOMEN PELVIS [...] ation. Dictated: 03/03/2018 10:05 PM Report ID: [id number] Report signed in external system at 03/03 22:05 Reported By: Andi Hartley M.D. (pam dorman) ([id number]) Signed By: Gt Ledezma M.D. (LAURA Betancur) [...] dose documented in this encounter Care Teams Shower Attendant Relationship Specialty Start Date End Date Laurie Elias NP PCP - General Family Medicine 03/02/1811/19/19 documented as of this encounter
--- OUTSIDE RECORDS SUMMARY | 2021-12-05 15:34 | XMS_ITS | Encounter Summary ---
:1945 Author Organization [facility] Address [address] [facility], [address] [place] [address] Care Team Providers Name Role Phone Kevin Miranda MD Primary Care Provider Encounter Details Date Type Department Care Team Description 02/09/2018 Orders Only [facility] actice Provider, MD Harsh [address] [place] [address] [phone] Social History Tobacco Use Types Packs/Day Years [...] Visit Family Medicine Kevin Miranda MD [address] [place] [address] (Wo rk) documented as of this encounter Procedures Procedure Name Priority Date/Time Associated Diagnosis Comme nts MAMMOGRAPHY Routine 02/04/2018 documented in this encounter Results MAMMOGRAPHY (02/04/2018) Anatomical Region Laterality Modality Other Narrative This result has an attachment that is no t available. Historical Provider MD HEALTH MAINTENANCE documented in this encounter Visit Diagnoses Not on filedocumented in this encounter Care Teams Fiberglass Dowel Drawing Operator Relationship Specialty Start Date End Date Kevin Miranda MD PCP - General Family Medicine 11/20/19 [address] [place] [address] documented as of this encounter
--- OUTSIDE RECORDS SUMMARY | 2021-12-05 15:34 | XMS_ITS | Encounter Summary ---
:1945 Author Organization [facility] Address [address] [facility], [address] [place] [address] Care Team Providers Name Role Phone Kevin Miranda MD Primary Care Provider Reason for Referral Diagnostic Imaging (Routine) - Closed Specialty Diagnoses / Procedures Referred By Contact Refer red To Contact Diagnoses Right hip pain Right groin pain Yasmine Shaw MD Procedures X-ray Hip 2-3 Views Right (Pelvis Optional) [facility] [address] [facility], [place] [address] Referral ID Status Reason Start Date Expiration Date Visits Requ ested Visits Authorized [id number] Closed 07/22/2017 07/22/2018 1 1 Encounter Details Date Type Department Care Team Description 07/22/2017 Ancillary Orders [facility] Roxana Shaw MD Right hip pain; X-ray at 5 [facility] groin pain [address] [facility] [place], [place] [address] [facility], [address] [address] [phone] [place], [place] [address] (Wo rk) Social History [...] [facility] [place], [place] [address] (Wo rk) documented as [...] change. Dictated: 07/22/2017 10:45 AM Report ID: [id number] Report signed in external system at 07/22 10:45 Reported By: Wale Faustin M.D. (TAMICA P) Signed By: Wale Faustin M.D. (ROGP) Narrative 07/22/2017 10:45 AM EDT RESPONSIBLE AIRCRAFT DESIGN ENGINEER: Wale Faustin M.D. EXAMINATION: XR HIP 2-3 [...] might be different from the original. RESPONSIBLE AIRCRAFT DESIGN ENGINEER: Wale Faustin M.D. EXAMINATION: XR HIP 2-3 [...] change. Dictated: 07/22/2017 10:45 AM Report ID: [id number] Report signed in external system at 07/22 [...] quadrant documented in this encounter Care Teams Dial Marker Relationship Specialty Start Date End Date Kevin Miranda MD PCP - General Family Medicine 11/20/19 [facility] [place] [address] documented as of this encounter
--- OUTSIDE RECORDS SUMMARY | 2021-12-05 15:34 | XMS_ITS | Encounter Summary ---
:1945 Author Organization [facility] Address [address] [facility], [address] [place] [address] Care Team Providers Name Role Phone Laurie Elias EDUCATIONAL PSYCHOLOGY TEACHER Primary Care Provider Unavailable Encounter Details [...] Office Visit Family Medicine Kevin Miranda MD [address] [place] [address] (Wo rk) documented as of this encounter Visit Diagnoses Not on filedocumented in this encounter Care Teams Specifications Writer Relationship Specialty Start Date End Date Laurie Elias NP PCP - General Family Medicine 03/02/1811/19/19 documented as of this encounter
--- OUTSIDE RECORDS SUMMARY | 2021-12-05 15:34 | XMS_ITS | Encounter Summary ---
:1945 Author Organization [facility] Address [address] [facility], [address] [place] [address] Care Team Providers Name Role Phone Lisa [...] Kevin Miranda MD [facility] [place], [place] [address] (Wo rk) documented as of this encounter Visit Diagnoses Not on filedocumented in this encounter Care Teams Livestock Judging Coach Relationship Specialty Start Date End Date Lisa Sotelo MD PCP - General Family Medicine 08/19/16 03/01/[address] [place] [address] documented as of this encounter
--- OUTSIDE RECORDS SUMMARY | 2021-12-05 15:34 | XMS_ITS | Encounter Summary ---
:1945 Author Organization [facility] Address 330 [facility], [address] [place] [address] Care Team Providers Name Role Phone Lisa Sotelo MD Primary Care Provider Encounter Details Date Type Department Care Team Description 02/01/2017 Orders Only [facility] actice Provider, MD Harsh [address] [place] [address] [phone] Social History Tobacco Use Types Packs/Day Years [...] Visit Family Medicine Kevin Miranda MD [address] [place] [address] (Wo rk) documented as of [...] on filedocumented in this encounter Care Teams Lot Technician Relationship Specialty Start Date End Date Lisa Sotelo MD PCP - General Family Medicine 08/19/16 03/01/18 [address] [facility] [place] [address] documented as of this encounter
--- OUTSIDE RECORDS SUMMARY | 2021-12-05 15:34 | XMS_ITS | Encounter Summary ---
:1945 Author Organization [facility] Address 330 [facility], [address] [place] [address] Care Team Providers Name Role Phone Lisa Sotelo MD Primary Care Provider Encounter Details Date Type Department Care Team Description [facility] Bronw, ANN [address] [place] [address] Social History Tobacco Use Types Packs/Day Years [...] Visit Family Medicine Kevin Miranda MD [address] [place] [address] (Wo rk) documented as of this encounter Visit Diagnoses Not on filedocumented in this encounter Care Teams Checker Bakery Products Relationship Specialty Start Date End Date Lisa Sotelo MD PCP - General Family Medicine 08/19/16 03/01/[address] [place] [address] documented as of this encounter
--- OUTSIDE RECORDS SUMMARY | 2021-12-05 15:34 | XMS_ITS | Encounter Summary ---
:1945 Author Organization [facility] Address 330 [facility], [address] [place] [address] Care Team Providers Name Role Phone Lisa [...] Kevin Miranda MD [facility] [place], [place] [address] (Wo rk) documented as of this encounter Visit Diagnoses Not on filedocumented in this encounter Care Teams Member Service Specialist Relationship Specialty Start Date End Date Lisa Sotelo MD PCP - General Family Medicine 08/19/16 03/01/[address] [place] [address] documented as of this encounter
--- OUTSIDE RECORDS SUMMARY | 2021-12-05 15:34 | XMS_ITS | Encounter Summary ---
:1945 Author Organization [facility] Address [address] [facility], [address] [place] [address] Care Team Providers Name Role Phone Lisa Sotelo MD Primary Care Provider Encounter Details Date Type Department Care Team Description 06/06/2017 Orders Only [facility] Pr actice Lisa Sotelo MD [employer] [address] [address] [place] [address] [phone] (Wo rk) Social History Tobacco Use Types [...] Visit Family Medicine Kevin Miranda MD [address] [place] [address] (Wo rk) documented as of this encounter Visit Diagnoses Not on filedocumented in this encounter Care Teams Manufacturing Test Technician Relationship Specialty Start Date End Date Lisa Sotelo MD PCP - General Family Medicine 08/19/16 03/01/[address] [place] [address] documented as of this encounter
--- OUTSIDE RECORDS SUMMARY | 2021-12-05 15:34 | XMS_ITS | Encounter Summary ---
:1945 Author Organization [facility] Address [address] [facility], [address] [place] [address] Care Team Providers Name Role Phone Lisa Sotelo MD Primary Care Provider Encounter Details Date Type Department Care Team Description 11/10/2017 Scan Document - View [facility] Lisa Sotelo in [facility] Practice [address] [place] [address] [place] [address] Social History Tobacco Use Types Packs/Day Years [...] Visit Family Medicine Kevin Miranda MD [address] [place] [address] (Wo rk) documented as of this encounter Visit Diagnoses Not on filedocumented in this encounter Care Teams Dock Worker Relationship Specialty Start Date End Date Lisa Sotelo MD PCP - General Family Medicine 08/19/16 03/01/[address] [place] [address] documented as of this encounter
--- OUTSIDE RECORDS SUMMARY | 2021-12-05 15:34 | XMS_ITS | Encounter Summary ---
:1945 Author Organization [facility] Address 330 [facility], [address] [place] [address] Care Team Providers Name Role Phone Lisa Sotelo MD Primary Care Provider Encounter Details Date Type Department Care Team Description 07/07/2017 Refill [facility] actice Lisa Sotelo MD [facility] [address] [address] [place] [address] [phone] (Wo rk) Social History Tobacco Use Types [...] Visit Family Medicine Kevin Miranda MD [address] [place] [address] (Wo rk) documented as of this encounter Visit Diagnoses Not on filedocumented in this encounter Care Teams Rag Cutting Machine Tender Relationship Specialty Start Date End Date Lisa Sotelo MD PCP - General Family Medicine 08/19/16 03/01/[address] [place] [address] documented as of this encounter
--- OUTSIDE RECORDS SUMMARY | 2021-12-05 15:34 | XMS_ITS | Encounter Summary ---
:1945 Author Organization [facility] Address [address] [facility], [address] [place] [address] Care Team Providers Name Role Phone Laurie Elias TOOL GRINDING TECHNICIAN Primary Care Provider Unavailable Encounter Details Date Type Department Care Team Description 03/03/2018 Orders Only [facility] actLaurie Carr NP [facility] [place] [address] Social History Tobacco Use Types Packs/Day Years [...] Visit Family Medicine Kevin Miranda MD [address] [place], [place] [address] (Wo rk) documented as of this encounter Visit Diagnoses Not on filedocumented in this encounter Care Teams Filling And Packing Supervisor Relationship Specialty Start Date End Date Laurie Elias NP PCP - General Family Medicine 03/02/1811/19/19 documented as of this encounter
--- OUTSIDE RECORDS SUMMARY | 2021-12-05 15:34 | XMS_ITS | Encounter Summary ---
:1945 Author Organization [facility] Address 330 [facility], [address] [place] [address] Care Team Providers Name Role Phone Laurie Elias NP Primary Care Provider Unavailable Encounter Details Date Type Department Care Team Description 03/07/2018 Telephone [facility] Laurie Brown NP [address] [place], [place] [address] Social History Tobacco Use Types Packs/Day Years [...] Office Visit Family Medicine Kevin Miranda MD [facility] [place], [place] [address] (Wo rk) documented as of this encounter Visit Diagnoses Not on filedocumented in this encounter Care Teams Claims Assistant Relationship Specialty Start Date End Date Laurie Elias NP PCP - General Family Medicine 03/02/1811/19/19 documented as of this encounter
--- OUTSIDE RECORDS SUMMARY | 2021-12-05 15:34 | XMS_ITS | Encounter Summary ---
:1945 Author Organization [facility] Address [address] [facility], [address] [place] [address] Care Team Providers Name Role Phone Lisa [...] Office Visit Family Medicine Kevin Miranda MD [facility] [place], [place] [address] (Wo rk) documented as of this encounter Visit Diagnoses Not on filedocumented in this encounter Care Teams Proof Sorter Relationship Specialty Start Date End Date Lisa Sotelo MD PCP - General Family Medicine 08/19/16 03/01/[address] [place] [address] documented as of this encounter
--- OUTSIDE RECORDS SUMMARY | 2021-12-05 15:34 | XMS_ITS | Encounter Summary ---
:1945 [address] [facility] Address [address] [facility], [address] [place] [address] Care Team Providers Name Role Phone Lisa Sotelo MD Primary Care Provider Encounter Details Date Type Department Care Team Description 06/17/2017 Scan Document - View [facility] Lisa Sotelo, in Chart Practice [address] [place], [place] [address] [place], [place] [phone] Social History Tobacco Use Types Packs/Day Years [...] Visit Family Medicine Kevin Miranda MD [address] [place] [address] (Wo rk) documented as of this encounter Visit Diagnoses Not on filedocumented in this encounter Care Teams Leveler Helper Relationship Specialty Start Date End Date Lisa Sotelo MD PCP - General Family Medicine 08/19/16 03/01/[address] [place] [address] documented as of this encounter
--- OUTSIDE RECORDS SUMMARY | 2021-12-05 15:34 | XMS_ITS | Encounter Summary ---
:1945 Author Organization [facility] Address 330 [facility], [address] [place] [address] Care Team Providers Name Role Phone Lisa Sotelo MD Primary Care Provider Reason for Visit Reason Comments Rash on face Encounter Details Date Type Department Care Team Description 01/17/2017 Office Visit Kaushik William Dermatitis of face Practice ANN Krishnamurthy (Primary Dx) [address] [place] [address] [place] [address] [place], [place] [phone] [address] Social History Tobacco Use Types Packs/Day Years [...] but she has an appointment with her advertiser later today and will discuss further with her. No lab work needed at our appointment. Follow up prn. Yessy William NP documented in this encounter Plan of Treatment Upcoming Encounters Date Type Specialty Care Team Description 04/19/2022 Office Visit Family Medicine Kevin Miranda MD [address] [place] [address] (Wo rk) documented as of this encounter Visit Diagnoses Diagnosis Dermatitis of face - Primary documented in this encounter Care Teams Wagon Winder Relationship Specialty Start Date End Date Lisa Sotelo MD PCP - General Family Medicine 08/19/16 03/01/18 1020 [place] [address] documented as of this encounter
--- OUTSIDE RECORDS SUMMARY | 2021-12-05 15:34 | XMS_ITS | Encounter Summary ---
:1945 Author Organization [facility] Address 330 [facility], [address] [place] [address] Care Team Providers Name Role Phone Lisa Sotelo MD Primary Care Provider Reason for Visit Reason Comments Sinusitis fever 101 last night Encounter Details Date Type Department Care Team Description 12/26/2017 [facility] Lisa Sotelo Diverti culitis (Primary Practice MD Dx) [address] [place] [address] [place] [address] [place], [place] [phone] Social History Tobacco Use Types Packs/Day Years [...] Visit Family Medicine Kevin Miranda MD [address] [place], [place] [address] (Wo rk) Scheduled Orders [...] Differential and Platelets) (12/26/2017 3:56 PM EST) [facility] gist Method Time Signature White Blood 13.0 (H) 3.8 - [facility] Count 10.8 Diagnostics Thousand/ [place] [facility] Red Blood Count 4.18 3.80 - [facility] 5.10 Diagnostics Million/u [place] [facility] Hemoglobin 13.2 11.7 - [facility] 15.5 g/dL [facility] [place] [facility] Hematocrit 37.9 35.0 - [facility] 45.0 % [facility] [place] [facility] MCV 90.7 80.0 - [facility] 100.0 fL [facility] [place] [facility] MCH 31.6 27.0 - [facility] 33.0 pg [facility] [place] [facility] MCHC 34.8 32.0 - [facility] 36.0 g/dL [facility] MRDW 12.7 11.0 - [facility] 15.0 % [facility] [place] [facility] Platelet count 325 140 - 400 [facility] Thousand/ [facility] [place] [facility] MPV 10.5 7.5 - [facility] 12.5 fL [facility] [place] [facility] Absolute 10,127 1,500 - [facility] Neutrophil (H) 7,800 Diagnostics Count cells/uL [place] [facility] Lymphosytes 1,404 850 - [facility] absolute 3,900 Diagnostics cells/uL [place] [facility] Absolute 1,404 (H) 200 - 950 [facility] Monocyte count cells/uL [facility] [place] [facility] Absolute 26 15 - 500 [facility] Eosinophil cells/uL Diagnostics count [place] [facility] Lymphocyte 39 0 - 200 [facility] cells/uL [facility] [place] [facility] Neutrophils 77.9 % [facility] Lymphocyte 10.8 % [facility] Monocytes 10.8 % [facility] Eosinophil 0.2 % [facility] Basophil 0.3 % [facility] Specimen Anatomical Collection Method Collection Time Receive d Time (Source) Location / / Volume Laterality 12/26/2017 3:56 PM 8 3:56 EST PM EST Lisa Sotelo MD LAB BLOOD ORDERABLES Performing Organization Address City/State/ZIP Code Phon e Number [employer] [address] [phone] [place] [address] B [place] [address] [place] [address] [address] [phone] Diagnost (ABNORMAL) Basic metabolic panel (12/26/2017 3:56 PM EST) athologist Signature Glucose 104 (H) 65 - 99 Medicine in Practice Diagnostics mg/dL [place] [facility] Comment: ? Fasting reference interv al For someone without known diabetes, a gl ucose value between 100 and 125 mg/dL is consistent with prediabetes and should be confirmed with a follow-up test. Bun 9 7 - 25 mg/dL [place] [facility] Creatinine, Ser 0.67 0.60 - 0.93 mg/dL [facility] [place] [facility] Comment: For patients >49 years of age, the refer ence limit for Creatinine is approximately 13% high er for people identified as -Gibraltarian. eGFR NON-AFR. 89 > OR = 60 mL/min/1.73m2 Qu est Diagnostics [facility] eGFR 103 > OR = 60 mL/min/1.73m2 Que st Diagnostics [facility] BUN/Creatinine NOT APPLICABLE 6 - 22 (calc) [facility] [place] [facility] Sodium 137 135 - 146 mmol/L [facility] [place] [facility] Potassium 4.0 3.5 - 5.3 mmol/L [facility] [place] [facility] Chloride 98 98 - 110 mmol/L [facility] [place] [facility] CO2 29 20 - 32 mmol/L [facility] Calcium 9.2 8.6 - 10.4 mg/dL [facility] [place] [facility] Specimen Anatomical Collection Method Collection Time Receive d Time (Source) Location / / Volume Laterality Blood Venous blood / 12/26/2017 3:56 PM 018 3:56 Unknown EST PM EST Lisa Sotelo MD LAB BLOOD ORDERABLES Performing Organization Address City/State/ZIP Code Phon e Number [employer] [address] [phone] [place] [address], [address] [place] [address] [place] [address] [place] [phone] Diagnost documented in this encounter Visit Diagnoses Diagnosis Diverticulitis - Primary Diverticulitis of colon (without mention of hemorrhage) documented in this encounter Care Teams Stitch Bonder Machine Operator Helper Relationship Specialty Start Date End Date Lisa Sotelo MD PCP - General Family Medicine 08/19/16 03/01/[address] [place] [address] documented as of this encounter
--- OUTSIDE RECORDS SUMMARY | 2021-12-05 15:34 | XMS_ITS | Encounter Summary ---
:1945 Author Organization [facility] Address 330 [facility], [address] [place] [address] Care Team Providers Name Role Phone JadaHeather velasquezecca ANN Primary Care Provider Unavailable Encounter Details Date Type Department Care Team Description 03/07/2018 Telephone [facility] zurita MD [facility] [address] [facility], [address], [facility] [address] [place], [place] [address] [place] [address] [phone] (Wo rk) Social History Tobacco Use Types [...] Visit Family Medicine Kevin Miranda MD [address] [facility] [place] [address] (Wo rk) documented as of this encounter Visit Diagnoses Not on filedocumented in this encounter Care Teams Sales Representative Facility Services Relationship Specialty Start Date End Date Laurie Elias NP PCP - General Family Medicine 03/02/1811/19/19 documented as of this encounter
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
--- OUTSIDE RECORDS SUMMARY | 2021-12-05 15:35 | XMS_ITS ---
[...] knee 03/10/2015 MRI, Shoulder [facility] [address] [address] (Work Place) 03/18/2015 Bone Density Study Information not avai lable 04/24/2015 MRI, Shoulder [facility] [address] [place] [address] (Work Place) Results Lab Results [...]
--- OUTSIDE RECORDS SUMMARY | 2021-12-05 15:35 | XMS_ITS | Encounter Summary ---
:1945 Author Organization [facility] Address [address] [facility], [address] [place] [address] Care Team Providers Name Role Phone Lisa Sotelo MD Primary Care Provider Encounter Details Date Type Department Care Team Description 10/11/2016 Scan Document - View [facility] Lisa Sotelo, in Chart Practice [address] [place] [address] [place], [place] [phone] Social History Tobacco Use Types Packs/Day Years Used Date Former Smoker Sex Assigned at Date Recorded Female 04/12/2019 2:19 PM EST documented as of this encounter Plan of Treatment Upcoming Encounters Date Type Specialty Care Team Description 04/19/2022 Office Visit Family Medicine Kevin Miranda MD [address] [place] [address] (Wo rk) documented as of this encounter Visit Diagnoses Not on filedocumented in this encounter Care Teams Business Support Associate Relationship Specialty Start Date End Date Lisa Sotelo MD PCP - General Family Medicine 08/19/16 03/01/[address] [place] [address] documented as of this encounter
--- OUTSIDE RECORDS SUMMARY | 2021-12-05 15:35 | XMS_ITS | Encounter Summary ---
:1945 Author Organization [facility] Address [address] [facility], [id number] [place] [address] Care Team Providers Name Role Phone Lisa Sotelo MD Primary Care Provider Reason for Visit Reason Comments Abdominal Pain Encounter Details Date Type Department Care Team Description 08/28/2016 Emergency [place] [facility] Alphonso Badillo MD Department [address] [place] [address], [place] [address] [place] [address] [phone] Social History Tobacco Use Types Packs/Day Years [...] evaluated and treated primarily by the Physician Trimmer Operator (PA). The supervising Attending Physician did see [...] right for you. Copyright Copyright ?? 2016 [employer]. and its affiliates and/or licensors. All rights [...] post ORIF of the left clavicle fracture [facility]. She is Dilaudid for the first [...] 2016, 1:30 PM Alphonso Morton MD 08/28/16 0914 Alphonso Morton MD - 08/28/2016 1:04 PM EDT I have reviewed the patient's clinical presentation, history, and examination. In addition, I have interviewed and examined the patient. I agree with the PA's history and exam except as noted. I supervised the decision making process, including orders and disposition. MD Alphonso Rosa MD 08/28/16 5116 Helen Duenas RN - 08/28/2016 1:03 PM EDT Instructions reviewed with patient. Follow up appointment reviewed with patient. Prescription reviewed with patient. Patient verbalized understanding. IV removed. on the way to pick patient up and drive patient home. Helen Duenas RN 08/28/16 1304 Helen Dueans RN - 08/28/2016 11:31 AM EDT Patient [...] clavicle on 08/24/[address] Levy at [facility]. She states that this surgery was without [...] interpretation. Dictated: 08/28/2016 11:59 AM Report ID: [id number] Report signed in external system at 08/28/2016 [...] following orders were created for panel order Romulus draw. Procedure Abnormality Status --------- ------ Gold Top[[id number]] Gold Top[[id number]] Light Blue Top[[id number]] Final result Lavender Top[[id number]] Red Top[[id number]] Please view results for these tests on [...] reach the coverage for patient's surgeon at [facility]. I spoke with this individual who states [...] home. Continue MiraLAX. Dulcolax suppository once daily. [id number] analgesia for pain, avoid opioid medications to [...] Office Visit Family Medicine Kevin Miranda MD [facility] [place], [place] [address] (Wo rk) documented as [...] (08/28/2016 11:35 AM EDT) Analysis Performed At [facility] Time Signature URINE No 08/28/2016 [facility] SEDIMENTATION 12:27 PM HOSPITAL REQUIRED? EDT LABORATORY Color Light 08/28/2016 [facility] Yellow 12:27 PM HOSPITAL EDT LABORATORY SG 1.002 1.002 - 08/28/2016 [facility] 1.030 12:27 PM HOSPITAL EDT LABORATORY pH, Urine 7.0 5.0 - 8.0 08/28/2016 [facility] 12:27 PM HOSPITAL EDT LABORATORY Albumin Negative 08/28/2016 [facility] 12:27 PM HOSPITAL EDT LABORATORY Glucose Negative Negative 08/28/2016 [facility] 12:27 PM HOSPITAL EDT LABORATORY Ketones Negative Negative 08/28/2016 [facility] 12:27 PM HOSPITAL EDT LABORATORY Blood Negative Negative 08/28/2016 [facility] 12:27 PM HOSPITAL EDT LABORATORY Nitrite Negative Negative 08/28/2016 [facility] 12:27 PM HOSPITAL EDT LABORATORY Hyaline Casts 0 - 5 /LPF LAB 08/28/2016 [facility] URINALYSIS - 12:27 PM HOSPITAL AUTOMATED EDT LABORATORY METHOD Granular Casts 0 - 2 /LP[facility] LAB 08/28/2016 [facility] URINALYSIS - 12:27 PM HOSPITAL AUTOMATED EDT LABORATORY METHOD WBC CASTS None Seen LAB 08/28/2016 [facility] /[facility] URINALYSIS - 12:27 PM HOSPITAL AUTOMATED EDT LABORATORY METHOD RBC Casts None Seen LAB 08/28/2016 [facility] /[facility] URINALYSIS - 12:27 PM HOSPITAL AUTOMATED EDT LABORATORY METHOD Waxy Casts, None Seen LAB 08/28/2016 [facility] Urine /[facility] URINALYSIS - 12:27 PM HOSPITAL AUTOMATED EDT LABORATORY METHOD Fatty Casts None Seen LAB 08/28/2016 [facility] /[facility] URINALYSIS - 12:27 PM HOSPITAL AUTOMATED EDT LABORATORY METHOD WBC Clumps None Seen LAB 08/28/2016 [facility] /[facility]PF URINALYSIS - 12:27 PM HOSPITAL AUTOMATED EDT LABORATORY METHOD EPITH CELLS 0 - 5 /HPF LAB 08/28/2016 [facility] URINALYSIS - 12:27 PM HOSPITAL AUTOMATED EDT LABORATORY METHOD Renal Cells None Seen LAB 08/28/2016 [facility] /[facility] URINALYSIS - 12:27 PM HOSPITAL AUTOMATED EDT LABORATORY METHOD Amorphous None Seen LAB 08/28/2016 [facility] /[facility] URINALYSIS - 12:27 PM HOSPITAL AUTOMATED EDT LABORATORY METHOD Uric Acid None Seen LAB 08/28/2016 [facility] /[facility] URINALYSIS - 12:27 PM HOSPITAL AUTOMATED EDT LABORATORY METHOD Calcium Oxalate None Seen LAB 08/28/2016 [facility] Crystals /HPF URINALYSIS - 12:27 PM HOSPITAL AUTOMATED EDT LABORATORY METHOD Triple Phosphate None Seen LAB 08/28/2016 [facility] Crystals /HPF URINALYSIS - 12:27 PM HOSPITAL AUTOMATED EDT LABORATORY METHOD Calcium None Seen LAB 08/28/2016 [facility] Carbonate /[facility] URINALYSIS - 12:27 PM HOSPITAL Crystals AUTOMATED EDT LABORATORY METHOD Calcium None Seen LAB 08/28/2016 [facility] Phosphate /[facility] URINALYSIS - 12:27 PM HOSPITAL Crystals AUTOMATED EDT LABORATORY METHOD Cystine None Seen LAB 08/28/2016 [facility] URINALYSIS - 12:27 PM HOSPITAL AUTOMATED EDT LABORATORY METHOD Leucine None Seen LAB 08/28/2016 [facility] /[facility] URINALYSIS - 12:27 PM HOSPITAL AUTOMATED EDT LABORATORY METHOD Tyrosine None Seen LAB 08/28/2016 [facility] /[facility] URINALYSIS - 12:27 PM HOSPITAL AUTOMATED EDT LABORATORY METHOD Mucous None Seen LAB 08/28/2016 [facility] /[facility] URINALYSIS - 12:27 PM HOSPITAL AUTOMATED EDT LABORATORY METHOD Yeast Budding None Seen LAB 08/28/2016 [facility] /[facility] URINALYSIS - 12:27 PM HOSPITAL AUTOMATED EDT LABORATORY METHOD Yeast Hyphae None Seen LAB 08/28/2016 [facility] /[facility] URINALYSIS - 12:27 PM HOSPITAL AUTOMATED EDT LABORATORY METHOD Trichomonas None Seen LAB 08/28/2016 [facility] /[facility] URINALYSIS - 12:27 PM HOSPITAL AUTOMATED EDT LABORATORY METHOD WBC esterase Negative 08/28/2016 [facility] 12:27 PM HOSPITAL EDT LABORATORY TURBIDITY Clear CLEAR 08/28/2016 [facility] 12:27 PM HOSPITAL EDT LABORATORY WBC 0 - 5 /HPF LAB 08/28/2016 [facility] URINALYSIS - 12:27 PM HOSPITAL AUTOMATED EDT LABORATORY METHOD RBC 0 - 5 /HPF LAB 08/28/2016 [facility] URINALYSIS - 12:27 PM HOSPITAL AUTOMATED EDT LABORATORY METHOD Unidentified None Seen LAB 08/28/2016 [facility] Crystals URINALYSIS - 12:27 PM HOSPITAL AUTOMATED EDT LABORATORY METHOD Bile Negative 08/28/2016 [facility] 12:27 PM HOSPITAL EDT LABORATORY Specimen Anatomical Collection Method Collection Time Receive d Time (Source) Location / / Volume Laterality Urine Urine specimen Non-blood 08/28/2016 11:35 7 collection, clean Collection / AM EDT 11:39 AM E DT catch / Unknown Unknown Alphonso Morton MD LAB URINE ORDERABLES Performing Organization Address City/State/ZIP Code Phon e Number [facility] [address] [place] [address] LABORATORY X-ray Chest 2 Views [...] ation. Dictated: 08/28/2016 11:59 AM Report ID: [id number] Report signed in external system at 08/28 11:59 Reported By: Jeremiah Trevzio M.D. (resi dent) - PROVIDER ID: BHANU (BHANU) Signed By: Joshua Arora M.D. - PRO VIDER ID: [email or web address] ([email or web address]) Narrative 08/28/2016 11:59 AM EDT RESPONSIBLE MID LEVEL JAVA DEVELOPER: Joshua Arora M.D. - PROVIDER ID: G [...] might be different from the original. RESPONSIBLE MID LEVEL JAVA DEVELOPER: Joshua Arora M.D. - PROVIDER ID: G [...] ation. Dictated: 08/28/2016 11:59 AM Report ID: [id number] Report signed in external system at 08/28 [...] Organization Address City/State/ZIP Code Phon e Number [address] [address] LABORATORY hCG, serum, qualitative (08/28/2016 10:47 AM EDT) Analysis Performed At Patho logist Time Signature HCG SERUM QUAL Negative Negative 08/28/2016 [facility] 11:42 AM EDT [facility] LABORATORY Specimen Anatomical Collection Method / Collection Time Recei nancy Time (Source) Location / Volume Laterality Blood Venous blood / Venipuncture / 08/28/2016 10:47 017 Unknown Unknown AM EDT 10:57 AM EDT Alphonso Morton MD LAB BLOOD ORDERABLES Performing Organization Address City/State/ZIP Code Phon e Number [facility] [address] [place] [address] LABORATORY (ABNORMAL) CBC auto differential (08/28/2016 10:47 AM EDT) [facility] Method Time Signature WBC 16.49 (H) 4.0 - 08/28/2016 [facility] 10.8 11:13 AM [facility] 10*3/uL LABORATORY nRBC 0 0 - 0 08/28/2016 [facility] /100 WBCs 11:13 AM [facility] LABORATORY RBC 3.90 (L) 4.20 - 08/28/2016 [facility] 5.40 11:13 AM [facility] 10*6/uL LABORATORY HGB 12.3 12.0 - 08/28/2016 [facility] 16.0 g/dL 11:13 AM [facility] LABORATORY HCT 36.3 35.0 - 08/28/2016 [facility] 48.0 % 11:13 AM [facility] LABORATORY MCV 93.1 81.0 - 08/28/2016 [facility] 99.0 fL 11:13 AM [facility] LABORATORY MCH 31.5 26.0 - 08/28/2016 [facility] 33.0 pg 11:13 AM [facility] LABORATORY MCHC 33.9 32.0 - 08/28/2016 [facility] 36.0 g/dL 11:13 AM [facility] LABORATORY PLT 337 150 - 350 08/28/2016 [facility] 10*3u/L 11:13 AM [facility] LABORATORY RDW-CV 14.2 11.5 - 08/28/2016 [facility] 14.5 % 11:13 AM [facility] LABORATORY Segmented % 83.1 30.0 - 08/28/2016 [facility] 85.0 % 11:13 AM [facility] LABORATORY ABS Neutrophil 13.72 (H) 1.5 - 6.5 08/28/2016 [facility] 10*3/uL 11:13 AM [facility] LABORATORY Lymphocytes % 7.0 (L) 15.0 - 08/28/2016 [facility] 50.0 % 11:13 AM [facility] LABORATORY ABS Lymphocyte 1.15 1.0 - 3.7 08/28/2016 [facility] 10*3u/L 11:13 AM EDT HOSPITAL LABORATORY Monocytes % 8.7 0.0 - 08/28/2016 [facility] 10.0 % 11:13 AM EDT HOSPITAL LABORATORY Eosinophils % 0.5 % 08/28/2016 [facility] 11:13 AM EDT HOSPITAL LABORATORY Basophil % 0.4 0.0 - 2.0 08/28/2016 [facility] % 11:13 AM EDT HOSPITAL LABORATORY IMM GRAN 0.3 0.0 - 1.0 08/28/2016 [facility] % 11:13 AM EDT HOSPITAL LABORATORY Specimen Anatomical Collection Method / Collection Time Recei nancy Time (Source) Location / Volume Laterality Blood Venous blood / Venipuncture / 08/28/2016 10:47 017 Unknown Unknown AM EDT 10:54 AM EDT Alphonso Mroton MD LAB BLOOD ORDERABLES Performing Organization Address City/[facility]/ZIP [facility] Phon e Number [place] [address] LABORATORY Lactic acid, plasma (08/28/2016 10:46 AM EDT) P athologist Signature LACTATE 1.3 0.7 - 2.1 08/28/2016 [facility] mmol/L 11:37 AM EDT HOSPITAL LABORATORY Specimen Anatomical Collection Method / Collection Time Recei nancy Time (Source) Location / Volume Laterality Blood Venous blood / Venipuncture / 08/28/2016 10:46 017 Unknown Unknown AM EDT 10:54 AM EDT Alphonso Morton MD LAB BLOOD ORDERABLES Performing Organization Address City/[facility] Phon e Number [address] [address] LABORATORY documented in this encounter Visit Diagnoses Diagnosis Elevated temperature - Primary Fever, unspecified Constipation, unspecified constipation t ype documented in this encounter Care Teams Honey Blender Relationship Specialty Start Date End Date Lisa Sotelo MD PCP - General Family Medicine 08/19/16 03/01/18 [address] [place] [address] documented as of this encounter
--- OUTSIDE RECORDS SUMMARY | 2021-12-05 15:35 | XMS_ITS | Encounter Summary ---
:1945 Author Organization [facility] Address [address] [facility], [address] [place] [address] Care Team Providers Name Role Phone Lisa Sotelo MD Primary Care Provider Encounter Details Date Type Department Care Team Description 09/20/2016 Abstract [facility] trista William, Plantar fasciitis; [address] [place] [address] ANN Krishnamurthy Osteoporosis; [place] [address] [place] [address] Oral candidiasis [phone] [place] [address] (Wo rk) Social History Tobacco Use Types Packs/Day Years Used Date Former Smoker Sex Assigned at Date Recorded Female 04/12/2019 2:19 PM EST documented as of this encounter Plan of Treatment Upcoming Encounters Date Type Specialty Care Team Description 04/19/2022 Office Visit Family Medicine Kevin Miranda MD [address] [place], [place] [address] (Wo rk) documented as of this encounter Visit Diagnoses Diagnosis Plantar fasciitis Plantar fascial fibromatosis Osteoporosis Unspecified osteoporosis Oral candidiasis Candidiasis of mouth documented in this encounter Care Teams Radiographer Technologist Relationship Specialty Start Date End Date Lisa Sotelo MD PCP - General Family Medicine 08/19/16 03/01/18 [address] [place] [address] documented as of this encounter
--- OUTSIDE RECORDS SUMMARY | 2021-12-05 15:35 | XMS_ITS | Encounter Summary ---
:1945 Author Organization [facility] Address [address] [facility], [address] [place] [address] Care Team Providers Name Role Phone Lisa Sotelo MD Primary Care Provider Encounter Details Date Type Department Care Team Description 09/21/2016 Office Visit Kaushik [place], Left hip p ain (Primary Practice ANN Krishnamurthy Dx) [address] [place] [address] [place] [address] [place], [place] [phone] Social History Tobacco Use Types Packs/Day Years [...] had surgery with Dr. Cristo Levy at [facility] [place]/16, which went well, and she [...] Visit Family Medicine Kevin Miranda MD [address] [place] [address] (Wo rk) documented as of this encounter Visit Diagnoses Diagnosis Left hip pain - Primary Pain in joint, pelvic region and thigh documented in this encounter Care Teams Glory Hole Tender Relationship Specialty Start Date End Date Lisa Sotelo MD PCP - General Family Medicine 08/19/16 03/01/18 [address] [place] [address] documented as of this encounter
--- OUTSIDE RECORDS SUMMARY | 2021-12-05 15:35 | XMS_ITS | Encounter Summary ---
:1945 Author Organization [facility] Address [address] [facility], [address] [place] [address] Care Team Providers Name Role Phone Lisa Sotelo MD Primary Care Provider Encounter Details Date Type Department Care Team Description 12/02/2003 Orders Only [facility] Hieu Trevizo MD [address] [place] [address] Social History Tobacco Use Types Packs/Day Years Used Date Never Assessed Sex Assigned at Date Recorded Female 04/12/2019 2:19 PM EST documented as of this encounter Plan of Treatment Upcoming Encounters Date Type Specialty Care Team Description 04/19/2022 Office Visit Family Medicine Kevin Miranda MD [address] [place] [address] (Wo rk) Scheduled Orders Name Type Priority Associated Diagnoses Order S chedule DEXA Bone Density Central Imaging Routine Or dered: 12/02/2003 documented as of this encounter Visit Diagnoses Not on filedocumented in this encounter Care Teams Slot Shift Manager Relationship Specialty Start Date End Date Lisa Sotelo MD PCP - General Family Medicine 08/19/16 03/01/[address] [place] [address] documented as of this encounter
--- OUTSIDE RECORDS SUMMARY | 2021-12-05 15:35 | XMS_ITS | Encounter Summary ---
:1945 Author Organization [facility] Address [address] [facility], [address] [place] [address] Care Team Providers Name Role Phone Laurie Elais AUTOMATIC PINSETTER MECHANIC Primary Care Provider Unavailable Encounter Details Date Type Department Care Team Description 04/13/1999 Orders Only [facility] Hieu Trevizo MD [address] [facility] [place] [address] Social History Tobacco Use Types Packs/Day Years Used Date Never Assessed Sex Assigned at Date Recorded Female 04/12/2019 2:19 PM EST documented as of this encounter Plan of Treatment Upcoming Encounters Date Type Specialty Care Team Description 04/19/2022 Office Visit Family Medicine Kevin Miranda MD [address] [place], [place] [address] (Wo rk) Scheduled Orders Name Type Priority Associated Diagnoses Order S chedule DEXA Bone Density Central Imaging Routine Or dered: 04/13/1999 documented as of this encounter Visit Diagnoses Not on filedocumented in this encounter Care Teams Correspondence School Teacher Relationship Specialty Start Date End Date Laurei Elias NP PCP - General Family Medicine 03/02/1811/19/19 documented as of this encounter
--- OUTSIDE RECORDS SUMMARY | 2021-12-05 15:35 | XMS_ITS ---
:1945 Author Care Team Providers Name Role Phone DR. ELBA MARIANO Primary Care Provider [phone] DR. ELBA MARIANO Referring Provider [phone] Allergies Code Code System Name Reaction Severity Status Onset Opioids - Morphine Analogues ? ? A ctive ? 32912 RxNorm Percocet ? ? Active ? Medications [...] topical cream Completed ? 1 03/07/2016 Fluvirin [id number] 45 mcg (15 mcg x 3)/0.5 mL [...]
--- OUTSIDE RECORDS SUMMARY | 2021-12-05 15:35 | XMS_ITS ---
:1945 Author Care Team Providers Name Role Phone DR. MARILUZ VELEZ Primary Care Provider [phone] MARILUZ VELEZ Referring Provider [phone] Allergies Code Code System Name Reaction Severity [...] None recorded. ? ? Vitals 02/06/2019 10:45AM OP/FINANCE EXECUTIVE Height Weight BMI 5 ft 7.5 in 130 lbs 20.1 kg/m2 12/25/2018 01:45PM FINANCE EXECUTIVE 15 Height Weight BMI 5 ft 7.5 in 128 lbs 19.8 kg/m2
--- OUTSIDE RECORDS SUMMARY | 2021-12-05 15:35 | XMS_ITS | Encounter Summary ---
:1945 Author Organization [facility] Address [address] [facility], [address] [place] [address] Care Team Providers Name Role Phone Lisa Sotelo MD Primary Care Provider Encounter Details Date Type Department Care Team Description [facility]2016 [facility] Olivera MD [address] [place] [address], [address] [place] [address] [address] [facility] Ana M Bowen, [place] [address] Social History Tobacco Use Types Packs/Day Years Used Date Former Smoker Sex Assigned at Date Recorded Female 04/12/2019 2:19 PM EST documented as of this encounter Plan of Treatment Upcoming Encounters Date Type Specialty Care Team Description 04/19/2022 Office Visit Family Medicine Kevin Miranda MD [address] [place] [address] (Wo rk) documented as of this encounter Visit Diagnoses Not on filedocumented in this encounter Care Teams Print Producer Relationship Specialty Start Date End Date Lisa Sotelo MD PCP - General Family Medicine 08/19/16 03/01/[address] [place] [address] documented as of this encounter
--- OUTSIDE RECORDS SUMMARY | 2021-12-05 15:35 | XMS_ITS | Encounter Summary ---
:1945 Author Organization [facility] Address [address], [address] [place] [address] Care Team Providers Name Role Phone Lisa Sotelo MD Primary Care Provider Encounter Details Date Type Department Care Team Description 11/19/2016 Refill [facility] Pr Princess Doran NP [address] [address] [place] [address] [phone] Social History Tobacco Use Types Packs/Day Years [...] Visit Family Medicine Kevin Miranda MD [address] [place], [place] [address] (Wo rk) documented as of this encounter Visit Diagnoses Not on filedocumented in this encounter Care Teams [employer] Relationship Specialty Start Date End Date Lisa Sotelo MD PCP - General Family Medicine 08/19/16 03/01/18 [address] [place] [address] documented as of this encounter
[2021-12-05 15:42] VITALS: BP 112/65; PULSE 85; RESP 18; TEMP 37.2; O2SAT 97
[2021-12-05 15:56] LABS: Bilirubin Negative (Negative); Blood Large (Negative); Clarity Cloudy (Clear); Glucose Negative (Negative); Ketones Negative (Negative); Leukocyte Esterase Large (Negative); Nitrite Negative (Negative); Specific Gravity 1.015 (1.005-1.025); Urobilinogen 0.2 EU/dL (Up TO 0.2); pH 6.5 (5-8)
[2021-12-05 16:08] LABS: Bacteria Moderate HPF (Negative); Epithelial Cells Few HPF (Negative); WBC >50 HPF (0-5)
[2021-12-05 16:09] LABS: C & S Indicated? Yes; Casts 0-2 Hyaline LPF (Negative); Crystals Negative HPF (Negative); Mucus Negative (Negative)
[2021-12-05 16:31] LABS: Abs Immature Grans 0.04 10^3/uL (0.0-0.06); Absolute Eosinophil Count 0.09 10^3/uL (0.0-0.7); Absolute Lymphocyte Count 1.76 10^3/uL (1.2-3.4); Basophils % 0.5; Eosinophils % 0.7; HCT 38.9 % (36.0-46.0); HGB 13.2 g/dL (11.2-15.7); Immature Grans % 0.3; Lymphocytes % 13.2; MCH 30.8 pg (27.0-33.0); MCHC 33.9 % (32.0-36.0); MCV 91 fL (80-95); MPV 8.8 fL (8.0-11.0); Monocytes % 9.8; Neutrophils % 75.5; Platelet Count 373 10^3/uL (130-400); RBC 4.29 10^6/uL (3.93-5.22); RDW 13.7 % (11.7-14.6); RDW-SD 45.2 fL; WBC 13.33 10^3/uL (4.4-10.8)
[2021-12-05 16:36] LABS: Absolute Basophil Count 0.07 10^3/uL (0.0-0.2); Absolute Monocyte Count 1.31 10^3/uL (0.1-0.8); Absolute Neutrophil Count 10.06 10^3/uL (1.2-6.7)
[2021-12-05 16:55] LABS: ALT 24 U/L (14-59); AST 24 U/L (15-37); Albumin 3.8 g/dL (3.4-5.0); Alkaline Phosphatase 97 U/L (46-116); Anion Gap 8.8 mmol/L (3-11); BUN 11 mg/dL (7-18); Bilirubin, Total 0.4 mg/dL (0.2-1.0); CO2 27.2 mmol/L (21.0-32.0); CREATININE 0.8 mg/dL (0.55-1.02); Calcium 9.4 mg/dL (8.5-10.1); Chloride 98 mmol/L (98-107); Estimated GFR 77.27 (mL/min/1.73m2); Glucose 95 mg/dL (74-106); Sodium 134 mmol/L (136-145); Total Protein 7.7 g/dL (6.4-8.2)
--- NOTE | 2021-12-05 17:11 | ED.GENADUL_ITS ---
Discharge Plan Disposition Patient Disposition: HOME Condition: Stable Discharge Details Clinical Impression: UTI (urinary tract infection) Primary Care Provider: Estee Diaz ED Provider: Kimi Martinez Home Meds and New Rx's Prescriptions: New ciprofloxacin HCl [Cipro] 500 mg tablet 500 mg PO BID 7 Days Qty: 14 0RF Continued ibuprofen 600 MG tablet 600 mg PO TID PRN (Reason: Pain) Qty: 20 0RF Rx Instructions: take with food Discharge Instructions Instructions: Urinary Tract Infection in Women (ED) Additional Instructions: Your urine sample today appears consistent with a urinary tract infection. Your urine culture is pending and you will be notified if the results are positive and if a different antibiotic is indicated. Your blood tests today show that you have an elevated white blood cell count likely consistent with your urine infection but the remainder of your labs were reassuring and show no evidence of acute concerning or significant findings. Drink plenty of fluids and get plenty of rest. Alternate tylenol and motrin as needed and directed for pain. A prescription for antibiotics has been sent electronically to your pharmacy to take as directed until finished. You have been placed on care management list to arrange for a follow-up appointment with your primary care doctor and gynecology for reevaluation. Return immediately to the emergency department if you develop any worsening or new concerning symptoms such as fever, vomiting, worsening pain or any other concerns. Referrals: [facility] [Provider Group] Discharge Data Discharge Physician: Kimi Martinez Medical Decision Making 76yo F who presents to the ED Medical Records Medical records narrative: 12/03/21 CT ABDOMEN ? PELVIS W INDICATION:? LLQ ABD PAIN, R10.23; H/O DIVERTICULITIS, Z87.19. COMPARISON:? No exams were available for comparison TECHNIQUE:? FINDINGS: CT examination of the abdomen and pelvis was performed with intravenous infusion of 80 cc of Omnipaque 350. Images obtained through the lung bases are unremarkable. There is a large hiatal hernia containing the gastric fundus period The liver is unremarkable in appearance. Gallbladder and bile ducts are CT normal. Pancreas appears normal. Spleen is unremarkable in appearance. Adrenals appear normal.? The kidneys are unremarkable with no evidence of hydronephrosis, nephrolithiasis, or renal mass..? Urinary bladder unremarkable. Abdominal aorta is of normal diameter and no major vascular abnormality is seen. No abdominal wall hernia. No abdominal or pelvic adenopathy. Uterus is atrophic or absent. Appendix is normal. No evidence of diverticulitis or bowel obstruction. IMPRESSION: No evidence of acute intra-abdominal process. HPI General Mode of arrival: ambulatory . Date/Time Provider Initiated Documentation: 12/05/21 15:46 . Limitations to Documentation: no limitations . Information obtained by: patient . HPI Narrative: Patient is a 76-year-old female presents with a complaint of left-sided lower abdominal pain, urinary frequency and noting debris in her urine today. Patient states she has been treated with 2 rounds of Bactrim in the last few weeks for suspected UTI. Patient states she she has been seen by her primary Dr. Diaz and referred for outpatient CT scan which she was told was unremarkable. Patient states initially she developed left-sided lower abdominal pain Related Data Home Medications Medication Instructions Recorded Confirmed ibuprofen 600 mg tablet 600 mg PO TID PRN Pain #20 tabs 08/15/16 ciprofloxacin HCl 500 mg tablet 500 mg PO BID 7 days #14 tabs 12/05/21 (Cipro) Previous Rx's Medication Instructions Recorded ibuprofen 600 mg tablet 600 mg PO TID PRN Pain #20 tabs 08/15/16 ciprofloxacin HCl 500 mg tablet 500 mg PO BID 7 days #14 tabs 12/05/21 (Cipro) Allergies Allergy/AdvReac Type Severity Reaction Status Date / Time Opioids - Morphine Analogues Allergy Unverified 08/15/16 05:18 Opioids-Meperidine and Allergy Unverified 08/15/16 05:18 Related General Stated Complaint: Urinary DEBBI: 3 Review of Systems All systems reviewed & are unremarkable except as noted in HPI and below Constitutional Constitutional: Reports as per HPI, Denies chills and Denies fever(s) Eyes Eyes: Denies blurry vision ENT Ears, Nose, Mouth, and Throat: Denies dizziness, Denies sore throat and Denies throat swelling Cardiovascular Cardiovascular: Denies chest pain and Denies dyspnea Respiratory Respiratory: Denies cough and Denies dyspnea Gastrointestinal Gastrointestinal: Denies abdominal pain, Denies diarrhea and Denies vomiting Genitourinary Genitourinary: Denies hematuria and Denies dysuria Musculoskeletal Musculoskeletal: Denies back pain and Denies numbness Integumentary/Breasts Skin/Breast: Denies lesions and Denies rash Neurologic Neurologic: Denies dizziness, Denies localized weakness and Denies numbness Allergic/Immunologic Allergic/Immunologic: Denies throat swelling PFSH All Active Problems (Updated 12/05/21 @ 18:11 by Kimi Martinez DO) UTI (urinary tract infection) (Acute) Medical History (Updated 12/05/21 @ 18:11 by Kiim Martinez DO) Diverticulitis GERD (gastroesophageal reflux disease) Hiatal hernia Surgical History (Updated 12/05/21 @ 18:01 by Kimi Martinez DO) H/O shoulder surgery History of knee surgery Social History Smoking/Tobacco Use Status: Never Smoking risk assessment performed?: Yes Alcohol Intake: former Drug use: Never Do you feel safe at home: Yes Do you feel safe in your relationship?: Yes Exam Const General: cooperative, healthy appearing and no acute distress Orientation: alert, awake and oriented x3 HENMT Head: normal to inspection Face and sinus: normal facial exam Eyes General: appearance normal, both eyes and all related structures Pupils: PERRL EOM: EOM intact bilaterally Neck Neck: normal visual inspection and No submandibular swelling Lymphatic: no lymphadenopathy noted Chest Chest: normal inspection of the chest and no tenderness Resp Effort & Inspection: normal respiratory effort and able to speak in complete sentences Auscultation: clear to auscultation bilaterally Cardio Rate: regular rate Rhythm: regular rhythm GI Inspection: normal to inspection Palpation: soft, not firm, not rigid and nontender Auscultation: normal bowel sounds Back/Spine/Pelvis Thoracic/Lumbar Spine: thoracic and lumbar spine normal to inspection Pelvis: no pain with anterior-posterior compression Skin General skin exam: no rashes or lesions noted Neuro General: patient alert, patient awake and patient oriented x3 Cognition: normal cognition Speech: speech normal Motor: muscle tone normal throughout Sensory Exam: no sensory deficits noted Extrem General: normal to inspection, full ROM, capillary refill normal, no calf tenderness bilaterally and no edema Psych Appearance: grossly normal Mental Status: mental status grossly normal Speech and Movement: speech and movement normal Affect: normal affect Course Vital Signs Vital signs: Vital Signs Temperature 99.0 F 12/05/21 15:42 Pulse 85 12/05/21 15:42 Respiratory Rate 18 12/05/21 15:42 Blood Pressure 112/65 12/05/21 15:42 Pulse Oximetry 97 12/05/21 15:42 Temperature 99.0 F 12/05/21 15:42 Temperature Source Temporal Artery Scan 12/05/21 15:42 Pulse 85 12/05/21 15:42 Respiratory Rate 18 12/05/21 15:42 Respiratory Effort Non-Labored 12/05/21 15:47 Blood Pressure 112/65 12/05/21 15:42 Blood Pressure Position Sitting 12/05/21 15:42 Pulse Oximetry 97 12/05/21 15:42 Oxygen Delivery Method Room Air 12/05/21 15:42 Oxygen Flow Rate 0 12/05/21 15:42 Lab/Test Results Lab/Test Results: 12/05/21 15:50 Urine - Reflex from Ua Urine Culture - Pending Laboratory Tests Range/Units 12/05/21 12/05/21 12/05/21 15:50 16:25 16:25 WBC (4.4-10.8) 10^3/uL 13.33 H RBC (3.93-5.22) 10^6/uL 4.29 Hgb (11.2-15.7) g/dL 13.2 Hct (36.0-46.0) % 38.9 MCV (80-95) fL 91 MCH (27.0-33.0) pg 30.8 MCHC (32.0-36.0) % 33.9 RDW (11.7-14.6) % 13.7 Plt Count (130-400) 10^3/uL 373 MPV (8.0-11.0) fL 8.8 Immature Gran % 0.3 Neutrophils % 75.5 Lymphocytes % 13.2 Monocytes % 9.8 Eosinophils % 0.7 Basophils % 0.5 Nucleated RBC % (0.0-0.3) % 0.0 Absolute Neutrophils (1.2-6.7) 10^3/uL 10.06 H Absolute Lymphocytes (1.2-3.4) 10^3/uL 1.76 Absolute Monocytes (0.1-0.8) 10^3/uL 1.31 H Absolute Eosinophils (0.0-0.7) 10^3/uL 0.09 Absolute Basophils (0.0-0.2) 10^3/uL 0.07 Sodium (136-145) mmol/L 134 L Potassium (3.5-5.1) mmol/L 4.0 Chloride (98-107) mmol/L 98 Carbon Dioxide (21.0-32.0) mmol/L 27.2 Anion Gap (3-11) mmol/L 8.8 BUN (7-18) mg/dL 11 Creatinine (0.55-1.02) mg/dL 0.8 Est GFR (CKD-EPI 2020) (mL/min/1.73m2) 77.27 Glucose (74-106) mg/dL 95 Calcium (8.5-10.1) mg/dL 9.4 Total Bilirubin (0.2-1.0) mg/dL 0.4 AST (15-37) U/L 24 ALT (14-59) U/L 24 Alkaline Phosphatase (46-116) U/L 97 Total Protein (6.4-8.2) g/dL 7.7 Albumin (3.4-5.0) g/dL 3.8 Urine Color (Yellow) Yellow Urine Clarity (Clear) Cloudy Urine pH (5-8) 6.5 Ur Specific Vaughan (1.005-1.025) 1.015 Urine Protein (Negative) mg/dL Negative Urine Ketones (Negative) mg/dL Negative Urine Blood (Negative) Large H Urine Nitrite (Negative) Negative Urine Bilirubin (Negative) Negative Urine Urobilinogen (Up TO 0.2) EU/dL 0.2 Ur Leukocyte Esterase (Negative) Large H Urine RBC (0-2) HPF 5-10 H Urine WBC (0-5) HPF >50 H Ur Epithelial Cells (Negative) HPF Few Urine Crystals (Negative) HPF Negative Urine Bacteria (Negative) HPF Moderate Urine Casts (Negative) LPF 0-2 Hyaline Urine Mucus (Negative) Negative Ur Culture Indicated? Yes Urine Glucose (Negative) mg/dL Negative
[2021-12-05] MEDS: Ciprofloxacin 500 MG TAB PO (18:06)
[2021-12-05] MEDS: Ciprofloxacin 250 MG TAB 500 MG PO (18:06)
--- NOTE | 2021-12-05 18:09 | NUR.NOTE ---
Nursing Note: REFERRAL TO [facility]
--- NOTE | 2021-12-05 20:09 | ED.GENADUL_ITS ---
Discharge Plan Disposition Patient Disposition: HOME Condition: Stable Discharge Details Clinical Impression: UTI (urinary tract infection) Primary Care Provider: Estee Diaz ED Provider: Kimi Martinez Home Meds and New Rx's Prescriptions: New ciprofloxacin HCl [Cipro] 500 mg tablet 500 mg PO BID 7 Days Qty: 14 0RF Continued ibuprofen 600 MG tablet 600 mg PO TID PRN (Reason: Pain) Qty: 20 0RF Rx Instructions: take with food Discharge Instructions Instructions: Urinary Tract Infection in Women (ED) Additional Instructions: Your urine sample today appears consistent with a urinary tract infection. Your urine culture is pending and you will be notified if the results are positive and if a different antibiotic is indicated. Your blood tests today show that you have an elevated white blood cell count likely consistent with your urine infection but the remainder of your labs were reassuring and show no evidence of acute concerning or significant findings. Drink plenty of fluids and get plenty of rest. Alternate tylenol and motrin as needed and directed for pain. A prescription for antibiotics has been sent electronically to your pharmacy to take as directed until finished. You have been placed on care management list to arrange for a follow-up appointment with your primary care doctor and gynecology for reevaluation. Return immediately to the emergency department if you develop any worsening or new concerning symptoms such as fever, vomiting, worsening pain or any other concerns. Referrals: [facility] [Provider Group] Discharge Data Discharge Physician: Kimi Martinez Medical Decision Making 76-year-old female with a history of diverticulitis, GERD, hiatal hernia presents for urinary frequency and concern for fecal matter in her urine today. She has been having intermittent left-sided lower abdominal pain for the past few weeks and diagnosed with a UTI treated with 2 rounds of Bactrim and referred for an outpatient CT abdomen and pelvis with IV contrast 2 days ago which was unremarkable. Vitals within normal limits. Patient appears comfortable and nontoxic. Her abdomen is soft and nontender. No CVA tenderness. Urinalysis and screening labs obtained on arrival due to high volume and acuity. Urinalysis notes greater than 50 WBCs, large leukocyte esterase, moderate bacteria with few epithelial cells. Urine culture sent. Screening labs note a white blood cell count of 13 with normal renal function. She has no fever, vomiting, severe pain and appears nontoxic, do not see an indication for repeating her CT imaging and patient is agreeable. Pelvic and bimanual exam done at bedside which appears unremarkable. There was no obvious fistula on exam. Review of urine culture from 12/01/2021 notes that it was likely a contaminated sample with only 10,000 colonies of gram-positive and gram-negative bacteria. As her urine sample appears consistent with UTI today, will treat with Cipro which she states she h as tolerated in the past. She was given 1 dose here, a dose to go and prescription sent electronically to her pharmacy. She was placed on care management list to arrange for a follow-up appointment with her primary care doctor and women's wellness for reevaluation for potential small fistula. Usual and customary return precautions given prior to discharge. Medical Records Medical records reviewed: Yes I reviewed the patient's medical records. Medical records narrative: 12/03/21 CT ABDOMEN ? PELVIS W INDICATION:? LLQ ABD PAIN, R10.23; H/O DIVERTICULITIS, Z87.19. COMPARISON:? No exams were available for comparison TECHNIQUE:? FINDINGS: CT examination of the abdomen and pelvis was performed with intravenous infusion of 80 cc of Omnipaque 350. Images obtained through the lung bases are unremarkable. There is a large hiatal hernia containing the gastric fundus period The liver is unremarkable in appearance. Gallbladder and bile ducts are CT normal. Pancreas appears normal. Spleen is unremarkable in appearance. Adrenals appear normal.? The kidneys are unremarkable with no evidence of hydronephrosis, nephrolithiasis, or renal mass..? Urinary bladder unremarkable. Abdominal aorta is of normal diameter and no major vascular abnormality is seen. No abdominal wall hernia. No abdominal or pelvic adenopathy. Uterus is atrophic or absent. Appendix is normal. No evidence of diverticulitis or bowel obstruction. IMPRESSION: No evidence of acute intra-abdominal process. Lab Data Lab results reviewed: Yes I reviewed the patient's lab results. Labs: 12/05/21 15:50 Urine - Reflex from Ua Urine Culture - Pending Laboratory Tests Range/Units 12/05/21 12/05/21 12/05/21 15:50 16:25 16:25 WBC (4.4-10.8) 10^3/uL 13.33 H RBC (3.93-5.22) 10^6/uL 4.29 Hgb (11.2-15.7) g/dL 13.2 Hct (36.0-46.0) % 38.9 MCV (80-95) fL 91 MCH (27.0-33.0) pg 30.8 MCHC (32.0-36.0) % 33.9 RDW (11.7-14.6) % 13.7 Plt Count (130-400) 10^3/uL 373 MPV (8.0-11.0) fL 8.8 Immature Gran % 0.3 Neutrophils % 75.5 Lymphocytes % 13.2 Monocytes % 9.8 Eosinophils % 0.7 Basophils % 0.5 Nucleated RBC % (0.0-0.3) % 0.0 Absolute Neutrophils (1.2-6.7) 10^3/uL 10.06 H Absolute Lymphocytes (1.2-3.4) 10^3/uL 1.76 Absolute Monocytes (0.1-0.8) 10^3/uL 1.31 H Absolute Eosinophils (0.0-0.7) 10^3/uL 0.09 Absolute Basophils (0.0-0.2) 10^3/uL 0.07 Sodium (136-145) mmol/L 134 L Potassium (3.5-5.1) mmol/L 4.0 Chloride (98-107) mmol/L 98 Carbon Dioxide (21.0-32.0) mmol/L 27.2 Anion Gap (3-11) mmol/L 8.8 BUN (7-18) mg/dL 11 Creatinine (0.55-1.02) mg/dL 0.8 Est GFR (CKD-EPI 2020) (mL/min/1.73m2) 77.27 Glucose (74-106) mg/dL 95 Calcium (8.5-10.1) mg/dL 9.4 Total Bilirubin (0.2-1.0) mg/dL 0.4 AST (15-37) U/L 24 ALT (14-59) U/L 24 Alkaline Phosphatase (46-116) U/L 97 Total Protein (6.4-8.2) g/dL 7.7 Albumin (3.4-5.0) g/dL 3.8 Urine Color (Yellow) Yellow Urine Clarity (Clear) Cloudy Urine pH (5-8) 6.5 Ur Specific [place] (1.005-1.025) 1.015 Urine Protein (Negative) mg/dL Negative Urine Ketones (Negative) mg/dL Negative Urine Blood (Negative) Large H Urine Nitrite (Negative) Negative Urine Bilirubin (Negative) Negative Urine Urobilinogen (Up TO 0.2) EU/dL 0.2 Ur Leukocyte Esterase (Negative) Large H Urine RBC (0-2) HPF 5-10 H Urine WBC (0-5) HPF >50 H Ur Epithelial Cells (Negative) HPF Few Urine Crystals (Negative) HPF Negative Urine Bacteria (Negative) HPF Moderate Urine Casts (Negative) LPF 0-2 Hyaline Urine Mucus (Negative) Negative Ur Culture Indicated? Yes Urine Glucose (Negative) mg/dL Negative HPI General Mode of arrival: ambulatory . Date/Time Provider Initiated Documentation: 12/05/21 15:46 . Limitations to Documentation: no limitations . Information obtained by: patient . HPI Narrative: Pt is a 76yo F who presents to the ED with a complaint of urinary frequency and what she thought was fecal metal in her urine today. Patient states she noticed brown specks in the toilet after urinating today. She states she was treated for UTI with 2 rounds of Bactrim in the last few weeks by her pcp. She states she took her last dose of Bactrim today. She has been followed by Dr. Diaz for left sided lower abdominal pain and was referred for an outpatient CT abdomen and pelvis 2 days ago which was unremarkable. She states Dr. Diaz was going to refer her to women's wellness for concern for a possible fistula but was reassured that her CT abdomen and pelvis was negative and her urine culture was reviewed by Dr. Diaz with urology who found that due to the low number of bacteria, fistula would be less likely. Patient states she has been doing better until today when she developed urinary frequency and concern for fecal matter. She denies any fever, nausea, vomiting, dysuria or back pain. Related Data Home Medications Medication Instructions Recorded Confirmed ibuprofen 600 mg tablet 600 mg PO TID PRN Pain #20 tabs 08/15/16 ciprofloxacin HCl 500 mg tablet 500 mg PO BID 7 days #14 tabs 12/05/21 (Cipro) Previous Rx's Medication Instructions Recorded ibuprofen 600 mg tablet 600 mg PO TID PRN Pain #20 tabs 08/15/16 ciprofloxacin HCl 500 mg tablet 500 mg PO BID 7 days #14 tabs 12/05/21 (Cipro) Allergies Allergy/AdvReac Type Severity Reaction Status Date / Time Opioids - Morphine Analogues Allergy Unverified 08/15/16 05:18 Opioids-Meperidine and Allergy Unverified 08/15/16 05:18 Related General Stated Complaint: Urinary DEBBI: 3 Review of Systems All systems reviewed & are unremarkable except as noted in HPI and below Constitutional Constitutional: Reports as per HPI, Denies chills and Denies fever(s) Eyes Eyes: Denies blurry vision ENT Ears, Nose, Mouth, and Throat: Denies dizziness, Denies sore throat and Denies throat swelling Cardiovascular Cardiovascular: Denies chest pain and Denies dyspnea Respiratory Respiratory: Denies cough and Denies dyspnea Gastrointestinal Gastrointestinal: Reports abdominal pain, Denies diarrhea and Denies vomiting Genitourinary Genitourinary: Denies hematuria, Denies dysuria and Reports other Musculoskeletal Musculoskeletal: Denies back pain and Denies numbness Integumentary/Breasts Skin/Breast: Denies lesions and Denies rash Neurologic Neurologic: Denies dizziness, Denies localized weakness and Denies numbness Allergic/Immunologic Allergic/Immunologic: Denies throat swelling PFSH All Active Problems (Updated 12/05/21 @ 18:11 by Kimi Martinez DO) UTI (urinary tract infection) (Acute) Medical History (Updated 12/05/21 @ 18:11 by Kimi Martinez DO) Diverticulitis GERD (gastroesophageal reflux disease) Hiatal hernia Surgical History (Updated 12/05/21 @ 18:01 by Kimi Martinez DO) H/O shoulder surgery History of knee surgery Social History Smoking/Tobacco Use Status: Never Smoking risk assessment performed?: Yes Alcohol Intake: former Drug use: Never Do you feel safe at home: Yes Do you feel safe in your relationship?: Yes Exam Const General: cooperative, healthy appearing and no acute distress Orientation: alert, awake and oriented x3 HENMT Head: normal to inspection Face and sinus: normal facial exam Eyes General: appearance normal, both eyes and all related structures Pupils: PERRL EOM: EOM intact bilaterally Neck Neck: normal visual inspection and No submandibular swelling Lymphatic: no lymphadenopathy noted Chest Chest: normal inspection of the chest and no tenderness Resp Effort & Inspection: normal respiratory effort and able to speak in complete sentences Auscultation: clear to auscultation bilaterally Cardio Rate: regular rate Rhythm: regular rhythm GI Inspection: normal to inspection Palpation: soft, not firm, not rigid and nontender Auscultation: hypoactive bowel sounds External Female Exam: normal external appearance Speculum Exam - Vagina: normal appearance of the vagina Speculum Exam - Cervix: normal appearance of the cervix Bimanual Exam- Vagina & Uterus: normal bimanual exam Bimanual Exam- Adnexa, other: normal adnexae Back/Spine/Pelvis Back: no CVA tenderness Skin General skin exam: no rashes or lesions noted Neuro General: patient alert, patient awake and patient oriented x3 Cognition: normal cognition Speech: speech normal Motor: muscle tone normal throughout Sensory Exam: no sensory deficits noted Extrem General: normal to inspection, full ROM, capillary refill normal, no calf tenderness bilaterally and no edema Psych Appearance: grossly normal Mental Status: mental status grossly normal Speech and Movement: speech and movement normal Affect: normal affect Course Vital Signs Vital signs: Vital Signs Temperature 99.0 F 12/05/21 15:42 Pulse 85 12/05/21 15:42 Respiratory Rate 18 12/05/21 15:42 Blood Pressure 112/65 12/05/21 15:42 Pulse Oximetry 97 12/05/21 15:42 Temperature 99.0 F 12/05/21 15:42 Temperature Source Temporal Artery Scan 12/05/21 15:42 Pulse 85 12/05/21 15:42 Respiratory Rate 18 12/05/21 15:42 Respiratory Effort Non-Labored 12/05/21 15:47 Blood Pressure 112/65 12/05/21 15:42 Blood Pressure Position Sitting 12/05/21 15:42 Pulse Oximetry 97 12/05/21 15:42 Oxygen Delivery Method Room Air 12/05/21 15:42 Oxygen Flow Rate 0 12/05/21 15:42 Lab/Test Results Lab/Test Results: 12/05/21 15:50 Urine - Reflex from Ua Urine Culture - Pending Laboratory Tests Range/Units 12/05/21 12/05/21 12/05/21 15:50 16:25 16:25 WBC (4.4-10.8) 10^3/uL 13.33 H RBC (3.93-5.22) 10^6/uL 4.29 Hgb (11.2-15.7) g/dL 13.2 Hct (36.0-46.0) % 38.9 MCV (80-95) fL 91 MCH (27.0-33.0) pg 30.8 MCHC (32.0-36.0) % 33.9 RDW (11.7-14.6) % 13.7 Plt Count (130-400) 10^3/uL 373 MPV (8.0-11.0) fL 8.8 Immature Gran % 0.3 Neutrophils % 75.5 Lymphocytes % 13.2 Monocytes % 9.8 Eosinophils % 0.7 Basophils % 0.5 Nucleated RBC % (0.0-0.3) % 0.0 Absolute Neutrophils (1.2-6.7) 10^3/uL 10.06 H Absolute Lymphocytes (1.2-3.4) 10^3/uL 1.76 Absolute Monocytes (0.1-0.8) 10^3/uL 1.31 H Absolute Eosinophils (0.0-0.7) 10^3/uL 0.09 Absolute Basophils (0.0-0.2) 10^3/uL 0.07 Sodium (136-145) mmol/L 134 L Potassium (3.5-5.1) mmol/L 4.0 Chloride (98-107) mmol/L 98 Carbon Dioxide (21.0-32.0) mmol/L 27.2 Anion Gap (3-11) mmol/L 8.8 BUN (7-18) mg/dL 11 Creatinine (0.55-1.02) mg/dL 0.8 Est GFR (CKD-EPI 2020) (mL/min/1.73m2) 77.27 Glucose (74-106) mg/dL 95 Calcium (8.5-10.1) mg/dL 9.4 Total Bilirubin (0.2-1.0) mg/dL 0.4 AST (15-37) U/L 24 ALT (14-59) U/L 24 Alkaline Phosphatase (46-116) U/L 97 Total Protein (6.4-8.2) g/dL 7.7 Albumin (3.4-5.0) g/dL 3.8 Urine Color (Yellow) Yellow Urine Clarity (Clear) Cloudy Urine pH (5-8) 6.5 Ur Specific [place] (1.005-1.025) 1.015 Urine Protein (Negative) mg/dL Negative Urine Ketones (Negative) mg/dL Negative Urine Blood (Negative) Large H Urine Nitrite (Negative) Negative Urine Bilirubin (Negative) Negative Urine Urobilinogen (Up TO 0.2) EU/dL 0.2 Ur Leukocyte Esterase (Negative) Large H Urine RBC (0-2) HPF 5-10 H Urine WBC (0-5) HPF >50 H Ur Epithelial Cells (Negative) HPF Few Urine Crystals (Negative) HPF Negative Urine Bacteria (Negative) HPF Moderate Urine Casts (Negative) LPF 0-2 Hyaline Urine Mucus (Negative) Negative Ur Culture Indicated? Yes Urine Glucose (Negative) mg/dL Negative
== END 2021-12-05 18:14 | disposition home or self-care (01) ==
PROVIDERS: Emergency Provider Physician Assistant; PCP Family Medicine
DX: N39.0 Urinary tract infection, site not specified (principal)
CPT/HCPCS: 80053; 87077; 99283; 81003; 81015; 85025; 87086; 87186; 99284

== ENCOUNTER → 2021-12-10 10:09 | Outpatient (BNVA) | payer MEDICARE, OTHER, SELFPAY | PROVIDERS: PCP Family Medicine; Referring Provider Family Medicine; Visit Provider Urology | DX: R39.89 Other symptoms and signs involving the genitourinary system (principal); N95.2 Postmenopausal atrophic vaginitis | CPT/HCPCS: 81003; 99215 ==

== ENCOUNTER → 2021-12-14 10:02 | Outpatient (BNVA) | payer MEDICARE, OTHER, SELFPAY | PROVIDERS: PCP Family Medicine; Referring Provider Family Medicine; Visit Provider Surgery | DX: Z12.11 Encounter for screening for malignant neoplasm of colon (principal) ==

== ENCOUNTER 2021-12-16 09:48 | Outpatient (REF) | payer MEDICARE, OTHER, SELFPAY ==
--- OUTSIDE RECORDS SUMMARY | 2021-12-22 09:51 | XMS_ITS | Encounter Summary ---
:1945 Author Organization [facility] [place] [address] Care Team Providers Name Role Phone Estee Diaz MD Primary Care Provider Encounter Details Date Type Department Care Team Description 01/19/2021 Notes Only Orthopaedics at Nish Tinoco MD [facility] [place] [address] [place] [address] [phone] (Wo rk) Social History Tobacco Use Types Packs/Day Years Used Date Former Smoker Quit: 1988 Smokeless Tobacco: Never Used Alcohol Use Standard Drinks/Week Comments Yes 4 (1 standard drink = 0.6 oz pure alcoho l) Sex Assigned at Date Recorded Not on file documented as of this encounter Progress Notes Verena Hinojosa RN - 01/19/2021 8:06 AM EST Prior auth received through [employer] for diclofenac sodium 3% gel as prescribed by Abdulaziz Sandoval PA-C. Completed prior auth and awaiting response from insurance company. Denial received from insurance company with recommendations to trial diclofenac 1% gel first. documented in this encounter Plan of Treatment Not on filedocumented as of this encounter Visit Diagnoses Not on filedocumented in this encounter Care Teams Deputy Sheriff Bailiff Relationship Specialty Start Date End Date Estee Diaz MD PCP - General Family Medicine 10/28/20 [address] [place] [address] documented as of this encounter
--- OUTSIDE RECORDS SUMMARY | 2021-12-22 09:51 | XMS_ITS | Encounter Summary ---
:1945 Author Organization [facility] Address [address] [place] [address] Care Team Providers Name Role Phone Estee Diaz MD Primary Care Provider Reason for Referral Physical Therapy (Routine) - Closed Specialty Diagnoses / Procedures Referred By Contact Refer red To Contact Physical Therapy Diagnoses Other urinary incontinence Nish Chávez MD [facility] [address] [address] [place] [address] Fax: Referral ID Status Reason Start Date Expiration Date Visits V isits Requested Authorized [id number] Closed Evaluate and 06/10/2021 12/07/2021 12 12 Treat Reason for Visit Reason Comments Follow-up RT THR 12/16/2020 Encounter Details Date Type Department Care Team Description 06/10/2021 Office Visit Orthopaedics at Nish Herrera [place] [facility] urinary incontinence (Primary Dx); Brett Pena MD Trochanteric bursitis of left hip; [address] Presence [place] [address] [phone] [place] [address] Social History Tobacco Use Types Packs/Day Years [...] right side, however she went to a english composition instructor who showed her some stretches and [...] means documented in this encounter Care Teams Travel Agency Manager Relationship Specialty Start Date End Date Estee Diaz MD PCP - General Family Medicine 10/28/20 [address] [place] [address] documented as of this encounter
--- OUTSIDE RECORDS SUMMARY | 2021-12-22 09:51 | XMS_ITS | Encounter Summary ---
:1945 Author Organization [place] [address] Care Team Providers Name Role Phone Estee Diaz MD Primary Care Provider Reason for Visit Reason Comments Follow-up Right CAREY Encounter Details Date Type Department Care Team Description 02/20/2021 Office Visit Orthopaedics at Mari Reveles rochanteric bursitis MONAE Stafford of left hip [address] [facility] [address] [facility] [place] [address] [phone] [place], [place] [address] Social History Tobacco Use Types [...] Routine documented in this encounter Care Teams Motor Teacher Relationship Specialty Start Date End Date Estee Diaz MD PCP - General Family Medicine 10/28/20 [address] [place] [address] documented as of this encounter
--- OUTSIDE RECORDS SUMMARY | 2021-12-22 09:51 | XMS_ITS | Clinical Summary ---
:1945 Author Organization [facility] [place] [address] Care Team Providers Name Role Phone Estee [...] capsule by 0 Active vitamin D3, (VITAMIN mouth every morning. D3 ORAL) doxepin (Sinequan) TAKE 1 CAPSULE BY 0 08/01/2020 Active 10 mg Capsule MOUTH AT BEDTIME polyethylene glycoL Take 17 g by mouth 0 Active (Miralax) 17 daily as needed. gram/dose Powder methylcellulose, Take 1 packet by 0 Active with Sugar, mouth nightly. (Citrucel, sucrose,) Powder fish oil-omega-3 Take by mouth. 0 Active fatty acids 500 mg Capsule [id number] Take by mouth. 0 Active reg-capryl 100 mg-150 mg- 50 mg-150 mg Capsule estradioL (VAGIFEM) INSERT ONE TABLET 0 12/09/2021 Active 10 mcg Tablet VIA APPLICATOR INTRAVGINALLY ONCE DAILY FOR 14 DAYS omeprazole TAKE ONE CAPSULE BY 0 11/19/2021 Active (PriLOSEC) 20 mg MOUTH EVERY DAY FOR Capsule, Delayed A MONTH; THEN TAKE Release(E.C.) NEEDED WITH NSAIDS meloxicam (MOBIC) 15 Take 0.5 tablets by 30 tablet 3 2 Active mg mouth daily. 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 12/15/2021 Travel 12/01/2021 Orders Only Orthopaedics Nish Chávez MD [...] - - Weight 59 kg (130 lb) 12/16/2021 11:35 AM EDT Height 172.7 cm (5' 8) 12/16/2021 11:35 AM EDT Body Mass Index 19.77 12/16/2021 11:35 AM EDT Plan of Treatment Health Maintenance [...] 10/15/2021 series) Medical Devices Implanted Type Area Safety Representative Device Shelf Model / Identifier Expiration Serial / Date Lot Head Femoral Hip 32mm -3mm Offset 01/27 Tpr Zirc[employer] Oxinium ([id number]) (Autore[employer]) - [id number] IMPLANTS Right: [employer] - 09/22/2030 [id number] / Implanted: Qty: 1 on 12/16/2020 by Nish Chávez MD at [facility] FERRIS NEPH / [id number] Procedures Procedure Name Priority Date/Time Associated Diagnosis Comme nts XR PELVIS AND LAT Routine 12/16/2021 11:38 AM Status post tota l Results for this HIP RIGHT EDT replacement of right procedu re are in hip the results section. from Last 3 Months Results XR Pelvis & Lat Hip Right (Generic) (12/16/2021 11:38 AM EDT) Anatomical Region Laterality Modality Pelvis, Hip Right Digital Radiography Specimen (Source) Anatomical Location Collection Method / Collectio n Time Received Time / Laterality Volume Impressions 12/16/2021 12:34 PM EDT RIGHT Unchanged and Uncomplicated total hip ar throplasty Thank you for letting us participate in the care of this patient. ??If you are a health care provider and have any questi ons regarding this report, please contact the number below. ??For patients who have questions please contact the health aged or disabled care worker that requested your imaging first. ? Electronically signed by: Darling Patricio MD, [facility] ([phone]), at 12/16/2021 12:34 PM Narrative 12/16/2021 12:34 PM EDT EXAMINATION: XR PELVIS AND LAT HIP RIGHT (GENERIC) CLINICAL HISTORY: assess hip healing. s/ p thr TECHNIQUE: AP lower pelvis and lateral v iew of RIGHT hip COMPARISON: Multiple examinations since December 2020 FINDINGS: RIGHT A total hip arthroplasty is present. Alignment: The prosthesis is unchanged i n alignment. Complication: There is no loosening or f racture. Soft tissues: Several new oval opacities in lower pelvis may represent bowel content overlying artifacts. Procedure Note Darling Patricio MD - 12/16/2021Formatt ing of this note might be different from the original. EXAMINATION: XR PELVIS AND LAT HIP RIGHT (GENERIC) CLINICAL HISTORY: assess hip healing. s/ p thr TECHNIQUE: AP lower pelvis and lateral v iew of RIGHT hip COMPARISON: Multiple examinations since December 2020 FINDINGS: RIGHT A total hip arthroplasty is present. Alignment: The prosthesis is unchanged i n alignment. Complication: There is no loosening or f racture. Soft tissues: Several new oval opacities in lower pelvis may represent bowel content overlying artifacts. IMPRESSION RIGHT Unchanged and Uncomplicated total hip ar throplasty Thank you for letting us participate in the care of this patient. If you are a health care provider and have any questi ons regarding this report, please contact the number below. For patients w ho have questions please contact the health aged or disabled care worker that requested your imaging first. Electronically signed by: Darling Patricio MD[facility] ([phone]), at 12/16/2021 12:34 PM Nish Chávez MD IMG DX ORDERABLES from Last 3 Months Insurance Payer Benefit Plan / Subscriber ID Effective Phone Address T e Group Dates [facility] MEDICARE [id number] 2020-Prese [phone] [address] SU[address] [place] [id number] MEDICARE MEDICARE PART A [id number] 2020-Prese [phone] [place] [id number] Advance Directives Documents on File Type Date Recorded Patient Manager Trading Explanati on Personal Manager Trading 11/04/2020 12:58 PM jeff alonsoan Latest Code Status on File Code Status Date Activated Date Inactivated Comments Attempt Cardiopulmonary Resuscitation - 12/16/2020 9:24 AM 021 1:14 PM Inpatient Code Status decision made by: Patient Care Teams Alteration Inspector Relationship Specialty Start Date End Date Estee Diaz MD PCP - General Family Medicine 10/28/20 [address] [place] [address]
--- OUTSIDE RECORDS SUMMARY | 2021-12-22 09:51 | XMS_ITS | Encounter Summary ---
:1945 Author Organization [facility] [place] [address] Care Team Providers Name Role Phone Estee Diaz MD Primary Care Provider Encounter Details Date Type Department Care Team Description 12/16/2021 Ancillary Procedure Radiology XRay at Nish Chávez S tatus post total the Multi-Specialty MD replacement of right Clinic at [facility] [address] hip [address] [place] [address] [phone] Social History Tobacco Use Types Packs/Day Years [...] have questions please contact the health child care worker that requested your imaging first. ? Electronically signed by: Darling Patricio MD, [facility] ([phone]), at 12/16/2021 12:34 PM Narrative 12/16/2021 12:34 [...] have questions please contact the health child care worker that requested your imaging first. Electronically signed by: Darling Patricio MD, [facility] ([phone]), at 12/16/2021 12:34 PM Nish Chávez MD IMG DX ORDERABLES documented in this encounter Visit Diagnoses Diagnosis Status post total replacement of right h ip documented in this encounter Care Teams Federal Appellate Clerk Relationship Specialty Start Date End Date Estee Diaz MD PCP - General Family Medicine 10/28/20 Toni SHETTY 1 [place] [address] documented as of this encounter
--- OUTSIDE RECORDS SUMMARY | 2021-12-22 09:51 | XMS_ITS | Encounter Summary ---
:1945 Author Organization [facility] [place] [address] Care Team Providers Name Role Phone Estee Diaz MD Primary Care Provider Encounter Details Date Type Department Care Team Description 01/05/2021 Orders Only Cardiology at [facility] Serjio Moon, Premature ventricular [facility] [place] [address] CARDIOLOGY DEPT [phone] [place], [place] [address] Social History Tobacco Use Types [...] beats documented in this encounter Care Teams Research Physicist Relationship Specialty Start Date End Date Estee Diaz MD PCP - General Family Medicine 10/28/20 Toni SHETTY 1 [place] [address] documented as of this encounter
--- OUTSIDE RECORDS SUMMARY | 2021-12-22 09:51 | XMS_ITS | Encounter Summary ---
:1945 Author Organization [facility] [place] [address] Care Team Providers Name Role Phone Estee Diaz MD Primary Care Provider Encounter Details Date Type Department Care Team Description 06/10/2021 Ancillary Procedure Radiology XRay at Nish Chávez S tatus post total the Multi-Specialty MD replacement of right Clinic [facility] [address] [place] [address] [phone] Social History Tobacco Use Types Packs/Day Years [...] who have questions please contact the health assisted living care manager that requested your imaging first. ? Narrative [...] ho have questions please contact the health assisted living care manager that requested your imaging first. Nish Chávez MD IMG DX ORDERABLES documented in this encounter Visit Diagnoses Diagnosis Status post total replacement of right h ip documented in this encounter Care Teams Merchandise Appraiser Relationship Specialty Start Date End Date Estee Diaz MD PCP - General Family Medicine 10/28/[address] [facility] 1 [place] [address] documented as of this encounter
--- OUTSIDE RECORDS SUMMARY | 2021-12-22 09:51 | XMS_ITS | Encounter Summary ---
:1945 Author Organization [facility] [place] [address] Care Team Providers Name Role Phone Estee Diaz MD Primary Care Provider Encounter Details Date Type Department Care Team Description 01/16/2021 Office Visit Orthopaedics at Mari Reveles tatus post total replacement of right hip; MONAE Stafford Trochanteric bursitis of left hip; [address] [place] [address] [phone] [place], [place] [address] Social History Tobacco Use Types [...] the past. [facility]. I have also [...] knee documented in this encounter Care Teams Product Manager Medical Device Relationship Specialty Start Date End Date Estee Diaz MD PCP - General Family Medicine 10/28/20 Toni SHETTY 1 [place] [address] documented as of this encounter
--- OUTSIDE RECORDS SUMMARY | 2021-12-22 09:51 | XMS_ITS | Encounter Summary ---
:1945 Author Organization [facility] [place] [address] Care Team Providers Name Role Phone Estee Diaz MD Primary Care Provider Reason for Visit Reason Onset Date Comments Other 06/15/2021 US guided hip inject ion Encounter Details Date Type Department Care Team Description 06/15/2021 Telephone Orthopaedics at Lakeisha Hawley O ther (US guided hip West Day RN injection) [facility] [address] Social History Tobacco Use Types Packs/Day [...] PM Caller: Molly Rios 1945 Telephone Information: [phone] (home) Problem/Question: The patient left a message [...] on filedocumented in this encounter Care Teams Chef Head Relationship Specialty Start Date End Date Estee Diaz MD PCP - General Family Medicine 10/28/[address] [facility] 1 [place] [address] documented as of this encounter
--- OUTSIDE RECORDS SUMMARY | 2021-12-22 09:51 | XMS_ITS | Encounter Summary ---
:1945 Author Organization [facility] [place] [address] Care Team Providers Name Role Phone Estee Diaz MD Primary Care Provider Encounter Details Date Type Department Care Team Description 07/06/2021 Telephone Surgical Specialties at Gee Younger RN [facility] [place] [address] Social History Tobacco Use Types Packs/Day [...] prescribed antibiotics for any upcoming dental procedure. [employer] Planned Dental Procedure: [...] on filedocumented in this encounter Care Teams Rollway Worker Relationship Specialty Start Date End Date Estee Diaz MD PCP - General Family Medicine 10/28/20 Toni SHETTY 1 [place] [address] documented as of this encounter
--- OUTSIDE RECORDS SUMMARY | 2021-12-22 09:51 | XMS_ITS | Encounter Summary ---
:1945 Author Organization [facility] [place] [address] Care Team Providers Name Role Phone Estee Diaz MD Primary Care Provider Encounter Details Date Type Department Care Team Description 03/17/2021 TH Visit Orthopaedics at Mari Reveles tat post total (TeleHealth) MONAE Stafford replacement of right [address] Day [facility] [place] [address] [address] [place] [phone] Social History Tobacco Use Types Packs/Day Years [...] similarly to an in-clinic office visit. Call: [phone] Date of Surgery: 12/16/20 Procedure: Right total [...] ip documented in this encounter Care Teams Tire Center Manager Relationship Specialty Start Date End Date Estee Diaz MD PCP - General Family Medicine 10/28/20 Toni SHETTY 1 [place] [address] documented as of this encounter
--- OUTSIDE RECORDS SUMMARY | 2021-12-22 09:51 | XMS_ITS | Encounter Summary ---
:1945 Author Organization [facility] Address [address] [place] [address] Care Team Providers Name Role Phone Estee Diaz MD Primary Care Provider Encounter Details Date Type Department Care Team Description 05/27/2021 Orders Only Orthopaedics at Nish Herrera, Stat post total West Day replacement of right 10 [address] Day [address] hip (Primary Dx) [place] [address] [phone] [place] [address] Social History Tobacco Use Types Packs/Day Years [...] who have questions please contact the health care management associate that requested your imaging first. ? Narrative [...] ho have questions please contact the health care management associate that requested your imaging first. Nish Chávez MD IMG DX ORDERABLES documented in this encounter Visit Diagnoses Diagnosis Status post total replacement of right h ip - Primary Status post total replacement of right h ip documented in this encounter Care Teams Corporate Claims Examiner Relationship Specialty Start Date End Date Estee Diaz MD PCP - General Family Medicine 10/28/20 Toni SHETTY 1 [place] [address] documented as of this encounter
--- OUTSIDE RECORDS SUMMARY | 2021-12-22 09:51 | XMS_ITS | Encounter Summary ---
:1945 Author Organization [facility] [place] [address] Care Team Providers Name Role Phone Estee Diaz MD Primary Care Provider Encounter Details Date Type Department Care Team Description 01/16/2021 Ancillary Procedure Radiology XRay at Nish Chávez S tatus post right the Multi-Specialty MD hip replacement Clinic at [facility] 10 [facility] 10 [facility] [place] [address] [phone] Social History Tobacco Use Types Packs/Day Years [...] have questions please contact the health care navigator that requested your imaging first. ? Electronically signed by: Jyoti Gutiérrez MD, [facility] ([phone]), at 01/16/2021 12:17 PM Narrative 01/16/2021 12:17 [...] have questions please contact the health care navigator that requested your imaging first. Electronically signed by: Jyoti Gutiérrez MD, [facility] ([phone]), at 01/16/2021 12:17 PM Nish Chávez MD IMG DX ORDERABLES documented in this encounter Visit Diagnoses Diagnosis Status post right hip replacement Hip joint replacement by other means documented in this encounter Care Teams Transport Company Manager Relationship Specialty Start Date End Date Estee Diaz MD PCP - General Family Medicine 10/28/20 [address] [place] [address] documented as of this encounter
--- OUTSIDE RECORDS SUMMARY | 2021-12-22 09:51 | XMS_ITS | Encounter Summary ---
:1945 Author Organization [facility] [place] [address] Care Team Providers Name Role Phone Estee Diaz MD Primary Care Provider Encounter Details Date Type Department Care Team Description 12/15/2021 Travel Social History Tobacco Use Types Packs/Day [...] filedocumented in this encounter Care Teams Assistant Business Manager Relationship Specialty Start Date End Date Estee Diaz MD PCP - General Family Medicine 10/28/20 Toni SHETTY [address] [place] [address] documented as of this encounter
--- OUTSIDE RECORDS SUMMARY | 2021-12-22 09:51 | XMS_ITS | Encounter Summary ---
:1945 Author Organization [facility] [place] [address] Care Team Providers Name Role Phone Estee Diaz MD Primary Care Provider Encounter Details Date Type Department Care Team Description 12/01/2021 Orders Only Orthopaedics at Nish Herrera, Stat post total West Day replacement of right [address] [place] [address] [phone] [place] [address] Social History Tobacco Use Types Packs/Day Years [...] who have questions please contact the health direct care staffer that requested your imaging first. ? Narrative 12/16/2021 12:34 PM EDT EXAMINATION: XR [...] ho have questions please contact the health direct care staffer that requested your imaging first. 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
--- OUTSIDE RECORDS SUMMARY | 2021-12-22 09:52 | XMS_ITS | Encounter Summary ---
:1945 Author Organization [facility] Address [address] [place] [address] Care Team Providers Name Role Phone Kevin Miranda MD Primary Care Provider Reason for Visit Reason Comments Right Hip Pain Encounter Details Date Type Department Care Team Description 09/10/2020 Office Visit Orthopaedics at Nish Herrera [facility] hanteric bursitis Brett Pena MD of left hip (Primary [address] Dx) [place] [address] [address] [phone] [place] [address] Social History Tobacco Use Types Packs/Day Years [...] region documented in this encounter Care Teams All Source Collection Manager Relationship Specialty Start Date End Date Kevin Miranda MD PCP - General Family Medicine 06/30/20 10/27/[address] [place] [address] documented as of this encounter
--- OUTSIDE RECORDS SUMMARY | 2021-12-22 09:52 | XMS_ITS | Encounter Summary ---
:1945 Author Organization [facility] [place] [address] Care Team Providers Name Role Phone Estee Diaz MD Primary Care Provider Encounter Details Date Type Department Care Team Description 12/15/2020 Orders Only Orthopaedics at [facility] Mari Vela PA [facility] [place] [address] [place] [address] [phone] Social History Tobacco Use Types Packs/Day Years [...] filedocumented in this encounter Care Teams Ice Cream Server Relationship Specialty Start Date End Date Estee Diaz MD PCP - General Family Medicine 10/28/20 Toni SHETTY 1 [place] [address] documented as of this encounter
--- OUTSIDE RECORDS SUMMARY | 2021-12-22 09:52 | XMS_ITS | Encounter Summary ---
:1945 Author Organization [facility] [place] [address] Care Team Providers Name Role Phone Estee Diaz MD Primary Care Provider Encounter Details Date Type Department Care Team Description 01/05/2021 Orders Only Orthopaedics at Nish Herrera, Stat us post right hip West MD replacement yvonne Cuevas 10 [facility] [place] [address] [phone] [place] [address] Social History Tobacco Use Types Packs/Day Years [...] who have questions please contact the health critical care paramedic that requested your imaging first. ? Electronically signed by: Jyoti Gutiérrez MD, [facility] ([phone]), at 01/16/2021 12:17 PM Narrative 01/16/2021 12:17 [...] ho have questions please contact the health critical care paramedic that requested your imaging first. Electronically signed by: Jyoti Gutiérrez MD, [facility] ([phone]), at 01/16/2021 12:17 PM Nish Chávez MD IMG DX ORDERABLES documented in this encounter Visit Diagnoses Diagnosis Status post right hip replacement Hip joint replacement by other means Status post right hip replacement Hip joint replacement by other means documented in this encounter Care Teams Inventory Worker Relationship Specialty Start Date End Date Estee Diaz MD PCP - General Family Medicine 10/28/20 Toni SHETTY 1 [place] [address] documented as of this encounter
--- OUTSIDE RECORDS SUMMARY | 2021-12-22 09:52 | XMS_ITS | Encounter Summary ---
:1945 Author Organization [facility] [place] [address] Care Team Providers Name Role Phone Kevin Miradna MD Primary Care Provider Reason for Referral Consultation (Routine) - Closed Specialty Diagnoses / Procedures Referred By Contact Refer red To Contact Family Medicine Diagnoses Primary osteoarthritis of right hip Pain in right hip Pre-op exam Nish Chávez MD Kraus, Dana C, MD [address] [facility] [facility] 1 [place] [phone] Fax: Referral ID Status Reason Start Date Expiration Date Visits V isits Requested Authorized [id number] Closed Consult, 10/16/2020 04/14/2021 1 1 Test & Treat Encounter Details Date Type Department Care Team Description 10/16/2020 Orders Only Orthopaedics at Nish Herrera, Chantale arlette osteoarthritis of right hip; Brett Pena MD Pain in right hip; 10 [address] 10 Helen Newman Pre-op exam; [place] [address] Pre-op testing [phone] [place] [address] Social History Tobacco Use Types Packs/Day Years [...] 431 ms MUSE SYSTEM (Bezet) Calculated P [place] 75 degrees MUSE SYSTEM Calculated R [place] 36 degrees MUSE SYSTEM Calculated T [place] 60 degrees MUSE SYSTEM INTERPRETATION Sinus rhythm [...] City/State/ZIP Code Phon e Number LABORATORY 10 [place], [place] [address] Staph aureus/MRSA Culture Screen Nasal (10/31/2020 12:00 PM EDT) Component Value Ref Test Analysis Performed At [facility] Range Method Time Signature Staphylococcus No Staphylococcus BLANCA Screening Culture aureus isolated [facility] LAB[facility]ORY Specimen Anatomical Collection Method Collection Time Receive d Time (Source) Location / / Volume Laterality Nasal 10/31/2020 12:00 10/31/2020 4:41 PM EDT PM EDT Resulting Agency Comment Spec In Lab Nish Chávez MD MICROBIOLOGY - GENERAL ORDER VON Performing Organization Address City/State/[place] [address] documented in this encounter Visit Diagnoses Diagnosis Primary osteoarthritis of right hip Primary localized osteoarthrosis, pelvic region and thigh Pain in right hip Pain in joint, pelvic region and thigh Pre-op exam Preoperative examination, unspecified Pre-op testing Preoperative examination, unspecified documented in this encounter Care Teams Director Food Safety Relationship Specialty Start Date End Date Kevin Miranda MD PCP - General Family Medicine 06/30/20 10/27/[address] [place] [address] documented as of this encounter
--- OUTSIDE RECORDS SUMMARY | 2021-12-22 09:52 | XMS_ITS | Encounter Summary ---
:1945 Author Organization [facility] [place] [address] Care Team Providers Name Role Phone Estee Diaz MD Primary Care Provider Reason for Visit Reason Onset Date Comments Questions 12/19/2020 Encounter Details Date Type Department Care Team Description 12/19/2020 Telephone Orthopaedics at [facility] Robert Floyd RN Questions 10 [facility] [place] [address] Social History Tobacco Use Types Packs/Day [...] AM Caller: Molly Rios 1945 Telephone Information: [phone] (home) Problem/Question: Patient returns call to clinic [...] symptoms worsen patient instructed to contact the transition assistant physician at the clinic. Patient expressed understanding of instructions and will contact clinic with further questions or concerns. Verena Hinojosa RN Telephone Encounter - Robert Genao RN - 12/19/2020 9:39 AM EDT Telephone Call 12/19/2020 9:39 AM Caller: Mollytalha Soloan 1945 Telephone Information: [phone] (home) Problem/Question: Pricila is S/P right CAREY-DAA [...] on filedocumented in this encounter Care Teams Hoist Worker Relationship Specialty Start Date End Date Estee Diaz MD PCP - General Family Medicine 10/28/20 Toni SHETTY 1 [place] [address] documented as of this encounter
--- OUTSIDE RECORDS SUMMARY | 2021-12-22 09:52 | XMS_ITS | Encounter Summary ---
:1945 Author Organization [facility] Address [address] [place] [address] Care Team Providers Name Role Phone Kevin Miranda MD Primary Care Provider Reason for Visit Reason Comments Right Hip Pain Consultation (Routine) - Closed Specialty Diagnoses / Procedures Referred By Contact Refer red To Contact Orthopaedics Diagnoses Rt Hip OA Nish Chávez MD Tomek, Ivan M, MD 10 [address] bañuelos 10 [place] [address] [place] [address] Fax: Referral ID Status Reason Start Date Expiration Date Visits V isits Requested Authorized [id number] Closed Evaluate and 06/30/2020 06/30/2021 1 1 Treat Encounter Details Date Type Department Care Team Description 07/16/2020 Office Visit Orthopaedics at Nish Herrera, Prim arlette osteoarthritis Brett Pena MD of right hip (Primary [address] Dx) [place] [address] [phone] [place] [id number] Social History Tobacco Use Types Packs/Day Years [...] at the request of Kevin Miranda MD [address] [place] [address] for evaluation of hip pain HPI: Molly [...] improvement . Physical Therapy : yes at [facility] with slight improvement . Joint Injections: no Imaging: right hip X-ray series were performed on 07/16/20 at [facility] The imaging was available and reviewed in [...] Thus far she has been taking mostly [id number] anti-inflammatory medication and has been doing some [...] years according to accelerated agingsimulation by the maintenance planning clerk. I did point out to her that [...] thigh documented in this encounter Care Teams Airport Skilled Maintenance Supervisor Relationship Specialty Start Date End Date Kevin Miranda MD PCP - General Family Medicine 06/30/20 10/27/20 [address] [place] [address] documented as of this encounter
--- OUTSIDE RECORDS SUMMARY | 2021-12-22 09:52 | XMS_ITS | Encounter Summary ---
:1945 Author Organization [facility] Address [facility] [place] [address] Care Team Providers Name Role Phone Estee [...] Expiration Date Visits Requ ested Visits Authorized [id number] 1 1 Encounter Details Date Type Department Care Team Description 12/16/2020 Surgery Operating Room Nish Herrera MD TOTAL HIP ARTHROPLASTY, West Day [address] ANTERIOR APPROACH (WRVU [address]) [place] [address] [place] [address] [phone] Social History Tobacco Use Types Packs/Day Years [...] - 12/17/2020 9:55 AM EDT [facility] Discharge Summary Admit date: 12/16/2020 Expected [...] medication that you were doing while at [facility]. Be sure to understand your pain medication plan before you leave the hospital and remember to quill picking machine operator all prescriptions at the pharmacy. [...] 11:30 AM Mari Sandoval PA Orthopaedics at [facility] Arrive at: [facility] Level 02/20/2021 1:00 PM Mari Sandoval PA Orthopaedics at [facility] Arrive at: [facility] Level Future Orders Complete By Expires Referral to Home Health - at DISCHARGE [DQL9635 CPT(R)] As directed Process Instructions: Scheduling Instructions: Comments: DOCUMENTATION FOR VNA SERVICES (INCLUDING THOSE PATIENTS WITH MEDICARE COVERAGE REQUIRING HOME VNA SERVICES AND/OR HOSPICE SERVICES) PATIENT'S LOCATION: Molly Rios [address] [place] [address] (home) Cell: Telephone Information: Numerical Control Programmer's Name: Medhat/Self In discussion with the attending physician, it is certified that this patient is under their care and that they, or a Nurse Practitioner,Clinical Nurse specialist or Physician Aquarium Specialist who is working directly with them, had [...] for managing ADL's. HOME HEALTH CARE AGENCY: [facility] PHONE: [phone] FAX: [phone] Start of care: 24-48 hours post dc [...] patient'sPCP: MD Toni Suggs DR [address] / [facility] [address] All A agencies which cover the area of patient's residence have been reviewed, either verbally or in writing, and patient/family have chosen the home health care agency noted Questions: Agency name and contact information: [facility] Patient location post discharge: home What services are requested: Physical Therapy Occupational Therapy Start date: Responsible MD post discharge contact info: PCP Inpatient Provider Contact Information: For questions regarding this summary or this inpatient hospitalization, please call the [facility] at [phone]. MONAE Lindquist 12/17/2020 documented in this encounter [...] you leave the hospital and remember to quill picking machine operator all prescriptions at the pharmacy. [...] RN - 12/17/2020 11:11 AM EDT Molly Rois discharged per provider order to home with [...] Sandoval PA - 12/17/2020 9:51 AM EDT [facility] ORTHOPAEDIC PROGRESS NOTE Admit Date: [...] referrals are placed. Patient requests referral to [facility]. PHONE: [phone] FAX: [phone] Expected date of discharge: 12/17/20 PT/OT CAREY Referral routed to the Outcomes Specialist for matching with agency/vendor and to provide [...] Evaluation Leval of Eval Complexity: Low - 56650 Diagnosis: S/P right total hip arthroplasty; Dr. [...] H25.13 ??? Plantar fasciitis M72.2 ??? Problem [id number] ??? Routine adult health maintenance Z00.00 ??? [...] IADLs: Dressing Dressing: Lower Body, Upper Body Survey Research Manager Top: Modified Independent Underwear: Supervision, Verbal [...] Clinical Decision Making Complexity Score: Low - 62110 Rola Kaufman OT 12/16/2020 Occupational Therapy Rehabilitation [...] turn level surfaces using a FWW at [facility] Comments: Sit / Stand: Supervision, Assist of 1 Assistive Equipment: FWW Surfaces Used: bed Stairs: Assist of 1, Contact Guard Assistive Equipment: FWW Number of Stairs: 4 x 6 inch at [facility] using BUE handrails ( presented for education [...] x5 Hip Abduction / Adduction -- Ankle Diboll x5 Seated Hip Flexion -- Knee Flexion [...] good functional mobility using a FWW at [facility] and is safe to discharge home with [...] Diversional Activities: smartphone television Pain Management Interventions: uxwrtw-ieo-ymfnr dosing utilized cold applied Problem: Postoperative Nausea [...] care provider on file: Estee Diaz MD [phone] Advance Directive on file and Code Status: <no information>, Attempt Cardiopulmonary Resuscitation - Inpatient If AD's have not been completed Medhat would be surrogate decision maker per [place] surrogate decision making law. (Only good for 180 days) Any patient receiving care at [facility] must abide by [place] law. The hierarchy for surrogate decision making [...] (i) The agent with financial power of intellectual property paralegal or a conservator appointed in accordance with RSA 464-A. (j) The guardian of the patient???s estate. Patient???s Functional Status:Pt states she is independent with all adls. She drives Living Situation:lives with in a 2 story home but living area all on first floor. 2 cats 3 DIOGENES Has fww [address] [facility] [address] Supports:family BH/Substance use: per pt Denies any [...] home via personal vehicle when medically ready. employee communications specialist/Principal Biostatistician will continue to follow patient???s progress and remain available if situation changes for coordination of care, psychosocial support and/or discharge planning. Office of Care Management CM: Debbie Mejia RN Op Note - Nish Chávez MD - 12/16/2020 10:11 AM EDT [facility] Operative Note [facility] [address] [place] [address] Patient Name: Molly Rios : [id number] MR#: [id number] Case Date: 12/16/2020 Surgery Start Time: 1010 Surgery Stop Time: 1056 Date: 12/16/2020 Surgeon: Nish Chávez MD Aquarium Specialist: MONAE Jessica Regulatory Compliance Specialist: Manjit Tineo CRNA Anesthesia: Right Pre-operative diagnosis: Right hip osteoarthritis, severe Body mass index is 19.16 kg/m??. Post-operative diagnosis: Same Surgical Procedure Performed: Injection right hip with marcaine 0.25% with epi, 4 mg morphine, ketorolac 30 mg, and Solu-Medrol (40 mg) into skin, subcutaneous and deep tissues, and joint space. Right total hip arthroplasty, anterior Hueter approach with [place] table Right hip intraoperative radiologic examination Findings: [...] performed. Patient was positioned supine on the [place] table, both feet and ankles were padded [...] liner was placed and impacted according to cell attendant's instructions. Any impinging osteophytes were removed. Attention [...] and laterally. At the same time, the medical record assistant leaned against the thigh to optimize [...] back to the hospital bed from the [place] table and boots wereremoved. No abduction pillow was placed. The patient returned to the recovery room in stable condition. The surgical training specialist, MONAE Jessica, worked under my direction for the duration of the operativesession. The medical record assistant meticulously prepped the operative site and maintained the best possible exposure of anatomy for the procedure for its duration. Implant Information: Implant Name Type Inv. Item Serial No. Silver Spray Worker Lot No. LRB No. Used Action SHELL ACET HIP 50MM POR 3 HOLE TI R3 ([id number]) (AutoReq) - [id number] IMPLANTS SHELL ACET HIP 50MM POR 3 HOLE TI R3 ([id number]) (AutoReq) [employer] NEPHEW - CLEMENTS NEPH [id number] Right 1 Implanted LINER ACET HIP [id number] 0D POLY R3 ([id number]) (AutoReq) - [id number] IMPLANTS LINER ACET HIP [id number] 0D POLY R3 ([id number]) (AutoReq) [employer]PHEW - CLEMENTS NEPH [id number] Right 1 Implanted STEM FEMORAL HIP SZ 3 PROX 135D POR CLLR STND OFST TI ([id number]) (AutoReq) - [id number] IMPLANTS STEMFEMORAL HIP SZ 3 PROX 135D POR CLLR STND OFST TI ([id number]) (AutoReq) [employer]W - CLEMENTS [id number] Right 1 Implanted HEAD FEMORAL HIP 32MM -3MM OFFSET 12/14 TPR ZIRCNM OXINIUM ([id number]) (AutoReq) - [id number] IMPLANTSHEAD FEMORAL HIP 32MM -3MM OFFSET 12/14 TPR ZIRCNM OXINIUM ([id number]) (AutoReq) [employer]W - CLEMENTS NEPH [id number] Right 1 Implanted TG 0 RG 0 [...] City/State/ZIP Code Phon e Number LABORATORY [address] [place], [place] [address] (ABNORMAL) Differential, Automated (12/17/2020 [...] Code Phon e Number LABORATORY [address] [place], [place] [address] (ABNORMAL) Hemogram (12/17/2020 6:59 AM [...] City/State/ZIP Code Phon e Number LABORATORY [address] [place], [place] [address] (ABNORMAL) Basic Metabolic Panel [...] City/State/ZIP Code Phon e Number LABORATORY [address] [place], [place] [address] XR Fluoro No Rad [...] Lundy RN) 0831 (Given - Provider: Jeanette Mckeno RN) 1 capsule, Oral, 2 TIMES DAILY, [...] bowel movement within 72 hours If multiple NE N bowel medications ordered, start with Miralax, [...]
Routine documented in this encounter Care Teams Manager Assurance Relationship Specialty Start Date End Date Estee Diaz MD PCP - General Family Medicine 10/28/20 [address] [place] [address] documented as of this encounter
--- OUTSIDE RECORDS SUMMARY | 2021-12-22 09:52 | XMS_ITS | Encounter Summary ---
:1945 Author Organization [facility] [place] [address] Care Team Providers Name Role Phone Estee Diaz MD Primary Care Provider Reason for Visit Reason Comments Public Health Screening Encounter Details Date Type Department Care Team Description 12/12/2020 Clinical Support Primary Care at [facility] for West preprocedure screening [place] [address] COVID-19 Social History Tobacco Use Types [...] Results COVID-19 PCR (12/12/2020 1:00 PM EDT) [facility] Method Time Signature SARS-CoV-2 Not [...] diagnosis of COVID-19 is performed using the [employer] S-CoV-2 Assay as authorized by the FDA Emergency Use Authorization (EUA). This EUA assay is intended for In-vitro Diagnostic (IVD) use with respiratory sp ecimens such as nasopharyngeal swabs collected from individuals during the ac mary phase of infection. This assay is performed based on the instructions for use provided by [employer], [employer]. and additional guidance provided by CDC and FDA. Testing is performed in the Clinical Genomics and Advanced Technolog y Laboratory within the Department of Pathology and Laboratory Medicine at [facility], certified under the Clinical Laboratory Improvement Amendments [...] management guidance information are available at e [facility] Coronavirus Disease 2019 (COVID-19) webpage under Information fo r Healthcare Professionals (https://www.cdc.gov/coronavirus/2019-nc ov/hcp/index.html) Additional information about this and ot her EUA tests can be found in provider and patient fact sheets at the following FDA website: https://www.fda.gov/medical-devices/gsxnoobztvh-hxpwrwq-7456-ctepc-46-itodjxjvn- kei-ovboeoeptynvoe-nattzrt-devices/tqgvv-vpszfqgcfog-rjcj SARS-Cov-2 RNA Source JANITORIAL MANAGER Swab [facility] Specimen (Source) Anatomical Collection Method Collection Time Re ceived Time Location / / Volume Laterality Nasopharyngeal Swab 12/12/2020 1:00 12/12 PM EDT 5:42 PM EDT Comment: Symptoms->Asymptomatic Resulting Agency Comment Spec In Lab Jason Escalante MD MICROBIOLOGY - GENERAL ORDER VON Performing Organization Address City/State/[place] [address] documented in this encounter Visit Diagnoses Diagnosis Encounter for preprocedure screening lab oratory testing for COVID-19 documented in this encounter Care Teams Transport Corps Officer Relationship Specialty Start Date End Date Estee Diaz MD PCP - General Family Medicine 10/28/20 [address] [place] [address] documented as of this encounter
--- OUTSIDE RECORDS SUMMARY | 2021-12-22 09:52 | XMS_ITS | Encounter Summary ---
:1945 Author Organization [facility] [place] [address] Care Team Providers Name Role Phone Unavailable Primary Care Provider Unavailable Encounter Details Date Type Department Care Team Description 05/22/2020 Ancillary Procedure Radiology at [facility] Nish Chávez MD [address] [place] [address] [address] [address] [phone] [place], [place] [address] Social History Tobacco Use Types [...] Address City/State/ZIP Code Phon e Number [place], [place] documented in this encounter Visit Diagnoses Not on filedocumented in this encounter
--- OUTSIDE RECORDS SUMMARY | 2021-12-22 09:52 | XMS_ITS | Encounter Summary ---
:1945 Author Organization [facility] [place] [address] Care Team Providers Name Role Phone Estee [...] Expiration Date Visits Requ ested Visits Authorized [id number] 1 1 Encounter Details Date Type Department Care Team Description 12/16/2020 Anesthesia Event Operating Room William Leger D, Day LAMP SHADE JOINER [address] [place] [address] ANESTHESIOLOGY [phone] [place], [place] [address] (Wo rk) Anesthesia Record Procedure Summary Procedure Name Responsible Anesthesia Start Anesthesia Stop Time Anesthesiologist Time TOTAL HIP Manjit Tineo LAMP SHADE JOINER 12/16/20 0938 12/16/20 1 100 ARTHROPLASTY, ANTERIOR [...] Schmidt RN Bagl ey, HARMAN Hernandez right; wjij-jfz-ujgbna catheter system; Anatomical Landmarks; 20 gauge; FY; [...] Pain Level 0 12/16/20 1224 Patient Location: PACU/[facility] Level of Consciousness: Awake and Alert [...] attempt s. ~~~~~~~~~~~~~~~~~~~~~~~~~~~~~~~~~~~~~~~~ ~~~~~~~~~~~~~~~~~~~~ Manjit Tineo CRNA NICKEL PLANT OPERATOR [facility] documented in this encounter Visit [...] Routine documented in this encounter Care Teams Wet Process Operator Relationship Specialty Start Date End Date Estee Diaz MD PCP - General Family Medicine 10/28/20 [address] [place] [address] documented as of this encounter
--- OUTSIDE RECORDS SUMMARY | 2021-12-22 09:52 | XMS_ITS | Encounter Summary ---
:1945 Author Organization [facility] [place] [address] Care Team Providers Name Role Phone Estee Diaz MD Primary Care Provider Encounter Details Date Type Department Care Team Description 12/29/2020 Telephone Orthopaedics at [facility] Robert Genao, RN [address] [place] [address] Social History Tobacco Use Types Packs/Day [...] on filedocumented in this encounter Care Teams Office Services Specialist Relationship Specialty Start Date End Date Estee Diaz MD PCP - General Family Medicine 10/28/20 [address] [place] [address] documented as of this encounter
--- OUTSIDE RECORDS SUMMARY | 2021-12-22 09:52 | XMS_ITS | Encounter Summary ---
:1945 Author Organization [facility] [place] [address] Care Team Providers Name Role Phone Estee Diaz MD Primary Care Provider Encounter Details Date Type Department Care Team Description 12/09/2020 Telephone Pre-Admission Mary hussein at [facility] [place] [address] Social History Tobacco Use Types Packs/Day [...] in this encounter Care Teams Director Of Career Resources Relationship Specialty Start Date End Date Estee Diaz MD PCP - General Family Medicine 10/28/20 [address] [facility] [place] [address] documented as of this encounter
--- OUTSIDE RECORDS SUMMARY | 2021-12-22 09:52 | XMS_ITS | Encounter Summary ---
:1945 Author Organization [facility] [place] [address] Care Team Providers Name Role Phone Estee Diaz MD Primary Care Provider Reason for Referral Physical Therapy (Routine) - Closed Specialty Diagnoses / Procedures Referred By Contact Refer red To Contact Diagnoses Primary osteoarthritis of right hip Pain in right hip Status post right hip replacement Nish Chávez MD Physical Therapy, [facility] [address] [place] [address] [place] [address] ,[facility] [address] [place] [address] Phone: Fax: Referral ID Status Reason Start Date Expiration Date Visits V isits Requested Authorized [id number] Closed Evaluate and 12/23/2020 06/21/2021 12 12 Treat Encounter Details Date Type Department Care Team Description 12/23/2020 Orders Only Orthopaedics at Nish Herrera, Stat post right hip replacement (Primary Dx); Brett Pena MD Primary osteoarthritis of right hip; [address] [place] [address] [phone] [place] [address] Social History Tobacco Use Types Packs/Day Years [...] thigh documented in this encounter Care Teams Fraternity House Cook Relationship Specialty Start Date End Date Estee Diaz MD PCP - General Family Medicine 10/28/20 [address] [place] [address] documented as of this encounter
--- OUTSIDE RECORDS SUMMARY | 2021-12-22 09:52 | XMS_ITS | Encounter Summary ---
:1945 Author Organization [facility] [place] [address] Care Team Providers Name Role Phone Estee Diaz MD Primary Care Provider Reason for Visit Reason Onset Date Comments Follow-up 12/22/2020 low grade fever Encounter Details Date Type Department Care Team Description 12/22/2020 Telephone Orthopaedics at [facility] ow-up (low grade West Becky RN fever) [address] [place] [address] Social History Tobacco Use Types Packs/Day [...] AM Caller: Molly Rios 1945 Telephone Information: [phone] (home) Problem/Question: Patient contacted clinic relaying that [...] filedocumented in this encounter Care Teams Social Media Coordinator Relationship Specialty Start Date End Date Etsee Diaz MD PCP - General Family Medicine 10/28/20 [address] [place] [address] documented as of this encounter
--- OUTSIDE RECORDS SUMMARY | 2021-12-22 09:52 | XMS_ITS | Encounter Summary ---
:1945 Author Organization [place] [address] Care Team Providers Name Role Phone Estee Diaz MD Primary Care Provider Encounter Details Date Type Department Care Team Description 11/25/2020 TH Visit Orthopaedics at [facility] [place] osteoarthritis (TeleHealth) [place] Becky Schmidt RN of right hip [address] [place] [phone] Social History Tobacco Use Types Packs/Day Years [...] thigh documented in this encounter Care Teams Administrative Court Justice Relationship Specialty Start Date End Date Estee Diaz MD PCP - General Family Medicine 10/28/20 [address] [place] [address] documented as of this encounter
--- OUTSIDE RECORDS SUMMARY | 2021-12-22 09:52 | XMS_ITS | Encounter Summary ---
:1945 Author Organization [facility] [place] [address] Care Team Providers Name Role Phone Estee Diaz MD Primary Care Provider Encounter Details Date Type Department Care Team Description 10/31/2020 Notes Only Orthopaedics at [facility] Nish Chávez [place] [address] [place] [address] [phone] (Wo rk) Social History Tobacco Use Types [...] [facility]. - The consent was reviewed [...] Kineret (anakinra), Rituxan (rituximab). - Items to warehouse order picker and have at home for use [...] number to reach you at after surgery: [phone] - You may shower the day after [...] on filedocumented in this encounter Care Teams Agricultural Produce Packer Relationship Specialty Start Date End Date Estee Diaz MD PCP - General Family Medicine 10/28/20 [address] [place] [address] documented as of this encounter
--- OUTSIDE RECORDS SUMMARY | 2021-12-22 09:52 | XMS_ITS | Encounter Summary ---
:1945 Author Organization [facility] [place] [address] Care Team Providers Name Role Phone Kevin Miranda MD Primary Care Provider Reason for Visit Reason Onset Date Comments Follow-up 09/18/2020 Encounter Details Date Type Department Care Team Description 09/18/2020 Telephone Orthopaedics at [facility] Robert Floyd, RN Follow-up 10 [place] [address] Social History Tobacco Use Types Packs/Day Years Used Date Former Smoker Quit: 1988 Smokeless Tobacco: Never Used Sex Assigned at Date Recorded Not on file documented as of this encounter Miscellaneous Notes Telephone Encounter - Robert Genao, RN - 09/18/2020 12:36 PM EDT Telephone Call 09/18/2020 12:37 PM Caller: Molly Rios 1945 Telephone Information: [phone] (home) Problem/Question: Patient was placed on Meloxicam [...] on filedocumented in this encounter Care Teams Mailing Manager Relationship Specialty Start Date End Date Kevin Miranda MD PCP - General Family Medicine 06/30/20 10/27/[address] [place] [address] documented as of this encounter
--- OUTSIDE RECORDS SUMMARY | 2021-12-22 09:52 | XMS_ITS | Encounter Summary ---
:1945 Author Organization [facility] [place] [address] Care Team Providers Name Role Phone Estee Diaz MD Primary Care Provider Reason for Visit Reason Onset Date Comments Follow-up 11/25/2020 Encounter Details Date Type Department Care Team Description 11/25/2020 Telephone Orthopaedics at [facility] Robert Genao, [place] [address] Social History Tobacco Use Types Packs/Day [...] on filedocumented in this encounter Care Teams Facsimile Operator Relationship Specialty Start Date End Date Estee Diaz MD PCP - General Family Medicine 10/28/20 [address] [place] [address] documented as of this encounter
--- OUTSIDE RECORDS SUMMARY | 2021-12-22 09:52 | XMS_ITS | Encounter Summary ---
:1945 Author Organization [facility] [place] [address] Care Team Providers Name Role Phone Kevin Miranda MD Primary Care Provider Encounter Details Date Type Department Care Team Description 07/01/2020 Abstract Orthopaedics at [facility] Katie, Francesca Marvin, [facility] [address] [place] [address] Social History Tobacco Use Types Packs/Day [...] on filedocumented in this encounter Care Teams Tubular Stock Glass Bulb Machine Former Relationship Specialty Start Date End Date Kevin Miranda MD PCP - General Family Medicine 06/30/20 10/27/20 [address] [place] [id number] documented as of this encounter
--- OUTSIDE RECORDS SUMMARY | 2021-12-22 09:52 | XMS_ITS | Encounter Summary ---
:1945 Author Organization [facility] [place] [address] Care Team Providers Name Role Phone Estee [...] Expiration Date Visits Requ ested Visits Authorized [id number] 1 1 Encounter Details Date Type Department Care Team Description 12/16/2020 Ancillary Procedure Radiology Xray at [facility] [place] [address] Social History Tobacco Use Types Packs/Day [...] on filedocumented in this encounter Care Teams Operations Developer Relationship Specialty Start Date End Date Estee Diaz MD PCP - General Family Medicine 10/28/20 [address] [place] [address] documented as of this encounter
--- OUTSIDE RECORDS SUMMARY | 2021-12-22 09:52 | XMS_ITS | Encounter Summary ---
:1945 Author Organization [facility] [place] [address] Care Team Providers Name Role Phone Estee Diaz MD Primary Care Provider Encounter Details Date Type Department Care Team Description 10/31/2020 Laboratory Laboratory at [place] Primary osteoarthritis of right hip; Appointment [facility] Pain in right hip; [address] [place] [phone] Social History Tobacco Use Types Packs/Day Years [...] (10/31/2020 12:00 PM EDT) Analysis Performed At [facility] Time Signature T&S only valid [facility] at LABORATORY Comment: This Type and Screen result is only valid at the [facility] Specimen Anatomical Collection Method Collection Time Receive d Time (Source) Location / / Volume Laterality Blood 10/31/2020 12:00 10/31/2020 2:10 PM EDT PM EDT Resulting Agency Comment Spec In Lab Nish Chávez MD BLOOD BANK ORDERABLES Performing Organization Address [facility] Phon e Number [facility] LABORATORY [address] [place], [place] [address] Antibody Screen Gel (APD/NLH) (10/31/2020 12:00 PM EDT) Analysis Performed At [facility] Time Signature AB Screen Negative [facility] LABORATORY Specimen Anatomical Collection Method Collection Time Receive d Time (Source) Location / / Volume Laterality Blood 10/31/2020 12:00 10/31/2020 2:10 PM EDT PM EDT Resulting Agency Comment Spec In Lab Nish Chávez MD BLOOD BANK ORDERABLES Performing Organization Address [facility] Phon e Number [facility] LABORATORY [address] [place], [place] [address] ABORh type Gel (APD/NLH) (10/31/2020 12:00 PM EDT) [facility] Method Time Signature Expires at 11/03/2020 3168 on: LABORATORY ABORh Type O Pos LABORATORY Specimen Anatomical Collection Method Collection Time Receive d Time (Source) Location / / Volume Laterality Blood 10/31/2020 12:00 10/31/2020 2:10 PM EDT PM EDT Resulting Agency Comment Spec In Lab Nish Chávez MD BLOOD BANK ORDERABLES Performing Organization Address City/State/ZIP Code Phon e Number LABORATORY [address] [place], [place] [address] (ABNORMAL) Differential, Automated (10/31/2020 12:00 PM EDT) [facility] Method Time Signature Neutrophils % 56.5 [...] Chávez MD HEMATOLOGY ORDERABLES Performing Organization Address City/[facility]/ZIP Code Phon e Number LABORATORY [address] [place], [place] [address] (ABNORMAL) Hemogram (10/31/2020 12:00 [...] Comment Spec In Lab Authorizing Provider Result Rcahel Chávez MD HEMATOLOGY ORDERABLES Performing Organization Address City/State/ZIP Code Phon e Number LABORATORY [address] [place], [place] [address] Staph aureus/MRSA Culture Screen Nasal (10/31/2020 12:00 PM EDT) Component Value Ref Test Analysis Performed At [facility]olo [facility] Method Time Signature Staphylococcus No Staphylococcus BLANCA Screening Culture aureus isolated [facility] LABORATORY Specimen Anatomical Collection Method Collection Time Receive d Time (Source) Location / / Volume Laterality Nasal 10/31/2020 12:00 10/31/2020 4:41 PM EDT PM EDT Resulting Agency Comment Spec In Lab Nish Chávez MD MICROBIOLOGY - GENERAL ORDER VON Performing Organization Address City/State/[place] [address] (ABNORMAL) Comprehensive metabolic panel [...] EDT Resulting Agency Comment Spec In Lab Nsih Chávez MD CHEMISTRY ORDERABLES Performing Organization Address City/State/ZIP Code Phon e Number [facility] [address] [employer] [place], [place] [address] documented in this encounter Visit Diagnoses Diagnosis Primary osteoarthritis of right hip Primary localized osteoarthrosis, pelvic region and thigh Pain in right hip Pain in joint, pelvic region and thigh Pre-op testing Preoperative examination, unspecified documented in this encounter Care Teams Baseball Scout Relationship Specialty Start Date End Date Estee Diaz MD PCP - General Family Medicine 10/28/20 [address] [place] [address] documented as of this encounter
--- OUTSIDE RECORDS SUMMARY | 2021-12-22 09:52 | XMS_ITS | Encounter Summary ---
:1945 Author Organization [facility] [place] [address] Care Team Providers Name Role Phone Estee Diaz MD Primary Care Provider Encounter Details Date Type Department Care Team Description 12/11/2020 Orders Only Primary Care at [facility]ail[facility] Schmidt, En counter for RMA preprocedure screening [place] [phone] COVID-19 Social History Tobacco Use Types [...] Results COVID-19 PCR (12/12/2020 1:00 PM EDT) [facility] Method Time Signature SARS-CoV-2 Not Detected Not Detected [facility] LAB[facility] Comment: This result should be [...] diagnosis of COVID-19 is performed using the [employer] S-CoV-2 Assay as authorized by the FDA Emergency Use Authorization (EUA). This EUA assay is intended for In-vitro Diagnostic (IVD) use with respiratory sp ecimens such as nasopharyngeal swabs collected from individuals during the ac big lagoon phase of infection. This assay is performed based on the instructions for use provided by [employer] and additional guidance provided by CDC and FDA. Testing is performed in the Clinical Genomics and Advanced Technolog y Laboratory within the Department of Pathology and Laboratory Medicine at [facility], certified under the Clinical Laboratory Improvement [...] fact sheets at the following FDA website: https://www.fda.gov/medical-devices/fnmfirplxvg-gzvkjdv-8894-vmtxc-40-cqkbyatah- wua-yrofbvyiklukjz-rydailh-devices/juuua-pyqwychknne-lpcn SARS-Cov-2 RNA Source AEROSPACE ENGINEER Swab [facility] LABORATORY Specimen (Source) Anatomical Collection Method Collection Time Re ceived Time Location / / Volume Laterality Nasopharyngeal Swab 12/12/2020 1:00 12/12 PM EDT 5:42 PM EDT Comment: Symptoms->Asymptomatic Resulting Agency Comment Spec In Lab Jason Escalante MD MICROBIOLOGY - GENERAL ORDER VON Performing Organization Address City/State/[place] [address] documented in this encounter Visit Diagnoses Diagnosis Encounter for preprocedure screening lab oratory testing for COVID-19 documented in this encounter Care Teams Press Leader Relationship Specialty Start Date End Date Estee Diaz MD PCP - General Family Medicine 10/28/20 [address] [place] [address] documented as of this encounter
--- OUTSIDE RECORDS SUMMARY | 2021-12-22 09:52 | XMS_ITS | Encounter Summary ---
:1945 Author Organization [facility] Address [address] [place] [address] Care Team Providers Name Role Phone Kevin Miranda MD Primary Care Provider Reason for Visit Reason Comments Follow-up discuss hip surgery Encounter Details Date Type Department Care Team Description 10/16/2020 Office Visit Orthopaedics at [facility] chanteric bursitis of left hip; MONAE Summers Primary osteoarthritis of right hip; [address] [employer] Pain in right hip; [place], [place] [address] Gluteal tendinitis of left buttock; [phone] [place] [address] It band syndrome, left [phone] Social History Tobacco Use Types Packs/Day Years [...] years according to accelerated agingsimulation by the hot box checker. Considering the apparent impact on her lifestyle [...] total hip arthroplasty. Please refer to the [place] [employer] website at [email or web address], [...] NAME: Molly Rios AGE: 75 y.o. MR#: [id number] DATE OF VISIT: 10/16/2020 Referring Provider: Kevin [...] total hip arthroplasty. Please refer to the [place] [employer] website at [email or web address], [...] hip arthroplasty direct anterior approach CPT Codes: 76123 -Total hip arhtroplasty Equipment/Implants: Equipment Required: CLEMENTS [...] left documented in this encounter Care Teams Vice President Quality Improvement Relationship Specialty Start Date End Date Kevin Miranda MD PCP - General Family Medicine 06/30/20 10/27/[address] [place] [address] documented as of this encounter
--- OUTSIDE RECORDS SUMMARY | 2021-12-22 09:52 | XMS_ITS | Encounter Summary ---
:1945 Author Organization [place] [address] Care Team Providers Name Role Phone Kevin Miranda MD Primary Care Provider Encounter Details Date Type Department Care Team Description 07/02/2020 Orders Only Orthopaedics at N[facility] Her[facility], Pain in right hip Brett Pena MD (Primary Dx) [address] [place] [address] [phone] [place] [address] Social History Tobacco Use Types Packs/Day Years Used Date Former Smoker Smokeless Tobacco: Never Used Sex Assigned at Date Recorded Not on file documented as of this encounter Plan of Treatment Not on filedocumented as of this encounter Visit Diagnoses Diagnosis Pain in right hip - Primary Pain in joint, pelvic region and thigh documented in this encounter Care Teams Heat Treater Apprentice Relationship Specialty Start Date End Date Kevin Miranda MD PCP - General Family Medicine 06/30/20 10/27/20 [address] [place] [address] documented as of this encounter
--- OUTSIDE RECORDS SUMMARY | 2021-12-22 09:52 | XMS_ITS | Encounter Summary ---
:1945 Author Organization [facility] [place] [address] Care Team Providers Name Role Phone Estee Diaz MD Primary Care Provider Encounter Details Date Type Department Care Team Description 10/29/2020 Notes Only Orthopaedics at [facility] Katie, Francesca Marvin, [facility] [address] [place] [address] Social History Tobacco Use Types Packs/Day Years Used Date Former Smoker Quit: 1988 Smokeless Tobacco: Never Used Sex Assigned at Date Recorded Not on file documented as of this encounter Plan of Treatment Not on filedocumented as of this encounter Visit Diagnoses Not on filedocumented in this encounter Care Teams Curriculum Manager Relationship Specialty Start Date End Date Estee Diaz MD PCP - General Family Medicine 10/28/20 [address]oni [address]Y [address] [place] [address] documented as of this encounter
--- OUTSIDE RECORDS SUMMARY | 2021-12-22 09:52 | XMS_ITS | Encounter Summary ---
:1945 Author Organization [facility] Address [address] [address] Care Team Providers Name Role Phone Estee [...] Expiration Date Visits Requ ested Visits Authorized [id number] 1 1 Encounter Details Date Type Department Care Team Description 12/16/2020 - Hospital Encounter Med Surg Unit at Nish Chávez Sta tus post total 12/17/2020 APD replacement of right [address] [place], [place] [address] [address] [place], [place] [phone] [address] Social History Tobacco Use Types Packs/Day Years [...] medication that you were doing while at [facility]. Be sure to understand your pain medication plan before you leave the hospital and remember to warehouse order picker all prescriptions at the pharmacy. DVT [...] 11:30 AM Mari Sandoval PA Orthopaedics at [facility] Arrive at: [facility] Level 02/20/2021 1:00 PM Mari Sandoval PA Orthopaedics at [facility] Arrive at: [facility] Level Future Orders Complete By Expires Referral to Home Health - at DISCHARGE [[id number] CPT(R)] As directed Process Instructions: Scheduling Instructions: Comments: DOCUMENTATION FOR VNA SERVICES (INCLUDING THOSE PATIENTS WITH MEDICARE COVERAGE REQUIRING HOME VNA SERVICES AND/OR HOSPICE SERVICES) PATIENT'S LOCATION: Molly Rios [address] [place] [address] (home) Cell: Telephone Information: Ranch Cook's Name: Medhat/Self In discussion with the attending physician, it is certified that this patient is under their care and that they, or a Nurse Practitioner,Clinical Nurse specialist or Physician Business Transformation Consultant who is working directly with them, [...] for managing ADL's. HOME HEALTH CARE AGENCY: [facility] PHONE: [phone] FAX: [phone] Start of care: 24-48 hours post dc [...] [address] / [facility] [address] All A agencies which cover the area of patient's residence have been reviewed, either verbally or in writing, and patient/family have chosen the home health care agency noted Questions: Agency name and contact information: [facility] Patient location post discharge: home What services are requested: Physical Therapy Occupational Therapy Start date: Responsible MD post discharge contact info: PCP Inpatient Provider Contact Information: For questions regarding this summary or this inpatient hospitalization, please call the [facility] Orthopedic Office at [phone]. MONAE Lindquist 12/17/2020 documented in this encounter [...] you leave the hospital and remember to warehouse order picker all prescriptions at the pharmacy. DVT [...] PA - 12/17/2020 9:51 AM EDT [facility] ORTHOPAEDIC PROGRESS NOTE Admit Date: [...] referrals are placed. Patient requests referral to [facility] [employer]. PHONE: [phone] FAX: [phone] Expected date of discharge: 12/17/20 PT/OT CAREY Referral routed to the Underground [employer] Locator for matching with agency/vendor and to provide [...] Evaluation Leval of Eval Complexity: Low - 75022 Diagnosis: S/P right total hip arthroplasty; Dr. [...] H25.13 ??? Plantar fasciitis M72.2 ??? Problem [id number] ??? Routine adult health maintenance Z00.00 ??? Superficial bruising T14.8XXA ??? Traumatic closed nondisplaced fracture of acromial end of clavicle with delayed healing S42.036G ??? Varicose veins I83.90 ??? Vertigo R42 ??? S/P right total hip arthroplasty; Dr. hCávez 12/16/20 Z96.649 Chart reviewed, evaluation completed. Patient [...] IADLs: Dressing Dressing: Lower Body, Upper Body Piece Goods Clerk Top: Modified Independent Underwear: Supervision, Verbal Cues, [...] Clinical Decision Making Complexity Score: Low - 03684 Rola Kaufman OT 12/16/2020 Occupational Therapy Rehabilitation [...] turn level surfaces using a FWW at [facility] Comments: Sit / Stand: Supervision, Assist of 1 Assistive Equipment: FWW Surfaces Used: bed Stairs: Assist of 1, Contact Guard Assistive Equipment: FWW Number of Stairs: 4 x 6 inch at [facility] using BUE handrails ( presented for education [...] exercise review Ortho Exercises Row Name 12/16/20 165 Supine Heel Slide -- Gluteal Set x5 Quad Set x5 Hip Abduction / Adduction -- Ankle [place] x5 Seated Hip Flexion -- Knee Flexion [...] good functional mobility using a FWW at [facility] and is safe to discharge home with [...] Diversional Activities: smartphone television Pain Management Interventions: uxibwj-haw-puyod dosing utilized cold applied Problem: Postoperative Nausea [...] care provider on file: Estee Diaz MD [phone] Advance Directive on file and Code Status: <no information>, Attempt Cardiopulmonary Resuscitation - Inpatient If AD's have not been completed Med[employer] would be surrogate decision maker per [place] surrogate decision making law. (Only good for 180 days) Any patient receiving care at [facility] must abide by [place] law. The hierarchy for surrogate decision making [...] (i) The agent with financial power of title attorney or a conservator appointed in accordance with RSA 464-A. (j) The guardian of the patient???s estate. Patient???s Functional Status:Pt states she is independent with all adls. She drives Living Situation:lives with in a 2 story home but living area all on first floor. 2 cats 3 DIOGENES Has f[address] [facility] [address] Supports:family BH/Substance use: per pt Denies any [...] home via personal vehicle when medically ready. oil pipeline dispatcher/It Manager will continue to follow patient???s progress and remain available if situation changes for coordination of care, psychosocial support and/or discharge planning. Office of Care Management CM: Debbie Mejia RN Op Note - Nish Chávez MD - 12/16/2020 10:11 AM EDT [facility] Operative Note [facility] [address] [place] [address] Patient Name: Molly Rios : [id number] MR#: [id number] Case Date: 12/16/2020 Surgery Start Time: 1010 Surgery Stop Time: 1056 Date: 12/16/2020 Surgeon: Nish Chávez MD Business Transformation Consultant: MONAE Jessica Strategic Marketing Manager: Manjit Tineo CRNA Anesthesia: Right Pre-operative diagnosis: Right hip osteoarthritis, severe Body mass index is 19.16 kg/m??. Post-operative diagnosis: Same Surgical Procedure Performed: Injection right hip with marcaine 0.25% with epi, 4 mg morphine, ketorolac 30 mg, and Solu-Medrol (40 mg) into skin, subcutaneous and deep tissues, and joint space. Right total hip arthroplasty, anterior Hueter approach with [place] table Right hip intraoperative radiologic examination Findings: [...] performed. Patient was positioned supine on the [place] table, both feet and ankles were padded [...] was placed and impacted according to supervisor printing shop's instructions. Any impinging osteophytes were removed. Attention [...] and laterally. At the same time, the commercial lines account assistant leaned against the thigh to optimize [...] back to the hospital bed from the [place] table and boots wereremoved. No abduction pillow was placed. The patient returned to the recovery room in stable condition. The operating room surgical technologist, MONAE Jessica, worked under my direction for the duration of the operativesession. The commercial lines account assistant meticulously prepped the operative site and maintained the best possible exposure of anatomy for the procedure for its duration. Implant Information: Implant Name Type Inv. Item Serial No. Auto Suspension And Steering Mechanic Lot No. LRB No. Used Action SHELL ACET HIP 50MM POR 3 HOLE TI R3 ([id number]) (AutoReq) - [id number] IMPLANTS SHELL ACET HIP 50MM POR 3 HOLE TI R3 ([id number]) (AutoReq) [employer] - CLEMENTS NEPH [id number] Right 1 Implanted LINER ACET HIP [id number] 0D POLY R3 ([id number]) (AutoReq) - [id number] IMPLANTS LINER ACET HIP [id number] 0D POLY R3 ([id number]) (AutoReq) [employer] - [employer] NEPH [id number] Right 1 Implanted STEM FEMORAL HIP SZ 3 PROX 135D POR CLLR STND OFST TI ([id number]) (AutoReq) - [id number] IMPLANTS STEMFEMORAL HIP SZ 3 PROX 135D POR CLLR STND OFST TI ([id number]) (AutoReq) [employer] - CLEMENTS [id number] Right 1 Implanted HEAD FEMORAL HIP 32MM -3MM OFFSET 12/14 TPR ZIRCNM OXINIUM ([id number]) (AutoReq) - [id number] IMPLANTSHEAD FEMORAL HIP 32MM -3MM OFFSET 12/14 TPR ZIRCNM OXINIUM ([id number]) (AutoReq) [employer] - CLEMENTS NEPH [id number] Right 1 Implanted TG 0 RG 0 [...] Code Phon e Number LABORATORY [address] [place], [place] [address] (ABNORMAL) Differential, Automated (12/17/2020 [...] Code Phon e Number LABORATORY [address] [place], [place] [address] (ABNORMAL) Hemogram (12/17/2020 6:59 AM [...] City/State/ZIP Code Phon e Number LABORATORY 10 [place], [place] [address] (ABNORMAL) Basic Metabolic Panel [...] City/State/ZIP Code Phon e Number LABORATORY 10 [place], [place] [address] XR Fluoro No Rad [...] bowel movement within 72 hours If multiple [place] N bowel medications ordered, start with Miralax, [...]
Routine documented in this encounter Care Teams Slot Ambassador Relationship Specialty Start Date End Date Estee Diaz MD PCP - General Family Medicine 10/28/[address] [facility] 1 [place] [address] documented as of this encounter
--- OUTSIDE RECORDS SUMMARY | 2021-12-22 09:52 | XMS_ITS | Encounter Summary ---
:1945 Author Organization [facility] [place] [address] Care Team Providers Name Role Phone Estee Diaz MD Primary Care Provider Reason for Visit Reason Onset Date Comments Follow-up 11/25/2020 Encounter Details Date Type Department Care Team Description 11/25/2020 Telephone Orthopaedics at [facility] Robert [place] [address] Social History Tobacco Use Types Packs/Day Years Used Date Former Smoker Quit: 1988 Smokeless Tobacco: Never Used Sex Assigned at Date Recorded Not on file documented as of this encounter Miscellaneous Notes Telephone Encounter - Robert Genao RN - 11/25/2020 12:09 PM EDT Telephone Call 11/25/2020 12:10 PM Caller: Molly Rios 1945 Telephone Information: [phone] (home) Problem/Question: Patient is scheduled for right [...] on filedocumented in this encounter Care Teams Trouble Dispatcher Relationship Specialty Start Date End Date Estee Diaz MD PCP - General Family Medicine 10/28/20 [address] [place] [address] documented as of this encounter
--- OUTSIDE RECORDS SUMMARY | 2021-12-22 09:52 | XMS_ITS | Encounter Summary ---
:1945 Author Organization [facility] [place] [address] Care Team Providers Name Role Phone Estee Diaz MD Primary Care Provider Encounter Details Date Type Department Care Team Description 12/18/2020 Telephone Orthopaedics at [facility] Robert Genao, RN 10 [place] [address] Social History Tobacco Use Types Packs/Day [...] on filedocumented in this encounter Care Teams Mortising Machine Operator Relationship Specialty Start Date End Date Estee Diaz MD PCP - General Family Medicine 10/28/20 [address]oni [address] [place] [address] documented as of this encounter
--- OUTSIDE RECORDS SUMMARY | 2021-12-22 09:55 | XMS_ITS | Encounter Summary ---
:1945 Author Organization [facility] Address [address] [facility], [address] [place] [address] Care Team Providers Name Role Phone Kevin Miranda MD Primary Care Provider Encounter Details Date Type Department Care Team Description 02/26/2020 Orders Only [facility] actice Provider, MD Harsh [address] [place] [phone] Social History Tobacco Use Types Packs/Day Years [...] Visit Family Medicine Kevin Miranda MD [address] [place] [phone] (Wo rk) documented as of [...] on filedocumented in this encounter Care Teams Property Portfolio Officer Relationship Specialty Start Date End Date Kevin Miranda MD PCP - General Family Medicine 11/20/[address] [place] [address] documented as of this encounter
--- OUTSIDE RECORDS SUMMARY | 2021-12-22 09:55 | XMS_ITS | Encounter Summary ---
:1945 Author Organization [facility] Address [address] [facility], [address] [place] [address] Care Team Providers Name Role Phone Kevin Miranda MD Primary Care Provider Encounter Details Date Type Department Care Team Description 12/14/2019 Scan Document - View Kevin Trimble, in Chart Practice [address] [place] [address] [place], [place] [phone] Social History Tobacco Use Types Packs/Day Years [...] Visit Family Medicine Kevin Miranda MD [address] [place] [address] (Wo rk) documented as of this encounter Visit Diagnoses Not on filedocumented in this encounter Care Teams Buggy Ladle Tender Relationship Specialty Start Date End Date Kevin Miranda MD PCP - General Family Medicine 11/20/19 [address] [place] [address] documented as of this encounter
--- OUTSIDE RECORDS SUMMARY | 2021-12-22 09:55 | XMS_ITS | Encounter Summary ---
:1945 Author Organization [facility] Address [address] [facility], [address] [place] [address] Care Team Providers Name Role Phone Kevin Miranda MD Primary Care Provider Encounter Details Date Type Department Care Team Description 01/27/2021 Orders Only [facility] actice Provider, MD Harsh [address] [place] [address] [phone] Social History Tobacco Use Types Packs/Day Years [...] Visit Family Medicine Kevin Miranda MD [address] [place] [address] (Wo rk) documented as of this encounter Procedures Procedure Name Priority Date/Time Associated Diagnosis Comme nts MAMMOGRAPHY Routine 07/29/2020 documented in this encounter Results MAMMOGRAPHY (07/29/2020) Anatomical Region Laterality Modality Other Narrative This result has an attachment that is no t available. Historical Provider HEALTH MAINTENANCE documented in this encounter Visit Diagnoses Not on filedocumented in this encounter Care Teams Extension Course Coordinator Relationship Specialty Start Date End Date Kevin Miranda MD PCP - General Family Medicine 11/20/19 [address] [place] [address] documented as of this encounter
--- OUTSIDE RECORDS SUMMARY | 2021-12-22 09:55 | XMS_ITS | Encounter Summary ---
:1945 Author Organization [facility] Address [address] [facility], [address] [place] [address] Care Team Providers Name Role Phone Jada Laurie ANN Primary Care Provider Unavailable Encounter Details Date Type Department Care Team Description 04/13/2019 Telephone [facility] Kevin Crowe MD [facility] [place] [address] [place], [place] [address] [place] [address] [phone] (Wo rk) Social History Tobacco Use Types [...] AM at home). She is referred to [facility] ED for treatment and she agrees. ED called and case reported prior to her arrival. documented in this encounter Plan of Treatment Upcoming Encounters Date Type Specialty Care Team Description 04/19/2022 Office Visit Family Medicine Kevin Miranda MD [address] [facility] [place] [address] (Wo rk) documented as of this encounter Visit Diagnoses Not on filedocumented in this encounter Care Teams Sluice Tender Relationship Specialty Start Date End Date Laurie Elias NP PCP - General Family Medicine 03/02/1811/19/19 documented as of this encounter
--- OUTSIDE RECORDS SUMMARY | 2021-12-22 09:55 | XMS_ITS | Encounter Summary ---
:1945 Author Organization [facility] Address [address] [facility], [address] [place] [address] Care Team Providers Name Role Phone Laurie Elias TAX ASSISTANT Primary Care Provider Unavailable Encounter Details Date Type Department Care Team Description 05/02/2019 Scan Document - View Kevin Trimble, in Chart Practice [address] [place] [address] [place], [place] [phone] Social History Tobacco Use Types Packs/Day Years [...] Visit Family Medicine Kevin Miranda MD [address] [place] [address] (Wo rk) documented as of this encounter Visit Diagnoses Not on filedocumented in this encounter Care Teams Customer Agent Relationship Specialty Start Date End Date Laurie Elias, ANN PCP - General Family Medicine 03/02/1811/19/19 documented as of this encounter
--- OUTSIDE RECORDS SUMMARY | 2021-12-22 09:55 | XMS_ITS | Encounter Summary ---
:1945 Author Organization [facility] Address [address] [facility], [address] [place] [address] Care Team Providers Name Role Phone Kevin Miranda MD Primary Care Provider Encounter Details Date Type Department Care Team Description 09/10/2020 Scan Document - View [facility] Kevin Miranda, in Chart Practice [address] [place], [place] [address] [place], [place] [phone] Social History Tobacco Use Types Packs/Day Years [...] Visit Family Medicine Kevin Miranda MD [address] [place] [address] (Wo rk) documented as of this encounter Visit Diagnoses Not on filedocumented in this encounter Care Teams Recruiting Assistant Relationship Specialty Start Date End Date Kevin Miranda MD PCP - General Family Medicine 11/20/[address] [place] [address] documented as of this encounter
--- OUTSIDE RECORDS SUMMARY | 2021-12-22 09:55 | XMS_ITS | Encounter Summary ---
:1945 Author Organization [facility] Address [address] [facility], [address] [place] [address] Care Team Providers Name Role Phone Kevin Miranda MD Primary Care Provider Encounter Details Date Type Department Care Team Description 08/14/2020 Telephone [facility] Pr actice Hanh Kelly [place] [address] [place] [address] Social History Tobacco Use Types [...] Office Visit [place] [address] [place] [address] (Wo rk) documented as of this encounter Visit Diagnoses Not on filedocumented in this encounter Care Teams Otr [employer] Driver Relationship Specialty Start Date End Date Kevin Miranda MD PCP - General Family Medicine 11/20/19 1020 [place] [address] documented as of this encounter
--- OUTSIDE RECORDS SUMMARY | 2021-12-22 09:55 | XMS_ITS | Encounter Summary ---
:1945 Author Organization [facility] Address [address] [facility], [address] [place] [address] Care Team Providers Name Role Phone Laurie Elias NP Primary Care Provider Unavailable Reason for Visit Reason Comments colon abscess Auth/Cert Specialty Diagnoses / Procedures Referred By Contact Refer red To Contact Diagnoses Pericolonic abscess Procedures n/a Referral ID Status Reason Start Date Expiration Date Visits Requ ested Visits Authorized [id number] 1 1 Encounter Details Date Type Department Care Team Description 04/13/2019 - Hospital Encounter [facility] Castro MD [address] [place] [address] 04/14/2019 8 Nursing Unit Michele Watkins MD [address] [place] [address] [place] [phone] Social History Tobacco Use Types Packs/Day Years [...] medications: Gabriel Molly Schmidt Home Medication Instructions TRACIE:[id number] Printed on:04/14/19 4885 Medication Information b complex vitamins capsule Take [...] Center 06/11/2019 1:45 PM MD JANET Molina [facility] Yoan Owen MD 04/14/19 1:01 PM Associated [...] EST Molly Rios You were admitted to [facility] for acute diverticulitis with an [...] * FOLLOW-UP: Please call our office at [phone] with any questions. You do not need [...] best as you continue in your recovery. [facility] General Surgery team. documented in this [...] Lopez MD - 04/13/2019 1:19 PM EST Crane Crew Supervisor's ED Note Date: 04/13/19 Patient Name: Molly [...] 81, nl intervals, no STEMI [DW] 1636 resident director has evaluated patient. [DW] 1702 Plan to [...] following orders were created for panel order [place] draw. Procedure Abnormality Status --------- ------ Gold Top[[id number]] In process Gold Top[[id number]] In process Light Blue Top[[id number]] In process Lavender Top[[id number]] Red Top[[id number]] In process Please view results for these [...] 81, nl intervals, no STEMI [DW] 1636 resident director has evaluated patient. [DW] 1702 Plan to [...] medically cleared to Dc home without services ([facility] order placed for DC). DC paperwork gone [...] nausea and anorexia. Today she came to [facility] ER with a temp of 100.5F [...] Visit Family Medicine Kevin Miranda MD [address] [place] [address] (Wo rk) documented as of [...] (04/14/2019 6:03 AM EST) Analysis Performed At [facility] logist Time Signature C REACTIVE 28.5 (H) <10.0 mg/L 04/14/2019 [place] PROTEIN 9:10 AM [facility] LABORATORY Comment: This test should not be [...] Organization Address City/State/ZIP Code Phon e Number [facility] [address] [address] LABORATORY (ABNORMAL) CBC with Auto Differential (04/14/2019 6:03 AM EST) [facility] gist Method Time Signature WBC 3.43 (L) 4.00 to 04/14/2019 [place] 11.00 x 8:04 AM [facility] 10*3u/L LABORATORY 10*3/uL nRBC 0 0 - 0 04/14/2019 [place] /100 WBCs 8:04 [facility] LABORATORY RBC 3.95 3.90 to 04/14/2019 [place] 5.20 x 8:04 AM [facility] 10*6/uL LABORATORY 10*6/uL HGB 12.6 12.0 to 04/14/2019 [place] 16.0 g/dL 8:04 AM [facility] g/dL LABORATORY HCT 36.1 36.0% to 04/14/2019 [place] 46.0% % 8:04 AM [facility] LABORATORY MCV 91.4 80.0 to 04/14/2019 [place] 100.0 fL 8:04 [facility] fL LABORATORY MCH 31.9 26.0 - 04/14/2019 [place] 33.0 pg 8:04 [facility] LABORATORY MCHC 34.9 31.0 to 04/14/2019 [place] 37.0 g/dL 8:04 [facility] g/dL LABORATORY PLT 277 150 to 04/14/2019 [place] 350 x 8:04 AM [facility] 10*3u/l LABORATORY 10*3u/L RDW-CV 12.8 11.5 - 04/14/2019 [place] 14.5 % 8:04 AM [facility] LABORATORY Segmented % 55.6 30.0 - 04/14/2019 [place] 85.0 % 8:04 [facility] LABORATORY ABS Neutrophil 1.91 1.20 - 04/14/2019 [place] 9.30 8:04 [facility] 10*3/uL LABORATORY Lymphocytes % 26.5 15.0 - 04/14/2019 [place] 50.0 % 8:04 [facility] LABORATORY ABS Lymphocyte 0.91 0.60 - 04/14/2019 [place] 5.50 8:04 [facility] 10*3u/L LABORATORY Monocytes % 14.0 (H) 2.0 - 04/14/2019 [place] 12.0 % 8:04 [facility] LABORATORY Abs Monocyte 0.48 0.08 to 04/14/2019 [facility] 1.30 x 8:04 [facility] 10*3u/L LABORATORY 10*3u/L Eosinophils % 0.9 0.0 - 5.0 04/14/2019 [facility] % 8:04 [facility] LABORATORY ABS Eosinophils 0.03 0.00 to 04/14/2019 [place] 0.68 x 8:04 AM [facility] 10*3u/L LABORATORY 10*3u/L Basophil % 1.5 0.0 - 2.0 04/14/2019 [place] % 8:04 AM [facility] LABORAT[facility] ABS Basophils 0.05 0.00 - 04/14/2019 [place] 0.20 8:04 AM [facility] 10*3/uL LABORATORY IMM GRAN 1.5 (H) 0.0 - 1.0 04/14/2019 [place] % 8:04 AM [facility] LABORAT[facility] ABS IMM GRAN 0.05 0.00 - 04/14/2019 [place] 0.10 8:04 AM [facility] 10*3/uL LABORATORY Specimen Anatomical Collection Method Collection Time Receive d Time (Source) Location / / Volume Laterality Blood Venous blood / 04/14/2019 6:03 AM 020 7:12 Unknown EST AM EST Narrative [facility] LABORATORY - 8:04 AM EST Immature granulocyte [...] Organization Address City/State/ZIP Code Phon e Number [facility] [address] [address] LABORATORY (ABNORMAL) Basic metabolic panel (04/14/2019 6:03 AM [facility]) P athologist Signature Sodium 140 137 - 145 04/14/2019 [place] mmol/L 9:06 AM [facility] Potassium 4.0 3.5 - 5.1 04/14/2019 [place] mmol/L 9:06 AM [facility] CHLORIDE 105 98 - 107 04/14/2019 [place] mmol/L 9:06 AM [facility] LABOR[facility]ORY CARBON DIOXIDE, 26.0 22.0 - 04/14/2019 [place] TOTAL 30.0 9:06 [facility] mmol/L LABORATORY ANION GAP 9.0 6 - 14 04/14/2019 [place] 9:06 AM [facility] GLUCOSE 91 70 - 99 04/14/2019 [place] mg/dL 9:06 AM [facility] LAB[facility] BUN 6 (L) 7 - 17 04/14/2019 [place] mg/dL 9:06 AM [facility] LAB[facility] CREATININE 0.6 0.5 - 1.0 04/14/2019 [place] mg/dL 9:06 AM [facility] GFR >60 04/14/2019 [place] 9:06 AM [facility] Comment: eGFR Reference Range: ? > 60 mL/min/1.73 Sq meter In Americans the eGFR should be multiplied by 1.212. CALCIUM 8.9 8.3 - 10.3 mg/dL 04/14/2019 9:06 AM [facility] LABORATORY Specimen Anatomical Collection Method Collection Time Receive d Time (Source) Location / / Volume Laterality Blood Venous blood / 04/14/2019 6:03 AM 020 7:07 Unknown EST AM EST Michele Watkins MD LAB BLOOD ORDERABLES Performing Organization Address City/State/ZIP Code Phon e Number [address] [address] LABORATORY Blood culture (04/13/2019 3:53 PM EST) Patholo gist Method Time Signature Blood Culture No growth 5 04/18/2019 [place] days 4:02 PM [facility] Specimen Anatomical Collection Method / Collection Time Recei nancy Time (Source) Location / Volume Laterality Blood Venous blood / Venipuncture / 04/13/2019 3:53 04/13/19 20 3:58 Unknown Unknown PM EST PM EST Mitra Rocha MD LAB MICROBIOLOGY - GENERAL O RDERABLES Performing Organization Address City/State/ZIP Code Phon e Number [address] [address] LABORATORY Magnesium (04/13/2019 3:44 PM EST) P athologist Signature Magnesium 2.0 1.6 - 2.3 04/13/2019 [place] Blood mg/dL 7:49 PM [facility] Specimen Anatomical Collection Method / Collection Time Recei nancy Time (Source) Location / Volume Laterality Blood Venous blood / Venipuncture / 04/13/2019 3:44 04/13/19 20 3:58 Unknown Unknown PM EST PM EST Michele Watkins MD LAB BLOOD ORDERABLES Performing Organization Address City/[facility]/ZIP Code Phon e Number [address] [address] LABORATORY Phosphorus (04/13/2019 3:44 PM EST) P athologist Signature PHOSPHATE 4.0 2.5 - 4.5 04/13/2019 [place] mg/dL 7:49 PM EST HOSPITAL LABORATORY Specimen Anatomical Collection Method / Collection Time Recei nancy Time (Source) Location / Volume Laterality Blood Venous blood / Venipuncture / 04/13/2019 3:44 04/13/19 20 3:58 Unknown Unknown PM EST PM EST Michele Watkins MD LAB BLOOD ORDERABLES Performing Organization Address [facility]/ZIP Code Phon e Number [address] [address] LABORATORY (ABNORMAL) C-reactive protein (04/13/2019 3:44 PM EST) Analysis Performed At Patho logist Time Signature C REACTIVE 34.1 (H) <10.0 mg/L 04/13/2019 [place] PROTEIN 5:56 PM EST HOSPITAL LABORATORY Comment: [...] Organization Address City/State/ZIP Code Phon e Number [address] [address] LABORATORY Red Top (04/13/2019 3:44 PM EST) Specimen Anatomical Collection Method / Collection Time Recei nancy Time (Source) Location / Volume Laterality Blood Venous blood / Venipuncture / 04/13/2019 3:44 04/13/19 20 3:59 Unknown Unknown PM EST PM EST Mitra Rocha MD LAB BLOOD ORDERABLES Performing Organization Address City/State/ZIP Code Phon e Number [address] [address] LABORATORY Light Blue Top (04/13/2019 3:44 PM EST) Specimen Anatomical Collection Method / Collection Time Recei nancy Time (Source) Location / Volume Laterality Blood Venous blood / Venipuncture / 04/13/2019 3:44 04/13/19 20 3:59 Unknown Unknown PM EST PM EST Mitra Rocha MD LAB BLOOD ORDERABLES Performing Organization Address City/[facility]/ZIP Code Phon e Number [address] [address] LABORATORY Gold Top (04/13/2019 3:44 PM EST) Specimen Anatomical Collection Method / Collection Time Recei nancy Time (Source) Location / Volume Laterality Blood Venous blood / Venipuncture / 04/13/2019 3:44 04/13/19 20 3:58 Unknown Unknown PM EST PM EST Mitra Rocha MD LAB BLOOD ORDERABLES Performing Organization Address City/[facility]/ZIP Code Phon e Number [address] [address] LABORATORY Gold Top (04/13/2019 3:44 PM EST) Specimen Anatomical Collection Method / Collection Time Recei nancy Time (Source) Location / Volume Laterality Blood Venous blood / Venipuncture / 04/13/2019 3:44 04/13/19 20 3:58 Unknown Unknown PM EST PM EST Mitra Rocha MD LAB BLOOD ORDERABLES Performing Organization Address City/[facility]/ZIP Code Phon e Number [address] [address] LABORATORY Blood culture (04/13/2019 3:44 PM EST) [facility] gist Method Time Signature Blood Culture No [...] Organization Address City/State/ZIP Code Phon e Number [address] [address] LABORATORY Lipase (04/13/2019 3:44 PM EST) athologist Signature LIPASE 65 23 - 300 04/13/2019 [place] U/L 4:14 PM [facility] Specimen Anatomical Collection Method / Collection Time Recei nancy Time (Source) Location / Volume Laterality Blood Venous blood / Venipuncture / 04/13/2019 3:44 04/13/19 20 3:58 Unknown Unknown PM EST PM EST Mitra Rocha MD LAB BLOOD ORDERABLES Performing Organization Address City/State/ZIP Code Phon e Number [place] [address] LABORATORY Hepatic function panel (04/13/2019 3:44 PM EST) athologist [facility] PROTEIN TOTAL 6.8 6.3 - 8.2 04/13/2019 [place] g/dL 4:14 PM [facility] ALBUMIN 3.7 3.5 - 5.0 04/13/2019 [facility] g/dL 4:14 PM [facility] Bilirubin Total 0.4 0.2 - 1.3 04/13/2019 [facility] mg/dL 4:14 PM [facility] BILIRUBIN DIRECT 0.2 0.0 - 0.4 04/13/2019 [facility] mg/dL 4:14 PM [facility] AST (SGOT) 32 15 - 46 04/13/2019 [facility] U/L 4:14 PM [facility] ALT 41 13 - 69 04/13/2019 [place] U/L 4:14 PM [facility] ALKALINE 97 38 - 126 04/13/2019 [facility] PHOSPHATASE U/L 4:14 PM [facility] Specimen Anatomical Collection Method / Collection Time Recei nancy Time (Source) Location / Volume Laterality Blood Venous blood / Venipuncture / 04/13/2019 3:44 04/13/19 20 3:58 Unknown Unknown PM EST PM EST Mitra Rocha MD LAB BLOOD ORDERABLES Performing Organization Address City/State/ZIP Code Phon e Number [address] [address] LABORATORY (ABNORMAL) Basic metabolic panel w/GFR (04/13/2019 3:44 PM EST) Analysis Performed At Patho logist Time Signature Sodium 134 (L) 137 - 145 04/13/2019 [place] mmol/L 4:14 PM [facility] Potassium 4.3 3.5 - 5.1 04/13/2019 [place] mmol/L 4:14 PM [facility] LAB[facility] CHLORIDE 100 98 - 107 04/13/2019 [place] mmol/L 4:14 PM [facility] CARBON DIOXIDE, 24.0 22.0 - 04/13/2019 [place] TOTAL 30.0 4:14 PM [facility] mmol/L LABORATORY ANION GAP 10.0 6 - 14 04/13/2019 [place] 4:14 PM [facility] GLUCOSE 117 (H) 70 - 99 04/13/2019 [place] mg/dL 4:14 PM [facility] BUN 10 7 - 17 04/13/2019 [place] mg/dL 4:14 PM [facility] CREATININE 0.5 0.5 - 1.0 04/13/2019 [place] mg/dL 4:14 PM [facility] GFR >60 04/13/2019 [place] 4:14 PM [facility] Comment: eGFR Reference Range: ? > 60 mL/min/1.73 Sq meter In Americans the eGFR should be multiplied by 1.212. CALCIUM 9.5 8.3 - 10.3 mg/dL 04/13/2019 4:14 PM [facility] LAB[facility] Specimen Anatomical Collection Method / Collection Time Recei nancy Time (Source) Location / Volume Laterality Blood Venous blood / Venipuncture / 04/13/2019 3:44 04/13/19 20 3:58 Unknown Unknown PM EST PM EST Mitra Rocha MD LAB BLOOD ORDERABLES Performing Organization Address City/State/ZIP Code Phon e Number [facility] [address] [place] [address] LABORATORY (ABNORMAL) CBC auto differential (04/13/2019 3:43 PM EST) Patholo gist Method Time Signature WBC 5.55 4.00 to 04/13/2019 [place] 11.00 x 4:10 PM [facility] 10*3u/L LABORATORY 10*3/uL nRBC 0 0 - 0 04/13/2019 [place] /100 WBCs 4:10 PM [facility] LABORAT[facility] RBC 4.37 3.90 to 04/13/2019 [place] 5.20 x 4:10 PM [facility] 10*6/uL LABORATORY 10*6/uL HGB 13.9 12.0 to 04/13/2019 [place] 16.0 g/dL 4:10 PM [facility] g/dL LABORATORY HCT 39.5 36.0% to 04/13/2019 [place] 46.0% % 4:10 PM [facility] LABORATORY MCV 90.4 80.0 to 04/13/2019 [place] 100.0 fL 4:10 PM [facility] fL LABORATORY MCH 31.8 26.0 - 04/13/2019 [place] 33.0 pg 4:10 PM [facility] LABORATORY MCHC 35.2 31.0 to 04/13/2019 [place] 37.0 g/dL 4:10 PM [facility] g/dL LABORATORY PLT 283 150 to 04/13/2019 [place] 350 x 4:10 PM [facility] 10*3u/l LABORATORY 10*3u/L RDW-CV 12.8 11.5 - 04/13/2019 [place] 14.5 % 4:10 PM [facility] LABORATORY Segmented % 77.6 30.0 - 04/13/2019 [place] 85.0 % 4:10 PM [facility]ORAT[facility] ABS Neutrophil 4.31 1.20 - 04/13/2019 [place] 9.30 4:10 PM [facility] 10*3/uL LABORATORY Lymphocytes % 8.5 (L) 15.0 - 04/13/2019 [place] 50.0 % 4:10 PM [facility] ABS Lymphocyte 0.47 (L) 0.60 - 04/13/2019 [place] 5.50 4:10 PM [facility] 10*3u/L LABORATORY Monocytes % 12.6 (H) 2.0 - 04/13/2019 [place] 12.0 % 4:10 PM [facility] LABORATORY Abs Monocyte 0.70 0.08 to 04/13/2019 [place] 1.30 x 4:10 PM [facility] 10*3u/L LABORATORY 10*3u/L Eosinophils % 0.0 0.0 - 5.0 04/13/2019 [place] % 4:10 PM [facility] ABS Eosinophils 0.00 0.00 to 04/13/2019 [place] 0.68 x 4:10 PM [facility] 10*3u/L LABORATORY 10*3u/L Basophil % 0.9 0.0 - 2.0 04/13/2019 [place] % 4:10 PM [facility] ABS Basophils 0.05 0.00 - 04/13/2019 [place] 0.20 4:10 PM [facility] 10*3/uL LABORATORY IMM GRAN 0.4 0.0 - 1.0 04/13/2019 [place] % 4:10 PM [facility] LABORAT[facility] ABS IMM GRAN 0.02 0.00 - 04/13/2019 [place] 0.10 4:10 PM [facility] 10*3/uL LABORATORY Specimen Anatomical Collection Method / Collection Time Recei nancy Time (Source) Location / Volume Laterality Blood Venous blood / Venipuncture / 04/13/2019 3:43 04/13/19 20 3:58 Unknown Unknown PM EST PM EST Mitra Rocha MD LAB BLOOD ORDERABLES Performing Organization Address City/State/ZIP Code Phon e Number [facility] [address] [address] LABORATORY EKG (04/13/2019 3:42 PM EST) Specimen (Source) Anatomical Collection Method Collection Time Re ceived Time Location / / Volume Laterality 04/13/2019 3:42 PM EST Mitra Rocha MD ECG ORDERABLES Performing Organization Address City/State/ZIP Code Phon e Number [facility] [address] [facility] [place] [address] documented in this encounter Visit Diagnoses Diagnosis [...] Transfer Provider - Reason: Unreviewed Transfer Orders)2011 ([facility] Unhold - Provider: Micheal Britt MD)2100 (Not [...] 1702 documented in this encounter Care Teams Vehicle Assembly Inspector Relationship Specialty Start Date End Date Laurie Elias NP PCP - General Family Medicine 03/02/1811/19/19 documented as of this encounter
--- OUTSIDE RECORDS SUMMARY | 2021-12-22 09:55 | XMS_ITS | Encounter Summary ---
:1945 Author Organization [facility] Address [address] [facility], [address] [place] [address] Care Team Providers Name Role Phone Kevin Miranda MD Primary Care Provider Encounter Details Date Type Department Care Team Description 07/16/2020 Scan Document - View [facility] Kevin Miranda, in Chart Practice [address] [place], [place] [id number] [place], [place] [phone] Social History Tobacco Use Types Packs/Day Years [...] Visit Family Medicine Kevin Miranda MD [address] [place] [address] (Wo rk) documented as of this encounter Visit Diagnoses Not on filedocumented in this encounter Care Teams Basketball Coach Relationship Specialty Start Date End Date Kevin Miranda MD PCP - General Family Medicine 11/20/[address] [place] [address] documented as of this encounter
--- OUTSIDE RECORDS SUMMARY | 2021-12-22 09:55 | XMS_ITS | Encounter Summary ---
:1945 Author Organization [facility] Address [address] [facility], [address] [place] [address] Care Team Providers Name Role Phone Kevin Miranda MD Primary Care Provider Encounter Details Date Type Department Care Team Description 07/09/2021 Telemedicine KaushikYadi Gary [facility] MONAE thigh, initial [address] Parul encounter (Primary Dx) [place] [address] [place], [place] [phone] Social History Tobacco Use Types Packs/Day Years [...] dark spotin the middle of the [place] on her right thigh, this looked similar to previous tick bites that she and her have had. She never saw an actual tick but recalls feeling something (like a scratch) in the same area 3 days ago when she was walking around [place] [facility]. She did not think anything of [...] All questions answered. Telemedicine Communication method: Video ([employer]) The physical location of the patient: [facility] ([place], [place]) The physical location of the provider: [facility] office Patient's verbal consent was obtained [...] Visit Family Medicine Kevin Miranda MD [address] [place] [address] (Wo rk) documented as of this encounter Visit Diagnoses Diagnosis Tick bite of right thigh, initial encoun ter - Primary documented in this encounter Care Teams Machine Stuffer Automatic Relationship Specialty Start Date End Date Kevin Miranda MD PCP - General Family Medicine 11/20/19 1020 [place] [address] documented as of this encounter
--- OUTSIDE RECORDS SUMMARY | 2021-12-22 09:55 | XMS_ITS | Encounter Summary ---
:1945 Author Organization [facility] Address [address] [facility], [address] [place] [address] Care Team Providers Name Role Phone Kevin Miranda MD Primary Care Provider Reason for Referral Rehab (Routine) - Closed Specialty Diagnoses / Procedures Referred By Contact Refer red To Contact Physical Therapy Diagnoses Right hip pain Kevin Miranda MD [address] [place] [address] Referral ID Status Reason Start Date Expiration Date Visits V isits Requested Authorized [id number] Closed Specialty 02/18/2020 02/17/2021 1 1 Services Required Encounter Details Date Type Department Care Team Description 02/18/2020 Orders Only Kevin Trimble, h ip pain (Primary Practice MD Dx) [address] [place] [address] Social History Tobacco Use Types Packs/Day Years [...] Visit Family Medicine Kevin Miranda MD [address] [place], [place] [address] (Wo rk) Scheduled Referrals Name Type Priority Associated Order Schedule Diagnoses Ambulatory referral Outpatient Referral Routine Right hip pain 1 Occurrences to Physical Therapy starting 02/18/2020 until documented as of this encounter Visit Diagnoses Diagnosis Right hip pain - Primary Pain in joint, pelvic region and thigh documented in this encounter Care Teams Health Program Director Relationship Specialty Start Date End Date Kevin Miranda MD PCP - General Family Medicine 11/20/19 1020 [place] [address] documented as of this encounter
--- OUTSIDE RECORDS SUMMARY | 2021-12-22 09:55 | XMS_ITS | Encounter Summary ---
:1945 Author Organization [facility] Address [address] [facility], [address] [place] [address] Care Team Providers Name Role Phone Kevin Miranda MD Primary Care Provider Encounter Details Date Type Department Care Team Description 10/14/2020 Refill [facility] Pr Yessy Gee, [facility] [place] [address] [place] [address] [place], [place] [address] (Wo rk) Social History [...] Visit Family Medicine Kevin Miranda MD [address] [place] [address] (Wo rk) documented as of this encounter Visit Diagnoses Not on filedocumented in this encounter Care Teams Barrel Handler Relationship Specialty Start Date End Date Kevin Miranda MD PCP - General Family Medicine 11/20/19 1020 [place] [address] documented as of this encounter
--- OUTSIDE RECORDS SUMMARY | 2021-12-22 09:55 | XMS_ITS | Encounter Summary ---
:1945 Author Organization [facility] Address 330 [facility], [address] [place] [address] Care Team Providers Name Role Phone Laurie Elias OPEN PIT QUARRY SUPERVISOR Primary Care Provider Unavailable Encounter Details [...] Visit Family Medicine Kevin Miranda MD [address] [place] [address] (Wo rk) documented as of this encounter Visit Diagnoses Not on filedocumented in this encounter Care Teams Relationship Specialty Start Date End Date Laurie Elias NP PCP - General Family Medicine 03/02/1811/19/19 documented as of this encounter
--- OUTSIDE RECORDS SUMMARY | 2021-12-22 09:55 | XMS_ITS | Clinical Summary ---
:1945 Author Organization [facility] Address [address] [facility], [address] [place] [address] Care Team Providers Name Role Phone Kevin [...] pursue another opinion with Dr. Angel at [facility] for another anterior approach option. Continue diclofenac [...] lax and fiber regimen. F/u with Dr. Groman ([facility] gastroenterology) for routine f/u and colonoscopy. Lateral knee pain, left 06/24/2017 Radiculopathy, lumbar region 06/12/2017 Overview: Evaluated and followed by : [facility], R[facility], and [facility]. [...] Family Medicine Kevin Miranda MD [facility] [place], [place] [address] (Wo rk) Health Maintenance [...] / Group Dates BLUE CROSS BLUE CROSS [id number] 2013-Pres [phone] BLUE SHIELD MEDEX CLAIMS ent [phone] [place] [address] MEDICARE MEDICARE A&B [id number] 2013-Pre [phone] [address] Medicare sent [address] [place] [address] MEDICARE MEDICARE A&B [id number] 2013-Pre [phone] [address] Medicare sent [address] [place] [address] MEDICARE MEDICARE A&B [id number] 2013-Pres [phone] [address] Medicare ent [address] [place] [address] BLUE CROSS BLUE CROSS [id number] 2013-Pres [phone] BLUE SHIELD HMO BLUE ent [phone] [place] [address] [facility] [id number] 2020-Pres [phone] [address] Medi care [employer] ent [phone] [place] [address] Gabriel,Catherin Personal/Famil Self 1945 [address]Home) [place] [address] Gabriel,Catherin Personal/Famil Self 1945 [address] (Home) [place] [address] Gabriel,Catherin Personal/Famil Self 1945 [address] (Home) [place] [address] Gabriel,Catherin Personal/Famil Self 1945 [address] (Home) [place] [address] Gabriel,Catherin Personal/Famil Self 1945 [address] (Home) [place] [address] Gabriel,Catherin Personal/Famil Self 1945 [address] (Home) [place] [address] Gabriel,Catherin Personal/Famil Self 1945 [address] (Home) [place] [address] Gabriel,Catherin Personal/Famil Self 1945 [address] (Home) [place] [address] Gabriel,Catherin Personal/Famil Self 1945 [address] (Home) [place] [address] Gabriel,Catherin Personal/Famil Self 1945 [address] (Home) [place] [address] Garbiel,Catherin Personal/Famil Self 1945 [address] (Home) [place] [address] Gabriel,Catherin Personal/Famil Self 1945 [address] (Home) [place] [address] Gabriel,Catherin Personal/Famil Self 1945 [address] (Home) [place] [address] Gabriel,Catherin Personal/Famil Self 1945 [address] (Home) [place] [address] Gabriel,Catherin Personal/Famil Self 1945 [address] (Home) [place] [address] Gabriel,Catherin Personal/Famil Self 1945 [address] (Home) [place] [address] Gabriel,Catherin Personal/Famil Self 1945 [address] (Home) [place] [address] Gabriel,Catherin Personal/Famil Self 1945 [address] (Home) [place] [address] Gabriel,Catherin Personal/Famil Self 1945 [address] (Home) [place] [address] Gabriel,Catherin Personal/Famil Self 1945 [address]) [place] [id number] Gabriel,Catherin Personal/Famil Self 1945 [address] (Home) [place] [address] Gabriel,Catherin Personal/Famil Self 1945 [address] (Home) [place] [address] Gabriel,Catherin Personal/Famil Self 1945 [address] (Home) [place] [address] Gabriel,Catherin Personal/Famil Self 1945 [address] (Home) [place] [address] Gabriel,Catherin Personal/Famil Self 1945 [address]) [place] [id number] Gabriel,Catherin Personal/Famil Self 1945 [address] (Home) [place] [address] Gabriel,Catherin Personal/Famil Self 1945 [address] (Home) [place] [address] Gabriel,Catherin Personal/Famil Self 1945 [address] (Home) [place] [address] Gabriel,Catherin Personal/Famil Self 1945 [address] (Home) [place] [address] Gabriel,Catherin Personal/Famil Self 1945 [address] (Home) [place] [address] Gabriel,Catherin Personal/Famil Self 1945 [address] (Home) [place] [address] Gabriel,Catherin Personal/Famil Self 1945 [address] (Home) [place] [address] Gabriel,Catherin Personal/Famil Self 1945 [address] (Home) [place] [address] Gabriel,Catherin Personal/Famil Self 1945 [address] (Home) [place] [address] Gabriel,Catherin Personal/Famil Self 1945 [address] (Home) [place] [address] Gabriel,Catherin Personal/Famil Self 1945 [address] (Home) [place] [address] Gabriel,Catherin Personal/Famil Self 1945 [address] (Home) [place] [address] Gabriel,Catherin Personal/Famil Self 1945 [address] (Home) [place] [address] Gee Rios Personal/Famil Self 1945 [address] (Home) [place] [address] Gee Rios Personal/Famil Self 1945 [address] (Home) [place] [address] Gee Rios Personal/Famil Self 1945 [address] (Home) [place] [address] Gee Rios Personal/Famil Self 1945 [address] ([place]) [place] [address] Advance Directives Latest Code Status on File Code Status Date Activated Date Inactivated Comments Full Code 04/13/2019 5:03 PM 04/14/2019 5:14 PM Care Teams Cloth Grader Supervisor Relationship Specialty Start Date End Date Kevin Miranda MD PCP - General Family Medicine 11/20/[address] [place] [address]
--- OUTSIDE RECORDS SUMMARY | 2021-12-22 09:55 | XMS_ITS | Encounter Summary ---
:1945 Author Organization [facility] Address [address] [facility], [address] [place] [address] Care Team Providers Name Role Phone Kevin Miranda MD Primary Care Provider Reason for Referral Diagnostic Imaging (Routine) - Closed Specialty Diagnoses / Procedures Referred By Contact Refer red To Contact Radiology Diagnoses Osteopenia, unspecified location Kevin Miranda MD Procedures DEXA [facility] [address] [place] [address] Referral ID Status Reason Start Date Expiration Date Visits Requ ested Visits Authorized [id number] Closed 01/07/2020 01/06/2021 1 1 Encounter Details Date Type Department Care Team Description 01/07/2020 Orders Only Kevin Trimble Osteope nia, unspecified Practice location (Primary Dx) [facility] [place] [address] [place] [address] Social History Tobacco Use Types Packs/Day Years [...] Visit Family Medicine Kevin Miranda MD [address] [place], [place] [address] (Wo rk) documented as [...] sheets). Dictated: 03/25/2020 1:12 PM Report ID: [id number] Report signed in external system at 03/25 13:12 Reported By: Joshua Arora M.D. ([facility]) Signed By: Joshua Arora M.D. ([facility]) Narrative 03/25/2020 1:12 PM EST RESPONSIBLE BEAUTY DIRECTOR: Joshua Arora M.D. EXAMINATION: DEXA BONE DENSITY CENTRAL CLINICAL INDICATION: Osteoporosis screening. ??Post menopause . TECHNIQUE: Dual Energy X-Ray Absorptiometry (DEXA t [facility]) was performed with measurements of the [...] might be different from the original. RESPONSIBLE BEAUTY DIRECTOR: Joshua Arora M.D. EXAMINATION: DEXA BONE DENSITY CENTRAL CLINICAL INDICATION: Osteoporosis screening. Post menopause. TECHNIQUE: Dual Energy X-Ray Absorptiometry (DEXA t [facility]) was performed with measurements of the [...] sheets). Dictated: 03/25/2020 1:12 PM Report ID: [id number] Report signed in external system at 03/25 13:12 Reported By: Joshua Arora M.D. ([facility]) Signed By: Joshua Arora M.D. ([facility]) Kevin Miranda MD IMG DXA PROCEDURES documented in this encounter Visit Diagnoses Diagnosis Osteopenia, unspecified location - Prima ry Osteopenia, unspecified location documented in this encounter Care Teams Yarn Hauler Relationship Specialty Start Date End Date Kevin Miranda MD PCP - General Family Medicine 11/20/19 10[address] [place] [address] documented as of this encounter
--- OUTSIDE RECORDS SUMMARY | 2021-12-22 09:55 | XMS_ITS | Encounter Summary ---
:1945 Author Organization [facility] Address [address] [facility], [address] [place] [address] Care Team Providers Name Role Phone Kevin Miranda MD Primary Care Provider Reason for Visit Auth/Cert Specialty Diagnoses / Procedures Referred By Contact Refer red To Contact Diagnoses Pericolonic abscess Procedures n/a Referral ID Status Reason Start Date Expiration Date Visits Requ ested Visits Authorized [id number] 1 1 Encounter Details Date Type Department Care Team Description 04/12/2019 Billing Encounter [facility] Main Lab Kevin Miranda MD [address] [facility] [address] [place] [address] [place], [place] [phone] (Wo raine) Social History Tobacco Use Types [...] Visit Family Medicine Kevin Miranda MD [address] [place] [address] (Wo raine) documented as of this encounter Visit Diagnoses Not on filedocumented in this encounter Care Teams Comber Fixer Relationship Specialty Start Date End Date Kevin Miranda MD PCP - General Family Medicine 11/20/19 1020 [facility] [place] [address] documented as of this encounter
--- OUTSIDE RECORDS SUMMARY | 2021-12-22 09:55 | XMS_ITS | Encounter Summary ---
:1945 Author Organization [facility] Address [address] [facility], [address] [place] [address] Care Team Providers Name Role Phone Kevin [...] Visit Family Medicine Kevin Miranda MD [address] [place] [address] (Wo rk) documented as of this encounter Visit Diagnoses Not on filedocumented in this encounter Care Teams Lace Sewer Relationship Specialty Start Date End Date Kevin Miranda MD PCP - General Family Medicine 11/20/[address] [place] [address] documented as of this encounter
--- OUTSIDE RECORDS SUMMARY | 2021-12-22 09:55 | XMS_ITS | Encounter Summary ---
:1945 Author Organization [facility] Address [address] [facility], [address] [place] [address] Care Team Providers Name Role Phone Kevin Miranda MD Primary Care Provider Reason for Visit Reason Comments Diverticulitis Encounter Details Date Type Department Care Team Description 12/05/2019 Office Visit [facility] [place] [facility], Diverticuli tis of large [facility] Michele Wills MD intestine with abscess [address] [facility], [address] without [address] [place] [address] [phone] Social History Tobacco Use Types Packs/Day Years [...] Visit Family Medicine Kevin Miranda MD [address] [place] [address] (Wo rk) documented as of this encounter Visit Diagnoses Diagnosis Diverticulitis of large intestine with a bscess without bleeding documented in this encounter Care Teams Screw Machine Adjuster Automatic Relationship Specialty Start Date End Date Kevin Miranda MD PCP - General Family Medicine 11/20/[address] [place] [address] documented as of this encounter
--- OUTSIDE RECORDS SUMMARY | 2021-12-22 09:55 | XMS_ITS | Encounter Summary ---
:1945 Author Organization [facility] Address [address] [facility], [address] [place] [address] Care Team Providers Name Role Phone Kevin Miranda MD Primary Care Provider Encounter Details Date Type Department Care Team Description 05/14/2020 [facility] Kevin Miranda MD [address] [place] [address] [place] [address] [phone] (Wo rk) Social History Tobacco Use Types [...] Visit Family Medicine Kevin Miranda MD [address] [place] [address] (Wo rk) documented as of this encounter Visit Diagnoses Not on filedocumented in this encounter Care Teams Data Entry Representative Relationship Specialty Start Date End Date Kevin Miranda MD PCP - General Family Medicine 11/20/19 1020 [place] [address] documented as of this encounter
--- OUTSIDE RECORDS SUMMARY | 2021-12-22 09:55 | XMS_ITS | Encounter Summary ---
:1945 Author Organization [facility] Address 330 [facility], [address] [place] [address] Care Team Providers Name Role Phone Kevin Miranda MD Primary Care Provider Encounter Details Date Type Department Care Team Description 03/21/2020 Orders Only [facility] actice Provider, MD Harsh [address] [place] [address] 140861 Social History Tobacco Use Types Packs/Day Years [...] Visit Family Medicine Kevin Miranda MD [address] [place] [address] (Wo rk) documented as of [...] filedocumented in this encounter Care Teams Senior It Specialist Relationship Specialty Start Date End Date Kevin Miranda MD PCP - General Family Medicine 11/20/19 1020 [place] [address] documented as of this encounter
--- OUTSIDE RECORDS SUMMARY | 2021-12-22 09:55 | XMS_ITS | Encounter Summary ---
:1945 Author Organization [facility] Address 330 [facility], [address] [place] [address] Care Team Providers Name Role Phone Laurie Elias NP Primary Care Provider Unavailable Encounter Details Date Type Department Care Team Description 09/27/2019 Refill [facility] Pr Yessy Gee, [address] [facility] [place] [address] [place] [address] [place], [place] 0 (Wo rk) Social History Tobacco [...] Visit Family Medicine Kevin Miranda MD 1020 [place], [place] 0 (Wo rk) documented as of this encounter Visit Diagnoses Not on filedocumented in this encounter Care Teams Front Desk Associate Relationship Specialty Start Date End Date Laurie Elias NP PCP - General Family Medicine 03/02/1811/19/19 documented as of this encounter
--- OUTSIDE RECORDS SUMMARY | 2021-12-22 09:55 | XMS_ITS | Encounter Summary ---
:1945 Author Organization [facility] Address 330 [facility], [address] [place] [address] Care Team Providers Name Role Phone Kevin [...] Office Visit Family Medicine Kevin Miranda MD [address] [place] [address] (Wo rk) documented as of this encounter Visit Diagnoses Not on filedocumented in this encounter Care Teams Feedlot Manager Relationship Specialty Start Date End Date Kevin Miranda MD PCP - General Family Medicine 11/20/[address] [place] [address] documented as of this encounter
--- OUTSIDE RECORDS SUMMARY | 2021-12-22 09:55 | XMS_ITS | Encounter Summary ---
:1945 Author Organization [facility] Address 330 [facility], [address] [place] [address] Care Team Providers Name Role Phone Kevin [...] Visit Family Medicine Kevin Miranda MD [address] [place] [address] (Wo rk) documented as of this encounter Visit Diagnoses Not on filedocumented in this encounter Care Teams Furnace Installer Relationship Specialty Start Date End Date Kevin Miranda MD PCP - General Family Medicine 11/20/[address] [place] [address] documented as of this encounter
--- OUTSIDE RECORDS SUMMARY | 2021-12-22 09:55 | XMS_ITS | Encounter Summary ---
:1945 Author Organization [facility] Address [address] [facility], [address] [place] [address] Care Team Providers Name Role Phone Kevin Miranda MD Primary Care Provider Encounter Details Date Type Department Care Team Description 10/16/2020 Scan Document - View Kaus[facility]ik [facility] Kevin Miranda, in Chart Practice [address] [place], [place] [address] [place], [place] [phone] Social History Tobacco Use Types Packs/Day Years [...] Visit Family Medicine Kevin Miranda MD [address] [place] [address] (Wo rk) documented as of this encounter Visit Diagnoses Not on filedocumented in this encounter Care Teams Engine Hostler Relationship Specialty Start Date End Date Kevin Miranda MD PCP - General Family Medicine 11/20/[address] [place] [address] documented as of this encounter
--- OUTSIDE RECORDS SUMMARY | 2021-12-22 09:55 | XMS_ITS | Encounter Summary ---
:1945 Author Organization [facility] Address [address] [facility], [address] [place] [address] Care Team Providers Name Role Phone Kevin Miranda MD Primary Care Provider Encounter Details Date Type Department Care Team Description 04/02/2021 Refill [facility] Pr actice Kevin Miranda MD [address] [place] [address] [place] [address] [phone] (Wo rk) Social History Tobacco Use Types [...] Visit Family Medicine Kevin Miranda MD [address] [place] [address] (Wo rk) documented as of this encounter Visit Diagnoses Not on filedocumented in this encounter Care Teams Junior Graphic Designer Relationship Specialty Start Date End Date Kevin Miranda MD PCP - General Family Medicine 11/20/[address] [place] [address] documented as of this encounter
--- OUTSIDE RECORDS SUMMARY | 2021-12-22 09:55 | XMS_ITS | Encounter Summary ---
:1945 Author Organization [facility] Address [address] [facility], [address] [place] [address] Care Team Providers Name Role Phone Kevin Miranda MD Primary Care Provider Encounter Details Date Type Department Care Team Description 03/27/2020 Scan Document - View Kaushik [facility] Kevin Miranda, in Chart Practice [address] [place], [place] [address] [place], [place] [phone] Social History Tobacco Use Types Packs/Day Years [...] Visit Family Medicine Kevin Miranda MD [address] [place] [address] (Wo rk) documented as of this encounter Visit Diagnoses Not on filedocumented in this encounter Care Teams Banbury Mixer Operator Relationship Specialty Start Date End Date Kevin Miranda MD PCP - General Family Medicine 11/20/[address] [place] [address] documented as of this encounter
--- OUTSIDE RECORDS SUMMARY | 2021-12-22 09:55 | XMS_ITS | Encounter Summary ---
:1945 Author Organization [facility] Address [address] [facility], [address] [place] [address] Care Team Providers Name Role Phone Kevin Miranda MD Primary Care Provider Encounter Details Date Type Department Care Team Description 03/05/2020 Scan Document - View Kaushik [facility] Kevin Miranda, in Chart Practice [address] [place] [address] [place], [place] [phone] Social History Tobacco Use Types Packs/Day Years [...] Visit Family Medicine Kevin Miranda MD [address] [place] [address] (Wo rk) documented as of this encounter Visit Diagnoses Not on filedocumented in this encounter Care Teams Radio Station Engineer Relationship Specialty Start Date End Date Kevin Miranda MD PCP - General Family Medicine 11/20/19 1020 [place] [address] documented as of this encounter
--- OUTSIDE RECORDS SUMMARY | 2021-12-22 09:55 | XMS_ITS | Encounter Summary ---
:[address] [facility] Address 330 [facility], [address] [place] [address] Care Team Providers Name Role Phone Laurie Elias BAR FINISH OPERATOR Primary Care Provider Unavailable Encounter Details Date Type Department Care Team Description 10/15/2019 Refill [facility] actice Kevin Miranda MD [address] [place] [address] [place] [address] [phone] (Wo rk) Social History Tobacco Use Types [...] Visit Family Medicine Kevin Miranda MD [address] [place] [address] (Wo rk) documented as of this encounter Visit Diagnoses Not on filedocumented in this encounter Care Teams Associate Professor Of Philosophy Relationship Specialty Start Date End Date Laurie Elias, ANN PCP - General Family Medicine 03/02/1811/19/19 documented as of this encounter
--- OUTSIDE RECORDS SUMMARY | 2021-12-22 09:55 | XMS_ITS | Encounter Summary ---
:1945 Author Organization [facility] Address 330 [facility], [address] [place] [address] Care Team Providers Name Role Phone Kevin Miranda MD Primary Care Provider Encounter Details Date Type Department Care Team Description 04/21/2021 Scan Document - View [facility] Kevin Miranda, in Chart Practice [address] [place], [place] [address] [place], [place] [phone] Social History Tobacco Use Types Packs/Day Years [...] Visit Family Medicine Kevin Miranda MD [address] [place] [address] (Wo rk) documented as of this encounter Visit Diagnoses Not on filedocumented in this encounter Care Teams Family Nurse Practitioner Relationship Specialty Start Date End Date Kevin Miranda MD PCP - General Family Medicine 11/20/[address] [place] [address] documented as of this encounter
--- OUTSIDE RECORDS SUMMARY | 2021-12-22 09:55 | XMS_ITS | Encounter Summary ---
:1945 Author Organization [facility] Address 330 [facility], [address] [place] [address] Care Team Providers Name Role Phone Kevin Miranda MD Primary Care Provider Encounter Details Date Type Department Care Team Description 12/07/2020 Scan Document - View [facility] Kevin Miranda, in Chart Practice [address] [place], [place] [address] [place], [place] [phone] Social History Tobacco Use Types Packs/Day Years [...] Visit Family Medicine Kevin Miranda MD [address] [place] [address] (Wo rk) documented as of this encounter Visit Diagnoses Not on filedocumented in this encounter Care Teams Seconds Grader Relationship Specialty Start Date End Date Kevin Miranda MD PCP - General Family Medicine 11/20/[address] [place] [address] documented as of this encounter
--- OUTSIDE RECORDS SUMMARY | 2021-12-22 09:55 | XMS_ITS | Encounter Summary ---
:1945 Author Organization [facility] Address 330 [facility], [address] [place] [address] Care Team Providers Name Role Phone Kevin Miranda MD Primary Care Provider Encounter Details Date Type Department Care Team Description 08/06/2020 Orders Only [facility] actice Provider, MD Harsh [address] [place] [address] [phone] Social History Tobacco Use Types Packs/Day Years [...] Visit Family Medicine Kevin Miranda MD [address] [place] [address] (Wo rk) documented as of this encounter Procedures Procedure Name Priority Date/Time Associated Diagnosis Comme nts MAMMOGRAPHY Routine 07/29/2020 documented in this encounter Results MAMMOGRAPHY (07/29/2020) Anatomical Region Laterality Modality Other Narrative This result has an attachment that is no t available. Historical Provider HEALTH MAINTENANCE documented in this encounter Visit Diagnoses Not on filedocumented in this encounter Care Teams Customer Advocacy Manager Relationship Specialty Start Date End Date Kevin Miranda MD PCP - General Family Medicine 11/20/19 10[address] [place] [address] documented as of this encounter
--- OUTSIDE RECORDS SUMMARY | 2021-12-22 09:55 | XMS_ITS | Encounter Summary ---
:1945 Author Organization [facility] Address 330 [facility], [address] [place] [address] Care Team Providers Name Role Phone Kevin Miranda MD Primary Care Provider Encounter Details Date Type Department Care Team Description 01/08/2020 Telemedicine [facility] Kevin Miranda, Advance care planning Practice (Primary Dx) [facility] [address] [phone] Social History Tobacco Use Types Packs/Day Years [...] Rodas The physical location of the provider: [facility] office Patient's verbal consent was obtained [...] Visit Family Medicine Kevin Miranda MD [address] [place] [address] (Wo rk) documented as of this encounter Visit Diagnoses Diagnosis Advance care planning - Primary Other specified counseling documented in this encounter Care Teams Marketing Editor Relationship Specialty Start Date End Date Kevin Mirnada MD PCP - General Family Medicine 11/20/[address] [place] [address] documented as of this encounter
--- OUTSIDE RECORDS SUMMARY | 2021-12-22 09:55 | XMS_ITS | Encounter Summary ---
:1945 Author Organization [facility] Address 330 [facility], [address] [place] [address] Care Team Providers Name Role Phone Kevin Miranda MD Primary Care Provider Encounter Details Date Type Department Care Team Description 12/04/[address] [place] Kevin Miranda MD Pre-operative examination (Primary Dx); Practice [address] [place] [address] PVC (premature ventricular contraction) [facility] [place] [address] [phone] Social History Tobacco Use Types Packs/Day Years [...] with Dr. Chávez on 12/16 at [facility] ([place], [place]). She had a pre-op EKG and lab work done with Dr. Chávez 1 month ago. She now has bursitis in her left hip and intermittent back pain from altering her gait to accommodate for her right hip. 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. Looks forward to swimming without hip [...] Visit Family Medicine Kevin Miranda MD [address] [place] [phone] (Wo rk) documented as of [...] beats documented in this encounter Care Teams Centrifugal Casting Machine Tender Relationship Specialty Start Date End Date Kevin Miranda MD PCP - General Family Medicine 11/20/19 1020 [place] [address] documented as of this encounter
--- OUTSIDE RECORDS SUMMARY | 2021-12-22 09:55 | XMS_ITS | Encounter Summary ---
:1945 Author Organization [facility] Address 330 [facility], [address] [place] [address] Care Team Providers Name Role Phone Kevin Miranda MD Primary Care Provider Reason for Visit Reason Onset Date Comments Med Refill 09/30/2020 Encounter Details Date Type Department Care Team Description 09/30/2020 Refill [facility] Pr actice Kevin Miranda MD [address] [place] [address] [place] [address] [phone] (Wo rk) Social History Tobacco Use Types [...] Visit Family Medicine Kevin Miranda MD [address] [place] [address] (Wo rk) documented as of this encounter Visit Diagnoses Not on filedocumented in this encounter Care Teams Survey Engineer Relationship Specialty Start Date End Date Kevin Miranda MD PCP - General Family Medicine 11/20/[address] [place] [address] documented as of this encounter
--- OUTSIDE RECORDS SUMMARY | 2021-12-22 09:55 | XMS_ITS | Encounter Summary ---
:1945 Author Organization [facility] Address 330 [facility], [address] [place] [address] Care Team Providers Name Role Phone Laurie Elias NP Primary Care Provider Unavailable Reason for Visit Reason Comments Med Refill Encounter Details Date Type Department Care Team Description 06/06/2019 Refill [facility] actice Laurie Elias NP [facility] [place] [address] Social History Tobacco Use Types Packs/Day Years [...] Medicine Kevin Miranda MD [facility] [place], [place] [address] (Wo rk) documented as of this encounter Visit Diagnoses Not on filedocumented in this encounter Care Teams Sports Manager Relationship Specialty Start Date End Date Laurie Elias NP PCP - General Family Medicine 03/02/1811/19/19 documented as of this encounter
--- OUTSIDE RECORDS SUMMARY | 2021-12-22 09:55 | XMS_ITS | Encounter Summary ---
:1945 Author Organization [facility] Address 330 [facility], [address] [place] [address] Care Team Providers Name Role Phone Kevin Miranda MD Primary Care Provider Encounter Details Date Type Department Care Team Description 11/23/2019 Office Visit Kaushik Miranda, Encounter for Medicare annual wellness exam (Primary Dx); Practice MD Kevin Other emphysema ([facility]); [address] Gastroesophageal reflux disease without esophagitis; [place] [address] [place] Insomnia, unspecified type; [phone] Osteopenia, unspecified location; [phone] Primary osteoar thritis of right hip; (Work) Spasm of muscle of lower back; [phone] Need for influe nza vaccination; (Fax) Screening [...] file Gets together: Not on file Attends sikh service: Not on file Active member of [...] with and son. Works 1 day/wk at [employer], likes it. Meditates, swims, involved in [employer] group, reads. Current Outpatient Medications Medication Sig [...] recommended due to inadequate prep at sigmoid ([id number]) Skin cancer prevention and symptoms discussed, encouraged [...] 11/25/2019 12:12 PM EDTAssociated Problem(s): Other emphysema ([facility]) Dx via PFT in 11/30, mild obstruction. [...] Visit Family Medicine Kevin Miranda MD [address] [place], [place] [address] (Wo rk) documented as [...] Vitamin D 25 34 30 - 100 [email or web address] Hydroxy,Total ng/mL [facility] Comment: Vitamin D Status ? 25-OH Vitam in D: Deficiency: ?<20 ng/mL Insufficiency: ? 20 - 29 ng/mL Optimal: ? > or = 30 ng/mL For 25-OH Vitamin D testing on patients on D2-supplementation and patients for whom quantitation of D2 and D3 fractions is required, the Quest[facility](TM) 25-OH VIT D, (D2,D3), LC/MS/MS is recomm ended: order code 25776 (patients >2yrs). See Note 1 Note 1 For additional information, please refer to http://education.[facility].Aktivito/fa q/CAG616 (This link is being provided for informa tional/ educational purposes only.) Specimen Anatomical Collection Method Collection Time Receive d Time (Source) Location / / Volume Laterality Blood Venous blood / 11/23/2019 2:18 PM 020 2:19 Unknown EDT PM EDT Kevin Miranda MD LAB BLOOD ORDERABLES Performing Organization Address City/State/ZIP Code Phon e Number [facility] [address] [phone] [place] [address], [address] [email or web address] [address] [place] [address], [facility] [address] [id number] Diagnost Basic Metabolic Panel - [facility] (11/23/2019 2:18 PM EDT) P athologist Signature Glucose 84 65 - 99 [facility] mg/dL [facility] Comment: ? Fasting reference interv al Bun 18 7 - 25 mg/dL [facility] Creatinine, Ser 0.77 0.60 - 0.93 mg/dL [facility] Comment: For patients >49 years of age, the refer ence limit for Creatinine is approximately 13% high er for people identified as -Mauritian. eGFR NON-AFR. 77 > OR = 60 mL/min/1.73m2 Qu est [facility] eGFR 89 > OR = 60 mL/min/1.73m2 Que [facility] BUN/Creatinine NOT APPLICABLE 6 - 22 (calc) [facility] Ratio [facility] Sodium 138 135 - 146 mmol/L [facility] Potassium 3.9 3.5 - 5.3 mmol/L [facility] Chloride 101 98 - 110 mmol/L [facility] CO2 27 20 - 32 mmol/L [facility] Calcium 9.3 8.6 - 10.4 mg/dL [facility] Specimen Anatomical Collection Method Collection Time Receive d Time (Source) Location / / Volume Laterality Blood Venous blood / 11/23/2019 2:18 PM 020 2:19 Unknown EDT PM EDT Kevin Miranda MD LAB BLOOD ORDERABLES Performing Organization Address City/State/ZIP Code Phon e Number [facility] [address] [phone] [place] [address] B [facility] [address] [place] [address], [facility] [address] [phone] Diagnost (ABNORMAL) Lipid Panel, Standard - [facility] (11/23/2019 2:18 PM EDT) Patholo gist Method Time Signature Cholesterol, 228 (H) <200 [facility] Total mg/dL [facility] HDL Cholesterol 114 > OR = 50 [facility] mg/dL [facility] TRIGS 76 <150 [facility] mg/dL [facility] LDL Cholesterol 97 mg/dL [facility] (calc) [facility] Comment: Reference range: <100 Desirable range <100 [...] SS et al. GEOVANNA. 2013;310(19): 206 1-2068 (http://education.Jimubox/f aq/ZRP008) HDL 2.0 <5.0 (calc) [email or web address] Non HDL Chol. (LDL+VLDL) 114 <130 mg/dL (calc) [email or web address] Comment: For patients with diabetes plus 1 [...] Organization Address City/State/ZIP Code Phon e Number [facility] [address] [phone] [email or web address] [address] [place] [address] [facility] [address] [phone] Diagnost documented in this encounter Visit Diagnoses Diagnosis Encounter for Medicare annual wellness e xam - Primary Other emphysema ([facility]) Other emphysema Gastroesophageal reflux disease without esophagitis Esophageal reflux Insomnia, unspecified type Osteopenia, unspecified location Primary osteoarthritis of right hip Spasm of muscle of lower back Need for influenza vaccination Need for prophylactic vaccination and in oculation against influenza Screening for depression documented in this encounter Care Teams Employment Specialist Relationship Specialty Start Date End Date Kevin Miranda MD PCP - General Family Medicine 11/20/[address] [place], [place] [address] documented as of this encounter
--- OUTSIDE RECORDS SUMMARY | 2021-12-22 09:55 | XMS_ITS | Encounter Summary ---
:1945 Author Organization [facility] Address 330 [facility], [address] [place] [address] Care Team Providers Name Role Phone Kevin Miranda MD Primary Care Provider Reason for Referral Diagnostic Imaging (Routine) - Closed Specialty Diagnoses / Procedures Referred By Contact Refer red To Contact Radiology Diagnoses Osteopenia, unspecified location Kevin Miranda MD Procedures DEXA [facility] [address] [place] [address] Referral ID Status Reason Start Date Expiration Date Visits Requ ested Visits Authorized [id number] Closed 01/07/2020 01/06/2021 1 1 Reason for Visit Diagnostic Imaging (Routine) - Closed Specialty Diagnoses / Procedures Referred By Contact Refer red To Contact Radiology Diagnoses Osteopenia, unspecified location Kevin Miranda MD Procedures DEXA [facility] [address] [place], [place] [id number] Referral ID Status Reason Start Date Expiration Date Visits Requ ested Visits Authorized [id number] Closed 01/07/2020 01/06/2021 1 1 Encounter Details Date Type Department Care Team Description 03/25/2020 Hospital [facility] Kevin Miranda MD [address] [place] [id number] [place], [place] [phone] Social History Tobacco Use Types Packs/Day Years [...] Medicine Kevin Miranda MD [facility] [place], [place] 0 (Wo rk) documented as of [...] sheets). Dictated: 03/25/2020 1:12 PM Report ID: [id number] Report signed in external system at 03/25 13:12 Reported By: Joshua Arora M.D. ([facility]) Signed By: Joshua Arora M.D. ([facility]) Narrative 03/25/2020 1:12 PM EST RESPONSIBLE CONTRACT ADMINISTRATION SPECIALIST: Joshua Arora M.D. EXAMINATION: DEXA BONE DENSITY CENTRAL CLINICAL INDICATION: Osteoporosis screening. ??Post menopause . TECHNIQUE: Dual Energy X-Ray Absorptiometry (DEXA t [facility]) was performed with measurements of [...] might be different from the original. RESPONSIBLE CONTRACT ADMINISTRATION SPECIALIST: Joshua Arora M.D. EXAMINATION: DEXA BONE DENSITY CENTRAL CLINICAL INDICATION: Osteoporosis screening. Post menopause. TECHNIQUE: Dual Energy X-Ray Absorptiometry (DEXA t [facility]) was performed with measurements of the lumbar [...] sheets). Dictated: 03/25/2020 1:12 PM Report ID: [id number] Report signed in external system at 03/25 13:12 Reported By: Joshua Arora M.D. ([facility]) Signed By: Joshua Arora M.D. ([facility]) Kevin Miranda MD IMG DXA PROCEDURES documented in this encounter Visit Diagnoses Diagnosis Osteopenia, unspecified location documented in this encounter Care Teams Corporation Lawyer Relationship Specialty Start Date End Date Kevin Miranda MD PCP - General Family Medicine 11/20/19 1020 [place] [address] documented as of this encounter
--- OUTSIDE RECORDS SUMMARY | 2021-12-22 09:55 | XMS_ITS | Encounter Summary ---
:1945 Author Organization [facility] Address 330 [facility], [address] [place] [address] Care Team Providers Name Role Phone Kevin Miranda MD Primary Care Provider Reason for Referral Specialty (Routine) - Closed Specialty Diagnoses / Procedures Referred By Contact Refer red To Contact Orthopedic Surgery / Diagnoses Primary osteoarthritis of right hip Kevin Miranda MD Orthopaedic Surgery [address] [place] [address] Referral ID Status Reason Start Date Expiration Date Visits V isits Requested Authorized [id number] Closed Specialty 06/05/2020 06/05/2021 1 1 Services Required ehab (Routine) - Closed Specialty Diagnoses / Procedures Referred By Contact Refer red To Contact Physical Therapy Diagnoses Primary osteoarthritis of right hip Kevin Miranda MD [address] [place] [address] Referral ID Status Reason Start Date Expiration Date Visits V isits Requested Authorized [id number] Closed Specialty 06/05/2020 06/05/2021 1 1 Services Required Encounter Details Date Type Department Care Team Description 06/05/2020 Telemedicine [facility] Kevin Miranda, Primary osteoarthritis of right hip (Primary Dx); Practice MD Insomnia, unspecified type [address] [place], [place] [address] [address] [place] [address] [place], [place] [phone] Social History Tobacco Use Types Packs/Day Years [...] recommended. She first saw Dr. Horn at [facility], who does anterior approach. She had a second opinion with Dr. Varela at [facility], who does the posterior approach. She wonders [...] pursue another opinion with Dr. Angel at [facility] for another anterior approach option. Continue [...] Rodas The physical location of the provider: [facility] office Patient's verbal consent was obtained [...] pursue another opinion with Dr. Angel at [facility] for another anterior approach option. Continue diclofenac 75 mg BID PRN pain. Agree with PT prior to surgery as well and provided referral. documented in this encounter Plan of Treatment Upcoming Encounters Date Type Specialty Care Team Description 04/19/2022 Office Visit Family Medicine Kevin Miranda MD [address] [place], [place] [address] (Wo rk) Scheduled Referrals [...] type documented in this encounter Care Teams Retail Event Coordinator Relationship Specialty Start Date End Date Kevin Miranda MD PCP - General Family Medicine 11/20/19 10[address] [place] [address] documented as of this encounter
--- OUTSIDE RECORDS SUMMARY | 2021-12-22 09:55 | XMS_ITS | Encounter Summary ---
:1945 Author Organization [facility] Address 330 [facility], [address] [place] [address] Care Team Providers Name Role Phone Kevin Miranda MD Primary Care Provider Encounter Details Date Type Department Care Team Description 04/02/2021 Refill [facility] Pr actice Kevin Miranda MD [address] [place] [address] [place] [address] [phone] (Wo rk) Social History Tobacco Use Types [...] Visit Family Medicine Kevin Miranda MD [address] [place] [address] (Wo rk) documented as of this encounter Visit Diagnoses Not on filedocumented in this encounter Care Teams Motion Picture Operator Relationship Specialty Start Date End Date Kevin Miranda MD PCP - General Family Medicine 11/20/[address] [place] [address] documented as of this encounter
--- OUTSIDE RECORDS SUMMARY | 2021-12-22 09:55 | XMS_ITS | Encounter Summary ---
:1945 Author Organization [facility] Address 330 [facility], [address] [place] [address] Care Team Providers Name Role Phone Kevin Miranda MD Primary Care Provider Encounter Details Date Type Department Care Team Description 11/19/2020 Scan Document - View KaushikPaula Al in Chart Practice [address] [place] [address] Social History Tobacco Use Types Packs/Day Years [...] Visit Family Medicine Kevin Miranda MD [address] [place] [address] (Wo rk) documented as of this encounter Visit Diagnoses Not on filedocumented in this encounter Care Teams Collections Clerk Relationship Specialty Start Date End Date Kevin Miranda MD PCP - General Family Medicine 11/20/[address] [place] [address] documented as of this encounter
--- OUTSIDE RECORDS SUMMARY | 2021-12-22 09:55 | XMS_ITS | Encounter Summary ---
:1945 Author Organization [facility] Address 330 [facility], [address] [place] [address] Care Team Providers Name Role Phone Kevin [...] Office Visit Family Medicine Kevin Miranda MD [address] [place] [address] (Wo rk) documented as of this encounter Visit Diagnoses Not on filedocumented in this encounter Care Teams Dextrine Mixer Relationship Specialty Start Date End Date Kevin Miranda MD PCP - General Family Medicine 11/20/[address] [place] [address] documented as of this encounter
--- OUTSIDE RECORDS SUMMARY | 2021-12-22 09:55 | XMS_ITS | Encounter Summary ---
:1945 Author Organization [facility] Address 330 [facility], [address] [place] [address] Care Team Providers Name Role Phone Kevin [...] Visit Family Medicine Kevin Miranda MD [address] [place] [address] (Wo rk) documented as of this encounter Visit Diagnoses Not on filedocumented in this encounter Care Teams Seo Coordinator Relationship Specialty Start Date End Date Kevin Miranda MD PCP - General Family Medicine 11/20/[address] [place] [address] documented as of this encounter
--- OUTSIDE RECORDS SUMMARY | 2021-12-22 09:55 | XMS_ITS | Encounter Summary ---
:1945 Author Organization Address 330 [facility], [address] [place] [address] Care Team Providers Name Role Phone Kevin [...] Visit Family Medicine Kevin Miranda MD [address] [place] [address] (Wo rk) documented as of this encounter Visit Diagnoses Not on filedocumented in this encounter Care Teams Provider Relations Specialist Relationship Specialty Start Date End Date Kevin Miranda MD PCP - General Family Medicine 11/20/[address] [place] [address] documented as of this encounter
--- OUTSIDE RECORDS SUMMARY | 2021-12-22 09:55 | XMS_ITS | Encounter Summary ---
:1945 Author Organization [facility] Address [address] [facility], [address] [place] [address] Care Team Providers Name Role Phone Kevin Miranda MD Primary Care Provider Reason for Referral Diagnostic Imaging (Routine) - Closed Specialty Diagnoses / Procedures Referred By Contact Refer red To Contact Diagnoses Pain of right hand Jason Rodriguez MD Procedures X-ray Hand 3+ Views Right [address] [place] [address], [address] [place] [address] Referral ID Status Reason Start Date Expiration Date Visits Requ ested Visits Authorized [id number] Closed 02/23/2020 02/22/2021 1 1 Encounter Details Date Type Department Care Team Description 02/23/2020 Telemedicine Family Practice Grou p Jason Rodriguez MD Pain of right hand 11 [facility], [address] [place] [address], ( Primary Dx) [address] [place] [address] [place], [place] [phone] Social History Tobacco Use Types Packs/Day Years [...] Rodriguez MD [facility] [address], [address] [facility] [id number] documented in this encounter Plan of Treatment Upcoming Encounters Date Type Specialty Care Team Description 04/19/2022 Office Visit Family Medicine Kevin Miranda MD [address] [place] [address] (Wo rk) Scheduled Orders Name Type Priority Associated Diagnoses Order S chedule X-ray Hand 3+ Views Imaging Routine Pain of right hand Ex pected: 02/23/2020, Right Expires: 2021 documented as of this encounter Visit Diagnoses Diagnosis Pain of right hand - Primary documented in this encounter Care Teams Control Systems Engineer Relationship Specialty Start Date End Date Kevin Miranda MD PCP - General Family Medicine 11/20/[address] [place] [address] documented as of this encounter
--- OUTSIDE RECORDS SUMMARY | 2021-12-22 09:55 | XMS_ITS | Encounter Summary ---
:1945 Author Organization [facility] Address 330 [facility], [address] [place] [address] Care Team Providers Name Role Phone Kevin Miranda MD Primary Care Provider Encounter Details Date Type Department Care Team Description 01/03/2020 Refill [facility] Pr actice Kevin Miranda MD [address] [place] [address] [place] [address] [phone] (Wo rk) Social History Tobacco Use Types [...] Visit Family Medicine Kevin Miranda MD [address] [place] [address], [place] [address] (Wo rk) documented as of this encounter Visit Diagnoses Not on filedocumented in this encounter Care Teams Motor Vehicle Representative Relationship Specialty Start Date End Date Kevin Miranda MD PCP - General Family Medicine 11/20/19 10[address] [place] [address] documented as of this encounter
--- OUTSIDE RECORDS SUMMARY | 2021-12-22 09:55 | XMS_ITS | Encounter Summary ---
:1945 Author Organization [facility] Address 330 [facility], [address] [place] [address] Care Team Providers Name Role Phone Kevin Miranda MD Primary Care Provider Encounter Details Date Type Department Care Team Description 02/05/2020 [facility] Pr [facility]ice Kevin Miranda MD [address] [place] [address] [place] [address] [phone] (Wo rk) Social History Tobacco Use Types [...] Visit Family Medicine Kevin Miranda MD [address] [place] [address] (Wo rk) documented as of this encounter Visit Diagnoses Not on filedocumented in this encounter Care Teams Flux Core Welder Relationship Specialty Start Date End Date Kevin Miranda MD PCP - General Family Medicine 11/20/19 1020 [place] [address] documented as of this encounter
--- OUTSIDE RECORDS SUMMARY | 2021-12-22 09:55 | XMS_ITS | Encounter Summary ---
:1945 Author Organization [facility] Address 330 [facility], [address] [place] [address] Care Team Providers Name Role Phone Laurie Elias NP Primary Care Provider Unavailable Encounter Details Date Type Department Care Team Description 07/04/2019 Refill [facility] Pr Yessy Gee, [address] [place] [address] [place] [address] [place], [place] 0 (Wo rk) Social History Tobacco [...] Visit Family Medicine Kevin Miranda MD [address] [place], [place] [address] (Wo rk) documented as of this encounter Visit Diagnoses Not on filedocumented in this encounter Care Teams Six Pack Packer Relationship Specialty Start Date End Date Laurie Elias NP PCP - General Family Medicine 03/02/1811/19/19 documented as of this encounter
--- OUTSIDE RECORDS SUMMARY | 2021-12-22 09:55 | XMS_ITS | Encounter Summary ---
:1945 Author Organization [facility] Address 330 [facility], [address] [place] [address] Care Team Providers Name Role Phone Laurie Elias ELIGIBILITY MANAGER Primary Care Provider Unavailable Encounter Details [...] Office Visit Family Medicine Kevin Miranda MD [address] [place] [address] (Wo rk) documented as of this encounter Visit Diagnoses Not on filedocumented in this encounter Care Teams Machine Clothing Man Relationship Specialty Start Date End Date Laurie Elias NP PCP - General Family Medicine 03/02/1811/19/19 documented as of this encounter
--- OUTSIDE RECORDS SUMMARY | 2021-12-22 09:55 | XMS_ITS | Encounter Summary ---
:1945 Author Organization [facility] Address 330 [facility], [address] [place] [address] Care Team Providers Name Role Phone Laurie Elias TIE UP WORKER Primary Care Provider Unavailable Encounter Details [...] Visit Family Medicine Kevin Miranda MD [address] [place] [address] (Wo rk) documented as of this encounter Visit Diagnoses Not on filedocumented in this encounter Care Teams Prototype Machinist Relationship Specialty Start Date End Date Laurie Elias NP PCP - General Family Medicine 03/02/1811/19/19 documented as of this encounter
--- OUTSIDE RECORDS SUMMARY | 2021-12-22 09:56 | XMS_ITS | Encounter Summary ---
:1945 Author Organization [facility] Address 330 [facility], [address] [place] [address] Care Team Providers Name Role Phone Laurie Elias CUSTOM APPLICATOR Primary Care Provider Unavailable Encounter Details Date Type Department Care Team Description [facility] [place] [address] Social History Tobacco Use Types Packs/Day Years [...] Visit Family Medicine Kevin Miranda MD [address] [place], [place] [address] (Wo rk) documented as of this encounter Visit Diagnoses Not on filedocumented in this encounter Care Teams Collection Advisor Relationship Specialty Start Date End Date Laurie Elias NP PCP - General Family Medicine 03/02/1811/19/19 documented as of this encounter
--- OUTSIDE RECORDS SUMMARY | 2021-12-22 09:56 | XMS_ITS | Encounter Summary ---
:1945 Author Organization [facility] Address 330 [facility], [address] [place] [address] Care Team Providers Name Role Phone Laurie Elias OIL AND GAS SUPERINTENDENT Primary Care Provider Unavailable Encounter Details Date [...] Visit Family Medicine Kevin Miranda MD [address] [place] [address] (Wo rk) documented as of this encounter Visit Diagnoses Not on filedocumented in this encounter Care Teams Utility Manager Relationship Specialty Start Date End Date Laurie Elias NP PCP - General Family Medicine 03/02/1811/19/19 documented as of this encounter
--- OUTSIDE RECORDS SUMMARY | 2021-12-22 09:56 | XMS_ITS | Encounter Summary ---
:1945 Author Organization [facility] Address 330 [facility], [address] [place] [address] Care Team Providers Name Role Phone Laurie Elias DIRECTOR OF HUMAN RESOURCES Primary Care Provider Unavailable Encounter Details Date Type Department Care Team Description 12/22/2018 Scan Document - View Trini Gómez in Chart Practice DIRECTOR OF HUMAN RESOURCES [facility] [place] [address] Social History Tobacco Use Types Packs/Day Years Used Date Former Smoker Smokeless Tobacco: Never Used Alcohol Use Standard Drinks/Week Comments Yes 5 (1 standard drink = 0.6 oz pure alcoho l) Sex Assigned at Date Recorded Female 04/12/2019 2:19 PM EST documented as of this encounter Plan of Treatment Upcoming Encounters Date Type Specialty Care Team Description 04/19/2022 Office Visit Family Medicine Kevin Miranad MD [address] [place] [address] (Wo rk) documented as of this encounter Visit Diagnoses Not on filedocumented in this encounter Care Teams Egg Sorter Relationship Specialty Start Date End Date Laurie Elias NP PCP - General Family Medicine 03/02/1811/19/19 documented as of this encounter
--- OUTSIDE RECORDS SUMMARY | 2021-12-22 09:56 | XMS_ITS | Encounter Summary ---
:1945 Author Organization [facility] Address 330 [facility], [address] [place] [address] Care Team Providers Name Role Phone Laurie Elias NP Primary Care Provider Unavailable Encounter Details Date Type Department Care Team Description 12/06/2018 Surgery [facility] [place] Astudillo MD COLONOSCOPY [[id number] Gastroenterology/Endosc [address] [place] (CPT??)] [facility] [address] [facility] eet [place], [place] [address] [place] [address] (Wo rk) [address] [phone] Surgery Details Date/Time Status Location OR Service Patient Class Case Case Trauma Class Type Case? 12/06/18 Posted [facility] GI GI [address] [place] [address] 9:30 AM Outpatient Surgery Panel 1 Procedure [...] INSTRUCTIONS: Please call Dr. Astudillo office at [phone] if you develop the following symptoms in [...] cecum, confirmed by appendiceal orifice, cecal strap (confederated goshute's foot), and ileocecal valve. The scope was withdrawn and the mucosa was carefully examined. The quality of the preparation was good. The views were good. The patient's toleration of the procedure was good. Scope(s)/SN:[id number] Time Started: 09:32 Cecum Time: 09:42 Time Ended: 09:47 Estimated Blood Loss: None. Findings: There was evidence of severe diverticulosis in the descending colon. Otherwise, the colon appeared to be normal. Complications: There were no immediate complications. Impression: Severe diverticulosis found in the descending colon. No sign of active diverticulitis Recommendations: Colonoscopy recommended in 10 years. Procedure Codes: 57757 - colonoscopy G0500 - moderate sedation ICD-9 [...] Visit Family Medicine Kevin Miranda MD [address] [place] [address] (Wo rk) documented as of [...] cecum, confirmed by appendiceal orifice, cecal strap (confederated goshute's foot), and ileocecal valve. The scope was withdrawn and the mucosa w as carefully examined. The quality of the preparation was good. The views were good. The patient's toleration of the procedure wa s good. Scope(s)/SN:[id number] Time Star lesly: 09:32 Cecum Time: 09:42 Time Ended: 09:47 Estimated Blood Loss: None. Findings: There was evidence of severe d iverticulosis in the descending colon. Otherwise, the colon a ppeared to be normal. Complications: There were no immediate c omplications. Impression: Severe diverticulosis found in the descending colon. No sign of active diverticulitis Recommendations: Colonoscopy recommended in 10 years. Procedure Codes: 93513 - colonoscopy G05 00 - moderate sedation [...] Pre-op documented in this encounter Care Teams Commodity Analyst Relationship Specialty Start Date End Date Laurie Elias NP PCP - General Family Medicine 03/02/1811/19/19 documented as of this encounter
--- OUTSIDE RECORDS SUMMARY | 2021-12-22 09:56 | XMS_ITS | Encounter Summary ---
:1945 Author Organization [facility] Address 330 [facility], [address] [place] [address] Care Team Providers Name Role Phone Laurie Elias NP Primary Care Provider Unavailable Encounter Details Date Type Department Care Team Description 03/07/2019 Refill [facility] actLaurie Carr NP [facility] [place] [address] Social History Tobacco Use Types Packs/Day Years Used Date Former Smoker Smokeless Tobacco: Never Used Alcohol Use Standard Drinks/Week Comments Yes 5 (1 standard drink = 0.6 oz pure alcoho l) Sex Assigned at Date Recorded Female 04/12/2019 2:19 PM EST documented as of this encounter Plan of Treatment Upcoming Encounters Date Type Specialty Care Team Description 04/19/2022 Office Visit Family Medicine Kevin Miarnda MD [address] [place], [place] [address] (Wo rk) documented as of this encounter Visit Diagnoses Not on filedocumented in this encounter Care Teams Safety Engineer Pressure Vessels Relationship Specialty Start Date End Date Laurie Elias NP PCP - General Family Medicine 03/02/1811/19/19 documented as of this encounter
--- OUTSIDE RECORDS SUMMARY | 2021-12-22 09:56 | XMS_ITS | Encounter Summary ---
:1945 Author Organization [facility] Address 330 [facility], [address] [place] [address] Care Team Providers Name Role Phone JadaHeatherLaurie HVAC ENGINEER Primary Care Provider Unavailable Encounter Details Date Type Department Care Team Description 05/02/2018 Rehab [facility] Physical Se lázaro Jason MD [address] [place] [address] Chronic low back pain, Therapy Pricila Curry, PT unspecified back pain [address] [facility], [facility], with [address] [place] [address] unspecified (Primary Dx) [phone] Social History Tobacco Use Types Packs/Day Years Used Date Former Smoker Smokeless Tobacco: Never Used Alcohol Use Standard Drinks/Week Comments Defer 0 (1 standard drink = 0.6 oz pure alcoho l) Sex Assigned at Date Recorded Female 04/12/2019 2:19 PM EST documented as of this encounter Progress Notes Pricila Curry, PT - 05/02/2018 12:00 PM EDT Rehabilitation Services Physical Therapy [address] [facility], [address] [facility] [address] PROGRESS NOTE visit 7 [facility] Molly Rios is a 73 y.o. female.who has been referred to physical therapy by Dr. Jason with dx of R hip pain(decreased ROM, pelvic pain, groin pain, R SI pain, chronic glut medius tendinopathy). Pt reports she is a very active person at baseline. Noticed R LBP in June after swimming (changedher technique and pain improved). Pt seen by PT at [facility] for R hip pain. Started doing side lying hip abd with 5 lb. Developed more pain (? Overdid her ex). + R sided groin pain. CC is weakness B hips. Referred to PT for consult. Will f/u with MD after completion of PT. Seen by ortho at [facility] done, advised to strengthen/stretch R LE. ?? [...] Visit Family Medicine Kevin Miranda MD [address] [place], [place] [address] (Wo rk) documented as of this encounter Visit Diagnoses Diagnosis Chronic low back pain, unspecified back pain laterality, with sciatica presence unspecified - Primary documented in this encounter Care Teams Chimney Supervisor Brick Relationship Specialty Start Date End Date Laurie Elias NP PCP - General Family Medicine 03/02/1811/19/19 documented as of this encounter
--- OUTSIDE RECORDS SUMMARY | 2021-12-22 09:56 | XMS_ITS | Encounter Summary ---
:1945 Author Organization [facility] Address [address] [facility], [address] [place] [address] Care Team Providers Name Role Phone Laurie Elias NP Primary Care Provider Unavailable Encounter Details Date Type Department Care Team Description 12/06/2018 Anesthesia Event Gustine Johny Jaramillo MD Gastroenterology/Endoscop [address] [facility] [place] [address] [place] [address] [phone] Anesthesia Record Procedure Summary Procedure Name [...] Medicine Kevin Miranda MD [facility] [place], [place] [address] (Wo rk) documented as [...] Pre-op documented in this encounter Care Teams Rescue Worker Relationship Specialty Start Date End Date Laurie Elias NP PCP - General Family Medicine 03/02/1811/19/19 documented as of this encounter
--- OUTSIDE RECORDS SUMMARY | 2021-12-22 09:56 | XMS_ITS | Encounter Summary ---
:1945 Author Organization [facility] Address 330 [facility], [address] [place] [address] Care Team Providers Name Role Phone Laurie Elias GRADES 1 THROUGH 5 TEACHER Primary Care Provider Unavailable Encounter Details Date Type Department Care Team Description 04/06/2018 Telephone [facility] zurita MD Consultants 330 [facility], [address] [facility] t, [facility] [address] [place], [place] [address] [place] [address] [phone] (Wo rk) Social History Tobacco Use Types [...] Visit Family Medicine Kevin Miranda MD [address] [place] [address] (Wo rk) documented as of this encounter Visit Diagnoses Not on filedocumented in this encounter Care Teams Clinic Licensed Practical Nurse Relationship Specialty Start Date End Date Laurie Elias, ANN PCP - General Family Medicine 03/02/1811/19/19 documented as of this encounter
--- OUTSIDE RECORDS SUMMARY | 2021-12-22 09:56 | XMS_ITS | Encounter Summary ---
:1945 Author Organization [facility] Address 330 [facility], [address] [place] [address] Care Team Providers Name Role Phone Laurie Elias NP Primary Care Provider Unavailable Reason for Referral Diagnostic Imaging (Routine) - Closed Specialty Diagnoses / Procedures Referred By Contact Refer red To Contact Diagnoses Hip pain, right Antolin Montana MD Procedures X-ray Hip 2-3 Views Right (Pelvis Optional) [address] [place] [address] Referral ID Status Reason Start Date Expiration Date Visits Requ ested Visits Authorized [id number] Closed 02/06/2019 02/06/2020 1 1 Reason for Visit Diagnostic Imaging (Routine) - Closed Specialty Diagnoses / Procedures Referred By Contact Refer red To Contact Diagnoses Hip pain, right Antolin Montana MD Procedures X-ray Hip 2-3 Views Right (Pelvis Optional) [address] [place] [address] Referral ID Status Reason Start Date Expiration Date Visits Requ ested Visits Authorized [id number] Closed 02/06/2019 02/06/2020 1 1 Encounter Details Date Type Department Care Team Description 02/06/2019 Hospital Encounter [facility] Jian Montana, X-ray at Medical Office [facility], [address] [place] [address] [facility], [address] [address] [phone] Social History Tobacco Use Types Packs/Day Years [...] Visit Family Medicine Kevin Miranda MD [facility]0 [place], [place] [address] (Wo rk) documented as [...] ation. Dictated: 02/06/2019 3:47 PM Report ID: [id number] Report signed in external system at 01/15 15:47 Reported By: Srinivasan Olson M.D. (resident ) ([id number]) Signed By: Jacoby Cunningham M.D. (FA ) Narrative 02/06/2019 3:47 PM EST RESPONSIBLE AIRCRAFT REFUELER: Jacoby Cunningham M.D. EXAMINATION: XR HIP 2-3 [...] be different from the original. RESPONSIBLE AIRCRAFT REFUELER: Jacoby Cunningham M.D. EXAMINATION: XR HIP 2-3 [...] ation. Dictated: 02/06/2019 3:47 PM Report ID: [id number] Report signed in external system at 01/15 15:47 Reported By: Srinivasan Olson M.D. (resident ) ([id number]) Signed By: Jacoby Cunningham M.D. ([facility] ) Antolin Montana MD IMG XR PROCEDURES documented in this encounter Visit Diagnoses Diagnosis Hip pain, right Pain in joint, pelvic region and thigh documented in this encounter Care Teams Six Horse Hitch Driver Relationship Specialty Start Date End Date Laurie Elias NP PCP - General Family Medicine 03/02/1811/19/19 documented as of this encounter
--- OUTSIDE RECORDS SUMMARY | 2021-12-22 09:56 | XMS_ITS | Encounter Summary ---
:1945 Author Organization [facility] Address 330 [facility], [address] [place] [address] Care Team Providers Name Role Phone JadaHeather zhaoecca ANN Primary Care Provider Unavailable Reason for Visit Reason Onset Date Comments Constipation 10/06/2018 Encounter Details Date Type Department Care Team Description 10/06/2018 Telephone [facility] Pr Kendra Grullon RN Constipation [address] [place] [address] Practice [phone] [address] [place], [place] [address] Social History Tobacco Use [...] for fever and pain. Patient is in [place] now. Patient will RTC if SXS worse. documented in this encounter Plan of Treatment Upcoming Encounters Date Type Specialty Care Team Description 04/19/2022 Office Visit Family Medicine Kevin Miranda MD [address] [place], [place] [address] (Wo rk) documented as of this encounter Visit Diagnoses Not on filedocumented in this encounter Care Teams Sales Designer Relationship Specialty Start Date End Date Laurie Elias NP PCP - General Family Medicine 03/02/1811/19/19 documented as of this encounter
--- OUTSIDE RECORDS SUMMARY | 2021-12-22 09:56 | XMS_ITS | Encounter Summary ---
:1945 Author Organization [facility] Address 330 [facility], [address] [place] [address] Care Team Providers Name Role Phone Laurie Elias INTERVENTIONAL RADIOLOGY RN Primary Care Provider Unavailable Encounter Details Date [...] Visit Family Medicine Kevin Miranda MD [address] [place] [address] (Wo rk) documented as of this encounter Visit Diagnoses Not on filedocumented in this encounter Care Teams Mid Level Game Designer Relationship Specialty Start Date End Date Laurie Elias NP PCP - General Family Medicine 03/02/1811/19/19 documented as of this encounter
--- OUTSIDE RECORDS SUMMARY | 2021-12-22 09:56 | XMS_ITS | Encounter Summary ---
:1945 Author Organization [facility] Address [address] [facility], [address] [place] [address] Care Team Providers Name Role Phone Laurie Elias NP Primary Care Provider Unavailable Reason for Referral Diagnostic Imaging (Routine) - Closed Specialty Diagnoses / Procedures Referred By Contact Refer red To Contact Radiology Diagnoses Diverticulitis Kevin Miranda MD Procedures CT Abdomen Pelvis with Contrast [address] [place] [address] Referral ID Status Reason Start Date Expiration Date Visits Requ ested Visits Authorized [id number] Closed 04/12/2019 04/11/2020 1 1 Encounter Details Date Type Department Care Team Description 04/12/2019 Office Visit Kevin Trimble, Acute c ystitis with hematuria (Primary Dx); Practice Diverticulitis [facility] [place] [address] [place] [address] [place], [place] [phone] Social History Tobacco Use Types Packs/Day Years [...] Visit Family Medicine Kevin Miranda MD [address] [place] [address] (Wo rk) documented as of [...] 04/12/2019. Dictated: 04/12/2019 8:31 PM Report ID: [id number] Report signed in external system at 04/12 20:31 Reported By: Reggie Padilla Jr., M.D. ( [facility]G) Signed By: Reggie Padilla Jr., M.D. ([facility]) Narrative 04/12/2019 8:31 PM EST RESPONSIBLE COMMERCIAL CREDIT SPECIALIST: Reggie Padilla Jr., M.D. EXAMINATION: CT ABDOMEN [...] might be different from the original. RESPONSIBLE COMMERCIAL CREDIT SPECIALIST: Reggie Padilla Jr., M.D. EXAMINATION: CT ABDOMEN [...] 04/12/2019. Dictated: 04/12/2019 8:31 PM Report ID: [id number] Report signed in external system at 04/12 20:31 Reported By: Reggie Padilla Jr., M.D. ( CUSG) Signed By: Reggie Padilla Jr., M.D. ([facility]) Kevin Miranda MD IMG CT PROCEDURES (ABNORMAL) Comprehensive metabolic panel (04/12/2019 2:31 PM EST) [facility] Method Time Signature Sodium 136 (L) 137 - 145 04/12/2019 [place] mmol/L 2:56 PM [facility] Potassium 4.4 3.5 - 5.1 04/12/2019 [place] mmol/L 2:56 PM [facility] CHLORIDE 99 98 - 107 04/12/2019 [place] mmol/L 2:56 PM [facility] CARBON DIOXIDE, 29.0 22.0 - 04/12/2019 [place] TOTAL 30.0 2:56 PM [facility] mmol/L LABORATORY ANION GAP 8.0 6 - 14 04/12/2019 [place] 2:56 PM [facility] GLUCOSE 109 (H) 70 - 99 04/12/2019 [facility] mg/dL 2:56 PM [facility] CALCIUM 9.5 8.3 - 10.3 04/12/2019 [facility] mg/dL 2:56 PM [facility] CREATININE 0.6 0.5 - 1.0 04/12/2019 [place] mg/dL 2:56 PM [facility] ALBUMIN 3.8 3.5 - 5.0 04/12/2019 [facility] g/dL 2:56 PM [facility] Bilirubin Total 0.4 0.2 - 1.3 04/12/2019 [place] mg/dL 2:56 PM [facility] BILIRUBIN DIRECT 0.3 0.0 - 0.4 04/12/2019 [place] mg/dL 2:56 PM [facility] ALKALINE 104 38 - 126 04/12/2019 [place] PHOSPHATASE U/L 2:56 PM [facility] AST (SGOT) 39 15 - 46 04/12/2019 [place] U/L 2:56 PM [facility] ALT 45 13 - 69 04/12/2019 [place] U/L 2:56 PM [facility] GFR >60 04/12/2019 [place] 2:56 PM [facility] PROTEIN TOTAL 6.7 6.3 - 8.2 04/12/2019 [place] g/dL 2:56 PM [facility] BUN 12 7 - 17 04/12/2019 [place] mg/dL 2:56 PM [facility] Specimen Anatomical Collection Method / Collection Time Recei nancy Time (Source) Location / Volume Laterality Blood Venous blood / Venipuncture / 04/12/2019 2:31 04/12/19 20 2:31 Unknown Unknown PM [facility] EST Kevin Miranda MD LAB BLOOD ORDERABLES Performing Organization Address City/State/ZIP Code Phon e Number [facility] [address] [address] LABORATORY CBC (04/12/2019 2:31 PM EST) P athologist Signature WBC 7.00 4.00 to 04/12/2019 [place] 11.00 x 2:42 PM [facility] 10*3u/L LABORATORY 10*3/uL nRBC 0 0 - 0 /100 04/12/2019 [place] WBCs 2:42 PM [facility] RBC 4.28 3.90 to 04/12/2019 [place] 5.20 x 2:42 PM [facility] 10*6/uL LABORATORY 10*6/uL HGB 13.6 12.0 to 04/12/2019 [place] 16.0 g/dL 2:42 PM [facility] g/dL LABORATORY HCT 40.0 36.0% to 04/12/2019 [place] 46.0% % 2:42 PM [facility] MCV 93.5 80.0 to 04/12/2019 [place] 100.0 fL fL 2:42 PM [facility] MCH 31.8 26.0 - 33.0 04/12/2019 [place] pg 2:42 PM [facility] MCHC 34.0 31.0 to 04/12/2019 [place] 37.0 g/dL 2:42 PM [facility] g/dL LABORATORY PLT 295 150 to 350 04/12/2019 [place] x 10*3u/l 2:42 PM [facility] 10*3u/L LABORATORY RDW-CV 13.0 11.5 - 14.5 04/12/2019 [place] % 2:42 PM [facility] Specimen Anatomical Collection Method / Collection Time Recei nancy Time (Source) Location / Volume Laterality Blood Venous blood / Venipuncture / 04/12/2019 2:31 04/12/19 20 2:31 Unknown Unknown PM EST PM EST Kevin Miranda MD LAB BLOOD ORDERABLES Performing Organization Address City/State/ZIP Code Phon e Number [facility] [address] [address] LABORATORY (ABNORMAL) Urine culture (04/12/2019 1:53 PM EST) Analysis Performed At [facility] Time Signature Urine Culture (A) [employer] [facility] Comment: ??CULTURE, URINE, ROUTINE ?Micro Number: ?[id number] ??Test Status: ? Final ??Specimen Source: ?? [...] Organization Address City/State/ZIP Code Phon e Number [employer] [address] [address] [place] [address], [address] [facility] [address] [place] [address], [facility] [address] [phone] Diagnost POCT urinalysis dipstick (04/12/2019 1:39 PM EST) [facility] gist Method Time Signature Color, UA Yellow [...] hemorrhage) documented in this encounter Care Teams Production Supply Equipment Tender Relationship Specialty Start Date End Date Laurie Elias NP PCP - General Family Medicine 03/02/1811/19/19 documented as of this encounter
--- OUTSIDE RECORDS SUMMARY | 2021-12-22 09:56 | XMS_ITS | Encounter Summary ---
:1945 Author Organization [facility] Address [address] [facility], [address] [place] [address] Care Team Providers Name Role Phone JadaHeatherLaurie CELERY STRIPPER Primary Care Provider Unavailable Encounter Details Date Type Department Care Team Description 06/22/2018 Rehab [facility] Physical Se lázaro Jason MD [address] [place] [address] Chronic low back pain, Therapy Pricila Curry, PT unspecified back pain [address] [facility], [facility], with [address] [place] [address] unspecified (Primary Dx) [phone] Social History Tobacco Use Types Packs/Day Years Used Date Former Smoker Smokeless Tobacco: Never Used Alcohol Use Standard Drinks/Week Comments Defer 0 (1 standard drink = 0.6 oz pure alcoho l) Sex Assigned at Date Recorded Female 04/12/2019 2:19 PM EST documented as of this encounter Progress Notes Pricila Curry, PT - 06/22/2018 1:00 PM EDT Rehabilitation Services Physical Therapy [address] [facility], [address] [facility] [address] PROGRESS NOTE visit 11 [facility] Molly Rios is a 73 y.o. female.who has been referred to physical therapy by Dr. Jason with dx of R hip pain(decreased ROM, pelvic pain, groin pain, R SI pain, chronic glut medius tendinopathy). Pt reports she is a very active person at baseline. Noticed R LBP in June after swimming (changedher technique and pain improved). Pt seen by PT at [facility] for R hip pain. Started doing side lying hip abd with 5 lb. Developed more pain (? Overdid her ex). + R sided groin pain. CC is weakness B hips. Referred to PT for consult. Will f/u with MD after completion of PT. Seen by ortho at [facility]x-rays done, advised to strengthen/stretch R [...] Visit Family Medicine Kevin Miranda MD [address] [place], [place] [address] (Wo rk) documented as of this encounter Visit Diagnoses Diagnosis Chronic low back pain, unspecified back pain laterality, with sciatica presence unspecified - Primary documented in this encounter Care Teams Machine Brusher Relationship Specialty Start Date End Date Laurie Elias NP PCP - General Family Medicine 03/02/1811/19/19 documented as of this encounter
--- OUTSIDE RECORDS SUMMARY | 2021-12-22 09:56 | XMS_ITS | Encounter Summary ---
:1945 Author Organization [facility] Address [address] [facility], [address] [place] [address] Care Team Providers Name Role Phone Laurie Elias BRIDGE REPAIRER Primary Care Provider Unavailable Encounter Details Date Type Department Care Team Description 03/25/2019 Scan Document - View Trini Gómez in Chart Practice BRIDGE REPAIRER [facility] [place] [address] Social History Tobacco Use Types Packs/Day Years [...] Visit Family Medicine Kevin Miranda MD [address] [place] [address] (Wo rk) documented as of this encounter Visit Diagnoses Not on filedocumented in this encounter Care Teams Activities Leader Relationship Specialty Start Date End Date Laurie Elias NP PCP - General Family Medicine 03/02/1811/19/19 documented as of this encounter
--- OUTSIDE RECORDS SUMMARY | 2021-12-22 09:56 | XMS_ITS | Encounter Summary ---
:1945 Author Organization [facility] Address [address] [facility], [address] [place] [address] Care Team Providers Name Role Phone Laurie Elias NP Primary Care Provider Unavailable Reason for Referral Diagnostic Imaging (Routine) - Closed Specialty Diagnoses / Procedures Referred By Contact Refer red To Contact Radiology Diagnoses Diverticulitis Kevin Miranda MD Procedures CT Abdomen Pelvis with Contrast [address] [place] [address] Referral ID Status Reason Start Date Expiration Date Visits Requ ested Visits Authorized [id number] Closed 04/12/2019 04/11/2020 1 1 Reason for Visit Auth/Cert Specialty Diagnoses / Procedures Referred By Contact Refer red To Contact Diagnoses Pericolonic abscess Procedures n/a Referral ID Status Reason Start Date Expiration Date Visits Requ ested Visits Authorized [id number] 1 1 Encounter Details Date Type Department Care Team Description 04/12/2019 Hospital Encounter [facility] CT Kevin Ken MD Scan [address] [place] [address] [phone] Social History Tobacco Use Types Packs/Day Years [...] 04/12/2019. Dictated: 04/12/2019 8:31 PM Report ID: [id number] Report signed in external system at 04/12 20:31 Reported By: Reggie Padilla Jr., M.D. ( [facility]) Signed By: Reggie Padilla Jr., M.D. ([facility]) Narrative 04/12/2019 8:31 PM EST RESPONSIBLE LEAK OPERATOR PARAFFIN PLANT: Reggie Padilla Jr., M.D. EXAMINATION: CT ABDOMEN [...] might be different from the original. RESPONSIBLE LEAK OPERATOR [employer]: Reggie Padilla Jr., M.D. EXAMINATION: CT ABDOMEN [...] 04/12/2019. Dictated: 04/12/2019 8:31 PM Report ID: [id number] Report signed in external system at 04/12 [...] dose documented in this encounter Care Teams Fare Collector Relationship Specialty Start Date End Date Laurie Elias NP PCP - General Family Medicine 03/02/1811/19/19 documented as of this encounter
--- OUTSIDE RECORDS SUMMARY | 2021-12-22 09:56 | XMS_ITS | Encounter Summary ---
:1945 Author Organization [facility] Address [address] [facility], [address] [place] [address] Care Team Providers Name Role Phone Laurie Elias NP Primary Care Provider Unavailable Reason for Visit Specialty (Routine) - Closed Specialty Diagnoses / Referred By Contact Referred To Contact Procedures Physical Medicine and Diagnoses Low back pain MRI FOLLOW-UP Lisa Sotelo MD Mostoufi, Seyed A, Rehabilitation Procedures FOLLOW UP [address], [place] [address] [address] [place] [address] Fax: Referral ID Status Reason Start Date Expiration Date Visits Requ ested Visits Authorized [id number] Closed 06/13/2017 06/13/2018 8 8 Encounter Details Date Type Department Care Team Description 05/29/2018 Office Visit [facility], Lumbar fa cet arthropathy (Primary Dx); [facility] It band syndrome, left; [address] Lateral knee pain, left; [place] [address] [place], [place] Groin pain, chronic, left; [phone] Tendinopathy of left gluteus medius Social History [...] from the original note were not included. [facility] [employer] Dear Laurie Elias NP, I had a pleasure of reevaluating Ms. Molly Rios today at [facility], [facility], Spine and Regenerative [facility]. Thank you for your referral and please call me if you have any questions regarding this encounter. Cezar Jason MD REASON FOR PM&R CONSULT Follow-up INTERVAL HISTORY : Molly Rios (1945) presenting today 06/04/18 for a follow-up. Since I saw her, [facility] Wyatt and diagnosed by him [...] presentationnot require intervention. EDUCATION AND COUNSELING : [employer] In addition to in person counseling, patient [...] negative at a time of visit. RESULT REVIEWED([id number]) Available PACS as well as results reviewed [...] Office Visit Family Medicine Kevin Miranda MD [address] [place] [address] (Wo rk) documented as of this encounter Visit Diagnoses Diagnosis Lumbar facet arthropathy - Primary Spondylosis of unspecified site without mention of myelopathy It band syndrome, left Lateral knee pain, left Groin pain, chronic, left Tendinopathy of left gluteus medius documented in this encounter Care Teams Electrostatic Paint Operator Relationship Specialty Start Date End Date Laurie Elias NP PCP - General Family Medicine 03/02/1811/19/19 documented as of this encounter
--- OUTSIDE RECORDS SUMMARY | 2021-12-22 09:56 | XMS_ITS | Encounter Summary ---
:1945 Author Organization [facility] Address [address] [facility], [address] [place] [address] Care Team Providers Name Role Phone JadaHeatherLaurie EROSION CONTROL SPECIALIST Primary Care Provider Unavailable Encounter Details Date Type Department Care Team Description 04/26/2018 Rehab [facility] Physical Se lázaro Jason MD [address] [place] [address] Chronic low back pain, Therapy Pricila Curry, PT unspecified back pain [address] [facility], [facility], with [address] [place] [address] unspecified (Primary Dx) [phone] Social History Tobacco Use Types Packs/Day Years Used Date Former Smoker Smokeless Tobacco: Never Used Alcohol Use Standard Drinks/Week Comments Defer 0 (1 standard drink = 0.6 oz pure alcoho l) Sex Assigned at Date Recorded Female 04/12/2019 2:19 PM EST documented as of this encounter Progress Notes Pricila Curry, PT - 04/26/2018 2:30 PM EDT Rehabilitation Services Physical Therapy [address] [facility], [address] [facility] [address] PROGRESS NOTE visit 6 [facility] Molly Rios is a 73 y.o. female.who has been referred to physical therapy by Dr. Jason with dx of R hip pain(decreased ROM, pelvic pain, groin pain, R SI pain, chronic glut medius tendinopathy). Pt reports she is a very active person at baseline. Noticed R LBP in June after swimming (changedher technique and pain improved). Pt seen by PT at [facility] for R hip pain. Started doing side lying hip abd with 5 lb. Developed more pain (? Overdid her ex). + R sided groin pain. CC is weakness B hips. Referred to PT for consult. Will f/u with MD after completion of PT. Seen by ortho at [facility]-x-rays done, advised to strengthen/stretch R LE. ?? [...] Visit Family Medicine Kevin Miranda MD [address] [place], [place] [address] (Wo rk) documented as of this encounter Visit Diagnoses Diagnosis Chronic low back pain, unspecified back pain laterality, with sciatica presence unspecified - Primary documented in this encounter Care Teams Pattern Keeper Relationship Specialty Start Date End Date Laurie Elias NP PCP - General Family Medicine 03/02/1811/19/19 documented as of this encounter
--- OUTSIDE RECORDS SUMMARY | 2021-12-22 09:56 | XMS_ITS | Encounter Summary ---
:1945 Author Organization [facility] Address [address] [facility], [address] [place] [address] Care Team Providers Name Role Phone Laurie Elias NP Primary Care Provider Unavailable Encounter Details Date Type Department Care Team Description 12/06/2018 Hospital Encounter [place] Po Astudillo am, MD Gastroenterology/[facility] [address] [facility], [address] [facility] [place]et [place], [place] [address] [place] [address] [phone] Social History Tobacco Use Types Packs/Day [...] INSTRUCTIONS: Please call Dr. Astudillo office at [phone] if you develop the following symptoms in [...] cecum, confirmed by appendiceal orifice, cecal strap (mesa grande's foot), and ileocecal valve. The scope was withdrawn and the mucosa was carefully examined. The quality of the preparation was good. The views were good. The patient's toleration of the procedure was good. Scope(s)/SN:[id number] Time Started: 09:32 Cecum Time: 09:42 Time Ended: 09:47 Estimated Blood Loss: None. Findings: There was evidence of severe diverticulosis in the descending colon. Otherwise, the colon appeared to be normal. Complications: There were no immediate complications. Impression: Severe diverticulosis found in the descending colon. No sign of active diverticulitis Recommendations: Colonoscopy recommended in 10 years. Procedure Codes: 59741 - colonoscopy G0500 - moderate sedation ICD-9 [...] Visit Family Medicine Kevin Miranda MD [address] [place] [address] (Wo rk) documented as of [...] cecum, confirmed by appendiceal orifice, cecal strap (mesa grande's foot), and ileocecal valve. The scope was withdrawn and the mucosa w as carefully examined. The quality of the preparation was good. The views were good. The patient's toleration of the procedure wa s good. Scope(s)/SN:[id number] Time Star lesly: 09:32 Cecum Time: 09:42 Time Ended: :47 Estimated Blood Loss: None. Findings: There was evidence of severe d iverticulosis in the descending colon. Otherwise, the colon a ppeared to be normal. Complications: There were no immediate c omplications. Impression: Severe diverticulosis found in the descending colon. No sign of active diverticulitis Recommendations: Colonoscopy recommended in 10 years. Procedure Codes: 33892 - colonoscopy G05 00 - moderate sedation [...] Pre-op documented in this encounter Care Teams Planning Aide Relationship Specialty Start Date End Date Laurie Elias NP PCP - General Family Medicine 03/02/1811/19/19 documented as of this encounter
--- OUTSIDE RECORDS SUMMARY | 2021-12-22 09:56 | XMS_ITS | Encounter Summary ---
:1945 Author Organization [facility] Address [address] [facility], [address] [place] [address] Care Team Providers Name Role Phone Laurie Elias SAMPLE PREP TECHNICIAN Primary Care Provider Unavailable Encounter Details Date Type Department Care Team Description 04/27/2018 Refill [facility] actLaurie Carr NP [facility] [place] [address] Social History Tobacco Use Types Packs/Day Years [...] Visit Family Medicine Kevin Miranda MD [address] [place], [place] [address] (Wo rk) documented as of this encounter Visit Diagnoses Not on filedocumented in this encounter Care Teams Home Economist Relationship Specialty Start Date End Date Laurie Elias NP PCP - General Family Medicine 03/02/1811/19/19 documented as of this encounter
--- OUTSIDE RECORDS SUMMARY | 2021-12-22 09:56 | XMS_ITS | Encounter Summary ---
:1945 Author Organization [facility] Address [address] [facility], [address] [place] [address] Care Team Providers Name Role Phone Kevin Miranda MD Primary Care Provider Encounter Details Date Type Department Care Team Description 04/10/2018 Telephone [facility] Laurie Brown, ANN [address] [place] [address] Social History Tobacco Use Types Packs/Day Years [...] Visit Family Medicine Kevin Miranda MD [address] [place] [address] (Wo rk) documented as of this encounter Visit Diagnoses Not on filedocumented in this encounter Care Teams Director Of Global Marketing Relationship Specialty Start Date End Date Kevin Miranda MD PCP - General Family Medicine 11/20/[address] [place] [address] documented as of this encounter
--- OUTSIDE RECORDS SUMMARY | 2021-12-22 09:56 | XMS_ITS | Encounter Summary ---
:1945 Author Organization [facility] Address [address] [facility], [address] [place] [address] Care Team Providers Name Role Phone Laurie Elias NP Primary Care Provider Unavailable Encounter Details Date Type Department Care Team Description 04/10/2019 Telephone [facility] Kevin Crowe MD [facility] [place] [address] [place], [place] [address] [place] [address] [phone] (Wo rk) Social History Tobacco Use Types [...] Visit Family Medicine Kevin Miranda MD [address] [place], [place] [address] (Wo rk) documented as of this encounter Visit Diagnoses Not on filedocumented in this encounter Care Teams Crating And Moving Estimator Relationship Specialty Start Date End Date Laurie Elias NP PCP - General Family Medicine 03/02/1811/19/19 documented as of this encounter
--- OUTSIDE RECORDS SUMMARY | 2021-12-22 09:56 | XMS_ITS | Encounter Summary ---
:1945 Author Organization [facility] Address [address] [facility], [address] [place] [address] Care Team Providers Name Role Phone Laurie Elias SALES CONSULTANT RESIDENTIAL MANAGER Primary Care Provider Unavailable Encounter Details [...] Visit Family Medicine Kevin Miranda MD [address] [place] [address] (Wo rk) documented as of this encounter Visit Diagnoses Not on filedocumented in this encounter Care Teams Verification Rep Relationship Specialty Start Date End Date Laurie Elias NP PCP - General Family Medicine 03/02/1811/19/19 documented as of this encounter
--- OUTSIDE RECORDS SUMMARY | 2021-12-22 09:56 | XMS_ITS | Encounter Summary ---
:1945 Author Organization [facility] Address [address] [facility], [address] [place] [address] Care Team Providers Name Role Phone Laurie Elias INNER TUBE TUBER MACHINE OPERATOR Primary Care Provider Unavailable Encounter Details Date Type Department Care Team Description 03/08/2019 Orders Only [facility] actLaurie Carr NP [facility] [place] [address] Social History Tobacco Use Types Packs/Day Years [...] Visit Family Medicine Kevin Miranda MD [address] [place], [place] [address] (Wo rk) documented as of this encounter Visit Diagnoses Not on filedocumented in this encounter Care Teams Aed Trainer Relationship Specialty Start Date End Date Laruie Elias NP PCP - General Family Medicine 03/02/1811/19/19 documented as of this encounter
--- OUTSIDE RECORDS SUMMARY | 2021-12-22 09:56 | XMS_ITS | Encounter Summary ---
:1945 Author Organization [facility] Address 330 [facility], [address] [place] [address] Care Team Providers Name Role Phone Laurie Elias STEEL ERECTING PUSHER Primary Care Provider Unavailable Encounter Details Date Type Department Care Team Description 03/31/2018 Telephone [facility] zurita MD Consultants 330 [facility], 300 [facility] t, [facility] [address] [place], [place] [id number] [place] [address] [phone] (Wo rk) Social History Tobacco Use Types [...] Visit Family Medicine Kevin Miranda MD [address] [place] [address] (Wo rk) documented as of this encounter Visit Diagnoses Not on filedocumented in this encounter Care Teams Single Fold Machine Operator Relationship Specialty Start Date End Date Laurie Elias NP PCP - General Family Medicine 03/02/1811/19/19 documented as of this encounter
--- OUTSIDE RECORDS SUMMARY | 2021-12-22 09:56 | XMS_ITS | Encounter Summary ---
:1945 Author Organization [facility] Address 330 [facility], [address] [place] [address] Care Team Providers Name Role Phone Laurie Elias TOUR OPERATOR Primary Care Provider Unavailable Encounter Details Date Type Department Care Team Description 01/24/2019 Scan Document - View Trini Gómez in Chart Practice TOUR OPERATOR [facility] [place] [address] Social History Tobacco Use Types Packs/Day Years [...] Visit Family Medicine Kevin Miranda MD [address] [place] [address] (Wo rk) documented as of this encounter Visit Diagnoses Not on filedocumented in this encounter Care Teams Usability Engineer Relationship Specialty Start Date End Date Laurie Elias NP PCP - General Family Medicine 03/02/1811/19/19 documented as of this encounter
--- OUTSIDE RECORDS SUMMARY | 2021-12-22 09:56 | XMS_ITS | Encounter Summary ---
:1945 Author Organization [facility] Address 330 [facility], [address] [place] [address] Care Team Providers Name Role Phone Laurie Elias NP Primary Care Provider Unavailable Encounter Details Date Type Department Care Team Description 11/23/2018 Office Visit Moriarty Sherif, Diverticulosis Gastrointestinal MD [place] (Primary Dx) Consultants [address] [place], [place] [id number] [place] [address] Social History Tobacco Use Types Packs/Day Years [...] were not included. 11/25/18 Dallas Gorman M.D. aircraft engine cylinder mechanic, [facility] Chief, Gastroenterology [facility] [address] [place] [address] FAX [phone] Email: [email or web address] 11/25/18 Re: [id number] Molly Rios Referring physician: Laurie Elias NP [address] [facility] [address] Molly Rios is a 73 y.o. female [...] Visit Family Medicine Kevin Miranda MD [address] [place] [address] (Wo rk) documented as of this encounter Visit Diagnoses Diagnosis Diverticulosis - Primary Diverticulosis of colon (without mention of hemorrhage) documented in this encounter Care Teams Truck Packer Relationship Specialty Start Date End Date Laurie Elias NP PCP - General Family Medicine 03/02/1811/19/19 documented as of this encounter
--- OUTSIDE RECORDS SUMMARY | 2021-12-22 09:56 | XMS_ITS | Encounter Summary ---
:1945 Author Organization [facility] Address 330 [facility], [address] [place] [address] Care Team Providers Name Role Phone JadaHeatherLaurie PHOTOGRAMMETRIC TECH Primary Care Provider Unavailable Encounter Details Date Type Department Care Team Description 05/15/2018 Rehab [facility] Physical Se lázaro Jason MD [address] [place] [address] Chronic low back pain, Therapy Pricila Curry, PT unspecified back pain 725 [facility], [facility], with [address] [place] [address] unspecified (Primary Dx) [phone] Social History Tobacco Use Types Packs/Day Years Used Date Former Smoker Smokeless Tobacco: Never Used Alcohol Use Standard Drinks/Week Comments Defer 0 (1 standard drink = 0.6 oz pure alcoho l) Sex Assigned at Date Recorded Female 04/12/2019 2:19 PM EST documented as of this encounter Progress Notes Pricila Curry, PT - 05/15/2018 2:00 PM EDT Rehabilitation Services Physical Therapy 725 [facility], [address] [facility] [address] PROGRESS NOTE visit 8 [facility] Molly Rios is a 73 [...] Pt seen by PT at [facility] for R hip pain. Started doing side lying hip abd with 5 lb. Developed more pain (? Overdid her ex). + R sided groin pain. CC is weakness B hips. Referred to PT for consult. Will f/u with MD after completion of PT. Seen by ortho at [facility]-x-rays done, advised to strengthen/stretch R LE. ?? [...] injection) Subjective Has made appointment with Rafa ([facility]) 05/25/[address] Jason 05/30/18 S/p DPM [...] Visit Family Medicine Kevin Miranda MD [address] [place], [place] [phone] (Wo rk) documented as of this encounter Visit Diagnoses Diagnosis Chronic low back pain, unspecified back pain laterality, with sciatica presence unspecified - Primary documented in this encounter Care Teams Continuous Dryout Operator Helper Relationship Specialty Start Date End Date Laurie Elias NP PCP - General Family Medicine 03/02/1811/19/19 documented as of this encounter
--- OUTSIDE RECORDS SUMMARY | 2021-12-22 09:56 | XMS_ITS | Encounter Summary ---
:1945 Author Organization [facility] Address 330 [facility], [address] [place] [address] Care Team Providers Name Role Phone JadaHeatherLaurie BANKRUPTCY PARALEGAL Primary Care Provider Unavailable Encounter Details Date Type Department Care Team Description 05/30/2018 Rehab [facility] Physical Se lázaro Jason MD [address] [place] [address] Chronic low back pain, Therapy Pricila Curry, PT unspecified back pain 725 [facility], [facility], with [address] [place] [address] unspecified (Primary Dx) [phone] Social History Tobacco Use Types Packs/Day Years Used Date Former Smoker Smokeless Tobacco: Never Used Alcohol Use Standard Drinks/Week Comments Defer 0 (1 standard drink = 0.6 oz pure alcoho l) Sex Assigned at Date Recorded Female 04/12/2019 2:19 PM EST documented as of this encounter Progress Notes Pricila Curry, PT - 05/30/2018 2:30 PM EDT Rehabilitation Services Physical Therapy 7[address] [facility], [address] [facility] [address] PROGRESS NOTE visit 9 [facility] Molly Rios is a 73 y.o. female.who has been referred to physical therapy by Dr. Jason with dx of R hip pain(decreased ROM, pelvic pain, groin pain, R SI pain, chronic glut medius tendinopathy). Pt reports she is a very active person at baseline. Noticed R LBP in June after swimming (changedher technique and pain improved). Pt seen by PT at [facility] for R hip pain. Started doing side lying hip abd with 5 lb. Developed more pain (? Overdid her ex). + R sided groin pain. CC is weakness B hips. Referred to PT for consult. Will f/u with MD after completion of PT. Seen by ortho at [facility]-x-rays done, advised to strengthen/stretch R LE. ?? [...] in 6 weeks S/p visit to ortho [facility] (Dr. Coleman)- R groin pain is from [...] Medicine Kevin Miranda MD [facility]0 [place], [place] [address] (Wo rk) documented as of this encounter Visit Diagnoses Diagnosis Chronic low back pain, unspecified back pain laterality, with sciatica presence unspecified - Primary documented in this encounter Care Teams Master Barber Relationship Specialty Start Date End Date Laurie Elias NP PCP - General Family Medicine 03/02/1811/19/19 documented as of this encounter
--- OUTSIDE RECORDS SUMMARY | 2021-12-22 09:56 | XMS_ITS | Encounter Summary ---
:1945 Author Organization [facility] Address 330 [facility], [address] [place] [address] Care Team Providers Name Role Phone Kevin Miranda MD Primary Care Provider Reason for Visit Reason Comments Med Refill Encounter Details Date Type Department Care Team Description 09/05/2018 Refill [facility] Pr Laurie Brown, MARINE RADIO INSTALLER AND SERVICER [address] [place] [address] Social History Tobacco Use Types Packs/Day Years [...] Visit Family Medicine Kevin Miranda MD [address] [place] [address] (Wo rk) documented as of this encounter Visit Diagnoses Not on filedocumented in this encounter Care Teams Flour Blender Relationship Specialty Start Date End Date Kevin Miranda MD PCP - General Family Medicine 11/20/[address] [place] [address] documented as of this encounter
--- OUTSIDE RECORDS SUMMARY | 2021-12-22 09:56 | XMS_ITS | Encounter Summary ---
:1945 Author Organization [facility] Address 330 [facility], [address] [place] [address] Care Team Providers Name Role Phone Laurie Elias RECORD PRESS OPERATOR Primary Care Provider Unavailable Encounter Details Date Type Department Care Team Description 10/06/2018 Telephone [facility] [place] zurita MD Consultants 330 [facility], [address] [facility] [address], [facility] [address] [place], [place] [phone] [place] [address] [phone] (Wo rk) Social History Tobacco Use Types [...] Visit Family Medicine Kevin Miranda MD [address] [place] [address] (Wo rk) documented as of this encounter Visit Diagnoses Not on filedocumented in this encounter Care Teams Supervisor Plastics Relationship Specialty Start Date End Date Laurie Elias NP PCP - General Family Medicine 03/02/1811/19/19 documented as of this encounter
--- OUTSIDE RECORDS SUMMARY | 2021-12-22 09:56 | XMS_ITS | Encounter Summary ---
:1945 Author Organization [facility] Address 330 [facility], [address] [place] [address] Care Team Providers Name Role Phone Laurie Elias HOPPER FILLER Primary Care Provider Unavailable Encounter Details Date Type Department Care Team Description 02/06/2019 Scan Document - View RaleighPaula Al, in Chart Practice [address] [place] [address] [phone] Social History Tobacco Use Types Packs/Day Years [...] Visit Family Medicine Kevin Miranda MD [address] [place] [address] (Wo rk) documented as of this encounter Visit Diagnoses Not on filedocumented in this encounter Care Teams Magazine Feeder Relationship Specialty Start Date End Date Laurie Elias NP PCP - General Family Medicine 03/02/1811/19/19 documented as of this encounter
--- OUTSIDE RECORDS SUMMARY | 2021-12-22 09:56 | XMS_ITS | Encounter Summary ---
:1945 Author Organization [facility] Address 330 [facility], [address] [place] [address] Care Team Providers Name Role Phone Laurie Elias MIDDLE SCHOOL DIRECTOR Primary Care Provider Unavailable Encounter Details Date Type Department Care Team Description 04/06/2018 Scan Document - View Trini Gómez in Chart Practice MIDDLE SCHOOL DIRECTOR [facility] [place] [address] Social History Tobacco Use Types Packs/Day Years [...] Visit Family Medicine Kevin Miranda MD [address] [place] [phone] (Wo rk) documented as of this encounter Visit Diagnoses Not on filedocumented in this encounter Care Teams Patient Resource Coordinator Relationship Specialty Start Date End Date Laurie Elias NP PCP - General Family Medicine 03/02/1811/19/19 documented as of this encounter
--- OUTSIDE RECORDS SUMMARY | 2021-12-22 09:56 | XMS_ITS | Encounter Summary ---
:1945 Author Organization [facility] Address 330 [facility], [address] [place] [address] Care Team Providers Name Role Phone JadaHeatherLaurie DYNAMO TENDER Primary Care Provider Unavailable Encounter Details Date Type Department Care Team Description 06/06/2018 Rehab [facility] Physical Se lázaro Jason MD [address] [place] [address] Chronic low back pain, Therapy Pricila Curry, PT unspecified back pain 725 [facility], [facility], with [address] [place] [address] unspecified (Primary Dx) [phone] Social History Tobacco Use Types Packs/Day Years Used Date Former Smoker Smokeless Tobacco: Never Used Alcohol Use Standard Drinks/Week Comments Defer 0 (1 standard drink = 0.6 oz pure alcoho l) Sex Assigned at Date Recorded Female 04/12/2019 2:19 PM EST documented as of this encounter Progress Notes Pricila Curry, PT - 06/06/2018 1:30 PM EDT Rehabilitation Services Physical Therapy 725 [facility], [address] [facility] [address] PROGRESS NOTE visit 10 [facility] Molly Rios is a 73 y.o. female.who has been referred to physical therapy by Dr. Jason with dx of R hip pain(decreased ROM, pelvic pain, groin pain, R SI pain, chronic glut medius tendinopathy). Pt reports she is a very active person at baseline. Noticed R LBP in June after swimming (changedher technique and pain improved). Pt seen by PT at [facility] for R hip pain. Started doing side lying hip abd with 5 lb. Developed more pain (? Overdid her ex). + R sided groin pain. CC is weakness B hips. Referred to PT for consult. Will f/u with MD after completion of PT. Seen by ortho at [facility]-x-rays done, advised to strengthen/stretch R [...] Visit Family Medicine Kevin Miranda MD [address] [place] [address] (Wo rk) documented as of this encounter Visit Diagnoses Diagnosis Chronic low back pain, unspecified back pain laterality, with sciatica presence unspecified - Primary documented in this encounter Care Teams Engine Repairer Service Relationship Specialty Start Date End Date Laurie Elias NP PCP - General Family Medicine 03/02/1811/19/19 documented as of this encounter
--- OUTSIDE RECORDS SUMMARY | 2021-12-22 09:56 | XMS_ITS | Encounter Summary ---
:1945 Author Organization [facility] Address 330 [facility], [address] [place] [address] Care Team Providers Name Role Phone Laurie Elias DRESSAGE INSTRUCTOR Primary Care Provider Unavailable Encounter Details [...] Visit Family Medicine Kevin Miranda MD [address] [place] [address] (Wo rk) documented as of this encounter Visit Diagnoses Not on filedocumented in this encounter Care Teams Veterinary Inspector Relationship Specialty Start Date End Date Laurie Elias NP PCP - General Family Medicine 03/02/1811/19/19 documented as of this encounter
--- OUTSIDE RECORDS SUMMARY | 2021-12-22 09:56 | XMS_ITS | Encounter Summary ---
:1945 Author Organization [facility] Address 330 [facility], [address] [place] [address] Care Team Providers Name Role Phone Laurie Elias NP Primary Care Provider Unavailable Reason for Referral Diagnostic Imaging (Routine) - Closed Specialty Diagnoses / Procedures Referred By Contact Refer red To Contact Radiology Diagnoses Diverticulitis Laurie Elias NP Procedures CT Abdomen Pelvis with Contrast [address] [place] [address] Referral ID Status Reason Start Date Expiration Date Visits Requ ested Visits Authorized [id number] Closed 04/09/2018 04/09/2019 1 1 Encounter Details Date Type Department Care Team Description 04/07/2018 Office Visit Kaushik Elias, Diverticul itis (Primary Dx); Practice ANN Sullivan Vitamin D deficiency [address] [place] [phone] Social History Tobacco Use Types Packs/Day Years [...] pain. Discussed case with Dr. Gorman at [facility], who recommended repeating CT to [...] Visit Family Medicine Kevin Miranda MD [address] [place], [place] [address] (Wo rk) Scheduled Orders [...] are i n the results section. CBC (INCLUDES Routine 04/07/2018 1:28 PM Results for this DIFFERENTIAL AND EST procedure a re in [facility])- [facility] the result s ONLY section. documented in this encounter Results [facility] - CBC (with Differential and Platelets) (04/07/2018 1:28 PM EST) [facility] Method Time Signature White Blood 10.3 3.8 - [facility] Count 10.8 [facility]/ [facility] uL [facility]ost Red Blood Count 4.72 3.80 - [facility] ics 5.10 [place] [facility] L [facility] Hemoglobin 14.5 11.7 - [facility] 15.5 g/dL [place] [facility] Hematocrit 42.9 35.0 - [facility] 45.0 % [place] [facility] MCV 90.9 80.0 - [facility] 100.0 fL [place] [facility] MCH 30.7 27.0 - [facility] 33.0 pg [place] [facility] MCHC 33.8 32.0 - [facility] 36.0 g/dL [place] [facility] MRDW 12.7 11.0 - [facility] 15.0 % [place] [facility] Platelet count 398 140 - 400 [facility] cs [place] [facility] MPV 10.0 7.5 - [facility] 12.5 fL [place] [facility] Absolute 7,189 1,500 - [facility] Neutrophil Count 7,800 [place] cells/[facility] Lymphosytes 1,978 850 - [facility] absolute 3,900 [place] cells/[facility] Absolute 834 200 - 950 [facility] Monocyte count cells/uL [place] [facility] Absolute 175 15 - 500 [facility] Eosinophil count cells/uL [place] [facility] Lymphocyte 124 0 - 200 [facility] cells/uL [place] [facility] Neutrophils 69.8 % [facility] [place] [facility] Lymphocyte 19.2 % [facility] [place] [facility] Monocytes 8.1 % [facility] [place] [facility] Eosinophil 1.7 % [facility] [place] [facility] Basophil 1.2 % [facility] [place] [facility] Specimen Anatomical Collection Method Collection Time Receive d Time (Source) Location / / Volume Laterality 04/07/2018 1:28 PM 9 1:29 EST PM EST Laurie Elias NP LAB BLOOD ORDERABLES Performing Organization Address City/State/ZIP Code Phon e Number [employer] [address] [address] [place] [address], [address] [employer] [address] [place] [address] [place] [address] [phone] [employer] Vitamin D 1,25 dihydroxy (04/07/2018 1:28 PM EST) P athologist Signature Vitamin 62 18 - 72 [facility] 1,25-OH,Total pg/mL Diagnostics/[facility] Vitamin D3, 62 pg/mL [facility] 1,25-OH Diagnostics/[facility] Vitamin <8 pg/mL [facility] D2,1,25-OH Diagnostics/[facility] Comment: Vitamin D3, 1,25(OH) indicates both endo genous production and supplementation. Vitamin D2, 1,25(OH)2 is an indicator of exogenous sources, hidalgo ch as diet or supplementation. ??Interpretation and th erapy are based on measurement of Vitamin D,1,25(OH)2, T otal. This test was developed and its analytic al performance characteristics have been de termined by [employer] [facility] [place] [facility], [place], [place]. It has not been cleared or approved by [facility]. This assay has been validated pursuant to the CLIA regulations and is used for clinical pur poses. Specimen Anatomical Collection Method Collection Time Receive d Time (Source) Location / / Volume Laterality Blood Venous blood / 04/07/2018 1:28 PM 019 1:29 Unknown EST PM EST Laurie Elias NP LAB BLOOD ORDERABLES Performing Organization Address City/State/ZIP Code Phon e Number [employer] [facility], [address] [phone] [place] [address], [address] [employer] [address] [place] [address] Diagnostics/[facility] documented in this encounter Visit Diagnoses Diagnosis Diverticulitis - Primary Diverticulitis of colon (without mention of hemorrhage) Vitamin D deficiency documented in this encounter Care Teams Property Insurance Claims Examiner Relationship Specialty Start Date End Date Laurie Elias NP PCP - General Family Medicine 03/02/1811/19/19 documented as of this encounter
--- OUTSIDE RECORDS SUMMARY | 2021-12-22 09:56 | XMS_ITS | Encounter Summary ---
:1945 Author Organization [facility] Address 330 [facility], [address] [place] [address] Care Team Providers Name Role Phone Laurie Elias BASKET MENDER Primary Care Provider Unavailable Encounter Details Date Type Department Care Team Description 04/07/2018 Telephone [facility] [place] zurita MD Consultants 330 [facility], 300 [facility] t, [facility] [[email or web address] [address] [place], [place] [address] [place] [address] [phone] (Wo rk) Social History Tobacco Use Types [...] Visit Family Medicine Kevin Miranda MD [address] [place] [address] (Wo rk) documented as of this encounter Visit Diagnoses Not on filedocumented in this encounter Care Teams Creasing And Cutting Press Feeder Relationship Specialty Start Date End Date Laurie Elias NP PCP - General Family Medicine 03/02/1811/19/19 documented as of this encounter
--- OUTSIDE RECORDS SUMMARY | 2021-12-22 09:56 | XMS_ITS | Encounter Summary ---
:1945 Author Organization [facility] Address 330 [facility], [address] [place] [address] Care Team Providers Name Role Phone Laurie Elias NP Primary Care Provider Unavailable Reason for Referral Specialty (Routine) - Closed Specialty Diagnoses / Procedures Referred By Contact Refer red To Contact Otolaryngology Diagnoses Tinnitus of right ear Kevin Miranda MD [address] [place] [address] Referral ID Status Reason Start Date Expiration Date Visits V isits Requested Authorized [id number] Closed Specialty 01/22/2019 01/22/2020 1 1 Services Required iagnostic Imaging (Routine) - Closed Specialty Diagnoses / Procedures Referred By Contact Refer red To Contact Diagnoses Dense breasts Kevin Miranda MD Procedures Ultrasound Breast Screening Automated Breast Volume Scanner (ABVS) Bilateral *screening ultrasounds only* [address] [place] [address] Referral ID Status Reason Start Date Expiration Date Visits Requ ested Visits Authorized [id number] Closed 01/22/2019 01/22/2020 1 1 iagnostic Imaging (Routine) - Closed Specialty Diagnoses / Procedures Referred By Contact Refer red To Contact Radiology Diagnoses Dense breasts Kevin Miranda MD Procedures MAMMOGRAPHY SCREENING MAMMOGRAM [address] [place] [address] Referral ID Status Reason Start Date Expiration Date Visits Requ ested Visits Authorized [id number] Closed 01/22/2019 01/22/2020 1 1 Reason for Visit Reason Comments Cerumen Impaction Encounter Details Date Type Department Care Team Description 01/22/2019 Office Visit Kevin Trimble Diverti culdavina (Primary Dx); Practice MD Tinnitus of right ear; [address] [place] [address] [place] Hiatal hernia with GERD; [place] [address] [place], [place] Dense breasts [phone] Social History Tobacco Use Types Packs/Day Years [...] my presence by the student and/or biomedical analytical scientist and verified by me. This note is [...] Miranda MD [facility] [place], [place] [address] (Wo rk) Scheduled Orders [...] mammogram documented in this encounter Care Teams Line Up Examiner Relationship Specialty Start Date End Date Laurie Elias NP PCP - General Family Medicine 03/02/1811/19/19 documented as of this encounter
--- OUTSIDE RECORDS SUMMARY | 2021-12-22 09:56 | XMS_ITS | Encounter Summary ---
:1945 Author Organization [facility] Address 330 [facility], [address] [place] [address] Care Team Providers Name Role Phone Kevin Miranda MD Primary Care Provider Encounter Details Date Type Department Care Team Description 12/06/2018 Procedure [facility]sc[facility] [address] [place] [address] [phone] Social History Tobacco Use Types [...] Visit Family Medicine Kevin Miranda MD [address] [place] [address] (Wo rk) documented as of this encounter Visit Diagnoses Not on filedocumented in this encounter Care Teams Pharmacist Apprentice Relationship Specialty Start Date End Date Kevin Miranda MD PCP - General Family Medicine 11/20/[address] [place] [phone] documented as of this encounter
--- OUTSIDE RECORDS SUMMARY | 2021-12-22 09:56 | XMS_ITS | Encounter Summary ---
:1945 Author Organization [facility] Address 330 [facility], [address] [place] [address] Care Team Providers Name Role Phone Laurie Elias FURNITURE DUSTER Primary Care Provider Unavailable Encounter Details Date [...] Visit Family Medicine Kevin Miranda MD [address] [place] [address] (Wo rk) documented as of this encounter Visit Diagnoses Not on filedocumented in this encounter Care Teams Gold Letterer Relationship Specialty Start Date End Date Laurie Elias NP PCP - General Family Medicine 03/02/1811/19/19 documented as of this encounter
--- OUTSIDE RECORDS SUMMARY | 2021-12-22 09:56 | XMS_ITS | Encounter Summary ---
:1945 Author Organization [facility] Address [address] [facility], [address] [place] [address] Care Team Providers Name Role Phone Laurie Elias NP Primary Care Provider Unavailable Reason for Visit Reason Comments Groin Pain Encounter Details Date Type Department Care Team Description 11/30/2018 Office Visit Paula Funk, Primary osteoarthritis of right hip (Primary Dx); Practice MD Acute left ankle pain [address] [place] [address] Social History Tobacco Use Types Packs/Day Years [...] Office Visit Family Medicine Kevin Miranda MD [facility] [place], [place] [address] (Wo rk) documented as of this encounter Visit Diagnoses Diagnosis Primary osteoarthritis of right hip - Pr imary Acute left ankle pain documented in this encounter Care Teams Milling Supervisor Relationship Specialty Start Date End Date Laurie Elias NP PCP - General Family Medicine 03/02/1811/19/19 documented as of this encounter
--- OUTSIDE RECORDS SUMMARY | 2021-12-22 09:56 | XMS_ITS | Encounter Summary ---
:1945 Author Organization [facility] Address [address] [facility], [address] [place] [address] Care Team Providers Name Role Phone Laurie Elias DIGITAL DATA ANALYST Primary Care Provider Unavailable Encounter Details [...] Visit Family Medicine Kevin Miranda MD [address] [place] [phone] (Wo rk) documented as of this encounter Visit Diagnoses Not on filedocumented in this encounter Care Teams Railroad Car Loader Relationship Specialty Start Date End Date Laurie Elias NP PCP - General Family Medicine 03/02/1811/19/19 documented as of this encounter
--- OUTSIDE RECORDS SUMMARY | 2021-12-22 09:56 | XMS_ITS | Encounter Summary ---
:1945 Author Organization [facility] Address 330 [facility], [address] [place] [address] Care Team Providers Name Role Phone Laurie Elias PRECISION CROP MANAGER Primary Care Provider Unavailable Encounter Details [...] Visit Family Medicine Kevin Miranda MD [address] [place] [phone] (Wo rk) documented as of this encounter Visit Diagnoses Not on filedocumented in this encounter Care Teams Gas System Operator Relationship Specialty Start Date End Date Laurie Elias NP PCP - General Family Medicine 03/02/1811/19/19 documented as of this encounter
--- OUTSIDE RECORDS SUMMARY | 2021-12-22 09:56 | XMS_ITS | Encounter Summary ---
:1945 Author Organization [facility] Address 330 [facility], [address] [place] [address] Care Team Providers Name Role Phone Laurie Elias VENDING MACHINE COIN COLLECTOR Primary Care Provider Unavailable Encounter Details Date [...] Visit Family Medicine Kevin Miranda MD [address] [place] [phone] (Wo rk) documented as of this encounter Visit Diagnoses Not on filedocumented in this encounter Care Teams Copyright Clerk Relationship Specialty Start Date End Date Laurie Elias NP PCP - General Family Medicine 03/02/1811/19/19 documented as of this encounter
--- OUTSIDE RECORDS SUMMARY | 2021-12-22 09:56 | XMS_ITS | Encounter Summary ---
:1945 Author Organization [facility] Address [address] [facility], [address] [place] [address] Care Team Providers Name Role Phone Laurie Elias NP Primary Care Provider Unavailable Reason for Visit Reason Comments Fever Encounter Details Date Type Department Care Team Description 04/09/2019 Office Visit Kevin Trimble, Viet c ystitis with hematuria (Primary Dx); Practice Diverticulitis [facility]0 [place] [address] [place] [address] [place], [place] [phone] Social History Tobacco Use Types Packs/Day Years [...] performed in my presence by the medical anthropology director and verified by me. This note is an accurate record of the services performed and decisions made by Kevin Miranda MD. documented in this encounter Plan of Treatment Upcoming Encounters Date Type Specialty Care Team Description 04/19/2022 Office Visit Family Medicine Kevin Miranda MD [address] [place], [place] [address] (Wo rk) documented as [...] (04/09/2019 4:48 PM EST) Analysis Performed At [facility] Time Signature Urine Culture (A) [facility] Comment: ??CULTURE, URINE, ROUTINE ?Micro Number: ?[id number] ??Test Status: ? Final ??Specimen Source: ?? [...] Organization Address City/State/ZIP Code Phon e Number [facility] [address] [phone] [place] [address] B [facility] [address] [place], [place] [address] [address] [id number] Diagnost POCT Urinalysis dipstick (04/09/2019 4:14 PM EST) [facility] gist Method Time Signature Color, UA [...] hemorrhage) documented in this encounter Care Teams Dyslexia Teacher Relationship Specialty Start Date End Date Laurie Elias NP PCP - General Family Medicine 03/02/1811/19/19 documented as of this encounter
--- OUTSIDE RECORDS SUMMARY | 2021-12-22 09:56 | XMS_ITS | Encounter Summary ---
:1945 Author Organization [facility] Address [address] [facility], [address] [place] [address] Care Team Providers Name Role Phone Laurie Elias SOIL TESTER Primary Care Provider Unavailable Encounter Details Date Type Department Care Team Description [facility] NP [facility] [place] [address] Social History Tobacco Use Types Packs/Day Years [...] Visit Family Medicine Kevin Miranda MD [address] [place], [place] [address] (Wo rk) documented as of this encounter Visit Diagnoses Not on filedocumented in this encounter Care Teams Efficiency Engineer Relationship Specialty Start Date End Date Laurie Elias NP PCP - General Family Medicine 03/02/1811/19/19 documented as of this encounter
--- OUTSIDE RECORDS SUMMARY | 2021-12-22 09:56 | XMS_ITS | Encounter Summary ---
:1945 Author Organization [facility] Address [address] [facility], [address] [place] [address] Care Team Providers Name Role Phone Laurie Elias DIRECTOR OF DIVERSITY AND INCLUSION Primary Care Provider Unavailable Reason for Visit Reason Comments Annual Exam Encounter Details Date Type Department Care Team Description 06/08/2018 Office Visit Kaushik Elias, Annual phy sical exam (Primary Dx); Practice ANN Sullivan Screening for depression; [address] [place] Diverticulitis; [place] [address] Insomnia, unspecified type; [phone] Acute pain of r ight shoulder; Osteopenia, [...] (q 6 months) at [facility] (Dr. Rosenberg). 3. She sees Dr. Harrison at [facility] for routine eye care 4. Sleep disorder: [...] PT 6. 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 [...] and fiber regimen. F/u with Dr. Gorman ([facility] gastro[facility]ology) for routine f/u and colonoscopy. [...] and fiber regimen. F/u with Dr. Gorman ([facility] gastro[facility]ology) for routine f/u and colonoscopy. documented in this encounter Plan of Treatment Upcoming Encounters Date Type Specialty Care Team Description 04/19/2022 Office Visit Family Medicine Kevin Miranda MD [address] [place] [address] (Wo rk) documented as of [...] encounter Results CBC (06/27/2018 10:04 AM EDT) [facility] Method Time Signature White Blood 7.0 3.8 - 10.8 [facility] Count Thousand/u [place] [facility] Red Blood Count 4.30 3.80 - [facility] ics 5.10 [place] Million/uL [facility] Hemoglobin 13.3 11.7 - [facility] 15.5 g/dL [place] [facility] Hematocrit 40.2 35.0 - [facility] 45.0 % [place] [facility] MCV 93.5 80.0 - [facility] 100.0 fL [place] [facility] MCH 30.9 27.0 - [facility] 33.0 pg [place] [facility] MCHC 33.1 32.0 - [facility] 36.0 g/dL [place] [facility] MRDW 12.6 11.0 - [facility] 15.0 % [place] [facility] Platelet count 321 140 - 400 Gr[facility] cs Thousand/u [facility] MPV 10.0 7.5 - 12.5 [facility] fL [place] [facility] Specimen Anatomical Collection Method Collection Time Receive d Time (Source) Location / / Volume Laterality Blood Venous blood / 06/27/2018 10:04 9 Unknown AM EDT 10:04 AM EDT Narrative [facility] - 06/28/2018 4:45 AM EDT FASTING:YES FASTING: YES Laurie Elias NP LAB BLOOD ORDERABLES Performing Organization Address City/State/ZIP Code Phon e Number [facility] [address] [phone] [facility] [address] [place] [address] [address] [address] [phone] Diagnost (ABNORMAL) Lipid Panel with Reflex to Direct LDL (06/27/2018 10:04 AM EDT) [facility] Method Time Signature Cholesterol, 206 (H) <200 [facility] Total mg/dL [place] [facility] HDL Cholesterol 91 >50 mg/dL [facility] [place] [facility] TRIGS 53 <150 [facility] mg/dL [place] [facility] LDL Cholesterol 101 (H) mg/dL [facility] (calc) [place] [facility] Comment: Reference range: <100 Desirable range <100 [...] CARTER et al. GEOVANNA. 2013;310(19): 206 1-2068 (http://education.Heroes2u.Whimseybox/f aq/YZO161) HDL 2.3 <5.0 (calc) [facility] [place] [facility] Non HDL Chol. (LDL+VLDL) 115 <130 mg/dL (calc) [facility] [place] [facility] Comment: For patients with diabetes plus [...] Organization Address City/State/ZIP Code Phon e Number [facility] [address] [phone] [place] [address] [address] [facility] [address] [place] [address] [address] [address] [phone] Diagnost Basic metabolic panel (06/27/2018 10:04 AM EDT) athologist Signature Glucose 89 65 - 99 [facility] mg/dL [place] [facility] Comment: ? Fasting reference interv al Bun 23 7 - 25 mg/dL [facility] [place] [facility] Creatinine, Ser 0.73 0.60 - 0.93 mg/dL [facility] [place] [facility] Comment: For patients >49 years of age, the refer ence limit for Creatinine is approximately 13% high er for people identified as -[place]. eGFR NON-AFR. 83 > OR = 60 mL/min/1.73m2 Qu est Diagnostics [facility] eGFR 96 > OR = 60 mL/min/1.73m2 Que [facility] Diagn[facility] BUN/Creatinine NOT APPLICABLE 6 - 22 (calc) [facility] Ratio [place] [facility] Sodium 142 135 - 146 mmol/L [facility] [place] [facility] Potassium 4.9 3.5 - 5.3 mmol/L [facility] [place] [facility] Chloride 105 98 - 110 mmol/L [facility] [place] [facility] CO2 32 20 - 32 mmol/L [facility] Calcium 9.4 8.6 - 10.4 mg/dL [facility] [place] [facility] Specimen Anatomical Collection Method Collection Time Receive d Time (Source) Location / / Volume Laterality Blood Venous blood / 06/27/2018 10:04 9 Unknown AM EDT 10:04 AM EDT Narrative [facility] - 06/28/2018 4:45 AM EDT FASTING:YES FASTING: YES Laurie Elias NP LAB BLOOD ORDERABLES Performing Organization Address City/State/ZIP Code Phon e Number [facility] [address] [phone] [place] [address], [address] [facility] [address] [place] [address], [facility] [address] [phone] Diagnost documented in this encounter Visit Diagnoses [...] mellitus documented in this encounter Care Teams Aws Software Development Engineer Relationship Specialty Start Date End Date Laurie Elias NP PCP - General Family Medicine 03/02/1811/19/19 documented as of this encounter
--- OUTSIDE RECORDS SUMMARY | 2021-12-22 09:56 | XMS_ITS | Encounter Summary ---
:1945 Author Organization [facility] Address [address] [facility], [address] [place] [address] Care Team Providers Name Role Phone Kevin Miranda MD Primary Care Provider Encounter Details Date Type Department Care Team Description 02/28/2019 Orders Only [facility] actice Provider, MD Harsh [address] [place] [address] [phone] Social History Tobacco Use Types Packs/Day Years [...] Visit Family Medicine Kevin Miranda MD [address] [place] [address] (Wo rk) documented as of [...] filedocumented in this encounter Care Teams Construction Administrative Assistant Relationship Specialty Start Date End Date Kevin Miranda MD PCP - General Family Medicine 11/20/19 [address] [place] [address] documented as of this encounter
--- OUTSIDE RECORDS SUMMARY | 2021-12-22 09:56 | XMS_ITS | Encounter Summary ---
:1945 Author Organization [facility] Address 330 [facility], [address] [place] [address] Care Team Providers Name Role Phone Laurie Elias PROCUREMENT FORESTER Primary Care Provider Unavailable Encounter Details Date [...] Visit Family Medicine Kevin Miranda MD [address] [place] [address] (Wo rk) documented as of this encounter Visit Diagnoses Not on filedocumented in this encounter Care Teams Practice Representative Relationship Specialty Start Date End Date Laurie Elias NP PCP - General Family Medicine 03/02/1811/19/19 documented as of this encounter
--- OUTSIDE RECORDS SUMMARY | 2021-12-22 09:56 | XMS_ITS | Encounter Summary ---
:1945 Author Organization [facility] Address [address] [facility], [address] [place] [address] Care Team Providers Name Role Phone Laurie Elias ATMOSPHERIC TECHNICIAN Primary Care Provider Unavailable Encounter Details [...] Visit Family Medicine Kevin Miranda MD [address] [place] [address] (Wo rk) documented as of this encounter Visit Diagnoses Not on filedocumented in this encounter Care Teams Pmo Project Manager Relationship Specialty Start Date End Date Laurie Elias NP PCP - General Family Medicine 03/02/1811/19/19 documented as of this encounter
--- OUTSIDE RECORDS SUMMARY | 2021-12-22 09:56 | XMS_ITS | Encounter Summary ---
:1945 Author Organization [facility] Address [address] [facility], [address] [place] [address] Care Team Providers Name Role Phone Kevin Miranda MD Primary Care Provider Reason for Referral Diagnostic Imaging (Routine) - Closed Specialty Diagnoses / Procedures Referred By Contact Refer red To Contact Diagnoses Hip pain, right Antolin Montana MD Procedures X-ray Hip 2-3 Views Right (Pelvis Optional) [address] [place] [address] Referral ID Status Reason Start Date Expiration Date Visits Requ ested Visits Authorized [id number] Closed 02/06/2019 02/06/2020 1 1 Encounter Details Date Type Department Care Team Description 02/06/2019 Ancillary Orders [facility] Antolin Montana, Hip pain, right Ultrasound [address] [facility] [address] [place], [place] [phone] Social History Tobacco Use Types Packs/Day Years [...] Visit Family Medicine Kevin Miranda MD [address] [place], [place] [address] (Wo rk) documented as [...] ation. Dictated: 02/06/2019 3:47 PM Report ID: [id number] Report signed in external system at 01/15 15:47 Reported By: Srinivasan Olson M.D. (resident ) ([id number]) Signed By: Jacoby Cunningham M.D. (HE ) Narrative 02/06/2019 3:47 PM EST RESPONSIBLE FOLDER SEAMER AUTOMATIC: Jacoby Cunningham M.D. EXAMINATION: XR HIP 2-3 [...] might be different from the original. RESPONSIBLE FOLDER SEAMER AUTOMATIC: Jacoby Cunningham M.D. EXAMINATION: XR HIP 2-3 [...] ation. Dictated: 02/06/2019 3:47 PM Report ID: [id number] Report signed in external system at 01/15 15:47 Reported By: Srinivasan Olson M.D. (resident ) ([id number]) Signed By: Jacoby Cunningham M.D. ([facility] ) Antolin Montana MD IMG XR PROCEDURES documented in this encounter Visit Diagnoses Diagnosis Hip pain, right Pain in joint, pelvic region and thigh Hip pain, right Pain in joint, pelvic region and thigh documented in this encounter Care Teams Multiple Games Dealer Relationship Specialty Start Date End Date Kevin Miranda MD PCP - General Family Medicine 11/20/[address] [place] [address] documented as of this encounter
--- OUTSIDE RECORDS SUMMARY | 2021-12-22 09:56 | XMS_ITS | Encounter Summary ---
:1945 Author Organization [facility] Address 330 [facility], [address] [place] [address] Care Team Providers Name Role Phone Laurie Elias E LEARNING COORDINATOR Primary Care Provider Unavailable Encounter Details [...] Visit Family Medicine Kevin Miranda MD [address] [place] [address] (Wo rk) documented as of this encounter Visit Diagnoses Not on filedocumented in this encounter Care Teams Video Technician Relationship Specialty Start Date End Date Laurie Elias NP PCP - General Family Medicine 03/02/1811/19/19 documented as of this encounter
--- OUTSIDE RECORDS SUMMARY | 2021-12-22 09:56 | XMS_ITS | Encounter Summary ---
:1945 Author Organization [facility] Address [address] [facility], [address] [place] [address] Care Team Providers Name Role Phone Jada Laruie ANN Primary Care Provider Unavailable Reason for Visit Reason Onset Date Comments PT HAS A QUESTION FOR YOU 05/15/2018 Encounter Details Date Type Department Care Team Description 05/15/2018 Telephone [facility], [place] Jason, PT HAS A QUESTION FOR LLC MD YOU [address] [address] [phone] (Wo rk) Social History Tobacco Use Types [...] Visit Family Medicine Kevin Miranda MD [address] [place] [address] (Wo rk) documented as of this encounter Visit Diagnoses Not on filedocumented in this encounter Care Teams Drapery Operator Relationship Specialty Start Date End Date Laurie Elias NP PCP - General Family Medicine 03/02/1811/19/19 documented as of this encounter
--- OUTSIDE RECORDS SUMMARY | 2021-12-22 09:57 | XMS_ITS | Encounter Summary ---
:1945 Author Organization [facility] Address [address] [facility], [address] [place] [address] Care Team Providers Name Role Phone Lisa Sotelo MD Primary Care Provider Encounter Details Date Type Department Care Team Description 11/01/2017 Office Visit [facility], [facility] constipation type (Primary Dx); Practice ANN Krishnamurthy Diverticulosis of large intestine withou t hemorrhage [address] [place] [address] [place], [place] [phone] Social History Tobacco Use Types Packs/Day Years [...] Visit Family Medicine Kevin Miranda MD [address] [place], [place] [address] (Wo rk) documented as of this encounter Visit Diagnoses Diagnosis Constipation, unspecified constipation t ype - Primary Diverticulosis of large intestine withou t hemorrhage documented in this encounter Care Teams Chief Minister Relationship Specialty Start Date End Date Lisa Sotelo MD PCP - General Family Medicine 08/19/16 03/01/18 [address] [place] [address] documented as of this encounter
--- OUTSIDE RECORDS SUMMARY | 2021-12-22 09:57 | XMS_ITS | Encounter Summary ---
:1945 Author Organization [facility] Address 330 [facility], [address] [place] [address] Care Team Providers Name Role Phone Lisa [...] Medicine Kevin Miranda MD [facility] [place], [place] [address] (Wo rk) documented as of this encounter Visit Diagnoses Not on filedocumented in this encounter Care Teams Candy Puller Relationship Specialty Start Date End Date Lisa Sotelo MD PCP - General Family Medicine 08/19/16 03/01/[address] [place] [address] documented as of this encounter
--- OUTSIDE RECORDS SUMMARY | 2021-12-22 09:57 | XMS_ITS | Encounter Summary ---
:1945 Author Organization [facility] Address 330 [facility], [address] [place] [address] Care Team Providers Name Role Phone Laurie Elias NP Primary Care Provider Unavailable Encounter Details Date Type Department Care Team Description 03/30/2018 Office Visit [place] [facility], Diverticulitis of Gastrointestinal MD [facility] 330 [facility] without perforation or [address] [facility], absce ss without [address] bleeding (Primary Dx) [place] [address] [place], [place] [phone] [address] Social History Tobacco Use Types Packs/Day Years [...] were not included. 04/02/18 [place] Gorman M.D. cyber ops planner, [facility] Chief, Gastroenterology [facility] [address] [place] [address] FAX [phone] Email: [email or web address] 04/02/18 Re: [id number] Molly Rios Referring physician: Laurie Elias NP [address] [facility] [address] Molly Rios is a 73 y.o. female [...] Visit Family Medicine Kevin Miranda MD [address] [place], [place] [address] (Wo rk) documented as of this encounter Visit Diagnoses Diagnosis Diverticulitis of large intestine withou t perforation or abscess without bleeding - Primary documented in this encounter Care Teams Digital Forensic Examiner Relationship Specialty Start Date End Date Laurie Elias NP PCP - General Family Medicine 03/02/1811/19/19 documented as of this encounter
--- OUTSIDE RECORDS SUMMARY | 2021-12-22 09:57 | XMS_ITS | Encounter Summary ---
:1945 Author Organization [facility] Address 330 [facility], [address] [place] [address] Care Team Providers Name Role Phone Laurie Elias NP Primary Care Provider Unavailable Reason for Visit Reason Comments Fever Encounter Details Date Type Department Care Team Description 03/24/2018 Office Visit Mary Gómez, uns pecified Practice ANN Sullivan fever cause (Primary [address]) [place] [address] Social History Tobacco Use Types Packs/Day Years [...] Family Medicine Kevin Miranda MD [address] [place], [place] [address] (Wo rk) Scheduled Orders [...] (03/24/2018 4:14 PM EST) Analysis Performed At [facility] Urine Culture [facility] Comment: ??CULTURE, URINE, ROUTINE ?MICRO NUMBER: ?[id number] ??TEST STATUS: ? FINAL ??SPECIMEN SOURCE: ?? URINE, CLEAN CATC H ??SPECIMEN QUALITY: ??ADEQUATE ??RESULT: ?No Growth Specimen Anatomical Collection Method Collection Time Receive d Time (Source) Location / / Volume Laterality 03/24/2018 4:14 PM 9 4:14 EST PM EST Laurie Elias NP LAB MICROBIOLOGY - GENERAL O RDERABLES Performing Organization Address [facility] Phon e Number [facility] [address] [employer] [address] [place] [address] [facility] [address] [phone] Diagnost (ABNORMAL) CBC (03/24/2018 4:14 PM EST) [facility] Method Time Signature White Blood 11.6 (H) 3.8 - [facility] Count 10.8 [place] [facility] uL [facility] Red Blood 4.19 3.80 - [facility] Count 5.10 [place] [facility] L [facility] Hemoglobin 12.9 11.7 - [facility] 15.5 g/dL [place] [facility] Hematocrit 37.5 35.0 - [facility] 45.0 % [place] [facility] MCV 89.5 80.0 - [facility] 100.0 fL [place] [facility] MCH 30.8 27.0 - [facility] 33.0 pg [place] [facility] MCHC 34.4 32.0 - [facility] 36.0 g/dL [place] [facility] MRDW 12.6 11.0 - [facility] 15.0 % [place] [facility] Platelet count 509 (H) 140 - 400 [facility]/ [place] [facility] MPV 9.5 7.5 - [facility] 12.5 fL [place] [facility] Specimen Anatomical Collection Method Collection Time Receive d Time (Source) Location / / Volume Laterality Blood Venous blood / 03/24/2018 4:14 PM 019 4:14 Unknown EST PM EST Laurie Elias NP LAB BLOOD ORDERABLES Performing Organization Address [facility] Phon e Number [facility] [phone] [place] [address], [address] [facility] [address] [facility], [facility], [facility] [address] [phone] Diagnost documented in this encounter Visit Diagnoses Diagnosis Fever, unspecified fever cause - Primary documented in this encounter Care Teams Plate And Weld Inspector Relationship Specialty Start Date End Date Laurie Elias NP PCP - General Family Medicine 03/02/1811/19/19 documented as of this encounter
--- OUTSIDE RECORDS SUMMARY | 2021-12-22 09:57 | XMS_ITS | Encounter Summary ---
:1945 Author Organization [facility] Address [address] [facility], [address] [place] [address] Care Team Providers Name Role Phone Lisa Sotelo MD Primary Care Provider Encounter Details Date Type Department Care Team Description 08/01/2017 Refill [facility] Pr actice Lisa Sotelo MD [facility] [address] [address] [place] [address] [phone] (Wo rk) Social History Tobacco Use Types [...] Visit Family Medicine Kevin Miranda MD [address] [place] [address] (Wo rk) documented as of this encounter Visit Diagnoses Not on filedocumented in this encounter Care Teams Infant Caregiver Relationship Specialty Start Date End Date Lisa Sotelo MD PCP - General Family Medicine 08/19/16 03/01/[address] [place] [address] documented as of this encounter
--- OUTSIDE RECORDS SUMMARY | 2021-12-22 09:57 | XMS_ITS | Encounter Summary ---
:1945 Author Organization [facility] Address [address] [facility], [address] [place] [address] Care Team Providers Name Role Phone Laurie Elias MENTAL HEALTH AIDES TEACHER Primary Care Provider Unavailable Encounter Details Date Type Department Care Team Description 03/03/2018 Telephone Family Practice Jason Veloz MD [address] [place] [address], [facility] te 1A [address] [facility], [place] [address] 1A [phone] [place], [place] [address] (Wo rk) Social History [...] Visit Family Medicine Kevin Miranda MD [address] [facility] [place] [address] (Wo rk) documented as of this encounter Visit Diagnoses Not on filedocumented in this encounter Care Teams Electronic Heat Seal Operator Relationship Specialty Start Date End Date Laurie Elias NP PCP - General Family Medicine 03/02/1811/19/19 documented as of this encounter
--- OUTSIDE RECORDS SUMMARY | 2021-12-22 09:57 | XMS_ITS | Encounter Summary ---
:1945 Author Organization [facility] Address 330 [facility], [address] [place] [address] Care Team Providers Name Role Phone Lisa Sotelo MD Primary Care Provider Reason for Referral Diagnostic Imaging (Routine) - Closed Specialty Diagnoses / Procedures Referred By Contact Refer red To Contact Diagnoses Right hip pain Right groin pain Yasmine Shaw MD Procedures X-ray Hip 2-3 Views Right (Pelvis Optional) [employer] [facility] [employer] [address] [address] Referral ID Status Reason Start Date Expiration Date Visits Requ ested Visits Authorized [id number] Closed 07/22/2017 07/22/2018 1 1 Reason for Visit Diagnostic Imaging (Routine) - Closed Specialty Diagnoses / Procedures Referred By Contact Refer red To Contact Diagnoses Right hip pain Right groin pain Yasmine Shaw MD Procedures X-ray Hip 2-3 Views Right (Pelvis Optional) [facility] [employer] [facility] [address] [place] [facility] Hospital[facility] [place] [address] Referral ID Status Reason Start Date Expiration Date Visits Requ ested Visits Authorized [id number] Closed 07/22/2017 07/22/2018 1 1 Encounter Details Date Type Department Care Team Description 07/22/2017 Hospital Encounter [facility] Yasmine Shaw MD X-ray at [address] [place] [address] and Fitness [address] [place], [place] [address], [address] [address] [phone] [place], [place] [address] (Li ni) Social History [...] Visit Family Medicine Kevin Miranda MD [address] [place] [address] (Li ni) documented as of [...] change. Dictated: 07/22/2017 10:45 AM Report ID: [id number] Report signed in external system at 07/22 10:45 Reported By: Wale Faustin M.D. (TAMICA P) Signed By: Wale Faustin M.D. (TAMICAP) Narrative 07/22/2017 10:45 AM EDT RESPONSIBLE CORPORATE CLAIMS EXAMINER: Wale Faustin M.D. EXAMINATION: XR HIP 2-3 [...] might be different from the original. RESPONSIBLE CORPORATE CLAIMS EXAMINER: Wale Faustin M.D. EXAMINATION: XR HIP 2-3 [...] change. Dictated: 07/22/2017 10:45 AM Report ID: [id number] Report signed in external system at 07/22 10:45 Reported By: Wale Faustin M.D. (TAMICA P) Signed By: Wale Faustin M.D. (JACQUELINE) Yasmine Shaw MD IMG XR PROCEDURES documented in this encounter Visit Diagnoses Diagnosis Right hip pain Pain in joint, pelvic region and thigh Right groin pain Abdominal pain, right lower quadrant documented in this encounter Care Teams Underwater Trapper Relationship Specialty Start Date End Date Lisa Sotelo MD PCP - General Family Medicine 08/19/16 03/01/[address] [place] [address] documented as of this encounter
--- OUTSIDE RECORDS SUMMARY | 2021-12-22 09:57 | XMS_ITS | Encounter Summary ---
:1945 Author Organization [facility] Address 330 [facility], [address] [place] [address] Care Team Providers Name Role Phone Laurie Elias NP Primary Care Provider Unavailable Encounter Details Date Type Department Care Team Description 03/04/2018 Telephone [facility] José Antonio ling MD [facility] 330 [facility], [address] [facility] [address], [facility] [address] [address] [phone] (Wo rk) Social History Tobacco Use Types [...] questions or concerns. Kerwin Shipley MD, MPH [facility] [address] documented in this encounter Plan of Treatment Upcoming Encounters Date Type Specialty Care Team Description 04/19/2022 Office Visit Family Medicine Kevin Miranda MD [address] [place], [place] [address] (Wo rk) documented as of this encounter Visit Diagnoses Not on filedocumented in this encounter Care Teams Advanced Practice Provider Relationship Specialty Start Date End Date Laurie Elias NP PCP - General Family Medicine 03/02/1811/19/19 documented as of this encounter
--- OUTSIDE RECORDS SUMMARY | 2021-12-22 09:57 | XMS_ITS | Encounter Summary ---
:1945 Author Organization [facility] Address 330 [facility], [address] [place] [address] Care Team Providers Name Role Phone Lisa [...] Medicine Kevin Miranda MD [facility] [place], [place] [address] (Wo rk) documented as of this encounter Visit Diagnoses Not on filedocumented in this encounter Care Teams Bead Wrapper Relationship Specialty Start Date End Date Lisa Sotelo MD PCP - General Family Medicine 08/19/16 03/01/[address] [place] [address] documented as of this encounter
--- OUTSIDE RECORDS SUMMARY | 2021-12-22 09:57 | XMS_ITS | Encounter Summary ---
:1945 Author Organization [facility] Address 330 [facility], [address] [place] [address] Care Team Providers Name Role Phone Laurie Elias LCPC Primary Care Provider Unavailable Encounter Details Date [...] Visit Family Medicine Kevin Miranda MD [address] [place] [address] (Wo rk) documented as of this encounter Visit Diagnoses Not on filedocumented in this encounter Care Teams Research Software Engineer Relationship Specialty Start Date End Date Laurie Elias NP PCP - General Family Medicine 03/02/1811/19/19 documented as of this encounter
--- OUTSIDE RECORDS SUMMARY | 2021-12-22 09:57 | XMS_ITS | Encounter Summary ---
:1945 Author Organization [facility] Address 330 [facility], [address] [place] [address] Care Team Providers Name Role Phone Laurie Elias NP Primary Care Provider Unavailable Encounter Details Date Type Department Care Team Description 03/21/2018 Telephone [facility] Rola phillips PA [facility] 330 [facility], [address] [facility] [address], [address] [place], [place] [address] [place] [address] [phone] (Wo rk) Social History Tobacco Use Types [...] Visit Family Medicine Kevin Miranda MD [address] [place], [place] [address] (Wo rk) documented as of this encounter Visit Diagnoses Not on filedocumented in this encounter Care Teams Supervisor Orchard Relationship Specialty Start Date End Date Laurie Elias NP PCP - General Family Medicine 03/02/1811/19/19 documented as of this encounter
--- OUTSIDE RECORDS SUMMARY | 2021-12-22 09:57 | XMS_ITS | Encounter Summary ---
:1945 Author Organization [facility] Address 330 [facility], [address] [place] [address] Care Team Providers Name Role Phone JadaHeatherLaurie IMAGING NURSE Primary Care Provider Unavailable Encounter Details Date Type Department Care Team Description 03/29/2018 [facility] Physical Se lázaro Jason MD [address] [place] [address] Chronic low back pain, Therapy Pricila Curry, PT unspecified back pain [address] [facility], [facility], with [address] [place] [address] unspecified (Primary Dx) [phone] Social History Tobacco Use Types Packs/Day Years Used Date Former Smoker Smokeless Tobacco: Never Used Alcohol Use Standard Drinks/Week Comments Defer 0 (1 standard drink = 0.6 oz pure alcoho l) Sex Assigned at Date Recorded Female 04/12/2019 2:19 PM EST documented as of this encounter Progress Notes Pricila Curry, PT - 03/29/2018 12:30 PM EST [facility] [address] [facility], [address] [facility] [address] PROGRESS NOTE visit 4 ALBERT [...] pain improved). Pt seen by PT at [facility] for R hip pain. Started doing side lying hip abd with 5 lb. Developed more pain (? Overdid her ex). + R sided groin pain. CC is weakness B hips. Referred to PT for consult. Will f/u with MD after completion of PT. Seen by ortho at [facility]-x-rays done, advised to [...] Visit Family Medicine Kevin Miranda MD [address] [place], [place] [address] (Wo rk) documented as of this encounter Visit Diagnoses Diagnosis Chronic low back pain, unspecified back pain laterality, with sciatica presence unspecified - Primary documented in this encounter Care Teams Tdp Displays Analyst Relationship Specialty Start Date End Date Laurie Elias NP PCP - General Family Medicine 03/02/1811/19/19 documented as of this encounter
--- OUTSIDE RECORDS SUMMARY | 2021-12-22 09:57 | XMS_ITS | Encounter Summary ---
:1945 Author Organization [facility] Address 330 [facility], [address] [place] [address] Care Team Providers Name Role Phone Lisa [...] Office Visit Family Medicine Kevin Miranda MD [facility] [place], [place] [address] (Wo rk) documented as of this encounter Visit Diagnoses Not on filedocumented in this encounter Care Teams Shot Examiner Relationship Specialty Start Date End Date Lisa Sotelo MD PCP - General Family Medicine 08/19/16 03/01/[address] [place] [address] documented as of this encounter
--- OUTSIDE RECORDS SUMMARY | 2021-12-22 09:57 | XMS_ITS | Encounter Summary ---
:1945 Author Organization [facility] Address [address] [facility], [address] [place] [address] Care Team Providers Name Role Phone Lisa Sotelo MD Primary Care Provider Encounter Details Date Type Department Care Team Description 01/26/2018 Office Visit Aurora Sherif, Diverticulitis of Gastrointestinal MD [place] [facility] 330 [facility] without perforation or [address] [facility], absce ss without [address] bleeding (Primary Dx) [place] [address] [place], [place] [phone] [address] Social History Tobacco Use Types Packs/Day Years [...] were not included. 01/28/18 [place] Gorman M.D. technical product manager, [facility] Chief, Gastroenterology [facility] [address] [place] [address] FAX [phone] Email: [email or web address] 01/28/18 Re: [id number] Molly Rios Referring physician: Lisa Sotelo MD [address] [facility] [address] Molly Rios is a 72 y.o. female [...] Visit Family Medicine Kevin Miranda MD [address] [place] [address], [place] [address] (Wo rk) documented as of this encounter Visit Diagnoses Diagnosis Diverticulitis of large intestine withou t perforation or abscess without bleeding - Primary documented in this encounter Care Teams Alodize Machine Helper Relationship Specialty Start Date End Date Lisa Sotelo MD PCP - General Family Medicine 08/19/16 03/01/18 [address] [place] [address] documented as of this encounter
--- OUTSIDE RECORDS SUMMARY | 2021-12-22 09:57 | XMS_ITS | Encounter Summary ---
:1945 Author Organization [facility] Address 330 [facility], [address] [place] [address] Care Team Providers Name Role Phone Laurie Elias NP Primary Care Provider Unavailable Encounter Details Date Type Department Care Team Description 03/07/2018 Telephone [facility] Laurie Brown NP [address] [place], [place] [id number] Social History Tobacco Use Types Packs/Day Years [...] Medicine Kevin Miranda MD [facility] [place], [place] [address] (Wo rk) documented as of this encounter Visit Diagnoses Not on filedocumented in this encounter Care Teams Renal Dialysis Rn Relationship Specialty Start Date End Date Laurie Elias NP PCP - General Family Medicine 03/02/1811/19/19 documented as of this encounter
--- OUTSIDE RECORDS SUMMARY | 2021-12-22 09:57 | XMS_ITS | Encounter Summary ---
:1945 Author Organization [facility] Address 330 [facility], [address] [place] [address] Care Team Providers Name Role Phone Lisa [...] Kevin Miranda MD [facility] [place], [place] [address] (Wo rk) documented as of this encounter Visit Diagnoses Not on filedocumented in this encounter Care Teams Database Designer Relationship Specialty Start Date End Date Lisa Sotelo MD PCP - General Family Medicine 08/19/16 03/01/[address] [place] [address] documented as of this encounter
--- OUTSIDE RECORDS SUMMARY | 2021-12-22 09:57 | XMS_ITS | Encounter Summary ---
:1945 Author Organization [facility] Address 330 [facility], [address] [place] [address] Care Team Providers Name Role Phone Kevin Miranda MD Primary Care Provider Encounter Details Date Type Department Care Team Description 02/09/2018 Orders Only [facility] actice Provider, MD Harsh [address] [place] [address] [phone] Social History Tobacco Use Types Packs/Day Years [...] Visit Family Medicine Kevin Miranda MD [address] [place] [address] (Wo rk) documented as of this encounter Procedures Procedure Name Priority Date/Time Associated Diagnosis Comme nts MAMMOGRAPHY Routine 02/04/2018 documented in this encounter Results MAMMOGRAPHY (02/04/2018) Anatomical Region Laterality Modality Other Narrative This result has an attachment that is no t available. Historical Provider MD HEALTH MAINTENANCE documented in this encounter Visit Diagnoses Not on filedocumented in this encounter Care Teams Enterprise Resource Planner Relationship Specialty Start Date End Date Kevin Miranda MD PCP - General Family Medicine 11/20/19 [address] [place] [address] documented as of this encounter
--- OUTSIDE RECORDS SUMMARY | 2021-12-22 09:57 | XMS_ITS | Encounter Summary ---
:1945 Author Organization [facility] Address 330 [facility], [address] [place] [address] Care Team Providers Name Role Phone Lisa Sotelo MD Primary Care Provider Encounter Details Date Type Department Care Team Description 08/15/2017 Scan Document - View [facility] [address] [place] [address] [place] [address] Social History Tobacco Use Types Packs/Day Years [...] Visit Family Medicine Kevin Miranda MD [address] [place] [address] (Wo rk) documented as of this encounter Visit Diagnoses Not on filedocumented in this encounter Care Teams Steel Tester Relationship Specialty Start Date End Date Lisa Sotelo MD PCP - General Family Medicine 08/19/16 03/01/[address] [place] [address] documented as of this encounter
--- OUTSIDE RECORDS SUMMARY | 2021-12-22 09:57 | XMS_ITS | Encounter Summary ---
:1945 Author Organization [facility] Address 330 [facility], [address] [place] [address] Care Team Providers Name Role Phone Lisa [...] Office Visit Family Medicine Kevin Miranda MD [facility] [place], [place] [address] (Wo rk) documented as of this encounter Visit Diagnoses Not on filedocumented in this encounter Care Teams Office Supervisor Relationship Specialty Start Date End Date Lisa Sotelo MD PCP - General Family Medicine 08/19/16 03/01/[address] [place] [address] documented as of this encounter
--- OUTSIDE RECORDS SUMMARY | 2021-12-22 09:57 | XMS_ITS | Encounter Summary ---
:1945 Author Organization [facility] Address [address] [facility], [address] [place] [address] Care Team Providers Name Role Phone Laurie Elias NP Primary Care Provider Unavailable Reason for Referral Diagnostic Imaging (Routine) - Closed Specialty Diagnoses / Procedures Referred By Contact Refer red To Contact Radiology Diagnoses Diverticulitis Lower abdominal pain Laurie Elias NP Procedures CT Abdomen Pelvis with Contrast [address] [place] [address] Referral ID Status Reason Start Date Expiration Date Visits Requ ested Visits Authorized [id number] Closed 03/02/2018 03/02/2019 1 1 Encounter Details Date Type Department Care Team Description 03/02/2018 Office Visit Kaushik Elias, Diverticul itis (Primary Dx); Practice ANN Sullivan Lower abdominal pain [address] [place] [address] Social History Tobacco Use Types Packs/Day Years [...] female with PMHx known severe sigmoid diverticulosis ([id number]) who presents for same-day visit. She believes she may be having a flare-up of diverticulitis. She had similar symptoms in 12/2017, and she improved with a course of augmentin and bowel rest. Since that time, she has been generally well. She followed-up with Dr. Gorman at [facility] 01/26/[address] if [...] Visit Family Medicine Kevin Miranda MD [address] [place], [place] [address] (Wo rk) documented as of this encounter Procedures Procedure Name Priority Date/Time Associated Diagnosis Comme nts CBC (INCLUDES Routine 03/02/2018 3:10 Diverticulitis Results f or this DIFFERENTIAL AND PM EST procedure a re in PLATELETS)- [facility] the result s ONLY section. BASIC METABOLIC PANEL Routine 03/02/2018 3:10 [...] ation. Dictated: 03/03/2018 10:05 PM Report ID: [id number] Report signed in external system at 03/03 22:05 Reported By: Andi Hartley M.D. (residen t) ([id number]) Signed By: Gt Ledezma M.D. (LAURA D) Narrative 03/03/2018 10:05 PM EST RESPONSIBLE ONLINE MARKETING COORDINATOR: Gt Ledezma M.D. EXAMINATION: CT ABDOMEN PELVIS [...] be different from the original. RESPONSIBLE ONLINE MARKETING COORDINATOR: Gt Ledezma M.D. EXAMINATION: CT ABDOMEN PELVIS [...] ation. Dictated: 03/03/2018 10:05 PM Report ID: [id number] Report signed in external system at 03/03 22:05 Reported By: Andi Hartley M.D. (pam dorman) ([id number]) Signed By: Gt Ledezma M.D. (LAURA Betancur) Laurie Elias NP IMG CT PROCEDURES (ABNORMAL) [facility] - CBC (with Differential and Platelets) (03/02/2018 3:10 PM EST) [facility] Method Time Signature White Blood 19.4 (H) 3.8 - [facility] Count 10.8 Diagnostics [facility]/ [place] [facility] Red Blood Count 4.52 3.80 - [facility] 5.10 Diagnostics Million/u [place] [facility] Hemoglobin 14.2 11.7 - [facility] 15.5 g/dL [facility] [place] [facility] Hematocrit 41.5 35.0 - [facility] 45.0 % [facility] [place] [facility] MCV 91.8 80.0 - [facility] 100.0 fL [facility] [place] [facility] MCH 31.4 27.0 - [facility] 33.0 pg [facility] [place] [facility] MCHC 34.2 32.0 - [facility] 36.0 g/dL [facility] [place] [facility] MRDW 13.0 11.0 - [facility] 15.0 % [facility] [place] [facility] Platelet count 276 140 - 400 [facility] Thousand/ Diagnostics uL [place] [facility] MPV 10.1 7.5 - [facility] 12.5 fL [facility] [place] [facility] Absolute 17,324 1,500 - [facility] Neutrophil (H) 7,800 Diagnostics Count cells/uL [place] [facility] Lymphosytes 873 850 - [facility] absolute 3,900 Diagnostics cells/uL [place] [facility] Absolute 1,125 (H) 200 - 950 [facility] Monocyte count cells/uL [facility] [place] [facility] Absolute 19 15 - 500 [facility] Eosinophil cells/uL Diagnostics count [place] Lymphocyte 58 0 - 200 [facility] cells/uL Diagn[facility] [place] Neutrophils 89.3 % [facility] [place] Lymphocyte 4.5 % [facility] [place] [facility] Monocytes 5.8 % [facility] [place] [facility] Eosinophil 0.1 % [facility] [place] [facility] Basophil 0.3 % [facility] [place] [facility] Specimen Anatomical Collection Method Collection Time Receive d Time (Source) Location / / Volume Laterality Blood Venous blood / 03/02/2018 3:10 PM 019 Unknown EST 10:39 PM EST Laurie Elias NP LAB BLOOD ORDERABLES Performing Organization Address City/State/ZIP Code Phon e Number [facility] [address] [phone] [place] [address] [address] [employer] [address] [place] [address] [employer] [address] [phone] Diagnost (ABNORMAL) Basic metabolic panel (03/02/2018 3:10 PM EST) P athologist Signature Glucose 106 (H) 65 - 99 [facility] [place] [facility] mg/dL [place] [employer] Comment: ? Fasting reference interv al For someone without known diabetes, a gl ucose value between 100 and 125 mg/dL is consistent with prediabetes and should be confirmed with a follow-up test. Bun 11 7 - 25 mg/dL [facility] [place] [facility] [place] [facility] Creatinine, Ser 0.67 0.60 - 0.93 mg/dL [facility] [place] [facility] Comment: For patients >49 years of age, the refer ence limit for Creatinine is approximately 13% high er for people identified as -Russian. eGFR NON-AFR. 88 > OR = 60 mL/min/1.73m2 Qu est Diagnostics [facility] eGFR 102 > OR = 60 mL/min/1.73m2 Que st Diagnostics [facility] [facility] BUN/Creatinine NOT APPLICABLE 6 - 22 (calc) [facility] [place] [facility] Sodium 138 135 - 146 mmol/L [facility] [place] [facility] Potassium 4.0 3.5 - 5.3 mmol/L [facility] [place] [facility] Chloride 102 98 - 110 mmol/L [facility] [place] [facility] CO2 28 20 - 32 mmol/L [facility] [place] [facility] Calcium 9.9 8.6 - 10.4 mg/dL [facility] [place] [facility] Specimen Anatomical Collection Method Collection Time Receive d Time (Source) Location / / Volume Laterality Blood Venous blood / 03/02/2018 3:10 PM 019 Unknown EST 10:39 PM EST Laurie Elias NP LAB BLOOD ORDERABLES Performing Organization Address City/State/ZIP Code Phon e Number [facility] [employer] [address] [phone] [place] [address] B [employer] [address] [place] [address] [employer] [address] [phone] Diagnost documented in this encounter Visit Diagnoses Diagnosis Diverticulitis - Primary Diverticulitis of colon (without mention of hemorrhage) Lower abdominal pain Abdominal pain, other specified site Diverticulitis Diverticulitis of colon (without mention of hemorrhage) Lower abdominal pain Abdominal pain, other specified site documented in this encounter Care Teams Pipe Line Gauger Relationship Specialty Start Date End Date Laurie Elias NP PCP - General Family Medicine 03/02/1811/19/19 documented as of this encounter
--- OUTSIDE RECORDS SUMMARY | 2021-12-22 09:57 | XMS_ITS | Encounter Summary ---
:1945 Author Organization [facility] Address [address] [facility], [address] [place] [address] Care Team Providers Name Role Phone Laurie Elias DIRECT MARKETING EXECUTIVE Primary Care Provider Unavailable Encounter Details [...] Visit Family Medicine Kevin Miranda MD [address] [place] [address] (Wo rk) documented as of this encounter Visit Diagnoses Not on filedocumented in this encounter Care Teams Price Changer Relationship Specialty Start Date End Date Laurie Elias NP PCP - General Family Medicine 03/02/1811/19/19 documented as of this encounter
--- OUTSIDE RECORDS SUMMARY | 2021-12-22 09:57 | XMS_ITS | Encounter Summary ---
:1945 Author Organization [facility] Address [address] [facility], [address] [place] [address] Care Team Providers Name Role Phone Lisa Sotelo MD Primary Care Provider Reason for Referral Diagnostic Imaging (Routine) - Closed Specialty Diagnoses / Procedures Referred By Contact Refer red To Contact Radiology Diagnoses Osteopenia of neck of left femur Lisa Sotelo MD Procedures DEXA Bone Density [facility] [place] [address] Referral ID Status Reason Start Date Expiration Date Visits Requ ested Visits Authorized [id number] Closed 01/16/2018 01/16/2019 1 1 Reason for Visit Diagnostic Imaging (Routine) - Closed Specialty Diagnoses / Procedures Referred By Contact Refer red To Contact Radiology Diagnoses Osteopenia of neck of left femur Lisa Sotelo MD Procedures DEXA Bone Density [facility] [address] [place] [address] Referral ID Status Reason Start Date Expiration Date Visits Requ ested Visits Authorized [id number] Closed 01/16/2018 01/16/2019 1 1 Encounter Details Date Type Department Care Team Description 01/18/2018 [facility] Lisa Sotelo MD [address] [place] [address] [place], [place] [phone] [phone] Social History Tobacco Use Types Packs/Day Years [...] Family Medicine Kevin Miranda MD [address] [place], [place] [address] (Wo rk) documented as [...] sheets). Dictated: 01/18/2018 2:16 PM Report ID: [id number] Report signed in external system at 06/2017 14:16 Reported By: Ankit Richey M.D. (SCHJ 1) Signed By: Ankit Richey M.D. ([email or web address]) Narrative 01/18/2018 2:16 PM EST RESPONSIBLE MIDDLE OR INTERMEDIATE SCHOOL PRINCIPAL: Ankit Richey M.D. EXAMINATION: DEXA BONE DENSITY CENTRAL CLINICAL INDICATION: Osteopenia. ??Postmenopausal female. TECHNIQUE: Dual Energy X-Ray Absorptiometry (DEXA t [employer]) was performed with measurements of the right [...] be different from the original. RESPONSIBLE MIDDLE OR INTERMEDIATE SCHOOL PRINCIPAL: Ankit Richey M.D. EXAMINATION: DEXA BONE DENSITY CENTRAL CLINICAL INDICATION: Osteopenia. Postmenopausal female. TECHNIQUE: Dual Energy X-Ray Absorptiometry ([facility] t [facility]) was performed with measurements of the right [...] sheets). Dictated: 01/18/2018 2:16 PM Report ID: [id number] Report signed in external system at 06/2017 14:16 Reported By: nAkit Richey M.D. (SCHJ 1) Signed By: Ankit Richey M.D. (SCHJ1) Lisa Sotelo MD IMG DXA PROCEDURES documented in this encounter Visit Diagnoses Diagnosis Osteopenia of neck of left femur documented in this encounter Care Teams Dock Hand Relationship Specialty Start Date End Date Lisa Sotelo MD PCP - General Family Medicine 08/19/16 03/01/18 [address] [place] [address] documented as of this encounter
--- OUTSIDE RECORDS SUMMARY | 2021-12-22 09:57 | XMS_ITS | Encounter Summary ---
:1945 Author Organization [facility] Address 330 [facility], [address] [place] [address] Care Team Providers Name Role Phone Laurie Elias NP Primary Care Provider Unavailable Encounter Details Date Type Department Care Team Description 03/09/2018 Orders Only [place], Diverticulitis of Gastrointestinal MD [place] large intestine with Consultants [address] [facility] without [address] [facility], bleed ing (Primary Dx) [address] [place], [place] [id number] [place] [address] Social History Tobacco Use Types Packs/Day Years [...] Visit Family Medicine Kevin Miranda MD [address] [place] [address] (Wo rk) documented as of this encounter Results (ABNORMAL) CBC (03/09/2018 4:47 PM EST) P athologist Signature WBC 11.27 (H) 4.50 to 03/09/2018 [facility] 11.00 x 5:16 PM EST HOSPITAL 10*3u/L LABORATORY 10*3/uL nRBC 0 0 - 0 /100 03/09/2018 [facility] WBCs 5:16 PM [facility] LABORATORY RBC 4.35 3.90 to 03/09/2018 [facility] 5.03 x 5:16 PM [facility] 10*6/uL LABORATORY 10*6/uL HGB 13.6 12.0 to 03/09/2018 [facility] 16.0 g/dL 5:16 PM [facility] g/dL LABORATORY HCT 40.3 36.0% to 03/09/2018 [facility] 46.0% % 5:16 PM [facility] LABORATORY MCV 92.6 80.0 to 03/09/2018 [facility] 100.0 fL 5:16 PM [facility] fL LABORATORY MCH 31.3 26.0 - 03/09/2018 [facility] 33.0 pg 5:16 [facility] LABORATORY MCHC 33.7 31.0 to 03/09/2018 [facility] 37.0 g/dL 5:16 PM [facility] g/dL LABORATORY PLT 474 (H) 150 to 300 03/09/2018 [facility] x 10*3u/L 5:16 [facility] 10*3u/L LABORATORY RDW-CV 13.2 11.5 - 03/09/2018 [facility] 14.5 % 5:16 [facility] LABORATORY Specimen Anatomical Collection Method / Collection Time Recei nancy Time (Source) Location / Volume Laterality Blood Venous blood / Venipuncture / 03/09/2018 4:47 03/09/19 19 4:47 Unknown Unknown PM [facility] EST [place] Gorman MD LAB BLOOD ORDERABLES Performing Organization Address City/State/ZIP Code Phon e Number [facility] [address] [place] [address] LABORATORY documented in this encounter Visit Diagnoses Diagnosis Diverticulitis of large intestine with a bscess without bleeding - Primary documented in this encounter Care Teams Automotive Brake Specialist Relationship Specialty Start Date End Date Laurie Elias NP PCP - General Family Medicine 03/02/1811/19/19 documented as of this encounter
--- OUTSIDE RECORDS SUMMARY | 2021-12-22 09:57 | XMS_ITS | Encounter Summary ---
:1945 Author Organization [facility] Address [address] [facility], [address] [place] [address] Care Team Providers Name Role Phone Lisa Sotelo MD Primary Care Provider Encounter Details Date Type Department Care Team Description [facility] Brown, ANN [address] [place] [address] Social History Tobacco Use Types Packs/Day Years [...] Visit Family Medicine Kevin Miranda MD [address] [place] [address] (Wo rk) documented as of this encounter Visit Diagnoses Not on filedocumented in this encounter Care Teams Sandwich And Drink Cart Operator Relationship Specialty Start Date End Date Lisa Sotelo MD PCP - General Family Medicine 08/19/16 03/01/[address] [place] [address] documented as of this encounter
--- OUTSIDE RECORDS SUMMARY | 2021-12-22 09:57 | XMS_ITS | Encounter Summary ---
:1945 Author Organization [facility] Address [address] [facility], [address] [place] [address] Care Team Providers Name Role Phone Laurie Elias MANAGER CHEMICAL Primary Care Provider Unavailable Encounter Details Date [...] Office Visit Family Medicine Kevin Miranda MD [address] [place] [address] (Wo rk) documented as of this encounter Visit Diagnoses Not on filedocumented in this encounter Care Teams Hrbp Relationship Specialty Start Date End Date Laurie Elias NP PCP - General Family Medicine 03/02/1811/19/19 documented as of this encounter
--- OUTSIDE RECORDS SUMMARY | 2021-12-22 09:57 | XMS_ITS | Encounter Summary ---
:1945 Author Organization [facility] Address [address] [facility], [address] [place] [address] Care Team Providers Name Role Phone Laurie Elias DIRECTOR OF LEARNING Primary Care Provider Unavailable Encounter Details Date [...] Visit Family Medicine Kevin Miranda MD [address] [place] [address] (Wo rk) documented as of this encounter Visit Diagnoses Not on filedocumented in this encounter Care Teams Customs Collector Relationship Specialty Start Date End Date Laurie Elias NP PCP - General Family Medicine 03/02/1811/19/19 documented as of this encounter
--- OUTSIDE RECORDS SUMMARY | 2021-12-22 09:57 | XMS_ITS | Encounter Summary ---
:1945 Author Organization [facility] Address 330 [facility], [address] [place] [address] Care Team Providers Name Role Phone Laurie Elias NP Primary Care Provider Unavailable Encounter Details Date Type Department Care Team Description 03/15/2018 Telephone [facility] [place] zurita MD Consultants 330 [facility], [address] [facility] [address], [facility] [address] [place], [place] [address] [place] [address] [phone] (Wo rk) Social History Tobacco Use Types [...] Visit Family Medicine Kevin Miranda MD [address] [facility] [place] [address] (Wo rk) documented as of this encounter Visit Diagnoses Not on filedocumented in this encounter Care Teams Heel Lift Gouger Relationship Specialty Start Date End Date Laurie Elias NP PCP - General Family Medicine 03/02/1811/19/19 documented as of this encounter
--- OUTSIDE RECORDS SUMMARY | 2021-12-22 09:57 | XMS_ITS | Encounter Summary ---
:1945 Author Organization [facility] Address [address] [facility], [address] [place] [address] Care Team Providers Name Role Phone JadaHeatherLaurie START UP SPECIALIST Primary Care Provider Unavailable Encounter Details Date Type Department Care Team Description 03/24/2018 Rehab [facility] Physical Se lázaro Jason MD [address] [place] [address] Chronic low back pain, Therapy Pricila Curry, PT unspecified back pain [address] [facility], [facility], with [address] [place] [address] unspecified (Primary Dx) [phone] Social History Tobacco Use Types Packs/Day Years Used Date Former Smoker Smokeless Tobacco: Never Used Alcohol Use Standard Drinks/Week Comments Defer 0 (1 standard drink = 0.6 oz pure alcoho l) Sex Assigned at Date Recorded Female 04/12/2019 2:19 PM EST documented as of this encounter Progress Notes Pricila Curry, PT - 03/24/2018 12:00 PM EST Rehabilitation Services Physical Therapy [address] [facility], [address] [facility] [address] PROGRESS NOTE visit 3 ALBERT Rios [...] pain improved). Pt seen by PT at [facility] for R hip pain. Started doing side lying hip abd with 5 lb. Developed more pain (? Overdid her ex). + R sided groin pain. CC is weakness B hips. Referred to PT for consult. Will f/u with MD after completion of PT. Seen by ortho at [facility]-x-rays done, advised to strengthen/stretch R LE. ?? [...] Visit Family Medicine Kevin Miranda MD [address] [place], [place] [address] (Wo rk) documented as of this encounter Visit Diagnoses Diagnosis Chronic low back pain, unspecified back pain laterality, with sciatica presence unspecified - Primary documented in this encounter Care Teams Flatwork Assembler Relationship Specialty Start Date End Date Laurie Elias NP PCP - General Family Medicine 03/02/1811/19/19 documented as of this encounter
--- OUTSIDE RECORDS SUMMARY | 2021-12-22 09:57 | XMS_ITS | Encounter Summary ---
:1945 Author Organization [facility] Address 330 [facility], [address] [place] [address] Care Team Providers Name Role Phone Laurie Elias FISHING TOOL OPERATOR Primary Care Provider Unavailable Encounter Details Date Type Department Care Team Description 03/03/2018 Orders Only [facility] actLaurie Carr NP [facility] [place] [address] Social History Tobacco Use Types Packs/Day Years [...] Visit Family Medicine Kevin Miranda MD [address] [place], [place] [address] (Wo rk) documented as of this encounter Visit Diagnoses Not on filedocumented in this encounter Care Teams Co Director Relationship Specialty Start Date End Date Laurie Elias NP PCP - General Family Medicine 03/02/1811/19/19 documented as of this encounter
--- OUTSIDE RECORDS SUMMARY | 2021-12-22 09:57 | XMS_ITS | Encounter Summary ---
:1945 Author Organization [facility] Address [address] [facility], [address] [place] [address] Care Team Providers Name Role Phone Lisa Sotelo MD Primary Care Provider Reason for Visit Reason Comments Sinusitis fever 101 last night Encounter Details Date Type Department Care Team Description 12/26/2017 Office Visit [facility] Lisa Sotelo Diverti culitis (Primary Practice MD Dx) [address] [place] [address] [place], [place] [phone] [address] Social History Tobacco Use Types Packs/Day Years [...] Visit Family Medicine Kevin Miranda MD [address] [place], [place] [address] (Wo rk) Scheduled Orders Name Type Priority Associated Diagnoses Order S chedule CBC auto differential Lab Routine Diverticulitis Orde red: 12/26/2017 documented as of this encounter Procedures Procedure Name Priority Date/Time Associated Diagnosis Comme nts CBC (INCLUDES Routine 12/26/2017 3:56 Results for this DIFFERENTIAL AND PM EST procedure a re in PLATELETS)- [facility] the result s ONLY section. BASIC METABOLIC PANEL Routine 12/26/2017 3:56 Diverticulitis R esults for this PM EST procedure are i n the results section. documented in this encounter Results (ABNORMAL) [facility] - CBC (with Differential and Platelets) (12/26/2017 3:56 PM EST) [facility] gist Method Time Signature White Blood 13.0 (H) 3.8 - [facility] Count 10.8 Diagnostics [facility]/ [place] [facility] Red Blood Count 4.18 3.80 - [facility] 5.10 Diagnostics Million/u [place] [facility] Hemoglobin 13.2 11.7 - [facility] 15.5 g/dL [facility] [place] [facility] Hematocrit 37.9 35.0 - [facility] 45.0 % [facility] [place] [facility] MCV 90.7 80.0 - [facility] 100.0 fL [facility] [place] [facility] MCH 31.6 27.0 - [facility] 33.0 pg [facility] [place] [facility] MCHC 34.8 32.0 - [facility] 36.0 g/dL [facility] [place] [facility] MRDW 12.7 11.0 - [facility] 15.0 % [facility] [place] [facility] Platelet count 325 140 - 400 [facility] Thousand/ [facility] [place] [facility] MPV 10.5 7.5 - [facility] 12.5 fL [facility] [place] [facility] Absolute 10,127 1,500 - [facility] Neutrophil (H) 7,800 Diagnostics Count cells/uL [place] [facility] Lymphosytes 1,404 850 - [facility] absolute 3,900 Diagnostics cells/uL [place] [facility] Absolute 1,404 (H) 200 - 950 [facility] Monocyte count cells/uL [facility] [place] [facility] Absolute 26 15 - 500 [facility] Eosinophil cells/uL Diagnostics count [place] [facility] Lymphocyte 39 0 - 200 [facility] cells/uL [facility] [place] [facility] Neutrophils 77.9 % [facility] [place] [facility] Lymphocyte 10.8 % [facility] [place] [facility] Monocytes 10.8 % [facility] [place] [facility] Eosinophil 0.2 % [facility] Basophil 0.3 % [facility] Specimen Anatomical Collection Method Collection Time Receive d Time (Source) Location / / Volume Laterality 12/26/2017 3:56 PM 8 3:56 EST PM EST Lisa Sotelo MD LAB BLOOD ORDERABLES Performing Organization Address City/State/ZIP Code Phon e Number [employer] [address] [phone] [place] [address] B [employer] [address] [place] [address] [place] [address] [phone] Diagnost (ABNORMAL) Basic metabolic panel (12/26/2017 3:56 PM EST) athologist Signature Glucose 104 (H) 65 - 99 [facility] mg/dL [place] [facility] Comment: ? Fasting reference interv al For someone without known diabetes, a gl ucose value between 100 and 125 mg/dL is consistent with prediabetes and should be confirmed with a follow-up test. Bun 9 7 - 25 mg/dL [employer] [place] [facility] Creatinine, Ser 0.67 0.60 - 0.93 mg/dL [facility] [place] [facility] Comment: For patients >49 years of age, the refer ence limit for Creatinine is approximately 13% high er for people identified as -Montenegr[place]. eGFR NON-AFR. 89 > OR = 60 mL/min/1.73m2 Qu est Diagnostics [facility] eGFR 103 > OR = 60 mL/min/1.73m2 Que st Diagnostics [facility] BUN/Creatinine NOT APPLICABLE 6 - 22 (calc) [facility] [place] [facility] Sodium 137 135 - 146 mmol/L [facility] [place] [facility] Potassium 4.0 3.5 - 5.3 mmol/L [facility] [place] [facility] Chloride 98 98 - 110 mmol/L [facility] [place] [facility] CO2 29 20 - 32 mmol/L [facility] Diagnosti [facility] Calcium 9.2 8.6 - 10.4 mg/dL [facility] [place] [facility] Specimen Anatomical Collection Method Collection Time Receive d Time (Source) Location / / Volume Laterality Blood Venous blood / 12/26/2017 3:56 PM 018 3:56 Unknown EST PM EST Lisa Sotelo MD LAB BLOOD ORDERABLES Performing Organization Address City/State/ZIP Code Phon e Number [employer] [address] [address] [place] [address], [address] [employer] [address] [place] [address] [employer] [address] [phone] Diagnost documented in this encounter Visit Diagnoses Diagnosis Diverticulitis - Primary Diverticulitis of colon (without mention of hemorrhage) documented in this encounter Care Teams Victim Witness Administrator Relationship Specialty Start Date End Date Lisa Sotelo MD PCP - General Family Medicine 08/19/16 03/01/[address] [place] [address] documented as of this encounter
--- OUTSIDE RECORDS SUMMARY | 2021-12-22 09:57 | XMS_ITS | Encounter Summary ---
:1945 Author Organization [facility] Address [address] [facility], [address] [place] [address] Care Team Providers Name Role Phone Laurie Elias HUMAN RESOURCES COMPLIANCE MANAGER Primary Care Provider Unavailable Encounter Details [...] Visit Family Medicine Kevin Miranda MD [address] [place] [address] (Wo rk) documented as of this encounter Visit Diagnoses Not on filedocumented in this encounter Care Teams Welding Machine Operator Thermit Relationship Specialty Start Date End Date Laurie Elias NP PCP - General Family Medicine 03/02/1811/19/19 documented as of this encounter
--- OUTSIDE RECORDS SUMMARY | 2021-12-22 09:57 | XMS_ITS | Encounter Summary ---
:1945 Author Organization [facility] Address [address] [facility], [address] [place] [address] Care Team Providers Name Role Phone Laurie Elias ANN Primary Care Provider Unavailable Encounter Details Date Type Department Care Team Description 03/17/2018 Telephone [facility] Dallas zurita MD Consultants [address] [facility], [address] [facility] t, [address] [place], [place] [address] [place] [address] [phone] (Wo rk) Social History Tobacco Use Types [...] Visit Family Medicine Kevin Miranda MD [address] [facility] [place] [address] (Wo rk) documented as of this encounter Visit Diagnoses Not on filedocumented in this encounter Care Teams Data Control Clerk Relationship Specialty Start Date End Date Laurie Elias NP PCP - General Family Medicine 03/02/1811/19/19 documented as of this encounter
--- OUTSIDE RECORDS SUMMARY | 2021-12-22 09:57 | XMS_ITS | Encounter Summary ---
:1945 Author Organization [facility] Address [address] [facility], [address] [place] [address] Care Team Providers Name Role Phone Lisa Sotelo MD Primary Care Provider Encounter Details Date Type Department Care Team Description 01/31/2018 Refill [facility] Yessy Gee, [address] [place] [address] [place] [address] [place], [place] [address] (Wo rk) Social History [...] Visit Family Medicine Kevin Miranda MD [address] [place] [address] (Wo rk) documented as of this encounter Visit Diagnoses Not on filedocumented in this encounter Care Teams Stereo Compiler Relationship Specialty Start Date End Date Lisa Sotelo MD PCP - General Family Medicine 08/19/16 03/01/18 10[address] [place] [address] documented as of this encounter
--- OUTSIDE RECORDS SUMMARY | 2021-12-22 09:57 | XMS_ITS | Encounter Summary ---
:1945 Author Organization [facility] Address [address] [facility], [address] [place] [address] Care Team Providers Name Role Phone Kevin Miranda MD Primary Care Provider Reason for Visit Reason Comments Med Refill Encounter Details Date Type Department Care Team Description 11/27/2017 Refill [facility] Pr Lisa Gudino MD [address] [place] [address] [place] [address] [phone] (Wo rk) Social History Tobacco Use Types [...] Visit Family Medicine Kevin Miranda MD [address] [place] [address] (Wo rk) documented as of this encounter Visit Diagnoses Not on filedocumented in this encounter Care Teams Sas Statistical Programmer Relationship Specialty Start Date End Date Kevin Miranda MD PCP - General Family Medicine 11/20/[address] [place] [address] documented as of this encounter
--- OUTSIDE RECORDS SUMMARY | 2021-12-22 09:57 | XMS_ITS | Encounter Summary ---
:1945 Author Organization [facility] Address [address] [facility], [address] [place] [address] Care Team Providers Name Role Phone Laurie Elias DRIVER UTILITY WORKER Primary Care Provider Unavailable Encounter Details Date Type Department Care Team Description 03/22/2018 Orders Only [facility] Jose Daniel Jones, [address], [facility] [address] [place] [address] [address] [facility] [place], [place] [address] Social History Tobacco Use [...] Kevin Miranda MD [facility] [place], [place] [address] (Wo rk) documented as of this encounter Visit Diagnoses Not on filedocumented in this encounter Care Teams Supervisor Pigment Making Relationship Specialty Start Date End Date Laurie Elias NP PCP - General Family Medicine 03/02/1811/19/19 documented as of this encounter
--- OUTSIDE RECORDS SUMMARY | 2021-12-22 09:57 | XMS_ITS | Encounter Summary ---
:1945 Author Organization [facility] Address [address] [facility], [address] [place] [address] Care Team Providers Name Role Phone Laurie Elias NP Primary Care Provider Unavailable Encounter Details Date Type Department Care Team Description 03/29/2018 Telephone [facility] Laurie Brown NP [address] [place] [address] Social History Tobacco Use Types Packs/Day Years Used Date Former Smoker Smokeless Tobacco: Never Used Alcohol Use Standard Drinks/Week Comments Defer 0 (1 standard drink = 0.6 oz pure alcoho l) Sex Assigned at Date Recorded Female 04/12/2019 2:19 PM EST documented as of this encounter Miscellaneous Notes Telephone Encounter - Laurie Elias NP - 03/29/2018 12:44 PM EST TC to [facility]. Advised Dr. Gorman will return tomorrow. Regarding [...] [address] [place], [place] [address] (Wo rk) documented as of this encounter Visit Diagnoses Not on filedocumented in this encounter Care Teams Brand Manager Relationship Specialty Start Date End Date Laurie Elias NP PCP - General Family Medicine 03/02/1811/19/19 documented as of this encounter
--- OUTSIDE RECORDS SUMMARY | 2021-12-22 09:57 | XMS_ITS | Encounter Summary ---
:1945 Author Organization [facility] Address [address] [facility], [address] [place] [address] Care Team Providers Name Role Phone Lisa [...] Medicine Kevin Miranda MD [facility] [place], [place] [address] (Wo rk) documented as of this encounter Visit Diagnoses Not on filedocumented in this encounter Care Teams Food Stand Manager Relationship Specialty Start Date End Date Lisa Sotelo MD PCP - General Family Medicine 08/19/16 03/01/[address] [place] [address] documented as of this encounter
--- OUTSIDE RECORDS SUMMARY | 2021-12-22 09:57 | XMS_ITS | Encounter Summary ---
:1945 Author Organization [facility] Address [address] [facility], [address] [place] [address] Care Team Providers Name Role Phone Laurie Elias ADULT MINISTRIES DIRECTOR Primary Care Provider Unavailable Encounter Details [...] Visit Family Medicine Kevin Miranda MD [address] [place] [address] (Wo rk) documented as of this encounter Visit Diagnoses Not on filedocumented in this encounter Care Teams Casino Accountant Relationship Specialty Start Date End Date Laurie Elias NP PCP - General Family Medicine 03/02/1811/19/19 documented as of this encounter
--- OUTSIDE RECORDS SUMMARY | 2021-12-22 09:57 | XMS_ITS | Encounter Summary ---
:1945 Author Organization [facility] Address [address] [facility], [address] [place] [address] Care Team Providers Name Role Phone Laurie Elias HIGH HEEL BUILDER Primary Care Provider Unavailable Encounter Details Date Type Department Care Team Description 03/02/2018 Orders Only [facility] Laurie Brown NP [address] [place] [address] Social History Tobacco Use Types Packs/Day Years [...] Visit Family Medicine Kevin Miranda MD [address] [place], [place] [address] (Wo rk) documented as of this encounter Procedures Procedure Name Priority Date/Time Associated Comments Diagnosis CBC (INCLUDES Routine 03/02/2018 3:15 PM Results for this DIFFERENTIAL AND EST procedure a re in PLATELETS)- [facility] the result s ONLY section. BASIC METABOLIC PANEL Routine 03/02/2018 3:15 PM Results for this EST procedure are i n the results section. documented in this encounter Results [facility] - CBC (with Differential and Platelets) (03/02/2018 3:15 PM EST) Analysis Performed At [facility] Time Signature White Blood TNP Thousand/u [facility] Count L [facility] Comment: * Test not performed. ? * * Duplicate test. ? * Specimen Anatomical Collection Method Collection Time Receive d Time (Source) Location / / Volume Laterality 03/02/2018 3:15 PM 9 3:18 EST PM EST Laurie Elias NP LAB BLOOD ORDERABLES Performing Organization Address [facility] Phon e Number [employer] [address], [address] [employer] [address] [place] [address] [employer] [address] [phone] Diagnost Basic metabolic panel (03/02/2018 3:15 PM EST) P athologist Signature Glucose TNP mg/dL [employer] [place] [employer] [facility] Comment: * Test not performed. ? * * Duplicate test. ? * Specimen Anatomical Collection Method Collection Time Receive d Time (Source) Location / / Volume Laterality 03/02/2018 3:15 PM 9 3:18 EST PM EST Laurie Elias NP LAB BLOOD ORDERABLES Performing Organization Address [facility] Phon e Number [employer] [address], [address] [employer] [address] [place] [address] [employer] [address] [phone] Diagnost documented in this encounter Visit Diagnoses Not on filedocumented in this encounter Care Teams Team Driver Relationship Specialty Start Date End Date Laurie Elias NP PCP - General Family Medicine 03/02/1811/19/19 documented as of this encounter
--- OUTSIDE RECORDS SUMMARY | 2021-12-22 09:57 | XMS_ITS | Encounter Summary ---
:1945 Author Organization [facility] Address [address] [facility], [address] [place] [address] Care Team Providers Name Role Phone Lisa [...] Kevin Miranda MD [facility] [place], [place] [address] (Wo rk) documented as of this encounter Visit Diagnoses Not on filedocumented in this encounter Care Teams Agricultural Education Teacher Relationship Specialty Start Date End Date Lisa Sotelo MD PCP - General Family Medicine 08/19/16 03/01/[address] [place] [address] documented as of this encounter
--- OUTSIDE RECORDS SUMMARY | 2021-12-22 09:57 | XMS_ITS | Encounter Summary ---
:1945 Author Organization [facility] Address [address] [facility], [address] [place] [address] Care Team Providers Name Role Phone Laurie Elias NP Primary Care Provider Unavailable Encounter Details Date Type Department Care Team Description 03/10/2018 Telephone [facility] Laurie Brown NP [address] [place], [place] [id number] Social History Tobacco Use Types Packs/Day Years [...] fever at night. As such, she contacted [facility] to be [facility]. Due to the [...] Visit Family Medicine Kevin Miranda MD [address] [place] [address] (Wo rk) documented as of this encounter Visit Diagnoses Not on filedocumented in this encounter Care Teams Foamite Mixer Relationship Specialty Start Date End Date Laurie Elias NP PCP - General Family Medicine 03/02/1811/19/19 documented as of this encounter
--- OUTSIDE RECORDS SUMMARY | 2021-12-22 09:57 | XMS_ITS | Encounter Summary ---
:1945 Author Organization [facility] Address 330 [facility], [address] [place] [address] Care Team Providers Name Role Phone Laurie Elias PRODUCT MANAGEMENT INTERNSHIP Primary Care Provider Unavailable Encounter Details Date Type Department Care Team Description 03/08/2018 Scan Document - View Trini Gómez in Chart Practice PRODUCT MANAGEMENT INTERNSHIP [facility] [place] [address] Social History Tobacco Use Types Packs/Day Years [...] Visit Family Medicine Kevin Miranda MD [address] [place] [address] (Wo rk) documented as of this encounter Visit Diagnoses Not on filedocumented in this encounter Care Teams Account Installation Specialist Relationship Specialty Start Date End Date Laurie Elias NP PCP - General Family Medicine 03/02/1811/19/19 documented as of this encounter
--- OUTSIDE RECORDS SUMMARY | 2021-12-22 09:57 | XMS_ITS | Encounter Summary ---
:1945 Author Organization [facility] Address [address] [facility], [address] [place] [address] Care Team Providers Name Role Phone Laurie Elias NP Primary Care Provider Unavailable Reason for Referral Rehab (Routine) - Closed Specialty Diagnoses / Procedures Referred By Contact Refer red To Contact Physical Therapy Diagnoses Groin pain, chronic, left Nawaf Jason MD Duddy, Cathy, PT [address] [place] [address] Referral ID Status Reason Start Date Expiration Date Visits V isits Requested Authorized [id number] Closed Specialty 01/25/2018 01/25/2019 1 1 Services Required Reason for Visit Specialty (Routine) - Closed Specialty Diagnoses / Referred By Contact Referred To Contact Procedures Physical Medicine and Diagnoses Low back pain MRI FOLLOW-UP Lisa Sotelo MD Mostoufi, Seyed A, Rehabilitation Procedures FOLLOW UP [address] [place] [address] [facility] [place] [address] [place] [address] Fax: Referral ID Status Reason Start Date Expiration Date Visits Requ ested Visits Authorized [id number] Closed 06/13/2017 06/13/2018 8 8 Encounter Details Date Type Department Care Team Description 01/25/2018 Office Visit Nawaf Faulkner, Lumbar fa cet arthropathy (Primary Dx); Physiatry, [facility] Radiculopathy, lumbar region; [address] It band syndrome, left; [place] [address] [place], [place] Groin pain, chronic, left; [phone] Tendinopathy of left gluteus medius Social History [...] from the original note were not included. [facility] T: [phone] F:[phone] Sitrion .The Smartphone Physical Patient / [place] : 1945 PCP Lisa Sotelo MD Visit Location [facility] [place] : [address] [phone] Provider Nawaf Jason MD REASON FOR PM&R [...] flavum hypertrophy. Bilateral disc protrusions result in asgf-vv-yxywnodh right and mild left neural foraminal narrowing, [...] physical therapist on this includes working on spiritism of her range of motion working and [...] available PT notes obtained & reviewed. RESULT REVIEWED([id number]) Available PACS as well as results reviewed [...] views ap lat Narrative [place] Ministerio [id number] [facility] Silvai.Yessy Leyva Kallie UNK [id number] 1945 68 07/02/2013 Clinical History: RT BUTTOCK AND HIP PAIN EXAM# TYPE/EXAM RESULT [id number] TCK328/LUMBAR SPINE 2-3 VIEWS Attending Radiologist: MD OROZCO [...] are preserved. Impression: Degenerative change. Report ID: [id number] Dictated: 07/02/13 1328 PAGE 1 Signed Report (CONTINUED) [place] [id number] Stewart JohnYessy UNK UNK [id number] 1945 68 07/02/2013 Clinical History: RT BUTTOCK AND HIP PAIN EXAM# TYPE/EXAM RESULT [id number] CEF279/LUMBAR SPINE 2-3 VIEWS <Continued> ---- Electronic Signature on File ---- Signed By: RAMA OROZCO M.D. Reported By: RAMA OROZCO M.D. CC: Hieu Trevizo M.D.; Yessy William N.P. PAGE 2 Signed Report CC: Hieu Trevizo M.D.; Yessy William N.P. PAGE 2 Signed Report Radiologist JACQUELINE Protocol Manager: PANKAJ Messenger Office: [facility] Results for orders placed during the hospital encounter of 06/22/17 MRI Lumbar Spine without Contrast Narrative RESPONSIBLE SENIOR SOFTWARE DEVELOPMENT ENGINEER: Dusty Norwood M.D. EXAMINATION: MRI LUMBAR [...] canal stenosis. Bilateral disc protrusions result in wxhj-cc-cvywccfi right and mild left neural foraminal narrowing, [...] foramina and contact of the exiting right L1zorhf root. There is bwyg-ms-uwdaphjj encroachment of the left neural foramina, but [...] flavum hypertrophy. Bilateral disc protrusions result in wasn-qe-trwegvfi right and mild left neural foraminal narrowing, [...] for further education on the topic : [employer] DISCLAIMER Please note that this record has [...] Office Visit Family Medicine Kevin Miranda MD [facility] [place], [place] [address] (Wo rk) Scheduled Orders [...] medius documented in this encounter Care Teams Hydraulic Repairer Relationship Specialty Start Date End Date Laurie Elias NP PCP - General Family Medicine 03/02/1811/19/19 documented as of this encounter
--- OUTSIDE RECORDS SUMMARY | 2021-12-22 09:57 | XMS_ITS | Encounter Summary ---
:1945 Author Organization [facility] Address [address] [facility], [address] [place] [address] Care Team Providers Name Role Phone Lisa Sotelo MD Primary Care Provider Encounter Details Date Type Department Care Team Description 11/10/2017 Scan Document - View [facility] Lisa Sotelo in [facility] [address] [place] [address] [place] [address] Social History Tobacco Use Types Packs/Day Years [...] Office Visit Family Medicine Kevin Miranda MD [address] [place] [address] (Wo rk) documented as of this encounter Visit Diagnoses Not on filedocumented in this encounter Care Teams Microfilm Duplicating Unit Supervisor Relationship Specialty Start Date End Date Lisa Sotelo MD PCP - General Family Medicine 08/19/16 03/01/[address] [place] [address] documented as of this encounter
--- OUTSIDE RECORDS SUMMARY | 2021-12-22 09:57 | XMS_ITS | Encounter Summary ---
:1945 Author Organization [facility] Address [address] [facility], [address] [place] [address] Care Team Providers Name Role Phone Laurie Elias NP Primary Care Provider Unavailable Reason for Referral Diagnostic Imaging (Routine) - Closed Specialty Diagnoses / Procedures Referred By Contact Refer red To Contact Radiology Diagnoses Diverticulitis Lower abdominal pain Laurie Elias NP Procedures CT Abdomen Pelvis with Contrast [address] [place] [address] Referral ID Status Reason Start Date Expiration Date Visits Requ ested Visits Authorized [id number] Closed 03/02/2018 03/02/2019 1 1 Reason for Visit Diagnostic Imaging (Routine) - Closed Specialty Diagnoses / Procedures Referred By Contact Refer red To Contact Radiology Diagnoses Diverticulitis Lower abdominal pain Laurie Elias NP Procedures CT Abdomen Pelvis with Contrast [address] [place] [address] Referral ID Status Reason Start Date Expiration Date Visits Requ ested Visits Authorized [id number] Closed 03/02/2018 03/02/2019 1 1 Encounter Details Date Type Department Care Team Description 03/03/2018 Hospital Encounter [facility] CT Letty Elias Scan MEAT SEAFOOD ASSOCIATE [address] [place] [address] Social History Tobacco Use Types Packs/Day [...] Medicine Kevin Miranda MD [facility] [place], [place] [address] (Wo rk) documented as [...] ation. Dictated: 03/03/2018 10:05 PM Report ID: [id number] Report signed in external system at 03/03 22:05 Reported By: Andi Hartley M.D. (residehillary dorman) ([id number]) Signed By: Gt Ledezma M.D. (LAURA Betancur) Narrative 03/03/2018 10:05 PM EST RESPONSIBLE MEAT PROCESS WORKER: Gt Ledezma M.D. EXAMINATION: CT ABDOMEN PELVIS [...] might be different from the original. RESPONSIBLE MEAT PROCESS WORKER: Gt Ledezma M.D. EXAMINATION: CT ABDOMEN PELVIS [...] ation. Dictated: 03/03/2018 10:05 PM Report ID: [id number] Report signed in external system at 03/03 22:05 Reported By: Andi Hartley M.D. (pam dorman) ([id number]) Signed By: Gt Ledezma M.D. (LAURA Betancur) [...] dose documented in this encounter Care Teams Channel Specialist Relationship Specialty Start Date End Date Laurie Elias NP PCP - General Family Medicine 03/02/1811/19/19 documented as of this encounter
--- OUTSIDE RECORDS SUMMARY | 2021-12-22 09:57 | XMS_ITS | Encounter Summary ---
:1945 Author Organization [facility] Address [address] [facility], [address] [place] [address] Care Team Providers Name Role Phone Laurie Elias COMPUTER MECHANIC Primary Care Provider Unavailable Encounter Details [...] Visit Family Medicine Kevin Miranda MD [address] [place] [address] (Wo rk) documented as of this encounter Visit Diagnoses Not on filedocumented in this encounter Care Teams Dispatch Manager Relationship Specialty Start Date End Date Laurie Elias NP PCP - General Family Medicine 03/02/1811/19/19 documented as of this encounter
--- OUTSIDE RECORDS SUMMARY | 2021-12-22 09:57 | XMS_ITS | Encounter Summary ---
:1945 Author Organization [facility] Address [address] [facility], [address] [place] [address] Care Team Providers Name Role Phone Laurie Elias NP Primary Care Provider Unavailable Encounter Details Date Type Department Care Team Description 03/06/2018 Telephone [facility] José Antonio ling MD Consultants [address] [facility], [address] [facility] [address], [facility] [address] [address] [phone] (Wo rk) Social History Tobacco Use Types [...] Visit Family Medicine Kevin Miranda MD [address] [place], [place] [address] (Wo rk) documented as of this encounter Visit Diagnoses Not on filedocumented in this encounter Care Teams Size Marker Relationship Specialty Start Date End Date Laurie Elias NP PCP - General Family Medicine 03/02/1811/19/19 documented as of this encounter
--- OUTSIDE RECORDS SUMMARY | 2021-12-22 09:57 | XMS_ITS | Encounter Summary ---
:1945 Author Organization [facility] Address [address] [facility], [address] [place] [address] Care Team Providers Name Role Phone Laurie Elias NP Primary Care Provider Unavailable Encounter Details Date Type Department Care Team Description 03/09/2018 Office Visit Gracey Sherif, Diverticulitis large Gastrointestinal MD [place] intestine w/o [facility] [address] [facility] perforation or abscess [address] [facility], w/o arturo zamudio (Primary Alber [address] Dx) [place], [place] [id number] [place] [address] Social History Tobacco Use Types Packs/Day Years [...] were not included. 03/12/18 Dallas Gorman M.D. film archivist, [facility] Chief, Gastroenterology [facility] [address] [place] [address] FAX [phone] Email: [email or web address] 03/12/18 Re: [id number] Molly Rios Referring physician: Laurie Elias, ANN [address] [facility] [address] Molly Rios is a 73 y.o. female [...] Kevin Miranda MD [facility] [place], [place] [address] (Wo rk) documented as of this encounter Visit Diagnoses Diagnosis Diverticulitis large intestine w/o perfo ration or abscess w/o bleeding - Primary documented in this encounter Care Teams Cylinder Tester Relationship Specialty Start Date End Date Laurie Elias NP PCP - General Family Medicine 03/02/1811/19/19 documented as of this encounter
--- OUTSIDE RECORDS SUMMARY | 2021-12-22 09:57 | XMS_ITS | Encounter Summary ---
:1945 Author Organization [facility] Address [address] [facility], [address] [place] [address] Care Team Providers Name Role Phone JadaHeatherLaurie PERIOPERATIVE NURSE Primary Care Provider Unavailable Encounter Details Date Type Department Care Team Description 03/13/2018 Rehab [facility] Physical Se lázaro Jason MD [address] [place] [address] Chronic low back pain, Therapy Pricila Curry, PT unspecified back pain [address] [facility], [facility], with [address] [place] [address] unspecified (Primary Dx) [phone] Social History Tobacco Use Types Packs/Day Years Used Date Former Smoker Smokeless Tobacco: Never Used Alcohol Use Standard Drinks/Week Comments Defer 0 (1 standard drink = 0.6 oz pure alcoho l) Sex Assigned at Date Recorded Female 04/12/2019 2:19 PM EST documented as of this encounter Progress Notes Pricila Curry, PT - 03/13/2018 1:30 PM EST Rehabilitation Services Physical Therapy [address] [facility], [address] [facility] [address] PROGRESS NOTE visit 2 ALBERT [...] pain improved). Pt seen by PT at [facility] for R hip pain. Started doing side lying hip abd with 5 lb. Developed more pain (? Overdid her ex). + R sided groin pain. CC is weakness B hips. Referred to PT for consult. Will f/u with MD after completion of PT. Seen by ortho at [facility]-x-rays done, advised to strengthen/stretch R LE. ?? [...] Visit Family Medicine Kevin Miranda MD [address] [place] [address] (Wo rk) documented as of this encounter Visit Diagnoses Diagnosis Chronic low back pain, unspecified back pain laterality, with sciatica presence unspecified - Primary documented in this encounter Care Teams Ballistics Professor Relationship Specialty Start Date End Date Laurie Elias NP PCP - General Family Medicine 03/02/1811/19/19 documented as of this encounter
--- OUTSIDE RECORDS SUMMARY | 2021-12-22 09:57 | XMS_ITS | Encounter Summary ---
:1945 Author Organization [facility] Address [address] [facility], [address] [place] [address] Care Team Providers Name Role Phone Laurie Elias COATING MIXER SUPERVISOR Primary Care Provider Unavailable Encounter Details [...] Visit Family Medicine Kevin Miranda MD [address] [place] [address] (Wo rk) documented as of this encounter Visit Diagnoses Not on filedocumented in this encounter Care Teams Lathe Mechanic Relationship Specialty Start Date End Date Laurie Elias NP PCP - General Family Medicine 03/02/1811/19/19 documented as of this encounter
--- OUTSIDE RECORDS SUMMARY | 2021-12-22 09:57 | XMS_ITS | Encounter Summary ---
:1945 Author Organization [facility] Address [address] [facility], [address] [place] [address] Care Team Providers Name Role Phone Lisa Sotelo MD Primary Care Provider Reason for Referral Diagnostic Imaging (Routine) - Closed Specialty Diagnoses / Procedures Referred By Contact Refer red To Contact Radiology Diagnoses Osteopenia of neck of left femur Lisa Sotelo MD Procedures DEXA Bone Density [facility] [address] [place] [address] Referral ID Status Reason Start Date Expiration Date Visits Requ ested Visits Authorized [id number] Closed 01/16/2018 01/16/2019 1 1 Reason for Visit Reason Comments Office Visit Encounter Details Date Type Department Care Team Description 01/16/2018 Office Visit [facility] Lisa Sotelo Osteope feliberto of neck of left femur (Primary Dx); Practice MD Dense breasts; [facility] [place] [address] [place], [place] [phone] [address] Social History Tobacco Use Types Packs/Day Years [...] her there, did recommend female providers at [facility]. documented in this encounter Plan of Treatment Upcoming Encounters Date Type Specialty Care Team Description 04/19/2022 Office Visit Family Medicine Kevin Miranda MD [address] [place], [place] [address] (Wo rk) documented as [...] sheets). Dictated: 01/18/2018 2:16 PM Report ID: [id number] Report signed in external system at 06/2017 14:16 Reported By: Ankit Richey M.D. (SCHJ 1) Signed By: Ankit Richey M.D. ([email or web address]) Narrative 01/18/2018 2:16 PM EST RESPONSIBLE LITERACY TEACHER: Ankit Richey M.D. EXAMINATION: DEXA BONE DENSITY [...] might be different from the original. RESPONSIBLE LITERACY TEACHER: Ankit Richey M.D. EXAMINATION: DEXA BONE DENSITY CENTRAL CLINICAL INDICATION: Osteopenia. Postmenopausal female. TECHNIQUE: Dual Energy X-Ray Absorptiometry (DEXA t NetstoryniPlayerPro) was performed with measurements of the right [...] sheets). Dictated: 01/18/2018 2:16 PM Report ID: [id number] Report signed in external system at 06/2017 [...] femur documented in this encounter Care Teams Gambling Dealer Relationship Specialty Start Date End Date Lisa Sotelo MD PCP - General Family Medicine 08/19/16 03/01/[address] [place] [address] documented as of this encounter
--- OUTSIDE RECORDS SUMMARY | 2021-12-22 09:57 | XMS_ITS | Encounter Summary ---
:1945 Author Organization [facility] Address [address] [facility], [address] [place] [address] Care Team Providers Name Role Phone Laurie Elias GRANITE INSTALLER Primary Care Provider Unavailable Encounter Details [...] Visit Family Medicine Kevin Miranda MD [address] [place] [address] (Wo rk) documented as of this encounter Visit Diagnoses Not on filedocumented in this encounter Care Teams Paper Maker Relationship Specialty Start Date End Date Laurie Elias NP PCP - General Family Medicine 03/02/1811/19/19 documented as of this encounter
--- OUTSIDE RECORDS SUMMARY | 2021-12-22 09:57 | XMS_ITS | Encounter Summary ---
:1945 Author Organization [facility] Address [address] [facility], [address] [place] [address] Care Team Providers Name Role Phone Laurie Elias NP Primary Care Provider Unavailable Reason for Visit Reason Onset Date Comments Abdominal Pain 03/02/2018 Encounter Details Date Type Department Care Team Description 03/02/2018 Telephone [place] [facility]y [place], Abdominal Pain [facility] [address] [facility] [address], [facility] [address] [address] [place] [address] , [address] [place], [place] [address] (Wo rk) Social History [...] Kevin Miranda MD [address] [facility] [place] [address] (Wo rk) documented as of this encounter Visit Diagnoses Not on filedocumented in this encounter Care Teams Chief Jailer Relationship Specialty Start Date End Date Laurie Elias NP PCP - General Family Medicine 03/02/1811/19/19 documented as of this encounter
--- OUTSIDE RECORDS SUMMARY | 2021-12-22 09:58 | XMS_ITS | Encounter Summary ---
:1945 Author Organization [facility] Address [address] [facility], [address] [place] [address] Care Team Providers Name Role Phone Kevin Miranda MD Primary Care Provider Reason for Visit Reason Comments Med Refill Encounter Details Date Type Department Care Team Description 06/06/2017 Refill [facility] Pr Lisa Gudino MD [address] [place] [address] [place] [address] [phone] (Wo rk) Social History Tobacco Use Types [...] Visit Family Medicine Kevin Miranda MD [address] [place] [address] (Wo rk) documented as of this encounter Visit Diagnoses Not on filedocumented in this encounter Care Teams Grad Intern Relationship Specialty Start Date End Date Kevin Miranda MD PCP - General Family Medicine 11/20/[address] [place] [address] documented as of this encounter
--- OUTSIDE RECORDS SUMMARY | 2021-12-22 09:58 | XMS_ITS | Encounter Summary ---
:1945 Author Organization [facility] Address [address] [facility], [id number] [place] [address] Care Team Providers Name Role Phone Lisa Sotelo MD Primary Care Provider Reason for Visit Reason Comments Abdominal Pain Encounter Details Date Type Department Care Team Description 08/28/2016 Emergency [place] [facility] Alphonso Badillo MD Department [address] [place] [address] e[place], [place] [id number] [place] [phone] [phone] Social History Tobacco Use Types Packs/Day Years [...] evaluated and treated primarily by the Physician Senior Hydrogeologist (PA). The supervising Attending Physician did see [...] right for you. Copyright Copyright ?? 2016 [employer]. and its affiliates and/or licensors. All rights [...] post ORIF of the left clavicle fracture [facility]. She is Dilaudid for the first 2 [...] 2016, 1:30 PM Alphonso Morton MD 08/28/16 2718 Alphonso Morton MD - 08/28/2016 1:04 PM EDT I have reviewed the patient's clinical presentation, history, and examination. In addition, I have interviewed and examined the patient. I agree with the PA's history and exam except as noted. I supervised the decision making process, including orders and disposition. MD Alphonso Rosa MD 08/28/16 9482 Helen Duenas RN - 08/28/2016 1:03 PM [...] clavicle on 08/24/[address] Levy at [facility]. She states that this surgery was without [...] interpretation. Dictated: 08/28/2016 11:59 AM Report ID: [id number] Report signed in external system at 08/28/2016 [...] following orders were created for panel order [place] draw. Procedure Abnormality Status --------- ------ Gold Top[[id number]] Gold Top[[id number]] Light Blue Top[[id number]] Final result Lavender Top[[id number]] Red Top[[id number]] Please view results for these tests on the individual orders. LIGHT BLUE TOP GOLD TOP GOLD TOP ED COURSE, ASSESSMENT, AND PLAN Emergency Department Course ED Course Value Comment By Time WBC: (!) 16.49 (Reviewed) Alphonso oMrton MD 08/28 1145 LACTATE PLASMA: 1.3 (Reviewed) [...] reach the coverage for patient's surgeon at [facility]. I spoke with this individual who states [...] home. Continue MiraLAX. Dulcolax suppository once daily. Tuwa-cdb-zzyzbkh analgesia for pain, avoid opioid medications to [...] Kevin Miranda MD [facility] [place], [place] [address] (Wo rk) documented [...] (08/28/2016 11:35 AM EDT) Analysis Performed At [facility] Time Signature URINE No 08/28/2016 [facility] SEDIMENTATION 12:27 PM HOSPITAL REQUIRED? EDT LABORATORY Color Light 08/28/2016 [facility] Yellow 12:27 PM HOSPITAL EDT LABORATORY SG 1.002 1.002 - 08/28/2016 [facility] 1.030 12:27 PM HOSPITAL EDT LABORATORY pH, Urine 7.0 5.0 - 8.0 08/28/2016 [facility] 12:27 PM HOSPITAL EDT LABORATORY Albumin Negative 08/28/2016 [facility] 12:27 PM HOSPITAL EDT LABORATORY Glucose Negative Negative 08/28/2016 [facility] 12:27 PM HOSPITAL EDT LABORATORY Ketones Negative Negative 08/28/2016 [facility] 12:27 PM HOSPITAL EDT LABORATORY Blood Negative Negative 08/28/2016 [facility] 12:27 PM HOSPITAL EDT LABORATORY Nitrite Negative Negative 08/28/2016 [facility] 12:27 PM HOSPITAL EDT LABORATORY Hyaline Casts 0 - 5 /LPF LAB 08/28/2016 [facility] URINALYSIS - 12:27 PM HOSPITAL AUTOMATED EDT LABORATORY METHOD Granular Casts 0 - 2 /LP[facility] LAB 08/28/2016 [facility] URINALYSIS - 12:27 PM HOSPITAL AUTOMATED EDT LABORATORY METHOD WBC CASTS None Seen LAB 08/28/2016 [facility] /[facility] URINALYSIS - 12:27 PM HOSPITAL AUTOMATED EDT LABORATORY METHOD RBC Casts None Seen LAB 08/28/2016 [facility] /[facility] URINALYSIS - 12:27 PM HOSPITAL AUTOMATED EDT LABORATORY METHOD Waxy Casts, None Seen LAB 08/28/2016 [facility] Urine /[facility] URINALYSIS - 12:27 PM HOSPITAL AUTOMATED EDT LABORATORY METHOD Fatty Casts None Seen LAB 08/28/2016 [facility] /[facility] URINALYSIS - 12:27 PM HOSPITAL AUTOMATED EDT LABORATORY METHOD WBC Clumps None Seen LAB 08/28/2016 [facility] /HPF URINALYSIS - 12:27 PM HOSPITAL AUTOMATED EDT LABORATORY METHOD EPITH CELLS 0 - 5 /HPF LAB 08/28/2016 [facility] URINALYSIS - 12:27 PM HOSPITAL AUTOMATED EDT LABORATORY METHOD Renal Cells None Seen LAB 08/28/2016 [facility] /[facility] URINALYSIS - 12:27 PM HOSPITAL AUTOMATED EDT LABORATORY METHOD Amorphous None Seen LAB 08/28/2016 [facility] /[facility] URINALYSIS - 12:27 PM HOSPITAL AUTOMATED EDT LABORATORY METHOD Uric Acid None Seen LAB 08/28/2016 [facility] URINALYSIS - 12:27 PM HOSPITAL AUTOMATED EDT LABORATORY METHOD Calcium Oxalate None Seen LAB 08/28/2016 [facility] Crystals /HPF URINALYSIS - 12:27 PM HOSPITAL AUTOMATED EDT LABORATORY METHOD Triple Phosphate None Seen LAB 08/28/2016 [facility] Crystals /HPF URINALYSIS - 12:27 PM HOSPITAL AUTOMATED EDT LABORATORY METHOD Calcium None Seen LAB 08/28/2016 [facility] Carbonate /[facility] URINALYSIS - 12:27 PM HOSPITAL Crystals AUTOMATED EDT LABORATORY METHOD Calcium None Seen LAB 08/28/2016 [facility] Phosphate /HPF URINALYSIS - 12:27 PM HOSPITAL Crystals AUTOMATED EDT LABORATORY METHOD Cystine None Seen LAB 08/28/2016 [facility] URINALYSIS - 12:27 PM HOSPITAL AUTOMATED EDT LABORATORY METHOD Leucine None Seen LAB 08/28/2016 [facility] URINALYSIS - 12:27 PM HOSPITAL AUTOMATED EDT LABORATORY METHOD Tyrosine None Seen LAB 08/28/2016 [facility] [facility] URINALYSIS - 12:27 PM HOSPITAL AUTOMATED EDT LABORATORY METHOD Mucous None Seen LAB 08/28/2016 [place] /[facility] URINALYSIS - 12:27 PM HOSPITAL AUTOMATED EDT LABORATORY METHOD Yeast Budding None Seen LAB 08/28/2016 [facility] [facility] URINALYSIS - 12:27 PM HOSPITAL AUTOMATED EDT LABORATORY METHOD Yeast Hyphae None Seen LAB 08/28/2016 [facility] [facility] URINALYSIS - 12:27 PM HOSPITAL AUTOMATED EDT LABORATORY METHOD Trichomonas None Seen LAB 08/28/2016 [facility] [facility] URINALYSIS - 12:27 PM HOSPITAL AUTOMATED EDT LABORATORY METHOD WBC esterase Negative 08/28/2016 [facility] 12:27 PM HOSPITAL EDT LABORATORY TURBIDITY Clear CLEAR 08/28/2016 [facility] 12:27 PM HOSPITAL EDT LABORATORY WBC 0 - 5 /HPF LAB 08/28/2016 [facility] URINALYSIS - 12:27 PM HOSPITAL AUTOMATED EDT LABORATORY METHOD RBC 0 - 5 /HPF LAB 08/28/2016 [facility] URINALYSIS - 12:27 PM HOSPITAL AUTOMATED EDT LABORATORY METHOD Unidentified None Seen LAB 08/28/2016 [facility] Crystals URINALYSIS - 12:27 PM HOSPITAL AUTOMATED EDT LABORATORY METHOD Bile Negative 08/28/2016 [facility] 12:27 PM HOSPITAL EDT LABORATORY Specimen Anatomical Collection Method Collection Time Receive d Time (Source) Location / / Volume Laterality Urine Urine specimen Non-blood 08/28/2016 11:35 7 collection, clean Collection / AM EDT 11:39 AM E DT catch / Unknown Unknown Alphonso Morton MD LAB URINE ORDERABLES Performing Organization Address City/State/ZIP Code Phon e Number [facility] [address] [place] [address] LABORATORY X-ray Chest 2 Views [...] ation. Dictated: 08/28/2016 11:59 AM Report ID: [id number] Report signed in external system at 08/28 11:59 Reported By: Jeremiah Trevizo M.D. (resi dent) - PROVIDER ID: BHANU (BHANU) Signed By: Joshua Arora M.D. - PRO VIDER ID: DREA (DREA) Narrative 08/28/2016 11:59 AM EDT RESPONSIBLE BILINGUAL CUSTOMER SERVICE SPECIALIST: Joshua Arora M.D. - PROVIDER ID: G [...] might be different from the original. RESPONSIBLE BILINGUAL CUSTOMER SERVICE SPECIALIST: Joshua Arora M.D. - PROVIDER ID: G [...] ation. Dictated: 08/28/2016 11:59 AM Report ID: [id number] Report signed in external system at 08/28 [...] Organization Address City/State/ZIP Code Phon e Number [address] [address] LABORATORY hCG, serum, qualitative (08/28/2016 10:47 AM EDT) Analysis Performed At Patho logist Time Signature HCG SERUM QUAL Negative Negative 08/28/2016 [place] 11:42 AM EDT [facility] LABORATORY Specimen Anatomical Collection Method / Collection Time Recei nancy Time (Source) Location / Volume Laterality Blood Venous blood / Venipuncture / 08/28/2016 10:47 017 Unknown Unknown AM EDT 10:57 AM EDT Alphonso Morton MD LAB BLOOD ORDERABLES Performing Organization Address City/State/ZIP Code Phon e Number [facility] [address] [place] [address] LABORATORY (ABNORMAL) CBC auto differential (08/28/2016 10:47 AM EDT) [facility] Method Time Signature WBC 16.49 (H) 4.0 - 08/28/2016 [place] 10.8 11:13 AM [facility] 10*3/uL LABORATORY nRBC 0 0 - 0 08/28/2016 [place] /100 WBCs 11:13 AM [facility] LABORATORY RBC 3.90 (L) 4.20 - 08/28/2016 [place] 5.40 11:13 AM [facility] 10*6/uL LABORATORY HGB 12.3 12.0 - 08/28/2016 [place] 16.0 g/dL 11:13 AM [facility] LABORATORY HCT 36.3 35.0 - 08/28/2016 [place] 48.0 % 11:13 AM [facility] LABORATORY MCV 93.1 81.0 - 08/28/2016 [place] 99.0 fL 11:13 AM [facility] LABORATORY MCH 31.5 26.0 - 08/28/2016 [place] 33.0 pg 11:13 AM [facility] LABORATORY MCHC 33.9 32.0 - 08/28/2016 [place] 36.0 g/dL 11:13 AM [facility] LABORATORY PLT 337 150 - 350 08/28/2016 [place] 10*3u/L 11:13 AM [facility] LABORATORY RDW-CV 14.2 11.5 - 08/28/2016 [place] 14.5 % 11:13 AM [facility] LABORATORY Segmented % 83.1 30.0 - 08/28/2016 [place] 85.0 % 11:13 AM [facility] LABORATORY ABS Neutrophil 13.72 (H) 1.5 - 6.5 08/28/2016 [place] 10*3/uL 11:13 AM [facility] LABORATORY Lymphocytes % 7.0 (L) 15.0 - 08/28/2016 [place] 50.0 % 11:13 AM [facility] LABORATORY ABS Lymphocyte 1.15 1.0 - 3.7 08/28/2016 [facility] 10*3u/L 11:13 AM EDT HOSPITAL LABORATORY Monocytes % 8.7 0.0 - 08/28/2016 [place] 10.0 % 11:13 AM EDT HOSPITAL LABORATORY Eosinophils % 0.5 % 08/28/2016 [place] 11:13 AM EDT HOSPITAL LABORATORY Basophil % 0.4 0.0 - 2.0 08/28/2016 [facility] % 11:13 AM EDT HOSPITAL LABORATORY IMM GRAN 0.3 0.0 - 1.0 08/28/2016 [facility] % 11:13 AM EDT HOSPITAL LABORATORY Specimen Anatomical Collection Method / Collection Time Recei nancy Time (Source) Location / Volume Laterality Blood Venous blood / Venipuncture / 08/28/2016 10:47 017 Unknown Unknown AM EDT 10:54 AM EDT Alphonso Morton MD LAB BLOOD ORDERABLES Performing Organization Address City/[facility]/ZIP [facility] Phon e Number [place] [address] LABORATORY Lactic acid, plasma (08/28/2016 10:46 AM EDT) P athologist Signature LACTATE 1.3 0.7 - 2.1 08/28/2016 [place] mmol/L 11:37 AM EDT HOSPITAL LABORATORY Specimen Anatomical Collection Method / Collection Time Recei nancy Time (Source) Location / Volume Laterality Blood Venous blood / Venipuncture / 08/28/2016 10:46 017 Unknown Unknown AM EDT 10:54 AM EDT Alphonso Morton MD LAB BLOOD ORDERABLES Performing Organization Address City/[facility] Phon e Number [address] [address] LABORATORY documented in this encounter Visit Diagnoses Diagnosis Elevated temperature - Primary Fever, unspecified Constipation, unspecified constipation t ype documented in this encounter Care Teams Field Research Assistant Relationship Specialty Start Date End Date Lisa Sotelo MD PCP - General Family Medicine 08/19/16 03/01/18 [address] [place] [address] documented as of this encounter
--- OUTSIDE RECORDS SUMMARY | 2021-12-22 09:58 | XMS_ITS | Encounter Summary ---
:1945 Author Organization [facility] Address [address] [facility], [address] [place] [address] Care Team Providers Name Role Phone Lisa Sotelo MD Primary Care Provider Reason for Referral Diagnostic Imaging (Routine) - Closed Specialty Diagnoses / Procedures Referred By Contact Refer red To Contact Diagnoses Chronic pain of left knee Nawaf Jason MD Procedures X-ray Knee 3 Views Left [address] [place] [address] Referral ID Status Reason Start Date Expiration Date Visits Requ ested Visits Authorized [id number] Closed 06/13/2017 06/13/2018 1 1 iagnostic Imaging (Routine) - Closed Specialty Diagnoses / Procedures Referred By Contact Refer red To Contact Radiology Diagnoses Radiculopathy, lumbar region Nawaf Jason MD Procedures MRI Lumbar Spine without Contrast [address] [place] [address] Referral ID Status Reason Start Date Expiration Date Visits Requ ested Visits Authorized [id number] Closed 06/13/2017 06/13/2018 1 1 Encounter Details Date Type Department Care Team Description 06/13/2017 Consult [facility], Nawaf Jason, Radiculopathy, lumbar region (Primary Dx); IRIS WINSTON It band syndrome, left; [address] Lateral knee pain, left; [place] [address] [place] [address] Chronic pain of left knee [phone] (Wo rk) Social History Tobacco Use Types [...] from the original note were not included. [facility] [place] [facility]: [address] [facility] Spine Center: [address] [facility] Spine Center: [address] [facility] T: [phone] F:[phone] Verid.TRAFFIQ Reason for PM&R Consultation: 1. Radiculopathy, right [...] for further education on the topic : Vigoda cc: Lisa Sotelo MD Dear Lisa Sotelo MD Thank you for referring Molly Rios is a 72 y.o. female to [facility], [facility]. [...] for that has not helped. In the [facility] she had an x-ray done in [...] flavum hypertrophy. ??Bilateral disc protrusions result in sogl-iv-kjeefvon right and mild left neural foraminal narrowing, [...] Visit Family Medicine Kevin Miranda MD [address] [place], [place] [address] (Wo rk) documented as [...] flavum hypertrophy. ??Bilateral disc protrusions result in fnjg-xm-vpjzeeng right and mild left neural foraminal narrowing, [...] diverticulosis. Dictated: 06/22/2017 11:06 AM Report ID: [id number] Report signed in external system at 06/22 11:06 Reported By: Dusty Norwood M.D. (NATALIA) Signed By: Dusty Norwood M.D. (NATALIA) Narrative 06/22/2017 11:06 AM EDT RESPONSIBLE FRUIT PRESERVER: Dusty Norwood M.D. EXAMINATION: MRI LUMBAR SPINE [...] stenosis. ??Bila teral disc protrusions result in fazu-bc-ymznmenm right and mild left neural foraminal narrowing, [...] exiting right L5 nerve root. ??There is qheu-iw-ygptipjk encroachment of the left neural foramina, but without contact of the exiting left L5 nerve root. ??There is no significant narrowing of the spinal canal. Other: Fatty replacement of the paraspin ous musculature is noted at L4-L5 and L5-S1. Pelvic viscera are not evaluated. ??Sigm oid diverticulosis is noted. ??There is trace free pelvic fluid. Procedure Note Dusty Norwood MD - 06/22/2017 RESPONSIBLE FRUIT PRESERVER: Dusty Norwood M.D. EXAMINATION: MRI LUMBAR SPINE [...] stenosis. Bilateral disc pr otrusions result in qcho-my-wpavxcab right and mild left neural foraminal narrowing, [...] exiting right L5 nerve root. There is lekf-lb-ejiakzpw encroachment o f the left neural foramina, [...] flavum hypertrophy. Bilateral disc protrusions result in kaiu-km-ramvjtxx right and mild left neural foraminal narrowing, [...] diverticulosis. Dictated: 06/22/2017 11:06 AM Report ID: [id number] Report signed in external system at 06/22 [...] change. Dictated: 06/20/2017 4:16 PM Report ID: [id number] Report signed in external system at 06/20 16:16 Reported By: Wale Faustin M.D. (TAMICA P) Signed By: Wale Faustin M.D. (ROGP) Narrative 06/20/2017 4:16 PM EDT RESPONSIBLE FRUIT PRESERVER: Wale Faustin M.D. EXAMINATION: XR KNEE 3 [...] might be different from the original. RESPONSIBLE FRUIT PRESERVER: Wale Faustin M.D. EXAMINATION: XR KNEE 3 [...] change. Dictated: 06/20/2017 4:16 PM Report ID: [id number] Report signed in external system at 06/20 [...] unspecified documented in this encounter Care Teams Attendant Coin Operated Laundry Relationship Specialty Start Date End Date Lisa Sotelo MD PCP - General Family Medicine 08/19/16 03/01/18 [address] [place] [address] documented as of this encounter
--- OUTSIDE RECORDS SUMMARY | 2021-12-22 09:58 | XMS_ITS | Encounter Summary ---
:1945 Author Organization [facility] Address [address] [facility], [address] [place] [address] Care Team Providers Name Role Phone Lisa Sotelo MD Primary Care Provider Encounter Details Date Type Department Care Team Description 06/06/2017 Documentation [facility] Lisa Gudino MD [address] [place] [address] [place] [address] [phone] (Wo rk) Social History Tobacco Use Types [...] Visit Family Medicine Kevin Miranda MD [address] [place] [address] (Wo rk) documented as of this encounter Visit Diagnoses Not on filedocumented in this encounter Care Teams Hook Puller Relationship Specialty Start Date End Date Lisa Sotelo MD PCP - General Family Medicine 08/19/16 03/01/18 [address] [place] [address] documented as of this encounter
--- OUTSIDE RECORDS SUMMARY | 2021-12-22 09:58 | XMS_ITS | Encounter Summary ---
:1945 Author Organization [facility] Address [address] [facility], [address] [place] [address] Care Team Providers Name Role Phone Lisa Sotelo MD Primary Care Provider Reason for Visit Reason Comments Follow-up on medication Encounter Details Date Type Department Care Team Description 03/10/2017 Office Visit [facility] actLisa Segundo MD Sleep disorder [address] [place] [address] [place] [address] [phone] (Wo rk) Social History Tobacco Use Types [...] Visit Family Medicine Kevin Miranda MD [address] [place], [place] [address] (Wo rk) documented as of this encounter Visit Diagnoses Diagnosis Sleep disorder Unspecified sleep disturbance documented in this encounter Care Teams Basket Turner Relationship Specialty Start Date End Date Lisa Sotelo MD PCP - General Family Medicine 08/19/16 03/01/[address] [place] [address] documented as of this encounter
--- OUTSIDE RECORDS SUMMARY | 2021-12-22 09:58 | XMS_ITS | Encounter Summary ---
:1945 Author Organization [facility] Address [address] [facility], [address] [place] [address] Care Team Providers Name Role Phone Lisa Sotelo MD Primary Care Provider Encounter Details Date Type Department Care Team Description 12/02/2003 Orders Only [facility] Hieu Trevizo MD [address] [place] [address] Social History Tobacco Use Types Packs/Day Years Used Date Never Assessed Sex Assigned at Date Recorded Female 04/12/2019 2:19 PM EST documented as of this encounter Plan of Treatment Upcoming Encounters Date Type Specialty Care Team Description 04/19/2022 Office Visit Family Medicine Kevin Miranda MD [address] [place] [address] (Wo rk) Scheduled Orders Name Type Priority Associated Diagnoses Order S chedule DEXA Bone Density Central Imaging Routine Or dered: 12/02/2003 documented as of this encounter Visit Diagnoses Not on filedocumented in this encounter Care Teams Conference Services Director Relationship Specialty Start Date End Date Lisa Sotelo MD PCP - General Family Medicine 08/19/16 03/01/[address] [place] [address] documented as of this encounter
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
--- OUTSIDE RECORDS SUMMARY | 2021-12-22 09:58 | XMS_ITS | Encounter Summary ---
:1945 Author Organization [facility] Address [address] [facility], [address] [place] [address] Care Team Providers Name Role Phone Lisa Sotelo MD Primary Care Provider Reason for Referral (Routine) - Closed Specialty Diagnoses / Procedures Referred By Contact Refer red To Contact Diagnoses COPD (chronic obstructive pulmonary disease) ([facility]) Lisa Sotelo MD Procedures Pulmonary function test [address] [place] [address] Referral ID Status Reason Start Date Expiration Date Visits Requ ested Visits Authorized [id number] Closed 08/18/2016 02/14/2017 1 1 Reason for Visit (Routine) - Closed Specialty Diagnoses / Procedures Referred By Contact Refer red To Contact Diagnoses COPD (chronic obstructive pulmonary disease) ([facility]) Lisa Sotelo MD Procedures Pulmonary function test [address] [place] [address] Referral ID Status Reason Start Date Expiration Date Visits Requ ested Visits Authorized [id number] Closed 08/18/2016 02/14/2017 1 1 Encounter Details Date Type Department Care Team Description 11/23/2016 Hospital Encounter [facility] Lisa Monroe MD Function [address] [place] [phone] Social History Tobacco Use Types Packs/Day [...] Visit Family Medicine Kevin Miranda MD [address] [place], [place] [address] (Wo rk) documented as of this encounter Procedures Procedure Name Priority Date/Time Associated Comments Diagnosis FULL PFT WITH Routine 11/23/2016 10:42 COPD (chronic Results f or this BRONCHODILATORS AM EDT obstructive procedure ar e in pulmonary disease) the resul ts ([facility]) section. documented in this encounter Results FULL [...] Organization Address City/State/ZIP Code Phon e Number [facility] [address] [place] [address] documented in this encounter Visit Diagnoses Diagnosis COPD (chronic obstructive pulmonary dise ase) ([facility]) Chronic airway obstruction, not elsewher e classified documented in this encounter Care Teams Mill Hand Relationship Specialty Start Date End Date Lisa Sotelo MD PCP - General Family Medicine 08/19/16 03/01/18 1020 [place] [address] documented as of this encounter
--- OUTSIDE RECORDS SUMMARY | 2021-12-22 09:58 | XMS_ITS | Encounter Summary ---
:1945 Author Organization [facility] Address [address] [facility], [address] [place] [address] Care Team Providers Name Role Phone Lisa Sotelo MD Primary Care Provider Encounter Details Date Type Department Care Team Description 05/23/2017 Scan Document - View [facility] Lsia Sotelo, in Chart Practice [address] [place], [place] [address] [place], [place] [phone] Social History Tobacco Use Types Packs/Day Years [...] Visit Family Medicine Kevin Miranda MD [address] [place] [address] (Wo rk) documented as of this encounter Visit Diagnoses Not on filedocumented in this encounter Care Teams Printed Circuit Board Pcb Designer Relationship Specialty Start Date End Date Lisa Sotelo MD PCP - General Family Medicine 08/19/16 03/01/[address] [place] [address] documented as of this encounter
--- OUTSIDE RECORDS SUMMARY | 2021-12-22 09:58 | XMS_ITS | Encounter Summary ---
:1945 Author Organization [facility] Address [address] [facility], [address] [place] [address] Care Team Providers Name Role Phone Lisa Sotelo MD Primary Care Provider Reason for Referral Diagnostic Imaging (Routine) - Closed Specialty Diagnoses / Procedures Referred By Contact Refer red To Contact Radiology Diagnoses Radiculopathy, lumbar region Nawaf Jason MD Procedures MRI Lumbar Spine without Contrast [address] [place] [address] Referral ID Status Reason Start Date Expiration Date Visits Requ ested Visits Authorized [id number] Closed 06/13/2017 06/13/2018 1 1 Reason for Visit Diagnostic Imaging (Routine) - Closed Specialty Diagnoses / Procedures Referred By Contact Refer red To Contact Radiology Diagnoses Radiculopathy, lumbar region Nawaf Jason MD Procedures MRI Lumbar Spine without Contrast [address] [place] [address] Referral ID Status Reason Start Date Expiration Date Visits Requ ested Visits Authorized [id number] Closed 06/13/2017 06/13/2018 1 1 Encounter Details Date Type Department Care Team Description 06/22/2017 Hospital Encounter [facility] Tolu Jason ed, MRI MD [address] [place] [phone] Social History Tobacco Use Types Packs/Day [...] Visit Family Medicine Kevin Miranda MD [facility] [place], [place] [address] (Wo rk) documented [...] flavum hypertrophy. ??Bilateral disc protrusions result in ejam-ii-xrgqfyjb right and mild left neural foraminal narrowing, [...] diverticulosis. Dictated: 06/22/2017 11:06 AM Report ID: [id number] Report signed in external system at 06/22 11:06 Reported By: Dusty Norwood M.D. (NATALIA) Signed By: Dusty Norwood M.D. (NATALIA) Narrative 06/22/2017 11:06 AM EDT RESPONSIBLE ASSISTANT DISTRICT ATTORNEY: Dusty Norwood M.D. EXAMINATION: MRI LUMBAR SPINE [...] stenosis. ??Bila teral disc protrusions result in dxjc-ng-oednmqlh right and mild left neural foraminal narrowing, [...] exiting right L5 nerve root. ??There is lqsy-kb-ynrsqhxx encroachment of the left neural foramina, but without contact of the exiting left L5 nerve root. ??There is no significant narrowing of the spinal canal. Other: Fatty replacement of the paraspin ous musculature is noted at L4-L5 and L5-S1. Pelvic viscera are not evaluated. ??Sigm oid diverticulosis is noted. ??There is trace free pelvic fluid. Procedure Note Dusty Norwood MD - 06/22/2017 RESPONSIBLE ASSISTANT DISTRICT ATTORNEY: Dusty Norwood M.D. EXAMINATION: MRI LUMBAR SPINE [...] stenosis. Bilateral disc pr otrusions result in ipka-ln-oftsvyju right and mild left neural foraminal narrowing, [...] exiting right L5 nerve root. There is ssdo-rd-hrekigit encroachment o f the left neural foramina, [...] flavum hypertrophy. Bilateral disc protrusions result in heni-at-csoedimy right and mild left neural foraminal narrowing, [...] diverticulosis. Dictated: 06/22/2017 11:06 AM Report ID: [id number] Report signed in external system at 06/22 11:06 Reported By: Dusty Norwood M.D. (ANANTOS) Signed By: Dusyt Norwood M.D. (NATALIA) Nawaf Jason MD [facility] PROCEDURES documented in this encounter Visit Diagnoses Diagnosis Radiculopathy, lumbar region Thoracic or lumbosacral neuritis or radi culitis, unspecified documented in this encounter Care Teams Highway Research Engineer Relationship Specialty Start Date End Date Lisa Sotelo MD PCP - General Family Medicine 08/19/16 03/01/[address] [place] [address] documented as of this encounter
--- OUTSIDE RECORDS SUMMARY | 2021-12-22 09:58 | XMS_ITS | Encounter Summary ---
:1945 Author Organization [facility] Address [address] [facility], [address] [place] [address] Care Team Providers Name Role Phone Laurie Elias PRINCIPAL SYSTEMS ARCHITECT Primary Care Provider Unavailable Encounter Details Date Type Department Care Team Description 04/13/1999 Orders Only [facility] Hieu Trevizo MD [address] [facility] [place] [address] Social History Tobacco Use Types Packs/Day Years Used Date Never Assessed Sex Assigned at Date Recorded Female 04/12/2019 2:19 PM EST documented as of this encounter Plan of Treatment Upcoming Encounters Date Type Specialty Care Team Description 04/19/2022 Office Visit Family Medicine Kevin Miranda MD [address] [place], [place] [address] (Wo rk) Scheduled Orders Name Type Priority Associated Diagnoses Order S chedule DEXA Bone Density Central Imaging Routine Or dered: 04/13/1999 documented as of this encounter Visit Diagnoses Not on filedocumented in this encounter Care Teams Dispensary Attendant Relationship Specialty Start Date End Date Laurie Elias NP PCP - General Family Medicine 03/02/1811/19/19 documented as of this encounter
--- OUTSIDE RECORDS SUMMARY | 2021-12-22 09:58 | XMS_ITS | Encounter Summary ---
:1945 Author Organization [facility] Address [address] [facility], [address] [place] [address] Care Team Providers Name Role Phone Lisa Sotelo MD Primary Care Provider Encounter Details Date Type Department Care Team Description 07/07/2017 Refill [facility] actice Lisa Sotelo MD [facility] [address] [address] [place] [address] [phone] (Wo rk) Social History Tobacco Use Types [...] Visit Family Medicine Kevin Miranda MD [address] [place] [address] (Wo rk) documented as of this encounter Visit Diagnoses Not on filedocumented in this encounter Care Teams Personnel Records Clerk Relationship Specialty Start Date End Date Lisa Sotelo MD PCP - General Family Medicine 08/19/16 03/01/[address] [place] [address] documented as of this encounter
--- OUTSIDE RECORDS SUMMARY | 2021-12-22 09:58 | XMS_ITS | Encounter Summary ---
:1945 Author Organization [facility] Address [address] [facility], [address] [place] [address] Care Team Providers Name Role Phone Lisa Sotelo MD Primary Care Provider Encounter Details Date Type Department Care Team Description 02/01/2017 Orders Only [facility] actice Provider, MD Harsh [address] [place] [address] [phone] Social History Tobacco Use Types Packs/Day Years [...] Visit Family Medicine Kevin Miranda MD [address] [place] [address] (Wo rk) documented as of [...] filedocumented in this encounter Care Teams Lead Refinery Supervisor Relationship Specialty Start Date End Date Lisa Sotelo MD PCP - General Family Medicine 08/19/16 03/01/18 1020 [facility] [place] [address] documented as of this encounter
--- OUTSIDE RECORDS SUMMARY | 2021-12-22 09:58 | XMS_ITS ---
:1945 Author Care Team Providers Name Role Phone DR. ELBA MARIANO Primary Care Provider [phone] DR. ELBA MARIANO Referring Provider [phone] Allergies Code Code System Name Reaction Severity Status Onset Opioids - Morphine Analogues ? ? A ctive ? 64374 RxNorm Percocet ? ? Active ? Medications [...] topical cream Completed ? 1 03/07/2016 Fluvirin [id number] 45 mcg (15 mcg x 3)/0.5 mL [...]
--- OUTSIDE RECORDS SUMMARY | 2021-12-22 09:58 | XMS_ITS | Encounter Summary ---
:1945 Author Organization [facility] Address [address] [facility], [address] [place] [address] Care Team Providers Name Role Phone Lisa Sotelo MD Primary Care Provider Encounter Details Date Type Department Care Team Description 04/14/2017 Office Visit [facility] Lisa Sotelo MD Canceled (Error) Practice [address] [place] [phone] (Wo rk) Social History Tobacco Use Types [...] Visit Family Medicine Kevin Miranda MD [address] [place] [address] (Wo rk) documented as of this encounter Visit Diagnoses Not on filedocumented in this encounter Care Teams Veterinarian Helper Relationship Specialty Start Date End Date Lisa Sotelo MD PCP - General Family Medicine 08/19/16 03/01/[address] [place] [address] documented as of this encounter
--- OUTSIDE RECORDS SUMMARY | 2021-12-22 09:58 | XMS_ITS | Encounter Summary ---
:1945 Author Organization [facility] Address [address] [facility], [address] [place] [address] Care Team Providers Name Role Phone Lisa Sotelo MD Primary Care Provider Reason for Visit Reason Comments Annual Exam Encounter Details Date Type Department Care Team Description 03/17/2017 Office Visit Kaushik Sotelo, Screening for iron deficiency anemia (Primary Dx); Practice MD Lisa Routine adult health maintenance; [facility] [place] [address] [facility]; [place] [address] [place] Screening for diabetes [facility] tu; [phone] Osteopenia, unspecified location; [phone] Other emphysema ([facility]); (Work) Insomnia, unspecified type; [phone] Gastroesophagea l reflux disease without esophagitis (Fax) [...] stress echo, but no results are in [facility]. She has had excellent lipids, with [...] she has used it (Dr. Kelli Hansen [facility]). Doesn't cough a lot other than after [...] going on. Continue corestrengthening. She can see biomathematician to discuss more sophisticated testing, should she [...] Kevin Miranda MD 10[address] [facility] [place] [address] (Wo rk) documented as of [...] 13% high er for people identified as -[place]ican. eGFR NON-AFR. SALVADOREAN 86 > OR = 60 mL/min/1.73m2 [facility] eGFR 100 > OR = 60 mL/min/1.73m2 [facility] Specimen Anatomical Collection Method Collection Time Receive d Time (Source) Location / / Volume Laterality Blood Venous blood / 03/18/2017 10:05 8 Unknown AM EST 10:05 AM EST Narrative [facility] - 03/18/2017 10:35 PM EST FASTING:YES FASTING: YES Resulting Agency Comment Performing Organization Information: ?Site ID: [id number] ?Name: [employer] ?Address: [address] [place] [address], [place] [address] ?Director: Carlin Gutierrez Lisa Sotelo MD LAB BLOOD ORDERABLES Performing Organization Address City/State/ZIP Code Phon e Number [employer] [address] [address] [place] [address] [address] Glucose, random (03/18/2017 10:05 AM [...] Performing Organization Information: ?Site ID: [id number] ?Name: [facility] [employer] ?Address: [address] [place] [phone] ?Director: Carlin Gutierrez Lisa Sotelo MD LAB BLOOD ORDERABLES Performing Organization Address [facility] Phon e Number [employer] [address] [address] [place] [address], [address] CBC (03/18/2017 10:05 AM EST) [...] Performing Organization Information: ?Site ID: [id number] ?Name: [facility] [employer] [facility] ?Address: [address] [place] [phone] ?Director: Carlin Gutierrez Lisa Sotelo MD LAB BLOOD ORDERABLES Performing Organization Address [facility] Phon e Number [employer] [address] [address] [place] [address], [address] documented in this encounter Visit Diagnoses Diagnosis Screening for iron deficiency anemia - P rimary Routine adult health maintenance Bandemia Screening for diabetes mellitus Osteopenia, unspecified location Other emphysema (CMS/HCC) Other emphysema Insomnia, unspecified type Gastroesophageal reflux disease without esophagitis Esophageal reflux documented in this encounter Care Teams Ware Server Relationship Specialty Start Date End Date Lisa Sotelo MD PCP - General Family Medicine 08/19/16 03/01/[address] [place] [address] documented as of this encounter
--- OUTSIDE RECORDS SUMMARY | 2021-12-22 09:58 | XMS_ITS | Encounter Summary ---
:1945 Author Organization [facility] Address [address] [facility], [address] [place] [address] Care Team Providers Name Role Phone Lisa Sotelo MD Primary Care Provider Encounter Details Date Type Department Care Team Description 08/28/2016 [facility] [place] Molly Olivera MD [address] [place] [address], [address] [place] [address] 330 [facility] Ana M Bowen, [place] [address] Social History Tobacco Use Types Packs/Day Years Used Date Former Smoker Sex Assigned at Date Recorded Female 04/12/2019 2:19 PM EST documented as of this encounter Plan of Treatment Upcoming Encounters Date Type Specialty Care Team Description 04/19/2022 Office Visit Family Medicine Kevin Miranda MD [address] [place] [address] (Wo rk) documented as of this encounter Visit Diagnoses Not on filedocumented in this encounter Care Teams Sheriff Officer Relationship Specialty Start Date End Date Lisa Sotelo MD PCP - General Family Medicine 08/19/16 03/01/[address] [place] [address] documented as of this encounter
--- OUTSIDE RECORDS SUMMARY | 2021-12-22 09:58 | XMS_ITS | Encounter Summary ---
:1945 Author Organization [facility] Address [address] [facility], [address] [place] [address] Care Team Providers Name Role Phone Lisa Sotelo MD Primary Care Provider Reason for Referral Rehab (Routine) - Closed Specialty Diagnoses / Procedures Referred By Contact Refer red To Contact Physical Therapy Diagnoses Lumbar facet arthropathy Nawaf Jason MD [address] [place] [address] Referral ID Status Reason Start Date Expiration Date Visits V isits Requested Authorized [id number] Closed Specialty 06/27/2017 06/27/2018 1 1 Services Required Reason for Visit Specialty (Routine) - Closed Specialty Diagnoses / Referred By Contact Referred To Contact Procedures Physical Medicine and Diagnoses MRI FOLLOW-UP Lisa Sotelo MD Mostoufi, Seyed A, Rehabilitation Procedures FOLLOW UP [facility] [place] [place] [address] [address] [place] [address] Fax: Referral ID Status Reason Start Date Expiration Date Visits Requ ested Visits Authorized [id number] Closed 06/06/2017 06/06/2018 3 3 Encounter Details Date Type Department Care Team Description 06/27/2017 Office Visit [facility] Mostoufi, Nawaf A, Radiculop athy, lumbar region (Primary Dx); Physiatry, [facility] Lumbar facet arthropathy ([facility]); [facility] It band syndrome, left; [place] [address] [place], [place] Lateral knee pain, left [phone] Social History Tobacco Use Types Packs/Day Years [...] from the original note were not included. [facility] [facility]: 7[address] [facility] Sp[facility] Center: 92 [facility] Spine Center: 800 [facility] T: [phone] F:[phone] [employer] Patient: Molly Rios : 1945 Date of [...] left Topical treatment Education and counseling : ([employer]) Education: in person education and counseling on [...] of physical therapy is completed. Recent Imagin, [facility] and [facility] Available Films as well as results [...] of the lumbar vertebrae are preserved. - [employer] Team Member: PANKAJ Improvement Analyst: [email or web address] Results for orders placed during the [...] canal stenosis. Bilateral disc protrusions result in ccxz-lb-awyebtfc right l2-3 and mild left neural foraminal [...] foramina and contact of the exiting right Z7duhwz root. There is tjtk-vb-hvtcqsbn encroachment of the left neural foramina, but [...] flavum hypertrophy. Bilateral disc protrusions result in wgof-jr-tzmzzdll right and mild left neural foraminal narrowing, [...] SYNDROME OARASPINAL MUSCLE ATROPHY Pt 8 VISITS [facility] PT, [employer] Standing Status: Future Standing [...] Visit Family Medicine Kevin Miranda MD [address] [place], [place] [address] (Wo rk) Scheduled Referrals Name Type Priority Associated Order Schedule Diagnoses Prescription to Outpatient Routine Lumbar facet 1 Occurrence s Physical Therapy Referral arthropathy starting ([facility]) until 8 documented as of this encounter Visit Diagnoses Diagnosis Radiculopathy, lumbar region - Primary Thoracic or lumbosacral neuritis or radi culitis, unspecified Lumbar facet arthropathy Spondylosis of unspecified site without mention of myelopathy It band syndrome, left Lateral knee pain, left documented in this encounter Care Teams Ui Software Developer Relationship Specialty Start Date End Date Lisa Sotelo MD PCP - General Family Medicine 08/19/16 03/01/[address] [place] [address] documented as of this encounter
--- OUTSIDE RECORDS SUMMARY | 2021-12-22 09:58 | XMS_ITS ---
[...] Rt knee 03/10/2015 MRI, Shoulder [facility] [address] [address] (Work Place) 03/18/2015 Bone Density Study Information not avai lable 04/24/2015 MRI, Shoulder [facility] [place] [address] [place] [address] (Work Place) Results Lab Results [...]
--- OUTSIDE RECORDS SUMMARY | 2021-12-22 09:58 | XMS_ITS | Encounter Summary ---
:1945 Author Organization [facility] Address 330 [facility], [address] [place] [address] Care Team Providers Name Role Phone Lisa Sotelo MD Primary Care Provider Encounter Details Date Type Department Care Team Description 09/21/2016 Office Visit Kaushik [place], Left hip p ain (Primary Practice ANN Krishnamurthy Dx) 10[address] [place] 1020 [place] [address] [place], [place] [phone] Social History Tobacco Use Types Packs/Day Years [...] had surgery with Dr. Cristo Levy at [facility] on 08/24/16, which went well, and she [...] Visit Family Medicine Kevin Miranda MD [address] [place] [address] (Wo rk) documented as of this encounter Visit Diagnoses Diagnosis Left hip pain - Primary Pain in joint, pelvic region and thigh documented in this encounter Care Teams Test And Turn Up Technician Relationship Specialty Start Date End Date Lisa Sotelo MD PCP - General Family Medicine 08/19/16 03/01/18 1020 [place] [address] documented as of this encounter
--- OUTSIDE RECORDS SUMMARY | 2021-12-22 09:58 | XMS_ITS | Encounter Summary ---
:1945 Author Organization [facility] Address [address] [facility], [address] [place] [address] Care Team Providers Name Role Phone Lisa Sotelo MD Primary Care Provider Reason for Referral Diagnostic Imaging (Routine) - Closed Specialty Diagnoses / Procedures Referred By Contact Refer red To Contact Diagnoses Chronic pain of left knee Nawaf Jason MD Procedures X-ray Knee 3 Views Left [address] [place] [address] Referral ID Status Reason Start Date Expiration Date Visits Requ ested Visits Authorized [id number] Closed 06/13/2017 06/13/2018 1 1 Reason for Visit Diagnostic Imaging (Routine) - Closed Specialty Diagnoses / Procedures Referred By Contact Refer red To Contact Diagnoses Chronic pain of left knee Nawaf Jason MD Procedures X-ray Knee 3 Views Left [address] [place] [address] Referral ID Status Reason Start Date Expiration Date Visits Requ ested Visits Authorized [id number] Closed 06/13/2017 06/13/2018 1 1 Encounter Details Date Type Department Care Team Description 06/20/2017 Hospital Encounter [facility] Tolu Jason ed A, X-ray at [address] [facility] [address] [phone] (Wo rk) [address] [phone] Social History Tobacco Use Types Packs/Day Years [...] Visit Family Medicine Kevin Miranda MD [address] [place], [place] [address] (Wo rk) documented as [...] change. Dictated: 06/20/2017 4:16 PM Report ID: [id number] Report signed in external system at 06/20 16:16 Reported By: Wale Faustin M.D. (TAMICA P) Signed By: Wale Faustin M.D. (JACQUELINE) Narrative 06/20/2017 4:16 PM EDT RESPONSIBLE DANCER OR CHOREOGRAPHER: Wale Faustin M.D. EXAMINATION: XR KNEE 3 [...] might be different from the original. RESPONSIBLE DANCER OR CHOREOGRAPHER: Wale Faustin M.D. EXAMINATION: XR KNEE 3 [...] change. Dictated: 06/20/2017 4:16 PM Report ID: [id number] Report signed in external system at 06/20 16:16 Reported By: Wale Faustin M.D. (TAMICA P) Signed By: Wale Faustin M.D. (JACQUELINE) Nawaf Jason MD IMG XR PROCEDURES documented in this encounter Visit Diagnoses Diagnosis Chronic pain of left knee documented in this encounter Care Teams Psychology Clinician Relationship Specialty Start Date End Date Lisa Sotelo MD PCP - General Family Medicine 08/19/16 03/01/18 [address] [place] [address] documented as of this encounter
--- OUTSIDE RECORDS SUMMARY | 2021-12-22 09:58 | XMS_ITS | Encounter Summary ---
:1945 Author Organization [facility] Address 330 [facility], [address] [place] [address] Care Team Providers Name Role Phone Kevin Miranda MD Primary Care Provider Encounter Details Date Type Department Care Team Description 06/13/2017 Procedure [facility] [address] [place] [address] [phone] Social History Tobacco Use Types [...] Visit Family Medicine Kevin Miranda MD [address] [place] [address] (Wo rk) documented as of this encounter Visit Diagnoses Not on filedocumented in this encounter Care Teams Brushing Machine Operator Relationship Specialty Start Date End Date Kevin Miranda MD PCP - General Family Medicine 11/20/[address] [place] [address] documented as of this encounter
--- OUTSIDE RECORDS SUMMARY | 2021-12-22 09:58 | XMS_ITS | Encounter Summary ---
:1945 Author Organization [facility] Address 330 [facility], [address] [place] [address] Care Team Providers Name Role Phone Lisa Sotelo MD Primary Care Provider Encounter Details Date Type Department Care Team Description 11/19/2016 Refill [facility] Pr Princess Doran NP [address] [address] [place] [address] [phone] Social History Tobacco Use Types Packs/Day Years [...] Visit Family Medicine Kevin Miranda MD 1020 [place], [place] [phone] (Wo rk) documented as of this encounter Visit Diagnoses Not on filedocumented in this encounter Care Teams Stop Attacher Relationship Specialty Start Date End Date Lisa Sotelo MD PCP - General Family Medicine 08/19/16 03/01/18 1020 [place] [address] documented as of this encounter
--- OUTSIDE RECORDS SUMMARY | 2021-12-22 09:58 | XMS_ITS | Encounter Summary ---
:1945 Author Organization [facility] Address 330 [facility], [address] [place] [address] Care Team Providers Name Role Phone Lisa Sotelo MD Primary Care Provider Encounter Details Date Type Department Care Team Description 06/17/2017 Scan Document - View [facility] Lisa Sotelo, in Chart Practice [address] [place], [place] [address] [place], [place] [phone] Social History Tobacco Use Types Packs/Day Years [...] Visit Family Medicine Kevin Miranda MD [address] [place] [address] (Wo rk) documented as of this encounter Visit Diagnoses Not on filedocumented in this encounter Care Teams Commissions Coordinator Relationship Specialty Start Date End Date Lisa Sotelo MD PCP - General Family Medicine 08/19/16 03/01/[address] [place] [address] documented as of this encounter
--- OUTSIDE RECORDS SUMMARY | 2021-12-22 09:58 | XMS_ITS ---
:1945 Author Care Team Providers Name Role Phone DR. MARILUZ VELEZ Primary Care Provider [phone] MARILUZ VELEZ Referring Provider [phone] Allergies Code Code System Name Reaction Severity [...] None recorded. ? ? Vitals 02/06/2019 10:45AM OP/ACCESS CONTROL SPECIALIST Height Weight BMI 5 ft 7.5 in 130 lbs 20.1 kg/m2 12/25/2018 01:45PM ACCESS CONTROL SPECIALIST 15 Height Weight BMI 5 ft 7.5 in 128 lbs 19.8 kg/m2
--- OUTSIDE RECORDS SUMMARY | 2021-12-22 09:58 | XMS_ITS | Encounter Summary ---
:1945 Author Organization [facility] Address 330 [facility], [address] [place] [address] Care Team Providers Name Role Phone Lisa Sotelo MD Primary Care Provider Encounter Details Date Type Department Care Team Description 10/11/2016 Scan Document - View [facility] Lisa Sotelo, in Chart Practice [address] [place] [address] [place], [place] [phone] Social History Tobacco Use Types Packs/Day Years Used Date Former Smoker Sex Assigned at Date Recorded Female 04/12/2019 2:19 PM EST documented as of this encounter Plan of Treatment Upcoming Encounters Date Type Specialty Care Team Description 04/19/2022 Office Visit Family Medicine Kevin Miranda MD [address] [place] [address] (Wo rk) documented as of this encounter Visit Diagnoses Not on filedocumented in this encounter Care Teams Deposit Clerk Relationship Specialty Start Date End Date Lisa Sotelo MD PCP - General Family Medicine 08/19/16 03/01/[address] [place] [address] documented as of this encounter
--- OUTSIDE RECORDS SUMMARY | 2021-12-22 09:58 | XMS_ITS | Encounter Summary ---
:1945 Author Organization [facility] Address [address] [facility], [address] [place] [address] Care Team Providers Name Role Phone Lisa Sotelo MD Primary Care Provider Reason for Visit Reason Comments Follow-up Encounter Details Date Type Department Care Team Description 03/31/2017 Office Visit Lisa Newton, Insomni a, unspecified type (Primary Dx); Practice MD Anxiety and depression; [address] [address] [place] Osteopenia, unspecified location; [place] [address] [place] [phone] Social History Tobacco Use Types Packs/Day Years [...] to send back to [facility] WINSTON in [place]. Osteopenia; Her own records say she always [...] note. I again suggested she see a brick baker [facility] to discuss more sophisticated testing. IN perusing old record, Dr. Trevizo had made the same suggestion 11/2015. addendum after patient had left. Perusal of old chart reveals that she was started on Lqruhqyoxke85.5 mg dailyby psychopharmacologist in 2004 for depression. [...] Visit Family Medicine Kevin Miranda MD 10[address] [place], [place] [address] (Wo rk) documented as of this encounter Visit Diagnoses Diagnosis Insomnia, unspecified type - Primary Anxiety and depression Osteopenia, unspecified location Rosacea documented in this encounter Care Teams Electrical Test Technician Relationship Specialty Start Date End Date Lisa Sotelo MD PCP - General Family Medicine 08/19/16 03/01/[address] [place] [address] documented as of this encounter
--- OUTSIDE RECORDS SUMMARY | 2021-12-22 09:58 | XMS_ITS | Encounter Summary ---
:1945 Author Organization [facility] Address 330 [facility], [address] [place] [address] Care Team Providers Name Role Phone Kevin Miranda MD Primary Care Provider Reason for Referral (Routine) - Closed Specialty Diagnoses / Procedures Referred By Contact Refer red To Contact Diagnoses COPD (chronic obstructive pulmonary disease) ([facility]) Lisa Sotelo MD Procedures Pulmonary function test [address] [place] [address] Referral ID Status Reason Start Date Expiration Date Visits Requ ested Visits Authorized [id number] Closed 08/18/2016 02/14/2017 1 1 Encounter Details Date Type Department Care Team Description 08/18/2016 Ancillary Orders [place] Lisa Sotelo, COPD ([facility] Non-Invasive MD obstructive pulmonary Cardiology [address] [place] [address]) ([facility]) [address] [phone] (Work) [phone] Social History Tobacco Use Types Packs/Day Years Used Date Former Smoker Sex Assigned at Date Recorded Female 04/12/2019 2:19 PM EST documented as of this encounter Plan of Treatment Upcoming Encounters Date Type Specialty Care Team Description 04/19/2022 Office Visit Family Medicine Kevin Miranda MD [address] [place] [phone] (Wo rk) documented as of this encounter Results FULL PFT WITH BRONCHODILATORS (11/23/2016 10:42 AM EDT) Specimen (Source) Anatomical Collection Method Collection Time Re ceived Time Location / / Volume Laterality 11/23/2016 9:56 AM EDT [facility] - 12/07/2016 2:27 PM EDT [...] Organization Address City/State/ZIP Code Phon e Number [facility] [address] [place] [address] documented in this encounter Visit Diagnoses Diagnosis COPD (chronic obstructive pulmonary dise ase) (CMS/HCC) Chronic airway obstruction, not elsewher e classified COPD (chronic obstructive pulmonary dise ase) (CMS/HCC) Chronic airway obstruction, not elsewher e classified documented in this encounter Care Teams Manager Linux Relationship Specialty Start Date End Date Kevin Miranda MD PCP - General Family Medicine 11/20/19 1020 [place] [address] documented as of this encounter
--- OUTSIDE RECORDS SUMMARY | 2021-12-22 09:58 | XMS_ITS | Encounter Summary ---
:1945 Author Organization [facility] Address 330 [facility], [address] [place] [address] Care Team Providers Name Role Phone Lisa Sotelo MD Primary Care Provider Reason for Visit Reason Onset Date Comments ANDREY Camb. Appt. 06/13/17 06/03/2017 Encounter Details Date Type Department Care Team Description 06/03/2017 Telephone [employer] [facility], [place] Jason FYI Camb. Appt. IRIS WINSTON 06/13/17 [facility] [address] [place] [address] [phone] (Wo rk) Social History Tobacco Use Types [...] Visit Family Medicine Kevin Miranda MD 1020 [place], [place] [address] (Wo rk) documented as of this encounter Visit Diagnoses Not on filedocumented in this encounter Care Teams Management Information Systems Director Relationship Specialty Start Date End Date Lisa Sotelo MD PCP - General Family Medicine 08/19/16 03/01/[address] [place] [address] documented as of this encounter
--- OUTSIDE RECORDS SUMMARY | 2021-12-22 09:58 | XMS_ITS | Encounter Summary ---
:1945 Author Organization [facility] Address 330 [facility], [address] [place] [address] Care Team Providers Name Role Phone Lisa Sotelo MD Primary Care Provider Encounter Details Date Type Department Care Team Description 09/20/2016 Abstract [facility] trista William, Plantar fasciitis; [address] [place] [address] ANN Krishnamurthy Osteoporosis; [place] [address] [place] [address] Oral candidiasis [phone] [place] [address] (Wo rk) Social History Tobacco Use Types Packs/Day Years Used Date Former Smoker Sex Assigned at Date Recorded Female 04/12/2019 2:19 PM EST documented as of this encounter Plan of Treatment Upcoming Encounters Date Type Specialty Care Team Description 04/19/2022 Office Visit Family Medicine Kevin Miranda MD 10[address] [place], [place] [phone] (Wo rk) documented as of this encounter Visit Diagnoses Diagnosis Plantar fasciitis Plantar fascial fibromatosis Osteoporosis Unspecified osteoporosis Oral candidiasis Candidiasis of mouth documented in this encounter Care Teams Engineering Production Liaison Relationship Specialty Start Date End Date Lisa Sotelo MD PCP - General Family Medicine 08/19/16 03/01/18 1020 [place] [address] documented as of this encounter
--- OUTSIDE RECORDS SUMMARY | 2021-12-22 09:58 | XMS_ITS | Encounter Summary ---
:1945 Author Organization [facility] Address 330 [facility], [address] [place] [address] Care Team Providers Name Role Phone Elba Mariano MD Primary Care Provider Reason for Visit Reason Comments Test Follow-up Encounter Details Date Type Department Care Team Description 12/06/2016 Office Visit Elba Newton, Chronic obstructive pulmonary disease, unspecified COPD type (CMS/HCC) (Primary Dx); Practice MD Sleep disorder; [address] [place] [address] [place] Anxiety; [place] [address] [place] Other emphysema ([facility]) [phone] Social History Tobacco Use Types Packs/Day Years [...] Visit Family Medicine Kevin Miranda MD 10[address] [place], [place] [phone] (Wo rk) documented as of this encounter Visit Diagnoses Diagnosis Chronic obstructive pulmonary disease, u nspecified COPD type ([facility]) - Primary Sleep disorder Unspecified sleep disturbance Anxiety Anxiety state, unspecified Other emphysema ([facility]) Other emphysema documented in this encounter Care Teams Forensic Dna Analyst Relationship Specialty Start Date End Date Elba Mariano MD PCP - General Family Medicine 08/19/16 03/01/18 1020 [place] [address] documented as of this encounter
--- OUTSIDE RECORDS SUMMARY | 2021-12-22 09:58 | XMS_ITS | Encounter Summary ---
:1945 Author Organization [facility] Address 330 [facility], [address] [place] [address] Care Team Providers Name Role Phone Lisa Sotelo MD Primary Care Provider Encounter Details Date Type Department Care Team Description 06/27/2017 Scan Document - View [facility] Lisa Sotelo, in Chart Practice [address] [place], [place] [address] [place], [place] [phone] Social History Tobacco Use Types Packs/Day Years [...] Visit Family Medicine Kevin Miranda MD [address] [place] [phone] (Wo rk) documented as of this encounter Visit Diagnoses Not on filedocumented in this encounter Care Teams Propeller Inspector Relationship Specialty Start Date End Date Lisa Sotelo MD PCP - General Family Medicine 08/19/16 03/01/[address] [place] [address] documented as of this encounter
--- OUTSIDE RECORDS SUMMARY | 2021-12-22 09:58 | XMS_ITS | Encounter Summary ---
:1945 Author Organization [facility] Address 330 [facility], [address] [place] [address] Care Team Providers Name Role Phone Lisa Sotelo MD Primary Care Provider Encounter Details Date Type Department Care Team Description 07/08/2017 Scan Document - View [facility] Lisa Sotelo, in Chart Practice [address] [place], [place] [address] [place], [place] [phone] Social History Tobacco Use Types Packs/Day Years [...] Visit Family Medicine Kevin Miranda MD [address] [place] [phone] (Wo rk) documented as of this encounter Visit Diagnoses Not on filedocumented in this encounter Care Teams Boiler House Mechanic Relationship Specialty Start Date End Date Lisa Sotelo MD PCP - General Family Medicine 08/19/16 03/01/[address] [place] [address] documented as of this encounter
--- OUTSIDE RECORDS SUMMARY | 2021-12-22 09:58 | XMS_ITS | Encounter Summary ---
:1945 Author Organization [facility] Address 330 [facility], [address] [place] [address] Care Team Providers Name Role Phone Kevin Miranda MD Primary Care Provider Reason for Visit Reason Comments Med Refill Encounter Details Date Type Department Care Team Description 03/10/2017 Refill [facility] Pr Lisa Gudino MD [address] [place] [address] [place] [address] [phone] (Wo rk) Social History Tobacco Use Types [...] Visit Family Medicine Kevin Miranda MD [address] [place] [phone] (Wo rk) documented as of this encounter Visit Diagnoses Not on filedocumented in this encounter Care Teams Paving Inspector Relationship Specialty Start Date End Date Kevin Miranda MD PCP - General Family Medicine 11/20/[address] [place] [address] documented as of this encounter
--- OUTSIDE RECORDS SUMMARY | 2021-12-22 09:58 | XMS_ITS | Encounter Summary ---
:1945 Author Organization [facility] Address 330 [facility], [address] [place] [address] Care Team Providers Name Role Phone Lisa Sotelo MD Primary Care Provider Reason for Visit Reason Comments Rash on face Encounter Details Date Type Department Care Team Description 01/17/2017 Office Visit Kaushik William Dermatitis of face Practice ANN Krishnamurthy (Primary Dx) [address] [place] [address] [place] [address] [place], [place] [phone] Social History Tobacco Use Types Packs/Day Years [...] but she has an appointment with her plate put in worker later today and will discuss further with her. No lab work needed at our appointment. Follow up prn. Yessy William NP documented in this encounter Plan of Treatment Upcoming Encounters Date Type Specialty Care Team Description 04/19/2022 Office Visit Family Medicine Kevin Miranda MD [address] [place] [phone] (Wo rk) documented as of this encounter Visit Diagnoses Diagnosis Dermatitis of face - Primary documented in this encounter Care Teams Clothes Shaker Relationship Specialty Start Date End Date Lisa Sotelo MD PCP - General Family Medicine 08/19/16 03/01/18 1020 [place] [address] documented as of this encounter
== END 2021-12-16 09:49 | disposition home or self-care (01) ==
LOC: LBN 09:48
PROVIDERS: PCP Family Medicine; Visit Provider Urology
DX: R31.9 Hematuria, unspecified (principal)
CPT/HCPCS: 87086

== ENCOUNTER → 2021-12-21 13:54 | Outpatient (BNVA) | payer MEDICARE, OTHER, SELFPAY | PROVIDERS: PCP Family Medicine; Referring Provider Family Medicine; Visit Provider Urology | DX: N39.0 Urinary tract infection, site not specified (principal) | CPT/HCPCS: 81003; 99215 ==

== ENCOUNTER 2021-12-21 18:24 | Outpatient (REF) | payer MEDICARE, OTHER, SELFPAY ==
[2021-12-21 18:26] LABS: Abs Immature Grans 0.04 10^3/uL (0.0-0.06); Absolute Basophil Count 0.07 10^3/uL (0.0-0.2); Absolute Eosinophil Count 0.11 10^3/uL (0.0-0.7); Absolute Lymphocyte Count 1.42 10^3/uL (1.2-3.4); Absolute Monocyte Count 1.63 10^3/uL (0.1-0.8); Absolute Neutrophil Count 11.03 10^3/uL (1.2-6.7); Basophils % 0.5; Eosinophils % 0.8; HCT 41.3 % (36.0-46.0); HGB 13.3 g/dL (11.2-15.7); Immature Grans % 0.3; Lymphocytes % 9.9; MCH 29.8 pg (27.0-33.0); MCHC 32.2 % (32.0-36.0); MCV 93 fL (80-95); MPV 10.2 fL (8.0-11.0); Monocytes % 11.4; Neutrophils % 77.1; Platelet Count 331 10^3/uL (130-400); RBC 4.46 10^6/uL (3.93-5.22); RDW 13.9 % (11.7-14.6); RDW-SD 47.8 fL
[2021-12-21 18:56] LABS: Diff Comment Agrees w/ Instrument; RBC Morphology Normal
== END 2021-12-21 18:25 | disposition home or self-care (01) ==
LOC: NCHCN 18:24
PROVIDERS: PCP Family Medicine; Visit Provider Family Medicine
DX: N32.2 Vesical fistula, not elsewhere classified (principal); R10.32 Left lower quadrant pain
CPT/HCPCS: 85025

== ENCOUNTER 2021-12-21 19:51 | Outpatient (REF) | payer MEDICARE, OTHER, SELFPAY | END 2021-12-21 19:52 | disposition home or self-care (01) | LOC: LBN 19:51 | PROVIDERS: PCP Family Medicine; Visit Provider Urology | DX: R31.9 Hematuria, unspecified (principal) | CPT/HCPCS: 87086 ==

== ENCOUNTER → 2021-12-23 14:12 | Outpatient (BNVA) | payer MEDICARE, OTHER, SELFPAY | PROVIDERS: PCP Family Medicine; Referring Provider Family Medicine; Visit Provider Nurse Practitioner Gerontology | DX: R10.9 Unspecified abdominal pain (principal); R50.9 Fever, unspecified | CPT/HCPCS: 99441 ==

== ENCOUNTER → 2021-12-28 15:30 | Outpatient (BNVA) | payer MEDICARE, OTHER, SELFPAY | PROVIDERS: PCP Family Medicine; Visit Provider Urology | DX: N39.0 Urinary tract infection, site not specified (principal); N81.10 Cystocele, unspecified; R39.89 Other symptoms and signs involving the genitourinary system | CPT/HCPCS: 81003; 99213 ==

== ENCOUNTER 2021-12-28 17:04 | Outpatient (REF) | payer MEDICARE, OTHER, SELFPAY | END 2021-12-28 17:05 | disposition home or self-care (01) | LOC: LBN 17:04 | PROVIDERS: PCP Family Medicine; Visit Provider Urology | DX: N39.0 Urinary tract infection, site not specified (principal) | CPT/HCPCS: 87086 ==

== ENCOUNTER 2021-12-31 06:24 | Day surgery (SDC) | payer MEDICARE, OTHER, SELFPAY ==
--- NOTE | 2021-12-30 16:05 | W.PM.DSUDISC ---
Date of service: 12/31/21 Time of Service: 09:11 Discharge Plan Disposition Patient Disposition: HOME Condition: Good Condition: Good Discharge Details Reason For Visit: EGD, colonoscopy and cystoscopy Attending Provider: Jason Clements Primary Care Provider: Estee Diaz Home Meds and New Rx's Prescriptions: New amoxicillin-pot clavulanate 875-125 mg tablet 1 tab PO BID Qty: 28 0RF Rx Instructions: take one tablet by mouth in the morning and one tablet by mouth in the evening Continued estradiol [Vagifem] 10 mcg tablet 10 mcg vaginal DAILY 14 Days Qty: 24 3RF cephalexin 250 mg capsule 250 mg PO QHS Qty: 14 0RF omeprazole 20 mg capsule,delayed release(DR/EC) 20 mg PO DAILY doxepin 10 mg capsule 10 mg PO DAILY PRN cholecalciferol (vitamin D3) 25 mcg (1,000 unit) capsule 25 mcg PO DAILY vitamin B complex Capsule 1 cap PO DAILY turmeric root extract 500 mg capsule 500 mg PO DAILY polyethylene glycol 3350 [Miralax] 17 gram/dose powder 17 g PO DAILY calcium carbonate [Calcium 600] 600 mg calcium (1,500 mg) Tablet 2,000 mg PO DAILY omega-3 fatty acids Capsule 1,250 mg PO DAILY Discontinued bisacodyl [Dulcolax (bisacodyl)] 5 mg tablet,delayed release (DR/EC) 5 mg PO ONCE Qty: 4 0RF Rx Instructions: Take according to provider's instructions for colonoscopy prep. polyethylene glycol 3350 17 gram/dose powder 17 g PO ONCE Qty: 238 0RF Rx Instructions: To be taken as directed by prescriber's office for colonoscopy prep. Discharge Instructions Additional Instructions: 1. If tolerated, consume a soft, low fiber diet for 1-2 days. [address] Do not drive, drink alcohol, operate machinery, make critical decisions, or do activities that require coordination or balance for 24 hours. 3. Because air was put into your colon during the procedure, expelling air from your rectum (passing gas or farting) is normal. 4. You may not have a bowel movement for 1-3 days because of the colonoscopy prep. This is normal. 5. You may experience a sore throat for 24 to 48 hours. You may use throat lozenges or gargle with warm salt water to relieve the discomfort. 6. Because air was put into your stomach during the procedure, you may experience some belching. 7. Go directly to the emergency room if you notice any of the following: Develop chills (warm to touch), or if you have a thermometer and your temperature is above 101 Difficulty breathing or difficultly swallowing Persistent vomiting Severe abdominal pain, other than gas cramps Severe chest pain Black, tarry stools Any bleeding ? exceeding one tablespoon 8. Call your physician if the site where your intravenous was started becomes red, swollen, painful, and warm to touch. 9. Your physician has reviewed your pre-procedure medications. Please continue to take those medications as previously ordered. You will be given specific information/education regarding any changes to your medications before leaving. 10. An inflammatory mass was seen in your colon. I have prescribed Amoxicillin-Clavunlonate in the case that this is inflammation from diverticulitis. Take one pill in the morning and one in the evening for 14 days todal Referrals: Pee Hamilton MD [ [facility] STAFF PHYSICIAN] - (1-2 weeks for biopsy results) Activity:: Activity as Tolerated Diet:: As Tolerated DS: Diagnosis Discharge Diagnosis (1) Bladder mass: Status: Acute Asessment and Plan: Follow up with Dr. Hamilton 1-2 weeks to discuss biopsy results
--- NOTE | 2021-12-30 16:06 | ENDO_ITS ---
Date of service: 12/31/21 Time of Service: 08:27 Endoscopy Report DATE OF PROCEDURE: 12/31/21 PRE-OP DIAGNOSIS: Hiatal hernia, colovesicular fistula POST-OP DIAGNOSIS: other (Hiatal hernia, diverticulosis) PROCEDURE: Upper endoscopy, colonoscopy SURGEON: Jason Clements ANESTHESIA TYPE: General:No Airway ESTIMATED BLOOD LOSS: 0 PATHOLOGY: none sent COMPLICATIONS: None DISPOSITION: same day INDICATIONS: Molly is a 76-year-old woman with severe diverticulitis, and concern for colovesicular fistula. Additionally, she is got a hiatal hernia on her CAT scan, as well as some upper gastrointestinal symptoms including dyspepsia PREP: Miralax/Dulcolax PROCEDURE START TIME: 07:34 PROCEDURE END TIME: 08:15 COLONOSCOPY RETRACTION TIME: 21 FINDINGS: Diverticulosis PROCEDURE DESCRIPTION: After the initiation of monitored anesthetic care, and with the assistance of a bite block, I advanced a standard gastroscope through the mouth past the hypopharynx and into the esophagus.? Under the direct vision of the scope, I advanced down the esophagus into the stomach.? There was a hiatal hernia. I was able to traverse normal-appearing stomach above the diaphragm, and I could pass the diaphragm into the distal stomach without any difficulty. Once I entered the stomach body, I performed a brief inspection, followed by retroflexion towards the gastric cardia.? Again, the hiatal hernia was obvious.? After that, I gently advanced the scope around the incisura angularis and examined the pylorus.? This also appeared normal.? Next, I advanced the scope through the pylorus into the duodenum.? The mucosa was pink and healthy appearing.? There were no abnormalities.? I was able to visualize bile draining into the duodenum through the ampulla Vater. ?Next, I began retracting the endoscope. I then gently desufflated some of the stomach, and withdrew the endoscope into the distal esophagus. The Z-line was normal-appearing, several centimeters above the level of the diaphragm. ?Finally, I withdrew the scope along the length of the esophagus taking great care to examine the entirety of the mucosa.? I did not appreciate any abnormalities. Next, we moved catheter and into the left lateral decubitus position, I began by performing an external anorectal exam.? Perineum and skin were normal, as was the anal verge.? There was no evidence of external hemorrhoids.? Next, I performed a digital rectal exam.? I did not appreciate any abnormal findings.? Next, I advanced a colonoscope into the rectal vault.? I performed retroflexion.? Using insufflation, I then advanced the colonoscope beyond the rectal folds and into the sigmoid colon before advancing towards the cecum.? There was extensive diverticulosis. I was able to pass the scope up through the sigmoid and descending colon taking great care to maintain the true lumen of the colon, with tedious advancement to ensure safety. I did not see any lesions in the area concerning for malignancy. Although the sensitivity of colonoscopy for colovesicular fistula is limited, I did not see any worrisome areas that would support the diagnosis from the colon side. The quality of the prep was excellent.? The scope was noted to be in the cecum by identification of the ile ocecal valve and appendiceal orifice.? I then began withdrawing the colonoscope using repeated irrigation as necessary for full evaluation of the colonic mucosa. ?Once the scope was withdrawn to the level of the rectum, great care was taken to examine portions of the rectal folds.? Finally, the scope was withdrawn.
[2021-12-31 06:49] VITALS: BP 102/68; PULSE 70; RESP 18; TEMP 36.5; O2SAT 100
--- NOTE | 2021-12-31 06:51 | W.PM.HP.N ---
Date of service: 12/31/21 Time of Service: 06:51 Assessment and Plan Assessment and plan (1) UTI (urinary tract infection): Status: Acute Assessment and plan: We will plan a combined procedure with Dr Clements. She will have colonoscopy and gastrocopy to evaluate her bowel. We will also plan cystoscopy and bladder biopsy to evaluate for the presence of a colovesical fistula. (2) Pneumaturia: Status: Acute History of Present Illness History of Present Illness Chief Complaint: Pneumaturia Narrative: This is a 76-year-old woman who has a past history significant for diverticulitis and a diverticular abscess.? She has never required surgery on her bowel. More recently, she has described urinary tract infections which can be associated with pneumaturia and what she describes as feculent material in the urine.? At times, her urine cultures have grown E. coli.? At other times, she only grows gram-positive [place].? She will be undergoing cystoscopy and colonoscopy later this week.? She comes in to provide a urine sample so that we can give more directed preoperative antibiotics. She described lower abdominal pain and a low-grade fever late last week.? Both of those symptoms improved but then she began noticing more particulate matter in the urine.? She is not having any dysuria. 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) Sinusitis (Acute) Insomnia (Acute) Depression (Chronic) Former tobacco use (Acute) Vaginal atrophy (Acute) Cystocele, midline (Acute) Pneumaturia (Acute) Screening for colon cancer (Acute) Medical History Allergic rhinitis Diverticulitis GERD (gastroesophageal reflux disease) Hiatal hernia Surgical History H/O shoulder surgery H/O total hip arthroplasty right History of colonoscopy History of knee surgery Hx of fracture of clavicle repaired w/plate per patient Social History Smoking/Tobacco Use Status: Never Smoking risk assessment performed?: Yes Alcohol Intake: former Drug use: Never Do you feel safe at home: Yes Do you feel safe in your relationship?: Yes History History 2 Para 1 Hx # Term Pregnancies 1 Multiple births Hx # Pregnancies Ectopic pregnancies AB induced Hx Number of Living Children 1 AB spontaneous Meds Allergies and Home Medications Allergies Allergy/AdvReac Type Severity Reaction Status Date / Time hydrocodone Allergy Intermediate Nausea Verified 12/31/21 06:44 Opioids - Morphine Analogues Allergy Nausea Unverified 12/31/21 06:44 Opioids-Meperidine and Allergy Nausea Unverified 12/31/21 06:44 Related oxycodone Allergy Nausea Verified 12/31/21 06:44 Home Medications Medication Instructions Recorded Confirmed Type cholecalciferol (vitamin D3) 25 25 mcg PO DAILY 12/09/21 12/31/21 History mcg (1,000 unit) capsule doxepin 10 mg capsule 10 mg PO DAILY PRN 12/09/21 12/31/21 History estradiol 10 mcg vaginal tablet 10 mcg vaginal DAILY 2 weeks #24 12/09/21 12/31/21 Rx (Vagifem) tabs omeprazole 20 mg capsule,delayed 20 mg PO DAILY 12/09/21 12/31/21 History release polyethylene glycol 3350 17 17 g PO DAILY 12/09/21 12/31/21 History gram/dose oral powder (Miralax) turmeric root extract 500 mg 500 mg PO DAILY 12/09/21 12/31/21 History capsule vitamin B complex 1 cap PO DAILY 12/09/21 12/31/21 History cephalexin 250 mg capsule 250 mg PO QHS #14 caps 12/21/21 12/31/21 Rx calcium carbonate 600 mg calcium 2,000 mg PO DAILY 12/29/21 12/31/21 History (1,500 mg) tablet (Calcium) omega-3 fatty acids 1,250 mg PO DAILY 12/29/21 12/31/21 History Exam Const General: cooperative and anxious Neck Neck: supple Resp Effort & Inspection: normal respiratory effort Auscultation: clear to auscultation bilaterally Cardio Rate: regular rate Rhythm: regular rhythm GI Palpation: soft and no masses Neuro General: patient alert, patient awake and patient oriented x3
[2021-12-31] MEDS: Lactated Ringers 1,000 ML 80 ML IV (07:00)
--- NOTE | 2021-12-31 07:11 | ANES.PREOP_ITS ---
General Info Date of Service Date Performed: 12/31/21 Height: 5 ft 7.5 in Weight: 57.2 kg Body Mass Index (BMI): 19.4 Surgical Procedure: Operation Date: 12/31/21 07:40 Proposed Procedure Side Surgeon p Colonoscopy/Gastroscopy Jason Clements MD s Cystoscopy with possible Bladder Biopsy Pee Hamilton MD Meds Allergies and Home Medications Allergies Allergy/AdvReac Type Severity Reaction Status Date / Time hydrocodone Allergy Intermediate Nausea Verified 12/31/21 06:44 Opioids - Morphine Analogues Allergy Nausea Unverified 12/31/21 06:44 Opioids-Meperidine and Allergy Nausea Unverified 12/31/21 06:44 Related oxycodone Allergy Nausea Verified 12/31/21 06:44 Home Medication Medication Instructions Recorded cholecalciferol (vitamin D3) 25 25 mcg PO DAILY 12/09/21 mcg (1,000 unit) capsule doxepin 10 mg capsule 10 mg PO DAILY PRN 12/09/21 estradiol 10 mcg vaginal tablet 10 mcg vaginal DAILY 2 weeks #24 12/09/21 (Vagifem) tabs omeprazole 20 mg capsule,delayed 20 mg PO DAILY 12/09/21 release polyethylene glycol 3350 17 17 g PO DAILY 12/09/21 gram/dose oral powder (Miralax) turmeric root extract 500 mg 500 mg PO DAILY 12/09/21 capsule vitamin B complex 1 cap PO DAILY 12/09/21 cephalexin 250 mg capsule 250 mg PO QHS #14 caps 12/21/21 calcium carbonate 600 mg calcium 2,000 mg PO DAILY 12/29/21 (1,500 mg) tablet (Calcium) omega-3 fatty acids 1,250 mg PO DAILY 12/29/21 Current Visit Medications: Current Medications Generic Name Dose Route Start Last Admin Trade Name Freq PRN Reason Stop Dose Admin Ringer's Solution 1,000 mls @ 80 mls/hr 12/31/21 06:00 12/31/21 07:00 IV 01/29/22 23:59 80 mls/hr INFUSION PRERNA Administration Cefazolin Sodium/Dextrose 1 gm in 50 mls @ 100 mls/hr 12/31/21 06:00 Ancef Duplex IVPB 12/31/21 16:00 PREOP PRERNA IV Miscellaneous Supplies 1 each 12/31/21 06:00 Iv Access IV 01/29/22 23:59 DIRECTED PRERNA Sodium Chloride 0 ml 12/31/21 06:00 Normal Saline Flush 10 Ml Syr IV 01/29/22 23:59 PRN PRN Sodium Chloride 0 ml 12/31/21 06:00 Normal Saline 10 Ml Vial IJ 01/29/22 23:59 DIRECTED PRN Sterile Water 0 ml 12/31/21 06:00 Water,Injection,Sterile 10 Ml Vial IJ 01/29/22 23:59 DIRECTED PRN PFSH Active Problems Active Problems: Problem Status Onset Code UTI (urinary tract infection) N39.0 Female bladder prolapse N81.10 Atypical chest pain R07.89 Abdominal pain R10.9 Trochanteric bursitis M70.60 Palpitations R00.2 Osteoarthritis M19.90 Osteopenia M85.80 Varicose veins of lower extremities with other complications I83.893 Sinusitis J32.9 Insomnia G47.00 Depression F32.A Former tobacco use Z87.891 Vaginal atrophy N95.2 Cystocele, midline N81.11 Pneumaturia R39.89 Screening for colon cancer Z12.11 Medical History Medical History Allergic rhinitis Diverticulitis GERD (gastroesophageal reflux disease) Hiatal hernia Surgical History Surgical History H/O shoulder surgery H/O total hip arthroplasty right History of colonoscopy History of knee surgery Hx of fracture of clavicle repaired w/plate per patient Tobacco Smoking/Tobacco Use Status: Never Alcohol Alcohol Intake: former Substance Use Substance use: Never Prental History History 2 Para 1 Hx # Term Pregnancies 1 Multiple births Hx # Pregnancies Ectopic pregnancies AB induced Hx Number of Living Children 1 AB spontaneous Vital Signs and Lab Results Vital Signs Most Recent Vital Signs in EMR: Most Recent Vital Signs Temp Pulse Resp BP Pulse Ox 36.5 C 70 18 102/68 100 12/31/21 06:49 12/31/21 06:49 12/31/21 06:49 12/31/21 06:49 12/31/21 06:49 Lab Results Blood Type / Crossmatch: No Data to Display Complete Blood Count: White Blood Count 14.30 10^3/uL (4.4-10.8) H 12/21/21 11:41 Red Blood Count 4.46 10^6/uL (3.93-5.22) 12/21/21 11:41 Hemoglobin 13.3 g/dL (11.2-15.7) 12/21/21 11:41 Hematocrit 41.3 % (36.0-46.0) 12/21/21 11:41 Platelet Count 331 10^3/uL (130-400) 12/21/21 11:41 Complete Metabolic Panel: Sodium 134 mmol/L (136-145) L 12/05/21 16:25 Potassium 4.0 mmol/L (3.5-5.1) 12/05/21 16:25 Chloride 98 mmol/L (98-107) 12/05/21 16:25 Carbon Dioxide 27.2 mmol/L (21.0-32.0) 12/05/21 16:25 BUN 11 mg/dL (7-18) 12/05/21 16:25 Creatinine 0.8 mg/dL (0.55-1.02) 12/05/21 16:25 Est GFR (CKD-EPI 2020) 77.27 (mL/min/1.73m2) 12/05/21 16:25 Calcium 9.4 mg/dL (8.5-10.1) 12/05/21 16:25 Albumin 3.8 g/dL (3.4-5.0) 12/05/21 16:25 Glucose 95 mg/dL (74-106) 12/05/21 16:25 Liver Function Panel: Alanine Aminotransferase (ALT/SGPT) 24 U/L (14-59) 12/05/21 16: 25 Aspartate Amino Transf (AST/SGOT) 24 U/L (15-37) 12/05/21 16:25 Coagulation Panel: No Data to Display Cardiac Panel: No Data to Display Arterial Blood Gas: No Data to Display Venous Blood Gas: No Data to Display Pancreas Panel: No Data to Display Thyroid Panel: No Data to Display Infectious Disease: No Data to Display Blood Cultures: No Data to Display Toxicology Panel: No Data to Display Anesthesia Assessment and Plan Anesthesia History Personal History: No History of Anesthesia Complications Family History: No Family History of Anesthesia Complications Exercise Tolerance Exercise Tolerance: Metabolic Equivalents>4 Pertinent Negatives Pertinent Negatives: No Symptoms of GERD, No Major Cardiovascular Symptoms or Complaints and No Major Pulmonary Symptoms or Complaints Cardiac & Pulmonary Exam Cardiac Exam: Normal S1/S2 Heart Sounds Pulmonary Exam: Clear Bilateral Breath Sounds Implantable Cardiac Device Does patient have a Pacemaker or an ICD?: No Airway Exam Known Difficult Airway: No Mallampati Class: 2 Mouth Opening: Narrow (< 3cm) Thyromental Distance: Greater than 3 cm Neck Range of Motion: Full ROM Neck Circumference: Normal Teeth Condition: Normal Dentition ASA Classification ASA Score: ASA 2 Emergency Case?: No NPO Status NPO Status: NPO Clears >2 hours, Solids >8 hours Anesthesia Plan Resuscitation Status: Full Code Anesthesia Technique: General Anesthesia Airway Planned: Natural Airway Monitors Used: Standard Monitors
[2021-12-31 07:12] VITALS: BMI 19.4
[2021-12-31] MEDS: ceFAZolin 1 GM/50 ML BAG IVPB (08:18)
[2021-12-31] MEDS: Lidocaine 2% Jelly 6 ML SYR (08:36)
--- NOTE | 2021-12-31 08:48 | BLADDER_PTH ---
PATIENT: Molly Rios LOC: [facility] U#:[id number] AGE/SX: 76/F ROOM: RE12/31/[address]: Jason Clements MD : [id number] BED: DIS: 12/31/2021 SPEC #: [id number] RECD: 12/31/21 12:01 STATUS: ASTRID REQ #: [id number] MASOUD: 12/31/21 08:[address]: Jason Clements DEPT: Surgical Specimen RECD BY: Ashley Wick ENTERED: 12/31/21 12:02 SP TYPE: Bladder OTHR DR: Estee Diaz Tissues: 1 - BLADDER BIOPSY Procedures: GROSS AND MICRO LEVEL 5 Comments: [id number]
[2021-12-31 09:05] VITALS: BP 153/75; PULSE 59; RESP 14; TEMP 36; O2SAT 99
--- NOTE | 2021-12-31 09:14 | W.PM.OP ---
Date of service: 12/31/21 Time of Service: 09:15 Operative Note Operative Note DATE OF PROCEDURE: 12/31/21 PRE-OP DIAGNOSIS: Pneumaturia POST-OP DIAGNOSIS: other (Hiatal hernia, diverticulosis) PROCEDURE: Cystoscopy, TUR bladder lesion SURGEON: Pee Hamilton ANESTHESIA TYPE: General:No Airway Refer to Anesthesia Record ESTIMATED BLOOD LOSS: 0 PATHOLOGY: other (bladder lesion) COMPLICATIONS: None Patient was transported to: same day Patient's condition: stable Implants: none Indications: This is a 76-year-old woman who has a past history of diverticulitis and a diverticular abscess. She has never had a colon resection or a percutaneous drainage procedure. More recently, she has been experiencing pneumaturia. She also sees some particulate matter in her urine. Her urine cultures at times have grown E. coli, but at other times have shown multiple bacteria with no true uropathogens. Clinically, we are concerned about the presence of a colovesical fistula. She presents for cystoscopy as well as colonoscopy. Findings: Inflammatory mass toward the left side of the bladder behind the left ureteral orifice Procedure Description: The patient was given preoperative IV antibiotics and brought to the operating room on 12/31/2021. She initially underwent colonoscopy and gastroscopy by Dr. Clements. She was then positioned in the dorsal lithotomy position. Her genitalia was prepped and draped. 2% Xylocaine jelly was instilled into the urethra to act as a local anesthetic. A 22 [employer] rigid cystoscope was passed through the urethra into the bladder. The urethra and bladder were inspected with the 30 degree lens. The right ureteral orifice and left orifice both appeared normal. Behind the left ureteral orifice there was an inflammatory appearing mass of mucosa measuring approximately 2 cm in diameter. I did not see anything concerning for papillary or nodular tumor. The mucosa appeared more consistent with bullous edema. There was a sharp demarcation to normal bladder mucosa throughout the remainder of the bladder. These findings were confirmed on reinspection of the bladder using a 70 degree lens. We then removed the cystoscope and passed a 24 Occitan resectoscope sheath through the urethra into the bladder. Transurethral resection/biopsies of the abnormal bladder mucosa were then taken using bipolar cautery and an [employer] resectoscope. The resected tissue was sent to pathology for permanent section. The base of the resection site and all additional abnormal appearing mucosa was then cauterized using coagulation current. The patient tolerated the procedure with no complications.
--- NOTE | 2021-12-31 10:27 | W.ANESPOSTOP ---
Postoperative Evaluation Date, Time and Location Date Performed: 12/31/21 Time Performed: 10:27 Patient Location: Day Surgery Unit Vital Signs Most Recent Imported Vital Signs: Most Recent Vital Signs Temp Pulse Resp BP Pulse Ox 36 C L 59 L 14 153/75 H 99 12/31/21 09:05 12/31/21 09:05 12/31/21 09:05 12/31/21 09:05 12/31/21 09:05 Pain Score Most Recent Pain Score: Most Recent Pain Score Pain Level 0 12/31/21 09:05 Assessment Mental Status: Awake (Alert & Oriented to Patient Baseline) Airway and Respiratory Function: Patent airway with normal (patient baseline) respiratory exam Cardiovascular Function: Hemodynamically Stable Hydration Status: Adequately Hydrated Nausea & Vomiting: No Nausea or Vomiting Pain: Pt. Denies Any Pain Peripheral Nerve Block: Patient did not receive a nerve block
== END 2021-12-31 10:30 | disposition home or self-care (01) ==
PROVIDERS: Urology; PCP Family Medicine; Visit Provider Surgery
PROC: (CPT 43235; principal; 2021-12-31 07:30)
PROC: 0TBB8ZX Excision of Bladder, Via Natural or Artificial Opening Endoscopic, Diagnostic (ICD-10-PCS; CPT 52204; 2021-12-31 07:30)
DX: R39.89 Other symptoms and signs involving the genitourinary system (principal); N32.89 Other specified disorders of bladder; K44.9 Diaphragmatic hernia without obstruction or gangrene; K57.30 Diverticulosis of large intestine without perforation or abscess without bleeding; R10.13 Epigastric pain
CPT/HCPCS: 52234; 43235; 45378; 88305; 88307; J0690; J1885; J2405; J2704

== ENCOUNTER 2022-01-19 18:30 | Outpatient (REF) | payer MEDICARE, OTHER, SELFPAY ==
[2022-01-19 17:19] LABS: Bilirubin Negative (Negative); Blood Small (Negative); Clarity Clear (Clear); Glucose Negative (Negative); Ketones Negative (Negative); Leukocyte Esterase Small (Negative); Nitrite Negative (Negative); Urobilinogen 0.2 EU/dL (Up TO 0.2); pH 5.5 (5-8)
[2022-01-19 17:27] LABS: Bacteria Few HPF (Negative); C & S Indicated? C&S Done As Ordered; Casts Negative LPF (Negative); Crystals Mod Calcium Oxalate HPF (Negative); Epithelial Cells Few HPF (Negative); Mucus Negative (Negative)
== END 2022-01-19 18:31 | disposition home or self-care (01) ==
LOC: LBN 18:30
PROVIDERS: PCP Family Medicine; Visit Provider Urology
DX: N32.1 Vesicointestinal fistula (principal); N32.89 Other specified disorders of bladder
CPT/HCPCS: 81003; 81015; 87086

== ENCOUNTER → 2022-01-22 14:59 | Outpatient (BNVA) | payer MEDICARE, OTHER, SELFPAY | PROVIDERS: PCP Family Medicine; Referring Provider Family Medicine; Visit Provider Urology | DX: N32.1 Vesicointestinal fistula (principal); R39.89 Other symptoms and signs involving the genitourinary system | CPT/HCPCS: 99214 ==

== ENCOUNTER 2022-03-24 17:38 | Outpatient (REF) | payer MEDICARE, OTHER, SELFPAY ==
[2022-03-24 18:06] LABS: Calculated LDL 98 mg/dL (<100); Cholesterol 226 mg/dL (<200); HDL Cholesterol 119 mg/dL (40-60); Triglyceride 46 mg/dL (<150)
== END 2022-03-24 17:39 | disposition home or self-care (01) ==
LOC: NCHCN 17:38
PROVIDERS: PCP Family Medicine; Visit Provider Family Medicine
DX: Z00.00 Encounter for general adult medical examination without abnormal findings (principal)
CPT/HCPCS: 80061

== ENCOUNTER 2022-07-28 14:36 | Outpatient (CLI) | payer MEDICARE, OTHER, SELFPAY ==
--- NOTE | 2022-07-28 14:30 | DI.RAD_ITS ---
Exam(s) XR HIP LT AP LAT ONLY EXAM: XR HIP LT AP LAT ONLY CLINICAL HISTORY: LEFT HIP PAIN. TECHNIQUE: 2D digital imaging was performed. COMPARISON: No exams were available for comparison FINDINGS: Single view No evidence of fracture nor dislocation. Mild degenerative narrowing of the hip joint space. Howeve r, there also significant marginal osteophytes on both sides of the femoral head. Bone density jacqueline l. No osseous lesions. IMPRESSION: Significant osteoarthritic degenerative changes in the left hip. DATA REPOSITORY: RADIATION DOSE DELIVERED:
--- NOTE | 2022-07-28 15:15 | DI.RAD_ITS ---
Exam(s) XR KNEE LT 3V AP,LAT,ODETTE EXAM: XR KNEE LT 3V AP,LAT,ODETTE CLINICAL HISTORY: left knee pain. TECHNIQUE: 2D digital imaging was performed. COMPARISON: No exams were available for comparison FINDINGS: 3 views No evidence of acute fracture. No obvious joint effusion. There is advanced narrowing of the patellofemoral compartment with [id number] narrowing of the late ral aspect of this compartment evident. Also lateral deviation of the patella. With respect of the medial lateral compartments of the knee, there is minimal narrowing. There is no prominent narrowing of the medial lateral compartments but sub degenerative subarticular cysts are n oted. IMPRESSION: Advanced degenerative changes in the patellofemoral compartment, as described above. No fractures. No obvious joint effusion. DATA REPOSITORY: RADIATION DOSE DELIVERED:
== END 2022-07-28 14:37 | disposition home or self-care (01) ==
PROVIDERS: PCP Family Medicine; Referring Provider Family Medicine; Visit Provider Student in an Organized Health Care Education/Training Program
DX: M70.62 Trochanteric bursitis, left hip; S76.012A Strain of muscle, fascia and tendon of left hip, initial encounter; X58.XXXA Exposure to other specified factors, initial encounter; M17.12 Unilateral primary osteoarthritis, left knee; M76.32 Iliotibial band syndrome, left leg
CPT/HCPCS: 73562; 99203; 99213; 73502

== ENCOUNTER 2022-07-28 19:59 | Emergency (ER) | payer MEDICARE, OTHER, SELFPAY ==
[2022-07-28 20:03] VITALS: BP 131/80; PULSE 87; RESP 16; TEMP 37.1; O2SAT 99
--- NOTE | 2022-07-28 20:23 | ED.GENADUL_ITS ---
Discharge Plan Disposition Patient Disposition: Home Condition: Stable Discharge Details Clinical Impression: Fever Primary Care Provider: Estee Diaz ED Provider: Trent Wong Home Meds and New Rx's Prescriptions: New ciprofloxacin HCl 500 mg tablet 500 mg PO BID Qty: 14 0RF Continued omeprazole 20 mg capsule,delayed release(DR/EC) 20 mg PO DAILY doxepin 10 mg capsule 10 mg PO DAILY PRN cholecalciferol (vitamin D3) 25 mcg (1,000 unit) capsule 25 mcg PO DAILY vitamin B complex Capsule 1 cap PO DAILY turmeric root extract 500 mg capsule 500 mg PO DAILY polyethylene glycol 3350 [Miralax] 17 gram/dose powder 17 g PO DAILY calcium carbonate [Calcium 600] 600 mg calcium (1,500 mg) Tablet 2,000 mg PO DAILY omega-3 fatty acids Capsule 1,250 mg PO DAILY Discharge Instructions Additional Instructions: Your tick panel is still pending, your urine did show evidence of a urinary tract infection follow up with your primary care provider within 1 week you will be contacted if your tick panel is positive if you feel more ill, have difficulty breathing or worsening weakness return to the emergency department Medical Decision Making 77 yo female with no significant pmhx comes in with fever. She states on Tuesday she had diarrhea that resolved but then she developed fever to 100 Tuesday night. Tuesday she had another fever, felt better but today again had a f ever to 101.4 and had fatigue throughout the day so came here. She's had a dry nonproductive cough. She denies headaches, neck stiffness, dyspnea, chest pain, abdominal pain, rashes. She arrives caox4 ambulatory in no distress speaking in full sentences. She appears well. She has normal breath sounds, soft nontender abdomen, no rashes, no neck stiffness or meningismus, no murmurs. She does note she found a tick that was in her house, she is not sure if there's been any on her. Suspect tick illness vs viral illness given her well appearance, will obtain cbc, cmp, procalcitonin and fluvid along with tick panel and reassess. labs with wbc of 16, mild elevation in lfts, denies abdominal pain and has no ruq tenderness on exam. UA suprisingly has wbc's, rbc's and many bacteria, denies dysuria. Given her fever will treat as possible cystitis/pyelo with cipro. Tick panel pending. She feels well and is stable for d/c, advised she will be called if tick panel is positive, also advised to f/u with pcp, return precautions given Differential Diagnosis Differential Diagnosis: tick illness, fluvid Lab Data Lab results reviewed: Yes I reviewed the patient's lab results. HPI General Mode of arrival: ambulatory . Date/Time Provider Initiated Documentation: 07/28/22 20:02 . Limitations to Documentation: no limitations . Information obtained by: patient . History of Present Illness 77 year old F presents to the emergency department with the chief complaint of fever, described as moderate, Patient started experiencing this day(s) (4) and it has been intermittent. No relieving factors improve symptom(s), No exacerbating factors reported . Patient notes no other symptoms.; denies chest pain and shortness of breath. Patient did receive the following treatments prior to arrival, none Related Data Home Medications Medication Instructions Recorded Confirmed cholecalciferol (vitamin D3) 25 25 mcg PO DAILY 12/09/21 07/28/22 mcg (1,000 unit) capsule doxepin 10 mg capsule 10 mg PO DAILY PRN 12/09/21 07/28/22 omeprazole 20 mg capsule,delayed 20 mg PO DAILY 12/09/21 07/28/22 release polyethylene glycol 3350 17 17 g PO DAILY 12/09/21 07/28/22 gram/dose oral powder (Miralax) turmeric root extract 500 mg 500 mg PO DAILY 12/09/21 07/28/22 capsule vitamin B complex 1 cap PO DAILY 12/09/21 07/28/22 calcium carbonate 600 mg calcium 2,000 mg PO DAILY 12/29/21 07/28/22 (1,500 mg) tablet (Calcium) omega-3 fatty acids 1,250 mg PO DAILY 12/29/21 07/28/22 ciprofloxacin HCl 500 mg tablet 500 mg PO BID #14 tabs 07/28/22 Previous Rx's Medication Instructions Recorded ciprofloxacin HCl 500 mg tablet 500 mg PO BID #14 tabs 07/28/22 Allergies Allergy/AdvReac Type Severity Reaction Status Date / Time hydrocodone AdvReac Intermediate Nausea Verified 07/28/22 21:41 Opioids - Morphine Analogues AdvReac Nausea Unverified 07/28/22 21:41 Opioids-Meperidine and AdvReac Nausea Unverified 07/28/22 21:41 Related oxycodone AdvReac Nausea Verified 07/28/22 21:41 General Stated Complaint: Fever DEBBI: 3 Review of Systems All systems reviewed & are unremarkable except as noted in HPI and below Constitutional Constitutional: Reports chills, Reports fatigue and Reports fever(s) Cardiovascular Cardiovascular: Denies chest pain and Denies dyspnea Respiratory Respiratory: Denies dyspnea Gastrointestinal Gastrointestinal: Denies abdominal pain, Denies nausea and Denies vomiting Musculoskeletal Musculoskeletal: Denies joint swelling Integumentary/Breasts Skin/Breast: Denies rash Endocrine Endocrine: Reports fatigue PFSH All Active Problems (Updated 07/28/22 @ 21:19 by Trent Wong MD) Fever (Acute) Patellofemoral arthritis of left knee (Acute) Tear of left gluteus medius tendon (Acute) 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 (Acute) Trochanteric bursitis, left hip (Acute) Left knee pain (Acute) Colovesical fistula (Acute) Bladder mass (Acute) Female bladder prolapse (Acute) Atypical chest pain (Acute) Abdominal pain (Acute) Trochanteric bursitis (Acute) Palpitations (Acute) Osteoarthritis (Chronic) Osteopenia (Acute) Varicose veins of lower extremities with other complications (Acute) Sinusitis (Acute) Insomnia (Acute) Depression (Chronic) Former tobacco use (Acute) Vaginal atrophy (Acute) Cystocele, midline (Acute) Pneumaturia (Acute) Medical History Allergic rhinitis Diverticulitis GERD (gastroesophageal reflux disease) Hiatal hernia Surgical History H/O shoulder surgery H/O total hip arthroplasty right History of colonoscopy History of knee surgery Hx of fracture of clavicle repaired w/plate per patient Social History Smoking/Tobacco Use Status: Never Smoking risk assessment performed?: Yes Alcohol Intake: former Drug use: Never Current gender identity: female Do you feel safe at home: Yes Do you feel safe in your relationship?: Yes History History 2 Para 1 Hx # Term Pregnancies 1 Multiple births Hx # Pregnancies Ectopic pregnancies AB induced Hx Number of Living Children 1 AB spontaneous Exam Const General: no acute distress Orientation: alert HENMT Head: normal to inspection Ears: external ears normal General nose exam: external nose normal Mouth: moist mucous membranes Eyes General: appearance normal, both eyes and all related structures Neck Neck: normal visual inspection Resp Effort & Inspection: normal respiratory effort and able to speak in complete sentences Auscultation: clear to auscultation bilaterally Cardio Jugular venous pressure: no JVD Rate: regular rate Heart Sounds: no murmurs GI Palpation: soft and nontender Skin General skin exam: no rashes or lesions noted Neuro General: patient alert and patient oriented x3 Extrem General: normal to inspection Psych Mental Status: mental status grossly normal Course Vital Signs Vital signs: Vital Signs Temperature 37.1 C 07/28/22 20:03 Pulse 87 07/28/22 20:03 Respiratory Rate 16 07/28/22 20:03 Blood Pressure 131/80 07/28/22 20:03 Pulse Oximetry 99 07/28/22 20:03 Temperature 37.1 C 07/28/22 20:03 Pulse 87 07/28/22 20:03 Respiratory Rate 16 07/28/22 20:03 Respiratory Effort Normal 07/28/22 20:07 Blood Pressure 131/80 07/28/22 20:03 Pulse Oximetry 99 07/28/22 20:03 Oxygen Delivery Method Room Air 07/28/22 20:03 Oxygen Flow Rate 0 07/28/22 20:03 Pain Level 0 07/28/22 20:03
[2022-07-28] MEDS: Normal Saline 1,000 ML 1000 ML IV (20:49)
[2022-07-28] MEDS: Normal Saline Flush 10 ML SYR IVP (20:49)
[2022-07-28 21:04] LABS: Abs Immature Grans 0.07 10^3/uL (0.0-0.06); HCT 39.6 % (36.0-46.0); HGB 13.8 g/dL (11.2-15.7); MCH 31.8 pg (27.0-33.0); MCHC 34.8 % (32.0-36.0); MCV 91 fL (80-95); MPV 9.9 fL (8.0-11.0); Platelet Count 261 10^3/uL (130-400); RBC 4.34 10^6/uL (3.93-5.22); RDW 13.2 % (11.7-14.6); RDW-SD 44.8 fL; WBC 16.15 10^3/uL (4.4-10.8)
[2022-07-28 21:15] LABS: ALT 60 U/L (14-59); AST 34 U/L (15-37); Albumin 3.1 g/dL (3.4-5.0); Alkaline Phosphatase 157 U/L (46-116); Anion Gap 9.9 mmol/L (3-11); BUN 11 mg/dL (7-18); Bilirubin, Total 0.9 mg/dL (0.2-1.0); CO2 25.1 mmol/L (21.0-32.0); CREATININE 0.9 mg/dL (0.55-1.02); Calcium 9.1 mg/dL (8.5-10.1); Chloride 99 mmol/L (98-107); Estimated GFR 66.67 (mL/min/1.73m2); Glucose 153 mg/dL (74-106); Potassium 3.8 mmol/L (3.5-5.1); Sodium 134 mmol/L (136-145); Total Protein 7.5 g/dL (6.4-8.2)
[2022-07-28 21:17] LABS: COVID-19 PCR Negative (Negative); Influenza A PCR Negative (Negative); Influenza B PCR Negative (Negative); RSV PCR Negative (Negative)
[2022-07-28 21:18] LABS: Bilirubin Negative (Negative); Blood Small (Negative); Clarity Clear (Clear); Glucose Negative (Negative); Ketones Negative (Negative); Leukocyte Esterase Moderate (Negative); Nitrite Negative (Negative); Specific Gravity 1.015 (1.005-1.025); pH 5.5 (5-8)
[2022-07-28 21:21] LABS: Source Nasopharynx
[2022-07-28 21:26] LABS: Magnesium 1.9 mg/dL (1.8-2.4); TSH (W/Ref FT4) 2.34 uIU/mL (0.36-3.74)
[2022-07-28 21:30] LABS: Absolute Eosinophil Count 0.48 10^3/uL (0.0-0.7); Absolute Lymphocyte Count 1.45 10^3/uL (1.2-3.4); Absolute Monocyte Count 2.26 10^3/uL (0.1-0.8); Absolute Neutrophil Count 11.95 10^3/uL (1.2-6.7); Bands % 2
[2022-07-28 21:31] LABS: Diff Comment Manual Differential; RBC Morphology Normal
[2022-07-28 21:33] LABS: Procalcitonin 0.4 ng/mL
[2022-07-28 21:35] LABS: Bacteria Moderate HPF (Negative); C & S Indicated? Yes; Casts Negative LPF (Negative); Crystals Negative HPF (Negative); Epithelial Cells Few HPF (Negative); Mucus Negative (Negative); WBC 20-50 HPF (0-5)
[2022-07-28] MEDS: Ciprofloxacin 500 MG TAB PO (21:49)
[2022-07-28 21:53] VITALS: BP 137/72; PULSE 72; RESP 16; TEMP 36.9; O2SAT 95
[2022-07-30 12:13] LABS: Lyme Ab w Rflx to Lyme Confirm Negative (Negative)
[2022-08-01 20:06] LABS: Anaplasma phagocytophilum Negative (Negative); B. miyamotoi PCR Negative (Negative); Babesia divergens/MO-1 Negative (Negative); Babesia duncani Negative (Negative); Babesia microti Negative (Negative); Ehrlichia chaffeensis Negative (Negative); Ehrlichia ewingii/canis Negative (Negative); Ehrlichia muris eauclairensis Negative (Negative)
--- NOTE | 2022-08-02 18:13 | NUR.NOTE ---
Nursing Note: Patient looking for lab results
== END 2022-07-28 21:54 | disposition home or self-care (01) ==
PROVIDERS: Emergency Provider Emergency Medicine; PCP Family Medicine
DX: R50.9 Fever, unspecified (principal); R19.7 Diarrhea, unspecified; R51.9 Headache, unspecified
CPT/HCPCS: 36415; 73562; 80053; 84145; 87077; 87637; 87798; 96360; 99213; 99284; 73502; 81003; 81015; 83735; 84443; 85025; 86618; 87086; 87186

== ENCOUNTER 2022-08-16 01:06 | Outpatient (CLI) | payer MEDICARE, OTHER, SELFPAY ==
--- NOTE | 2022-08-16 07:15 | DI.MRI_ITS ---
Exam(s) MR LOWER JOINT LT WO EXAM: MR LOWER JOINT LT WO CLINICAL HISTORY: EVALUATE FOR GLUTEEUS TEAR, ILIOTIBIAL BAND SYNDROME, BURSITIS, STRAIN TECHNIQUE: Multiplanar multisequence MRI of Pelvis was performed COMPARISON: CR XR HIP LT AP LAT ONLY from 07/28/2022 FINDINGS: Bones: There is no fracture or contusion pattern. No bone marrow edema is seen. There is a right hi p prosthesis. There is degenerative subchondral cyst in the anterior acetabulum. Additional cyst is seen in the posterior inferior acetabulum. Joints: There is spurring at the femoral head and inferior acetabulum. No significant joint effusion . There is a small adjacent fluid collection at the posterior inferior labrum which could represent a small labral cyst or synovial cyst. The SI joints and symphysis pubis are well maintained. Musculotendinous structures: There is fluid around the gluteus medius tendon but no focal tear. Ther e is edema around the gluteus minimus tendon and distal aspect of the muscle. No focal tear is seen. Intrapelvic structures: Sigmoid diverticulosis. Pessary. IMPRESSION: Tendinitis involving gluteus medius and minimus tendons. DATA REPOSITORY:
== END 2022-08-16 01:26 ==
LOC: DI 01:06
PROVIDERS: PCP Family Medicine; Visit Provider Student in an Organized Health Care Education/Training Program
DX: M70.62 Trochanteric bursitis, left hip (principal); M76.32 Iliotibial band syndrome, left leg; S76.012A Strain of muscle, fascia and tendon of left hip, initial encounter; M76.02 Gluteal tendinitis, left hip; X58.XXXA Exposure to other specified factors, initial encounter
CPT/HCPCS: 73721

== ENCOUNTER 2022-09-06 15:53 | Outpatient (REF) | payer MEDICARE, OTHER, SELFPAY ==
[2022-09-06 14:42] LABS: Bilirubin Negative (Negative); Blood Moderate (Negative); Clarity Clear (Clear); Glucose Negative (Negative); Ketones Negative (Negative); Leukocyte Esterase Moderate (Negative); Nitrite Negative (Negative); Specific Gravity 1.015 (1.005-1.025); Urobilinogen 0.2 mg/dL (Up to 0.2); pH 6.5 (5-8)
[2022-09-06 14:50] LABS: Bacteria Rare HPF (Negative); C & S Indicated? Yes; Casts Negative LPF (Negative); Crystals Negative HPF (Negative); Epithelial Cells Few HPF (Negative); Mucus Negative (Negative); WBC 20-50 HPF (0-5)
[2022-09-06 14:52] LABS: Abs Immature Grans 0.01 10^3/uL (0.0-0.06); Absolute Basophil Count 0.11 10^3/uL (0.0-0.2); Absolute Eosinophil Count 0.75 10^3/uL (0.0-0.7); Absolute Lymphocyte Count 2.12 10^3/uL (1.2-3.4); Absolute Monocyte Count 0.79 10^3/uL (0.1-0.8); Absolute Neutrophil Count 5.39 10^3/uL (1.2-6.7); Basophils % 1.2; Eosinophils % 8.2; HCT 43.1 % (36.0-46.0); Immature Grans % 0.1; Lymphocytes % 23.1; MCHC 32.5 % (32.0-36.0); MCV 93 fL (80-95); MPV 9.8 fL (8.0-11.0); Monocytes % 8.6; Neutrophils % 58.8; Platelet Count 283 10^3/uL (130-400); RBC 4.66 10^6/uL (3.93-5.22); RDW 14.1 % (11.7-14.6); RDW-SD 47.8 fL; WBC 9.17 10^3/uL (4.4-10.8)
[2022-09-06 15:08] LABS: ALT 30 U/L (14-59); AST 26 U/L (15-37); Albumin 3.5 g/dL (3.4-5.0); Alkaline Phosphatase 90 U/L (46-116); Bilirubin, Direct 0.1 mg/dL (0.0-0.2); Bilirubin, Total 0.5 mg/dL (0.2-1.0); Total Protein 6.7 g/dL (6.4-8.2)
[2022-09-07 09:47] LABS: Hepatitis C Ab w Rflx HCV PCR Negative (Negative)
== END 2022-09-06 15:54 | disposition home or self-care (01) ==
LOC: NCHCN 15:53
PROVIDERS: PCP Family Medicine; Visit Provider Family Medicine
DX: R79.89 Other specified abnormal findings of blood chemistry (principal); Z87.440 Personal history of urinary (tract) infections
CPT/HCPCS: 80076; 86803; 87077; 81003; 81015; 85025; 87086; 87186

== ENCOUNTER → 2022-09-07 09:15 | Outpatient (BNVA) | payer MEDICARE, OTHER, SELFPAY | PROVIDERS: PCP Family Medicine; Referring Provider Family Medicine; Visit Provider Student in an Organized Health Care Education/Training Program | DX: M76.32 Iliotibial band syndrome, left leg (principal); M67.952 Unspecified disorder of synovium and tendon, left thigh | CPT/HCPCS: 99213 ==

== ENCOUNTER 2022-09-28 10:50 | Outpatient (CLI) | payer MEDICARE, OTHER, SELFPAY ==
--- NOTE | 2022-09-28 10:30 | DI.RAD_ITS ---
Exam(s) XR SHOULDER RT COMPLETE 2+V EXAM: XR SHOULDER RT COMPLETE 2+V CLINICAL HISTORY: right shoulder pain. TECHNIQUE: 2D digital imaging was performed. Two views. COMPARISON: CR CHEST 2 VIEWS PA,LAT from 08/15/2016 CR LEFT SHOULDER COMPLETE from 08/15/2016 FINDINGS: BONES: No acute fracture is present. No bony destructive lesion is seen. Spurring at the undersurfac e of the acromion. Subchondral cysts in the superior humeral head. JOINTS: No dislocation present. No humeral joint space is maintained. There is mild spurring at the glenoid and [id number] spurring at the inferior humeral head. There is a smoothly marginated bony density seen beneath the humeral head which may represent a loose body plate is also a question of an additional loose body in the subcoracoid space. SOFT TISSUE: Normal. IMPRESSION: Degenerative changes and loose bodies. DATA REPOSITORY: RADIATION DOSE DELIVERED:
== END 2022-09-28 10:51 | disposition home or self-care (01) ==
LOC: DIORS 10:50
PROVIDERS: PCP Family Medicine; Referring Provider Family Medicine; Visit Provider Student in an Organized Health Care Education/Training Program
DX: M19.011 Primary osteoarthritis, right shoulder
CPT/HCPCS: 99214; 73030

== ENCOUNTER → 2022-10-06 01:41 | Outpatient (CLI) | payer MEDICARE, OTHER, SELFPAY ==
--- NOTE | 2022-10-06 12:50 | DI.MAMMO_ITS ---
Exam(s) MAMMO SCREENING EXAM: MAMMO SCREENING CLINICAL HISTORY: SCREENING, Z12.39 TECHNIQUE: Bilateral full field digital CC and MLO mammographic images were obtained with 3D tomosyn thesis and utilizing computer aided detection (CAD). COMPARISON: Available for comparison. FINDINGS: Masses/Architectural Distortion: None seen. Microcalcifications: No suspicious pleomorphic-type are seen. Skin Thickening/Nipple Retraction: None. IMPRESSION: 1. No significant interval change with no specific features of malignancy noted. 2. Unless there is more urgent need, screening mammography is recommended, as per [employer] guidelines. BI-RADS Category 1 - Negative Breast Density - Category C - Heterogeneously dense Breast density category C or D implies that the patient has dense breast tissue. Dense breast tissue is very common and is not abnormal but dense breast tissue can make it harder to find cancer on a ma mmogram. Also, dense breast tissue may increase their breast cancer risk. This information about the result of the mammogram report was provided to the patient to raise their awareness. Use this report when you speak with the patient about their risks for breast cancer, which includes their family hist ory. At that time, you may recommend for more screening tests (Ultrasound or MRI) as they might be us eful based on their risk. A negative radiographic report should not delay biopsy if a dominant or clinically suspicious mass is present. Up to ten percent of cancers are not identified on mammography. A negative report may reinforce clinical impression. Adenosis and dense breasts may obscure an underlying neoplasm. False positive reports average 6 to 10%. Patient will receive a letter notifying them of these results.
== END ==
PROVIDERS: PCP Family Medicine; Visit Provider Family Medicine
DX: Z12.31 Encounter for screening mammogram for malignant neoplasm of breast (principal)
CPT/HCPCS: 77063; 77067

== ENCOUNTER → 2022-12-08 10:29 | Outpatient (BNVA) | payer MEDICARE, OTHER, SELFPAY | PROVIDERS: PCP Family Medicine; Visit Provider Student in an Organized Health Care Education/Training Program | DX: M12.811 Other specific arthropathies, not elsewhere classified, right shoulder (principal) | CPT/HCPCS: 99213 ==

== ENCOUNTER 2023-01-28 17:53 | Outpatient (REF) | payer MEDICARE, OTHER, SELFPAY ==
[2023-01-28 15:37] LABS: C Diff PCR Negative (Negative)
[2023-01-29 11:06] LABS: Campylobacter PCR Negative (Negative); Salmonella PCR Negative (Negative); Shiga Toxin PCR Negative (Negative); Shigella/Enteroinvasive Ecoli Negative (Negative)
== END 2023-01-28 17:54 | disposition home or self-care (01) ==
LOC: NCHCN 17:53
PROVIDERS: PCP Family Medicine; Visit Provider Family Medicine
DX: R19.7 Diarrhea, unspecified (principal)
CPT/HCPCS: 87329; 87493; 87505; 83630

== ENCOUNTER → 2023-03-04 00:30 | Outpatient (CLI) | payer MEDICARE, OTHER, SELFPAY ==
--- NOTE | 2023-03-04 14:35 | DI.DEXA_ITS ---
Exam(s) XR DEXA BONE DENSITY W/WO EMIGDIO EXAM: XR DEXA BONE DENSITY W/WO EMIGDIO CLINICAL HISTORY: DISORDER OF BONE DENSITY M85.88 TECHNIQUE: HoloMoodMe Horizon C densitometer analysis of left hip and lumbar spine. Lateral survey im age of the thoracic and lumbar spine. Neither wrist was scanned due to history of fractures. COMPARISON: None FINDINGS: Lateral view of the thoracic and lumbar spine shows no evidence of compression fractures. Degenerati ve disc changes noted. Bone mineral density measurements of the lumbar spine correspond to a total T-score of 0.6, in the n ormal range. Bone mineral density measurements of the left hip correspond to a total T-score of -1.6 . The femora l neck T-score is -2.0, in the osteopenic range.. IMPRESSION: Normal bone mineral density of the lumbar spine. Osteopenia of the left hip.
== END ==
PROVIDERS: PCP Family Medicine; Visit Provider Family Medicine
DX: M85.88 Other specified disorders of bone density and structure, other site (principal)
CPT/HCPCS: 77080

== ENCOUNTER 2023-03-04 15:10 | Outpatient (REF) | payer MEDICARE, OTHER, SELFPAY ==
[2023-03-04 15:40] LABS: Calculated LDL 119 mg/dL (<100); Cholesterol 235 mg/dL (<200); Glucose 82 mg/dL (74-106); HDL Cholesterol 110 mg/dL (40-60); Triglyceride 34 mg/dL (<150)
== END 2023-03-04 15:11 | disposition home or self-care (01) ==
LOC: NCHCN 15:10
PROVIDERS: PCP Family Medicine; Visit Provider Family Medicine
DX: E78.5 Hyperlipidemia, unspecified (principal)
CPT/HCPCS: 80061; 82947

== ENCOUNTER 2023-03-11 11:53 | Outpatient (CLI) | payer MEDICARE, OTHER, SELFPAY ==
--- NOTE | 2023-03-11 11:15 | DI.RAD_ITS ---
Exam(s) XR KNEE RT 4V AP,LAT,ODETTE,PAT EXAM: XR KNEE RT 4V AP,LAT,ODETTE,PAT CLINICAL HISTORY: right knee pain. TECHNIQUE: 2D digital imaging was performed. Three views. COMPARISON: CR XR KNEE LT 3V AP,LAT,ODETTE from 07/28/2022 FINDINGS: BONES: No acute fracture is present. No bony destructive lesion is seen. Mild periarticular spurrin g at the femoral condyles and tibial plateaus. JOINTS: Multiple joint spaces are maintained. Chondrocalcinosis. There is severe narrowing of the l ateral patellofemoral joint with prominent lateral spurring lateral patellar tilt and subluxation.. No joint effusion is seen. SOFT TISSUE: Normal. IMPRESSION: Degenerative changes of the lateral patellofemoral joint. DATA REPOSITORY: RADIATION DOSE DELIVERED:
== END 2023-03-11 11:54 | disposition home or self-care (01) ==
LOC: DIORS 11:53
PROVIDERS: PCP Family Medicine; Referring Provider Family Medicine; Visit Provider Physician Assistant
DX: M76.32 Iliotibial band syndrome, left leg; M17.12 Unilateral primary osteoarthritis, left knee; M17.11 Unilateral primary osteoarthritis, right knee
CPT/HCPCS: 99214; 73564

== ENCOUNTER → 2023-03-21 12:04 | Outpatient (CLI) | payer MEDICARE, OTHER, SELFPAY ==
--- NOTE | 2023-03-21 15:02 | DI.RAD_ITS ---
Exam(s) XR FOOT RT COMPLETE EXAM: XR FOOT RT COMPLETE CLINICAL HISTORY: M79.671 Right foot pain. TECHNIQUE: 2D digital imaging was performed. Three views. COMPARISON: CR XR ANKLE RT COMPLETE from 03/21/2023 FINDINGS: BONES: No acute fracture is present. No bony destructive lesion is seen. Degenerative cyst in navicu lar. chronic appearing bony erosion medial 1st metatarsal head. Small heel spur. Plantar arch is m aintained. JOINTS: No dislocation present. Mild hallux valgus. Degenerative changes at talonavicular and calca lexi cuboid joints with medial subluxation.. Hammertoe deformities. Valgus deviation of the 3rd and 4th toes. SOFT TISSUE: Normal. IMPRESSION: Degenerative changes greatest of the talonavicular and calcaneal cuboid joints. DATA REPOSITORY: RADIATION DOSE DELIVERED:
--- NOTE | 2023-03-21 15:02 | DI.RAD_ITS ---
Exam(s) XR ANKLE RT COMPLETE EXAM: XR ANKLE RT COMPLETE CLINICAL HISTORY: M25.571 Right ankle pain and jnts of right foot. TECHNIQUE: 2D digital imaging was performed. Three views. COMPARISON: CR XR FOOT RT COMPLETE from 03/21/2023 FINDINGS: BONES: No acute fracture is present. No bony destructive lesion is seen. Plantar calcaneal spur. JOINTS: The ankle mortise is normally aligned. The ankle joint is maintained. Minimal spurring at the malleoli. SOFT TISSUE: Normal. IMPRESSION: Mild degenerative changes and small heel spur. DATA REPOSITORY: RADIATION DOSE DELIVERED:
== END ==
PROVIDERS: PCP Family Medicine; Visit Provider Podiatrist
DX: M19.071 Primary osteoarthritis, right ankle and foot
CPT/HCPCS: 73610; 73630

== ENCOUNTER → 2023-03-28 09:31 | Outpatient (BNVA) | payer MEDICARE, OTHER, SELFPAY | PROVIDERS: PCP Family Medicine; Referring Provider Family Medicine; Visit Provider Podiatrist | DX: S93.401A Sprain of unspecified ligament of right ankle, initial encounter; M19.071 Primary osteoarthritis, right ankle and foot; Q66.71 Congenital pes cavus, right foot; X58.XXXA Exposure to other specified factors, initial encounter | CPT/HCPCS: 99214 ==

== ENCOUNTER → 2023-08-16 08:01 | Outpatient (BNVA) | payer MEDICARE, OTHER, SELFPAY | PROVIDERS: PCP Family Medicine; Referring Provider Family Medicine; Visit Provider Podiatrist | DX: L03.032 Cellulitis of left toe (principal); M21.611 Bunion of right foot; M21.612 Bunion of left foot; M20.41 Other hammer toe(s) (acquired), right foot; M20.42 Other hammer toe(s) (acquired), left foot; D36.10 Benign neoplasm of peripheral nerves and autonomic nervous system, unspecified | CPT/HCPCS: 99214 ==

== ENCOUNTER → 2023-08-31 08:31 | Outpatient (BNVA) | payer MEDICARE, OTHER, SELFPAY | PROVIDERS: PCP Family Medicine; Referring Provider Family Medicine; Visit Provider Podiatrist | DX: L03.032 Cellulitis of left toe (principal); M21.611 Bunion of right foot; M21.612 Bunion of left foot; M20.41 Other hammer toe(s) (acquired), right foot; M20.42 Other hammer toe(s) (acquired), left foot; D36.10 Benign neoplasm of peripheral nerves and autonomic nervous system, unspecified | CPT/HCPCS: 99213 ==

== ENCOUNTER 2023-10-12 01:26 | Outpatient (CLI) | payer MEDICARE, OTHER, SELFPAY ==
--- NOTE | 2023-10-12 | DI.MAMMO_ITS ---
Exam(s) MAMMO SCREENING EXAM: MAMMO SCREENING CLINICAL HISTORY: Z12.31 Screening. TECHNIQUE: Bilateral full field digital CC and MLO mammographic images were obtained with 3D tomosyn thesis and utilizing computer aided detection (CAD). COMPARISON: Prior mammograms were reviewed. FINDINGS: Fibroglandular tissue pattern is again noted be moderately dense, this somewhat decreasing the sensit ivity of the mammogram for finding hidden underlying lesions. There are no obvious new spiculated masses nor malignant appearing microcalcification groups. There is no significant architectural distortion nor skin thickening-retraction. IMPRESSION: Dense bilateral fibroglandular tissue. No obvious radiographic evidence of malignancy. BI-RADS Category 1 - Negative Breast Density - Category C - Heterogeneously dense Breast density Category C or D implies that the patient has dense breast tissue. Dense breast tissue can make it harder to find cancer on a mammogram. Dense breast tissue is also associated with an incr eased risk of breast cancer. This information about the result of the mammogram report was provided to the patient to raise their awareness. Use this report when you speak with the patient about their risks for breast cancer, which includes their family history. At that time, you may recommend additional screening tests (Ultrasoun d or MRI) as these tests may add significant information. A negative radiographic report should not delay biopsy if a dominant or clinically suspicious mass is present. Up to ten percent of cancers are not identified on mammography. A negative report may reinforce clinical impression. Adenosis and dense breasts may obscure an underlying neoplasm. False positive reports average 6 to 10%. Patient will receive a letter notifying them of these results.
== END 2023-10-12 01:46 ==
PROVIDERS: PCP Family Medicine; Visit Provider Family Medicine
DX: Z12.31 Encounter for screening mammogram for malignant neoplasm of breast (principal)
CPT/HCPCS: 77063; 77067

== ENCOUNTER → 2024-01-02 10:01 | Outpatient (BNVA) | payer MEDICARE, OTHER, SELFPAY | PROVIDERS: PCP Family Medicine; Referring Provider Family Medicine; Visit Provider Podiatrist | DX: L60.3 Nail dystrophy (principal); M79.674 Pain in right toe(s); M79.675 Pain in left toe(s); I83.893 Varicose veins of bilateral lower extremities with other complications; I73.89 Other specified peripheral vascular diseases | CPT/HCPCS: 11719; 11720 ==

== ENCOUNTER 2024-02-28 10:53 | Emergency (ER) | payer MEDICARE, OTHER, SELFPAY ==
[2024-02-28 11:05] VITALS: BP 151/72; PULSE 53; RESP 16; TEMP 36.2; O2SAT 96
--- NOTE | 2024-02-28 11:43 | DI.RAD_ITS ---
Exam(s) XR KNEE RT 3V AP,LAT,ODETTE EXAM: XR KNEE RT 3V AP,LAT,ODETTE CLINICAL HISTORY: R medial knee pain. TECHNIQUE: 2D digital imaging was performed. Three views. COMPARISON: CR XR KNEE RT 4V AP,LAT,ODETTE,PAT from 03/11/2023 FINDINGS: BONES: No acute fracture is present. No bony destructive lesion is seen. JOINTS: The knee is normally aligned. A joint effusion is seen. There narrowing of the patellofemor al joint space. The femoral tibial joint spaces are maintained. Chondrocalcinosis. SOFT TISSUE: Normal. IMPRESSION: Joint effusion. Severe degenerative changes of the patellofemoral joint. DATA REPOSITORY: RADIATION DOSE DELIVERED:
--- NOTE | 2024-02-28 12:27 | W.ED.GENAD ---
Discharge Plan Disposition Patient Disposition: Home Condition: Stable Discharge Details Clinical Impression: Contusion of right knee Primary Care Provider: Estee Diaz ED Provider: Shar Wallace Home Meds and New Rx's Prescriptions: Continued calcium carbonate [Oyster Shell Calcium] 500 mg calcium (1,250 mg) tablet 500 mg PO DAILY omeprazole 20 mg capsule,delayed release(DR/EC) 20 mg PO DAILY doxepin 10 mg capsule 10 mg PO DAILY PRN cholecalciferol (vitamin D3) 25 mcg (1,000 unit) capsule 25 mcg PO DAILY vitamin B complex Capsule 1 cap PO DAILY turmeric root extract 500 mg capsule 500 mg PO DAILY calcium carbonate [Calcium 600] 600 mg calcium (1,500 mg) Tablet 2,000 mg PO DAILY omega-3 fatty acids Capsule 1,250 mg PO DAILY Discharge Instructions Instructions: Internal Derangement of the Knee, Minor Contusion ED Additional Instructions: You were seen in the emergency department for your contusion of your right knee. You have a small bruise to this area, there is a joint effusion seen on x-ray which can be suspicious for an injury to the ligament such as the MCL which is focal to your area of pain. Please continue to rest, ice, compress and elevate, use the hinged knee brace for support. Take 650 mg of Tylenol every 6 hours, take 400 mg of ibuprofen every 6 hours. Follow-up with PCP referral to orthopedics for pain lasting longer than 2 weeks, please return to the emergency department for any signs of neurovascular compromise distal to the right knee. Referrals: [facility] [Provider Group] Estee Diaz MD [Primary Care Provider] - Discharge Data Discharge Date/Time-TO BE ENTERED AT DEPARTURE: 02/28/24 13:07 HPI General Date/Time Provider Initiated Documentation: 02/28/24 11:09. HPI Narrative: 79 year-old female presents to ED today by POV/ambulating with a chief complaint of R knee pain with onset from a fall on Tuesday, with pain and bruise to medial R knee. Quality described as pain with walking, no radiation to calf swelling/skin changes, medial thigh tenderness, hip pain, headstrike, LOC, numbness/tingling, inability to move the leg. Severity is described as moderate. Palliating factors include nothing specific attempted beyond RICE therapy and OTCs. Provoking factors include walking. Patient not anticoagulated. Related Data Home Medications ?Medication ?Instructions ?Recorded ?Confirmed cholecalciferol (vitamin D3) 25 25 mcg PO DAILY 12/09/21 02/28/24 mcg (1,000 unit) capsule doxepin 10 mg capsule 10 mg PO DAILY PRN 12/09/21 02/28/24 omeprazole 20 mg capsule,delayed 20 mg PO DAILY 12/09/21 02/28/24 release turmeric root extract 500 mg 500 mg PO DAILY 12/09/21 02/28/24 capsule vitamin B complex 1 cap PO DAILY 12/09/21 02/28/24 calcium carbonate (Calcium 600) 2,000 mg PO DAILY 12/29/21 02/28/24 omega-3 fatty acids 1,250 mg PO DAILY 12/29/21 02/28/24 calcium carbonate (Oyster Shell 500 mg PO DAILY 01/30/24 02/28/24 Calcium) Allergies Allergy/AdvReac Type Severity Reaction Status Date / Time hydrocodone AdvReac Intermediate Nausea Verified 02/28/24 11:09 Opioids - Morphine Analogues AdvReac Nausea Unverified 02/28/24 11:09 Opioids-Meperidine and AdvReac Nausea Unverified 02/28/24 11:09 Related oxycodone AdvReac Nausea Verified 02/28/24 11:09 General Stated Complaint: Orthopedic DEBBI: 4 Review of Systems All systems reviewed & are unremarkable except as noted in HPI and below Exam Narrative Exam Narrative: GENERAL APPEARANCE: Well-nourished, non-toxic, awake and alert, atraumatic, no acute distress. SKIN: Warm, pink, dry, intact, without rashes/lesions/ulcerations. HEAD: Normocephalic, atraumatic, normal hair distribution for gender/age. EYES: Normal conjunctiva, no exudates on lids/lashes. ENT: Nares patent, no circumoral cyanosis, no facial swelling NECK: Supple, trachea midline, painless cervical ROM. LUNGS/CHEST: Non-labored respirations, normal A/P diameter, symmetrical expansion, no chest wall deformity HEART (CV/PV): No peripheral edema, no JVD. ABDOMEN: Soft, non-distended, no guarding. MSK: Normal ROM, no swelling/deformity to bilateral UEs or LEs, moving all extremities without weakness, no cyanosis, spine midline without tenderness, normal curvature, ecchymotic area at right medial knee pes anserine/MCL, no ligamentous laxity diffusely to knee, no joint line tenderness, no popliteal fossa tenderness, neurovascular intact distally with no unilateral calf swelling, Homans negative NEURO: Mental Status AAOx4 - alert to person, place, time, events No facial droop, no forehead involvement. Motor: No focal weakness - strength 5/5 in bilateral UEs and LEs, proximal and distal, symmetric. Sensory: sensation intact to light touch globally. Gait normal: patient ambulated without ataxia into ED room. PSYCH: euthymic, cooperative, pleasant, appropriate speech Course Vital Signs Vital signs: Vital Signs Temperature 36.2 C L 02/28/24 11:05 Pulse 53 L 02/28/24 11:05 Respiratory Rate 16 02/28/24 11:05 Blood Pressure 151/72 H 02/28/24 11:05 Pulse Oximetry 96 02/28/24 11:05 Temperature 36.2 C L 02/28/24 11:05 Temperature Source Oral 02/28/24 11:05 Pulse 53 L 02/28/24 11:05 Respiratory Rate 16 02/28/24 11:05 Blood Pressure 151/72 H 02/28/24 11:05 Pulse Oximetry 96 02/28/24 11:05 Oxygen Delivery Method Room Air 02/28/24 11:05 Oxygen Flow Rate 0 02/28/24 11:05 Pain Level 7 02/28/24 11:05 Medical Decision Making This dictation utilizes [id number] dictation software and may contain unedited grammatical errors. 79 year-old female presents to ED today by POV/ambulating with a chief complaint of R knee pain with onset from a fall on Tuesday, with pain and bruise to medial R knee. Quality described as pain with walking, no radiation to calf swelling/skin changes, medial thigh tenderness, hip pain, headstrike, LOC, numbness/tingling, inability to move the leg. Severity is described as moderate. Palliating factors include nothing specific attempted beyond RICE therapy and OTCs. Provoking factors include walking. Patients' medical history: Significant arthritis of bilateral lower extremity joints. 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 Pertinent exam findings / vital signs include ecchymotic area at right medial knee pes anserine/MCL, no ligamentous laxity diffusely to knee, no joint line tenderness, no popliteal fossa tenderness, neurovascular intact distally with no unilateral calf swelling, Homans negative. Differential / pathologies of concern include contusion, internal derangement of knee. Diagnostic studies of: -XR R knee-shows small effusion. Interventions of: -Hinged knee brace provided. ED Course/Assessment/Plan: 79-year-old female presents after a fall this past Tuesday with a small bruise to the medial knee, I question whether she has a partial MCL injury versus tendon injury around the pes anserine, versus simple contusion, I counseled her on following up with orthopedics but continuing RICE therapy and Tylenol and ibuprofen in the meantime, strict return criteria for any signs of neurovascular compromise. Findings not consistent with fracture or neurovascular compromise. Disposition of contusion of right knee. Patient verbalized understanding of the plan and return to ED criteria and engaged in shared decision making. Medical Records Medical records reviewed: Yes I reviewed the patient's medical records. Imaging Data Radiologic Study: Attestation: I personally reviewed and interpreted this imaging study as follows: Imaging: X-Ray Radiologist's impression: EXAM: XR KNEE RT 3V AP,LAT,ODETTE CLINICAL HISTORY: R medial knee pain. TECHNIQUE: 2D digital imaging was performed. Three views. COMPARISON: CR XR KNEE RT 4V AP,LAT,ODETTE,PAT from 03/11/2023 FINDINGS: BONES: No acute fracture is present. No bony destructive lesion is seen. JOINTS: The knee is normally aligned. A joint effusion is seen. There narrowing of the patellofemoral joint space. The femoral tibial joint spaces are maintained. Chondrocalcinosis. SOFT TISSUE: Normal. IMPRESSION: Joint effusion. Severe degenerative changes of the patellofemoral joint. 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) Rotator cuff arthropathy of right shoulder (Acute) Arthritis of right glenohumeral joint (Acute) Tendinopathy of left gluteal region (Acute) Patellofemoral arthritis of left knee (Acute) Tear of left gluteus medius tendon (Acute) 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 (Acute) Trochanteric bursitis, left hip (Acute) Left knee pain (Acute) Colovesical fistula (Acute) Bladder mass (Acute) Female bladder prolapse (Acute) Atypical chest pain (Acute) Abdominal pain (Acute) Trochanteric bursitis (Acute) Palpitations (Acute) Osteoarthritis (Chronic) Osteopenia (Acute) Varicose veins of lower extremities with other complications (Acute) Sinusitis (Acute) Insomnia (Acute) Depression (Chronic) Former tobacco use (Acute) Vaginal atrophy (Acute) Cystocele, midline (Acute) Pneumaturia (Acute) Medical History (Updated 02/28/24 @ 12:29 by MONAE Espinoza) Altered bowel function Allergic rhinitis GERD (gastroesophageal reflux disease) Hiatal hernia Diverticulitis Surgical History H/O total hip arthroplasty right Hx of fracture of clavicle repaired w/plate per patient History of colonoscopy History of knee surgery H/O shoulder surgery Social History Smoking/Tobacco Use Status: Former Tobacco Use Quit Date: 02/14/07 Smoking risk assessment performed?: Yes Alcohol Intake: former Drug use: Never Substance use type: does not use Housing: house Current gender identity: female Do you feel safe at home: Yes Do you feel safe in your relationship?: Yes History History 2 Para 1 Hx # Term Pregnancies 1 Multiple births Hx # Pregnancies Ectopic pregnancies AB induced Hx Number of Living Children 1 AB spontaneous
--- NOTE | 2024-03-12 09:44 | NUR.NOTE ---
Access chart to send provider note and DI report to [facility] at their request for billing purposes. Nursing Note:
== END 2024-02-28 13:07 | disposition home or self-care (01) ==
PROVIDERS: Emergency Provider Physician Assistant; PCP Family Medicine
DX: S80.01XA Contusion of right knee, initial encounter (principal); M25.461 Effusion, right knee; W01.0XXA Fall on same level from slipping, tripping and stumbling without subsequent striking against object, initial encounter
CPT/HCPCS: 73562; 99283

== ENCOUNTER → 2024-03-22 14:32 | Outpatient (BNVA) | payer MEDICARE, OTHER, SELFPAY | PROVIDERS: PCP Family Medicine; Referring Provider Family Medicine | DX: S80.01XA Contusion of right knee, initial encounter (principal); W19.XXXA Unspecified fall, initial encounter | CPT/HCPCS: 99213 ==

== ENCOUNTER → 2024-06-11 11:00 | Outpatient (BNVA) | payer MEDICARE, OTHER, SELFPAY | PROVIDERS: PCP Family Medicine; Visit Provider Podiatrist ==

== ENCOUNTER 2024-06-26 12:13 | Outpatient (REF) | payer MEDICARE, OTHER, SELFPAY ==
[2024-06-26 18:54] LABS: HCT 43.2 % (36.0-46.0); HGB 14.3 g/dL (11.2-15.7); MCH 31.2 pg (27.0-33.0); MCHC 33.1 % (32.0-36.0); MCV 94 fL (80-95); Platelet Count 329 10^3/uL (130-400); RBC 4.59 10^6/uL (3.93-5.22); RDW 13.8 % (11.7-14.6); RDW-SD 47.6 fL
[2024-06-26 19:54] LABS: C Diff PCR Negative (Negative); EPI 027-NAP1-B1 PRESUMPTIVE NEGATIVE
[2024-06-26 20:41] LABS: Hemoglobin A1C 5.5 % (<5.7)
[2024-06-26 22:00] LABS: ALT 26 U/L (14-59); AST 22 U/L (15-37); Albumin 3.6 g/dL (3.4-5.0); Alkaline Phosphatase 101 U/L (46-116); Anion Gap 6.8 mmol/L (3-11); BUN 15 mg/dL (7-18); Bilirubin, Total 0.4 mg/dL (0.2-1.0); CO2 30.2 mmol/L (21.0-32.0); CREATININE 0.7 mg/dL (0.55-1.02); Calcium 9.4 mg/dL (8.5-10.1); Calculated LDL 105 mg/dL (<100); Chloride 103 mmol/L (98-107); Cholesterol 226 mg/dL (<200); Estimated GFR 89.02 (mL/min/1.73m2); Glucose 80 mg/dL (74-106); HDL Cholesterol 107 mg/dL (>or=50); Potassium 4.2 mmol/L (3.5-5.1); Sodium 140 mmol/L (136-145); TSH (W/Ref FT4) 1.58 uIU/mL (0.36-3.74); Total Protein 7.1 g/dL (6.4-8.2); Triglyceride 74 mg/dL (<150)
[2024-06-27 23:37] LABS: Campylobacter PCR Negative (Negative); Salmonella PCR Negative (Negative); Shiga Toxin PCR Negative (Negative); Shigella/Enteroinvasive Ecoli Negative (Negative)
[2024-07-02 12:33] LABS: Calprotectin 332 mcg/g
== END 2024-06-26 12:14 | disposition home or self-care (01) ==
LOC: NCHCN 12:13
PROVIDERS: PCP Family Medicine; Visit Provider Family Medicine
DX: R19.7 Diarrhea, unspecified (principal); Z79.1 Long term (current) use of non-steroidal anti-inflammatories (NSAID)
CPT/HCPCS: 80053; 80061; 85027; 87015; 87269; 87272; 87505; 83036; 83993; 84443

== ENCOUNTER → 2024-07-11 11:01 | Outpatient (BNVA) | payer MEDICARE, OTHER, SELFPAY | PROVIDERS: PCP Family Medicine; Referring Provider Family Medicine; Visit Provider Podiatrist | DX: M20.41 Other hammer toe(s) (acquired), right foot (principal); M20.42 Other hammer toe(s) (acquired), left foot; M79.671 Pain in right foot; M79.672 Pain in left foot | CPT/HCPCS: 99213 ==

== ENCOUNTER → 2024-10-01 13:44 | Outpatient (BNVA) | payer MEDICARE, OTHER, SELFPAY | PROVIDERS: PCP Family Medicine; Referring Provider Family Medicine; Visit Provider Podiatrist | DX: S93.401D Sprain of unspecified ligament of right ankle, subsequent encounter (principal); M79.671 Pain in right foot; M20.41 Other hammer toe(s) (acquired), right foot; M20.42 Other hammer toe(s) (acquired), left foot; X58.XXXD Exposure to other specified factors, subsequent encounter; M21.6X1 Other acquired deformities of right foot; M21.6X2 Other acquired deformities of left foot | CPT/HCPCS: 99213 ==

== ENCOUNTER → 2024-10-08 09:59 | Outpatient (BNVA) | payer MEDICARE, OTHER, SELFPAY | PROVIDERS: PCP Family Medicine; Referring Provider Family Medicine; Visit Provider Podiatrist ==

== ENCOUNTER 2024-10-12 00:35 | Outpatient (CLI) | payer MEDICARE, OTHER, SELFPAY ==
--- NOTE | 2024-10-12 | DI.MAMMO_ITS ---
Exam(s) MAMMO SCREENING EXAM: MAMMO SCREENING CLINICAL HISTORY: SCREENING,Z12.31. TECHNIQUE: Bilateral full field digital CC and MLO mammographic images were obtained with 3D tomosynthesis and utilizing computer aided detection (CAD). COMPARISON: Prior mammograms were reviewed. FINDINGS: There are no new left breast findings. In the right breast on the 3D MLO view there is a well-defined noncalcified nodular density measuring 5 x 4 mm located 2.5 cm in from the nipple above the midline on the MLO view. Further imaging recommended. There are no malignant-appearing microcalcification groups in this region nor elsewhere in either breast. There is no significant architectural distortion nor skin thickening-retraction. IMPRESSION: 1. No radiographic evidence of malignancy in left breast. 2. Well-defined 5 x 4 mm right breast nodule as described above. Compression MLO view and breast ultrasound recommended. BI-RADS Category 0 - Incomplete: Need additional imaging evaluation Breast Density - Category C - The breast are heterogeneously dense, which may obscure small masses. Breast density Category C or D implies that the patient has dense breast tissue. Dense breast tissue can make it harder to find cancer on a mammogram. Dense breast tissue is also associated with an increased risk of breast cancer. This information about the result of the mammogram report was provided to the patient to raise their awareness. Use this report when you speak with the patient about their risks for breast cancer, which includes their family history. At that time, you may recommend additional screening tests (Ultrasound or MRI) as these tests may add significant information. A negative radiographic report should not delay biopsy if a dominant or clinically suspicious mass is present. Up to ten percent of cancers are not identified on mammography. A negative report may reinforce clinical impression. Adenosis and dense breasts may obscure an underlying neoplasm. False positive reports average 6 to 10%. Patient will receive a letter notifying them of these results.
== END 2024-10-12 00:55 ==
LOC: DI 00:35
PROVIDERS: PCP Family Medicine; Visit Provider Family Medicine
DX: Z12.31 Encounter for screening mammogram for malignant neoplasm of breast (principal); R92.333 Mammographic heterogeneous density, bilateral breasts
CPT/HCPCS: 77063; 77067

== ENCOUNTER 2024-10-24 02:34 | Outpatient (CLI) | payer MEDICARE, OTHER, SELFPAY ==
--- NOTE | 2024-10-24 | DI.MAMMO_ITS ---
Exam(s) MG MAMMO SCREEN CALL BACK UNI US BREAST RT LIMITED EXAM: MG MAMMO SCREEN CALL BACK UNI CLINICAL HISTORY: 5X4 MM RT BREAST NODULE R92.8 ABNL MAMMO. TECHNIQUE: Mediolateral oblique spot compression digital Mammography views of the rightbreast with Tomosynthesis and right breast ultrasound. COMPARISON: 2017 through recent exam of 12 October 2024 FINDINGS: Mammography/Tomosynthesis: Masses: None seen. Architectural Distortion: None seen. Microcalcifictions: No suspicious pleomorphic-type are seen. Skin Thickening/Nipple Retraction: None. Right breast US: Echotexture: Normal appearance of the glandular tissue. Shadowing: No suspicious foci. Cyst: None. Solid lesions: None seen. Ductal dilation: None. IMPRESSION: 1. No evidence of malignancy is noted. 2. Unless there is more urgent need, follow-up screening mammography is recommended, as per [employer] guidelines. 3. The findings were discussed with the patient on the date of the examination. BI-RADS Category 1 - Negative Breast Density - Category C - The breast are heterogeneously dense, which may obscure small masses. Breast density Category C or D implies that the patient has dense breast tissue. Dense breast tissue can make it harder to find cancer on a mammogram. Dense breast tissue is also associated with an increased risk of breast cancer. This information about the result of the mammogram report was provided to the patient to raise their awareness. Use this report when you speak with the patient about their risks for breast cancer, which includes their family history. At that time, you may recommend additional screening tests (Ultrasound or MRI) as these tests may add significant information. A negative radiographic report should not delay biopsy if a dominant or clinically suspicious mass is present. Up to ten percent of cancers are not identified on mammography. A negative report may reinforce clinical impression. Adenosis and dense breasts may obscure an underlying neoplasm. False positive reports average 6 to 10%. Patient will receive a letter notifying them of these results.
== END 2024-10-24 02:54 ==
LOC: DI 02:34
PROVIDERS: PCP Family Medicine; Visit Provider Family Medicine
DX: Z12.31 Encounter for screening mammogram for malignant neoplasm of breast (principal); R92.8 Other abnormal and inconclusive findings on diagnostic imaging of breast
CPT/HCPCS: 76642; 77063; 77067

== ENCOUNTER 2024-12-03 14:38 | Outpatient (CLI) | payer MEDICARE, OTHER, SELFPAY ==
[2024-12-03 15:43] LABS: Abs Immature Grans 0.02 10^3/uL (0.0-0.06); HCT 43.1 % (36.0-46.0); HGB 14.7 g/dL (11.2-15.7); Immature Grans % 0.2 %; MCH 32.0 pg (27.0-33.0); MCHC 34.1 % (32.0-36.0); MCV 94 fL (80-95); MPV 9.3 fL (8.0-11.0); Platelet Count 307 10^3/uL (130-400); RBC 4.59 10^6/uL (3.93-5.22); RDW 13.5 % (11.7-14.6); RDW-SD 47.0 fL; WBC 9.64 10^3/uL (4.4-10.8)
== END 2024-12-03 14:39 | disposition home or self-care (01) ==
LOC: LBO 14:44
PROVIDERS: PCP Family Medicine; Visit Provider Family Medicine
DX: M25.511 Pain in right shoulder (principal)
CPT/HCPCS: 36415; 85025

== ENCOUNTER → 2024-12-24 11:17 | Outpatient (BNVA) | payer MEDICARE, OTHER, SELFPAY | PROVIDERS: PCP Family Medicine; Referring Provider Family Medicine; Visit Provider Podiatrist | DX: M25.571 Pain in right ankle and joints of right foot (principal); M19.071 Primary osteoarthritis, right ankle and foot | CPT/HCPCS: 99214 ==

== ENCOUNTER 2025-01-07 12:01 | Emergency (ER) | payer MEDICARE, OTHER, SELFPAY ==
[2025-01-07 12:03] VITALS: BP 133/87; PULSE 77; RESP 18; TEMP 36.6; O2SAT 95
--- NOTE | 2025-01-07 12:15 | DI.RAD_ITS ---
Exam(s) XR KNEE RT 4V AP,LAT,ODETTE,PAT EXAM: XR KNEE RT 4V AP,LAT,ODETTE,PAT CLINICAL HISTORY: fall; R knee pain. TECHNIQUE: 2D digital imaging was performed of the right knee. Four views obtained. Merchant, AP, lateral and PA tunnel views were obtained. COMPARISON: CR XR KNEE RT 3V AP,LAT,ODETTE from 02/28/2024 FINDINGS: BONES: There is an acute nondisplaced longitudinal fracture involving the lateral aspect of the patella. No bony destructive lesion is seen. JOINTS: There is chondrocalcinosis in both the medial lateral femoral tibial joints. There is a joint effusion present. There osteophytes in all 3 joint compartments. SOFT TISSUE: Normal. IMPRESSION: Acute nondisplaced longitudinally oriented fracture involving the lateral aspect of the patella. DATA REPOSITORY: RADIATION DOSE DELIVERED:
--- NOTE | 2025-01-07 13:22 | W.ED.GENAD ---
Discharge Plan Disposition Patient Disposition: Home Condition: Stable Discharge Details Clinical Impression: Fracture of right patella Primary Care Provider: Mitra Sims ED Provider: Shar Wallace Home Meds and New Rx's Prescriptions: No Action doxepin 10 mg capsule 10 mg PO DAILY PRN cholecalciferol (vitamin D3) 25 mcg (1,000 unit) capsule 25 mcg PO DAILY vitamin B complex Capsule 1 cap PO DAILY turmeric root extract 500 mg capsule 500 mg PO DAILY calcium carbonate [Calcium 600] 600 mg calcium (1,500 mg) Tablet 2,000 mg PO DAILY omega-3 fatty acids Capsule 1,250 mg PO DAILY Discharge Instructions Instructions: Patella Fracture ED Additional Instructions: You were seen in the emergency department for the fracture of your right patella, please remain in the knee immobilizer and use crutches with toe tapping/partial weightbearing as tolerated, if having pain go to nonweightbearing. I have placed on orthopedics follow-up list, you should hear from their office to schedule you for follow-up for your fracture care, until then please continue to rest, ice, compress and elevate often, please use therapeutic dosing of Tylenol (acetamenophen) & Advil (ibuprofen) in an alternating fashion as follows: Take 1000mg of Tylenol every 8 hours without missing doses- that is 3 times per day. [place] in between the Tylenol dosings, take 400-600mg of Advil also on a 6 hour schedule, that is also 4 times per day. The daily maximum dosing of Tylenol is 3000mg for those over 65, and the daily maximum dosing of Advil is 2400mg. This is safe to do for weeks. Please note that some common cold medications & prescription pain medications may contain acetamenophen and you need to read OTC drug labels and factor that in to maximum daily dosings. Please return for any signs of neurovascular compromise below the right knee Stand Alone Forms: Portal Information Referrals: [facility] [Provider Group] Mitra Sims MD [Primary Care Provider, Medicine] Discharge Data Discharge Date/Time-TO BE ENTERED AT DEPARTURE: 01/07/25 16:18 HPI General Date/Time Provider Initiated Documentation: 01/07/25 12:13. HPI Narrative: 79 year-old female presents to ED today by POV/ambulating with a chief complaint of fall at home tuesday afternoon- slammed her knee on wood floor, got better for one day, now having worse pain today. Quality described as R knee swelling, mostly on lateral anterior aspect, no radiation to numbness/skin changes distally, redness, open lesion/wound, bruising, medial thigh pain, hip pain. Severity is described as moderate to severe. Palliating factors include iced it aggressively and took OTC meds yesterday with good relief. Provoking factors include worse with normal activity today. Patient not anticoagulated. Related Data Home Medications ?Medication ?Instructions ?Recorded ?Confirmed cholecalciferol (vitamin D3) 25 25 mcg PO DAILY 12/09/21 01/07/25 mcg (1,000 unit) capsule doxepin 10 mg capsule 10 mg PO DAILY PRN 12/09/21 01/07/25 turmeric root extract 500 mg 500 mg PO DAILY 12/09/21 01/07/25 capsule vitamin B complex 1 cap PO DAILY 12/09/21 01/07/25 calcium carbonate (Calcium 600) 2,000 mg PO DAILY 12/29/21 01/07/25 omega-3 fatty acids 1,250 mg PO DAILY 12/29/21 01/07/25 Allergies Allergy/AdvReac Type Severity Reaction Status Date / Time hydrocodone AdvReac Intermediate Nausea Verified 01/07/25 12:07 Opioids - Morphine Analogues AdvReac Nausea Unverified 01/07/25 12:07 Opioids-Meperidine and AdvReac Nausea Unverified 01/07/25 12:07 Related oxycodone AdvReac Nausea Verified 01/07/25 12:07 General Stated Complaint: Orthopedic DEBBI: 4 Review of Systems All systems reviewed & are unremarkable except as noted in HPI and below Exam Narrative Exam Narrative: GENERAL APPEARANCE: Well-nourished, non-toxic, awake and alert, atraumatic, mild acute distress. SKIN: Warm, pink, dry, intact, without rashes/lesions/ulcerations. HEAD: Normocephalic, atraumatic, normal hair distribution for gender/age. EYES: Normal conjunctiva, no exudates on lids/lashes. ENT: Nares patent, no circumoral cyanosis, no facial swelling NECK: Supple, trachea midline, painless cervical ROM. LUNGS/CHEST: Non-labored respirations, normal A/P diameter, symmetrical expansion, no chest wall deformity HEART (CV/PV): No peripheral edema, no JVD. ABDOMEN: Soft, non-distended, no guarding. MSK: No cyanosis, spine midline without tenderness, normal curvature R KNEE: diffuse lateral anterior knee tenderness without overt crepitus, no ecchymosis, no ligamentous laxity, limited range of motion due to pain, no skin changes distal, neurovascular intact distal NEURO: Mental Status AAOx4 - alert to person, place, time, events No facial droop, no forehead involvement. Motor: No focal weakness - strength 5/5 in bilateral UEs and LEs, proximal and distal, symmetric. Sensory: sensation intact to light touch globally. Gait NT. PSYCH: euthymic, cooperative, pleasant, appropriate speech Course Vital Signs Vital signs: Vital Signs Temperature 36.6 C 01/07/25 12:03 Pulse 77 01/07/25 12:03 Respiratory Rate 18 01/07/25 12:03 Blood Pressure 133/87 01/07/25 12:03 Pulse Oximetry 95 01/07/25 12:03 Temperature 36.6 C 01/07/25 12:03 Pulse 77 01/07/25 12:03 Respiratory Rate 18 01/07/25 12:03 Blood Pressure 133/87 01/07/25 12:03 Pulse Oximetry 95 01/07/25 12:03 Oxygen Delivery Method Room Air 01/07/25 12:03 Oxygen Flow Rate 0 01/07/25 12:03 Pain Level 5 01/07/25 12:47 Medical Decision Making This dictation utilizes [id number] dictation software and may contain unedited grammatical errors. 79 year-old female presents to ED today by POV/ambulating with a chief complaint of fall at home tuesday afternoon- slammed her knee on wood floor, got better for one day, now having worse pain today. Quality described as R knee swelling, mostly on lateral anterior aspect, no radiation to numbness/skin changes distally, redness, open lesion/wound, bruising, medial thigh pain, hip pain. Severity is described as moderate to severe. Palliating factors include iced it aggressively and took OTC meds yesterday with good relief. Provoking factors include worse with normal activity today. Patients' medical history: GERD, diverticulitis, various orthopedic injuries, bladder mass, osteopenia. Family and social history: Noncontributory. Pertinent exam findings / vital signs include diffuse lateral anterior knee tenderness without overt crepitus, no ecchymosis, no ligamentous laxity, limited range of motion due to pain, no skin changes distal, neurovascular intact distal. Differential / pathologies of concern include fracture, internal knee injury, strain, contusion. Diagnostic studies of: -XR R knee 4 view-shows nondisplaced longitudinally oriented fracture through the patella. Interventions of: -Knee immobilizer and crutches with recommendations to perform RICE therapy and therapy dosing of Tylenol and placed on orthopedic follow-up list. ED Course/Assessment/Plan: 79-year-old female presents with mechanical fall at home on Tuesday with direct impact to right knee, progressively treated it with rest and ice yesterday and felt better but she has been off on it today and has increased pain, no significant lateral anterior swelling to the right knee and a nondisplaced fracture of the right patella, I stressed staying in the knee immobilizer, only toe tapping for balance as needed with crutches otherwise as little weightbearing as possible and significant time spent icing and elevating as well as taking Tylenol and ibuprofen and following up with orthopedic referral to [facility] orthopedics for further management, strict return criteria for any neurovascular compromise. Findings not consistent with neurovascular compromise, displaced fracture. Disposition of Fracture of Right Patella. Patient verbalized understanding of the plan and return to ED criteria and engaged in shared decision making. Medical Records Medical records reviewed: Yes I reviewed the patient's medical records. Imaging Data Radiologic Study: Attestation: I personally reviewed and interpreted this imaging study as follows: Imaging: X-Ray Radiologist's impression: EXAM: XR KNEE RT 4V AP,LAT,ODETTE,PAT CLINICAL HISTORY: fall; R knee pain. TECHNIQUE: 2D digital imaging was performed of the right knee. Four views obtained. Merchant, AP, lateral and PA tunnel views were obtained. COMPARISON: CR XR KNEE RT 3V AP,LAT,ODETTE from 02/28/2024 FINDINGS: BONES: There is an acute nondisplaced longitudinal fracture involving the lateral aspect of the patella. No bony destructive lesion is seen. JOINTS: There is chondrocalcinosis in both the medial lateral femoral tibial joints. There is a joint effusion present. There osteophytes in all 3 joint compartments. SOFT TISSUE: Normal. IMPRESSION: Acute nondisplaced longitudinally oriented fracture involving the lateral aspect of the patella. PFSH All Active Problems (Updated 01/07/25 @ 13:25 by MONAE Espinoza) Fracture of right patella (Acute) Pain in right ankle (Acute) Pain, joint, foot, right (Acute) Congenital bilateral pes cavus (Acute) Peripheral vascular disease (Chronic) Neuroma (Acute) Hammertoe, bilateral (Acute) Bilateral bunions (Acute) Paronychia of fifth toe of left foot (Acute) Pes cavus of right foot (Acute) Degenerative joint disease, right, foot (Acute) Right ankle sprain (Acute) Degenerative joint disease of right knee (Chronic) Left knee DJD (Chronic) Rotator cuff arthropathy of right shoulder (Acute) Arthritis of right glenohumeral joint (Acute) Tendinopathy of left gluteal region (Acute) Patellofemoral arthritis of left knee (Acute) Tear of left gluteus medius tendon (Acute) 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 (Acute) Trochanteric bursitis, left hip (Acute) Left knee pain (Acute) Colovesical fistula (Acute) Bladder mass (Acute) Female bladder prolapse (Acute) Atypical chest pain (Acute) Abdominal pain (Acute) Trochanteric bursitis (Acute) Palpitations (Acute) Osteoarthritis (Chronic) Osteopenia (Acute) Varicose veins of lower extremities with other complications (Acute) Sinusitis (Acute) Insomnia (Acute) Depression (Chronic) Former tobacco use (Acute) Vaginal atrophy (Acute) Cystocele, midline (Acute) Pneumaturia (Acute) Medical History Altered bowel function Allergic rhinitis GERD (gastroesophageal reflux disease) Hiatal hernia Diverticulitis Surgical History H/O total hip arthroplasty right Hx of fracture of clavicle repaired w/plate per patient History of colonoscopy History of knee surgery H/O shoulder surgery Family History (Updated 01/08/25 @ 18:11 by Dipika Armijo MA) Mother Emphysema lung Stroke Father Parathyroid cancer Brother Brain bleed Brother Emphysema lung Diabetes Maternal Grandmother Stroke Maternal Grandfather Heart disease COPD (chronic obstructive pulmonary disease) Paternal Grandfather Heart disease Social History (Updated 01/08/25 @ 18:06 by Dipika Armijo MA) Smoking/Tobacco Use Status: Former Tobacco Use Quit Date: 02/14/07 Smoking risk assessment performed?: Yes Alcohol Intake: former Drug use: Never Substance use type: does not use Adopted: No Caregiver/Support person: No Household members: spouse Housing: house Number of Children: 1 Communication Needs: None Education Level: master's degree Do you need help understanding health information?: Rarely current occupation: Retired Pets and animals: No Do you think of yourself as: straight/heterosexual Current gender identity: female What is your relationship status?: How often do you talk on the phone with friends or family?: three or more times per week How often do you get together with friends or relatives?: once per week How often do you attend orthodoxy or taoism services?: 4 or more times per year Do you belong to any clubs or organized social groups?: yes Panel score (0-1 are the most socially isolated patients): 4 What type of physical activity do you participate in: walking and swimming Duration: 30-45 minutes/day Frequency: 5-6 times per week Ella/Quaker: Mu-Ism Special ella needs: No Agree to transfusion: Yes Seatbelt use: always Helmet use: Yes Drive intox or ride w/intox distribution driver: No Working smoke detector in home: Yes Carbon monox detector in home: Yes Firearms in home: No Do you feel safe at home: Yes Do you feel safe in your relationship?: Yes Victim of physical abuse: No Victim of emotional abuse: No Victim of sexual abuse: No Would you like helpful sources: No History History 2 Para 1 Hx # Term Pregnancies 1 Multiple births Hx # Pregnancies Ectopic pregnancies AB induced Hx Number of Living Children 1 AB spontaneous
== END 2025-01-07 16:18 | disposition home or self-care (01) ==
PROVIDERS: Emergency Provider Physician Assistant; PCP Family Medicine
DX: S82.001A Unspecified fracture of right patella, initial encounter for closed fracture (principal); X58.XXXA Exposure to other specified factors, initial encounter
CPT/HCPCS: 99283 ×2; 73564

== ENCOUNTER 2025-01-15 15:25 | Outpatient (CLI) | payer MEDICARE, OTHER, SELFPAY ==
--- NOTE | 2025-01-15 11:30 | DI.RAD_ITS ---
Exam(s) XR KNEE RT 2V AP,LAT EXAM: XR KNEE RT 2V AP,LAT CLINICAL HISTORY: F/U FRACTURE. TECHNIQUE: 2D digital imaging was performed of the right knee. Three views obtained. AP and lateral views were obtained. COMPARISON: CR XR KNEE RT 4V AP,LAT,ODETTE,PAT from 01/07/2025 FINDINGS: BONES: There is no change in alignment of the fracture involving the lateral aspect of the patella. No bony destructive lesion is seen. JOINTS: Tricompartment degenerative changes are present characterized by asymmetric joint space narrowing and osteophytes. There is chondrocalcinosis in the femoral tibial joint. No joint effusion is seen. SOFT TISSUE: Normal. IMPRESSION: Stable nondisplaced patellar fracture. DATA REPOSITORY: RADIATION DOSE DELIVERED:
== END 2025-01-15 15:26 | disposition home or self-care (01) ==
LOC: DIORS 15:25
PROVIDERS: PCP Family Medicine; Referring Provider Family Medicine; Visit Provider Student in an Organized Health Care Education/Training Program
DX: S82.001A Unspecified fracture of right patella, initial encounter for closed fracture (principal); W19.XXXA Unspecified fall, initial encounter; M17.11 Unilateral primary osteoarthritis, right knee
CPT/HCPCS: 99213; 73560

== ENCOUNTER → 2025-01-30 09:44 | Outpatient (BNVA) | payer MEDICARE, OTHER, SELFPAY | PROVIDERS: PCP Family Medicine; Referring Provider Family Medicine; Visit Provider Podiatrist | DX: L84 Corns and callosities (principal); M79.674 Pain in right toe(s); M79.672 Pain in left foot; M19.071 Primary osteoarthritis, right ankle and foot; I73.89 Other specified peripheral vascular diseases; L85.8 Other specified epidermal thickening; L60.8 Other nail disorders; L65.9 Nonscarring hair loss, unspecified; R20.8 Other disturbances of skin sensation; M25.674 Stiffness of right foot, not elsewhere classified; M20.41 Other hammer toe(s) (acquired), right foot; M20.42 Other hammer toe(s) (acquired), left foot; I83.93 Asymptomatic varicose veins of bilateral lower extremities; L60.2 Onychogryphosis | CPT/HCPCS: 11055 ==